=== PATIENT | female | born 1940 | race Caucasian/White ===

== ENCOUNTER → 2016-10-01 | Outpatient (CLI) | payer MEDICARE, MEDICAID ==
[~2016-10-01] MED LIST: ACET-2267 PO; AMLO5TAB2 PO; AZIT250T5 PO; CALC600T12 PO; CHOL378P3 PO; CITA10TA7 PO; DEXT1TAB3 PO; ESTR10TA VG; ESTR42.52 VG; FLUT9.9S NS; HYDR-3812 PO; LISI-552 PO; LORA0.5T PO; MELO-170 PO; MONT10TA24 PO; MULT-35 PO; OMEP20CA12 PO; ONDA8TAB9 PO; POLY17PO6 PO; PRAV40TA2 PO; QUET100T PO; RIVA1.5C6 PO
== END ==
LOC: PREOP 05:35
PROVIDERS: ATTEND Internal Medicine
DX: Z01.818 Encounter for other preprocedural examination (principal); K58.9 Irritable bowel syndrome, unspecified; R10.12 Left upper quadrant pain; R10.32 Left lower quadrant pain; Z86.010 Personal history of colon polyps

== ENCOUNTER 2016-10-03 06:43 | Day surgery (SDC) | payer MEDICARE, MEDICAID ==
[~2016-10-03] VITALS: Ht 160 cm; Wt 81.6 kg
[~2016-10-03 06:43] MED LIST changes: -ACET-2267 PO; -AMLO5TAB2 PO; -CALC600T12 PO; -CHOL378P3 PO; -CITA10TA7 PO; -DEXT1TAB3 PO; -ESTR10TA VG; -ESTR42.52 VG; -HYDR-3812 PO; -LISI-552 PO; -LORA0.5T PO; -MELO-170 PO; -MONT10TA24 PO; -MULT-35 PO; -OMEP20CA12 PO; -POLY17PO6 PO; -PRAV40TA2 PO; -QUET100T PO; -RIVA1.5C6 PO
[2016-10-03] MEDS ORDERED: 1/2 NS IV SOLUTION 1,000 ML IV STA (06:57)
[2016-10-03] MEDS ORDERED: LIDOCAINE JELLY 2% (XYLOCAINE) 5 ML TUBE MM PRN (07:00)
[2016-10-03] MEDS ORDERED: HURRICAINE EXT TUBE (BENZOCAINE) XX PRN (07:00)
[2016-10-03] MEDS ORDERED: MIDAZOLAM 2 MG/2 ML (VERSED) VIAL IVP PRN (07:00)
[2016-10-03] MEDS ORDERED: fentaNYL INJECTION 100 MCG/2 ML AMP IVP PRN (07:00)
[2016-10-03] MEDS ORDERED: FLUMAZENIL (ROMAZICON) 0.1 MG/ML 5 ML VIAL INJ PRN (07:00)
[2016-10-03] MEDS ORDERED: NALOXONE 0.4 MG/ML 1 ML (NARCAN) VIAL IVP PRN (07:00)
--- NOTE | 2016-10-03 07:10 | HISTORY AND PHYSICAL ---
DATE OF SERVICE: [facility] HISTORY AND PHYSICAL The patient is a 76-year-old, white female referred by Dr. Victoria for colonoscopy and EGD. She has a history of IBS and has been having increased left lower quadrant abdominal pain for the past 3 weeks. She has a past history for colon polyps and on her last colonoscopy several polyps were removed in 2009. It was performed in [facility]. She has also been having some left upper quadrant abdominal pain and has a history of perforated duodenal ulcer. She reports in the past, she has usually had an EGD at the time of her colonoscopy. At one time, she had to have her anastomotic margin dilated endoscopically. This was over 10 years ago. She has noted no blood in her stool or melena and denies weight change. She is a resident of [place], a local assisted living [facility]. She denies any medication change and has not been taking any aspirin. She apparently is on chronic proton pump inhibitor therapy. She is not on any aspirin therapy. She does take Meloxicam for arthritis and appears to be on no other potentially ulcerogenic medication. PAST SURGICAL HISTORY: Significant for past appendectomy, cholecystectomy, duodenal ulceration for perforation in 2005. She has had at least 1 nasal polyp removed and deviated septum taken care of. She has had total abdominal hysterectomy for benign reasons and has had right shoulder surgery. PAST MEDICAL HISTORY: Significant for hyperlipidemia and hypertension. She does have reported mild dementia for which she is on medication as she has a past history of generalized anxiety. SOCIAL HISTORY: She moved a little over a year ago from [facility], reports no past smoking history with occasional alcohol intake. It should also be noted that she does have some underlying COPD secondary to alpha-1 antitrypsin deficiency, is apparently mild and she has not required treatment at this point. FAMILY HISTORY: She knows that she has 1 sister who of pulmonary embolism at the age of 67. She is unsure of her parents family history, personal health history. MEDICATIONS ON ADMISSION: 1. Omeprazole 20 mg with breakfast. 2. Calcium 600 mg daily. 3. Multivitamin daily. 4. Citalopram 3 mg daily. 5. Meloxicam 7.5 mg daily. 6. MiraLax 17 grams daily. 7. Lorazepam 0.5 mg b.i.d. 8. Lisinopril 20 mg daily. 9. Rivastigmine 1.5 mg b.i.d. 10. Pravastatin 40 mg daily. 11. Singulair 10 mg daily. 12. Amlodipine 5 mg daily. 13. Seroquel 100 mg at bed time. 14. Questran 1 packet with fluid daily. 15. P.r.n. Tylenol. 16. Coricidin. 17. Hydrocodone 5 mg. 18. Estrace vaginal cream that she applies to the outer vaginal area at bed time. 19. She also uses Vagifem 2 times weekly 10 mcg. PHYSICAL EXAMINATION: Reveals an obese, white female who appears to be in no acute distress. Weight is 203.6 pounds. Blood pressure is 176/80 at the beginning of the interview. At the end of the interview, she was 148/72. CHEST: Clear. CARDIOVASCULAR: Regular rate and rhythm without murmur, S3 or S4. ABDOMEN: Soft, supple. She has left upper quadrant, as well as left lower quadrant and epigastric discomfort to palpation. There is some rebound in the left upper quadrant area. No mass or organomegaly are appreciated, but this is difficult to determine somewhat due to body habitus. EXTREMITIES: Reveal no clubbing, cyanosis or edema. ASSESSMENT: The patient is set up for diagnostic colonoscopy due to past history of colon polyps and left lower quadrant abdominal pain. She has required sedation in the form of Diprivan in the past due to her IBS and due to the fact that she is a difficult intubation. Apparently, she has required endoscopic guidance. Will be performing EGD for evaluation of her past history of peptic ulcer disease with current epigastric pain and risk factors for ulceration including SSRI therapy with Meloxicam. She is a pleasant, but talkative white female in review of her medical record, today's evaluation. 50 minutes of my personal care time has been spent with another 15-20 minutes of staff time in the setting of the procedure and going over the prep instructions with the patient. She was set up for this 10/03/2016. I thank you for the referral of this pleasant lady. Job ID: [id number] DocumentID: [id number] Dictated Date: 09/29/2016 20:59:34 Director Of Medical Services Date: 09/29/2016 21:55:58 Dictated By: LIZZY CORDOBA MD [facility]
[2016-10-03] MEDS ORDERED: MIDAZOLAM 2 MG/2 ML (VERSED) VIAL ONE (07:33)
[2016-10-03] MEDS ORDERED: PROPOFOL INJECTION 50 ML IV ONE (07:33)
[2016-10-03 07:36] VITALS: BP 140/76
[2016-10-03] MEDS ORDERED: CALC600T12 PO (07:41)
[2016-10-03] MEDS ORDERED: OMEP20CA12 PO (07:41)
--- NOTE | 2016-10-03 07:43 | Pre-Op Note & Conscious Sedat ---
Pre-Operative Progress Note H&P Reviewed The H&P was reviewed, patient examined and no changes noted. Date H&P Reviewed: Oct 03, 2016 Time H&P Reviewed: 07:42 Conscious Sedation Pre-Proced ASA Class: 2 Airway Mallampati Classification: ([place] appropriate class) I. II. III, IV Lungs Heart ASA score ASA 1: a normal healthy patient ASA 2: a patient with a mild systemic disease (mid diabetes, controlled hypertension, obesity ASA 3: a patient with a severe systemic disease that limits activity (angina , COPD, prior Myocardial infarction) ASA 4: a patient with an incapacitating disease that is a constant threat to life (CHF, renal failure) ASA 5: a moribund patient not expected to survive 24 hrs. (ruptured aneurysm) ASA 6: a declared brain patient whose organs are being harvested. For emergent operations, add the letter E after the classification Grade 3 Sedation Plan: Analgesia, Amnesia, Plan communicated to team members, Discussed options with patient/fam, Discussed risks with patient/fam Note The patient is an appropriate candidate to undergo the planned procedure, sedation, and anesthesia. The patient immediately re-assessed prior to indication. LIZZY CORDOBA MD Oct 03, 2016 07:43
[2016-10-03] MEDS ORDERED: HURRICAINE EXT TUBE (BENZOCAINE) ONE (07:48)
[2016-10-03] MEDS ORDERED: LIDOCAINE JELLY 2% (XYLOCAINE) 5 ML TUBE ONE (07:48)
[2016-10-03] MEDS ORDERED: MULT-35 PO (07:53)
[2016-10-03] MEDS ORDERED: PRAV40TA2 PO (07:53)
[2016-10-03] MEDS ORDERED: CHOL378P3 PO (07:53)
[2016-10-03] MEDS ORDERED: LORA0.5T PO (07:53)
[2016-10-03] MEDS ORDERED: ACET-2267 PO (07:53)
[2016-10-03] MEDS ORDERED: RIVA1.5C6 PO (07:53)
[2016-10-03] MEDS ORDERED: CITA10TA7 PO (07:53)
[2016-10-03] MEDS ORDERED: MONT10TA24 PO (07:53)
[2016-10-03] MEDS ORDERED: MELO-170 PO (07:53)
[2016-10-03] MEDS ORDERED: AMLO5TAB2 PO (07:53)
[2016-10-03] MEDS ORDERED: LISI-552 PO (07:53)
[2016-10-03] MEDS ORDERED: ESTR42.52 VG (07:58)
[2016-10-03] MEDS ORDERED: QUET100T PO (07:58)
[2016-10-03] MEDS ORDERED: ESTR10TA VG (07:58)
[2016-10-03] MEDS ORDERED: HYDR-3812 PO (07:58)
[2016-10-03] MEDS ORDERED: POLY17PO6 PO (07:58)
[2016-10-03] MEDS ORDERED: DEXT1TAB3 PO (07:58)
[2016-10-03 08:45] VITALS: BP 129/84
[2016-10-03 09:30] VITALS: BP 160/65
[2016-10-03 09:44] VITALS: BP 160/65
--- NOTE | 2016-10-03 16:16 | OPERATIVE REPORT ---
DATE OF SERVICE: 10/03/2016 PROCEDURE: [facility]. The patient underwent diagnostic colonoscopy due to history of left lower quadrant abdominal pain and a past history of colon polyps. EGD was performed for evaluation of left upper quadrant abdominal pain and a past history of duodenal ulceration with risk factors including chronic combined nonsteroidal therapy and SSRI therapy. The patient was placed in the left lateral decubitus position. Prior to undergoing colonoscopy, digital rectal evaluation was performed. Anal sphincter tone was normal and the perianal reflex was intact. Rectocele was noted on digital inspection with no other abnormalities being noted. The colonoscope was then inserted into the rectum and under direct visualization advanced to the cecum. The cecum was identified by the mucus in the ileocecal valve and the cecal strap and the appendiceal orifice. Photographic documentation was obtained. Careful inspection was made as the colonoscope was withdrawn. There was no evidence for internal or external hemorrhoids. The rectum was unremarkable. Mild diverticular disease was present with moderate haustral hypertrophy involving the sigmoid colon only. No other sigmoid colonic abnormalities were appreciated. There was no evidence to suggest diverticulitis. The descending colon, transverse colon and hepatic flexure were unremarkable. There was questionable sessile polyp just distal to the ileocecal valve in the distal ascending colon. Photograph was obtained and then biopsy and cauterization was performed with a hot forceps. There was no subsequent bleeding. The cecum of the colon was unremarkable. ASSESSMENT: 1. Mild diverticular disease confined to the sigmoid colon was present without evidence for diverticulitis. 2. Questionable sessile polyp in the proximal ascending colon just distal to the ileocecal valve for which the patient underwent biopsy and cauterization with hot forceps. As long as there are no surprised on histopathology report, would not be advocating future surveillance colonoscopy considering this patient's age and medical comorbidities. We then proceeded with an EGD. The endoscope was inserted into the oral cavity and under direct visualization the esophagus was intubated. The endoscope was passed down the esophagus to the stomach and second portion of the duodenum. Careful inspection was made as the endoscope was withdrawn. The posterior hypopharynx, arytenoid aperture and true and false vocal folds were unremarkable. 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 The patient did have what appeared to be an upper traction diverticulum in the proximal esophagus. There was no retained food. It was relatively small in size. Tortuosity was present throughout the remainder of the esophagus which was otherwise unremarkable. The Z-line was proximally placed at 30 cm due to a large hiatal hernia. Approximately a third of the stomach is present above the level of the diaphragm. There was no evidence for erosive esophagitis or Holland's change. The cardia of the stomach was unremarkable. Present in the distal fundus was an 8 mm polyp with fundal features. It was photographed and biopsied and ablated with no significant blood loss. One other smaller fundal-type polyp was noted on the left. The remainder of the antrum, pylorus, pyloric channel, duodenal bulb and second portion of the duodenum were unremarkable with no evidence for peptic ulcer disease. ASSESSMENT: 1. A large hiatal hernia is present with approximately one-third of the stomach being present above the level of the diaphragm. There is no evidence for erosive esophagitis or Holland's change to visual inspection. 2. A fundal-appearing polyp was removed from the antrum via hot forceps and submitted for histopathology. There was no evidence for peptic ulcer disease on today's evaluation. The patient was reassured by today's findings. I thank you for the referral. Job ID: [id number] DocumentID: [id number] Dictated Date: 10/03/2016 08:36:22 Popcorn Vendor Date: 10/03/2016 16:15:50 Dictated By: LIZZY CORDOBA MD [facility]
== END 2016-10-03 09:51 | disposition home or self-care (01) ==
LOC: ENDO 06:43
PROVIDERS: ATTEND Internal Medicine
DX: K63.5 Polyp of colon (principal); K57.30 Diverticulosis of large intestine without perforation or abscess without bleeding; K21.9 Gastro-esophageal reflux disease without esophagitis; K44.9 Diaphragmatic hernia without obstruction or gangrene; K31.7 Polyp of stomach and duodenum
CPT/HCPCS: 88305

== ENCOUNTER → 2016-11-04 | Outpatient (CLI) | payer MEDICARE, MEDICAID ==
[~2016-11-04] MED LIST changes: +ACET-2267 PO; +AMLO5TAB2 PO; +CALC600T12 PO; +CHOL378P3 PO; +CITA10TA7 PO; +DEXT1TAB3 PO; +ESTR10TA VG; +ESTR42.52 VG; +HYDR-3812 PO; +LISI-552 PO; +LORA0.5T PO; +MELO-170 PO; +MONT10TA24 PO; +MULT-35 PO; +OMEP20CA12 PO; +POLY17PO6 PO; +PRAV40TA2 PO; +QUET100T PO; +RIVA1.5C6 PO
== END ==
LOC: RAD 13:28
PROVIDERS: ATTEND Obstetrics & Gynecology
DX: Z12.31 Encounter for screening mammogram for malignant neoplasm of breast (principal)
CPT/HCPCS: 77067

== ENCOUNTER → 2017-05-21 | Outpatient (CLI) | payer MEDICARE, MEDICAID ==
[~2017-05-21] MED LIST changes: +AZIT250T12 PO; -AZIT250T5 PO
--- NOTE | 2017-05-21 11:40 | Diagnostic Imaging Report ---
EXAMINATION: DEXA scan. INDICATION: Osteopenia. TECHNIQUE: Bone mineral density estimated based on dual energy radiography over the lumbar spine and femoral necks, was performed. FINDINGS: The lumbar spine T-score is -2. T score over the left femoral neck is -1.1 and on the right side is -1.5. IMPRESSION: Osteopenia. Dictated by: Dictated on workstation # [id number]
== END ==
LOC: RAD 10:29
PROVIDERS: ATTEND Internal Medicine
DX: M85.88 Other specified disorders of bone density and structure, other site (principal); M48.50XA Collapsed vertebra, not elsewhere classified, site unspecified, initial encounter for fracture
CPT/HCPCS: 77080

== ENCOUNTER 2017-07-13 11:01 | Inpatient (IN) | payer MEDICARE, MEDICAID ==
[~2017-07-13] VITALS: Ht 160 cm; Wt 92.6 kg
[2017-07-13] VITALS (10 sets, daily range): BP systolic 102–166; BP diastolic 47–122
[~2017-07-13 11:01] MED LIST changes: +ACHD5005 PO; -HYDR-3812 PO
--- OUTSIDE RECORDS SUMMARY | 2017-07-13 11:07 | XMS REPORT ---
Author Author ESTEFANIA CLEMENTE [facility] Address [address] [place] [address] Care Team Providers Care Process Consultant Name Role Phone ESTEFANIA CLEMENTE Unavailable PROBLEMS Type Condition ICD9-CM Code [id number] Code Onset Dates Condition Status SNOMED Code Problem Asthma J45.909 Active 176896665 Problem Irritable bowel syndrome with diarrhea K58.0 Active 816576750 Problem Hypertension I10 Active 55914219 Problem Adenomatous polyp of colon, unspecified part of colon D12.6 Active 619608410 Problem Reactive depression F32.9 Active 16050897 Problem Seborrheic keratoses L82.1 Active 397279539 Problem Chronic post-traumatic headache, not intractable G44.329 Active 004188000 Problem Degenerative disc disease, 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 Active 87957205 Problem Asthma exacerbation J45.901 Active 180545524 Problem Shortness of breath R06.02 Active 135264090 Problem Pneumonia J18.9 Active 809403832 Problem Memory loss R41.3 Active 65464810 Problem Anxiety F41.9 Active 39492258 Problem Arthritis M19.90 Active 0946905 Problem Fatigue R53.83 Active 65129779 Problem GERD (gastroesophageal reflux disease) K21.9 Active 133002429 ALLERGIES Substance Reaction Event Type Date Status Tetracycline HCl Unknown Drug Allergy Jun, Active Penicillin G Potassium Unknown Drug Allergy Jun, Active Paxil Unknown Drug Allergy Jun, Active Morphine Sulfate Unknown Drug Allergy Jun, Active Ketorolac Tromethamine Unknown Drug Allergy Jun, Active SOCIAL HISTORY No smoking Hx information available PLAN OF CARE Activity Details Follow Up 3 Weeks Reason: VITAL SIGNS Height 63 in 2016-07-07 Weight 191.7 lbs 2016-07-07 Temperature 98.4 degrees Fahrenheit 2016-07-07 Heart Rate 80 bpm 2016-07-07 Respiratory Rate 20 2016-07-07 Oximetry 98 % 2016-07-07 BMI 33.95 kg/m2 2016-07-07 Blood pressure systolic 150 mmHg 2016-07-07 Blood pressure diastolic 90 mmHg 2016-07-07 MEDICATIONS Medication Instructions Dosage Frequency Start Date End Date Duration Status Sylvia HBP Congestion/Cough 10-200 MG Orally every 4 hrs 1 capsule as needed 4h Active Rivastigmine Tartrate 1.5 MG Orally Twice a day 1 capsule with food 12h Active Montelukast Sodium 10 MG Orally Once a day 1 tablet in the evening 24h Active Melatonin 3 MG Orally Once a day 1 tablet at bedtime as needed with food 24h Active Vagifem 10 MCG Vaginal Two times a Week 1 tablet Active Pravastatin Sodium 40 MG Orally Once a day 1 tablet 24h Active Benadryl 25 MG Active Lisinopril 20 mg Orally BID 1 tablet 12h Active Questran 4 GM Orally Once a day 1 packet mixed with water or non-carbonated drink 24h Nov, Active Multivitamin Adults 50+ Active Tylenol 8 Hour 500 mg Orally every 4 hours as needed Active Calcium + D3 600.400 mg Active Amlodipine Besylate 5 mg Orally Once a day 1 tablet 24h Active Mobic 7.5 MG Orally Once a day 1 tablet 24h Jan, Active Citalopram Hydrobromide 20 MG Orally Once a day 1 tablet 24h Active Estrace 0.1 MG/GM Active Omeprazole 20 mg Orally Once a day 1 capsules 24h Active Flonase Allergy Relief 50 MCG/ACT Nasally Once a day 1 spray in each nostril 24h Active Lorazepam 1 MG Orally 2 times a day and PRN for anxiousness 1/2 tablet as needed Active RESULTS No Results PROCEDURES Procedure Date Ordered Related Diagnosis Body Site MEASURE BLOOD OXYGEN LEVEL Jul 07, 2016 [facility] VISIT ESTABLISHED PATIENT Jul 07, 2016 Office Visit, Est Pt., Level 3 Jul 07, 2016 IMMUNIZATIONS No Known Immunizations
--- OUTSIDE RECORDS SUMMARY | 2017-07-13 11:07 | XMS REPORT ---
Author Author ESTEFANIA CLEMENTE [facility] Address [address] [place] [address] Care Team Providers Care Health Advocate Name Role Phone ESTEFANIA CLEMENTE Unavailable PROBLEMS Type Condition ICD9-CM Code [id number] Code Onset Dates Condition Status SNOMED Code Problem Asthma J45.909 Active 896087491 Problem Irritable bowel syndrome with diarrhea K58.0 Active 419322925 Problem Hypertension I10 Active 13053887 Problem Adenomatous polyp of colon, unspecified part of colon D12.6 Active 907605439 Problem Reactive depression F32.9 Active 22983127 Problem Seborrheic keratoses L82.1 Active 068705390 Problem Chronic post-traumatic headache, not intractable G44.329 Active 725272563 Problem Degenerative disc disease, 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 Active 27985489 Problem Asthma exacerbation J45.901 Active 101410094 Problem Shortness of breath R06.02 Active 579028566 Problem Pneumonia J18.9 Active 447141899 Problem Memory loss R41.3 Active 20339474 Problem Anxiety F41.9 Active 37344828 Problem Arthritis M19.90 Active 5080160 Problem Fatigue R53.83 Active 92259814 Problem GERD (gastroesophageal reflux disease) K21.9 Active 173629113 ALLERGIES Unknown Allergies SOCIAL HISTORY No smoking Hx information available PLAN OF CARE VITAL SIGNS MEDICATIONS Unknown Medications RESULTS No Results PROCEDURES No Known procedures IMMUNIZATIONS No Known Immunizations
--- OUTSIDE RECORDS SUMMARY | 2017-07-13 11:07 | XMS REPORT ---
Author Author ESTEFANIA CLEMENTE [facility] Address [address] [place] [address] Care Team Providers Care Rn Medicare Name Role Phone ESTEFANIA CLEMENTE Unavailable PROBLEMS Type Condition ICD9-CM Code [id number] Code Onset Dates Condition Status SNOMED Code Problem Asthma J45.909 Active 280439467 Problem Irritable bowel syndrome with diarrhea K58.0 Active 841431575 Problem Hypertension I10 Active 98609119 Problem Adenomatous polyp of colon, unspecified part of colon D12.6 Active 758087258 Problem Reactive depression F32.9 Active 40934584 Problem Seborrheic keratoses L82.1 Active 613727243 Problem Chronic post-traumatic headache, not intractable G44.329 Active 930950443 Problem Degenerative disc disease, 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 Active 66524652 Problem Asthma exacerbation J45.901 Active 593613942 Problem Shortness of breath R06.02 Active 089430101 Problem Pneumonia J18.9 Active 049760916 Problem Memory loss R41.3 Active 21215405 Problem Anxiety F41.9 Active 33451723 Problem Arthritis M19.90 Active 8768749 Problem Fatigue R53.83 Active 18291484 Problem GERD (gastroesophageal reflux disease) K21.9 Active 609775813 ALLERGIES Substance Reaction Event Type Date Status Tetracycline HCl Unknown Drug Allergy Jun, Active Penicillin G Potassium Unknown Drug Allergy Jun, Active Paxil Unknown Drug Allergy Jun, Active Morphine Sulfate Unknown Drug Allergy Jun, Active Ketorolac Tromethamine Unknown Drug Allergy Jun, Active SOCIAL HISTORY No smoking Hx information available PLAN OF CARE Activity Details Follow Up 3 Months Reason: VITAL SIGNS Height 63 in 2016-06-12 Weight 193.8 lbs 2016-06-12 Temperature 99.0 degrees Fahrenheit 2016-06-12 Heart Rate 68 bpm 2016-06-12 Respiratory Rate 18 2016-06-12 Oximetry 98 % 2016-06-12 BMI 34.33 kg/m2 2016-06-12 Blood pressure systolic 140 mmHg 2016-06-12 Blood pressure diastolic 76 mmHg 2016-06-12 MEDICATIONS Medication Instructions Dosage Frequency Start Date End Date Duration Status Calcium + D3 600.400 mg Active Mobic 7.5 MG Orally Once a day 1 tablet 24h Jan, Active Montelukast Sodium 10 MG Orally Once a day 1 tablet in the evening 24h Active Pravastatin Sodium 40 MG Orally Once a day 1 tablet 24h Active Questran 4 GM Orally Once a day 1 packet mixed with water or non-carbonated drink 24h Nov, Active Lorazepam 1 MG Orally Once a day 24h Active Amlodipine Besylate 5 mg Orally Once a day 1 tablet 24h Active Multivitamin Adults 50+ Active Lorazepam 1 MG Orally Once a day at HS 1/2 tablet as needed Active Lisinopril 20 mg Orally BID 1 tablet 12h Active Benadryl 25 MG Active Tylenol 8 Hour 500 mg Orally every 4 hours as needed Active Melatonin 3 MG Orally Once a day 1 tablet at bedtime as needed with food 24h Active Omeprazole 20 mg Orally Once a day 1 capsules 24h Active Citalopram Hydrobromide 20 MG Orally Once a day 1 tablet 24h Active Rivastigmine Tartrate 3 MG Orally Twice a day 1 capsule with food 12h Active RESULTS No Results PROCEDURES Procedure Date Ordered Related Diagnosis Body Site MEASURE BLOOD OXYGEN LEVEL Jun 12, 2016 [facility] VISIT ESTABLISHED PATIENT Jun 12, 2016 Office Visit, Est Pt., Level 3 Jun 12, 2016 IMMUNIZATIONS No Known Immunizations
--- OUTSIDE RECORDS SUMMARY | 2017-07-13 11:08 | XMS REPORT | Continuity of Care Document ---
Author Author [facility] Organization [facility] Address Unknown Phone Unavailable Allergies Active Description Code Type Severity Reaction Onset Reported/Identified Relationship to Patient Clinical Status Yes ketorolac [id number] Drug Allergy Mild N/A 08/13/2015 Yes morphine [id number] Drug Allergy Mild N/A 08/13/2015 Yes Penicillins [id number] Drug Allergy Mild N/A 08/13/2015 Yes tetracycline [id number] Drug Allergy Mild N/A 08/13/2015 Yes paroxetine [id number] Drug Allergy Unknown N/A 02/24/2016 Medications There is no data. Problems Date Dx Coded Attending Type Code Diagnosis Diagnosed By 08/13/2015 VARGAS DURAND DO Ot F41.9 ANXIETY DISORDER, UNSPECIFIED 08/13/2015 KIZZY LEONG, VARGAS L Ot I51.7 CARDIOMEGALY 08/13/2015 KIZZY LEONG, VARGAS L Ot J40 BRONCHITIS, NOT SPECIFIED ACUTE OR CH 08/13/2015 KIZZY LEONG VARGAS L Ot K21.9 GASTRO-ESOPHAGEAL REFLUX DISEASE WITHOUT 08/19/2015 KIZZY LEONG, VARGAS L Ot F41.9 08/19/2015 KIZZY DO, VARGAS L Ot I51.7 08/19/2015 KIZZY LEONG, VARGAS L Ot J40 08/19/2015 KIZZY LEONG VARGAS L Ot K21.9 11/24/2015 ODILIA LAKE DO, Ot F41.9 ANXIETY DISORDER, UNSPECIFIED 11/24/2015 ODILIA LAKE DO Ot S01.112A LACERATION W/O FB OF LEFT EYELID AND PER 11/24/2015 ODILIA LAKE DO Ot S02.8XXA FRACTURES OF OTH SKULL AND FACIAL BONES, 11/24/2015 ODILIA LAKE DO Ot S06.0X0A CONCUSSION WITHOUT LOSS OF CONSCIOUSNESS 11/24/2015 ODILIA LAKE DO Ot W17.89XA OTHER FALL FROM ONE LEVEL TO ANOTHER, IN 11/24/2015 [facility], ODILIA K Ot Y92.[address] IN SINGLE-FAMILY (PRIVATE) JUANCARLOS 11/24/2015 JAYA , ODILIA K Ot Y99.8 OTHER EXTERNAL CAUSE STATUS 11/26/2015 [place] , ODILIA Baptiste Ot F41.9 ANXIETY DISORDER, UNSPECIFIED 11/26/2015 [place] DO, ODILIA K Ot S01.112A LACERATION W/O FB OF LEFT EYELID AND PER 11/26/2015 [place] DO, ODILIA K Ot S02.8XXA FRACTURES OF OTH SKULL AND FACIAL BONES, 11/26/2015 [place] DO, ODILIA K Ot S06.0X0A CONCUSSION WITHOUT LOSS OF CONSCIOUSNESS 11/26/2015 [facility], ODILIA K Ot W17.89XA OTHER FALL FROM ONE LEVEL TO ANOTHER, IN 11/26/2015 [facility], ODILIA K Ot Y92.[address] IN SINGLE-FAMILY (PRIVATE) JUANCARLOS 11/26/2015 JAYA , ODILIA K Ot Y99.8 OTHER EXTERNAL CAUSE STATUS 12/07/2015 [place] , ODILIA Baptiste Ot F41.9 ANXIETY DISORDER, UNSPECIFIED 12/07/2015 [place] DO, ODILIA K Ot S01.112A LACERATION W/O FB OF LEFT EYELID AND PER 12/07/2015 [facility], ODILIA K Ot S02.8XXA FRACTURES OF OTH SKULL AND FACIAL BONES, 12/07/2015 [facility], ODILIA K Ot S06.0X0A CONCUSSION WITHOUT LOSS OF CONSCIOUSNESS 12/07/2015 [facility], ODILIA K Ot W17.89XA OTHER FALL FROM ONE LEVEL TO ANOTHER, IN 12/07/2015 [facility], ODILIA K Ot Y92.[address] IN SINGLE-FAMILY (PRIVATE) JUANCARLOS 12/07/2015 JAYA , ODILIA K Ot Y99.8 OTHER EXTERNAL CAUSE STATUS 01/02/2016 JUANJO KEATING, DARCI P Ot 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 01/02/2016 JUANJO KEATING, DARCI P Ot R51 HEADACHE 01/07/2016 JUANJO KEATING, DARCI Hartmann Ot 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 01/07/2016 JUANJO KEATING, DARCI P Ot R51 HEADACHE 01/07/2016 JUANJO KEATING, DARCI Hartmann Ot 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 01/07/2016 JUANJO KEATING, DARCI P Ot R51 HEADACHE 01/22/2016 JUANJO KEATING, DARCI P Ot 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 01/22/2016 JUANJO KEATING, DARCI P Ot R51 HEADACHE 01/30/2016 JUANOJ KEATING, DARCI P Ot 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 01/30/2016 JUANJO KEATING, DARCI P Ot R51 HEADACHE 02/07/2016 JUANJO KEATING, DARCI P Ot 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 02/07/2016 JUANJO KEATING, DARCI P Ot R51 HEADACHE 02/24/2016 BOYD KEATING, SPIKE T Ot F41.9 ANXIETY DISORDER, UNSPECIFIED 02/24/2016 BOYD KEATING, SPIKE T Ot I10 ESSENTIAL (PRIMARY) HYPERTENSION 02/24/2016 BOYD KEATING, SPIKE T Ot R51 HEADACHE 02/25/2016 BOYD KEATING, SPIKE T Ot F41.9 ANXIETY DISORDER, UNSPECIFIED 02/25/2016 BOYD KEATING, SPIKE T Ot I10 ESSENTIAL (PRIMARY) HYPERTENSION 02/25/2016 BOYD KEATING, SPIKE T Ot R51 HEADACHE 03/08/2016 BOYD KEATING, SPIKE T Ot F41.9 ANXIETY DISORDER, UNSPECIFIED 03/08/2016 BOYD KEATING, SPIKE T Ot I10 ESSENTIAL (PRIMARY) HYPERTENSION 03/08/2016 BOYD KEATING, SPIKE T Ot R51 HEADACHE 10/03/2016 JUANJO KEATING, DARCI P Ot 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 10/03/2016 JUANJO KEATING, DARCI P Ot R51 HEADACHE 10/03/2016 BERYL KEATING, LIZZY Aguilar Ot K58.9 IRRITABLE BOWEL SYNDROME WITHOUT DIARRHE 10/03/2016 BERYL KEATING, LIZZY Aguilar Ot R10.12 LEFT UPPER QUADRANT PAIN 10/03/2016 BERYL KEATING, LIZZY Aguilar Ot R10.32 LEFT LOWER QUADRANT PAIN 10/03/2016 BERYL KEATING, LIZZY Aguilar Ot Z01.818 ENCOUNTER FOR OTHER PREPROCEDURAL EXAMIN 10/03/2016 BERYL KEATING, LIZZY Aguilar Ot Z86.010 PERSONAL HISTORY OF COLONIC POLYPS 10/03/2016 JUANJO KEATING, DARCI P Ot 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 10/03/2016 JUANJO KEATING, DARCI P Ot R51 HEADACHE 10/03/2016 BERYL KEATING, LIZZY Aguilar Ot K58.9 IRRITABLE BOWEL SYNDROME WITHOUT DIARRHE 10/03/2016 LIZZY CORDOBA MD Ot R10.12 LEFT UPPER QUADRANT PAIN 10/03/2016 LIZZY CORDOBA MD Ot R10.32 LEFT LOWER QUADRANT PAIN 10/03/2016 LIZZY CORDOBA MD Ot Z01.818 ENCOUNTER FOR OTHER PREPROCEDURAL EXAMIN 10/03/2016 LIZZY CORDOBA MD Ot Z86.010 PERSONAL HISTORY OF COLONIC POLYPS 10/03/2016 LIZZY CORDOBA MD Ot K21.9 GASTRO-ESOPHAGEAL REFLUX DISEASE WITHOUT 10/03/2016 LIZZY CORDOBA MD Ot K31.7 POLYP OF STOMACH AND DUODENUM 10/03/2016 LIZZY CORDOBA MD Ot K44.9 DIAPHRAGMATIC HERNIA WITHOUT OBSTRUCTION 10/03/2016 LIZZY CORDOBA MD Ot K57.30 DVRTCLOS OF LG INT W/O PERFORATION OR AB 10/03/2016 LIZZY CORDOBA MD Ot K63.5 POLYP OF COLON 10/07/2016 LIZZY CORDOBA MD Ot K21.9 GASTRO-ESOPHAGEAL REFLUX DISEASE WITHOUT 10/07/2016 LIZZY CORDOBA MD Ot K31.7 POLYP OF STOMACH AND DUODENUM 10/07/2016 LIZZY CORDOBA MD Ot K44.9 DIAPHRAGMATIC HERNIA WITHOUT OBSTRUCTION 10/07/2016 LIZZY CORDOBA MD Ot K57.30 DVRTCLOS OF LG INT W/O PERFORATION OR AB 10/07/2016 LIZZY CORDOBA MD Ot K63.5 POLYP OF COLON 10/09/2016 LIZZY CORDOBA MD Ot K21.9 GASTRO-ESOPHAGEAL REFLUX DISEASE WITHOUT 10/09/2016 LIZZY CORDOBA MD Ot K31.7 POLYP OF STOMACH AND DUODENUM 10/09/2016 LIZZY CORDOBA MD Ot K44.9 DIAPHRAGMATIC HERNIA WITHOUT OBSTRUCTION 10/09/2016 LIZZY CORDOBA MD Ot K57.30 DVRTCLOS OF LG INT W/O PERFORATION OR AB 10/09/2016 LIZZY CORDOBA MD Ot K63.5 POLYP OF COLON 10/09/2016 LIZZY CORDOBA MD Ot K21.9 GASTRO-ESOPHAGEAL REFLUX DISEASE WITHOUT 10/09/2016 LIZZY CORDOBA MD Ot K31.7 POLYP OF STOMACH AND DUODENUM 10/09/2016 LIZZY CORDOBA MD Ot K44.9 DIAPHRAGMATIC HERNIA WITHOUT OBSTRUCTION 10/09/2016 LIZZY CORDOBA MD Ot K57.30 DVRTCLOS OF LG INT W/O PERFORATION OR AB 10/09/2016 LIZZY CORDOBA MD Ot K63.5 POLYP OF COLON 10/31/2016 LOY HUGHES DO Ot Z12.39 ENCOUNTER FOR OTH SCREENING FOR MALIGNAN 10/31/2016 LOY HUGHES DO Ot Z12.31 ENCNTR SCREEN MAMMOGRAM FOR MALIGNANT NE 10/31/2016 LOY HUGHES DO Ot Z12.31 ENCNTR SCREEN MAMMOGRAM FOR MALIGNANT NE 11/04/2016 DARCI GEIGER MD Ot 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 11/04/2016 DARCI GEIGER MD Ot R51 HEADACHE 11/04/2016 LIZZY CORDOBA MD Ot K58.9 IRRITABLE BOWEL SYNDROME WITHOUT DIARRHE 11/04/2016 LIZZY CORDOBA MD Ot R10.12 LEFT UPPER QUADRANT PAIN 11/04/2016 LIZZY CORDOBA MD Ot R10.32 LEFT LOWER QUADRANT PAIN 11/04/2016 LIZZY CORDOBA MD Ot Z01.818 ENCOUNTER FOR OTHER PREPROCEDURAL EXAMIN 11/04/2016 LIZZY CORDOBA MD Ot Z86.010 PERSONAL HISTORY OF COLONIC POLYPS 11/04/2016 LOY HUGHES DO Ot Z12.31 ENCNTR SCREEN MAMMOGRAM FOR MALIGNANT NE 11/25/2016 LOY HUGHES DO Ot Z12.31 ENCNTR SCREEN MAMMOGRAM FOR MALIGNANT NE 12/25/2016 LOY HUGHES DO Ot Z12.31 ENCNTR SCREEN MAMMOGRAM FOR MALIGNANT NE 04/15/2017 ESTEFANIA CLEMENTE MD Ot M48.50XA COLLAPSED VERTEBRA, NEC, SITE UNSP, INIT 04/28/2017 ESTEFANIA CLEMENTE MD Ot M48.50XA COLLAPSED VERTEBRA, NEC, SITE UNSP, INIT 05/20/2017 ESTEFANIA CLEMENTE MD Ot M48.50XA COLLAPSED VERTEBRA, NEC, SITE UNSP, INIT 05/20/2017 LIZZY CORDOBA MD Ot K58.9 IRRITABLE BOWEL SYNDROME WITHOUT DIARRHE 05/20/2017 LIZZY CORDOBA MD Ot R10.12 LEFT UPPER QUADRANT PAIN 05/20/2017 LIZZY CORDOBA MD Ot R10.32 LEFT LOWER QUADRANT PAIN 05/20/2017 LIZZY CORDOBA MD Ot Z01.818 ENCOUNTER FOR OTHER PREPROCEDURAL EXAMIN 05/20/2017 BERYL KEATING, LIZZY Aguilar Ot Z86.010 PERSONAL HISTORY OF COLONIC POLYPS 05/20/2017 ELLEN LEONG, LOY Dao Ot Z12.31 ENCNTR SCREEN MAMMOGRAM FOR MALIGNANT NE 05/20/2017 BRYN KEATING, ESTEFANIA Dodd Ot M48.50XA COLLAPSED VERTEBRA, NEC, SITE UNSP, INIT 06/11/2017 ESTEFANIA CLEMENTE MD, Ot M48.50XA COLLAPSED VERTEBRA, NEC, SITE UNSP, INIT 06/11/2017 BRYN KEATING, ESTEFANIA Dodd Ot M85.88 [facility] DISRD OF BONE DENSITY AND STRUCTURE, 06/19/2017 ESTEFANIA CLEMENTE MD, Ot M48.50XA COLLAPSED VERTEBRA, NEC, SITE UNSP, INIT 06/19/2017 ESTEFANIA CLEMENTE MD, Ot M85.88 [facility] DISRD OF BONE DENSITY AND STRUCTURE, Procedures There is no data. Results Test Result Range Complete blood count (CBC) with automated white blood cell (WBC) differential - 02/24/16 20:33 Blood leukocytes automated count (number/volume) 11.9 10*3/uL 4.3-11.0 Blood erythrocytes automated count (number/volume) 4.47 10*6/uL 4.35-5.85 Venous blood hemoglobin measurement (mass/volume) 13.5 g/dL 11.5-16.0 Blood hematocrit (volume fraction) 39 % 35-52 Automated erythrocyte mean corpuscular volume 87 [foz_us] 80-99 Automated erythrocyte mean corpuscular hemoglobin (mass per erythrocyte) 30 pg 25-34 Automated erythrocyte mean corpuscular hemoglobin concentration measurement ( mass/volume) 35 g/dL 32-36 Automated erythrocyte distribution width ratio 13.8 % 10.0-14.5 Automated blood platelet count (count/volume) 416 10*3/uL 130-400 Automated blood platelet mean volume measurement 9.4 [foz_us] 7.4-10.4 Automated blood neutrophils/100 leukocytes 49 % 42-75 Automated blood lymphocytes/100 leukocytes 39 % 12-44 Blood monocytes/100 leukocytes 8 % 0-12 Automated blood eosinophils/100 leukocytes 3 % 0-10 Automated blood basophils/100 leukocytes 1 % 0-10 Blood neutrophils automated count (number/volume) 5.8 10*3 1.8-7.8 Blood lymphocytes automated count (number/volume) 4.7 10*3 1.0-4.0 Blood monocytes automated count (number/volume) 1.0 10*3 0.0-1.0 Automated eosinophil count 0.4 10*3/uL 0.0-0.3 Automated blood basophil count (count/volume) 0.1 10*3/uL 0.0-0.1 Whole blood basic metabolic panel - 02/24/16 20:33 Serum or plasma sodium measurement (moles/volume) 134 mmol/L 135-145 Serum or plasma potassium measurement (moles/volume) 4.0 mmol/L 3.6-5.0 Serum or plasma chloride measurement (moles/volume) 100 mmol/L 98-107 Carbon dioxide 19 mmol/L 21-32 Serum or plasma anion gap determination (moles/volume) 15 mmol/L 5-14 Serum or plasma urea nitrogen measurement (mass/volume) 16 mg/dL 7-18 Serum or plasma creatinine measurement (mass/volume) 0.85 mg/dL 0.60-1.30 Serum or plasma urea nitrogen/creatinine mass ratio 19 NRG Serum or plasma creatinine measurement with calculation of estimated glomerular filtration rate > NRG Serum or plasma glucose measurement (mass/volume) 97 mg/dL 70-105 Serum or plasma calcium measurement (mass/volume) 10.1 mg/dL 8.5-10.1 Serum or plasma thyrotropin measurement by detection limit <=0.05 miu/l (units/ volume) - 02/24/16 20:33 Serum or plasma thyrotropin measurement by detection limit <=0.05 miu/l (units/ volume) 2.31 u[iU]/mL 0.35-4.94 Complete urinalysis with reflex to culture - 02/24/16 21:04 Urine color determination YELLOW NRG Urine clarity determination CLEAR NRG Urine pH measurement by test strip 8 5-9 Specific gravity of urine by test strip 1.010 1.016- 1.022 Urine protein assay by test strip, semi-quantitative 2+ NEGATIVE Urine glucose detection by automated test strip NEGATIVE NEGATIVE Erythrocytes detection in urine sediment by light microscopy NEGATIVE NEGATIVE Urine ketones detection by automated test strip NEGATIVE NEGATIVE Urine nitrite detection by test strip NEGATIVE NEGATIVE Urine total bilirubin detection by test strip NEGATIVE NEGATIVE Urine urobilinogen measurement by automated test strip (mass/volume) NORMAL NORMAL Urine leukocyte esterase detection by dipstick NEGATIVE NEGATIVE Automated urine sediment erythrocyte count by microscopy (number/high power field) NONE NRG Automated urine sediment leukocyte count by microscopy (number/high power field ) NONE NRG Bacteria detection in urine sediment by light microscopy NEGATIVE NRG Squamous epithelial cells detection in urine sediment by light microscopy RARE NRG Crystals detection in urine sediment by light microscopy NONE NRG Casts detection in urine sediment by light microscopy NONE NRG Mucus detection in urine sediment by light microscopy NEGATIVE NRG Complete urinalysis with reflex to culture NO NRG Encounters ACCT No. Visit Date/Time Discharge Status Pt. Type Provider Facility Loc./Unit Complaint [id number] 05/21/2017 10:29:00 05/21/2017 23:59:59 CLS Outpatient BRYN KEATING, ESTEFANIA Dodd [facility] RAD M48.50XA [id number] 11/04/2016 13:28:00 11/04/2016 23:59:59 CLS Outpatient LOY HUGHES DO [facility] RAD Z12.39 [id number] 10/03/2016 06:43:00 10/03/2016 09:51:00 DIS Outpatient LIZZY CORDOBA MD [facility] ENDO IBS, LUQ/LLQ PAIN, HX COLON POLYPS [id number] 10/01/2016 05:35:00 10/01/2016 23:59:59 CLS Outpatient LIZZY CORDOBA MD [facility] PREOP ISB,LUQ PAIN,LLQ PAIN [id number] 02/24/2016 20:27:00 02/24/2016 23:00:00 DIS Emergency BOYD KEATING, SPIKE Bernal [facility] ER HTN [id number] 01/01/2016 07:49:00 01/01/2016 23:59:59 CLS Outpatient JUANJO KEATING, DARCI Hartmann [facility] RAD HEADACHE,DIPLOPIA [id number] 11/23/2015 23:30:00 11/24/2015 01:26:00 DIS Emergency ODILIA LAKE DO [facility] ER LAWSON,VOMITING,ANXIETY [id number] 08/13/2015 12:43:00 08/13/2015 14:13:00 DIS Emergency VARGAS DURAND DO [facility] ER IRR HEART RATE [id number] 07/13/2017 11:02:00 ACT Emergency ODILIA LAKE DO [facility] ER BRADYCARDIA
[2017-07-13 11:26] LABS: BASOPHILS % (AUTO) 0 % (0-10); EOSINOPHILS # (AUTO) 0.1 10^3/uL (0.0-0.3); EOSINOPHILS % (AUTO) 1 % (0-10); HEMATOCRIT 40 % (35-52); HEMOGLOBIN 13.7 G/DL (11.5-16.0); LYMPHOCYTES # (AUTO) 3.7 X 10^3 (1.0-4.0); LYMPHOCYTES % (AUTO) 18 % (12-44); MEAN CORPUSCULAR HEMOGLOBIN 31 PG (25-34); MEAN CORPUSCULAR HGB CONC 35 G/DL (32-36); MEAN CORPUSCULAR VOLUME 89 FL (80-99); MEAN PLATELET VOLUME 9.3 FL (7.4-10.4); MONOCYTES # (AUTO) 1.1 X 10^3 (0.0-1.0); MONOCYTES % (AUTO) 6 % (0-12); NEUTROPHILS # (AUTO) 15.1 X 10^3 (1.8-7.8); NEUTROPHILS % (AUTO) 75 % (42-75); PLATELET COUNT 478 10^3/uL (130-400); RED BLOOD COUNT 4.42 10^6/uL (4.35-5.85); RED CELL DISTRIBUTION WIDTH 13.9 % (10.0-14.5); WHITE BLOOD COUNT 20.1 10^3/uL (4.3-11.0)
[2017-07-13 11:35] LABS: PROTHROMBIN TIME PATIENT 13.2 SEC (12.2-14.7)
--- NOTE | 2017-07-13 11:35 | ED Cardiac General ---
History of Present Illness General Chief Complaint: Cardiac/General Problems Stated Complaint: BRADYCARDIA Source: patient (SOMEWHAT VAGUE/DIFFICULT HISTORIAN) History of Present Illness Date Seen by Provider: Jul 13, 2017 Time Seen by Provider: 11:04 Initial Comments PT ARRIVES VIA POV AND AMBULATES INTO ER ON HER OWN WAS SENT HERE FROM DR. CARDOZO'S OFFICE FOR BRADYCARDIA AND BE ADMITTED TO ICU-- NO CALL FROM HIM PT STATES HER HEART RATE HAS BEEN SLOW SINCE IT WAS CHECKED BY THE NURSE AT [facility] ON THURSDAY. SAW DR. CARDOZO TODAY FOR THAT PROBLEM. STATES HR LOW 38, AND WAS 40 WHEN SHE WENT TO BED LAST NIGHT. HAS BEEN IN 30'S TO 40 ALL WEEKEND PT STATES SHE HAS BEEN SHORT OF BREATH SINCE THURSDAY NO PALPITATIONS NO SWEATS NO SWELLING IN FEET OR ANKLES NO DIZZINESS NO CHEST PAIN OR BACK PAIN PRIOR TO ARRIVAL, BUT AFTER SHE ARRIVES SHE DOES COMPLAIN OF BOTH OF THESE PROBLEMS--STATE THEY JUST STARTED AFTER SHE ARRIVED HERE AND STATES IS FROM HER ANXIETY DENIES ANY HISTORY OF HEART PROBLEMS DENIES COUGH, FEVER OR RECENT ILLNESS NO NAUSEA/VOMITING/DIARRHEA PCP: DR. CLEMENTE Allergies and Home Medications Allergies Coded Allergies: Penicillins (Verified Allergy, Mild, 08/13/15) ketorolac (Verified Allergy, Mild, 08/13/15) morphine (Verified Allergy, Mild, 08/13/15) tetracycline (Verified Allergy, Mild, 08/13/15) paroxetine (Unverified Allergy, Unknown, 02/24/16) Home Medications Acetaminophen 500 Mg Tablet, 1,000 MG PO Q4H PRN for PAIN-MILD, (Reported) TAKES 2 (500 MG) TABLETS / MAY ALSO TAKE FOR ELEVATED TEMPERATURE > 100 Amlodipine Besylate 5 Mg Tablet, 5 MG PO HS, (Reported) Calcium Carbonate/Vitamin D3 1 Each Tablet, 1 TAB PO DAILY, (Reported) Cholestyramine (with Sugar) 378 Gm Powder, 378 GM PO DAILY PRN for LOOSE STOOLS, (Reported) Citalopram Hydrobromide 10 Mg Tablet, 30 MG PO HS, (Reported) TAKES 3 (10 MG) TABLETS Estradiol 42.5 Gm Cream.appl, VG HS, (Reported) Estradiol 10 Mcg Tablet, 10 MG VG TU,FR@2100, (Reported) Fluticasone Propionate 16 Gm [place].susp, 2 SPRAYS NSEACH DAILY PRN for CONGESTION, (Reported) Folic Acid 1 Mg Tablet, 1 MG PO DAILY, (Reported) Hydrochlorothiazide 25 Mg Tablet, 25 MG PO DAILY, (Reported) Hydrocodone Bit/Acetaminophen 1 Each Tablet, 1 TAB PO BID PRN for BACK PAIN, ( Reported) Ibandronate Sodium 150 Mg Tablet, 150 MG PO EVERY 3 MONTHS, (Reported) Lisinopril 20 Mg Tablet, 20 MG PO BID, (Reported) Lorazepam 0.5 Mg Tablet, 0.5 MG PO BID, (Reported) Montelukast Sodium 10 Mg Tablet, 10 MG PO HS, (Reported) Multivitamin 1 Each Tablet, 1 TAB PO DAILY, (Reported) Omeprazole 20 Mg Capsule.dr, 20 MG PO DAILY, (Reported) Polyethylene Glycol 3350 17 Gm Powd.pack, 17 GM PO DAILY PRN for CONSTIPATION- 2ND LINE, (Reported) Pravastatin Sodium 40 Mg Tablet, 40 MG PO HS, (Reported) Quetiapine Fumarate 100 Mg Tablet, 100 MG PO HS, (Reported) Rivastigmine Tartrate 1.5 Mg Capsule, 1.5 MG PO BID, (Reported) Tramadol HCl 50 Mg Tablet, 50 MG PO Q6H PRN for BACK PAIN, (Reported) Triamcinolone Acetonide 80 Gm Oint...g., TP HS, (Reported) APPLIES TO LABIA MAJORA / MAY MIX WITH ESTRACE CREAM Review of Systems Constitutional: no symptoms reported Respiratory: See HPI Cardiovascular: See HPI Gastrointestinal: No Symptoms Reported, Denies Abdominal Pain, Denies Nausea, Denies Vomiting Genitourinary: No Symptoms Reported Musculoskeletal: see HPI Skin: no symptoms reported Psychiatric/Neurological: See HPI, Anxiety (REFERRING ALL OF HER SYMPTOMS BEING CAUSED FROM BEING ANXIOUS. ) Endocrine: No Symptoms Reported Hematologic/Lymphatic: No Symptoms Reported Past Uyvxgss-Hrwlny-Wamlrq Hx Patient Social History Alcohol Use: Past History ("SOCIAL" DRINKER IN PAST) Alcohol Beverage of Choice: Wine Recreational Drug Use: No Smoking Status: Never a Smoker Recent Hopitalizations: No Immunizations Up To Date Tetanus Booster (TDap): Unknown Date of Influenza Vaccine: Mar 08, 2015 Seasonal Allergies Seasonal Allergies: No Surgeries History of Surgeries: Yes (RIGHT HAND AND WRIST FX/EXTERNAL PINS; HYST/BSO; NOSE SURGERY X 4-POLYPS, DEVIATED SEPTUM; LEFT BREAST BIOPSY X 4 AT AGE 30; RIGHT TOTAL SHOULDER REPLACEMENT; REPAIR OF PERFORATED GASTRIC ULCER; EGD/ COLONOSCOPY/COLON POLYPECTOMY) Surgeries: Abdominal, Appendectomy, Gallbladder, 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, Joint Replacement, Orthopedic Respiratory History of Respiratory Disorde: Yes (ALPHA 1 ANTITRIPSIN DEFICIENCY) Respiratory Disorders: Asthma Currently Using CPAP: No Currently Using BIPAP: No Cardiovascular History of Cardiac Disorders: Yes ("VASOVAGAL NERVE PROBLEMS" --"CAUSES HER TO ALMOST PASS OUT"--PER PT) Cardiac Disorders: High Cholesterol, Hypertension Neurological History of Neurological Disord: Yes Neurological Disorders: Dementia 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 System Hx 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 Disorders: No Sexually Transmitted Disease: No HIV/AIDS: No Female 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 Disorders: Denies, Endometriosis MANAGER MEAT History: 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, Menopausal Genitourinary History of Genitourinary Disor: Yes (INCONTINENCE) Gastrointestinal History of Gastrointestinal Di: Yes (BLEEDING ULCER X 3; PERFORATED ULCER 2006 ; 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) Gastrointestinal Disorders: Gastrointestinal Bleed, Chronic Constipation, Polyps, Ulcer, Irritable Bowel Musculoskeletal History of Musculoskeletal Dis: Yes (MOSTLY IN HANDS, KNEES, BACK; RIGHT SHOULDER REPLACEMENT) Musculoskeletal Disorders: Degenerate Disk Disease, Arthritis, Chronic Back Pain, Fractures Endocrine History of Endocrine Disorders: No HEENT History of HEENT Disorders: No Loss of Vision: Denies Hearing Impairment: Denies Cancer History of Cancer: No Psychosocial History of Psychiatric Problem: Yes Behavioral Health Disorders: Anxiety Integumentary History of Skin or Integumenta: No Blood Transfusions History of Blood Disorders: No Physical Exam Vital Signs Vital Sign - Last 12Hours 07/13/17 07/13/17 11:05 11:23 Temp 97.7 Pulse 57 Resp 14 B/P (MAP) 130/92 (105) Pulse Ox 100 O2 Delivery Nasal Cannula O2 Flow Rate 2.00 Capillary Refill : General Appearance: No Apparent Distress, WD/WN, Anxious HEENT: PERRL/EOMI Neck: Full Range of Motion, Normal Inspection, Non Tender, Supple, No Carotid Bruit, No JVD Respiratory: Normal Breath Sounds, No Accessory Muscle Use, No Respiratory Distress Cardiovascular: Regular Rate, Rhythm (RATE 58-60 AND REGULAR), No Edema, No Murmur, Normal Peripheral Pulses Gastrointestinal: Non Tender, Soft Extremity: Normal Capillary Refill, Normal Inspection, Normal Range of Motion, Non Tender, No Calf Tenderness, No Pedal Edema Neurologic/Psychiatric: Alert, Oriented x3, No Motor/Sensory Deficits, certified wellness program manager II- XII Norm as Tested, Other (ANXIOUS) Skin: Normal Color, Warm/Dry Focused Exam Evaluation Lactate Level Laboratory Tests 07/13/17 12:05: Lactic Acid Level 2.16*H Lactic Acid Level Laboratory Tests Test 07/13/17 12:05 Lactic Acid Level 2.16 MMOL/L (0.50-2.00) *H Progress/Results/Core Measures Results/Orders Lab Results Laboratory Tests Test 07/13/17 11:10 07/13/17 12:05 07/13/17 12:17 Range/Units White Blood Count 20.1 H 4.3-11.0 10^3/uL Red Blood Count 4.42 4.35-5.85 10^6/uL Hemoglobin 13.7 11.5-16.0 G/DL Hematocrit 40 35-52 % Mean Corpuscular Volume 89 80-99 FL Mean Corpuscular Hemoglobin 31 25-34 PG Mean Corpuscular Hemoglobin Concent 35 32-36 G/DL Red Cell Distribution Width 13.9 10.0-14.5 % Platelet Count 478 H 130-400 10^3/uL Mean Platelet Volume 9.3 7.4-10.4 FL Neutrophils (%) (Auto) 75 42-75 % Lymphocytes (%) (Auto) 18 12-44 % Monocytes (%) (Auto) 6 0-12 % Eosinophils (%) (Auto) 1 0-10 % Basophils (%) (Auto) 0 0-10 % Neutrophils # (Auto) 15.1 H 1.8-7.8 X 10^3 Lymphocytes # (Auto) 3.7 1.0-4.0 X 10^3 Monocytes # (Auto) 1.1 H 0.0-1.0 X 10^3 Eosinophils # (Auto) 0.1 0.0-0.3 10^3/uL Basophils # (Auto) 0.0 0.0-0.1 10^3/uL Neutrophils % (Manual) 75 % Lymphocytes % (Manual) 20 % Monocytes % (Manual) 5 % Blood Morphology Comment NORMAL Prothrombin Time 13.2 12.2-14.7 SEC INR Comment 1.0 0.8-1.4 Activated Partial Thromboplast Time 20 L 24-35 SEC Sodium Level 126 L 135-145 MMOL/L Potassium Level 5.2 H 3.6-5.0 MMOL/L Chloride Level 92 L 98-107 MMOL/L Carbon Dioxide Level 20 L 21-32 MMOL/L Anion Gap 14 5-14 MMOL/L Blood Urea Nitrogen 53 H 7-18 MG/DL Creatinine 1.37 H 0.60-1.30 MG/DL Estimat Glomerular Filtration Rate 38 BUN/Creatinine Ratio 39 Glucose Level 118 H 70-105 MG/DL Calcium Level 10.3 H 8.5-10.1 MG/DL Magnesium Level 2.3 1.8-2.4 MG/DL Total Bilirubin 0.8 0.1-1.0 MG/DL Aspartate Amino Transf (AST/SGOT) 26 5-34 U/L Alanine Aminotransferase (ALT/SGPT) 19 0-55 U/L Alkaline Phosphatase 49 40-136 U/L Total Creatine Kinase 131 29-168 U/L Creatine Kinase MB 3.6 <6.6 NG/ML Troponin I < 0.30 <0.30 NG/ML B-Type Natriuretic Peptide 497.8 H <100.0 PG/ML Total Protein 7.5 6.4-8.2 GM/DL Albumin 4.2 3.2-4.5 GM/DL TSH [place] Testing 1.08 0.35-4.94 UIU/ML Lactic Acid Level 2.16 *H 0.50-2.00 MMOL/L Urine Color YELLOW Urine Clarity CLEAR Urine pH 5 5-9 Urine Specific [place] 1.010 L 1.016-1.022 Urine Protein NEGATIVE NEGATIVE Urine Glucose (UA) NEGATIVE NEGATIVE Urine Ketones NEGATIVE NEGATIVE Urine Nitrite NEGATIVE NEGATIVE Urine Bilirubin NEGATIVE NEGATIVE Urine Urobilinogen NORMAL NORMAL MG/DL Urine Leukocyte Esterase NEGATIVE NEGATIVE Urine RBC (Auto) NEGATIVE NEGATIVE Urine RBC NONE /HPF Urine WBC NONE /HPF Urine Squamous Epithelial Cells RARE /HPF Urine Crystals NONE /LPF Urine Bacteria NEGATIVE /HPF Urine Casts NONE /LPF Urine Mucus NEGATIVE /LPF Urine Culture Indicated NO Micro Results Microbiology 07/13/17 Influenza Types A,B Antigen (SINA) - Final, Complete My Orders Orders - ODILIA LAKE DO Saline Lock/Iv-Start (07/13/17 11:02) Ekg Tracing (07/13/17 11:02) O2 (07/13/17 11:02) Monitor-Rhythm Ecg Trace Only (07/13/17 11:02) BNP (07/13/17 11:02) Cbc With Automated Diff (07/13/17 11:02) Comprehensive Metabolic Panel (07/13/17 11:02) Creatine Kinase (07/13/17 11:02) Creatine Kinase Mb (07/13/17 11:02) Magnesium (07/13/17 11:02) Protime With Inr (07/13/17 11:02) Partial Thromboplastin Time (07/13/17 11:02) Thyroid Analyzer (07/13/17 11:02) Troponin I (07/13/17 11:02) Chest 1 View, Ap/Pa Only (07/13/17 11:02) Manual Differential (07/13/17 11:10) Ekg Tracing (07/13/17 11:35) Saline Lock/Iv-Start (07/13/17 11:56) Ns Iv 1000 Ml (Sodium Chloride 0.9%) (07/13/17 11:56) Lactic Acid Analyzer (07/13/17 11:56) Ua Culture If Indicated (07/13/17 11:56) Blood Culture (07/13/17 11:56) Influenza A And B Antigens (07/13/17 11:56) Medications Given in ED Vital Signs/I&O Vital Sign - Last 12Hours 07/13/17 07/13/17 11:05 11:23 Temp 97.7 Pulse 57 Resp 14 B/P (MAP) 130/92 (105) Pulse Ox 100 99 O2 Delivery Nasal Cannula Nasal Cannula O2 Flow Rate 2.00 2.00 Progress Note : Progress Note 1130--PT ROLLED TO HER SIDE DUE TO CHRONIC LOWER BACK PAIN, AND PT BECAME BRADYCARDIC AROUND 38 HEART RATE, AND NO LONGER HAS P WAVES. PT STATES SHE FEELS LIGHTHEADED AND SHORT OF BREATH--RESOLVED QUICKLY PT ROLLED ON TO HER BACK, REPEAT EKG DONE, AND HEART RATE 36 AT THIS TIME BP REMAINED STABLE THROUGHOUT ER STAY PT REMAINED ASYMPTOMATIC FOR REMAINDER OF ER STAY, HEART RATE REMAINED IN 30'S WITH NO P-WAVES NOTED. 1220--DAUGHTER ARRIVES AND STATES SHE WAS RECENTLY PRESCRIBED A Z-PACK AND STEROIDS FOR COPD EXACERBATION. FINISHED 07/06/17 ECG Initial ECG Impression Time: 11:04 Initial ECG Rate: 61 Initial ECG Rhythm: Normal Sinus (RBBB AND LAFB) Initial ECG Comparisson: No Previous ECG Available EKG : EKG Time: 11:30 Rate: 1130 Comment BRADYCARDIA--NO DISCERNIBLE P-WAVES, RBBB, LAFB Diagnostic Imaging Comments CXR--NO ACUTE PROCESS, PER RADIOLOGIST REPORT @ 1150 Reviewed: Reviewed by Me Departure Communication (Admissions) Time/Spoke to Admitting Phy: 12:[address] CARDOZO, ACCEPTS PT FOR ADMIT TO ICU. WILL CONSULT [facility] FOR MEDICAL MANAGEMENT Time/Spoke to Consulting Phy: 12:32 Communication/Consulting SPOKE WITH DR. Alvina CLAY. WILL HOLD ANTIBIOTICS AT THIS POINT, NO DEFINITE SOURCE OF INFECTION IS IDENTIFIED AT THIS TIME, AND MAY POSSIBLY BE SECONDARY TO STRESS REACTION AND/OR DEHYDRATION Impression Impression: Primary Impression: Symptomatic bradycardia Additional Impressions: DEHYDRATION WITH ELECTROLYTE IMBALANCE AND ACUTE RENAL INSUFF Leukocytosis Disposition: ADMITTED INPATIENT Condition: Stable Admissions Decision to Admit Reason: Admit from ER (General) Decision to Admit/Date: Jul 13, 2017 Time/Decision to Admit Time: 12:30 Departure-Patient Inst. Referrals: ESTEFANIA CLEMENTE MD (PCP/Family) Primary Care Physician ODILIA LAKE DO Jul 13, 2017 11:35
--- NOTE | 2017-07-13 11:36 | Diagnostic Imaging Report ---
EXAMINATION: Portable erect AP chest 11:26 a.m. INDICATION: Chest pain. FINDINGS: The heart size is at the upper limits of normal or slightly enlarged. The heart is stable when compared to prior exam of 08/13/2015. The lungs are clear. There is no sign of failure, pneumonia or pleural effusion to suggest an acute abnormality. The mediastinum is not widened. The osseous structures are intact. The total shoulder prosthesis on the right seen previously is again evident and no different. IMPRESSION: There is no evidence for active disease. PQRS Compliance Statement: One or more of the following individualized dose reduction techniques were utilized for this examination: 1. Automated exposure control 2. Adjustment of the mA and/or kV according to patient size 3. Use of iterative reconstruction technique Dictated by: Dictated on workstation # [id number]
[2017-07-13 11:43] LABS: ALANINE AMINOTRANSFERASE 19 U/L (0-55); ALBUMIN 4.2 GM/DL (3.2-4.5); ALKALINE PHOSPHATASE 49 U/L (40-136); BILIRUBIN,TOTAL 0.8 MG/DL (0.1-1.0); BUN/CREATININE RATIO 39; CALCIUM 10.3 MG/DL (8.5-10.1); CARBON DIOXIDE 20 MMOL/L (21-32); CHLORIDE 92 MMOL/L (98-107); CREATINE KINASE 131 U/L (29-168); CREATININE SERUM 1.37 MG/DL (0.60-1.30); GFR ESTIMATED 38; GLUCOSE 118 MG/DL (70-105); MAGNESIUM 2.3 MG/DL (1.8-2.4); POTASSIUM 5.2 MMOL/L (3.6-5.0); SODIUM 126 MMOL/L (135-145); TOTAL PROTEIN 7.5 GM/DL (6.4-8.2)
[2017-07-13 11:51] LABS: LYMPHOCYTES % (MANUAL) 20 %; MONOCYTES % (MANUAL) 5 %; NEUTROPHILS % (MANUAL) 75 %; RBC MORPH NORMAL
[2017-07-13] MEDS ORDERED: NS IV 1000 ML 1,000 ML IV ONE (11:56)
[2017-07-13 12:03] LABS: CREATINE KINASE MB 3.6 NG/ML (<6.6); TSH (THYROID ANALYZER) 1.08 UIU/ML (0.35-4.94)
[2017-07-13 12:32] LABS: BILIRUBIN,URINE NEGATIVE (NEGATIVE); CLARITY,URINE CLEAR; COLOR,URINE YELLOW; GLUCOSE, URINE (UA) NEGATIVE (NEGATIVE); KETONES,URINE NEGATIVE (NEGATIVE); LEUKOCYTE ESTERASE ,URINE NEGATIVE (NEGATIVE); NITRITE,URINE NEGATIVE (NEGATIVE); PH,URINE 5 (5-9); PROTEIN,URINE NEGATIVE (NEGATIVE); UROBILINOGEN,URINE NORMAL (NORMAL)
[2017-07-13 12:42] LABS: BACTERIA,URINE NEGATIVE /HPF; SQUAMOUS EPITHELIAL CELL,UR RARE /HPF
--- OUTSIDE RECORDS SUMMARY | 2017-07-13 12:57 | XMS REPORT | Continuity of Care Document ---
Author Author [facility] Organization [facility] Address Unknown Phone Unavailable Allergies Active Description Code Type Severity Reaction Onset Reported/Identified Relationship to Patient Clinical Status Yes ketorolac [id number] Drug Allergy Mild N/A 08/13/2015 Yes morphine [id number] Drug Allergy Mild N/A 08/13/2015 Yes Penicillins [id number] Drug Allergy Mild N/A 08/13/2015 Yes tetracycline [id number] Drug Allergy Mild N/A 08/13/2015 Yes paroxetine [id number] Drug Allergy Unknown N/A 02/24/2016 Medications There [...] FROM ONE LEVEL TO ANOTHER, IN 11/24/2015 [facility], ODILIA K Ot Y92.[address] IN SINGLE-FAMILY (PRIVATE) JUANCARLOS 11/24/2015 JAYA , ODILIA K Ot Y99.8 OTHER EXTERNAL CAUSE STATUS 11/26/2015 ARCOLA , ODILIA Baptiste Ot F41.9 ANXIETY DISORDER, UNSPECIFIED 11/26/2015 ARCOLA DO, ODILIA K Ot S01.112A LACERATION W/O FB OF LEFT EYELID AND PER 11/26/2015 ARCOLA DO, ODILIA K Ot S02.8XXA FRACTURES OF OTH SKULL AND FACIAL BONES, 11/26/2015 ARCOLA DO, ODILIA K Ot S06.0X0A CONCUSSION WITHOUT LOSS OF CONSCIOUSNESS 11/26/2015 [facility], ODILIA K Ot W17.89XA OTHER FALL FROM ONE LEVEL TO ANOTHER, IN 11/26/2015 [facility], ODILIA K Ot Y92.[address] IN SINGLE-FAMILY (PRIVATE) JUANCARLOS 11/26/2015 JAYA , ODILIA K Ot Y99.8 OTHER EXTERNAL CAUSE STATUS 12/07/2015 ARCOLA , ODILIA Baptiste Ot F41.9 ANXIETY DISORDER, UNSPECIFIED 12/07/2015 ARCOLA DO, ODILIA K Ot S01.112A LACERATION W/O FB OF LEFT EYELID AND PER 12/07/2015 [facility], ODILIA K Ot S02.8XXA FRACTURES OF OTH SKULL AND FACIAL BONES, 12/07/2015 [facility], ODILIA K Ot S06.0X0A CONCUSSION WITHOUT LOSS OF CONSCIOUSNESS 12/07/2015 [facility], ODILIA K Ot W17.89XA OTHER FALL FROM ONE LEVEL TO ANOTHER, IN 12/07/2015 [facility], ODILIA K Ot Y92.018 OTH [...] Hartmann Ot 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 01/07/2016 JUANJO KEATING, DARIC P Ot R51 HEADACHE 01/22/2016 JUANJO KEATING, DARCI P Ot 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 01/22/2016 JUANJO KEATING, DARCI P Ot R51 HEADACHE 01/30/2016 JUANJO KEATING, DARCI P Ot 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 01/30/2016 [...] 06/11/2017 BRYN KEATING, ESTEFANIA Dodd Ot M85.88 [facility] DISRD OF BONE DENSITY AND STRUCTURE, 06/19/2017 ESTEFANIA CLEMENTE MD, Ot M48.50XA COLLAPSED VERTEBRA, NEC, SITE UNSP, INIT 06/19/2017 ESTEFANIA CLEMENTE MD, Ot M85.88 [facility] DISRD OF BONE DENSITY AND STRUCTURE, Procedures [...] Status Pt. Type Provider Facility Loc./Unit Complaint [id number] 05/21/2017 10:29:00 05/21/2017 23:59:59 CLS Outpatient BRYN KEATING, ESTEFANIA Dodd [facility] RAD M48.50XA [id number] 11/04/2016 13:28:00 11/04/2016 23:59:59 CLS Outpatient LOY HUGHES DO [facility] RAD Z12.39 [id number] 10/03/2016 06:43:00 10/03/2016 09:51:00 DIS Outpatient LIZZY CORDOBA MD [facility] ENDO IBS, LUQ/LLQ PAIN, HX COLON POLYPS [id number] 10/01/2016 05:35:00 10/01/2016 23:59:59 CLS Outpatient LIZZY CORDOBA MD [facility] PREOP ISB,LUQ PAIN,LLQ PAIN [id number] 02/24/2016 20:27:00 02/24/2016 23:00:00 DIS Emergency BOYD KEATING, SPIKE Bernal [facility] ER HTN [id number] 01/01/2016 07:49:00 01/01/2016 23:59:59 CLS Outpatient JUANJO KEATING, DARCI Hartmann [facility] RAD HEADACHE,DIPLOPIA [id number] 11/23/2015 23:30:00 11/24/2015 01:26:00 DIS Emergency ODILIA LAKE DO [facility] ER LAWSON,VOMITING,ANXIETY [id number] 08/13/2015 12:43:00 08/13/2015 14:13:00 DIS Emergency VARGAS DURAND DO [facility] ER IRR HEART RATE [id number] 07/13/2017 12:30:00 ACT Inpatient Kody CARDOZO MD [facility] ICU SYMPTOMATIC BRADYCARDIA, DEHYDRATION W/ ELECTROLYT
[2017-07-13] MEDS ORDERED: CATHETER FLUSH 10 ML SYR IV PRN (14:45)
[2017-07-13] MEDS ORDERED: IBAN150T8 PO (16:03)
[2017-07-13] MEDS ORDERED: FOLI1TAB24 PO (16:03)
[2017-07-13] MEDS ORDERED: ESTR10TA4 VG (16:03)
[2017-07-13] MEDS ORDERED: CALC-6 PO (16:03)
[2017-07-13] MEDS ORDERED: TRAM50TA2 PO (16:03)
[2017-07-13] MEDS ORDERED: TRIA80OI TP (16:03)
[2017-07-13] MEDS ORDERED: HYDR25TA4 PO (16:03)
[2017-07-13] MEDS ORDERED: FLUT16SP22 NSEACH (16:03)
[2017-07-13] MEDS ORDERED: QUET100T69 PO (16:03)
[2017-07-13] MEDS: NS IV 1000 ML 1,000 ML IV SCH ×2 (17:25→23:43)
[2017-07-13 20:16] LABS: BASOPHILS % (AUTO) 0 % (0-10); EOSINOPHILS % (AUTO) 0 % (0-10); HEMATOCRIT 35 % (35-52); HEMOGLOBIN 12.2 G/DL (11.5-16.0); LYMPHOCYTES % (AUTO) 10 % (12-44); MEAN CORPUSCULAR HEMOGLOBIN 31 PG (25-34); MEAN CORPUSCULAR HGB CONC 35 G/DL (32-36); MEAN CORPUSCULAR VOLUME 90 FL (80-99); MEAN PLATELET VOLUME 9.4 FL (7.4-10.4); MONOCYTES % (AUTO) 5 % (0-12); NEUTROPHILS # (AUTO) 17.3 X 10^3 (1.8-7.8); NEUTROPHILS % (AUTO) 85 % (42-75); PLATELET COUNT 442 10^3/uL (130-400); RED BLOOD COUNT 3.94 10^6/uL (4.35-5.85); RED CELL DISTRIBUTION WIDTH 13.7 % (10.0-14.5); WHITE BLOOD COUNT 20.4 10^3/uL (4.3-11.0)
[2017-07-13 20:33] LABS: CREATININE SERUM 1.21 MG/DL (0.60-1.30)
[2017-07-13 20:34] LABS: CALCIUM 9.1 MG/DL (8.5-10.1)
[2017-07-13] MEDS: ACETAMINOPHEN 500 MG TAB (TYLENOL) PO PRN (20:54)
[2017-07-14] VITALS (23 sets, daily range): BP systolic 116–167; BP diastolic 50–105
[2017-07-14] MEDS: ACETAMINOPHEN 500 MG TAB (TYLENOL) PO PRN (03:24)
[2017-07-14] MEDS: NS IV 1000 ML 1,000 ML IV SCH ×4 (04:10→20:50)
[2017-07-14 05:22] LABS: BASOPHILS % (AUTO) 0 % (0-10); EOSINOPHILS # (AUTO) 0.2 10^3/uL (0.0-0.3); EOSINOPHILS % (AUTO) 1 % (0-10); HEMATOCRIT 34 % (35-52); HEMOGLOBIN 11.8 G/DL (11.5-16.0); LYMPHOCYTES % (AUTO) 25 % (12-44); MEAN CORPUSCULAR HEMOGLOBIN 31 PG (25-34); MEAN CORPUSCULAR HGB CONC 35 G/DL (32-36); MEAN CORPUSCULAR VOLUME 90 FL (80-99); MEAN PLATELET VOLUME 9.3 FL (7.4-10.4); MONOCYTES # (AUTO) 1.3 X 10^3 (0.0-1.0); MONOCYTES % (AUTO) 6 % (0-12); NEUTROPHILS # (AUTO) 13.9 X 10^3 (1.8-7.8); NEUTROPHILS % (AUTO) 68 % (42-75); PLATELET COUNT 379 10^3/uL (130-400); RED BLOOD COUNT 3.81 10^6/uL (4.35-5.85); RED CELL DISTRIBUTION WIDTH 13.5 % (10.0-14.5); WHITE BLOOD COUNT 20.4 10^3/uL (4.3-11.0)
[2017-07-14 05:39] LABS: BILIRUBIN,TOTAL 0.8 MG/DL (0.1-1.0); CALCIUM 9.3 MG/DL (8.5-10.1); CREATININE SERUM 1.01 MG/DL (0.60-1.30); MAGNESIUM 2.1 MG/DL (1.8-2.4); POTASSIUM 4.8 MMOL/L (3.6-5.0)
[2017-07-14 05:40] LABS: ALBUMIN 3.6 GM/DL (3.2-4.5)
[2017-07-14] MEDS: MAGNESIUM 1 GM/100 ML IVPB 100 ML IV SCH (06:11)
[2017-07-14] MEDS: KCL 20 MEQ TAB (K-DUR) PO SCH (06:11)
[2017-07-14] MEDS: POTASSIUM CL 10MEQ/50ML IVPB 50 ML IV SCH (06:11)
--- NOTE | 2017-07-14 08:56 | Diagnostic Imaging Report ---
Portable erect AP chest at 433 hours. INDICATION: Shortness of breath. FINDINGS: The borderline cardiomegaly noted on the prior exam of 07/13/2017 is again evident and no different. The lungs remain clear. There is still no sign of failure, pneumonia or pleural effusion to suggest an acute abnormality. The mediastinum is not widened. The total shoulder prosthesis on the right is unchanged. IMPRESSION: Stable chest. There has been no adverse change since the prior exam. Dictated by: Dictated on workstation # [id number]
--- NOTE | 2017-07-14 11:29 | Consultation (CHS) ---
HPI History of Present Illness: Patient is a 77 year old female who presented to the ER with bradycardia. She lives at [facility] and she states that they noticed her pulse was a little slow on night but really noticed it again on Thursday. She states the it persisted through the weekend. Patient states that nothing like this has happened before. She went to see Dr. Logan Thursday morning and was sent to the ER where she was admitted to the ICU. She denies dizziness, nausea and vomiting. Denies diarrhea and constipation. Denies chest pain. She states that she has had some shortness of breath persisting since Thursday. She complains of severe fatigue. Patient was also concerned about her WBC count and was informed that it likely could be a reaction to stress from her bradycardia. Source: patient Exam Limitations: no limitations Date seen by provider: Jul 14, 2017 Time Seen by Provider: 09:45 Attending Physician Kody Logan MD PCP Ryder Clemente MD Consult Date of Admission Jul 13, 2017 at 12:30 Home Medications Home Medications Reviewed patient Home Medication Reconciliation Form Allergies Coded Allergies: Penicillins (Verified Allergy, Mild, 08/13/15) ketorolac (Verified Allergy, Mild, 08/13/15) morphine (Verified Allergy, Mild, 08/13/15) tetracycline (Verified Allergy, Mild, 08/13/15) paroxetine (Unverified Allergy, Unknown, 02/24/16) PPW-Kuvhgu-Pmedip Hx Patient Social History Alcohol Use: Denies Use Recreational Drug Use: No Smoking Status: Never a Smoker Recent Foreign Travel: No Contact w/other who traveled: No Recent Hopitalizations: No Recent Infectious Disease Expo: No Physical Abuse Screen: No Sexual Abuse: No Immunizations Up To Date Tetanus Booster (TDap): Unknown Date of Pneumonia Vaccine: Feb 10, 2017 Date of Influenza Vaccine: Mar 09, 2017 Family Medical History Family History: Blood clots (sister had a blood clot in the brain which caused her  in 2010) Review of Systems ([facility]) Constitutional: No chills, No dizziness, No fever, malaise, weakness EENTM: No blurred vision, No double vision Respiratory: short of breath Cardiovascular: No chest pain, No edema, No palpitations Gastrointestinal: No abdominal pain, No constipation, No diarrhea Musculoskeletal: no symptoms reported Skin: no symptoms reported Psychiatric/Neurological: Anxiety, Denies Headache Physical Exam-([facility]) Physical Exam Vital Signs VS - Last 72 Hours, by Label 07/13/17 07/13/17 07/13/17 07/13/17 11:05 11:23 14:11 14:12 Temp 97.7 Pulse 57 34 38 Resp 14 12 20 B/P (MAP) 130/92 (105) 144/63 (90) Pulse Ox 100 99 98 96 O2 Delivery Nasal Cannula Nasal Cannula Nasal Cannula Nasal Cannula O2 Flow Rate 2.00 2.00 2.00 2.00 07/13/17 07/13/17 07/13/17 07/13/17 14:15 14:29 14:30 15:00 Temp 97.9 Pulse 39 88 B/P (MAP) 128/69 (88) Pulse Ox 95 O2 Delivery Nasal Cannula Nasal Cannula Nasal Cannula O2 Flow Rate 2.00 2.00 2.00 07/13/17 07/13/17 07/13/17 07/13/17 16:00 16:10 17:00 18:00 Temp 97.7 Pulse 39 38 37 Resp 16 16 B/P (MAP) 124/51 (75) 131/107 (115) 116/56 (76) Pulse Ox 97 98 99 O2 Delivery Nasal Cannula Nasal Cannula Nasal Cannula Nasal Cannula O2 Flow Rate 2.00 2.00 2.00 2.00 07/13/17 07/13/17 07/13/17 07/13/17 19:00 19:00 20:00 20:00 Pulse 40 40 39 Resp 20 26 B/P (MAP) 107/60 (76) 102/48 (66) Pulse Ox 97 97 O2 Delivery Nasal Cannula Nasal Cannula Nasal Cannula O2 Flow Rate 2.00 2.00 2.00 07/13/17 07/13/17 07/13/17 07/13/17 20:00 21:00 22:00 23:00 Temp 97.1 Pulse 38 34 58 Resp 13 19 33 B/P (MAP) 116/54 (74) 122/47 (72) 146/64 (91) Pulse Ox 98 94 95 O2 Delivery Nasal Cannula Nasal Cannula Nasal Cannula Nasal Cannula O2 Flow Rate 2.00 2.00 2.00 2.00 07/13/17 07/13/17 07/14/17 07/14/17 23:29 23:30 00:00 01:00 Temp 98.0 Pulse 56 56 Resp 11 B/P (MAP) 158/74 (102) Pulse Ox 95 O2 Delivery Nasal Cannula Nasal Cannula Nasal Cannula O2 Flow Rate 2.00 2.00 2.00 07/14/17 07/14/17 07/14/17 07/14/17 01:00 02:00 03:00 04:00 Temp 98.9 Pulse 56 54 52 Resp 25 29 17 B/P (MAP) 167/71 (103) 152/92 (112) 144/58 (86) Pulse Ox 96 98 100 O2 Delivery Nasal Cannula Nasal Cannula Nasal Cannula Nasal Cannula O2 Flow Rate 2.00 2.00 2.00 2.00 07/14/17 07/14/17 07/14/17 07/14/17 04:00 04:00 05:00 05:30 Pulse 52 51 Resp 14 15 B/P (MAP) 147/64 (91) 152/74 (100) Pulse Ox 99 98 O2 Delivery Nasal Cannula Nasal Cannula Nasal Cannula Nasal Cannula O2 Flow Rate 2.00 2.00 2.00 2.00 07/14/17 07/14/17 07/14/17 07/14/17 06:00 07:00 07:00 08:00 Pulse 47 46 46 Resp 17 25 B/P (MAP) 140/63 (88) 138/63 (88) Pulse Ox 97 97 O2 Delivery Nasal Cannula Nasal Cannula Nasal Cannula O2 Flow Rate 2.00 2.00 2.00 07/14/17 07/14/17 07/14/17 07/14/17 08:00 08:00 09:00 12:00 Temp 99.1 Pulse 55 55 Resp 14 13 B/P (MAP) 154/71 (98) 161/71 (101) Pulse Ox 98 100 O2 Delivery Nasal Cannula Nasal Cannula Nasal Cannula O2 Flow Rate 2.00 2.00 2.00 07/14/17 07/14/17 12:00 13:00 Temp 97.9 Pulse 58 Capillary Refill : Less Than 3 Seconds General Appearance: mild distress Neck: non-tender, supple Respiratory: lungs clear, normal breath sounds, no respiratory distress, no accessory muscle use Cardiovascular: regular rate, rhythm, no edema, no gallop, no murmur Gastrointestinal: normal bowel sounds, non tender, soft, no organomegaly Extremities: non-tender, no pedal edema Neurologic/Psychiatric: alert, normal mood/affect, oriented x 3 Skin: normal color, warm/dry Lymphatic: no adenopathy Assessment/Plan Assessment/Plan Admission Dx Bradycardia Plan 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 Likely to need a pacemaker, but there is concern about the persistent leukocytosis. LEUKOCYTOSIS 07/14 - Patient was placed on prednisone 40mg x 6 days and then 20mg x 6 days on Jul 02. Given the weeklong steroid course, I anticipate this is why we are seeing the persistently elevated WBC. I have checked her clinic record, and we don't have a baseline CBC on file. Her old hospital records both show elevated WBC of 13K and 16K. She does not have bands, has negative blood cultures, negative UA, negative CXR, and no fever. I truly believe that she is not currently infected and that placing the pacemaker is reasonable to do tomorrow or as scheduling permits. MILD COGNITIVE IMPAIRMENT / - Patient recently admitted to [facility] for geripsych. Has done well since. Continue on home regimen, particularly to avoid . I am agreeable to transfer to floor when Dr Logan is ready. Clinical Quality Measures DVT/VTE Risk/Contraindication: Risk Factor Score Per Nursin RFS Level Per Nursing on Admit: 4+=Very High Copy Copies To 1: RYDER CLEMENTE MD, ANGELA M MED STUDENT Jul 14, 2017 11:29 am LORENA CLAY MD Jul 14, 2017 3:30 pm
--- NOTE | 2017-07-14 12:20 | History & Physicial-Cardiolgy ---
HPI-Cardiology Cardiology Consultation: Date of Consultation 07/14/17 Date of Admission Attending Physician Kody Cardozo MD Admitting Physician Ryder Victoria MD Consulting Physician Kody CARDOZO MD HPI: Time Seen by Provider: 11:00 Chief Complaint: dizziness, fatigue, shortness of breath This is a 77-year-old lady who is a patient of Dr. Victoria. She has been referred for severe bradycardia, weakness, shortness of breath, dizziness. She' s been having these symptoms for the last one to 2 days. She has history of hypertension and hyperlipidemia. She denies diabetes and active smoking. Her daughter had a pacemaker. She denies any chest pain, near-syncope or syncope however she is very dizzy and weak. she denies any GI or symptoms. Review of Systems-Cardiology Review of Systems Constitutional: No As described under HPI, No no symptoms reported, No chills, No fever, lightheadedness, No malaise, tiredness, No weight loss, No weight gain , No other Eyes: No As described under HPI, No no symptoms reported, No blindness, No blurred vision, No contact lenses, No drainage, No decreased acuity, No foreign body sensation, No glasses, No inflammation, No pain, No photophobia, No previous injury, No shadows, No tunnel vision, No other, No vision change Ears/Nose/Throat: No As described under HPI, No no symptoms reported, No chronic hearing loss, No epistaxis, No ear discharge, No ear pain, No loose teeth, No mouth pain, No mouth swelling, No nasal drainage, No nose pain, No recent hearing loss, No throat pain, No throat swelling, No ulcerations, No other Respiratory: No no symptoms reported, No As described under HPI, No cough, No orthopnea, shortness of breath, No SOB with excertion, No SOB at rest, No stridor, No wheezing, No other Cardiovascular: No no symptoms reported, No As described under HPI, No chest pain, No edema, No irregular heart rate, lightheadedness, No palpitations, No syncope, No other Gastrointestinal: No no symptoms reported, No As described under HPI, No abdomen distended, No abdominal pain, No blood streaked bowels, No constipation , No diarrhea, No difficulty swallowing, No nausea, No poor appetite, No poor fluid intake, No rectal bleeding, No vomiting, No other, No nausea/vomiting/ diarrhea, No stool coloration changes Genitourinary: No no symptoms reported, No As described under HPI, No burning, No dysuria, No discharge, No frequency, No flank pain, No hematuria, No incontinence, No pain, No urgency, No other, No urine frequency changes, No urine coloration changes Musculoskeletal: No no symptoms reported, No As describe under HPI, No back pain, No gout, No joint pain, No joint swelling, No muscle pain, No muscle stiffness, No neck pain, No other Skin: No no symptoms reported, No As described under HPI, No change in color, No change in hair/nails, No dryness, No lesions, No lumps, No rash, No other, No skin related problems, No ulcerations, No rash on exposed areas, No ulcerations on exposed areas Psychiatric/Neurological: No no symptoms reported, No As described under HPI, No anxiety, No depression, No emotional problems, No headache, No numbness, No pre-existing deficit, No seizure, No tingling, No tremors, No weakness, No other , No focal weakness, No syncope Hematologic: No no symptoms reported, No As described under HPI, No anemia, No blood clots, No easy bleeding, No easy bruising, No swollen glands, No other, No bleeding abnormalities CCW-[id number]-Xfxnfy Hx Patient Social History Alcohol Use: Denies Use Recreational Drug Use: No Smoking Status: Never a Smoker Recent Foreign Travel: No Recent Infectious Disease Expo: No Physical Abuse Screen: No Sexual Abuse: No Immunizations Up To Date Tetanus Booster (TDap): Unknown Date of Pneumonia Vaccine: Feb 10, 2017 Date of Influenza Vaccine: Mar 09, 2017 Past Medical History PMH As described under Assessment. Family Medical History Family History: Blood clots (sister had a blood clot in the brain which caused her  in 2010) Allergies and Home Medications Allergies Coded Allergies: Penicillins (Verified Allergy, Mild, 08/13/15) ketorolac (Verified Allergy, Mild, 08/13/15) morphine (Verified Allergy, Mild, 08/13/15) tetracycline (Verified Allergy, Mild, 08/13/15) paroxetine (Unverified Allergy, Unknown, 02/24/16) Home Medications Acetaminophen 500 Mg Tablet, 1,000 MG PO Q4H PRN for PAIN-MILD, (Reported) TAKES 2 (500 MG) TABLETS / MAY ALSO TAKE FOR ELEVATED TEMPERATURE > 100 Amlodipine Besylate 5 Mg Tablet, 5 MG PO HS, (Reported) Calcium Carbonate/Vitamin D3 1 Each Tablet, 1 TAB PO DAILY, (Reported) Cholestyramine (with Sugar) 378 Gm Powder, 378 GM PO DAILY PRN for LOOSE STOOLS, (Reported) Citalopram Hydrobromide 10 Mg Tablet, 30 MG PO HS, (Reported) TAKES 3 (10 MG) TABLETS Estradiol 42.5 Gm Cream.appl, VG HS, (Reported) Estradiol 10 Mcg Tablet, 10 MG VG TU,FR@2100, (Reported) Fluticasone Propionate 16 Gm [place].susp, 2 SPRAYS NSEACH DAILY PRN for CONGESTION, (Reported) Folic Acid 1 Mg Tablet, 1 MG PO DAILY, (Reported) Hydrochlorothiazide 25 Mg Tablet, 25 MG PO DAILY, (Reported) Hydrocodone Bit/Acetaminophen 1 Each Tablet, 1 TAB PO BID PRN for BACK PAIN, ( Reported) Ibandronate Sodium 150 Mg Tablet, 150 MG PO EVERY 3 MONTHS, (Reported) Lisinopril 20 Mg Tablet, 20 MG PO BID, (Reported) Lorazepam 0.5 Mg Tablet, 0.5 MG PO BID, (Reported) Montelukast Sodium 10 Mg Tablet, 10 MG PO HS, (Reported) Multivitamin 1 Each Tablet, 1 TAB PO DAILY, (Reported) Omeprazole 20 Mg Capsule.dr, 20 MG PO DAILY, (Reported) Polyethylene Glycol 3350 17 Gm Powd.pack, 17 GM PO DAILY PRN for CONSTIPATION- 2ND LINE, (Reported) Pravastatin Sodium 40 Mg Tablet, 40 MG PO HS, (Reported) Quetiapine Fumarate 100 Mg Tablet, 100 MG PO HS, (Reported) Rivastigmine Tartrate 1.5 Mg Capsule, 1.5 MG PO BID, (Reported) Tramadol HCl 50 Mg Tablet, 50 MG PO Q6H PRN for BACK PAIN, (Reported) Triamcinolone Acetonide 80 Gm Oint...g., TP HS, (Reported) APPLIES TO LABIA MAJORA / MAY MIX WITH ESTRACE CREAM Physical Exam-Cardiology Physical Exam Vital Signs/I&O Vital Sign - Last 12Hours 07/14/17 07/14/17 07/14/17 07/14/17 01:00 01:00 02:00 03:00 Pulse 56 56 54 52 Resp 25 29 17 B/P (MAP) 167/71 (103) 152/92 (112) 144/58 (86) Pulse Ox 96 98 100 O2 Delivery Nasal Cannula Nasal Cannula Nasal Cannula O2 Flow Rate 2.00 2.00 2.00 07/14/17 07/14/17 07/14/17 07/14/17 04:00 04:00 04:00 05:00 Temp 98.9 Pulse 52 51 Resp 14 15 B/P (MAP) 147/64 (91) 152/74 (100) Pulse Ox 99 98 O2 Delivery Nasal Cannula Nasal Cannula Nasal Cannula Nasal Cannula O2 Flow Rate 2.00 2.00 2.00 2.00 07/14/17 07/14/17 07/14/17 07/14/17 05:30 06:00 07:00 07:00 Pulse 47 46 46 Resp 17 25 B/P (MAP) 140/63 (88) 138/63 (88) Pulse Ox 97 97 O2 Delivery Nasal Cannula Nasal Cannula Nasal Cannula O2 Flow Rate 2.00 2.00 2.00 07/14/17 07/14/17 07/14/17 07/14/17 08:00 08:00 08:00 09:00 Temp 99.1 Pulse 55 55 Resp 14 13 B/P (MAP) 154/71 (98) 161/71 (101) Pulse Ox 98 100 O2 Delivery Nasal Cannula Nasal Cannula Nasal Cannula O2 Flow Rate 2.00 2.00 2.00 07/14/17 12:00 O2 Delivery Nasal Cannula O2 Flow Rate 2.00 Intake and Output 07/14/17 00:00 Intake Total 1450 ml Output Total 1250 ml Balance 200 ml Capillary Refill : Less Than 3 Seconds Constitutional: appears stated age, AAO x 3 HEENT: PERRL, No discharge, hearing is well preserved, oral hygience is good, No ulceration, No xanthelasmas are seen Neck: No carotid bruit, carotid pulses are 2 + bilaterally Respiratory: chest is bilaterally symmetric, lungs clear to percussion, lungs clear to auscultation Cardiovascular: No regular rate-rhythm, irregularly irregular, No extra beats, No parasternal heave is noted, No JVD, No edema, bradycardia, No tachycardia, No point of maximal impulse, No cardiac thrills are palpable, S1 and S2, No gallop/S3, No gallop/S4, No diastolic murmur, No systolic murmur, No friction rub, No click, No other Gastrointestinal: No tender, No soft, No round, No distended, No pulsatile mass , No organomegaly, No guarding, No rebound, No tenderness, No hernia, No mass, No audible bowel sounds, No abnormal bowel sounds, No abdominal bruits, No spleenomegaly, No other Rectal: deferred Extremities: No normal range of motion, No non-tender, No normal inspection, No pedal edema, No calf tenderness, No normal capillary refill, No pelvis stable , No calf tenderness, No inflammation, No pedal edema, No slow capillary refill , No swelling, No other, No abrasion, No clubbing, No cyanosis, No ecchymosis, No laceration, No no lower extremity edema bilateral, No significant edema, No tenderness, No wound Neurologic/Psychiatric: No mica miner II-XII nml as tested, No no motor/sensory deficits, alert, normal mood/affect, No oriented x 3, No abnormal cerebellar tests, No abnormal mica miner II-XII, No abnormal gait, No aphasia, No EOM palsy, No facial droop, No motor weakness, No sensory deficit, No depressed affect, No disoriented x 3, No other, No grossly intact, No power is 5/5 both on sides Skin: No rash, No ulcerations Lymphatic: no adenopathy Data Review Labs Laboratory Tests 07/13/17 14:48: Lactic Acid Level 2.37*H 07/13/17 20:05: White Blood Count 20.4H, Red Blood Count 3.94L, Hemoglobin 12.2, Hematocrit 35, Mean Corpuscular Volume 90, Mean Corpuscular Hemoglobin 31, Mean Corpuscular Hemoglobin Concent 35, Red Cell Distribution Width 13.7, Platelet Count 442H, Mean Platelet Volume 9.4, Neutrophils (%) (Auto) 85H, Lymphocytes (%) (Auto) 10L , Monocytes (%) (Auto) 5, Eosinophils (%) (Auto) 0, Basophils (%) (Auto) 0, Neutrophils # (Auto) 17.3H, Lymphocytes # (Auto) 2.0, Monocytes # (Auto) 1.0, Eosinophils # (Auto) 0.0, Basophils # (Auto) 0.0, Sodium Level 126L, Potassium Level 5.0, Chloride Level 97L, Carbon Dioxide Level 18L, Anion Gap 11, Blood Urea Nitrogen 46H, Creatinine 1.21, Estimat Glomerular Filtration Rate 43, BUN/ Creatinine Ratio 38, Glucose Level 157H, Calcium Level 9.1 07/14/17 05:05: White Blood Count 20.4H, Red Blood Count 3.81L, Hemoglobin 11.8, Hematocrit 34L , Mean Corpuscular Volume 90, Mean Corpuscular Hemoglobin 31, Mean Corpuscular Hemoglobin Concent 35, Red Cell Distribution Width 13.5, Platelet Count 379, Mean Platelet Volume 9.3, Neutrophils (%) (Auto) 68, Lymphocytes (%) (Auto) 25, Monocytes (%) (Auto) 6, Eosinophils (%) (Auto) 1, Basophils (%) (Auto) 0, Neutrophils # (Auto) 13.9H, Lymphocytes # (Auto) 5.0H, Monocytes # (Auto) 1.3H, Eosinophils # (Auto) 0.2, Basophils # (Auto) 0.0, Sodium Level 128L, Potassium Level 4.8, Chloride Level 98, Carbon Dioxide Level 22, Anion Gap 8, Blood Urea Nitrogen 37H, Creatinine 1.01, Estimat Glomerular Filtration Rate 53, BUN/ Creatinine Ratio 37, Glucose Level 81, Calcium Level 9.3, Phosphorus Level 3.0, Magnesium Level 2.1, Total Bilirubin 0.8, Aspartate Amino Transf (AST/SGOT) 14, Alanine Aminotransferase (ALT/SGPT) 14, Alkaline Phosphatase 42, Total Protein 6.0L, Albumin 3.6 Microbiology 07/13/17 Influenza Types A,B Antigen (SINA) - Final, Complete ECG Impression ECG Initial ECG Rhythm: S.Ludwin A/P-Cardiology Assessment/Admission Diagnosis shortness of breath, Dizziness, Extreme fatigue, Bradycardia, leukocytosis with left shift, Lactic acidosis, Chronic kidney disease, Congestive heart failure Plan This is a 77-year-old lady who is a patient of Dr. Victoria. She has been referred for severe bradycardia, weakness, shortness of breath, dizziness. She' s been having these symptoms for the last one to 2 days. She has history of hypertension and hyperlipidemia. She denies diabetes and active smoking. Her daughter had a pacemaker. She denies any chest pain, near-syncope or syncope however she is very dizzy and weak. EKG in the office yesterday shows severe bradycardia with wide complex rhythm right bundle branch morphology, occasional P waves associated with dizziness, fatigue, shortness of breath. Chest examination there is no wheezing however breath sounds are coarse. This patient will require ER evaluation. ICU admission for severe sinus node dysfunction and may require a pacemaker. Echocardiogram is recommended. Discussed with the patient. leukocytosis with left shift and lactic acidosis:? Sepsis, unknown etiology, will discuss with Dr. Morgan. Chronic kidney disease: Stage III. Continue to follow. Nephrology consultation as an outpatient. Congestive heart failure: Echocardiogram pending. Based on that we will decide whether this is acute diastolic heart failure or acute systolic congestive heart failure. We will give low-dose Lasix. Clinical Quality Measures DVT/VTE Risk/Contraindication: Risk Factor Score Per Nursin RFS Level Per Nursing on Admit: 4+=Very High Kody CARDOZO MD Jul 14, 2017 12:20 pm
[2017-07-14] MEDS: FUROSEMIDE 40 MG/4 ML INJ (LASIX) IVP SCH (13:52)
[2017-07-14] MEDS ORDERED: FLUTICASONE NASAL SPRAY (FLONASE) 16 GM BTL NS PRN (15:00)
[2017-07-14] MEDS: QUEtiapine 100 MG (SEROquel) TAB IMMEDIATE RELEASE PO SCH (20:38)
[2017-07-14] MEDS: MONTELUKAST 10 MG (SINGULAIR) TAB PO SCH (20:38)
[2017-07-14] MEDS: RIVASTIGMINE 1.5 MG (EXELON) CAP PO SCH (20:38)
[2017-07-14] MEDS: SIMvastatin 20 MG (ZOCOR) TAB PO SCH (20:38)
[2017-07-14] MEDS: LORazepam 0.5 MG (ATIVAN) TABLET PO SCH (20:38)
[2017-07-14] MEDS ORDERED: ESTRADIOL VAGINAL CREAM 42.5 GM (ESTRACE) VG SCH (21:00)
[2017-07-15] VITALS (21 sets, daily range): BP systolic 37–193; BP diastolic 49–122
[2017-07-15 06:01] LABS: BASOPHILS # (AUTO) 0.1 10^3/uL (0.0-0.1); BASOPHILS % (AUTO) 0 % (0-10); EOSINOPHILS # (AUTO) 0.6 10^3/uL (0.0-0.3); EOSINOPHILS % (AUTO) 4 % (0-10); HEMATOCRIT 38 % (35-52); HEMOGLOBIN 12.7 G/DL (11.5-16.0); LYMPHOCYTES # (AUTO) 6.5 X 10^3 (1.0-4.0); LYMPHOCYTES % (AUTO) 41 % (12-44); MEAN CORPUSCULAR HEMOGLOBIN 31 PG (25-34); MEAN CORPUSCULAR HGB CONC 34 G/DL (32-36); MEAN CORPUSCULAR VOLUME 91 FL (80-99); MEAN PLATELET VOLUME 9.5 FL (7.4-10.4); MONOCYTES % (AUTO) 7 % (0-12); NEUTROPHILS # (AUTO) 7.7 X 10^3 (1.8-7.8); NEUTROPHILS % (AUTO) 49 % (42-75); PLATELET COUNT 371 10^3/uL (130-400); RED BLOOD COUNT 4.17 10^6/uL (4.35-5.85); RED CELL DISTRIBUTION WIDTH 13.5 % (10.0-14.5); WHITE BLOOD COUNT 15.9 10^3/uL (4.3-11.0)
[2017-07-15] MEDS: PANTOPRAZOLE 20 MG TABLET (PROTONIX) PO SCH (06:06)
[2017-07-15] MEDS: NS IV 1000 ML 1,000 ML IV SCH ×4 (06:06→22:39)
[2017-07-15] MEDS: MULTIVIT W/MINERALS TAB (THERAGRAN M) PO SCH (06:06)
[2017-07-15] MEDS: FOLIC ACID 1 MG TAB PO SCH (06:06)
[2017-07-15 06:21] LABS: BUN/CREATININE RATIO 31; CALCIUM 8.9 MG/DL (8.5-10.1); CARBON DIOXIDE 21 MMOL/L (21-32); CHLORIDE 99 MMOL/L (98-107); CREATININE SERUM 0.88 MG/DL (0.60-1.30); GFR ESTIMATED > 60; GLUCOSE 78 MG/DL (70-105); MAGNESIUM 1.7 MG/DL (1.8-2.4); PHOSPHORUS 3.1 MG/DL (2.3-4.7); POTASSIUM 4.5 MMOL/L (3.6-5.0); SODIUM 132 MMOL/L (135-145)
[2017-07-15] MEDS: POTASSIUM CL 10MEQ/50ML IVPB 50 ML IV SCH (06:31)
[2017-07-15] MEDS: KCL 20 MEQ TAB (K-DUR) PO SCH (06:31)
[2017-07-15] MEDS: MAGNESIUM 1 GM/100 ML IVPB 100 ML IV SCH ×3 (06:32→08:36)
--- NOTE | 2017-07-15 07:59 | Diagnostic Imaging Report ---
INDICATION: Shortness of breath. COMPARISON: 07/14/2017. FINDINGS: Portable chest shows the lungs to be well-aerated. There are no infiltrates. The heart is mildly enlarged. No evidence of pulmonary edema. There is no pneumothorax or pleural effusion. IMPRESSION: Portable chest with no acute findings. Dictated by: Dictated on workstation # [id number]
[2017-07-15] MEDS: RIVASTIGMINE 1.5 MG (EXELON) CAP PO SCH ×2 (08:36→20:54)
[2017-07-15] MEDS: FUROSEMIDE 40 MG/4 ML INJ (LASIX) IVP SCH (08:36)
[2017-07-15] MEDS: LORazepam 0.5 MG (ATIVAN) TABLET PO SCH ×2 (08:36→20:54)
--- NOTE | 2017-07-15 10:37 | Cardiology Progress Note ---
Cardiology SOAP Progress Note Subjective: No significant cardiac symptoms. Objective: I&O/Vital Signs Vital Sign - Last 12Hours 07/15/17 07/15/17 07/15/17 07/15/17 02:00 03:00 04:00 04:00 Pulse 52 52 53 Resp 28 17 21 B/P (MAP) 120/66 (84) 130/61 (84) 130/79 (96) Pulse Ox 94 93 96 91 O2 Delivery Room Air Room Air Room Air Room Air 07/15/17 07/15/17 07/15/17 07/15/17 04:00 05:00 06:00 07:00 Temp 97.5 Pulse 54 53 53 Resp 18 25 19 B/P (MAP) 145/67 (93) 144/71 (95) 152/75 (100) Pulse Ox 93 93 93 O2 Delivery Room Air Room Air Room Air 07/15/17 07/15/17 07/15/17 07/15/17 07:00 08:00 08:00 12:00 Temp 97.2 97.3 Pulse 49 61 65 Resp 15 18 B/P (MAP) 138/64 (88) 114/77 (89) Pulse Ox 96 96 96 O2 Delivery Room Air Room Air Room Air Intake and Output 07/15/17 00:00 Intake Total 1660 ml Output Total 1900 ml Balance -240 ml Weight (Pounds): 200 Weight (Ounces): 11.0 Weight (Calculated Kilograms): 91.552554 Constitutional: appears stated age, AAO x 3 Respiratory: chest is bilaterally symmetric, lungs clear to percussion, lungs clear to auscultation Cardiovascular: No regular rate-rhythm, irregularly irregular, No extra beats, No parasternal heave is noted, No JVD, No edema, bradycardia, No tachycardia, No point of maximal impulse, No cardiac thrills are palpable, S1 and S2, No gallop/S3, No gallop/S4, No diastolic murmur, No systolic murmur, No friction rub, No click, No other Gastrointestional: No tender, No soft, No round, No distended, No pulsatile mass, No organomegaly, No guarding, No rebound, No tenderness, No hernia, No mass, No audible bowel sounds, No abnormal bowel sounds, No abdominal bruits, No spleenomegaly, No other Extremities: No normal range of motion, No non-tender, No normal inspection, No pedal edema, No calf tenderness, No normal capillary refill, No pelvis stable , No calf tenderness, No inflammation, No pedal edema, No slow capillary refill , No swelling, No other, No abrasion, No clubbing, No cyanosis, No ecchymosis, No laceration, No no lower extremity edema bilateral, No significant edema, No tenderness, No wound Neurologic/Psychiatric: No national sales consultant II-XII nml as tested, No no motor/sensory deficits, alert, normal mood/affect, No oriented x 3, No abnormal cerebellar tests, No abnormal national sales consultant II-XII, No abnormal gait, No aphasia, No EOM palsy, No facial droop, No motor weakness, No sensory deficit, No depressed affect, No disoriented x 3, No other, No grossly intact, No power is 5/5 both on sides Skin: No rash, No ulcerations Results/Procedures: Labs Laboratory Tests 07/15/17 05:00: White Blood Count 15.9H, Red Blood Count 4.17L, Hemoglobin 12.7, Hematocrit 38, Mean Corpuscular Volume 91, Mean Corpuscular Hemoglobin 31, Mean Corpuscular Hemoglobin Concent 34, Red Cell Distribution Width 13.5, Platelet Count 371, Mean Platelet Volume 9.5, Neutrophils (%) (Auto) 49, Lymphocytes (%) (Auto) 41, Monocytes (%) (Auto) 7, Eosinophils (%) (Auto) 4, Basophils (%) (Auto) 0, Neutrophils # (Auto) 7.7, Lymphocytes # (Auto) 6.5H, Monocytes # (Auto) 1.0, Eosinophils # (Auto) 0.6H, Basophils # (Auto) 0.1, Sodium Level 132L, Potassium Level 4.5, Chloride Level 99, Carbon Dioxide Level 21, Anion Gap 12, Blood Urea Nitrogen 27H, Creatinine 0.88, Estimat Glomerular Filtration Rate > 60, BUN/ Creatinine Ratio 31, Glucose Level 78, Calcium Level 8.9, Phosphorus Level 3.1, Magnesium Level 1.7L Microbiology 07/13/17 Blood Culture - Preliminary, Resulted No growth 07/13/17 Influenza Types A,B Antigen (SINA) - Final, Complete A/P: Assessment/Dx: shortness of breath, Dizziness, Extreme fatigue, Bradycardia, leukocytosis with left shift, Lactic acidosis, Chronic kidney disease, Congestive heart failure Plan: This is a 77-year-old lady who is a patient of Dr. Victoria. She has been referred for severe bradycardia, weakness, shortness of breath, dizziness. She' s been having these symptoms for the last one to 2 days. She has history of hypertension and hyperlipidemia. She denies diabetes and active smoking. Her daughter had a pacemaker. She denies any chest pain, near-syncope or syncope however she is very dizzy and weak. EKG in the office yesterday shows severe bradycardia with wide complex rhythm right bundle branch morphology, occasional P waves associated with dizziness, fatigue, shortness of breath. Chest examination there is no wheezing however breath sounds are coarse. Permanent pacemaker tomorrow. leukocytosis with left shift and lactic acidosis: Likely a stress response with no focus of infection. Chronic kidney disease: Stage III. Continue to follow. Nephrology consultation as an outpatient. Congestive heart failure: Echocardiogram pending. Based on that we will decide whether this is acute diastolic heart failure or acute systolic congestive heart failure. We will give low-dose Lasix. Thank you for your consultation. Please call me if you have any questions. Emerson Cardozo MD, FACP, FACC, FSCAI, FHRS, CCDS Interventional Cardiology Cardiac Electrophysiology Vascular Medicine and Endovascular Interventions Kody CARDOZO MD Jul 15, 2017 10:37
--- NOTE | 2017-07-15 11:02 | Progress Note (SOAP) ---
LOY CINTRON MED STUDENT 07/15/17 11:02am: Subjective Subjective/Events-last exam Patient was able to get some sleep last night so she is feeling much better. She states that she still feels very fatigued and that her neck is sore from laying in bed so long. She would like to get up, take a shower, and get her hair done. She was told that the nurses may be able to help her with those things. She was informed that she would be getting a pacemaker in tomorrow. She voiced understanding. Patient denies any change in bowel patterns. Denies any SOB today. She has a chery cath in since she is receiving lasix. Review of Systems Date Seen by Provider: Jul 15, 2017 Time Seen by Provider: 09:45 General: Fatigue HEENT: No Head Aches, No Visual Changes Pulmonary: No Dyspnea, No Cough Cardiovascular: No: Chest Pain, Palpitations Gastrointestinal: No: Nausea, Abdominal Pain, Diarrhea, Constipation Genitourinary: Other (Chery cath in place) Musculoskeletal: neck pain Neurological: No: Weakness Objective Exam Last Set of Vital Signs Vital Signs Date Time Temp Pulse Resp B/P (MAP) Pulse Ox O2 Delivery O2 Flow Rate FiO2 07/15/17 08:00 96 Room Air 07/15/17 08:00 97.2 61 15 138/64 (88) 07/14/17 18:00 2.00 Capillary Refill : Less Than 3 Seconds I&O Intake and Output 07/15/17 00:00 Intake Total 3500 ml Output Total 3200 ml Balance 300 ml Intake Oral 1500 ml IV Total 2000 ml Output Urine Total 3200 ml # Voids 3 # Bowel Movements 1 General: Alert, Oriented X3 HEENT: Atraumatic Neck: Supple, No LAD Lungs: Clear to Auscultation Heart: Regular Rate, No Murmurs Abdomen: Normal Bowel Sounds, Soft, No Tenderness Extremities: No Clubbing, No Cyanosis, No Edema Skin: No Rashes, No Breakdown Neuro: Normal Speech, Normal Tone Psych/Mental Status: Mental Status NL, Mood NL Results/Procedures Lab Laboratory Tests 07/15/17 05:00: White Blood Count 15.9H, Red Blood Count 4.17L, Hemoglobin 12.7, Hematocrit 38, Mean Corpuscular Volume 91, Mean Corpuscular Hemoglobin 31, Mean Corpuscular Hemoglobin Concent 34, Red Cell Distribution Width 13.5, Platelet Count 371, Mean Platelet Volume 9.5, Neutrophils (%) (Auto) 49, Lymphocytes (%) (Auto) 41, Monocytes (%) (Auto) 7, Eosinophils (%) (Auto) 4, Basophils (%) (Auto) 0, Neutrophils # (Auto) 7.7, Lymphocytes # (Auto) 6.5H, Monocytes # (Auto) 1.0, Eosinophils # (Auto) 0.6H, Basophils # (Auto) 0.1, Sodium Level 132L, Potassium Level 4.5, Chloride Level 99, Carbon Dioxide Level 21, Anion Gap 12, Blood Urea Nitrogen 27H, Creatinine 0.88, Estimat Glomerular Filtration Rate > 60, BUN/ Creatinine Ratio 31, Glucose Level 78, Calcium Level 8.9, Phosphorus Level 3.1, Magnesium Level 1.7L Microbiology 07/13/17 Blood Culture - Preliminary, Resulted No growth 07/13/17 Influenza Types A,B Antigen (SINA) - Final, Complete Assessment/Plan Assessment/Plan Plan 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 Likely to need a pacemaker, but there is concern about the persistent leukocytosis. LEUKOCYTOSIS 07/14 - Patient was placed on prednisone 40mg x 6 days and then 20mg x 6 days on Jul 02. Given the weeklong steroid course, I anticipate this is why we are seeing the persistently elevated WBC. I have checked her clinic record, and we don't have a baseline CBC on file. Her old hospital records both show elevated WBC of 13K and 16K. She does not have bands, has negative blood cultures, negative UA, negative CXR, and no fever. I truly believe that she is not currently infected and that placing the pacemaker is reasonable to do tomorrow or as scheduling permits. 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 Has done well since. Continue on home regimen, particularly to avoid . I am agreeable to transfer to floor when Dr Logan is ready. Clinical Quality Measures DVT/VTE Risk/Contraindication: Risk Factor Score Per Nursin RFS Level Per Nursing on Admit: 4+=Very High LORENA CLAY MD 07/16/17 10:50am: Supervisory-Addendum Brief Supervisory Addendum I personally have seen and evaluated the patient and performed the physical exam. I agree with the documented assessment and plan. LOY CINTRON MED STUDENT Jul 15, 2017 11:02 am LORENA CLAY MD Jul 16, 2017 10:50 am
[2017-07-15] MEDS: ACETAMINOPHEN 500 MG TAB (TYLENOL) PO PRN ×2 (12:32→19:46)
[2017-07-15] MEDS: QUEtiapine 100 MG (SEROquel) TAB IMMEDIATE RELEASE PO SCH (20:54)
[2017-07-15] MEDS: SIMvastatin 20 MG (ZOCOR) TAB PO SCH (20:54)
[2017-07-15] MEDS: MONTELUKAST 10 MG (SINGULAIR) TAB PO SCH (20:54)
[2017-07-15] MEDS: ESTRADIOL VAGINAL CREAM 42.5 GM (ESTRACE) VG SCH ×3 (20:55→21:11)
[2017-07-16] VITALS (24 sets, daily range): BP systolic 15–169; BP diastolic 47–127
[2017-07-16] MEDS: HYDROcodone/APAP 5 MG/325 MG (LORTAB) TAB PO PRN (02:27)
[2017-07-16] MEDS: NS IV 1000 ML 1,000 ML IV SCH ×3 (05:14→18:40)
[2017-07-16] MEDS: KCL 20 MEQ TAB (K-DUR) PO SCH (05:30)
[2017-07-16 05:31] LABS: BASOPHILS # (AUTO) 0.1 10^3/uL (0.0-0.1); BASOPHILS % (AUTO) 0 % (0-10); EOSINOPHILS # (AUTO) 0.7 10^3/uL (0.0-0.3); EOSINOPHILS % (AUTO) 5 % (0-10); HEMATOCRIT 36 % (35-52); HEMOGLOBIN 12.2 G/DL (11.5-16.0); LYMPHOCYTES # (AUTO) 4.7 X 10^3 (1.0-4.0); LYMPHOCYTES % (AUTO) 34 % (12-44); MEAN CORPUSCULAR HEMOGLOBIN 31 PG (25-34); MEAN CORPUSCULAR HGB CONC 34 G/DL (32-36); MEAN CORPUSCULAR VOLUME 90 FL (80-99); MEAN PLATELET VOLUME 9.3 FL (7.4-10.4); MONOCYTES # (AUTO) 1.1 X 10^3 (0.0-1.0); MONOCYTES % (AUTO) 8 % (0-12); NEUTROPHILS # (AUTO) 7.6 X 10^3 (1.8-7.8); NEUTROPHILS % (AUTO) 54 % (42-75); PLATELET COUNT 366 10^3/uL (130-400); RED BLOOD COUNT 3.95 10^6/uL (4.35-5.85); RED CELL DISTRIBUTION WIDTH 13.2 % (10.0-14.5); WHITE BLOOD COUNT 14.1 10^3/uL (4.3-11.0)
[2017-07-16] MEDS: FOLIC ACID 1 MG TAB PO SCH (05:31)
[2017-07-16] MEDS: PANTOPRAZOLE 20 MG TABLET (PROTONIX) PO SCH (05:31)
[2017-07-16] MEDS: POTASSIUM CL 10MEQ/50ML IVPB 50 ML IV SCH (05:31)
[2017-07-16] MEDS: MULTIVIT W/MINERALS TAB (THERAGRAN M) PO SCH (05:31)
[2017-07-16] MEDS: MAGNESIUM 1 GM/100 ML IVPB 100 ML IV SCH (05:31)
[2017-07-16 06:05] LABS: BUN/CREATININE RATIO 23; CALCIUM 8.7 MG/DL (8.5-10.1); CARBON DIOXIDE 21 MMOL/L (21-32); CHLORIDE 100 MMOL/L (98-107); CREATININE SERUM 0.79 MG/DL (0.60-1.30); GFR ESTIMATED > 60; GLUCOSE 88 MG/DL (70-105); MAGNESIUM 1.9 MG/DL (1.8-2.4); PHOSPHORUS 2.7 MG/DL (2.3-4.7); POTASSIUM 4.2 MMOL/L (3.6-5.0); SODIUM 129 MMOL/L (135-145)
[2017-07-16] MEDS: FUROSEMIDE 40 MG/4 ML INJ (LASIX) IVP SCH (08:51)
[2017-07-16] MEDS: RIVASTIGMINE 1.5 MG (EXELON) CAP PO SCH ×2 (08:51→21:12)
[2017-07-16] MEDS: LORazepam 0.5 MG (ATIVAN) TABLET PO SCH ×2 (08:51→21:12)
[2017-07-16] MEDS: ACETAMINOPHEN 500 MG TAB (TYLENOL) PO PRN ×2 (09:02→20:06)
[2017-07-16] MEDS ORDERED: LIDOCAINE 1% INJ 50 ML (XYLOCAINE) VIAL ONE (09:36)
[2017-07-16] MEDS ORDERED: HEParin (CATH LAB) 1,000 ML IV ONE (09:37)
--- NOTE | 2017-07-16 10:38 | Diagnostic Imaging Report ---
Indication: Shortness of breath. Comparison: 07/15/2017 Findings: Single view of the chest demonstrates clear lungs bilaterally. Heart is prominent but stable. There was no pneumothorax. The osseous structures are age-appropriate. Impression: Stable cardiac enlargement without pulmonary edema or infiltrate. Dictated by: Dictated on workstation # [id number]
--- NOTE | 2017-07-16 11:01 | Progress Note (SOAP) ---
Subjective Subjective/Events-last exam Vane is ready to get her pacemaker. Her daughter is concerned about the fact that she is on prednisone a lot. Review of Systems Date Seen by Provider: Jul 16, 2017 Time Seen by Provider: 08:00 Pulmonary: No Dyspnea Cardiovascular: No: Chest Pain Objective Exam Last Set of Vital Signs Vital Signs Date Time Temp Pulse Resp B/P (MAP) Pulse Ox O2 Delivery O2 Flow Rate FiO2 07/16/17 10:00 65 28 148/73 (98) 95 Room Air 07/16/17 08:00 97.1 07/14/17 18:00 2.00 Capillary Refill : Less Than 3 Seconds I&O Intake and Output 07/16/17 00:00 Intake Total 1830 ml Output Total 4125 ml Balance -2295 ml Intake Oral 630 ml IV Total 1200 ml Output Urine Total 4125 ml General: Alert, Oriented X3, Cooperative, No Acute Distress Lungs: Clear to Auscultation, Normal Air Movement Heart: Regular Rate, Normal S1, Normal S2, No Murmurs, Gallops, Rubs Abdomen: Normal Bowel Sounds, Soft, No Tenderness, No Hepatosplenomegaly, No Masses Extremities: No Clubbing, No Cyanosis, No Edema Results/Procedures Lab Laboratory Tests 07/16/17 05:05: White Blood Count 14.1H, Red Blood Count 3.95L, Hemoglobin 12.2, Hematocrit 36, Mean Corpuscular Volume 90, Mean Corpuscular Hemoglobin 31, Mean Corpuscular Hemoglobin Concent 34, Red Cell Distribution Width 13.2, Platelet Count 366, Mean Platelet Volume 9.3, Neutrophils (%) (Auto) 54, Lymphocytes (%) (Auto) 34, Monocytes (%) (Auto) 8, Eosinophils (%) (Auto) 5, Basophils (%) (Auto) 0, Neutrophils # (Auto) 7.6, Lymphocytes # (Auto) 4.7H, Monocytes # (Auto) 1.1H, Eosinophils # (Auto) 0.7H, Basophils # (Auto) 0.1, Sodium Level 129L, Potassium Level 4.2, Chloride Level 100, Carbon Dioxide Level 21, Anion Gap 8, Blood Urea Nitrogen 18, Creatinine 0.79, Estimat Glomerular Filtration Rate > 60, BUN/ Creatinine Ratio 23, Glucose Level 88, Calcium Level 8.7, Phosphorus Level 2.7, Magnesium Level 1.9 Microbiology 07/13/17 Blood Culture - Preliminary, Resulted No growth 07/13/17 MRSA Screen - Final, Complete MRSA not isolated Assessment/Plan Assessment/Plan Plan 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 Likely to need a pacemaker, but there is concern about the persistent leukocytosis. 07/16 - Pacemaker today. LEUKOCYTOSIS 07/14 - Patient was placed on prednisone 40mg x 6 days and then 20mg x 6 days on Jul 02. Given the weeklong steroid course, I anticipate this is why we are seeing the persistently elevated WBC. I have checked her clinic record, and we don't have a baseline CBC on file. Her old hospital records both show elevated WBC of 13K and 16K. She does not have bands, has negative blood cultures, negative UA, negative CXR, and no fever. I truly believe that she is not currently infected and that placing the pacemaker is reasonable to do tomorrow or as scheduling permits. 07/16 - continues to trend down no that steroids are off. 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 [place] for [place]. Has done well since. Continue on home regimen, particularly to avoid . 07/16 - stable, no changes. Clinical Quality Measures DVT/VTE Risk/Contraindication: Risk Factor Score Per Nursin RFS Level Per Nursing on Admit: 4+=Very High LORENA CLAY MD Jul 16, 2017 11:01 am
--- NOTE | 2017-07-16 11:24 | Cardiology Progress Note ---
Cardiology SOAP Progress Note Subjective: No cardiac complaints. Objective: I&O/Vital Signs Vital Sign - Last 12Hours 07/16/17 07/16/17 07/16/17 07/16/17 07:00 07:00 08:00 08:00 Temp 97.1 Pulse 60 60 65 Resp 13 27 B/P (MAP) 137/56 (83) 142/68 (92) Pulse Ox 94 96 96 O2 Delivery Room Air Room Air Room Air 07/16/17 07/16/17 07/16/17 07/16/17 09:00 10:00 11:00 12:00 Pulse 64 65 61 Resp 31 28 10 B/P (MAP) 144/66 (92) 148/73 (98) 144/58 (86) Pulse Ox 95 95 96 96 O2 Delivery Room Air Room Air Room Air Room Air 07/16/17 07/16/17 07/16/17 07/16/17 12:00 13:00 13:00 14:00 Pulse 58 67 68 66 Resp 28 22 23 B/P (MAP) 133/60 (84) 123/55 (77) 127/70 (89) Pulse Ox 95 95 95 O2 Delivery Room Air Room Air Room Air 07/16/17 07/16/17 07/16/17 07/16/17 15:00 16:00 16:00 16:00 Temp 98.3 Pulse 64 67 Resp 16 17 B/P (MAP) 152/109 (123) 169/69 (102) Pulse Ox 95 99 96 O2 Delivery Room Air Room Air Room Air 07/16/17 07/16/17 17:00 18:00 Pulse 70 76 Resp 10 19 B/P (MAP) 108/93 (98) 150/65 (93) Pulse Ox 97 95 O2 Delivery Room Air Room Air Intake and Output 07/16/17 00:00 Intake Total 1570 ml Output Total 3025 ml Balance -1455 ml Weight (Pounds): 204 Weight (Ounces): 7.0 Weight (Calculated Kilograms): 92.989101 Constitutional: appears stated age, AAO x 3 Respiratory: chest is bilaterally symmetric, lungs clear to percussion, lungs clear to auscultation Cardiovascular: No regular rate-rhythm, irregularly irregular, No extra beats, No parasternal heave is noted, No JVD, No edema, bradycardia, No tachycardia, No point of maximal impulse, No cardiac thrills are palpable, S1 and S2, No gallop/S3, No gallop/S4, No diastolic murmur, No systolic murmur, No friction rub, No click, No other Gastrointestional: No tender, No soft, No round, No distended, No pulsatile mass, No organomegaly, No guarding, No rebound, No tenderness, No hernia, No mass, No audible bowel sounds, No abnormal bowel sounds, No abdominal bruits, No spleenomegaly, No other Extremities: No normal range of motion, No non-tender, No normal inspection, No pedal edema, No calf tenderness, No normal capillary refill, No pelvis stable , No calf tenderness, No inflammation, No pedal edema, No slow capillary refill , No swelling, No other, No abrasion, No clubbing, No cyanosis, No ecchymosis, No laceration, No no lower extremity edema bilateral, No significant edema, No tenderness, No wound Neurologic/Psychiatric: No assistant manager II-XII nml as tested, No no motor/sensory deficits, alert, normal mood/affect, No oriented x 3, No abnormal cerebellar tests, No abnormal assistant manager II-XII, No abnormal gait, No aphasia, No EOM palsy, No facial droop, No motor weakness, No sensory deficit, No depressed affect, No disoriented x 3, No other, No grossly intact, No power is 5/5 both on sides Skin: No rash, No ulcerations Results/Procedures: Labs Laboratory Tests 07/16/17 05:05: White Blood Count 14.1H, Red Blood Count 3.95L, Hemoglobin 12.2, Hematocrit 36, Mean Corpuscular Volume 90, Mean Corpuscular Hemoglobin 31, Mean Corpuscular Hemoglobin Concent 34, Red Cell Distribution Width 13.2, Platelet Count 366, Mean Platelet Volume 9.3, Neutrophils (%) (Auto) 54, Lymphocytes (%) (Auto) 34, Monocytes (%) (Auto) 8, Eosinophils (%) (Auto) 5, Basophils (%) (Auto) 0, Neutrophils # (Auto) 7.6, Lymphocytes # (Auto) 4.7H, Monocytes # (Auto) 1.1H, Eosinophils # (Auto) 0.7H, Basophils # (Auto) 0.1, Sodium Level 129L, Potassium Level 4.2, Chloride Level 100, Carbon Dioxide Level 21, Anion Gap 8, Blood Urea Nitrogen 18, Creatinine 0.79, Estimat Glomerular Filtration Rate > 60, BUN/ Creatinine Ratio 23, Glucose Level 88, Calcium Level 8.7, Phosphorus Level 2.7, Magnesium Level 1.9 Microbiology 07/13/17 Blood Culture - Preliminary, Resulted No growth 07/13/17 MRSA Screen - Final, Complete MRSA not isolated A/P: Assessment/Dx: shortness of breath, Dizziness, Extreme fatigue, Bradycardia, leukocytosis with left shift, Lactic acidosis, Chronic kidney disease, Congestive heart failure Plan: This is a 77-year-old lady who is a patient of Dr. Victoria. She has been referred for severe bradycardia, weakness, shortness of breath, dizziness. She' s been having these symptoms for the last one to 2 days. She has history of hypertension and hyperlipidemia. She denies diabetes and active smoking. Her daughter had a pacemaker. She denies any chest pain, near-syncope or syncope however she is very dizzy and weak. EKG in the office yesterday shows severe bradycardia with wide complex rhythm right bundle branch morphology, occasional P waves associated with dizziness, fatigue, shortness of breath. Chest examination there is no wheezing however breath sounds are coarse. Permanent pacemaker on Thursday. leukocytosis with left shift and lactic acidosis: Likely a stress response with no focus of infection. Chronic kidney disease: Stage III. Continue to follow. Nephrology consultation as an outpatient. Congestive heart failure: Echocardiogram pending. Based on that we will decide whether this is acute diastolic heart failure or acute systolic congestive heart failure. We will give low-dose Lasix. Thank you for your consultation. Please call me if you have any questions. Emerson Cardozo MD, FACP, FACC, FSCAI, FHRS, CCDS Interventional Cardiology Cardiac Electrophysiology Vascular Medicine and Endovascular Interventions Kody CARDOZO MD Jul 16, 2017 11:24
[2017-07-16] MEDS: SIMvastatin 20 MG (ZOCOR) TAB PO SCH (21:12)
[2017-07-16] MEDS: QUEtiapine 100 MG (SEROquel) TAB IMMEDIATE RELEASE PO SCH (21:12)
[2017-07-16] MEDS: MONTELUKAST 10 MG (SINGULAIR) TAB PO SCH (21:12)
[2017-07-16] MEDS: ESTRADIOL VAGINAL CREAM 42.5 GM (ESTRACE) VG SCH (21:13)
[2017-07-17] VITALS (21 sets, daily range): BP systolic 103–157; BP diastolic 44–78
[2017-07-17] MEDS: NS IV 1000 ML 1,000 ML IV SCH ×2 (02:12→13:05)
[2017-07-17 05:21] LABS: BASOPHILS # (AUTO) 0.1 10^3/uL (0.0-0.1); BASOPHILS % (AUTO) 0 % (0-10); EOSINOPHILS # (AUTO) 0.7 10^3/uL (0.0-0.3); EOSINOPHILS % (AUTO) 4 % (0-10); HEMATOCRIT 34 % (35-52); HEMOGLOBIN 11.7 G/DL (11.5-16.0); LYMPHOCYTES # (AUTO) 3.8 X 10^3 (1.0-4.0); LYMPHOCYTES % (AUTO) 24 % (12-44); MEAN CORPUSCULAR HEMOGLOBIN 31 PG (25-34); MEAN CORPUSCULAR HGB CONC 35 G/DL (32-36); MEAN CORPUSCULAR VOLUME 91 FL (80-99); MEAN PLATELET VOLUME 9.2 FL (7.4-10.4); MONOCYTES # (AUTO) 1.2 X 10^3 (0.0-1.0); MONOCYTES % (AUTO) 7 % (0-12); NEUTROPHILS # (AUTO) 10.2 X 10^3 (1.8-7.8); NEUTROPHILS % (AUTO) 64 % (42-75); PLATELET COUNT 339 10^3/uL (130-400); RED BLOOD COUNT 3.73 10^6/uL (4.35-5.85); RED CELL DISTRIBUTION WIDTH 13.3 % (10.0-14.5); WHITE BLOOD COUNT 15.9 10^3/uL (4.3-11.0)
--- NOTE | 2017-07-17 05:39 | Diagnostic Imaging Report ---
Indication: Shortness of breath Portable chest 5:09 AM Heart size and pulmonary vascular normal. Lungs are clear. There are no effusions or pneumothoraces. Impression: Negative chest. No change from the previous day. Dictated by: Dictated on workstation # [id number]
[2017-07-17 05:51] LABS: BUN/CREATININE RATIO 16; CALCIUM 8.4 MG/DL (8.5-10.1); CARBON DIOXIDE 21 MMOL/L (21-32); CHLORIDE 103 MMOL/L (98-107); CREATININE SERUM 0.75 MG/DL (0.60-1.30); GFR ESTIMATED > 60; GLUCOSE 91 MG/DL (70-105); MAGNESIUM 1.6 MG/DL (1.8-2.4); PHOSPHORUS 2.3 MG/DL (2.3-4.7); POTASSIUM 4.2 MMOL/L (3.6-5.0); SODIUM 133 MMOL/L (135-145)
[2017-07-17] MEDS: MAGNESIUM 1 GM/100 ML IVPB 100 ML IV SCH ×3 (05:52→08:05)
[2017-07-17] MEDS: KCL 20 MEQ TAB (K-DUR) PO SCH (05:52)
[2017-07-17] MEDS: POTASSIUM CL 10MEQ/50ML IVPB 50 ML IV SCH (05:52)
[2017-07-17] MEDS: MULTIVIT W/MINERALS TAB (THERAGRAN M) PO SCH (06:19)
[2017-07-17] MEDS: FOLIC ACID 1 MG TAB PO SCH (06:19)
[2017-07-17] MEDS: PANTOPRAZOLE 20 MG TABLET (PROTONIX) PO SCH (06:19)
[2017-07-17] MEDS: RIVASTIGMINE 1.5 MG (EXELON) CAP PO SCH ×2 (08:12→20:25)
[2017-07-17] MEDS: LORazepam 0.5 MG (ATIVAN) TABLET PO SCH ×2 (08:12→20:26)
[2017-07-17] MEDS: FUROSEMIDE 40 MG/4 ML INJ (LASIX) IVP SCH (08:13)
--- NOTE | 2017-07-17 08:25 | Progress Note (SOAP) ---
Subjective Subjective/Events-last exam Vane is disappointed she was not able to get her pacemaker yesterday and ready to get it done today. She states that she is tired and would like to get out of bed and move around. She still feels dirty. She complains of a headache this morning and thinks it is because she has barely ate anything. She denies any bowel changes though the nurse states that she had 2 loose stools last night. Review of Systems Date Seen by Provider: Jul 17, 2017 Time Seen by Provider: 09:00 General: No Chills, Fatigue HEENT: Head Aches, No Visual Changes Pulmonary: No Dyspnea, No Cough Cardiovascular: No: Chest Pain, Palpitations, Edema Gastrointestinal: Diarrhea, No: Nausea, Vomiting, Abdominal Pain, Constipation Genitourinary: Other (Woodson cath in place) Musculoskeletal: neck pain Neurological: No: Weakness, Numbness Objective Exam Last Set of Vital Signs Vital Signs Date Time Temp Pulse Resp B/P (MAP) Pulse Ox O2 Delivery O2 Flow Rate FiO2 07/17/17 07:00 67 07/17/17 06:00 16 152/70 (97) 94 Room Air 07/17/17 04:00 97.5 07/14/17 18:00 2.00 Capillary Refill : Less Than 3 Seconds I&O Intake and Output 07/17/17 00:00 Intake Total 3640 ml Output Total 3575 ml Balance 65 ml Intake Oral 640 ml IV Total 3000 ml Output Urine Total 3575 ml # Bowel Movements 2 General: Alert, Oriented X3 HEENT: Atraumatic Neck: Supple, No JVD Lungs: Clear to Auscultation, Normal Air Movement Heart: Regular Rate, Normal S1, Normal S2, No Murmurs, Gallops, Rubs Abdomen: Normal Bowel Sounds, Soft, No Tenderness Extremities: No Clubbing, No Cyanosis, No Edema Skin: No Rashes, No Breakdown Neuro: Normal Speech, Normal Tone, Sensation Intact Psych/Mental Status: Mental Status NL, Mood NL Results/Procedures Lab Laboratory Tests 07/17/17 05:05: White Blood Count 15.9H, Red Blood Count 3.73L, Hemoglobin 11.7, Hematocrit 34L , Mean Corpuscular Volume 91, Mean Corpuscular Hemoglobin 31, Mean Corpuscular Hemoglobin Concent 35, Red Cell Distribution Width 13.3, Platelet Count 339, Mean Platelet Volume 9.2, Neutrophils (%) (Auto) 64, Lymphocytes (%) (Auto) 24, Monocytes (%) (Auto) 7, Eosinophils (%) (Auto) 4, Basophils (%) (Auto) 0, Neutrophils # (Auto) 10.2H, Lymphocytes # (Auto) 3.8, Monocytes # (Auto) 1.2H, Eosinophils # (Auto) 0.7H, Basophils # (Auto) 0.1, Sodium Level 133L, Potassium Level 4.2, Chloride Level 103, Carbon Dioxide Level 21, Anion Gap 9, Blood Urea Nitrogen 12, Creatinine 0.75, Estimat Glomerular Filtration Rate > 60, BUN/ Creatinine Ratio 16, Glucose Level 91, Calcium Level 8.4L, Phosphorus Level 2.3 , Magnesium Level 1.6L Microbiology 07/13/17 Blood Culture - Preliminary, Resulted No growth 07/13/17 MRSA Screen - Final, Complete MRSA not isolated Assessment/Plan Assessment/Plan Plan 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 Likely to need a pacemaker, but there is concern about the persistent leukocytosis. 07/16 - Pacemaker today. 07/17 - Pacemaker was not placed yesterday- Will be place today LEUKOCYTOSIS 07/14 - Patient was placed on prednisone 40mg x 6 days and then 20mg x 6 days on Jul 02. Given the weeklong steroid course, I anticipate this is why we are seeing the persistently elevated WBC. I have checked her clinic record, and we don't have a baseline CBC on file. Her old hospital records both show elevated WBC of 13K and 16K. She does not have bands, has negative blood cultures, negative UA, negative CXR, and no fever. I truly believe that she is not currently infected and that placing the pacemaker is reasonable to do tomorrow or as scheduling permits. 07/16 - continues to trend down no that steroids are off. 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 Has done well since. Continue on home regimen, particularly to avoid . 07/16 - stable, no changes. 07/17 - stable - No changes Clinical Quality Measures DVT/VTE Risk/Contraindication: Risk Factor Score Per Nursin RFS Level Per Nursing on Admit: 4+=Very High LOY CINTRON MED STUDENT Jul 17, 2017 08:25
[2017-07-17] MEDS: HYDROcodone/APAP 5 MG/325 MG (LORTAB) TAB PO PRN (10:09)
[2017-07-17] MEDS ORDERED: VANCOMYCIN INJECTION 1,000 MG in NS (IVPB) 250 ML IV ONE (10:15)
--- NOTE | 2017-07-17 11:04 | Cardiology Progress Note ---
Cardiology SOAP Progress Note Subjective: No cardiac symptoms. Objective: I&O/Vital Signs Vital Sign - Last 12Hours 07/17/17 07/17/17 07/17/17 07/17/17 02:00 03:00 04:00 04:00 Temp 97.5 Pulse 63 80 Resp 25 32 B/P (MAP) 115/74 (88) 117/62 (80) Pulse Ox 93 95 95 O2 Delivery Room Air Room Air Room Air 07/17/17 07/17/17 07/17/17 07/17/17 04:00 05:00 06:00 07:00 Pulse 67 69 63 65 Resp 32 16 16 25 B/P (MAP) 120/50 (73) 131/61 (84) 152/70 (97) 133/60 (84) Pulse Ox 93 93 94 93 O2 Delivery Room Air Room Air Room Air Room Air 07/17/17 07/17/17 07/17/17 07/17/17 07:00 08:00 08:00 08:00 Temp 98.3 Pulse 67 68 Resp 16 B/P (MAP) 152/78 (102) Pulse Ox 95 96 O2 Delivery Room Air Room Air 07/17/17 07/17/17 07/17/17 07/17/17 09:00 10:00 11:00 12:00 Pulse 64 63 69 Resp 20 38 30 B/P (MAP) 135/59 (84) 146/67 (93) 157/74 (101) Pulse Ox 96 95 94 96 O2 Delivery Room Air Room Air Room Air Room Air Intake and Output 07/17/17 00:00 Intake Total 1520 ml Output Total 1225 ml Balance 295 ml Weight (Pounds): 208 Weight (Ounces): 8.0 Weight (Calculated Kilograms): [id number] Constitutional: appears stated age, AAO x 3 Respiratory: chest is bilaterally symmetric, lungs clear to percussion, lungs clear to auscultation Cardiovascular: No regular rate-rhythm, irregularly irregular, No extra beats, No parasternal heave is noted, No JVD, No edema, bradycardia, No tachycardia, No point of maximal impulse, No cardiac thrills are palpable, S1 and S2, No gallop/S3, No gallop/S4, No diastolic murmur, No systolic murmur, No friction rub, No click, No other Gastrointestional: No tender, No soft, No round, No distended, No pulsatile mass, No organomegaly, No guarding, No rebound, No tenderness, No hernia, No mass, No audible bowel sounds, No abnormal bowel sounds, No abdominal bruits, No spleenomegaly, No other Extremities: No normal range of motion, No non-tender, No normal inspection, No pedal edema, No calf tenderness, No normal capillary refill, No pelvis stable , No calf tenderness, No inflammation, No pedal edema, No slow capillary refill , No swelling, No other, No abrasion, No clubbing, No cyanosis, No ecchymosis, No laceration, No no lower extremity edema bilateral, No significant edema, No tenderness, No wound Neurologic/Psychiatric: No navy seal II-XII nml as tested, No no motor/sensory deficits, alert, normal mood/affect, No oriented x 3, No abnormal cerebellar tests, No abnormal navy seal II-XII, No abnormal gait, No aphasia, No EOM palsy, No facial droop, No motor weakness, No sensory deficit, No depressed affect, No disoriented x 3, No other, No grossly intact, No power is 5/5 both on sides Skin: No rash, No ulcerations Results/Procedures: Labs Laboratory Tests 07/17/17 05:05: White Blood Count 15.9H, Red Blood Count 3.73L, Hemoglobin 11.7, Hematocrit 34L , Mean Corpuscular Volume 91, Mean Corpuscular Hemoglobin 31, Mean Corpuscular Hemoglobin Concent 35, Red Cell Distribution Width 13.3, Platelet Count 339, Mean Platelet Volume 9.2, Neutrophils (%) (Auto) 64, Lymphocytes (%) (Auto) 24, Monocytes (%) (Auto) 7, Eosinophils (%) (Auto) 4, Basophils (%) (Auto) 0, Neutrophils # (Auto) 10.2H, Lymphocytes # (Auto) 3.8, Monocytes # (Auto) 1.2H, Eosinophils # (Auto) 0.7H, Basophils # (Auto) 0.1, Sodium Level 133L, Potassium Level 4.2, Chloride Level 103, Carbon Dioxide Level 21, Anion Gap 9, Blood Urea Nitrogen 12, Creatinine 0.75, Estimat Glomerular Filtration Rate > 60, BUN/ Creatinine Ratio 16, Glucose Level 91, Calcium Level 8.4L, Phosphorus Level 2.3 , Magnesium Level 1.6L Microbiology 07/13/17 Blood Culture - Preliminary, Resulted No growth 07/16/17 C. difficile GDH Antigen & Toxins - Final, Complete 07/13/17 MRSA Screen - Final, Complete MRSA not isolated A/P: Assessment/Dx: shortness of breath, Dizziness, Extreme fatigue, Bradycardia, leukocytosis with left shift, Lactic acidosis, Chronic kidney disease, Congestive heart failure Plan: This is a 77-year-old lady who is a patient of Dr. Victoria. She has been referred for severe bradycardia, weakness, shortness of breath, dizziness. She' s been having these symptoms for the last one to 2 days. She has history of hypertension and hyperlipidemia. She denies diabetes and active smoking. Her daughter had a pacemaker. She denies any chest pain, near-syncope or syncope however she is very dizzy and weak. EKG in the office yesterday shows severe bradycardia with wide complex rhythm right bundle branch morphology, occasional P waves associated with dizziness, fatigue, shortness of breath. Chest examination there is no wheezing however breath sounds are coarse. Permanent pacemaker today. leukocytosis with left shift and lactic acidosis: Likely a stress response with no focus of infection. Chronic kidney disease: Stage III. Continue to follow. Nephrology consultation as an outpatient. Congestive heart failure: diastolic heart failure. Thank you for your consultation. Please call me if you have any questions. Emerson Cardozo MD, FACP, FACC, FSCAI, FHRS, CCDS Interventional Cardiology Cardiac Electrophysiology Vascular Medicine and Endovascular Interventions Kody CARDOZO MD Jul 17, 2017 11:04 am
[2017-07-17] MEDS ORDERED: NS (IVPB) 250 ML ONE (11:05)
[2017-07-17] MEDS ORDERED: VANCOMYCIN 1000 MG/VIAL ONE (11:05)
[2017-07-17] MEDS ORDERED: BACITRACIN INJECTION 50,000 UNIT, SODIUM CHLORIDE 0.9% IRRIGATIO 500 ML IR NR ×2 (12:19)
[2017-07-17] MEDS ORDERED: MIDAZOLAM 5 MG/5 ML (VERSED) VIAL ONE ×2 (12:21→13:36)
[2017-07-17] MEDS ORDERED: fentaNYL INJECTION 100 MCG/2 ML AMP ONE ×2 (12:21→14:10)
[2017-07-17] MEDS ORDERED: diphenhydrAMINE 50 MG/ML INJ (BENADRYL) ONE (12:21)
--- NOTE | 2017-07-17 13:23 | Cardiac Procedure Note-CS/ASA ---
Pre-Procedure Note Pre-Op Procedure Note H&P Reviewed The H&P was reviewed, patient examined and no changes noted. Date H&P Reviewed: Jul 17, 2017 Time H&P Reviewed: 13:23 Conscious Sedation Pre-Proced Time Reviewed: :23 ASA Class: 3 Airway Mallampati Classification: (kiana appropriate class) I. II. III, IV Lungs Heart ASA score ASA 1: a normal healthy patient ASA 2: a patient with a mild systemic disease (mid diabetes, controlled hypertension, obesity ASA 3: a patient with a severe systemic disease that limits activity (angina , COPD, prior Myocardial infarction) ASA 4: a patient with an incapacitating disease that is a constant threat to life (CHF, renal failure) ASA 5: a moribund patient not expected to survive 24 hrs. (ruptured aneurysm) ASA 6: a declared brain patient whose organs are being harvested. For emergent operations, add the letter E after the classification Grade 1 Sedation Plan: Analgesia, Amnesia, Plan communicated to team members, Discussed options with patient/fam, Discussed risks with patient/fam Note The patient is an appropriate candidate to undergo the planned procedure, sedation, and anesthesia. The patient immediately re-assessed prior to indication. Kody CARDOZO MD Jul 17, 2017 1:23 pm
[2017-07-17] MEDS ORDERED: NEO/POLY/BAC (NEOSPORIN) OINT 15 GM TUBE ONE (14:48)
[2017-07-17] MEDS ORDERED: NS IV 1000 ML 1,000 ML IV SCH (15:14)
--- NOTE | 2017-07-17 15:14 | Permanent Pacemaker Implant ---
Dual Chamber Pacemaker Implant PROCEDURE PHYSICIAN: Emerson Cardozo MD DUAL CHAMBER PACEMAKER IMPLANTATION: DATE OF PROCEDURE: 07/17/17 REFERRING PHYSICIAN: Dr. Victoria ATTENDING PHYSICIAN: Dr. Charlie Cardozo INDICATION: severe symptomatic sinus node dysfunction. PREOPERATIVE DIAGNOSIS: severe symptomatic sinus node dysfunction. POSTOPERATIVE DIAGNOSIS: successful dual chamber permanent pacemaker implantation. HISTORY: this is a 77-year-old lady who presented to us in the office with complaints of significant fatigue and dizziness and bradycardia. She was not on any rate controlling agents. She was found to be in a slow junctional rhythm at 39 BPM. She was admitted to the ICU and observed clinically. Dual-chamber permanent pacemaker was recommended. PROCEDURE PERFORMED: 1. Dual-chamber permanent pacemaker implantation. 2. Fluoroscopy. 3. Central venous access. ANESTHESIA: Local anesthesia, conscious sedation. COMPLICATIONS: None. ESTIMATED BLOOD LOSS:20 mL. SPECIMENS: None. ORAL ANTICOAGULATION: None. FLUOROSCOPY TIME: 9.26 minutes. FLUOROSCOPY DOSE: [id number]. CONTRAST DOSE: none. PROCEDURE DETAILS: The patient is a 77 female and after all of the patients questions were answered, the patient was brought to the EP Lab. The patient's left chest was prepped and draped in sterile fashion. A 2 inch horizontal incision was made 1 cm below the clavicle and dissection carried down to the pectoralis fascia. Using the modified Seldinger technique and under fluoroscopy guidance, the anterior aspect of the left axillary vein was accessed 2 times. The J wires were secured to the drapes with a mosquito clamp. A 7-Macedonian sheath was introduced over one of the J-wires. The RV lead was then inserted. The RV lead was directed across the tricuspid valve to the apical septal portion of the right ventricle. The position was checked in YORUBA and NICHOLS views. The screw was deployed and the lead connected to the cad cam programmer. Close sensing and pacing thresholds were obtained. Diaphragmatic pacing was ruled out. The lead was secured with 2-0 silk ties to the underlying muscle and fascia. Next, a 7-Macedonian sheath was introduced through the remaining J-wire. An atrial lead was then introduced and guided to the level of the right appendage. The screw was deployed and the lead was connected to the interrogator. Good sensing and pacing thresholds were obtained. Diaphragmatic pacing was ruled out. The leads were secured with 2-0 silk ties to the underlying muscle and fascia. The leads were connected to the device in a hermetic fashion. The device and leads were placed in the pocket. Aggressive irrigation with saline solution was done. The device was secured to the underlying muscle and fascia with a 2-0 silk tie. interrogation of the device revealed good integrity of all the leads and good connections. The wound was then closed using 2 layers. The first layer was interrupted 2-0 absorbable Vicryl suture. The last layer was a single subcuticular layer with 4- 0 Vicryl suture. Half inch Steri-Strips and a small dressing were then applied to the wound. The patient tolerated the procedure well and was returned to the recovery room in stable condition with stable vital signs. DEVICE INFORMATION: [employer] Eluna 8 DR-T. Reference [id number]. Serial number [id number]. PID 57. RA LEAD: Solia S 45. reference number [id number]. Serial number [id number]. RV LEAD: Solia S 53. reference number [id number]. Serial number [id number]. PER-OPERATIVE DEVICE INTERROGATION: P-wave sensing 3.8 mV. Impedance 488 ohms. Threshold 1.2V at 0.4 ms. R-wave 10.5 mV. Impedance 792 ohms. Threshold 0.8 V at 0.4 ms. IMMEDIATE POSTOPERATIVE DEVICE INTERROGATION: RA sensing 4.3 mV, impedance 468 ohms, threshold 0.8 V at 0.4 ms. RV sensing 10.3 mV, impedance 741 ohms, threshold 0.6 V at 0.4 ms. PLAN: The patient transferred to the ICU. We will continue with two more doses of IV antibiotics. We will check a chest x-ray and interrogate the device in the morning. The patient will continue on oral antibiotics for 5 days. Emerson Cardozo MD, RS, CCDS Cardiac Electrophysiology Kody CARDOZO MD Jul 17, 2017 3:14 pm
[2017-07-17] MEDS ORDERED: PATIENT MAY USE OWN MEDS, ALL PO SCH (15:15)
[2017-07-17] MEDS ORDERED: VANCOMYCIN 2000 MG/NS 500 ML IVPB IV NR ×2 (16:00)
--- NOTE | 2017-07-17 18:04 | Diagnostic Imaging Report ---
INDICATION: Pacemaker placement. TECHNIQUE: Frontal chest obtained at 3:16 p.m. and compared with same day at 5:30 a.m. FINDINGS: There is a new dual-lead pacemaker device in place with right atrial and right ventricular leads. The battery pack is over the left chest wall. There is no pneumothorax or pleural fluid. The heart is borderline in size. There is no focal infiltrate. Previous right shoulder prosthesis is unchanged. IMPRESSION: New pacemaker device in place as above. Borderline heart size. No pneumothorax or pleural fluid following device placement. Dictated by: Dictated on workstation # [id number]
[2017-07-17] MEDS: MONTELUKAST 10 MG (SINGULAIR) TAB PO SCH (20:25)
[2017-07-17] MEDS: SIMvastatin 20 MG (ZOCOR) TAB PO SCH (20:25)
[2017-07-17] MEDS: QUEtiapine 100 MG (SEROquel) TAB IMMEDIATE RELEASE PO SCH (20:25)
[2017-07-17] MEDS: ACETAMINOPHEN 500 MG TAB (TYLENOL) PO PRN (20:26)
[2017-07-17] MEDS: ESTRADIOL VAGINAL CREAM 42.5 GM (ESTRACE) VG SCH (20:26)
[2017-07-17] MEDS ORDERED: VANCOMYCIN INJECTION 1,000 MG in NS (IVPB) 250 ML IV SCH (21:00)
[2017-07-18] VITALS (15 sets, daily range): BP systolic 105–146; BP diastolic 5–88
[2017-07-18 04:06] LABS: BASOPHILS # (AUTO) 0.1 10^3/uL (0.0-0.1); BASOPHILS % (AUTO) 1 % (0-10); EOSINOPHILS # (AUTO) 0.7 10^3/uL (0.0-0.3); EOSINOPHILS % (AUTO) 5 % (0-10); HEMATOCRIT 34 % (35-52); HEMOGLOBIN 11.2 G/DL (11.5-16.0); LYMPHOCYTES # (AUTO) 3.3 X 10^3 (1.0-4.0); LYMPHOCYTES % (AUTO) 25 % (12-44); MEAN CORPUSCULAR HEMOGLOBIN 30 PG (25-34); MEAN CORPUSCULAR HGB CONC 33 G/DL (32-36); MEAN CORPUSCULAR VOLUME 91 FL (80-99); MEAN PLATELET VOLUME 9.2 FL (7.4-10.4); MONOCYTES # (AUTO) 1.1 X 10^3 (0.0-1.0); MONOCYTES % (AUTO) 8 % (0-12); NEUTROPHILS # (AUTO) 8.1 X 10^3 (1.8-7.8); NEUTROPHILS % (AUTO) 62 % (42-75); PLATELET COUNT 324 10^3/uL (130-400); RED CELL DISTRIBUTION WIDTH 13.4 % (10.0-14.5); WHITE BLOOD COUNT 13.2 10^3/uL (4.3-11.0)
[2017-07-18 04:38] LABS: ALANINE AMINOTRANSFERASE 11 U/L (0-55); ALBUMIN 3.2 GM/DL (3.2-4.5); ALKALINE PHOSPHATASE 42 U/L (40-136); BILIRUBIN,TOTAL 0.5 MG/DL (0.1-1.0); BUN/CREATININE RATIO 16; CALCIUM 8.5 MG/DL (8.5-10.1); CARBON DIOXIDE 20 MMOL/L (21-32); CHLORIDE 105 MMOL/L (98-107); CREATININE SERUM 0.74 MG/DL (0.60-1.30); GFR ESTIMATED > 60; GLUCOSE 92 MG/DL (70-105); MAGNESIUM 1.7 MG/DL (1.8-2.4); PHOSPHORUS 2.7 MG/DL (2.3-4.7); SODIUM 132 MMOL/L (135-145); TOTAL PROTEIN 5.2 GM/DL (6.4-8.2)
[2017-07-18] MEDS: MAGNESIUM 1 GM/100 ML IVPB 100 ML IV SCH ×3 (05:45→06:43)
[2017-07-18] MEDS: KCL 20 MEQ TAB (K-DUR) PO SCH (05:45)
[2017-07-18] MEDS: POTASSIUM CL 10MEQ/50ML IVPB 50 ML IV SCH (05:45)
[2017-07-18] MEDS: FOLIC ACID 1 MG TAB PO SCH (05:45)
[2017-07-18] MEDS: MULTIVIT W/MINERALS TAB (THERAGRAN M) PO SCH (05:45)
[2017-07-18] MEDS: PANTOPRAZOLE 20 MG TABLET (PROTONIX) PO SCH (05:46)
[2017-07-18] MEDS ORDERED: VANCOMYCIN IV SCH ×2 (06:00)
[2017-07-18] MEDS ORDERED: NS IV SCH ×2 (06:00)
[2017-07-18] MEDS: LORazepam 0.5 MG (ATIVAN) TABLET PO SCH (08:41)
[2017-07-18] MEDS: RIVASTIGMINE 1.5 MG (EXELON) CAP PO SCH (08:41)
--- NOTE | 2017-07-18 08:42 | Diagnostic Imaging Report ---
Portable chest compared to prior study from 07/17/2017. INDICATION: Shortness of breath. FINDINGS: Pacemaker device unchanged. There is no pneumothorax. Lungs are clear. Heart size stable. There is no effusion. Prior right shoulder arthroplasty again noted. IMPRESSION: Stable appearance of the chest. There is no pneumothorax after recent pacemaker placement. There is no evidence of failure. The lungs appear clear. Dictated by: Dictated on workstation # [id number]
[2017-07-18] MEDS: FUROSEMIDE 40 MG/4 ML INJ (LASIX) IVP SCH (08:43)
--- NOTE | 2017-07-18 12:39 | Cardiology Discharge Summary ---
Diagnosis/Chief Complaint Date of Admission Jul 13, 2017 at 12:30 pm Date of Discharge 07/18/2017 Admission Diagnosis Severe symptomatic sinus node dysfunction Final/Discharge Diagnosis Dual-chamber permanent pacemaker implantation Chief Complaint/HPI Chief Complaint/HPI This is a 77-year-old lady who is a patient of Dr. Victoria. She has been referred for severe bradycardia, weakness, shortness of breath, dizziness. She' s been having these symptoms for the last one to 2 days. She has history of hypertension and hyperlipidemia. She denies diabetes and active smoking. Her daughter had a pacemaker. She denies any chest pain, near-syncope or syncope however she is very dizzy and weak. she denies any GI or symptoms. Discharge Summary Procedures Dual-chamber permanent pacemaker implantation yesterday Discharge Physical Examination Normal left chest wound Normal cardiovascular examination. Normal respiratory examination. Hospital Course Initially was found to have leukocytosis which was likely a stress a small. No evidence of infection. Mild heart failure which responded to Lasix. Dual- chamber permanent pacemaker yesterday. Chest x-ray shows no pneumothorax. Normal device interrogation this morning. Radiology Reviewed Chest x-ray showed normal lungs with no pneumothorax. Discussion & Recommendations Discussion Discharge took over 30 minutes to complete. Discharge instructions discussed at length with the patient. Plan discussed with the RN as well. Follow up appt.: Dr. Cardozo in one week Dicharge Diet: Cardiac Diet Activity as Tolerated: Yes Home Medications Reviewed patient Home Medication Reconciliation Form Discharge Home Medications: Reviewed and agree with Discharge Medication list on patient's Discharge Instruction sheet Condition at discharge Stable Instructions to patient/family Follow-up with Dr. Cardozo in one week Clinical Quality Measures DVT/VTE Risk/Contraindication: Risk Factor Score Per Nursin RFS Level Per Nursing on Admit: 4+=Very High Kody CARDOZO MD Jul 18, 2017 12:39 pm
[2017-07-18] MEDS ORDERED: CLIN300C11 PO (12:44)
--- NOTE | 2017-07-18 12:45 | Discharge Inst-Post Device ---
Discharge Inst-Post Device Follow up/Plan Dr. Logan in one week Heart Healthy Diet Do not lift arm on side of device placement above head for 4 weeks. Do not push and pull heavy objects for 4 weeks. Activity as tolerated. Leave dressing on until follow up at the office. Kody LOGAN MD Jul 18, 2017 12:45 pm
== END 2017-07-18 13:50 | DRG 242 ==
LOC: EDUNIT# 11:01 → ER 11:02 → ICU 12:30
PROVIDERS: ADMIT Internal Medicine Interventional Cardiology; ATTEND Internal Medicine Interventional Cardiology
PROC: 02HK3JZ Insertion of Pacemaker Lead into Right Ventricle, Percutaneous Approach (ICD-10-PCS; principal; 2017-07-17)
PROC: 02H63JZ Insertion of Pacemaker Lead into Right Atrium, Percutaneous Approach (ICD-10-PCS; 2017-07-17)
PROC: 0JH606Z Insertion of Pacemaker, Dual Chamber into Chest Subcutaneous Tissue and Fascia, Open Approach (ICD-10-PCS; 2017-07-17)
DX: I49.5 Sick sinus syndrome (principal); E86.0 Dehydration; I13.0 Hypertensive heart and chronic kidney disease with heart failure and stage 1 through stage 4 chronic kidney disease, or unspecified chronic kidney disease; I50.21 Acute systolic (congestive) heart failure; I50.31 Acute diastolic (congestive) heart failure; N18.3 Chronic kidney disease, stage 3 (moderate); E87.2 Acidosis; E87.8 Other disorders of electrolyte and fluid balance, not elsewhere classified; D72.829 Elevated white blood cell count, unspecified; T38.0X5A Adverse effect of glucocorticoids and synthetic analogues, initial encounter; J44.9 Chronic obstructive pulmonary disease, unspecified; G31.84 Mild cognitive impairment of uncertain or unknown etiology; E78.00 Pure hypercholesterolemia, unspecified; R32 Unspecified urinary incontinence; F03.90 Unspecified dementia, unspecified severity, without behavioral disturbance, psychotic disturbance, mood disturbance, and anxiety; F41.9 Anxiety disorder, unspecified; M19.90 Unspecified osteoarthritis, unspecified site; M54.9 Dorsalgia, unspecified; K58.9 Irritable bowel syndrome, unspecified; K59.09 Other constipation; Z87.11 Personal history of peptic ulcer disease; Z86.010 Personal history of colon polyps; Z96.611 Presence of right artificial shoulder joint
CPT/HCPCS: 33208; 36415; 51701; 71045; 76937; 80048; 80053; 81000; 82550; 82553; 83605; 83735; 83880; 84100; 84443; 84484; 85007; 85025; 85027; 85610; 85730; 87040; 87081; 87324; 87449; 87804; 93005; 93041; 93306; 96360

== ENCOUNTER 2017-09-26 22:41 | Emergency (ER) | payer MEDICARE, MEDICAID ==
[~2017-09-26] VITALS: Ht 160 cm; Wt 92.6 kg
[~2017-09-26 22:41] MED LIST changes: +CALC-6 PO; +CLIN300C11 PO; +ESTR10TA4 VG; +FLUT16SP22 NSEACH; +FOLI1TAB24 PO; +HYDR25TA4 PO; +IBAN150T8 PO; +QUET100T69 PO; +TRAM50TA2 PO; +TRIA80OI TP
--- OUTSIDE RECORDS SUMMARY | 2017-09-26 22:49 | XMS REPORT | Continuity of Care Document ---
Author Author [facility] Organization [facility] Address Unknown Phone Unavailable Allergies Active Description Code Type Severity Reaction Onset Reported/Identified Relationship to Patient Clinical Status Yes ASPIRIN ASPIRIN MODERATE Yes KETOROLAC KETOROLAC MILD Yes MORPHINE MORPHINE MILD Yes PAXIL PAXIL MODERATE Yes PENICILLIN G POTASSIUM PENICILLIN G POTASSI MODERATE Yes TETRACYCLINE HCL (BULK) TETRACYCLINE HCL (BU MODERATE Yes ASPIRIN MODERATE UNKNOWN Yes KETOROLAC MILD UNKNOWN Yes MORPHINE MILD UNKNOWN Yes PAXIL MODERATE UNKNOWN Yes PENICILLIN G POTASSIUM MODERATE DERMATOLOGICAL - HIV Yes TETRACYCLINE HCL (BULK) MODERATE DERMATOLOGICAL - PHUONG Yes ketorolac [id number] Drug Allergy Mild N/A 08/13/2015 Yes morphine [id number] Drug Allergy Mild N/A 08/13/2015 Yes Penicillins [id number] Drug Allergy Mild N/A 08/13/2015 Yes tetracycline [id number] Drug Allergy Mild N/A 08/13/2015 Yes aspirin NKMA Medium N/A 11/23/2015 Yes Paxil NKMA N/A N/ A 11/23/2015 Yes tetracycline NKMA Medium N/A 11/23/2015 Yes Toradol NKMA Severe N/A 11/23/2015 Yes paroxetine [id number] Drug Allergy Unknown N/A 02/24/2016 Medications Medication Packaging Start Date Stop Date Route Dosage Sig omeprazole(omeprazole) 2015 Oral Oral, Daily, 0 Refill(s) fluconazole(fluconazole) 2015 0 Refill(s) LORazepam(Ativan) 11/23/2015 0 Refill(s) ondansetron(Zofran) 2 mL 201511/23/2015 IV Push 4 mg 4 mg=2 mL, IV Push, Once ondansetron(Zofran) 2 mL 201511/23/2015 IV Push 4 mg 4 mg=2 mL, IV Push, Once omeprazole(omeprazole) 2015 Oral Oral, Daily, 0 Refill(s) lisinopril(lisinopril) 2015 Oral Oral, Daily, 0 Refill(s) LORazepam(LORazepam) 11/23/2015 0 Refill(s) pravastatin(pravastatin) 2015 Oral Oral, Bedtime (once a day), 0 Refill(s) citalopram(citalopram) 2015 Oral Oral, Daily, 0 Refill(s) montelukast(Singulair) 2015 Daily, 0 Refill(s) tetanus/diphth/pertuss (Tdap) adult/adol(tetanus/diphth/pertuss ( Tdap) adult/adol 5 units-2.5 units-18.5 mcg/0.5 mL intramuscular suspension) 0.5 mL 11/23/2015 11/23/2015 IntraMuscular 0.5 mL, IntraMuscular, As Indicated HYDROcodone-acetaminophen([place] 5 mg-325 mg oral tablet) 1 tabs 11/23/2015 11/23/2015 Oral 1 tabs, Oral, Once ACETAMINOPHEN ORAL TABLET 325mg(Tylenol) MG 06/18/2016 06/25/2016 PRN EVERY 6 Hour ALUM/MAG/SIMETH 30CC LIQ 0 (MYLANTA PLUS) cc 06/18/2016 06/28/2016 PRN Q4H POLYETHYLENE GLYCOL POWDER UD PWD 0 (MIRALAX 17GM UNIT DOSE PAKS) gm 06/18/2016 06/28/2016 PRN Q3H HYDROCODONE/APAP 5MG/325MG TAB 5 MG/325MG (VIDHYA-TAB 5/325) TAB 06/18/2016 07/18/2016 PRN BID CALMOSEPTINE OINT TUBE OINT 0 (RISAMINE OINT TUBE) ady 06/18/2016 06/25/2016 PRN QID LOPERAMIDE CAP 2 MG (IMMODIUM) MG 06/18/2016 06/25/2016 PRN QID DIPHENHYDRAMINE TAB 25 MG (BENADRYL) MG 06/18/2016 07/18/2016 PRN Q6H SIMVASTATIN TAB 40 MG (ZOCOR) MG 06/24/2016 QPM&2000 MACROBID CAP 100 MG (NITROFURANTOIN-BID CAP) MG 06/18/2016 06/25/2016 BID&08 LISINOPRIL TAB 10 MG (ZESTRIL) MG 06/18/2016 07/18/2016 BID&08,1999 MILK OF AJIT LIQ 0 ml 201606/25/2016 PRN BID LORAZEPAM TAB 0.5 MG (ATIVAN) MG 07/17/2016 QHS&2100 MELATONIN TAB 3 MG (MELATONIN) MG 06/18/2016 07/17/2016 QHS&2100 CHOLESTYRAMINE PKT PKT 4 GM (QUESTRAN CORDELL) GM 06/18/2016 07/17/2016 QHS&2100 AMLODIPINE TAB 5 MG (NORVASC) MG 07/17/2016 QHS&2100 TRAZODONE TAB 50 MG (DESYREL) MG 07/18/2016 PRN QHS ESTROGEN VAGINAL CREAM CRM 0 (PREMARIN/ESTRACE) ady 06/18/2016 07/17/2016 QHS&2100 MELOXICAM TAB 7.5 MG (MOBIC) MG 05/201707/18/2016 Daily&0900 LORAZEPAM TAB 0.5 MG (ATIVAN) MG 07/18/2016 Daily&0900 Rivastigmine TD Patch 24 hour 9.5mg (EXELON) MG 06/19/2016 06/28/2016 Daily&0900 Rivastigmine TD Patch 24 hour 4.6mg (EXELON) MG 06/19/2016 06/28/2016 Daily&0900 PANTOPRAZOLE TAB 40 MG (PROTONIX) MG 06/19/2016 06/25/2016 Daily&0900 CITALOPRAM TAB 20 MG (CELEXA) MG 07/18/2016 Daily&0900 MultiVits (Thera M Plus) (hlipwzls-bxha-fnnnjxr) oral tablet TAB 06/19/2016 07/18/2016 Daily&0900 CALCIUM 600MG W VIT D TAB 600 MG (OSCAL/W VIT D) MG 06/19/2016 07/18/2016 Daily&0900 MONTELUKAST TAB 10 MG (SINGULAIR) MG 06/19/2016 07/18/2016 Daily&0900 PANTOPRAZOLE TAB 20 MG (PROTONIX) MG 06/19/2016 07/18/2016 Daily&0900 RIVASTIGMINE CAP 1.5 MG (EXELON) MG 06/19/2016 07/19/2016 BID&0800,2000 CHOLESTYRAMINE PKT PKT 4 GM (QUESTRAN CORDELL) GM 06/20/2016 07/19/2016 Daily&0900 LORAZEPAM TAB 0.5 MG (ATIVAN) MG 07/22/2016 PRN Q6H METHYLPREDNISOLONE DOS CORDELL TAB 4 MG (MEDROL DOS CORDELL) MG 06/23/2016 06/28/2016 QID&0800,1200,1700,2200 hydrocortisone cream 2.5% rectal (Anusol HC) ADY 06/24/2016 07/04/2016 PRN BID CALMOSEPTINE OINTMENT UD OINT 0 (CALMOSEPTINE UNIT DOSE) ady 06/25/2016 07/24/2016 BID&0800,2000 ACETAMINOPHEN ORAL TABLET 325mg(Tylenol) MG 06/25/2016 07/05/2016 PRN EVERY 6 Hour CALMOSEPTINE OINT TUBE OINT 0 (RISAMINE OINT TUBE) ady 06/25/2016 07/05/2016 PRN QID LOPERAMIDE CAP 2 MG (IMMODIUM) MG 06/25/2016 07/05/2016 PRN QID MILK OF MAGNESIA LIQ 0 ml 201607/02/2016 PRN BID MELOXICAM TAB 7.5 MG (MOBIC) Dose(s) 07/19/2016 08/17/2016 Daily&0900 Problems Date Dx Coded Attending Type Code Diagnosis Diagnosed By 08/13/2015 VARGAS DURAND DO Ot F41.9 ANXIETY DISORDER, UNSPECIFIED 08/13/2015 VARGAS DURAND DO Ot I51.7 CARDIOMEGALY 08/13/2015 VARGAS DURAND DO Ot J40 BRONCHITIS, NOT SPECIFIED ACUTE OR CH 08/13/2015 VARGAS DURAND DO Ot K21.9 GASTRO-ESOPHAGEAL REFLUX DISEASE WITHOUT 08/19/2015 VARGAS DURAND DO Ot F41.9 08/19/2015 MELONY DURAND DOR L Ot I51.7 08/19/2015 VARGAS DURAND DO Ot J40 08/19/2015 VARGAS DURAND DO Ot K21.9 11/15/2015 A V54.01 ENCOUNTER FOR REMOVAL OF INTERNAL FIXATION DEVICE 11/15/2015 A Z47.2 ENCOUNTER FOR REMOVAL OF INTERNAL FIXATION DEVICE 11/24/2015 KINNEAR ODILIA LEONG Ot F41.9 ANXIETY DISORDER, UNSPECIFIED 11/24/2015 KINNEAR ODILIA LEONG Ot S01.112A LACERATION W/O FB OF LEFT EYELID AND PER [facility]A FRACTURES OF OTH SKULL AND FACIAL BONES, 11/24/2015 [facility] S06.0X0A CONCUSSION WITHOUT LOSS OF CONSCIOUSNESS 11/24/2015 [facility] Ot W17.89XA OTHER FALL FROM ONE LEVEL TO ANOTHER, IN 11/24/2015 [facility] Ot Y92.[address] IN SINGLE-FAMILY (PRIVATE) [facility] 11/24/2015 JAYA ODILIA Baptiste Ot Y99.8 OTHER EXTERNAL CAUSE STATUS 11/26/2015 [facility] F41.9 ANXIETY DISORDER, UNSPECIFIED 11/26/2015 [facility] S01.112A LACERATION W/O FB OF LEFT EYELID AND PER 11/26/2015 [facility] S02.8XXA FRACTURES OF OTH SKULL AND FACIAL BONES, 11/26/2015 [facility] S06.0X0A CONCUSSION WITHOUT LOSS OF CONSCIOUSNESS 11/26/2015 [facility] W17.89XA OTHER FALL FROM ONE LEVEL TO ANOTHER, IN 11/26/2015 [facility] ODILIA Baptiste Ot Y92.[address] IN SINGLE-FAMILY (PRIVATE) [facility] 11/26/2015 JAYA DO ODILIA Baptiste Ot Y99.8 OTHER EXTERNAL CAUSE STATUS 11/29/2015 Yeager Curt Final S01.01XA Laceration without foreign body of scalp, initial encounter 11/29/2015 Yeager Curt Reason S09.90XA Unspecified injury of head, initial encounter 11/29/2015 Yeager Curt Final W10.8XXA Fall (on) (from) other stairs and steps, initial encounter 11/29/2015 Yeager Curt Final Y92.007 Garden or yard of unspecified non-institutional (private) residence as the 12/07/2015 ODILIA LA[place] DO Ot F41.9 ANXIETY DISORDER, UNSPECIFIED 12/07/2015 ODILIA LA[place] DO Ot S01.112A LACERATION W/O FB OF LEFT EYELID AND PER 12/07/2015 ODILIA [place] DO Ot S02.8XXA FRACTURES OF OTH SKULL AND FACIAL BONES, 12/07/2015 OD[place]IA [place] DO Ot S06.0X0A CONCUSSION WITHOUT LOSS OF CONSCIOUSNESS 12/07/2015 ODILIA [place] DO Ot W17.89XA OTHER FALL FROM ONE LEVEL TO ANOTHER, IN 12/07/2015 ODILIA LAKE DO Ot Y92.[address] IN SINGLE-FAMILY (PRIVATE) [facility] 12/07/2015 [place] DO Ot Y99.8 OTHER EXTERNAL CAUSE STATUS 01/02/2016 JUANJO KEATING, DARCI P Ot 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 01/02/2016 JUANJO KEATING, DARCI P Ot R51 HEADACHE 01/07/2016 JUANJO KEATING, DARCI P Ot 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 01/07/2016 JUANJO KEATING, DARCI P Ot R51 HEADACHE 01/07/2016 JUANJO KEATING, DARCI P Ot 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 01/07/2016 JUANJO KEATING, DARCI P Ot R51 HEADACHE 01/22/2016 JUANJO KEATING, DARCI P Ot 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 01/22/2016 JUANJO KEATING, DARCI P Ot R51 HEADACHE 01/30/2016 JUANJO KEATING, DARCI P Ot 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 01/30/2016 JUANJO KEATING, DARCI P Ot R51 HEADACHE 02/07/2016 JUANJO KEATING, DARCI P Ot 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 02/07/2016 JUANJO KEATING, DARCI P Ot R51 HEADACHE 02/24/2016 BOYD KEATING, SPIKE Bernal Ot F41.9 ANXIETY DISORDER, UNSPECIFIED 02/24/2016 BOYD KEATING, SPIKE T Ot I10 ESSENTIAL (PRIMARY) HYPERTENSION 02/24/2016 BOYD KEATING, SPIKE T Ot R51 HEADACHE 02/25/2016 BOYD KEATING, SPIKE Bernal Ot F41.9 ANXIETY DISORDER, UNSPECIFIED 02/25/2016 BOYD KEATING, SPIKE T Ot I10 ESSENTIAL (PRIMARY) HYPERTENSION 02/25/2016 BOYD KEATING, SPIKE T Ot R51 HEADACHE 03/08/2016 BOYD KEATING, SPIKE Bernal Ot F41.9 ANXIETY DISORDER, UNSPECIFIED 03/08/2016 BOYD KEATING, SPIKE T Ot I10 ESSENTIAL (PRIMARY) HYPERTENSION 03/08/2016 BOYD KEATING, SPIKE Bernal Ot R51 HEADACHE 06/18/2016 WHITE, BRAD W 272.4 06/18/2016 WHITE, BRAD W 296.34 06/18/2016 WHITE, BRAD W 401.0 06/18/2016 WHITE, BRAD W 493.90 ASTHMA, UNSPECIFIED 06/18/2016 WHITE, BRAD Contreras 530.81 ESOPHAGEAL REFLUX 06/18/2016 WHITE, BRAD W 564.1 06/18/2016 WHITE, BRAD W 596.51 06/18/2016 WHITE, BRAD Contreras 716.20 06/18/2016 WHITE, BRAD Contreras 722.51 06/18/2016 WHITEBRAD E78.5 HYPERLIPIDEMIA, UNSPECIFIED 06/18/2016 WHITEBRAD F01.51 06/18/2016 WHITEBRAD F33.3 06/18/2016 WHITEBRAD W I10 ESSENTIAL (PRIMARY) HYPERTENSION 06/18/2016 WHITEBRAD J45.909 UNSPECIFIED ASTHMA, UNCOMPLICATED 06/18/2016 WHITEBRAD K21.9 GASTRO-ESOPHAGEAL REFLUX DISEASE WITHOUT ESOPHAGITIS 06/18/2016 WHITEBRAD K58.9 IRRITABLE BOWEL SYNDROME WITHOUT DIARRHEA 06/18/2016 BRAD CASTILLO M13.80 OTHER SPECIFIED ARTHRITIS, UNSPECIFIED SITE 06/18/2016 WHITEBRAD M51.35 06/18/2016 WHITEBRAD N32.81 OVERACTIVE BLADDER 06/18/2016 BRAD CASTILLO 300.00 ANXIETY STATE, UNSPECIFIED 06/18/2016 BRAD CASTILLO 599.0 URINARY TRACT INFECTION, SITE NOT SPECIFIED 06/18/2016 WHITEBRAD F41.9 ANXIETY DISORDER, UNSPECIFIED 06/18/2016 BRAD CASTILLO N39.0 URINARY TRACT INFECTION, SITE NOT SPECIFIED 06/27/2016 BRAD CASTILLO 296.34 07/09/2016 BRAD CASTILLO A 300.00 ANXIETY STATE, UNSPECIFIED 07/09/2016 BRAD CASTILLO F41.9 ANXIETY DISORDER, UNSPECIFIED 10/03/2016 JUANJO KEATING, DARCI P Ot 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 10/03/2016 JUANJO KEATING, DARCI P Ot R51 HEADACHE 10/03/2016 LIZZY CORDOBA MD Ot K58.9 IRRITABLE BOWEL [...] KEATING, DARCI P Ot R51 HEADACHE 10/03/2016 LIZZY CORDOBA MD Ot K58.9 IRRITABLE BOWEL [...] ENCNTR SCREEN MAMMOGRAM FOR MALIGNANT NE 11/04/2016 JUANJO KEATING, DARCI Hartmann Ot 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 11/04/2016 JUANJO KEATING, DARCI P Ot R51 HEADACHE 11/04/2016 LIZZY CORDOBA MD [...] ENCNTR SCREEN MAMMOGRAM FOR MALIGNANT NE 04/15/2017 BRYN KEATING, ESTEFANIA Dodd Ot M48.50XA COLLAPSED VERTEBRA, NEC, SITE UNSP, INIT 04/28/2017 BRYN KEATING, ESTEFANIA Dodd Ot M48.50XA COLLAPSED VERTEBRA, NEC, SITE UNSP, INIT 05/20/2017 ESTEFANIA CLEMENTE MD Ot M48.50XA COLLAPSED VERTEBRA, NEC, SITE UNSP, INIT 05/20/2017 BERYL KEATING, LIZZY Aguilar Ot K58.9 IRRITABLE BOWEL SYNDROME WITHOUT DIARRHE 05/20/2017 BERYL KEATING, LIZZY Aguilar Ot R10.12 LEFT UPPER QUADRANT PAIN 05/20/2017 LIZZY CORDOBA MD Ot R10.32 LEFT LOWER QUADRANT PAIN 05/20/2017 BERYL KEATING, LIZZY Aguilar Ot Z01.818 ENCOUNTER FOR OTHER PREPROCEDURAL EXAMIN 05/20/2017 BERYL KEATING, LIZZY Aguilar Ot Z86.010 PERSONAL HISTORY OF COLONIC POLYPS 05/20/2017 LOY HUGHES DO Ot Z12.31 ENCNTR SCREEN MAMMOGRAM FOR MALIGNANT NE 05/20/2017 BRYN KEATING, ESTEFANIA Dodd Ot M48.50XA COLLAPSED VERTEBRA, NEC, SITE UNSP, INIT 06/11/2017 ESTEFANIA CLEMENTE MD, Ot M48.50XA COLLAPSED VERTEBRA, NEC, SITE UNSP, INIT 06/11/2017 ESTEFANIA CLEMENTE MD Ot M85.88 OTH DISRD OF BONE DENSITY AND STRUCTURE, 06/19/2017 ESTEFANIA CLEMENTE MD Ot M48.50XA COLLAPSED VERTEBRA, NEC, SITE UNSP, INIT 06/19/2017 ESTEFANIA CLEMENTE MD Ot M85.88 OTH DISRD OF BONE DENSITY AND STRUCTURE, 06/26/2017 Eboh, Jazmyn A 300.00 ANXIETY STATE, UNSPECIFIED 06/26/2017 EbJazmyn rossi A F41.9 ANXIETY DISORDER, UNSPECIFIED 07/13/2017 JUANJO KEATING, DARCI Hartmann Ot 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 07/13/2017 JUANJO KEATING, DARCI Hartmann Ot R51 HEADACHE 07/13/2017 LIZZY CORDOBA MD Ot K58.9 IRRITABLE BOWEL SYNDROME WITHOUT DIARRHE 07/13/2017 LIZZY CORDOBA MD Ot R10.12 LEFT UPPER QUADRANT PAIN 07/13/2017 LIZZY CORDOBA MD Ot R10.32 LEFT LOWER QUADRANT PAIN 07/13/2017 BERYL KEATING, LIZZY Aguilar Ot Z01.818 ENCOUNTER FOR OTHER PREPROCEDURAL EXAMIN 07/13/2017 LIZZY CORDOBA MD Ot Z86.010 PERSONAL HISTORY OF COLONIC POLYPS 07/13/2017 LOY HUGHES DO Ot Z12.31 ENCNTR SCREEN MAMMOGRAM FOR MALIGNANT NE 07/13/2017 ESTEFANIA CLEMENTE MD Ot M48.50XA COLLAPSED VERTEBRA, NEC, SITE UNSP, INIT 07/13/2017 ESTEFANIA CLEMENTE MD Ot M85.88 OTH DISRD OF BONE DENSITY AND STRUCTURE, 07/15/2017 Kody CARDOZO MD Ot D72.829 ELEVATED WHITE BLOOD CELL COUNT, UNSPECI 07/15/2017 Kody CARDOZO MD Ot E78.00 PURE HYPERCHOLESTEROLEMIA, UNSPECIFIED 07/15/2017 Kody CARDOZO MD Ot E86.0 DEHYDRATION 07/15/2017 Kody CARDOZO MD Ot E87.8 OTH DISORDERS OF ELECTROLYTE AND FLUID B 07/15/2017 Kody CARDOZO MD Ot F03.90 UNSPECIFIED DEMENTIA WITHOUT BEHAVIORAL 07/15/2017 Kody CARDOZO MD Ot I10 ESSENTIAL (PRIMARY) HYPERTENSION 07/15/2017 Kody CARDOZO MD Ot J44.9 CHRONIC OBSTRUCTIVE PULMONARY DISEASE, U 07/15/2017 Kody CARDOZO MD Ot K58.9 IRRITABLE BOWEL SYNDROME WITHOUT DIARRHE 07/15/2017 Kody CARDOZO MD Ot K59.09 OTHER CONSTIPATION 07/15/2017 Kody CARDOZO MD Ot M19.90 UNSPECIFIED OSTEOARTHRITIS, UNSPECIFIED 07/15/2017 Kody CARDOZO MD Ot M54.9 DORSALGIA, UNSPECIFIED 07/15/2017 Kody CARDOZO MD Ot N28.9 DISORDER OF KIDNEY AND URETER, UNSPECIFI 07/15/2017 Kody CARDOZO MD Ot R00.1 BRADYCARDIA, UNSPECIFIED 07/15/2017 Kody CARDOZO MD Ot R32 UNSPECIFIED URINARY INCONTINENCE 07/15/2017 Kody CARDOZO MD Ot Z86.010 PERSONAL HISTORY OF COLONIC POLYPS 07/15/2017 Kody CARDOZO MD Ot Z87.11 PERSONAL HISTORY OF PEPTIC ULCER DISEASE 07/15/2017 Kody CARDOZO MD Ot 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 07/16/2017 Kody CARDOZO MD Ot D72.829 ELEVATED WHITE BLOOD CELL COUNT, UNSPECI 07/16/2017 Kody CARDOZO MD Ot E78.00 PURE HYPERCHOLESTEROLEMIA, UNSPECIFIED 07/16/2017 Kody CARDOZO MD Ot E86.0 DEHYDRATION 07/16/2017 Kody CARDOZO MD Ot E87.2 ACIDOSIS 07/16/2017 Kody CARDOZO MD Ot E87.8 OTH DISORDERS OF ELECTROLYTE AND FLUID B 07/16/2017 Kody CARDOZO MD Ot F03.90 UNSPECIFIED DEMENTIA WITHOUT BEHAVIORAL 07/16/2017 Kody CARDOZO MD Ot F41.9 ANXIETY DISORDER, UNSPECIFIED 07/16/2017 Kody CARDOZO MD Ot G31.84 MILD COGNITIVE IMPAIRMENT, SO STATED 07/16/2017 Kody CARDOZO MD Ot I13.0 HYP HRT CHR KDNY DIS W HRT FAIL AND ST 07/16/2017 Kody CARDOZO MD Ot I50.21 ACUTE SYSTOLIC (CONGESTIVE) HEART FAILUR 07/16/2017 Kody CARDOZO MD Ot I50.31 ACUTE DIASTOLIC (CONGESTIVE) HEART FAILU 07/16/2017 Kody CARDOZO MD Ot J44.9 CHRONIC OBSTRUCTIVE PULMONARY DISEASE, U 07/16/2017 Kody CARDOZO MD Ot K58.9 IRRITABLE BOWEL SYNDROME WITHOUT DIARRHE 07/16/2017 Kody CARDOZO MD Ot K59.09 OTHER CONSTIPATION 07/16/2017 Kody CARDOZO MD Ot M19.90 UNSPECIFIED OSTEOARTHRITIS, UNSPECIFIED 07/16/2017 Kody CARDOZO MD Ot M54.9 DORSALGIA, UNSPECIFIED 07/16/2017 Kody CARDOZO MD Ot N18.3 CHRONIC KIDNEY DISEASE, STAGE 3 (MODERAT 07/16/2017 Kody CARDOZO MD Ot R00.1 BRADYCARDIA, UNSPECIFIED 07/16/2017 Kody CARDOZO MD Ot R32 UNSPECIFIED URINARY INCONTINENCE 07/16/2017 Kody CARDOZO MD Ot Z86.010 PERSONAL HISTORY OF COLONIC POLYPS 07/16/2017 Kody CARDOZO MD Ot Z87.11 PERSONAL HISTORY OF PEPTIC ULCER DISEASE 07/16/2017 Kody CARDOZO MD Ot 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 07/17/2017 Kody CARDOZO MD Ot D72.829 ELEVATED WHITE BLOOD CELL COUNT, UNSPECI 07/17/2017 Kody CARDOZO MD Ot E78.00 PURE HYPERCHOLESTEROLEMIA, UNSPECIFIED 07/17/2017 Kody CARDOZO MD Ot E86.0 DEHYDRATION 07/17/2017 Kody CARDOZO MD Ot E87.2 ACIDOSIS 07/17/2017 Kody CARDOZO MD Ot E87.8 OTH DISORDERS OF ELECTROLYTE AND FLUID B 07/17/2017 Kody CARDOZO MD Ot F03.90 UNSPECIFIED DEMENTIA WITHOUT BEHAVIORAL 07/17/2017 Kody CARDOZO MD Ot F41.9 ANXIETY DISORDER, UNSPECIFIED 07/17/2017 Kody CARDOZO MD Ot G31.84 MILD COGNITIVE IMPAIRMENT, SO STATED 07/17/2017 Kody CARDOZO MD Ot I13.0 HYP HRT CHR KDNY DIS W HRT FAIL AND ST 07/17/2017 Kody CARDOZO MD Ot I50.21 ACUTE SYSTOLIC (CONGESTIVE) HEART FAILUR 07/17/2017 Kody CARDOZO MD Ot I50.31 ACUTE DIASTOLIC (CONGESTIVE) HEART FAILU 07/17/2017 Kody CARDOZO MD Ot J44.9 CHRONIC OBSTRUCTIVE PULMONARY DISEASE, U 07/17/2017 Kody CARDOZO MD Ot K58.9 IRRITABLE BOWEL SYNDROME WITHOUT DIARRHE 07/17/2017 Kody CARDOZO MD Ot K59.09 OTHER CONSTIPATION 07/17/2017 Kody CARDOZO MD Ot M19.90 UNSPECIFIED OSTEOARTHRITIS, UNSPECIFIED 07/17/2017 Kody CARDOZO MD Ot M54.9 DORSALGIA, UNSPECIFIED 07/17/2017 Kody CARDOZO MD Ot N18.3 CHRONIC KIDNEY DISEASE, STAGE 3 (MODERAT 07/17/2017 Kody CARDOZO MD Ot R00.1 BRADYCARDIA, UNSPECIFIED 07/17/2017 Kody CARDOZO MD Ot R32 UNSPECIFIED URINARY INCONTINENCE 07/17/2017 Kody CARDOZO MD, Ot Z86.010 PERSONAL HISTORY OF COLONIC POLYPS 07/17/2017 Kody CARDOZO MD, Ot Z87.11 PERSONAL HISTORY OF PEPTIC ULCER DISEASE 07/17/2017 Kody CARDOZO MD Ot 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 07/17/2017 Kody CARDOZO MD Ot D72.829 ELEVATED WHITE BLOOD CELL COUNT, UNSPECI 07/17/2017 Kody CARDOZO MD Ot E78.00 PURE HYPERCHOLESTEROLEMIA, UNSPECIFIED 07/17/2017 Kody CARDOZO MD Ot E86.0 DEHYDRATION 07/17/2017 Kody CARDOZO MD Ot E87.2 ACIDOSIS 07/17/2017 Kody CARDOZO MD Ot E87.8 OTH DISORDERS OF ELECTROLYTE AND FLUID B 07/17/2017 Kody CARDOZO MD Ot F03.90 UNSPECIFIED DEMENTIA WITHOUT BEHAVIORAL 07/17/2017 Kody CARDOZO MD Ot F41.9 ANXIETY DISORDER, UNSPECIFIED 07/17/2017 Kody CARDOZO MD Ot G31.84 MILD COGNITIVE IMPAIRMENT, SO STATED 07/17/2017 Kody CARDOZO MD Ot I13.0 HYP HRT CHR KDNY DIS W HRT FAIL AND ST 07/17/2017 Kody CARDOZO MD Ot I50.21 ACUTE SYSTOLIC (CONGESTIVE) HEART FAILUR 07/17/2017 Kody CARDOZO MD, Ot I50.31 ACUTE DIASTOLIC (CONGESTIVE) HEART FAILU 07/17/2017 Kody CARDOZO MD Ot J44.9 CHRONIC OBSTRUCTIVE PULMONARY DISEASE, U 07/17/2017 Kody CARDOZO MD Ot K58.9 IRRITABLE BOWEL SYNDROME WITHOUT DIARRHE 07/17/2017 Kody CARDOZO MD Ot K59.09 OTHER CONSTIPATION 07/17/2017 Kody CARDOZO MD Ot M19.90 UNSPECIFIED OSTEOARTHRITIS, UNSPECIFIED 07/17/2017 Kody CARDOZO MD Ot M54.9 DORSALGIA, UNSPECIFIED 07/17/2017 Kody CARDOZO MD Ot N18.3 CHRONIC KIDNEY DISEASE, STAGE 3 (MODERAT 07/17/2017 Kody CARDOZO MD Ot R00.1 BRADYCARDIA, UNSPECIFIED 07/17/2017 Kody CARDOZO MD Ot R32 UNSPECIFIED URINARY INCONTINENCE 07/17/2017 Kody CARDOZO MD Ot T38.0X5A ADVERSE EFFECT OF GLUCOCORT/SYNTH ANALOG 07/17/2017 Kody CARDOZO MD Ot Z86.010 PERSONAL HISTORY OF COLONIC POLYPS 07/17/2017 Kody CARDOZO MD Ot Z87.11 PERSONAL HISTORY OF PEPTIC ULCER DISEASE 07/17/2017 Kody CARDOZO MD Ot 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 07/18/2017 Kody CARDOZO MD Ot D72.829 ELEVATED WHITE BLOOD CELL COUNT, UNSPECI 07/18/2017 Kody CARDOZO MD Ot E78.00 PURE HYPERCHOLESTEROLEMIA, UNSPECIFIED 07/18/2017 Kody CARDOZO MD Ot E86.0 DEHYDRATION 07/18/2017 Kody CARDOZO MD Ot E87.2 ACIDOSIS 07/18/2017 Kody CARDOZO MD Ot E87.8 OTH DISORDERS OF ELECTROLYTE AND FLUID B 07/18/2017 Kody CARDOZO MD Ot F03.90 UNSPECIFIED DEMENTIA WITHOUT BEHAVIORAL 07/18/2017 Kody CARDOZO MD Ot F41.9 ANXIETY DISORDER, UNSPECIFIED 07/18/2017 Kody CARDOZO MD Ot G31.84 MILD COGNITIVE IMPAIRMENT, SO STATED 07/18/2017 Kody CARDOZO MD Ot I13.0 HYP HRT CHR KDNY DIS W HRT FAIL AND ST 07/18/2017 Kody CARDOZO MD Ot I50.21 ACUTE SYSTOLIC (CONGESTIVE) HEART FAILUR 07/18/2017 Kody CARDOZO MD Ot I50.31 ACUTE DIASTOLIC (CONGESTIVE) HEART FAILU 07/18/2017 Kody CARDOZO MD Ot J44.9 CHRONIC OBSTRUCTIVE PULMONARY DISEASE, U 07/18/2017 Kody CARDOZO MD Ot K58.9 IRRITABLE BOWEL SYNDROME WITHOUT DIARRHE 07/18/2017 Kody CARDOZO MD, Ot K59.09 OTHER CONSTIPATION 07/18/2017 Kody CARDOZO MD Ot M19.90 UNSPECIFIED OSTEOARTHRITIS, UNSPECIFIED 07/18/2017 Kody CARDOZO MD Ot M54.9 DORSALGIA, UNSPECIFIED 07/18/2017 Kody CARDOZO MD Ot N18.3 CHRONIC KIDNEY DISEASE, STAGE 3 (MODERAT 07/18/2017 Kody CARDOZO MD Ot R00.1 BRADYCARDIA, UNSPECIFIED 07/18/2017 Kody CARDOZO MD Ot R32 UNSPECIFIED URINARY INCONTINENCE 07/18/2017 Kody CARDOZO MD Ot T38.0X5A ADVERSE EFFECT OF GLUCOCORT/SYNTH ANALOG 07/18/2017 Kody CARDOZO MD Ot Z86.010 PERSONAL HISTORY OF COLONIC POLYPS 07/18/2017 Kody CARDOZO MD Ot Z87.11 PERSONAL HISTORY OF PEPTIC ULCER DISEASE 07/18/2017 Kody CARDOZO MD Ot 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 07/18/2017 Kody CARDOZO MD Ot D72.829 ELEVATED WHITE BLOOD CELL COUNT, UNSPECI 07/18/2017 Kody CARDOZO MD Ot E78.00 PURE HYPERCHOLESTEROLEMIA, UNSPECIFIED 07/18/2017 Kody CARDOZO MD Ot E86.0 DEHYDRATION 07/18/2017 Kody CARDOZO MD Ot E87.2 ACIDOSIS 07/18/2017 Kody CARDOZO MD Ot E87.8 OTH DISORDERS OF ELECTROLYTE AND FLUID B 07/18/2017 Kody CARDOZO MD Ot F03.90 UNSPECIFIED DEMENTIA WITHOUT BEHAVIORAL 07/18/2017 Kody CARDOZO MD Ot F41.9 ANXIETY DISORDER, UNSPECIFIED 07/18/2017 Kody CARDOZO MD Ot G31.84 MILD COGNITIVE IMPAIRMENT, SO STATED 07/18/2017 Kody CARDOZO MD Ot I13.0 HYP HRT CHR KDNY DIS W HRT FAIL AND ST 07/18/2017 Kody CARDOZO MD Ot I49.5 SICK SINUS SYNDROME 07/18/2017 Kody CARDOZO MD Ot I50.21 ACUTE SYSTOLIC (CONGESTIVE) HEART FAILUR 07/18/2017 Kody CARDOZO MD Ot I50.31 ACUTE DIASTOLIC (CONGESTIVE) HEART FAILU 07/18/2017 Kody CARDOZO MD Ot J44.9 CHRONIC OBSTRUCTIVE PULMONARY DISEASE, U 07/18/2017 Kody CARDOZO MD Ot K58.9 IRRITABLE BOWEL SYNDROME WITHOUT DIARRHE 07/18/2017 Kody CARDOZO MD Ot K59.09 OTHER CONSTIPATION 07/18/2017 Kody CARDOZO MD Ot M19.90 UNSPECIFIED OSTEOARTHRITIS, UNSPECIFIED 07/18/2017 Kody CARDOZO MD Ot M54.9 DORSALGIA, UNSPECIFIED 07/18/2017 Kody CARDOZO MD Ot N18.3 CHRONIC KIDNEY DISEASE, STAGE 3 (MODERAT 07/18/2017 Kody CARDOZO MD Ot R00.1 BRADYCARDIA, UNSPECIFIED 07/18/2017 Kody CARDOZO MD Ot R32 UNSPECIFIED URINARY INCONTINENCE 07/18/2017 Kody CARDOZO MD Ot T38.0X5A ADVERSE EFFECT OF GLUCOCORT/SYNTH ANALOG 07/18/2017 Kody CARDOZO MD Ot Z86.010 PERSONAL HISTORY OF COLONIC POLYPS 07/18/2017 Kody CARDOZO MD Ot Z87.11 PERSONAL HISTORY OF PEPTIC ULCER DISEASE 07/18/2017 Kody CARDOZO MD 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 Procedures Code Description Performed By Performed On [id number] INSERTION OF PACEMAKER LEAD INTO RIGHT A 07/17/2017 [id number] INSERTION OF PACEMAKER LEAD INTO R VENTR 07/17/2017 [id number] INSERT PACE. DUAL MAMADOU IN CHEST SUBCU/FA 07/17/2017 Results Test Result Range Complete blood count [...] urinalysis with reflex to culture NO NRG TIBC - 06/18/16 11:41 Iron 79 ug/dL 70-200 Iron Saturation 23.94 % 15.00-55.00 TIBC 330 ug/dL 273-456 UIBC 264 ug/dL 200-370 MRSA Screen - 06/18/16 12:37 FINAL CULTURE RESULTS MRSA Negative Nasal Culture MEDIA PLATED Setup at 12:41 on 06/18/2016 Urinalysis - 06/18/16 13:05 Icotest N/A Negative Urine Volume Urine Volume Sufficient (10mL) Urine Yeast No Yeast present Urine-Appearance Clear Clear Urine-Bacteria Trace Urine-Bilirubin Negative Negative Urine-Blood Negative Negative Urine-Color Yellow Colorless-Lt. Yellow Urine-Epithelial Cells 5-10/HPF Urine-Glucose Negative Negative Urine-Ketones Negative Negative Urine-Leukocytes Trace Negative Urine-Nitrite Negative Negative Urine-Other Urine Saved if Culture Needed (48hrs from time of collection) Urine-pH 5.5 5-8.5 Urine-Protein Negative Negative Urine-RBC 0-2/HPF Urine-Specific [place] <=1.005 1.000-1.030 Urine-WBC 2-5/HPF Urobilinogen 0.2 0.2-1.0 Lipid Panel - 06/19/16 06:06 C/HDL 2.8 3.7-6.7 Cholesterol 171 mg/dL 100-240 HDL 61 mg/dL 30-85 LDL-Calculated 52 mg/dL 0-100 Trig 292 mg/dL 35-160 VLDL 58 mg/dL 0-42 Comp. Metabolic Panel (14) - 01/16/17 11:45 Glucose, Serum 81 mg/dL 65-99 BUN 18 mg/dL 8-27 Creatinine, Serum 0.94 mg/dL 0.57-1.00 eGFR If NonAfricn Am 60 mL/min/1.73 >59 eGFR If Africn Am 69 mL/min/1.73 >59 BUN/Creatinine Ratio 19 12-28 Sodium, Serum 132 mmol/L 134-144 Potassium, Serum 4.8 mmol/L 3.5-5.2 Chloride, Serum 93 mmol/L 96-106 Carbon Dioxide, Total 24 mmol/L 18-29 Calcium, Serum 10.1 mg/dL 8.7-10.3 Protein, Total, Serum 7.0 g/dL 6.0-8.5 Albumin, Serum 4.4 g/dL 3.5-4.8 Globulin, Total 2.6 g/dL 1.5-4.5 A/G Ratio 1.7 1.2-2.2 Bilirubin, Total 0.4 mg/dL 0.0-1.2 Alkaline Phosphatase, S 73 IU/L 39-117 AST (SGOT) 19 IU/L 0-40 ALT (SGPT) 11 IU/L 0-32 Complete blood count (CBC) with automated white blood cell (WBC) differential - 07/13/17 11:10 Blood leukocytes automated count (number/volume) 20.1 10*3/uL 4.3-11.0 Blood erythrocytes automated count (number/volume) 4.42 10*6/uL 4.35-5.85 Venous blood hemoglobin measurement (mass/volume) 13.7 g/dL 11.5-16.0 Blood hematocrit (volume fraction) 40 % 35-52 Automated erythrocyte mean corpuscular volume 89 [foz_us] 80-99 Automated erythrocyte mean corpuscular hemoglobin (mass per erythrocyte) 31 pg 25-34 Automated erythrocyte mean corpuscular hemoglobin concentration measurement ( mass/volume) 35 g/dL 32-36 Automated erythrocyte distribution width ratio 13.9 % 10.0-14.5 Automated blood platelet count (count/volume) 478 10*3/uL 130-400 Automated blood platelet mean volume measurement 9.3 [foz_us] 7.4-10.4 Automated blood neutrophils/100 leukocytes 75 % 42-75 Automated blood lymphocytes/100 leukocytes 18 % 12-44 Blood monocytes/100 leukocytes 6 % 0-12 Automated blood eosinophils/100 leukocytes 1 % 0-10 Automated blood basophils/100 leukocytes 0 % 0-10 Blood neutrophils automated count (number/volume) 15.1 10*3 1.8-7.8 Blood lymphocytes automated count (number/volume) 3.7 10*3 1.0-4.0 Blood monocytes automated count (number/volume) 1.1 10*3 0.0-1.0 Automated eosinophil count 0.1 10*3/uL 0.0-0.3 Automated blood basophil count (count/volume) 0.0 10*3/uL 0.0-0.1 PT panel in platelet poor plasma by coagulation assay - 07/13/17 11:10 Prothrombin time (PT) in platelet poor plasma by coagulation assay 13.2 s 12.2-14.7 INR in platelet poor plasma or blood by coagulation assay 1.0 0.8-1.4 Activated partial thromboplastin time (aPTT) in platelet poor plasma bycoagulation assay - 07/13/17 11:10 Activated partial thromboplastin time (aPTT) in platelet poor plasma bycoagulation assay 20 s 24-35 Comprehensive metabolic panel - 07/13/17 11:10 Serum or plasma sodium measurement (moles/volume) 126 mmol/L 135-145 Serum or plasma potassium measurement (moles/volume) 5.2 mmol/L 3.6-5.0 Serum or plasma chloride measurement (moles/volume) 92 mmol/L 98-107 Carbon dioxide 20 mmol/L 21-32 Serum or plasma anion gap determination (moles/volume) 14 mmol/L 5-14 Serum or plasma urea nitrogen measurement (mass/volume) 53 mg/dL 7-18 Serum or plasma creatinine measurement (mass/volume) 1.37 mg/dL 0.60-1.30 Serum or plasma urea nitrogen/creatinine mass ratio 39 NRG Serum or plasma creatinine measurement with calculation of estimated glomerular filtration rate 38 NRG Serum or plasma glucose measurement (mass/volume) 118 mg/dL 70-105 Serum or plasma calcium measurement (mass/volume) 10.3 mg/dL 8.5-10.1 Serum or plasma total bilirubin measurement (mass/volume) 0.8 mg/dL 0.1-1.0 Serum or plasma alkaline phosphatase measurement (enzymatic activity/volume) 49 U/L 40-136 Serum or plasma aspartate aminotransferase measurement (enzymatic activity/ volume) 26 U/L 5-34 Serum or plasma alanine aminotransferase measurement (enzymatic activity/volume ) 19 U/L 0-55 Serum or plasma protein measurement (mass/volume) 7.5 g/dL 6.4-8.2 Serum or plasma albumin measurement (mass/volume) 4.2 g/dL 3.2-4.5 Magnesium - 07/13/17 11:10 Magnesium 2.3 mg/dL 1.8-2.4 Serum or plasma creatine kinase measurement (enzymatic activity/volume) - 07/13 11:10 Serum or plasma creatine kinase measurement (enzymatic activity/volume) 131 U/L 29-168 Serum or plasma lithium measurement (moles/volume) - 07/13/17 11:10 BNP level 497.8 pg/mL <100.0 Blood manual differential performed detection - 07/13/17 11:10 Blood monocytes/100 leukocytes 5 % NRG Manual blood segmented neutrophils/100 leukocytes 75 % NRG Manual blood lymphocytes/100 leukocytes 20 % NRG Blood erythrocyte morphology finding identification NORMAL NRG Serum or plasma creatine kinase MB measurement (enzymatic activity/volume) - 11:10 Serum or plasma creatine kinase MB measurement (enzymatic activity/volume) 3.6 ng/mL <6.6 Serum or plasma troponin i.cardiac measurement (mass/volume) - 07/13/17 11:10 Serum or plasma troponin i.cardiac measurement (mass/volume) < ng/ mL <0.30 Serum or plasma thyrotropin measurement by detection limit <=0.05 miu/l (units/ volume) - 07/13/17 11:10 Serum or plasma thyrotropin measurement by detection limit <=0.05 miu/l (units/ volume) 1.08 u[iU]/mL 0.35-4.94 Blood lactic acid measurement (moles/volume) - 07/13/17 12:05 Blood lactic acid measurement (moles/volume) 2.16 mmol/L 0.50-2.00 Influenza virus A and B antigen detection - 07/13/17 12:05 FLU RESULT NEGATIVE FOR INFLUENZA A AND B ANTIGENS BY IA NRG Bacterial blood culture - 07/13/17 12:05 Bacterial blood culture NG NRG Complete urinalysis with reflex to culture - 07/13/17 12:17 Urine color determination YELLOW NRG Urine clarity determination CLEAR NRG Urine pH measurement by test strip 5 5-9 Specific gravity of urine by test strip 1.010 1.016- 1.022 Urine protein assay by test strip, semi-quantitative NEGATIVE NEGATIVE Urine glucose detection by automated test [...] urinalysis with reflex to culture NO NRG Bacterial blood culture - 07/13/17 12:41 Bacterial blood culture NG NRG Serum or plasma lactate measurement (moles/volume) - 07/13/17 14:48 Serum or plasma lactate measurement (moles/volume) 2.37 mmol/L 0.50-2.00 Methicillin resistant Staphylococcus aureus (MRSA) screening culture - 17:25 Methicillin resistant Staphylococcus aureus (MRSA) screening culture NEG NRG Complete blood count (CBC) with automated white blood cell (WBC) differential - 07/13/17 20:05 Blood leukocytes automated count (number/volume) 20.4 10*3/uL 4.3-11.0 Blood erythrocytes automated count (number/volume) 3.94 10*6/uL 4.35-5.85 Venous blood hemoglobin measurement (mass/volume) 12.2 g/dL 11.5-16.0 Blood hematocrit (volume fraction) 35 % 35-52 Automated erythrocyte mean corpuscular volume 90 [foz_us] 80-99 Automated erythrocyte mean corpuscular hemoglobin (mass per erythrocyte) 31 pg 25-34 Automated erythrocyte mean corpuscular hemoglobin concentration measurement ( mass/volume) 35 g/dL 32-36 Automated erythrocyte distribution width ratio 13.7 % 10.0-14.5 Automated blood platelet count (count/volume) 442 10*3/uL 130-400 Automated blood platelet mean volume measurement 9.4 [foz_us] 7.4-10.4 Automated blood neutrophils/100 leukocytes 85 % 42-75 Automated blood lymphocytes/100 leukocytes 10 % 12-44 Blood monocytes/100 leukocytes 5 % 0-12 Automated blood eosinophils/100 leukocytes 0 % 0-10 Automated blood basophils/100 leukocytes 0 % 0-10 Blood neutrophils automated count (number/volume) 17.3 10*3 1.8-7.8 Blood lymphocytes automated count (number/volume) 2.0 10*3 1.0-4.0 Blood monocytes automated count (number/volume) 1.0 10*3 0.0-1.0 Automated eosinophil count 0.0 10*3/uL 0.0-0.3 Automated blood basophil count (count/volume) 0.0 10*3/uL 0.0-0.1 Whole blood basic metabolic panel - 07/13/17 20:05 Serum or plasma sodium measurement (moles/volume) 126 mmol/L 135-145 Serum or plasma potassium measurement (moles/volume) 5.0 mmol/L 3.6-5.0 Serum or plasma chloride measurement (moles/volume) 97 mmol/L 98-107 Carbon dioxide 18 mmol/L 21-32 Serum or plasma anion gap determination (moles/volume) 11 mmol/L 5-14 Serum or plasma urea nitrogen measurement (mass/volume) 46 mg/dL 7-18 Serum or plasma creatinine measurement (mass/volume) 1.21 mg/dL 0.60-1.30 Serum or plasma urea nitrogen/creatinine mass ratio 38 NRG Serum or plasma creatinine measurement with calculation of estimated glomerular filtration rate 43 NRG Serum or plasma glucose measurement (mass/volume) 157 mg/dL 70-105 Serum or plasma calcium measurement (mass/volume) 9.1 mg/dL 8.5-10.1 Complete blood count (CBC) with automated white blood cell (WBC) differential - 07/14/17 05:05 Blood leukocytes automated count (number/volume) 20.4 10*3/uL 4.3-11.0 Blood erythrocytes automated count (number/volume) 3.81 10*6/uL 4.35-5.85 Venous blood hemoglobin measurement (mass/volume) 11.8 g/dL 11.5-16.0 Blood hematocrit (volume fraction) 34 % 35-52 Automated erythrocyte mean corpuscular volume 90 [foz_us] 80-99 Automated erythrocyte mean corpuscular hemoglobin (mass per erythrocyte) 31 pg 25-34 Automated erythrocyte mean corpuscular hemoglobin concentration measurement ( mass/volume) 35 g/dL 32-36 Automated erythrocyte distribution width ratio 13.5 % 10.0-14.5 Automated blood platelet count (count/volume) 379 10*3/uL 130-400 Automated blood platelet mean volume measurement 9.3 [foz_us] 7.4-10.4 Automated blood neutrophils/100 leukocytes 68 % 42-75 Automated blood lymphocytes/100 leukocytes 25 % 12-44 Blood monocytes/100 leukocytes 6 % 0-12 Automated blood eosinophils/100 leukocytes 1 % 0-10 Automated blood basophils/100 leukocytes 0 % 0-10 Blood neutrophils automated count (number/volume) 13.9 10*3 1.8-7.8 Blood lymphocytes automated count (number/volume) 5.0 10*3 1.0-4.0 Blood monocytes automated count (number/volume) 1.3 10*3 0.0-1.0 Automated eosinophil count 0.2 10*3/uL 0.0-0.3 Automated blood basophil count (count/volume) 0.0 10*3/uL 0.0-0.1 Comprehensive metabolic panel - 07/14/17 05:05 Serum or plasma sodium measurement (moles/volume) 128 mmol/L 135-145 Serum or plasma potassium measurement (moles/volume) 4.8 mmol/L 3.6-5.0 Serum or plasma chloride measurement (moles/volume) 98 mmol/L 98-107 Carbon dioxide 22 mmol/L 21-32 Serum or plasma anion gap determination (moles/volume) 8 mmol/L 5-14 Serum or plasma urea nitrogen measurement (mass/volume) 37 mg/dL 7-18 Serum or plasma creatinine measurement (mass/volume) 1.01 mg/dL 0.60-1.30 Serum or plasma urea nitrogen/creatinine mass ratio 37 NRG Serum or plasma creatinine measurement with calculation of estimated glomerular filtration rate 53 NRG Serum or plasma glucose measurement (mass/volume) 81 mg/dL 70-105 Serum or plasma calcium measurement (mass/volume) 9.3 mg/dL 8.5-10.1 Serum or plasma total bilirubin measurement (mass/volume) 0.8 mg/dL 0.1-1.0 Serum or plasma alkaline phosphatase measurement (enzymatic activity/volume) 42 U/L 40-136 Serum or plasma aspartate aminotransferase measurement (enzymatic activity/ volume) 14 U/L 5-34 Serum or plasma alanine aminotransferase measurement (enzymatic activity/volume ) 14 U/L 0-55 Serum or plasma protein measurement (mass/volume) 6.0 g/dL 6.4-8.2 Serum or plasma albumin measurement (mass/volume) 3.6 g/dL 3.2-4.5 Serum or plasma phosphate measurement (mass/volume) - 07/14/17 05:05 Serum or plasma phosphate measurement (mass/volume) 3.0 mg/dL 2.3-4.7 Magnesium - 07/14/17 05:05 Magnesium 2.1 mg/dL 1.8-2.4 Complete blood count (CBC) with automated white blood cell (WBC) differential - 07/15/17 05:00 Blood leukocytes automated count (number/volume) 15.9 10*3/uL 4.3-11.0 Blood erythrocytes automated count (number/volume) 4.17 10*6/uL 4.35-5.85 Venous blood hemoglobin measurement (mass/volume) 12.7 g/dL 11.5-16.0 Blood hematocrit (volume fraction) 38 % 35-52 Automated erythrocyte mean corpuscular volume 91 [foz_us] 80-99 Automated erythrocyte mean corpuscular hemoglobin (mass per erythrocyte) 31 pg 25-34 Automated erythrocyte mean corpuscular hemoglobin concentration measurement ( mass/volume) 34 g/dL 32-36 Automated erythrocyte distribution width ratio 13.5 % 10.0-14.5 Automated blood platelet count (count/volume) 371 10*3/uL 130-400 Automated blood platelet mean volume measurement 9.5 [foz_us] 7.4-10.4 Automated blood neutrophils/100 leukocytes 49 % 42-75 Automated blood lymphocytes/100 leukocytes 41 % 12-44 Blood monocytes/100 leukocytes 7 % 0-12 Automated blood eosinophils/100 leukocytes 4 % 0-10 Automated blood basophils/100 leukocytes 0 % 0-10 Blood neutrophils automated count (number/volume) 7.7 10*3 1.8-7.8 Blood lymphocytes automated count (number/volume) 6.5 10*3 1.0-4.0 Blood monocytes automated count (number/volume) 1.0 10*3 0.0-1.0 Automated eosinophil count 0.6 10*3/uL 0.0-0.3 Automated blood basophil count (count/volume) 0.1 10*3/uL 0.0-0.1 Whole blood basic metabolic panel - 07/15/17 05:00 Serum or plasma sodium measurement (moles/volume) 132 mmol/L 135-145 Serum or plasma potassium measurement (moles/volume) 4.5 mmol/L 3.6-5.0 Serum or plasma chloride measurement (moles/volume) 99 mmol/L 98-107 Carbon dioxide 21 mmol/L 21-32 Serum or plasma anion gap determination (moles/volume) 12 mmol/L 5-14 Serum or plasma urea nitrogen measurement (mass/volume) 27 mg/dL 7-18 Serum or plasma creatinine measurement (mass/volume) 0.88 mg/dL 0.60-1.30 Serum or plasma urea nitrogen/creatinine mass ratio 31 NRG Serum or plasma creatinine measurement with calculation of estimated glomerular filtration rate > NRG Serum or plasma glucose measurement (mass/volume) 78 mg/dL 70-105 Serum or plasma calcium measurement (mass/volume) 8.9 mg/dL 8.5-10.1 Serum or plasma phosphate measurement (mass/volume) - 07/15/17 05:00 Serum or plasma phosphate measurement (mass/volume) 3.1 mg/dL 2.3-4.7 Magnesium - 07/15/17 05:00 Magnesium 1.7 mg/dL 1.8-2.4 Complete blood count (CBC) with automated white blood cell (WBC) differential - 07/16/17 05:05 Blood leukocytes automated count (number/volume) 14.1 10*3/uL 4.3-11.0 Blood erythrocytes automated count (number/volume) 3.95 10*6/uL 4.35-5.85 Venous blood hemoglobin measurement (mass/volume) 12.2 g/dL 11.5-16.0 Blood hematocrit (volume fraction) 36 % 35-52 Automated erythrocyte mean corpuscular volume 90 [foz_us] 80-99 Automated erythrocyte mean corpuscular hemoglobin (mass per erythrocyte) 31 pg 25-34 Automated erythrocyte mean corpuscular hemoglobin concentration measurement ( mass/volume) 34 g/dL 32-36 Automated erythrocyte distribution width ratio 13.2 % 10.0-14.5 Automated blood platelet count (count/volume) 366 10*3/uL 130-400 Automated blood platelet mean volume measurement 9.3 [foz_us] 7.4-10.4 Automated blood neutrophils/100 leukocytes 54 % 42-75 Automated blood lymphocytes/100 leukocytes 34 % 12-44 Blood monocytes/100 leukocytes 8 % 0-12 Automated blood eosinophils/100 leukocytes 5 % 0-10 Automated blood basophils/100 leukocytes 0 % 0-10 Blood neutrophils automated count (number/volume) 7.6 10*3 1.8-7.8 Blood lymphocytes automated count (number/volume) 4.7 10*3 1.0-4.0 Blood monocytes automated count (number/volume) 1.1 10*3 0.0-1.0 Automated eosinophil count 0.7 10*3/uL 0.0-0.3 Automated blood basophil count (count/volume) 0.1 10*3/uL 0.0-0.1 Whole blood basic metabolic panel - 07/16/17 05:05 Serum or plasma sodium measurement (moles/volume) 129 mmol/L 135-145 Serum or plasma potassium measurement (moles/volume) 4.2 mmol/L 3.6-5.0 Serum or plasma chloride measurement (moles/volume) 100 mmol/L 98-107 Carbon dioxide 21 mmol/L 21-32 Serum or plasma anion gap determination (moles/volume) 8 mmol/L 5-14 Serum or plasma urea nitrogen measurement (mass/volume) 18 mg/dL 7-18 Serum or plasma creatinine measurement (mass/volume) 0.79 mg/dL 0.60-1.30 Serum or plasma urea nitrogen/creatinine mass ratio 23 NRG Serum or plasma creatinine measurement with calculation of estimated glomerular filtration rate > NRG Serum or plasma glucose measurement (mass/volume) 88 mg/dL 70-105 Serum or plasma calcium measurement (mass/volume) 8.7 mg/dL 8.5-10.1 Serum or plasma phosphate measurement (mass/volume) - 07/16/17 05:05 Serum or plasma phosphate measurement (mass/volume) 2.7 mg/dL 2.3-4.7 Magnesium - 07/16/17 05:05 Magnesium 1.9 mg/dL 1.8-2.4 C DIFFICILE AG + TOXIN A/B. - 07/16/17 19:10 RESULTS NEGATIVE FOR ANTIGEN AND TOXIN A/B NRG Complete blood count (CBC) with automated white blood cell (WBC) differential - 07/17/17 05:05 Blood leukocytes automated count (number/volume) 15.9 10*3/uL 4.3-11.0 Blood erythrocytes automated count (number/volume) 3.73 10*6/uL 4.35-5.85 Venous blood hemoglobin measurement (mass/volume) 11.7 g/dL 11.5-16.0 Blood hematocrit (volume fraction) 34 % 35-52 Automated erythrocyte mean corpuscular volume 91 [foz_us] 80-99 Automated erythrocyte mean corpuscular hemoglobin (mass per erythrocyte) 31 pg 25-34 Automated erythrocyte mean corpuscular hemoglobin concentration measurement ( mass/volume) 35 g/dL 32-36 Automated erythrocyte distribution width ratio 13.3 % 10.0-14.5 Automated blood platelet count (count/volume) 339 10*3/uL 130-400 Automated blood platelet mean volume measurement 9.2 [foz_us] 7.4-10.4 Automated blood neutrophils/100 leukocytes 64 % 42-75 Automated blood lymphocytes/100 leukocytes 24 % 12-44 Blood monocytes/100 leukocytes 7 % 0-12 Automated blood eosinophils/100 leukocytes 4 % 0-10 Automated blood basophils/100 leukocytes 0 % 0-10 Blood neutrophils automated count (number/volume) 10.2 10*3 1.8-7.8 Blood lymphocytes automated count (number/volume) 3.8 10*3 1.0-4.0 Blood monocytes automated count (number/volume) 1.2 10*3 0.0-1.0 Automated eosinophil count 0.7 10*3/uL 0.0-0.3 Automated blood basophil count (count/volume) 0.1 10*3/uL 0.0-0.1 Whole blood basic metabolic panel - 07/17/17 05:05 Serum or plasma sodium measurement (moles/volume) 133 mmol/L 135-145 Serum or plasma potassium measurement (moles/volume) 4.2 mmol/L 3.6-5.0 Serum or plasma chloride measurement (moles/volume) 103 mmol/L 98-107 Carbon dioxide 21 mmol/L 21-32 Serum or plasma anion gap determination (moles/volume) 9 mmol/L 5-14 Serum or plasma urea nitrogen measurement (mass/volume) 12 mg/dL 7-18 Serum or plasma creatinine measurement (mass/volume) 0.75 mg/dL 0.60-1.30 Serum or plasma urea nitrogen/creatinine mass ratio 16 NRG Serum or plasma creatinine measurement with calculation of estimated glomerular filtration rate > NRG Serum or plasma glucose measurement (mass/volume) 91 mg/dL 70-105 Serum or plasma calcium measurement (mass/volume) 8.4 mg/dL 8.5-10.1 Serum or plasma phosphate measurement (mass/volume) - 07/17/17 05:05 Serum or plasma phosphate measurement (mass/volume) 2.3 mg/dL 2.3-4.7 Magnesium - 07/17/17 05:05 Magnesium 1.6 mg/dL 1.8-2.4 Complete blood count (CBC) with automated white blood cell (WBC) differential - 07/18/17 03:46 Blood leukocytes automated count (number/volume) 13.2 10*3/uL 4.3-11.0 Blood erythrocytes automated count (number/volume) 3.70 10*6/uL 4.35-5.85 Venous blood hemoglobin measurement (mass/volume) 11.2 g/dL 11.5-16.0 Blood hematocrit (volume fraction) 34 % 35-52 Automated erythrocyte mean corpuscular volume 91 [foz_us] 80-99 Automated erythrocyte mean corpuscular hemoglobin (mass per erythrocyte) 30 pg 25-34 Automated erythrocyte mean corpuscular hemoglobin concentration measurement ( mass/volume) 33 g/dL 32-36 Automated erythrocyte distribution width ratio 13.4 % 10.0-14.5 Automated blood platelet count (count/volume) 324 10*3/uL 130-400 Automated blood platelet mean volume measurement 9.2 [foz_us] 7.4-10.4 Automated blood neutrophils/100 leukocytes 62 % 42-75 Automated blood lymphocytes/100 leukocytes 25 % 12-44 Blood monocytes/100 leukocytes 8 % 0-12 Automated blood eosinophils/100 leukocytes 5 % 0-10 Automated blood basophils/100 leukocytes 1 % 0-10 Blood neutrophils automated count (number/volume) 8.1 10*3 1.8-7.8 Blood lymphocytes automated count (number/volume) 3.3 10*3 1.0-4.0 Blood monocytes automated count (number/volume) 1.1 10*3 0.0-1.0 Automated eosinophil count 0.7 10*3/uL 0.0-0.3 Automated blood basophil count (count/volume) 0.1 10*3/uL 0.0-0.1 Comprehensive metabolic panel - 07/18/17 03:46 Serum or plasma sodium measurement (moles/volume) 132 mmol/L 135-145 Serum or plasma potassium measurement (moles/volume) 4.0 mmol/L 3.6-5.0 Serum or plasma chloride measurement (moles/volume) 105 mmol/L 98-107 Carbon dioxide 20 mmol/L 21-32 Serum or plasma anion gap determination (moles/volume) 7 mmol/L 5-14 Serum or plasma urea nitrogen measurement (mass/volume) 12 mg/dL 7-18 Serum or plasma creatinine measurement (mass/volume) 0.74 mg/dL 0.60-1.30 Serum or plasma urea nitrogen/creatinine mass ratio 16 NRG Serum or plasma creatinine measurement with calculation of estimated glomerular filtration rate > NRG Serum or plasma glucose measurement (mass/volume) 92 mg/dL 70-105 Serum or plasma calcium measurement (mass/volume) 8.5 mg/dL 8.5-10.1 Serum or plasma total bilirubin measurement (mass/volume) 0.5 mg/dL 0.1-1.0 Serum or plasma alkaline phosphatase measurement (enzymatic activity/volume) 42 U/L 40-136 Serum or plasma aspartate aminotransferase measurement (enzymatic activity/ volume) 13 U/L 5-34 Serum or plasma alanine aminotransferase measurement (enzymatic activity/volume ) 11 U/L 0-55 Serum or plasma protein measurement (mass/volume) 5.2 g/dL 6.4-8.2 Serum or plasma albumin measurement (mass/volume) 3.2 g/dL 3.2-4.5 Serum or plasma phosphate measurement (mass/volume) - 07/18/17 03:46 Serum or plasma phosphate measurement (mass/volume) 2.7 mg/dL 2.3-4.7 Magnesium - 07/18/17 03:46 Magnesium 1.7 mg/dL 1.8-2.4 Encounters ACCT No. Visit Date/Time Discharge Status Pt. Type Provider Facility Loc./Unit Complaint [id number] 09/01/2017 15:31:00 09/01/2017 23:59:59 CLS Preadmit CRICKET ARAUJO APRN [facility] RT SOB,ASTHMA [id number] 07/13/2017 12:30:00 07/18/2017 13:50:00 DIS Inpatient Kody CARDOZO MD [facility] ICU SYMPTOMATIC BRADYCARDIA, DEHYDRATION W/ ELECTROLYT [id number] 05/21/2017 10:29:00 05/21/2017 23:59:59 CLS Outpatient ESTEFANIA CLEMENTE MD [facility] RAD M48.50XA [id number] 11/04/2016 13:28:00 11/04/2016 23:59:59 CLS Outpatient LOY HUGHES DO [facility] RAD Z12.39 [id number] 10/03/2016 06:43:00 10/03/2016 09:51:00 DIS Outpatient LIZZY CORDOBA MD [facility] ENDO IBS, LUQ/LLQ PAIN, HX COLON POLYPS [id number] 10/01/2016 05:35:00 10/01/2016 23:59:59 CLS Outpatient LIZZY CORDOBA MD [facility] PREOP ISB,LUQ PAIN,LLQ PAIN [id number] 02/24/2016 20:27:00 02/24/2016 23:00:00 DIS Emergency BOYD KEATING, SPIKE T [facility] ER HTN [id number] 01/01/2016 07:49:00 01/01/2016 23:59:59 CLS Outpatient JUANJO KEATING, DARCI Hartmann [facility] RAD HEADACHE,DIPLOPIA [id number] 11/23/2015 23:30:00 11/24/2015 01:26:00 DIS Emergency ZACKARY LAKE DOA K [facility] ER LAWSON,VOMITING,ANXIETY [id number] 08/13/2015 12:43:00 08/13/2015 14:13:00 DIS Emergency KIZZY DO VARGAS L [facility] ER IRR HEART RATE [id number] 09/25/2017 13:19:00 ACT Outpatient SUSIE RAMIREZ MD [facility] ONC [id number] 11/23/2015 15:31:00 11/23/2015 19:37:00 DIS Emergency Yeager Curt [facility] ED fall [id number] 11/24/2015 05:16:39 Document Registration [id number] 11/24/2015 05:16:38 Document Registration [id number] 04/08/2017 10:00:00 06/26/2017 14:54:00 DIS Outpatient Jazmyn Duarte [id number] 12/05/2016 09:50:00 12/05/2016 23:59:00 DIS Outpatient BRAD MAX [id number] 07/09/2016 09:00:00 10/08/2016 13:15:00 DIS Outpatient BRAD CASTILLO [id number] 06/18/2016 11:32:00 06/27/2016 11:15:00 DIS Inpatient BRAD CASTILLO [facility] ER [id number] 06/18/2016 13:23:06 Document Registration [id number] 11/22/2015 00:00:00 Document Registration [id number] 01/17/2017 08:36:00 Document Registration [id number] 07/02/2017 14:00:00 07/02/2017 23:59:59 [facility]ATING[facility]
[2017-09-26] MEDS ORDERED: KETO15CR2 (23:14)
[2017-09-26] MEDS ORDERED: TRAM50TA2 (23:14)
[2017-09-26 23:25] LABS: BASOPHILS % (AUTO) 0 % (0-10); EOSINOPHILS # (AUTO) 0.3 10^3/uL (0.0-0.3); EOSINOPHILS % (AUTO) 2 % (0-10); HEMATOCRIT 35 % (35-52); HEMOGLOBIN 12.1 G/DL (11.5-16.0); LYMPHOCYTES # (AUTO) 3.4 X 10^3 (1.0-4.0); LYMPHOCYTES % (AUTO) 23 % (12-44); MEAN CORPUSCULAR HEMOGLOBIN 31 PG (25-34); MEAN CORPUSCULAR HGB CONC 35 G/DL (32-36); MEAN CORPUSCULAR VOLUME 90 FL (80-99); MEAN PLATELET VOLUME 8.7 FL (7.4-10.4); MONOCYTES # (AUTO) 0.9 X 10^3 (0.0-1.0); MONOCYTES % (AUTO) 6 % (0-12); NEUTROPHILS # (AUTO) 10.4 X 10^3 (1.8-7.8); NEUTROPHILS % (AUTO) 69 % (42-75); PLATELET COUNT 399 10^3/uL (130-400); RED BLOOD COUNT 3.92 10^6/uL (4.35-5.85); RED CELL DISTRIBUTION WIDTH 13.7 % (10.0-14.5); WHITE BLOOD COUNT 15.1 10^3/uL (4.3-11.0)
[2017-09-26 23:46] LABS: BILIRUBIN,TOTAL 0.5 MG/DL (0.1-1.0); CALCIUM 9.8 MG/DL (8.5-10.1); CREATININE SERUM 1.02 MG/DL (0.60-1.30); POTASSIUM 4.1 MMOL/L (3.6-5.0); TOTAL PROTEIN 6.7 GM/DL (6.4-8.2)
[2017-09-27 01:05] LABS: BILIRUBIN,URINE NEGATIVE (NEGATIVE); CLARITY,URINE CLEAR; COLOR,URINE YELLOW; GLUCOSE, URINE (UA) NEGATIVE (NEGATIVE); KETONES,URINE NEGATIVE (NEGATIVE); LEUKOCYTE ESTERASE ,URINE 2+ (NEGATIVE); NITRITE,URINE NEGATIVE (NEGATIVE); PH,URINE 5 (5-9); PROTEIN,URINE 2+ (NEGATIVE); UROBILINOGEN,URINE NORMAL (NORMAL)
[2017-09-27] MEDS ORDERED: HYDROcodone/APAP 5 MG/325 MG (LORTAB) TAB PO ONE (01:15)
[2017-09-27 01:16] LABS: BACTERIA,URINE LARGE /HPF
[2017-09-27] MEDS ORDERED: RX-HYDROCODONE/APAP 5/325 MG #4 TAB PK PO PRN (01:30)
[2017-09-27] MEDS ORDERED: TRIM/SULFAMETH 160/800 (SEPTRA DS) TAB PO ONE (01:30)
[2017-09-27] MEDS ORDERED: HYDR-3812 PO (01:34)
[2017-09-27] MEDS ORDERED: SULF1TAB35 PO (01:34)
--- NOTE | 2017-09-27 01:35 | ED Fall/Injury ---
General Chief Complaint: Trauma-Non Activation Stated Complaint: FALL INJ SHOULDER Nursing Triage Note: PT PRESENTS TO ER BY EMS WITH COMPLAINT OF FALL. PT TRIPPED AT HOME AND HURT HER LEFT SHOULDER. EMS GAVE 100MCG OF FENTANYL. Source: patient, EMS Exam Limitations: no limitations Allergies and Home Medications Allergies Coded Allergies: Penicillins (Verified Allergy, Mild, 08/13/15) ketorolac (Verified Allergy, Mild, 08/13/15) morphine (Verified Allergy, Mild, 08/13/15) tetracycline (Verified Allergy, Mild, 08/13/15) paroxetine (Unverified Allergy, Unknown, 02/24/16) Home Medications Acetaminophen 500 Mg Tablet, 1,000 MG PO Q4H PRN for PAIN-MILD, (Reported) TAKES 2 (500 MG) TABLETS / MAY ALSO TAKE FOR ELEVATED TEMPERATURE > 100 Amlodipine Besylate 5 Mg Tablet, 5 MG PO HS, (Reported) Calcium Carbonate/Vitamin D3 1 Each Tablet, 1 TAB PO DAILY, (Reported) Cholestyramine (with Sugar) 378 Gm Powder, 378 GM PO DAILY PRN for LOOSE STOOLS, (Reported) Citalopram Hydrobromide 10 Mg Tablet, 30 MG PO HS, (Reported) TAKES 3 (10 MG) TABLETS Clindamycin HCl 300 Mg Capsule, 300 MG PO TID Prescribed by: Kody CARDOZO on 07/18/17 1244 Estradiol 42.5 Gm Cream.appl, VG HS, (Reported) Estradiol 10 Mcg Tablet, 10 MG VG TU,FR@2100, (Reported) Fluticasone Propionate 16 Gm [place].susp, 2 SPRAYS NSEACH DAILY PRN for CONGESTION, (Reported) Folic Acid 1 Mg Tablet, 1 MG PO DAILY, (Reported) Hydrochlorothiazide 25 Mg Tablet, 25 MG PO DAILY, (Reported) Hydrocodone Bit/Acetaminophen 1 Each Tablet, 1 TAB PO BID PRN for BACK PAIN, ( Reported) Ibandronate Sodium 150 Mg Tablet, 150 MG PO EVERY 3 MONTHS, (Reported) Lisinopril 20 Mg Tablet, 20 MG PO BID, (Reported) Lorazepam 0.5 Mg Tablet, 0.5 MG PO BID, (Reported) Montelukast Sodium 10 Mg Tablet, 10 MG PO HS, (Reported) Multivitamin 1 Each Tablet, 1 TAB PO DAILY, (Reported) Omeprazole 20 Mg Capsule.dr, 20 MG PO DAILY, (Reported) Polyethylene Glycol 3350 17 Gm Powd.pack, 17 GM PO DAILY PRN for CONSTIPATION- 2ND LINE, (Reported) Pravastatin Sodium 40 Mg Tablet, 40 MG PO HS, (Reported) Quetiapine Fumarate 100 Mg Tablet, 100 MG PO HS, (Reported) Rivastigmine Tartrate 1.5 Mg Capsule, 1.5 MG PO BID, (Reported) Triamcinolone Acetonide 80 Gm Oint...g., TP HS, (Reported) APPLIES TO LABIA MAJORA / MAY MIX WITH ESTRACE CREAM Past Adusdfe-Koauqp-Muddsz Hx Patient Social History Alcohol Use: Denies Use Number of Drinks Today: Alcohol Beverage of Choice: Wine Recreational Drug Use: No Smoking Status: Never a Smoker Recent Foreign Travel: No Contact w/Someone Who Travel: No Recent Infectious Disease Expo: No Recent Hopitalizations: No Immunizations Up To Date Tetanus Booster (TDap): Unknown Date of Pneumonia Vaccine: Feb 10, 2017 Date of Influenza Vaccine: Mar 09, 2017 Seasonal Allergies Seasonal Allergies: No Past Medical History Surgeries: Yes Abdominal, Appendectomy, Gallbladder, 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, Joint Replacement, Orthopedic Respiratory: Yes (ALPHA 1 ANTITRIPSIN DEFICIENCY) Asthma, COPD Currently Using CPAP: No Currently Using BIPAP: No Cardiac: Yes (PACEMAKER;"VASOVAGAL NERVE PROBLEMS" ) High Cholesterol, Hypertension Neurological: Yes Dementia 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 Disorders: No Female 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 Disorders: Denies, Endometriosis 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 History: 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, Menopausal Sexually Transmitted Disease: No HIV/AIDS: No Genitourinary: Yes (INCONTINENCE) Gastrointestinal: Yes (BLEEDING ULCER X 3; PERFORATED ULCER 2005; 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) Gastrointestinal Bleed, Chronic Constipation, Polyps, Ulcer, Irritable Bowel Musculoskeletal: Yes (MOSTLY IN HANDS, KNEES, BACK; RIGHT SHOULDER REPLACEMENT) Degenerate Disk Disease, Arthritis, Chronic Back Pain, Fractures Endocrine: No HEENT: Yes Cataract Loss of Vision: Denies Hearing Impairment: Hard of Hearing Cancer: No Psychosocial: Yes Anxiety Integumentary: No Blood Disorders: No Family Medical History Blood clots (sister had a blood clot in the brain which caused her  in 2010) Physical Exam Vital Signs Vital Signs - First Documented 09/26/17 09/26/17 22:45 22:55 Temp 98.9 Pulse 83 Resp 30 B/P (MAP) 122/67 (85) Pulse Ox 93 O2 Delivery Room Air O2 Flow Rate 2.00 Capillary Refill : Less Than 3 Seconds Progress/Results/Core Measures Lab Results Laboratory Tests Test 09/26/17 23:18 09/27/17 00:50 Range/Units White Blood Count 15.1 H 4.3-11.0 10^3/uL Red Blood Count 3.92 L 4.35-5.85 10^6/uL Hemoglobin 12.1 11.5-16.0 G/DL Hematocrit 35 35-52 % Mean Corpuscular Volume 90 80-99 FL Mean Corpuscular Hemoglobin 31 25-34 PG Mean Corpuscular Hemoglobin Concent 35 32-36 G/DL Red Cell Distribution Width 13.7 10.0-14.5 % Platelet Count 399 130-400 10^3/uL Mean Platelet Volume 8.7 7.4-10.4 FL Neutrophils (%) (Auto) 69 42-75 % Lymphocytes (%) (Auto) 23 12-44 % Monocytes (%) (Auto) 6 0-12 % Eosinophils (%) (Auto) 2 0-10 % Basophils (%) (Auto) 0 0-10 % Neutrophils # (Auto) 10.4 H 1.8-7.8 X 10^3 Lymphocytes # (Auto) 3.4 1.0-4.0 X 10^3 Monocytes # (Auto) 0.9 0.0-1.0 X 10^3 Eosinophils # (Auto) 0.3 0.0-0.3 10^3/uL Basophils # (Auto) 0.0 0.0-0.1 10^3/uL Sodium Level 131 L 135-145 MMOL/L Potassium Level 4.1 3.6-5.0 MMOL/L Chloride Level 98 98-107 MMOL/L Carbon Dioxide Level 21 21-32 MMOL/L Anion Gap 12 5-14 MMOL/L Blood Urea Nitrogen 27 H 7-18 MG/DL Creatinine 1.02 0.60-1.30 MG/DL Estimat Glomerular Filtration Rate 53 BUN/Creatinine Ratio 26 Glucose Level 149 H 70-105 MG/DL Calcium Level 9.8 8.5-10.1 MG/DL Total Bilirubin 0.5 0.1-1.0 MG/DL Aspartate Amino Transf (AST/SGOT) 14 5-34 U/L Alanine Aminotransferase (ALT/SGPT) 15 0-55 U/L Alkaline Phosphatase 55 40-136 U/L Total Protein 6.7 6.4-8.2 GM/DL Albumin 4.0 3.2-4.5 GM/DL Urine Color YELLOW Urine Clarity CLEAR Urine pH 5 5-9 Urine Specific [place] 1.020 1.016-1.022 Urine Protein 2+ H NEGATIVE Urine Glucose (UA) NEGATIVE NEGATIVE Urine Ketones NEGATIVE NEGATIVE Urine Nitrite NEGATIVE NEGATIVE Urine Bilirubin NEGATIVE NEGATIVE Urine Urobilinogen NORMAL NORMAL MG/DL Urine Leukocyte Esterase 2+ H NEGATIVE Urine RBC (Auto) 4+ H NEGATIVE Urine RBC 5-10 H /HPF Urine WBC 10-25 H /HPF Urine Squamous Epithelial Cells 2-5 /HPF Urine Crystals NONE /LPF Urine Bacteria LARGE H /HPF Urine Casts NONE /LPF Urine Mucus NEGATIVE /LPF Urine Culture Indicated YES My Orders Orders - SPIKE NIX MD Cbc With Automated Diff (09/26/17 22:50) Comprehensive Metabolic Panel (09/26/17 22:50) Ua Culture If Indicated (09/26/17 22:50) Ct Head/Cervical Spine Wo (09/26/17 22:50) Saline Lock/Iv-Start (09/26/17 22:50) Chest 1 View, Ap/Pa Only (09/26/17 22:50) Shoulder, Left, 3 Views (09/26/17 22:50) Clavicle, Left (09/26/17 22:50) Pelvis (09/26/17 22:50) O2 (09/26/17 22:50) Monitor-Rhythm Ecg Trace Only (09/26/17 22:50) Knee, Left, 3 Views (09/26/17 22:50) Hydrocodone/Apap 5/325 Tablet (Lortab 5 (09/27/17 01:15) Urine Culture (09/27/17 00:50) Sulfamethoxazole/Trimet Ds Tab (Bactrim (09/27/17 01:30) Rx-Hydrocodone/Apap 5-325 Mg (Rx-Vicodin (09/27/17 01:30) Medications Given in ED Current Medications Medications Dose Ordered Sig/Lee Route Start Time Stop Time Status Last Admin Dose Admin Acetaminophen/ Hydrocodone Bitart 1 tab ONCE ONCE PO 09/27/17 01:15 09/27/17 01:16 DC 09/27/17 01:17 1 TAB Vital Signs/I&O 09/26/17 09/26/17 22:45 22:55 Temp 98.9 Pulse 83 Resp 30 B/P (MAP) 122/67 (85) Pulse Ox 93 93 O2 Delivery Room Air Nasal Cannula O2 Flow Rate 2.00 Blood Pressure Mean: 85 Departure Impression Primary Impression: Left humeral fracture Qualified Codes: S42.292A - Other displaced fracture of upper end of left humerus, initial encounter for closed fracture Additional Impressions: Urinary tract infection Qualified Codes: N39.0 - Urinary tract infection, site not specified Fall on same level from tripping as cause of accidental injury Disposition: HOME, SELF-CARE Condition: Improved Departure-Patient Inst. Decision time for Depature: 01:20 Referrals: BRAD HDEZ MD (PCP) Primary Care Physician NABILA SORTO MICHAEL P MD Patient Instructions: Shoulder Fracture Add. Discharge Instructions: You may take hydrocodone up to one tablet every 4 hours as needed for pain. You may also ice your shoulder in 20 minute intervals. You may wish to take a stool softener such as Colace vozy-spe-lfpfdup once or twice daily while on hydrocodone as it may cause constipation. Keep your left arm in the sling is much as possible. Dr. Sorto would like to see you in the clinic next week. Please call him Thursday morning to make an appointment with him or the orthopedic surgeon of your choice. Please also follow up with your primary care provider later this week. You need to have your urine culture reviewed by your doctor to ensure you are on the right antibiotic for the type of infection you have. Drink plenty of clear liquid. All discharge instructions reviewed with patient and/or family. Voiced understanding. Scripts Sulfamethoxazole/Trimethoprim (Bactrim Ds Tablet) 1 Each Tablet 1 EACH PO BID, #14 TAB Prov: SPIKE NIX MD 09/27/17 Hydrocodone/Acetaminophen (Hydrocodone-Acetamin 5-325 mg) 1 Each Tablet 1 EACH PO Q4H PRN for PAIN-MODERATE TO SEVERE, #30 TAB Prov: SPIKE NIX MD 09/27/17 SPIKE NIX MD Sep 27, 2017 01:35
[2017-09-27 02:00] VITALS: BP 121/68
--- NOTE | 2017-09-27 06:32 | Diagnostic Imaging Report ---
PROCEDURE: CT head and CT cervical spine without contrast. TECHNIQUE: Multiple contiguous axial images were obtained through the brain and cervical spine without the use of intravenous contrast. Sagittal and coronal reformations through the cervical spine were then performed. INDICATION: Fall. COMPARISON: MRI brain without and with IV contrast 01/01/2016. CT cervical spine 11/23/2015. FINDINGS: CT head: No intracranial hemorrhage, mass effect, hydrocephalus or extra-axial fluid collection. No CT evidence of acute infarction. Moderate generalized cerebral and cerebellar parenchymal volume loss. Intracranial vascular calcifications. Osseous structures are intact. The visualized paranasal sinuses and mastoids are clear. CT cervical spine: Normal alignment. Vertebral body heights preserved. No fractures. Mild to moderate degenerative endplate changes. No high-grade spinal canal narrowing is evident on this non-contrast exam. Moderate atherosclerotic calcifications including the carotid bifurcations. The visualized paravertebral soft tissues are otherwise unremarkable. IMPRESSION: No acute intracranial or cervical spine CT findings. Chronic findings as above. Dictated by: Dictated on workstation # [id number]
--- NOTE | 2017-09-27 06:38 | Diagnostic Imaging Report ---
EXAM: CHEST 1 VIEW, AP/PA ONLY INDICATION: Fall. Left shoulder and knee pain. COMPARISON: Chest radiograph 07/18/2017. FINDINGS: Normal heart size and pulmonary vascularity. No focal pulmonary opacity, pleural effusion or pneumothorax. Partially visualized comminuted left proximal humerus fracture. Cardiac pacer. Right TSA. IMPRESSION: 1. No acute cardiopulmonary findings. 2. Comminuted proximal left humerus fracture is partially visualized and better demonstrated on the dedicated shoulder radiographs. Dictated by: Dictated on workstation # [id number]
--- NOTE | 2017-09-27 06:39 | Diagnostic Imaging Report ---
EXAM: CLAVICLE, LEFT INDICATION: Fall. Left shoulder pain. COMPARISON: None. FINDINGS: Comminuted moderately displaced fracture through the neck of the proximal left humerus. No other fractures. No radiopaque foreign bodies. Cardiac pacer. IMPRESSION: Comminuted moderately displaced fracture through the neck of the proximal left humerus. Dictated by: Dictated on workstation # [id number]
--- NOTE | 2017-09-27 06:39 | Diagnostic Imaging Report ---
EXAM: SHOULDER, LEFT, 3 VIEWS INDICATION: Fall. Left shoulder pain. COMPARISON: None. FINDINGS: Comminuted moderately displaced fracture through the neck of the proximal left humerus. No other fractures. No radiopaque foreign bodies. Cardiac pacer. IMPRESSION: Comminuted moderately displaced fracture through the neck of the proximal left humerus. Dictated by: Dictated on workstation # [id number]
--- NOTE | 2017-09-27 06:39 | Diagnostic Imaging Report ---
EXAM: KNEE, LEFT, 3 VIEWS INDICATION: Fall. Left knee pain. COMPARISON: None. FINDINGS: No fracture or malalignment. Chondrocalcinosis. Small left knee joint effusion. No radiopaque foreign bodies. IMPRESSION: No acute osseous findings in the left knee. Chondrocalcinosis. Small left knee joint effusion. Dictated by: Dictated on workstation # [id number]
--- NOTE | 2017-09-27 06:46 | Diagnostic Imaging Report ---
EXAM: PELVIS INDICATION: Fall. COMPARISON: None. FINDINGS: Moderate degenerative changes in both hips, the pubic symphysis and sacroiliac joints. No fractures. Soft tissue shadows are remarkable. IMPRESSION: No acute radiographic findings in the pelvis. Dictated by: Dictated on workstation # [id number]
== END 2017-09-27 02:00 | disposition home or self-care (01) ==
LOC: EDUNIT# 22:41 → ER 22:42
DX: S42.202A Unspecified fracture of upper end of left humerus, initial encounter for closed fracture (principal); N39.0 Urinary tract infection, site not specified; J44.9 Chronic obstructive pulmonary disease, unspecified; E78.00 Pure hypercholesterolemia, unspecified; F41.9 Anxiety disorder, unspecified; I10 Essential (primary) hypertension; F03.90 Unspecified dementia, unspecified severity, without behavioral disturbance, psychotic disturbance, mood disturbance, and anxiety; Z87.42 Personal history of other diseases of the female genital tract; Z87.19 Personal history of other diseases of the digestive system; Z95.0 Presence of cardiac pacemaker; Z88.0 Allergy status to penicillin; Z88.6 Allergy status to analgesic agent; Z88.1 Allergy status to other antibiotic agents; Z88.8 Allergy status to other drugs, medicaments and biological substances; Z90.49 Acquired absence of other specified parts of digestive tract; Z90.710 Acquired absence of both cervix and uterus; Z87.81 Personal history of (healed) traumatic fracture; W01.0XXA Fall on same level from slipping, tripping and stumbling without subsequent striking against object, initial encounter; Y92.009 Unspecified place in unspecified non-institutional (private) residence as the place of occurrence of the external cause
CPT/HCPCS: 36415; 70450; 71045; 72125; 72170; 73000; 73030; 73562; 80053; 81000; 85025; 87077; 87088; 87186; 93041

== ENCOUNTER 2017-10-16 13:08 | Outpatient (RCR) | payer MEDICARE, MEDICAID ==
[2017-09-25 15:26] LABS: BASOPHILS % (AUTO) 0 % (0-10); EOSINOPHILS # (AUTO) 0.1 10^3/uL (0.0-0.3); EOSINOPHILS % (AUTO) 1 % (0-10); HEMATOCRIT 39 % (35-52); LYMPHOCYTES # (AUTO) 1.9 X 10^3 (1.0-4.0); LYMPHOCYTES % (AUTO) 10 % (12-44); MEAN CORPUSCULAR HEMOGLOBIN 30 PG (25-34); MEAN CORPUSCULAR HGB CONC 34 G/DL (32-36); MEAN CORPUSCULAR VOLUME 90 FL (80-99); MEAN PLATELET VOLUME 8.8 FL (7.4-10.4); MONOCYTES # (AUTO) 0.7 X 10^3 (0.0-1.0); MONOCYTES % (AUTO) 3 % (0-12); NEUTROPHILS # (AUTO) 16.8 X 10^3 (1.8-7.8); NEUTROPHILS % (AUTO) 86 % (42-75); PLATELET COUNT 405 10^3/uL (130-400); RED CELL DISTRIBUTION WIDTH 13.8 % (10.0-14.5); WHITE BLOOD COUNT 19.6 10^3/uL (4.3-11.0)
[2017-09-25 15:47] LABS: BAND NEUTROPHILS 0 %; BASOPHILS % (MANUAL) 0 %; EOSINOPHILS % (MANUAL) 1 %; LYMPHOCYTES % (MANUAL) 11 %; MONOCYTES % (MANUAL) 1 %; NEUTROPHILS % (MANUAL) 87 %; RBC MORPH NORMAL
[~2017-10-16 13:08] MED LIST changes: +HYDR-3812 PO; +KETO15CR2; +SULF1TAB35 PO; +TRAM50TA2
[2017-10-16 13:39] LABS: BASOPHILS # (AUTO) 0.1 10^3/uL (0.0-0.1); BASOPHILS % (AUTO) 0 % (0-10); EOSINOPHILS # (AUTO) 0.1 10^3/uL (0.0-0.3); EOSINOPHILS % (AUTO) 0 % (0-10); HEMATOCRIT 36 % (35-52); HEMOGLOBIN 12.2 G/DL (11.5-16.0); LYMPHOCYTES # (AUTO) 2.6 X 10^3 (1.0-4.0); LYMPHOCYTES % (AUTO) 14 % (12-44); MEAN CORPUSCULAR HEMOGLOBIN 30 PG (25-34); MEAN CORPUSCULAR HGB CONC 34 G/DL (32-36); MEAN CORPUSCULAR VOLUME 87 FL (80-99); MEAN PLATELET VOLUME 8.4 FL (7.4-10.4); MONOCYTES % (AUTO) 5 % (0-12); NEUTROPHILS # (AUTO) 15.1 X 10^3 (1.8-7.8); NEUTROPHILS % (AUTO) 80 % (42-75); PLATELET COUNT 582 10^3/uL (130-400); RED BLOOD COUNT 4.06 10^6/uL (4.35-5.85); RED CELL DISTRIBUTION WIDTH 13.5 % (10.0-14.5); WHITE BLOOD COUNT 18.8 10^3/uL (4.3-11.0)
== END 2017-12-24 | disposition home or self-care (01) ==
LOC: ONC 13:08
PROVIDERS: ATTEND Internal Medicine Hematology & Oncology
DX: D72.829 Elevated white blood cell count, unspecified (principal); D47.3 Essential (hemorrhagic) thrombocythemia; E88.01 Alpha-1-antitrypsin deficiency; J44.9 Chronic obstructive pulmonary disease, unspecified; I10 Essential (primary) hypertension; R06.02 Shortness of breath; R07.9 Chest pain, unspecified; M17.0 Bilateral primary osteoarthritis of knee; F41.9 Anxiety disorder, unspecified; J45.909 Unspecified asthma, uncomplicated; R19.7 Diarrhea, unspecified; Z79.899 Other long term (current) drug therapy; Z95.0 Presence of cardiac pacemaker
CPT/HCPCS: 81206; 81270; 85007; 85025; 85027; 86141; 88184; 88185; 99213; 99214

== ENCOUNTER → 2017-11-13 | Outpatient (CLI) | payer MEDICARE, MEDICAID ==
--- NOTE | 2017-11-13 22:51 | Diagnostic Imaging Report ---
INDICATION: Screening. At this time there are no current complaints. EXAMINATION: Bilateral digital screening mammogram with CAD. 3D tomographic images were obtained and reviewed. The current study was also evaluated with a Computer Aided Detection (CAD) system. COMPARISON: This study was compared to the prior exams of 11/04/2016 and 12/13/2014. FINDINGS: This study is less than optimal as the pectoralis muscle on the MLO view of the left breast was not included. By history, the patient had a fracture of the left shoulder six weeks ago and consequently she was difficult to position. There are scattered fibroglandular densities in both breasts which could obscure a lesion. When compare the prior study does not appear to been any significant change. There is no primary or secondary sign of malignancy noted. The benign-appearing nodular densities in the right breast seen on the posterior are again evident and no different. IMPRESSION: 1. There is no evidence for malignancy on this suboptimal exam. 2. It may prove worthwhile to have a six-month followup mammogram of the left breast for further evaluation since the left breast was not visualized in its entirety on this exam due to the patient's recent left shoulder fracture. ACR BI-RADS Category 3: Probably benign findings. Result letter will be mailed to the patient. Note: At least 10% of breast cancer is not imaged by mammography. Dictated by: Dictated on workstation # [id number]
== END ==
LOC: RAD 09:47
PROVIDERS: ATTEND Nurse Practitioner
DX: Z12.31 Encounter for screening mammogram for malignant neoplasm of breast (principal)
CPT/HCPCS: 77067

== ENCOUNTER 2018-01-15 10:50 | Outpatient (RCR) | payer MEDICARE, MEDICAID ==
[~2018-01-15 10:50] MED LIST changes: -AMLO5TAB2 PO; +AMLO5TAB7 PO
[2018-01-15 11:12] LABS: BASOPHILS # (AUTO) 0.1 10^3/uL (0.0-0.1); BASOPHILS % (AUTO) 0 % (0-10); EOSINOPHILS # (AUTO) 0.4 10^3/uL (0.0-0.3); EOSINOPHILS % (AUTO) 2 % (0-10); HEMATOCRIT 39 % (35-52); LYMPHOCYTES # (AUTO) 3.4 X 10^3 (1.0-4.0); LYMPHOCYTES % (AUTO) 18 % (12-44); MEAN CORPUSCULAR HEMOGLOBIN 30 PG (25-34); MEAN CORPUSCULAR HGB CONC 34 G/DL (32-36); MEAN CORPUSCULAR VOLUME 89 FL (80-99); MEAN PLATELET VOLUME 8.7 FL (7.4-10.4); MONOCYTES # (AUTO) 1.2 X 10^3 (0.0-1.0); MONOCYTES % (AUTO) 6 % (0-12); NEUTROPHILS # (AUTO) 14.2 X 10^3 (1.8-7.8); NEUTROPHILS % (AUTO) 74 % (42-75); PLATELET COUNT 435 10^3/uL (130-400); RED BLOOD COUNT 4.32 10^6/uL (4.35-5.85); RED CELL DISTRIBUTION WIDTH 14.2 % (10.0-14.5); WHITE BLOOD COUNT 19.2 10^3/uL (4.3-11.0)
[2018-01-15 11:32] LABS: BILIRUBIN,TOTAL 0.6 MG/DL (0.1-1.0); CALCIUM 10.4 MG/DL (8.5-10.1); CREATININE SERUM 1.05 MG/DL (0.60-1.30); POTASSIUM 4.7 MMOL/L (3.6-5.0)
== END 2018-02-05 | disposition home or self-care (01) ==
LOC: ONC 10:50
PROVIDERS: ATTEND Internal Medicine Hematology & Oncology
DX: D72.829 Elevated white blood cell count, unspecified (principal); D47.3 Essential (hemorrhagic) thrombocythemia; E88.01 Alpha-1-antitrypsin deficiency; J44.9 Chronic obstructive pulmonary disease, unspecified; I10 Essential (primary) hypertension; R06.02 Shortness of breath; R07.9 Chest pain, unspecified; M17.0 Bilateral primary osteoarthritis of knee; F41.9 Anxiety disorder, unspecified; J45.909 Unspecified asthma, uncomplicated; R19.7 Diarrhea, unspecified; Z79.899 Other long term (current) drug therapy; Z95.0 Presence of cardiac pacemaker
CPT/HCPCS: 36415; 80053; 85025; 99213

== ENCOUNTER → 2018-02-16 | Outpatient (CLI) | payer MEDICARE, MEDICAID ==
--- NOTE | 2018-02-16 14:05 | Diagnostic Imaging Report ---
INDICATION: SOB, ALPHA 1 ANTITRYPSIN DEFICIENCY, ANXIETY, ARTHRITIS. COMPARISON: 09/27/2017. FINDINGS: Frontal and lateral views of the chest demonstrate normal heart size and pulmonary vascularity. The lungs are clear. There are no signs of infiltrate, pleural effusions or pneumothoraces. The visualized osseous structures show no acute abnormalities. Left-sided dual-lead pacemaker is noted. IMPRESSION: 1. No acute process. No signs of infiltrates, effusions or pneumothoraces. Dictated by: Dictated on workstation # [id number]
== END ==
LOC: RAD 10:37
PROVIDERS: ATTEND Internal Medicine Critical Care Medicine
DX: E88.01 Alpha-1-antitrypsin deficiency (principal); F41.9 Anxiety disorder, unspecified; M19.90 Unspecified osteoarthritis, unspecified site
CPT/HCPCS: 71046

== ENCOUNTER → 2018-03-10 | Outpatient (CLI) | payer MEDICARE, MEDICAID | LOC: RT 02-01 13:20 | PROVIDERS: ATTEND Nurse Practitioner Family | DX: R06.02 Shortness of breath (principal); J45.909 Unspecified asthma, uncomplicated | CPT/HCPCS: 94060; 94726; 94729 ==

== ENCOUNTER → 2018-03-22 | Outpatient (CLI) | payer MEDICARE, MEDICAID ==
--- NOTE | 2018-03-22 14:24 | Diagnostic Imaging Report ---
Indication: Back pain. Four views were obtained. Findings: Bones are osteopenic. Some exacerbation of the normal thoracic kyphosis. There are moderate degenerative changes. No fracture or traumatic subluxation. The visualized lungs are clear. Pacemaker overlies the left hemithorax. Impression: Moderate thoracic spondylosis with some exacerbation of the normal thoracic kyphosis. No acute fracture or traumatic subluxation. Dictated by: Dictated on workstation # [id number]
== END ==
LOC: RAD 11:05
PROVIDERS: ATTEND Internal Medicine
DX: M47.814 Spondylosis without myelopathy or radiculopathy, thoracic region (principal); M40.204 Unspecified kyphosis, thoracic region
CPT/HCPCS: 72072

== ENCOUNTER → 2018-04-15 | Outpatient (CLI) | payer MEDICARE, MEDICAID | LOC: CARD 12:45 | PROVIDERS: ATTEND Internal Medicine Interventional Cardiology | DX: R06.02 Shortness of breath (principal); E88.01 Alpha-1-antitrypsin deficiency ==

== ENCOUNTER 2018-04-16 09:37 | Outpatient (RCR) | payer MEDICARE, MEDICAID ==
[~2018-04-16 09:37] MED LIST changes: -AMLO5TAB7 PO; +AMLO5TAB9 PO; +FLUT16SP22 NS; -FLUT16SP22 NSEACH; -TRAM50TA2
[2018-04-16 09:56] LABS: BASOPHILS # (AUTO) 0.1 10^3/uL (0.0-0.1); BASOPHILS % (AUTO) 0 % (0-10); EOSINOPHILS # (AUTO) 0.4 10^3/uL (0.0-0.3); EOSINOPHILS % (AUTO) 2 % (0-10); HEMATOCRIT 40 % (35-52); HEMOGLOBIN 13.3 G/DL (11.5-16.0); LYMPHOCYTES # (AUTO) 4.4 X 10^3 (1.0-4.0); LYMPHOCYTES % (AUTO) 27 % (12-44); MEAN CORPUSCULAR HEMOGLOBIN 30 PG (25-34); MEAN CORPUSCULAR HGB CONC 33 G/DL (32-36); MEAN CORPUSCULAR VOLUME 90 FL (80-99); MEAN PLATELET VOLUME 8.8 FL (7.4-10.4); MONOCYTES % (AUTO) 6 % (0-12); NEUTROPHILS # (AUTO) 10.3 X 10^3 (1.8-7.8); NEUTROPHILS % (AUTO) 64 % (42-75); PLATELET COUNT 422 10^3/uL (130-400); RED CELL DISTRIBUTION WIDTH 14.4 % (10.0-14.5); WHITE BLOOD COUNT 16.2 10^3/uL (4.3-11.0)
[2018-04-16 10:13] LABS: ALBUMIN 4.2 GM/DL (3.2-4.5); BILIRUBIN,TOTAL 0.5 MG/DL (0.1-1.0); CALCIUM 10.4 MG/DL (8.5-10.1); CREATININE SERUM 0.97 MG/DL (0.60-1.30); POTASSIUM 3.8 MMOL/L (3.6-5.0); TOTAL PROTEIN 7.5 GM/DL (6.4-8.2)
[2018-04-27] MEDS ORDERED: MOME0.242 IH (07:30)
[2018-04-27] MEDS ORDERED: CHOL4PAC16 PO ×2 (07:30)
[2018-04-27] MEDS ORDERED: FEXO-46 PO (07:30)
[2018-04-27] MEDS ORDERED: DIPH25CA79 PO (07:30)
[2018-04-27] MEDS ORDERED: LOPE-145 PO (10:42)
[2018-04-27] MEDS ORDERED: ESTR10TA VG (10:42)
[2018-04-27] MEDS ORDERED: RIVA3CAP5 PO (10:42)
[2018-04-27] MEDS ORDERED: ACET-2267 PO (10:42)
[2018-04-27] MEDS ORDERED: BUDE3CAP5 PO (10:42)
[2018-04-27] MEDS ORDERED: IBAN150T8 PO (10:42)
[2018-04-28] MEDS ORDERED: RIVA20TA PO (09:10)
[2018-04-28] MEDS ORDERED: RIVA15TA PO (09:10)
[2018-04-30] MEDS ORDERED: MAGN400T39 PO (22:56)
[2018-07-16 10:19] LABS: BASOPHILS # (AUTO) 0.1 10^3/uL (0.0-0.1); BASOPHILS % (AUTO) 0 % (0-10); EOSINOPHILS # (AUTO) 0.6 10^3/uL (0.0-0.3); EOSINOPHILS % (AUTO) 5 % (0-10); HEMATOCRIT 38 % (35-52); HEMOGLOBIN 12.1 G/DL (11.5-16.0); LYMPHOCYTES # (AUTO) 2.8 X 10^3 (1.0-4.0); LYMPHOCYTES % (AUTO) 23 % (12-44); MEAN CORPUSCULAR HEMOGLOBIN 28 PG (25-34); MEAN CORPUSCULAR HGB CONC 32 G/DL (32-36); MEAN CORPUSCULAR VOLUME 87 FL (80-99); MEAN PLATELET VOLUME 9.2 FL (7.4-10.4); MONOCYTES # (AUTO) 0.9 X 10^3 (0.0-1.0); MONOCYTES % (AUTO) 7 % (0-12); NEUTROPHILS % (AUTO) 65 % (42-75); PLATELET COUNT 481 10^3/uL (130-400); RED CELL DISTRIBUTION WIDTH 14.2 % (10.0-14.5); WHITE BLOOD COUNT 12.2 10^3/uL (4.3-11.0)
[2018-07-16 10:38] LABS: ALBUMIN 4.1 GM/DL (3.2-4.5); BILIRUBIN,TOTAL 0.3 MG/DL (0.1-1.0); CALCIUM 9.9 MG/DL (8.5-10.1); CREATININE SERUM 1.16 MG/DL (0.60-1.30); POTASSIUM 4.1 MMOL/L (3.6-5.0); TOTAL PROTEIN 7.5 GM/DL (6.4-8.2)
== END 2018-07-15 | disposition home or self-care (01) ==
LOC: ONC 09:37
PROVIDERS: ATTEND Internal Medicine Hematology & Oncology
DX: D72.829 Elevated white blood cell count, unspecified (principal); D47.3 Essential (hemorrhagic) thrombocythemia; E88.01 Alpha-1-antitrypsin deficiency; J44.9 Chronic obstructive pulmonary disease, unspecified; I10 Essential (primary) hypertension; R06.02 Shortness of breath; R07.9 Chest pain, unspecified; M17.0 Bilateral primary osteoarthritis of knee; F41.9 Anxiety disorder, unspecified; J45.909 Unspecified asthma, uncomplicated; R19.7 Diarrhea, unspecified; Z79.899 Other long term (current) drug therapy; Z95.0 Presence of cardiac pacemaker
CPT/HCPCS: 36415; 80053; 85025; 99213

== ENCOUNTER 2018-04-26 16:23 | Inpatient (IN) | payer MEDICARE, MEDICAID ==
[~2018-04-26] VITALS: Ht 160 cm; Wt 64.2 kg
[~2018-04-26 16:23] MED LIST changes: -BUDE3CAP5 PO; -CHOL4PAC16 PO; -DIPH25CA79 PO; -FEXO-46 PO; -IOHEXOL 350 MG/ML 150 ML (OMNIPAQUE 350) VIAL IV ONE; -LOPE-145 PO; -MOME0.242 IH; -NS 250 ML (IVPB) BAG IV ONE; -RECEIVED CONTRAST (Hold Metformin) IV SCH; -RIVA15TA PO; -RIVA20TA PO; -RIVA3CAP5 PO
[2018-04-26 16:40] VITALS: BP 133/69
--- NOTE | 2018-04-26 16:47 | History & Physical-Hospitalist ---
History of Present Illness HPI/Chief Complaint Pt is a 78yoCF with a PMH of CAD, COPD, HTN, and dementia who was direct admitted from Dr Lowery's office after CTA revealed bilateral pulmonary emboli. She was seen in his clinic for routine follow up and was noted to have conversational dyspnea. Her vitals were normal but her DLCO was decreased so CTA was done. Patient has fairly significant dementia and is unable to tell me this information and despite having been told she has bilateral PEs she was surprised to hear this again. She complains of SOB and pain with deep breathes. Her daughters are with her and states she has baseline anxiety but has been more anxious since being told she has blood clots. Source: patient, family Date Seen 04/26/18 Time Seen by a Provider: 16:47 Attending Physician Tracee Wright MD PCP Romeo Kent MD Referring Physician Date of Admission Apr 26, 2018 at 4:25 pm Home Medications & Allergies Home Medications Reviewed patient Home Medication Reconciliation performed by pharmacy medication reconciliations orthodontic technician and/or nursing. Patients Allergies have been reviewed. Allergies Allergies Coded Allergies Penicillins (Verified Allergy, Mild, 08/13/15) ketorolac (Verified Allergy, Mild, 08/13/15) morphine (Verified Allergy, Mild, 08/13/15) tetracycline (Verified Allergy, Mild, 08/13/15) paroxetine (Unverified Allergy, Unknown, 02/24/16) Past Bkkdtha-Plcgmy-Xreafq Hx Past Med/Social Hx: Reviewed Nursing Past Med/Soc Hx Patient Social History Employed/Student: retired Alcohol Beverage of Choice: Wine Recent Hopitalizations: No Immunizations Up To Date Tetanus Booster (TDap): Unknown Date of Pneumonia Vaccine: Feb 10, 2017 Date of Influenza Vaccine: Mar 09, 2017 Seasonal Allergies Seasonal Allergies: No Past Medical History Surgeries: Abdominal, Appendectomy, Gallbladder, 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, Joint Replacement, Orthopedic, Pacemaker Currently Using CPAP: No Currently Using BIPAP: No Cardiac: High Cholesterol, Hypertension Neurological: Dementia 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: No Sexually Transmitted Disease: No HIV/AIDS: No Female 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 Disorders: Denies, Endometriosis 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, Menopausal Gastrointestinal: Gastrointestinal Bleed, Chronic Constipation, Polyps, Ulcer, Irritable Bowel Musculoskeletal: Degenerate Disk Disease, Arthritis, Chronic Back Pain, Fractures HEENT: Cataract Loss of Vision: Denies Hearing Impairment: Hard of Hearing Psychosocial: Anxiety History of Blood Disorders: No Family History Reviewed Nursing Family Hx Blood clots (sister had a blood clot in the brain which caused her  in 2010) Review of Systems ROS-Unable to Obtain: LImited due to dementia Constitutional: see HPI Physical Exam Physical Exam Vital Signs Vital Signs - First Documented 04/26/18 04/26/18 16:40 19:24 Temp 96.0 Pulse 82 Resp 22 B/P (MAP) 133/69 (90) Pulse Ox 96 O2 Delivery Room Air O2 Flow Rate 2.00 Capillary Refill : Height, Weight, BMI Height: 5'3.00" Weight: 204lbs. 3.0oz. 92.628585dv; 36.4 BMI Method:Stated General Appearance: No Apparent Distress, Chronically ill Respiratory: Lungs Clear, Normal Breath Sounds, No Accessory Muscle Use, No Respiratory Distress Cardiovascular: Regular Rate, Rhythm, No JVD, No Murmur Gastrointestinal: Normal Bowel Sounds, Non Tender, Soft Neurologic/Psychiatric: Alert, Disoriented Results Results/Procedures Labs Laboratory Tests 04/26/18 17:35 04/27/18 04:22 04/28/18 04:05 Patient resulted labs reviewed. Imaging: Reviewed Imaging Films, Reviewed Imaging Report Assessment/Plan Admission Diagnosis Bilateral PE Admission Status: Inpatient Order (span 2 midnights) Reason for Inpatient Admission: Will likely take more than two midnights for stabilization for DC Diagnosis/Problems Diagnosis/Problems (1) Bilateral pulmonary embolism Status: Acute Assessment & Plan: Discussed with Dr Lowery Will consult Start on Xarelto given labs from 04/16 WNL Will repeat CBC and INR now (2) Severe anxiety Status: Acute Assessment & Plan: Has baseline anxiety and recently had Ativan dose recently increased Will start Ativan (3) Dementia Status: Chronic Assessment & Plan: Resume home seroquel Qualifiers: Dementia type: unspecified type Dementia behavioral disturbance: without behavioral disturbance Qualified Codes: F03.90 - Unspecified dementia without behavioral disturbance (4) Essential (primary) hypertension Assessment & Plan: Monitor Hold home BP for now (5) CAD (coronary artery disease) Assessment & Plan: Previous stents per review of records Will check troponin Consider Echo in AM Qualifiers: Coronary Disease-Associated Artery/Lesion type: [place] artery [place] vs. transplanted heart: [place] heart Associated angina: without angina Qualified Codes: I25.10 - Atherosclerotic heart disease of [place] coronary artery without angina pectoris TRACEE WRIGHT MD Apr 26, 2018 16:47
[2018-04-26] MEDS ORDERED: RT-LEVALBUTEROL (XOPENEX) 1.25 MG/3 ML NEB NON-FORMULARY INH PRN (17:30)
[2018-04-26] MEDS: HYDROcodone/APAP 5 MG/325 MG (LORTAB) TAB PO PRN ×2 (17:30→21:56)
[2018-04-26] MEDS: LORazepam INJ 2 MG/ML (ATIVAN) VIAL IVP PRN ×2 (17:31→21:56)
[2018-04-26 17:41] LABS: BASOPHILS # (AUTO) 0.1 10^3/uL (0.0-0.1); BASOPHILS % (AUTO) 0 % (0-10); EOSINOPHILS # (AUTO) 0.1 10^3/uL (0.0-0.3); EOSINOPHILS % (AUTO) 0 % (0-10); HEMATOCRIT 37 % (35-52); HEMOGLOBIN 12.3 G/DL (11.5-16.0); LYMPHOCYTES # (AUTO) 2.3 X 10^3 (1.0-4.0); LYMPHOCYTES % (AUTO) 11 % (12-44); MEAN CORPUSCULAR HEMOGLOBIN 30 PG (25-34); MEAN CORPUSCULAR HGB CONC 34 G/DL (32-36); MEAN CORPUSCULAR VOLUME 88 FL (80-99); MEAN PLATELET VOLUME 8.9 FL (7.4-10.4); MONOCYTES # (AUTO) 1.1 X 10^3 (0.0-1.0); MONOCYTES % (AUTO) 5 % (0-12); NEUTROPHILS # (AUTO) 17.6 X 10^3 (1.8-7.8); NEUTROPHILS % (AUTO) 84 % (42-75); PLATELET COUNT 372 10^3/uL (130-400); RED BLOOD COUNT 4.15 10^6/uL (4.35-5.85); RED CELL DISTRIBUTION WIDTH 14.1 % (10.0-14.5)
[2018-04-26 18:02] LABS: BAND NEUTROPHILS 2 %; BASOPHILS % (MANUAL) 0 %; BUN/CREATININE RATIO 22; CALCIUM 9.6 MG/DL (8.5-10.1); CARBON DIOXIDE 24 MMOL/L (21-32); CHLORIDE 89 MMOL/L (98-107); CREATININE SERUM 1.12 MG/DL (0.60-1.30); EOSINOPHILS % (MANUAL) 0 %; GFR ESTIMATED 47; GLUCOSE 136 MG/DL (70-105); LYMPHOCYTES % (MANUAL) 16 %; MONOCYTES % (MANUAL) 3 %; NEUTROPHILS % (MANUAL) 79 %; POTASSIUM 3.7 MMOL/L (3.6-5.0)
[2018-04-26] MEDS: RIVAROXABAN 15 MG TABLET (XARELTO) PO SCH (18:02)
[2018-04-26 18:03] LABS: RBC MORPH NORMAL
[2018-04-26 18:11] LABS: SODIUM 124 MMOL/L (135-145)
[2018-04-26] MEDS: NS IV 1000 ML 1,000 ML IV SCH (18:47)
[2018-04-26] MEDS: RT-LEVALBUTEROL (XOPENEX) 1.25 MG/3 ML NEB NON-FORMULARY INH SCH (19:24)
[2018-04-26] MEDS: MONTELUKAST 10 MG (SINGULAIR) TAB PO SCH (20:20)
[2018-04-26] MEDS: QUEtiapine 100 MG (SEROquel) TAB IMMEDIATE RELEASE PO SCH (20:20)
[2018-04-26 20:25] VITALS: BP 123/58
[2018-04-27] VITALS: BP 109/54
[2018-04-27 04:00] VITALS: BP 131/67
[2018-04-27] MEDS: NS IV 1000 ML 1,000 ML IV SCH (04:26)
[2018-04-27 05:01] LABS: BASOPHILS % (AUTO) 0 % (0-10); EOSINOPHILS # (AUTO) 0.3 10^3/uL (0.0-0.3); EOSINOPHILS % (AUTO) 2 % (0-10); HEMATOCRIT 34 % (35-52); HEMOGLOBIN 11.4 G/DL (11.5-16.0); LYMPHOCYTES # (AUTO) 3.2 X 10^3 (1.0-4.0); LYMPHOCYTES % (AUTO) 19 % (12-44); MEAN CORPUSCULAR HEMOGLOBIN 30 PG (25-34); MEAN CORPUSCULAR HGB CONC 34 G/DL (32-36); MEAN CORPUSCULAR VOLUME 88 FL (80-99); MEAN PLATELET VOLUME 8.9 FL (7.4-10.4); MONOCYTES % (AUTO) 6 % (0-12); NEUTROPHILS # (AUTO) 12.5 X 10^3 (1.8-7.8); NEUTROPHILS % (AUTO) 74 % (42-75); PLATELET COUNT 381 10^3/uL (130-400); RED CELL DISTRIBUTION WIDTH 14.5 % (10.0-14.5); WHITE BLOOD COUNT 17.1 10^3/uL (4.3-11.0)
[2018-04-27 05:16] LABS: INR 1.8 (0.8-1.4); PROTHROMBIN TIME PATIENT 20.6 SEC (12.2-14.7)
[2018-04-27 05:24] LABS: BUN/CREATININE RATIO 26; CALCIUM 9.5 MG/DL (8.5-10.1); CARBON DIOXIDE 23 MMOL/L (21-32); CHLORIDE 94 MMOL/L (98-107); GFR ESTIMATED > 60; GLUCOSE 99 MG/DL (70-105); POTASSIUM 3.4 MMOL/L (3.6-5.0); SODIUM 129 MMOL/L (135-145)
[2018-04-27 07:20] VITALS: BP 158/74
[2018-04-27] MEDS ORDERED: MOME0.242 IH ×2 (07:30)
[2018-04-27] MEDS ORDERED: CHOL4PAC16 PO ×3 (07:30)
[2018-04-27] MEDS ORDERED: DIPH25CA79 PO ×2 (07:30)
[2018-04-27] MEDS ORDERED: FEXO-46 PO ×2 (07:30)
[2018-04-27] MEDS: RIVAROXABAN 15 MG TABLET (XARELTO) PO SCH ×2 (07:31→17:39)
[2018-04-27] MEDS: RT-LEVALBUTEROL (XOPENEX) 1.25 MG/3 ML NEB NON-FORMULARY INH SCH ×2 (08:58→19:09)
[2018-04-27] MEDS: HYDROcodone/APAP 5 MG/325 MG (LORTAB) TAB PO PRN ×2 (09:33→13:07)
[2018-04-27] MEDS: FLUTICASONE NASAL SPRAY (FLONASE) 16 GM BTL NS SCH (09:36)
--- NOTE | 2018-04-27 10:39 | Progress Note-Hospitalist ---
Subjective HPI/CC On Admission Date Seen by Provider: Apr 27, 2018 Time Seen by Provider: 10:31 Pt is a 78yoCF with a PMH of CAD, COPD, HTN, and dementia who was direct admitted from Dr Lowery's office after CTA revealed bilateral pulmonary emboli. She was seen in his clinic for routine follow up and was noted to have conversational dyspnea. Her vitals were normal but her DLCO was decreased so CTA was done. Patient has fairly significant dementia and is unable to tell me this information and despite having been told she has bilateral PEs she was surprised to hear this again. She complains of SOB and pain with deep breathes. Her daughters are with her and states she has baseline anxiety but has been more anxious since being told she has blood clots. Subjective/Events-last exam Pt reports feeling better but still having some mild back pain. No other complaints. Objective Exam Vital Signs Vital Signs Date Time Temp Pulse Resp B/P (MAP) Pulse Ox O2 Delivery O2 Flow Rate FiO2 04/27/18 08:58 92 Nasal Cannula 2.00 04/27/18 07:20 96.6 70 20 158/74 (102) Capillary Refill : General Appearance: No Apparent Distress, WD/WN Respiratory: Lungs Clear, No Respiratory Distress Cardiovascular: Regular Rate, Rhythm, No Murmur Extremity: No Calf Tenderness, No Pedal Edema Neurologic/Psychiatric: Alert, Disoriented Results/Procedures Lab Laboratory Tests 04/26/18 17:35 04/27/18 04:22 Patient resulted labs reviewed. Imaging: Reviewed Imaging Films, Reviewed Imaging Report Assessment/Plan Assessment and Plan Assess & Plan/Chief Complaint Bilateral PE Diagnosis/Problems Diagnosis/Problems (1) Bilateral pulmonary embolism Status: Acute Assessment & Plan: Continue Xarelto Tolerating well Pulm consulted, appreciate recs (2) Severe anxiety Status: Acute Assessment & Plan: Continue ativan Transition to oral (3) Dementia Status: Chronic Assessment & Plan: Resume home seroquel Qualifiers: Dementia type: unspecified type Dementia behavioral disturbance: without behavioral disturbance Qualified Codes: F03.90 - Unspecified dementia without behavioral disturbance (4) Essential (primary) hypertension Assessment & Plan: Resume home BP meds (5) CAD (coronary artery disease) Assessment & Plan: Troponin negative Continue home meds Qualifiers: Coronary Disease-Associated Artery/Lesion type: [place] artery [place] vs. transplanted heart: [place] heart Associated angina: without angina Qualified Codes: I25.10 - Atherosclerotic heart disease of [place] coronary artery without angina pectoris (6) COPD (chronic obstructive pulmonary disease) Status: Chronic Assessment & Plan: alpha 1 antitrypsin deficiency Follows with Dr Beverley Niño ordered Mat Protocol Qualifiers: COPD type: emphysema Emphysema type: unspecified Qualified Codes: J43.9 - Emphysema, unspecified Clinical Quality Measures DVT/VTE Risk/Contraindication: Risk Factor Score Per Nursin RFS Level Per Nursing on Admit: 4+=Very High TRACEE FLETCHER MD Apr 27, 2018 10:39 am
[2018-04-27] MEDS ORDERED: ACET-2267 PO ×2 (10:42)
[2018-04-27] MEDS ORDERED: BUDE3CAP5 PO ×2 (10:42)
[2018-04-27] MEDS ORDERED: RIVA3CAP5 PO ×2 (10:42)
[2018-04-27] MEDS ORDERED: IBAN150T8 PO ×2 (10:42)
[2018-04-27] MEDS ORDERED: LOPE-145 PO ×2 (10:42)
[2018-04-27] MEDS ORDERED: ESTR10TA VG ×2 (10:42)
[2018-04-27 11:31] VITALS: BP 118/60
--- NOTE | 2018-04-27 15:35 | Pulmonary Consultation ---
History of Present Illness History of Present Illness Date of Consultation 04/27/18 15:33 Date of Admission Allergies and Home Medications Allergies Coded Allergies: Penicillins (Verified Allergy, Mild, 08/13/15) ketorolac (Verified Allergy, Mild, 08/13/15) morphine (Verified Allergy, Mild, 08/13/15) tetracycline (Verified Allergy, Mild, 08/13/15) paroxetine (Unverified Allergy, Unknown, 02/24/16) Home Medications Acetaminophen 500 Mg Tablet, 1,000 MG PO DAILY, (Reported) TAKES 2 (500 MG) TABLETS Acetaminophen 500 Mg Tablet, 1,000 MG PO BID PRN for PAIN-MILD, (Reported) Amlodipine Besylate 5 Mg Tablet, 5 MG PO HS, (Reported) Budesonide 3 Mg Capdr...er, 9 MG PO DAILY, (Reported) TAKES 3 (3MG) CAPSULES Calcium Carbonate/Vitamin D3 1 Each Tablet, 1 TAB PO DAILY, (Reported) Cholestyramine (with Sugar) 4 Gm Powd.pack, 4 GM PO DAILY PRN for LOOSE STOOLS, (Reported) Citalopram Hydrobromide 10 Mg Tablet, 30 MG PO HS, (Reported) TAKES 3 (10 MG) TABLETS Diphenhydramine HCl 25 Mg Capsule, 25 MG PO BID PRN for ITCHING, (Reported) Estradiol 42.5 Gm Cream.appl, VG HS, (Reported) APPLY PEA SIZED AMOUNT TO OUTER VAGINAL AREA AT BEDTIME Estradiol 10 Mcg Tablet, 10 MCG VG TuFr, (Reported) Fexofenadine HCl 180 Mg Tablet, 180 MG PO DAILY, (Reported) Fluticasone Propionate 16 Gm [place].susp, 1 SPRAY NS DAILY, (Reported) Folic Acid 1 Mg Tablet, 1 MG PO DAILY, (Reported) Hydrochlorothiazide 25 Mg Tablet, 25 MG PO DAILY, (Reported) Ibandronate Sodium 150 Mg Tablet, 150 MG PO EVERY 3 MONTHS, (Reported) DUE NEXT 05-29-18 Lisinopril 20 Mg Tablet, 20 MG PO BID, (Reported) Loperamide HCl 2 Mg Capsule, 2 MG PO Q8H PRN for LOOSE STOOLS, (Reported) Lorazepam 0.5 Mg Tablet, 0.5 MG PO BID, (Reported) Mometasone Furoate 220 Mcg Aer.pow.ba, 1 PUFF IH HS, (Reported) Montelukast Sodium 10 Mg Tablet, 10 MG PO HS, (Reported) Multivitamin 1 Each Tablet, 1 TAB PO DAILY, (Reported) Omeprazole 20 Mg Capsule.dr, 20 MG PO DAILY, (Reported) Polyethylene Glycol 3350 17 Gm Powd.pack, 8.5 GM PO DAILY PRN for CONSTIPATION- 2ND LINE, (Reported) Pravastatin Sodium 40 Mg Tablet, 40 MG PO HS, (Reported) Quetiapine Fumarate 100 Mg Tablet, 100 MG PO HS, (Reported) Rivastigmine Tartrate 3 Mg Capsule, 3 MG PO BID, (Reported) Tramadol HCl 50 Mg Tablet, 50 MG PO TID PRN for BACK PAIN, (Reported) Triamcinolone Acetonide 80 Gm Oint...g., TP HS, (Reported) APPLIES TO LABIA MAJORA / MAY MIX WITH ESTRACE CREAM Past Vvbmesb-Cymqux-Asqpjm Hx Patient Social History Alcohol Use: Denies Use Alcohol Beverage of Choice: Wine Recreational Drug Use: No Smoking Status: Never a Smoker Recent Foreign Travel: No Contact w/Someone Who Travel: No Recent Infectious Disease Expo: No Recent Hopitalizations: No Immunizations Up To Date Tetanus Booster (TDap): Unknown Date of Pneumonia Vaccine: Feb 10, 2017 Date of Influenza Vaccine: Apr 06, 2018 Seasonal Allergies Seasonal Allergies: No Past Medical History Surgeries: Yes Abdominal, Appendectomy, Gallbladder, 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, Joint Replacement, Orthopedic, Pacemaker Respiratory: Yes (ALPHA 1 ANTITRIPSIN DEFICIENCY) Asthma, Pulmonary Embolism, COPD Currently Using CPAP: No Currently Using BIPAP: No Cardiac: Yes (PACEMAKER;"VASOVAGAL NERVE PROBLEMS" ) High Cholesterol, Hypertension Neurological: Yes Dementia 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 Disorders: No Female 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 Disorders: Denies, 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, 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 Sexually Transmitted Disease: No HIV/AIDS: No Genitourinary: Yes (INCONTINENCE) Gastrointestinal: Yes (BLEEDING ULCER X 3; PERFORATED ULCER 2006; 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) Gastrointestinal Bleed, Chronic Diarrhea, Polyps, Ulcer, Irritable Bowel Musculoskeletal: Yes (MOSTLY IN HANDS, KNEES, BACK; RIGHT SHOULDER REPLACEMENT) Degenerate Disk Disease, Arthritis, Chronic Back Pain, Fractures Endocrine: No HEENT: Yes Cataract Loss of Vision: Denies Hearing Impairment: Hard of Hearing Cancer: No Psychosocial: Yes Anxiety Integumentary: No Blood Disorders: No Family Medical History Blood clots (sister had a blood clot in the brain which caused her  in 2010) Sepsis Event Evaluation Height, Weight, BMI Height: 5'3.00" Weight: 141lbs. 9.0oz. 64.453717yk; 25.1 BMI Method:Stated Exam Exam Vital Signs Date Time Temp Pulse Resp B/P (MAP) Pulse Ox O2 Delivery O2 Flow Rate FiO2 04/27/18 15:06 94 2.00 04/27/18 11:31 98.4 68 20 118/60 (79) 95 Room Air 04/27/18 08:58 92 Nasal Cannula 2.00 04/27/18 08:00 94 Nasal Cannula 1.00 04/27/18 07:20 96.6 70 20 158/74 (102) 93 Nasal Cannula 1.00 04/27/18 07:00 62 04/27/18 04:00 98.2 64 20 131/67 (88) 94 Nasal Cannula 1.00 04/27/18 01:00 62 04/27/18 00:00 96.6 67 20 109/54 (72) 91 Nasal Cannula 1.00 04/26/18 20:25 97.7 71 20 123/58 (79) 94 Nasal Cannula 1.00 04/26/18 20:20 94 Nasal Cannula 1.00 04/26/18 19:24 94 Nasal Cannula 2.00 04/26/18 19:00 71 04/26/18 16:40 96.0 82 22 133/69 (90) 96 Room Air 04/26/18 16:40 Room Air I & O 04/27/18 07:00 Intake Total 1870 ml Output Total 1200 ml Balance 670 ml Height & Weight Height: 5'3.00" Weight: 141lbs. 9.0oz. 64.107925nk; 25.1 BMI Method:Stated General Appearance: No Apparent Distress, WD/WN Respiratory: Lungs Clear, No Respiratory Distress Cardiovascular: Regular Rate, Rhythm, No Murmur Extremity: No Calf Tenderness, No Pedal Edema Neurologic/Psychiatric: Alert, Disoriented Results Lab Laboratory Tests 04/26/18 17:35 04/27/18 04:22 Assessment/Plan Assessment/Plan Acute bilateral PE -Continue xeralto SOB with anxiety YUE JALLOH DO Apr 27, 2018 15:35
[2018-04-27 16:45] VITALS: BP 163/73
[2018-04-27] MEDS: RT-ADVAIR HFA 115/21 MCG PER PUFF IH SCH (19:09)
[2018-04-27 19:35] VITALS: BP 121/57
[2018-04-27] MEDS: LORazepam 0.5 MG (ATIVAN) TABLET PO SCH (20:02)
[2018-04-27] MEDS: QUEtiapine 100 MG (SEROquel) TAB IMMEDIATE RELEASE PO SCH (20:02)
[2018-04-27] MEDS: lisINopril 20 MG (PRINIVIL) TABLET PO SCH (20:02)
[2018-04-27] MEDS: RIVASTIGMINE 1.5 MG (EXELON) CAP PO SCH (20:02)
[2018-04-27] MEDS: MONTELUKAST 10 MG (SINGULAIR) TAB PO SCH (20:02)
[2018-04-27] MEDS ORDERED: NON-FORMULARY MEDICATION 1 EA EA (Pravastatin Sodium 40 MG) PO SCH (21:00)
[2018-04-27] MEDS ORDERED: NON-FORMULARY MEDICATION 1 EA EA (Amlodipine Besylate 5 MG) PO SCH (21:00)
[2018-04-27] MEDS ORDERED: ATORVASTATIN 10 MG (LIPITOR) TABLET PO SCH (21:00)
[2018-04-27] MEDS ORDERED: RIVASTIGMINE TARTRATE 3 MG PO SCH (21:00)
[2018-04-27] MEDS ORDERED: amLODIPine 5 MG (NORVASC) TAB PO SCH (21:00)
[2018-04-28 00:08] VITALS: BP 124/68
[2018-04-28 04:09] VITALS: BP 147/67
[2018-04-28 04:38] LABS: BASOPHILS # (AUTO) 0.1 10^3/uL (0.0-0.1); BASOPHILS % (AUTO) 0 % (0-10); EOSINOPHILS # (AUTO) 0.5 10^3/uL (0.0-0.3); EOSINOPHILS % (AUTO) 4 % (0-10); HEMATOCRIT 32 % (35-52); HEMOGLOBIN 10.4 G/DL (11.5-16.0); LYMPHOCYTES # (AUTO) 3.7 X 10^3 (1.0-4.0); LYMPHOCYTES % (AUTO) 28 % (12-44); MEAN CORPUSCULAR HEMOGLOBIN 29 PG (25-34); MEAN CORPUSCULAR HGB CONC 32 G/DL (32-36); MEAN CORPUSCULAR VOLUME 90 FL (80-99); MEAN PLATELET VOLUME 8.9 FL (7.4-10.4); MONOCYTES % (AUTO) 8 % (0-12); NEUTROPHILS # (AUTO) 7.9 X 10^3 (1.8-7.8); NEUTROPHILS % (AUTO) 60 % (42-75); PLATELET COUNT 333 10^3/uL (130-400); RED BLOOD COUNT 3.58 10^6/uL (4.35-5.85); RED CELL DISTRIBUTION WIDTH 14.5 % (10.0-14.5); WHITE BLOOD COUNT 13.1 10^3/uL (4.3-11.0)
[2018-04-28 04:47] LABS: INR 2.2 (0.8-1.4); PROTHROMBIN TIME PATIENT 24.3 SEC (12.2-14.7)
[2018-04-28 04:56] LABS: BUN/CREATININE RATIO 24; CALCIUM 9.3 MG/DL (8.5-10.1); CARBON DIOXIDE 23 MMOL/L (21-32); CHLORIDE 100 MMOL/L (98-107); CREATININE SERUM 0.86 MG/DL (0.60-1.30); GFR ESTIMATED > 60; GLUCOSE 93 MG/DL (70-105); POTASSIUM 3.5 MMOL/L (3.6-5.0); SODIUM 133 MMOL/L (135-145)
[2018-04-28] MEDS: RIVAROXABAN 15 MG TABLET (XARELTO) PO SCH (06:19)
--- NOTE | 2018-04-28 06:35 | Pulmonary Progress Note ---
Sepsis Event Evaluation Height, Weight, BMI Height: 5'3.00" Weight: 141lbs. 9.0oz. 64.915349ia; 25.1 BMI Method:Stated Exam Exam Vital Signs Date Time Temp Pulse Resp B/P (MAP) Pulse Ox O2 Delivery O2 Flow Rate FiO2 04/28/18 01:00 70 04/28/18 00:08 98.1 77 18 124/68 (86) 95 Nasal Cannula 2.00 04/27/18 20:00 Nasal Cannula 2.00 04/27/18 19:35 98.0 75 20 121/57 (78) 93 Nasal Cannula 2.00 04/27/18 19:17 Nasal Cannula 2.00 04/27/18 19:09 92 Nasal Cannula 2.00 04/27/18 19:00 70 04/27/18 16:45 98.2 75 20 163/73 (103) 97 Nasal Cannula 1.50 04/27/18 15:06 94 2.00 04/27/18 13:00 69 04/27/18 11:31 98.4 68 20 118/60 (79) 95 Room Air 04/27/18 08:58 92 Nasal Cannula 2.00 04/27/18 08:00 94 Nasal Cannula 1.00 04/27/18 07:20 96.6 70 20 158/74 (102) 93 Nasal Cannula 1.00 04/27/18 07:00 62 I & O 04/28/18 07:00 Intake Total 2054 ml Output Total 700 ml Balance 1354 ml Height & Weight Height: 5'3.00" Weight: 141lbs. 9.0oz. 64.403058mj; 25.1 BMI Method:Stated General Appearance: No Apparent Distress, WD/WN Respiratory: Lungs Clear, No Respiratory Distress Cardiovascular: Regular Rate, Rhythm, No Murmur Extremity: No Calf Tenderness, No Pedal Edema Neurologic/Psychiatric: Alert, Disoriented Results Lab Laboratory Tests 04/26/18 17:35 04/27/18 04:22 04/28/18 04:05 Assessment/Plan Assessment/Plan unprovoked Acute bilateral PE -Continue xeralto 15mg BID x21 days then 20mg daily -Recommend life long anticoagulation since unprovoked SOB with anxiety pt is ok from pulmonary stand point for discharge. I will follow her as an out patient. YUE JALLOH DO Apr 28, 2018 06:35
[2018-04-28 08:00] VITALS: BP 157/70
[2018-04-28] MEDS: RIVASTIGMINE 1.5 MG (EXELON) CAP PO SCH (08:50)
[2018-04-28] MEDS: FLUTICASONE NASAL SPRAY (FLONASE) 16 GM BTL NS SCH (08:50)
[2018-04-28] MEDS: lisINopril 20 MG (PRINIVIL) TABLET PO SCH (08:51)
[2018-04-28] MEDS: LORazepam 0.5 MG (ATIVAN) TABLET PO SCH (08:51)
[2018-04-28] MEDS ORDERED: NON-FORMULARY MEDICATION 1 EA EA (Fexofenadine HCl 180 MG) PO SCH (09:00)
[2018-04-28] MEDS ORDERED: NON-FORMULARY MEDICATION 1 EA EA (Hydrochlorothiazide 25 MG) PO SCH (09:00)
[2018-04-28] MEDS ORDERED: HYDROCHLOROTHIAZIDE 25 MG (HCTZ) TAB PO SCH (09:00)
[2018-04-28] MEDS ORDERED: BUDESONIDE 9 MG PO SCH (09:00)
[2018-04-28] MEDS ORDERED: LORATADINE (CLARITIN) 10 MG TAB PO SCH (09:00)
[2018-04-28] MEDS: RT-LEVALBUTEROL (XOPENEX) 1.25 MG/3 ML NEB NON-FORMULARY INH SCH (09:05)
[2018-04-28] MEDS: RT-ADVAIR HFA 115/21 MCG PER PUFF IH SCH (09:05)
--- NOTE | 2018-04-28 09:05 | Discharge Summary-Hospitalist ---
Diagnosis/Chief Complaint Date of Admission Apr 26, 2018 at 4:25 pm Date of Discharge Admission Diagnosis Bilateral PE Discharge Diagnosis (1) Bilateral pulmonary embolism Status: Acute Assessment & Plan: Continue Xarelto Tolerating well Pulm consulted, appreciate recs (2) Severe anxiety Status: Acute Assessment & Plan: Continue ativan Transition to oral (3) Dementia Status: Chronic Assessment & Plan: Resume home seroquel (4) Essential (primary) hypertension Assessment & Plan: Resume home BP meds (5) CAD (coronary artery disease) Assessment & Plan: Troponin negative Continue home meds (6) COPD (chronic obstructive pulmonary disease) Status: Chronic Assessment & Plan: alpha 1 antitrypsin deficiency Follows with Dr Beverley Niño ordered Mat Protocol Discharge Summary Procedures/Consulations Dr Lowery- [place] Discharge Physical Exam Allergies: Coded Allergies: Penicillins (Verified Allergy, Mild, 08/13/15) ketorolac (Verified Allergy, Mild, 08/13/15) morphine (Verified Allergy, Mild, 08/13/15) tetracycline (Verified Allergy, Mild, 08/13/15) paroxetine (Unverified Allergy, Unknown, 02/24/16) Vitals & I&Os Vital Signs Date Time Temp Pulse Resp B/P (MAP) Pulse Ox O2 Delivery O2 Flow Rate FiO2 04/28/18 12:59 87 22 157/70 92 Nasal Cannula 2.00 04/28/18 08:00 96.3 General Appearance: No Apparent Distress, WD/WN Respiratory: Lungs Clear, No Accessory Muscle Use, No Respiratory Distress Cardiovascular: Regular Rate, Rhythm, No Murmur Neurologic/Psychiatric: Disoriented Hospital Course Pt was admitted following outpatient CTA that revealed bilateral PEs. She was very dyspneic and was found to have a new oxygen requirement. She was started on Xarelto for anticoagulation and tolerated this well. Home oxygen was arranged for patient upon discharge. She is to follow up with Dr Lwoery as scheduled. I called and updated her PCP Mamadou Correia APRN regarding this hospital stay. Labs (last 24 hrs) Laboratory Tests 04/28/18 04:05: White Blood Count 13.1H, Red Blood Count 3.58L, Hemoglobin 10.4L, Hematocrit 32L , Mean Corpuscular Volume 90, Mean Corpuscular Hemoglobin 29, Mean Corpuscular Hemoglobin Concent 32, Red Cell Distribution Width 14.5, Platelet Count 333, Mean Platelet Volume 8.9, Neutrophils (%) (Auto) 60, Lymphocytes (%) (Auto) 28, Monocytes (%) (Auto) 8, Eosinophils (%) (Auto) 4, Basophils (%) (Auto) 0, Neutrophils # (Auto) 7.9H, Lymphocytes # (Auto) 3.7, Monocytes # (Auto) 1.0, Eosinophils # (Auto) 0.5H, Basophils # (Auto) 0.1, Prothrombin Time 24.3H, INR Comment 2.2H, Sodium Level 133L, Potassium Level 3.5L, Chloride Level 100, Carbon Dioxide Level 23, Anion Gap 10, Blood Urea Nitrogen 21H, Creatinine 0.86 , Estimat Glomerular Filtration Rate > 60, BUN/Creatinine Ratio 24, Glucose Level 93, Calcium Level 9.3 Patient resulted labs reviewed. Pending Labs Imaging: Reviewed Imaging Films, Reviewed Imaging Report Discussion & Recommendations Discharge Planning: >30 minutes discharge planning Discharge Home Medications: Active Scripts Active Xarelto (Rivaroxaban) 20 Mg Tablet 20 Mg PO DAILY@1700 BIN [id number] Xarelto (Rivaroxaban) 15 Mg Tablet 15 Mg PO BID@07,17 BIN [id number] [facility] [id number] Reported Ibandronate Sodium 150 Mg Tablet 150 Mg PO EVERY 3 MONTHS DUE NEXT 05-29-18 Tylenol Extra Strength (Acetaminophen) 500 Mg Tablet 1,000 Mg PO BID PRN Imodium A-D (Loperamide HCl) 2 Mg Capsule 2 Mg PO Q8H PRN Rivastigmine (Rivastigmine Tartrate) 3 Mg Capsule 3 Mg PO BID Budesonide EC (Budesonide) 3 Mg Capdr...er 9 Mg PO DAILY TAKES 3 (3MG) CAPSULES Vagifem (Estradiol) 10 Mcg Tablet 10 Mcg VG TUFR Asmanex (Mometasone Furoate) 220 Mcg Aer.pow.ba 1 Puff IH HS Fexofenadine HCl 180 Mg Tablet 180 Mg PO DAILY Benadryl (Diphenhydramine HCl) 25 Mg Capsule 25 Mg PO BID PRN Questran Packet (Cholestyramine (with Sugar)) 4 Gm Powd.pack 4 Gm PO DAILY PRN Tramadol HCl 50 Mg Tablet 50 Mg PO TID PRN Fluticasone Propionate 16 Gm [place].susp 1 Myton NS DAILY Triamcinolone Acetonide 0.025% Ointment (Triamcinolone Acetonide) 80 Gm Oint...g. TP HS APPLIES TO LABIA MAJORA / MAY MIX WITH ESTRACE CREAM Quetiapine Fumarate 100 Mg Tablet 100 Mg PO HS Folic Acid 1 Mg Tablet 1 Mg PO DAILY Hydrochlorothiazide 25 Mg Tablet 25 Mg PO DAILY Calcium 600 + Vit D 200 Tablet (Calcium Carbonate/Vitamin D3) 1 Each Tablet 1 Tab PO DAILY Miralax (Polyethylene Glycol 3350) 17 Gm Powd.pack 8.5 Gm PO DAILY PRN Estrace Cream (Estradiol) 42.5 Gm Cream.appl VG HS APPLY PEA SIZED AMOUNT TO OUTER VAGINAL AREA AT BEDTIME Tylenol Extra Strength (Acetaminophen) 500 Mg Tablet 1,000 Mg PO DAILY TAKES 2 (500 MG) TABLETS Amlodipine Besylate 5 Mg Tablet 5 Mg PO HS Montelukast Sodium 10 Mg Tablet 10 Mg PO HS Pravastatin Sodium 40 Mg Tablet 40 Mg PO HS Lisinopril 20 Mg Tablet 20 Mg PO BID Lorazepam 0.5 Mg Tablet 0.5 Mg PO BID Citalopram HBr (Citalopram Hydrobromide) 10 Mg Tablet 30 Mg PO HS TAKES 3 (10 MG) TABLETS Daily Multiple Vitamin (Multivitamin) 1 Each Tablet 1 Tab PO DAILY Omeprazole 20 Mg Capsule.dr 20 Mg PO DAILY Instructions to patient/family Please see electronic discharge instructions given to patient. Clinical Quality Measures DVT/VTE Risk/Contraindication: Risk Factor Score Per Nursin RFS Level Per Nursing on Admit: 4+=Very High Copy Copies To 1: BRAD HDEZ MD Problem Qualifiers (1) Dementia: Dementia type: unspecified type Dementia behavioral disturbance: without behavioral disturbance Qualified Codes: F03.90 - Unspecified dementia without behavioral disturbance (2) CAD (coronary artery disease): Coronary Disease-Associated Artery/Lesion type: [place] artery [place] vs. transplanted heart: [place] heart Associated angina: without angina Qualified Codes: I25.10 - Atherosclerotic heart disease of [place] coronary artery without angina pectoris (3) COPD (chronic obstructive pulmonary disease): COPD type: emphysema Emphysema type: unspecified Qualified Codes: J43.9 - Emphysema, unspecified TRACEE FLETCHER MD Apr 28, 2018 09:05
[2018-04-28] MEDS ORDERED: RIVA15TA PO ×2 (09:10)
[2018-04-28] MEDS ORDERED: RIVA20TA PO ×2 (09:10)
[2018-04-28 12:59] VITALS: BP 157/70
[2018-05-18] MEDS ORDERED: RIVAROXABAN 20 MG TABLET (XARELTO) PO SCH (17:00)
== END 2018-04-28 13:00 | DRG 176 ==
LOC: UNDOADMIN 16:25 → 4TH 16:25
PROVIDERS: ADMIT Family Medicine; ATTEND Family Medicine
DX: I26.99 Other pulmonary embolism without acute cor pulmonale (principal); J43.9 Emphysema, unspecified; I25.10 Atherosclerotic heart disease of native coronary artery without angina pectoris; I10 Essential (primary) hypertension; F03.90 Unspecified dementia, unspecified severity, without behavioral disturbance, psychotic disturbance, mood disturbance, and anxiety; F41.9 Anxiety disorder, unspecified; E88.01 Alpha-1-antitrypsin deficiency; E78.00 Pure hypercholesterolemia, unspecified; K58.1 Irritable bowel syndrome with constipation; M19.91 Primary osteoarthritis, unspecified site; M54.9 Dorsalgia, unspecified; Z86.010 Personal history of colon polyps; Z87.11 Personal history of peptic ulcer disease
CPT/HCPCS: 36415; 80048; 84484; 85007; 85025; 85027; 85610; 94640; 94760; 94761

== ENCOUNTER → 2018-04-26 | Outpatient (CLI) | payer MEDICARE, MEDICAID ==
[~2018-04-26] MED LIST changes: +AMLO5TAB7 PO; -AMLO5TAB9 PO; +BUDE3CAP5 PO; +CHOL4PAC16 PO; +DIPH25CA79 PO; +FEXO-46 PO; +IOHEXOL 350 MG/ML 150 ML (OMNIPAQUE 350) VIAL IV ONE; +LOPE-145 PO; +MOME0.242 IH; +NS 250 ML (IVPB) BAG IV ONE; +RECEIVED CONTRAST (Hold Metformin) IV SCH; +RIVA15TA PO; +RIVA20TA PO; +RIVA3CAP5 PO
[2018-04-26 15:36] LABS: CREATININE SERUM 1.2 MG/DL (0.60-1.30)
--- NOTE | 2018-04-26 15:58 | Diagnostic Imaging Report ---
PROCEDURE: CT angiography of the chest with contrast. TECHNIQUE: Multiple contiguous axial images were obtained through the chest after uneventful bolus administration of intravenous contrast. 2D reconstructed CTA MIP acquisitions were also performed. INDICATION: Shortness of breath, Alpha-1 antitrypsin deficiency FINDINGS: The lungs are clear. There is no effusion or pneumothorax. There is a large hiatal hernia. There is no hilar or mediastinal lymphadenopathy. There is a stent in the left anterior descending coronary artery. There is a dual-chamber pacemaker. There are emboli present in both lower lobes within segmental branches. There is also some emboli in the upper lobes and segmental branches. The aorta appears normal. IMPRESSION: Bilateral second and third order pulmonary emboli. CRITICAL FINDING Report given to nurse (Haydee) at 03:57 04/26/2018/cb Dictated by: Dictated on workstation # [id number]
== END ==
LOC: RAD 15:00
PROVIDERS: ATTEND Nurse Practitioner Family
DX: I26.99 Other pulmonary embolism without acute cor pulmonale (principal); E88.01 Alpha-1-antitrypsin deficiency; M19.90 Unspecified osteoarthritis, unspecified site; F41.9 Anxiety disorder, unspecified; Z95.5 Presence of coronary angioplasty implant and graft
CPT/HCPCS: 36415; 71275; 82565; 84520

== ENCOUNTER 2018-04-30 21:33 | Emergency (ER) | payer MEDICARE, MEDICAID ==
[~2018-04-30] VITALS: Ht 160 cm; Wt 64.2 kg
[~2018-04-30 21:33] MED LIST changes: +BUDE3CAP5 PO; +CHOL4PAC16 PO; +DIPH25CA79 PO; +FEXO-46 PO; +LOPE-145 PO; +MOME0.242 IH; +RIVA15TA PO; +RIVA20TA PO; +RIVA3CAP5 PO
--- OUTSIDE RECORDS SUMMARY | 2018-04-30 21:39 | XMS REPORT ---
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 Active 17697098 Problem Moderate persistent asthma with exacerbation J45.41 Active 016734010 Problem Anxiety F41.9 Active 87118703 Problem Compression fracture of vertebra, initial encounter M48.50XA Active 81311143 Problem Shortness of breath R06.02 Active 397304429 Problem Pain in thoracic spine M54.6 Active 372270359100590 Problem Adenomatous polyp of colon, unspecified part of colon D12.6 Active 874528294 Problem Lumbar spine pain M54.5 Active 232969116 Problem Other chronic pain G89.29 Active 08998545 Problem Memory loss R41.3 Active 87900293 Problem Arthritis M19.90 Active 9332900 Problem Fatigue R53.83 Active 78664193 Problem Pneumonia J18.9 Active 807490904 Problem Hypertension I10 Active 91837054 Problem Irritable bowel syndrome with diarrhea K58.0 Active 626918215 Problem GERD (gastroesophageal reflux disease) K21.9 Active 537500098 Problem Chronic post-traumatic headache, not intractable G44.329 Active 378830943 Problem Asthma J45.909 Active 632655278 Problem Seborrheic keratoses L82.1 Active 373005125 ALLERGIES No Information ENCOUNTERS Encounter Location Date Diagnosis [facility] [address] [facility] [id number], [place] [address] October, [facility] [address] [facility] [id number] [id number] Aug, [place] [address] [place] [id number] [place] [address] Jul, [place] [address] [address] Jun, Moderate persistent asthma with exacerbation J45.[address] [address] May, [place] [address] [address] Apr, Asthma exacerbation J45.[address] [address] 14 Apr, [address] [address] 07 Apr, 2017 Compression fracture of vertebra, initial encounter M48.50XA [address] [address] Apr, Urethral pain R39.89 ; Pain in thoracic spine M54.6 ; Other chronic pain G89.29 and Lumbar spine pain M54.[address] [address] Apr, [address] [address] Feb, Degenerative disc disease, 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 ; Allergic state , initial encounter T78.40XA and Encounter for immunization Z23 [address] [address] Jan, Hypertension I10 and Degenerative disc disease, 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 [address] Nov, Hypertension I10 ; GERD (gastroesophageal reflux disease) K21.9 ; Dysuria R30.0 and Arthritis M19.[address] [address] Sep, Medicare annual wellness visit, initial Z00.00 and Adenomatous polyp of colon, unspecified part of colon D12.6 [place] [address] [address] 30 Jun, 2016 Reactive depression F32.9 [place] [address] [address] 10 Jun, [address] [address] Jun, Asthma exacerbation J45.901 ; Degenerative disc disease, 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 and Anxiety F41.[address] [address] 28 Mar, 2016 Hypertension I10 ; Seborrheic keratoses L82.1 ; Urethral pain R39.89 and Encounter for immunization Z23 [facility] [address] [id number] 30 Feb, 2016 Dental examination Z01.[address] [address] 19 Feb, 2016 Hypertension I10 and Chronic post-traumatic headache, not intractable G44.329 [place] [address] [address] 14 Feb, 2016 [place] [address] [place] [id number] [place] [address] Jan, Chronic post-traumatic headache, not intractable G44.329 and Hypertension I10 [place] [address] [address] Jan, [address] [address] 24 Nov, 2015 Laceration of forehead, initial encounter S01.81XA [place] [address] [address] 10 Nov, 2015 Adjustment disorder with mixed anxiety and depressed mood F43.23 [place] [address] [place] [id number] [place] [address] Nov, Hypertension I10 ; Arthritis M19.90 and Irritable bowel syndrome with diarrhea K58.0 [place] [address] [place] [id number] [place] [address] Sep, [address] [address] Sep, [place] [address] [address] Sep, Arthritis M19.90 ; GERD (gastroesophageal reflux disease) K21.9 ; Hypertension I10 and Asthma J45.[address] [address] Sep, Anxiety F41.9 and Memory loss R41.[address] [address] Aug, Adjustment disorder with mixed anxiety and depressed mood F43.23 ; Generalized anxiety disorder F41.1 and Acute stress reaction F43.[address] [address] Aug, Anxiety F41.9 ; Atrial fibrillation, chronic I48.2 ; Falls W19.XXXA ; Fatigue R53.83 and Memory loss R41.[address] [place] [id number] [place] [address] Aug, Anxiety F41.9 [facility] [address] [place] [id number] [place] [address] Aug, Irregular heart rhythm I49.9 ; Anxiety F41.9 ; Shortness of breath R06.02 ; Fatigue R53.83 ; Falls W19.XXXA ; Pneumonia J18.9 and Atrial fibrillation, chronic I48.2 IMMUNIZATIONS No Known Immunizations SOCIAL HISTORY Never Assessed REASON FOR VISIT osteoporosis PLAN OF CARE VITAL SIGNS MEDICATIONS Unknown Medications RESULTS Name Result Date Reference Range DEXA Hip and Spine 2017-05-21 PROCEDURES No Known procedures INSTRUCTIONS MEDICATIONS ADMINISTERED No Known Medications MEDICAL (GENERAL) HISTORY Type Description Date Medical History asthma Medical History anxiety Medical History restrictive lung disease Medical History seasonal allergies Medical History hypertension Surgical History tonsillectomy Surgical History deviated septum repair Surgical History appendectomy Surgical History cholecystectomy Surgical History hysterectomy Surgical History Right arm broken set and pins Hospitalization History anxiety 2014 Hospitalization History [facility] for hypertension 02/24/16 Hospitalization History [facility] Unit 06/2016
--- OUTSIDE RECORDS SUMMARY | 2018-04-30 21:39 | XMS REPORT ---
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 Active 84895355 Problem Moderate persistent asthma with exacerbation J45.41 Active 206221828 Problem Anxiety F41.9 Active 43109305 Problem Compression fracture of vertebra, initial encounter M48.50XA Active 05374922 Problem Shortness of breath R06.02 Active 836203560 Problem Pain in thoracic spine M54.6 Active 333095416637535 Problem Adenomatous polyp of colon, unspecified part of colon D12.6 Active 867569073 Problem Lumbar spine pain M54.5 Active 259912434 Problem Other chronic pain G89.29 Active 70618520 Problem Memory loss R41.3 Active 14025622 Problem Arthritis M19.90 Active 5125351 Problem Fatigue R53.83 Active 80181669 Problem Pneumonia J18.9 Active 455092978 Problem Hypertension I10 Active 51351839 Problem Irritable bowel syndrome with diarrhea K58.0 Active 019504986 Problem GERD (gastroesophageal reflux disease) K21.9 Active 746914102 Problem Chronic post-traumatic headache, not intractable G44.329 Active 500452522 Problem Asthma J45.909 Active 587380260 Problem Seborrheic keratoses L82.1 Active 538849013 ALLERGIES No Information ENCOUNTERS Encounter Location Date Diagnosis [facility] [address] [facility] [id number], [place] [address] Dec, Hypertension I10 [facility] [address] [facility] [id number], [place] [address] October, [facility] [address] [id number] [id number] Aug, [place] [address] [address] [id number] [place] [address]306- 2403 Jul, [place] [address] [place] [id number] [place] [address] 19813- 5675 Jun, Moderate persistent asthma with exacerbation J45.41 [place] [address] [address]- 5655 May, [place] [address] [place] [id number] [place] [address] 70071- 1411 16 Apr, 2017 Asthma exacerbation J45.901 [place] [address] [id number] [place] [address] 85415- 6972 14 Apr, [address] [address]- 9670 07 Apr, 2017 Compression fracture of vertebra, initial encounter M48.50XA [place] [id number] [place] [address] 19188- 2744 06 Apr, 2017 Urethral pain R39.89 ; Pain in thoracic spine M54.6 ; Other chronic pain G89.29 and Lumbar spine pain M54.5 [place] [id number] [place] [address] 67267- 0150 Apr, [place] [id number] [place] [address] 81280- 5372 Feb, Degenerative disc disease, 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 ; Allergic state , initial encounter T78.40XA and Encounter for immunization Z23 [address] 15[address]- [address]753 Jan, Hypertension I10 and Degenerative disc disease, 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 [place] [address] [address] [id number] [place] [address] 27844- 1833 Nov, Hypertension I10 ; GERD (gastroesophageal reflux disease) K21.9 ; Dysuria R30.0 and Arthritis M19.90 [place] [id number] [place] [address] 93946- 7450 Sep, Medicare annual wellness visit, initial Z00.00 and Adenomatous polyp of colon, unspecified part of colon D12.6 [place] [id number] [place] [address] 20752- 2361 30 Jun, 2016 Reactive depression F32.[address] 65310- 7484 10 Jun, [address] 06767- 6742 Jun, Asthma exacerbation J45.901 ; Degenerative disc disease, 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 and Anxiety F41.[address] 49396- 9089 28 Mar, 2016 Hypertension I10 ; Seborrheic keratoses L82.1 ; Urethral pain R39.89 and Encounter for immunization Z23 [facility] [address] [id number] 30 Feb, 2016 Dental examination Z01.[address] 97368- 5367 19 Feb, 2016 Hypertension I10 and Chronic post-traumatic headache, not intractable G44.329 [place] [id number] [place] [address] 08209- 1631 14 Feb, 2016 [place] [address] [address] [id number] [place] [address] 20567- 1491 Jan, Chronic post-traumatic headache, not intractable G44.329 and Hypertension I10 [address] 51877- 4210 Jan, [place] [id number] [place] [address] 06221- 6712 Nov, Laceration of forehead, initial encounter S01.81XA [place] [id number] [place] [address] 35890- 8664 10 Nov, 2015 Adjustment disorder with mixed anxiety and depressed mood F43.[address] 61389- 0310 06 Nov, 2015 Hypertension I10 ; Arthritis M19.90 and Irritable bowel syndrome with diarrhea K58.[address] 80043- 4400 Sep, [place] [address] 08283- 5298 Sep, [address] 79041- 8483 Sep, Arthritis M19.90 ; GERD (gastroesophageal reflux disease) K21.9 ; Hypertension I10 and Asthma J45.[address] 10025- 2411 Sep, Anxiety F41.9 and Memory loss R41.3 [place] [id number] [place] [address] 26423- 2934 14 Aug, 2015 Adjustment disorder with mixed anxiety and depressed mood F43.23 ; Generalized anxiety disorder F41.1 and Acute stress reaction F43.0 [place] [id number] [place] [address] 81702- 9584 Aug, Anxiety F41.9 ; Atrial fibrillation, chronic I48.2 ; Falls W19.XXXA ; Fatigue R53.83 and Memory loss R41.3 [place] [id number] [place] [address] 35642- 8690 Aug, Anxiety F41.9 [facility] [place] [id number] [place] [address] 61881 -7759 Aug, Irregular heart rhythm I49.9 ; Anxiety F41.9 ; Shortness of breath R06.02 ; Fatigue R53.83 ; Falls W19.XXXA ; Pneumonia J18.9 and Atrial fibrillation, chronic I48.2 IMMUNIZATIONS No Known Immunizations SOCIAL HISTORY Never Assessed REASON FOR VISIT PLAN OF CARE VITAL SIGNS MEDICATIONS Medication Instructions Dosage Frequency Start Date End Date Duration Status Amlodipine Besylate 5 mg Orally Once a day 1 tablet 24h Active Lisinopril 20 mg Orally BID 1 tablet 12h Active Montelukast Sodium 10 MG Orally Once a day 1 tablet in the evening 24h Active RESULTS No Results PROCEDURES No Known procedures INSTRUCTIONS MEDICATIONS ADMINISTERED [...] pins Hospitalization History anxiety 2014 Hospitalization History ER for hypertension 02/24/16 Hospitalization History [facility] Unit 06/2016
--- OUTSIDE RECORDS SUMMARY | 2018-04-30 21:39 | XMS REPORT ---
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 Active 55354830 Problem Moderate persistent asthma with exacerbation J45.41 Active 409576091 Problem Anxiety F41.9 Active 51846894 Problem Compression fracture of vertebra, initial encounter M48.50XA Active 86475522 Problem Shortness of breath R06.02 Active 546077610 Problem Pain in thoracic spine M54.6 Active 982483487455539 Problem Adenomatous polyp of colon, unspecified part of colon D12.6 Active 200907707 Problem Lumbar spine pain M54.5 Active 467701969 Problem Other chronic pain G89.29 Active 46437393 Problem Memory loss R41.3 Active 39474228 Problem Arthritis M19.90 Active 5625722 Problem Fatigue R53.83 Active 34763417 Problem Pneumonia J18.9 Active 130904780 Problem Hypertension I10 Active 27886299 Problem Irritable bowel syndrome with diarrhea K58.0 Active 479377540 Problem GERD (gastroesophageal reflux disease) K21.9 Active 357058179 Problem Chronic post-traumatic headache, not intractable G44.329 Active 747432547 Problem Asthma J45.909 Active 622913256 Problem Seborrheic keratoses L82.1 Active 447859890 ALLERGIES No Information ENCOUNTERS Encounter Location Date Diagnosis [facility] [address] [facility] [id number] [address] October, [facility] [address] [facility] [id number] [id number] Aug, [place] [address] [id number] [place] [address]3437- [address]194 Jul, [place] [address] 85463- 4993 Jun, Moderate persistent asthma with exacerbation J45.[address] [address]331- [address] May, [place] [address] 49406- 4518 Apr, Asthma exacerbation J45.[address] 97421- 4957 14 Apr, [address] 63936- 4313 07 Apr, 2017 Compression fracture of vertebra, initial encounter M48.50XA [address] 57251- 1031 Apr, Urethral pain R39.89 ; Pain in thoracic spine M54.6 ; Other chronic pain G89.29 and Lumbar spine pain M54.[address] 97211- 7908 Apr, [address] 64984- 6850 Feb, Degenerative disc disease, 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 ; Allergic state , initial encounter T78.40XA and Encounter for immunization Z23 [address] 06609- 9557 Jan, Hypertension I10 and Degenerative disc disease, 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 15842- 0498 Nov, Hypertension I10 ; GERD (gastroesophageal reflux disease) K21.9 ; Dysuria R30.0 and Arthritis M19.[address] 99854- 3088 Sep, Medicare annual wellness visit, initial Z00.00 and Adenomatous polyp of colon, unspecified part of colon D12.6 [place] [address] 66294- 8048 30 Jun, 2016 Reactive depression F32.9 [place] [address] 97769- 9998 10 Jun, [address] 24987- 0900 Jun, Asthma exacerbation J45.901 ; Degenerative disc disease, 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 and Anxiety F41.[address] 14002- 7095 28 Mar, 2016 Hypertension I10 ; Seborrheic keratoses L82.1 ; Urethral pain R39.89 and Encounter for immunization Z23 [facility] [address] [id number] 30 Feb, 2016 Dental examination Z01.[address] 66748- 5531 19 Feb, 2016 Hypertension I10 and Chronic post-traumatic headache, not intractable G44.329 [place] [address] 88134- 1775 14 Feb, 2016 [place] [address] [place] [address] [id number] [place] [address] 62950- 3964 Jan, Chronic post-traumatic headache, not intractable G44.329 and Hypertension I10 [place] [address] 07840- 0266 Jan, [address] 72003- 4521 24 Nov, 2015 Laceration of forehead, initial encounter S01.81XA [place] [address] 12155- 5760 10 Nov, 2015 Adjustment disorder with mixed anxiety and depressed mood F43.23 [place] [id number] [place] [address] 11798- 7723 Nov, Hypertension I10 ; Arthritis M19.90 and Irritable bowel syndrome with diarrhea K58.0 [place] [id number] [place] [address] 00550- 8991 Sep, [address] 18625- 1720 Sep, [address] 91764- 0825 Sep, Arthritis M19.90 ; GERD (gastroesophageal reflux disease) K21.9 ; Hypertension I10 and Asthma J45.[address] 97324- 5373 Sep, Anxiety F41.9 and Memory loss R41.[address] 54730- 8254 Aug, Adjustment disorder with mixed anxiety and depressed mood F43.23 ; Generalized anxiety disorder F41.1 and Acute stress reaction F43.[address] 96791- 2025 Aug, Anxiety F41.9 ; Atrial fibrillation, chronic I48.2 ; Falls W19.XXXA ; Fatigue R53.83 and Memory loss R41.3 [place] [id number] [place] [address] 44991- 7488 Aug, Anxiety F41.9 [facility] [address] [place] [id number] [place] [address] 13850 -5339 Aug, Irregular heart rhythm I49.9 ; Anxiety F41.9 ; Shortness of breath R06.02 ; Fatigue R53.83 ; Falls W19.XXXA ; Pneumonia J18.9 and Atrial fibrillation, chronic I48.2 IMMUNIZATIONS No Known Immunizations SOCIAL HISTORY Never Assessed REASON FOR VISIT dental appt PLAN OF CARE VITAL SIGNS MEDICATIONS Unknown [...] [facility] ER for hypertension 02/24/16 Hospitalization History [facility] Unit 06/2016
--- OUTSIDE RECORDS SUMMARY | 2018-04-30 21:39 | XMS REPORT ---
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 Active 21878903 Problem Moderate persistent asthma with exacerbation J45.41 Active 774363671 Problem Anxiety F41.9 Active 71379038 Problem Compression fracture of vertebra, initial encounter M48.50XA Active 62764717 Problem Shortness of breath R06.02 Active 965440376 Problem Pain in thoracic spine M54.6 Active 235317936893193 Problem Adenomatous polyp of colon, unspecified part of colon D12.6 Active 897497993 Problem Lumbar spine pain M54.5 Active 269441003 Problem Other chronic pain G89.29 Active 66142133 Problem Memory loss R41.3 Active 93821176 Problem Arthritis M19.90 Active 5354922 Problem Fatigue R53.83 Active 89181082 Problem Pneumonia J18.9 Active 693503634 Problem Hypertension I10 Active 50242155 Problem Irritable bowel syndrome with diarrhea K58.0 Active 480909218 Problem GERD (gastroesophageal reflux disease) K21.9 Active 177322324 Problem Chronic post-traumatic headache, not intractable G44.329 Active 858906759 Problem Asthma J45.909 Active 928186633 Problem Seborrheic keratoses L82.1 Active 594388392 ALLERGIES No Information ENCOUNTERS Encounter Location Date Diagnosis [facility] [address] [facility] [id number] [address] Dec, Hypertension I10 [facility] [address] [facility] [id number], [place] [address] October, [facility] [address] [id number] [id number] Aug, [place] [id number] [place] [address] 49868- 8633 Jul, [place] [address] [address] [id number] [place] [address] 57807- 6755 Jun, Moderate persistent asthma with exacerbation J45.41 [place] [address] 84890- 5380 May, [place] [address] [id number] [place] [address] 66969- 0480 16 Apr, 2017 Asthma exacerbation J45.901 [place] [address] [address] [id number] [place] [address] 99948- 7261 14 Apr, [address] 24000- 0333 07 Apr, 2017 Compression fracture of vertebra, initial encounter M48.50XA [place] [id number] [place] [address] 64135- 3150 06 Apr, 2017 Urethral pain R39.89 ; Pain in thoracic spine M54.6 ; Other chronic pain G89.29 and Lumbar spine pain M54.5 [place] [id number] [place] [address] 91592- 0782 Apr, [place] [id number] [place] [address] 53245- 7235 Feb, Degenerative disc disease, 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 ; Allergic state , initial encounter T78.40XA and Encounter for immunization Z23 [address] 98101- 4191 Jan, Hypertension I10 and Degenerative disc disease, 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 [place] [address] [address] [id number] [place] [address] 47506- 6562 Nov, Hypertension I10 ; GERD (gastroesophageal reflux disease) K21.9 ; Dysuria R30.0 and Arthritis M19.90 [place] [id number] [place] [address] 02724- 9832 Sep, Medicare annual wellness visit, initial Z00.00 and Adenomatous polyp of colon, unspecified part of colon D12.6 [place] [id number] [place] [address] 95941- 3278 30 Jun, 2016 Reactive depression F32.[address] 13285- 0351 10 Jun, [address] 39416- 6276 Jun, Asthma exacerbation J45.901 ; Degenerative disc disease, 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 and Anxiety F41.[address] 08743- 6820 28 Mar, 2016 Hypertension I10 ; Seborrheic keratoses L82.1 ; Urethral pain R39.89 and Encounter for immunization Z23 [facility] [address] [id number] 30 Feb, 2016 Dental examination Z01.[address] 59253- 2887 19 Feb, 2016 Hypertension I10 and Chronic post-traumatic headache, not intractable G44.329 [place] [id number] [place] [address] 17983- 1093 14 Feb, 2016 [place] [address] [address] [id number] [place] [address] 18914- 4910 Jan, Chronic post-traumatic headache, not intractable G44.329 and Hypertension I10 [address] 63685- 2346 Jan, [place] [id number] [place] [address] 99417- 4744 Nov, Laceration of forehead, initial encounter S01.81XA [place] [id number] [place] [address] 63913- 4967 10 Nov, 2015 Adjustment disorder with mixed anxiety and depressed mood F43.[address] 45749- 8150 06 Nov, 2015 Hypertension I10 ; Arthritis M19.90 and Irritable bowel syndrome with diarrhea K58.[address] 53062- 9957 Sep, [place] [address] 56912- 8134 Sep, [address] 43064- 9085 Sep, Arthritis M19.90 ; GERD (gastroesophageal reflux disease) K21.9 ; Hypertension I10 and Asthma J45.[address] 22002- 2169 Sep, Anxiety F41.9 and Memory loss R41.3 [place] [id number] [place] [address] 26545- 8767 14 Aug, 2015 Adjustment disorder with mixed anxiety and depressed mood F43.23 ; Generalized anxiety disorder F41.1 and Acute stress reaction F43.0 [place] [id number] [place] [address] 38850- 0536 Aug, Anxiety F41.9 ; Atrial fibrillation, chronic I48.2 ; Falls W19.XXXA ; Fatigue R53.83 and Memory loss R41.3 [place] [id number] [place] [address] 19496- 6915 Aug, Anxiety F41.9 [facility] [place] [id number] [place] [address] 73076 -4060 Aug, Irregular heart rhythm I49.9 ; Anxiety F41.9 ; Shortness of breath R06.02 ; Fatigue R53.83 ; Falls W19.XXXA ; Pneumonia J18.9 and Atrial fibrillation, chronic I48.2 IMMUNIZATIONS No Known Immunizations SOCIAL HISTORY Never Assessed REASON FOR VISIT Provider change PLAN OF CARE VITAL SIGNS MEDICATIONS Unknown [...] History ER for hypertension 02/24/16 Hospitalization History [facility] Unit 06/2016
--- OUTSIDE RECORDS SUMMARY | 2018-04-30 21:41 | XMS REPORT ---
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 Active 65986026 Problem Moderate persistent asthma with exacerbation J45.41 Active 821596638 Problem Anxiety F41.9 Active 10192766 Problem Compression fracture of vertebra, initial encounter M48.50XA Active 61450791 Problem Shortness of breath R06.02 Active 965560851 Problem Pain in thoracic spine M54.6 Active 467822472058946 Problem Adenomatous polyp of colon, unspecified part of colon D12.6 Active 231353505 Problem Lumbar spine pain M54.5 Active 063346454 Problem Other chronic pain G89.29 Active 73723306 Problem Memory loss R41.3 Active 47646830 Problem Arthritis M19.90 Active 9880491 Problem Fatigue R53.83 Active 26557293 Problem Pneumonia J18.9 Active 552227422 Problem Hypertension I10 Active 69723019 Problem Irritable bowel syndrome with diarrhea K58.0 Active 919643435 Problem GERD (gastroesophageal reflux disease) K21.9 Active 686682193 Problem Chronic post-traumatic headache, not intractable G44.329 Active 049298903 Problem Asthma J45.909 Active 074295551 Problem Seborrheic keratoses L82.1 Active 710796934 ALLERGIES Substance Reaction Event Type Date Status Tetracycline HCl Unknown Drug Allergy Feb, Active Penicillin G Potassium Unknown Drug Allergy Feb, Active Paxil Unknown Drug Allergy Feb, Active Morphine Sulfate Unknown Drug Allergy Feb, Active Ketorolac Tromethamine Unknown Drug Allergy Feb, Active ENCOUNTERS Encounter Location Date Diagnosis [facility] [id number] [id number] Aug, [place] [address] [id number] [place] [address] 45917- 2296 Jul, [place] [id number] [place] [address] 81066- 8555 Jun, Moderate persistent asthma with exacerbation J45.41 [place] [id number] [place] [address] 13037- 3049 May, [place] [id number] [place] [address] 93977- 8929 Apr, Asthma exacerbation J45.901 [place] [id number] [place] [address] 90751- 8492 Apr, [place] [id number] [place] [address] 80286- 1807 Apr, Compression fracture of vertebra, initial encounter M48.50XA [place] [address] [id number] [place] [address] 73558- 9433 Apr, Urethral pain R39.89 ; Pain in thoracic spine M54.6 ; Other chronic pain G89.29 and Lumbar spine pain M54.5 [address] [place] [address] 57363- 7607 Apr, [place] [id number] [place] [address] 36499- 8071 Feb, Degenerative disc disease, 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 ; Allergic state , initial encounter T78.40XA and Encounter for immunization Z23 [place] [id number] [place] [address] 46057- 7622 Jan, Hypertension I10 and Degenerative disc disease, 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 [place] [id number] [place] [address] 50045- 2398 Nov, Hypertension I10 ; GERD (gastroesophageal reflux disease) K21.9 ; Dysuria R30.0 and Arthritis M19.90 [place] [id number] [place] [address] 05950- 1924 18 Sep, 2016 Medicare annual wellness visit, initial Z00.00 and Adenomatous polyp of colon, unspecified part of colon D12.[address] 40890- 1135 30 Jun, 2016 Reactive depression F32.[address] 34016- 9086 10 Jun, [address] 38620- 3916 05 Jun, 2016 Asthma exacerbation J45.901 ; Degenerative disc disease, 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 and Anxiety F41.[address] 85924- 6079 28 Mar, 2016 Hypertension I10 ; Seborrheic keratoses L82.1 ; Urethral pain R39.89 and Encounter for immunization Z23 [facility] [address] [id number] 30 Feb, 2016 Dental examination Z01.[address] 12456- 0577 19 Feb, 2016 Hypertension I10 and Chronic post-traumatic headache, not intractable G44.[address] 72127- 4734 14 Feb, [address] 41466- 8856 Jan, Chronic post-traumatic headache, not intractable G44.329 and Hypertension I10 [address] 37374- 4108 Jan, [address] 58950- 3554 Nov, Laceration of forehead, initial encounter S01.81XA [address] 54361- 2197 10 Nov, 2015 Adjustment disorder with mixed anxiety and depressed mood F43.23 [place] [address] 55899- 9205 06 Nov, 2015 Hypertension I10 ; Arthritis M19.90 and Irritable bowel syndrome with diarrhea K58.0 [place] [address] 73794- 0295 Sep, [place] [address] 55937- 6115 Sep, [place] [address] 28088- 9785 Sep, Arthritis M19.90 ; GERD (gastroesophageal reflux disease) K21.9 ; Hypertension I10 and Asthma J45.909 [place] [id number] [place] [address] 89529- 7986 Sep, Anxiety F41.9 and Memory loss R41.3 [place] [address] 74008- 5108 14 Aug, 2015 Adjustment disorder with mixed anxiety and depressed mood F43.23 ; Generalized anxiety disorder F41.1 and Acute stress reaction F43.0 [place] [id number] [place] [address] 81438- 4549 Aug, Anxiety F41.9 ; Atrial fibrillation, chronic I48.2 ; Falls W19.XXXA ; Fatigue R53.83 and Memory loss R41.3 [place] [id number] [place] [address] 07093- 8797 Aug, Anxiety F41.9 [facility] [address] [place], [place] [id number] [place] [address] 53638 -4272 Aug, Irregular heart rhythm I49.9 ; Anxiety F41.9 ; Shortness of breath R06.02 ; Fatigue R53.83 ; Falls W19.XXXA ; Pneumonia J18.9 and Atrial fibrillation, chronic I48.2 IMMUNIZATIONS Vaccine Route Administration Date Status FLUARIX QUAD (3 AND UP) 2017 IM Intramuscular Feb 26, 2017 Administered PPSV23 (PNEUMOVAX) IM Intramuscular Feb 26, 2017 Administered SOCIAL HISTORY Never Assessed REASON FOR VISIT Blood pressure, PT has also been haing a cough with head congestion- Hayley NUÑEZ PLAN OF CARE Activity Details Follow Up 3 Months Reason: VITAL SIGNS Height 63 in 2017-02-26 Weight 207.6 lbs 2017-02-26 Temperature 98.0 degrees Fahrenheit 2017-02-26 Heart Rate 78 bpm 2017-02-26 Respiratory Rate 22 2017-02-26 Oximetry 98 % 2017-02-26 BMI 36.77 kg/m2 2017-02-26 Blood pressure systolic 102 mmHg 2017-02-26 Blood pressure diastolic 68 mmHg 2017-02-26 MEDICATIONS Medication Instructions Dosage Frequency Start Date End Date Duration Status Triamcinolone & Emollient 0.1 % Externally Twice a day 1 application 12h Active Lisinopril 20 mg Orally BID 1 tablet 12h Active Citalopram Hydrobromide 20 MG Orally Once a day 1 tablet 24h Active Hydrocodone-Acetaminophen 5-325 MG Orally every 6 hrs 1 tablet as needed 6h Active Lorazepam 1 MG Orally 2 times a day and PRN for anxiousness 1/2 tablet as needed Active Hydrochlorothiazide 25 MG Orally Once a day 1 tablet in the morning 24h Active Tramadol HCl 50 mg Orally 3 times a day 1 tablet as needed 8h Jan, Apr, 30 days Active Vagifem 10 MCG Vaginal Two times a Week 1 tablet Active Multivitamin Adults 50+ Active Calcium + D3 600.400 mg Active Tylenol 8 Hour 500 mg Orally every 4 hours as needed Active Estrace 0.1 MG/GM Active Cetirizine HCl 10 mg Orally Once a day 1 tablet 24h Feb, Jun, 30 day(s) Active PredniSONE 20 mg Orally Once a day 2 tablets 24h Feb, Feb, 05 days Active Rivastigmine Tartrate 1.5 MG Orally Twice a day 1 capsule with food 12h Active Pravastatin Sodium 40 MG Orally Once a day 1 tablet 24h Active Coricidin HBP Congestion/Cough 10-200 MG Orally every 4 hrs 1 capsule as needed 4h Active Questran 4 GM Orally Once a day 1 packet mixed with water or non-carbonated drink 24h Nov, Active Seroquel 100 MG Orally Once a day 1 tablet 24h Active Omeprazole 20 mg Orally Once a day 1 capsules 24h Active Amlodipine Besylate 5 mg Orally Once a day 1 tablet 24h Active Montelukast Sodium 10 MG Orally Once a day 1 tablet in the evening 24h Active RESULTS No Results PROCEDURES Procedure Date Ordered Result Body Site MEASURE BLOOD OXYGEN LEVEL Feb 26, 2017 [facility] VISIT ESTABLISHED PATIENT Feb 26, 2017 IMMUNIZATION ADMIN, EACH ADD (please include units) Feb 26, 2017 SINGLE IMMUNIZATION ADMIN Feb 26, 2017 PPSV23 (PNEUMOVAX) Feb 26, 2017 FLUARIX QUAD (3 & UP)-[id number]-2014Feb 26, 2017 ADMN PNEUMCOC VAC NO FEE SCHED DAY Feb 26, 2017 INSTRUCTIONS MEDICATIONS ADMINISTERED No Known Medications MEDICAL [...] History ER for hypertension 02/24/16 Hospitalization History [facility] Unit 06/2016
--- OUTSIDE RECORDS SUMMARY | 2018-04-30 21:41 | XMS REPORT ---
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 Active 68539928 Problem Moderate persistent asthma with exacerbation J45.41 Active 806333314 Problem Anxiety F41.9 Active 30347810 Problem Compression fracture of vertebra, initial encounter M48.50XA Active 37136899 Problem Shortness of breath R06.02 Active 965354835 Problem Pain in thoracic spine M54.6 Active 074276127201272 Problem Adenomatous polyp of colon, unspecified part of colon D12.6 Active 982172892 Problem Lumbar spine pain M54.5 Active 440066066 Problem Other chronic pain G89.29 Active 06853749 Problem Memory loss R41.3 Active 23728969 Problem Arthritis M19.90 Active 1199684 Problem Fatigue R53.83 Active 77645755 Problem Pneumonia J18.9 Active 877591643 Problem Hypertension I10 Active 77155493 Problem Irritable bowel syndrome with diarrhea K58.0 Active 679243181 Problem GERD (gastroesophageal reflux disease) K21.9 Active 974790281 Problem Chronic post-traumatic headache, not intractable G44.329 Active 543622907 Problem Asthma J45.909 Active 794654632 Problem Seborrheic keratoses L82.1 Active 022984539 ALLERGIES No Information ENCOUNTERS Encounter Location Date Diagnosis [facility] [address] [facility] [id number] [address] October, [facility] [address] [facility] [id number] [id number] Aug, [place] [id number] [place] [address] 99596- 2916 Jul, [place] [address] 39812- 1033 Jun, Moderate persistent asthma with exacerbation J45.[address] 94773- 9387 May, [place] [address] 96292- 3135 Apr, Asthma exacerbation J45.[address] 45556- 9505 14 Apr, [address] 21882- 6739 07 Apr, 2017 Compression fracture of vertebra, initial encounter M48.50XA [address] 36997- 4210 Apr, Urethral pain R39.89 ; Pain in thoracic spine M54.6 ; Other chronic pain G89.29 and Lumbar spine pain M54.[address] 99570- 4747 Apr, [address] 26036- 4030 Feb, Degenerative disc disease, 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 ; Allergic state , initial encounter T78.40XA and Encounter for immunization Z23 [address] 01971- 3655 Jan, Hypertension I10 and Degenerative disc disease, 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 75987- 8472 Nov, Hypertension I10 ; GERD (gastroesophageal reflux disease) K21.9 ; Dysuria R30.0 and Arthritis M19.[address] 94603- 9466 Sep, Medicare annual wellness visit, initial Z00.00 and Adenomatous polyp of colon, unspecified part of colon D12.6 [place] [address] 38866- 6253 30 Jun, 2016 Reactive depression F32.9 [place] [address] 26000- 9996 10 Jun, [address] 84642- 3511 Jun, Asthma exacerbation J45.901 ; Degenerative disc disease, 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 and Anxiety F41.[address] 86937- 7595 28 Mar, 2016 Hypertension I10 ; Seborrheic keratoses L82.1 ; Urethral pain R39.89 and Encounter for immunization Z23 [facility] [address] [id number] 30 Feb, 2016 Dental examination Z01.[address] 36378- 9911 19 Feb, 2016 Hypertension I10 and Chronic post-traumatic headache, not intractable G44.329 [address] [address] 57656- 4827 14 Feb, 2016 [place] [id number] [place] [address] 60186- 9689 Jan, Chronic post-traumatic headache, not intractable G44.329 and Hypertension I10 [place] [address] 02104- 8101 Jan, [address] 23771- 5685 24 Nov, 2015 Laceration of forehead, initial encounter S01.81XA [place] [address] 26325- 7993 10 Nov, 2015 Adjustment disorder with mixed anxiety and depressed mood F43.23 [place] [id number] [place] [address] 97172- 9285 Nov, Hypertension I10 ; Arthritis M19.90 and Irritable bowel syndrome with diarrhea K58.0 [address] [id number] [place] [address] 98596- 1933 Sep, [address] 71111- 3544 Sep, [address] 43553- 8843 Sep, Arthritis M19.90 ; GERD (gastroesophageal reflux disease) K21.9 ; Hypertension I10 and Asthma J45.[address] 47752- 8312 Sep, Anxiety F41.9 and Memory loss R41.[address] 30902- 9737 Aug, Adjustment disorder with mixed anxiety and depressed mood F43.23 ; Generalized anxiety disorder F41.1 and Acute stress reaction F43.[address] 96040- 4848 Aug, Anxiety F41.9 ; Atrial fibrillation, chronic I48.2 ; Falls W19.XXXA ; Fatigue R53.83 and Memory loss R41.3 [address] [id number] [place] [address] 65870- 2885 Aug, Anxiety F41.9 [facility] [address] [place] [id number] [place] [address] 56021 -9596 Aug, Irregular heart rhythm I49.9 ; Anxiety F41.9 ; Shortness of breath R06.02 ; Fatigue R53.83 ; Falls W19.XXXA ; Pneumonia J18.9 and Atrial fibrillation, chronic I48.2 IMMUNIZATIONS No Known Immunizations SOCIAL HISTORY Never Assessed REASON FOR VISIT Other PLAN OF CARE VITAL SIGNS MEDICATIONS Medication Instructions Dosage Frequency Start Date End Date Duration Status Calcium + D3 600.400 mg Orally Once a day 1 tablet with a meal 24h Aug, 30 days Active Boniva 150 MG 1 tablet every 3 months May, Sep, 30 day(s) Active RESULTS No Results PROCEDURES No Known [...] ER for hypertension 02/24/16 Hospitalization History [facility] Unit 06/2016
--- OUTSIDE RECORDS SUMMARY | 2018-04-30 21:41 | XMS REPORT ---
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 Active 97826175 Problem Moderate persistent asthma with exacerbation J45.41 Active 329370692 Problem Anxiety F41.9 Active 16479664 Problem Compression fracture of vertebra, initial encounter M48.50XA Active 04937275 Problem Shortness of breath R06.02 Active 605516756 Problem Pain in thoracic spine M54.6 Active 897028497011314 Problem Adenomatous polyp of colon, unspecified part of colon D12.6 Active 185758300 Problem Lumbar spine pain M54.5 Active 991462037 Problem Other chronic pain G89.29 Active 01447723 Problem Memory loss R41.3 Active 76438212 Problem Arthritis M19.90 Active 3410465 Problem Fatigue R53.83 Active 57688675 Problem Pneumonia J18.9 Active 951627925 Problem Hypertension I10 Active 68988007 Problem Irritable bowel syndrome with diarrhea K58.0 Active 673495996 Problem GERD (gastroesophageal reflux disease) K21.9 Active 418645536 Problem Chronic post-traumatic headache, not intractable G44.329 Active 487094889 Problem Asthma J45.909 Active 917919593 Problem Seborrheic keratoses L82.1 Active 093485093 ALLERGIES Substance Reaction Event Type Date Status Tetracycline HCl Unknown Drug Allergy Apr, Active Penicillin G Potassium Unknown Drug Allergy Apr, Active Paxil Unknown Drug Allergy Apr, Active Morphine Sulfate Unknown Drug Allergy Apr, Active Ketorolac Tromethamine Unknown Drug Allergy Apr, Active ENCOUNTERS Encounter Location Date Diagnosis [facility] [id number] [place] [address]22- 6648 October, [facility] [address] [place] [id number] Aug, [facility] [id number] [place] [address] 84010- 4300 Jul, [place] [address] 93788- 9279 Jun, Moderate persistent asthma with exacerbation J45.41 [place] [address] 81096- 4330 May, [place] [address] 27497- 0510 16 Apr, 2017 Asthma exacerbation J45.901 [place] [address] 58830- 1646 14 Apr, 2017 [place] [id number] [place] [address] 32520- 1294 07 Apr, 2017 Compression fracture of vertebra, initial encounter M48.50XA [address] 76302- 8627 06 Apr, 2017 Urethral pain R39.89 ; Pain in thoracic spine M54.6 ; Other chronic pain G89.29 and Lumbar spine pain M54.5 [id number] [place] [address] 36990- 1139 Apr, [place] [address] 47699- 9293 Feb, Degenerative disc disease, 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 ; Allergic state , initial encounter T78.40XA and Encounter for immunization Z23 [place] [id number] [place] [address] 03727- 1067 Jan, Hypertension I10 and Degenerative disc disease, 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 [place] [id number] [place] [address] 19889- 6646 Nov, Hypertension I10 ; GERD (gastroesophageal reflux disease) K21.9 ; Dysuria R30.0 and Arthritis M19.[address] 53725- 0142 Sep, Medicare annual wellness visit, initial Z00.00 and Adenomatous polyp of colon, unspecified part of colon D12.[address] 06306- 9867 Jun, Reactive depression F32.[address] 75961- 1569 Jun, [address] 24322- 4890 Jun, Asthma exacerbation J45.901 ; Degenerative disc disease, 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 [address] [id number] 30 Feb, 2016 Dental examination Z01.[address] 14753- 5433 19 Feb, 2016 Hypertension I10 and Chronic post-traumatic headache, not intractable G44.329 [place] [address] 18637- 6443 Feb, [address] 38196- 6335 Jan, Chronic post-traumatic headache, not intractable G44.329 and Hypertension I10 [place] [address] 07043- 1937 Jan, [address] 12007- 7436 Nov, Laceration of forehead, initial encounter S01.81XA [id number] [place] [address] 98212- 8608 10 Nov, 2015 Adjustment disorder with mixed anxiety and depressed mood F43.[address] 25141- 7694 06 Nov, 2015 Hypertension I10 ; Arthritis M19.90 and Irritable bowel syndrome with diarrhea K58.[address] 84832- 5424 Sep, [address] 54392- 4936 Sep, [address] 47743- 1043 Sep, Arthritis M19.90 ; GERD (gastroesophageal reflux disease) K21.9 ; Hypertension I10 and Asthma J45.909 [id number] [place] [address] 26262- 6300 Sep, Anxiety F41.9 and Memory loss R41.[address] 35968- 5655 14 Aug, 2015 Adjustment disorder with mixed anxiety and depressed mood F43.23 ; Generalized anxiety disorder F41.1 and Acute stress reaction F43.[address] 51290- 8613 Aug, Anxiety F41.9 ; Atrial fibrillation, chronic I48.2 ; Falls W19.XXXA ; Fatigue R53.83 and Memory loss R41.3 [id number] [place] [address] 66353- 5033 Aug, Anxiety F41.9 [facility] [address] [place] [id number] [place] [address] 95690 -6585 Aug, Irregular heart rhythm I49.9 ; Anxiety F41.9 ; Shortness of breath R06.02 ; Fatigue R53.83 ; Falls W19.XXXA ; Pneumonia J18.9 and Atrial fibrillation, chronic I48.2 IMMUNIZATIONS No Known Immunizations SOCIAL HISTORY Never Assessed REASON FOR VISIT Cold symptoms for three weeks-Paul Marshall MA PLAN OF CARE Activity Details Follow Up reg appt Reason: VITAL SIGNS Height 63 in 2017-04-23 Weight 204.6 lbs 2017-04-23 Temperature 98.3 degrees Fahrenheit 2017-04-23 Heart Rate 68 bpm 2017-04-23 Respiratory Rate 24 2017-04-23 BMI 36.24 kg/m2 2017-04-23 Blood pressure systolic 122 mmHg 2017-04-23 Blood pressure diastolic 78 mmHg 2017-04-23 MEDICATIONS Medication Instructions Dosage Frequency Start Date End Date Duration Status Lisinopril 20 mg Orally BID 1 tablet 12h Active Seroquel 100 MG Orally Once a day 1 tablet 24h Active PredniSONE 20 mg Orally Once a day 2 tabs 4 days, 1 tab 4 days 24h Apr, Apr, 8 days Active Amlodipine Besylate 5 mg Orally Once a day 1 tablet 24h Active Multivitamin Adults 50+ Active Rivastigmine Tartrate 1.5 MG Orally Twice a day 1 capsule with food 12h Active Questran 4 GM Orally Once a day 1 packet mixed with water or non-carbonated drink 24h Nov, Active Montelukast Sodium 10 MG Orally Once a day 1 tablet in the evening 24h Active Triamcinolone & Emollient 0.1 % Externally Twice a day 1 application 12h Active Citalopram Hydrobromide 20 MG Orally Once a day 1 tablet 24h Active Zithromax Z-Dalton 250 MG Orally Once a day 2 tablets on the first day, then 1 tablet daily for 4 days 24h Apr, Apr, 5 day(s) Active Lorazepam 1 MG Orally 2 times a day and PRN for anxiousness 1/2 tablet as needed Active Hydrochlorothiazide 25 MG Orally Once a day 1 tablet in the morning 24h Active Estrace 0.1 MG/GM Active Pravastatin Sodium 40 MG Orally Once a day 1 tablet 24h Active Cetirizine HCl 10 mg Orally Once a day 1 tablet 24h Feb, Jun, 30 day(s) Active Vagifem 10 MCG Vaginal Two times a Week 1 tablet Active Omeprazole 20 mg Orally Once a day 1 capsules 24h Active Coricidin HBP Congestion/Cough 10-200 MG Orally every 4 hrs 1 capsule as needed 4h Active Tylenol 8 Hour 500 mg Orally every 4 hours as needed Active Calcium + D3 600.400 mg Active Hydrocodone-Acetaminophen 5-325 MG Orally every 6 hrs 1 tablet as needed 6h Active RESULTS No Results PROCEDURES Procedure Date Ordered Result Body Site [facility] VISIT ESTABLISHED PATIENT Apr 23, 2017 INSTRUCTIONS MEDICATIONS ADMINISTERED No Known Medications [...] History ER for hypertension 02/24/16 Hospitalization History [facility] Unit 06/2016
--- OUTSIDE RECORDS SUMMARY | 2018-04-30 21:42 | XMS REPORT ---
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 Active 28849312 Problem Moderate persistent asthma with exacerbation J45.41 Active 933059539 Problem Anxiety F41.9 Active 28374701 Problem Compression fracture of vertebra, initial encounter M48.50XA Active 60318888 Problem Shortness of breath R06.02 Active 917804264 Problem Pain in thoracic spine M54.6 Active 300155910697801 Problem Adenomatous polyp of colon, unspecified part of colon D12.6 Active 047762550 Problem Lumbar spine pain M54.5 Active 955382644 Problem Other chronic pain G89.29 Active 74643822 Problem Memory loss R41.3 Active 10053543 Problem Arthritis M19.90 Active 7569931 Problem Fatigue R53.83 Active 95053546 Problem Pneumonia J18.9 Active 720608303 Problem Hypertension I10 Active 28702950 Problem Irritable bowel syndrome with diarrhea K58.0 Active 823448907 Problem GERD (gastroesophageal reflux disease) K21.9 Active 146631382 Problem Chronic post-traumatic headache, not intractable G44.329 Active 625050008 Problem Asthma J45.909 Active 909924904 Problem Seborrheic keratoses L82.1 Active 082974933 ALLERGIES Substance Reaction Event Type Date Status Tetracycline HCl Unknown Drug Allergy Jun, Active Penicillin G Potassium Unknown Drug Allergy Jun, Active Paxil Unknown Drug Allergy Jun, Active Morphine Sulfate Unknown Drug Allergy Jun, Active Ketorolac Tromethamine Unknown Drug Allergy Jun, Active ENCOUNTERS Encounter Location Date Diagnosis [facility] [id number] [place] [address] October, [facility] [address] [place] [id number] Aug, [facility] [id number] [place] [address] Jul, [place] [address] [address] Jun, Moderate persistent asthma with exacerbation J45.41 [place] [address] [address] May, [place] [address] [address] 16 Apr, 2017 Asthma exacerbation J45.901 [place] [address] [address] 14 Apr, 2017 [place] [id number] [place] [address]- [address] 07 Apr, 2017 Compression fracture of vertebra, initial encounter M48.50XA [address] [address] 06 Apr, 2017 Urethral pain R39.89 ; Pain in thoracic spine M54.6 ; Other chronic pain G89.29 and Lumbar spine pain M54.5 [place] [id number] [place] [address]- [address] Apr, [place] [address] [address] Feb, Degenerative disc disease, 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 ; Allergic state , initial encounter T78.40XA and Encounter for immunization Z23 [place] [id number] [place] [address]- 360[address] Jan, Hypertension I10 and Degenerative disc disease, 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 [place] [id number] [place] [address]- 36[address] Nov, Hypertension I10 ; GERD (gastroesophageal reflux disease) K21.9 ; Dysuria R30.0 and Arthritis M19.[address] [address]67 Sep, Medicare annual wellness visit, initial Z00.00 and Adenomatous polyp of colon, unspecified part of colon D12.[address] [address]- [address] Jun, Reactive depression F32.[address] [address]- [address] Jun, [address] [address] Jun, Asthma exacerbation J45.901 ; Degenerative disc disease, 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 and Anxiety F41.[address] [address]- [address] Mar, Hypertension I10 ; Seborrheic keratoses L82.1 ; Urethral pain R39.89 and Encounter for immunization Z23 [facility] [address] [id number] 30 Feb, 2016 Dental examination Z01.[address] [address] 19 Feb, 2016 Hypertension I10 and Chronic post-traumatic headache, not intractable G44.329 [place] [address] [address]- [address] Feb, [address] [address] Jan, Chronic post-traumatic headache, not intractable G44.329 and Hypertension I10 [place] [address] [address]- [address] Jan, [address] [address] Nov, Laceration of forehead, initial encounter S01.81XA [place] [id number] [place] [address]- [address] 10 Nov, 2015 Adjustment disorder with mixed anxiety and depressed mood F43.[address] [address]- [address] 06 Nov, 2015 Hypertension I10 ; Arthritis M19.90 and Irritable bowel syndrome with diarrhea K58.[address] [address]- [address] Sep, [address] [address]- 59[address] Sep, [address] 72218- [address] Sep, Arthritis M19.90 ; GERD (gastroesophageal reflux disease) K21.9 ; Hypertension I10 and Asthma J45.909 [place] [id number] [place] [address]- 47[address] Sep, Anxiety F41.9 and Memory loss R41.[address] [address]- [address] 14 Aug, 2015 Adjustment disorder with mixed anxiety and depressed mood F43.23 ; Generalized anxiety disorder F41.1 and Acute stress reaction F43.[address] [address] Aug, Anxiety F41.9 ; Atrial fibrillation, chronic I48.2 ; Falls W19.XXXA ; Fatigue R53.83 and Memory loss R41.3 [place] [id number] [place] [address]- [address] Aug, Anxiety F41.9 [facility] [address] [place] [id number] [place] [address]67 -[address]647 Aug, Irregular heart rhythm I49.9 ; Anxiety F41.9 ; Shortness of breath R06.02 ; Fatigue R53.83 ; Falls W19.XXXA ; Pneumonia J18.9 and Atrial fibrillation, chronic I48.2 IMMUNIZATIONS No Known Immunizations SOCIAL HISTORY Never Assessed REASON FOR VISIT Roby KITCHEN f/u- Has had a cough for severl months- Alvina Hernadez RN, PHQ2, DAST PLAN OF CARE Activity Details Follow Up prn Reason: VITAL SIGNS Height 63 in 2017-07-02 Weight 207 lbs 2017-07-02 Temperature 98.0 degrees Fahrenheit 2017-07-02 Heart Rate 76 bpm 2017-07-02 Respiratory Rate 22 2017-07-02 BMI 36.66 kg/m2 2017-07-02 Blood pressure systolic 122 mmHg 2017-07-02 Blood pressure diastolic 74 mmHg 2017-07-02 MEDICATIONS Medication Instructions Dosage Frequency Start Date End Date Duration Status PredniSONE 20 mg Orally Once a day 2 tabs 6 days, 1 tab 6 days 24h Jun, Jul, 12 days Active Pravastatin Sodium 40 MG Orally Once a day 1 tablet 24h Active Triamcinolone & Emollient 0.1 % Externally Twice a day 1 application 12h Active Amlodipine Besylate 5 mg Orally Once a day 1 tablet 24h Active Omeprazole 20 mg Orally Once a day 1 capsules 24h Active Zithromax Z-Dalton 250 MG Orally Once a day 2 tablets on the first day, then 1 tablet daily for 4 days 24h Jun, Jun, 5 day(s) Active Vagifem 10 MCG Vaginal Two times a Week 1 tablet Unknown Seroquel 100 MG Orally Once a day 1 tablet 24h Active Multivitamin Adults 50+ Active Boniva 150 MG 1 tablet every 3 months May, Sep, 30 day(s) Active Tylenol 8 Hour 500 mg Orally every 4 hours as needed Active Valsartan-Hydrochlorothiazide Active Rivastigmine Tartrate 1.5 MG Orally Twice a day 1 capsule with food 12h Active Hydrochlorothiazide 25 MG Orally Once a day 1 tablet in the morning 24h Active Hydrocodone-Acetaminophen 5-325 MG Orally every 6 hrs 1 tablet as needed 6h Active Questran 4 GM Orally Once a day 1 packet mixed with water or non-carbonated drink 24h Nov, Active MiraLax - Orally Once a day 1 packet mixed with 8 ounces of fluid 24h Active Estrace 0.1 MG/GM Active Lorazepam 1 MG Orally 2 times a day and PRN for anxiousness 1/2 tablet as needed Active Calcium + D3 600.400 mg Orally Once a day 1 tablet with a meal 24h Aug, 30 days Active Montelukast Sodium 10 MG Orally Once a day 1 tablet in the evening 24h Active Lisinopril 20 mg Orally BID 1 tablet 12h Active Citalopram Hydrobromide 20 MG Orally Once a day 1 tablet 24h Active Folic Acid 1 MG Orally Once a day 1 tablet 24h Active RESULTS No Results PROCEDURES Procedure Date Ordered Result Body Site [facility] VISIT ESTABLISHED PATIENT Jul 02, 2017 INSTRUCTIONS MEDICATIONS ADMINISTERED No Known Medications [...] for hypertension 02/24/16 Hospitalization History [facility] Unit 06/2016
--- OUTSIDE RECORDS SUMMARY | 2018-04-30 21:42 | XMS REPORT ---
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 Active 37206057 Problem Moderate persistent asthma with exacerbation J45.41 Active 689800981 Problem Anxiety F41.9 Active 51191726 Problem Compression fracture of vertebra, initial encounter M48.50XA Active 72556160 Problem Shortness of breath R06.02 Active 867335272 Problem Pain in thoracic spine M54.6 Active 647090507316709 Problem Adenomatous polyp of colon, unspecified part of colon D12.6 Active 950085891 Problem Lumbar spine pain M54.5 Active 354976111 Problem Other chronic pain G89.29 Active 32972069 Problem Memory loss R41.3 Active 80352289 Problem Arthritis M19.90 Active 8422535 Problem Fatigue R53.83 Active 09801327 Problem Pneumonia J18.9 Active 117939561 Problem Hypertension I10 Active 39097510 Problem Irritable bowel syndrome with diarrhea K58.0 Active 741203259 Problem GERD (gastroesophageal reflux disease) K21.9 Active 811102896 Problem Chronic post-traumatic headache, not intractable G44.329 Active 839704033 Problem Asthma J45.909 Active 586208671 Problem Seborrheic keratoses L82.1 Active 194461359 ALLERGIES No Information ENCOUNTERS Encounter Location Date Diagnosis [facility] [address] [facility] [id number] [address] October, [facility] [address] [facility] [id number] [id number] Aug, [place] [id number] [place] [address] Jul, [place] [address] [address] Jun, Moderate persistent asthma with exacerbation J45.[address] [address]- [address] May, [place] [address] [address] Apr, Asthma exacerbation J45.[address] [address]- [address] 14 Apr, [address] [address]- [address] 07 Apr, 2017 Compression fracture of vertebra, initial encounter M48.50XA [address] 9[address]- [address] Apr, Urethral pain R39.89 ; Pain in thoracic spine M54.6 ; Other chronic pain G89.29 and Lumbar spine pain M54.[address] [address]- 5[address] Apr, [address] [address]- [address] Feb, Degenerative disc disease, 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 ; Allergic state , initial encounter T78.40XA and Encounter for immunization Z23 [address] [address]- [address] Jan, Hypertension I10 and Degenerative disc disease, 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 [address]- [address] Nov, Hypertension I10 ; GERD (gastroesophageal reflux disease) K21.9 ; Dysuria R30.0 and Arthritis M19.[address] 81400- [address] Sep, Medicare annual wellness visit, initial Z00.00 and Adenomatous polyp of colon, unspecified part of colon D12.6 [place] [address] [address]- [address] 30 Jun, 2016 Reactive depression F32.9 [place] [address] 9[address]90- 0446 10 Jun, [address] [address]- [address] Jun, Asthma exacerbation J45.901 ; Degenerative disc disease, 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 and Anxiety F41.[address] [address]81- 379[address] 28 Mar, 2016 Hypertension I10 ; Seborrheic keratoses L82.1 ; Urethral pain R39.89 and Encounter for immunization Z23 [facility] [address] [id number] 30 Feb, 2016 Dental examination Z01.[address] [address]- [address] 19 Feb, 2016 Hypertension I10 and Chronic post-traumatic headache, not intractable G44.329 [place] [address] [address]- [address] 14 Feb, 2016 [place] [id number] [place] [address]26- 14[address] Jan, Chronic post-traumatic headache, not intractable G44.329 and Hypertension I10 [place] [address] [address]- 5876 Jan, [address] [address]- [address] 24 Nov, 2015 Laceration of forehead, initial encounter S01.81XA [place] [address] 848[address]- [address] 10 Nov, 2015 Adjustment disorder with mixed anxiety and depressed mood F43.23 [place] [address] [place] [address]06- [address] Nov, Hypertension I10 ; Arthritis M19.90 and Irritable bowel syndrome with diarrhea K58.0 [place] [id number] [place] [address] 09656- 0011 Sep, [address] [address]36- 9703 Sep, [address] [address]- [address] Sep, Arthritis M19.90 ; GERD (gastroesophageal reflux disease) K21.9 ; Hypertension I10 and Asthma J45.[address] [address]- [address] Sep, Anxiety F41.9 and Memory loss R41.[address] 17[address]- [address] Aug, Adjustment disorder with mixed anxiety and depressed mood F43.23 ; Generalized anxiety disorder F41.1 and Acute stress reaction F43.[address] [address]- [address] Aug, Anxiety F41.9 ; Atrial fibrillation, chronic I48.2 ; Falls W19.XXXA ; Fatigue R53.83 and Memory loss R41.3 [place] [id number] [place] [address]- 17[address] Aug, Anxiety F41.9 [facility] [address] [place], [place] [id number] [place] [address] -[address]65 Aug, Irregular heart rhythm I49.9 ; Anxiety F41.9 ; Shortness of breath R06.02 ; Fatigue R53.83 ; Falls W19.XXXA ; Pneumonia J18.9 and Atrial fibrillation, chronic I48.2 IMMUNIZATIONS No Known Immunizations SOCIAL HISTORY Never Assessed REASON FOR VISIT Hydrocodone PLAN OF CARE VITAL SIGNS MEDICATIONS Medication Instructions Dosage Frequency Start Date End Date Duration Status Hydrocodone-Acetaminophen 5-325 MG Orally every 6 hrs 1 tablet as needed 6h Active RESULTS No Results PROCEDURES No Known [...] History ER for hypertension 02/24/16 Hospitalization History [facility] Unit 06/2016
[2018-04-30] MEDS ORDERED: fentaNYL INJECTION 100 MCG/2 ML AMP IVP PRN ×2 (21:45→22:30)
--- NOTE | 2018-04-30 21:46 | ED Back Pain ---
General Chief Complaint: Back Problems Stated Complaint: BACK PAIN Nursing Triage Note: UPPER BACK PAIN, NO INJURY Nursing Sepsis Screen: No Definite Risk Source of Information: EMS Exam Limitations: No Limitations History of Present Illness Date Seen by Provider: Apr 30, 2018 Time Seen by Provider: 21:43 Initial Comments To ER per EMS from [facility] with reports of sudden onset right-sided thoracic back pain. This began about 2-3 hours ago at random she was at rest. She does wear oxygen at 3 L per nasal cannula at the snf. She was recently admitted to the hospital on 04/26/18 and discharged on 04/28/18 for diagnosis of bilateral pulmonary embolisms. She follows with Dr. 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 During her routine office visit she was noted to be dyspneic with conversation with CT angiogram was ordered and pulmonary emboli were found. She was discharged home on several toe and she continues on this. She does have a history of fairly significant dementia, COPD as mentioned, anxiety. Location: Other (thoracic right-sided back pain) Timing/Duration: 1-3 Hours Severity: Moderate Pain/Injury Location: Back Allergies and Home Medications Allergies Coded Allergies: Penicillins (Verified Allergy, Mild, 08/13/15) ketorolac (Verified Allergy, Mild, 08/13/15) morphine (Verified Allergy, Mild, 08/13/15) tetracycline (Verified Allergy, Mild, 08/13/15) paroxetine (Unverified Allergy, Unknown, 02/24/16) Home Medications Acetaminophen 500 Mg Tablet, 1,000 MG PO DAILY, (Reported) TAKES 2 (500 MG) TABLETS Acetaminophen 500 Mg Tablet, 1,000 MG PO BID PRN for PAIN-MILD, (Reported) Amlodipine Besylate 5 Mg Tablet, 5 MG PO HS, (Reported) Budesonide 3 Mg Capdr...er, 9 MG PO DAILY, (Reported) TAKES 3 (3MG) CAPSULES Calcium Carbonate/Vitamin D3 1 Each Tablet, 1 TAB PO DAILY, (Reported) Cholestyramine (with Sugar) 4 Gm Powd.pack, 4 GM PO DAILY PRN for LOOSE STOOLS, (Reported) Citalopram Hydrobromide 10 Mg Tablet, 30 MG PO HS, (Reported) TAKES 3 (10 MG) TABLETS Diphenhydramine HCl 25 Mg Capsule, 25 MG PO BID PRN for ITCHING, (Reported) Estradiol 42.5 Gm Cream.appl, VG HS, (Reported) APPLY PEA SIZED AMOUNT TO OUTER VAGINAL AREA AT BEDTIME Estradiol 10 Mcg Tablet, 10 MCG VG TuFr, (Reported) Fexofenadine HCl 180 Mg Tablet, 180 MG PO DAILY, (Reported) Fluticasone Propionate 16 Gm Argenta.susp, 1 SPRAY NS DAILY, (Reported) Folic Acid 1 Mg Tablet, 1 MG PO DAILY, (Reported) Hydrochlorothiazide 25 Mg Tablet, 25 MG PO DAILY, (Reported) Ibandronate Sodium 150 Mg Tablet, 150 MG PO EVERY 3 MONTHS, (Reported) DUE NEXT 05-29-18 Lisinopril 20 Mg Tablet, 20 MG PO BID, (Reported) Loperamide HCl 2 Mg Capsule, 2 MG PO Q8H PRN for LOOSE STOOLS, (Reported) Lorazepam 0.5 Mg Tablet, 0.5 MG PO BID, (Reported) Magnesium Oxide 400 Mg Tablet, 400 MG PO BID Prescribed by: MARTA BLAIR on 04/30/182255 Mometasone Furoate 220 Mcg Aer.pow.ba, 1 PUFF IH HS, (Reported) Montelukast Sodium 10 Mg Tablet, 10 MG PO HS, (Reported) Multivitamin 1 Each Tablet, 1 TAB PO DAILY, (Reported) Omeprazole 20 Mg Capsule.dr, 20 MG PO DAILY, (Reported) Polyethylene Glycol 3350 17 Gm Powd.pack, 8.5 GM PO DAILY PRN for CONSTIPATION- 2ND LINE, (Reported) Pravastatin Sodium 40 Mg Tablet, 40 MG PO HS, (Reported) Quetiapine Fumarate 100 Mg Tablet, 100 MG PO HS, (Reported) Rivaroxaban 15 Mg Tablet, 15 MG PO BID@07,17 BIN [id number] N [id number] Prescribed by: TRACEE WRIGHT on 04/28/18 0910 Rivaroxaban 20 Mg Tablet, 20 MG PO DAILY@1700 BIN [id number] N [id number] Prescribed by: TRACEE WRIGHT on 04/28/18 09 Rivastigmine Tartrate 3 Mg Capsule, 3 MG PO BID, (Reported) Tramadol HCl 50 Mg Tablet, 50 MG PO TID PRN for BACK PAIN, (Reported) Triamcinolone Acetonide 80 Gm Oint...g., TP HS, (Reported) APPLIES TO LABIA MAJORA / MAY MIX WITH ESTRACE CREAM Patient Home Medication List Home Medication List Reviewed: Yes Review of Systems Constitutional: see HPI, other (she is not really able to accurately contribute to review of systems given her dementia) Past Ftwcoun-[id number]-Hzuewi Hx Patient Social History Alcohol Use: Denies Use Number of Drinks Today: Alcohol Beverage of Choice: Wine Recreational Drug Use: No Smoking Status: Unknown if Ever Smoked 2nd Hand Smoke Exposure: No Recent Foreign Travel: No Contact w/Someone Who Travel: No Recent Infectious Disease Expo: No Recent Hopitalizations: Yes Immunizations Up To Date Tetanus Booster (TDap): Unknown Date of Pneumonia Vaccine: Feb 10, 2017 Date of Influenza Vaccine: Apr 06, 2018 Seasonal Allergies Seasonal Allergies: No Past Medical History Surgeries: Yes Abdominal, Appendectomy, Gallbladder, 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, Joint Replacement, Orthopedic, Pacemaker Respiratory: Yes (ALPHA 1 ANTITRIPSIN DEFICIENCY) Asthma, Pulmonary Embolism, COPD Currently Using CPAP: No Currently Using BIPAP: No Cardiac: Yes (PACEMAKER;"VASOVAGAL NERVE PROBLEMS" ) High Cholesterol, Hypertension Neurological: Yes Dementia : No 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 Disorders: No Female 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 Disorders: Denies, 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, 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 Sexually Transmitted Disease: No HIV/AIDS: No Genitourinary: Yes (INCONTINENCE) Gastrointestinal: Yes (BLEEDING ULCER X 3; PERFORATED ULCER 2006; 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) Gastrointestinal Bleed, Chronic Diarrhea, Polyps, Ulcer, Irritable Bowel Musculoskeletal: Yes (MOSTLY IN HANDS, KNEES, BACK; RIGHT SHOULDER REPLACEMENT) Degenerate Disk Disease, Arthritis, Chronic Back Pain, Fractures Endocrine: No HEENT: Yes Cataract Loss of Vision: Denies Hearing Impairment: Hard of Hearing Cancer: No Psychosocial: Yes Anxiety Integumentary: No Blood Disorders: No Family Medical History Blood clots (sister had a blood clot in the brain which caused her  in 2010) Physical Exam Vital Signs Vital Signs - First Documented 04/30/18 21:33 Temp 98.9 Pulse 76 Resp 20 B/P (MAP) 134/87 (103) Pulse Ox 95 O2 Delivery Nasal Cannula O2 Flow Rate 2.00 Capillary Refill : Less Than 3 Seconds Height, Weight, BMI Height: 5'3.00" Weight: 141lbs. 9.0oz. 64.419966lp; 25.1 BMI Method:Stated General Appearance: No Apparent Distress, WD/WN, Anxious, Other (no accessory muscle use, oxygen saturation 94-95% on her baseline 3 L of oxygen. Heart rate is 67 sinus, blood pressure 134/87. Respiratory rate is 20.) HEENT: PERRL/EOMI, TMs Normal Neck: Full Range of Motion, Normal Inspection Cardiovascular: Regular Rate, Rhythm, Normal Peripheral Pulses Respiratory: Normal Breath Sounds, No Accessory Muscle Use, No Respiratory Distress Extremity: Normal Capillary Refill, Normal Inspection Neurologic/Psychiatric: Alert, Disoriented Skin: Normal Color, Warm/Dry Progress/Results/Core Measures Results/Orders Lab Results Laboratory Tests Test 04/30/18 21:44 04/30/18 22:51 Range/Units White Blood Count 17.7 H 4.3-11.0 10^3/uL Red Blood Count 3.80 L 4.35-5.85 10^6/uL Hemoglobin 11.1 L 11.5-16.0 G/DL Hematocrit 33 L 35-52 % Mean Corpuscular Volume 88 80-99 FL Mean Corpuscular Hemoglobin 29 25-34 PG Mean Corpuscular Hemoglobin Concent 33 32-36 G/DL Red Cell Distribution Width 14.2 10.0-14.5 % Platelet Count 406 H 130-400 10^3/uL Mean Platelet Volume 8.7 7.4-10.4 FL Neutrophils (%) (Auto) 81 H 42-75 % Lymphocytes (%) (Auto) 13 12-44 % Monocytes (%) (Auto) 5 0-12 % Eosinophils (%) (Auto) 1 0-10 % Basophils (%) (Auto) 0 0-10 % Neutrophils # (Auto) 14.3 H 1.8-7.8 X 10^3 Lymphocytes # (Auto) 2.4 1.0-4.0 X 10^3 Monocytes # (Auto) 0.8 0.0-1.0 X 10^3 Eosinophils # (Auto) 0.2 0.0-0.3 10^3/uL Basophils # (Auto) 0.0 0.0-0.1 10^3/uL Neutrophils % (Manual) 79 % Lymphocytes % (Manual) 10 % Monocytes % (Manual) 4 % Eosinophils % (Manual) 2 % Basophils % (Manual) 0 % Metamyelocytes % 1 % Band Neutrophils 4 % Blood Morphology Comment NORMAL Sodium Level 129 L 135-145 MMOL/L Potassium Level 3.8 3.6-5.0 MMOL/L Chloride Level 93 L 98-107 MMOL/L Carbon Dioxide Level 23 21-32 MMOL/L Anion Gap 13 5-14 MMOL/L Blood Urea Nitrogen 21 H 7-18 MG/DL Creatinine 1.17 0.60-1.30 MG/DL Estimat Glomerular Filtration Rate 45 BUN/Creatinine Ratio 18 Glucose Level 141 H 70-105 MG/DL Calcium Level 9.3 8.5-10.1 MG/DL Corrected Calcium 9.6 8.5-10.1 MG/DL Magnesium Level 1.4 L 1.8-2.4 MG/DL Total Bilirubin 0.3 0.1-1.0 MG/DL Aspartate Amino Transf (AST/SGOT) 18 5-34 U/L Alanine Aminotransferase (ALT/SGPT) 15 0-55 U/L Alkaline Phosphatase 64 40-136 U/L Troponin I < 0.30 <0.30 NG/ML B-Type Natriuretic Peptide 51.3 <100.0 PG/ML Total Protein 6.5 6.4-8.2 GM/DL Albumin 3.6 3.2-4.5 GM/DL My Orders Orders - MARTA BLAIR CAREER DEVELOPMENT ENGINEER Cbc With Automated Diff (04/30/18 21:39) Comprehensive Metabolic Panel (04/30/18 21:39) Troponin I (04/30/18 21:39) Ekg Tracing (04/30/18 21:39) Chest 1 View, Ap/Pa Only (04/30/18 21:39) BNP (04/30/18 21:39) Iv Heplock-Insert (Order) (04/30/18 21:39) Fentanyl Injection (Sublimaze Injection (04/30/18 21:45) Manual Differential (04/30/18 21:44) Ns Iv 500 Ml (Sodium Chloride 0.9%) (04/30/18 22:30) Fentanyl Injection (Sublimaze Injection (04/30/18 22:30) Ua Culture If Indicated (04/30/18 22:25) Magnesium (04/30/18 22:38) Magnesium Oxide Tablet (Mag Ox Tablet) (04/30/18 23:00) Medications Given in ED Current Medications Medications Dose Ordered Sig/Lee Route Start Time Stop Time Status Last Admin Dose Admin Fentanyl Citrate 25 mcg ONCE PRN IVP 04/30/18 21:45 04/30/18 21:47 25 MCG Fentanyl Citrate 25 mcg ONCE PRN IVP 04/30/18 22:30 04/30/18 22:50 25 MCG Vital Signs/I&O 04/30/18 21:33 Temp 98.9 Pulse 76 Resp 20 B/P (MAP) 134/87 (103) Pulse Ox 95 O2 Delivery Nasal Cannula O2 Flow Rate 2.00 Blood Pressure Mean: 103 Departure Communication (Admissions) Patient does have a leukocytosis but historically she has always had a leukocytosis. She also has hyponatremia but this also appears to be chronic. 2248- I discussed the labs and the brief tachycardia with Dr. Wright and Dr. Lgoan. Both of whom agree the patient can be discharged back to snf on her current medication regimen. Her oxygen saturation remains 95-98% on her baseline 3 L, blood pressure remains 115 over 80s, she states that her pain is still there but presents I did order another 25 g of fentanyl and a 500 L bolus of normal saline as her GFR was a bit down from previous. Patient states "maybe I just got anxious". She did seem anxious but I also believe that she has some pleuritic type chest pain. Impression Primary Impression: Bilateral pulmonary embolism Additional Impression: Anxiety Disposition: 03 XFER SNF Condition: Improved Departure-Patient Inst. Decision time for Depature: 22:11 Referrals: BRAD HDEZ MD (PCP/Family) Primary Care Physician Patient Instructions: Chest Pain, Pulmonary Embolism (Blood Clot in the Lungs) Add. Discharge Instructions: 1. Follow-up with your doctor next week. Her white blood cells were elevated today but it looks like they have been elevated even back into 2016 when you're here so this is not a new finding but it does warrant follow-up and further evaluation by your primary care provider. We do expect some chest wall pain, pain with breathing and upper back pain with blood clots in her lungs so this is not unusual. However, it's a bit more complicated to differentiate this pain from other more severe causes of pain given her history of coronary artery disease. Her magnesium was low as well and this is a common side effect of her chlorthalidone diuretic. All discharge instructions reviewed with patient and/ or family. Voiced understanding. Scripts Magnesium Oxide (Magnesium) 400 Mg Tablet 400 MG PO BID, #10 TAB Prov: MARTA BLAIR CAREER DEVELOPMENT ENGINEER 04/30/18 Copy Copies To 1: BRAD HDEZ MD, PETER J APRN Apr 30, 2018 21:46
--- OUTSIDE RECORDS SUMMARY | 2018-04-30 21:46 | XMS REPORT | Continuity of Care Document ---
Author Author [facility] Organization [facility] Address Unknown Phone Unavailable Allergies Active [...] (BULK) MODERATE DERMATOLOGICAL - PHUONG Yes ketorolac [id number] Drug Allergy Mild N/A 08/13/2015 Yes morphine [id number] Drug Allergy Mild N/A 08/13/2015 Yes Penicillins [id number] Drug Allergy Mild N/A 08/13/2015 Yes tetracycline [id number] Drug Allergy Mild N/A 08/13/2015 Yes aspirin NKMA Medium N/A 11/23/2015 Yes Paxil NKMA N/A N/ A 11/23/2015 Yes tetracycline NKMA Medium N/A 11/23/2015 Yes Toradol NKMA Severe N/A 11/23/2015 Yes paroxetine [id number] Drug Allergy Unknown N/A 02/24/2016 Medications Medication [...] 11/23/2015 IntraMuscular 0.5 mL, IntraMuscular, As Indicated HYDROcodone-acetaminophen(Martin 5 mg-325 mg oral tablet) 1 tabs [...] 100 MG (NITROFURANTOIN-BID CAP) MG 06/18/2016 06/25/2016 BID&08,1999 LISINOPRIL TAB 10 MG (ZESTRIL) MG 06/18/2016 [...] MG 07/18/2016 Daily&0900 MultiVits (Thera M Plus) (ohtdjjwf-hmug-mkrxajk) oral tablet TAB 06/19/2016 07/18/2016 Daily&0900 CALCIUM [...] DO Ot F41.9 ANXIETY DISORDER, UNSPECIFIED 08/13/2015 MELONY DURAND DOR L Ot I51.7 CARDIOMEGALY 08/13/2015 VARGAS DURAND DO Ot J40 BRONCHITIS, NOT SPECIFIED ACUTE OR CH 08/13/2015 VARGAS DURAND DO L Ot K21.9 GASTRO-ESOPHAGEAL REFLUX DISEASE WITHOUT 08/19/2015 MELONY DURAND DOR L Ot F41.9 08/19/2015 MELONY DURAND DOR L Ot I51.7 08/19/2015 VARGAS DURAND DO Ot J40 08/19/2015 VARGAS DURAND DO Ot K21.9 11/15/2015 A V54.01 ENCOUNTER FOR REMOVAL OF INTERNAL FIXATION DEVICE 11/15/2015 A Z47.2 ENCOUNTER FOR REMOVAL OF INTERNAL FIXATION DEVICE 11/24/2015 [place] ODILIA LEONG Ot F41.9 ANXIETY DISORDER, UNSPECIFIED 11/24/2015 [place] OD[place] LEONG Ot S01.112A LACERATION W/O FB OF LEFT EYELID AND PER [facility] FRACTURES OF OTH SKULL AND FACIAL BONES, 11/24/2015 [place] ODIL[place] LEONG Ot S06.0X0A CONCUSSION WITHOUT LOSS OF CONSCIOUSNESS 11/24/2015 [facility] W17.89XA OTHER FALL FROM ONE LEVEL TO ANOTHER, IN 11/24/2015 [facility] Y[facility].[address] [facility] SINGLE-FAMILY (PRIVATE) [facility] 11/24/2015 JAY[facility] ODILIA Baptiste Ot Y99.8 OTHER EXTERNAL CAUSE STATUS 11/26/2015 [facility] F41.9 ANXIETY DISORDER, UNSPECIFIED 11/26/2015 [facility] S01.112A LACERATION W/O FB OF LEFT EYELID AND PER 11/26/2015 [facility] S02.8XXA FRACTURES OF OTH SKULL AND FACIAL BONES, 11/26/2015 [place] ODILIA LEONG Ot S06.0X0A CONCUSSION WITHOUT LOSS OF CONSCIOUSNESS 11/26/2015 [facility] W17.89XA OTHER FALL FROM ONE LEVEL TO ANOTHER, IN 11/26/2015 [facility] OD[facility] Baptiste Ot Y92.[address] IN SINGLE-FAMILY (PRIVATE) [facility] 11/26/2015 [facility] Baptiste Ot Y99.8 OTHER EXTERNAL CAUSE [...] W 493.90 ASTHMA, UNSPECIFIED 06/18/2016 WHITE, BRAD W 530.81 ESOPHAGEAL REFLUX 06/18/2016 WHITE, BRAD W 564.1 06/18/2016 WHITE, BRAD W 596.51 06/18/2016 WHITE, BRAD Ben 716.20 06/18/2016 WHITE, BRAD W 722.51 06/18/2016 WHITE, BRAD Contreras E78.5 HYPERLIPIDEMIA, UNSPECIFIED 06/18/2016 WHITE KAYKAY F01.51 06/18/2016 WHITE BRAD Ben F33.3 06/18/2016 WHITE BRAD W I10 ESSENTIAL (PRIMARY) HYPERTENSION 06/18/2016 WHITE, BRAD Ben J45.909 UNSPECIFIED ASTHMA, UNCOMPLICATED 06/18/2016 WHITE BRAD Ben K21.9 GASTRO-ESOPHAGEAL REFLUX DISEASE WITHOUT ESOPHAGITIS 06/18/2016 [facility] K58.9 IRRITABLE BOWEL SYNDROME WITHOUT DIARRHEA 06/18/2016 BRAD CASTILLO M13.80 OTHER SPECIFIED ARTHRITIS, UNSPECIFIED SITE 06/18/2016 WHITE BRAD Ben M51.35 06/18/2016 [facility] N32.81 OVERACTIVE BLADDER 06/18/2016 [facility] 300.00 ANXIETY STATE, UNSPECIFIED 06/18/2016 [facility] 599.0 URINARY TRACT INFECTION, SITE NOT SPECIFIED 06/18/2016 [facility] F41.9 ANXIETY DISORDER, UNSPECIFIED 06/18/2016 [facility] N39.0 URINARY TRACT INFECTION, SITE NOT SPECIFIED 06/27/2016 BRAD CASTILLO 296.34 07/09/2016 [facility] A 300.00 ANXIETY STATE, UNSPECIFIED 07/09/2016 BRAD [...] INIT 06/11/2017 ESTEFANIA CLEMENTE MD Ot M85.88 OT DISRD OF BONE DENSITY AND STRUCTURE, 06/19/2017 ESTEFANIA CLEMENTE MD, Ot M48.50XA COLLAPSED VERTEBRA, NEC, SITE UNSP, INIT 06/19/2017 ESTEFANIA CLEMENTE MD Ot M85.88 OT DISRD OF BONE DENSITY AND STRUCTURE, 06/26/2017 Eboh, Rhsupriya A 300.00 ANXIETY STATE, UNSPECIFIED 06/26/2017 Eboh, Jazmyn A F41.9 ANXIETY DISORDER, UNSPECIFIED 07/13/2017 JUANJO KEATING, DARCI Hartmann Ot 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 07/13/2017 JUANJO KEATING, DARCI Hartmann Ot R51 HEADACHE 07/13/2017 BERYL KEATING, LIZZY Aguilar Ot K58.9 IRRITABLE BOWEL SYNDROME WITHOUT DIARRHE 07/13/2017 LIZZY CORDOBA MD Ot R10.12 LEFT UPPER QUADRANT PAIN 07/13/2017 LIZZY CORDOBA MD Ot R10.32 LEFT LOWER QUADRANT PAIN 07/13/2017 LIZZY CORDOBA MD Ot Z01.818 ENCOUNTER FOR [...] MD Ot E87.2 ACIDOSIS 07/16/2017 Kody CARDOZO MD, Ot E87.8 OTH DISORDERS OF ELECTROLYTE AND [...] CARDOZO MD Ot M54.9 DORSALGIA, UNSPECIFIED 07/16/2017 KHALID MD, M BLAYNE Ot N18.3 CHRONIC KIDNEY DISEASE, STAGE 3 [...] DIASTOLIC (CONGESTIVE) HEART FAILU 07/17/2017 Kody CARDOZO MD, Ot J44.9 CHRONIC OBSTRUCTIVE PULMONARY DISEASE, U 07/17/2017 Kody CARDOZO MD Ot K58.9 IRRITABLE BOWEL SYNDROME WITHOUT DIARRHE 07/17/2017 KHALID MD, M BLAYNE Ot K59.09 OTHER CONSTIPATION 07/17/2017 Kody CARDOZO MD Ot M19.90 UNSPECIFIED OSTEOARTHRITIS, UNSPECIFIED 07/17/2017 Kody CARDOOZ MD, Ot M54.9 DORSALGIA, UNSPECIFIED 07/17/2017 Kody CARDOZO MD Ot N18.3 CHRONIC KIDNEY DISEASE, STAGE 3 (MODERAT 07/17/2017 Kody CARDOZO MD Ot R00.1 BRADYCARDIA, UNSPECIFIED 07/17/2017 Kody CARDOZO MD Ot R32 UNSPECIFIED URINARY INCONTINENCE 07/17/2017 Kody CARDOZO MD Ot Z86.010 PERSONAL HISTORY OF COLONIC POLYPS 07/17/2017 Kody CARDOZO MD, Ot Z87.11 PERSONAL HISTORY OF PEPTIC ULCER DISEASE 07/17/2017 Kody CARDOZO MD Ot 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 07/17/2017 Kdoy CARDOZO MD Ot D72.829 ELEVATED WHITE BLOOD [...] W HRT FAIL AND ST 07/17/2017 Kody CADROZO MD Ot I50.21 ACUTE SYSTOLIC (CONGESTIVE) HEART [...] ACIDOSIS 07/18/2017 Kody CARDOZO MD Ot E87.8 OT DISORDERS OF ELECTROLYTE AND FLUID B 07/18/2017 [...] SYSTOLIC (CONGESTIVE) HEART FAILUR 07/18/2017 Kody CARDOZO MD, Ot I50.31 ACUTE DIASTOLIC (CONGESTIVE) HEART FAILU 07/18/2017 Kody CARDOZO MD Ot J44.9 CHRONIC OBSTRUCTIVE PULMONARY DISEASE, U 07/18/2017 Kody CARDOZO MD Ot K58.9 IRRITABLE BOWEL SYNDROME WITHOUT DIARRHE 07/18/2017 Kody CARDOZO MD, Ot K59.09 OTHER CONSTIPATION 07/18/2017 Kody CARDOZO MD Ot M19.90 UNSPECIFIED OSTEOARTHRITIS, UNSPECIFIED 07/18/2017 Kody CARDOZO MD, Ot M54.9 DORSALGIA, UNSPECIFIED 07/18/2017 Kody CARDOZO [...] CARDOZO MD Ot R00.1 BRADYCARDIA, UNSPECIFIED 07/18/2017 CAS KEATING M BLAYNE Ot R32 UNSPECIFIED URINARY INCONTINENCE 07/18/2017 Kody CARDOZO MD Ot T38.0X5A ADVERSE EFFECT OF GLUCOCORT/SYNTH ANALOG 07/18/2017 Kody ACRDOZO MD Ot Z86.010 PERSONAL HISTORY OF COLONIC POLYPS 07/18/2017 Kody CARDOZO MD Ot Z87.11 PERSONAL HISTORY OF PEPTIC ULCER DISEASE 07/18/2017 Kody CARDOZO MD BLAYNE Ot 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 09/27/2017 JUANJO KEATING, DARCI Hartmann Ot 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 09/27/2017 DARCI GEIGER MD Ot R51 HEADACHE 09/27/2017 LIZZY CORDOBA MD Ot K58.9 IRRITABLE BOWEL SYNDROME WITHOUT DIARRHE 09/27/2017 LIZZY CORDOBA MD Ot R10.12 LEFT UPPER QUADRANT PAIN 09/27/2017 LIZZY CORDOBA MD Ot R10.32 LEFT LOWER QUADRANT PAIN 09/27/2017 LIZZY CORDOBA MD Ot Z01.818 ENCOUNTER FOR OTHER PREPROCEDURAL EXAMIN 09/27/2017 LIZZY CORDOBA MD Ot Z86.010 PERSONAL HISTORY OF COLONIC POLYPS 09/27/2017 ELLEN LEONG LOY Feliberto Ot Z12.31 ENCNTR SCREEN MAMMOGRAM FOR MALIGNANT NE 09/27/2017 BRYN KEATING, ESTEFANIA Dodd Ot M48.50XA COLLAPSED VERTEBRA, NEC, SITE UNSP, INIT 09/27/2017 ESTEFANIA CLEMENTE MD Ot M85.88 OTH DISRD OF BONE DENSITY AND STRUCTURE, 09/27/2017 SPIKE NIX MD Ot E78.00 PURE HYPERCHOLESTEROLEMIA, UNSPECIFIED 09/27/2017 SPIKE NIX MD Ot F03.90 UNSPECIFIED DEMENTIA WITHOUT BEHAVIORAL 09/27/2017 SPIKE NIX MD, Ot F41.9 ANXIETY DISORDER, UNSPECIFIED 09/27/2017 SPIKE NIX MD Ot I10 ESSENTIAL (PRIMARY) HYPERTENSION 09/27/2017 SPIKE NIX MD Ot J44.9 CHRONIC OBSTRUCTIVE PULMONARY DISEASE, U 09/27/2017 SPIKE NIX MD Ot M25.512 PAIN IN LEFT SHOULDER 09/27/2017 SPIKE NIX MD Ot N39.0 URINARY TRACT INFECTION, SITE NOT SPECIF 09/27/2017 SPIKE NIX MD Ot S42.202A UNSP FRACTURE OF UPPER END OF LEFT HUMER 09/27/2017 SPIKE NIX MD Ot W01.0XXA FALL SAME LEV FROM SLIP/TRIP W/O STRIKE 09/27/2017 SPIKE NIX MD Ot Y92.[address] IN [facility] NON-INSTITUT (PRIVATE 09/27/2017 SPIKE NIX MD, Ot Z87.19 PERSONAL HISTORY OF OTHER DISEASES OF TH 09/27/2017 SPIKE NIX MD, Ot Z87.42 PERSONAL HISTORY OF OTH DISEASES OF THE 09/27/2017 SPIKE NIX MD, Ot Z87.81 PERSONAL HISTORY OF (HEALED) TRAUMATIC F 09/27/2017 SPIKE NIX MD, Ot Z88.0 ALLERGY STATUS TO PENICILLIN 09/27/2017 SPIKE NIX MD, Ot Z88.1 ALLERGY STATUS TO OTHER ANTIBIOTIC AGENT 09/27/2017 SPIKE NIX MD, Ot Z88.6 ALLERGY STATUS TO ANALGESIC AGENT STATUS 09/27/2017 SPIKE NIX MD, Ot Z88.8 ALLERGY STATUS TO OTH DRUG/MEDS/BIOL SUB 09/27/2017 SPIKE NIX MD, Ot Z90.49 ACQUIRED ABSENCE OF OTHER SPECIFIED PART 09/27/2017 SPIKE NIX MD, Ot Z90.710 ACQUIRED ABSENCE OF BOTH CERVIX AND UTER 09/27/2017 SPIKE NIX MD, Ot Z95.0 PRESENCE OF CARDIAC PACEMAKER 09/27/2017 JUANJO KEATING, DARCI Hartmann Ot 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 09/27/2017 DARCI GEIGER MD Ot R51 HEADACHE 09/27/2017 LIZZY CORDOBA MD Ot K58.9 IRRITABLE BOWEL SYNDROME WITHOUT DIARRHE 09/27/2017 LIZZY CORDOBA MD Ot R10.12 LEFT UPPER QUADRANT PAIN 09/27/2017 LIZZY CORDOBA MD Ot R10.32 LEFT LOWER QUADRANT PAIN 09/27/2017 LIZZY CORDOBA MD Ot Z01.818 ENCOUNTER FOR OTHER PREPROCEDURAL EXAMIN 09/27/2017 LIZZY CORDOBA MD Ot Z86.010 PERSONAL HISTORY OF COLONIC POLYPS 09/27/2017 LOY HUGHES DO Ot Z12.31 ENCNTR SCREEN MAMMOGRAM FOR MALIGNANT NE 09/27/2017 ESTEFANIA CLEMENTE MD Ot M48.50XA COLLAPSED VERTEBRA, NEC, SITE UNSP, INIT 09/27/2017 ESTEFANIA CLEMENTE MD Ot M85.88 OTH DISRD OF BONE DENSITY AND STRUCTURE, 09/28/2017 SPIKE NIX MD, Ot E78.00 PURE HYPERCHOLESTEROLEMIA, UNSPECIFIED 09/28/2017 SPIKE NIX MD, Ot F03.90 UNSPECIFIED DEMENTIA WITHOUT BEHAVIORAL 09/28/2017 SPIKE NIX MD, Ot F41.9 ANXIETY DISORDER, UNSPECIFIED 09/28/2017 SPIKE NIX MD, Ot I10 ESSENTIAL (PRIMARY) HYPERTENSION 09/28/2017 SPIKE NIX MD, Ot J44.9 CHRONIC OBSTRUCTIVE PULMONARY DISEASE, U 09/28/2017 SPIKE NIX MD, Ot M25.512 PAIN IN LEFT SHOULDER 09/28/2017 SPIKE NIX MD, Ot N39.0 URINARY TRACT INFECTION, SITE NOT SPECIF 09/28/2017 SPIKE NIX MD, Ot S42.202A UNSP FRACTURE OF UPPER END OF LEFT HUMER 09/28/2017 SPIKE NIX MD, Ot W01.0XXA FALL SAME LEV FROM SLIP/TRIP W/O STRIKE 09/28/2017 SPIKE NIX MD, Ot Y92.[address] IN UNSP NON-INSTITUT (PRIVATE 09/28/2017 SPIKE NIX MD, Ot Z87.19 PERSONAL HISTORY OF OTHER DISEASES OF TH 09/28/2017 SPIKE NIX MD, Ot Z87.42 PERSONAL HISTORY OF OTH DISEASES OF THE 09/28/2017 SPIKE NIX MD, Ot Z87.81 PERSONAL HISTORY OF (HEALED) TRAUMATIC F 09/28/2017 SPIKE INX MD, Ot Z88.0 ALLERGY STATUS TO PENICILLIN 09/28/2017 SPIKE NIX MD, Ot Z88.1 ALLERGY STATUS TO OTHER ANTIBIOTIC AGENT 09/28/2017 SPIKE NIX MD, Ot Z88.6 ALLERGY STATUS TO ANALGESIC AGENT STATUS 09/28/2017 SPIKE NIX MD, Ot Z88.8 ALLERGY STATUS TO OTH DRUG/MEDS/BIOL SUB 09/28/2017 SPIKE NIX MD, Ot Z90.49 ACQUIRED ABSENCE OF OTHER SPECIFIED PART 09/28/2017 SPIKE NIX MD Ot Z90.710 ACQUIRED ABSENCE OF BOTH CERVIX AND UTER 09/28/2017 SPIKE NIX MD Ot Z95.0 PRESENCE OF CARDIAC PACEMAKER 10/12/2017 ALVAREZ DUMONT APRN Ot Z12.31 ENCNTR SCREEN MAMMOGRAM FOR MALIGNANT NE 11/09/2017 ALVAREZ DUMONT APRN Ot Z12.31 ENCNTR SCREEN MAMMOGRAM FOR MALIGNANT NE 11/13/2017 LIZZY CORDOBA MD Ot K58.9 IRRITABLE BOWEL SYNDROME WITHOUT DIARRHE 11/13/2017 LIZZY CORDOBA MD Ot R10.12 LEFT UPPER QUADRANT PAIN 11/13/2017 LIZZY CORDOBA MD Ot R10.32 LEFT LOWER QUADRANT PAIN 11/13/2017 LIZZY CORDOBA MD Ot Z01.818 ENCOUNTER FOR OTHER PREPROCEDURAL EXAMIN 11/13/2017 LIZZY CORDOBA MD Ot Z86.010 PERSONAL HISTORY OF COLONIC POLYPS 11/13/2017 LOY HUGHES DO Ot Z12.31 ENCNTR SCREEN MAMMOGRAM FOR MALIGNANT NE 11/13/2017 ESTEFANIA CLEMENTE MD Ot M48.50XA COLLAPSED VERTEBRA, NEC, SITE UNSP, INIT 11/13/2017 ESTEFANIA CLEMENTE MD Ot M85.88 OTH DISRD OF BONE DENSITY AND STRUCTURE, 11/13/2017 SUSIE RAMIREZ MD Ot D47.3 ESSENTIAL (HEMORRHAGIC) THROMBOCYTHEMIA 11/13/2017 SUSIE RAMIREZ MD Ot D72.829 ELEVATED WHITE BLOOD CELL COUNT, UNSPECI 11/13/2017 SUSIE RAMIREZ MD Ot E88.01 VHQSA-3-FMPNTRPBKHN DEFICIENCY 11/13/2017 SUSIE RAMIREZ MD Ot F41.9 ANXIETY DISORDER, UNSPECIFIED 11/13/2017 SUSIE RAMIREZ MD Ot I10 ESSENTIAL (PRIMARY) HYPERTENSION 11/13/2017 SUSIE RAMIREZ MD Ot J44.9 CHRONIC OBSTRUCTIVE PULMONARY DISEASE, U 11/13/2017 SUSIE RAMIREZ MD Ot J45.909 UNSPECIFIED ASTHMA, UNCOMPLICATED 11/13/2017 SUSIE RAMIREZ MD Ot M17.0 BILATERAL PRIMARY OSTEOARTHRITIS OF KNEE 11/13/2017 SUSIE RAMIREZ MD Ot R06.02 SHORTNESS OF BREATH 11/13/2017 SUSIE RAMIREZ MD Ot R07.9 CHEST PAIN, UNSPECIFIED 11/13/2017 SUSIE RAMIREZ MD Ot R19.7 DIARRHEA, UNSPECIFIED 11/13/2017 SUSIE RAMIREZ MD Ot Z79.899 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) DRUG THERAPY 11/13/2017 SUSIE RAMIREZ MD Ot Z95.0 PRESENCE OF CARDIAC PACEMAKER 11/16/2017 ALVAREZ DUMONT DIGITAL DIRECTOR Ot Z12.31 ENCNTR SCREEN MAMMOGRAM FOR MALIGNANT NE 11/27/2017 SUSIE RAMIREZ MD Ot D47.3 ESSENTIAL (HEMORRHAGIC) THROMBOCYTHEMIA 11/27/2017 SUSIE RAMIREZ MD Ot D72.829 ELEVATED WHITE BLOOD CELL COUNT, UNSPECI 11/27/2017 SUSIE RAMIREZ MD Ot E88.01 XLQVO-1-QFIXAYPWEBA DEFICIENCY 11/27/2017 SUSIE RAMIREZ MD Ot F41.9 ANXIETY DISORDER, UNSPECIFIED 11/27/2017 SUSIE RAMIREZ MD Ot I10 ESSENTIAL (PRIMARY) HYPERTENSION 11/27/2017 SUSIE RAMIREZ MD Ot J44.9 CHRONIC OBSTRUCTIVE PULMONARY DISEASE, U 11/27/2017 SUSIE RAMIREZ MD Ot J45.909 UNSPECIFIED ASTHMA, UNCOMPLICATED 11/27/2017 SUSIE RAMIREZ MD Ot M17.0 BILATERAL PRIMARY OSTEOARTHRITIS OF KNEE 11/27/2017 SUSIE RAMIREZ MD Ot R06.02 SHORTNESS OF BREATH 11/27/2017 SUSIE RAMIREZ MD Ot R07.9 CHEST PAIN, UNSPECIFIED 11/27/2017 SUSIE RAMIREZ MD Ot R19.7 DIARRHEA, UNSPECIFIED 11/27/2017 SUSIE RAMIREZ MD Ot Z79.899 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) DRUG THERAPY 11/27/2017 SUSIE RAMIREZ MD Ot Z95.0 PRESENCE OF CARDIAC PACEMAKER 12/03/2017 ALVAREZ DUMONT DIGITAL DIRECTOR Ot Z12.31 ENCNTR SCREEN MAMMOGRAM FOR MALIGNANT NE 12/10/2017 ALVAREZ DUMONT DIGITAL DIRECTOR Ot Z12.31 ENCNTR SCREEN MAMMOGRAM FOR MALIGNANT NE 12/14/2017 SUSIE RAMIREZ MD Ot D47.3 ESSENTIAL (HEMORRHAGIC) THROMBOCYTHEMIA 12/14/2017 SUSIE RAMIREZ MD Ot D72.829 ELEVATED WHITE BLOOD CELL COUNT, UNSPECI 12/14/2017 SUSIE RAMIREZ MD Ot E88.01 XYVGK-8-BEVMPMMNMDE DEFICIENCY 12/14/2017 SUSIE RAMIREZ MD Ot F41.9 ANXIETY DISORDER, UNSPECIFIED 12/14/2017 SUSIE RAMIREZ MD Ot I10 ESSENTIAL (PRIMARY) HYPERTENSION 12/14/2017 SUSIE RAMIREZ MD Ot J44.9 CHRONIC OBSTRUCTIVE PULMONARY DISEASE, U 12/14/2017 SUSIE RAMIREZ MD Ot J45.909 UNSPECIFIED ASTHMA, UNCOMPLICATED 12/14/2017 SUSIE RAMIREZ MD Ot M17.0 BILATERAL PRIMARY OSTEOARTHRITIS OF KNEE 12/14/2017 SUSIE RAMIREZ MD Ot R06.02 SHORTNESS OF BREATH 12/14/2017 SUSIE RAMIREZ MD Ot R07.9 CHEST PAIN, UNSPECIFIED 12/14/2017 SUSIE RAMIREZ MD Ot R19.7 DIARRHEA, UNSPECIFIED 12/14/2017 SUSIE RAMIREZ MD Ot Z79.899 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) DRUG THERAPY 12/14/2017 SUSIE RAMIREZ MD Ot Z95.0 PRESENCE OF CARDIAC PACEMAKER 12/24/2017 SUSIE RAMIREZ MD Ot D47.3 ESSENTIAL (HEMORRHAGIC) THROMBOCYTHEMIA 12/24/2017 SUSIE RAMIREZ MD Ot D72.829 ELEVATED WHITE BLOOD CELL COUNT, UNSPECI 12/24/2017 SUSIE RAMIREZ MD Ot E88.01 YJHXN-5-ASZEKXKANLK DEFICIENCY 12/24/2017 SUSIE RAMIREZ MD Ot F41.9 ANXIETY DISORDER, UNSPECIFIED 12/24/2017 SUSIE RAMIREZ MD Ot I10 ESSENTIAL (PRIMARY) HYPERTENSION 12/24/2017 SUSIE RAMIREZ MD Ot J44.9 CHRONIC OBSTRUCTIVE PULMONARY DISEASE, U 12/24/2017 SUSIE RAMIREZ MD Ot J45.909 UNSPECIFIED ASTHMA, UNCOMPLICATED 12/24/2017 SUSIE RAMIREZ MD Ot M17.0 BILATERAL PRIMARY OSTEOARTHRITIS OF KNEE 12/24/2017 SUSIE RAMIREZ MD Ot R06.02 SHORTNESS OF BREATH 12/24/2017 SUSIE RAMIREZ MD Ot R07.9 CHEST PAIN, UNSPECIFIED 12/24/2017 SUSIE RAMIREZ MD Ot R19.7 DIARRHEA, UNSPECIFIED 12/24/2017 SUSIE RAMIREZ MD Ot Z79.899 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) DRUG THERAPY 12/24/2017 SUSIE RAMIREZ MD Ot Z95.0 PRESENCE OF CARDIAC PACEMAKER 12/27/2017 SUSIE RAMIREZ MD Ot D47.3 ESSENTIAL (HEMORRHAGIC) THROMBOCYTHEMIA 12/27/2017 SUSIE RAMIREZ MD Ot D72.829 ELEVATED WHITE BLOOD CELL COUNT, UNSPECI 12/27/2017 SUSIE RAMIREZ MD Ot E88.01 VUYQB-0-ZORIHGNOSUN DEFICIENCY 12/27/2017 SUSIE RAMIREZ MD Ot F41.9 ANXIETY DISORDER, UNSPECIFIED 12/27/2017 SUSIE RAMIREZ MD Ot I10 ESSENTIAL (PRIMARY) HYPERTENSION 12/27/2017 SUSIE RAMIREZ MD Ot J44.9 CHRONIC OBSTRUCTIVE PULMONARY DISEASE, U 12/27/2017 SUSIE RAMIREZ MD Ot J45.909 UNSPECIFIED ASTHMA, UNCOMPLICATED 12/27/2017 SUSIE RAMIREZ MD Ot M17.0 BILATERAL PRIMARY OSTEOARTHRITIS OF KNEE 12/27/2017 SUSIE RAMIREZ MD Ot R06.02 SHORTNESS OF BREATH 12/27/2017 SUSIE RAMIREZ MD Ot R07.9 CHEST PAIN, UNSPECIFIED 12/27/2017 SUSIE RAMIREZ MD Ot R19.7 DIARRHEA, UNSPECIFIED 12/27/2017 SUSIE RAMIREZ MD Ot Z79.899 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) DRUG THERAPY 12/27/2017 SUSIE RAMIREZ MD Ot Z95.0 PRESENCE OF CARDIAC PACEMAKER 02/03/2018 CRICKET ARAUJO APRN Ot J45.909 UNSPECIFIED ASTHMA, UNCOMPLICATED 02/03/2018 CRICKET ARAUJO APRN Ot R06.02 SHORTNESS OF BREATH 02/05/2018 SUSIE RAMIREZ MD Ot D47.3 ESSENTIAL (HEMORRHAGIC) THROMBOCYTHEMIA 02/05/2018 SUSIE RAMIREZ MD Ot D72.829 ELEVATED WHITE BLOOD CELL COUNT, UNSPECI 02/05/2018 SUSIE RAMIREZ MD Ot E88.01 BXLLQ-5-JMXBDNZKDQH DEFICIENCY 02/05/2018 SUSIE RAMIREZ MD Ot F41.9 ANXIETY DISORDER, UNSPECIFIED 02/05/2018 SUSIE RAMIREZ MD Ot I10 ESSENTIAL (PRIMARY) HYPERTENSION 02/05/2018 SUSIE RAMIREZ MD Ot J44.9 CHRONIC OBSTRUCTIVE PULMONARY DISEASE, U 02/05/2018 SUSIE RAMIREZ MD Ot J45.909 UNSPECIFIED ASTHMA, UNCOMPLICATED 02/05/2018 USSIE RAMIREZ MD Ot M17.0 BILATERAL PRIMARY OSTEOARTHRITIS OF KNEE 02/05/2018 SUSIE RAMIREZ MD Ot R06.02 SHORTNESS OF BREATH 02/05/2018 SUSIE RAMIREZ MD Ot R07.9 CHEST PAIN, UNSPECIFIED 02/05/2018 SUSIE RAMIREZ MD Ot R19.7 DIARRHEA, UNSPECIFIED 02/05/2018 SUSIE RAMIREZ MD Ot Z79.899 OTHER SNF (CURRENT) DRUG THERAPY 02/05/2018 SUSIE RAMIREZ MD Ot Z95.0 PRESENCE OF CARDIAC PACEMAKER 02/05/2018 CRICKET ARAUJO APRN Ot J45.909 UNSPECIFIED ASTHMA, UNCOMPLICATED 02/05/2018 VANCRICKET STEWARD APRN Ot R06.02 SHORTNESS OF BREATH 02/17/2018 Ot 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 02/17/2018 Ot F41.9 ANXIETY DISORDER, UNSPECIFIED 02/17/2018 Ot M19.90 UNSPECIFIED OSTEOARTHRITIS, UNSPECIFIED 02/24/2018 VANCRICKET STEWARD APRN Ot J45.909 UNSPECIFIED ASTHMA, UNCOMPLICATED 02/24/2018 CRICKET ARAUJO APRN Ot R06.02 SHORTNESS OF BREATH 02/24/2018 CRICKET ARAUJO APRN Ot J45.909 UNSPECIFIED ASTHMA, UNCOMPLICATED 02/24/2018 CRICKET ARAUJO APRN Ot R06.02 SHORTNESS OF BREATH 03/02/2018 SUSIE RAMIREZ MD Ot D47.3 ESSENTIAL (HEMORRHAGIC) THROMBOCYTHEMIA 03/02/2018 SUSIE RAMIREZ MD Ot D72.829 ELEVATED WHITE BLOOD CELL COUNT, UNSPECI 03/02/2018 SUSIE RAMIREZ MD Ot E88.01 THXNU-5-WSZMZHYIOWY DEFICIENCY 03/02/2018 SUSIE RAMIREZ MD Ot F41.9 ANXIETY DISORDER, UNSPECIFIED 03/02/2018 SUSIE RAMIREZ MD Ot I10 ESSENTIAL (PRIMARY) HYPERTENSION 03/02/2018 SUSIE RAMIREZ MD Ot J44.9 CHRONIC OBSTRUCTIVE PULMONARY DISEASE, U 03/02/2018 SUSIE RAMIREZ MD Ot J45.909 UNSPECIFIED ASTHMA, UNCOMPLICATED 03/02/2018 SUSIE RAMIREZ MD Ot M17.0 BILATERAL PRIMARY OSTEOARTHRITIS OF KNEE 03/02/2018 SUSIE RAMIREZ MD Ot R06.02 SHORTNESS OF BREATH 03/02/2018 SUSIE RAMIREZ MD Ot R07.9 CHEST PAIN, UNSPECIFIED 03/02/2018 SUSIE RAMIREZ MD Ot R19.7 DIARRHEA, UNSPECIFIED 03/02/2018 SUSIE ARMIREZ MD Ot Z79.899 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) DRUG THERAPY 03/02/2018 SUSIE RAMIREZ MD Ot Z95.0 PRESENCE OF CARDIAC PACEMAKER 03/08/2018 SUSIE RAMIREZ MD Ot D47.3 ESSENTIAL (HEMORRHAGIC) THROMBOCYTHEMIA 03/08/2018 JAMES KEATING, SUSIE Ot D72.829 ELEVATED WHITE BLOOD CELL COUNT, UNSPECI 03/08/2018 SUSIE RAMIREZ MD Ot E88.01 BKYVZ-0-POYTHAYNAEK DEFICIENCY 03/08/2018 SUSIE RAMIREZ MD Ot F41.9 ANXIETY DISORDER, UNSPECIFIED 03/08/2018 SUSIE RAMIREZ MD Ot I10 ESSENTIAL (PRIMARY) HYPERTENSION 03/08/2018 SUSIE RAMIREZ MD Ot J44.9 CHRONIC OBSTRUCTIVE PULMONARY DISEASE, U 03/08/2018 SUSIE RAMIREZ MD Ot J45.909 UNSPECIFIED ASTHMA, UNCOMPLICATED 03/08/2018 SUSIE RAMIREZ MD Ot M17.0 BILATERAL PRIMARY OSTEOARTHRITIS OF KNEE 03/08/2018 SUSIE RAMIREZ MD Ot R06.02 SHORTNESS OF BREATH 03/08/2018 SUSIE RAMIREZ MD Ot R07.9 CHEST PAIN, UNSPECIFIED 03/08/2018 SUSIE RAMIREZ MD Ot R19.7 DIARRHEA, UNSPECIFIED 03/08/2018 SUSIE RAMIREZ MD Ot Z79.899 OTHER SNF (CURRENT) DRUG THERAPY 03/08/2018 SUSIE RAMIREZ MD Ot Z95.0 PRESENCE OF CARDIAC PACEMAKER 03/11/2018 Ot 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 03/11/2018 Ot F41.9 ANXIETY DISORDER, UNSPECIFIED 03/11/2018 Ot M19.90 UNSPECIFIED OSTEOARTHRITIS, UNSPECIFIED 03/17/2018 Ot 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 03/17/2018 Ot F41.9 ANXIETY DISORDER, UNSPECIFIED 03/17/2018 Ot M19.90 UNSPECIFIED OSTEOARTHRITIS, UNSPECIFIED 03/22/2018 LIZZY CORDOBA MD Ot K58.9 IRRITABLE BOWEL SYNDROME WITHOUT DIARRHE 03/22/2018 LIZZY CORDOBA MD Ot R10.12 LEFT UPPER QUADRANT PAIN 03/22/2018 LIZZY CORDOBA MD Ot R10.32 LEFT LOWER QUADRANT PAIN 03/22/2018 LIZZY CORDOBA MD Ot Z01.818 ENCOUNTER FOR OTHER PREPROCEDURAL EXAMIN 03/22/2018 LIZZY CORDOBA MD Ot Z86.010 PERSONAL HISTORY OF COLONIC POLYPS 03/22/2018 LOY HUGHES DO Ot Z12.31 ENCNTR SCREEN MAMMOGRAM FOR MALIGNANT NE 03/22/2018 ESTEFANIA CLEMENTE MD Ot M48.50XA COLLAPSED VERTEBRA, NEC, SITE UNSP, INIT 03/22/2018 ESTEFANIA CLEMENTE MD Ot M85.88 OTH DISRD OF BONE DENSITY AND STRUCTURE, 03/22/2018 ALVAREZ DUMONT Gisela SHAW Ot Z12.31 ENCNTR SCREEN MAMMOGRAM FOR MALIGNANT NE 03/22/2018 CRICKET ARAUJO APRN Ot J45.909 UNSPECIFIED ASTHMA, UNCOMPLICATED 03/22/2018 CRICKET ARAUJO APRN Ot R06.02 SHORTNESS OF BREATH 03/22/2018 Ot 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 03/22/2018 Ot F41.9 ANXIETY DISORDER, UNSPECIFIED 03/22/2018 Ot M19.90 UNSPECIFIED OSTEOARTHRITIS, UNSPECIFIED 03/22/2018 SUSIE RAMIREZ MD Ot D47.3 ESSENTIAL (HEMORRHAGIC) THROMBOCYTHEMIA 03/22/2018 SUSIE RAMIREZ MD Ot D72.829 ELEVATED WHITE BLOOD CELL COUNT, UNSPECI 03/22/2018 SUSIE RAMIREZ MD Ot E88.01 KMYFE-8-DDSXAIMYJKO DEFICIENCY 03/22/2018 SUSIE RAMIREZ MD Ot F41.9 ANXIETY DISORDER, UNSPECIFIED 03/22/2018 SUSIE RAMIREZ MD Ot I10 ESSENTIAL (PRIMARY) HYPERTENSION 03/22/2018 SUSIE RAMIREZ MD Ot J44.9 CHRONIC OBSTRUCTIVE PULMONARY DISEASE, U 03/22/2018 SUSIE RAMIREZ MD Ot J45.909 UNSPECIFIED ASTHMA, UNCOMPLICATED 03/22/2018 SUSIE RAMIREZ MD Ot M17.0 BILATERAL PRIMARY OSTEOARTHRITIS OF KNEE 03/22/2018 SUSIE RAMIREZ MD Ot R06.02 SHORTNESS OF BREATH 03/22/2018 SUSIE RAMIREZ MD Ot R07.9 CHEST PAIN, UNSPECIFIED 03/22/2018 SUSIE RAMIREZ MD Ot R19.7 DIARRHEA, UNSPECIFIED 03/22/2018 SUSIE RAMIREZ MD Ot Z79.899 OTHER SNF (CURRENT) DRUG THERAPY 03/22/2018 SUSIE RAMIREZ MD Ot Z95.0 PRESENCE OF CARDIAC PACEMAKER 03/23/2018 BRAD HDEZ MD Ot 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, THORACIC REGION 03/23/2018 BRAD HDEZ MD Ot M47.814 SPONDYLOSIS W/O MYELOPATHY OR RADICULOPA 04/06/2018 CRICKET ARAUJO APRN Ot J45.909 UNSPECIFIED ASTHMA, UNCOMPLICATED 04/06/2018 CRICKET ARAUJO APRN Ot R06.02 SHORTNESS OF BREATH 04/16/2018 KETTY KEATING, BRAD Aguilar Ot 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, THORACIC REGION 04/16/2018 KETTY KEATING, BRAD Aguilar Ot M47.814 SPONDYLOSIS W/O MYELOPATHY OR RADICULOPA 04/16/2018 CAS KEATING, Kody CISNEROS Ot E88.01 XJXIU-8-JCZURMBCVOS DEFICIENCY 04/16/2018 CAS KEATING, Kody CISNEROS Ot R06.02 SHORTNESS OF BREATH 04/22/2018 KETTY KEATING, BRAD Aguilar Ot 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, THORACIC REGION 04/22/2018 KETTY KEATING, BRAD Aguilar Ot M47.814 SPONDYLOSIS W/O MYELOPATHY OR RADICULOPA 04/27/2018 CRICKET ARAUJO APRN Ot E88.01 OIUFJ-0-BFRMEMOGDPO DEFICIENCY 04/27/2018 CRICKET ARAUJO APRN Ot F41.9 ANXIETY DISORDER, UNSPECIFIED 04/27/2018 CRICKET ARAUJO APRN Ot I26.99 OTHER PULMONARY EMBOLISM WITHOUT ACUTE C 04/27/2018 CRICKET ARAUJO APRN Ot M19.90 UNSPECIFIED OSTEOARTHRITIS, UNSPECIFIED 04/27/2018 CRICKET ARAUJO APRN Ot Z95.5 PRESENCE OF CORONARY ANGIOPLASTY IMPLANT Procedures Code Description Performed By Performed On [id number] INSERTION OF PACEMAKER LEAD INTO RIGHT A 07/17/2017 [id number] INSERTION OF PACEMAKER LEAD INTO R VENTR 07/17/2017 [id number] INSERT PACE. DUAL MAMADOU IN CHEST SUBCU/FA [...] 5-8.5 Urine-Protein Negative Negative Urine-RBC 0-2/HPF Urine-Specific [place] <=1.005 1.000-1.030 Urine-WBC 2-5/HPF Urobilinogen 0.2 0.2-1.0 [...] Automated blood platelet mean volume measurement 9.3 [[facility]] 7.4-10.4 Automated blood neutrophils/100 leukocytes 75 % [...] - 07/18/17 03:46 Magnesium 1.7 mg/dL 1.8-2.4 Complete blood count (CBC) with automated white blood cell (WBC) differential - 09/26/17 23:18 Blood leukocytes automated count (number/volume) 15.1 10*3/uL 4.3-11.0 Blood erythrocytes automated count (number/volume) 3.92 10*6/uL 4.35-5.85 Venous blood hemoglobin measurement (mass/volume) 12.1 g/dL 11.5-16.0 Blood hematocrit (volume fraction) 35 % 35-52 Automated erythrocyte mean corpuscular volume 90 [foz_us] 80-99 Automated erythrocyte mean corpuscular hemoglobin (mass per erythrocyte) 31 pg 25-34 Automated erythrocyte mean corpuscular hemoglobin concentration measurement ( mass/volume) 35 g/dL 32-36 Automated erythrocyte distribution width ratio 13.7 % 10.0-14.5 Automated blood platelet count (count/volume) 399 10*3/uL 130-400 Automated blood platelet mean volume measurement 8.7 [foz_us] 7.4-10.4 Automated blood neutrophils/100 leukocytes 69 % 42-75 Automated blood lymphocytes/100 leukocytes 23 % 12-44 Blood monocytes/100 leukocytes 6 % 0-12 Automated blood eosinophils/100 leukocytes 2 % 0-10 Automated blood basophils/100 leukocytes 0 % 0-10 Blood neutrophils automated count (number/volume) 10.4 10*3 1.8-7.8 Blood lymphocytes automated count (number/volume) 3.4 10*3 1.0-4.0 Blood monocytes automated count (number/volume) 0.9 10*3 0.0-1.0 Automated eosinophil count 0.3 10*3/uL 0.0-0.3 Automated blood basophil count (count/volume) 0.0 10*3/uL 0.0-0.1 Comprehensive metabolic panel - 09/26/17 23:18 Serum or plasma sodium measurement (moles/volume) 131 mmol/L 135-145 Serum or plasma potassium measurement (moles/volume) 4.1 mmol/L 3.6-5.0 Serum or plasma chloride measurement (moles/volume) 98 mmol/L 98-107 Carbon dioxide 21 mmol/L 21-32 Serum or plasma anion gap determination (moles/volume) 12 mmol/L 5-14 Serum or plasma urea nitrogen measurement (mass/volume) 27 mg/dL 7-18 Serum or plasma creatinine measurement (mass/volume) 1.02 mg/dL 0.60-1.30 Serum or plasma urea nitrogen/creatinine mass ratio 26 NRG Serum or plasma creatinine measurement with calculation of estimated glomerular filtration rate 53 NRG Serum or plasma glucose measurement (mass/volume) 149 mg/dL 70-105 Serum or plasma calcium measurement (mass/volume) 9.8 mg/dL 8.5-10.1 Serum or plasma total bilirubin measurement (mass/volume) 0.5 mg/dL 0.1-1.0 Serum or plasma alkaline phosphatase measurement (enzymatic activity/volume) 55 U/L 40-136 Serum or plasma aspartate aminotransferase measurement (enzymatic activity/ volume) 14 U/L 5-34 Serum or plasma alanine aminotransferase measurement (enzymatic activity/volume ) 15 U/L 0-55 Serum or plasma protein measurement (mass/volume) 6.7 g/dL 6.4-8.2 Serum or plasma albumin measurement (mass/volume) 4.0 g/dL 3.2-4.5 Complete urinalysis with reflex to culture - 09/27/17 00:50 Urine color determination YELLOW NRG Urine clarity determination CLEAR NRG Urine pH measurement by test strip 5 5-9 Specific gravity of urine by test strip 1.020 1.016- 1.022 Urine protein assay by test strip, semi-quantitative 2+ NEGATIVE Urine glucose detection by automated test strip NEGATIVE NEGATIVE Erythrocytes detection in urine sediment by light microscopy 4+ NEGATIVE Urine ketones detection by automated test strip NEGATIVE NEGATIVE Urine nitrite detection by test strip NEGATIVE NEGATIVE Urine total bilirubin detection by test strip NEGATIVE NEGATIVE Urine urobilinogen measurement by automated test strip (mass/volume) NORMAL NORMAL Urine leukocyte esterase detection by dipstick 2+ NEGATIVE Automated urine sediment erythrocyte count by microscopy (number/high power field) [HPF] NRG Automated urine sediment leukocyte count by microscopy (number/high power field ) [HPF] NRG Bacteria detection in urine sediment by light microscopy LARGE NRG Squamous epithelial cells detection in urine sediment by light microscopy 2-5 NRG Crystals detection in urine sediment by light microscopy NONE NRG Casts detection in urine sediment by light microscopy NONE NRG Mucus detection in urine sediment by light microscopy NEGATIVE NRG Complete urinalysis with reflex to culture YES NRG Bacterial urine culture - 09/27/17 00:50 Bacterial urine culture [id number] NRG COLONY COUNT >100,000/ML NRG FTX;REPORTABLE SENSITIVITY REPORTED 09/28 07:30 NRG Bacterial susceptibility panel - 09/27/17 00:50 Gentamicin susceptibility test by minimum inhibitory concentration < = NRG Trimethoprim/sulfamethoxazole susceptibility test by minimum inhibitoryconcentration <= NRG Tobramycin susceptibility test by minimum inhibitory concentration < = NRG Cefazolin susceptibility test by minimum inhibitory concentration < = NRG Ceftriaxone susceptibility test by minimum inhibitory concentration <= NRG Piperacillin/tazobactam susceptibility test by minimum inhibitory concentration <= NRG Ciprofloxacin susceptibility test by minimum inhibitory concentration <= NRG Meropenem susceptibility test by minimum inhibitory concentration < = NRG Nitrofurantoin susceptibility test by minimum inhibitory concentration <= NRG Aztreonam susceptibility test by minimum inhibitory concentration < = NRG [id number] - 04/26/18 15:10 Serum or plasma urea nitrogen measurement (mass/volume) 27 mg/dL 7-18 Serum or plasma creatinine measurement (mass/volume) 1.20 mg/dL 0.60-1.30 Serum or plasma urea nitrogen/creatinine mass ratio 23 NRG Serum or plasma creatinine measurement with calculation of estimated glomerular filtration rate 44 NRG Complete blood count (CBC) with automated white blood cell (WBC) differential - 04/26/18 17:35 Blood leukocytes automated count (number/volume) 21.0 10*3/uL 4.3-11.0 Blood erythrocytes automated count (number/volume) 4.15 10*6/uL 4.35-5.85 Venous blood hemoglobin measurement (mass/volume) 12.3 g/dL 11.5-16.0 Blood hematocrit (volume fraction) 37 % 35-52 Automated erythrocyte mean corpuscular volume 88 [foz_us] 80-99 Automated erythrocyte mean corpuscular hemoglobin (mass per erythrocyte) 30 pg 25-34 Automated erythrocyte mean corpuscular hemoglobin concentration measurement ( mass/volume) 34 g/dL 32-36 Automated erythrocyte distribution width ratio 14.1 % 10.0-14.5 Automated blood platelet count (count/volume) 372 10*3/uL 130-400 Automated blood platelet mean volume measurement 8.9 [foz_us] 7.4-10.4 Automated blood neutrophils/100 leukocytes 84 % 42-75 Automated blood lymphocytes/100 leukocytes 11 % 12-44 Blood monocytes/100 leukocytes 5 % 0-12 Automated blood eosinophils/100 leukocytes 0 % 0-10 Automated blood basophils/100 leukocytes 0 % 0-10 Blood neutrophils automated count (number/volume) 17.6 10*3 1.8-7.8 Blood lymphocytes automated count (number/volume) 2.3 10*3 1.0-4.0 Blood monocytes automated count (number/volume) 1.1 10*3 0.0-1.0 Automated eosinophil count 0.1 10*3/uL 0.0-0.3 Automated blood basophil count (count/volume) 0.1 10*3/uL 0.0-0.1 Whole blood basic metabolic panel - 04/26/18 17:35 Serum or plasma sodium measurement (moles/volume) 124 mmol/L 135-145 Serum or plasma potassium measurement (moles/volume) 3.7 mmol/L 3.6-5.0 Serum or plasma chloride measurement (moles/volume) 89 mmol/L 98-107 Carbon dioxide 24 mmol/L 21-32 Serum or plasma anion gap determination (moles/volume) 11 mmol/L 5-14 Serum or plasma urea nitrogen measurement (mass/volume) 25 mg/dL 7-18 Serum or plasma creatinine measurement (mass/volume) 1.12 mg/dL 0.60-1.30 Serum or plasma urea nitrogen/creatinine mass ratio 22 NRG Serum or plasma creatinine measurement with calculation of estimated glomerular filtration rate 47 NRG Serum or plasma glucose measurement (mass/volume) 136 mg/dL 70-105 Serum or plasma calcium measurement (mass/volume) 9.6 mg/dL 8.5-10.1 Blood manual differential performed detection - 04/26/18 17:35 Blood monocytes/100 leukocytes 3 % NRG Manual blood segmented neutrophils/100 leukocytes 79 % NRG Blood band neutrophils/100 leukocytes 2 % NRG Manual blood lymphocytes/100 leukocytes 16 % NRG Manual eosinophils/100 leukocytes in nose 0 % NRG Manual blood basophils/100 leukocytes 0 % NRG Blood erythrocyte morphology finding identification NORMAL NRG Serum or plasma troponin i.cardiac measurement (mass/volume) - 04/26/18 17:35 Serum or plasma troponin i.cardiac measurement (mass/volume) < ng/ mL <0.30 Whole blood basic metabolic panel - 04/27/18 04:22 Serum or plasma sodium measurement (moles/volume) 129 mmol/L 135-145 Serum or plasma potassium measurement (moles/volume) 3.4 mmol/L 3.6-5.0 Serum or plasma chloride measurement (moles/volume) 94 mmol/L 98-107 Carbon dioxide 23 mmol/L 21-32 Serum or plasma anion gap determination (moles/volume) 12 mmol/L 5-14 Serum or plasma urea nitrogen measurement (mass/volume) 23 mg/dL 7-18 Serum or plasma creatinine measurement (mass/volume) 0.90 mg/dL 0.60-1.30 Serum or plasma urea nitrogen/creatinine mass ratio 26 NRG Serum or plasma creatinine measurement with calculation of estimated glomerular filtration rate > NRG Serum or plasma glucose measurement (mass/volume) 99 mg/dL 70-105 Serum or plasma calcium measurement (mass/volume) 9.5 mg/dL 8.5-10.1 Complete blood count (CBC) with automated white blood cell (WBC) differential - 04/27/18 04:22 Blood leukocytes automated count (number/volume) 17.1 10*3/uL 4.3-11.0 Blood erythrocytes automated count (number/volume) 3.80 10*6/uL 4.35-5.85 Venous blood hemoglobin measurement (mass/volume) 11.4 g/dL 11.5-16.0 Blood hematocrit (volume fraction) 34 % 35-52 Automated erythrocyte mean corpuscular volume 88 [foz_us] 80-99 Automated erythrocyte mean corpuscular hemoglobin (mass per erythrocyte) 30 pg 25-34 Automated erythrocyte mean corpuscular hemoglobin concentration measurement ( mass/volume) 34 g/dL 32-36 Automated erythrocyte distribution width ratio 14.5 % 10.0-14.5 Automated blood platelet count (count/volume) 381 10*3/uL 130-400 Automated blood platelet mean volume measurement 8.9 [foz_us] 7.4-10.4 Automated blood neutrophils/100 leukocytes 74 % 42-75 Automated blood lymphocytes/100 leukocytes 19 % 12-44 Blood monocytes/100 leukocytes 6 % 0-12 Automated blood eosinophils/100 leukocytes 2 % 0-10 Automated blood basophils/100 leukocytes 0 % 0-10 Blood neutrophils automated count (number/volume) 12.5 10*3 1.8-7.8 Blood lymphocytes automated count (number/volume) 3.2 10*3 1.0-4.0 Blood monocytes automated count (number/volume) 1.0 10*3 0.0-1.0 Automated eosinophil count 0.3 10*3/uL 0.0-0.3 Automated blood basophil count (count/volume) 0.0 10*3/uL 0.0-0.1 PT panel in platelet poor plasma by coagulation assay - 04/27/18 04:22 Prothrombin time (PT) in platelet poor plasma by coagulation assay 20.6 s 12.2-14.7 INR in platelet poor plasma or blood by coagulation assay 1.8 0.8-1.4 Complete blood count (CBC) with automated white blood cell (WBC) differential - 04/28/18 04:05 Blood leukocytes automated count (number/volume) 13.1 10*3/uL 4.3-11.0 Blood erythrocytes automated count (number/volume) 3.58 10*6/uL 4.35-5.85 Venous blood hemoglobin measurement (mass/volume) 10.4 g/dL 11.5-16.0 Blood hematocrit (volume fraction) 32 % 35-52 Automated erythrocyte mean corpuscular volume 90 [foz_us] 80-99 Automated erythrocyte mean corpuscular hemoglobin (mass per erythrocyte) 29 pg 25-34 Automated erythrocyte mean corpuscular hemoglobin concentration measurement ( mass/volume) 32 g/dL 32-36 Automated erythrocyte distribution width ratio 14.5 % 10.0-14.5 Automated blood platelet count (count/volume) 333 10*3/uL 130-400 Automated blood platelet mean volume measurement 8.9 [foz_us] 7.4-10.4 Automated blood neutrophils/100 leukocytes 60 % 42-75 Automated blood lymphocytes/100 leukocytes 28 % 12-44 Blood monocytes/100 leukocytes 8 % 0-12 Automated blood eosinophils/100 leukocytes 4 % 0-10 Automated blood basophils/100 leukocytes 0 % 0-10 Blood neutrophils automated count (number/volume) 7.9 10*3 1.8-7.8 Blood lymphocytes automated count (number/volume) 3.7 10*3 1.0-4.0 Blood monocytes automated count (number/volume) 1.0 10*3 0.0-1.0 Automated eosinophil count 0.5 10*3/uL 0.0-0.3 Automated blood basophil count (count/volume) 0.1 10*3/uL 0.0-0.1 PT panel in platelet poor plasma by coagulation assay - 04/28/18 04:05 Prothrombin time (PT) in platelet poor plasma by coagulation assay 24.3 s 12.2-14.7 INR in platelet poor plasma or blood by coagulation assay 2.2 0.8-1.4 Whole blood basic metabolic panel - 04/28/18 04:05 Serum or plasma sodium measurement (moles/volume) 133 mmol/L 135-145 Serum or plasma potassium measurement (moles/volume) 3.5 mmol/L 3.6-5.0 Serum or plasma chloride measurement (moles/volume) 100 mmol/L 98-107 Carbon dioxide 23 mmol/L 21-32 Serum or plasma anion gap determination (moles/volume) 10 mmol/L 5-14 Serum or plasma urea nitrogen measurement (mass/volume) 21 mg/dL 7-18 Serum or plasma creatinine measurement (mass/volume) 0.86 mg/dL 0.60-1.30 Serum or plasma urea nitrogen/creatinine mass ratio 24 NRG Serum or plasma creatinine measurement with calculation of estimated glomerular filtration rate > NRG Serum or plasma glucose measurement (mass/volume) 93 mg/dL 70-105 Serum or plasma calcium measurement (mass/volume) 9.3 mg/dL 8.5-10.1 Encounters ACCT No. Visit Date/Time Discharge Status Pt. Type Provider Facility Loc./Unit Complaint [id number] 04/26/2018 16:25:00 04/28/2018 13:00:00 DIS Inpatient JUSTINE KEATING, TRACEE Gates [facility] 4TH BILAT PE [id number] 04/26/2018 15:15:00 04/26/2018 23:59:59 CLS Preadmit CRICKET ARAUJO APRN [facility] RAD SOB [id number] 04/26/2018 15:00:00 04/26/2018 23:59:59 CLS Outpatient CRICKET ARAUJO APRN [facility] RAD SOB [id number] 04/16/2018 09:37:00 04/16/2018 23:59:59 CLS Outpatient SUSIE RAMIREZ MD [facility] ONC [id number] 04/15/2018 12:45:00 04/15/2018 23:59:59 CLS Outpatient Kody CARDOZO MD [facility] CARD SOB [id number] 03/22/2018 11:05:00 03/22/2018 23:59:59 CLS Outpatient BRAD HDEZ MD [facility] RAD THORACIC BACK PAIN [id number] 03/17/2018 15:31:00 03/17/2018 23:59:59 CLS Preadmit Kody CARDOZO MD [facility] RAD SOB [id number] 03/10/2018 15:30:00 03/10/2018 23:59:59 CLS Outpatient CRICKET ARAUJO APRN [facility] RT SOB, ASTHMA [id number] 01/15/2018 10:50:00 02/05/2018 00:01:00 DIS Outpatient SUSIE RAMIREZ MD [facility] ONC [id number] 10/16/2017 13:08:00 12/24/2017 00:01:00 DIS Outpatient SUSIE RAMIREZ MD [facility] ONC [id number] 11/13/2017 09:47:00 11/13/2017 23:59:59 CLS Outpatient ALVAREZ DUMONT APRN [facility] RAD SCREENING [id number] 09/26/2017 22:42:00 09/27/2017 02:00:00 DIS Emergency SPIKE NIX MD [facility] ER FALL INJ SHOULDER [id number] 09/01/2017 15:31:00 09/01/2017 23:59:59 CLS Preadmit CRICKET ARAUJO APRN [facility] RT SOB,ASTHMA [id number] 07/13/2017 12:30:00 07/18/2017 13:50:00 DIS Inpatient Kody CARDOZO MD [facility] ICU SYMPTOMATIC BRADYCARDIA, DEHYDRATION W/ ELECTROLYT [id number] 05/21/2017 10:29:00 05/21/2017 23:59:59 CLS Outpatient ESTEFANIA CLEMENTE MD [facility] RAD M48.50XA [id number] 11/04/2016 13:28:00 11/04/2016 23:59:59 CLS Outpatient HUGHESBen LEONG LOY Feliberto [facility] RAD Z12.39 [id number] 10/03/2016 06:43:00 10/03/2016 09:51:00 DIS Outpatient BERYL KEATING, LIZZY Aguilar [facility] ENDO IBS, LUQ/LLQ PAIN, HX COLON POLYPS [id number] 10/01/2016 05:35:00 10/01/2016 23:59:59 CLS Outpatient BERYL KEATING, LIZZY Aguilar [facility] PREOP ISB,LUQ PAIN,LLQ PAIN [id number] 02/24/2016 20:27:00 02/24/2016 23:00:00 DIS Emergency BOYD KEATING, SPIKE Bernal [facility] ER HTN [id number] 01/01/2016 07:49:00 01/01/2016 23:59:59 CLS Outpatient JUANJO KEATING, DARCI Hartmann [facility] RAD HEADACHE,DIPLOPIA [id number] 11/23/2015 23:30:00 11/24/2015 01:26:00 DIS Emergency JAYA DOZACKARYA K [facility] ER LAWSON,VOMITING,ANXIETY [id number] 08/13/2015 12:43:00 08/13/2015 14:13:00 DIS Emergency VARGAS DURAND DO L [facility] ER IRR HEART RATE [id number] 02/16/2018 10:37:00 Document Registration [id number] 11/23/2015 15:31:00 11/23/2015 19:37:00 DIS Emergency Yeager Curt [facility] ED fall [id number] 11/24/2015 05:16:39 Document Registration [id number] 11/24/2015 05:16:38 Document Registration [id number] 12/18/2017 09:12:00 12/18/2017 23:59:00 DIS Outpatient WINTERBRAD DE PAZ [id number] 10/22/2017 15:50:00 10/22/2017 23:59:00 DIS Outpatient BRAD MAX [id number] 04/08/2017 10:00:00 06/26/2017 14:54:00 DIS Outpatient Jazmyn Duarte [id number] 12/05/2016 09:50:00 12/05/2016 23:59:00 DIS Outpatient WINTERBRAD DE PAZ [id number] 07/09/2016 09:00:00 10/08/2016 13:15:00 DIS Outpatient ANNA BRAD [id number] 06/18/2016 11:32:00 06/27/2016 11:15:00 DIS Inpatient ANNA [facility] ER [id number] 06/18/2016 13:23:06 Document Registration [id number] 11/22/2015 00:00:00 Document Registration [id number] 01/17/2017 08:36:00 Document Registration [id number] 07/02/2017 14:00:00 07/02/2017 23:59:59 CLS Outpatient BRYN KEATING, ESTEFANIA [facility]
[2018-04-30 21:50] LABS: BASOPHILS % (AUTO) 0 % (0-10); EOSINOPHILS # (AUTO) 0.2 10^3/uL (0.0-0.3); EOSINOPHILS % (AUTO) 1 % (0-10); HEMATOCRIT 33 % (35-52); HEMOGLOBIN 11.1 G/DL (11.5-16.0); LYMPHOCYTES # (AUTO) 2.4 X 10^3 (1.0-4.0); LYMPHOCYTES % (AUTO) 13 % (12-44); MEAN CORPUSCULAR HEMOGLOBIN 29 PG (25-34); MEAN CORPUSCULAR HGB CONC 33 G/DL (32-36); MEAN CORPUSCULAR VOLUME 88 FL (80-99); MEAN PLATELET VOLUME 8.7 FL (7.4-10.4); MONOCYTES # (AUTO) 0.8 X 10^3 (0.0-1.0); MONOCYTES % (AUTO) 5 % (0-12); NEUTROPHILS # (AUTO) 14.3 X 10^3 (1.8-7.8); NEUTROPHILS % (AUTO) 81 % (42-75); PLATELET COUNT 406 10^3/uL (130-400); RED CELL DISTRIBUTION WIDTH 14.2 % (10.0-14.5); WHITE BLOOD COUNT 17.7 10^3/uL (4.3-11.0)
[2018-04-30 22:02] LABS: BAND NEUTROPHILS 4 %; BASOPHILS % (MANUAL) 0 %; EOSINOPHILS % (MANUAL) 2 %; LYMPHOCYTES % (MANUAL) 10 %; METAMYELOCYTES % 1 %; MONOCYTES % (MANUAL) 4 %; NEUTROPHILS % (MANUAL) 79 %; RBC MORPH NORMAL
[2018-04-30 22:17] LABS: ALANINE AMINOTRANSFERASE 15 U/L (0-55); ALBUMIN 3.6 GM/DL (3.2-4.5); ALKALINE PHOSPHATASE 64 U/L (40-136); BILIRUBIN,TOTAL 0.3 MG/DL (0.1-1.0); BUN/CREATININE RATIO 18; CALCIUM 9.3 MG/DL (8.5-10.1); CARBON DIOXIDE 23 MMOL/L (21-32); CHLORIDE 93 MMOL/L (98-107); CREATININE SERUM 1.17 MG/DL (0.60-1.30); GFR ESTIMATED 45; GLUCOSE 141 MG/DL (70-105); POTASSIUM 3.8 MMOL/L (3.6-5.0); SODIUM 129 MMOL/L (135-145); TOTAL PROTEIN 6.5 GM/DL (6.4-8.2)
[2018-04-30] MEDS ORDERED: NS IV 500 ML 500 ML IV SCH (22:30)
--- NOTE | 2018-04-30 22:40 | Diagnostic Imaging Report ---
INDICATION: Upper back pain. COMPARISON: 02/16/2018. EXAMINATION: Single frontal view of the chest was obtained. FINDINGS: Normal heart size and pulmonary vascularity. The lungs show low inspiratory volumes, but are otherwise clear. No large pleural effusion or pneumothorax is seen. The visualized osseous structures show no acute abnormalities. Left-sided dual-lead pacemaker is noted. IMPRESSION: No acute cardiopulmonary process. Dictated by: Dictated on workstation # [id number]
[2018-04-30] MEDS ORDERED: MAGN400T39 PO (22:56)
[2018-04-30 22:57] LABS: BILIRUBIN,URINE NEGATIVE (NEGATIVE); CLARITY,URINE CLEAR; COLOR,URINE YELLOW; GLUCOSE, URINE (UA) NEGATIVE (NEGATIVE); KETONES,URINE NEGATIVE (NEGATIVE); LEUKOCYTE ESTERASE ,URINE 1+ (NEGATIVE); NITRITE,URINE NEGATIVE (NEGATIVE); PH,URINE 5 (5-9); PROTEIN,URINE NEGATIVE (NEGATIVE); UROBILINOGEN,URINE NORMAL (NORMAL)
[2018-04-30] MEDS ORDERED: MAGNESIUM OXIDE (MAG-OX)400 MG TAB PO ONE (23:00)
[2018-04-30 23:06] LABS: BACTERIA,URINE NEGATIVE /HPF; RBC,URINE RARE /HPF; WBC,URINE RARE /HPF
[2018-04-30 23:24] VITALS: BP 121/66
== END 2018-04-30 23:20 ==
LOC: EDUNIT# 21:33 → ER 21:35
DX: I26.99 Other pulmonary embolism without acute cor pulmonale (principal); F41.9 Anxiety disorder, unspecified; F03.90 Unspecified dementia, unspecified severity, without behavioral disturbance, psychotic disturbance, mood disturbance, and anxiety; J44.9 Chronic obstructive pulmonary disease, unspecified; E78.00 Pure hypercholesterolemia, unspecified; I10 Essential (primary) hypertension; Z90.710 Acquired absence of both cervix and uterus; Z87.19 Personal history of other diseases of the digestive system; Z86.010 Personal history of colon polyps; Z98.890 Other specified postprocedural states; Z95.0 Presence of cardiac pacemaker; Z88.0 Allergy status to penicillin; Z88.4 Allergy status to anesthetic agent; Z88.5 Allergy status to narcotic agent; Z88.1 Allergy status to other antibiotic agents; Z88.8 Allergy status to other drugs, medicaments and biological substances; Z79.51 Long term (current) use of inhaled steroids; Z79.01 Long term (current) use of anticoagulants
CPT/HCPCS: 36415; 71045; 80053; 81000; 83735; 83880; 84484; 85007; 85027; 93005

== ENCOUNTER 2018-06-01 13:36 | Emergency (ER) | payer MEDICARE, MEDICAID ==
[~2018-06-01] VITALS: Ht 162.6 cm; Wt 95.3 kg
[~2018-06-01 13:36] MED LIST changes: +MAGN400T39 PO
[2018-06-01] MEDS ORDERED: NS IV 500 ML 500 ML IV SCH (13:45)
[2018-06-01] MEDS ORDERED: fentaNYL INJECTION 100 MCG/2 ML AMP IVP PRN (13:45)
[2018-06-01] MEDS ORDERED: ONDANSETRON 4 MG/2 ML (SDV) Z0FRAN IVP ONE (13:45)
--- NOTE | 2018-06-01 13:46 | ED Head Injury ---
General Stated Complaint: FALL;HEAD INJ Source: patient Exam Limitations: no limitations History of Present Illness Date Seen by Provider: Jun 01, 2018 Time Seen by Provider: 13:43 Initial Comments To ER per EMS from via [facility] with reports of a fall and head injury. She was walking to the bathroom when she fell. She is uncertain why she fell. Staff did hear her fall and by the time they arrived in the room she was alert. She did vomit once for staph and vomited again for EMS. She complains of a headache. Denies neck pain. Complains of some right-sided low back pain. She is on Xarelto Occurred: just prior to arrival Severity: moderate Location: occipital Method of Injury: fell Loss of Consciousness: unsure Associated Systoms: Headaches, Nausea/Vomiting Allergies and Home Medications Allergies Coded Allergies: Penicillins (Verified Allergy, Mild, 08/13/15) ketorolac (Verified Allergy, Mild, 08/13/15) morphine (Verified Allergy, Mild, 08/13/15) tetracycline (Verified Allergy, Mild, 08/13/15) paroxetine (Unverified Allergy, Unknown, 02/24/16) Home Medications Acetaminophen 500 Mg Tablet, 1,000 MG PO DAILY, (Reported) TAKES 2 (500 MG) TABLETS Acetaminophen 500 Mg Tablet, 1,000 MG PO BID PRN for PAIN-MILD, (Reported) Amlodipine Besylate 5 Mg Tablet, 5 MG PO HS, (Reported) Budesonide 3 Mg Capdr...er, 9 MG PO DAILY, (Reported) TAKES 3 (3MG) CAPSULES Calcium Carbonate/Vitamin D3 1 Each Tablet, 1 TAB PO DAILY, (Reported) Cholestyramine (with Sugar) 4 Gm Powd.pack, 4 GM PO DAILY PRN for LOOSE STOOLS, (Reported) Citalopram Hydrobromide 10 Mg Tablet, 30 MG PO HS, (Reported) TAKES 3 (10 MG) TABLETS Diphenhydramine HCl 25 Mg Capsule, 25 MG PO BID PRN for ITCHING, (Reported) Estradiol 42.5 Gm Cream.appl, VG HS, (Reported) APPLY PEA SIZED AMOUNT TO OUTER VAGINAL AREA AT BEDTIME Estradiol 10 Mcg Tablet, 10 MCG VG TuFr, (Reported) Fexofenadine HCl 180 Mg Tablet, 180 MG PO DAILY, (Reported) Fluticasone Propionate 16 Gm [place].susp, 1 SPRAY NS DAILY, (Reported) Folic Acid 1 Mg Tablet, 1 MG PO DAILY, (Reported) Hydrochlorothiazide 25 Mg Tablet, 25 MG PO DAILY, (Reported) Ibandronate Sodium 150 Mg Tablet, 150 MG PO EVERY 3 MONTHS, (Reported) DUE NEXT 05-29-18 Lisinopril 20 Mg Tablet, 20 MG PO BID, (Reported) Loperamide HCl 2 Mg Capsule, 2 MG PO Q8H PRN for LOOSE STOOLS, (Reported) Lorazepam 0.5 Mg Tablet, 0.5 MG PO BID, (Reported) Magnesium Oxide 400 Mg Tablet, 400 MG PO BID Prescribed by: MARTA BLAIR on 04/30/182255 Mometasone Furoate 220 Mcg Aer.pow.ba, 1 PUFF IH HS, (Reported) Montelukast Sodium 10 Mg Tablet, 10 MG PO HS, (Reported) Multivitamin 1 Each Tablet, 1 TAB PO DAILY, (Reported) Omeprazole 20 Mg Capsule.dr, 20 MG PO DAILY, (Reported) Polyethylene Glycol 3350 17 Gm Powd.pack, 8.5 GM PO DAILY PRN for CONSTIPATION- 2ND LINE, (Reported) Pravastatin Sodium 40 Mg Tablet, 40 MG PO HS, (Reported) Quetiapine Fumarate 100 Mg Tablet, 100 MG PO HS, (Reported) Rivaroxaban 15 Mg Tablet, 15 MG PO BID@07,17 BIN [id number] [facility] [id number] Prescribed by: TRACEE FLETCHER on 04/28/18 0910 Rivaroxaban 20 Mg Tablet, 20 MG PO DAILY@1700 BIN [id number] [facility] [id number] Prescribed by: TRACEE FLETCHER on 04/28/18 09 Rivastigmine Tartrate 3 Mg Capsule, 3 MG PO BID, (Reported) Tramadol HCl 50 Mg Tablet, 50 MG PO TID PRN for BACK PAIN, (Reported) Triamcinolone Acetonide 80 Gm Oint...g., TP HS, (Reported) APPLIES TO LABIA MAJORA / MAY MIX WITH ESTRACE CREAM Patient Home Medication List Home Medication List Reviewed: Yes Review of Systems Review of Systems Constitutional: see HPI Eyes: No Symptoms Reported Ears, Nose, Mouth, Throat: no symptoms reported Respiratory: no symptoms reported Cardiovascular: no symptoms reported Gastrointestinal: nausea, vomiting Genitourinary: no symptoms reported Musculoskeletal: no symptoms reported Skin: no symptoms reported Psychiatric/Neurological: See HPI, Headache Endocrine: No Symptoms Reported Hematologic/Lymphatic: No Symptoms Reported Past Gsmoszr-Ndgzuu-Ccapnd Hx Patient Social History Alcohol Beverage of Choice: Wine 2nd Hand Smoke Exposure: No Recent Hopitalizations: Yes Immunizations Up To Date Tetanus Booster (TDap): Unknown Date of Pneumonia Vaccine: Feb 10, 2017 Date of Influenza Vaccine: Apr 06, 2018 Seasonal Allergies Seasonal Allergies: No Past Medical History Surgeries: Yes Abdominal, Appendectomy, Gallbladder, 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, Joint Replacement, Orthopedic, Pacemaker Respiratory: Yes (ALPHA 1 ANTITRIPSIN DEFICIENCY) Asthma, Pulmonary Embolism, COPD Currently Using CPAP: No Currently Using BIPAP: No Cardiac: Yes (PACEMAKER;"VASOVAGAL NERVE PROBLEMS" ) High Cholesterol, Hypertension Neurological: Yes Dementia 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 Disorders: No Female 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 Disorders: Denies, Endometriosis 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 History: 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, Menopausal Sexually Transmitted Disease: No HIV/AIDS: No Genitourinary: Yes (INCONTINENCE) Gastrointestinal: Yes (BLEEDING ULCER X 3; PERFORATED ULCER 2006; 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) Gastrointestinal Bleed, Chronic Diarrhea, Polyps, Ulcer, Irritable Bowel Musculoskeletal: Yes (MOSTLY IN HANDS, KNEES, BACK; RIGHT SHOULDER REPLACEMENT) Degenerate Disk Disease, Arthritis, Chronic Back Pain, Fractures Endocrine: No HEENT: Yes Cataract Loss of Vision: Denies Hearing Impairment: Hard of Hearing Cancer: No Psychosocial: Yes Anxiety Integumentary: No Blood Disorders: No Family Medical History Blood clots (sister had a blood clot in the brain which caused her  in 2010) Physical Exam Vital Signs Vital Signs - First Documented 06/01/18 13:40 Temp 97.5 Pulse 77 Resp 18 B/P (MAP) 112/47 (68) Pulse Ox 96 Capillary Refill : Height, Weight, BMI Height: 5'3.00" Weight: 141lbs. 9.0oz. 64.611603eq; 25.1 BMI Method:Stated General Appearance: WD/WN, no apparent distress HEENT: PERRL/EOMI, normal ENT inspection Neck: non-tender, full range of motion; No tender lateral, No tender midline Respiratory: normal breath sounds, no respiratory distress, no accessory muscle use Extremities: normal range of motion, non-tender Psychiatric: alert, oriented x 3 Crainal Nerves: normal hearing, normal speech, PERRL Skin: normal color, warm/dry Mcdonald Coma Score Best Eye Response: (4) Open Spontaneously Best Verbal Response: (5) Oriented Best Motor Response: (6) Obeys Commands Mcdonald Total: 15 Progress/Results/Core Measures Results/Orders Lab Results Laboratory Tests Test 06/01/18 13:44 06/01/18 15:25 Range/Units White Blood Count 14.5 H 4.3-11.0 10^3/uL Red Blood Count 3.27 L 4.35-5.85 10^6/uL Hemoglobin 9.8 L 11.5-16.0 G/DL Hematocrit 29 L 35-52 % Mean Corpuscular Volume 88 80-99 FL Mean Corpuscular Hemoglobin 30 25-34 PG Mean Corpuscular Hemoglobin Concent 34 32-36 G/DL Red Cell Distribution Width 14.4 10.0-14.5 % Platelet Count 432 H 130-400 10^3/uL Mean Platelet Volume 8.8 7.4-10.4 FL Neutrophils (%) (Auto) 63 42-75 % Lymphocytes (%) (Auto) 26 12-44 % Monocytes (%) (Auto) 8 0-12 % Eosinophils (%) (Auto) 3 0-10 % Basophils (%) (Auto) 0 0-10 % Neutrophils # (Auto) 9.1 H 1.8-7.8 X 10^3 Lymphocytes # (Auto) 3.7 1.0-4.0 X 10^3 Monocytes # (Auto) 1.1 H 0.0-1.0 X 10^3 Eosinophils # (Auto) 0.5 H 0.0-0.3 10^3/uL Basophils # (Auto) 0.1 0.0-0.1 10^3/uL Neutrophils % (Manual) 71 % Lymphocytes % (Manual) 18 % Monocytes % (Manual) 6 % Eosinophils % (Manual) 1 % Band Neutrophils 4 % Blood Morphology Comment NORMAL Sodium Level 126 L 135-145 MMOL/L Potassium Level 3.9 3.6-5.0 MMOL/L Chloride Level 97 L 98-107 MMOL/L Carbon Dioxide Level 17 L 21-32 MMOL/L Anion Gap 12 5-14 MMOL/L Blood Urea Nitrogen 23 H 7-18 MG/DL Creatinine 1.26 0.60-1.30 MG/DL Estimat Glomerular Filtration Rate 41 BUN/Creatinine Ratio 18 Glucose Level 137 H 70-105 MG/DL Calcium Level 9.0 8.5-10.1 MG/DL Corrected Calcium 9.4 8.5-10.1 MG/DL Total Bilirubin 0.4 0.1-1.0 MG/DL Aspartate Amino Transf (AST/SGOT) 15 5-34 U/L Alanine Aminotransferase (ALT/SGPT) 10 0-55 U/L Alkaline Phosphatase 64 40-136 U/L Total Protein 5.9 L 6.4-8.2 GM/DL Albumin 3.5 3.2-4.5 GM/DL Urine Color YELLOW Urine Clarity SLIGHTLY CLOUDY Urine pH 5 5-9 Urine Specific [place] 1.015 L 1.016-1.022 Urine Protein NEGATIVE NEGATIVE Urine Glucose (UA) NEGATIVE NEGATIVE Urine Ketones NEGATIVE NEGATIVE Urine Nitrite NEGATIVE NEGATIVE Urine Bilirubin NEGATIVE NEGATIVE Urine Urobilinogen NORMAL NORMAL MG/DL Urine Leukocyte Esterase 2+ H NEGATIVE Urine RBC (Auto) 1+ H NEGATIVE Urine RBC NONE /HPF Urine WBC 10-25 H /HPF Urine Squamous Epithelial Cells NONE /HPF Urine Crystals NONE /LPF Urine Bacteria LARGE H /HPF Urine Casts NONE /LPF Urine Mucus NEGATIVE /LPF Urine Culture Indicated YES My Orders Orders - MARTA BLAIR APRN Ct Head/Cervical Spine Wo (06/01/18 13:42) Ct Lumbar Spine Wo (06/01/18 13:42) Cbc With Automated Diff (06/01/18 13:42) Comprehensive Metabolic Panel (06/01/18 13:42) Ua Culture If Indicated (06/01/18 13:42) Iv Heplock-Insert (Order) (06/01/18 13:42) Ns Iv 500 Ml (Sodium Chloride 0.9%) (06/01/18 13:45) Ondansetron Injection (Zofran Injectio (06/01/18 13:45) Fentanyl Injection (Sublimaze Injection (06/01/18 13:45) Manual Differential (06/01/18 13:44) Chest 1 View, Ap/Pa Only (06/01/18 14:05) Urine Culture (06/01/18 15:25) Medications Given in ED Current Medications Medications Dose Ordered Sig/Lee Route Start Time Stop Time Status Last Admin Dose Admin Fentanyl Citrate 25 mcg ONCE PRN IVP 06/01/18 13:45 06/01/18 14:00 25 MCG Ondansetron HCl 4 mg ONCE ONCE IVP 06/01/18 13:45 06/01/18 13:46 DC 06/01/18 14:00 4 MG Vital Signs/I&O 06/01/18 13:40 Temp 97.5 Pulse 77 Resp 18 B/P (MAP) 112/47 (68) Pulse Ox 96 Departure Communication (Admissions) 1506-cervical collar removed at this time Impression Primary Impression: concussion Additional Impressions: Chronic hyponatremia Left renal nodule Disposition: HOME, SELF-CARE Condition: Stable Departure-Patient Inst. Decision time for Depature: 16:06 Referrals: BRAD HDEZ MD (PCP/Family) Primary Care Physician Patient Instructions: Concussion, Adult (DC) Add. Discharge Instructions: Tylenol and Motrin for any headache which may persist for a couple of weeks along with some nausea intermittently. Return to ER for any concerns. Her sodium was low today as it has been for quite some time now. There is a nodule on the left kidney which could be further evaluated with ultrasound in the outpatient setting. Call your primary care provider tomorrow to schedule this. Copy Copies To 1: BRAD HDEZ MD, PETER J MANAGER GOLF Jun 01, 2018 13:45
[2018-06-01 13:49] LABS: BASOPHILS # (AUTO) 0.1 10^3/uL (0.0-0.1); BASOPHILS % (AUTO) 0 % (0-10); EOSINOPHILS # (AUTO) 0.5 10^3/uL (0.0-0.3); EOSINOPHILS % (AUTO) 3 % (0-10); HEMATOCRIT 29 % (35-52); HEMOGLOBIN 9.8 G/DL (11.5-16.0); LYMPHOCYTES # (AUTO) 3.7 X 10^3 (1.0-4.0); LYMPHOCYTES % (AUTO) 26 % (12-44); MEAN CORPUSCULAR HEMOGLOBIN 30 PG (25-34); MEAN CORPUSCULAR HGB CONC 34 G/DL (32-36); MEAN CORPUSCULAR VOLUME 88 FL (80-99); MEAN PLATELET VOLUME 8.8 FL (7.4-10.4); MONOCYTES # (AUTO) 1.1 X 10^3 (0.0-1.0); MONOCYTES % (AUTO) 8 % (0-12); NEUTROPHILS # (AUTO) 9.1 X 10^3 (1.8-7.8); NEUTROPHILS % (AUTO) 63 % (42-75); PLATELET COUNT 432 10^3/uL (130-400); RED BLOOD COUNT 3.27 10^6/uL (4.35-5.85); RED CELL DISTRIBUTION WIDTH 14.4 % (10.0-14.5); WHITE BLOOD COUNT 14.5 10^3/uL (4.3-11.0)
[2018-06-01 14:09] LABS: ALBUMIN 3.5 GM/DL (3.2-4.5); BILIRUBIN,TOTAL 0.4 MG/DL (0.1-1.0); CREATININE SERUM 1.26 MG/DL (0.60-1.30); POTASSIUM 3.9 MMOL/L (3.6-5.0); TOTAL PROTEIN 5.9 GM/DL (6.4-8.2)
[2018-06-01 14:13] LABS: BAND NEUTROPHILS 4 %; EOSINOPHILS % (MANUAL) 1 %; LYMPHOCYTES % (MANUAL) 18 %; MONOCYTES % (MANUAL) 6 %; NEUTROPHILS % (MANUAL) 71 %; RBC MORPH NORMAL
--- NOTE | 2018-06-01 14:55 | Diagnostic Imaging Report ---
EXAMINATION: Portable supine AP chest at at 234h. INDICATION: Fell, chest pain The heart size is within normal limits and stable when compared to 04/30/2018. The left-sided pacemaker seen previously is again evident and no different. There are chronic bony changes visualized but there is no sign of failure, pneumonia or a pleural effusion. There is no evidence for a contusion or pneumothorax either. However a small pneumothorax could be present yet undetected on a supine film such as this. The mediastinum is not widened. The osseous structures are intact. The total shoulder prosthesis on the right seen previously is partially visualized on this exam. IMPRESSION: There is no evidence for an acute cardiopulmonary abnormality. Dictated by: Dictated on workstation # [id number]
--- NOTE | 2018-06-01 14:58 | Diagnostic Imaging Report ---
PROCEDURE: CT head and CT cervical spine without contrast. TECHNIQUE: Multiple contiguous axial images were obtained through the brain and cervical spine without the use of intravenous contrast. Sagittal and coronal reformations through the cervical spine were then performed. INDICATION: Fell, head and neck pain. FINDINGS: CT head: This exam is less than optimal due to streak artifact related to the patient's dental fillings. There is no mass, shift of the midline, or hemorrhage to suggest an acute intracranial abnormality. The ventricles are not abnormally dilated and stable in size when compared to the prior exam of 11/24/2015. The cortical atrophy seen previously is again evident and no different. The bone windows show no sign of a fracture or of a destructive lesion. The previous study did show a healed fracture of the floor of the orbit on the left. There is no acute bony abnormality of the left orbit on this study. The right orbit is generally unremarkable. The sinuses are generally clear. IMPRESSION: 1. There is no evidence for an acute intracranial abnormality. When compared to the prior study, there has been no significant change. 2. If clinical concern regarding an underlying abnormality persists, then MRI will be recommended for further study. The reconstructed parasagittal images show the vertebrae heights and alignment to be similar to the prior exam of 09/26/2017. The degenerative disc and bony disease seen on the prior exam does not appear to progress. There is no fracture or acute bony abnormality identified either. There is no sign of retropharyngeal edema. The thyroid gland is is obscured by streak artifact but does not appear to have changed significantly since the prior study. The lung apices are clear. IMPRESSION: 1. There is no evidence for acute bony abnormality. 2. These results were discussed with Oral Finn APRN. Dictated on workstation # [id number]
--- NOTE | 2018-06-01 15:01 | Diagnostic Imaging Report ---
PROCEDURE: CT lumbar spine without contrast. TECHNIQUE: Multiple contiguous axial images were obtained through the lumbar spine without the use of intravenous contrast. Sagittal and coronal reformations were then performed. INDICATION: Fell, back pain. FINDINGS: There are no previous CT lumbar spine examinations available for comparison. The reconstructed sagittal images show the vertebral body heights and alignment to be within normal limits. The intervertebral disc spaces are fairly well maintained. The axial images fail to show any sign of a high-grade central stenosis. There is a long-standing incompletely healed fracture of the right transverse process of L3. There is also some deformity of the right transverse process of L4 and I suspect that this is a sequela of prior trauma as well. There is no acute fracture identified. There is no sign of a paraspinal mass; however, there is a suggestion of a soft tissue density along the midportion of the left kidney. This could merely be secondary to a variation of the renal cortex. Even so, I would recommend that ultrasound be performed for further study. IMPRESSION: 1. There is no evidence for an acute bony abnormality. There is no sign of a high-grade central stenosis either. 2. The fractures of the right transverse processes of L3 and L4 are felt to be long-standing in nature. 3. Ultrasound will be recommended for further evaluation of the questionable nodular density along the lateral aspect of the midportion of the left kidney. 4. These results were discussed with John Finn APRN. Dictated by: Dictated on workstation # [id number]
[2018-06-01 15:35] LABS: BILIRUBIN,URINE NEGATIVE (NEGATIVE); CLARITY,URINE SLIGHTLY CLOUDY; COLOR,URINE YELLOW; GLUCOSE, URINE (UA) NEGATIVE (NEGATIVE); KETONES,URINE NEGATIVE (NEGATIVE); LEUKOCYTE ESTERASE ,URINE 2+ (NEGATIVE); NITRITE,URINE NEGATIVE (NEGATIVE); PH,URINE 5 (5-9); PROTEIN,URINE NEGATIVE (NEGATIVE); UROBILINOGEN,URINE NORMAL (NORMAL)
[2018-06-01 15:43] LABS: BACTERIA,URINE LARGE /HPF
[2018-06-01] MEDS ORDERED: RX-ONDANSETRON 4 MG ODT (ZOFRAN) PPK #4 PO STA (16:07)
[2018-06-01] MEDS ORDERED: CEFDINIR 300 MG (OMNICEF) CAP PO ONE (16:15)
[2018-06-01 16:26] VITALS: BP 112/47
== END 2018-06-01 16:26 | disposition home or self-care (01) ==
LOC: ER 13:36 → EDUNIT# 13:36 → ER 16:26
DX: S06.0X9A Concussion with loss of consciousness of unspecified duration, initial encounter (principal); N28.89 Other specified disorders of kidney and ureter; E87.1 Hypo-osmolality and hyponatremia; J44.9 Chronic obstructive pulmonary disease, unspecified; E78.00 Pure hypercholesterolemia, unspecified; I10 Essential (primary) hypertension; F03.90 Unspecified dementia, unspecified severity, without behavioral disturbance, psychotic disturbance, mood disturbance, and anxiety; K21.9 Gastro-esophageal reflux disease without esophagitis; F41.9 Anxiety disorder, unspecified; R40.2142 Coma scale, eyes open, spontaneous, at arrival to emergency department; R40.2252 Coma scale, best verbal response, oriented, at arrival to emergency department; R40.2362 Coma scale, best motor response, obeys commands, at arrival to emergency department; Z86.010 Personal history of colon polyps; Z96.611 Presence of right artificial shoulder joint; Z87.19 Personal history of other diseases of the digestive system; Z86.711 Personal history of pulmonary embolism; Z88.0 Allergy status to penicillin; Z88.4 Allergy status to anesthetic agent; Z88.5 Allergy status to narcotic agent; Z88.1 Allergy status to other antibiotic agents; Z88.8 Allergy status to other drugs, medicaments and biological substances; Z79.52 Long term (current) use of systemic steroids; Z90.49 Acquired absence of other specified parts of digestive tract; Z90.710 Acquired absence of both cervix and uterus; Z95.0 Presence of cardiac pacemaker; Z79.51 Long term (current) use of inhaled steroids; Z79.01 Long term (current) use of anticoagulants; W18.30XA Fall on same level, unspecified, initial encounter; Y92.009 Unspecified place in unspecified non-institutional (private) residence as the place of occurrence of the external cause
CPT/HCPCS: 36415; 51701; 70450; 71045; 72125; 72131; 80053; 81000; 85007; 85027; 87077; 87088; 87186; 96374; 96375

== ENCOUNTER → 2018-06-15 | Outpatient (CLI) | payer MEDICARE, MEDICAID ==
[2018-06-15 08:41] LABS: HEMOGLOBIN 11.2 G/DL (11.5-16.0); MEAN PLATELET VOLUME 8.9 FL (7.4-10.4); RED BLOOD COUNT 3.94 10^6/uL (4.35-5.85); WHITE BLOOD COUNT 15.1 10^3/uL (4.3-11.0)
[2018-06-15 09:06] LABS: CALCIUM 9.9 MG/DL (8.5-10.1); CREATININE SERUM 1.18 MG/DL (0.60-1.30); POTASSIUM 3.6 MMOL/L (3.6-5.0)
--- NOTE | 2018-06-15 11:24 | Diagnostic Imaging Report ---
PROCEDURE: US Renal Bilateral. TECHNIQUE: Multiple real-time grayscale images were obtained over the kidneys in various projections bilaterally. INDICATION: Nodule in left kidney. FINDINGS: The CT lumbar spine exam performed on 06/01/2018 raised the question of a soft tissue nodule versus a cortical variant of the left kidney. On this study, there do appear to be several cysts associated with the left kidney. The largest of these measures 1.9 x 1.4 x 2.0 cm. These cysts have a generally benign appearance. There is no solid mass identified. There also appear to be cysts associated with the right kidney. The largest of these cysts measures 1.8 x 1.4 x 1.5 cm. These cysts also have a generally benign appearance. There is no evidence for hydronephrosis of either kidney. The renal cortices are thinned but normal in echogenicity. The bladder was imaged during the course of the exam. There is no obvious bladder abnormality evident. Both ureteral jets were noted. IMPRESSION: 1. There are cysts associated with both kidneys but there is no evidence for a solid renal mass. 2. The renal cortices are thinned but normal in echogenicity. 3. There is no obvious bladder abnormality evident. Dictated by: Dictated on workstation # [id number]
== END ==
LOC: RAD 08:17
PROVIDERS: ATTEND Physician Assistant
DX: N28.1 Cyst of kidney, acquired (principal)
CPT/HCPCS: 36415; 76770; 80048; 85027

== ENCOUNTER 2018-07-16 09:51 | Outpatient (RCR) | payer MEDICARE, MEDICAID ==
[~2018-07-16 09:51] MED LIST changes: -AMLO5TAB7 PO; +AMLO5TAB9 PO; -RIVA15TA PO; +RIVA15TA2 PO; -RIVA20TA PO; +RIVA20TA2 PO
[2018-07-16 10:19] LABS: BASOPHILS # (AUTO) 0.1 10^3/uL (0.0-0.1); BASOPHILS % (AUTO) 0 % (0-10); EOSINOPHILS # (AUTO) 0.6 10^3/uL (0.0-0.3); EOSINOPHILS % (AUTO) 5 % (0-10); HEMATOCRIT 38 % (35-52); HEMOGLOBIN 12.1 G/DL (11.5-16.0); LYMPHOCYTES # (AUTO) 2.8 X 10^3 (1.0-4.0); LYMPHOCYTES % (AUTO) 23 % (12-44); MEAN CORPUSCULAR HEMOGLOBIN 28 PG (25-34); MEAN CORPUSCULAR HGB CONC 32 G/DL (32-36); MEAN CORPUSCULAR VOLUME 87 FL (80-99); MEAN PLATELET VOLUME 9.2 FL (7.4-10.4); MONOCYTES # (AUTO) 0.9 X 10^3 (0.0-1.0); MONOCYTES % (AUTO) 7 % (0-12); NEUTROPHILS % (AUTO) 65 % (42-75); PLATELET COUNT 481 10^3/uL (130-400); RED CELL DISTRIBUTION WIDTH 14.2 % (10.0-14.5); WHITE BLOOD COUNT 12.2 10^3/uL (4.3-11.0)
[2018-07-16 10:38] LABS: ALBUMIN 4.1 GM/DL (3.2-4.5); BILIRUBIN,TOTAL 0.3 MG/DL (0.1-1.0); CALCIUM 9.9 MG/DL (8.5-10.1); CREATININE SERUM 1.16 MG/DL (0.60-1.30); POTASSIUM 4.1 MMOL/L (3.6-5.0); TOTAL PROTEIN 7.5 GM/DL (6.4-8.2)
[2018-08-12] MEDS ORDERED: POTA-51 PO (16:40)
[2018-08-30] MEDS ORDERED: METO-387 PO (14:56)
[2018-09-02] MEDS ORDERED: RIVA1.5C6 PO (11:06)
[2018-09-02] MEDS ORDERED: QUET100T PO (11:06)
[2018-09-02] MEDS ORDERED: LIDO76.5 TP (11:06)
[2018-09-02] MEDS ORDERED: ONDA4TAB11 PO (11:06)
[2018-09-02] MEDS ORDERED: GUAI120013 PO (11:06)
[2018-09-02] MEDS ORDERED: CHOL4PAC16 PO (11:06)
[2018-09-02] MEDS ORDERED: MULT-351 PO (11:06)
[2018-09-02] MEDS ORDERED: MOME13HF4 IH (11:06)
== END 2018-10-14 | disposition home or self-care (01) ==
LOC: ONC 09:51
PROVIDERS: ATTEND Internal Medicine Hematology & Oncology
DX: D72.829 Elevated white blood cell count, unspecified (principal); D47.3 Essential (hemorrhagic) thrombocythemia; E88.01 Alpha-1-antitrypsin deficiency; J44.9 Chronic obstructive pulmonary disease, unspecified; I10 Essential (primary) hypertension; R06.02 Shortness of breath; R07.9 Chest pain, unspecified; M17.0 Bilateral primary osteoarthritis of knee; F41.9 Anxiety disorder, unspecified; J45.909 Unspecified asthma, uncomplicated; R19.7 Diarrhea, unspecified; Z79.899 Other long term (current) drug therapy; Z95.0 Presence of cardiac pacemaker
CPT/HCPCS: 36415; 80053; 85025; 99213

== ENCOUNTER 2018-08-11 05:19 | Emergency (ER) | payer MEDICARE, MEDICAID ==
[~2018-08-11] VITALS: Ht 162.6 cm; Wt 95.5 kg
[~2018-08-11 05:19] MED LIST changes: +RIVA15TA PO; -RIVA15TA2 PO; +RIVA20TA PO; -RIVA20TA2 PO
--- OUTSIDE RECORDS SUMMARY | 2018-08-11 05:31 | XMS REPORT | Continuity of Care Document ---
Author Author [facility] Organization [facility] Address Unknown Phone Unavailable Allergies Active Description [...] (BULK) MODERATE DERMATOLOGICAL - PHUONG Yes ketorolac [id number] Drug Allergy Mild N/A 08/13/2015 Yes morphine [id number] Drug Allergy Mild N/A 08/13/2015 Yes Penicillins [id number] Drug Allergy Mild N/A 08/13/2015 Yes tetracycline [id number] Drug Allergy Mild N/A 08/13/2015 Yes aspirin NKMA Medium N/A 11/23/2015 Yes Paxil NKMA N/A N/ A 11/23/2015 Yes tetracycline NKMA Medium N/A 11/23/2015 Yes Toradol NKMA Severe N/A 11/23/2015 Yes paroxetine [id number] Drug Allergy Unknown N/A 02/24/2016 Medications Medication [...] 11/23/2015 IntraMuscular 0.5 mL, IntraMuscular, As Indicated HYDROcodone-acetaminophen(Gepp 5 mg-325 mg oral tablet) 1 tabs [...] MG 07/18/2016 Daily&0900 MultiVits (Thera M Plus) (zvruheki-jdou-bjtrkes) oral tablet TAB 06/19/2016 07/18/2016 Daily&0900 CALCIUM [...] FOR REMOVAL OF INTERNAL FIXATION DEVICE 11/24/2015 RANGELY ODILIA LEONG Ot F41.9 ANXIETY DISORDER, UNSPECIFIED 11/24/2015 RANGELY ODILIA LEONG Ot S01.112A LACERATION W/O FB OF LEFT EYELID AND PER [facility] FRACTURES OF OTH SKULL AND FACIAL BONES, 11/24/2015 RANGELY ODILIA LEONG Ot S06.0X0A CONCUSSION WITHOUT LOSS OF CONSCIOUSNESS 11/24/2015 [facility] W17.89XA OTHER FALL FROM ONE LEVEL TO ANOTHER, IN 11/24/2015 [facility] [facility]ILY (PRIVATE) [facility] 11/24/2015 JAYA ODILIA Baptiste Ot Y99.8 OTHER EXTERNAL CAUSE STATUS 11/26/2015 [facility] F41.9 ANXIETY DISORDER, UNSPECIFIED 11/26/2015 [facility] S01.112A LACERATION W/O FB OF LEFT EYELID AND PER 11/26/2015 [facility] S02.8XXA FRACTURES OF OTH SKULL AND FACIAL BONES, 11/26/2015 RANGELY ODILIA LEONG Ot S06.0X0A CONCUSSION WITHOUT LOSS OF CONSCIOUSNESS 11/26/2015 [facility] W17.89XA OTHER FALL FROM ONE LEVEL TO ANOTHER, IN 11/26/2015 [facility] ODILIA Baptiste Ot Y92.[address] IN SINGLE-FAMILY (PRIVATE) [facility] 11/26/2015 [facility] ODILIA Baptiste Ot Y99.8 OTHER EXTERNAL [...] Hartmann Ot 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 11/04/2016 JUANJO KEATING, ADRCI P Ot R51 HEADACHE 11/04/2016 LIZZY CORDOBA [...] M19.90 UNSPECIFIED OSTEOARTHRITIS, UNSPECIFIED 07/17/2017 Kody CARDOZO MD, Ot M54.9 DORSALGIA, UNSPECIFIED 07/17/2017 Kody [...] NIX MD Ot Y92.[address] IN [facility] NON-INSTITUT (PRIVATE 09/27/2017 SPIKE NIX MD, Ot [...] HISTORY OF (HEALED) TRAUMATIC F 09/28/2017 SPIKE NIX MD, Ot Z88.0 ALLERGY STATUS [...] UNSPECI 11/13/2017 SUSIE RAMIREZ MD Ot E88.01 MIZGP-4-WFBQUVLJLYH DEFICIENCY 11/13/2017 SUSIE RAMIREZ MD Ot F41.9 [...] 11/13/2017 SUSIE RAMIREZ MD Ot Z79.899 OTHER INTERMEDIATE (CURRENT) DRUG THERAPY 11/13/2017 SUSIE RAMIREZ MD Ot Z95.0 PRESENCE OF CARDIAC PACEMAKER 11/16/2017 ALVAREZ DUMONT MANAGER INPATIENT Ot Z12.31 ENCNTR SCREEN MAMMOGRAM FOR MALIGNANT NE 11/27/2017 SUSIE RAMIREZ MD Ot D47.3 ESSENTIAL (HEMORRHAGIC) THROMBOCYTHEMIA 11/27/2017 SUSIE RAMIREZ MD Ot D72.829 ELEVATED WHITE BLOOD CELL COUNT, UNSPECI 11/27/2017 SUSIE RAMIREZ MD Ot E88.01 PLTJK-6-NQRJMTFCEHO DEFICIENCY 11/27/2017 SUSIE RAMIREZ MD Ot F41.9 [...] 11/27/2017 SUSIE RAMIREZ MD Ot Z79.899 OTHER INTERMEDIATE (CURRENT) DRUG THERAPY 11/27/2017 SUSIE RAMIREZ MD Ot Z95.0 PRESENCE OF CARDIAC PACEMAKER 12/03/2017 ALVAREZ DUMONT MANAGER INPATIENT Ot Z12.31 ENCNTR SCREEN MAMMOGRAM FOR MALIGNANT NE 12/10/2017 ALVAREZ DUMONT MANAGER INPATIENT Ot Z12.31 ENCNTR SCREEN MAMMOGRAM FOR MALIGNANT NE 12/14/2017 SUSIE RAMIREZ MD Ot D47.3 ESSENTIAL (HEMORRHAGIC) THROMBOCYTHEMIA 12/14/2017 SUSIE RAMIREZ MD Ot D72.829 ELEVATED WHITE BLOOD CELL COUNT, UNSPECI 12/14/2017 SUSIE RAMIREZ MD Ot E88.01 PMLJK-6-BJTUBTQURLD DEFICIENCY 12/14/2017 SUSIE RAMIREZ MD Ot F41.9 [...] 12/14/2017 SUSIE RAMIREZ MD Ot Z79.899 OTHER INTERMEDIATE (CURRENT) DRUG THERAPY 12/14/2017 SUSIE RAMIREZ MD Ot Z95.0 PRESENCE OF CARDIAC PACEMAKER 12/24/2017 SUSIE RAMIREZ MD Ot D47.3 ESSENTIAL (HEMORRHAGIC) THROMBOCYTHEMIA 12/24/2017 SUSIE RAMIREZ MD Ot D72.829 ELEVATED WHITE BLOOD CELL COUNT, UNSPECI 12/24/2017 SUSIE RAMIREZ MD Ot E88.01 OOMGU-1-YXCDWZMACYG DEFICIENCY 12/24/2017 SUSIE RAMIREZ MD Ot F41.9 ANXIETY DISORDER, UNSPECIFIED 12/24/2017 SUSIE RAMIREZ MD Ot I10 ESSENTIAL (PRIMARY) HYPERTENSION 12/24/2017 SUSIE RAMIREZ MD Ot J44.9 CHRONIC OBSTRUCTIVE PULMONARY DISEASE, U 12/24/2017 SUSIE RAMIREZ MD Ot J45.909 UNSPECIFIED ASTHMA, UNCOMPLICATED 12/24/2017 SUSIE RAMIREZ MD Ot M17.0 BILATERAL PRIMARY OSTEOARTHRITIS OF KNEE 12/24/2017 SUSIE RAMIREZ MD Ot R06.02 SHORTNESS OF BREATH 12/24/2017 SUSIE RMAIREZ MD Ot R07.9 CHEST PAIN, UNSPECIFIED 12/24/2017 SUSIE RAMIREZ MD Ot R19.7 DIARRHEA, UNSPECIFIED 12/24/2017 SUSIE RAMIREZ MD Ot Z79.899 OTHER INTERMEDIATE (CURRENT) DRUG THERAPY 12/24/2017 SUSIE RAMIREZ MD Ot Z95.0 PRESENCE OF CARDIAC PACEMAKER 12/27/2017 SUSIE RAMIREZ MD Ot D47.3 ESSENTIAL (HEMORRHAGIC) THROMBOCYTHEMIA 12/27/2017 SUSIE RAMIREZ MD Ot D72.829 ELEVATED WHITE BLOOD CELL COUNT, UNSPECI 12/27/2017 SUSIE RAMIREZ MD Ot E88.01 LDTWG-1-WBDVMCTNZQK DEFICIENCY 12/27/2017 SUSIE RAMIREZ MD Ot F41.9 [...] 12/27/2017 SUSIE RAMIREZ MD Ot Z79.899 OTHER FIBERGLASS SKI MAKER (CURRENT) DRUG THERAPY 12/27/2017 SUSIE RAMIREZ MD Ot Z95.0 PRESENCE OF CARDIAC PACEMAKER 02/03/2018 CRICKET ARAUJO APRN Ot J45.909 UNSPECIFIED ASTHMA, UNCOMPLICATED 02/03/2018 CRICKET ARAUJO APRN Ot R06.02 SHORTNESS OF BREATH 02/05/2018 SUSIE RAMIREZ MD Ot D47.3 ESSENTIAL (HEMORRHAGIC) THROMBOCYTHEMIA 02/05/2018 SUSIE RAMIREZ MD Ot D72.829 ELEVATED WHITE BLOOD CELL COUNT, UNSPECI 02/05/2018 SUSIE RAMIREZ MD Ot E88.01 WHWBN-1-SYIZJQAFBQO DEFICIENCY 02/05/2018 SUSIE RAMIREZ MD Ot F41.9 ANXIETY DISORDER, UNSPECIFIED 02/05/2018 SUSIE RAMIREZ MD Ot I10 ESSENTIAL (PRIMARY) HYPERTENSION 02/05/2018 SUSIE RAMIREZ MD Ot J44.9 CHRONIC OBSTRUCTIVE PULMONARY DISEASE, U 02/05/2018 SUSIE RAMIREZ MD Ot J45.909 UNSPECIFIED ASTHMA, UNCOMPLICATED 02/05/2018 SUSIE RAMIREZ MD Ot M17.0 BILATERAL PRIMARY OSTEOARTHRITIS OF KNEE 02/05/2018 SUSIE RAMIREZ MD Ot R06.02 SHORTNESS OF BREATH 02/05/2018 SUSIE RAMIREZ MD Ot R07.9 CHEST PAIN, UNSPECIFIED 02/05/2018 SUSIE RAMIREZ MD Ot R19.7 DIARRHEA, UNSPECIFIED 02/05/2018 SUSIE RAMIREZ MD Ot Z79.899 OTHER FIBERGLASS SKI MAKER (CURRENT) DRUG THERAPY 02/05/2018 SUSIE RAMIREZ MD [...] UNSPECI 03/02/2018 SUSIE RAMIREZ MD Ot E88.01 XCCTD-3-IJGJKGYNAZP DEFICIENCY 03/02/2018 SUSIE RAMIREZ MD Ot F41.9 [...] MD Ot R19.7 DIARRHEA, UNSPECIFIED 03/02/2018 SUSIE RAMIREZ MD Ot Z79.899 OTHER INTERMEDIATE (CURRENT) DRUG THERAPY 03/02/2018 SUSIE RAMIREZ MD Ot Z95.0 PRESENCE OF CARDIAC PACEMAKER 03/08/2018 SUSIE RAMIREZ MD Ot D47.3 ESSENTIAL (HEMORRHAGIC) THROMBOCYTHEMIA 03/08/2018 JAMES KEATING, SUSIE Ot D72.829 ELEVATED WHITE BLOOD CELL COUNT, UNSPECI 03/08/2018 SUSIE RAMIREZ MD Ot E88.01 TFQZK-3-BUCPDTEYIQY DEFICIENCY 03/08/2018 SUSIE RAMIREZ MD Ot F41.9 [...] 03/08/2018 SUSIE RAMIREZ MD Ot Z79.899 OTHER FIBERGLASS SKI MAKER (CURRENT) DRUG THERAPY 03/08/2018 SUSIE RAMIREZ MD [...] UNSPECI 03/22/2018 SUSIE RAMIREZ MD Ot E88.01 YYIUJ-4-ZQITODRKHWX DEFICIENCY 03/22/2018 SUSIE RAMIREZ MD Ot F41.9 [...] 03/22/2018 SUSIE RAMIREZ MD Ot Z79.899 OTHER FIBERGLASS SKI MAKER (CURRENT) DRUG THERAPY 03/22/2018 SUSIE RAMIREZ MD [...] M47.814 SPONDYLOSIS W/O MYELOPATHY OR RADICULOPA 04/16/2018 CSA KEATING, Kody CISNEROS Ot E88.01 KAUWN-7-KTPVMXEFDXW DEFICIENCY 04/16/2018 CAS KEATING, Kody CISNEROS Ot R06.02 SHORTNESS OF BREATH 04/22/2018 KETTY KEATING, BRAD Aguilar Ot 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, THORACIC REGION 04/22/2018 KETTY KEATING, BRAD Aguilar Ot M47.814 SPONDYLOSIS W/O MYELOPATHY OR RADICULOPA 04/27/2018 CRICKET ARAUJO APRN Ot E88.01 AKUSE-4-HDJZELKBLMT DEFICIENCY 04/27/2018 CRICKET ARAUJO APRN Ot F41.9 ANXIETY DISORDER, UNSPECIFIED 04/27/2018 CRICKET ARAUJO APRN Ot I26.99 OTHER PULMONARY EMBOLISM WITHOUT ACUTE C 04/27/2018 CRICKET ARAUJO APRN Ot M19.90 UNSPECIFIED OSTEOARTHRITIS, UNSPECIFIED 04/27/2018 CRICKET ARAUJO APRN Ot Z95.5 PRESENCE OF CORONARY ANGIOPLASTY IMPLANT 04/28/2018 TRACEE FLETCHER MD Ot E78.00 PURE HYPERCHOLESTEROLEMIA, UNSPECIFIED 04/28/2018 TRACEE FLETCHER MD Ot E88.01 EXKIN-1-SQWZUPKXOQY DEFICIENCY 04/28/2018 TRACEE FLETCHER MD Ot F03.90 UNSPECIFIED DEMENTIA WITHOUT BEHAVIORAL 04/28/2018 TRACEE FLETCHER MD Ot F41.9 ANXIETY DISORDER, UNSPECIFIED 04/28/2018 TRACEE FLETCHER MD Ot I10 ESSENTIAL (PRIMARY) HYPERTENSION 04/28/2018 TRACEE FLETCHER MD Ot I25.10 ATHSCL HEART DISEASE OF [place] CORONARY 04/28/2018 TRACEE FLETCHER MD Ot I26.99 OTHER PULMONARY EMBOLISM WITHOUT ACUTE C 04/28/2018 TRACEE FLETCHER MD, Ot J43.9 EMPHYSEMA, UNSPECIFIED 04/28/2018 JUSTINE KEATING, TRACEE Gates Ot K58.1 IRRITABLE BOWEL SYNDROME WITH CONSTIPATI 04/28/2018 JUSTINE KEATING, TRACEE Gates Ot M19.91 PRIMARY OSTEOARTHRITIS, UNSPECIFIED SITE 04/28/2018 JUSTINE KEATING, TRACEE Gates Ot M54.9 DORSALGIA, UNSPECIFIED 04/28/2018 TRACEE FLETCHER MD Ot Z86.010 PERSONAL HISTORY OF COLONIC POLYPS 04/28/2018 TRACEE FLETCHER MD Ot Z87.11 PERSONAL HISTORY OF PEPTIC ULCER DISEASE 04/30/2018 MARTA BLAIR APRN Ot E78.00 PURE HYPERCHOLESTEROLEMIA, UNSPECIFIED 04/30/2018 MARTA BLAIR APRN Ot F03.90 UNSPECIFIED DEMENTIA WITHOUT BEHAVIORAL 04/30/2018 MARTA BLAIR APRN Ot F41.9 ANXIETY DISORDER, UNSPECIFIED 04/30/2018 MARTA BLAIR APRN Ot I10 ESSENTIAL (PRIMARY) HYPERTENSION 04/30/2018 MARTA BLAIR APRN Ot I26.99 OTHER PULMONARY EMBOLISM WITHOUT ACUTE C 04/30/2018 MARTA BLAIR APRN Ot J44.9 CHRONIC OBSTRUCTIVE PULMONARY DISEASE, U 04/30/2018 MARTA BLAIR APRN Ot M54.6 PAIN IN THORACIC SPINE 04/30/2018 MARTA BLAIR APRN Ot Z79.01 INTERMEDIATE (CURRENT) USE OF ANTICOAGULANT 04/30/2018 MARTA BLAIR APRN Ot Z79.51 INTERMEDIATE (CURRENT) USE OF INHALED STERO 04/30/2018 MARTA BLAIR APRN Ot Z86.010 PERSONAL HISTORY OF COLONIC POLYPS 04/30/2018 MARTA BLAIR APRN Ot Z87.19 PERSONAL HISTORY OF OTHER DISEASES OF TH 04/30/2018 MARTA BLAIR APRN Ot Z88.0 ALLERGY STATUS TO PENICILLIN 04/30/2018 MARTA BLAIR APRN Ot Z88.1 ALLERGY STATUS TO OTHER ANTIBIOTIC AGENT 04/30/2018 MARTA BLAIR APRN Ot Z88.4 ALLERGY STATUS TO ANESTHETIC AGENT STATU 04/30/2018 MARTA BLAIR APRN Ot Z88.5 ALLERGY STATUS TO NARCOTIC AGENT STATUS 04/30/2018 MARTA BLAIR APRN Ot Z88.8 ALLERGY STATUS TO OT DRUG/MEDS/BIOL SUB 04/30/2018 MARTA BLAIR APRN Ot Z90.710 ACQUIRED ABSENCE OF BOTH CERVIX AND UTER 04/30/2018 MARTA BLAIR APRN Ot Z95.0 PRESENCE OF CARDIAC PACEMAKER 04/30/2018 MARTA BLAIR APRN Ot Z98.890 OTHER SPECIFIED POSTPROCEDURAL STATES 05/02/2018 CRICKET ARAUJO APRN Ot E88.01 GKCDL-6-VRCVWBAFGVI DEFICIENCY 05/02/2018 CRICKET ARAUJO APRN Ot F41.9 ANXIETY DISORDER, UNSPECIFIED 05/02/2018 CRICKET ARAUJO MANAGER INPATIENT Ot I26.99 OTHER PULMONARY EMBOLISM WITHOUT ACUTE C 05/02/2018 CRICKET ARAUJO APRN Ot M19.90 UNSPECIFIED OSTEOARTHRITIS, UNSPECIFIED 05/02/2018 CRICKET ARAUJO APRN Ot Z95.5 PRESENCE OF CORONARY ANGIOPLASTY IMPLANT 05/03/2018 MARTA BLAIR APRN Ot E78.00 PURE HYPERCHOLESTEROLEMIA, UNSPECIFIED 05/03/2018 MARTA BLAIR APRN Ot F03.90 UNSPECIFIED DEMENTIA WITHOUT BEHAVIORAL 05/03/2018 MARTA BLAIR APRN Ot F41.9 ANXIETY DISORDER, UNSPECIFIED 05/03/2018 MARTA BLAIR APRN Ot I10 ESSENTIAL (PRIMARY) HYPERTENSION 05/03/2018 MARTA BLAIR APRN Ot I26.99 OTHER PULMONARY EMBOLISM WITHOUT ACUTE C 05/03/2018 MARTA BLAIR APRN Ot J44.9 CHRONIC OBSTRUCTIVE PULMONARY DISEASE, U 05/03/2018 MARTA BLAIR APRN Ot M54.6 PAIN IN THORACIC SPINE 05/03/2018 MARTA BLAIR APRN Ot Z79.01 INTERMEDIATE (CURRENT) USE OF ANTICOAGULANT 05/03/2018 MARTA BLAIR APRN Ot Z79.51 INTERMEDIATE (CURRENT) USE OF INHALED STERO 05/03/2018 MARTA BLAIR APRN Ot Z86.010 PERSONAL HISTORY OF COLONIC POLYPS 05/03/2018 MARTA BLAIR APRN Ot Z87.19 PERSONAL HISTORY OF OTHER DISEASES OF TH 05/03/2018 MARTA BLAIR APRN Ot Z88.0 ALLERGY STATUS TO PENICILLIN 05/03/2018 MARTA BLAIR APRN Ot Z88.1 ALLERGY STATUS TO OTHER ANTIBIOTIC AGENT 05/03/2018 MARTA BLAIR APRN Ot Z88.4 ALLERGY STATUS TO ANESTHETIC AGENT STATU 05/03/2018 MARTA BLAIR APRN Ot Z88.5 ALLERGY STATUS TO NARCOTIC AGENT STATUS 05/03/2018 MARTA BLAIR APRN Ot Z88.8 ALLERGY STATUS TO OTH DRUG/MEDS/BIOL SUB 05/03/2018 MARTA BLAIR APRN Ot Z90.710 ACQUIRED ABSENCE OF BOTH CERVIX AND UTER 05/03/2018 MARTA BLAIR APRN Ot Z95.0 PRESENCE OF CARDIAC PACEMAKER 05/03/2018 MARTA BLAIR APRN Ot Z98.890 OTHER SPECIFIED POSTPROCEDURAL STATES 05/10/2018 MARTA BLAIR APRN Ot E78.00 PURE HYPERCHOLESTEROLEMIA, UNSPECIFIED 05/10/2018 MARTA BLAIR APRN Ot F03.90 UNSPECIFIED DEMENTIA WITHOUT BEHAVIORAL 05/10/2018 MARTA BLAIR APRN Ot F41.9 ANXIETY DISORDER, UNSPECIFIED 05/10/2018 MARTA BLAIR APRN Ot I10 ESSENTIAL (PRIMARY) HYPERTENSION 05/10/2018 MARTA BLAIR APRN Ot I26.99 OTHER PULMONARY EMBOLISM WITHOUT ACUTE C 05/10/2018 MARTA BLAIR APRN Ot J44.9 CHRONIC OBSTRUCTIVE PULMONARY DISEASE, U 05/10/2018 MARTA BLAIR APRN Ot M54.6 PAIN IN THORACIC SPINE 05/10/2018 MARTA BLAIR APRN Ot Z79.01 INTERMEDIATE (CURRENT) USE OF ANTICOAGULANT 05/10/2018 MARTA BLAIR APRN Ot Z79.51 FIBERGLASS SKI MAKER (CURRENT) USE OF INHALED STERO 05/10/2018 MARTA BLAIR APRN Ot Z86.010 PERSONAL HISTORY OF COLONIC POLYPS 05/10/2018 MARTA BLAIR APRN Ot Z87.19 PERSONAL HISTORY OF OTHER DISEASES OF TH 05/10/2018 MARTA BLAIR APRN Ot Z88.0 ALLERGY STATUS TO PENICILLIN 05/10/2018 MARTA BLAIR APRN Ot Z88.1 ALLERGY STATUS TO OTHER ANTIBIOTIC AGENT 05/10/2018 MARTA BLAIR APRN Ot Z88.4 ALLERGY STATUS TO ANESTHETIC AGENT STATU 05/10/2018 MARTA BLAIR APRN Ot Z88.5 ALLERGY STATUS TO NARCOTIC AGENT STATUS 05/10/2018 MARTA BLAIR APRN Ot Z88.8 ALLERGY STATUS TO OTH DRUG/MEDS/BIOL SUB 05/10/2018 MARTA BLAIR MANAGER INPATIENT Ot Z90.710 ACQUIRED ABSENCE OF BOTH CERVIX AND UTER 05/10/2018 MARTA BLAIR MANAGER INPATIENT Ot Z95.0 PRESENCE OF CARDIAC PACEMAKER 05/10/2018 MARTA BLAIR MANAGER INPATIENT Ot Z98.890 OTHER SPECIFIED POSTPROCEDURAL STATES 06/01/2018 JUANJO KEATING, DARCI Hartmann Ot 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 06/01/2018 DARCI GEIGER MD Ot R51 HEADACHE 06/01/2018 BERYL KEATING, LIZZY Aguilar Ot K58.9 IRRITABLE BOWEL SYNDROME WITHOUT DIARRHE 06/01/2018 BERYL KEATING, LIZZY Aguilar Ot R10.12 LEFT UPPER QUADRANT PAIN 06/01/2018 LIZZY CORDOBA MD Ot R10.32 LEFT LOWER QUADRANT PAIN 06/01/2018 BERYL KEATING, LIZZY Aguilar Ot Z01.818 ENCOUNTER FOR OTHER PREPROCEDURAL EXAMIN 06/01/2018 LIZZY CORDOBA MD Ot Z86.010 PERSONAL HISTORY OF COLONIC POLYPS 06/01/2018 LOY HUGHES DO Ot Z12.31 ENCNTR SCREEN MAMMOGRAM FOR MALIGNANT NE 06/01/2018 BRYN KEATING, ESTEFANIA Dodd Ot M48.50XA COLLAPSED VERTEBRA, NEC, SITE UNSP, INIT 06/01/2018 ESTEFANIA CLEMENTE MD Ot M85.88 OT DISRD OF BONE DENSITY AND STRUCTURE, 06/01/2018 ALVAREZ DUMONT APRN Ot Z12.31 ENCNTR SCREEN MAMMOGRAM FOR MALIGNANT NE 06/01/2018 CRICKET ARAUJO APRN Ot J45.909 UNSPECIFIED ASTHMA, UNCOMPLICATED 06/01/2018 CRICKET ARAUJO APRN Ot R06.02 SHORTNESS OF BREATH 06/01/2018 Ot 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 06/01/2018 Ot F41.9 ANXIETY DISORDER, UNSPECIFIED 06/01/2018 Ot M19.90 UNSPECIFIED OSTEOARTHRITIS, UNSPECIFIED 06/01/2018 SUSIE RAMIREZ MD Ot D47.3 ESSENTIAL (HEMORRHAGIC) THROMBOCYTHEMIA 06/01/2018 SUSIE RAMIREZ MD Ot D72.829 ELEVATED WHITE BLOOD CELL COUNT, UNSPECI 06/01/2018 SUSIE RAMIREZ MD Ot E88.01 BYBDC-5-MKAWUKDDXPX DEFICIENCY 06/01/2018 JAMES MD, RICHARDS Ot F41.9 ANXIETY DISORDER, UNSPECIFIED 06/01/2018 SUSIE RAMIREZ MD Ot I10 ESSENTIAL (PRIMARY) HYPERTENSION 06/01/2018 SUSIE RAMIREZ MD Ot J44.9 CHRONIC OBSTRUCTIVE PULMONARY DISEASE, U 06/01/2018 SUSIE RAMIREZ MD Ot J45.909 UNSPECIFIED ASTHMA, UNCOMPLICATED 06/01/2018 SUSIE RMAIREZ MD Ot M17.0 BILATERAL PRIMARY OSTEOARTHRITIS OF KNEE 06/01/2018 SUSIE RAMIREZ MD Ot R06.02 SHORTNESS OF BREATH 06/01/2018 SUSIE RAMIREZ MD Ot R07.9 CHEST PAIN, UNSPECIFIED 06/01/2018 SUSIE RAMIREZ MD Ot R19.7 DIARRHEA, UNSPECIFIED 06/01/2018 SUSIE RAMIREZ MD Ot Z79.899 OTHER FIBERGLASS SKI MAKER (CURRENT) DRUG THERAPY 06/01/2018 SUSIE RAMIREZ MD Ot Z95.0 PRESENCE OF CARDIAC PACEMAKER 06/01/2018 BRAD HDEZ MD Ot 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, THORACIC REGION 06/01/2018 BRAD HDEZ MD Ot M47.814 SPONDYLOSIS W/O MYELOPATHY OR RADICULOPA 06/01/2018 CAS KEATING, Kody CISNEROS Ot E88.01 ZWPIQ-5-CXBMRLHCREE DEFICIENCY 06/01/2018 Kody CARDOZO MD Ot R06.02 SHORTNESS OF BREATH 06/01/2018 CRICKET ARAUJO APRN Ot E88.01 TJRQK-5-WTQVVGUNOEO DEFICIENCY 06/01/2018 CRICKET ARAUJO APRN Ot F41.9 ANXIETY DISORDER, UNSPECIFIED 06/01/2018 CRICKET ARAUJO MANAGER INPATIENT Ot I26.99 OTHER PULMONARY EMBOLISM WITHOUT ACUTE C 06/01/2018 CRICKET ARAUJO APRN Ot M19.90 UNSPECIFIED OSTEOARTHRITIS, UNSPECIFIED 06/01/2018 CRICKET ARAUJO APRN Ot Z95.5 PRESENCE OF CORONARY ANGIOPLASTY IMPLANT 06/01/2018 MARTA BLAIR APRN Ot E78.00 PURE HYPERCHOLESTEROLEMIA, UNSPECIFIED 06/01/2018 MARTA BLAIR APRN Ot E87.1 HYPO-OSMOLALITY AND HYPONATREMIA 06/01/2018 MARTA BLAIR APRN Ot F03.90 UNSPECIFIED DEMENTIA WITHOUT BEHAVIORAL 06/01/2018 MARTA BLAIR MANAGER INPATIENT Ot F41.9 ANXIETY DISORDER, UNSPECIFIED 06/01/2018 MARTA BLAIR APRN Ot I10 ESSENTIAL (PRIMARY) HYPERTENSION 06/01/2018 MARTA BLAIR APRN Ot J44.9 CHRONIC OBSTRUCTIVE PULMONARY DISEASE, U 06/01/2018 MARTA BLAIR APRN Ot K21.9 GASTRO-ESOPHAGEAL REFLUX DISEASE WITHOUT 06/01/2018 MARTA BLAIR APRN Ot N28.89 OTHER SPECIFIED DISORDERS OF KIDNEY AND 06/01/2018 MARTA BLAIR APRN Ot R40.2142 COMA SCALE, EYES OPEN, SPONTANEOUS, EMR 06/01/2018 MARTA BLAIR APRN Ot R40.2252 COMA SCALE, BEST VERBAL RESPONSE, ORIENT 06/01/2018 MARTA BLAIR APRN Ot R40.2362 COMA SCALE, BEST MOTOR RESPONSE, OBEYS C 06/01/2018 MARTA BLAIR APRN Ot S06.0X9A CONCUSSION W LOSS OF CONSCIOUSNESS OF UN 06/01/2018 MARTA BLAIR APRN Ot S09.90XA UNSPECIFIED INJURY OF HEAD, INITIAL ENCO 06/01/2018 MARTA BLAIR APRN Ot W18.30XA FALL ON SAME LEVEL, UNSPECIFIED, INITIAL 06/01/2018 MARTA BLAIR APRN Ot Y92.[address] [facility] [address] IN [facility] NON-INSTITUT (PRIVATE 06/01/2018 MARTA BLAIR APRN Ot Z79.01 FIBERGLASS SKI MAKER (CURRENT) USE OF ANTICOAGULANT 06/01/2018 MARTA BLAIR APRN Ot Z79.51 INTERMEDIATE (CURRENT) USE OF INHALED STERO 06/01/2018 MARTA BLAIR APRN Ot Z79.52 INTERMEDIATE (CURRENT) USE OF SYSTEMIC STER 06/01/2018 MARTA BLAIR APRN Ot Z86.010 PERSONAL HISTORY OF COLONIC POLYPS 06/01/2018 MARTA BLAIR APRN Ot Z86.711 PERSONAL HISTORY OF PULMONARY EMBOLISM 06/01/2018 MARTA BLAIR APRN Ot Z87.19 PERSONAL HISTORY OF OTHER DISEASES OF TH 06/01/2018 MARTA BLAIR APRN Ot Z88.0 ALLERGY STATUS TO PENICILLIN 06/01/2018 MARTA BLAIR APRN Ot Z88.1 ALLERGY STATUS TO OTHER ANTIBIOTIC AGENT 06/01/2018 MARTA BLAIR APRN Ot Z88.4 ALLERGY STATUS TO ANESTHETIC AGENT STATU 06/01/2018 MARTA BLAIR APRN Ot Z88.5 ALLERGY STATUS TO NARCOTIC AGENT STATUS 06/01/2018 MARTA BLAIR APRN Ot Z88.8 ALLERGY STATUS TO OTH DRUG/MEDS/BIOL SUB 06/01/2018 MARTA BLAIR APRN Ot Z90.49 ACQUIRED ABSENCE OF OTHER SPECIFIED PART 06/01/2018 MARTA BLAIR APRN Ot Z90.710 ACQUIRED ABSENCE OF BOTH CERVIX AND UTER 06/01/2018 MARTA BLAIR APRN Ot Z95.0 PRESENCE OF CARDIAC PACEMAKER 06/01/2018 MARTA BLAIR APRN Ot 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 06/04/2018 MARTA BLAIR APRN Ot E78.00 PURE HYPERCHOLESTEROLEMIA, UNSPECIFIED 06/04/2018 MARTA BLAIR APRN Ot E87.1 HYPO-OSMOLALITY AND HYPONATREMIA 06/04/2018 MARTA BLAIR APRN Ot F03.90 UNSPECIFIED DEMENTIA WITHOUT BEHAVIORAL 06/04/2018 MARTA BLAIR APRN Ot F41.9 ANXIETY DISORDER, UNSPECIFIED 06/04/2018 MARTA BLAIR APRN Ot I10 ESSENTIAL (PRIMARY) HYPERTENSION 06/04/2018 MARTA BLAIR APRN Ot J44.9 CHRONIC OBSTRUCTIVE PULMONARY DISEASE, U 06/04/2018 MARTA BLAIR APRN Ot K21.9 GASTRO-ESOPHAGEAL REFLUX DISEASE WITHOUT 06/04/2018 MARTA BLAIR APRN Ot N28.89 OTHER SPECIFIED DISORDERS OF KIDNEY AND 06/04/2018 MARTA BLAIR APRN Ot R40.2142 COMA SCALE, EYES OPEN, SPONTANEOUS, EMR 06/04/2018 MARTA BLAIR APRN Ot R40.2252 COMA SCALE, BEST VERBAL RESPONSE, ORIENT 06/04/2018 MARTA BLAIR APRN Ot R40.2362 COMA SCALE, BEST MOTOR RESPONSE, OBEYS C 06/04/2018 MARTA BLAIR APRN Ot S06.0X9A CONCUSSION W LOSS OF CONSCIOUSNESS OF UN 06/04/2018 MARTA BLAIR APRN Ot S09.90XA UNSPECIFIED INJURY OF HEAD, INITIAL ENCO 06/04/2018 MARTA BLAIR APRN Ot W18.30XA FALL ON SAME LEVEL, UNSPECIFIED, INITIAL 06/04/2018 MARTA BLAIR APRN Ot Y92.[address] IN [facility] NON-INSTITUT (PRIVATE 06/04/2018 MARTA BLAIR APRN Ot Z79.01 INTERMEDIATE (CURRENT) USE OF ANTICOAGULANT 06/04/2018 MARTA BLAIR APRN Ot Z79.51 FIBERGLASS SKI MAKER (CURRENT) USE OF INHALED STERO 06/04/2018 MARTA BLAIR APRN Ot Z79.52 INTERMEDIATE (CURRENT) USE OF SYSTEMIC STER 06/04/2018 MARTA BLAIR APRN Ot Z86.010 PERSONAL HISTORY OF COLONIC POLYPS 06/04/2018 MARTA BLAIR APRN Ot Z86.711 PERSONAL HISTORY OF PULMONARY EMBOLISM 06/04/2018 MARTA BLAIR APRN Ot Z87.19 PERSONAL HISTORY OF OTHER DISEASES OF TH 06/04/2018 MARTA BLAIR APRN Ot Z88.0 ALLERGY STATUS TO PENICILLIN 06/04/2018 MARTA BLAIR APRN Ot Z88.1 ALLERGY STATUS TO OTHER ANTIBIOTIC AGENT 06/04/2018 MARTA BLAIR APRN Ot Z88.4 ALLERGY STATUS TO ANESTHETIC AGENT STATU 06/04/2018 MARTA BLAIR APRN Ot Z88.5 ALLERGY STATUS TO NARCOTIC AGENT STATUS 06/04/2018 MARTA BLAIR APRN Ot Z88.8 ALLERGY STATUS TO OTH DRUG/MEDS/BIOL SUB 06/04/2018 MARTA BLAIR APRN Ot Z90.49 ACQUIRED ABSENCE OF OTHER SPECIFIED PART 06/04/2018 MARTA BLAIR APRN Ot Z90.710 ACQUIRED ABSENCE OF BOTH CERVIX AND UTER 06/04/2018 MARTA BLAIR APRN Ot Z95.0 PRESENCE OF CARDIAC PACEMAKER 06/04/2018 MARTA BLAIR APRN Ot 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 06/04/2018 SUSIE RAMIREZ MD Ot D47.3 ESSENTIAL (HEMORRHAGIC) THROMBOCYTHEMIA 06/04/2018 SUSIE RAMIREZ MD Ot D72.829 ELEVATED WHITE BLOOD CELL COUNT, UNSPECI 06/04/2018 SUSIE RAMIREZ MD Ot E88.01 [id number] DEFICIENCY 06/04/2018 SUSIE RAMIREZ MD Ot F41.9 ANXIETY DISORDER, UNSPECIFIED 06/04/2018 SUSIE RAMIREZ MD Ot I10 ESSENTIAL (PRIMARY) HYPERTENSION 06/04/2018 SUSIE RAMIREZ MD Ot J44.9 CHRONIC OBSTRUCTIVE PULMONARY DISEASE, U 06/04/2018 SUSIE RAMIREZ MD Ot J45.909 UNSPECIFIED ASTHMA, UNCOMPLICATED 06/04/2018 SUSIE RAMIREZ MD Ot M17.0 BILATERAL PRIMARY OSTEOARTHRITIS OF KNEE 06/04/2018 SUSIE RAMIREZ MD Ot R06.02 SHORTNESS OF BREATH 06/04/2018 SUSIE RAMIREZ MD Ot R07.9 CHEST PAIN, UNSPECIFIED 06/04/2018 SUSIE RAMIREZ MD Ot R19.7 DIARRHEA, UNSPECIFIED 06/04/2018 SUSIE RAMIREZ MD Ot Z79.899 OTHER INTERMEDIATE (CURRENT) DRUG THERAPY 06/04/2018 SUSIE RAMIREZ MD Ot Z95.0 PRESENCE OF CARDIAC PACEMAKER 06/16/2018 MARLYN ZAYAS, BERNICE Fox Ot N28.1 CYST OF KIDNEY, ACQUIRED 06/28/2018 ALVAREZ DUMONT APRN Ot R92.8 OTH ABN AND INCONCLUSIVE FINDINGS ON DX 06/28/2018 JUANJO KEATING, DARCI Hartmann Ot 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 06/28/2018 JUANJO KEATING, DARCI Hartmann Ot R51 HEADACHE 06/28/2018 BERYL KEATING, LIZZY Aguilar Ot K58.9 IRRITABLE BOWEL SYNDROME WITHOUT DIARRHE 06/28/2018 BERYL KEATING, LIZZY Aguilar Ot R10.12 LEFT UPPER QUADRANT PAIN 06/28/2018 LIZZY CORDOBA MD Ot R10.32 LEFT LOWER QUADRANT PAIN 06/28/2018 BERYL KEATING, LIZZY Aguilar Ot Z01.818 ENCOUNTER FOR OTHER PREPROCEDURAL EXAMIN 06/28/2018 BERYL KEATING, LIZZY Aguilar Ot Z86.010 PERSONAL HISTORY OF COLONIC POLYPS 06/28/2018 LOY HUGHES DO Ot Z12.31 ENCNTR SCREEN MAMMOGRAM FOR MALIGNANT NE 06/28/2018 ESTEFANIA CLEMENTE MD Ot M48.50XA COLLAPSED VERTEBRA, NEC, SITE UNSP, INIT 06/28/2018 ESTEFANIA CLEMENTE MD Ot M85.88 OTH DISRD OF BONE DENSITY AND STRUCTURE, 06/28/2018 ALVAREZ DUMONT APRN Ot Z12.31 ENCNTR SCREEN MAMMOGRAM FOR MALIGNANT NE 06/28/2018 CRICKET ARAUJO APRN Ot J45.909 UNSPECIFIED ASTHMA, UNCOMPLICATED 06/28/2018 CRICKET ARAUJO APRN Ot R06.02 SHORTNESS OF BREATH 06/28/2018 Ot 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 06/28/2018 Ot F41.9 ANXIETY DISORDER, UNSPECIFIED 06/28/2018 Ot M19.90 UNSPECIFIED OSTEOARTHRITIS, UNSPECIFIED 06/28/2018 SUSIE RAMIREZ MD Ot D47.3 ESSENTIAL (HEMORRHAGIC) THROMBOCYTHEMIA 06/28/2018 SUSIE RAMIREZ MD Ot D72.829 ELEVATED WHITE BLOOD CELL COUNT, UNSPECI 06/28/2018 SUSIE RAMIREZ MD Ot E88.01 [id number] DEFICIENCY 06/28/2018 SUSIE RAMIREZ MD Ot F41.9 ANXIETY DISORDER, UNSPECIFIED 06/28/2018 SUSIE RAMIREZ MD Ot I10 ESSENTIAL (PRIMARY) HYPERTENSION 06/28/2018 SUSIE RAMIREZ MD Ot J44.9 CHRONIC OBSTRUCTIVE PULMONARY DISEASE, U 06/28/2018 SUSIE RAMIREZ MD Ot J45.909 UNSPECIFIED ASTHMA, UNCOMPLICATED 06/28/2018 SUSIE RAMIREZ MD Ot M17.0 BILATERAL PRIMARY OSTEOARTHRITIS OF KNEE 06/28/2018 SUSIE RAMIREZ MD Ot R06.02 SHORTNESS OF BREATH 06/28/2018 SUSIE RAMIREZ MD Ot R07.9 CHEST PAIN, UNSPECIFIED 06/28/2018 SUSIE RAMIREZ MD Ot R19.7 DIARRHEA, UNSPECIFIED 06/28/2018 SUSIE RAMIREZ MD Ot Z79.899 OTHER INTERMEDIATE (CURRENT) DRUG THERAPY 06/28/2018 SUSIE RAMIREZ MD Ot Z95.0 PRESENCE OF CARDIAC PACEMAKER 06/28/2018 KETTY KEATING, BRAD Aguilar Ot 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, THORACIC REGION 06/28/2018 KETTY KEATING, BRAD Aguilar Ot M47.814 SPONDYLOSIS W/O MYELOPATHY OR RADICULOPA 06/28/2018 Kody CARDOZO MD Ot E88.01 XEONU-3-EFTWHGQDHCJ DEFICIENCY 06/28/2018 Kody CARDOZO MD Ot R06.02 SHORTNESS OF BREATH 06/28/2018 CRICKET ARAUJO APRN Ot E88.01 UUPTY-3-NKEOFNDVXGA DEFICIENCY 06/28/2018 CRICKET ARAUJO APRN Ot F41.9 ANXIETY DISORDER, UNSPECIFIED 06/28/2018 CRICKET ARAUJO APRN Ot I26.99 OTHER PULMONARY EMBOLISM WITHOUT ACUTE C 06/28/2018 CRICKET ARAUJO APRN Ot M19.90 UNSPECIFIED OSTEOARTHRITIS, UNSPECIFIED 06/28/2018 CRICKET ARAUJO APRN Ot Z95.5 PRESENCE OF CORONARY ANGIOPLASTY IMPLANT 06/28/2018 BERNICE GOODSON Ot N28.1 CYST OF KIDNEY, ACQUIRED 06/28/2018 ALVAREZ DUMONT MANAGER INPATIENT Ot R92.8 OTH ABN AND INCONCLUSIVE FINDINGS ON DX 07/12/2018 BERNICE GOODSON Ot N28.1 CYST OF KIDNEY, ACQUIRED 07/12/2018 ALVAREZ DUMONT APRN Ot Z09 ENCNTR FOR F/U EXAM AFT TRTMT FOR COND O 07/15/2018 SUSIE RAMIREZ MD Ot D47.3 ESSENTIAL (HEMORRHAGIC) THROMBOCYTHEMIA 07/15/2018 SUSIE RAMIREZ MD Ot D72.829 ELEVATED WHITE BLOOD CELL COUNT, UNSPECI 07/15/2018 SUSIE RAMIREZ MD Ot E88.01 BYIXY-3-CJDJNIDOSTM DEFICIENCY 07/15/2018 SUSIE RAMIREZ MD Ot F41.9 ANXIETY DISORDER, UNSPECIFIED 07/15/2018 SUSIE RAMIREZ MD Ot I10 ESSENTIAL (PRIMARY) HYPERTENSION 07/15/2018 SUSIE RAMIREZ MD Ot J44.9 CHRONIC OBSTRUCTIVE PULMONARY DISEASE, U 07/15/2018 SUSIE RAMIREZ MD Ot J45.909 UNSPECIFIED ASTHMA, UNCOMPLICATED 07/15/2018 SUSIE RAMIREZ MD Ot M17.0 BILATERAL PRIMARY OSTEOARTHRITIS OF KNEE 07/15/2018 SUSIE RAMIREZ MD Ot R06.02 SHORTNESS OF BREATH 07/15/2018 SUSIE RAMIREZ MD Ot R07.9 CHEST PAIN, UNSPECIFIED 07/15/2018 SUSIE RAMIREZ MD Ot R19.7 DIARRHEA, UNSPECIFIED 07/15/2018 SUSIE RAMIREZ MD Ot Z79.899 OTHER FIBERGLASS SKI MAKER (CURRENT) DRUG THERAPY 07/15/2018 SUSIE RAMIREZ MD Ot Z95.0 PRESENCE OF CARDIAC PACEMAKER 07/16/2018 SUSIE RAMIREZ MD Ot D47.3 ESSENTIAL (HEMORRHAGIC) THROMBOCYTHEMIA 07/16/2018 SUSIE RAMIREZ MD Ot D72.829 ELEVATED WHITE BLOOD CELL COUNT, UNSPECI 07/16/2018 SUSIE RAMIREZ MD Ot E88.01 SDOLC-3-JMHRBSBHGAA DEFICIENCY 07/16/2018 SUSIE RAMIREZ MD Ot F41.9 ANXIETY DISORDER, UNSPECIFIED 07/16/2018 SUSIE RAMIREZ MD Ot I10 ESSENTIAL (PRIMARY) HYPERTENSION 07/16/2018 SUSIE RAMIREZ MD Ot J44.9 CHRONIC OBSTRUCTIVE PULMONARY DISEASE, U 07/16/2018 SUSIE RAMIREZ MD Ot J45.909 UNSPECIFIED ASTHMA, UNCOMPLICATED 07/16/2018 SUSIE RAMIREZ MD Ot M17.0 BILATERAL PRIMARY OSTEOARTHRITIS OF KNEE 07/16/2018 SUSIE RAMIREZ MD Ot R06.02 SHORTNESS OF BREATH 07/16/2018 SUSIE RAMIREZ MD Ot R07.9 CHEST PAIN, UNSPECIFIED 07/16/2018 SUSIE RAMIREZ MD Ot R19.7 DIARRHEA, UNSPECIFIED 07/16/2018 SUSIE RAMIREZ MD Ot Z79.899 OTHER FIBERGLASS SKI MAKER (CURRENT) DRUG THERAPY 07/16/2018 SUSIE RAMIREZ MD Ot Z95.0 PRESENCE OF CARDIAC PACEMAKER 07/19/2018 SUSIE RAMIREZ MD Ot D47.3 ESSENTIAL (HEMORRHAGIC) THROMBOCYTHEMIA 07/19/2018 SUSIE RAMIREZ MD Ot D72.829 ELEVATED WHITE BLOOD CELL COUNT, UNSPECI 07/19/2018 SUSIE RAMIREZ MD Ot E88.01 YYAMR-0-GHEIFCVPEXL DEFICIENCY 07/19/2018 SUSIE RAMIREZ MD Ot F41.9 ANXIETY DISORDER, UNSPECIFIED 07/19/2018 SUSIE RAMIREZ MD Ot I10 ESSENTIAL (PRIMARY) HYPERTENSION 07/19/2018 SUSIE RAMIREZ MD Ot J44.9 CHRONIC OBSTRUCTIVE PULMONARY DISEASE, U 07/19/2018 SUSIE RAMIREZ MD Ot J45.909 UNSPECIFIED ASTHMA, UNCOMPLICATED 07/19/2018 SUSIE RAMIREZ MD Ot M17.0 BILATERAL PRIMARY OSTEOARTHRITIS OF KNEE 07/19/2018 SUSIE RAMIREZ MD Ot R06.02 SHORTNESS OF BREATH 07/19/2018 SUSIE RAMIREZ MD Ot R07.9 CHEST PAIN, UNSPECIFIED 07/19/2018 SUSIE RAMIREZ MD Ot R19.7 DIARRHEA, UNSPECIFIED 07/19/2018 SUSIE RAMIREZ MD Ot Z79.899 OTHER FIBERGLASS SKI MAKER (CURRENT) DRUG THERAPY 07/19/2018 SUSIE RAMIREZ MD Ot Z95.0 PRESENCE OF CARDIAC PACEMAKER 07/19/2018 BERNICE GOODSON Ot N28.1 CYST OF KIDNEY, ACQUIRED 07/21/2018 SUSIE RAMIREZ MD Ot D47.3 ESSENTIAL (HEMORRHAGIC) THROMBOCYTHEMIA 07/21/2018 SUSIE RAMIREZ MD, Ot D72.829 ELEVATED WHITE BLOOD CELL COUNT, UNSPECI 07/21/2018 SUSIE RAMIREZ MD, Ot E88.01 VUCIJ-5-ZTUSUGLBAQP DEFICIENCY 07/21/2018 SUSIE RAMIREZ MD, Ot F41.9 ANXIETY DISORDER, UNSPECIFIED 07/21/2018 SUSIE RAMIREZ MD, Ot I10 ESSENTIAL (PRIMARY) HYPERTENSION 07/21/2018 SUSIE RAMIREZ MD, Ot J44.9 CHRONIC OBSTRUCTIVE PULMONARY DISEASE, U 07/21/2018 SUSIE RAMIREZ MD, Ot J45.909 UNSPECIFIED ASTHMA, UNCOMPLICATED 07/21/2018 SUSIE RAMIREZ MD, Ot M17.0 BILATERAL PRIMARY OSTEOARTHRITIS OF KNEE 07/21/2018 SUSIE RAMIREZ MD, Ot R06.02 SHORTNESS OF BREATH 07/21/2018 SUSIE RAMIREZ MD, Ot R07.9 CHEST PAIN, UNSPECIFIED 07/21/2018 SUSIE RAMIREZ MD, Ot R19.7 DIARRHEA, UNSPECIFIED 07/21/2018 SUSIE RAMIREZ MD, Ot Z79.899 OTHER INTERMEDIATE (CURRENT) DRUG THERAPY 07/21/2018 SUSIE RAMIREZ MD, Ot Z95.0 PRESENCE OF CARDIAC PACEMAKER Procedures Code Description Performed By Performed On 88L20VM INSERTION OF PACEMAKER LEAD INTO RIGHT A 07/17/2017 [id number] INSERTION OF PACEMAKER LEAD INTO R VENTR 07/17/2017 5OG050R INSERT PACE. DUAL MAMADOU IN CHEST SUBCU/FA [...] 5-8.5 Urine-Protein Negative Negative Urine-RBC 0-2/HPF Urine-Specific [place] <=1.005 1.000-1.030 Urine-WBC 2-5/HPF Urobilinogen 0.2 0.2-1.0 [...] 07/13/17 11:10 Blood monocytes/100 leukocytes 5 % NR Manual blood segmented neutrophils/100 leukocytes 75 % NR Manual blood lymphocytes/100 leukocytes 20 % [facility] Blood erythrocyte morphology finding identification NORMAL [facility] Serum or plasma creatine kinase MB measurement [...] FOR INFLUENZA A AND B ANTIGENS BY [facility] Bacterial blood culture - 07/13/17 12:05 Bacterial [...] RESULTS NEGATIVE FOR ANTIGEN AND TOXIN A/B [facility] Complete blood count (CBC) with automated white [...] measurement (mass/volume) 2.7 mg/dL 2.3-4.7 Magnesium - 02/10/18 03:46 Magnesium 1.7 mg/dL 1.8-2.4 Complete blood [...] culture - 09/27/17 00:50 Bacterial urine culture [id number] NRG COLONY COUNT >100,000/ML NR FTX;REPORTABLE SENSITIVITY REPORTED 09/28 07:30 NR Bacterial susceptibility panel - 09/27/17 00:50 Gentamicin [...] by minimum inhibitory concentration < = NRG [id number] - 04/26/18 15:10 Serum or plasma urea nitrogen measurement (mass/volume) 27 mg/dL 7-18 Serum or plasma creatinine measurement (mass/volume) 1.20 mg/dL 0.60-1.30 Serum or plasma urea nitrogen/creatinine mass ratio 23 NRG Serum or plasma creatinine measurement with calculation of estimated glomerular filtration rate 44 NR Complete blood count (CBC) with automated white [...] plasma calcium measurement (mass/volume) 9.3 mg/dL 8.5-10.1 Complete blood count (CBC) with automated white blood cell (WBC) differential - 04/30/18 21:44 Blood leukocytes automated count (number/volume) 17.7 10*3/uL 4.3-11.0 Blood erythrocytes automated count (number/volume) 3.80 10*6/uL 4.35-5.85 Venous blood hemoglobin measurement (mass/volume) 11.1 g/dL 11.5-16.0 Blood hematocrit (volume fraction) 33 % 35-52 Automated erythrocyte mean corpuscular volume 88 [foz_us] 80-99 Automated erythrocyte mean corpuscular hemoglobin (mass per erythrocyte) 29 pg 25-34 Automated erythrocyte mean corpuscular hemoglobin concentration measurement ( mass/volume) 33 g/dL 32-36 Automated erythrocyte distribution width ratio 14.2 % 10.0-14.5 Automated blood platelet count (count/volume) 406 10*3/uL 130-400 Automated blood platelet mean volume measurement 8.7 [foz_us] 7.4-10.4 Automated blood neutrophils/100 leukocytes 81 % 42-75 Automated blood lymphocytes/100 leukocytes 13 % 12-44 Blood monocytes/100 leukocytes 5 % 0-12 Automated blood eosinophils/100 leukocytes 1 % 0-10 Automated blood basophils/100 leukocytes 0 % 0-10 Blood neutrophils automated count (number/volume) 14.3 10*3 1.8-7.8 Blood lymphocytes automated count (number/volume) 2.4 10*3 1.0-4.0 Blood monocytes automated count (number/volume) 0.8 10*3 0.0-1.0 Automated eosinophil count 0.2 10*3/uL 0.0-0.3 Automated blood basophil count (count/volume) 0.0 10*3/uL 0.0-0.1 Blood manual differential performed detection - 04/30/18 21:44 Blood monocytes/100 leukocytes 4 % NRG Manual blood segmented neutrophils/100 leukocytes 79 % NRG Blood band neutrophils/100 leukocytes 4 % NRG Manual blood lymphocytes/100 leukocytes 10 % NRG Manual eosinophils/100 leukocytes in nose 2 % NRG Manual blood basophils/100 leukocytes 0 % NRG Blood erythrocyte morphology finding identification NORMAL NRG Manual blood metamyelocytes/100 leukocytes 1 % NRG Comprehensive metabolic panel - 04/30/18 21:44 Serum or plasma sodium measurement (moles/volume) 129 mmol/L 135-145 Serum or plasma potassium measurement (moles/volume) 3.8 mmol/L 3.6-5.0 Serum or plasma chloride measurement (moles/volume) 93 mmol/L 98-107 Carbon dioxide 23 mmol/L 21-32 Serum or plasma anion gap determination (moles/volume) 13 mmol/L 5-14 Serum or plasma urea nitrogen measurement (mass/volume) 21 mg/dL 7-18 Serum or plasma creatinine measurement (mass/volume) 1.17 mg/dL 0.60-1.30 Serum or plasma urea nitrogen/creatinine mass ratio 18 NRG Serum or plasma creatinine measurement with calculation of estimated glomerular filtration rate 45 NRG Serum or plasma glucose measurement (mass/volume) 141 mg/dL 70-105 Serum or plasma calcium measurement (mass/volume) 9.3 mg/dL 8.5-10.1 Serum or plasma total bilirubin measurement (mass/volume) 0.3 mg/dL 0.1-1.0 Serum or plasma alkaline phosphatase measurement (enzymatic activity/volume) 64 U/L 40-136 Serum or plasma aspartate aminotransferase measurement (enzymatic activity/ volume) 18 U/L 5-34 Serum or plasma alanine aminotransferase measurement (enzymatic activity/volume ) 15 U/L 0-55 Serum or plasma protein measurement (mass/volume) 6.5 g/dL 6.4-8.2 Serum or plasma albumin measurement (mass/volume) 3.6 g/dL 3.2-4.5 CALCIUM CORRECTED 9.6 mg/dL 8.5-10.1 Serum or plasma lithium measurement (moles/volume) - 04/30/18 21:44 BNP level 51.3 pg/mL <100.0 Serum or plasma troponin i.cardiac measurement (mass/volume) - 04/30/18 21:44 Serum or plasma troponin i.cardiac measurement (mass/volume) < ng/ mL <0.30 Magnesium - 04/30/18 21:44 Magnesium 1.4 mg/dL 1.8-2.4 Complete urinalysis with reflex to culture - 04/30/18 22:51 Urine color determination YELLOW NRG Urine clarity determination CLEAR NRG Urine pH measurement by test strip 5 5-9 Specific gravity of urine by test strip 1.010 1.016- 1.022 Urine protein assay by test strip, semi-quantitative NEGATIVE NEGATIVE Urine glucose detection by automated test strip NEGATIVE NEGATIVE Erythrocytes detection in urine sediment by light microscopy 2+ NEGATIVE Urine ketones detection by automated test strip NEGATIVE NEGATIVE Urine nitrite detection by test strip NEGATIVE NEGATIVE Urine total bilirubin detection by test strip NEGATIVE NEGATIVE Urine urobilinogen measurement by automated test strip (mass/volume) NORMAL NORMAL Urine leukocyte esterase detection by dipstick 1+ NEGATIVE Automated urine sediment erythrocyte count by microscopy (number/high power field) RARE NRG Automated urine sediment leukocyte count by microscopy (number/high power field ) RARE NRG Bacteria detection in urine sediment by light microscopy NEGATIVE NRG Squamous epithelial cells detection in urine sediment by light microscopy 2-5 NRG Crystals detection in urine sediment by light microscopy NONE NRG Casts detection in urine sediment by light microscopy NONE NRG Mucus detection in urine sediment by light microscopy NEGATIVE NRG Complete urinalysis with reflex to culture NO NRG Complete blood count (CBC) with automated white blood cell (WBC) differential - 06/01/18 13:44 Blood leukocytes automated count (number/volume) 14.5 10*3/uL 4.3-11.0 Blood erythrocytes automated count (number/volume) 3.27 10*6/uL 4.35-5.85 Venous blood hemoglobin measurement (mass/volume) 9.8 g/dL 11.5-16.0 Blood hematocrit (volume fraction) 29 % 35-52 Automated erythrocyte mean corpuscular volume 88 [foz_us] 80-99 Automated erythrocyte mean corpuscular hemoglobin (mass per erythrocyte) 30 pg 25-34 Automated erythrocyte mean corpuscular hemoglobin concentration measurement ( mass/volume) 34 g/dL 32-36 Automated erythrocyte distribution width ratio 14.4 % 10.0-14.5 Automated blood platelet count (count/volume) 432 10*3/uL 130-400 Automated blood platelet mean volume measurement 8.8 [foz_us] 7.4-10.4 Automated blood neutrophils/100 leukocytes 63 % 42-75 Automated blood lymphocytes/100 leukocytes 26 % 12-44 Blood monocytes/100 leukocytes 8 % 0-12 Automated blood eosinophils/100 leukocytes 3 % 0-10 Automated blood basophils/100 leukocytes 0 % 0-10 Blood neutrophils automated count (number/volume) 9.1 10*3 1.8-7.8 Blood lymphocytes automated count (number/volume) 3.7 10*3 1.0-4.0 Blood monocytes automated count (number/volume) 1.1 10*3 0.0-1.0 Automated eosinophil count 0.5 10*3/uL 0.0-0.3 Automated blood basophil count (count/volume) 0.1 10*3/uL 0.0-0.1 Comprehensive metabolic panel - 06/01/18 13:44 Serum or plasma sodium measurement (moles/volume) 126 mmol/L 135-145 Serum or plasma potassium measurement (moles/volume) 3.9 mmol/L 3.6-5.0 Serum or plasma chloride measurement (moles/volume) 97 mmol/L 98-107 Carbon dioxide 17 mmol/L 21-32 Serum or plasma anion gap determination (moles/volume) 12 mmol/L 5-14 Serum or plasma urea nitrogen measurement (mass/volume) 23 mg/dL 7-18 Serum or plasma creatinine measurement (mass/volume) 1.26 mg/dL 0.60-1.30 Serum or plasma urea nitrogen/creatinine mass ratio 18 NRG Serum or plasma creatinine measurement with calculation of estimated glomerular filtration rate 41 NRG Serum or plasma glucose measurement (mass/volume) 137 mg/dL 70-105 Serum or plasma calcium measurement (mass/volume) 9.0 mg/dL 8.5-10.1 Serum or plasma total bilirubin measurement (mass/volume) 0.4 mg/dL 0.1-1.0 Serum or plasma alkaline phosphatase measurement (enzymatic activity/volume) 64 U/L 40-136 Serum or plasma aspartate aminotransferase measurement (enzymatic activity/ volume) 15 U/L 5-34 Serum or plasma alanine aminotransferase measurement (enzymatic activity/volume ) 10 U/L 0-55 Serum or plasma protein measurement (mass/volume) 5.9 g/dL 6.4-8.2 Serum or plasma albumin measurement (mass/volume) 3.5 g/dL 3.2-4.5 CALCIUM CORRECTED 9.4 mg/dL 8.5-10.1 Blood manual differential performed detection - 06/01/18 13:44 Blood monocytes/100 leukocytes 6 % NRG Manual blood segmented neutrophils/100 leukocytes 71 % NRG Blood band neutrophils/100 leukocytes 4 % NRG Manual blood lymphocytes/100 leukocytes 18 % NRG Manual eosinophils/100 leukocytes in nose 1 % NRG Blood erythrocyte morphology finding identification NORMAL NRG Complete urinalysis with reflex to culture - 06/01/18 15:25 Urine color determination YELLOW NRG Urine clarity determination SLIGHTLY CLOUDY NRG Urine pH measurement by test strip 5 5-9 Specific gravity of urine by test strip 1.015 1.016- 1.022 Urine protein assay by test strip, semi-quantitative NEGATIVE NEGATIVE Urine glucose detection by automated test strip NEGATIVE NEGATIVE Erythrocytes detection in urine sediment by light microscopy 1+ NEGATIVE Urine ketones detection by automated test [...] urine sediment by light microscopy NONE NRG Crystals detection in urine sediment by light microscopy NONE NRG Casts detection in urine sediment by light microscopy NONE NRG Mucus detection in urine sediment by light microscopy NEGATIVE NRG Complete urinalysis with reflex to culture YES NRG Bacterial urine culture - 06/01/18 15:25 Bacterial urine culture [id number] NRG COLONY COUNT >100,000/ML NRG FTX;REPORTABLE ID REPORTED 06/02/18 16:05 NRG FREE TEXT ENTRY 2 SENSITIVITY REPORTED 06/03/18 11:05 NRG RML Sensitivity Panel - 06/01/18 15:25 Gentamicin susceptibility test by minimum inhibitory concentration < = NRG Trimethoprim/sulfamethoxazole susceptibility test by minimum inhibitoryconcentration <= NRG Levofloxacin susceptibility test by minimum inhibitory concentration <= NRG Ampicillin susceptibility test by minimum inhibitory concentration R NRG Cefazolin susceptibility test by minimum inhibitory concentration < = NRG Ceftriaxone susceptibility test by minimum inhibitory concentration <= NRG Ciprofloxacin susceptibility test by minimum inhibitory concentration <= NRG Meropenem susceptibility test by minimum inhibitory concentration < = NRG Nitrofurantoin susceptibility test by minimum inhibitory concentration <= NRG Amoxicillin and clavulanate potassium susc SINA <= NRG Automated blood complete blood count (hemogram) panel - 06/15/18 08:28 Blood leukocytes automated count (number/volume) 15.1 10*3/uL 4.3-11.0 Blood erythrocytes automated count (number/volume) 3.94 10*6/uL 4.35-5.85 Venous blood hemoglobin measurement (mass/volume) 11.2 g/dL 11.5-16.0 Blood hematocrit (volume fraction) 35 % 35-52 Automated erythrocyte mean corpuscular volume 89 [foz_us] 80-99 Automated erythrocyte mean corpuscular hemoglobin (mass per erythrocyte) 28 pg 25-34 Automated erythrocyte mean corpuscular hemoglobin concentration measurement ( mass/volume) 32 g/dL 32-36 Automated erythrocyte distribution width ratio 14.0 % 10.0-14.5 Automated blood platelet count (count/volume) 552 10*3/uL 130-400 Automated blood platelet mean volume measurement 8.9 [foz_us] 7.4-10.4 Whole blood basic metabolic panel - 06/15/18 08:28 Serum or plasma sodium measurement (moles/volume) 133 mmol/L 135-145 Serum or plasma potassium measurement (moles/volume) 3.6 mmol/L 3.6-5.0 Serum or plasma chloride measurement (moles/volume) 98 mmol/L 98-107 Carbon dioxide 23 mmol/L 21-32 Serum or plasma anion gap determination (moles/volume) 12 mmol/L 5-14 Serum or plasma urea nitrogen measurement (mass/volume) 16 mg/dL 7-18 Serum or plasma creatinine measurement (mass/volume) 1.18 mg/dL 0.60-1.30 Serum or plasma urea nitrogen/creatinine mass ratio 14 NRG Serum or plasma creatinine measurement with calculation of estimated glomerular filtration rate 45 NRG Serum or plasma glucose measurement (mass/volume) 110 mg/dL 70-105 Serum or plasma calcium measurement (mass/volume) 9.9 mg/dL 8.5-10.1 Encounters ACCT No. Visit Date/Time Discharge Status Pt. Type Provider Facility Loc./Unit Complaint [id number] 07/16/2018 09:51:00 07/16/2018 23:59:59 CLS Outpatient SUSIE RAMIREZ MD [facility] ONC [id number] 04/16/2018 09:37:00 07/15/2018 00:01:00 DIS Outpatient SUSIE RAMIREZ MD [facility] ONC [id number] 06/28/2018 13:40:00 06/28/2018 23:59:59 CLS Outpatient ALVAREZ DUMONT APRN [facility] RAD 6 MONTH FOLLOW UP [id number] 06/15/2018 08:17:00 06/15/2018 23:59:59 CLS Outpatient BERNICE GOODSON [facility] RAD LT KIDNEY NODULE [id number] 06/01/2018 13:36:00 06/01/2018 16:26:00 DIS Emergency MARTA BLAIR MANAGER INPATIENT [facility] ER FALL;HEAD INJ [id number] 04/30/2018 21:35:00 04/30/2018 23:20:00 DIS Emergency MARTA BLAIR MANAGER INPATIENT [facility] ER BACK PAIN [id number] 04/26/2018 16:25:00 04/28/2018 13:00:00 DIS Inpatient TRACEE FLETCHER MD [facility] 4TH BILAT PE [id number] 04/26/2018 15:15:00 04/26/2018 23:59:59 CLS Preadmit CRICKET ARAUJO APRN [facility] RAD SOB [id number] 04/26/2018 15:00:00 04/26/2018 23:59:59 CLS Outpatient CRICKET ARAUJO MANAGER INPATIENT [facility] RAD SOB [id number] 04/15/2018 12:45:00 04/15/2018 23:59:59 CLS Outpatient Kody CARDOZO MD [facility] CARD SOB [id number] 03/22/2018 11:05:00 03/22/2018 23:59:59 CLS Outpatient BRAD HDEZ MD [facility] RAD THORACIC BACK PAIN [id number] 03/17/2018 15:31:00 03/17/2018 23:59:59 CLS Preadmit Kody CARDOZO MD [facility] RAD SOB [id number] 03/10/2018 15:30:00 03/10/2018 23:59:59 CLS Outpatient CRICKET ARAUJO APRN [facility] RT SOB, ASTHMA [id number] 01/15/2018 10:50:00 02/05/2018 00:01:00 DIS Outpatient SUSIE RAMIREZ MD [facility] ONC [id number] 10/16/2017 13:08:00 12/24/2017 00:01:00 DIS Outpatient SUSIE RAMIREZ MD [facility] ONC [id number] 11/13/2017 09:47:00 11/13/2017 23:59:59 CLS Outpatient ALVAREZ DUMONT APRN [facility] RAD SCREENING [id number] 09/26/2017 22:42:00 09/27/2017 02:00:00 DIS Emergency SPIKE NIX MD [facility] ER FALL INJ SHOULDER [id number] 09/01/2017 15:31:00 09/01/2017 23:59:59 CLS Preadmit CRICKET ARAUJO APRN [facility] RT SOB,ASTHMA [id number] 07/13/2017 12:30:00 07/18/2017 13:50:00 DIS Inpatient Kody CARDOZO MD [facility] ICU SYMPTOMATIC BRADYCARDIA, DEHYDRATION W/ ELECTROLYT [id number] 05/21/2017 10:29:00 05/21/2017 23:59:59 CLS Outpatient BRYN KEATING, ESTEFANIA Dodd [facility] RAD M48.50XA [id number] 11/04/2016 13:28:00 11/04/2016 23:59:59 CLS Outpatient HUGHES LOY Feliberto [facility] RAD Z12.39 [id number] 10/03/2016 06:43:00 10/03/2016 09:51:00 DIS Outpatient BERYL KEATING, LIZZY Aguilar [facility] ENDO IBS, LUQ/LLQ PAIN, HX COLON POLYPS [id number] 10/01/2016 05:35:00 10/01/2016 23:59:59 CLS Outpatient LIZZY CORDOBA MD [facility] PREOP ISB,LUQ PAIN,LLQ PAIN [id number] 02/24/2016 20:27:00 02/24/2016 23:00:00 DIS Emergency BOYD KEATING, SPIKE Bernal [facility] ER HTN [id number] 01/01/2016 07:49:00 01/01/2016 23:59:59 CLS Outpatient JUANJO KEATING, DARCI Hartmann [facility] RAD HEADACHE,DIPLOPIA [id number] 11/23/2015 23:30:00 11/24/2015 01:26:00 DIS Emergency JAYA ODILIA LEONG [facility] ER LAWSON,VOMITING,ANXIETY [id number] 08/13/2015 12:43:00 08/13/2015 14:13:00 DIS Emergency DURAND DO VARGAS L [facility] ER IRR HEART RATE [id number] 08/11/2018 05:21:00 ACT Emergency JAYA ODILIA LEONG [facility] ER FELL, HIT HEAD ON NIGHTSTAND [id number] 02/16/2018 10:37:00 Document Registration [id number] 11/23/2015 15:31:00 11/23/2015 19:37:00 DIS Emergency Yeager Curt [facility] ED fall [id number] 11/24/2015 05:16:39 Document Registration [id number] 11/24/2015 05:16:38 Document Registration [id number] 12/18/2017 09:12:00 12/18/2017 23:59:00 DIS Outpatient WINTERBRAD DE PAZ [id number] 10/22/2017 15:50:00 10/22/2017 23:59:00 DIS Outpatient WINTERBRAD DE PAZ [id number] 04/08/2017 10:00:00 06/26/2017 14:54:00 DIS Outpatient EbohJazmyn [id number] 12/05/2016 09:50:00 12/05/2016 23:59:00 DIS Outpatient WINTERBRAD DE PAZ [id number] 07/09/2016 09:00:00 10/08/2016 13:15:00 DIS Outpatient BRAD CASTILLO [id number] 06/18/2016 11:32:00 06/27/2016 11:15:00 DIS Inpatient ANNA [facility] ER [id number] 06/18/2016 13:23:06 Document Registration [id number] 11/22/2015 00:00:00 Document Registration [id number] 01/17/2017 08:36:00 Document Registration [id number] 07/02/2017 14:00:00 07/02/2017 23:59:59 CLS Outpatient BRYN KEATING, ESTEFANIA [facility]
--- NOTE | 2018-08-11 06:14 | ED Fall/Injury ---
General Stated Complaint: FELL, HIT HEAD ON NIGHTSTAND Source: patient (PT WITH DEMENTIA AND IS VERY LIMITED HISTORIAN), senior living records, old records History of Present Illness Date Seen by Provider: Aug 11, 2018 Time Seen by Provider: 05:24 Initial Comments PT ARRIVES VIA EMS FROM VIA [facility] PT HAD AN UNWITNESSED FALL , BUT [facility] STAFF HEARD HER YELL AND FOUND HER ON THE FLOOR PT THINKS SHE WAS TRYING TO PUT ON HER SLIPPERS AND SHE FELL--DOES NOT KNOW IF SHE WAS STANDING OR SITTING, BUT THINKS SHE HIT HER NIGHTSTAND, AND THINKS SHE WAS TRYING TO GET HER WALKER BUT IT SLID AWAY AND SHE FELL DOES NOT THINK SHE LOST CONSCIOUSNESS C/O PAIN TO HER HEAD AND FOREHEAD AND BRIDGE OF NOSE--HAS LARGE HEMATOMA TO RIGHT FOREHEAD AND TO RIGHT CHEEK. PT IS ON XARELTO FOR BILATERAL P.E.'S DX 04/2018 DID LAND ON HER KNEES ON THE FLOOR, BUT ONLY HAS SLIGHT PAIN IN HER KNEES--LEFT > RIGHT, DENIES PAIN TO ANY OTHER PARTS OF LEGS. DENIES PAIN TO NECK OR BACK DENIES PAIN TO ARMS OR HIPS DENIES VISION CHANGES DENIES NAUSEA STATES SHE DOES FEEL A LITTLE LIGHTHEADED DENIES PARESTHESIAS OR MOTOR DEFICITS Allergies and Home Medications Allergies Coded Allergies: Penicillins (Verified Allergy, Mild, 08/13/15) ketorolac (Verified Allergy, Mild, 08/13/15) morphine (Verified Allergy, Mild, 08/13/15) tetracycline (Verified Allergy, Mild, 08/13/15) paroxetine (Unverified Allergy, Unknown, 02/24/16) Home Medications Acetaminophen 500 Mg Tablet, 1,000 MG PO DAILY, (Reported) TAKES 2 (500 MG) TABLETS Acetaminophen 500 Mg Tablet, 1,000 MG PO BID PRN for PAIN-MILD, (Reported) Amlodipine Besylate 5 Mg Tablet, 5 MG PO HS, (Reported) Budesonide 3 Mg Capdr...er, 9 MG PO DAILY, (Reported) TAKES 3 (3MG) CAPSULES Calcium Carbonate/Vitamin D3 1 Each Tablet, 1 TAB PO DAILY, (Reported) Cholestyramine (with Sugar) 4 Gm Powd.pack, 4 GM PO DAILY PRN for LOOSE STOOLS, (Reported) Citalopram Hydrobromide 10 Mg Tablet, 30 MG PO HS, (Reported) TAKES 3 (10 MG) TABLETS Diphenhydramine HCl 25 Mg Capsule, 25 MG PO BID PRN for ITCHING, (Reported) Estradiol 42.5 Gm Cream.appl, VG HS, (Reported) APPLY PEA SIZED AMOUNT TO OUTER VAGINAL AREA AT BEDTIME Estradiol 10 Mcg Tablet, 10 MCG VG TuFr, (Reported) Fexofenadine HCl 180 Mg Tablet, 180 MG PO DAILY, (Reported) Fluticasone Propionate 16 Gm Ramona.susp, 1 SPRAY NS DAILY, (Reported) Folic Acid 1 Mg Tablet, 1 MG PO DAILY, (Reported) Hydrochlorothiazide 25 Mg Tablet, 25 MG PO DAILY, (Reported) Ibandronate Sodium 150 Mg Tablet, 150 MG PO EVERY 3 MONTHS, (Reported) DUE NEXT 05-29-18 Lisinopril 20 Mg Tablet, 20 MG PO BID, (Reported) Loperamide HCl 2 Mg Capsule, 2 MG PO Q8H PRN for LOOSE STOOLS, (Reported) Lorazepam 0.5 Mg Tablet, 0.5 MG PO BID, (Reported) Magnesium Oxide 400 Mg Tablet, 400 MG PO BID Prescribed by: MARTA BLAIR on 04/30/182255 Mometasone Furoate 220 Mcg Aer.pow.ba, 1 PUFF IH HS, (Reported) Montelukast Sodium 10 Mg Tablet, 10 MG PO HS, (Reported) Multivitamin 1 Each Tablet, 1 TAB PO DAILY, (Reported) Omeprazole 20 Mg Capsule.dr, 20 MG PO DAILY, (Reported) Polyethylene Glycol 3350 17 Gm Powd.pack, 8.5 GM PO DAILY PRN for CONSTIPATION- 2ND LINE, (Reported) Pravastatin Sodium 40 Mg Tablet, 40 MG PO HS, (Reported) Quetiapine Fumarate 100 Mg Tablet, 100 MG PO HS, (Reported) Rivaroxaban 15 Mg Tablet, 15 MG PO BID@07,17 BIN [id number] N [id number] Prescribed by: TRACEE FLETCHER on 04/28/18 09 Rivaroxaban 20 Mg Tablet, 20 MG PO DAILY@1700 BIN [id number] N [id number] Prescribed by: TRACEE FLETCHER on 04/28/18 09 Rivastigmine Tartrate 3 Mg Capsule, 3 MG PO BID, (Reported) Tramadol HCl 50 Mg Tablet, 50 MG PO TID PRN for BACK PAIN, (Reported) Triamcinolone Acetonide 80 Gm Oint...g., TP HS, (Reported) APPLIES TO LABIA MAJORA / MAY MIX WITH ESTRACE CREAM Patient Home Medication List Home Medication List Reviewed: Yes Review of Systems Review of Systems Constitutional: see HPI, dizziness Eyes: No Symptoms Reported Ears, Nose, Mouth, Throat: see HPI, nose pain; denies loose teeth Respiratory: no symptoms reported Cardiovascular: no symptoms reported Gastrointestinal: no symptoms reported; No nausea, No vomiting Musculoskeletal: see HPI Skin: no symptoms reported Psychiatric/Neurological: See HPI, Headache; Denies Numbness, Denies Paresthesia Past Airnlhj-Qknztp-Ygwxkf Hx Patient Social History Alcohol Use: Past History ("SOCIAL DRINKER" IN PAST) Alcohol Beverage of Choice: Wine Recreational Drug Use: No Smoking Status: Never a Smoker 2nd Hand Smoke Exposure: No Recent Foreign Travel: No Contact w/Someone Who Travel: No Recent Hopitalizations: Yes Immunizations Up To Date Tetanus Booster (TDap): Unknown Date of Pneumonia Vaccine: Feb 10, 2017 Date of Influenza Vaccine: Apr 06, 2018 Seasonal Allergies Seasonal Allergies: No Past Medical History Surgeries: Yes (RIGHT HAND AND WRIST FX/ EXTERNAL PINS; HYST/BSO; NOSE SURGERY X 4--POLYPS AND DEVIATED SEPTUM; LEFT BREAST BX X 4 AGE 30; RIGHT HUMERUS FX/ SHOULDER REPLACEMENT; REPAIR OF PERFORATED GASTRIC ULCER; EGD/COLONOSCOPY/COLON POLYPECTOMY; CATARACTS) Abdominal, Appendectomy, Eye Surgery, Gallbladder, 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, Joint Replacement, Orthopedic, Pacemaker Respiratory: Yes (ALPHA 1 ANTITRIPSIN DEFICIENCY; BILATERAL P.E.'S 04/2018--ON XARELTO) Asthma, Pulmonary Embolism, COPD Currently Using CPAP: No Currently Using BIPAP: No Cardiac: Yes (PACEMAKER;"VASOVAGAL NERVE PROBLEMS" ) High Cholesterol, Hypertension Neurological: Yes Dementia 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 Disorders: No Female 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 Disorders: Denies, 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, Menopausal Sexually Transmitted Disease: No HIV/AIDS: No Genitourinary: Yes (INCONTINENCE) Gastrointestinal: Yes (BLEEDING ULCER X 3; PERFORATED ULCER 2006; 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) Gastrointestinal Bleed, Chronic Diarrhea, Polyps, Ulcer, Irritable Bowel Musculoskeletal: Yes (MOSTLY IN HANDS, KNEES, BACK; RIGHT SHOULDER REPLACEMENTL RIGHT HAND/WRIST FX/EXTERNAL PINS) Degenerate Disk Disease, Arthritis, Chronic Back Pain, Fractures Endocrine: No HEENT: Yes Cataract Loss of Vision: Denies Hearing Impairment: Hard of Hearing Cancer: No Psychosocial: Yes Anxiety Integumentary: No Blood Disorders: Yes (BILATERAL P.E.'S 04/2018) Family Medical History Blood clots (sister had a blood clot in the brain which caused her  in 2010) Physical Exam Vital Signs Vital Signs - First Documented 08/11/18 05:21 Temp 97.6 Pulse 77 Resp 18 B/P (MAP) 157/87 (110) Capillary Refill : Height, Weight, BMI Height: 5'4.00" Weight: 210lbs. 9.0oz. 95.985060ew; 25.1 BMI Method:Stated General Appearance: WD/WN, no apparent distress, other (MILDLY ANXIOUS) HEENT: PERRL/EOMI, TMs normal, pharynx normal, other (LARGE HEMATOMA TO RIGHT FOREHEAD AND RIGHT CHEEK, TENDERNESS TO BRIDGE OF NOSE) Neck: normal inspection Cardiovascular: regular rate, rhythm, no edema, no murmur Respiratory: chest non-tender, normal breath sounds, no respiratory distress Peripheral Pulses: 1+ Dorsalis Pedis (R), 1+ Left Dors-Pedis (L), 1+ Radial Pulses (R), 1+ Radial Pulses (L) Gastrointestinal: non tender, soft Back: no CVA tenderness, no vertebral tenderness Extremities: normal range of motion, non-tender, no pedal edema, normal capillary refill Neurologic/Psychiatric: 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, no motor/sensory deficits, alert, normal mood/affect, other (ORIENTED TO PERSON, PLACE, SOMEWHAT ORIENTED TO TIME AND SITUATION, BUT WITH POOR MEMORY) Skin: normal color, warm/dry, ecchymosis Anmol Coma Score Best Eye Response: (4) Open Spontaneously Best Verbal Response: (5) Oriented Best Motor Response: (6) Obeys Commands Anmol Total: 15 Progress/Results/Core Measures Results/Orders Lab Results Laboratory Tests Test 08/11/18 07:01 08/11/18 07:30 Range/Units White Blood Count 22.3 H 4.3-11.0 10^3/uL Red Blood Count 4.68 4.35-5.85 10^6/uL Hemoglobin 13.1 11.5-16.0 G/DL Hematocrit 40 35-52 % Mean Corpuscular Volume 86 80-99 FL Mean Corpuscular Hemoglobin 28 25-34 PG Mean Corpuscular Hemoglobin Concent 33 32-36 G/DL Red Cell Distribution Width 14.9 H 10.0-14.5 % Platelet Count 500 H 130-400 10^3/uL Mean Platelet Volume 9.3 7.4-10.4 FL Neutrophils (%) (Auto) 72 42-75 % Lymphocytes (%) (Auto) 21 12-44 % Monocytes (%) (Auto) 7 0-12 % Eosinophils (%) (Auto) 0 0-10 % Basophils (%) (Auto) 0 0-10 % Neutrophils # (Auto) 16.1 H 1.8-7.8 X 10^3 Lymphocytes # (Auto) 4.7 H 1.0-4.0 X 10^3 Monocytes # (Auto) 1.4 H 0.0-1.0 X 10^3 Eosinophils # (Auto) 0.1 0.0-0.3 10^3/uL Basophils # (Auto) 0.0 0.0-0.1 10^3/uL Neutrophils % (Manual) 73 % Lymphocytes % (Manual) 22 % Monocytes % (Manual) 4 % Eosinophils % (Manual) 0 % Basophils % (Manual) 0 % Band Neutrophils 1 % Elliptocytes SLIGHT Prothrombin Time 13.7 12.2-14.7 SEC INR Comment 1.0 0.8-1.4 Activated Partial Thromboplast Time 22 L 24-35 SEC My Orders Orders - ODILIA LAKE DO Saline Lock/Iv-Start (08/11/18 05:29) Ct Head/Face/Cervical Wo (08/11/18 05:29) Cbc With Automated Diff (08/11/18 05:29) Comprehensive Metabolic Panel (08/11/18 05:29) Protime With Inr (08/11/18 05:29) Partial Thromboplastin Time (08/11/18 05:29) Chest 1 View, Ap/Pa Only (08/11/18 05:29) Pelvis (08/11/18 05:29) Knee, 3 Views, Bilateral (08/11/18 05:29) Manual Differential (08/11/18 07:01) Vital Signs/I&O 08/11/18 05:21 Temp 97.6 Pulse 77 Resp 18 B/P (MAP) 157/87 (110) Progress Progress Note : Progress Note UNEVENTFUL ER STAY PT HAD NO COMPLAINTS FOR REMAINDER OF ER STAY Diagnostic Imaging Comments CT HEAD/ MAXILLOFACIALS/CERVICAL SPINE--NO ACUTE PROCESS, PER [facility] VIA FAX @ [id number] XRAYS: BILATERAL KNEES--NO ACUTE PROCESS, DEGENERATIVE CHANGES CXR--NO ACUTE PROCESS, STABLE CARDIOMEGALY PELVIS XRAY--NO ACUTE PROCESS, DEGENERATIVE CHANGES ALL PER RADIOLOGIST REPORTS @ [id number] Reviewed: Reviewed by Me Departure Communication (Admissions) Family Conversation [id number]--PT'S DAUGHTER CALLED, UPDATE ON CONDITION GIVEN AND REVIEWED CT RESULTS. OTHER XRAYS AND LAB STILL PENDING AT THIS TIME. Impression Primary Impression: Unwitnessed fall Additional Impressions: FACIAL CONTUSIONS Minor head injury without loss of consciousness BILATERAL KNEE CONTUSIONS Dementia XARELTO THERAPY Disposition: 03 XFER SNF Condition: Stable Departure-Patient Inst. Referrals: BRAD HDEZ MD (PCP/Family) Primary Care Physician Patient Instructions: Contusion (DC), Eye Contusion (DC), Minor Head Injury (DC ), Preventing Falls in the Older Adult Add. Discharge Instructions: ICE TO SORE AREAS AT 20 MINUTE INTERVALS CONTINUE YOUR REGULAR MEDICATIONS PRESCRIBED TYLENOL NEEDED FOR PAIN FOLLOW UP WITH YOUR DR NEEDED ODILIA LAKE DO Aug 11, 2018 06:14
[2018-08-11 07:05] LABS: BASOPHILS % (AUTO) 0 % (0-10); EOSINOPHILS # (AUTO) 0.1 10^3/uL (0.0-0.3); EOSINOPHILS % (AUTO) 0 % (0-10); HEMATOCRIT 40 % (35-52); HEMOGLOBIN 13.1 G/DL (11.5-16.0); LYMPHOCYTES # (AUTO) 4.7 X 10^3 (1.0-4.0); LYMPHOCYTES % (AUTO) 21 % (12-44); MEAN CORPUSCULAR HEMOGLOBIN 28 PG (25-34); MEAN CORPUSCULAR HGB CONC 33 G/DL (32-36); MEAN CORPUSCULAR VOLUME 86 FL (80-99); MEAN PLATELET VOLUME 9.3 FL (7.4-10.4); MONOCYTES # (AUTO) 1.4 X 10^3 (0.0-1.0); MONOCYTES % (AUTO) 7 % (0-12); NEUTROPHILS # (AUTO) 16.1 X 10^3 (1.8-7.8); NEUTROPHILS % (AUTO) 72 % (42-75); PLATELET COUNT 500 10^3/uL (130-400); RED CELL DISTRIBUTION WIDTH 14.9 % (10.0-14.5); WHITE BLOOD COUNT 22.3 10^3/uL (4.3-11.0)
[2018-08-11 07:19] LABS: PROTHROMBIN TIME PATIENT 13.7 SEC (12.2-14.7)
[2018-08-11 07:40] LABS: BAND NEUTROPHILS 1 %; BASOPHILS % (MANUAL) 0 %; ELLIPT/OVALOCYTES SLIGHT; EOSINOPHILS % (MANUAL) 0 %; LYMPHOCYTES % (MANUAL) 22 %; MONOCYTES % (MANUAL) 4 %; NEUTROPHILS % (MANUAL) 73 %
--- NOTE | 2018-08-11 07:44 | Diagnostic Imaging Report ---
INDICATION: Fall, trauma. TECHNIQUE: Frontal view of the chest. COMPARISON: 06/01/2018 FINDINGS: Lung volumes are normal. No focal consolidation is seen. There is no pleural effusion or pneumothorax. There is stable mild cardiomegaly. The left-sided pacemaker is in stable position. Right shoulder arthroplasty is noted. No displaced fractures are seen. IMPRESSION: No acute pulmonary abnormality. Stable mild cardiomegaly. Dictated by: Dictated on workstation # [id number]
--- NOTE | 2018-08-11 07:50 | Diagnostic Imaging Report ---
INDICATION: Fall, injury to bilateral knees. TECHNIQUE: 3 views of the right and left knees. COMPARISON: None FINDINGS: No acute fracture or dislocation is seen in the bilateral knees. Alignment appears normal. There is diffuse osteopenia. There is moderate chondrocalcinosis in the knees bilaterally. There are moderate degenerative changes in the patellofemoral compartments bilaterally and mild in the tibiofemoral compartments bilaterally. No significant joint effusion is seen bilaterally. IMPRESSION: No acute fracture is seen in the bilateral knees. There are degenerative changes bilaterally, most pronounced in the patellofemoral compartments. Dictated by: Dictated on workstation # [id number]
--- NOTE | 2018-08-11 07:52 | Diagnostic Imaging Report ---
INDICATION: Fall, trauma. TECHNIQUE: Frontal view the pelvis COMPARISON: None FINDINGS: No acute fracture or dislocation is seen on this single view of the pelvis. Alignment appears normal. The femoral heads are well-seated in the acetabula bilaterally. There are mild degenerative changes in bilateral hip joints and moderate in the pubic symphysis. IMPRESSION: Mild degenerative changes with no acute osseous abnormality seen on this single view of the pelvis. Dictated by: Dictated on workstation # [id number]
[2018-08-11 08:06] LABS: ALBUMIN 4.2 GM/DL (3.2-4.5); BILIRUBIN,TOTAL 0.5 MG/DL (0.1-1.0); CALCIUM 10.4 MG/DL (8.5-10.1); CREATININE SERUM 1.05 MG/DL (0.60-1.30); POTASSIUM 4.1 MMOL/L (3.6-5.0); TOTAL PROTEIN 7.4 GM/DL (6.4-8.2)
--- NOTE | 2018-08-11 08:13 | NUR ---
[facility] CALLED TO HYDROLOGY TECHNICIAN PT
--- NOTE | 2018-08-11 09:01 | Diagnostic Imaging Report ---
PROCEDURE: CT head, face, and cervical spine without contrast. TECHNIQUE: Multiple contiguous axial images were obtained through the head, neck, and facial bones without the use of intravenous contrast. Sagittal and coronal reformations through the cervical spine and facial bones were also performed. INDICATION: Traumatic head/neck injury. Patient hit head on night stand. COMPARISON: CT head and cervical spine performed on 06/01/2018. FINDINGS - CT BRAIN: BRAIN: No parenchymal hemorrhage, midline shift or mass effect. Rose-white matter differentiation is well preserved. No acute infarct. Mild prominence of the ventricles and Sulci consistent with cortical and cerebellar parenchymal volume loss. No white matter lesions. EXTRA-AXIAL SPACES: No subdural or epidural collections. CALVARIUM AND SOFT TISSUES: The calvarium is intact. There is a small right frontal scalp hematoma. FINDINGS - CT FACIAL BONES: ORBITAL AND PERIORBITAL SOFT TISSUES: Normal. FACIAL SOFT TISSUES: Normal. ORBITAL PIMENTEL: Normal. PARANASAL SINUSES: Normal. NASAL BONES: Normal. ZYGOMATIC ARCHES: Normal. PTERYGOID PLATES: Normal. MAXILLA AND ALVEOLUS: Normal. MANDIBLE: Normal. No fracture or dislocation. FINDINGS - CT CERVICAL SPINE: SPINE: No fracture. No acute osseous abnormalities. There is normal cervical lordosis. No subluxation. There is moderate multilevel degenerative loss of disc height with endplate osteophytes. No locked or perched facet. SOFT TISSUES AND LUNG APICES: Soft tissues unremarkable. Clear lung apices. IMPRESSION: No acute intracranial pathology. No significant change in CT appearance of the head. Small right frontal scalp hematoma, without evidence of underlying skull fracture. No facial fracture is identified. Multilevel degenerative change of the cervical spine, without evidence of acute fracture or subluxation. Findings are in agreement with initial teleradiology report. Dictated by: Dictated on workstation # [id number]
[2018-08-11 09:11] VITALS: BP 155/82
[2018-08-12] MEDS ORDERED: POTA-51 PO (16:40)
== END 2018-08-11 09:11 ==
LOC: EDUNIT# 05:19 → ER 05:21
DX: S06.0X0A Concussion without loss of consciousness, initial encounter (principal); S80.01XA Contusion of right knee, initial encounter; S80.02XA Contusion of left knee, initial encounter; J44.9 Chronic obstructive pulmonary disease, unspecified; E78.00 Pure hypercholesterolemia, unspecified; I10 Essential (primary) hypertension; K58.9 Irritable bowel syndrome, unspecified; F41.9 Anxiety disorder, unspecified; R40.2142 Coma scale, eyes open, spontaneous, at arrival to emergency department; R40.2252 Coma scale, best verbal response, oriented, at arrival to emergency department; R40.2362 Coma scale, best motor response, obeys commands, at arrival to emergency department; F03.90 Unspecified dementia, unspecified severity, without behavioral disturbance, psychotic disturbance, mood disturbance, and anxiety; Z88.0 Allergy status to penicillin; Z88.4 Allergy status to anesthetic agent; Z88.5 Allergy status to narcotic agent; Z88.1 Allergy status to other antibiotic agents; Z88.8 Allergy status to other drugs, medicaments and biological substances; Z96.611 Presence of right artificial shoulder joint; Z79.51 Long term (current) use of inhaled steroids; Z98.890 Other specified postprocedural states; Z90.710 Acquired absence of both cervix and uterus; Z86.010 Personal history of colon polyps; Z87.19 Personal history of other diseases of the digestive system; Z87.09 Personal history of other diseases of the respiratory system; Z90.49 Acquired absence of other specified parts of digestive tract; Z90.89 Acquired absence of other organs; Z95.0 Presence of cardiac pacemaker; Z86.711 Personal history of pulmonary embolism; Z79.01 Long term (current) use of anticoagulants; W01.190A Fall on same level from slipping, tripping and stumbling with subsequent striking against furniture, initial encounter
CPT/HCPCS: 36415; 70450; 70486; 71045; 72125; 72170; 80053; 85007; 85027; 85610; 85730

== ENCOUNTER 2018-08-12 11:07 | Emergency (ER) | payer MEDICARE, MEDICAID ==
[~2018-08-12] VITALS: Ht 162.6 cm; Wt 95.5 kg
--- OUTSIDE RECORDS SUMMARY | 2018-08-12 11:17 | XMS REPORT | Continuity of Care Document ---
Author Author [facility] Organization [facility] Address Unknown Phone Unavailable Allergies Active Description [...] (BULK) MODERATE DERMATOLOGICAL - PHUONG Yes ketorolac [id number] Drug Allergy Mild N/A 08/13/2015 Yes morphine [id number] Drug Allergy Mild N/A 08/13/2015 Yes Penicillins [id number] Drug Allergy Mild N/A 08/13/2015 Yes tetracycline [id number] Drug Allergy Mild N/A 08/13/2015 Yes aspirin NKMA Medium N/A 11/23/2015 Yes Paxil NKMA N/A N/ A 11/23/2015 Yes tetracycline NKMA Medium N/A 11/23/2015 Yes Toradol NKMA Severe N/A 11/23/2015 Yes paroxetine [id number] Drug Allergy Unknown N/A 02/24/2016 Medications Medication [...] 11/23/2015 IntraMuscular 0.5 mL, IntraMuscular, As Indicated HYDROcodone-acetaminophen([place] 5 mg-325 mg oral tablet) 1 tabs [...] MG 07/18/2016 Daily&0900 MultiVits (Thera M Plus) (pkidkrgu-tsfb-jsmgxbp) oral tablet TAB 06/19/2016 07/18/2016 Daily&0900 CALCIUM [...] FOR REMOVAL OF INTERNAL FIXATION DEVICE 11/24/2015 [facility] ODILIA LEONG Ot F41.9 ANXIETY DISORDER, UNSPECIFIED 11/24/2015 [facility] ODILIA LEONG Ot S01.112A LACERATION W/O FB OF LEFT EYELID AND PER [facility] S[facility].8XXA FRACTURES OF OTH SKULL AND FACIAL BONES, 11/24/2015 [facility]WE[facility] ODILIA LEONG Ot S06.0X0A CONCUSSION WITHOUT LOSS OF CONSCIOUSNESS 11/24/2015 [facility] W17.89XA OTHER FALL FROM ONE LEVEL TO ANOTHER, IN 11/24/2015 [facility] [facility]PRIVATE) [facility] 11/24/2015 JAYA ODILIA Baptiste Ot Y99.8 OTHER EXTERNAL CAUSE STATUS 11/26/2015 [facility] F41.9 ANXIETY DISORDER, UNSPECIFIED 11/26/2015 [facility] S01.112A LACERATION W/O FB OF LEFT EYELID AND PER 11/26/2015 [facility] S02.8XXA FRACTURES OF OTH SKULL AND FACIAL BONES, 11/26/2015 [facility] ODILIA LEONG Ot S06.0X0A CONCUSSION WITHOUT LOSS OF CONSCIOUSNESS 11/26/2015 [facility] W17.89XA OTHER FALL FROM ONE LEVEL TO ANOTHER, IN 11/26/2015 [facility] ODILIA Baptiste Ot Y92.[address] IN [facility]FAMILY (PRIVATE) [facility] 11/26/2015 [facility] ODILIA Baptiste Ot Y99.8 OTHER [...] NIX MD Ot Y92.[address] IN [facility] NON-INSTITUT (PRIVATE 09/27/2017 SPIKE NIX MD, [...] STATUS TO OTH DRUG/MEDS/BIOL SUB 09/27/2017 SPIKE NXI MD, Ot Z90.49 ACQUIRED ABSENCE OF OTHER [...] Z88.0 ALLERGY STATUS TO PENICILLIN 09/28/2017 SPIKE INX MD, Ot Z88.1 ALLERGY STATUS TO OTHER [...] UNSPECI 11/13/2017 SUSIE RAMIREZ MD Ot E88.01 BBNGW-6-VMWXYLEDECX DEFICIENCY 11/13/2017 SUSIE RAMIREZ MD Ot F41.9 [...] 11/13/2017 SUSIE RAMIREZ MD Ot Z79.899 OTHER SNF (CURRENT) DRUG THERAPY 11/13/2017 SUSIE RAMIREZ MD Ot Z95.0 PRESENCE OF CARDIAC PACEMAKER 11/16/2017 ALVAREZ DUMONT REPTILE FARMER Ot Z12.31 ENCNTR SCREEN MAMMOGRAM FOR MALIGNANT NE 11/27/2017 SUSIE RAMIREZ MD Ot D47.3 ESSENTIAL (HEMORRHAGIC) THROMBOCYTHEMIA 11/27/2017 SUSIE RAMIREZ MD Ot D72.829 ELEVATED WHITE BLOOD CELL COUNT, UNSPECI 11/27/2017 SUSIE RAMIREZ MD Ot E88.01 NTKPS-8-FBHVKOEYHJV DEFICIENCY 11/27/2017 SUSIE RAMIREZ MD Ot F41.9 [...] 11/27/2017 SUSIE RAMIREZ MD Ot Z79.899 OTHER SNF (CURRENT) DRUG THERAPY 11/27/2017 SUSIE RAMIREZ MD Ot Z95.0 PRESENCE OF CARDIAC PACEMAKER 12/03/2017 ALVAREZ DUMONT REPTILE FARMER Ot Z12.31 ENCNTR SCREEN MAMMOGRAM FOR MALIGNANT NE 12/10/2017 ALVAREZ DUMONT REPTILE FARMER Ot Z12.31 ENCNTR SCREEN MAMMOGRAM FOR MALIGNANT NE 12/14/2017 SUSIE RAMIREZ MD Ot D47.3 ESSENTIAL (HEMORRHAGIC) THROMBOCYTHEMIA 12/14/2017 SUSIE RAMIREZ MD Ot D72.829 ELEVATED WHITE BLOOD CELL COUNT, UNSPECI 12/14/2017 SUSIE RAMIREZ MD Ot E88.01 KUKIL-4-VEXPJHXHBFM DEFICIENCY 12/14/2017 SUSIE RAMIREZ MD Ot F41.9 [...] 12/14/2017 SUSIE RAMIREZ MD Ot Z79.899 OTHER SNF (CURRENT) DRUG THERAPY 12/14/2017 SUSIE RAMIREZ MD Ot Z95.0 PRESENCE OF CARDIAC PACEMAKER 12/24/2017 SUSIE RAMIREZ MD Ot D47.3 ESSENTIAL (HEMORRHAGIC) THROMBOCYTHEMIA 12/24/2017 SUSIE RAMIREZ MD Ot D72.829 ELEVATED WHITE BLOOD CELL COUNT, UNSPECI 12/24/2017 SUSIE RAMIREZ MD Ot E88.01 MBIXO-0-VQZULKHCBDP DEFICIENCY 12/24/2017 SUSIE RAMIREZ MD Ot F41.9 [...] 12/24/2017 SUSIE RAMIREZ MD Ot Z79.899 OTHER SNF (CURRENT) DRUG THERAPY 12/24/2017 SUSIE RAMIREZ MD Ot Z95.0 PRESENCE OF CARDIAC PACEMAKER 12/27/2017 SUSIE RAMIREZ MD Ot D47.3 ESSENTIAL (HEMORRHAGIC) THROMBOCYTHEMIA 12/27/2017 SUSIE RAMIREZ MD Ot D72.829 ELEVATED WHITE BLOOD CELL COUNT, UNSPECI 12/27/2017 SUSIE RAMIREZ MD Ot E88.01 AZIPR-9-ZZBPZECORJI DEFICIENCY 12/27/2017 SUSIE RAMIREZ MD Ot F41.9 ANXIETY DISORDER, UNSPECIFIED 12/27/2017 SUSIE ARMIREZ MD Ot I10 ESSENTIAL (PRIMARY) HYPERTENSION 12/27/2017 [...] 12/27/2017 SUSIE RAMIREZ MD Ot Z79.899 OTHER GROUP UNDERWRITER (CURRENT) DRUG THERAPY 12/27/2017 SUSIE RAMIREZ MD Ot Z95.0 PRESENCE OF CARDIAC PACEMAKER 02/03/2018 CRICKET ARAUJO APRN Ot J45.909 UNSPECIFIED ASTHMA, UNCOMPLICATED 02/03/2018 CRICKET ARAUJO APRN Ot R06.02 SHORTNESS OF BREATH 02/05/2018 SUSIE RAMIREZ MD Ot D47.3 ESSENTIAL (HEMORRHAGIC) THROMBOCYTHEMIA 02/05/2018 SUSIE RAMIREZ MD Ot D72.829 ELEVATED WHITE BLOOD CELL COUNT, UNSPECI 02/05/2018 SUSIE RAMIREZ MD Ot E88.01 GKLGZ-9-GUSJTRYSFJG DEFICIENCY 02/05/2018 SUSIE RAMIREZ MD Ot F41.9 [...] 02/05/2018 SUSIE RAMIREZ MD Ot Z79.899 OTHER GROUP UNDERWRITER (CURRENT) DRUG THERAPY 02/05/2018 SUSIE RAMIREZ MD [...] UNSPECI 03/02/2018 SUSIE RAMIREZ MD Ot E88.01 JTBUU-9-ZVICBINULUD DEFICIENCY 03/02/2018 SUSIE RAMIREZ MD Ot F41.9 [...] 03/02/2018 SUSIE RAMIREZ MD Ot Z79.899 OTHER SNF (CURRENT) DRUG THERAPY 03/02/2018 SUSIE RAMIREZ MD Ot Z95.0 PRESENCE OF CARDIAC PACEMAKER 03/08/2018 SUSIE RAMIREZ MD Ot D47.3 ESSENTIAL (HEMORRHAGIC) THROMBOCYTHEMIA 03/08/2018 JAMES KEATING, SUSIE Ot D72.829 ELEVATED WHITE BLOOD CELL COUNT, UNSPECI 03/08/2018 SUSIE RAMIREZ MD Ot E88.01 TANXP-4-POBCHVJWVGM DEFICIENCY 03/08/2018 SUSIE RAMIREZ MD Ot F41.9 [...] 03/08/2018 SUSIE RAMIREZ MD Ot Z79.899 OTHER GROUP UNDERWRITER (CURRENT) DRUG THERAPY 03/08/2018 SUSIE RAMIREZ MD [...] UNSPECI 03/22/2018 SUSIE RAMIREZ MD Ot E88.01 ZPTIZ-3-OKHPDXGJWRW DEFICIENCY 03/22/2018 SUSIE RAMIREZ MD Ot F41.9 [...] 03/22/2018 SUSIE RAMIREZ MD Ot Z79.899 OTHER GROUP UNDERWRITER (CURRENT) DRUG THERAPY 03/22/2018 SUSIE RAMIREZ MD [...] 04/16/2018 CAS KEATING, Kody CISNEROS Ot E88.01 ROTJA-3-EOQKMEUWZCE DEFICIENCY 04/16/2018 CAS KEATING, Kody CISNEROS Ot R06.02 SHORTNESS OF BREATH 04/22/2018 KETTY KEATING, BRAD Aguilar Ot 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, THORACIC REGION 04/22/2018 KETTY KEATING, BRAD Aguilar Ot M47.814 SPONDYLOSIS W/O MYELOPATHY OR RADICULOPA 04/27/2018 CRICKET ARAUJO APRN Ot E88.01 GHAHU-6-SYESFPYEWLV DEFICIENCY 04/27/2018 CRICKET ARAUJO APRN Ot F41.9 ANXIETY DISORDER, UNSPECIFIED 04/27/2018 CRICKET ARAUJO APRN Ot I26.99 OTHER PULMONARY EMBOLISM WITHOUT ACUTE C 04/27/2018 CRICKET ARAUJO APRN Ot M19.90 UNSPECIFIED OSTEOARTHRITIS, UNSPECIFIED 04/27/2018 CRICKET ARAUJO APRN Ot Z95.5 PRESENCE OF CORONARY ANGIOPLASTY IMPLANT 04/28/2018 TRACEE FLETCHER MD Ot E78.00 PURE HYPERCHOLESTEROLEMIA, UNSPECIFIED 04/28/2018 TRACEE FLETCHER MD Ot E88.01 ZSWSU-9-MQKNZGNOAHF DEFICIENCY 04/28/2018 TRACEE FLETCHER MD Ot F03.90 UNSPECIFIED DEMENTIA WITHOUT BEHAVIORAL 04/28/2018 TRACEE FLETCHER MD Ot F41.9 ANXIETY DISORDER, UNSPECIFIED 04/28/2018 TRACEE FLETCHER MD Ot I10 ESSENTIAL (PRIMARY) HYPERTENSION 04/28/2018 TRACEE FLETCHER MD Ot I25.10 ATHSCL HEART DISEASE OF [place] CORONARY 04/28/2018 TRACEE FLETCHER MD Ot I26.99 [...] F03.90 UNSPECIFIED DEMENTIA WITHOUT BEHAVIORAL 04/30/2018 MARTA LBAIR APRN Ot F41.9 ANXIETY DISORDER, UNSPECIFIED 04/30/2018 MARTA BLAIR APRN Ot I10 ESSENTIAL (PRIMARY) HYPERTENSION 04/30/2018 MARTA BLAIR APRN Ot I26.99 OTHER PULMONARY EMBOLISM WITHOUT ACUTE C 04/30/2018 MARTA BLAIR APRN Ot J44.9 CHRONIC OBSTRUCTIVE PULMONARY DISEASE, U 04/30/2018 MARTA BLAIR APRN Ot M54.6 PAIN IN THORACIC SPINE 04/30/2018 MARTA BLAIR APRN Ot Z79.01 SNF (CURRENT) USE OF ANTICOAGULANT 04/30/2018 MARTA BLAIR APRN Ot Z79.51 SNF (CURRENT) USE OF INHALED STERO 04/30/2018 MARTA [...] STATES 05/02/2018 CRICKET ARAUJO APRN Ot E88.01 DXPRR-7-UCCSOZXHZBA DEFICIENCY 05/02/2018 CRICKET ARAUJO APRN Ot F41.9 ANXIETY DISORDER, UNSPECIFIED 05/02/2018 CRICKET ARAUJO REPTILE FARMER Ot I26.99 OTHER PULMONARY EMBOLISM WITHOUT ACUTE [...] SPINE 05/03/2018 MARTA BLAIR APRN Ot Z79.01 SNF (CURRENT) USE OF ANTICOAGULANT 05/03/2018 MARTA BLAIR APRN Ot Z79.51 SNF (CURRENT) USE OF INHALED STERO 05/03/2018 MARTA [...] J44.9 CHRONIC OBSTRUCTIVE PULMONARY DISEASE, U 05/10/2018 MRATA BLAIR APRN Ot M54.6 PAIN IN THORACIC SPINE 05/10/2018 MARTA BLAIR APRN Ot Z79.01 SNF (CURRENT) USE OF ANTICOAGULANT 05/10/2018 MARTA BLAIR APRN Ot Z79.51 GROUP UNDERWRITER (CURRENT) USE OF INHALED STERO 05/10/2018 MARTA [...] TO OTH DRUG/MEDS/BIOL SUB 05/10/2018 MARTA BLAIR REPTILE FARMER Ot Z90.710 ACQUIRED ABSENCE OF BOTH CERVIX AND UTER 05/10/2018 MARTA BLAIR REPTILE FARMER Ot Z95.0 PRESENCE OF CARDIAC PACEMAKER 05/10/2018 MARTA BLAIR REPTILE FARMER Ot Z98.890 OTHER SPECIFIED POSTPROCEDURAL STATES 06/01/2018 [...] UNSPECI 06/01/2018 SUSIE RAMIREZ MD Ot E88.01 PWZAQ-7-NWYZDSKHYFY DEFICIENCY 06/01/2018 JAMES MD, RICHARDS Ot F41.9 ANXIETY DISORDER, UNSPECIFIED 06/01/2018 SUSIE RAMIREZ MD Ot I10 ESSENTIAL (PRIMARY) HYPERTENSION 06/01/2018 SUSIE RAMIREZ MD Ot J44.9 CHRONIC OBSTRUCTIVE PULMONARY DISEASE, U 06/01/2018 SUSIE RAMIREZ MD Ot J45.909 UNSPECIFIED ASTHMA, UNCOMPLICATED 06/01/2018 SUSIE RAMIREZ MD Ot M17.0 BILATERAL PRIMARY OSTEOARTHRITIS OF [place] 06/01/2018 SUSIE RAMIREZ MD Ot R06.02 SHORTNESS OF BREATH 06/01/2018 SUSIE RAMIREZ MD Ot R07.9 CHEST PAIN, UNSPECIFIED 06/01/2018 SUSIE RAMIREZ MD Ot R19.7 DIARRHEA, UNSPECIFIED 06/01/2018 SUSIE RAMIREZ MD Ot Z79.899 OTHER GROUP UNDERWRITER (CURRENT) DRUG THERAPY 06/01/2018 SUSIE RAMIREZ MD Ot Z95.0 PRESENCE OF CARDIAC PACEMAKER 06/01/2018 BRAD HDEZ MD Ot 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, THORACIC REGION 06/01/2018 BRAD HDEZ MD Ot M47.814 SPONDYLOSIS W/O MYELOPATHY OR RADICULOPA 06/01/2018 CAS KEATING, Kody CISNEROS Ot E88.01 PCOVM-3-XZBMKJLFBFJ DEFICIENCY 06/01/2018 Kody CARDOZO MD Ot R06.02 SHORTNESS OF BREATH 06/01/2018 CRICKET ARAUJO APRN Ot E88.01 HYUWD-3-XYPXTUNENAS DEFICIENCY 06/01/2018 CRICKET ARAUJO APRN Ot F41.9 ANXIETY DISORDER, UNSPECIFIED 06/01/2018 CRICKET ARAUJO REPTILE FARMER Ot I26.99 OTHER PULMONARY EMBOLISM WITHOUT ACUTE C 06/01/2018 CRICKET ARAUJO APRN Ot M19.90 UNSPECIFIED OSTEOARTHRITIS, UNSPECIFIED 06/01/2018 CRICKET ARAUJO APRN Ot Z95.5 PRESENCE OF CORONARY ANGIOPLASTY IMPLANT 06/01/2018 MARTA BLAIR APRN Ot E78.00 PURE HYPERCHOLESTEROLEMIA, UNSPECIFIED 06/01/2018 MARTA BLAIR APRN Ot E87.1 HYPO-OSMOLALITY AND HYPONATREMIA 06/01/2018 MARTA BLAIR APRN Ot F03.90 UNSPECIFIED DEMENTIA WITHOUT BEHAVIORAL 06/01/2018 MARTA BLAIR REPTILE FARMER Ot F41.9 ANXIETY DISORDER, UNSPECIFIED 06/01/2018 MARTA [...] INITIAL 06/01/2018 MARTA BLAIR APRN Ot Y92.[address] [facility] [address] IN [facility] NON-INST[facility] (PRIVATE 06/01/2018 MARTA BLAIR APRN Ot Z79.01 GROUP UNDERWRITER (CURRENT) USE OF ANTICOAGULANT 06/01/2018 MARTA BLAIR APRN Ot Z79.51 SNF (CURRENT) USE OF INHALED STERO 06/01/2018 MARTA BLAIR APRN Ot Z79.52 SNF (CURRENT) USE OF SYSTEMIC STER 06/01/2018 MARTA [...] BLAIR APRN Ot Y92.[address] IN [facility] NON-INSTITUT (PRIVATE 06/04/2018 MARTA BLAIR APRN Ot Z79.01 SNF (CURRENT) USE OF ANTICOAGULANT 06/04/2018 MARTA BLAIR APRN Ot Z79.51 GROUP UNDERWRITER (CURRENT) USE OF INHALED STERO 06/04/2018 MARTA BLAIR APRN Ot Z79.52 SNF (CURRENT) USE OF SYSTEMIC STER 06/04/2018 MARTA [...] UNSPECI 06/04/2018 SUSIE RAMIREZ MD Ot E88.01 AKQAV-1-TYBZMYOGFLI DEFICIENCY 06/04/2018 SUSIE RAMIREZ MD Ot F41.9 [...] 06/04/2018 SUSIE RAMIREZ MD Ot Z79.899 OTHER SNF (CURRENT) DRUG THERAPY 06/04/2018 SUSIE RAMIREZ MD [...] UNSPECI 06/28/2018 SUSIE RAMIREZ MD Ot E88.01 RAYYF-3-EQMWVVIMPPK DEFICIENCY 06/28/2018 SUSIE RAMIREZ MD Ot F41.9 [...] 06/28/2018 SUSIE RAMIREZ MD Ot Z79.899 OTHER SNF (CURRENT) DRUG THERAPY 06/28/2018 SUSIE RAMIREZ MD Ot Z95.0 PRESENCE OF CARDIAC PACEMAKER 06/28/2018 KETTY KEATING, BRAD Aguilar Ot 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, THORACIC REGION 06/28/2018 KETTY KEATING, BRAD Aguilar Ot M47.814 SPONDYLOSIS W/O MYELOPATHY OR RADICULOPA 06/28/2018 Kody CARDOZO MD Ot E88.01 WPOQS-1-YQZUFSUYZJK DEFICIENCY 06/28/2018 Kody CARDOZO MD Ot R06.02 SHORTNESS OF BREATH 06/28/2018 CRICKET ARAUJO APRN Ot E88.01 FZOZU-5-TWEBRXVJLTQ DEFICIENCY 06/28/2018 CRICKET ARAUJO APRN Ot F41.9 ANXIETY DISORDER, UNSPECIFIED 06/28/2018 CRICKET ARAUJO APRN Ot I26.99 OTHER PULMONARY EMBOLISM WITHOUT ACUTE C 06/28/2018 CRICKET ARAUJO APRN Ot M19.90 UNSPECIFIED OSTEOARTHRITIS, UNSPECIFIED 06/28/2018 CRICKET ARAUJO APRN Ot Z95.5 PRESENCE OF CORONARY ANGIOPLASTY IMPLANT 06/28/2018 BERNICE GOODSON Ot N28.1 CYST OF KIDNEY, ACQUIRED 06/28/2018 ALVAREZ DUMONT REPTILE FARMER Ot R92.8 OTH ABN AND INCONCLUSIVE FINDINGS ON DX 07/12/2018 BERNICE GOODSON Ot N28.1 CYST OF KIDNEY, ACQUIRED 07/12/2018 ALVAREZ DUMONT APRN Ot Z09 ENCNTR FOR F/U EXAM AFT TRTMT FOR COND O 07/15/2018 SUSIE RAMIREZ MD Ot D47.3 ESSENTIAL (HEMORRHAGIC) THROMBOCYTHEMIA 07/15/2018 SUSIE RAMIREZ MD Ot D72.829 ELEVATED WHITE BLOOD CELL COUNT, UNSPECI 07/15/2018 SUSIE RAMIREZ MD Ot E88.01 NFPXX-6-MOOGSLWHNYT DEFICIENCY 07/15/2018 SUSIE RAMIREZ MD Ot F41.9 [...] 07/15/2018 SUSIE RAMIREZ MD Ot Z79.899 OTHER GROUP UNDERWRITER (CURRENT) DRUG THERAPY 07/15/2018 SUSIE RAMIREZ MD Ot Z95.0 PRESENCE OF CARDIAC PACEMAKER 07/16/2018 SUSIE RAMIREZ MD Ot D47.3 ESSENTIAL (HEMORRHAGIC) THROMBOCYTHEMIA 07/16/2018 SUSIE RAMIREZ MD Ot D72.829 ELEVATED WHITE BLOOD CELL COUNT, UNSPECI 07/16/2018 SUSIE RAMIREZ MD Ot E88.01 WTSQK-2-EZGGTTWGJRO DEFICIENCY 07/16/2018 SUSIE RAMIREZ MD Ot F41.9 [...] 07/16/2018 SUSIE RAMIREZ MD Ot Z79.899 OTHER GROUP UNDERWRITER (CURRENT) DRUG THERAPY 07/16/2018 SUSIE RAMIREZ MD Ot Z95.0 PRESENCE OF CARDIAC PACEMAKER 07/19/2018 SUSIE RAMIREZ MD Ot D47.3 ESSENTIAL (HEMORRHAGIC) THROMBOCYTHEMIA 07/19/2018 SUSIE RAMIREZ MD Ot D72.829 ELEVATED WHITE BLOOD CELL COUNT, UNSPECI 07/19/2018 SUSIE RAMIREZ MD Ot E88.01 JIJRY-1-ELHMMHOSQMT DEFICIENCY 07/19/2018 SUSIE RAMIREZ MD Ot F41.9 [...] 07/19/2018 SUSIE RAMIREZ MD Ot Z79.899 OTHER GROUP UNDERWRITER (CURRENT) DRUG THERAPY 07/19/2018 SUSIE RAMIREZ MD Ot Z95.0 PRESENCE OF CARDIAC PACEMAKER 07/19/2018 BERNICE GOODSON Ot N28.1 CYST OF KIDNEY, ACQUIRED 07/21/2018 SUSIE RAMIREZ MD Ot D47.3 ESSENTIAL (HEMORRHAGIC) THROMBOCYTHEMIA 07/21/2018 SUSIE RAMIREZ MD, Ot D72.829 ELEVATED WHITE BLOOD CELL COUNT, UNSPECI 07/21/2018 SUSIE RAMIREZ MD, Ot E88.01 BAYBY-0-AMMHITVTOFE DEFICIENCY 07/21/2018 SUSIE RAMIREZ MD, Ot F41.9 [...] 07/21/2018 SUSIE RAMIREZ MD, Ot Z79.899 OTHER SNF (CURRENT) DRUG THERAPY 07/21/2018 SUSIE RAMIREZ MD, Ot Z95.0 PRESENCE OF CARDIAC PACEMAKER Procedures Code Description Performed By Performed On [id number] INSERTION OF PACEMAKER LEAD INTO RIGHT A 07/17/2017 [id number] INSERTION OF PACEMAKER LEAD INTO R VENTR 07/17/2017 5NS900S INSERT PACE. DUAL MAMADOU IN CHEST SUBCU/FA [...] 5-8.5 Urine-Protein Negative Negative Urine-RBC 0-2/HPF Urine-Specific [place] <=1.005 1.000-1.030 Urine-WBC 2-5/HPF Urobilinogen 0.2 0.2-1.0 [...] NR Manual blood lymphocytes/100 leukocytes 20 % [facility] Blood erythrocyte morphology finding identification NORMAL [facility] Serum or plasma creatine kinase MB measurement [...] FOR INFLUENZA A AND B ANTIGENS BY [facility] Bacterial blood culture - 07/13/17 12:05 Bacterial [...] RESULTS NEGATIVE FOR ANTIGEN AND TOXIN A/B [facility] Complete blood count (CBC) with automated white [...] culture - 09/27/17 00:50 Bacterial urine culture [id number] NRG COLONY COUNT >100,000/ML NR FTX;REPORTABLE SENSITIVITY [...] by minimum inhibitory concentration < = NRG [id number] - 04/26/18 15:10 Serum or plasma urea [...] culture - 06/01/18 15:25 Bacterial urine culture [id number] NRG COLONY COUNT >100,000/ML NRG FTX;REPORTABLE ID [...] plasma calcium measurement (mass/volume) 9.9 mg/dL 8.5-10.1 Complete blood count (CBC) with automated white blood cell (WBC) differential - 08/11/18 07:01 Blood leukocytes automated count (number/volume) 22.3 10*3/uL 4.3-11.0 Blood erythrocytes automated count (number/volume) 4.68 10*6/uL 4.35-5.85 Venous blood hemoglobin measurement (mass/volume) 13.1 g/dL 11.5-16.0 Blood hematocrit (volume fraction) 40 % 35-52 Automated erythrocyte mean corpuscular volume 86 [foz_us] 80-99 Automated erythrocyte mean corpuscular hemoglobin (mass per erythrocyte) 28 pg 25-34 Automated erythrocyte mean corpuscular hemoglobin concentration measurement ( mass/volume) 33 g/dL 32-36 Automated erythrocyte distribution width ratio 14.9 % 10.0-14.5 Automated blood platelet count (count/volume) 500 10*3/uL 130-400 Automated blood platelet mean volume measurement 9.3 [foz_us] 7.4-10.4 Automated blood neutrophils/100 leukocytes 72 % 42-75 Automated blood lymphocytes/100 leukocytes 21 % 12-44 Blood monocytes/100 leukocytes 7 % 0-12 Automated blood eosinophils/100 leukocytes 0 % 0-10 Automated blood basophils/100 leukocytes 0 % 0-10 Blood neutrophils automated count (number/volume) 16.1 10*3 1.8-7.8 Blood lymphocytes automated count (number/volume) 4.7 10*3 1.0-4.0 Blood monocytes automated count (number/volume) 1.4 10*3 0.0-1.0 Automated eosinophil count 0.1 10*3/uL 0.0-0.3 Automated blood basophil count (count/volume) 0.0 10*3/uL 0.0-0.1 PT panel in platelet poor plasma by coagulation assay - 08/11/18 07:01 Prothrombin time (PT) in platelet poor plasma by coagulation assay 13.7 s 12.2-14.7 INR in platelet poor plasma or blood by coagulation assay 1.0 0.8-1.4 Activated partial thromboplastin time (aPTT) in platelet poor plasma bycoagulation assay - 08/11/18 07:01 Activated partial thromboplastin time (aPTT) in platelet poor plasma bycoagulation assay 22 s 24-35 Blood manual differential performed detection - 08/11/18 07:01 Blood monocytes/100 leukocytes 4 % NRG Manual blood segmented neutrophils/100 leukocytes 73 % NRG Blood band neutrophils/100 leukocytes 1 % NRG Manual blood lymphocytes/100 leukocytes 22 % NRG Manual eosinophils/100 leukocytes in nose 0 % NRG Manual blood basophils/100 leukocytes 0 % NRG Blood ovalocytes detection by light microscopy SLIGHT NRG Comprehensive metabolic panel - 08/11/18 07:30 Serum or plasma sodium measurement (moles/volume) 130 mmol/L 135-145 Serum or plasma potassium measurement (moles/volume) 4.1 mmol/L 3.6-5.0 Serum or plasma chloride measurement (moles/volume) 95 mmol/L 98-107 Carbon dioxide 25 mmol/L 21-32 Serum or plasma anion gap determination (moles/volume) 10 mmol/L 5-14 Serum or plasma urea nitrogen measurement (mass/volume) 25 mg/dL 7-18 Serum or plasma creatinine measurement (mass/volume) 1.05 mg/dL 0.60-1.30 Serum or plasma urea nitrogen/creatinine mass ratio 24 NRG Serum or plasma creatinine measurement with calculation of estimated glomerular filtration rate 51 NRG Serum or plasma glucose measurement (mass/volume) 88 mg/dL 70-105 Serum or plasma calcium measurement (mass/volume) 10.4 mg/dL 8.5-10.1 Serum or plasma total bilirubin measurement (mass/volume) 0.5 mg/dL 0.1-1.0 Serum or plasma alkaline phosphatase measurement (enzymatic activity/volume) 64 U/L 40-136 Serum or plasma aspartate aminotransferase measurement (enzymatic activity/ volume) 20 U/L 5-34 Serum or plasma alanine aminotransferase measurement (enzymatic activity/volume ) 14 U/L 0-55 Serum or plasma protein measurement (mass/volume) 7.4 g/dL 6.4-8.2 Serum or plasma albumin measurement (mass/volume) 4.2 g/dL 3.2-4.5 CALCIUM CORRECTED 10.2 mg/dL 8.5-10.1 Encounters ACCT No. Visit Date/Time Discharge Status Pt. Type Provider Facility Loc./Unit Complaint [id number] 08/11/2018 05:21:00 08/11/2018 09:11:00 DIS Emergency ODILIA LAKE DO [facility] ER FELL, HIT HEAD ON NIGHTSTAND [id number] 07/16/2018 09:51:00 07/16/2018 23:59:59 CLS Outpatient SUSIE RAMIREZ MD [facility] ONC [id number] 04/16/2018 09:37:00 07/15/2018 00:01:00 DIS Outpatient SUSIE RAMIREZ MD [facility] ONC [id number] 06/28/2018 13:40:00 06/28/2018 23:59:59 CLS Outpatient ALVAREZ DUMONT APRN [facility] RAD 6 MONTH FOLLOW UP [id number] 06/15/2018 08:17:00 06/15/2018 23:59:59 CLS Outpatient BERNICE GOODSON [facility] RAD LT KIDNEY NODULE [id number] 06/01/2018 13:36:00 06/01/2018 16:26:00 DIS Emergency MARTA BLAIR REPTILE FARMER [facility] ER FALL;HEAD INJ [id number] 04/30/2018 21:35:00 04/30/2018 23:20:00 DIS Emergency MARTA BLAIR REPTILE FARMER [facility] ER BACK PAIN [id number] 04/26/2018 16:25:00 04/28/2018 13:00:00 DIS Inpatient TRACEE FLETCHER MD [facility] 4TH BILAT PE [id number] 04/26/2018 15:15:00 04/26/2018 23:59:59 CLS Preadmit CRICKET ARAUJO [employer]PTILE FARMER [facility] RAD SOB [id number] 04/26/2018 15:00:00 04/26/2018 23:59:59 CLS Outpatient CRICKET ARAUJO APRN [facility] RAD SOB [id number] 04/15/2018 12:45:00 04/15/2018 23:59:59 CLS Outpatient Kody CARDOZO MD [facility] CARD SOB [id number] 03/22/2018 11:05:00 03/22/2018 23:59:59 CLS Outpatient BRAD HDEZ MD [facility] RAD THORACIC BACK PAIN [id number] 03/17/2018 15:31:00 03/17/2018 23:59:59 CLS Preadmit Kody CARDOZO MD [facility] RAD SOB [id number] 03/10/2018 15:30:00 03/10/2018 23:59:59 CLS Outpatient CRICKET ARAUJO APRN [facility] RT SOB, ASTHMA [id number] 01/15/2018 10:50:00 02/05/2018 00:01:00 DIS Outpatient SUSIE RAMIREZ MD [facility] ONC [id number] 10/16/2017 13:08:00 12/24/2017 00:01:00 DIS Outpatient SUSIE RAMIREZ MD [facility] ONC [id number] 11/13/2017 09:47:00 11/13/2017 23:59:59 CLS Outpatient ALVAREZ DUMONT APRN [facility] RAD SCREENING [id number] 09/26/2017 22:42:00 09/27/2017 02:00:00 DIS Emergency SPIKE NIX MD [facility] ER FALL INJ SHOULDER [id number] 09/01/2017 15:31:00 09/01/2017 23:59:59 CLS Preadmit CRICKET ARAUJO APRN [facility] RT SOB,ASTHMA [id number] 07/13/2017 12:30:00 07/18/2017 13:50:00 DIS Inpatient Kody CARDOZO MD [facility] ICU SYMPTOMATIC BRADYCARDIA, DEHYDRATION W/ ELECTROLYT [id number] 05/21/2017 10:29:00 05/21/2017 23:59:59 CLS Outpatient ESTEFANIA CLEMENTE MD [facility] RAD M48.50XA [id number] 11/04/2016 13:28:00 11/04/2016 23:59:59 CLS Outpatient LOY HUGHES DO [facility] RAD Z12.39 [id number] 10/03/2016 06:43:00 10/03/2016 09:51:00 DIS Outpatient LIZZY CORDOBA MD [facility] ENDO IBS, LUQ/LLQ PAIN, HX COLON POLYPS [id number] 10/01/2016 05:35:00 10/01/2016 23:59:59 CLS Outpatient LIZZY CORDOBA MD [facility] PREOP ISB,LUQ PAIN,LLQ PAIN [id number] 02/24/2016 20:27:00 02/24/2016 23:00:00 DIS Emergency BOYD KEATING, SPIKE Bernal [facility] ER HTN [id number] 01/01/2016 07:49:00 01/01/2016 23:59:59 CLS Outpatient JUANJO KEATING, DARCI Hartmann [facility] RAD HEADACHE,DIPLOPIA [id number] 11/23/2015 23:30:00 11/24/2015 01:26:00 DIS Emergency JAYA LEONG ODILIA K [facility] ER LAWSON,VOMITING,ANXIETY [id number] 08/13/2015 12:43:00 08/13/2015 14:13:00 DIS Emergency VARGAS DURAND DO [facility] ER IRR HEART RATE [id number] 02/16/2018 10:37:00 Document Registration [id number] 11/23/2015 15:31:00 11/23/2015 19:37:00 DIS Emergency Yeager Curt [facility] ED fall [id number] 11/24/2015 05:16:39 Document Registration [id number] 11/24/2015 05:16:38 Document Registration [id number] 12/18/2017 09:12:00 12/18/2017 23:59:00 DIS Outpatient BRAD MAX [id number] 10/22/2017 15:50:00 10/22/2017 23:59:00 DIS Outpatient BRAD MAX [id number] 04/08/2017 10:00:00 06/26/2017 14:54:00 DIS Outpatient Jazmyn Duarte [id number] 12/05/2016 09:50:00 12/05/2016 23:59:00 DIS Outpatient BRAD MAX [id number] 07/09/2016 09:00:00 10/08/2016 13:15:00 DIS Outpatient BRAD CASTILLO [id number] 06/18/2016 11:32:00 06/27/2016 11:15:00 DIS Inpatient ANNA [facility] ER [id number] 06/18/2016 13:23:06 Document Registration [id number] 11/22/2015 00:00:00 Document Registration [id number] 01/17/2017 08:36:00 Document Registration [id number] 07/02/2017 14:00:00 07/02/2017 23:59:59 CLS Outpatient BRYN KEATING, [facility]EFANIA [facility]
[2018-08-12] MEDS ORDERED: NS IV 1000 ML 1,000 ML IV ONE (11:51)
[2018-08-12 12:09] LABS: BASOPHILS % (AUTO) 0 % (0-10); EOSINOPHILS # (AUTO) 0.4 10^3/uL (0.0-0.3); EOSINOPHILS % (AUTO) 2 % (0-10); HEMATOCRIT 31 % (35-52); HEMOGLOBIN 10.1 G/DL (11.5-16.0); LYMPHOCYTES # (AUTO) 4.7 X 10^3 (1.0-4.0); LYMPHOCYTES % (AUTO) 27 % (12-44); MEAN CORPUSCULAR HEMOGLOBIN 28 PG (25-34); MEAN CORPUSCULAR HGB CONC 33 G/DL (32-36); MEAN CORPUSCULAR VOLUME 85 FL (80-99); MONOCYTES # (AUTO) 1.3 X 10^3 (0.0-1.0); MONOCYTES % (AUTO) 8 % (0-12); NEUTROPHILS # (AUTO) 10.7 X 10^3 (1.8-7.8); NEUTROPHILS % (AUTO) 63 % (42-75); PLATELET COUNT 420 10^3/uL (130-400); RED CELL DISTRIBUTION WIDTH 14.9 % (10.0-14.5); WHITE BLOOD COUNT 17.1 10^3/uL (4.3-11.0)
--- NOTE | 2018-08-12 12:21 | ED Fall/Injury ---
General Chief Complaint: Cardiac/General Problems Stated Complaint: LOW BLOOD PRESSURE Nursing Triage Note: PT BROUGHT TO ER FROM [facility] WITH COMPLAINT OF HYPOTENSION. PER NH, PT WAS SEEN HERE YESTERDAY FOR FALL. PT FELL AND HIT HEAD. NH STATES PTS BP WAS IN THE 70S. STATES PT FELL AGAIN THIS MORNING, UNWITNESSED. INITIAL BP WAS 64/42. WHEN BROUGHT BACK TO ROOM, BP WAS UP TO 111/65. PT STATES SHE FEELS "WOOZY". Source: patient, family (dauter), caregiver (case discussed with Deya at [facility].) Exam Limitations: no limitations History of Present Illness Date Seen by Provider: Aug 12, 2018 Time Seen by Provider: 12:21 Allergies and Home Medications Allergies Coded Allergies: Penicillins (Verified Allergy, Mild, 08/13/15) ketorolac (Verified Allergy, Mild, 08/13/15) morphine (Verified Allergy, Mild, 08/13/15) tetracycline (Verified Allergy, Mild, 08/13/15) paroxetine (Unverified Allergy, Unknown, 02/24/16) Home Medications Acetaminophen 500 Mg Tablet, 1,000 MG PO DAILY, (Reported) TAKES 2 (500 MG) TABLETS Acetaminophen 500 Mg Tablet, 1,000 MG PO BID PRN for PAIN-MILD, (Reported) Amlodipine Besylate 5 Mg Tablet, 5 MG PO HS, (Reported) Budesonide 3 Mg Capdr...er, 9 MG PO DAILY, (Reported) TAKES 3 (3MG) CAPSULES Calcium Carbonate/Vitamin D3 1 Each Tablet, 1 TAB PO DAILY, (Reported) Cholestyramine (with Sugar) 4 Gm Powd.pack, 4 GM PO DAILY PRN for LOOSE STOOLS, (Reported) Citalopram Hydrobromide 10 Mg Tablet, 30 MG PO HS, (Reported) TAKES 3 (10 MG) TABLETS Diphenhydramine HCl 25 Mg Capsule, 25 MG PO BID PRN for ITCHING, (Reported) Estradiol 42.5 Gm Cream.appl, VG HS, (Reported) APPLY PEA SIZED AMOUNT TO OUTER VAGINAL AREA AT BEDTIME Estradiol 10 Mcg Tablet, 10 MCG VG TuFr, (Reported) Fexofenadine HCl 180 Mg Tablet, 180 MG PO DAILY, (Reported) Fluticasone Propionate 16 Gm [place].susp, 1 SPRAY NS DAILY, (Reported) Folic Acid 1 Mg Tablet, 1 MG PO DAILY, (Reported) Hydrochlorothiazide 25 Mg Tablet, 25 MG PO DAILY, (Reported) Ibandronate Sodium 150 Mg Tablet, 150 MG PO EVERY 3 MONTHS, (Reported) DUE NEXT 05-29-18 Lisinopril 20 Mg Tablet, 20 MG PO BID, (Reported) Loperamide HCl 2 Mg Capsule, 2 MG PO Q8H PRN for LOOSE STOOLS, (Reported) Lorazepam 0.5 Mg Tablet, 0.5 MG PO BID, (Reported) Magnesium Oxide 400 Mg Tablet, 400 MG PO BID Prescribed by: MARTA BLAIR on 04/30/182255 Mometasone Furoate 220 Mcg Aer.pow.ba, 1 PUFF IH HS, (Reported) Montelukast Sodium 10 Mg Tablet, 10 MG PO HS, (Reported) Multivitamin 1 Each Tablet, 1 TAB PO DAILY, (Reported) Omeprazole 20 Mg Capsule.dr, 20 MG PO DAILY, (Reported) Polyethylene Glycol 3350 17 Gm Powd.pack, 8.5 GM PO DAILY PRN for CONSTIPATION- 2ND LINE, (Reported) Pravastatin Sodium 40 Mg Tablet, 40 MG PO HS, (Reported) Quetiapine Fumarate 100 Mg Tablet, 100 MG PO HS, (Reported) Rivaroxaban 15 Mg Tablet, 15 MG PO BID@07,17 BIN [id number] N [id number] Prescribed by: TRACEE FLETCHER on 04/28/18 0910 Rivaroxaban 20 Mg Tablet, 20 MG PO DAILY@1700 BIN [id number] N [id number] Prescribed by: TRACEE FLETCHER on 04/28/18 0910 Rivastigmine Tartrate 3 Mg Capsule, 3 MG PO BID, (Reported) Tramadol HCl 50 Mg Tablet, 50 MG PO TID PRN for BACK PAIN, (Reported) Triamcinolone Acetonide 80 Gm Oint...g., TP HS, (Reported) APPLIES TO LABIA MAJORA / MAY MIX WITH ESTRACE CREAM Past Xoepvgq-Drasxb-Ndyuke Hx Patient Social History Alcohol Use: Denies Use Number of Drinks Today: HH Alcohol Beverage of Choice: Wine Recreational Drug Use: No Smoking Status: Never a Smoker 2nd Hand Smoke Exposure: No Recent Foreign Travel: No Contact w/Someone Who Travel: No Recent Infectious Disease Expo: No Recent Hopitalizations: No Immunizations Up To Date Tetanus Booster (TDap): Unknown Date of Pneumonia Vaccine: Feb 10, 2017 Date of Influenza Vaccine: Apr 06, 2018 Seasonal Allergies Seasonal Allergies: No Past Medical History Surgeries: Yes Abdominal, Appendectomy, Eye Surgery, Gallbladder, 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, Joint Replacement, Orthopedic, Pacemaker Respiratory: Yes (ALPHA 1 ANTITRIPSIN DEFICIENCY; BILATERAL P.E.'S 04/2018--ON XARELTO) Asthma, Pulmonary Embolism, COPD Currently Using CPAP: No Currently Using BIPAP: No Cardiac: Yes (PACEMAKER;"VASOVAGAL NERVE PROBLEMS" ) High Cholesterol, Hypertension Neurological: Yes Dementia 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 Disorders: No Female 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 Disorders: Denies, Endometriosis PAYMENT REP History: 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, Menopausal Sexually Transmitted Disease: No HIV/AIDS: No Genitourinary: Yes (INCONTINENCE) Gastrointestinal: Yes (BLEEDING ULCER X 3; PERFORATED ULCER 2006; 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) Gastrointestinal Bleed, Chronic Diarrhea, Polyps, Ulcer, Irritable Bowel Musculoskeletal: Yes Degenerate Disk Disease, Arthritis, Chronic Back Pain, Fractures Endocrine: No HEENT: Yes Cataract Loss of Vision: Denies Hearing Impairment: Hard of Hearing Cancer: No Psychosocial: Yes Anxiety Integumentary: No Blood Disorders: Yes (BILATERAL P.E.'S 04/2018) Family Medical History Blood clots (sister had a blood clot in the brain which caused her  in 2010) Physical Exam Vital Signs Vital Signs - First Documented 08/12/18 11:40 Temp 97.6 Pulse 77 Resp 20 B/P (MAP) 111/65 (80) Pulse Ox 95 O2 Delivery Room Air Capillary Refill : Less Than 3 Seconds Height, Weight, BMI Height: 5'4.00" Weight: 210lbs. 9.0oz. [id number]; 25.1 BMI Method:Stated Progress/Results/Core Measures Results/Orders Lab Results Laboratory Tests Test 08/12/18 12:00 Range/Units White Blood Count 17.1 H 4.3-11.0 10^3/uL Red Blood Count 3.65 L 4.35-5.85 10^6/uL Hemoglobin 10.1 #L 11.5-16.0 G/DL Hematocrit 31 L 35-52 % Mean Corpuscular Volume 85 80-99 FL Mean Corpuscular Hemoglobin 28 25-34 PG Mean Corpuscular Hemoglobin Concent 33 32-36 G/DL Red Cell Distribution Width 14.9 H 10.0-14.5 % Platelet Count 420 H 130-400 10^3/uL Mean Platelet Volume 9.0 7.4-10.4 FL Neutrophils (%) (Auto) 63 42-75 % Lymphocytes (%) (Auto) 27 12-44 % Monocytes (%) (Auto) 8 0-12 % Eosinophils (%) (Auto) 2 0-10 % Basophils (%) (Auto) 0 0-10 % Neutrophils # (Auto) 10.7 H 1.8-7.8 X 10^3 Lymphocytes # (Auto) 4.7 H 1.0-4.0 X 10^3 Monocytes # (Auto) 1.3 H 0.0-1.0 X 10^3 Eosinophils # (Auto) 0.4 H 0.0-0.3 10^3/uL Basophils # (Auto) 0.0 0.0-0.1 10^3/uL Neutrophils % (Manual) 70 % Lymphocytes % (Manual) 24 % Monocytes % (Manual) 5 % Eosinophils % (Manual) 1 % Blood Morphology Comment NORMAL Sodium Level 134 L 135-145 MMOL/L Potassium Level 2.7 L 3.6-5.0 MMOL/L Chloride Level 104 98-107 MMOL/L Carbon Dioxide Level 22 21-32 MMOL/L Anion Gap 8 5-14 MMOL/L Blood Urea Nitrogen 22 H 7-18 MG/DL Creatinine 0.95 0.60-1.30 MG/DL Estimat Glomerular Filtration Rate 57 BUN/Creatinine Ratio 23 Glucose Level 84 70-105 MG/DL Calcium Level 7.6 L 8.5-10.1 MG/DL Corrected Calcium 8.3 L 8.5-10.1 MG/DL Total Bilirubin 0.3 0.1-1.0 MG/DL Aspartate Amino Transf (AST/SGOT) 14 5-34 U/L Alanine Aminotransferase (ALT/SGPT) 10 0-55 U/L Alkaline Phosphatase 49 40-136 U/L Total Protein 5.2 L 6.4-8.2 GM/DL Albumin 3.1 L 3.2-4.5 GM/DL My Orders Orders - BERNICE CLINE Ct Head/Cervical Spine Wo (08/12/18 12:35) Saline Lock/Iv-Start (08/12/18 12:35) Ns Iv 1000 Ml (Sodium Chloride 0.9%) (08/12/18 12:35) Ct Chest/Abdomen/Pelvis W (08/12/18 12:35) Iohexol Injection (Omnipaque 350 Mg/Ml 1 (08/12/18 12:45) Received Contrast (Contrast Received) (08/12/18 12:45) Sodium Chloride Flush (Catheter Flush Sy (08/12/18 12:45) Ns (Ivpb) (Sodium Chloride 0.9% Ivpb Bag (08/12/18 12:45) Ns Iv 1000 Ml (Sodi... W/Potassium Chlor (08/12/18 14:30) Medications Given in ED Current Medications Medications Dose Ordered Sig/Lee Route Start Time Stop Time Status Last Admin Dose Admin Iohexol 100 ml ONCE ONCE IV 08/12/18 12:45 08/12/18 12:46 DC 08/12/18 14:20 100 ML Sodium Chloride 10 ml NEEDED PRN IV 08/12/18 12:45 08/12/18 14:20 10 ML Sodium Chloride 100 ml ONCE ONCE IV 08/12/18 12:45 08/12/18 12:46 DC 08/12/18 14:20 80 ML Sodium Chloride 1,000 ml @ 0 mls/hr Q0M ONCE IV 08/12/18 11:51 08/12/18 14:25 DC 08/12/18 11:45 1,000 MLS/HR Vital Signs/I&O 08/12/18 11:40 Temp 97.6 Pulse 77 Resp 20 B/P (MAP) 111/65 (80) Pulse Ox 95 O2 Delivery Room Air Blood Pressure Mean: 80 Departure Impression Primary Impression: Fall Additional Impressions: Hypokalemia Chronic hyponatremia chronic leukocytosis Disposition: 03 [facility] Condition: Stable Departure-Patient Inst. Decision time for Depature: 16:07 Referrals: BRAD HDEZ MD (PCP/Family) Primary Care Physician Patient Instructions: Hypokalemia (DC), Preventing Falls in the Older Adult Add. Discharge Instructions: All discharge instructions reviewed with patient and/or family. Voiced understanding. Continue usual current medications and current orders. Ice pack as needed for pain. I will see patient at [facility] [place] next week for recheck. Return to the emergency department for worsened symptoms or any other concerns. Scripts Potassium Chloride (Potassium Chloride) 20 Meq Tablet.er 20 MEQ PO BID, #6 TAB 0 Refills Prov: BERNICE CLINE 08/12/18 BERNICE CLINE Aug 12, 2018 12:21
[2018-08-12 12:31] LABS: ALBUMIN 3.1 GM/DL (3.2-4.5); BILIRUBIN,TOTAL 0.3 MG/DL (0.1-1.0); CALCIUM 7.6 MG/DL (8.5-10.1); CREATININE SERUM 0.95 MG/DL (0.60-1.30); POTASSIUM 2.7 MMOL/L (3.6-5.0); TOTAL PROTEIN 5.2 GM/DL (6.4-8.2)
[2018-08-12] MEDS ORDERED: NS IV 1000 ML 1,000 ML IV SCH (12:35)
[2018-08-12 12:43] LABS: EOSINOPHILS % (MANUAL) 1 %; LYMPHOCYTES % (MANUAL) 24 %; MONOCYTES % (MANUAL) 5 %; NEUTROPHILS % (MANUAL) 70 %
[2018-08-12] MEDS ORDERED: POTASSIUM CL 10MEQ/50ML IVPB 50 ML IV SCH (12:45)
[2018-08-12] MEDS ORDERED: NS 100 ML (IVPB) BAG IV ONE (12:45)
[2018-08-12] MEDS ORDERED: CATHETER FLUSH 10 ML SYR IV PRN (12:45)
[2018-08-12] MEDS ORDERED: RECEIVED CONTRAST 20 ML VIAL IV SCH (12:45)
[2018-08-12] MEDS ORDERED: IOHEXOL 350 MG/ML 100 ML (OMNIPAQUE 350) VIAL IV ONE (12:45)
[2018-08-12 12:46] LABS: RBC MORPH NORMAL
[2018-08-12] MEDS ORDERED: POTASSIUM CHLORIDE INJ 10 MEQ in NS IV 1000 ML 1,000 ML IV SCH (14:30)
[2018-08-12] MEDS ORDERED: POTA-51 PO (16:40)
--- NOTE | 2018-08-12 16:47 | Diagnostic Imaging Report ---
PROCEDURE: CT head and CT cervical spine without contrast. TECHNIQUE: Multiple contiguous axial images were obtained through the brain and cervical spine without the use of intravenous contrast. Sagittal and coronal reformations through the cervical spine were then performed. INDICATION: Fall with head and neck injury and pain. Comparison is made with prior CT from one day earlier. CT HEAD: Minimal residual right frontal scalp swelling is noted. Ventricles and sulci are stable. No sulcal effacement, midline shift or hemorrhage is detected. Cisterns are patent. Visualized paranasal sinuses are clear. IMPRESSION: Stable head CT. No acute intracranial process is detected. CT CERVICAL SPINE: Curvature is normal. Minimal anterolisthesis of C3 on C4, C5 on C6 is seen. No fractures are identified. The prevertebral tissues are within normal limits. The odontoid is intact. There is generalized cervical spondylosis. IMPRESSION: No acute bony abnormality is detected. Dictated by: Dictated on workstation # [id number]
--- NOTE | 2018-08-12 16:47 | Diagnostic Imaging Report ---
PROCEDURE: CT chest, abdomen, and pelvis with contrast. TECHNIQUE: Multiple contiguous axial images were obtained through the chest, abdomen, and pelvis after the administration of intravenous contrast. INDICATION: Fall with low blood pressure left lower quadrant pain. CT chest: No definite mediastinal hematoma or great vessel injury is seen. No pericardial fluid or hemothorax is identified. No pulmonary contusion or pneumothorax is seen. There is some scarring or atelectasis in the right lower lobe. The patient does have a large hiatal hernia. Bony structures are unremarkable. IMPRESSION: 1. Large hiatal hernia. 2. No acute feature in the chest is identified. CT abdomen and pelvis: No focal liver or splenic laceration is seen. There is some generalized low density in the liver suggestive of hepatic steatosis. Area of hyperdensity in the dome of the liver appear similar to prior CT and may represent an area of focal sparing. The gallbladder is surgically absent. Pancreas is unremarkable. No adrenal hematoma is seen. No renal injury is identified. There are renal circumscribed low density suggestive of cysts. Aorta is non-aneurysmal. No free fluid or hemoperitoneum is identified. Bowel loops are unremarkable. There is a fracture of the right transverse process of L3 however this may be old. The bladder is unremarkable. Impression: 1. No evidence of abdominal or pelvic visceral injury. 2. Probable old right L3 transverse process fracture. The study is otherwise unremarkable. Dictated by: Dictated on workstation # [id number]
[2018-08-12 17:36] VITALS: BP 117/72
== END 2018-08-12 17:36 ==
LOC: EDUNIT# 11:07 → ER 11:08
DX: E87.6 Hypokalemia (principal); E87.1 Hypo-osmolality and hyponatremia; D72.829 Elevated white blood cell count, unspecified; J44.9 Chronic obstructive pulmonary disease, unspecified; E78.00 Pure hypercholesterolemia, unspecified; F41.9 Anxiety disorder, unspecified; I10 Essential (primary) hypertension; F03.90 Unspecified dementia, unspecified severity, without behavioral disturbance, psychotic disturbance, mood disturbance, and anxiety; Z86.010 Personal history of colon polyps; Z87.19 Personal history of other diseases of the digestive system; Z87.448 Personal history of other diseases of urinary system; Z86.711 Personal history of pulmonary embolism; Z88.0 Allergy status to penicillin; Z88.4 Allergy status to anesthetic agent; Z88.5 Allergy status to narcotic agent; Z88.1 Allergy status to other antibiotic agents; Z88.8 Allergy status to other drugs, medicaments and biological substances; Z79.51 Long term (current) use of inhaled steroids; Z79.01 Long term (current) use of anticoagulants; Z90.49 Acquired absence of other specified parts of digestive tract; Z90.710 Acquired absence of both cervix and uterus; Z95.0 Presence of cardiac pacemaker; Z98.890 Other specified postprocedural states; W19.XXXA Unspecified fall, initial encounter
CPT/HCPCS: 36415; 70450; 71260; 72125; 74177; 80053; 85007; 85027; 93005

== ENCOUNTER 2018-08-30 10:38 | Emergency (ER) | payer MEDICARE, MEDICAID ==
[~2018-08-30] VITALS: Ht 162.6 cm; Wt 95.5 kg
[~2018-08-30 10:38] MED LIST changes: +POTA-51 PO
--- NOTE | 2018-08-30 10:52 | ED Chest Pain ---
General Chief Complaint: Chest Pain Stated Complaint: CP Source: patient, EMS, [facility] records Exam Limitations: other (poor historian) History of Present Illness Date Seen by Provider: Aug 30, 2018 Time Seen by Provider: 10:30 Initial Comments The patient presents to ER by EMS from via [facility] with chief complaint of chest pain that started at 10:00 approximately 30 minutes prior to arrival. Chest pains in her left chest is reproducible by direct palpation. She has some mild shortness of breath and wheezing. She has a history of asthma. She has not been having a cough fevers or chills. long-term reported a blood pressure of 80/40 but EMS reported 116/80. The patient is not a smoker. She is on Xarelto with a history of blood clots. She has no swelling or pain in her lower extremities. Her pain extends into her abdomen all 4 quadrants and towards her back. She has an history of COPD secondary to alpha-1 antitrypsin deficiency and wears oxygen at 3 L per [facility]. She has a history of chronic leukocytosis. She has a dual-chamber pacemaker. She has a history of stents. 2018 CT angiogram showed a normal-appearing aorta. The patient further reveals that she is been scheduled for a colonoscopy and to workup her anemia and has been discontinued the last week or so off her blood thinner. Allergies and Home Medications Allergies Coded Allergies: Penicillins (Verified Allergy, Mild, 08/13/15) ketorolac (Verified Allergy, Mild, 08/13/15) morphine (Verified Allergy, Mild, 08/13/15) tetracycline (Verified Allergy, Mild, 08/13/15) paroxetine (Unverified Allergy, Unknown, 02/24/16) Home Medications Acetaminophen 500 Mg Tablet, 1,000 MG PO DAILY, (Reported) TAKES 2 (500 MG) TABLETS Acetaminophen 500 Mg Tablet, 1,000 MG PO BID PRN for PAIN-MILD, (Reported) Amlodipine Besylate 5 Mg Tablet, 5 MG PO HS, (Reported) Budesonide 3 Mg Capdr...er, 9 MG PO DAILY, (Reported) TAKES 3 (3MG) CAPSULES Calcium Carbonate/Vitamin D3 1 Each Tablet, 1 TAB PO DAILY, (Reported) Cholestyramine (with Sugar) 4 Gm Powd.pack, 4 GM PO DAILY PRN for LOOSE STOOLS, (Reported) Citalopram Hydrobromide 10 Mg Tablet, 30 MG PO HS, (Reported) TAKES 3 (10 MG) TABLETS Diphenhydramine HCl 25 Mg Capsule, 25 MG PO BID PRN for ITCHING, (Reported) Estradiol 42.5 Gm Cream.appl, VG HS, (Reported) APPLY PEA SIZED AMOUNT TO OUTER VAGINAL AREA AT BEDTIME Estradiol 10 Mcg Tablet, 10 MCG VG TuFr, (Reported) Fexofenadine HCl 180 Mg Tablet, 180 MG PO DAILY, (Reported) Fluticasone Propionate 16 Gm [place].susp, 1 SPRAY NS DAILY, (Reported) Folic Acid 1 Mg Tablet, 1 MG PO DAILY, (Reported) Hydrochlorothiazide 25 Mg Tablet, 25 MG PO DAILY, (Reported) Ibandronate Sodium 150 Mg Tablet, 150 MG PO EVERY 3 MONTHS, (Reported) DUE NEXT 05-29-18 Lisinopril 20 Mg Tablet, 20 MG PO BID, (Reported) Loperamide HCl 2 Mg Capsule, 2 MG PO Q8H PRN for LOOSE STOOLS, (Reported) Lorazepam 0.5 Mg Tablet, 0.5 MG PO BID, (Reported) Magnesium Oxide 400 Mg Tablet, 400 MG PO BID Prescribed by: MARTA BLAIR on 04/30/182255 Mometasone Furoate 220 Mcg Aer.pow.ba, 1 PUFF IH HS, (Reported) Montelukast Sodium 10 Mg Tablet, 10 MG PO HS, (Reported) Multivitamin 1 Each Tablet, 1 TAB PO DAILY, (Reported) Omeprazole 20 Mg Capsule.dr, 20 MG PO DAILY, (Reported) Polyethylene Glycol 3350 17 Gm Powd.pack, 8.5 GM PO DAILY PRN for CONSTIPATION- 2ND LINE, (Reported) Potassium Chloride 20 Meq Tablet.er, 20 MEQ PO BID Prescribed by: BERNICE CLINE on 08/12/18 1640 Pravastatin Sodium 40 Mg Tablet, 40 MG PO HS, (Reported) Quetiapine Fumarate 100 Mg Tablet, 100 MG PO HS, (Reported) Rivaroxaban 15 Mg Tablet, 15 MG PO BID@07,17 BIN [id number] N [id number] Prescribed by: TRACEE FLETCHER on 04/28/18 0910 Rivaroxaban 20 Mg Tablet, 20 MG PO DAILY@1700 BIN [id number] N [id number] Prescribed by: TRACEE FLETCHER on 04/28/18 0910 Rivastigmine Tartrate 3 Mg Capsule, 3 MG PO BID, (Reported) Tramadol HCl 50 Mg Tablet, 50 MG PO TID PRN for BACK PAIN, (Reported) Triamcinolone Acetonide 80 Gm Oint...g., TP HS, (Reported) APPLIES TO LABIA MAJORA / MAY MIX WITH ESTRACE CREAM Patient Home Medication List Home Medication List Reviewed: Yes Review of Systems Review of Systems Constitutional: No chills, No fever; malaise EENTM: No Blurred Vision Respiratory: Denies Cough; Shortness of Air, Wheezing Cardiovascular: See HPI, Chest Pain; Denies Edema, Denies Lightheadedness Gastrointestinal: Denies Abdomen Distended; Abdominal Pain; Denies Constipated , Denies Diarrhea, Denies Nausea Genitourinary: Denies Burning, Denies Discharge Musculoskeletal: No back pain, No joint pain Skin: No pruritus, No rash Psychiatric/Neurological: Denies Headache, Denies Numbness, Denies Paresthesia Past Wccpaiv-[id number]-[id number] Hx Patient Social History Alcohol Use: Occasionally Uses Alcohol Beverage of Choice: Wine Recreational Drug Use: Yes Smoking Status: Never a Smoker 2nd Hand Smoke Exposure: No Recent Hopitalizations: No Immunizations Up To Date Tetanus Booster (TDap): Unknown Date of Pneumonia Vaccine: Feb 10, 2017 Date of Influenza Vaccine: Apr 06, 2018 Seasonal Allergies Seasonal Allergies: No Past Medical History Surgeries: Yes Abdominal, Appendectomy, Eye Surgery, Gallbladder, 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, Joint Replacement, Orthopedic, Pacemaker Respiratory: Yes (ALPHA 1 ANTITRIPSIN DEFICIENCY; BILATERAL P.E.'S 04/2018--ON XARELTO) Asthma, Pulmonary Embolism, COPD Currently Using CPAP: No Currently Using BIPAP: No Cardiac: Yes (PACEMAKER;"VASOVAGAL NERVE PROBLEMS" ) High Cholesterol, Hypertension Neurological: Yes Dementia 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 Disorders: No Female 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 Disorders: Denies, Endometriosis 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 History: 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, Menopausal Sexually Transmitted Disease: No HIV/AIDS: No Genitourinary: Yes (INCONTINENCE) Gastrointestinal: Yes (BLEEDING ULCER X 3; PERFORATED ULCER 2006; 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) Gastrointestinal Bleed, Chronic Diarrhea, Polyps, Ulcer, Irritable Bowel Musculoskeletal: Yes Degenerate Disk Disease, Arthritis, Chronic Back Pain, Fractures Endocrine: No HEENT: Yes Cataract Loss of Vision: Denies Hearing Impairment: Hard of Hearing Cancer: No Psychosocial: Yes Anxiety Integumentary: No Blood Disorders: Yes (BILATERAL P.E.'S 04/2018) Family Medical History Blood clots (sister had a blood clot in the brain which caused her  in 2010) Physical Exam Vital Signs Vital Signs - First Documented 08/30/18 10:41 Temp 97.6 Pulse 70 Resp 20 B/P (MAP) 80/41 (54) Pulse Ox 94 O2 Delivery Nasal Cannula O2 Flow Rate 2.00 Capillary Refill : Less Than 3 Seconds Height, Weight, BMI Height: 5'4.00" Weight: 210lbs. 9.0oz. 95.814503fk; 25.1 BMI Method:Stated General Appearance: No Apparent Distress, Chronically ill HEENT: PERRL/EOMI, Pharynx Normal, Moist Mucous Membranes Neck: Full Range of Motion, Normal Inspection, Supple Respiratory: No Chest Non Tender, No No Respiratory Distress; Accessory Muscle Use (mild), Decreased Breath Sounds, Wheezing (scant bilateral), Other (pursed lip breathing and prefers to sit up) Cardiovascular: Regular Rate, Rhythm, No Edema, Normal Peripheral Pulses Gastrointestinal: Normal Bowel Sounds, Non Tender, Soft Extremity: Normal Capillary Refill, Normal Inspection, No Pedal Edema Neurologic/Psychiatric: Alert, Oriented x3, No Motor/Sensory Deficits Skin: Normal Color, Warm/Dry Focused Exam Lactate Level 08/30/18 11:05: Lactic Acid Level 2.11*H 08/30/18 14:20: Lactic Acid Level 1.41 Lactic Acid Level Laboratory Tests Test 08/30/18 11:05 08/30/18 14:20 Lactic Acid Level 2.11 MMOL/L (0.50-2.00) *H 1.41 MMOL/L (0.50-2.00) Progress/Results/Core Measures Results/Orders Lab Results Laboratory Tests Test 08/30/18 11:05 08/30/18 11:33 08/30/18 14:20 Range/Units White Blood Count 13.3 H 4.3-11.0 10^3/uL Red Blood Count 4.14 L 4.35-5.85 10^6/uL Hemoglobin 11.4 L 11.5-16.0 G/DL Hematocrit 35 35-52 % Mean Corpuscular Volume 84 80-99 FL Mean Corpuscular Hemoglobin 28 25-34 PG Mean Corpuscular Hemoglobin Concent 33 32-36 G/DL Red Cell Distribution Width 15.3 H 10.0-14.5 % Platelet Count 423 H 130-400 10^3/uL Mean Platelet Volume 9.3 7.4-10.4 FL Neutrophils (%) (Auto) 61 42-75 % Lymphocytes (%) (Auto) 26 12-44 % Monocytes (%) (Auto) 9 0-12 % Eosinophils (%) (Auto) 5 0-10 % Basophils (%) (Auto) 0 0-10 % Neutrophils # (Auto) 8.0 H 1.8-7.8 X 10^3 Lymphocytes # (Auto) 3.4 1.0-4.0 X 10^3 Monocytes # (Auto) 1.1 H 0.0-1.0 X 10^3 Eosinophils # (Auto) 0.7 H 0.0-0.3 10^3/uL Basophils # (Auto) 0.1 0.0-0.1 10^3/uL Prothrombin Time 13.8 12.2-14.7 SEC INR Comment 1.0 0.8-1.4 Activated Partial Thromboplast Time 26 24-35 SEC Sodium Level 129 L 135-145 MMOL/L Potassium Level 4.2 3.6-5.0 MMOL/L Chloride Level 96 L 98-107 MMOL/L Carbon Dioxide Level 23 21-32 MMOL/L Anion Gap 10 5-14 MMOL/L Blood Urea Nitrogen 25 H 7-18 MG/DL Creatinine 1.29 0.60-1.30 MG/DL Estimat Glomerular Filtration Rate 40 BUN/Creatinine Ratio 19 Glucose Level 117 H 70-105 MG/DL Lactic Acid Level 2.11 *H 1.41 0.50-2.00 MMOL/L Calcium Level 9.3 8.5-10.1 MG/DL Corrected Calcium 9.5 8.5-10.1 MG/DL Magnesium Level 1.7 L 1.8-2.4 MG/DL Total Bilirubin 0.4 0.1-1.0 MG/DL Aspartate Amino Transf (AST/SGOT) 14 5-34 U/L Alanine Aminotransferase (ALT/SGPT) 9 0-55 U/L Alkaline Phosphatase 63 40-136 U/L Myoglobin 61.3 10.0-92.0 NG/ML Troponin I < 0.028 < 0.028 <0.028 NG/ML B-Type Natriuretic Peptide 31.6 <100.0 PG/ML Total Protein 6.1 L 6.4-8.2 GM/DL Albumin 3.7 3.2-4.5 GM/DL Lipase 26 8-78 U/L Urine Color YELLOW Urine Clarity CLEAR Urine pH 5 5-9 Urine Specific [place] 1.020 1.016-1.022 Urine Protein 1+ H NEGATIVE Urine Glucose (UA) NEGATIVE NEGATIVE Urine Ketones NEGATIVE NEGATIVE Urine Nitrite NEGATIVE NEGATIVE Urine Bilirubin 1+ H NEGATIVE Urine Urobilinogen NORMAL NORMAL MG/DL Urine Leukocyte Esterase NEGATIVE NEGATIVE Urine RBC (Auto) NEGATIVE NEGATIVE Urine RBC NONE /HPF Urine WBC 0-2 /HPF Urine Squamous Epithelial Cells 0-2 /HPF Urine Crystals NONE /LPF Urine Bacteria TRACE /HPF Urine Casts PRESENT /LPF Urine Hyaline Casts 5-10 H /LPF Urine Mucus NEGATIVE /LPF Urine Culture Indicated NO My Orders Orders - GOLDY,MELANIA J Ekg Tracing (08/30/18 10:40) Cbc With Automated Diff (08/30/18 10:47) Magnesium (08/30/18 10:47) Chest 1 View, Ap/Pa Only (08/30/18 10:47) Cardiac Profile 1 (08/30/18 10:47) Comprehensive Metabolic Panel (08/30/18 10:47) Myoglobin Serum (08/30/18 10:47) Protime With Inr (08/30/18 10:47) Partial Thromboplastin Time (08/30/18 10:47) O2 (08/30/18 10:47) Monitor-Rhythm Ecg Trace Only (08/30/18 10:47) Lipid Panel (08/31/18 06:00) Saline Lock/Iv-Start (08/30/18 10:47) Lipase (08/30/18 10:47) BNP (08/30/18 10:47) Albuterol/Ipra Inhalation Soln (Duoneb I (08/30/18 11:00) Svn Small Volume Nebulizer (08/30/18 10:47) Continuous Ekg Monitoring (08/30/18 10:49) Ua Culture If Indicated (08/30/18 10:49) Ct Angio Chest W (08/30/18 11:04) Iohexol Injection (Omnipaque 350 Mg/Ml 1 (08/30/18 11:15) Received Contrast (Hold Metformin- Contr (08/30/18 11:15) Saline Lock/Iv-Start (08/30/18 11:05) Ns Iv 1000 Ml (Sodium Chloride 0.9%) (08/30/18 11:05) Arterial Blood Gas (08/30/18 11:05) Blood Culture (08/30/18 11:05) Lactic Acid Analyzer (08/30/18 11:05) Ns Iv 1000 Ml (Sodium Chloride 0.9%) (08/30/18 11:10) Magnesium 1 Gm/100 Ml Ivpb (Magnesium Henry (08/30/18 11:45) Troponin I (08/30/18 14:00) Metoprolol Succinate (Xl) Tab (Toprol Xl (08/30/18 13:00) Fentanyl Injection (Sublimaze Injection (08/30/18 13:15) Cho 60g/M 3snack (16-2000 Salvatore) (08/30/18 Lunch) Medications Given in ED Current Medications Medications Dose Ordered Sig/Lee Route Start Time Stop Time Status Last Admin Dose Admin Albuterol/ Ipratropium 3 ml ONCE ONCE INH 08/30/18 11:00 08/30/18 11:01 DC 08/30/18 11:02 3 ML Fentanyl Citrate 50 mcg ONCE ONCE IVP 08/30/18 13:15 08/30/18 13:16 DC 08/30/18 14:18 50 MCG Iohexol 150 ml ONCE ONCE IV 08/30/18 11:15 08/30/18 11:26 DC 08/30/18 12:33 100 ML Magnesium Sulfate/ Dextrose 100 ml @ 100 mls/hr ONCE ONCE IV 08/30/18 11:45 08/30/18 12:44 DC 08/30/18 13:06 100 MLS/HR Metoprolol Succinate 25 mg ONCE ONCE PO 08/30/18 13:00 08/30/18 13:01 DC 08/30/18 14:18 25 MG Vital Signs/I&O 08/30/18 08/30/18 08/30/18 10:41 10:41 11:02 Temp 97.6 Pulse 70 Resp 20 B/P (MAP) 80/41 (54) Pulse Ox 94 90 95 O2 Delivery Nasal Cannula Room Air Nasal Cannula O2 Flow Rate 2.00 2.00 Progress Progress Note : Time: 11:00 Progress Note Echocardiogram April [address] Logan: Systolic function normal EF of 55-65% with normal wall thickness and cavity size. Grade 1 diastolic dysfunction. Aortic root is not dilated. The patient has chronic leukocytosis of unknown origin as well as chronic low blood pressure. Her oxygen use is at baseline with a saturation 94-98% on 2 L by nasal cannula. She does have some pursed lip breathing and minor increased worker breathing which improved after a DuoNeb. Her wheezing is no longer heard but she does have diminished breath sounds bilaterally. We'll obtain a chest x- ray and a CT angiogram of the chest since she recently discontinued her Xarelto and has a history of pulmonary embolism. 1127: While she was here she had a less than 5 second run of V. tach. Initial EKG was not very revealing of any acute changes. Patient is not expressing any pain. Her blood pressure on arrival was 80/40 so we initiated 2 L of fluid which based on an ideal body weight of 150 pounds would put her at 30 mL/kg. This is including the initial 1 L started by EMS en route. The patient was given a nitroglycerin with an initial blood pressure 116 and [facility] of blood pressure being low 80/40. EMS did not have an opportunity to repeat a blood pressure en route after the nitroglycerin. The patient does not appear to be in any distress and does not have any tachycardia. She says the pain in her chest is mild and when asked to rate it rates it at a 9 out of 10. We will reassess this after her DuoNeb treatment. Avoid any opiates as her blood pressures been on the low side however it has improved significantly to 103 systolic after initiation of IV fluids. We discussed goals of care as well as CODE STATUS and the patient would be full code at this time based on her wishes for us to do everything. We discussed doing a central line as we did not have good IV access initially but we were able to obtain a 20-gauge in her right forearm which would be sufficient for a CT angiogram. Looking through the history the patient chronically has low blood pressure even as low as 80/40 on multiple visits. She also has a history of chronic hyponatremia. 1240: Patient chronic hyponatremia is mild. Blood pressures improved significantly after fluid bolus with a pressure of 101/83. Heart rate is never been tachycardic. Oxygen saturation is 99% on 2 L by nasal cannula. Nitroglycerin did not help her pain and her pain is reproducible to direct palpation or chest. ED ACS 10 points. Low risk by the EDACS Score. If the patient also has: (1) EKG without new ischemic changes and (2) negative initial and 2-hour troponins, then this patient is safe for discharge to early outpatient follow-up investigation (or proceed to earlier inpatient testing). If EKG with ischemic changes or positive troponin, they are not low risk and require normal risk stratification. 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 Diagnostic Imaging Diagonstic Imaging: Xray Plain Films/CT/US/NM/MRI: chest (1v) Comments Stable chest x-ray with no acute cardiopulmonary process noted. Pacemaker noted. [facility] [place] NAME: AILEEN [email or web address] REC#: [id number] PT STATUS: REG ER : 1940 PHYSICIAN: MELANIA WINSLOW MD ADMIT DATE: 08/30/18/ER Draft Date of Exam:08/30/18 CHEST 1 VIEW, AP/PA ONLY Indication: Chest pain. Time of exam: 11:38 AM Comparison is made with prior chest from 08/11/2018. Cardiac pacemaker remains in place. Lungs are clear. No infiltrate or failure is detected. No effusion or pneumothorax is identified. Heart size is stable. Impression: No acute cardiopulmonary process is detected. Dictated on workstation # [id number] Dict: 08/30/18 1200 Trans: 08/30/18 1202 [facility] [id number] Interpreted by: JERMAINE CAMPOS MD Electronically signed by: Reviewed: Reviewed by Me Diagonstic Imaging: CT (a) Plain Films/CT/US/NM/MRI: chest Comments [facility] [place], [place] NAME: AILEEN [email or web address] REC#: [id number] PT STATUS: REG ER : 1940 PHYSICIAN: MELANIA WINSLOW MD ADMIT DATE: 08/30/18/ER Draft Date of Exam:08/30/18 CT ANGIO CHEST W PROCEDURE: CT angiography of the chest with contrast. TECHNIQUE: Multiple contiguous axial images were obtained through the chest after uneventful bolus administration of intravenous contrast. 2D reconstructed CTA MIP acquisitions were also performed. Auto Exposure Controls were utilized during the CT exam to meet ALARA standards for radiation dose reduction. INDICATION: Shortness of air and anterior chest pain. Correlation is made with prior CT chest from 08/12/2018. The left chest wall cardiac pacemaker remains in place. Evaluation of the pulmonary arterial system is without evidence of thromboembolism. No filling defects are seen within central, lobar or segmental branches. The thoracic aorta is normal caliber. No dissection is identified. No pericardial or pleural fluid is seen. There is a large hiatal hernia noted. The lungs are clear apart from minimal scarring or atelectasis in the right lower lobe. No infiltrate, nodule or mass is detected. Upper abdomen is unremarkable. IMPRESSION: 1. No evidence of pulmonary embolism or thoracic aortic dissection. 2. No acute abnormality is detected. 3. Large hiatal hernia. Dictated on workstation # [id number] Dict: 08/30/18 1243 Trans: 08/30/18 1250 [facility] [id number] Interpreted by: JERMAINE CAMPOS MD Electronically signed by: Reviewed: Reviewed by Me Consults : Consulting Physician: Kody LOGAN MD Consults Notes Discussed the case lab imaging findings EKG previous echocardiogram and presentation and nonsustained ventricular tachycardia. Cardiology recommends at least we do a 3 hour rule out and if she doesn't have any more nonsustained V. tach then we can discontinue her amlodipine and put her on 25 mg metoprolol succinate and follow-up in the clinic in the next couple days. He agrees that dehydration secondary to immobility and the [facility] as well as her meds probably contributes to her low blood pressure. We discussed the chronicity of the blood pressure, hyponatremia, leukocytosis and that we did not find any infectious source to explain her elevated lactate. Departure Impression Primary Impression: Chest wall pain Additional Impressions: Dehydration NSVT (nonsustained ventricular tachycardia) Chronic hypotension Chronic hyponatremia Hypomagnesemia Disposition: 01 HOME, SELF-CARE Condition: Improved Departure-Patient Inst. Decision time for Depature: 14:51 Referrals: Kody LOGAN MD, JOHN D MD (PCP/Family) Primary Care Physician Patient Instructions: Ventricular Tachycardia (DC), Chest Pain (DC) Add. Discharge Instructions: Stop taking the hydrochlorothiazide and the amlodipine until you see your cannery tender engineer. Start taking the metoprolol succinate 25 mg daily. Follow-up with the cannery tender engineer in the next couple days. Call for an appointment. Avoid caffeine or other stimulants. Drink plenty of fluids. All discharge instructions reviewed with patient and/or family. Voiced understanding. Scripts Metoprolol Succinate (Metoprolol Succinate) 25 Mg Tab.er.24h 25 MG PO DAILY for 14 Days, #14 TAB 0 Refills Prov: MELANIA WINSLOW 08/30/18 Copy Copies To 1: BRAD HDEZ MD, TITUS J Aug 30, 2018 10:52
[2018-08-30] MEDS ORDERED: RT-ALBUTEROL/IPRATROPIUM 3 ML (DUONEB) VIAL INH ONE (11:00)
[2018-08-30] MEDS ORDERED: NS IV 1000 ML 2,000 ML ONE (11:10)
[2018-08-30] MEDS ORDERED: HOLD METFORMIN - RECEIVED CONTRAST 20 ML VIAL IV SCH (11:15)
[2018-08-30] MEDS ORDERED: IOHEXOL 350 MG/ML 150 ML (OMNIPAQUE 350) VIAL IV ONE (11:15)
[2018-08-30 11:17] LABS: BASOPHILS # (AUTO) 0.1 10^3/uL (0.0-0.1); BASOPHILS % (AUTO) 0 % (0-10); EOSINOPHILS # (AUTO) 0.7 10^3/uL (0.0-0.3); EOSINOPHILS % (AUTO) 5 % (0-10); HEMATOCRIT 35 % (35-52); HEMOGLOBIN 11.4 G/DL (11.5-16.0); LYMPHOCYTES # (AUTO) 3.4 X 10^3 (1.0-4.0); LYMPHOCYTES % (AUTO) 26 % (12-44); MEAN CORPUSCULAR HEMOGLOBIN 28 PG (25-34); MEAN CORPUSCULAR HGB CONC 33 G/DL (32-36); MEAN CORPUSCULAR VOLUME 84 FL (80-99); MEAN PLATELET VOLUME 9.3 FL (7.4-10.4); MONOCYTES # (AUTO) 1.1 X 10^3 (0.0-1.0); MONOCYTES % (AUTO) 9 % (0-12); NEUTROPHILS % (AUTO) 61 % (42-75); PLATELET COUNT 423 10^3/uL (130-400); RED CELL DISTRIBUTION WIDTH 15.3 % (10.0-14.5); WHITE BLOOD COUNT 13.3 10^3/uL (4.3-11.0)
[2018-08-30] MEDS: NS IV 1000 ML 1,000 ML IV SCH ×2 (11:18→14:29)
[2018-08-30 11:30] LABS: PROTHROMBIN TIME PATIENT 13.8 SEC (12.2-14.7)
[2018-08-30 11:37] LABS: ALANINE AMINOTRANSFERASE 9 U/L (0-55); ALBUMIN 3.7 GM/DL (3.2-4.5); ALKALINE PHOSPHATASE 63 U/L (40-136); BILIRUBIN,TOTAL 0.4 MG/DL (0.1-1.0); BUN/CREATININE RATIO 19; CALCIUM 9.3 MG/DL (8.5-10.1); CARBON DIOXIDE 23 MMOL/L (21-32); CHLORIDE 96 MMOL/L (98-107); CREATININE SERUM 1.29 MG/DL (0.60-1.30); GFR ESTIMATED 40; GLUCOSE 117 MG/DL (70-105); LIPASE 26 U/L (8-78); MAGNESIUM 1.7 MG/DL (1.8-2.4); POTASSIUM 4.2 MMOL/L (3.6-5.0); SODIUM 129 MMOL/L (135-145); TOTAL PROTEIN 6.1 GM/DL (6.4-8.2)
[2018-08-30 11:40] LABS: CLARITY,URINE CLEAR; COLOR,URINE YELLOW; GLUCOSE, URINE (UA) NEGATIVE (NEGATIVE); KETONES,URINE NEGATIVE (NEGATIVE); LEUKOCYTE ESTERASE ,URINE NEGATIVE (NEGATIVE); NITRITE,URINE NEGATIVE (NEGATIVE); PH,URINE 5 (5-9); PROTEIN,URINE 1+ (NEGATIVE); UROBILINOGEN,URINE NORMAL (NORMAL)
[2018-08-30 11:44] LABS: MYOGLOBIN SERUM 61.3 NG/ML (10.0-92.0)
[2018-08-30] MEDS ORDERED: MAGNESIUM 1 GM/100 ML IVPB 100 ML IV ONE (11:45)
[2018-08-30 12:02] LABS: BACTERIA,URINE TRACE /HPF; WBC,URINE 0-2 /HPF
--- NOTE | 2018-08-30 12:02 | Diagnostic Imaging Report ---
Indication: Chest pain. Time of exam: 11:38 AM Comparison is made with prior chest from 08/11/2018. Cardiac pacemaker remains in place. Lungs are clear. No infiltrate or failure is detected. No effusion or pneumothorax is identified. Heart size is stable. Impression: No acute cardiopulmonary process is detected. Dictated by: Dictated on workstation # [id number]
[2018-08-30 12:03] LABS: BILIRUBIN,URINE 1+ (NEGATIVE); SQUAMOUS EPITHELIAL CELL,UR 0-2 /HPF
--- NOTE | 2018-08-30 12:51 | Diagnostic Imaging Report ---
PROCEDURE: CT angiography of the chest with contrast. TECHNIQUE: Multiple contiguous axial images were obtained through the chest after uneventful bolus administration of intravenous contrast. 2D reconstructed CTA MIP acquisitions were also performed. Auto Exposure Controls were utilized during the CT exam to meet ALARA standards for radiation dose reduction. INDICATION: Shortness of air and anterior chest pain. Correlation is made with prior CT chest from 08/12/2018. The left chest wall cardiac pacemaker remains in place. Evaluation of the pulmonary arterial system is without evidence of thromboembolism. No filling defects are seen within central, lobar or segmental branches. The thoracic aorta is normal caliber. No dissection is identified. No pericardial or pleural fluid is seen. There is a large hiatal hernia noted. The lungs are clear apart from minimal scarring or atelectasis in the right lower lobe. No infiltrate, nodule or mass is detected. Upper abdomen is unremarkable. IMPRESSION: 1. No evidence of pulmonary embolism or thoracic aortic dissection. 2. No acute abnormality is detected. 3. Large hiatal hernia. Dictated by: Dictated on workstation # [id number]
[2018-08-30] MEDS ORDERED: fentaNYL INJECTION 100 MCG/2 ML AMP IVP ONE (13:15)
[2018-08-30] MEDS ORDERED: METO-387 PO (14:56)
--- NOTE | 2018-08-30 14:57 | NUR ---
CALLED AND SPOKE TO [facility] ABOUT PTS PENDING TRANSFER BACK
[2018-08-30 15:21] VITALS: BP 104/69
== END 2018-08-30 15:21 | disposition home or self-care (01) ==
LOC: EDUNIT# 10:38 → ER 10:40
DX: R07.89 Other chest pain (principal); E86.0 Dehydration; R00.0 Tachycardia, unspecified; I95.89 Other hypotension; E87.1 Hypo-osmolality and hyponatremia; E83.42 Hypomagnesemia; J44.9 Chronic obstructive pulmonary disease, unspecified; E78.00 Pure hypercholesterolemia, unspecified; I10 Essential (primary) hypertension; F03.90 Unspecified dementia, unspecified severity, without behavioral disturbance, psychotic disturbance, mood disturbance, and anxiety; D72.829 Elevated white blood cell count, unspecified; F41.9 Anxiety disorder, unspecified; Z86.010 Personal history of colon polyps; Z99.81 Dependence on supplemental oxygen; Z95.0 Presence of cardiac pacemaker; Z95.5 Presence of coronary angioplasty implant and graft; Z88.0 Allergy status to penicillin; Z88.5 Allergy status to narcotic agent; Z88.4 Allergy status to anesthetic agent; Z88.1 Allergy status to other antibiotic agents; Z88.8 Allergy status to other drugs, medicaments and biological substances; Z79.51 Long term (current) use of inhaled steroids; Z90.49 Acquired absence of other specified parts of digestive tract; Z90.710 Acquired absence of both cervix and uterus; Z98.890 Other specified postprocedural states; Z86.711 Personal history of pulmonary embolism
CPT/HCPCS: 36415; 51702; 71045; 71275; 80053; 81000; 83605; 83690; 83735; 83874; 83880; 84484; 85025; 85610; 85730; 87040; 93005; 93041; 94640

== ENCOUNTER 2018-09-01 14:30 | Outpatient (CLI) | payer MEDICARE, MEDICAID ==
[~2018-09-01] VITALS: Ht 160 cm; Wt 93.7 kg
[~2018-09-01 14:30] MED LIST changes: +METO-387 PO
[2018-09-02] MEDS ORDERED: RIVA1.5C6 PO (11:06)
[2018-09-02] MEDS ORDERED: CHOL4PAC16 PO (11:06)
[2018-09-02] MEDS ORDERED: QUET100T PO (11:06)
[2018-09-02] MEDS ORDERED: GUAI120013 PO (11:06)
[2018-09-02] MEDS ORDERED: LIDO76.5 TP (11:06)
[2018-09-02] MEDS ORDERED: ONDA4TAB11 PO (11:06)
[2018-09-02] MEDS ORDERED: MOME13HF4 IH (11:06)
[2018-09-02] MEDS ORDERED: MULT-351 PO (11:06)
== END 2018-09-02 11:06 | disposition home or self-care (01) ==
LOC: PREOP 14:30
PROVIDERS: ATTEND Internal Medicine
DX: Z01.818 Encounter for other preprocedural examination (principal)

== ENCOUNTER 2018-09-03 07:57 | Day surgery (SDC) | payer MEDICARE, MEDICAID ==
--- NOTE | 2018-08-23 17:06 | HISTORY AND PHYSICAL ---
DATE OF SERVICE: COLONOSCOPY H AND P HISTORY OF PRESENT ILLNESS: The patient is a 78-year-old white female referred by Dr. Kent for colonoscopy, for evaluation of bright red blood per rectum and left lower quadrant abdominal pain. I had seen the patient two years ago, at which time, she underwent EGD and colonoscopy. She did have a distal ascending colonic polyp compatible with hyperplastic polyp. She has had no melena and did not have significant diverticular disease at the time of her colonoscopy. She does have history of dementia and secondary to this, she is a very poor historian. She denies night sweats, chills or fever. PAST SURGICAL HISTORY: Significant for an appendectomy, cholecystectomy and also had surgery to repair a perforated duodenal ulcer in 2005. She has had a past total abdominal hysterectomy for benign reasons and has had right shoulder surgery. PAST MEDICAL HISTORY: Significant for hyperlipidemia, hypertension and dementia. She also reportedly has history of COPD and alpha 1 antitrypsin deficiency. FAMILY HISTORY: She had one sister, who of pulmonary embolism at the age of 67. She is not aware of her parents' history and does not know if there has been any history for GI tract malignancy. She also had a personal history of pulmonary embolism and has been on Xarelto since sometime in the fall per her report. PHYSICAL EXAMINATION: GENERAL: Reveals an obese white female, did not appear to be in acute distress. VITAL SIGNS: Weight was 204 pounds, blood pressure 100/48. In addition, she denies lightheadedness when she gets up. HEENT: Examination is pertinent for some periorbital bruising with a result of the fall per her report. She denied syncope or presyncope. NECK: Revealed no JVD, adenopathy or bruits. CHEST: Clear to auscultation. CARDIOVASCULAR: Revealed a regular rate and rhythm without significant murmur, S3 or S4. ABDOMEN: Soft, supple without mass or organomegaly. She does have left lower quadrant abdominal pain to palpation without rebound or guarding. No mass or organomegaly are noted. EXTREMITIES: Reveal no cyanosis or clubbing. She does have 1+ edema bilaterally to the mid tibia. ASSESSMENT AND PLAN: The patient is set up for surveillance colonoscopy due to bright red blood per rectum and left lower quadrant abdominal pain. Blood work was done earlier at Dr. Kent's office to evaluate for anemia. From her description, it sounds like it has been lower volume bleeding. She does have an epidural injection coming up and is holding Xarelto. We will have her continue to hold Xarelto with colonoscopy the following week. Sincerely, Job ID: [id number] DocumentID: [id number] Dictated Date: 08/19/2018 15:41:56 [employer] Date: 08/19/2018 16:50:45 Dictated By: LIZZY CORDOBA MD
[~2018-09-03] VITALS: Ht 160 cm; Wt 93.7 kg
[~2018-09-03 07:57] MED LIST changes: +GUAI120013 PO; +LIDO76.5 TP; +MOME13HF4 IH; +MULT-351 PO; +ONDA4TAB11 PO
[2018-09-03] MEDS ORDERED: D5 LR IV SOLUTION 1,000 ML IV STA (08:07)
[2018-09-03] MEDS ORDERED: D5 LR IV SOLUTION 1,000 ML IV ONE (08:10)
[2018-09-03] MEDS ORDERED: fentaNYL INJECTION 100 MCG/2 ML AMP IVP ONE (08:15)
[2018-09-03] MEDS ORDERED: LIDOCAINE JELLY 2% 6 ML SYRINGE MM PRN (08:15)
[2018-09-03] MEDS ORDERED: MIDAZOLAM 2 MG/2 ML (VERSED) VIAL IVP ONE (08:15)
[2018-09-03] MEDS ORDERED: MIDAZOLAM 2 MG/2 ML (VERSED) VIAL ONE (08:51)
[2018-09-03] MEDS ORDERED: fentaNYL INJECTION 100 MCG/2 ML AMP ONE (08:52)
[2018-09-03] MEDS ORDERED: LIDOCAINE JELLY 2% 6 ML SYRINGE ONE (08:52)
--- NOTE | 2018-09-03 09:17 | Pre-Op Note & Conscious Sedat ---
Pre-Operative Progress Note H&P Reviewed The H&P was reviewed, patient examined and no changes noted. Date H&P Reviewed: Sep 03, 2018 Time H&P Reviewed: 09:00 Conscious Sedation Pre-Proced ASA Score 3 For ASA 3 and 4: Consider anesthesia and medical clearance. Also, for patients with a history of failed moderate sedation consider anesthesia. Airway Lungs Heart ASA score ASA 1: a normal healthy patient ASA 2: a patient with a mild systemic disease (mid diabetes, controlled hypertension, obesity ASA 3: a patient with a severe systemic disease that limits activity (angina , COPD, prior Myocardial infarction) ASA 4: a patient with an incapacitating disease that is a constant threat to life (CHF, renal failure) ASA 5: a moribund patient not expected to survive 24 hrs. (ruptured aneurysm) ASA 6: a declared brain- patient whose organs are being harvested. For emergent operations, add the letter E after the classification Mallampati Classification Grade 2 Sedation Plan Analgesia, Amnesia, Plan communicated to team members, Discussed options with patient/fam, Discussed risks with patient/fam The patient is an appropriate candidate to undergo the planned procedure, sedation, and anesthesia. The patient immediately re-assessed prior to indication. LIZZY CORDOBA MD Sep 03, 2018 09:17
[2018-09-03 09:40] VITALS: BP 125/57
[2018-09-03 10:10] VITALS: BP 139/53
[2018-09-03 11:48] VITALS: BP 139/53
--- NOTE | 2018-09-03 17:12 | OPERATIVE REPORT ---
DATE OF SERVICE: COLONOSCOPY SUMMARY REFERRING PHYSICIAN: Dr. Kelby Kent. INDICATION FOR THE PROCEDURE: Rectal bleeding, left lower quadrant abdominal pain. The patient was placed in left lateral decubitus position. Prior to undergoing colonoscopy, digital rectal evaluation was performed. Anal sphincter tone was normal. Perianal reflex was intact. No abnormalities, no additional inspection of the anal canal or distal rectal vault. The colonoscope was then inserted in the rectum under direct visualization advanced to the cecum. The cecum was identified by identification of the ileocecal valve and cecal strap. A careful inspection was made as the colonoscopy was withdrawn. The patient did have an irritable bowel type response to air insufflation and colonic manipulation. FINDINGS: There is no evidence for internal or external hemorrhoids. There were some small dilated telangiectatic blood vessels in the anal canal, most likely source of this patient small volume bright red blood per rectum. The rectum sigmoid colon, descending colon, transverse colon, ascending colon and cecum were unremarkable. No evidence for neoplasia or any other potential bleeding sites were identified. ASSESSMENT AND PLAN: The patient did have an irritable bowel type response to air insufflation and colonic manipulation. No significant pathology was noted today. There are some small telangiectatic blood vessels noted in the anal canal, most likely source of this patient's small volume bright red blood per rectum aggravated by need for Xarelto. The patient was reassured as well as the family. I discussed the fact that on Xarelto, especially if she is having any constipation issues. She may see small volume bright red blood per rectum and if this is the case not to worry. She was advised follow up with Dr. Kent if she is having significant ongoing bleeding. Job ID: [id number] DocumentID: [id number] Dictated Date: 09/03/2018 09:55:03 Hospital Intern Date: 09/03/2018 17:11:41 Dictated By: LIZZY CORDOBA MD [facility]
== END 2018-09-03 10:25 | disposition home or self-care (01) ==
LOC: ENDO 07:57
PROVIDERS: ATTEND Internal Medicine
DX: K62.5 Hemorrhage of anus and rectum (principal); K62.89 Other specified diseases of anus and rectum; I10 Essential (primary) hypertension; E78.5 Hyperlipidemia, unspecified; F03.90 Unspecified dementia, unspecified severity, without behavioral disturbance, psychotic disturbance, mood disturbance, and anxiety; J44.9 Chronic obstructive pulmonary disease, unspecified; E88.01 Alpha-1-antitrypsin deficiency; Z87.19 Personal history of other diseases of the digestive system; Z86.711 Personal history of pulmonary embolism; Z79.01 Long term (current) use of anticoagulants

== ENCOUNTER → 2018-09-13 | Outpatient (CLI) | payer MEDICARE, MEDICAID ==
[~2018-09-13] MED LIST changes: -RIVA15TA PO; +RIVA15TA2 PO; -RIVA20TA PO; +RIVA20TA2 PO
== END ==
LOC: CARD 14:00
PROVIDERS: ATTEND Internal Medicine Interventional Cardiology
DX: R07.9 Chest pain, unspecified (principal); R06.02 Shortness of breath; I49.5 Sick sinus syndrome; E88.01 Alpha-1-antitrypsin deficiency; I51.9 Heart disease, unspecified; Z95.0 Presence of cardiac pacemaker
CPT/HCPCS: 93306

== ENCOUNTER → 2018-09-16 | Outpatient (CLI) | payer MEDICARE, MEDICAID ==
[~2018-09-16] VITALS: Ht 160 cm; Wt 93.0 kg
[~2018-09-16] MED LIST changes: +CATHETER FLUSH 10 ML SYR IV PRN; +REGADENOSON 0.4 MG/5 ML SYR (LEXISCAN) IV ONE
[2018-09-16 08:51] VITALS: BP 199/101
[2018-09-16 09:12] VITALS: BP 206/98
[2018-09-16 09:14] VITALS: BP 190/97
--- NOTE | 2018-09-17 10:43 | Cardiology Stress Test Report ---
Stress Test Report Type of NM Stress Test: Test Type: LEXISCAN 0.4MG/5ML Date of Procedure/Referring: Date of Procedure: Sep 16, 2018 PCP Kody Logan MD Admitting Physician Romeo Kent MD Indications: Shortness of breath, chest pain Baseline Blood Pressure: Blood Pressure Systolic: 190 Blood Pressure Diastolic: 97 Baseline EKG: Baseline EKG: sinus rhythm/occasional paced rhythm Summary & Conclusion: Summary: The patient was brought to the stress lab after informed consent was taken. Stress test was performed according to the Lexiscan protocol. 0.4 mg of IV Lexiscan was given. Low-grade exercise was performed. Baseline EKG showed sinus rhythm at 63 BPM. Initial blood pressure was 206/98 mmHg. Maximum heart rate was 83 bpm and blood pressure 210/96 mmHg. Patient did not have any chest pain, arrhythmias or ST segment changes during the stress test. 10.89 mCi of Myoview were given for rest imaging and 32.1 mCi of Myoview given for stress imaging. Transient ischemic dilatation score 0.99, EF 70 percent. Normal wall motion. Normal myocardial perfusion imaging during rest and stress. Conclusion: Pharmacological stress test was negative for ischemia. Hypertensive response during the stress test. Normal LV function with no wall motion abnormalities. Normal myocardial perfusion imaging during rest and stress. Kody LOGAN MD Sep 17, 2018 10:43 am
== END ==
LOC: CARD 06:39
PROVIDERS: ATTEND Internal Medicine Interventional Cardiology
DX: R06.02 Shortness of breath (principal); I49.5 Sick sinus syndrome; R07.9 Chest pain, unspecified; I51.9 Heart disease, unspecified; E88.01 Alpha-1-antitrypsin deficiency; Z95.0 Presence of cardiac pacemaker
CPT/HCPCS: 78452; 93017

== ENCOUNTER 2018-10-05 09:40 | Emergency (ER) | payer MEDICARE, MEDICAID ==
[~2018-10-05] VITALS: Ht 160 cm; Wt 68.0 kg
[~2018-10-05 09:40] MED LIST changes: -CATHETER FLUSH 10 ML SYR IV PRN; -REGADENOSON 0.4 MG/5 ML SYR (LEXISCAN) IV ONE
[2018-10-05] MEDS ORDERED: LACTATED RINGERS 1,000 ML IV ONE (10:23)
[2018-10-05 10:30] LABS: BILIRUBIN,URINE NEGATIVE (NEGATIVE); CLARITY,URINE SLIGHTLY CLOUDY; COLOR,URINE YELLOW; GLUCOSE, URINE (UA) NEGATIVE (NEGATIVE); KETONES,URINE NEGATIVE (NEGATIVE); LEUKOCYTE ESTERASE ,URINE 1+ (NEGATIVE); NITRITE,URINE NEGATIVE (NEGATIVE); PH,URINE 5 (5-9); PROTEIN,URINE 1+ (NEGATIVE); UROBILINOGEN,URINE NORMAL (NORMAL)
[2018-10-05 10:33] LABS: BASOPHILS % (AUTO) 0 % (0-10); EOSINOPHILS # (AUTO) 0.4 10^3/uL (0.0-0.3); EOSINOPHILS % (AUTO) 4 % (0-10); HEMATOCRIT 33 % (35-52); HEMOGLOBIN 10.5 G/DL (11.5-16.0); LYMPHOCYTES # (AUTO) 2.1 X 10^3 (1.0-4.0); LYMPHOCYTES % (AUTO) 20 % (12-44); MEAN CORPUSCULAR HEMOGLOBIN 27 PG (25-34); MEAN CORPUSCULAR HGB CONC 32 G/DL (32-36); MEAN CORPUSCULAR VOLUME 85 FL (80-99); MEAN PLATELET VOLUME 9.7 FL (7.4-10.4); MONOCYTES # (AUTO) 0.9 X 10^3 (0.0-1.0); MONOCYTES % (AUTO) 8 % (0-12); NEUTROPHILS # (AUTO) 7.2 X 10^3 (1.8-7.8); NEUTROPHILS % (AUTO) 68 % (42-75); PLATELET COUNT 358 10^3/uL (130-400); RED CELL DISTRIBUTION WIDTH 15.5 % (10.0-14.5); WHITE BLOOD COUNT 10.6 10^3/uL (4.3-11.0)
[2018-10-05 10:36] LABS: INR 1.3 (0.8-1.4); PROTHROMBIN TIME PATIENT 16.4 SEC (12.2-14.7)
[2018-10-05 10:44] LABS: BACTERIA,URINE TRACE /HPF; HYALINE CASTS, URINE 25-50 /LPF; RBC,URINE 0-2 /HPF; RENAL EPITHELIAL CELLS,URINE RARE /HPF
[2018-10-05 10:45] LABS: ALANINE AMINOTRANSFERASE 11 U/L (0-55); ALBUMIN 3.6 GM/DL (3.2-4.5); ALKALINE PHOSPHATASE 53 U/L (40-136); BILIRUBIN,TOTAL 0.3 MG/DL (0.1-1.0); BUN/CREATININE RATIO 17; CALCIUM 9.2 MG/DL (8.5-10.1); CARBON DIOXIDE 21 MMOL/L (21-32); CHLORIDE 100 MMOL/L (98-107); CREATININE SERUM 1.05 MG/DL (0.60-1.30); GFR ESTIMATED 51; GLUCOSE 143 MG/DL (70-105); MAGNESIUM 2.1 MG/DL (1.8-2.4); POTASSIUM 4.6 MMOL/L (3.6-5.0); SODIUM 130 MMOL/L (135-145); TOTAL PROTEIN 6.2 GM/DL (6.4-8.2)
--- NOTE | 2018-10-05 10:55 | Diagnostic Imaging Report ---
INDICATION: Drop in blood pressure COMPARISON: 08/30/2018 TECHNIQUE: Single radiograph of the chest dated 10/05/2018. FINDINGS: Pacer device is again identified with a battery pack overlying the left chest. Right shoulder arthroplasty is partially visualized. The cardiac silhouette is enlarged, though stable. No significant pulmonary vascular congestion. The lungs are clear of focal pulmonary opacity. Hiatal hernia is again noted. No pleural effusion. No pneumothorax. No acute osseous abnormality. IMPRESSION: Similar appearing examination demonstrating chronic and postsurgical changes without acute cardiopulmonary abnormality. Dictated by: Dictated on workstation # [id number]
[2018-10-05 11:04] LABS: TSH (THYROID ANALYZER) 1.41 UIU/ML (0.35-4.94)
--- NOTE | 2018-10-05 11:10 | Diagnostic Imaging Report ---
PROCEDURE: CT head wo r/o stroke. TECHNIQUE: Multiple contiguous axial images were obtained through the brain without the use of intravenous contrast. Auto Exposure Controls were utilized during the CT exam to meet ALARA standards for radiation dose reduction. INDICATION: Hypotension. FINDINGS: There is mild degree of cerebral cortical atrophy but no eugenio hydrocephalus. There is intracranial atherosclerotic vascular calcifications of the carotids and intrathecal left vertebral segments. No focal or generalized cerebral edema is demonstrated. There is no evidence for elevated pressures. The basilar cisterns are patent. No mass or mass effect is identified. There is no hemorrhage. Orbits, sinuses and calvarium appeared nonacute. IMPRESSION: Chronic senescent changes with no hemorrhage, edema or acute appearing abnormalities. Dictated by: Dictated on workstation # [id number]
--- NOTE | 2018-10-05 11:47 | ED General ---
General Chief Complaint: Dizziness/Syncope Stated Complaint: DIZZINESS;HTN Allergies and Home Medications Allergies Coded Allergies: Penicillins (Verified Allergy, Mild, 09/01/18) ketorolac (Verified Allergy, Mild, 09/01/18) morphine (Verified Allergy, Mild, 09/01/18) tetracycline (Verified Allergy, Mild, 09/01/18) paroxetine (Unverified Allergy, Unknown, 09/01/18) Home Medications Acetaminophen 500 Mg Tablet, 1,000 MG PO DAILY, (Reported) TAKES 2 (500 MG) TABLETS Acetaminophen 500 Mg Tablet, 1,000 MG PO BID PRN for PAIN-MILD, (Reported) Calcium Carbonate/Vitamin D3 1 Each Tablet, 1 TAB PO DAILY, (Reported) Cholestyramine (with Sugar) 4 Gm Powd.pack, 4 GM PO BID PRN for DIARRHEA, ( Reported) Citalopram Hydrobromide 10 Mg Tablet, 20 MG PO HS, (Reported) TAKES 2 (10 MG) TABLETS Estradiol 10 Mcg Tablet, 10 MCG VG TuFr, (Reported) Fexofenadine HCl 180 Mg Tablet, 180 MG PO DAILY, (Reported) Fluticasone Propionate 16 Gm [place].susp, 1 SPRAY NS DAILY, (Reported) Folic Acid 1 Mg Tablet, 1 MG PO DAILY, (Reported) Guaifenesin 1,200 Mg Tab.er.12h, 1,200 MG PO BID PRN for CONGESTION, (Reported) Lidocaine HCl 76.5 Gm Cream..g., 76.5 GM TP QID PRN for BACK PAIN, (Reported) Lisinopril 20 Mg Tablet, 20 MG PO BID, (Reported) Loperamide HCl 2 Mg Capsule, 2 MG PO Q8H PRN for LOOSE STOOLS, (Reported) Lorazepam 0.5 Mg Tablet, 0.5 MG PO BID, (Reported) Metoprolol Succinate 25 Mg Tab.er.24h, 25 MG PO DAILY Prescribed by: MELANIA WINSLOW on 08/30/18 5266 Mometasone Furoate 13 Gm Hfa.aer.ad, 13 GM IH DAILY, (Reported) Montelukast Sodium 10 Mg Tablet, 10 MG PO HS, (Reported) Multivitamin 1 Each Tablet, 1 EACH PO DAILY, (Reported) Ondansetron 4 Mg Tab.rapdis, 4 MG PO Q4H PRN for NAUSEA/VOMITING, (Reported) Pravastatin Sodium 40 Mg Tablet, 40 MG PO HS, (Reported) Quetiapine Fumarate 100 Mg Tablet, 100 MG PO DAILY, (Reported) Rivaroxaban 20 Mg Tablet, 20 MG PO DAILY@1700 BIN [id number] [facility] [id number] Prescribed by: TRACEE FLETCHER on 04/28/18 0910 Rivastigmine Tartrate 1.5 Mg Capsule, 1.5 MG PO BID, (Reported) Tramadol HCl 50 Mg Tablet, 50 MG PO TID PRN for BACK PAIN, (Reported) Triamcinolone Acetonide 80 Gm Oint...g., TP HS, (Reported) APPLIES TO LABIA MAJORA / MAY MIX WITH ESTRACE CREAM Past Fqhymuy-Hdqrfq-Tihlfr Hx Patient Social History Alcohol Beverage of Choice: Wine 2nd Hand Smoke Exposure: No Recent Hopitalizations: No Immunizations Up To Date Tetanus Booster (TDap): Unknown Date of Pneumonia Vaccine: Feb 10, 2015 Date of Influenza Vaccine: Apr 06, 2018 Seasonal Allergies Seasonal Allergies: No Past Medical History Surgeries: Yes (CATARACTS, R SHOULDER/ARM) Abdominal, Appendectomy, Eye Surgery, Gallbladder, 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, Joint Replacement, Orthopedic, Pacemaker Respiratory: Yes (ALPHA 1 ANTITRIPSIN DEFICIENCY; BILATERAL P.E.'S 04/2018--ON XARELTO) Asthma, Pulmonary Embolism, COPD Currently Using CPAP: No Currently Using BIPAP: No Cardiac: Yes (PACEMAKER;"VASOVAGAL NERVE PROBLEMS" ) High Cholesterol, Hypertension Neurological: No Dementia 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 Disorders: No Female 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 Disorders: Denies, Endometriosis 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, 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 Sexually Transmitted Disease: No HIV/AIDS: No Genitourinary: Yes (INCONTINENCE) Gastrointestinal: Yes (BLEEDING ULCER X 3; PERFORATED ULCER 2006; 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 0.0oz. [id number]; 36.3 BMI Method:Stated Progress/Results/Core Measures Suspected Sepsis SIRS Temperature: Pulse: Respiratory Rate: Laboratory Tests 10/05/18 10:20: White Blood Count 10.6 Blood Pressure / Mean: Laboratory Tests 10/05/18 10:20: Creatinine 1.05, INR Comment 1.3, Platelet Count 358, Total Bilirubin 0.3 Results/Orders Lab Results Laboratory Tests Test 10/05/18 10:20 Range/Units White Blood Count 10.6 4.3-11.0 10^3/uL Red Blood Count 3.84 L 4.35-5.85 10^6/uL Hemoglobin 10.5 L 11.5-16.0 G/DL Hematocrit 33 L 35-52 % Mean Corpuscular Volume 85 80-99 FL Mean Corpuscular Hemoglobin 27 25-34 PG Mean Corpuscular Hemoglobin Concent 32 32-36 G/DL Red Cell Distribution Width 15.5 H 10.0-14.5 % Platelet Count 358 130-400 10^3/uL Mean Platelet Volume 9.7 7.4-10.4 FL Neutrophils (%) (Auto) 68 42-75 % Lymphocytes (%) (Auto) 20 12-44 % Monocytes (%) (Auto) 8 0-12 % Eosinophils (%) (Auto) 4 0-10 % Basophils (%) (Auto) 0 0-10 % Neutrophils # (Auto) 7.2 1.8-7.8 X 10^3 Lymphocytes # (Auto) 2.1 1.0-4.0 X 10^3 Monocytes # (Auto) 0.9 0.0-1.0 X 10^3 Eosinophils # (Auto) 0.4 H 0.0-0.3 10^3/uL Basophils # (Auto) 0.0 0.0-0.1 10^3/uL Prothrombin Time 16.4 H 12.2-14.7 SEC INR Comment 1.3 0.8-1.4 Activated Partial Thromboplast Time 33 24-35 SEC Urine Color YELLOW Urine Clarity SLIGHTLY CLOUDY Urine pH 5 5-9 Urine Specific [place] 1.015 L 1.016-1.022 Urine Protein 1+ H NEGATIVE Urine Glucose (UA) NEGATIVE NEGATIVE Urine Ketones NEGATIVE NEGATIVE Urine Nitrite NEGATIVE NEGATIVE Urine Bilirubin NEGATIVE NEGATIVE Urine Urobilinogen NORMAL NORMAL MG/DL Urine Leukocyte Esterase 1+ H NEGATIVE Urine RBC (Auto) 1+ H NEGATIVE Urine RBC 0-2 /HPF Urine WBC 2-5 /HPF Urine Squamous Epithelial Cells 2-5 /HPF Urine Renal Epithelial Cells RARE /HPF Urine Crystals NONE /LPF Urine Bacteria TRACE /HPF Urine Casts PRESENT /LPF Urine Hyaline Casts 25-50 H /LPF Urine Mucus MODERATE H /LPF Urine Culture Indicated NO Sodium Level 130 L 135-145 MMOL/L Potassium Level 4.6 3.6-5.0 MMOL/L Chloride Level 100 98-107 MMOL/L Carbon Dioxide Level 21 21-32 MMOL/L Anion Gap 9 5-14 MMOL/L Blood Urea Nitrogen 18 7-18 MG/DL Creatinine 1.05 0.60-1.30 MG/DL Estimat Glomerular Filtration Rate 51 BUN/Creatinine Ratio 17 Glucose Level 143 H 70-105 MG/DL Calcium Level 9.2 8.5-10.1 MG/DL Corrected Calcium 9.5 8.5-10.1 MG/DL Magnesium Level 2.1 1.8-2.4 MG/DL Total Bilirubin 0.3 0.1-1.0 MG/DL Aspartate Amino Transf (AST/SGOT) 21 5-34 U/L Alanine Aminotransferase (ALT/SGPT) 11 0-55 U/L Alkaline Phosphatase 53 40-136 U/L Troponin I < 0.028 <0.028 NG/ML B-Type Natriuretic Peptide 139.1 H <100.0 PG/ML Total Protein 6.2 L 6.4-8.2 GM/DL Albumin 3.6 3.2-4.5 GM/DL TSH [place] Testing 1.41 0.35-4.94 UIU/ML My Orders Orders - ODILIA LAKE DO Ekg Tracing (10/05/18 10:06) Ed Iv/Invasive Line Start (10/05/18 10:23) Monitor-Rhythm Ecg Trace Only (10/05/18 10:23) Straight Cath For Spec.-Adult (10/05/18 10:23) Ct Head Wo-R/O Stroke (10/05/18 10:23) Chest 1 View, Ap/Pa Only (10/05/18 10:23) Ed Iv/Invasive Line Start (10/05/18 10:23) Lactated Ringers (Lr 1000 Ml Iv Solution (10/05/18 10:23) BNP (10/05/18 10:23) Cbc With Automated Diff (10/05/18 10:23) Comprehensive Metabolic Panel (10/05/18 10:23) Magnesium (10/05/18 10:23) Protime With Inr (10/05/18 10:23) Partial Thromboplastin Time (10/05/18 10:23) Thyroid Analyzer (10/05/18 10:23) Troponin I (10/05/18 10:23) Ua Culture If Indicated (10/05/18 10:23) Medications Given in ED Current Medications Medications Dose Ordered Sig/Lee Route Start Time Stop Time Status Last Admin Dose Admin Lactated Ringer's 1,000 ml @ 0 mls/hr Q0M ONCE IV 10/05/18 10:23 10/05/18 10:25 DC 10/05/18 10:25 1,000 MLS/HR Vital Signs/I&O Capillary Refill : Departure Impression Primary Impression: Orthostatic hypotension Disposition: 03 XFER SNF Condition: Improved Departure-Patient Inst. Referrals: BRAD HDEZ MD (PCP/Family) Primary Care Physician Patient Instructions: Orthostatic Hypotension (DC) Add. Discharge Instructions: LOTS OF FLUIDS CONTINUE YOUR REGULAR MEDICATION PRESCRIBED FOLLOW UP WITH YOUR DR NEEDED All discharge instructions reviewed with patient and/or family. Voiced understanding. ODILIA LAKE DO Oct 05, 2018 11:47
--- NOTE | 2018-10-05 12:01 | NUR ---
VIA [facility] CALLED TO PT TO BE PICKED UP
[2018-10-05 12:25] VITALS: BP 151/62
--- NOTE | 2018-10-05 13:54 | NUR ---
Pt is [facility]. Diamond Assorter visit to offer supportive presence and prayer. She said, "Thank you for seeing me. It helps to be around kind and positive people." She also expressed a desire to return to adventism, health permitting.
== END 2018-10-05 12:25 ==
LOC: EDUNIT# 09:41 → ER 09:42
DX: I95.1 Orthostatic hypotension (principal); I10 Essential (primary) hypertension; J44.9 Chronic obstructive pulmonary disease, unspecified; F41.9 Anxiety disorder, unspecified; E78.00 Pure hypercholesterolemia, unspecified; K58.9 Irritable bowel syndrome, unspecified; F03.90 Unspecified dementia, unspecified severity, without behavioral disturbance, psychotic disturbance, mood disturbance, and anxiety; Z79.01 Long term (current) use of anticoagulants; Z87.19 Personal history of other diseases of the digestive system; Z86.010 Personal history of colon polyps; Z90.710 Acquired absence of both cervix and uterus; Z95.0 Presence of cardiac pacemaker; Z86.711 Personal history of pulmonary embolism; Z90.49 Acquired absence of other specified parts of digestive tract; Z98.890 Other specified postprocedural states; Z88.0 Allergy status to penicillin; Z88.4 Allergy status to anesthetic agent; Z88.5 Allergy status to narcotic agent; Z88.1 Allergy status to other antibiotic agents; Z88.8 Allergy status to other drugs, medicaments and biological substances; Z79.51 Long term (current) use of inhaled steroids
CPT/HCPCS: 36415; 51701; 70450; 71045; 80053; 81000; 83735; 83880; 84443; 84484; 85025; 85610; 85730; 93005; 93041; 96360

== ENCOUNTER → 2018-10-14 | Outpatient (CLI) | payer MEDICARE, MEDICAID ==
--- NOTE | 2018-10-14 16:31 | Diagnostic Imaging Report ---
INDICATION: Headache and fall, persistent vomiting. Noncontrast brain CT is performed and compared to 10/05/2018. FINDINGS: There are diffuse atrophic changes. There are mild low-density changes in the deep white matter compatible with chronic ischemic change. There is no acute hemorrhage or mass effect. There is no subdural or epidural collection. Ventricles are normal in size and position. There is no focal parenchymal abnormality in the brain, and no acute change compared with 10/05/2018. Calvarial windows appear normal. IMPRESSION: Mild chronic changes which are similar to 10/05/2018. No acute intracranial abnormality. Dictated by: Dictated on workstation # [id number]
== END ==
LOC: RAD 15:42
PROVIDERS: ATTEND Physician Assistant
DX: R51 Headache (principal); R11.10 Vomiting, unspecified; W19.XXXA Unspecified fall, initial encounter
CPT/HCPCS: 70450

== ENCOUNTER 2018-11-12 10:05 | Outpatient (RCR) | payer MEDICARE, MEDICAID ==
[~2018-11-12 10:05] MED LIST changes: -OMEP20CA12 PO; +OMEP20CA13 PO
[2018-11-12 10:23] LABS: BASOPHILS % (AUTO) 0 % (0-10); EOSINOPHILS # (AUTO) 0.5 10^3/uL (0.0-0.3); EOSINOPHILS % (AUTO) 5 % (0-10); HEMATOCRIT 31 % (35-52); HEMOGLOBIN 9.8 G/DL (11.5-16.0); LYMPHOCYTES # (AUTO) 2.6 X 10^3 (1.0-4.0); LYMPHOCYTES % (AUTO) 28 % (12-44); MEAN CORPUSCULAR HEMOGLOBIN 26 PG (25-34); MEAN CORPUSCULAR HGB CONC 31 G/DL (32-36); MEAN CORPUSCULAR VOLUME 84 FL (80-99); MEAN PLATELET VOLUME 9.6 FL (7.4-10.4); MONOCYTES # (AUTO) 0.7 X 10^3 (0.0-1.0); MONOCYTES % (AUTO) 8 % (0-12); NEUTROPHILS # (AUTO) 5.4 X 10^3 (1.8-7.8); NEUTROPHILS % (AUTO) 59 % (42-75); PLATELET COUNT 401 10^3/uL (130-400); RED CELL DISTRIBUTION WIDTH 14.3 % (10.0-14.5); WHITE BLOOD COUNT 9.3 10^3/uL (4.3-11.0)
[2018-11-12 10:53] LABS: ALBUMIN 3.9 GM/DL (3.2-4.5); BILIRUBIN,TOTAL 0.4 MG/DL (0.1-1.0); CALCIUM 9.6 MG/DL (8.5-10.1); CREATININE SERUM 1.06 MG/DL (0.60-1.30); POTASSIUM 4.4 MMOL/L (3.6-5.0); TOTAL PROTEIN 6.7 GM/DL (6.4-8.2)
== END 2019-02-10 | disposition home or self-care (01) ==
LOC: ONC 10:05
PROVIDERS: ATTEND Internal Medicine Hematology & Oncology
DX: D72.829 Elevated white blood cell count, unspecified (principal); D64.9 Anemia, unspecified; D47.3 Essential (hemorrhagic) thrombocythemia; E88.01 Alpha-1-antitrypsin deficiency; J44.9 Chronic obstructive pulmonary disease, unspecified; I10 Essential (primary) hypertension; R06.02 Shortness of breath; R07.9 Chest pain, unspecified; M17.0 Bilateral primary osteoarthritis of knee; F41.9 Anxiety disorder, unspecified; J45.909 Unspecified asthma, uncomplicated; R19.7 Diarrhea, unspecified; Z79.899 Other long term (current) drug therapy; Z95.0 Presence of cardiac pacemaker
CPT/HCPCS: 36415; 80053; 82728; 83540; 85025; 99213

== ENCOUNTER 2019-03-04 16:43 | Emergency (ER) | payer MEDICARE, MEDICAID ==
[~2019-03-04] VITALS: Ht 165 cm; Wt 84.0 kg
--- NOTE | 2019-03-04 16:56 | ED General ---
General Stated Complaint: L SIDED ABD PAIN Source of Information: Patient Exam Limitations: No Limitations History of Present Illness Date Seen by Provider: Mar 04, 2019 Time Seen by Provider: 16:54 Initial Comments Dementia patient presents to ER per EMS from home with reports of left-sided abdominal pain intermittent for one week. Daughter suspected her to be constipated so she went and bought stool softeners today but due to the intermittent severe pain she was brought to the emergency room for evaluation. No fevers. No history of this. She does have an old midline abdominal incision but patient herself states this is from "an exploratory surgery", cannot otherwise contribute to surgical history Timing/Duration: Intermittent Severity: Moderate Allergies and Home Medications Allergies Coded Allergies: Penicillins (Verified Allergy, Mild, 09/01/18) ketorolac (Verified Allergy, Mild, 09/01/18) morphine (Verified Allergy, Mild, 09/01/18) tetracycline (Verified Allergy, Mild, 09/01/18) paroxetine (Unverified Allergy, Unknown, 09/01/18) Home Medications Acetaminophen 500 Mg Tablet, 1,000 MG PO DAILY, (Reported) TAKES 2 (500 MG) TABLETS Acetaminophen 500 Mg Tablet, 1,000 MG PO BID PRN for PAIN-MILD, (Reported) Calcium Carbonate/Vitamin D3 1 Each Tablet, 1 TAB PO DAILY, (Reported) Cholestyramine (with Sugar) 4 Gm Powd.pack, 4 GM PO BID PRN for DIARRHEA, (Repor rosibel) Citalopram Hydrobromide 10 Mg Tablet, 20 MG PO HS, (Reported) TAKES 2 (10 MG) TABLETS Estradiol 10 Mcg Tablet, 10 MCG VG TuFr, (Reported) Fexofenadine HCl 180 Mg Tablet, 180 MG PO DAILY, (Reported) Fluticasone Propionate 16 Gm [place].susp, 1 SPRAY NS DAILY, (Reported) Folic Acid 1 Mg Tablet, 1 MG PO DAILY, (Reported) Guaifenesin 1,200 Mg Tab.er.12h, 1,200 MG PO BID PRN for CONGESTION, (Reported) Lidocaine HCl 76.5 Gm Cream..g., 76.5 GM TP QID PRN for BACK PAIN, (Reported) Lisinopril 20 Mg Tablet, 20 MG PO BID, (Reported) Loperamide HCl 2 Mg Capsule, 2 MG PO Q8H PRN for LOOSE STOOLS, (Reported) Lorazepam 0.5 Mg Tablet, 0.5 MG PO BID, (Reported) Metoprolol Succinate 25 Mg Tab.er.24h, 25 MG PO DAILY Prescribed by: MELANIA WINSLOW on 08/30/18 1456 Mometasone Furoate 13 Gm Hfa.aer.ad, 13 GM IH DAILY, (Reported) Montelukast Sodium 10 Mg Tablet, 10 MG PO HS, (Reported) Multivitamin 1 Each Tablet, 1 EACH PO DAILY, (Reported) Ondansetron 4 Mg Tab.rapdis, 4 MG PO Q4H PRN for NAUSEA/VOMITING, (Reported) Pravastatin Sodium 40 Mg Tablet, 40 MG PO HS, (Reported) Quetiapine Fumarate 100 Mg Tablet, 100 MG PO DAILY, (Reported) Rivaroxaban 20 Mg Tablet, 20 MG PO DAILY@1700 BIN [id number] Prescribed by: TRACEE FLETCHER on 04/28/18 0910 Rivastigmine Tartrate 1.5 Mg Capsule, 1.5 MG PO BID, (Reported) Tramadol HCl 50 Mg Tablet, 50 MG PO TID PRN for BACK PAIN, (Reported) Triamcinolone Acetonide 80 Gm Oint...g., TP HS, (Reported) APPLIES TO LABIA MAJORA / MAY MIX WITH ESTRACE CREAM Patient Home Medication List Home Medication List Reviewed: Yes Review of Systems Review of Systems Constitutional: see HPI EENTM: see HPI Respiratory: no symptoms reported Cardiovascular: no symptoms reported Gastrointestinal: abdominal pain, constipation Genitourinary: no symptoms reported Musculoskeletal: no symptoms reported Skin: no symptoms reported Psychiatric/Neurological: No Symptoms Reported Hematologic/Lymphatic: No Symptoms Reported Past Uvwtcoy-Yrdmgn-Pixwcw Hx Patient Social History Alcohol Beverage of Choice: Wine 2nd Hand Smoke Exposure: No Recent Foreign Travel: No Contact w/Someone Who Travel: No Recent Hopitalizations: No Immunizations Up To Date Tetanus Booster (TDap): Unknown Date of Pneumonia Vaccine: Feb 10, 2015 Date of Influenza Vaccine: Apr 06, 2018 Seasonal Allergies Seasonal Allergies: No Past Medical History Surgeries: Yes (CATARACTS, R SHOULDER/ARM) Abdominal, Appendectomy, Eye Surgery, Gallbladder, 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, Joint Replacement, Orthopedic, Pacemaker Respiratory: Yes (ALPHA 1 ANTITRIPSIN DEFICIENCY; BILATERAL P.E.'S 04/2018--ON XARELTO) Asthma, Pulmonary Embolism, COPD Currently Using CPAP: No Currently Using BIPAP: No Cardiac: Yes (PACEMAKER;"VASOVAGAL NERVE PROBLEMS" ) High Cholesterol, Hypertension Neurological: No Dementia 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 Disorders: No Female 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 Disorders: Denies, Endometriosis 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, 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 Sexually Transmitted Disease: No HIV/AIDS: No Genitourinary: Yes (INCONTINENCE) Gastrointestinal: Yes (BLEEDING ULCER X 3; PERFORATED ULCER 2006; 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) Gastrointestinal Bleed, Chronic Diarrhea, Polyps, Ulcer, Irritable Bowel Musculoskeletal: Yes Degenerate Disk Disease, Arthritis, Chronic Back Pain, Fractures Endocrine: No HEENT: Yes Cataract Loss of Vision: Denies Hearing Impairment: Hard of Hearing Cancer: No Psychosocial: Yes Anxiety Integumentary: No Blood Disorders: Yes (BILATERAL P.E.'S 04/2018) Adverse Reaction/Blood Tranf: No Family Medical History Blood clots (sister had a blood clot in the brain which caused her  in 2010) Physical Exam Vital Signs Vital Signs - First Documented 03/04/19 17:09 Temp 37.0 Pulse 67 Resp 18 B/P (MAP) 149/85 (106) Capillary Refill : Height, Weight, BMI Height: 5'3.00" Weight: 150lbs. 0.0oz. 68.132955nl; 36.3 BMI Method:Stated General Appearance: No Apparent Distress, WD/WN, Other (alert no distress) Eyes: Bilateral Eye Normal Inspection, Bilateral Eye PERRL HEENT: PERRL/EOMI, TMs Normal Respiratory: No Accessory Muscle Use, No Respiratory Distress Cardiovascular: Regular Rate, Rhythm, Normal Peripheral Pulses Gastrointestinal: Normal Bowel Sounds, Non Tender, Soft; No Tenderness Neurologic/Psychiatric: Alert, Oriented x3 (she is oriented to person place and situation) Skin: Normal Color, Warm/Dry Progress/Results/Core Measures Suspected Sepsis SIRS Temperature: Pulse: Respiratory Rate: Laboratory Tests 03/04/19 17:00: White Blood Count 11.9H Blood Pressure / Mean: Laboratory Tests 03/04/19 17:00: Creatinine 1.13, Platelet Count 386, Total Bilirubin 0.3 Results/Orders Lab Results Laboratory Tests Test 03/04/19 17:00 Range/Units White Blood Count 11.9 H 4.3-11.0 10^3/uL Red Blood Count 4.39 4.35-5.85 10^6/uL Hemoglobin 12.8 11.5-16.0 G/DL Hematocrit 40 35-52 % Mean Corpuscular Volume 91 80-99 FL Mean Corpuscular Hemoglobin 29 25-34 PG Mean Corpuscular Hemoglobin Concent 32 32-36 G/DL Red Cell Distribution Width 14.9 H 10.0-14.5 % Platelet Count 386 130-400 10^3/uL Mean Platelet Volume 9.6 7.4-10.4 FL Neutrophils (%) (Auto) 64 42-75 % Lymphocytes (%) (Auto) 23 12-44 % Monocytes (%) (Auto) 8 0-12 % Eosinophils (%) (Auto) 5 0-10 % Basophils (%) (Auto) 0 0-10 % Neutrophils # (Auto) 7.6 1.8-7.8 X 10^3 Lymphocytes # (Auto) 2.7 1.0-4.0 X 10^3 Monocytes # (Auto) 1.0 0.0-1.0 X 10^3 Eosinophils # (Auto) 0.6 H 0.0-0.3 10^3/uL Basophils # (Auto) 0.0 0.0-0.1 10^3/uL Urine Color YELLOW Urine Clarity CLEAR Urine pH 6 5-9 Urine Specific [place] 1.010 L 1.016-1.022 Urine Protein NEGATIVE NEGATIVE Urine Glucose (UA) NEGATIVE NEGATIVE Urine Ketones NEGATIVE NEGATIVE Urine Nitrite NEGATIVE NEGATIVE Urine Bilirubin NEGATIVE NEGATIVE Urine Urobilinogen NORMAL NORMAL MG/DL Urine Leukocyte Esterase NEGATIVE NEGATIVE Urine RBC (Auto) NEGATIVE NEGATIVE Urine RBC NONE /HPF Urine WBC RARE /HPF Urine Squamous Epithelial Cells 0-2 /HPF Urine Crystals NONE /LPF Urine Bacteria NEGATIVE /HPF Urine Casts NONE /LPF Urine Mucus NEGATIVE /LPF Urine Culture Indicated NO Sodium Level 136 135-145 MMOL/L Potassium Level 4.3 3.6-5.0 MMOL/L Chloride Level 105 98-107 MMOL/L Carbon Dioxide Level 22 21-32 MMOL/L Anion Gap 9 5-14 MMOL/L Blood Urea Nitrogen 24 H 7-18 MG/DL Creatinine 1.13 0.60-1.30 MG/DL Estimat Glomerular Filtration Rate 47 BUN/Creatinine Ratio 21 Glucose Level 128 H 70-105 MG/DL Calcium Level 9.8 8.5-10.1 MG/DL Corrected Calcium 9.6 8.5-10.1 MG/DL Total Bilirubin 0.3 0.1-1.0 MG/DL Aspartate Amino Transf (AST/SGOT) 24 5-34 U/L Alanine Aminotransferase (ALT/SGPT) 33 0-55 U/L Alkaline Phosphatase 107 40-136 U/L Total Protein 7.2 6.4-8.2 GM/DL Albumin 4.2 3.2-4.5 GM/DL My Orders Orders - MARTA BLAIR APRN Ct Abdomen/Pelvis Wo (03/04/19 16:52) Ua Culture If Indicated (03/04/19 16:52) Cbc With Automated Diff (03/04/19 16:52) Comprehensive Metabolic Panel (03/04/19 16:52) Vital Signs/I&O 03/04/19 17:09 Temp 37.0 Pulse 67 Resp 18 B/P (MAP) 149/85 (106) Capillary Refill : Departure Impression Primary Impression: Constipation Qualified Codes: K59.00 - Constipation, unspecified Disposition: 01 HOME, SELF-CARE Condition: Stable Departure-Patient Inst. Decision time for Depature: 18:06 Referrals: BRAD HDEZ MD (PCP/Family) Primary Care Physician Patient Instructions: Constipation, Adult (DC) Add. Discharge Instructions: 1. Increase her water intake 2. Return to ER for any concerns Scripts Polyethylene Glycol 3350 (Miralax) 17 Gm Powd.pack 34 GM PO BID, #30 EACH Prov: MARTA BLAIR APRN 03/04/19 MARTA BLAIR APRN Mar 04, 2019 16:56
[2019-03-04 17:12] LABS: BILIRUBIN,URINE NEGATIVE (NEGATIVE); CLARITY,URINE CLEAR; COLOR,URINE YELLOW; GLUCOSE, URINE (UA) NEGATIVE (NEGATIVE); KETONES,URINE NEGATIVE (NEGATIVE); LEUKOCYTE ESTERASE ,URINE NEGATIVE (NEGATIVE); NITRITE,URINE NEGATIVE (NEGATIVE); PH,URINE 6 (5-9); PROTEIN,URINE NEGATIVE (NEGATIVE); UROBILINOGEN,URINE NORMAL (NORMAL)
[2019-03-04 17:14] LABS: BASOPHILS % (AUTO) 0 % (0-10); EOSINOPHILS # (AUTO) 0.6 10^3/uL (0.0-0.3); EOSINOPHILS % (AUTO) 5 % (0-10); HEMATOCRIT 40 % (35-52); HEMOGLOBIN 12.8 G/DL (11.5-16.0); LYMPHOCYTES # (AUTO) 2.7 X 10^3 (1.0-4.0); LYMPHOCYTES % (AUTO) 23 % (12-44); MEAN CORPUSCULAR HEMOGLOBIN 29 PG (25-34); MEAN CORPUSCULAR HGB CONC 32 G/DL (32-36); MEAN CORPUSCULAR VOLUME 91 FL (80-99); MEAN PLATELET VOLUME 9.6 FL (7.4-10.4); MONOCYTES % (AUTO) 8 % (0-12); NEUTROPHILS # (AUTO) 7.6 X 10^3 (1.8-7.8); NEUTROPHILS % (AUTO) 64 % (42-75); PLATELET COUNT 386 10^3/uL (130-400); RED CELL DISTRIBUTION WIDTH 14.9 % (10.0-14.5); WHITE BLOOD COUNT 11.9 10^3/uL (4.3-11.0)
[2019-03-04 17:29] LABS: ALBUMIN 4.2 GM/DL (3.2-4.5); BACTERIA,URINE NEGATIVE /HPF; BILIRUBIN,TOTAL 0.3 MG/DL (0.1-1.0); CALCIUM 9.8 MG/DL (8.5-10.1); CREATININE SERUM 1.13 MG/DL (0.60-1.30); POTASSIUM 4.3 MMOL/L (3.6-5.0); SQUAMOUS EPITHELIAL CELL,UR 0-2 /HPF; TOTAL PROTEIN 7.2 GM/DL (6.4-8.2); WBC,URINE RARE /HPF
--- NOTE | 2019-03-04 17:55 | Diagnostic Imaging Report ---
INDICATION: Left-sided abdominal pain. FINDINGS: The lung bases are clear. There is moderate to large hiatal hernia. The gallbladder is absent. The liver, spleen, pancreas, adrenal glands and kidneys appear normal. Mild arterial sclerosis is present. Urinary bladder is normal. The uterus is absent. Bowel loops demonstrate nonobstructive or inflammatory changes. There is an abdominal wall hernia several centimeters above the umbilicus and just to the left midline. No inflammation is present in this. At this time this contains fat only. The hernia orifice is 3.4 cm. No ascites, free air or abnormal adenopathy is present. The osseous structures demonstrate some facet arthropathy. IMPRESSION: 1. There is moderate to large hiatal hernia. 2. There is an abdominal wall hernia containing fat only at this time. The orifice of this measures 3.4 cm. Dictated by: Dictated on workstation # [id number]
[2019-03-04] MEDS ORDERED: POLY17PO6 PO (18:08)
[2019-03-04 18:24] VITALS: BP 150/86
== END 2019-03-04 18:26 | disposition home or self-care (01) ==
LOC: EDUNIT# 16:43 → ER 16:44
DX: K59.00 Constipation, unspecified (principal); J44.9 Chronic obstructive pulmonary disease, unspecified; I10 Essential (primary) hypertension; E78.00 Pure hypercholesterolemia, unspecified; F03.90 Unspecified dementia, unspecified severity, without behavioral disturbance, psychotic disturbance, mood disturbance, and anxiety; K58.9 Irritable bowel syndrome, unspecified; F41.9 Anxiety disorder, unspecified; Z79.01 Long term (current) use of anticoagulants; Z86.711 Personal history of pulmonary embolism; Z90.49 Acquired absence of other specified parts of digestive tract; Z90.710 Acquired absence of both cervix and uterus; Z95.0 Presence of cardiac pacemaker; Z88.0 Allergy status to penicillin; Z88.5 Allergy status to narcotic agent; Z88.1 Allergy status to other antibiotic agents; Z88.8 Allergy status to other drugs, medicaments and biological substances; Z79.51 Long term (current) use of inhaled steroids; Z79.52 Long term (current) use of systemic steroids
CPT/HCPCS: 36415; 74176; 80053; 81000; 85025

== ENCOUNTER → 2019-03-17 | Outpatient (CLI) | payer MEDICARE, MEDICAID ==
[2019-03-17 15:44] LABS: BASOPHILS # (AUTO) 0.1 10^3/uL (0.0-0.1); BASOPHILS % (AUTO) 0 % (0-10); EOSINOPHILS # (AUTO) 0.5 10^3/uL (0.0-0.3); EOSINOPHILS % (AUTO) 4 % (0-10); HEMATOCRIT 42 % (35-52); HEMOGLOBIN 13.3 G/DL (11.5-16.0); LYMPHOCYTES % (AUTO) 24 % (12-44); MEAN CORPUSCULAR HEMOGLOBIN 29 PG (25-34); MEAN CORPUSCULAR HGB CONC 32 G/DL (32-36); MEAN CORPUSCULAR VOLUME 90 FL (80-99); MEAN PLATELET VOLUME 9.9 FL (7.4-10.4); MONOCYTES # (AUTO) 0.8 X 10^3 (0.0-1.0); MONOCYTES % (AUTO) 6 % (0-12); NEUTROPHILS # (AUTO) 8.3 X 10^3 (1.8-7.8); NEUTROPHILS % (AUTO) 66 % (42-75); PLATELET COUNT 393 10^3/uL (130-400); RED CELL DISTRIBUTION WIDTH 14.4 % (10.0-14.5); WHITE BLOOD COUNT 12.6 10^3/uL (4.3-11.0)
[2019-03-17 16:05] LABS: BILIRUBIN,TOTAL 0.3 MG/DL (0.1-1.0); CALCIUM 9.8 MG/DL (8.5-10.1); CREATININE SERUM 1.16 MG/DL (0.60-1.30); POTASSIUM 4.1 MMOL/L (3.6-5.0); TOTAL PROTEIN 6.9 GM/DL (6.4-8.2)
== END ==
LOC: EDSTATUS 02-11 14:55 → ONC 15:27
PROVIDERS: ATTEND Internal Medicine Hematology & Oncology
DX: D72.829 Elevated white blood cell count, unspecified (principal); D64.9 Anemia, unspecified; D47.3 Essential (hemorrhagic) thrombocythemia; E88.01 Alpha-1-antitrypsin deficiency; J44.9 Chronic obstructive pulmonary disease, unspecified; I10 Essential (primary) hypertension; M17.0 Bilateral primary osteoarthritis of knee; F41.9 Anxiety disorder, unspecified; J45.909 Unspecified asthma, uncomplicated; Z79.899 Other long term (current) drug therapy; Z95.0 Presence of cardiac pacemaker
CPT/HCPCS: 36415; 80053; 85025; 99213

== ENCOUNTER → 2019-03-18 | Outpatient (CLI) | payer MEDICAID, MEDICARE ==
--- NOTE | 2019-03-18 12:57 | Diagnostic Imaging Report ---
Indication: Routine screening. Comparison is made with prior mammogram from 11/13/2017 and 11/04/2016. 2-D and 3-D bilateral screening mammography was performed with CAD. Scattered fibroglandular densities are identified bilaterally. There are benign calcifications in both breasts. No dominant mass or malignant appearing microcalcifications are seen. The axillae are unremarkable. IMPRESSION: BI-RADS Category 2 No mammographic features suspicious for malignancy are identified. ACR BI-RADS Category 2: Benign findings. Result letter will be mailed to the patient. Note: At least 10% of breast cancer is not imaged by mammography. Dictated by: Dictated on workstation # [id number]
== END ==
LOC: RAD 10:47
PROVIDERS: ATTEND Physician Assistant
DX: Z12.31 Encounter for screening mammogram for malignant neoplasm of breast (principal)
CPT/HCPCS: 77067

== ENCOUNTER 2019-05-10 09:24 | Emergency (ER) | payer MEDICARE, MEDICAID ==
[~2019-05-10] VITALS: Ht 160 cm; Wt 92.0 kg
[~2019-05-10 09:24] MED LIST changes: +IBAN150T21 PO; -IBAN150T8 PO; -LOPE-145 PO; +LOPE-175 PO; -METO-387 PO; +MTP25TSR PO; +OMEP-280 PO; -OMEP20CA13 PO; -TRAM50TA2 PO; +TRM50T PO
[2019-05-10] MEDS ORDERED: methylPREDNISolone 125 MG (Solu-MEDROL) VIAL IV STA (10:09)
--- NOTE | 2019-05-10 10:14 | ED Cough/URI ---
General Stated Complaint: COUGH;WHEEZING;CONGESTION Source: patient Exam Limitations: no limitations History of Present Illness Date Seen by Provider: May 10, 2019 Time Seen by Provider: 10:11 Initial Comments 79-year-old female presents with cough, congestion, wheezing. Patient reports a cough been going on for about a week to week and a half that has gotten worse. No reports of fever. She denies taken any breathing treatments at home. Patient does not complain of any body aches, fevers or chills. Family reports that she has a significant anxiety history. Allergies and Home Medications Allergies Coded Allergies: Penicillins (Verified Allergy, Mild, 09/01/18) ketorolac (Verified Allergy, Mild, 09/01/18) morphine (Verified Allergy, Mild, 09/01/18) tetracycline (Verified Allergy, Mild, 09/01/18) paroxetine (Unverified Allergy, Unknown, 09/01/18) Home Medications Acetaminophen 500 Mg Tablet, 1,000 MG PO DAILY, (Reported) TAKES 2 (500 MG) TABLETS Acetaminophen 500 Mg Tablet, 1,000 MG PO BID PRN for PAIN-MILD, (Reported) Calcium Carbonate/Vitamin D3 1 Each Tablet, 1 TAB PO DAILY, (Reported) Cholestyramine (with Sugar) 4 Gm Powd.pack, 4 GM PO BID PRN for DIARRHEA, (Reported) Citalopram Hydrobromide 10 Mg Tablet, 20 MG PO HS, (Reported) TAKES 2 (10 MG) TABLETS Estradiol 10 Mcg Tablet, 10 MCG VG TuFr, (Reported) Fexofenadine HCl 180 Mg Tablet, 180 MG PO DAILY, (Reported) Fluticasone Propionate 16 Gm [place].susp, 1 SPRAY NS DAILY, (Reported) Folic Acid 1 Mg Tablet, 1 MG PO DAILY, (Reported) Guaifenesin 1,200 Mg Tab.er.12h, 1,200 MG PO BID PRN for CONGESTION, (Reported) Lidocaine HCl 76.5 Gm Cream..g., 76.5 GM TP QID PRN for BACK PAIN, (Reported) Lisinopril 20 Mg Tablet, 20 MG PO BID, (Reported) Loperamide HCl 2 Mg Capsule, 2 MG PO Q8H PRN for LOOSE STOOLS, (Reported) Lorazepam 0.5 Mg Tablet, 0.5 MG PO BID, (Reported) Metoprolol Succinate 25 Mg Tab.er.24h, 25 MG PO DAILY Prescribed by: MELANIA WINSLOW on 08/30/18 1456 Mometasone Furoate 13 Gm Hfa.aer.ad, 13 GM IH DAILY, (Reported) Montelukast Sodium 10 Mg Tablet, 10 MG PO HS, (Reported) Multivitamin 1 Each Tablet, 1 EACH PO DAILY, (Reported) Ondansetron 4 Mg Tab.rapdis, 4 MG PO Q4H PRN for NAUSEA/VOMITING, (Reported) Polyethylene Glycol 3350 17 Gm Powd.pack, 34 GM PO BID Prescribed by: MARTA BLAIR on 03/04/19 1808 Pravastatin Sodium 40 Mg Tablet, 40 MG PO HS, (Reported) Quetiapine Fumarate 100 Mg Tablet, 100 MG PO DAILY, (Reported) Rivaroxaban 20 Mg Tablet, 20 MG PO DAILY@1700 BIN [id number] Prescribed by: TRACEE FLETCHER on 04/28/18 0910 Rivastigmine Tartrate 1.5 Mg Capsule, 1.5 MG PO BID, (Reported) Tramadol HCl 50 Mg Tablet, 50 MG PO TID PRN for BACK PAIN, (Reported) Triamcinolone Acetonide 80 Gm Oint...g., TP HS, (Reported) APPLIES TO LABIA MAJORA / MAY MIX WITH ESTRACE CREAM Patient Home Medication List Home Medication List Reviewed: Yes Review of Systems Review of Systems Constitutional: No chills, No fever EENTM: nose congestion Respiratory: cough, wheezing Cardiovascular: No chest pain, No palpitations Gastrointestinal: no symptoms reported Genitourinary: no symptoms reported Musculoskeletal: no symptoms reported Skin: no symptoms reported Past Cdhbhgv-Asnski-Neqzre Hx Past Med/Social Hx: Reviewed Nursing Past Med/Soc Hx Patient Social History Alcohol Beverage of Choice: Wine 2nd Hand Smoke Exposure: No Recent Hopitalizations: No Immunizations Up To Date Tetanus Booster (TDap): Unknown Date of Pneumonia Vaccine: Feb 10, 2015 Date of Influenza Vaccine: Apr 06, 2018 Seasonal Allergies Seasonal Allergies: No Past Medical History Surgeries: No Abdominal, Appendectomy, Eye Surgery, Gallbladder, 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, Joint Replacement, Orthopedic, Pacemaker Respiratory: No Asthma, Pulmonary Embolism, COPD Currently Using CPAP: No Currently Using BIPAP: No Cardiac: No High Cholesterol, Hypertension Neurological: No Dementia 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 Disorders: No Female 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 Disorders: Denies, 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, 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 Sexually Transmitted Disease: No HIV/AIDS: No Genitourinary: No Gastrointestinal: Yes (BLEEDING ULCER X 3; PERFORATED ULCER 2006; 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) Gastrointestinal Bleed, Chronic Diarrhea, Polyps, Ulcer, Irritable Bowel Musculoskeletal: Yes Degenerate Disk Disease, Arthritis, Chronic Back Pain, Fractures Endocrine: No HEENT: No Cataract Loss of Vision: Denies Hearing Impairment: Hard of Hearing Cancer: No Psychosocial: Yes Anxiety Integumentary: No Blood Disorders: Yes (BILATERAL P.E.'S 04/2018) Adverse Reaction/Blood Tranf: No Family Medical History Blood clots (sister had a blood clot in the brain which caused her  in 2010) Physical Exam Vital Signs - First Documented 05/10/19 05/10/19 10:21 10:35 Temp 36.8 Pulse 67 Resp 18 B/P (MAP) 155/106 (122) Pulse Ox 94 O2 Delivery Room Air Capillary Refill : Height: 5'3.00" Weight: 150lbs. 0.0oz. [id number]; 30.00 BMI Method:Stated General Appearance: WD/WN, no apparent distress HEENT: PERRL/EOMI Neck: full range of motion, supple Respiratory: chest non-tender, no accessory muscle use, wheezing (moderate diffuse) Cardiovascular: normal peripheral pulses, regular rate, rhythm Gastrointestinal: non tender, soft Neurologic/Psychiatric: normal mood/affect, oriented x 3 Skin: normal color, warm/dry Progress/Results/Core Measures Suspected Sepsis SIRS Temperature: Pulse: Respiratory Rate: Laboratory Tests 05/10/19 10:10: White Blood Count 11.6H Blood Pressure / Mean: Laboratory Tests 05/10/19 10:10: Creatinine 1.13, Platelet Count 395 Results/Orders Lab Results Laboratory Tests Test 05/10/19 10:10 Range/Units White Blood Count 11.6 H 4.3-11.0 10^3/uL Red Blood Count 4.38 4.35-5.85 10^6/uL Hemoglobin 13.3 11.5-16.0 G/DL Hematocrit 42 35-52 % Mean Corpuscular Volume 95 80-99 FL Mean Corpuscular Hemoglobin 30 25-34 PG Mean Corpuscular Hemoglobin Concent 32 32-36 G/DL Red Cell Distribution Width 14.2 10.0-14.5 % Platelet Count 395 130-400 10^3/uL Mean Platelet Volume 10.1 7.4-10.4 FL Neutrophils (%) (Auto) 68 42-75 % Lymphocytes (%) (Auto) 22 12-44 % Monocytes (%) (Auto) 6 0-12 % Eosinophils (%) (Auto) 4 0-10 % Basophils (%) (Auto) 0 0-10 % Neutrophils # (Auto) 7.8 1.8-7.8 X 10^3 Lymphocytes # (Auto) 2.6 1.0-4.0 X 10^3 Monocytes # (Auto) 0.7 0.0-1.0 X 10^3 Eosinophils # (Auto) 0.5 H 0.0-0.3 10^3/uL Basophils # (Auto) 0.1 0.0-0.1 10^3/uL Sodium Level 137 135-145 MMOL/L Potassium Level 4.4 3.6-5.0 MMOL/L Chloride Level 103 98-107 MMOL/L Carbon Dioxide Level 23 21-32 MMOL/L Anion Gap 11 5-14 MMOL/L Blood Urea Nitrogen 26 H 7-18 MG/DL Creatinine 1.13 0.60-1.30 MG/DL Estimat Glomerular Filtration Rate 47 BUN/Creatinine Ratio 23 Glucose Level 109 H 70-105 MG/DL Calcium Level 10.4 H 8.5-10.1 MG/DL Micro Results Microbiology 05/10/19 Influenza Types A,B Antigen (SINA) - Final, Complete 05/10/19 Respiratory Syncytial Virus Ag - Final, Complete My Orders Orders - VARGAS DURAND DO Albuterol/Ipra Inhalation Soln (Duoneb I (05/10/19 10:15) Methylprednisolone Sod Succ (Solu-Medrol (05/10/19 10:09) Svn Small Volume Nebulizer (05/10/19 10:09) Chest Pa/Lat (2 View) (05/10/19 10:09) Basic Metabolic Panel (05/10/19 10:09) Cbc With Automated Diff (05/10/19 10:09) Influenza A And B Antigens (05/10/19 10:09) Rsv Antigen (05/10/19 10:09) Albuterol/Ipra Inhalation Soln (Duoneb I (05/10/19 11:45) Svn Small Volume Nebulizer (05/10/19 11:39) Medications Given in ED Current Medications Medications Dose Ordered Sig/Lee Route Start Time Stop Time Status Last Admin Dose Admin Albuterol/ Ipratropium 3 ml ONCE ONCE INH 05/10/19 10:15 05/10/19 10:16 DC 05/10/19 10:31 3 ML Vital Signs/I&O 05/10/19 05/10/19 10:21 10:35 Temp 36.8 Pulse 67 Resp 18 B/P (MAP) 155/106 (122) Pulse Ox 94 94 O2 Delivery Room Air Capillary Refill : Progress Note : Time: 11:41 Progress Note Patient with significant improvement with her symptoms following her DuoNeb treatment. Patient will be discharged home with azithromycin. She has albuterol but has not been using it. Discussed with her the need to use that every 4 hours for the next 24 hours and as needed. Patient should follow-up with her primary care provider if not improving over the next couple days. ECG Initial ECG Impression: 2nd Degree AV Block Departure Impression Primary Impression: COPD (chronic obstructive pulmonary disease) Qualified Codes: J44.0 - Chronic obstructive pulmonary disease with (acute) lower respiratory infection Disposition: 01 HOME, SELF-CARE Condition: Stable Departure-Patient Inst. Referrals: BRAD HDEZ MD (PCP/Family) Primary Care Physician Patient Instructions: Acute Bronchitis, Child (DC), Chronic Bronchitis (DC) Add. Discharge Instructions: Use your nebulizer every 4 hours for the next 24 hours while awake. Follow-up with your primary care provider in 3-4 days if not improving The Emergency Department focuses on treating and ruling out life-threatening diseases. Whenever possible, a diagnosis is given. However most patient's are given an impression based on the history, physical exam, and workup during their brief time in the ER. Information about probable diagnosis and other education al material has been provided. Please take the time to read and understand this information. It is very important that he follow up with a doctor as discussed during her visit today. Failure to adhere to your follow-up instructions may result in severe disability, injury or so please make sure to keep your appointments. Please keep in mind the emergency department is not designed to be your primary care or "family doctor" and not urgent issues are best evaluated by an outpatient physician Scripts Benzonatate (TESSALON PERLES) 100 Mg Capsule 100 MG PO TID PRN for COUGH, #20 CAP Prov: VARGAS DURAND DO 05/10/19 Azithromycin (Azithromycin) 250 Mg Tablet 250 MG PO UD, #6 TAB TAKE 2 TABLETS ON DAY ONE THEN TAKE 1 TABLET DAILY FOR FOUR MORE DAYS Prov: VARGAS DURAND DO 05/10/19 VARGAS DURAND DO May 10, 2019 10:14 POS
[2019-05-10] MEDS ORDERED: RT-ALBUTEROL/IPRATROPIUM 3 ML (DUONEB) VIAL INH ONE ×2 (10:15→11:45)
[2019-05-10 10:23] LABS: BASOPHILS # (AUTO) 0.1 10^3/uL (0.0-0.1); BASOPHILS % (AUTO) 0 % (0-10); EOSINOPHILS # (AUTO) 0.5 10^3/uL (0.0-0.3); EOSINOPHILS % (AUTO) 4 % (0-10); HEMATOCRIT 42 % (35-52); HEMOGLOBIN 13.3 G/DL (11.5-16.0); LYMPHOCYTES # (AUTO) 2.6 X 10^3 (1.0-4.0); LYMPHOCYTES % (AUTO) 22 % (12-44); MEAN CORPUSCULAR HEMOGLOBIN 30 PG (25-34); MEAN CORPUSCULAR HGB CONC 32 G/DL (32-36); MEAN CORPUSCULAR VOLUME 95 FL (80-99); MEAN PLATELET VOLUME 10.1 FL (7.4-10.4); MONOCYTES # (AUTO) 0.7 X 10^3 (0.0-1.0); MONOCYTES % (AUTO) 6 % (0-12); NEUTROPHILS # (AUTO) 7.8 X 10^3 (1.8-7.8); NEUTROPHILS % (AUTO) 68 % (42-75); PLATELET COUNT 395 10^3/uL (130-400); RED CELL DISTRIBUTION WIDTH 14.2 % (10.0-14.5); WHITE BLOOD COUNT 11.6 10^3/uL (4.3-11.0)
[2019-05-10 10:53] LABS: CALCIUM 10.4 MG/DL (8.5-10.1); CREATININE SERUM 1.13 MG/DL (0.60-1.30); POTASSIUM 4.4 MMOL/L (3.6-5.0)
--- NOTE | 2019-05-10 11:21 | Diagnostic Imaging Report ---
INDICATION: Wheezing and cough. TECHNIQUE/COMPARISON: PA and lateral chest obtained at 11:01 AM and compared to 10/05/2018. FINDINGS: The heart and mediastinal silhouette are normal in appearance. The lungs are clear. There is no pneumothorax or pleural fluid. The pacemaker device is unchanged. Exaggerated kyphotic changes in the thoracic spine are noted. IMPRESSION: No acute process in the chest. Dictated by: Dictated on workstation # [id number]
--- NOTE | 2019-05-10 11:42 | NUR ---
Tunnel Inspector support offered to daughter, Mechelle, whose father and significant other dies this year. She requested follow up field contact person support. The has a positive attitude and pleasant demeanor with this field contact person, with whom she has strong rapport.
[2019-05-10] MEDS ORDERED: AZIT250T12 PO (11:44)
[2019-05-10] MEDS ORDERED: BENZ100C18 PO (11:44)
[2019-05-10 12:07] VITALS: BP 155/106
--- OUTSIDE RECORDS SUMMARY | 2019-06-04 08:38 | XMS REPORT | Continuity of Care Document ---
Author Organization Unknown Address Unknown Phone Unavailable Allergies Active Description Code Type Severity Reaction Onset Reported/Identified Relationship to Patient Clinical Status Yes ketorolac [id number] Drug Allergy Mild N/A 09/01/2018 Yes morphine [id number] Drug Allergy Mild N/A 09/01/2018 Yes Penicillins [id number] Drug Aller gy Mild N/A 09/01/2018 Yes tetracycline [id number] Drug Allergy Mild N/A 09/01/2018 Yes paroxetine [id number] Drug Allerg y Unknown N/A 09/01/2018 Medications There is no data. Problems Date Dx Coded Attending Type Code Diagnosis Diagnosed By 08/13/2015 VARGAS DURAND DO Ot F41.9 ANXIETY DISORDER, UNSPECIFIED 08/13/2015 KIZZY LEONG, VARGAS L Ot I51.7 CARDIOMEGALY 08/13/2015 KIZZY LEONG, VARGAS L Ot J40 BRONCHITIS, NOT SPECIFIED ACUTE OR CH 08/13/2015 KIZZY LEONG VARGAS L Ot K21.9 GASTRO-ESOPHAGEAL REFLUX DISEASE WITHOUT 08/19/2015 KIZZY LEONG VARGAS L Ot F41.9 08/19/2015 KIZZY LEONG, VARGAS L Ot I51.7 08/19/2015 KIZZY LEONG, VARGAS L Ot J40 08/19/2015 KIZZY LEONG, VARGAS L Ot K21.9 11/24/2015 ODILIA LAKE DO Ot F41.9 ANXIETY DISORDER, UNSPECIFIED 11/24/2015 ODILIA LAKE DO Ot S01.112 A LACERATION W/O FB OF LEFT EYELID AND PER 11/24/2015 ODILIA LAKE DO Ot S02.8XX A FRACTURES OF OT SKULL AND FACIAL BONES, 11/24/2015 ODILIA LAKE DO Ot S06.0X0 A CONCUSSION WITHOUT LOSS OF CONSCIOUSNESS 11/24/2015 ODILIA LAKE DO Ot W17.89X A OTHER FALL FROM ONE LEVEL TO ANOTHER, IN 11/24/2015 ODILIA LAKE DO Ot Y92.[address] IN SINGLE-FAMILY (PRIVATE) [facility] 11/24/2015 JAYA , ODILIA Baptiste Ot Y99.8 OTHER EXTERNAL CAUSE STATUS 11/26/2015 JAYA , ODILIA Baptiste Ot F41.9 ANXIETY DISORDER, UNSPECIFIED 11/26/2015 MCDONOUGH , ODILIA K Ot S01.112 A LACERATION W/O FB OF LEFT EYELID AND PER 11/26/2015 [facility], ODILIA K Ot S02.8XX A FRACTURES OF OTH SKULL AND FACIAL BONES, 11/26/2015 MCDONOUGH ODILIA LEONG K Ot S06.0X0 A CONCUSSION WITHOUT LOSS OF CONSCIOUSNESS 11/26/2015 [facility], ODILIA K Ot W17.89X A OTHER FALL FROM ONE LEVEL TO ANOTHER, IN 11/26/2015 JAYA DO, ODILIA Baptiste Ot Y92.[address] IN SINGLE-FAMILY (PRIVATE) [facility] 11/26/2015 JAYA , ODILIA Baptiste Ot Y99.8 OTHER EXTERNAL CAUSE STATUS 12/07/2015 JAYA , ODILIA Baptiste Ot F41.9 ANXIETY DISORDER, UNSPECIFIED 12/07/2015 MCDONOUGH , ODILIA K Ot S01.112 A LACERATION W/O FB OF LEFT EYELID AND PER 12/07/2015 [facility], ODILIA Baptiste Ot S02.8XX A FRACTURES OF OTH SKULL AND FACIAL BONES, 12/07/2015 [facility], ODILIA K Ot S06.0X0 A CONCUSSION WITHOUT LOSS OF CONSCIOUSNESS 12/07/2015 [facility], ODILIA Baptiste Ot W17.89X A OTHER FALL FROM ONE LEVEL TO ANOTHER, IN 12/07/2015 MCDONOUGH ODILIA Baptiste Ot Y92.[address] IN SINGLE-FAMILY (PRIVATE) [facility] 12/07/2015 JAYA , ODILIA Baptiste Ot Y99.8 OTHER EXTERNAL CAUSE STATUS 01/02/2016 JUANJO KEATING, DARCI P Ot H53 .2 DIPLOPIA 01/02/2016 JUANJO KEATING, DARCI P Ot R51 HEADACHE 01/07/2016 JUANJO KEATING, DARCI P Ot H53 .2 DIPLOPIA 01/07/2016 JUANJO KEATING, DARCI P Ot R51 HEADACHE 01/07/2016 JUANJO KEATING, DARCI P Ot H53 .2 DIPLOPIA 01/07/2016 JUANJO KEATING, DARCI P Ot R51 HEADACHE 01/22/2016 JUANJO KEATING, DARCI P Ot H53 .2 DIPLOPIA 01/22/2016 JUANJO KEATING, DARCI P Ot R51 HEADACHE 01/30/2016 JUANJO KEATING, DARCI P Ot H53 .2 DIPLOPIA 01/30/2016 JUANJO KEATING, DARCI P Ot R51 HEADACHE 02/07/2016 JUANJO KEATING, DARCI P Ot 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 9 IRRITABLE BOWEL SYNDROME WITHOUT DIARRHE 10/03/2016 BERYL KEATING, LIZZY Aguilar Ot R10. 12 LEFT UPPER QUADRANT PAIN 10/03/2016 LIZZY CORDOBA MD Ot R10. 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 9 IRRITABLE BOWEL SYNDROME WITHOUT DIARRHE 10/03/2016 BERYL KEATING, LIZZY Aguilar Ot R10. 12 LEFT UPPER QUADRANT PAIN 10/03/2016 LIZZY CORDOBA MD Ot R10. 32 LEFT LOWER QUADRANT PAIN 10/03/2016 BERYL KEATING, LIZZY Aguilar Ot Z01.818 ENCOUNTER FOR OTHER PREPROCEDURAL EXAMIN 10/03/2016 LIZZY CORDOBA MD Ot Z86.010 PERSONAL HISTORY OF COLONIC POLYPS 10/03/2016 LIZZY CORDOBA MD Ot K21. 9 GASTRO-ESOPHAGEAL REFLUX DISEASE WITHOUT 10/03/2016 LIZZY CORDOBA MD Ot K31. 7 POLYP OF STOMACH AND DUODENUM 10/03/2016 LIZZY CORDOBA MD Ot K44. 9 DIAPHRAGMATIC HERNIA WITHOUT OBSTRUCTION 10/03/2016 LIZZY CORDOBA MD Ot K57. 30 DVRTCLOS OF LG INT W/O PERFORATION OR AB 10/03/2016 LIZZY CORDOBA MD Ot K63. 5 POLYP OF COLON 10/07/2016 LIZZY CORDOBA MD Ot K21. 9 GASTRO-ESOPHAGEAL REFLUX DISEASE WITHOUT 10/07/2016 LIZZY CORDOBA MD Ot K31. 7 POLYP OF STOMACH AND DUODENUM 10/07/2016 LIZZY CORDOBA MD Ot K44. 9 DIAPHRAGMATIC HERNIA WITHOUT OBSTRUCTION 10/07/2016 LIZZY CORDOBA MD Ot K57. 30 DVRTCLOS OF LG INT W/O PERFORATION OR AB 10/07/2016 LIZZY CORDOBA MD Ot K63. 5 POLYP OF COLON 10/09/2016 LIZZY CORDOBA MD Ot K21. 9 GASTRO-ESOPHAGEAL REFLUX DISEASE WITHOUT 10/09/2016 LIZZY CORDOBA MD Ot K31. 7 POLYP OF STOMACH AND DUODENUM 10/09/2016 LIZZY CORDOBA MD Ot K44. 9 DIAPHRAGMATIC HERNIA WITHOUT OBSTRUCTION 10/09/2016 LIZZY CORDOBA MD Ot K57. 30 DVRTCLOS OF LG INT W/O PERFORATION OR AB 10/09/2016 LIZZY CORDOBA MD Ot K63. 5 POLYP OF COLON 10/09/2016 LIZZY CORDOBA MD Ot K21. 9 GASTRO-ESOPHAGEAL REFLUX DISEASE WITHOUT 10/09/2016 LIZZY CORDOBA MD Ot K31. 7 POLYP OF STOMACH AND DUODENUM 10/09/2016 LIZZY CORDOBA MD Ot K44. 9 DIAPHRAGMATIC HERNIA WITHOUT OBSTRUCTION 10/09/2016 LIZZY CORDOBA MD Ot K57. 30 DVRTCLOS OF LG INT W/O PERFORATION OR AB 10/09/2016 LIZZY CORDOBA MD Ot K63. 5 POLYP OF COLON 10/31/2016 LOY HUGHES DO Ot Z12.3 9 ENCOUNTER FOR OTH SCREENING FOR MALIGNAN 10/31/2016 LOY HUGHES DO Ot Z12.3 1 ENCNTR SCREEN MAMMOGRAM FOR MALIGNANT NE 10/31/2016 LOY HUGHES DO Ot Z12.3 1 ENCNTR SCREEN MAMMOGRAM FOR MALIGNANT NE 11/04/2016 JUANJO KEATING, DARCI Hartmann Ot H53 .2 DIPLOPIA 11/04/2016 JUANJO KEATING, DARCI P Ot R51 HEADACHE 11/04/2016 LIZZY CORDOBA MD Ot K58. 9 IRRITABLE BOWEL SYNDROME WITHOUT DIARRHE 11/04/2016 LIZZY CORDOBA MD Ot R10. 12 LEFT UPPER QUADRANT PAIN 11/04/2016 LIZZY CORDOBA MD Ot R10. 32 LEFT LOWER QUADRANT PAIN 11/04/2016 LIZZY CORDOBA MD Ot Z01.818 ENCOUNTER FOR OTHER PREPROCEDURAL EXAMIN 11/04/2016 LIZZY CORDOBA MD Ot Z86.010 PERSONAL HISTORY OF COLONIC POLYPS 11/04/2016 LOY HUGHES DO Ot Z12.3 1 ENCNTR SCREEN MAMMOGRAM FOR MALIGNANT NE 11/25/2016 LOY HUGHES DO C Ot Z12.3 1 ENCNTR SCREEN MAMMOGRAM FOR MALIGNANT NE 12/25/2016 LOY HUGHES DO Ot Z12.3 1 ENCNTR SCREEN MAMMOGRAM FOR MALIGNANT NE 04/15/2017 ESTEFANIA CLEMENTE MD Ot M48.50XA COLLAPSED VERTEBRA, NEC, SITE UNSP, INIT 04/28/2017 ESTEFANIA CLEMENTE MD Ot M48.50XA COLLAPSED VERTEBRA, NEC, SITE UNSP, INIT 05/20/2017 ESTEFANIA CLEMENTE MD Ot M48.50XA COLLAPSED VERTEBRA, NEC, SITE UNSP, INIT 05/20/2017 LIZZY CORDOBA MD Ot K58. 9 IRRITABLE BOWEL SYNDROME WITHOUT DIARRHE 05/20/2017 LIZZY CORDOBA MD Ot R10. 12 LEFT UPPER QUADRANT PAIN 05/20/2017 LIZZY CORDOBA MD Ot R10. 32 LEFT LOWER QUADRANT PAIN 05/20/2017 LIZZY CORDOBA MD Ot Z01.818 ENCOUNTER FOR OTHER PREPROCEDURAL EXAMIN 05/20/2017 LIZZY CORDOBA MD Ot Z86.010 PERSONAL HISTORY OF COLONIC POLYPS 05/20/2017 LOY HUGHES DO Ot Z12.3 1 ENCNTR SCREEN MAMMOGRAM FOR MALIGNANT NE 05/20/2017 BRYN KEATING, ESTEFANIA Dodd Ot M48.50XA COLLAPSED VERTEBRA, NEC, SITE UNSP, INIT 06/11/2017 ESTEFANIA CLEMENTE MD Ot M48.50XA COLLAPSED VERTEBRA, NEC, SITE UNSP, INIT 06/11/2017 ESTEFANIA CLEMENTE MD Ot M85.88 OTH DISRD OF BONE DENSITY AND STRUCTURE, 06/19/2017 ESTEFNAIA CLEMENTE MD Ot M48.50XA COLLAPSED VERTEBRA, NEC, SITE UNSP, INIT 06/19/2017 ESTEFANIA CLEMENTE MD Ot M85.88 OTH DISRD OF BONE DENSITY AND STRUCTURE, 07/13/2017 JUANJO KEATING, DARCI P Ot H53 .2 DIPLOPIA 07/13/2017 JUANJO KEATING, DARCI P Ot R51 HEADACHE 07/13/2017 BERYL KEATING, LIZZY Aguilar Ot K58. 9 IRRITABLE BOWEL SYNDROME WITHOUT DIARRHE 07/13/2017 BERYL KEATING, LIZZY Aguilar Ot R10. 12 LEFT UPPER QUADRANT PAIN 07/13/2017 BERYL KEATING, LIZZY Aguilar Ot R10. 32 LEFT LOWER QUADRANT PAIN 07/13/2017 BERYL KEATING, LIZZY Aguilar Ot Z01.818 ENCOUNTER FOR OTHER PREPROCEDURAL EXAMIN 07/13/2017 BERYL KEATING, LIZZY Aguilar Ot Z86.010 PERSONAL HISTORY OF COLONIC POLYPS 07/13/2017 LOY HUGHES DO Ot Z12.3 1 ENCNTR SCREEN MAMMOGRAM FOR MALIGNANT NE 07/13/2017 ESTEFANIA CLEMENTE MD Ot M48.50XA COLLAPSED VERTEBRA, NEC, SITE UNSP, INIT 07/13/2017 ESTEFANIA CLEMENTE MD Ot M85.88 OTH DISRD OF BONE DENSITY AND STRUCTURE, 07/15/2017 CAS KEATING, Kody CISNEROS Ot D72.829 ELEVATED WHITE BLOOD CELL COUNT, UNSPECI 07/15/2017 Kody CARDOZO MD Ot E78.00 PURE HYPERCHOLESTEROLEMIA, UNSPECIFIED 07/15/2017 Kody CARDOZO MD Ot E86 .0 DEHYDRATION 07/15/2017 Kody CARDOZO MD Ot E87 .8 OTH DISORDERS OF ELECTROLYTE AND FLUID B 07/15/2017 Kody CARDOZO MD Ot F03.90 UNSPECIFIED DEMENTIA WITHOUT BEHAVIORAL 07/15/2017 Kody CARDOZO MD Ot I10 ESSENTIAL (PRIMARY) HYPERTENSION 07/15/2017 Kody CARDOZO MD Ot J44 .9 CHRONIC OBSTRUCTIVE PULMONARY DISEASE, U 07/15/2017 Kody CARDOZO MD Ot K58 .9 IRRITABLE BOWEL SYNDROME WITHOUT DIARRHE 07/15/2017 Kody CARDOZO MD Ot K59.09 OTHER CONSTIPATION 07/15/2017 Kody CARDOZO MD Ot M19.90 UNSPECIFIED OSTEOARTHRITIS, UNSPECIFIED 07/15/2017 Kody CARDOZO MD Ot M54 .9 DORSALGIA, UNSPECIFIED 07/15/2017 Kody CARDOZO MD Ot N28 .9 DISORDER OF KIDNEY AND URETER, UNSPECIFI 07/15/2017 Kody CARDOZO MD Ot R00 .1 BRADYCARDIA, UNSPECIFIED 07/15/2017 Kody CARDOZO MD Ot [...] HYPERCHOLESTEROLEMIA, UNSPECIFIED 07/16/2017 Kody CARDOZO MD Ot E86 .0 DEHYDRATION 07/16/2017 Kody CARDOZO MD Ot E87 .2 ACIDOSIS 07/16/2017 Kody CARDOZO MD Ot E87 .8 OTH DISORDERS OF ELECTROLYTE AND FLUID B 07/16/2017 Kody CARDOZO MD Ot F03.90 UNSPECIFIED DEMENTIA WITHOUT BEHAVIORAL 07/16/2017 Kody CARDOZO MD Ot F41 .9 ANXIETY DISORDER, UNSPECIFIED 07/16/2017 Kody CARDOZO MD Ot G31.84 MILD COGNITIVE IMPAIRMENT, SO STATED 07/16/2017 Kody CARDOZO MD Ot 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 07/16/2017 Kody CARDOZO MD Ot I50.21 ACUTE SYSTOLIC (CONGESTIVE) HEART FAILUR 07/16/2017 Kody CARDOZO MD Ot I50.31 ACUTE DIASTOLIC (CONGESTIVE) HEART FAILU 07/16/2017 Kody CARDOZO MD, Ot J44 .9 CHRONIC OBSTRUCTIVE PULMONARY DISEASE, U 07/16/2017 Kody CARDOZO MD Ot K58 .9 IRRITABLE BOWEL SYNDROME WITHOUT DIARRHE 07/16/2017 Kody CARDOZO MD Ot K59.09 OTHER CONSTIPATION 07/16/2017 Kody CARDOZO MD Ot M19.90 UNSPECIFIED OSTEOARTHRITIS, UNSPECIFIED 07/16/2017 Kody CARDOZO MD Ot M54 .9 DORSALGIA, UNSPECIFIED 07/16/2017 Kody CARDOZO MD Ot N18 .3 CHRONIC KIDNEY DISEASE, STAGE 3 (MODERAT 07/16/2017 Kody CARDOZO MD Ot R00 .1 BRADYCARDIA, UNSPECIFIED 07/16/2017 Kody CARDOZO MD Ot [...] HYPERCHOLESTEROLEMIA, UNSPECIFIED 07/17/2017 Kody CARDOZO MD Ot E86 .0 DEHYDRATION 07/17/2017 Kody CARDOZO MD Ot E87 .2 ACIDOSIS 07/17/2017 Kody CARDOZO MD Ot E87 .8 OTH DISORDERS OF ELECTROLYTE AND FLUID B 07/17/2017 Kody CARDOZO MD Ot F03.90 UNSPECIFIED DEMENTIA WITHOUT BEHAVIORAL 07/17/2017 Kody CARDOZO MD Ot F41 .9 ANXIETY DISORDER, UNSPECIFIED 07/17/2017 Kody CARDOZO MD Ot G31.84 MILD COGNITIVE IMPAIRMENT, SO STATED 07/17/2017 Kody CARDOZO MD Ot 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 07/17/2017 Kody CARDOZO MD Ot I50.21 ACUTE SYSTOLIC (CONGESTIVE) HEART FAILUR 07/17/2017 Kody CARDOZO MD Ot I50.31 ACUTE DIASTOLIC (CONGESTIVE) HEART FAILU 07/17/2017 Kody CARDOZO MD Ot J44 .9 CHRONIC OBSTRUCTIVE PULMONARY DISEASE, U 07/17/2017 Kody CARDOZO MD Ot K58 .9 IRRITABLE BOWEL SYNDROME WITHOUT DIARRHE 07/17/2017 Kody ACRDOZO MD Ot K59.09 OTHER CONSTIPATION 07/17/2017 Kody CARDOZO MD Ot M19.90 UNSPECIFIED OSTEOARTHRITIS, UNSPECIFIED 07/17/2017 Kody CARDOZO MD Ot M54 .9 DORSALGIA, UNSPECIFIED 07/17/2017 Kody CARDOZO MD Ot N18 .3 CHRONIC KIDNEY DISEASE, STAGE 3 (MODERAT 07/17/2017 Kody CARDOZO MD Ot R00 .1 BRADYCARDIA, UNSPECIFIED 07/17/2017 Kody CARDOZO MD Ot [...] HYPERCHOLESTEROLEMIA, UNSPECIFIED 07/17/2017 Kody CARDOZO MD Ot E86 .0 DEHYDRATION 07/17/2017 Kody CARDOZO MD Ot E87 .2 ACIDOSIS 07/17/2017 Kody CARDOZO MD Ot E87 .8 OTH DISORDERS OF ELECTROLYTE AND FLUID B 07/17/2017 Kody CARDOZO MD Ot F03.90 UNSPECIFIED DEMENTIA WITHOUT BEHAVIORAL 07/17/2017 Kody CARDOZO MD Ot F41 .9 ANXIETY DISORDER, UNSPECIFIED 07/17/2017 Kody CARDOZO MD Ot G31.84 MILD COGNITIVE IMPAIRMENT, SO STATED 07/17/2017 Kody CARDOZO MD Ot 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 07/17/2017 Kody CARDOZO MD Ot I50.21 ACUTE SYSTOLIC (CONGESTIVE) HEART FAILUR 07/17/2017 Kody CARDOZO MD Ot I50.31 ACUTE DIASTOLIC (CONGESTIVE) HEART FAILU 07/17/2017 Kody CARDOZO MD Ot J44 .9 CHRONIC OBSTRUCTIVE PULMONARY DISEASE, U 07/17/2017 Kody CARDOZO MD Ot K58 .9 IRRITABLE BOWEL SYNDROME WITHOUT DIARRHE 07/17/2017 Kody CARDOZO MD Ot K59.09 OTHER CONSTIPATION 07/17/2017 Kody CARDOZO MD Ot M19.90 UNSPECIFIED OSTEOARTHRITIS, UNSPECIFIED 07/17/2017 Kody CARDOZO MD Ot M54 .9 DORSALGIA, UNSPECIFIED 07/17/2017 Kody CARDOZO MD Ot N18 .3 CHRONIC KIDNEY DISEASE, STAGE 3 (MODERAT 07/17/2017 Kody CARDOZO MD Ot R00 .1 BRADYCARDIA, UNSPECIFIED 07/17/2017 Kody CARDOZO MD Ot R32 UNSPECIFIED URINARY INCONTINENCE 07/17/2017 Kody CARDOZO MD Ot T38.0X5A ADVERSE EFFECT OF GLUCOCORT/SYNTH ANALOG 07/17/2017 Kody CARDOZO MD Ot Z86.010 PERSONAL HISTORY OF COLONIC POLYPS 07/17/2017 Kody CARDOZO MD Ot Z87.11 PERSONAL HISTORY OF PEPTIC ULCER DISEASE 07/17/2017 Kody CARDOZO MD, Ot 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 07/18/2017 Kody CARDOZO MD Ot D72.829 ELEVATED WHITE BLOOD CELL COUNT, UNSPECI 07/18/2017 Kody CARDOZO MD Ot E78.00 PURE HYPERCHOLESTEROLEMIA, UNSPECIFIED 07/18/2017 Kody CARDOZO MD Ot E86 .0 DEHYDRATION 07/18/2017 Kody CARDOZO MD Ot E87 .2 ACIDOSIS 07/18/2017 Kody CARDOZO MD, Ot E87 .8 OTH DISORDERS OF ELECTROLYTE AND FLUID B 07/18/2017 Kody CARDOZO MD Ot F03.90 UNSPECIFIED DEMENTIA WITHOUT BEHAVIORAL 07/18/2017 Kody CARDOZO MD, Ot F41 .9 ANXIETY DISORDER, UNSPECIFIED 07/18/2017 Kody CARDOZO MD Ot G31.84 MILD COGNITIVE IMPAIRMENT, SO STATED 07/18/2017 Kody CARDOZO MD Ot 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 07/18/2017 Kody CARDOZO MD Ot I50.21 ACUTE SYSTOLIC (CONGESTIVE) HEART FAILUR 07/18/2017 Kody CARDOZO MD Ot I50.31 ACUTE DIASTOLIC (CONGESTIVE) HEART FAILU 07/18/2017 Kody CARDOZO MD Ot J44 .9 CHRONIC OBSTRUCTIVE PULMONARY DISEASE, U 07/18/2017 Kody CARDOZO MD Ot K58 .9 IRRITABLE BOWEL SYNDROME WITHOUT DIARRHE 07/18/2017 Kody CARDOZO MD, Ot K59.09 OTHER CONSTIPATION 07/18/2017 Kody CARDOZO MD Ot M19.90 UNSPECIFIED OSTEOARTHRITIS, UNSPECIFIED 07/18/2017 Kody CARDOZO MD, Ot M54 .9 DORSALGIA, UNSPECIFIED 07/18/2017 Kody CARDOZO MD Ot N18 .3 CHRONIC KIDNEY DISEASE, STAGE 3 (MODERAT 07/18/2017 Kody CARDOZO MD Ot R00 .1 BRADYCARDIA, UNSPECIFIED 07/18/2017 Kody CARDOZO MD Ot R32 UNSPECIFIED URINARY INCONTINENCE 07/18/2017 Kody CARDOZO MD, Ot T38.0X5A ADVERSE EFFECT OF GLUCOCORT/SYNTH ANALOG 07/18/2017 Kody CARDOZO MD Ot Z86.010 PERSONAL HISTORY OF COLONIC POLYPS 07/18/2017 Kody CARDOZO MD Ot Z87.11 PERSONAL HISTORY OF PEPTIC ULCER DISEASE 07/18/2017 Kody CARDOZO MD Ot 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 07/18/2017 Kody CARDOZO MD, Ot D72.829 ELEVATED WHITE BLOOD CELL COUNT, UNSPECI 07/18/2017 Kody CARDOZO MD Ot E78.00 PURE HYPERCHOLESTEROLEMIA, UNSPECIFIED 07/18/2017 Kody CARDOZO MD Ot E86 .0 DEHYDRATION 07/18/2017 Kody CARDOZO MD Ot E87 .2 ACIDOSIS 07/18/2017 Kody CARDOZO MD Ot E87 .8 OTH DISORDERS OF ELECTROLYTE AND FLUID B 07/18/2017 Kody CARDOZO MD Ot F03.90 UNSPECIFIED DEMENTIA WITHOUT BEHAVIORAL 07/18/2017 Kody CARDOZO MD Ot F41 .9 ANXIETY DISORDER, UNSPECIFIED 07/18/2017 Kody CARDOZO MD Ot G31.84 MILD COGNITIVE IMPAIRMENT, SO STATED 07/18/2017 Kody CARDOZO MD Ot 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 07/18/2017 Kody CARDOZO MD Ot I49 .5 SICK SINUS SYNDROME 07/18/2017 Kody CARDOZO MD Ot I50.21 ACUTE SYSTOLIC (CONGESTIVE) HEART FAILUR 07/18/2017 Kody CARDOZO MD Ot I50.31 ACUTE DIASTOLIC (CONGESTIVE) HEART FAILU 07/18/2017 Kody CARDOZO MD Ot J44 .9 CHRONIC OBSTRUCTIVE PULMONARY DISEASE, U 07/18/2017 CAS KEATING, Kody CISNEROS Ot K58 .9 IRRITABLE BOWEL SYNDROME WITHOUT DIARRHE 07/18/2017 CAS KEATING, Kody CISNEROS Ot K59.09 OTHER CONSTIPATION 07/18/2017 CAS KEATING, Kody CISNEROS Ot M19.90 UNSPECIFIED OSTEOARTHRITIS, UNSPECIFIED 07/18/2017 CAS KEATING, Kody CISNEROS Ot M54 .9 DORSALGIA, UNSPECIFIED 07/18/2017 CAS KEATING, Kody CISNEROS Ot N18 .3 CHRONIC KIDNEY DISEASE, STAGE 3 (MODERAT 07/18/2017 CAS KEATING, Kody CISNEROS Ot R00 .1 BRADYCARDIA, UNSPECIFIED 07/18/2017 Kody CARDOZO MD Ot R32 UNSPECIFIED URINARY INCONTINENCE 07/18/2017 Kody CARDOZO MD Ot T38.0X5A ADVERSE EFFECT OF GLUCOCORT/SYNTH ANALOG 07/18/2017 Kody CARDOZO MD Ot Z86.010 PERSONAL HISTORY OF COLONIC POLYPS 07/18/2017 Kody CARDOZO MD Ot Z87.11 PERSONAL HISTORY OF PEPTIC ULCER DISEASE 07/18/2017 Kody CARDOZO MD Ot 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 9 IRRITABLE BOWEL SYNDROME WITHOUT DIARRHE 09/27/2017 LIZZY CORDOBA MD Ot R10. 12 LEFT UPPER QUADRANT PAIN 09/27/2017 LIZZY CORDOBA MD Ot R10. 32 LEFT LOWER QUADRANT PAIN 09/27/2017 LIZZY CORDOBA MD Ot Z01.818 ENCOUNTER FOR OTHER PREPROCEDURAL EXAMIN 09/27/2017 LIZZY CORDOBA MD Ot Z86.010 PERSONAL HISTORY OF COLONIC POLYPS 09/27/2017 LOY HUGHES DO Ot Z12.3 1 ENCNTR SCREEN MAMMOGRAM FOR MALIGNANT NE 09/27/2017 ESTEFANIA CLEMENTE MD Ot M48.50XA COLLAPSED VERTEBRA, NEC, SITE UNSP, INIT 09/27/2017 ESTEFANIA CLEMENTE MD Ot M85.88 OTH DISRD OF BONE DENSITY AND STRUCTURE, 09/27/2017 SPIKE NIX MD, Ot E78.00 PURE HYPERCHOLESTEROLEMIA, UNSPECIFIED 09/27/2017 SPIKE NIX MD, Ot F03.90 UNSPECIFIED DEMENTIA WITHOUT BEHAVIORAL 09/27/2017 SPIKE NIX MD, Ot F41.9 ANXIETY DISORDER, UNSPECIFIED 09/27/2017 SPIKE NIX MD, Ot I10 ESSENTIAL (PRIMARY) HYPERTENSION 09/27/2017 SPIKE NIX MD, Ot J44.9 CHRONIC OBSTRUCTIVE PULMONARY DISEASE, U 09/27/2017 SPIKE NIX MD, Ot M25.512 PAIN IN LEFT SHOULDER 09/27/2017 SPIKE NIX MD, Ot N39.0 URINARY TRACT INFECTION, SITE NOT SPECIF 09/27/2017 SPIKE NIX MD, Ot S42.202A UNSP FRACTURE OF UPPER END OF LEFT HUMER 09/27/2017 SPIKE NIX MD, Ot W01.0XXA FALL SAME LEV FROM SLIP/TRIP W/O STRIKE 09/27/2017 SPIKE NIX MD, Ot Y92.[address] IN UNSP NON-INSTITUT (PRIVATE 09/27/2017 SPIKE NIX MD, Ot Z87.19 PERSONAL HISTORY OF OTHER DISEASES OF 09/27/2017 SPIKE NIX MD, Ot Z87.42 PERSONAL [...] OF OTHER SPECIFIED PART 09/27/2017 SPIKE NIX MD Ot Z90.710 ACQUIRED ABSENCE OF BOTH CERVIX AND UTER 09/27/2017 SPIKE NIX MD Ot Z95.0 PRESENCE OF CARDIAC PACEMAKER 09/27/2017 DARCI GEIGER MD Ot H53 .2 DIPLOPIA 09/27/2017 DARCI GEIGER MD Ot R51 HEADACHE 09/27/2017 LIZZY CORDOBA MD Ot K58. 9 IRRITABLE BOWEL SYNDROME WITHOUT DIARRHE 09/27/2017 LIZZY CORDOBA MD Ot R10. 12 LEFT UPPER QUADRANT PAIN 09/27/2017 LIZZY CORDOBA MD Ot R10. 32 LEFT LOWER QUADRANT PAIN 09/27/2017 LIZZY CORDOBA MD, Ot Z01.818 ENCOUNTER FOR OTHER PREPROCEDURAL EXAMIN 09/27/2017 LIZZY CORDOBA MD Ot Z86.010 PERSONAL HISTORY OF COLONIC POLYPS 09/27/2017 ELLEN LEONG LOY Feliberto Ot Z12.3 1 ENCNTR SCREEN MAMMOGRAM FOR MALIGNANT NE 09/27/2017 ESTEFANIA CLEMENTE MD Ot M48.50XA COLLAPSED VERTEBRA, NEC, SITE UNSP, INIT 09/27/2017 ESTEFANIA CLEMENTE MD Ot M85.88 OTH DISRD OF BONE DENSITY AND STRUCTURE, 09/28/2017 SPIKE NIX MD Ot E78.00 PURE HYPERCHOLESTEROLEMIA, UNSPECIFIED 09/28/2017 SPIKE NIX MD Ot F03.90 UNSPECIFIED DEMENTIA WITHOUT BEHAVIORAL 09/28/2017 SPIKE NIX MD Ot F41.9 ANXIETY DISORDER, UNSPECIFIED 09/28/2017 SPIKE NIX MD Ot I10 ESSENTIAL (PRIMARY) HYPERTENSION 09/28/2017 SPIKE NIX MD, Ot J44.9 CHRONIC OBSTRUCTIVE PULMONARY DISEASE, U 09/28/2017 SPIKE NIX MD Ot M25.512 PAIN IN LEFT SHOULDER 09/28/2017 SPIKE NIX MD Ot N39.0 URINARY TRACT INFECTION, SITE NOT SPECIF 09/28/2017 SPIKE NIX MD Ot S42.202A UNSP FRACTURE OF UPPER END OF LEFT HUMER 09/28/2017 SPIKE NIX MD Ot W01.0XXA FALL SAME LEV FROM SLIP/TRIP W/O STRIKE 09/28/2017 SPIKE NIX MD, Ot Y92.[address] [facility] IN [facility] NON-INSTITUT (PRIVATE 09/28/2017 SPIKE INX MD, Ot Z87.19 PERSONAL HISTORY OF OTHER [...] TO OTH DRUG/MEDS/BIOL SUB 09/28/2017 SPIKE NIX MD Ot Z90.49 ACQUIRED ABSENCE OF OTHER SPECIFIED PART 09/28/2017 SPIKE NIX MD, Ot Z90.710 ACQUIRED ABSENCE OF BOTH CERVIX AND UTER 09/28/2017 SPIKE NIX MD Ot Z95.0 PRESENCE OF CARDIAC PACEMAKER 10/12/2017 ALVAREZ CORREIA APRN Ot Z12.31 ENCNTR SCREEN MAMMOGRAM FOR MALIGNANT NE 11/09/2017 ALVAREZ CORREIA APRN Ot Z12.31 ENCNTR SCREEN MAMMOGRAM FOR MALIGNANT NE 11/13/2017 LIZZY CORDOBA MD Ot K58. 9 IRRITABLE BOWEL SYNDROME WITHOUT DIARRHE 11/13/2017 LIZZY CORDOBA MD Ot R10. 12 LEFT UPPER QUADRANT PAIN 11/13/2017 LIZZY CORDOBA MD Ot R10. 32 LEFT LOWER QUADRANT PAIN 11/13/2017 LIZZY CORDOBA MD Ot Z01.818 ENCOUNTER FOR OTHER PREPROCEDURAL EXAMIN 11/13/2017 LIZZY CORDOBA MD Ot Z86.010 PERSONAL HISTORY OF COLONIC POLYPS 11/13/2017 LOY HUGHES DO Ot Z12.3 1 ENCNTR SCREEN MAMMOGRAM FOR MALIGNANT NE 11/13/2017 ESTEFANIA CLEMENTE MD Ot M48.50XA COLLAPSED VERTEBRA, NEC, SITE UNSP, INIT 11/13/2017 ESTEFANIA CLEMENTE MD Ot M85.88 OTH DISRD OF BONE DENSITY AND STRUCTURE, 11/13/2017 SUSIE RAMIREZ MD, Ot D47.3 ESSENTIAL (HEMORRHAGIC) THROMBOCYTHEMIA 11/13/2017 SUSIE RAMIREZ MD Ot D72.829 ELEVATED WHITE BLOOD CELL COUNT, UNSPECI 11/13/2017 SUSIE RAMIREZ MD Ot E88.01 FCPYX-2-OKBTVDKMTQA DEFICIENCY 11/13/2017 SUSIE RAMIREZ MD Ot F41.9 [...] 11/13/2017 SUSIE RAMIREZ MD Ot Z79.899 OTHER [employer] (CURRENT) DRUG THERAPY 11/13/2017 SUSIE RAMIREZ MD Ot Z95.0 PRESENCE OF CARDIAC PACEMAKER 11/16/2017 ALVAREZ CORREIA APRN Ot Z12.31 ENCNTR SCREEN MAMMOGRAM FOR MALIGNANT NE 11/27/2017 SUSIE RAMIREZ MD Ot D47.3 ESSENTIAL (HEMORRHAGIC) THROMBOCYTHEMIA 11/27/2017 SUSIE RAMIREZ MD Ot D72.829 ELEVATED WHITE BLOOD CELL COUNT, UNSPECI 11/27/2017 SUSIE RAMIREZ MD Ot E88.01 AKILP-5-OBXRKNOBSDY DEFICIENCY 11/27/2017 SUSIE RAMIREZ MD Ot F41.9 [...] 11/27/2017 SUSIE RAMIREZ MD Ot Z79.899 OTHER [employer] (CURRENT) DRUG THERAPY 11/27/2017 SUSIE RAMIREZ MD Ot Z95.0 PRESENCE OF CARDIAC PACEMAKER 12/03/2017 ALVAREZ CORREIA BLOCK STACKER Ot Z12.31 ENCNTR SCREEN MAMMOGRAM FOR MALIGNANT NE 12/10/2017 ALVAREZ CORREIA BLOCK STACKER Ot Z12.31 ENCNTR SCREEN MAMMOGRAM FOR MALIGNANT NE 12/14/2017 SUSIE RAMIREZ MD Ot D47.3 ESSENTIAL (HEMORRHAGIC) THROMBOCYTHEMIA 12/14/2017 SUSIE RAMIREZ MD Ot D72.829 ELEVATED WHITE BLOOD CELL COUNT, UNSPECI 12/14/2017 SUSIE RAMIREZ MD Ot E88.01 GHGJF-5-IPIOIVTBLLP DEFICIENCY 12/14/2017 SUSIE RAMIREZ MD Ot F41.9 [...] UNSPECI 12/24/2017 SUSIE RAMIREZ MD Ot E88.01 EWSDG-8-GFHVRFNEVNI DEFICIENCY 12/24/2017 SUSIE RAMIREZ MD Ot F41.9 [...] UNSPECI 12/27/2017 SUSIE RAMIREZ MD Ot E88.01 ORKBP-1-HRJNIIKHFEL DEFICIENCY 12/27/2017 SUSIE RAMIREZ MD Ot F41.9 [...] 12/27/2017 SUSIE RAMIREZ MD Ot Z79.899 OTHER [employer] (CURRENT) DRUG THERAPY 12/27/2017 SUSIE RAMIREZ MD Ot Z95.0 PRESENCE OF CARDIAC PACEMAKER 02/03/2018 CRICKET ARAUJO APRN Ot J45.909 UNSPECIFIED ASTHMA, UNCOMPLICATED 02/03/2018 CRICKET ARAUJO APRN Ot R06.02 SHORTNESS OF BREATH 02/05/2018 SUSIE RAMIREZ MD Ot D47.3 ESSENTIAL (HEMORRHAGIC) THROMBOCYTHEMIA 02/05/2018 SUSIE RAMIREZ MD Ot D72.829 ELEVATED WHITE BLOOD CELL COUNT, UNSPECI 02/05/2018 SUSIE RAMIREZ MD Ot E88.01 BBSES-6-RNJRGAXXHKB DEFICIENCY 02/05/2018 SUSIE RAMIREZ MD Ot F41.9 [...] APRN Ot J45.909 UNSPECIFIED ASTHMA, UNCOMPLICATED 02/05/2018 CRICKET ARAUJO APRN Ot R06.02 SHORTNESS OF BREATH 02/17/2018 Ot E88.01 MYFEC-0-VNFWTQUPICP DEFICIENCY 02/17/2018 Ot F41.9 ANXI ETY DISORDER, UNSPECIFIED 02/17/2018 Ot M19.90 UNS PECIFIED OSTEOARTHRITIS, UNSPECIFIED 02/24/2018 CRICKET ARAUJO APRN Ot J45.909 UNSPECIFIED ASTHMA, UNCOMPLICATED 02/24/2018 CRICKET ARAUJO APRN Ot R06.02 SHORTNESS OF BREATH 02/24/2018 CRICKET ARAUJO APRN Ot J45.909 UNSPECIFIED ASTHMA, UNCOMPLICATED 02/24/2018 CIRCKET ARAUJO APRN Ot R06.02 SHORTNESS OF BREATH 03/02/2018 SUSIE RAMIREZ MD Ot D47.3 ESSENTIAL (HEMORRHAGIC) THROMBOCYTHEMIA 03/02/2018 SUSIE RAMIREZ MD Ot D72.829 ELEVATED WHITE BLOOD CELL COUNT, UNSPECI 03/02/2018 SUSIE RAMIREZ MD Ot E88.01 VPKXR-2-WZFXPJISIXP DEFICIENCY 03/02/2018 SUSIE RAMIREZ MD Ot F41.9 [...] MD Ot D47.3 ESSENTIAL (HEMORRHAGIC) THROMBOCYTHEMIA 03/08/2018 SUSIE RAMIREZ MD Ot D72.829 ELEVATED WHITE BLOOD CELL COUNT, UNSPECI 03/08/2018 SUSIE RAMIREZ MD Ot E88.01 MIBEO-7-BUUJXHLMEYR DEFICIENCY 03/08/2018 SUSIE RAMIREZ MD Ot F41.9 [...] 03/08/2018 SUSIE RAMIREZ MD Ot Z79.899 OTHER [employer]ANG[employer] (CURRENT) DRUG THERAPY 03/08/2018 JAMES KEATING, SUSIE Ot Z95.0 PRESENCE OF CARDIAC PACEMAKER 03/11/2018 Ot E88.01 LYBEI-6-GBUEPQMYXSO DEFICIENCY 03/11/2018 Ot F41.9 ANXI ETY DISORDER, UNSPECIFIED 03/11/2018 Ot M19.90 UNS PECIFIED OSTEOARTHRITIS, UNSPECIFIED 03/17/2018 Ot E88.01 JRFLV-9-MXCUMLNBMHX DEFICIENCY 03/17/2018 Ot F41.9 ANXI ETY DISORDER, UNSPECIFIED 03/17/2018 Ot M19.90 UNS PECIFIED OSTEOARTHRITIS, UNSPECIFIED 03/22/2018 BERYL KEATING, LIZZY Aguilar Ot K58. 9 IRRITABLE BOWEL SYNDROME WITHOUT DIARRHE 03/22/2018 BERYL KEATING, LIZZY Aguilar Ot R10. 12 LEFT UPPER QUADRANT PAIN 03/22/2018 ILZZY CORDOBA MD Ot R10. 32 LEFT LOWER QUADRANT PAIN 03/22/2018 BERYL KEATING, LIZZY Aguilar Ot Z01.818 ENCOUNTER FOR OTHER PREPROCEDURAL EXAMIN 03/22/2018 BERYL KEATING, LIZZY Aguilar Ot Z86.010 PERSONAL HISTORY OF COLONIC POLYPS 03/22/2018 ELLEN LEONG LOY Feliberto Ot Z12.3 1 ENCNTR SCREEN MAMMOGRAM FOR MALIGNANT NE 03/22/2018 BRYN KEATING, ESTEFANIA Dodd Ot M48.50XA COLLAPSED VERTEBRA, NEC, SITE UNSP, INIT 03/22/2018 ESTEFANIA CLEMENTE MD Ot M85.88 OTH DISRD OF BONE DENSITY AND STRUCTURE, 03/22/2018 ALVAREZ CORREIA APRN Ot Z12.31 ENCNTR SCREEN MAMMOGRAM FOR MALIGNANT NE 03/22/2018 CRICKET ARAUJO APRN Ot J45.909 UNSPECIFIED ASTHMA, UNCOMPLICATED 03/22/2018 CRICKET ARAUJO APRN Ot R06.02 SHORTNESS OF BREATH 03/22/2018 Ot E88.01 SLQJJ-4-JOCKHINGIGU DEFICIENCY 03/22/2018 Ot F41.9 ANXI ETY DISORDER, UNSPECIFIED 03/22/2018 Ot M19.90 UNS PECIFIED OSTEOARTHRITIS, UNSPECIFIED 03/22/2018 JAMES KEATING, SUSIE Ot D47.3 ESSENTIAL (HEMORRHAGIC) THROMBOCYTHEMIA 03/22/2018 SUSIE RAMIREZ MD Ot D72.829 ELEVATED WHITE BLOOD CELL COUNT, UNSPECI 03/22/2018 SUSIE RAMIREZ MD Ot E88.01 ZXASJ-6-DGSMICONSOK DEFICIENCY 03/22/2018 SUSIE RAMIREZ MD Ot F41.9 [...] 03/22/2018 SUSIE RAMIREZ MD Ot Z79.899 OTHER [employer] (CURRENT) DRUG THERAPY 03/22/2018 SUSIE RAMIREZ MD Ot Z95.0 PRESENCE OF CARDIAC PACEMAKER 03/23/2018 BRAD HDEZ MD Ot 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, THORACIC REGION 03/23/2018 BRAD HDEZ MD Ot 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 04/06/2018 CRICKET ARAUJO APRN Ot J45.909 UNSPECIFIED ASTHMA, UNCOMPLICATED 04/06/2018 CRICKET ARAUJO APRN Ot R06.02 SHORTNESS OF BREATH 04/16/2018 BRAD HDEZ MD Ot 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, THORACIC REGION 04/16/2018 BRAD HDEZ MD Ot 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 04/16/2018 Kody CARDOZO MD Ot E88.01 LGKXU-4-ZXTCSPJDYVJ DEFICIENCY 04/16/2018 Kody CARDOZO MD Ot R06.02 SHORTNESS OF BREATH 04/22/2018 BRAD HDEZ MD Ot 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 00 PURE HYPERCHOLESTEROLEMIA, UNSPECIFIED 04/28/2018 TRACEE FLETCHER MD Ot E88. 01 YUTSS-5-ICGKFLLZIRE DEFICIENCY 04/28/2018 TRACEE FLETCHER MD Ot F03. 90 UNSPECIFIED DEMENTIA WITHOUT BEHAVIORAL 04/28/2018 TRACEE FLETCHER MD Ot F41. 9 ANXIETY DISORDER, UNSPECIFIED 04/28/2018 TRACEE FLETCHER MD Ot I10 ESSENTIAL (PRIMARY) HYPERTENSION 04/28/2018 TRACEE FLETCHER MD Ot I25. 10 ATHSCL HEART DISEASE OF [place] CORONARY 04/28/2018 TRACEE FLETCHER MD Ot I26. 99 OTHER PULMONARY EMBOLISM WITHOUT ACUTE C 04/28/2018 TRACEE FLETCHER MD Ot J43. 9 EMPHYSEMA, UNSPECIFIED 04/28/2018 TRACEE FLETCHER MD Ot K58. 1 IRRITABLE BOWEL SYNDROME WITH CONSTIPATI 04/28/2018 TRACEE FLETCHER MD Ot M19. 91 PRIMARY OSTEOARTHRITIS, UNSPECIFIED SITE 04/28/2018 TRACEE FLETCHER MD Ot M54. 9 DORSALGIA, UNSPECIFIED 04/28/2018 TRACEE FLETCHER MD Ot Z86.010 PERSONAL HISTORY OF COLONIC POLYPS 04/28/2018 TRACEE FLETCHER MD Ot Z87. 11 PERSONAL HISTORY OF PEPTIC ULCER DISEASE 04/30/2018 MARTA BLAIR APRN Ot E78.00 PURE HYPERCHOLESTEROLEMIA, UNSPECIFIED 04/30/2018 MARTA BLAIR APRN Ot F03.90 UNSPECIFIED DEMENTIA WITHOUT BEHAVIORAL 04/30/2018 MARTA BLAIR APRN Ot F41 .9 ANXIETY DISORDER, UNSPECIFIED 04/30/2018 MARTA BLAIR APRN Ot I10 ESSENTIAL (PRIMARY) HYPERTENSION 04/30/2018 MARTA BLAIR APRN Ot I26.99 OTHER PULMONARY EMBOLISM WITHOUT ACUTE C 04/30/2018 MARTA BLAIR APRN Ot J44 .9 CHRONIC OBSTRUCTIVE PULMONARY DISEASE, U 04/30/2018 MARTA BLAIR APRN Ot M54 .6 PAIN IN THORACIC SPINE 04/30/2018 MARTA BLAIR APRN Ot Z79.01 [employer] (CURRENT) USE OF ANTICOAGULANT 04/30/2018 MARTA BLAIR APRN Ot Z79.51 SNF (CURRENT) USE OF INHALED STERO 04/30/2018 MARTA BLAIR APRN Ot Z86.010 PERSONAL HISTORY OF COLONIC POLYPS 04/30/2018 MARTA BLAIR APRN Ot Z87.19 PERSONAL HISTORY OF OTHER DISEASES OF TH 04/30/2018 MARTA BLAIR APRN Ot Z88 .0 ALLERGY STATUS TO PENICILLIN 04/30/2018 MARTA BALIR APRN Ot Z88 .1 ALLERGY STATUS TO OTHER ANTIBIOTIC AGENT 04/30/2018 MARTA BLAIR APRN Ot Z88 .4 ALLERGY STATUS TO ANESTHETIC AGENT STATU 04/30/2018 MARTA BLAIR APRN Ot Z88 .5 ALLERGY STATUS TO NARCOTIC AGENT STATUS 04/30/2018 MARTA BLAIR APRN Ot Z88 .8 ALLERGY STATUS TO OTH DRUG/MEDS/BIOL SUB 04/30/2018 MARTA BLAIR APRN Ot Z90.710 ACQUIRED ABSENCE OF BOTH CERVIX AND UTER 04/30/2018 MARTA BLAIR APRN Ot Z95 .0 PRESENCE OF CARDIAC PACEMAKER 04/30/2018 MARTA BLAIR APRN Ot Z98.890 OTHER SPECIFIED POSTPROCEDURAL STATES 05/02/2018 CRICKET ARAUJO APRN Ot E88.01 QZHJK-4-HZPOOGOVLFT DEFICIENCY 05/02/2018 CRICKET ARAUJO BLOCK STACKER Ot F41.9 ANXIETY DISORDER, UNSPECIFIED 05/02/2018 CRICKET ARAUJO APRN Ot I26.99 OTHER PULMONARY EMBOLISM WITHOUT ACUTE C 05/02/2018 CRICKET ARAUJO BLOCK STACKER Ot M19.90 UNSPECIFIED OSTEOARTHRITIS, UNSPECIFIED 05/02/2018 CRICKET ARAUJO BLOCK STACKER Ot Z95.5 PRESENCE OF CORONARY ANGIOPLASTY IMPLANT 05/03/2018 MARTA BLAIR APRN Ot E78.00 PURE HYPERCHOLESTEROLEMIA, UNSPECIFIED 05/03/2018 MARTA BLAIR APRN Ot F03.90 UNSPECIFIED DEMENTIA WITHOUT BEHAVIORAL 05/03/2018 MARTA BLAIR APRN Ot F41 .9 ANXIETY DISORDER, UNSPECIFIED 05/03/2018 MARTA BLAIR APRN Ot I10 ESSENTIAL (PRIMARY) HYPERTENSION 05/03/2018 MARTA BLAIR APRN Ot I26.99 OTHER PULMONARY EMBOLISM WITHOUT ACUTE C 05/03/2018 MARTA BLAIR APRN Ot J44 .9 CHRONIC OBSTRUCTIVE PULMONARY DISEASE, U 05/03/2018 MARTA BLAIR APRN Ot M54 .6 PAIN IN THORACIC SPINE 05/03/2018 MARTA BLAIR APRN Ot Z79.01 [employer] (CURRENT) USE OF ANTICOAGULANT 05/03/2018 MARTA BLAIR APRN Ot Z79.51 [employer] (CURRENT) USE OF INHALED STERO 05/03/2018 MARTA BLAIR APRN Ot Z86.010 PERSONAL HISTORY OF COLONIC POLYPS 05/03/2018 MARTA BLAIR APRN Ot Z87.19 PERSONAL HISTORY OF OTHER DISEASES OF TH 05/03/2018 MARTA BLAIR APRN Ot Z88 .0 ALLERGY STATUS TO PENICILLIN 05/03/2018 MARTA BLAIR APRN Ot Z88 .1 ALLERGY STATUS TO OTHER ANTIBIOTIC AGENT 05/03/2018 MARTA BLAIR APRN Ot Z88 .4 ALLERGY STATUS TO ANESTHETIC AGENT STATU 05/03/2018 MARTA BLAIR APRN Ot Z88 .5 ALLERGY STATUS TO NARCOTIC AGENT STATUS 05/03/2018 MARTA BLAIR APRN Ot Z88 .8 ALLERGY STATUS TO OTH DRUG/MEDS/BIOL SUB 05/03/2018 MARTA BLAIR APRN Ot Z90.710 ACQUIRED ABSENCE OF BOTH CERVIX AND UTER 05/03/2018 MARTA BLAIR APRN Ot Z95 .0 PRESENCE OF CARDIAC PACEMAKER 05/03/2018 MARTA BLAIR APRN Ot Z98.890 OTHER SPECIFIED POSTPROCEDURAL STATES 05/10/2018 MARTA BLAIR APRN Ot E78.00 PURE HYPERCHOLESTEROLEMIA, UNSPECIFIED 05/10/2018 MARTA BLAIR APRN Ot F03.90 UNSPECIFIED DEMENTIA WITHOUT BEHAVIORAL 05/10/2018 MARTA BLAIR APRN Ot F41 .9 ANXIETY DISORDER, UNSPECIFIED 05/10/2018 MARTA BLAIR APRN Ot I10 ESSENTIAL (PRIMARY) HYPERTENSION 05/10/2018 MARTA BLAIR APRN Ot I26.99 OTHER PULMONARY EMBOLISM WITHOUT ACUTE C 05/10/2018 MARTA BLAIR APRN Ot J44 .9 CHRONIC OBSTRUCTIVE PULMONARY DISEASE, U 05/10/2018 MARTA BLAIR APRN Ot M54 .6 PAIN IN THORACIC SPINE 05/10/2018 MARTA BLAIR APRN Ot Z79.01 [place] [place] [employer] (CURRENT) USE OF ANTICOAGULANT 05/10/2018 MARTA BLAIR APRN Ot Z79.51 SNF (CURRENT) USE OF INHALED STERO 05/10/2018 MARTA BLAIR APRN Ot Z86.010 PERSONAL HISTORY OF COLONIC POLYPS 05/10/2018 MARTA BLAIR APRN Ot Z87.19 PERSONAL HISTORY OF OTHER DISEASES OF TH 05/10/2018 MARTA BLAIR APRN Ot Z88 .0 ALLERGY STATUS TO PENICILLIN 05/10/2018 MARTA BLAIR APRN Ot Z88 .1 ALLERGY STATUS TO OTHER ANTIBIOTIC AGENT 05/10/2018 MARTA BLAIR APRN Ot Z88 .4 ALLERGY STATUS TO ANESTHETIC AGENT STATU 05/10/2018 MARTA BLAIR APRN Ot Z88 .5 ALLERGY STATUS TO NARCOTIC AGENT STATUS 05/10/2018 MARTA BLAIR APRN Ot Z88 .8 ALLERGY STATUS TO OTH DRUG/MEDS/BIOL SUB 05/10/2018 MARTA BLAIR APRN Ot Z90.710 ACQUIRED ABSENCE OF BOTH CERVIX AND UTER 05/10/2018 MARTA BLAIR APRN Ot Z95 .0 PRESENCE OF CARDIAC PACEMAKER 05/10/2018 MARTA BLAIR APRN Ot Z98.890 OTHER SPECIFIED POSTPROCEDURAL STATES 06/01/2018 DARCI GEIGER MD Ot H53 .2 DIPLOPIA 06/01/2018 DARCI GEIGER MD Ot R51 HEADACHE 06/01/2018 LIZZY CORDOBA MD Ot K58. 9 IRRITABLE BOWEL SYNDROME WITHOUT DIARRHE 06/01/2018 LIZZY CORDOBA MD Ot R10. 12 LEFT UPPER QUADRANT PAIN 06/01/2018 LIZZY CORDOBA MD Ot R10. 32 LEFT LOWER QUADRANT PAIN 06/01/2018 LIZZY CORDOBA MD Ot Z01.818 ENCOUNTER FOR OTHER PREPROCEDURAL EXAMIN 06/01/2018 LIZZY CORDOBA MD Ot Z86.010 PERSONAL HISTORY OF COLONIC POLYPS 06/01/2018 LOY HUGHES DO Ot Z12.3 1 ENCNTR SCREEN MAMMOGRAM FOR MALIGNANT NE 06/01/2018 BRYN KEATING, ESTEFANIA Dodd Ot M48.50XA COLLAPSED VERTEBRA, NEC, SITE UNSP, INIT 06/01/2018 BRYN KEATING, ESTEFANIA Dodd Ot M85.88 OTH DISRD OF BONE DENSITY AND STRUCTURE, 06/01/2018 ALVAREZ CORREIA APRN Ot Z12.31 ENCNTR SCREEN MAMMOGRAM FOR MALIGNANT NE 06/01/2018 CRICKET ARAUJO APRN Ot J45.909 UNSPECIFIED ASTHMA, UNCOMPLICATED 06/01/2018 CRICKET ARAUJO APRN Ot R06.02 SHORTNESS OF BREATH 06/01/2018 Ot E88.01 KVAQE-1-QDHPYRYEKCZ DEFICIENCY 06/01/2018 Ot F41.9 ANXI ETY DISORDER, UNSPECIFIED 06/01/2018 Ot M19.90 UNS PECIFIED OSTEOARTHRITIS, UNSPECIFIED 06/01/2018 SUSIE RAMIREZ MD Ot D47.3 ESSENTIAL (HEMORRHAGIC) THROMBOCYTHEMIA 06/01/2018 SUSIE RAMIREZ MD Ot D72.829 ELEVATED WHITE BLOOD CELL COUNT, UNSPECI 06/01/2018 SUSIE RAMIREZ MD Ot E88.01 FRTLH-0-OFAAEBHTGJM DEFICIENCY 06/01/2018 SUSIE RAMIREZ MD Ot F41.9 ANXIETY DISORDER, UNSPECIFIED 06/01/2018 SUSIE [...] 06/01/2018 SUSIE RAMIREZ MD Ot Z79.899 OTHER SNF (CURRENT) DRUG THERAPY 06/01/2018 SUSIE RAMIREZ MD Ot Z95.0 PRESENCE OF CARDIAC PACEMAKER 06/01/2018 KETTY KEATING, BRAD Aguilar Ot 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, THORACIC REGION 06/01/2018 KETTY KEATING, BRAD Aguilar Ot 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 06/01/2018 CAS KEATING, Kody CISNEROS Ot E88.01 KUKCJ-7-OSRZUTDBOCH DEFICIENCY 06/01/2018 Kody CARDOZO MD Ot R06.02 SHORTNESS OF BREATH 06/01/2018 CRICKET ARAUJO APRN Ot E88.01 TYGDZ-6-CJIZTCTPUYS DEFICIENCY 06/01/2018 CRICKET ARAUJO BLOCK STACKER Ot F41.9 ANXIETY DISORDER, UNSPECIFIED 06/01/2018 CRICKET ARAUJO APRN Ot I26.99 OTHER PULMONARY EMBOLISM WITHOUT ACUTE C 06/01/2018 CRICKET ARAUJO APRN Ot M19.90 UNSPECIFIED OSTEOARTHRITIS, UNSPECIFIED 06/01/2018 CRICKET ARAUJO APRN Ot Z95.5 PRESENCE OF CORONARY ANGIOPLASTY IMPLANT 06/01/2018 MARTA BLAIR APRN Ot E78.00 PURE HYPERCHOLESTEROLEMIA, UNSPECIFIED 06/01/2018 MARTA BLAIR APRN Ot E87 .1 HYPO-OSMOLALITY AND HYPONATREMIA 06/01/2018 MARTA BLAIR APRN Ot F03.90 UNSPECIFIED DEMENTIA WITHOUT BEHAVIORAL 06/01/2018 MARTA BLAIR APRN Ot F41 .9 ANXIETY DISORDER, UNSPECIFIED 06/01/2018 MARTA BLAIR APRN Ot I10 ESSENTIAL (PRIMARY) HYPERTENSION 06/01/2018 MARTA BLAIR APRN Ot J44 .9 CHRONIC OBSTRUCTIVE PULMONARY DISEASE, U 06/01/2018 MARTA BLAIR APRN Ot K21 .9 GASTRO-ESOPHAGEAL REFLUX DISEASE WITHOUT 06/01/2018 MARTA BLAIR [...] INITIAL 06/01/2018 MARTA BLAIR APRN Ot Y92.[address] [facility] [address] IN [facility] NON-INSTITUT (PRIVATE 06/01/2018 MARTA BLAIR APRN Ot Z79.01 SNF (CURRENT) USE OF ANTICOAGULANT 06/01/2018 MARTA BLAIR APRN Ot Z79.51 [place] [place] (CURRENT) USE OF INHALED STERO 06/01/2018 MARTA BLAIR APRN Ot Z79.52 SNF (CURRENT) USE OF SYSTEMIC STER 06/01/2018 MARTA BLAIR APRN Ot Z86.010 PERSONAL HISTORY OF COLONIC POLYPS 06/01/2018 MARTA BLAIR APRN Ot Z86.711 PERSONAL HISTORY OF PULMONARY EMBOLISM 06/01/2018 MARTA BLAIR APRN Ot Z87.19 PERSONAL HISTORY OF OTHER DISEASES OF TH 06/01/2018 MARTA BLAIR APRN Ot Z88 .0 ALLERGY STATUS TO PENICILLIN 06/01/2018 MARTA BLAIR APRN Ot Z88 .1 ALLERGY STATUS TO OTHER ANTIBIOTIC AGENT 06/01/2018 MARTA BLAIR APRN Ot Z88 .4 ALLERGY STATUS TO ANESTHETIC AGENT STATU 06/01/2018 MARTA BLAIR APRN Ot Z88 .5 ALLERGY STATUS TO NARCOTIC AGENT STATUS 06/01/2018 MARTA BLAIR APRN Ot Z88 .8 ALLERGY STATUS TO OTH DRUG/MEDS/BIOL SUB 06/01/2018 MARTA BLAIR APRN Ot Z90.49 ACQUIRED ABSENCE OF OTHER SPECIFIED PART 06/01/2018 MARTA BLAIR APRN Ot Z90.710 ACQUIRED ABSENCE OF BOTH CERVIX AND UTER 06/01/2018 MARTA BLAIR APRN Ot Z95 .0 PRESENCE OF CARDIAC PACEMAKER 06/01/2018 MARTA BLAIR APRN Ot 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 06/04/2018 MARTA BLAIR APRN Ot E78.00 PURE HYPERCHOLESTEROLEMIA, UNSPECIFIED 06/04/2018 MARTA BLAIR APRN Ot E87 .1 HYPO-OSMOLALITY AND HYPONATREMIA 06/04/2018 MARTA BLAIR APRN Ot F03.90 UNSPECIFIED DEMENTIA WITHOUT BEHAVIORAL 06/04/2018 MARTA BLAIR APRN Ot F41 .9 ANXIETY DISORDER, UNSPECIFIED 06/04/2018 MARTA BLAIR APRN Ot I10 ESSENTIAL (PRIMARY) HYPERTENSION 06/04/2018 MARTA BLAIR APRN Ot J44 .9 CHRONIC OBSTRUCTIVE PULMONARY DISEASE, U 06/04/2018 MARTA BLAIR APRN Ot K21 .9 GASTRO-ESOPHAGEAL REFLUX DISEASE WITHOUT 06/04/2018 MARTA BLAIR [...] INITIAL 06/04/2018 MARTA BLAIR APRN Ot Y92.[address] [facility] [address] IN [facility] NON-INSTITUT (PRIVATE 06/04/2018 MARTA BLAIR APRN Ot Z79.01 SNF (CURRENT) USE OF ANTICOAGULANT 06/04/2018 MARTA BLAIR APRN Ot Z79.51 [place] (CURRENT) USE OF INHALED STERO 06/04/2018 MARTA BLAIR APRN Ot Z79.52 [place] (CURRENT) USE OF SYSTEMIC STER 06/04/2018 MRATA BLAIR APRN Ot Z86.010 PERSONAL HISTORY OF COLONIC POLYPS 06/04/2018 MARTA BLAIR APRN Ot Z86.711 PERSONAL HISTORY OF PULMONARY EMBOLISM 06/04/2018 MARTA BLAIR APRN Ot Z87.19 PERSONAL HISTORY OF OTHER DISEASES OF TH 06/04/2018 MARTA BLAIR APRN Ot Z88 .0 ALLERGY STATUS TO PENICILLIN 06/04/2018 MARTA BLAIR APRN Ot Z88 .1 ALLERGY STATUS TO OTHER ANTIBIOTIC AGENT 06/04/2018 MARTA BLAIR APRN Ot Z88 .4 ALLERGY STATUS TO ANESTHETIC AGENT STATU 06/04/2018 MARTA BLAIR APRN Ot Z88 .5 ALLERGY STATUS TO NARCOTIC AGENT STATUS 06/04/2018 MARTA BLAIR APRN Ot Z88 .8 ALLERGY STATUS TO OTH DRUG/MEDS/BIOL SUB 06/04/2018 MARTA BLAIR APRN Ot Z90.49 ACQUIRED ABSENCE OF OTHER SPECIFIED PART 06/04/2018 MARTA BLAIR APRN Ot Z90.710 ACQUIRED ABSENCE OF BOTH CERVIX AND UTER 06/04/2018 MARTA BLAIR APRN Ot Z95 .0 PRESENCE OF CARDIAC PACEMAKER 06/04/2018 MARTA BLAIR APRN Ot 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 06/04/2018 SUSIE RAMIREZ MD Ot D47.3 ESSENTIAL (HEMORRHAGIC) THROMBOCYTHEMIA 06/04/2018 SUSIE RAMIREZ MD Ot D72.829 ELEVATED WHITE BLOOD CELL COUNT, UNSPECI 06/04/2018 SUSIE RAMIREZ MD Ot E88.01 HEDCO-8-GAOKHPJERJR DEFICIENCY 06/04/2018 SUSIE RAMIREZ MD Ot F41.9 [...] Ot Z95.0 PRESENCE OF CARDIAC PACEMAKER 06/16/2018 BERNICE GOODSON Ot N28.1 CYST OF KIDNEY, ACQUIRED 06/28/2018 ALVAREZ CORREIA APRN Ot R92.8 OTH ABN AND INCONCLUSIVE FINDINGS ON DX 06/28/2018 DARCI GEIGER MD Ot H53 .2 DIPLOPIA 06/28/2018 DARCI GEIGER MD Ot R51 HEADACHE 06/28/2018 BERYL KEATING, LIZZY Aguilar Ot K58. 9 IRRITABLE BOWEL SYNDROME WITHOUT DIARRHE 06/28/2018 BERYL KEATING, LIZZY Aguilar Ot R10. 12 LEFT UPPER QUADRANT PAIN 06/28/2018 BERYL KEATING, LIZZY Aguilar Ot R10. 32 LEFT LOWER QUADRANT PAIN 06/28/2018 BERYL KEATING, LIZZY Aguilar Ot Z01.818 ENCOUNTER FOR OTHER PREPROCEDURAL EXAMIN 06/28/2018 BERYL KEATING, LIZZY Aguilar Ot Z86.010 PERSONAL HISTORY OF COLONIC POLYPS 06/28/2018 LOY HUGHES DO Ot Z12.3 1 ENCNTR SCREEN MAMMOGRAM FOR MALIGNANT NE 06/28/2018 BRYN KEATING, ESTEFANIA Dodd Ot M48.50XA COLLAPSED VERTEBRA, NEC, SITE UNSP, INIT 06/28/2018 ESTEFANIA CLEMENTE MD Ot M85.88 OTH DISRD OF BONE DENSITY AND STRUCTURE, 06/28/2018 ALVAREZ CORREIA APRN Ot Z12.31 ENCNTR SCREEN MAMMOGRAM FOR MALIGNANT NE 06/28/2018 CRICKET ARAUJO APRN Ot J45.909 UNSPECIFIED ASTHMA, UNCOMPLICATED 06/28/2018 CRICKET ARAUJO APRN Ot R06.02 SHORTNESS OF BREATH 06/28/2018 Ot E88.01 COHIS-4-KUYRZLXNOSM DEFICIENCY 06/28/2018 Ot F41.9 ANXI ETY DISORDER, UNSPECIFIED 06/28/2018 Ot M19.90 UNS PECIFIED OSTEOARTHRITIS, UNSPECIFIED 06/28/2018 SUSIE RMAIREZ MD Ot D47.3 ESSENTIAL (HEMORRHAGIC) THROMBOCYTHEMIA 06/28/2018 SUSIE RAMIREZ MD Ot D72.829 ELEVATED WHITE BLOOD CELL COUNT, UNSPECI 06/28/2018 SUSIE RAMIREZ MD Ot E88.01 EUOVY-3-ZCJBOQOIMAZ DEFICIENCY 06/28/2018 SUSIE RAMIREZ MD Ot F41.9 [...] Ot Z95.0 PRESENCE OF CARDIAC PACEMAKER 06/28/2018 BRAD HDEZ MD Ot 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, THORACIC REGION 06/28/2018 BRAD HDEZ MD Ot 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 06/28/2018 Kody CARDOZO MD Ot E88.01 DPAFS-5-PYSMDJQXXEE DEFICIENCY 06/28/2018 Kody CARDOZO MD Ot R06.02 SHORTNESS OF BREATH 06/28/2018 CRICKET ARAUJO APRN Ot E88.01 TAYHU-2-YHXCZYHTCOM DEFICIENCY 06/28/2018 CRICKET ARAUJO APRN Ot F41.9 ANXIETY DISORDER, UNSPECIFIED 06/28/2018 CRICKET ARAUJO APRN Ot I26.99 OTHER PULMONARY EMBOLISM WITHOUT ACUTE C 06/28/2018 CRICKET ARAUJO APRN Ot M19.90 UNSPECIFIED OSTEOARTHRITIS, UNSPECIFIED 06/28/2018 CRICKET ARAUJO APRN Ot Z95.5 PRESENCE OF CORONARY ANGIOPLASTY IMPLANT 06/28/2018 BERNICE GOODSON Ot N28.1 CYST OF KIDNEY, ACQUIRED 06/28/2018 ALVAREZ CORREIA APRN Ot R92.8 OTH ABN AND INCONCLUSIVE FINDINGS ON DX 07/12/2018 BERNICE GOODSON Ot N28.1 CYST OF KIDNEY, ACQUIRED 07/12/2018 ALVAREZ CORREIA APRN Ot Z 09 ENCNTR FOR F/U EXAM AFT TRTMT FOR COND O 07/15/2018 SUSIE RAMIREZ MD Ot D47.3 ESSENTIAL (HEMORRHAGIC) THROMBOCYTHEMIA 07/15/2018 SUSIE RAMIREZ MD Ot D72.829 ELEVATED WHITE BLOOD CELL COUNT, UNSPECI 07/15/2018 SUSIE RAMIREZ MD Ot E88.01 VMJTN-2-XSFPVRUKAND DEFICIENCY 07/15/2018 SUSIE RAMIREZ MD Ot F41.9 ANXIETY DISORDER, UNSPECIFIED 07/15/2018 CHARITO RAMIREZ MDNER Ot I10 ESSENTIAL (PRIMARY) HYPERTENSION 07/15/2018 SUSIE RAMIREZ MD Ot J44.9 CHRONIC OBSTRUCTIVE PULMONARY DISEASE, U 07/15/2018 SUSIE RAMIREZ MD Ot J45.909 UNSPECIFIED ASTHMA, UNCOMPLICATED 07/15/2018 SUSIE RAMIREZ MD Ot M17.0 BILATERAL PRIMARY OSTEOARTHRITIS OF KNEE 07/15/2018 SUSIE RAMIREZ MD Ot R06.02 SHORTNESS OF BREATH 07/15/2018 SUSIE RAMIREZ MD Ot R07.9 CHEST PAIN, UNSPECIFIED 07/15/2018 CHARITO RAMIREZ MDNER Ot R19.7 DIARRHEA, UNSPECIFIED 07/15/2018 CHARITO RAMIREZ MDNER Ot Z79.899 OTHER SNF (CURRENT) DRUG THERAPY 07/15/2018 CHARITO RAMIREZ MDNER Ot Z95.0 PRESENCE OF CARDIAC PACEMAKER 07/16/2018 CHARITO RAMIREZ MDNER Ot D47.3 ESSENTIAL (HEMORRHAGIC) THROMBOCYTHEMIA 07/16/2018 CHARITO RAMIREZ MDNER Ot D72.829 ELEVATED WHITE BLOOD CELL COUNT, UNSPECI 07/16/2018 SUSIE RAMIREZ MD Ot E88.01 XKOIO-4-[id number] DEFICIENCY 07/16/2018 SUSIE RAMIREZ MD Ot F41.9 ANXIETY DISORDER, UNSPECIFIED 07/16/2018 SUSIE ARMIREZ MD Ot I10 ESSENTIAL (PRIMARY) HYPERTENSION 07/16/2018 [...] RAMIREZ MD Ot R19.7 DIARRHEA, UNSPECIFIED 07/16/2018 CHARITO RAMIREZ MDNER Ot Z79.899 OTHER SNF (CURRENT) DRUG THERAPY 07/16/2018 CHARITO RAMIREZ MDNER Ot Z95.0 PRESENCE OF CARDIAC PACEMAKER 07/19/2018 SUSIE RAMIREZ MD Ot D47.3 ESSENTIAL (HEMORRHAGIC) THROMBOCYTHEMIA 07/19/2018 SUSIE RAMIREZ MD Ot D72.829 ELEVATED WHITE BLOOD CELL COUNT, UNSPECI 07/19/2018 SUSIE RAMIREZ MD Ot E88.01 [id number] DEFICIENCY 07/19/2018 SUSIE RAMIREZ MD Ot F41.9 [...] 07/19/2018 SUSIE RAMIREZ MD Ot Z79.899 OTHER N[employer]ER (CURRENT) DRUG THERAPY 07/19/2018 SUSIE RAMIREZ MD Ot Z95.0 PRESENCE OF CARDIAC PACEMAKER 07/19/2018 BERNICE GOODSON Ot N28.1 CYST OF KIDNEY, ACQUIRED 07/21/2018 SUSIE RAMIREZ MD Ot D47.3 ESSENTIAL (HEMORRHAGIC) THROMBOCYTHEMIA 07/21/2018 SUSIE RAMIREZ MD Ot D72.829 ELEVATED WHITE BLOOD CELL COUNT, UNSPECI 07/21/2018 SUSIE RAMIREZ MD Ot E88.01 [id number] DEFICIENCY 07/21/2018 SUSIE RAMIREZ MD Ot F41.9 ANXIETY DISORDER, UNSPECIFIED 07/21/2018 SUSIE RAMIREZ MD Ot I10 ESSENTIAL (PRIMARY) HYPERTENSION 07/21/2018 SUSIE RAMIREZ MD Ot J44.9 CHRONIC OBSTRUCTIVE PULMONARY DISEASE, U 07/21/2018 SUSIE RAMIREZ MD Ot J45.909 UNSPECIFIED ASTHMA, UNCOMPLICATED 07/21/2018 SUSIE RAMIREZ MD Ot M17.0 BILATERAL PRIMARY OSTEOARTHRITIS OF KNEE 07/21/2018 SUSIE RAMIREZ MD Ot R06.02 SHORTNESS OF BREATH 07/21/2018 SUSIE RAMIREZ MD Ot R07.9 CHEST PAIN, UNSPECIFIED 07/21/2018 SUSIE RAMIREZ MD Ot R19.7 DIARRHEA, UNSPECIFIED 07/21/2018 SUSIE RAMIREZ MD Ot Z79.899 OTHER SNF (CURRENT) DRUG THERAPY 07/21/2018 JAMES KEATING, SUSIE Ot Z95.0 PRESENCE OF CARDIAC PACEMAKER 08/11/2018 [facility] ODILIA Oliva Ot E78.00 PURE HYPERCHOLESTEROLEMIA, UNSPECIFIED 08/11/2018 [facility] ODILIA K Ot F03.90 UNSPECIFIED DEMENTIA WITHOUT BEHAVIORAL 08/11/2018 [facility] ODILIA K Ot F41.9 ANXIETY DISORDER, UNSPECIFIED 08/11/2018 [facility] ODILIA Oliva Ot I10 ESSENTIAL (PRIMARY) HYPERTENSION 08/11/2018 [facility] ODILIA Oliva Ot J44.9 CHRONIC OBSTRUCTIVE PULMONARY DISEASE, U 08/11/2018 JAYA ODILIA K Ot K58.9 IRRITABLE BOWEL SYNDROME WITHOUT DIARRHE 08/11/2018 JAYA ODILIA K Ot R40.214 2 COMA SCALE, EYES OPEN, SPONTANEOUS, EMR 08/11/2018 JAYA ODILIA Oliva Ot R40.225 2 COMA SCALE, BEST VERBAL RESPONSE, ORIENT 08/11/2018 JAYA ODILIA K Ot R40.236 2 COMA SCALE, BEST MOTOR RESPONSE, OBEYS C 08/11/2018 JAYA ODILIA Ot R51 HEADACHE 08/11/2018 JAYA ODILIA Oliva Ot S06.0X0 A CONCUSSION WITHOUT LOSS OF CONSCIOUSNESS 08/11/2018 JAYA ODILIA LEONG Ot S80.01X A CONTUSION OF RIGHT KNEE, INITIAL ENCOUNT 08/11/2018 JAYA ODILIA K Ot S80.02X A CONTUSION OF LEFT KNEE, INITIAL ENCOUNTE 08/11/2018 JAYA ODILIA LEONG Ot W01.190 A FALL SAME LEV FROM SLIP/TRIP W STRIKE AG 08/11/2018 JAYA ODILIA LEONG Ot Z79.01 SNF (CURRENT) USE OF ANTICOAGULANT 08/11/2018 [place] DO Ot Z79.51 N[employer]ER (CURRENT) USE OF INHALED STERO 08/11/2018 JAYA ODILIA LEONG Ot Z86.010 PERSONAL HISTORY OF COLONIC POLYPS 08/11/2018 JAYA ODILIA LEONG Ot Z86.711 PERSONAL HISTORY OF PULMONARY EMBOLISM 08/11/2018 ODILIA [place] DO Ot Z87.09 PERSONAL HISTORY OF OTHER DISEASES OF TH 08/11/2018 JAYAODILIA White DO Ot Z87.19 PERSONAL HISTORY OF OTHER DISEASES OF TH 08/11/2018 ODILIA [place] DO Ot Z88.0 ALLERGY STATUS TO PENICILLIN 08/11/2018 JAYA ODILIA Baptiste Ot Z88.1 ALLERGY STATUS TO OTHER ANTIBIOTIC AGENT 08/11/2018 JAYA ODILIA Baptiste Ot Z88.4 ALLERGY STATUS TO ANESTHETIC AGENT STATU 08/11/2018 JAYA LEONG ODILIA Baptiste Ot Z88.5 ALLERGY STATUS TO NARCOTIC AGENT STATUS 08/11/2018 JAYA ODILIA Baptiste Ot Z88.8 ALLERGY STATUS TO OTH DRUG/MEDS/BIOL SUB 08/11/2018 JAYA ODILIA Baptiste Ot Z90.49 ACQUIRED ABSENCE OF OTHER SPECIFIED PART 08/11/2018 JAYA ODILIA Baptiste Ot Z90.710 ACQUIRED ABSENCE OF BOTH CERVIX AND UTER 08/11/2018 JAYA ODILIA Oliva Ot Z90.89 ACQUIRED ABSENCE OF OTHER ORGANS 08/11/2018 JAYA ODILIA Baptiste Ot Z95.0 PRESENCE OF CARDIAC PACEMAKER 08/11/2018 JAYA ZACKARYA Oliva Ot 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 08/11/2018 [facility] ODILIA Baptiste Ot Z98.890 OTHER SPECIFIED POSTPROCEDURAL STATES 08/12/2018 BERNICE GOODSON Ot D72.829 ELEVATED WHITE BLOOD CELL COUNT, UNSPECI 08/12/2018 BERNICE GOODSON Ot E78.00 PURE HYPERCHOLESTEROLEMIA, UNSPECIFIED 08/12/2018 BERNICE GOODSON Ot E87.1 HYPO-OSMOLALITY AND HYPONATREMIA 08/12/2018 BERNICE GOODSON Ot E87.6 HYPOKALEMIA 08/12/2018 BERNICE GOODSON Ot F03.90 UNSPECIFIED DEMENTIA WITHOUT BEHAVIORAL 08/12/2018 BERNICE GOODSON Ot F41.9 ANXIETY DISORDER, UNSPECIFIED 08/12/2018 BERNICE GOODSON Ot I 10 ESSENTIAL (PRIMARY) HYPERTENSION 08/12/2018 BERNICE GOODSON Ot I95.9 HYPOTENSION, UNSPECIFIED 08/12/2018 BERNICE GOODSON Ot J44.9 CHRONIC OBSTRUCTIVE PULMONARY DISEASE, U 08/12/2018 BERNICE GOODSON Ot W19.XXXA UNSPECIFIED FALL, INITIAL ENCOUNTER 08/12/2018 BERNICE GOODSON Ot Z79.01 SNF (CURRENT) USE OF ANTICOAGULANT 08/12/2018 BERNICE GOODSON Ot Z79.51 [employer] (CURRENT) USE OF INHALED STERO 08/12/2018 BERNICE GOODSON Ot Z86.010 PERSONAL HISTORY OF COLONIC POLYPS 08/12/2018 BERNICE GOODSON Ot Z86.711 PERSONAL HISTORY OF PULMONARY EMBOLISM 08/12/2018 BERNICE GOODSON Ot Z87.19 PERSONAL HISTORY OF OTHER DISEASES OF TH 08/12/2018 BERNICE GOODSON Ot Z87.448 PERSONAL HISTORY OF OTHER DISEASES OF UR 08/12/2018 BERNICE GOODSON Ot Z88.0 ALLERGY STATUS TO PENICILLIN 08/12/2018 BERNICE GOODSON Ot Z88.1 ALLERGY STATUS TO OTHER ANTIBIOTIC AGENT 08/12/2018 BERNICE GOODSON Ot Z88.4 ALLERGY STATUS TO ANESTHETIC AGENT STATU 08/12/2018 BERNICE GOODSON Ot Z88.5 ALLERGY STATUS TO NARCOTIC AGENT STATUS 08/12/2018 BERNICE GOODSON Ot Z88.8 ALLERGY STATUS TO OTH DRUG/MEDS/BIOL SUB 08/12/2018 BERNICE GOODSON Ot Z90.49 ACQUIRED ABSENCE OF OTHER SPECIFIED PART 08/12/2018 BERNICE GOODSON Ot Z90.710 ACQUIRED ABSENCE OF BOTH CERVIX AND UTER 08/12/2018 BERNICE GOODSON Ot Z95.0 PRESENCE OF CARDIAC PACEMAKER 08/12/2018 BERNICE GOODSON Ot Z98.890 OTHER SPECIFIED POSTPROCEDURAL STATES 08/13/2018 ODILIA LAKE DO Ot E78.00 PURE HYPERCHOLESTEROLEMIA, UNSPECIFIED 08/13/2018 JAYA LEONG ODILIA K Ot F03.90 UNSPECIFIED DEMENTIA WITHOUT BEHAVIORAL 08/13/2018 ODILIA LAKE DO Ot F41.9 ANXIETY DISORDER, UNSPECIFIED 08/13/2018 ZACKARY LAKE DOA K Ot I10 ESSENTIAL (PRIMARY) HYPERTENSION 08/13/2018 ODILIA LAKE DO K Ot J44.9 CHRONIC OBSTRUCTIVE PULMONARY DISEASE, U 08/13/2018 ODILIA LAKE DO Ot K58.9 IRRITABLE BOWEL SYNDROME WITHOUT DIARRHE 08/13/2018 ZACKARY LAKE DOA K Ot R40.214 2 COMA SCALE, EYES OPEN, SPONTANEOUS, EMR 08/13/2018 ODILIA LAKE DO Oliva Ot R40.225 2 COMA SCALE, BEST VERBAL RESPONSE, ORIENT 08/13/2018 JAYA ODILIA LEONG Oliva Ot R40.236 2 COMA SCALE, BEST MOTOR RESPONSE, OBEYS C 08/13/2018 JAYA ZACKARYA Oliva Ot R51 HEADACHE 08/13/2018 JAYA ZACKARYA Oliva Ot S06.0X0 A CONCUSSION WITHOUT LOSS OF CONSCIOUSNESS 08/13/2018 MCDONOUGH ODILIA Ot S80.01X A CONTUSION OF RIGHT KNEE, INITIAL ENCOUNT 08/13/2018 JAYA ZACKARYA Oliva Ot S80.02X A CONTUSION OF LEFT KNEE, INITIAL ENCOUNTE 08/13/2018 JAYA ODILIA Ot W01.190 A FALL SAME LEV FROM SLIP/TRIP W STRIKE AG 08/13/2018 JAYA ODILIA Ot Z79.01 [employer] (CURRENT) USE OF ANTICOAGULANT 08/13/2018 JAYA ODILIA LEONG Ot Z79.51 SNF (CURRENT) USE OF INHALED STERO [facility]010 PERSONAL HISTORY OF COLONIC POLYPS 08/13/2018 JAYA ODILIA LEONG Ot Z86.711 PERSONAL HISTORY OF PULMONARY EMBOLISM 08/13/2018 JAYA DOODILIA Ot Z87.09 PERSONAL HISTORY OF OTHER DISEASES OF 08/13/2018 JAYA ODILIA Ot Z87.19 PERSONAL HISTORY OF OTHER DISEASES OF 08/13/2018 JAYA ODILIA LEONG Ot Z88.0 ALLERGY STATUS TO PENICILLIN 08/13/2018 JAYA DOODILIA Ot Z88.1 ALLERGY STATUS TO OTHER ANTIBIOTIC AGENT 08/13/2018 JAYA ODILIA LEONG Ot Z88.4 ALLERGY STATUS TO ANESTHETIC AGENT STATU 08/13/2018 JAYA ODILIA LEONG Ot Z88.5 ALLERGY STATUS TO NARCOTIC AGENT STATUS 08/13/2018 JAYA ODILIA LEONG Ot Z88.8 ALLERGY STATUS TO OTH DRUG/MEDS/BIOL SUB 08/13/2018 JAYA ODILIA LEONG Ot Z90.49 ACQUIRED ABSENCE OF OTHER SPECIFIED PART 08/13/2018 JYAA ODILIA LEONG Ot Z90.710 ACQUIRED ABSENCE OF BOTH CERVIX AND UTER 08/13/2018 JAYA ODILIA LEONG Ot Z90.89 ACQUIRED ABSENCE OF OTHER ORGANS 08/13/2018 ODILIA LAKE DO Ot Z95.0 PRESENCE OF CARDIAC PACEMAKER 08/13/2018 JAYA ODILIA LEONG Ot 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 08/13/2018 ODILIA LAKE DO Ot Z98.890 OTHER SPECIFIED POSTPROCEDURAL STATES 08/16/2018 BERNICE GOODSON Ot D72.829 ELEVATED WHITE BLOOD CELL COUNT, UNSPECI 08/16/2018 BERNICE GOODSON Ot E78.00 PURE HYPERCHOLESTEROLEMIA, UNSPECIFIED 08/16/2018 BERNICE GOODSON Ot E87.1 HYPO-OSMOLALITY AND HYPONATREMIA 08/16/2018 BERNICE GOODSON Ot E87.6 HYPOKALEMIA 08/16/2018 BERNICE GOODSON Ot F03.90 UNSPECIFIED DEMENTIA WITHOUT BEHAVIORAL 08/16/2018 BERNICE GOODSON Ot F41.9 ANXIETY DISORDER, UNSPECIFIED 08/16/2018 BERNICE GOODSON Ot I 10 ESSENTIAL (PRIMARY) HYPERTENSION 08/16/2018 BERNICE GOODSON Ot I95.9 HYPOTENSION, UNSPECIFIED 08/16/2018 BERNICE OGODSON Ot J44.9 CHRONIC OBSTRUCTIVE PULMONARY DISEASE, U 08/16/2018 BERNICE GOODSON Ot W19.XXXA UNSPECIFIED FALL, INITIAL ENCOUNTER 08/16/2018 BERNICE GOODSON Ot Z79.01 [employer] (CURRENT) USE OF ANTICOAGULANT 08/16/2018 BERNICE GOODSON Ot Z79.51 SNF (CURRENT) USE OF INHALED STERO 08/16/2018 BERNICE GOODSON Ot Z86.010 PERSONAL HISTORY OF COLONIC POLYPS 08/16/2018 BERNICE GOODSON Ot Z86.711 PERSONAL HISTORY OF PULMONARY EMBOLISM 08/16/2018 BERNICE GOODSON Ot Z87.19 PERSONAL HISTORY OF OTHER DISEASES OF TH 08/16/2018 BERNICE GOODSON Ot Z87.448 PERSONAL HISTORY OF OTHER DISEASES OF UR 08/16/2018 BERNICE GOODSON Ot Z88.0 ALLERGY STATUS TO PENICILLIN 08/16/2018 MARLYN PA, BERNICE L Ot Z88.1 ALLERGY STATUS TO OTHER ANTIBIOTIC AGENT 08/16/2018 BERNICE GOODSON Ot Z88.4 ALLERGY STATUS TO ANESTHETIC AGENT STATU 08/16/2018 BERNICE GOODSON Ot Z88.5 ALLERGY STATUS TO NARCOTIC AGENT STATUS 08/16/2018 BERNICE GOODSON Ot Z88.8 ALLERGY STATUS TO OTH DRUG/MEDS/BIOL SUB 08/16/2018 BERNICE GOODSON Ot Z90.49 ACQUIRED ABSENCE OF OTHER SPECIFIED PART 08/16/2018 BERNICE GOODSON Ot Z90.710 ACQUIRED ABSENCE OF BOTH CERVIX AND UTER 08/16/2018 BERNICE GOODSON Ot Z95.0 PRESENCE OF CARDIAC PACEMAKER 08/16/2018 BERNICE GOODSON Ot Z98.890 OTHER SPECIFIED POSTPROCEDURAL STATES 08/27/2018 SUSIE RAMIREZ MD Ot D47.3 ESSENTIAL (HEMORRHAGIC) THROMBOCYTHEMIA 08/27/2018 SUSIE RAMIREZ MD Ot D72.829 ELEVATED WHITE BLOOD CELL COUNT, UNSPECI 08/27/2018 SUSIE RAMIREZ MD Ot E88.01 XPDBC-3-ZRWHUJNEKNJ DEFICIENCY 08/27/2018 SUSIE RAMIREZ MD Ot F41.9 ANXIETY DISORDER, UNSPECIFIED 08/27/2018 SUSIE RAMIREZ MD Ot I10 ESSENTIAL (PRIMARY) HYPERTENSION 08/27/2018 SUSIE RAMIREZ MD Ot J44.9 CHRONIC OBSTRUCTIVE PULMONARY DISEASE, U 08/27/2018 SUSIE RAMIREZ MD Ot J45.909 UNSPECIFIED ASTHMA, UNCOMPLICATED 08/27/2018 SUSIE RAMIREZ MD Ot M17.0 BILATERAL PRIMARY OSTEOARTHRITIS OF KNEE 08/27/2018 SUSIE RAMIREZ MD Ot R06.02 SHORTNESS OF BREATH 08/27/2018 SUSIE RAMIREZ MD Ot R07.9 CHEST PAIN, UNSPECIFIED 08/27/2018 SUSIE RAMIREZ MD Ot R19.7 DIARRHEA, UNSPECIFIED 08/27/2018 SUSIE RAMIREZ MD Ot Z79.899 OTHER SNF (CURRENT) DRUG THERAPY 08/27/2018 SUSIE RAMIREZ MD Ot Z95.0 PRESENCE OF CARDIAC PACEMAKER 08/30/2018 MELANIA WINSLOW MD Ot D72.829 ELEVATED WHITE BLOOD CELL COUNT, UNSPECI 08/30/2018 MELANIA WINSLOW MD Ot E78. 00 PURE HYPERCHOLESTEROLEMIA, UNSPECIFIED 08/30/2018 MELANIA WINSLOW MD Ot E83. 42 HYPOMAGNESEMIA 08/30/2018 MELANIA WINSLOW MD Ot E86. 0 DEHYDRATION 08/30/2018 MELANIA WINSLOW MD Ot E87. 1 HYPO-OSMOLALITY AND HYPONATREMIA 08/30/2018 MELANIA WINSLOW MD Ot F03. 90 UNSPECIFIED DEMENTIA WITHOUT BEHAVIORAL 08/30/2018 MELANIA WINSLOW MD Ot F41. 9 ANXIETY DISORDER, UNSPECIFIED 08/30/2018 MELANIA WINSLOW MD Ot I10 ESSENTIAL (PRIMARY) HYPERTENSION 08/30/2018 MELANIA WINSLOW MD Ot I95. 89 OTHER HYPOTENSION 08/30/2018 MELANIA WINSLOW MD Ot J44. 9 CHRONIC OBSTRUCTIVE PULMONARY DISEASE, U 08/30/2018 MELANIA WINSLOW MD Ot R00. 0 TACHYCARDIA, UNSPECIFIED 08/30/2018 MELANIA WINSLOW MD Ot R07. 89 OTHER CHEST PAIN 08/30/2018 MELANIA WINSLOW MD Ot R07. 9 CHEST PAIN, UNSPECIFIED 08/30/2018 MELANIA WINSLOW MD Ot Z79. 51 SNF (CURRENT) USE OF INHALED STERO 08/30/2018 MELANIA WINSLOW MD Ot Z86.010 PERSONAL HISTORY OF COLONIC POLYPS 08/30/2018 MELANIA WINSLOW MD Ot Z86.711 PERSONAL HISTORY OF PULMONARY EMBOLISM 08/30/2018 MELANIA WINSLOW MD Ot Z88. 0 ALLERGY STATUS TO PENICILLIN 08/30/2018 MELANIA WINSLOW MD Ot Z88. 1 ALLERGY STATUS TO OTHER ANTIBIOTIC AGENT 08/30/2018 MELANIA WINSLOW MD Ot Z88. 4 ALLERGY STATUS TO ANESTHETIC AGENT STATU 08/30/2018 MELANIA WINSLOW MD Ot Z88. 5 ALLERGY STATUS TO NARCOTIC AGENT STATUS 08/30/2018 MELANIA WINSLOW MD Ot Z88. 8 ALLERGY STATUS TO OTH DRUG/MEDS/BIOL SUB 08/30/2018 MELANIA WINSLOW MD Ot Z90. 49 ACQUIRED ABSENCE OF OTHER SPECIFIED PART 08/30/2018 MELANIA WINSLOW MD Ot Z90.710 ACQUIRED ABSENCE OF BOTH CERVIX AND UTER 08/30/2018 MELANIA WINSLOW MD Ot Z95. 0 PRESENCE OF CARDIAC PACEMAKER 08/30/2018 MELANIA WINSLOW MD Ot Z95. 5 PRESENCE OF CORONARY ANGIOPLASTY IMPLANT 08/30/2018 MELANIA WINSLOW MD Ot Z98.890 OTHER SPECIFIED POSTPROCEDURAL STATES 08/30/2018 MELANIA WINSLOW MD Ot Z99. 81 DEPENDENCE ON SUPPLEMENTAL OXYGEN 08/31/2018 BERYL KEATING, LIZZY Aguilar Ot Z01.818 ENCOUNTER FOR OTHER PREPROCEDURAL EXAMIN 09/01/2018 MELANIA WINSLOW MD Ot D72.829 ELEVATED WHITE BLOOD CELL COUNT, UNSPECI 09/01/2018 MELANIA WINSLOW MD Ot E78. 00 PURE HYPERCHOLESTEROLEMIA, UNSPECIFIED 09/01/2018 MELANIA WINSLOW MD Ot E83. 42 HYPOMAGNESEMIA 09/01/2018 MELANIA WINSLOW MD Ot E86. 0 DEHYDRATION 09/01/2018 MELANIA WINSLOW MD Ot E87. 1 HYPO-OSMOLALITY AND HYPONATREMIA 09/01/2018 MELANIA WINSLOW MD Ot F03. 90 UNSPECIFIED DEMENTIA WITHOUT BEHAVIORAL 09/01/2018 MELANIA WINSLOW MD Ot F41. 9 ANXIETY DISORDER, UNSPECIFIED 09/01/2018 MELANIA WINSLOW MD Ot I10 ESSENTIAL (PRIMARY) HYPERTENSION 09/01/2018 MELANIA WINSLOW MD Ot I95. 89 OTHER HYPOTENSION 09/01/2018 MELANIA WINSLOW MD Ot J44. 9 CHRONIC OBSTRUCTIVE PULMONARY DISEASE, U 09/01/2018 MELANIA WINSLOW MD Ot R00. 0 TACHYCARDIA, UNSPECIFIED 09/01/2018 MELANIA WINSLOW MD Ot R07. 89 OTHER CHEST PAIN 09/01/2018 MELANIA WINSLOW MD Ot R07. 9 CHEST PAIN, UNSPECIFIED 09/01/2018 MELANIA WINSLOW MD Ot Z79. 51 SNF (CURRENT) USE OF INHALED STERO 09/01/2018 MELANIA WINSLOW MD Ot Z86.010 PERSONAL HISTORY OF COLONIC POLYPS 09/01/2018 MELANIA WINSLOW MD Ot Z86.711 PERSONAL HISTORY OF PULMONARY EMBOLISM 09/01/2018 MELANIA WINSLOW MD Ot Z88. 0 ALLERGY STATUS TO PENICILLIN 09/01/2018 MELANIA WINSLOW MD Ot Z88. 1 ALLERGY STATUS TO OTHER ANTIBIOTIC AGENT 09/01/2018 MELANIA WINSLOW MD Ot Z88. 4 ALLERGY STATUS TO ANESTHETIC AGENT STATU 09/01/2018 MELANIA WINSLOW MD Ot Z88. 5 ALLERGY STATUS TO NARCOTIC AGENT STATUS 09/01/2018 MELANIA WINSLOW MD Ot Z88. 8 ALLERGY STATUS TO OTH DRUG/MEDS/BIOL SUB 09/01/2018 MELANIA WINSLOW MD Ot Z90. 49 ACQUIRED ABSENCE OF OTHER SPECIFIED PART 09/01/2018 MELANIA WINSLOW MD Ot Z90.710 ACQUIRED ABSENCE OF BOTH CERVIX AND UTER 09/01/2018 MELANIA WINSLOW MD Ot Z95. 0 PRESENCE OF CARDIAC PACEMAKER 09/01/2018 MELANIA WINSLOW MD Ot Z95. 5 PRESENCE OF CORONARY ANGIOPLASTY IMPLANT 09/01/2018 MELANIA WINSLOW MD Ot Z98.890 OTHER SPECIFIED POSTPROCEDURAL STATES 09/01/2018 MELANIA WINSLOW MD Ot Z99. 81 DEPENDENCE ON SUPPLEMENTAL OXYGEN 09/01/2018 SUSIE RAMIREZ MD Ot D47.3 ESSENTIAL (HEMORRHAGIC) THROMBOCYTHEMIA 09/01/2018 SUSIE RAMIREZ MD Ot D72.829 ELEVATED WHITE BLOOD CELL COUNT, UNSPECI 09/01/2018 SUSIE RAMIREZ MD Ot E88.01 FJYAN-4-GQIIPWVLRSA DEFICIENCY 09/01/2018 SUSIE RAMIREZ MD Ot F41.9 ANXIETY DISORDER, UNSPECIFIED 09/01/2018 SUSIE RAMIREZ MD Ot I10 ESSENTIAL (PRIMARY) HYPERTENSION 09/01/2018 SUSIE RAMIREZ MD, Ot J44.9 CHRONIC OBSTRUCTIVE PULMONARY DISEASE, U 09/01/2018 SUSIE RAMIREZ MD, Ot J45.909 UNSPECIFIED ASTHMA, UNCOMPLICATED 09/01/2018 SUSIE RAMIREZ MD Ot M17.0 BILATERAL PRIMARY OSTEOARTHRITIS OF KNEE 09/01/2018 SUSIE RAMIREZ MD Ot R06.02 SHORTNESS OF BREATH 09/01/2018 SUSIE RAMIREZ MD Ot R07.9 CHEST PAIN, UNSPECIFIED 09/01/2018 SUSIE RAMIREZ MD Ot R19.7 DIARRHEA, UNSPECIFIED 09/01/2018 SUSIE RAMIREZ MD Ot Z79.899 OTHER SNF (CURRENT) DRUG THERAPY 09/01/2018 SUSIE RAMIREZ MD Ot Z95.0 PRESENCE OF CARDIAC PACEMAKER 09/01/2018 LIZZY CORDOBA MD Ot Z01.818 ENCOUNTER FOR OTHER PREPROCEDURAL EXAMIN 09/02/2018 LIZZY CORDOBA MD Ot Z01.818 ENCOUNTER FOR OTHER PREPROCEDURAL EXAMIN 09/03/2018 LIZZY CORDOBA MD, Ot E78. 5 HYPERLIPIDEMIA, UNSPECIFIED 09/03/2018 LIZZY CORDOBA MD, Ot E88. 01 SBVPE-5-YDHHGEZROQY DEFICIENCY 09/03/2018 LIZZY CORDOBA MD Ot F03. 90 UNSPECIFIED DEMENTIA WITHOUT BEHAVIORAL 09/03/2018 LIZZY CORDOBA MD Ot I10 ESSENTIAL (PRIMARY) HYPERTENSION 09/03/2018 LIZZY CORDOBA MD Ot J44. 9 CHRONIC OBSTRUCTIVE PULMONARY DISEASE, U 09/03/2018 LIZZY CORDOBA MD Ot K62. 5 HEMORRHAGE OF ANUS AND RECTUM 09/03/2018 LIZZY CORDOBA MD Ot K62. 89 OTHER SPECIFIED DISEASES OF ANUS AND REC 09/03/2018 LIZZY CORDOBA MD Ot Z79. 01 SNF (CURRENT) USE OF ANTICOAGULANT 09/03/2018 LIZZY CORDOBA MD Ot Z86.711 PERSONAL HISTORY OF PULMONARY EMBOLISM 09/03/2018 LIZZY CORDOBA MD Ot Z87. 19 PERSONAL HISTORY OF OTHER DISEASES OF TH 09/06/2018 LIZZY CORDOBA MD, Ot E78. 5 HYPERLIPIDEMIA, UNSPECIFIED 09/06/2018 LIZZY CORDOBA MD Ot E88. 01 UDMJY-0-FUDRYBBMXNR DEFICIENCY 09/06/2018 LIZZY CORDOBA MD Ot F03. 90 UNSPECIFIED DEMENTIA WITHOUT BEHAVIORAL 09/06/2018 LIZZY CORDOBA MD Ot I10 ESSENTIAL (PRIMARY) HYPERTENSION 09/06/2018 LIZZY CORDOBA MD Ot J44. 9 CHRONIC OBSTRUCTIVE PULMONARY DISEASE, U 09/06/2018 LIZZY CORDOBA MD Ot K62. 5 HEMORRHAGE OF ANUS AND RECTUM 09/06/2018 LIZZY CORDOBA MD Ot K62. 89 OTHER SPECIFIED DISEASES OF ANUS AND REC 09/06/2018 LIZZY CORDOBA MD Ot Z79. 01 [employer] (CURRENT) USE OF ANTICOAGULANT 09/06/2018 LIZZY CORDOBA MD Ot Z86.711 PERSONAL HISTORY OF PULMONARY EMBOLISM 09/06/2018 LIZZY CORDOBA MD Ot Z87. 19 PERSONAL HISTORY OF OTHER DISEASES OF TH 09/07/2018 LIZZY CORDOBA MD Ot E78. 5 HYPERLIPIDEMIA, UNSPECIFIED 09/07/2018 CORDOBA MD, LIZZY D Ot E88. 01 SGCIJ-9-PZCPUVSDAZQ DEFICIENCY 09/07/2018 LIZZY CORDOBA MD Ot F03. 90 UNSPECIFIED DEMENTIA WITHOUT BEHAVIORAL 09/07/2018 LIZZY CORDOBA MD Ot I10 ESSENTIAL (PRIMARY) HYPERTENSION 09/07/2018 LIZZY CORDOBA MD Ot J44. 9 CHRONIC OBSTRUCTIVE PULMONARY DISEASE, U 09/07/2018 LIZZY CORDOBA MD Ot K62. 5 HEMORRHAGE OF ANUS AND RECTUM 09/07/2018 LIZZY CORDOBA MD Ot K62. 89 OTHER SPECIFIED DISEASES OF ANUS AND REC 09/07/2018 LIZZY CORDOBA MD, Ot Z79. 01 [employer] (CURRENT) USE OF ANTICOAGULANT 09/07/2018 LIZZY CORDOBA MD, Ot Z86.711 PERSONAL HISTORY OF PULMONARY EMBOLISM 09/07/2018 LIZZY CORDOBA MD Ot Z87. 19 PERSONAL HISTORY OF OTHER DISEASES OF TH 09/10/2018 JUANJO KEATING, DARCI Hartmann Ot H53 .2 DIPLOPIA 09/10/2018 DARCI GEIGER MD Ot R51 HEADACHE 09/10/2018 LIZZY CORDOBA MD Ot K58. 9 IRRITABLE BOWEL SYNDROME WITHOUT DIARRHE 09/10/2018 LIZZY CORDOBA MD Ot R10. 12 LEFT UPPER QUADRANT PAIN 09/10/2018 LIZZY CORDOBA MD Ot R10. 32 LEFT LOWER QUADRANT PAIN 09/10/2018 LIZZY CORDOBA MD Ot Z01.818 ENCOUNTER FOR OTHER PREPROCEDURAL EXAMIN 09/10/2018 LIZZY CORDOBA MD Ot Z86.010 PERSONAL HISTORY OF COLONIC POLYPS 09/10/2018 LOY HUGHES DO Ot Z12.3 1 ENCNTR SCREEN MAMMOGRAM FOR MALIGNANT NE 09/10/2018 ESTEFANIA CLEMENTE MD Ot M48.50XA COLLAPSED VERTEBRA, NEC, SITE UNSP, INIT 09/10/2018 ESTEFANIA CLEMENTE MD Ot M85.88 OTH DISRD OF BONE DENSITY AND STRUCTURE, 09/10/2018 ALVAREZ CORREIA APRN Ot Z12.31 ENCNTR SCREEN MAMMOGRAM FOR MALIGNANT NE 09/10/2018 CRICKET ARAUJO APRN Ot J45.909 UNSPECIFIED ASTHMA, UNCOMPLICATED 09/10/2018 CRICKET ARAUJO APRN Ot R06.02 SHORTNESS OF BREATH 09/10/2018 Ot E88.01 SGAHP-4-FQQISXLQCYO DEFICIENCY 09/10/2018 Ot F41.9 ANXI ETY DISORDER, UNSPECIFIED 09/10/2018 Ot M19.90 UNS PECIFIED OSTEOARTHRITIS, UNSPECIFIED 09/10/2018 BRAD HDEZ MD Ot 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, THORACIC REGION 09/10/2018 BRAD HDEZ MD Ot 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 09/10/2018 CAS KEATING, Kody CISNEROS Ot E88.01 JJUXI-0-LKZRFNQNJMW DEFICIENCY 09/10/2018 Kody CARDOZO MD Ot R06.02 SHORTNESS OF BREATH 09/10/2018 CRICKET ARAUJO APRN Ot E88.01 XUGBM-8-NMOQMLKNWYU DEFICIENCY 09/10/2018 CRICKET ARAUJO APRN Ot F41.9 ANXIETY DISORDER, UNSPECIFIED 09/10/2018 CRICKET ARAUJO APRN Ot I26.99 OTHER PULMONARY EMBOLISM WITHOUT ACUTE C 09/10/2018 CRICKET ARAUJO APRN Ot M19.90 UNSPECIFIED OSTEOARTHRITIS, UNSPECIFIED 09/10/2018 CRICKET ARAUJO APRN Ot Z95.5 PRESENCE OF CORONARY ANGIOPLASTY IMPLANT 09/10/2018 BERNICE GOODSON Ot N28.1 CYST OF KIDNEY, ACQUIRED 09/10/2018 ALVAREZ CORREIA APRN Ot Z 09 ENCNTR FOR F/U EXAM AFT TRTMT FOR COND O 09/10/2018 SUSIE RAMIREZ MD Ot D47.3 ESSENTIAL (HEMORRHAGIC) THROMBOCYTHEMIA 09/10/2018 SUSIE RAMIREZ MD Ot D72.829 ELEVATED WHITE BLOOD CELL COUNT, UNSPECI 09/10/2018 SUSIE RAMIREZ MD Ot E88.01 WAXVD-7-WJJNNPSRPYG DEFICIENCY 09/10/2018 SUSIE RAMIREZ MD Ot F41.9 ANXIETY DISORDER, UNSPECIFIED 09/10/2018 SUSIE RAMIREZ MD Ot I10 ESSENTIAL (PRIMARY) HYPERTENSION 09/10/2018 SUSIE RAMIREZ MD Ot J44.9 CHRONIC OBSTRUCTIVE PULMONARY DISEASE, U 09/10/2018 SUSIE RAMIREZ MD Ot J45.909 UNSPECIFIED ASTHMA, UNCOMPLICATED 09/10/2018 SUSIE RAMIREZ MD Ot M17.0 BILATERAL PRIMARY OSTEOARTHRITIS OF KNEE 09/10/2018 SUSIE RAMIREZ MD Ot R06.02 SHORTNESS OF BREATH 09/10/2018 JAMES KEATING, SUSIE Ot R07.9 CHEST PAIN, UNSPECIFIED 09/10/2018 JAMES KEATING, SUSIE Ot R19.7 DIARRHEA, UNSPECIFIED 09/10/2018 JAMES KEATING, SUSIE Ot Z79.899 OTHER SNF (CURRENT) DRUG THERAPY 09/10/2018 JAMES KEATING, SUSIE Ot Z95.0 PRESENCE OF CARDIAC PACEMAKER 09/15/2018 CAS KEATING, Kody CISNEROS Ot E88.01 DOXYF-7-ANSUNJPHIVU DEFICIENCY 09/15/2018 CAS KEATING, Kody CISNEROS Ot I49 .5 SICK SINUS SYNDROME 09/15/2018 CAS KEATING, M BLAYNE Ot I51 .9 HEART DISEASE, UNSPECIFIED 09/15/2018 CAS KEATING, Kody CISNEROS Ot R06.02 SHORTNESS OF BREATH 09/15/2018 CAS KEATING, Kody CISNEROS Ot R07 .9 CHEST PAIN, UNSPECIFIED 09/15/2018 CAS KEATING, Kody CISNEROS Ot Z95 .0 PRESENCE OF CARDIAC PACEMAKER 09/17/2018 CAS KEATING, M BLAYNE Ot E88.01 SAPHI-2-UCQCODTITHI DEFICIENCY 09/17/2018 Kody CARDOZO MD Ot I49 .5 SICK SINUS SYNDROME 09/17/2018 CAS KEATING, Kody CISNEROS Ot I51 .9 HEART DISEASE, UNSPECIFIED 09/17/2018 CAS KEATING, Kody CISNEROS Ot R06.02 SHORTNESS OF BREATH 09/17/2018 CAS KEATING, Kody CISNEROS Ot R07 .9 CHEST PAIN, UNSPECIFIED 09/17/2018 CAS KEATING, M BLAYNE Ot Z95 .0 PRESENCE OF CARDIAC PACEMAKER 09/19/2018 CAS KEATING, M BLAYNE Ot E88.01 CABQL-9-SLTASQCLVKV DEFICIENCY 09/19/2018 CAS KEATING, M BLAYNE Ot I49 .5 SICK SINUS SYNDROME 09/19/2018 CAS KEATING, M BLAYNE Ot I51 .9 HEART DISEASE, UNSPECIFIED 09/19/2018 CAS KEATING, M BLAYNE Ot R06.02 SHORTNESS OF BREATH 09/19/2018 CAS KEATING, Kody CISNEROS Ot R07 .9 CHEST PAIN, UNSPECIFIED 09/19/2018 CAS KEATING, Kody CISNEROS Ot Z95 .0 PRESENCE OF CARDIAC PACEMAKER 10/05/2018 CAS KEATING, Kody CISNEROS Ot E88.01 KEGPL-3-BXOAQFFBBHI DEFICIENCY 10/05/2018 CAS KEATING, Kody CISNEROS Ot I49 .5 SICK SINUS SYNDROME 10/05/2018 CAS KEATING, Kody CISNEROS Ot I51 .9 HEART DISEASE, UNSPECIFIED 10/05/2018 CAS KEATING, Kody CISNEROS Ot R06.02 SHORTNESS OF BREATH 10/05/2018 CAS KEATING, Kody CISNEROS Ot R07 .9 CHEST PAIN, UNSPECIFIED 10/05/2018 CAS KEATING, Kody CISNEROS Ot Z95 .0 PRESENCE OF CARDIAC PACEMAKER 10/05/2018 ODILIA LAKE DO Ot E78.00 PURE HYPERCHOLESTEROLEMIA, UNSPECIFIED 10/05/2018 ODILIA LAKE DO Ot F03.90 UNSPECIFIED DEMENTIA WITHOUT BEHAVIORAL 10/05/2018 ODILIA LAKE DO Ot F41.9 ANXIETY DISORDER, UNSPECIFIED 10/05/2018 ODILIA LAKE DO Ot I10 ESSENTIAL (PRIMARY) HYPERTENSION 10/05/2018 ODILIA LAKE DO Ot I95.1 ORTHOSTATIC HYPOTENSION 10/05/2018 ODILIA LAKE DO Ot J44.9 CHRONIC OBSTRUCTIVE PULMONARY DISEASE, U 10/05/2018 ODILIA LAKE DO Ot K58.9 IRRITABLE BOWEL SYNDROME WITHOUT DIARRHE 10/05/2018 ODILIA LKAE DO Ot R42 DIZZINESS AND GIDDINESS 10/05/2018 ODILIA LAKE DO Ot Z79.01 SNF (CURRENT) USE OF ANTICOAGULANT 10/05/2018 ODILIA LAKE DO Ot Z79.51 [employer] (CURRENT) USE OF INHALED STERO 10/05/2018 ODILIA LAKE DO Ot Z86.010 PERSONAL HISTORY OF COLONIC POLYPS 10/05/2018 ODILIA LAKE DO Ot Z86.711 PERSONAL HISTORY OF PULMONARY EMBOLISM 10/05/2018 ODILIA LAKE DO Ot Z87.19 PERSONAL HISTORY OF OTHER DISEASES OF TH 10/05/2018 ODILIA LAKE DO Ot Z88.0 ALLERGY STATUS TO PENICILLIN 10/05/2018 JAYA ODILIA LEONG Ot Z88.1 ALLERGY STATUS TO OTHER ANTIBIOTIC AGENT 10/05/2018 JAYA ODILIA LEONG Ot Z88.4 ALLERGY STATUS TO ANESTHETIC AGENT STATU 10/05/2018 JAYA ODILIA LEONG Ot Z88.5 ALLERGY STATUS TO NARCOTIC AGENT STATUS 10/05/2018 JAYA ODILIA LEONG Ot Z88.8 ALLERGY STATUS TO OTH DRUG/MEDS/BIOL SUB 10/05/2018 JAYA ODILIA LEONG Ot Z90.49 ACQUIRED ABSENCE OF OTHER SPECIFIED PART 10/05/2018 JAYA ODILIA LEONG Ot Z90.710 ACQUIRED ABSENCE OF BOTH CERVIX AND UTER 10/05/2018 JAYA ODILIA LEONG Ot Z95.0 PRESENCE OF CARDIAC PACEMAKER 10/05/2018 JAYA ODILIA LEONG Ot Z98.890 OTHER SPECIFIED POSTPROCEDURAL STATES 10/07/2018 JAYA ODILIA LEONG Ot E78.00 PURE HYPERCHOLESTEROLEMIA, UNSPECIFIED 10/07/2018 JAYA ODILIA LEONG Ot F03.90 UNSPECIFIED DEMENTIA WITHOUT BEHAVIORAL 10/07/2018 JAYA ODILIA LEONG Ot F41.9 ANXIETY DISORDER, UNSPECIFIED 10/07/2018 JAYA ODILIA LEONG Ot I10 ESSENTIAL (PRIMARY) HYPERTENSION 10/07/2018 JAYA ODILIA LEONG Ot I95.1 ORTHOSTATIC HYPOTENSION 10/07/2018 JAYA ODILIA LEONG Ot J44.9 CHRONIC OBSTRUCTIVE PULMONARY DISEASE, U 10/07/2018 JAYA ODILIA LEONG Ot K58.9 IRRITABLE BOWEL SYNDROME WITHOUT DIARRHE 10/07/2018 JAYA ODILIA LEONG Ot R42 DIZZINESS AND GIDDINESS 10/07/2018 JAYA ODILIA LEONG Ot Z79.01 SNF (CURRENT) USE OF ANTICOAGULANT 10/07/2018 ODILIA LAKE DO Ot Z79.51 [employer] (CURRENT) USE OF INHALED STERO 10/07/2018 JAYA ODILIA LEONG Ot Z86.010 PERSONAL HISTORY OF COLONIC POLYPS 10/07/2018 ODILIA LAKE DO Ot Z86.711 PERSONAL HISTORY OF PULMONARY EMBOLISM 10/07/2018 ODILIA LAKE DO Ot Z87.19 PERSONAL HISTORY OF OTHER DISEASES OF TH 10/07/2018 ODILIA LAKE DO Ot Z88.0 ALLERGY STATUS TO PENICILLIN 10/07/2018 JAYA ODILIA LEONG Ot Z88.1 ALLERGY STATUS TO OTHER ANTIBIOTIC AGENT 10/07/2018 JAYA ODILIA LEONG Ot Z88.4 ALLERGY STATUS TO ANESTHETIC AGENT STATU 10/07/2018 JAYA ODILIA LEONG Ot Z88.5 ALLERGY STATUS TO NARCOTIC AGENT STATUS 10/07/2018 JAYA ODILIA LEONG Ot Z88.8 ALLERGY STATUS TO OTH DRUG/MEDS/BIOL SUB 10/07/2018 MCDONOUGH ODILIA LEONG Ot Z90.49 ACQUIRED ABSENCE OF OTHER SPECIFIED PART 10/07/2018 MCDONOUGH ODILIA LEONG Ot Z90.710 ACQUIRED ABSENCE OF BOTH CERVIX AND UTER 10/07/2018 JAYA ODILIA LEONG Ot Z95.0 PRESENCE OF CARDIAC PACEMAKER 10/07/2018 JAYA ODILIA LEONG Ot Z98.890 OTHER SPECIFIED POSTPROCEDURAL STATES 10/11/2018 JAYA ODILIA LEONG Ot E78.00 PURE HYPERCHOLESTEROLEMIA, UNSPECIFIED 10/11/2018 MCDONOUGH ODILIA LEONG Ot F03.90 UNSPECIFIED DEMENTIA WITHOUT BEHAVIORAL 10/11/2018 JAYA ODILIA LEONG Ot F41.9 ANXIETY DISORDER, UNSPECIFIED 10/11/2018 JAYA ODILIA LEONG Ot I10 ESSENTIAL (PRIMARY) HYPERTENSION 10/11/2018 JAYA ODILIA LEONG Ot I95.1 ORTHOSTATIC HYPOTENSION 10/11/2018 JAYA ODILIA LEONG Ot J44.9 CHRONIC OBSTRUCTIVE PULMONARY DISEASE, U 10/11/2018 JAYA ODILIA LEONG Ot K58.9 IRRITABLE BOWEL SYNDROME WITHOUT DIARRHE 10/11/2018 JAYA ODILIA LEONG Ot R42 DIZZINESS AND GIDDINESS 10/11/2018 JAYA ODILIA LEONG Ot Z79.01 SNF (CURRENT) USE OF ANTICOAGULANT 10/11/2018 ODILIA LAKE DO Ot Z79.51 SNF (CURRENT) USE OF INHALED STERO 10/11/2018 JAYA ODILIA LEONG Ot Z86.010 PERSONAL HISTORY OF COLONIC POLYPS 10/11/2018 ODILIA LAKE DO Ot Z86.711 PERSONAL HISTORY OF PULMONARY EMBOLISM 10/11/2018 ODILIA LAKE DO Ot Z87.19 PERSONAL HISTORY OF OTHER DISEASES OF TH 10/11/2018 ODILIA LAKE DO Ot Z88.0 ALLERGY STATUS TO PENICILLIN 10/11/2018 JAYA ODILIA LEONG Ot Z88.1 ALLERGY STATUS TO OTHER ANTIBIOTIC AGENT 10/11/2018 JAYA ODILIA LEONG Ot Z88.4 ALLERGY STATUS TO ANESTHETIC AGENT STATU 10/11/2018 JAYA ODILIA LEONG Ot Z88.5 ALLERGY STATUS TO NARCOTIC AGENT STATUS 10/11/2018 JAYA ODILIA LEONG Ot Z88.8 ALLERGY STATUS TO OTH DRUG/MEDS/BIOL SUB 10/11/2018 JAYA ODILIA LEONG Ot Z90.49 ACQUIRED ABSENCE OF OTHER SPECIFIED PART 10/11/2018 JAYA ODILIA LEONG Ot Z90.710 ACQUIRED ABSENCE OF BOTH CERVIX AND UTER 10/11/2018 JAYA ODILIA Baptiste Ot Z95.0 PRESENCE OF CARDIAC PACEMAKER 10/11/2018 JAYA ODILIA Baptiste Ot Z98.890 OTHER SPECIFIED POSTPROCEDURAL STATES 10/13/2018 Kody CARDOZO MD Ot E88.01 [id number] DEFICIENCY 10/13/2018 Kody CARDOZO MD Ot I49 .5 SICK SINUS SYNDROME 10/13/2018 Kody CARDOZO MD Ot I51 .9 HEART DISEASE, UNSPECIFIED 10/13/2018 Kody CARDOZO MD Ot R06.02 SHORTNESS OF BREATH 10/13/2018 Kody CARDOZO MD Ot R07 .9 CHEST PAIN, UNSPECIFIED 10/13/2018 Kody CARDOZO MD Ot Z95 .0 PRESENCE OF CARDIAC PACEMAKER 10/13/2018 Kody CARDOZO MD Ot 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 10/13/2018 Kody CARDOZO MD Ot I49 .5 SICK SINUS SYNDROME 10/13/2018 Kody CARDOZO MD Ot I51 .9 HEART DISEASE, UNSPECIFIED 10/13/2018 Kody CARDOZO MD Ot R06.02 SHORTNESS OF BREATH 10/13/2018 Kody CARDOZO MD Ot R07 .9 CHEST PAIN, UNSPECIFIED 10/13/2018 Kody CARDOZO MD Ot Z95 .0 PRESENCE OF CARDIAC PACEMAKER 10/14/2018 SUSIE RAMIREZ MD Ot D47.3 ESSENTIAL (HEMORRHAGIC) THROMBOCYTHEMIA 10/14/2018 SUSIE ARMIREZ MD Ot D72.829 ELEVATED WHITE BLOOD CELL COUNT, UNSPECI 10/14/2018 SUSIE RAMIREZ MD Ot E88.01 NLPKD-4-TLSLFMMXYDD DEFICIENCY 10/14/2018 SUSIE RAMIREZ MD Ot F41.9 ANXIETY DISORDER, UNSPECIFIED 10/14/2018 SUSIE RAMIREZ MD Ot I10 ESSENTIAL (PRIMARY) HYPERTENSION 10/14/2018 SUSIE RAMIREZ MD Ot J44.9 CHRONIC OBSTRUCTIVE PULMONARY DISEASE, U 10/14/2018 SUSIE RAMIREZ MD Ot J45.909 UNSPECIFIED ASTHMA, UNCOMPLICATED 10/14/2018 SUSIE RAMIREZ MD Ot M17.0 BILATERAL PRIMARY OSTEOARTHRITIS OF KNEE 10/14/2018 SUSIE RAMIREZ MD Ot R06.02 SHORTNESS OF BREATH 10/14/2018 SUSIE RAMIREZ MD Ot R07.9 CHEST PAIN, UNSPECIFIED 10/14/2018 SUSIE RAMIREZ MD Ot R19.7 DIARRHEA, UNSPECIFIED 10/14/2018 SUSIE RAMIREZ MD Ot Z79.899 OTHER [employer] (CURRENT) DRUG THERAPY 10/14/2018 SUSIE RAMIREZ MD Ot Z95.0 PRESENCE OF CARDIAC PACEMAKER 10/15/2018 BERNICE GOODSON Ot R11.10 VOMITING, UNSPECIFIED 10/15/2018 BERNICE GOODSON Ot R 51 HEADACHE 10/15/2018 BERNICE GOODSON Ot W19.XXXA UNSPECIFIED FALL, INITIAL ENCOUNTER 10/18/2018 SUSIE RAMIREZ MD Ot D47.3 ESSENTIAL (HEMORRHAGIC) THROMBOCYTHEMIA 10/18/2018 SUSIE RAMIREZ MD Ot D72.829 ELEVATED WHITE BLOOD CELL COUNT, UNSPECI 10/18/2018 SUSIE RAMIREZ MD Ot E88.01 LPDFC-8-IGVSIZDZNJH DEFICIENCY 10/18/2018 SUSIE RAMIREZ MD Ot F41.9 ANXIETY DISORDER, UNSPECIFIED 10/18/2018 SUSIE RAMIREZ MD Ot I10 ESSENTIAL (PRIMARY) HYPERTENSION 10/18/2018 SUSIE RAMIREZ MD Ot J44.9 CHRONIC OBSTRUCTIVE PULMONARY DISEASE, U 10/18/2018 SUSIE RAMIREZ MD Ot J45.909 UNSPECIFIED ASTHMA, UNCOMPLICATED 10/18/2018 SUSIE RAMIREZ MD Ot M17.0 BILATERAL PRIMARY OSTEOARTHRITIS OF KNEE 10/18/2018 SUSIE RAMIREZ MD Ot R06.02 SHORTNESS OF BREATH 10/18/2018 SUSIE RAMIREZ MD Ot R07.9 CHEST PAIN, UNSPECIFIED 10/18/2018 SUSIE RAMIREZ MD Ot R19.7 DIARRHEA, UNSPECIFIED 10/18/2018 SUSIE RAMIREZ MD Ot Z79.899 OTHER SNF (CURRENT) DRUG THERAPY 10/18/2018 SUSIE RAMIREZ MD Ot Z95.0 PRESENCE OF CARDIAC PACEMAKER 10/20/2018 SUSIE RAMIREZ MD Ot D47.3 ESSENTIAL (HEMORRHAGIC) THROMBOCYTHEMIA 10/20/2018 SUSIE RAMIREZ MD Ot D72.829 ELEVATED WHITE BLOOD CELL COUNT, UNSPECI 10/20/2018 SUSIE RAMIREZ MD Ot E88.01 TELHY-9-BPTIIBVVEWC DEFICIENCY 10/20/2018 SUSIE RAMIREZ MD Ot F41.9 ANXIETY DISORDER, UNSPECIFIED 10/20/2018 SUSIE RAMIREZ MD Ot I10 ESSENTIAL (PRIMARY) HYPERTENSION 10/20/2018 SUSIE RAMIREZ MD Ot J44.9 CHRONIC OBSTRUCTIVE PULMONARY DISEASE, U 10/20/2018 SUSIE RAMIREZ MD Ot J45.909 UNSPECIFIED ASTHMA, UNCOMPLICATED 10/20/2018 SUSIE RAMIREZ MD Ot M17.0 BILATERAL PRIMARY OSTEOARTHRITIS OF KNEE 10/20/2018 SUSIE RAMIREZ MD Ot R06.02 SHORTNESS OF BREATH 10/20/2018 SUSIE RAMIREZ MD Ot R07.9 CHEST PAIN, UNSPECIFIED 10/20/2018 SUSIE RAMIREZ MD Ot R19.7 DIARRHEA, UNSPECIFIED 10/20/2018 SUSIE RAMIREZ MD Ot Z79.899 OTHER [employer] (CURRENT) DRUG THERAPY 10/20/2018 SUSIE RAMIREZ MD Ot Z95.0 PRESENCE OF CARDIAC PACEMAKER 11/02/2018 Kody CARDOZO MD Ot E88.01 DOQTA-9-FBERCMLPNMR DEFICIENCY 11/02/2018 Kody CARDOZO MD Ot R06.02 SHORTNESS OF BREATH 11/05/2018 BERNICE GOODSON Ot R11.10 VOMITING, UNSPECIFIED 11/05/2018 BERNICE GOODSON Ot R 51 HEADACHE 11/05/2018 BERNICE GOODSON Ot W19.XXXA UNSPECIFIED FALL, INITIAL ENCOUNTER 11/08/2018 CAS KEATING, M BLAYNE Ot E88.01 ASWSF-1-AAVEYLIUDDV DEFICIENCY 11/08/2018 CAS KEATING, Kody CISNEROS Ot R06.02 SHORTNESS OF BREATH 11/15/2018 SUSIE RAMIREZ MD Ot D47.3 ESSENTIAL (HEMORRHAGIC) THROMBOCYTHEMIA 11/15/2018 SUSIE RAMIREZ MD Ot D72.829 ELEVATED WHITE BLOOD CELL COUNT, UNSPECI 11/15/2018 SUSIE RAMIREZ MD Ot E88.01 IRYRH-5-XUVHLQFTPYN DEFICIENCY 11/15/2018 SUSIE RAMIREZ MD Ot F41.9 ANXIETY DISORDER, UNSPECIFIED 11/15/2018 SUSIE RAMIREZ MD Ot I10 ESSENTIAL (PRIMARY) HYPERTENSION 11/15/2018 SUSIE RAMIREZ MD Ot J44.9 CHRONIC OBSTRUCTIVE PULMONARY DISEASE, U 11/15/2018 SUSIE RAMIREZ MD Ot J45.909 UNSPECIFIED ASTHMA, UNCOMPLICATED 11/15/2018 SUSIE RAMIREZ MD Ot M17.0 BILATERAL PRIMARY OSTEOARTHRITIS OF KNEE 11/15/2018 SUSIE RAMIREZ MD Ot R06.02 SHORTNESS OF BREATH 11/15/2018 SUSIE RAMIREZ MD Ot R07.9 CHEST PAIN, UNSPECIFIED 11/15/2018 SUSIE RAMIREZ MD Ot R19.7 DIARRHEA, UNSPECIFIED 11/15/2018 SUSIE RAMIREZ MD Ot Z79.899 OTHER SNF (CURRENT) DRUG THERAPY 11/15/2018 SUSIE RAMIREZ MD Ot Z95.0 PRESENCE OF CARDIAC PACEMAKER 12/30/2018 SUSIE RAMIREZ MD Ot D47.3 ESSENTIAL (HEMORRHAGIC) THROMBOCYTHEMIA 12/30/2018 SUSIE RAMIREZ MD Ot D64.9 ANEMIA, UNSPECIFIED 12/30/2018 SUSIE RAMIREZ MD Ot D72.829 ELEVATED WHITE BLOOD CELL COUNT, UNSPECI 12/30/2018 SUSIE RAMIREZ MD Ot E88.01 GGBPG-0-MANHBTSWQHB DEFICIENCY 12/30/2018 SUSIE RAMIREZ MD Ot F41.9 ANXIETY DISORDER, UNSPECIFIED 12/30/2018 SUSIE RAMIREZ MD Ot I10 ESSENTIAL (PRIMARY) HYPERTENSION 12/30/2018 SUSIE RAMIREZ MD Ot J44.9 CHRONIC OBSTRUCTIVE PULMONARY DISEASE, U 12/30/2018 SUSIE RAMIREZ MD Ot J45.909 UNSPECIFIED ASTHMA, UNCOMPLICATED 12/30/2018 SUSIE RAMIREZ MD Ot M17.0 BILATERAL PRIMARY OSTEOARTHRITIS OF KNEE 12/30/2018 SUSIE RAMIREZ MD Ot R06.02 SHORTNESS OF BREATH 12/30/2018 SUSIE RAMIREZ MD Ot R07.9 CHEST PAIN, UNSPECIFIED 12/30/2018 SUSIE RAMIREZ MD Ot R19.7 DIARRHEA, UNSPECIFIED 12/30/2018 SUSIE RAMIREZ MD Ot Z79.899 OTHER SNF (CURRENT) DRUG THERAPY 12/30/2018 SUSIE RAMIREZ MD Ot Z95.0 PRESENCE OF CARDIAC PACEMAKER 02/10/2019 SUSIE RAMIREZ MD Ot D47.3 ESSENTIAL (HEMORRHAGIC) THROMBOCYTHEMIA 02/10/2019 SUSIE RAMIREZ MD Ot D64.9 ANEMIA, UNSPECIFIED 02/10/2019 SUSIE RAMIREZ MD Ot D72.829 ELEVATED WHITE BLOOD CELL COUNT, UNSPECI 02/10/2019 SUSIE RAMIREZ MD Ot E88.01 YRWDF-2-FSRVUDJFDHZ DEFICIENCY 02/10/2019 SUSIE RAMIREZ MD Ot F41.9 ANXIETY DISORDER, UNSPECIFIED 02/10/2019 SUSIE RAMIREZ MD Ot I10 ESSENTIAL (PRIMARY) HYPERTENSION 02/10/2019 SUSIE RAMIREZ MD Ot J44.9 CHRONIC OBSTRUCTIVE PULMONARY DISEASE, U 02/10/2019 SUSIE RAMIREZ MD Ot J45.909 UNSPECIFIED ASTHMA, UNCOMPLICATED 02/10/2019 SUSIE RAMIREZ MD Ot M17.0 BILATERAL PRIMARY OSTEOARTHRITIS OF KNEE 02/10/2019 SUSIE RAMIREZ MD Ot R06.02 SHORTNESS OF BREATH 02/10/2019 SUSIE RAMIREZ MD Ot R07.9 CHEST PAIN, UNSPECIFIED 02/10/2019 SUSIE RAMIREZ MD Ot R19.7 DIARRHEA, UNSPECIFIED 02/10/2019 SUSIE RAMIREZ MD Ot Z79.899 OTHER [employer] (CURRENT) DRUG THERAPY 02/10/2019 SUSIE RAMIREZ MD Ot Z95.0 PRESENCE OF CARDIAC PACEMAKER 02/11/2019 SUSIE RAMIREZ MD Ot D47.3 ESSENTIAL (HEMORRHAGIC) THROMBOCYTHEMIA 02/11/2019 SUSIE RAMIREZ MD Ot D64.9 ANEMIA, UNSPECIFIED 02/11/2019 SUSIE RAMIREZ MD Ot D72.829 ELEVATED WHITE BLOOD CELL COUNT, UNSPECI 02/11/2019 SUSIE RAMIREZ MD Ot E88.01 VDSKW-8-BXCGGBVHGVX DEFICIENCY 02/11/2019 SUSIE RAMIREZ MD Ot F41.9 ANXIETY DISORDER, UNSPECIFIED 02/11/2019 SUSIE RAMIREZ MD Ot I10 ESSENTIAL (PRIMARY) HYPERTENSION 02/11/2019 SUSIE RAMIREZ MD Ot J44.9 CHRONIC OBSTRUCTIVE PULMONARY DISEASE, U 02/11/2019 SUSIE RAMIREZ MD Ot J45.909 UNSPECIFIED ASTHMA, UNCOMPLICATED 02/11/2019 SUSIE RAMIREZ MD Ot M17.0 BILATERAL PRIMARY OSTEOARTHRITIS OF KNEE 02/11/2019 SUSIE RAMIREZ MD Ot R06.02 SHORTNESS OF BREATH 02/11/2019 SUSIE RAMIREZ MD Ot R07.9 CHEST PAIN, UNSPECIFIED 02/11/2019 SUSIE RAMIREZ MD Ot R19.7 DIARRHEA, UNSPECIFIED 02/11/2019 SUSIE RAMIREZ MD Ot Z79.899 OTHER [employer] (CURRENT) DRUG THERAPY 02/11/2019 SUSIE RAMIREZ MD Ot Z95.0 PRESENCE OF CARDIAC PACEMAKER 03/04/2019 MARTA BLAIR APRN Ot E78.00 PURE HYPERCHOLESTEROLEMIA, UNSPECIFIED 03/04/2019 MARTA BLAIR APRN Ot F03.90 UNSPECIFIED DEMENTIA WITHOUT BEHAVIORAL 03/04/2019 MARTA BLAIR APRN Ot F41 .9 ANXIETY DISORDER, UNSPECIFIED 03/04/2019 MARTA BLAIR APRN Ot I10 ESSENTIAL (PRIMARY) HYPERTENSION 03/04/2019 MARTA BLAIR APRN Ot J44 .9 CHRONIC OBSTRUCTIVE PULMONARY DISEASE, U 03/04/2019 MARTA BLAIR APRN Ot K58 .9 IRRITABLE BOWEL SYNDROME WITHOUT DIARRHE 03/04/2019 MARTA BLAIR APRN Ot K59.00 CONSTIPATION, UNSPECIFIED 03/04/2019 MARTA BLAIR APRN Ot R10 .9 UNSPECIFIED ABDOMINAL PAIN 03/04/2019 MARTA BLAIR APRN Ot Z79.01 [employer] (CURRENT) USE OF ANTICOAGULANT 03/04/2019 MARTA BLAIR APRN Ot Z79.51 SNF (CURRENT) USE OF INHALED STERO 03/04/2019 MARTA BLAIR APRN Ot Z79.52 [employer] (CURRENT) USE OF SYSTEMIC STER 03/04/2019 MARTA BLAIR APRN Ot Z86.711 PERSONAL HISTORY OF PULMONARY EMBOLISM 03/04/2019 MARTA BLAIR APRN Ot Z88 .0 ALLERGY STATUS TO PENICILLIN 03/04/2019 BLAIR, PETER J BLOCK STACKER Ot Z88 .1 ALLERGY STATUS TO OTHER ANTIBIOTIC AGENT 03/04/2019 MARTA BLAIR BLOCK STACKER Ot Z88 .5 ALLERGY STATUS TO NARCOTIC AGENT STATUS 03/04/2019 MARTA BLAIR BLOCK STACKER Ot Z88 .8 ALLERGY STATUS TO OTH DRUG/MEDS/BIOL SUB 03/04/2019 MARTA BLAIR APRN Ot Z90.49 ACQUIRED ABSENCE OF OTHER SPECIFIED PART 03/04/2019 MARTA BLAIR APRN Ot Z90.710 ACQUIRED ABSENCE OF BOTH CERVIX AND UTER 03/04/2019 MARTA BLAIR APRN Ot Z95 .0 PRESENCE OF CARDIAC PACEMAKER 03/04/2019 JUANJO KEATING, DARCI Hartmann Ot H53 .2 DIPLOPIA 03/04/2019 JUANJO KEATING, DARCI Hartmann Ot R51 HEADACHE 03/04/2019 BERYL KEATING, LIZZY Aguilar Ot K58. 9 IRRITABLE BOWEL SYNDROME WITHOUT DIARRHE 03/04/2019 BERYL KEATING, LIZZY Aguilar Ot R10. 12 LEFT UPPER QUADRANT PAIN 03/04/2019 LIZZY CORDOBA MD Ot R10. 32 LEFT LOWER QUADRANT PAIN 03/04/2019 BERYL KEATING, LIZZY Aguilar Ot Z01.818 ENCOUNTER FOR OTHER PREPROCEDURAL EXAMIN 03/04/2019 BERYL KEATING, LIZZY Aguilar Ot Z86.010 PERSONAL HISTORY OF COLONIC POLYPS 03/04/2019 HUGHES DO, LOY Dao Ot Z12.3 1 ENCNTR SCREEN MAMMOGRAM FOR MALIGNANT NE 03/04/2019 BRYN KEATING, ESTEFANIA Dodd Ot M48.50XA COLLAPSED VERTEBRA, NEC, SITE UNSP, INIT 03/04/2019 ESTEFANIA CLEMENTE MD Ot M85.88 OT DISRD OF BONE DENSITY AND STRUCTURE, 03/04/2019 ALVAREZ CORREIA APRN Ot Z12.31 ENCNTR SCREEN MAMMOGRAM FOR MALIGNANT NE 03/04/2019 CRICKET ARAUJO APRN Ot J45.909 UNSPECIFIED ASTHMA, UNCOMPLICATED 03/04/2019 CRICKET ARAUJO APRN Ot R06.02 SHORTNESS OF BREATH 03/04/2019 Ot E88.01 SVOXJ-0-WXPLFCMNIXQ DEFICIENCY 03/04/2019 Ot F41.9 ANXI ETY DISORDER, UNSPECIFIED 03/04/2019 Ot M19.90 UNS PECIFIED OSTEOARTHRITIS, UNSPECIFIED 03/04/2019 KETTY KEATING, BRAD Aguilar Ot 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, THORACIC REGION 03/04/2019 KETTY KEATING, BRAD Aguilar Ot 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 03/04/2019 CAS KEATING, Kody CISNEROS Ot E88.01 NUIRE-3-FFPLKDYHSSW DEFICIENCY 03/04/2019 Kody CARDOZO MD Ot R06.02 SHORTNESS OF BREATH 03/04/2019 CRICKET ARAUJO APRN Ot E88.01 UHHFW-2-FGYKCSXPAYS DEFICIENCY 03/04/2019 CRICKET ARAUJO BLOCK STACKER Ot F41.9 ANXIETY DISORDER, UNSPECIFIED 03/04/2019 CRICKET ARAUJO BLOCK STACKER Ot I26.99 OTHER PULMONARY EMBOLISM WITHOUT ACUTE C 03/04/2019 CRICKET ARAUJO APRN Ot M19.90 UNSPECIFIED OSTEOARTHRITIS, UNSPECIFIED 03/04/2019 CRICKET ARAUJO APRN Ot Z95.5 PRESENCE OF CORONARY ANGIOPLASTY IMPLANT 03/04/2019 BERNICE GOODSON Ot N28.1 CYST OF KIDNEY, ACQUIRED 03/04/2019 ALVAREZ CORREIA APRN Ot Z 09 ENCNTR FOR F/U EXAM AFT TRTMT FOR COND O 03/04/2019 Kody CARDOZO MD Ot E88.01 BXINX-5-DWODQRZJYHO DEFICIENCY 03/04/2019 Kody CARDOZO MD Ot I49 .5 SICK SINUS SYNDROME 03/04/2019 Kody CARDOZO MD Ot I51 .9 HEART DISEASE, UNSPECIFIED 03/04/2019 Kody CARDOZO MD Ot R06.02 SHORTNESS OF BREATH 03/04/2019 Kody CARDOZO MD Ot R07 .9 CHEST PAIN, UNSPECIFIED 03/04/2019 Kody CARDOZO MD Ot Z95 .0 PRESENCE OF CARDIAC PACEMAKER 03/04/2019 Kody CARDOZO MD Ot E88.01 YFIGM-9-DWUDDPCGQOA DEFICIENCY 03/04/2019 Kody CARDOZO MD Ot I49 .5 SICK SINUS SYNDROME 03/04/2019 Kody CARDOZO MD Ot I51 .9 HEART DISEASE, UNSPECIFIED 03/04/2019 Kody CARDOZO MD Ot R06.02 SHORTNESS OF BREATH 03/04/2019 Kody CARDOZO MD Ot R07 .9 CHEST PAIN, UNSPECIFIED 03/04/2019 CAS KEATING, Kody CISNEROS Ot Z95 .0 PRESENCE OF CARDIAC PACEMAKER 03/04/2019 BERNICE GOODSON Ot R11.10 VOMITING, UNSPECIFIED 03/04/2019 BERNICE GOODSON Ot R 51 HEADACHE 03/04/2019 BERNICE GOODSON Ot W19.XXXA UNSPECIFIED FALL, INITIAL ENCOUNTER 03/04/2019 SUSIE RAMIREZ MD Ot D47.3 ESSENTIAL (HEMORRHAGIC) THROMBOCYTHEMIA 03/04/2019 SUSIE RAMIREZ MD Ot D64.9 ANEMIA, UNSPECIFIED 03/04/2019 SUSIE RAMIREZ MD Ot D72.829 ELEVATED WHITE BLOOD CELL COUNT, UNSPECI 03/04/2019 SUSIE RAMIREZ MD Ot E88.01 USMBV-2-PFQHLSOICEJ DEFICIENCY 03/04/2019 SUSIE RAMIREZ MD Ot F41.9 ANXIETY DISORDER, UNSPECIFIED 03/04/2019 SUSIE RAMIREZ MD Ot I10 ESSENTIAL (PRIMARY) HYPERTENSION 03/04/2019 SUSIE RAMIREZ MD Ot J44.9 CHRONIC OBSTRUCTIVE PULMONARY DISEASE, U 03/04/2019 SUSIE RAMIREZ MD Ot J45.909 UNSPECIFIED ASTHMA, UNCOMPLICATED 03/04/2019 SUSIE RAMIREZ MD Ot M17.0 BILATERAL PRIMARY OSTEOARTHRITIS OF KNEE 03/04/2019 SUSIE RAMIREZ MD Ot R06.02 SHORTNESS OF BREATH 03/04/2019 SUSIE RAMIREZ MD Ot R07.9 CHEST PAIN, UNSPECIFIED 03/04/2019 SUSIE RAMIREZ MD Ot R19.7 DIARRHEA, UNSPECIFIED 03/04/2019 SUSIE RAMIREZ MD Ot Z79.899 OTHER SNF (CURRENT) DRUG THERAPY 03/04/2019 SUSIE RAMIREZ MD Ot Z95.0 PRESENCE OF CARDIAC PACEMAKER 03/07/2019 MARTA BLAIR APRN Ot E78.00 PURE HYPERCHOLESTEROLEMIA, UNSPECIFIED 03/07/2019 MARTA BLAIR APRN Ot F03.90 UNSPECIFIED DEMENTIA WITHOUT BEHAVIORAL 03/07/2019 MARTA BLAIR APRN Ot F41 .9 ANXIETY DISORDER, UNSPECIFIED 03/07/2019 MARTA BLAIR APRN Ot I10 ESSENTIAL (PRIMARY) HYPERTENSION 03/07/2019 MARTA BLAIR APRN Ot J44 .9 CHRONIC OBSTRUCTIVE PULMONARY DISEASE, U 03/07/2019 MARTA BLAIR APRN Ot K58 .9 IRRITABLE BOWEL SYNDROME WITHOUT DIARRHE 03/07/2019 MARTA BLAIR APRN Ot K59.00 CONSTIPATION, UNSPECIFIED 03/07/2019 MARTA BLAIR APRN Ot R10 .9 UNSPECIFIED ABDOMINAL PAIN 03/07/2019 MARTA BLAIR APRN Ot Z79.01 [employer] (CURRENT) USE OF ANTICOAGULANT 03/07/2019 MARTA BLAIR APRN Ot Z79.51 SNF (CURRENT) USE OF INHALED STERO 03/07/2019 MARTA BLAIR APRN Ot Z79.52 SNF (CURRENT) USE OF SYSTEMIC STER 03/07/2019 MARTA BLAIR APRN Ot Z86.711 PERSONAL HISTORY OF PULMONARY EMBOLISM 03/07/2019 MARTA BLAIR APRN Ot Z88 .0 ALLERGY STATUS TO PENICILLIN 03/07/2019 MARTA BLAIR APRN Ot Z88 .1 ALLERGY STATUS TO OTHER ANTIBIOTIC AGENT 03/07/2019 MARTA BLAIR APRN Ot Z88 .5 ALLERGY STATUS TO NARCOTIC AGENT STATUS 03/07/2019 MARTA BLAIR APRN Ot Z88 .8 ALLERGY STATUS TO OTH DRUG/MEDS/BIOL SUB 03/07/2019 MARTA BLAIR APRN Ot Z90.49 ACQUIRED ABSENCE OF OTHER SPECIFIED PART 03/07/2019 MARTA BALIR APRN Ot Z90.710 ACQUIRED ABSENCE OF BOTH CERVIX AND UTER 03/07/2019 MARTA BLAIR APRN Ot Z95 .0 PRESENCE OF CARDIAC PACEMAKER 03/14/2019 BERNICE GOODSON Ot Z12.31 ENCNTR SCREEN MAMMOGRAM FOR MALIGNANT NE 03/14/2019 BERNICE GOODSON Ot Z12.31 ENCNTR SCREEN MAMMOGRAM FOR MALIGNANT NE 03/14/2019 BERNICE GOODSON Ot Z12.31 ENCNTR SCREEN MAMMOGRAM FOR MALIGNANT NE 03/14/2019 JUANJO KEATING, DARCI Hartmann Ot H53 .2 DIPLOPIA 03/14/2019 DARCI GEIGER MD Ot R51 HEADACHE 03/14/2019 BERNICE GOODSON Ot Z12.31 ENCNTR SCREEN MAMMOGRAM FOR MALIGNANT NE 03/17/2019 SUSIE RAMIREZ MD Ot D47.3 ESSENTIAL (HEMORRHAGIC) THROMBOCYTHEMIA 03/17/2019 SUSIE RAMIREZ MD Ot D64.9 ANEMIA, UNSPECIFIED 03/17/2019 JAMES KEATING, SUSIE Ot D72.829 ELEVATED WHITE BLOOD CELL COUNT, UNSPECI 03/17/2019 SUSIE RAMIREZ MD Ot E88.01 UIDLN-9-XHJLQEXKVCT DEFICIENCY 03/17/2019 SUSIE RAMIREZ MD Ot F41.9 ANXIETY DISORDER, UNSPECIFIED 03/17/2019 SUSIE RAMIREZ MD Ot I10 ESSENTIAL (PRIMARY) HYPERTENSION 03/17/2019 SUSIE RAMIREZ MD Ot J44.9 CHRONIC OBSTRUCTIVE PULMONARY DISEASE, U 03/17/2019 SUSIE ARMIREZ MD Ot J45.909 UNSPECIFIED ASTHMA, UNCOMPLICATED 03/17/2019 SUSIE RAMIREZ MD Ot M17.0 BILATERAL PRIMARY OSTEOARTHRITIS OF KNEE 03/17/2019 SUSIE RAMIREZ MD Ot R06.02 SHORTNESS OF BREATH 03/17/2019 SUSIE RAMIREZ MD Ot R07.9 CHEST PAIN, UNSPECIFIED 03/17/2019 SUSIE RAMIREZ MD Ot R19.7 DIARRHEA, UNSPECIFIED 03/17/2019 SUSIE RAMIREZ MD Ot Z79.899 OTHER [employer] (CURRENT) DRUG THERAPY 03/17/2019 SUSIE RAMIREZ MD Ot Z95.0 PRESENCE OF CARDIAC PACEMAKER 03/17/2019 JUANJO KEATING, DARCI Hartmann Ot H53 .2 DIPLOPIA 03/17/2019 DARCI GEIGER MD Ot R51 HEADACHE 03/17/2019 LIZZY CORDOBA MD Ot K58. 9 IRRITABLE BOWEL SYNDROME WITHOUT DIARRHE 03/17/2019 LIZZY CORDOBA MD Ot R10. 12 LEFT UPPER QUADRANT PAIN 03/17/2019 LIZZY CORDOBA MD Ot R10. 32 LEFT LOWER QUADRANT PAIN 03/17/2019 LIZZY CORDOBA MD Ot Z01.818 ENCOUNTER FOR OTHER PREPROCEDURAL EXAMIN 03/17/2019 LIZZY CORDOBA MD Ot Z86.010 PERSONAL HISTORY OF COLONIC POLYPS 03/17/2019 LOY HUGHES DO Ot Z12.3 1 ENCNTR SCREEN MAMMOGRAM FOR MALIGNANT NE 03/17/2019 ESTEFANIA CLEMENTE MD Ot M48.50XA COLLAPSED VERTEBRA, NEC, SITE UNSP, INIT 03/17/2019 ESTEFANIA CLEMENTE MD Ot M85.88 OTH DISRD OF BONE DENSITY AND STRUCTURE, 03/17/2019 ALVAREZ CORREIA APRN Ot Z12.31 ENCNTR SCREEN MAMMOGRAM FOR MALIGNANT NE 03/17/2019 CRICKET ARAUJO APRN Ot J45.909 UNSPECIFIED ASTHMA, UNCOMPLICATED 03/17/2019 CRICKET ARAUJO APRN Ot R06.02 SHORTNESS OF BREATH 03/17/2019 Ot E88.01 TIOQX-9-VMGSCFUBPTV DEFICIENCY 03/17/2019 Ot F41.9 ANXI ETY DISORDER, UNSPECIFIED 03/17/2019 Ot M19.90 UNS PECIFIED OSTEOARTHRITIS, UNSPECIFIED 03/17/2019 KETTY KEATING, BRAD Aguilar Ot 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5 PRESENCE OF CORONARY ANGIOPLASTY IMPLANT 03/17/2019 BERNICE GOODSON Ot N28.1 CYST OF KIDNEY, ACQUIRED 03/17/2019 ALVAREZ CORREIA APRN Ot Z 09 ENCNTR FOR F/U EXAM AFT TRTMT FOR COND O 03/17/2019 CAS KEATING, Kody CISNEROS Ot E88.01 GCYEI-7-TGNQLEDSGNT DEFICIENCY 03/17/2019 CAS KEATING, Kody CISNEROS Ot I49 .5 SICK SINUS SYNDROME 03/17/2019 CAS KEATING, Kody CISNEROS Ot I51 .9 HEART DISEASE, UNSPECIFIED 03/17/2019 CAS KEATING, Kody CISNEROS Ot R06.02 SHORTNESS OF BREATH 03/17/2019 CAS KEATING, Kody CISNEROS Ot R07 .9 CHEST PAIN, UNSPECIFIED 03/17/2019 CAS KEATING, oKdy CISNEROS Ot Z95 .0 PRESENCE OF CARDIAC PACEMAKER 03/17/2019 CAS KEATING, Kody CISNEROS Ot E88.01 HSASC-7-VLQTTPIEWHY DEFICIENCY 03/17/2019 CAS KEATING, Kody CISNEROS Ot I49 .5 SICK SINUS SYNDROME 03/17/2019 CAS KEATING, Kody CISNEROS Ot I51 .9 HEART DISEASE, UNSPECIFIED 03/17/2019 CAS KEATING, Kody CISNEROS Ot R06.02 SHORTNESS OF BREATH 03/17/2019 CAS KEATING, Kody CISNEROS Ot R07 .9 CHEST PAIN, UNSPECIFIED 03/17/2019 CAS KEATING, Kody CISNEROS Ot Z95 .0 PRESENCE OF CARDIAC PACEMAKER 03/17/2019 BERNICE GOODSON Ot R11.10 VOMITING, UNSPECIFIED 03/17/2019 BERNICE GOODSON Ot R 51 HEADACHE 03/17/2019 BERNICE GOODSON Ot W19.XXXA UNSPECIFIED FALL, INITIAL ENCOUNTER 03/18/2019 SUSIE RAMIREZ MD Ot D47.3 ESSENTIAL (HEMORRHAGIC) THROMBOCYTHEMIA 03/18/2019 SUSIE RAMIREZ MD, Ot D64.9 ANEMIA, UNSPECIFIED 03/18/2019 SUSIE RAMIREZ MD, Ot D72.829 ELEVATED WHITE BLOOD CELL COUNT, UNSPECI 03/18/2019 SUSIE RAMIREZ MD Ot E88.01 [id number] DEFICIENCY 03/18/2019 SUSIE RAMIREZ MD, Ot F41.9 ANXIETY DISORDER, UNSPECIFIED 03/18/2019 SUSIE RAMIREZ MD Ot I10 ESSENTIAL (PRIMARY) HYPERTENSION 03/18/2019 SUSIE RAMIREZ MD Ot J44.9 CHRONIC OBSTRUCTIVE PULMONARY DISEASE, U 03/18/2019 SUSIE RAMIREZ MD Ot J45.909 UNSPECIFIED ASTHMA, UNCOMPLICATED 03/18/2019 SUSIE RAMIREZ MD Ot M17.0 BILATERAL PRIMARY OSTEOARTHRITIS OF KNEE 03/18/2019 SUSIE RAMIREZ MD Ot Z79.899 OTHER N[employer] P[employer] RANGER (CURRENT) DRUG THERAPY 03/18/2019 SUSIE RAMIREZ MD Ot Z95.0 PRESENCE OF CARDIAC PACEMAKER 03/18/2019 SUSIE RAMIREZ MD Ot D47.3 ESSENTIAL (HEMORRHAGIC) THROMBOCYTHEMIA 03/18/2019 SUSIE RAMIREZ MD Ot D64.9 ANEMIA, UNSPECIFIED 03/18/2019 SUSIE RAMIREZ MD Ot D72.829 ELEVATED WHITE BLOOD CELL COUNT, UNSPECI 03/18/2019 SUSIE RAMIREZ MD Ot E88.01 [id number] DEFICIENCY 03/18/2019 SUSIE RAMIREZ MD Ot F41.9 ANXIETY DISORDER, UNSPECIFIED 03/18/2019 SUSIE RAMIREZ MD Ot I10 ESSENTIAL (PRIMARY) HYPERTENSION 03/18/2019 SUSIE RAMIREZ MD Ot J44.9 CHRONIC OBSTRUCTIVE PULMONARY DISEASE, U 03/18/2019 SUSIE RAMIREZ MD Ot J45.909 UNSPECIFIED ASTHMA, UNCOMPLICATED 03/18/2019 SUSIE RAMIREZ MD Ot M17.0 BILATERAL PRIMARY OSTEOARTHRITIS OF KNEE 03/18/2019 SUSIE RAMIREZ MD Ot Z79.899 OTHER SNF (CURRENT) DRUG THERAPY 03/18/2019 SUSIE RAMIREZ MD Ot Z95.0 PRESENCE OF CARDIAC PACEMAKER 03/18/2019 SUSIE RAMIREZ MD Ot D47.3 ESSENTIAL (HEMORRHAGIC) THROMBOCYTHEMIA 03/18/2019 SUSIE RAMIREZ MD Ot D64.9 ANEMIA, UNSPECIFIED 03/18/2019 SUSIE RAMIREZ MD Ot D72.829 ELEVATED WHITE BLOOD CELL COUNT, UNSPECI 03/18/2019 SUSIE RAMIREZ MD Ot E88.01 [id number] DEFICIENCY 03/18/2019 SUSIE RAMIREZ MD Ot F41.9 ANXIETY DISORDER, UNSPECIFIED 03/18/2019 SUSIE RAMIREZ MD Ot I10 ESSENTIAL (PRIMARY) HYPERTENSION 03/18/2019 SUSIE RAMIREZ MD Ot J44.9 CHRONIC OBSTRUCTIVE PULMONARY DISEASE, U 03/18/2019 SUSIE RAMIREZ MD Ot J45.909 UNSPECIFIED ASTHMA, UNCOMPLICATED 03/18/2019 SUSIE RAMIREZ MD Ot M17.0 BILATERAL PRIMARY OSTEOARTHRITIS OF KNEE 03/18/2019 SUSIE RAMIREZ MD Ot Z79.899 OTHER N[employer] RANGER (CURRENT) DRUG THERAPY 03/18/2019 SUSIE RAMIREZ MD Ot Z95.0 PRESENCE OF CARDIAC PACEMAKER 03/23/2019 BERNICE GOODSON Ot Z12.31 ENCNTR SCREEN MAMMOGRAM FOR MALIGNANT NE 04/13/2019 BERNICE GOODSON Ot Z12.31 ENCNTR SCREEN MAMMOGRAM FOR MALIGNANT NE 2019 MARTA BLAIR APRN Ot E78.00 PURE HYPERCHOLESTEROLEMIA, UNSPECIFIED 2019 MARTA BLAIR APRN Ot F03.90 UNSPECIFIED DEMENTIA WITHOUT BEHAVIORAL 2019 MARTA BLAIR APRN Ot F41 .9 ANXIETY DISORDER, UNSPECIFIED 2019 MARTA BLAIR APRN Ot I10 ESSENTIAL (PRIMARY) HYPERTENSION 2019 MARTA BLAIR APRN Ot J44 .9 CHRONIC OBSTRUCTIVE PULMONARY DISEASE, U 2019 MARTA BLAIR APRN Ot K58 .9 IRRITABLE BOWEL SYNDROME WITHOUT DIARRHE 2019 MARTA BLAIR APRN Ot K59.00 CONSTIPATION, UNSPECIFIED 2019 MARTA BLAIR APRN Ot R10 .9 UNSPECIFIED ABDOMINAL PAIN 2019 MARTA BLAIR APRN Ot Z79.01 SNF (CURRENT) USE OF ANTICOAGULANT 2019 MARTA BLAIR APRN Ot Z79.51 N[employer]ANGER (CURRENT) USE OF INHALED STERO 2019 MARTA BLAIR APRN Ot Z79.52 N[employer]ANGER (CURRENT) USE OF SYSTEMIC STER 2019 MARTA BLAIR APRN Ot Z86.711 PERSONAL HISTORY OF PULMONARY EMBOLISM 2019 MARTA BLAIR APRN Ot Z88 .0 ALLERGY STATUS TO PENICILLIN 2019 MARTA BLAIR APRN Ot Z88 .1 ALLERGY STATUS TO OTHER ANTIBIOTIC AGENT 2019 MARTA BLAIR APRN Ot Z88 .5 ALLERGY STATUS TO NARCOTIC AGENT STATUS 2019 MARTA BLAIR APRN Ot Z88 .8 ALLERGY STATUS TO OTH DRUG/MEDS/BIOL SUB 2019 MARTA BLAIR APRN Ot Z90.49 ACQUIRED ABSENCE OF OTHER SPECIFIED PART 2019 MARTA BLAIR APRN Ot Z90.710 ACQUIRED ABSENCE OF BOTH CERVIX AND UTER 2019 MARTA BLAIR APRN Ot Z95 .0 PRESENCE OF CARDIAC PACEMAKER 05/16/2019 DURAND DO, VARGAS L Ot E78.0 0 PURE HYPERCHOLESTEROLEMIA, UNSPECIFIED 05/16/2019 DURAND DO, VARGAS L Ot F03.9 0 UNSPECIFIED DEMENTIA WITHOUT BEHAVIORAL 05/16/2019 DURAND DO, VARGAS L Ot F41.9 ANXIETY DISORDER, UNSPECIFIED 05/16/2019 DURAND DO, VARGAS L Ot I10 ESSENTIAL (PRIMARY) HYPERTENSION 05/16/2019 DURAND DO, VARGAS L Ot J44.9 CHRONIC OBSTRUCTIVE PULMONARY DISEASE, U 05/16/2019 DURAND DO, VARGAS L Ot K58.9 IRRITABLE BOWEL SYNDROME WITHOUT DIARRHE 05/16/2019 DURAND DO, VARGAS L Ot R06.2 WHEEZING 05/16/2019 DURAND DO, VARGAS L Ot Z79.0 1 SNF (CURRENT) USE OF ANTICOAGULANT 05/16/2019 DURAND DO, VARGAS L Ot Z79.5 1 N[employer]ER (CURRENT) USE OF INHALED STERO 05/16/2019 DURAND DO, VARGAS L Ot Z79.5 2 SNF (CURRENT) USE OF SYSTEMIC STER 05/16/2019 DURAND DO, VARGAS L Ot Z86.7 11 PERSONAL HISTORY OF PULMONARY EMBOLISM 05/16/2019 DURAND DO, VARGAS L Ot Z88.0 ALLERGY STATUS TO PENICILLIN 05/16/2019 DURAND DO, VARGAS L Ot Z88.1 ALLERGY STATUS TO OTHER ANTIBIOTIC AGENT 05/16/2019 DURAND DO, VARGAS L Ot Z88.5 ALLERGY STATUS TO NARCOTIC AGENT STATUS 05/16/2019 DURAND DO, VARGAS L Ot Z88.6 ALLERGY STATUS TO ANALGESIC AGENT STATUS 05/16/2019 DURAND DO, VARGAS L Ot Z90.4 9 ACQUIRED ABSENCE OF OTHER SPECIFIED PART 05/16/2019 DURAND DO, VARGAS L Ot Z90.7 10 ACQUIRED ABSENCE OF BOTH CERVIX AND UTER 05/16/2019 DURAND DO, VARGAS L Ot Z95.0 PRESENCE OF CARDIAC PACEMAKER 05/20/2019 CEFERINO STARK MD Ot M41. 85 OTHER FORMS OF SCOLIOSIS, THORACOLUMBAR 05/20/2019 CEFERINO STARK MD Ot M47.814 SPONDYLOSIS W/O MYELOPATHY OR RADICULOPA 05/20/2019 CEFERINO STARK MD Ot M47.816 SPONDYLOSIS W/O MYELOPATHY OR RADICULOPA 05/20/2019 CEFERINO STARK MD Ot M85. 88 OTH DISRD OF BONE DENSITY AND STRUCTURE, 05/20/2019 CEFERINO STARK MD Ot S22.000A WEDGE COMPRESSION FRACTURE OF UNSP THORA Procedures Code Description Performed By Per marsha On [id number] IN SERTION OF PACEMAKER LEAD INTO RIGHT A 07/17/2017 [id number] IN SERTION OF PACEMAKER LEAD INTO R VENTR 07/17/2017 [id number] IN SERT PACE. DUAL MAMADOU IN CHEST SUBCU/FA 07/17/2017 Results Test Result Range Complete blood count (CBC) with automate d white blood cell (WBC) differential - 02/24/16 20:33 Blood leukocytes automated count (number/volume) 11.9 10*3/uL 4.3-11.0 Blood erythrocytes automated count (number/volume) 4.47 10*6/uL 4.35-5.85 Venous blood hemoglobin measurement (mass/volume) 13.5 g/dL 11.5-16.0 Blood hematocrit (volume fraction) 39 % 35-52 Automated erythrocyte mean corpuscular volume 87 [ foz_us] 80-99 Automated erythrocyte mean corpuscular h emoglobin (mass per erythrocyte) 30 pg 25-34 Automated erythrocyte mean corpuscular h emoglobin concentration measurement (mass/volume) 35 g/dL 32-36 Automated erythrocyte distribution width ratio 13. 8 % 10.0- 14.5 Automated blood platelet count (count/volume) 416 10*3/uL [...] 10*3 1.0-4.0 Blood monocytes automated count (number/volume) 1. 0 10*3 0.0-1.0 Automated eosinophil count 0.4 10*3/uL 0 .0-0.3 Automated blood basophil count (count/volume) 0.1 10*3/uL 0.0-0.1 Whole blood basic metabolic panel - 02/06 01/21 20:33 Serum or plasma sodium measurement (moles/volume) 134 mmol/L 135-145 Serum or plasma potassium measurement (moles/volume) 4.0 mmol/L 3.6-5.0 Serum or plasma chloride measurement (moles/volume) 100 mmol/L 98-107 Carbon dioxide 19 mmol/L 21-32 Serum or plasma anion gap determination (moles/volume) 15 mmol/L 5-14 Serum or plasma urea nitrogen measurement (mass/volume ) 16 mg/dL 7-18 Serum or plasma creatinine measurement (mass/volume) 0.85 mg/dL 0.60-1.30 Serum or plasma urea nitrogen/creatinine mass ratio 19 NRG Serum or plasma creatinine measurement w ith calculation of estimated glomerular filtration rate > NRG Serum or plasma glucose measurement (mass/volume) 97 mg/dL 70-105 Serum or plasma calcium measurement (mass/volume) 10.1 mg/dL 8.5-10.1 Serum or plasma thyrotropin measurement by detection limit <=0.05 miu/l (units/volume) - 02/24/16 20:33 Serum or plasma thyrotropin measurement by detection limit <=0.05 miu/l (units/volume) 2.31 u[iU]/mL 0.35-4.94 Complete urinalysis with reflex to cultu re - 02/24/16 21:04 Urine color determination YELLOW NRG Urine clarity determination CLEAR NR G Urine pH measurement by test strip 8 5-9 Specific gravity of urine by test strip 1.010 1.016-1.022 Urine protein assay by test strip, semi-quantitative 2+ NEGATIVE Urine glucose detection by automated test strip NE GATIVE NEGATIVE Erythrocytes detection in urine sediment by light micr oscopy NEGATIVE NEGATIVE Urine ketones detection by automated test strip NE GATIVE NEGATIVE Urine nitrite detection by test strip NEGATIVE NEGATIVE Urine total bilirubin detection by test strip NEGA TIVE NEGATIVE Urine urobilinogen measurement by automated test strip (mass/volume) NORMAL NORMAL Urine leukocyte esterase detection by dipstick NEG ATIVE NEGATIVE Automated urine sediment erythrocyte cou nt by microscopy (number/high power field) NONE NRG Automated urine sediment leukocyte count by microscopy (number/high power field) NONE NRG Bacteria detection in urine sediment by light microsco py NEGATIVE NRG Squamous epithelial cells detection in u rine sediment by light microscopy RARE NRG Crystals detection in urine sediment by light microsco py NONE NRG Casts detection in urine sediment by light microscopy NONE NRG Mucus detection in urine sediment by light microscopy NEGATIVE NRG Complete urinalysis with reflex to culture NO NRG Complete blood count (CBC) with automate d white blood cell (WBC) differential - 07/13/17 11:10 Blood leukocytes automated count (number/volume) 20.1 10*3/uL 4.3-11.0 Blood erythrocytes automated count (number/volume) 4.42 10*6/uL 4.35-5.85 Venous blood hemoglobin measurement (mass/volume) 13.7 g/dL 11.5-16.0 Blood hematocrit (volume fraction) 40 % 35-52 Automated erythrocyte mean corpuscular volume 89 [ foz_us] 80-99 Automated erythrocyte mean corpuscular h emoglobin (mass per erythrocyte) 31 pg 25-34 Automated erythrocyte mean corpuscular h emoglobin concentration measurement (mass/volume) 35 g/dL 32-36 Automated erythrocyte distribution width ratio 13. 9 % 10.0- 14.5 Automated blood platelet count (count/volume) 478 10*3/uL [...] 10*3 1.0-4.0 Blood monocytes automated count (number/volume) 1. 1 10*3 0.0-1.0 Automated eosinophil count 0.1 10*3/uL 0 .0-0.3 Automated blood basophil count (count/volume) 0.0 10*3/uL 0.0-0.1 PT panel in platelet poor plasma by coag ulation assay - 07/13/17 11:10 Prothrombin time (PT) in platelet poor plasma by coagu lation assay 13.2 s 12.2-14.7 INR in platelet poor plasma or blood by coagulation as say 1.0 0.8-1.4 Activated partial thromboplastin time (a PTT) in platelet poor plasma bycoagulation assay - 07/13/17 11:10 Activated partial thromboplastin time (a PTT) in platelet poor plasma bycoagulation assay 20 s 24-35 Comprehensive metabolic panel - 07/13/17 11:10 Serum or plasma sodium measurement (moles/volume) 126 mmol/L 135-145 Serum or plasma potassium measurement (moles/volume) 5.2 mmol/L 3.6-5.0 Serum or plasma chloride measurement (moles/volume) 92 mmol/L 98-107 Carbon dioxide 20 mmol/L 21-32 Serum or plasma anion gap determination (moles/volume) 14 mmol/L 5-14 Serum or plasma urea nitrogen measurement (mass/volume ) 53 mg/dL 7-18 Serum or plasma creatinine measurement (mass/volume) 1.37 mg/dL 0.60-1.30 Serum or plasma urea nitrogen/creatinine mass ratio 39 NRG Serum or plasma creatinine measurement w ith calculation of estimated glomerular filtration rate 38 NRG Serum or plasma glucose measurement (mass/volume) 118 mg/dL 70-105 Serum or plasma calcium measurement (mass/volume) 10.3 mg/dL 8.5-10.1 Serum or plasma total bilirubin measurement (mass/volu me) 0.8 mg/dL 0.1-1.0 Serum or plasma alkaline phosphatase brigida surement (enzymatic activity/volume) 49 U/L 40-136 Serum or plasma aspartate aminotransfera se measurement (enzymatic activity/volume) 26 U/L 5-34 Serum or plasma alanine aminotransferase measurement (enzymatic activity/volume) 19 U/L 0-55 Serum or plasma protein measurement (mass/volume) 7.5 g/dL 6.4-8.2 Serum or plasma albumin measurement (mass/volume) 4.2 g/dL 3.2-4.5 Magnesium - 07/13/17 11:10 Magnesium 2.3 mg/dL 1.8-2.4 Serum or plasma creatine kinase measurem ent (enzymatic activity/volume) - 07/13/17 11:10 Serum or plasma creatine kinase measurem ent (enzymatic activity/volume) 131 U/L 29-168 Serum or plasma lithium measurement (mol es/volume) - 07/13/17 11:10 BNP level 497.8 pg/mL <100.0 Blood manual differential performed dete ction - 07/13/17 11:10 Blood monocytes/100 leukocytes 5 % NRG Manual blood segmented neutrophils/100 leukocytes 75 % NRG Manual blood lymphocytes/100 leukocytes 20 % NRG Blood erythrocyte morphology finding identification NORMAL NRG Serum or plasma creatine kinase MB measu rement (enzymatic activity/volume) - 07/13/17 11:10 Serum or plasma creatine kinase MB measu rement (enzymatic activity/volume) 3.6 ng/mL <6.6 Serum or plasma troponin i.cardiac measu rement (mass/volume) - 07/13/17 11:10 Serum or plasma troponin i.cardiac measurement (mass/v olume) < ng/mL <0.30 Serum or plasma thyrotropin measurement by detection limit <=0.05 miu/l (units/volume) - 07/13/17 11:10 Serum or plasma thyrotropin measurement by detection limit <=0.05 miu/l (units/volume) 1.08 u[iU]/mL 0.35-4.94 Blood lactic acid measurement (moles/vol ume) - 07/13/17 12:05 Blood lactic acid measurement (moles/volume) 2.16 mmol/L 0.50-2.00 Influenza virus A and B antigen detectio n - 07/13/17 12:05 FLU RESULT NEGATIVE FOR INFLUENZA A AND B ANTIGENS BY IA NRG Bacterial blood culture - 07/13/17 12:05 Bacterial blood culture NG NRG Complete urinalysis with reflex to cultu re - 07/13/17 12:17 Urine color determination YELLOW NRG Urine clarity determination CLEAR NR G Urine pH measurement by test strip 5 5-9 Specific gravity of urine by test strip 1.010 1.016-1.022 Urine protein assay by test strip, semi-quantitative NEGATIVE NEGATIVE Urine glucose detection by automated test strip NE GATIVE NEGATIVE Erythrocytes detection in urine sediment by light micr oscopy NEGATIVE NEGATIVE Urine ketones detection by automated test strip NE GATIVE NEGATIVE Urine nitrite detection by test strip NEGATIVE NEGATIVE Urine total bilirubin detection by test strip NEGA TIVE NEGATIVE Urine urobilinogen measurement by automated test strip (mass/volume) NORMAL NORMAL Urine leukocyte esterase detection by dipstick NEG ATIVE NEGATIVE Automated urine sediment erythrocyte cou nt by microscopy (number/high power field) NONE NRG Automated urine sediment leukocyte count by microscopy (number/high power field) NONE NRG Bacteria detection in urine sediment by light microsco py NEGATIVE NRG Squamous epithelial cells detection in u rine sediment by light microscopy RARE NRG Crystals detection in urine sediment by light microsco py NONE NRG Casts detection in urine sediment by light microscopy NONE NRG Mucus detection in urine sediment by light microscopy NEGATIVE NRG Complete urinalysis with reflex to culture NO NRG Bacterial blood culture - 07/13/17 12:41 Bacterial blood culture NG NRG Serum or plasma lactate measurement (mol es/volume) - 07/13/17 14:48 Serum or plasma lactate measurement (moles/volume) 2.37 mmol/L 0.50-2.00 Methicillin resistant Staphylococcus aur eus (MRSA) screening culture - 07/13/17 17:25 Methicillin resistant Staphylococcus aureus (MRSA) scr eening culture NEG NRG Complete blood count (CBC) with automate d white blood cell (WBC) differential - 07/13/17 20:05 Blood leukocytes automated count (number/volume) 20.4 10*3/uL 4.3-11.0 Blood erythrocytes automated count (number/volume) 3.94 10*6/uL 4.35-5.85 Venous blood hemoglobin measurement (mass/volume) 12.2 g/dL 11.5-16.0 Blood hematocrit (volume fraction) 35 % 35-52 Automated erythrocyte mean corpuscular volume 90 [ foz_us] 80-99 Automated erythrocyte mean corpuscular h emoglobin (mass per erythrocyte) 31 pg 25-34 Automated erythrocyte mean corpuscular h emoglobin concentration measurement (mass/volume) 35 g/dL 32-36 Automated erythrocyte distribution width ratio 13. 7 % 10.0- 14.5 Automated blood platelet count (count/volume) 442 10*3/uL [...] 10*3 1.0-4.0 Blood monocytes automated count (number/volume) 1. 0 10*3 0.0-1.0 Automated eosinophil count 0.0 10*3/uL 0 .0-0.3 Automated blood basophil count (count/volume) 0.0 10*3/uL 0.0-0.1 Whole blood basic metabolic panel - 10/23 20:05 Serum or plasma sodium measurement (moles/volume) 126 mmol/L 135-145 Serum or plasma potassium measurement (moles/volume) 5.0 mmol/L 3.6-5.0 Serum or plasma chloride measurement (moles/volume) 97 mmol/L 98-107 Carbon dioxide 18 mmol/L 21-32 Serum or plasma anion gap determination (moles/volume) 11 mmol/L 5-14 Serum or plasma urea nitrogen measurement (mass/volume ) 46 mg/dL 7-18 Serum or plasma creatinine measurement (mass/volume) 1.21 mg/dL 0.60-1.30 Serum or plasma urea nitrogen/creatinine mass ratio 38 NRG Serum or plasma creatinine measurement w ith calculation of estimated glomerular filtration rate 43 NRG Serum or plasma glucose measurement (mass/volume) 157 mg/dL 70-105 Serum or plasma calcium measurement (mass/volume) 9.1 mg/dL 8.5-10.1 Complete blood count (CBC) with automate d white blood cell (WBC) differential - 07/14/17 05:05 Blood leukocytes automated count (number/volume) 20.4 10*3/uL 4.3-11.0 Blood erythrocytes automated count (number/volume) 3.81 10*6/uL 4.35-5.85 Venous blood hemoglobin measurement (mass/volume) 11.8 g/dL 11.5-16.0 Blood hematocrit (volume fraction) 34 % 35-52 Automated erythrocyte mean corpuscular volume 90 [ foz_us] 80-99 Automated erythrocyte mean corpuscular h emoglobin (mass per erythrocyte) 31 pg 25-34 Automated erythrocyte mean corpuscular h emoglobin concentration measurement (mass/volume) 35 g/dL 32-36 Automated erythrocyte distribution width ratio 13. 5 % 10.0- 14.5 Automated blood platelet count (count/volume) 379 10*3/uL [...] 10*3 1.0-4.0 Blood monocytes automated count (number/volume) 1. 3 10*3 0.0-1.0 Automated eosinophil count 0.2 10*3/uL 0 .0-0.3 Automated blood basophil count (count/volume) 0.0 10*3/uL 0.0-0.1 Comprehensive metabolic panel - 07/14/17 05:05 Serum or plasma sodium measurement (moles/volume) 128 mmol/L 135-145 Serum or plasma potassium measurement (moles/volume) 4.8 mmol/L 3.6-5.0 Serum or plasma chloride measurement (moles/volume) 98 mmol/L 98-107 Carbon dioxide 22 mmol/L 21-32 Serum or plasma anion gap determination (moles/volume) 8 mmol/L 5-14 Serum or plasma urea nitrogen measurement (mass/volume ) 37 mg/dL 7-18 Serum or plasma creatinine measurement (mass/volume) 1.01 mg/dL 0.60-1.30 Serum or plasma urea nitrogen/creatinine mass ratio 37 NRG Serum or plasma creatinine measurement w ith calculation of estimated glomerular filtration rate 53 NRG Serum or plasma glucose measurement (mass/volume) 81 mg/dL 70-105 Serum or plasma calcium measurement (mass/volume) 9.3 mg/dL 8.5-10.1 Serum or plasma total bilirubin measurement (mass/volu me) 0.8 mg/dL 0.1-1.0 Serum or plasma alkaline phosphatase brigida surement (enzymatic activity/volume) 42 U/L 40-136 Serum or plasma aspartate aminotransfera se measurement (enzymatic activity/volume) 14 U/L 5-34 Serum or plasma alanine aminotransferase measurement (enzymatic activity/volume) 14 U/L 0-55 Serum or plasma protein measurement (mass/volume) 6.0 g/dL 6.4-8.2 Serum or plasma albumin measurement (mass/volume) 3.6 g/dL 3.2-4.5 Serum or plasma phosphate measurement (m ass/volume) - 07/14/17 05:05 Serum or plasma phosphate measurement (mass/volume) 3.0 mg/dL 2.3-4.7 Magnesium - 07/14/17 05:05 Magnesium 2.1 mg/dL 1.8-2.4 Complete blood count (CBC) with automate d white blood cell (WBC) differential - 07/15/17 05:00 Blood leukocytes automated count (number/volume) 15.9 10*3/uL 4.3-11.0 Blood erythrocytes automated count (number/volume) 4.17 10*6/uL 4.35-5.85 Venous blood hemoglobin measurement (mass/volume) 12.7 g/dL 11.5-16.0 Blood hematocrit (volume fraction) 38 % 35-52 Automated erythrocyte mean corpuscular volume 91 [ foz_us] 80-99 Automated erythrocyte mean corpuscular h emoglobin (mass per erythrocyte) 31 pg 25-34 Automated erythrocyte mean corpuscular h emoglobin concentration measurement (mass/volume) 34 g/dL 32-36 Automated erythrocyte distribution width ratio 13. 5 % 10.0- 14.5 Automated blood platelet count (count/volume) 371 10*3/uL [...] 10*3 1.0-4.0 Blood monocytes automated count (number/volume) 1. 0 10*3 0.0-1.0 Automated eosinophil count 0.6 10*3/uL 0 .0-0.3 Automated blood basophil count (count/volume) 0.1 10*3/uL 0.0-0.1 Whole blood basic metabolic panel - 12/23 05:00 Serum or plasma sodium measurement (moles/volume) 132 mmol/L 135-145 Serum or plasma potassium measurement (moles/volume) 4.5 mmol/L 3.6-5.0 Serum or plasma chloride measurement (moles/volume) 99 mmol/L 98-107 Carbon dioxide 21 mmol/L 21-32 Serum or plasma anion gap determination (moles/volume) 12 mmol/L 5-14 Serum or plasma urea nitrogen measurement (mass/volume ) 27 mg/dL 7-18 Serum or plasma creatinine measurement (mass/volume) 0.88 mg/dL 0.60-1.30 Serum or plasma urea nitrogen/creatinine mass ratio 31 NRG Serum or plasma creatinine measurement w ith calculation of estimated glomerular filtration rate > NRG Serum or plasma glucose measurement (mass/volume) 78 mg/dL 70-105 Serum or plasma calcium measurement (mass/volume) 8.9 mg/dL 8.5-10.1 Serum or plasma phosphate measurement (m ass/volume) - 07/15/17 05:00 Serum or plasma phosphate measurement (mass/volume) 3.1 mg/dL 2.3-4.7 Magnesium - 07/15/17 05:00 Magnesium 1.7 mg/dL 1.8-2.4 Complete blood count (CBC) with automate d white blood cell (WBC) differential - 07/16/17 05:05 Blood leukocytes automated count (number/volume) 14.1 10*3/uL 4.3-11.0 Blood erythrocytes automated count (number/volume) 3.95 10*6/uL 4.35-5.85 Venous blood hemoglobin measurement (mass/volume) 12.2 g/dL 11.5-16.0 Blood hematocrit (volume fraction) 36 % 35-52 Automated erythrocyte mean corpuscular volume 90 [ foz_us] 80-99 Automated erythrocyte mean corpuscular h emoglobin (mass per erythrocyte) 31 pg 25-34 Automated erythrocyte mean corpuscular h emoglobin concentration measurement (mass/volume) 34 g/dL 32-36 Automated erythrocyte distribution width ratio 13. 2 % 10.0- 14.5 Automated blood platelet count (count/volume) 366 10*3/uL [...] 10*3 1.0-4.0 Blood monocytes automated count (number/volume) 1. 1 10*3 0.0-1.0 Automated eosinophil count 0.7 10*3/uL 0 .0-0.3 Automated blood basophil count (count/volume) 0.1 10*3/uL 0.0-0.1 Whole blood basic metabolic panel - 01/23 05:05 Serum or plasma sodium measurement (moles/volume) 129 mmol/L 135-145 Serum or plasma potassium measurement (moles/volume) 4.2 mmol/L 3.6-5.0 Serum or plasma chloride measurement (moles/volume) 100 mmol/L 98-107 Carbon dioxide 21 mmol/L 21-32 Serum or plasma anion gap determination (moles/volume) 8 mmol/L 5-14 Serum or plasma urea nitrogen measurement (mass/volume ) 18 mg/dL 7-18 Serum or plasma creatinine measurement (mass/volume) 0.79 mg/dL 0.60-1.30 Serum or plasma urea nitrogen/creatinine mass ratio 23 NRG Serum or plasma creatinine measurement w ith calculation of estimated glomerular filtration rate > NRG Serum or plasma glucose measurement (mass/volume) 88 mg/dL 70-105 Serum or plasma calcium measurement (mass/volume) 8.7 mg/dL 8.5-10.1 Serum or plasma phosphate measurement (m ass/volume) - 07/16/17 05:05 Serum or plasma phosphate measurement (mass/volume) 2.7 mg/dL 2.3-4.7 Magnesium - 07/16/17 05:05 Magnesium 1.9 mg/dL 1.8-2.4 C DIFFICILE AG + TOXIN A/B. - 07/16/17 1 9:10 RESULTS NEGATIVE FOR ANTIGEN AND TOXIN A/B NRG Complete blood count (CBC) with automate d white blood cell (WBC) differential - 07/17/17 05:05 Blood leukocytes automated count (number/volume) 15.9 10*3/uL 4.3-11.0 Blood erythrocytes automated count (number/volume) 3.73 10*6/uL 4.35-5.85 Venous blood hemoglobin measurement (mass/volume) 11.7 g/dL 11.5-16.0 Blood hematocrit (volume fraction) 34 % 35-52 Automated erythrocyte mean corpuscular volume 91 [ foz_us] 80-99 Automated erythrocyte mean corpuscular h emoglobin (mass per erythrocyte) 31 pg 25-34 Automated erythrocyte mean corpuscular h emoglobin concentration measurement (mass/volume) 35 g/dL 32-36 Automated erythrocyte distribution width ratio 13. 3 % 10.0- 14.5 Automated blood platelet count (count/volume) 339 10*3/uL [...] 10*3 1.0-4.0 Blood monocytes automated count (number/volume) 1. 2 10*3 0.0-1.0 Automated eosinophil count 0.7 10*3/uL 0 .0-0.3 Automated blood basophil count (count/volume) 0.1 10*3/uL 0.0-0.1 Whole blood basic metabolic panel - 02/23 05:05 Serum or plasma sodium measurement (moles/volume) 133 mmol/L 135-145 Serum or plasma potassium measurement (moles/volume) 4.2 mmol/L 3.6-5.0 Serum or plasma chloride measurement (moles/volume) 103 mmol/L 98-107 Carbon dioxide 21 mmol/L 21-32 Serum or plasma anion gap determination (moles/volume) 9 mmol/L 5-14 Serum or plasma urea nitrogen measurement (mass/volume ) 12 mg/dL 7-18 Serum or plasma creatinine measurement (mass/volume) 0.75 mg/dL 0.60-1.30 Serum or plasma urea nitrogen/creatinine mass ratio 16 NRG Serum or plasma creatinine measurement w ith calculation of estimated glomerular filtration rate > NRG Serum or plasma glucose measurement (mass/volume) 91 mg/dL 70-105 Serum or plasma calcium measurement (mass/volume) 8.4 mg/dL 8.5-10.1 Serum or plasma phosphate measurement (m ass/volume) - 07/17/17 05:05 Serum or plasma phosphate measurement (mass/volume) 2.3 mg/dL 2.3-4.7 Magnesium - 07/17/17 05:05 Magnesium 1.6 mg/dL 1.8-2.4 Complete blood count (CBC) with automate d white blood cell (WBC) differential - 07/18/17 03:46 Blood leukocytes automated count (number/volume) 13.2 10*3/uL 4.3-11.0 Blood erythrocytes automated count (number/volume) 3.70 10*6/uL 4.35-5.85 Venous blood hemoglobin measurement (mass/volume) 11.2 g/dL 11.5-16.0 Blood hematocrit (volume fraction) 34 % 35-52 Automated erythrocyte mean corpuscular volume 91 [ foz_us] 80-99 Automated erythrocyte mean corpuscular h emoglobin (mass per erythrocyte) 30 pg 25-34 Automated erythrocyte mean corpuscular h emoglobin concentration measurement (mass/volume) 33 g/dL 32-36 Automated erythrocyte distribution width ratio 13. 4 % 10.0- 14.5 Automated blood platelet count (count/volume) 324 10*3/uL [...] 10*3 1.0-4.0 Blood monocytes automated count (number/volume) 1. 1 10*3 0.0-1.0 Automated eosinophil count 0.7 10*3/uL 0 .0-0.3 Automated blood basophil count (count/volume) 0.1 10*3/uL 0.0-0.1 Comprehensive metabolic panel - 07/18/17 03:46 Serum or plasma sodium measurement (moles/volume) 132 mmol/L 135-145 Serum or plasma potassium measurement (moles/volume) 4.0 mmol/L 3.6-5.0 Serum or plasma chloride measurement (moles/volume) 105 mmol/L 98-107 Carbon dioxide 20 mmol/L 21-32 Serum or plasma anion gap determination (moles/volume) 7 mmol/L 5-14 Serum or plasma urea nitrogen measurement (mass/volume ) 12 mg/dL 7-18 Serum or plasma creatinine measurement (mass/volume) 0.74 mg/dL 0.60-1.30 Serum or plasma urea nitrogen/creatinine mass ratio 16 NRG Serum or plasma creatinine measurement w ith calculation of estimated glomerular filtration rate > NRG Serum or plasma glucose measurement (mass/volume) 92 mg/dL 70-105 Serum or plasma calcium measurement (mass/volume) 8.5 mg/dL 8.5-10.1 Serum or plasma total bilirubin measurement (mass/volu me) 0.5 mg/dL 0.1-1.0 Serum or plasma alkaline phosphatase brigida surement (enzymatic activity/volume) 42 U/L 40-136 Serum or plasma aspartate aminotransfera se measurement (enzymatic activity/volume) 13 U/L 5-34 Serum or plasma alanine aminotransferase measurement (enzymatic activity/volume) 11 U/L 0-55 Serum or plasma protein measurement (mass/volume) 5.2 g/dL 6.4-8.2 Serum or plasma albumin measurement (mass/volume) 3.2 g/dL 3.2-4.5 Serum or plasma phosphate measurement (m ass/volume) - 07/18/17 03:46 Serum or plasma phosphate measurement (mass/volume) 2.7 mg/dL 2.3-4.7 Magnesium - 07/18/17 03:46 Magnesium 1.7 mg/dL 1.8-2.4 Complete blood count (CBC) with automate d white blood cell (WBC) differential - 09/26/17 23:18 Blood leukocytes automated count (number/volume) 15.1 10*3/uL 4.3-11.0 Blood erythrocytes automated count (number/volume) 3.92 10*6/uL 4.35-5.85 Venous blood hemoglobin measurement (mass/volume) 12.1 g/dL 11.5-16.0 Blood hematocrit (volume fraction) 35 % 35-52 Automated erythrocyte mean corpuscular volume 90 [ foz_us] 80-99 Automated erythrocyte mean corpuscular h emoglobin (mass per erythrocyte) 31 pg 25-34 Automated erythrocyte mean corpuscular h emoglobin concentration measurement (mass/volume) 35 g/dL 32-36 Automated erythrocyte distribution width ratio 13. 7 % 10.0- 14.5 Automated blood platelet count (count/volume) 399 10*3/uL [...] 10*3 1.0-4.0 Blood monocytes automated count (number/volume) 0. 9 10*3 0.0-1.0 Automated eosinophil count 0.3 10*3/uL 0 .0-0.3 Automated blood basophil count (count/volume) 0.0 10*3/uL 0.0-0.1 Comprehensive metabolic panel - 09/26/17 23:18 Serum or plasma sodium measurement (moles/volume) 131 mmol/L 135-145 Serum or plasma potassium measurement (moles/volume) 4.1 mmol/L 3.6-5.0 Serum or plasma chloride measurement (moles/volume) 98 mmol/L 98-107 Carbon dioxide 21 mmol/L 21-32 Serum or plasma anion gap determination (moles/volume) 12 mmol/L 5-14 Serum or plasma urea nitrogen measurement (mass/volume ) 27 mg/dL 7-18 Serum or plasma creatinine measurement (mass/volume) 1.02 mg/dL 0.60-1.30 Serum or plasma urea nitrogen/creatinine mass ratio 26 NRG Serum or plasma creatinine measurement w ith calculation of estimated glomerular filtration rate 53 NRG Serum or plasma glucose measurement (mass/volume) 149 mg/dL 70-105 Serum or plasma calcium measurement (mass/volume) 9.8 mg/dL 8.5-10.1 Serum or plasma total bilirubin measurement (mass/volu me) 0.5 mg/dL 0.1-1.0 Serum or plasma alkaline phosphatase brigida surement (enzymatic activity/volume) 55 U/L 40-136 Serum or plasma aspartate aminotransfera se measurement (enzymatic activity/volume) 14 U/L 5-34 Serum or plasma alanine aminotransferase measurement (enzymatic activity/volume) 15 U/L 0-55 Serum or plasma protein measurement (mass/volume) 6.7 g/dL 6.4-8.2 Serum or plasma albumin measurement (mass/volume) 4.0 g/dL 3.2-4.5 Complete urinalysis with reflex to cultu re - 09/27/17 00:50 Urine color determination YELLOW NRG Urine clarity determination CLEAR NR G Urine pH measurement by test strip 5 5-9 Specific gravity of urine by test strip 1.020 1.016-1.022 Urine protein assay by test strip, semi-quantitative 2+ NEGATIVE Urine glucose detection by automated test strip NE GATIVE NEGATIVE Erythrocytes detection in urine sediment by light micr oscopy 4+ NEGATIVE Urine ketones detection by automated test strip NE GATIVE NEGATIVE Urine nitrite detection by test strip NEGATIVE NEGATIVE Urine total bilirubin detection by test strip NEGA TIVE NEGATIVE Urine urobilinogen measurement by automated test strip (mass/volume) NORMAL NORMAL Urine leukocyte esterase detection by dipstick 2+ NEGATIVE Automated urine sediment erythrocyte cou nt by microscopy (number/high power field) [HPF] NRG Automated urine sediment leukocyte count by microscopy (number/high power field) [HPF] NRG Bacteria detection in urine sediment by light microsco py LARGE NRG Squamous epithelial cells detection in u rine sediment by light microscopy 2-5 NRG Crystals detection in urine sediment by light microsco py NONE NRG Casts detection in urine sediment by light microscopy NONE NRG Mucus detection in urine sediment by light microscopy NEGATIVE NRG Complete urinalysis with reflex to culture YES NRG Bacterial urine culture - 09/27/17 00:50 Bacterial urine culture [id number] NRG COLONY COUNT >100,000/ML NRG FTX;REPORTABLE SENSITIVITY REPORTED 09/28 07:30 NRG Bacterial susceptibility panel - 8 00:50 Gentamicin susceptibility test by minimum inhibitory c oncentration <= NRG Trimethoprim/sulfamethoxazole susceptibi lity test by minimum inhibitoryconcentration <= NRG Tobramycin susceptibility test by minimum inhibitory c oncentration <= NRG Cefazolin susceptibility test by minimum inhibitory co ncentration <= NRG Ceftriaxone susceptibility test by minimum inhibitory concentration <= NRG Piperacillin/tazobactam susceptibility t est by minimum inhibitory concentration <= NRG Ciprofloxacin susceptibility test by minimum inhibitor y concentration <= NRG Meropenem susceptibility test by minimum inhibitory co ncentration <= NRG Nitrofurantoin susceptibility test by mi nimum inhibitory concentration <= NRG Aztreonam susceptibility test by minimum inhibitory co ncentration <= NRG [id number] - 04/26/18 15:10 Serum or plasma urea nitrogen measurement (mass/volume ) 27 mg/dL 7-18 Serum or plasma creatinine measurement (mass/volume) 1.20 mg/dL 0.60-1.30 Serum or plasma urea nitrogen/creatinine mass ratio 23 NRG Serum or plasma creatinine measurement w ith calculation of estimated glomerular filtration rate 44 NRG Complete blood count (CBC) with automate d white blood cell (WBC) differential - 04/26/18 17:35 Blood leukocytes automated count (number/volume) 21.0 10*3/uL 4.3-11.0 Blood erythrocytes automated count (number/volume) 4.15 10*6/uL 4.35-5.85 Venous blood hemoglobin measurement (mass/volume) 12.3 g/dL 11.5-16.0 Blood hematocrit (volume fraction) 37 % 35-52 Automated erythrocyte mean corpuscular volume 88 [ foz_us] 80-99 Automated erythrocyte mean corpuscular h emoglobin (mass per erythrocyte) 30 pg 25-34 Automated erythrocyte mean corpuscular h emoglobin concentration measurement (mass/volume) 34 g/dL 32-36 Automated erythrocyte distribution width ratio 14. 1 % 10.0- 14.5 Automated blood platelet count (count/volume) 372 10*3/uL [...] 10*3 1.0-4.0 Blood monocytes automated count (number/volume) 1. 1 10*3 0.0-1.0 Automated eosinophil count 0.1 10*3/uL 0 .0-0.3 Automated blood basophil count (count/volume) 0.1 10*3/uL 0.0-0.1 Whole blood basic metabolic panel - 04/08 02/23 17:35 Serum or plasma sodium measurement (moles/volume) 124 mmol/L 135-145 Serum or plasma potassium measurement (moles/volume) 3.7 mmol/L 3.6-5.0 Serum or plasma chloride measurement (moles/volume) 89 mmol/L 98-107 Carbon dioxide 24 mmol/L 21-32 Serum or plasma anion gap determination (moles/volume) 11 mmol/L 5-14 Serum or plasma urea nitrogen measurement (mass/volume ) 25 mg/dL 7-18 Serum or plasma creatinine measurement (mass/volume) 1.12 mg/dL 0.60-1.30 Serum or plasma urea nitrogen/creatinine mass ratio 22 NRG Serum or plasma creatinine measurement w ith calculation of estimated glomerular filtration rate 47 NRG Serum or plasma glucose measurement (mass/volume) 136 mg/dL 70-105 Serum or plasma calcium measurement (mass/volume) 9.6 mg/dL 8.5-10.1 Blood manual differential performed dete ction - 04/26/18 17:35 Blood monocytes/100 leukocytes 3 % NRG Manual blood segmented neutrophils/100 leukocytes 79 % NRG Blood band neutrophils/100 leukocytes 2 % NRG Manual blood lymphocytes/100 leukocytes 16 % NRG Manual eosinophils/100 leukocytes in nose 0 % NRG Manual blood basophils/100 leukocytes 0 % NRG Blood erythrocyte morphology finding identification NORMAL NRG Serum or plasma troponin i.cardiac measu rement (mass/volume) - 04/26/18 17:35 Serum or plasma troponin i.cardiac measurement (mass/v olume) < ng/mL <0.30 Whole blood basic metabolic panel - 04/09 04:22 Serum or plasma sodium measurement (moles/volume) 129 mmol/L 135-145 Serum or plasma potassium measurement (moles/volume) 3.4 mmol/L 3.6-5.0 Serum or plasma chloride measurement (moles/volume) 94 mmol/L 98-107 Carbon dioxide 23 mmol/L 21-32 Serum or plasma anion gap determination (moles/volume) 12 mmol/L 5-14 Serum or plasma urea nitrogen measurement (mass/volume ) 23 mg/dL 7-18 Serum or plasma creatinine measurement (mass/volume) 0.90 mg/dL 0.60-1.30 Serum or plasma urea nitrogen/creatinine mass ratio 26 NRG Serum or plasma creatinine measurement w ith calculation of estimated glomerular filtration rate > NRG Serum or plasma glucose measurement (mass/volume) 99 mg/dL 70-105 Serum or plasma calcium measurement (mass/volume) 9.5 mg/dL 8.5-10.1 Complete blood count (CBC) with automate d white blood cell (WBC) differential - 04/27/18 04:22 Blood leukocytes automated count (number/volume) 17.1 10*3/uL 4.3-11.0 Blood erythrocytes automated count (number/volume) 3.80 10*6/uL 4.35-5.85 Venous blood hemoglobin measurement (mass/volume) 11.4 g/dL 11.5-16.0 Blood hematocrit (volume fraction) 34 % 35-52 Automated erythrocyte mean corpuscular volume 88 [ foz_us] 80-99 Automated erythrocyte mean corpuscular h emoglobin (mass per erythrocyte) 30 pg 25-34 Automated erythrocyte mean corpuscular h emoglobin concentration measurement (mass/volume) 34 g/dL 32-36 Automated erythrocyte distribution width ratio 14. 5 % 10.0- 14.5 Automated blood platelet count (count/volume) 381 10*3/uL [...] 10*3 1.0-4.0 Blood monocytes automated count (number/volume) 1. 0 10*3 0.0-1.0 Automated eosinophil count 0.3 10*3/uL 0 .0-0.3 Automated blood basophil count (count/volume) 0.0 10*3/uL 0.0-0.1 PT panel in platelet poor plasma by coag ulation assay - 04/27/18 04:22 Prothrombin time (PT) in platelet poor plasma by coagu lation assay 20.6 s 12.2-14.7 INR in platelet poor plasma or blood by coagulation as say 1.8 0.8-1.4 Complete blood count (CBC) with automate d white blood cell (WBC) differential - 04/28/18 04:05 Blood leukocytes automated count (number/volume) 13.1 10*3/uL 4.3-11.0 Blood erythrocytes automated count (number/volume) 3.58 10*6/uL 4.35-5.85 Venous blood hemoglobin measurement (mass/volume) 10.4 g/dL 11.5-16.0 Blood hematocrit (volume fraction) 32 % 35-52 Automated erythrocyte mean corpuscular volume 90 [ foz_us] 80-99 Automated erythrocyte mean corpuscular h emoglobin (mass per erythrocyte) 29 pg 25-34 Automated erythrocyte mean corpuscular h emoglobin concentration measurement (mass/volume) 32 g/dL 32-36 Automated erythrocyte distribution width ratio 14. 5 % 10.0- 14.5 Automated blood platelet count (count/volume) 333 10*3/uL [...] 10*3 1.0-4.0 Blood monocytes automated count (number/volume) 1. 0 10*3 0.0-1.0 Automated eosinophil count 0.5 10*3/uL 0 .0-0.3 Automated blood basophil count (count/volume) 0.1 10*3/uL 0.0-0.1 PT panel in platelet poor plasma by coag ulation assay - 04/28/18 04:05 Prothrombin time (PT) in platelet poor plasma by coagu lation assay 24.3 s 12.2-14.7 INR in platelet poor plasma or blood by coagulation as say 2.2 0.8-1.4 Whole blood basic metabolic panel - 04/09 06/25 04:05 Serum or plasma sodium measurement (moles/volume) 133 mmol/L 135-145 Serum or plasma potassium measurement (moles/volume) 3.5 mmol/L 3.6-5.0 Serum or plasma chloride measurement (moles/volume) 100 mmol/L 98-107 Carbon dioxide 23 mmol/L 21-32 Serum or plasma anion gap determination (moles/volume) 10 mmol/L 5-14 Serum or plasma urea nitrogen measurement (mass/volume ) 21 mg/dL 7-18 Serum or plasma creatinine measurement (mass/volume) 0.86 mg/dL 0.60-1.30 Serum or plasma urea nitrogen/creatinine mass ratio 24 NRG Serum or plasma creatinine measurement w ith calculation of estimated glomerular filtration rate > NRG Serum or plasma glucose measurement (mass/volume) 93 mg/dL 70-105 Serum or plasma calcium measurement (mass/volume) 9.3 mg/dL 8.5-10.1 Complete blood count (CBC) with automate d white blood cell (WBC) differential - 04/30/18 21:44 Blood leukocytes automated count (number/volume) 17.7 10*3/uL 4.3-11.0 Blood erythrocytes automated count (number/volume) 3.80 10*6/uL 4.35-5.85 Venous blood hemoglobin measurement (mass/volume) 11.1 g/dL 11.5-16.0 Blood hematocrit (volume fraction) 33 % 35-52 Automated erythrocyte mean corpuscular volume 88 [ foz_us] 80-99 Automated erythrocyte mean corpuscular h emoglobin (mass per erythrocyte) 29 pg 25-34 Automated erythrocyte mean corpuscular h emoglobin concentration measurement (mass/volume) 33 g/dL 32-36 Automated erythrocyte distribution width ratio 14. 2 % 10.0- 14.5 Automated blood platelet count (count/volume) 406 10*3/uL [...] 10*3 1.0-4.0 Blood monocytes automated count (number/volume) 0. 8 10*3 0.0-1.0 Automated eosinophil count 0.2 10*3/uL 0 .0-0.3 Automated blood basophil count (count/volume) 0.0 10*3/uL 0.0-0.1 Blood manual differential performed dete ction - 04/30/18 21:44 Blood monocytes/100 leukocytes 4 [...] 5-14 Serum or plasma urea nitrogen measurement (mass/volume ) 21 mg/dL 7-18 Serum or plasma creatinine measurement (mass/volume) 1.17 mg/dL 0.60-1.30 Serum or plasma urea nitrogen/creatinine mass ratio 18 NRG Serum or plasma creatinine measurement w ith calculation of estimated glomerular filtration rate 45 NRG Serum or plasma glucose measurement (mass/volume) 141 mg/dL 70-105 Serum or plasma calcium measurement (mass/volume) 9.3 mg/dL 8.5-10.1 Serum or plasma total bilirubin measurement (mass/volu me) 0.3 mg/dL 0.1-1.0 Serum or plasma alkaline phosphatase brigida surement (enzymatic activity/volume) 64 U/L 40-136 Serum or plasma aspartate aminotransfera se measurement (enzymatic activity/volume) 18 U/L 5-34 Serum or plasma alanine aminotransferase measurement (enzymatic activity/volume) 15 U/L 0-55 Serum or plasma protein measurement (mass/volume) 6.5 g/dL 6.4-8.2 Serum or plasma albumin measurement (mass/volume) 3.6 g/dL 3.2-4.5 CALCIUM CORRECTED 9.6 mg/dL 8.5-10.1 Serum or plasma lithium measurement (mol es/volume) - 04/30/18 21:44 BNP level 51.3 pg/mL <100.0 Serum or plasma troponin i.cardiac measu rement (mass/volume) - 04/30/18 21:44 Serum or plasma troponin i.cardiac measurement (mass/v olume) < ng/mL <0.30 Magnesium - 04/30/18 21:44 Magnesium 1.4 mg/dL 1.8-2.4 Complete urinalysis with reflex to cultu re - 04/30/18 22:51 Urine color determination YELLOW NRG Urine clarity determination CLEAR NR G Urine pH measurement by test strip 5 5-9 Specific gravity of urine by test strip 1.010 1.016-1.022 Urine protein assay by test strip, semi-quantitative NEGATIVE NEGATIVE Urine glucose detection by automated test strip NE GATIVE NEGATIVE Erythrocytes detection in urine sediment by light micr oscopy 2+ NEGATIVE Urine ketones detection by automated test strip NE GATIVE NEGATIVE Urine nitrite detection by test strip NEGATIVE NEGATIVE Urine total bilirubin detection by test strip NEGA TIVE NEGATIVE Urine urobilinogen measurement by automated test strip (mass/volume) NORMAL NORMAL Urine leukocyte esterase detection by dipstick 1+ NEGATIVE Automated urine sediment erythrocyte cou nt by microscopy (number/high power field) RARE NRG Automated urine sediment leukocyte count by microscopy (number/high power field) RARE NRG Bacteria detection in urine sediment by light microsco py NEGATIVE NRG Squamous epithelial cells detection in u rine sediment by light microscopy 2-5 NRG Crystals detection in urine sediment by light microsco py NONE NRG Casts detection in urine sediment by light microscopy NONE NRG Mucus detection in urine sediment by light microscopy NEGATIVE NRG Complete urinalysis with reflex to culture NO NRG Complete blood count (CBC) with automate d white blood cell (WBC) differential - 06/01/18 13:44 Blood leukocytes automated count (number/volume) 14.5 10*3/uL 4.3-11.0 Blood erythrocytes automated count (number/volume) 3.27 10*6/uL 4.35-5.85 Venous blood hemoglobin measurement (mass/volume) 9.8 g/dL 11.5-16.0 Blood hematocrit (volume fraction) 29 % 35-52 Automated erythrocyte mean corpuscular volume 88 [ foz_us] 80-99 Automated erythrocyte mean corpuscular h emoglobin (mass per erythrocyte) 30 pg 25-34 Automated erythrocyte mean corpuscular h emoglobin concentration measurement (mass/volume) 34 g/dL 32-36 Automated erythrocyte distribution width ratio 14. 4 % 10.0- 14.5 Automated blood platelet count (count/volume) 432 10*3/uL [...] 10*3 1.0-4.0 Blood monocytes automated count (number/volume) 1. 1 10*3 0.0-1.0 Automated eosinophil count 0.5 10*3/uL 0 .0-0.3 Automated blood basophil count (count/volume) 0.1 10*3/uL 0.0-0.1 Comprehensive metabolic panel - 06/01/18 13:44 Serum or plasma sodium measurement (moles/volume) 126 mmol/L 135-145 Serum or plasma potassium measurement (moles/volume) 3.9 mmol/L 3.6-5.0 Serum or plasma chloride measurement (moles/volume) 97 mmol/L 98-107 Carbon dioxide 17 mmol/L 21-32 Serum or plasma anion gap determination (moles/volume) 12 mmol/L 5-14 Serum or plasma urea nitrogen measurement (mass/volume ) 23 mg/dL 7-18 Serum or plasma creatinine measurement (mass/volume) 1.26 mg/dL 0.60-1.30 Serum or plasma urea nitrogen/creatinine mass ratio 18 NRG Serum or plasma creatinine measurement w ith calculation of estimated glomerular filtration rate 41 NRG Serum or plasma glucose measurement (mass/volume) 137 mg/dL 70-105 Serum or plasma calcium measurement (mass/volume) 9.0 mg/dL 8.5-10.1 Serum or plasma total bilirubin measurement (mass/volu me) 0.4 mg/dL 0.1-1.0 Serum or plasma alkaline phosphatase brigida surement (enzymatic activity/volume) 64 U/L 40-136 Serum or plasma aspartate aminotransfera se measurement (enzymatic activity/volume) 15 U/L 5-34 Serum or plasma alanine aminotransferase measurement (enzymatic activity/volume) 10 U/L 0-55 Serum or plasma protein measurement (mass/volume) 5.9 g/dL 6.4-8.2 Serum or plasma albumin measurement (mass/volume) 3.5 g/dL 3.2-4.5 CALCIUM CORRECTED 9.4 mg/dL 8.5-10.1 Blood manual differential performed dete ction - 06/01/18 13:44 Blood monocytes/100 leukocytes 6 % NRG Manual blood segmented neutrophils/100 leukocytes 71 % NRG Blood band neutrophils/100 leukocytes 4 % NRG Manual blood lymphocytes/100 leukocytes 18 % NRG Manual eosinophils/100 leukocytes in nose 1 % NRG Blood erythrocyte morphology finding identification NORMAL NRG Complete urinalysis with reflex to cultu re - 06/01/18 15:25 Urine color determination YELLOW NRG Urine clarity determination SLIGHTLY CLOUDY NRG Urine pH measurement by test strip 5 5-9 Specific gravity of urine by test strip 1.015 1.016-1.022 Urine protein assay by test strip, semi-quantitative NEGATIVE NEGATIVE Urine glucose detection by automated test strip NE GATIVE NEGATIVE Erythrocytes detection in urine sediment by light micr oscopy 1+ NEGATIVE Urine ketones detection by automated test strip NE GATIVE NEGATIVE Urine nitrite detection by test strip NEGATIVE NEGATIVE Urine total bilirubin detection by test strip NEGA TIVE NEGATIVE Urine urobilinogen measurement by automated test strip (mass/volume) NORMAL NORMAL Urine leukocyte esterase detection by dipstick 2+ NEGATIVE Automated urine sediment erythrocyte cou nt by microscopy (number/high power field) NONE NRG Automated urine sediment leukocyte count by microscopy (number/high power field) [HPF] NRG Bacteria detection in urine sediment by light microsco py LARGE NRG Squamous epithelial cells detection in u rine sediment by light microscopy NONE NRG Crystals detection in urine sediment by light microsco py NONE NRG Casts detection in urine sediment by light microscopy NONE NRG Mucus detection in urine sediment by light microscopy NEGATIVE NRG Complete urinalysis with reflex to culture YES NRG Bacterial urine culture - 06/01/18 15:25 Bacterial urine culture [id number] NRG COLONY COUNT >100,000/ML NRG FTX;REPORTABLE ID REPORTED 06/02/18 16:05 NRG FREE TEXT ENTRY 2 SENSITIVITY REPORTED 06/03/18 11 :05 NRG RML Sensitivity Panel - 06/01/18 15:25 Gentamicin susceptibility test by minimum inhibitory c oncentration <= NRG Trimethoprim/sulfamethoxazole susceptibi lity test by minimum inhibitoryconcentration <= NRG Levofloxacin susceptibility test by minimum inhibitory concentration <= NRG Ampicillin susceptibility test by minimum inhibitory c oncentration R NRG Cefazolin susceptibility test by minimum inhibitory co ncentration <= NRG Ceftriaxone susceptibility test by minimum inhibitory concentration <= NRG Ciprofloxacin susceptibility test by minimum inhibitor y concentration <= NRG Meropenem susceptibility test by minimum inhibitory co ncentration <= NRG Nitrofurantoin susceptibility test by mi nimum inhibitory concentration <= NRG Amoxicillin and clavulanate potassium susc SINA <= NRG Automated blood complete blood count (he mogram) panel - 06/15/18 08:28 Blood leukocytes automated count (number/volume) 15.1 10*3/uL 4.3-11.0 Blood erythrocytes automated count (number/volume) 3.94 10*6/uL 4.35-5.85 Venous blood hemoglobin measurement (mass/volume) 11.2 g/dL 11.5-16.0 Blood hematocrit (volume fraction) 35 % 35-52 Automated erythrocyte mean corpuscular volume 89 [ foz_us] 80-99 Automated erythrocyte mean corpuscular h emoglobin (mass per erythrocyte) 28 pg 25-34 Automated erythrocyte mean corpuscular h emoglobin concentration measurement (mass/volume) 32 g/dL 32-36 Automated erythrocyte distribution width ratio 14. 0 % 10.0- 14.5 Automated blood platelet count (count/volume) 552 10*3/uL 130-400 Automated blood platelet mean volume measurement 8.9 [foz_us] 7.4-10.4 Whole blood basic metabolic panel - 01/24 08:28 Serum or plasma sodium measurement (moles/volume) 133 mmol/L 135-145 Serum or plasma potassium measurement (moles/volume) 3.6 mmol/L 3.6-5.0 Serum or plasma chloride measurement (moles/volume) 98 mmol/L 98-107 Carbon dioxide 23 mmol/L 21-32 Serum or plasma anion gap determination (moles/volume) 12 mmol/L 5-14 Serum or plasma urea nitrogen measurement (mass/volume ) 16 mg/dL 7-18 Serum or plasma creatinine measurement (mass/volume) 1.18 mg/dL 0.60-1.30 Serum or plasma urea nitrogen/creatinine mass ratio 14 NRG Serum or plasma creatinine measurement w ith calculation of estimated glomerular filtration rate 45 NRG Serum or plasma glucose measurement (mass/volume) 110 mg/dL 70-105 Serum or plasma calcium measurement (mass/volume) 9.9 mg/dL 8.5-10.1 Complete blood count (CBC) with automate d white blood cell (WBC) differential - 08/11/18 07:01 Blood leukocytes automated count (number/volume) 22.3 10*3/uL 4.3-11.0 Blood erythrocytes automated count (number/volume) 4.68 10*6/uL 4.35-5.85 Venous blood hemoglobin measurement (mass/volume) 13.1 g/dL 11.5-16.0 Blood hematocrit (volume fraction) 40 % 35-52 Automated erythrocyte mean corpuscular volume 86 [ foz_us] 80-99 Automated erythrocyte mean corpuscular h emoglobin (mass per erythrocyte) 28 pg 25-34 Automated erythrocyte mean corpuscular h emoglobin concentration measurement (mass/volume) 33 g/dL 32-36 Automated erythrocyte distribution width ratio 14. 9 % 10.0- 14.5 Automated blood platelet count (count/volume) 500 10*3/uL [...] 10*3 1.0-4.0 Blood monocytes automated count (number/volume) 1. 4 10*3 0.0-1.0 Automated eosinophil count 0.1 10*3/uL 0 .0-0.3 Automated blood basophil count (count/volume) 0.0 10*3/uL 0.0-0.1 PT panel in platelet poor plasma by coag ulation assay - 08/11/18 07:01 Prothrombin time (PT) in platelet poor plasma by coagu lation assay 13.7 s 12.2-14.7 INR in platelet poor plasma or blood by coagulation as say 1.0 0.8-1.4 Activated partial thromboplastin time (a PTT) in platelet poor plasma bycoagulation assay - 08/11/18 07:01 Activated partial thromboplastin time (a PTT) in platelet poor plasma bycoagulation assay 22 s 24-35 Blood manual differential performed dete ction - 08/11/18 07:01 Blood monocytes/100 leukocytes 4 % NRG Manual blood segmented neutrophils/100 leukocytes 73 % NRG Blood band neutrophils/100 leukocytes 1 % NRG Manual blood lymphocytes/100 leukocytes 22 % NRG Manual eosinophils/100 leukocytes in nose 0 % NRG Manual blood basophils/100 leukocytes 0 % NRG Blood ovalocytes detection by light microscopy [facility] Comprehensive metabolic panel - 08/11/18 07:30 Serum or plasma sodium measurement (moles/volume) 130 mmol/L 135-145 Serum or plasma potassium measurement (moles/volume) 4.1 mmol/L 3.6-5.0 Serum or plasma chloride measurement (moles/volume) 95 mmol/L 98-107 Carbon dioxide 25 mmol/L 21-32 Serum or plasma anion gap determination (moles/volume) 10 mmol/L 5-14 Serum or plasma urea nitrogen measurement (mass/volume ) 25 mg/dL 7-18 Serum or plasma creatinine measurement (mass/volume) 1.05 mg/dL 0.60-1.30 Serum or plasma urea nitrogen/creatinine mass ratio 24 NRG Serum or plasma creatinine measurement w ith calculation of estimated glomerular filtration rate 51 NRG Serum or plasma glucose measurement (mass/volume) 88 mg/dL 70-105 Serum or plasma calcium measurement (mass/volume) 10.4 mg/dL 8.5-10.1 Serum or plasma total bilirubin measurement (mass/volu me) 0.5 mg/dL 0.1-1.0 Serum or plasma alkaline phosphatase brigida surement (enzymatic activity/volume) 64 U/L 40-136 Serum or plasma aspartate aminotransfera se measurement (enzymatic activity/volume) 20 U/L 5-34 Serum or plasma alanine aminotransferase measurement (enzymatic activity/volume) 14 U/L 0-55 Serum or plasma protein measurement (mass/volume) 7.4 g/dL 6.4-8.2 Serum or plasma albumin measurement (mass/volume) 4.2 g/dL 3.2-4.5 CALCIUM CORRECTED 10.2 mg/dL 8.5-10.1 Complete blood count (CBC) with automate d white blood cell (WBC) differential - 08/12/18 12:00 Blood leukocytes automated count (number/volume) 17.1 10*3/uL 4.3-11.0 Blood erythrocytes automated count (number/volume) 3.65 10*6/uL 4.35-5.85 Venous blood hemoglobin measurement (mass/volume) 10.1 g/dL 11.5-16.0 Blood hematocrit (volume fraction) 31 % 35-52 Automated erythrocyte mean corpuscular volume 85 [ foz_us] 80-99 Automated erythrocyte mean corpuscular h emoglobin (mass per erythrocyte) 28 pg 25-34 Automated erythrocyte mean corpuscular h emoglobin concentration measurement (mass/volume) 33 g/dL 32-36 Automated erythrocyte distribution width ratio 14. 9 % 10.0- 14.5 Automated blood platelet count (count/volume) 420 10*3/uL 130-400 Automated blood platelet mean volume measurement 9.0 [foz_us] 7.4-10.4 Automated blood neutrophils/100 leukocytes 63 % 42-75 Automated blood lymphocytes/100 leukocytes 27 % 12-44 Blood monocytes/100 leukocytes 8 % 0-12 Automated blood eosinophils/100 leukocytes 2 % 0-10 Automated blood basophils/100 leukocytes 0 % 0-10 Blood neutrophils automated count (number/volume) 10.7 10*3 1.8-7.8 Blood lymphocytes automated count (number/volume) 4.7 10*3 1.0-4.0 Blood monocytes automated count (number/volume) 1. 3 10*3 0.0-1.0 Automated eosinophil count 0.4 10*3/uL 0 .0-0.3 Automated blood basophil count (count/volume) 0.0 10*3/uL 0.0-0.1 Comprehensive metabolic panel - 08/12/18 12:00 Serum or plasma sodium measurement (moles/volume) 134 mmol/L 135-145 Serum or plasma potassium measurement (moles/volume) 2.7 mmol/L 3.6-5.0 Serum or plasma chloride measurement (moles/volume) 104 mmol/L 98-107 Carbon dioxide 22 mmol/L 21-32 Serum or plasma anion gap determination (moles/volume) 8 mmol/L 5-14 Serum or plasma urea nitrogen measurement (mass/volume ) 22 mg/dL 7-18 Serum or plasma creatinine measurement (mass/volume) 0.95 mg/dL 0.60-1.30 Serum or plasma urea nitrogen/creatinine mass ratio 23 NRG Serum or plasma creatinine measurement w ith calculation of estimated glomerular filtration rate 57 NRG Serum or plasma glucose measurement (mass/volume) 84 mg/dL 70-105 Serum or plasma calcium measurement (mass/volume) 7.6 mg/dL 8.5-10.1 Serum or plasma total bilirubin measurement (mass/volu me) 0.3 mg/dL 0.1-1.0 Serum or plasma alkaline phosphatase brigida surement (enzymatic activity/volume) 49 U/L 40-136 Serum or plasma aspartate aminotransfera se measurement (enzymatic activity/volume) 14 U/L 5-34 Serum or plasma alanine aminotransferase measurement (enzymatic activity/volume) 10 U/L 0-55 Serum or plasma protein measurement (mass/volume) 5.2 g/dL 6.4-8.2 Serum or plasma albumin measurement (mass/volume) 3.1 g/dL 3.2-4.5 CALCIUM CORRECTED 8.3 mg/dL 8.5-10.1 Blood manual differential performed dete ction - 08/12/18 12:00 Blood monocytes/100 leukocytes 5 % NRG Manual blood segmented neutrophils/100 leukocytes 70 % NRG Manual blood lymphocytes/100 leukocytes 24 % NRG Manual eosinophils/100 leukocytes in nose 1 % NRG Blood erythrocyte morphology finding identification NORMAL NRG Complete blood count (CBC) with automate d white blood cell (WBC) differential - 08/30/18 11:05 Blood leukocytes automated count (number/volume) 13.3 10*3/uL 4.3-11.0 Blood erythrocytes automated count (number/volume) 4.14 10*6/uL 4.35-5.85 Venous blood hemoglobin measurement (mass/volume) 11.4 g/dL 11.5-16.0 Blood hematocrit (volume fraction) 35 % 35-52 Automated erythrocyte mean corpuscular volume 84 [ foz_us] 80-99 Automated erythrocyte mean corpuscular h emoglobin (mass per erythrocyte) 28 pg 25-34 Automated erythrocyte mean corpuscular h emoglobin concentration measurement (mass/volume) 33 g/dL 32-36 Automated erythrocyte distribution width ratio 15. 3 % 10.0- 14.5 Automated blood platelet count (count/volume) 423 10*3/uL 130-400 Automated blood platelet mean volume measurement 9.3 [foz_us] 7.4-10.4 Automated blood neutrophils/100 leukocytes 61 % 42-75 Automated blood lymphocytes/100 leukocytes 26 % 12-44 Blood monocytes/100 leukocytes 9 % 0-12 Automated blood eosinophils/100 leukocytes 5 % 0-10 Automated blood basophils/100 leukocytes 0 % 0-10 Blood neutrophils automated count (number/volume) 8.0 10*3 1.8-7.8 Blood lymphocytes automated count (number/volume) 3.4 10*3 1.0-4.0 Blood monocytes automated count (number/volume) 1. 1 10*3 0.0-1.0 Automated eosinophil count 0.7 10*3/uL 0 .0-0.3 Automated blood basophil count (count/volume) 0.1 10*3/uL 0.0-0.1 PT panel in platelet poor plasma by coag ulation assay - 08/30/18 11:05 Prothrombin time (PT) in platelet poor plasma by coagu lation assay 13.8 s 12.2-14.7 INR in platelet poor plasma or blood by coagulation as say 1.0 0.8-1.4 Activated partial thromboplastin time (a PTT) in platelet poor plasma bycoagulation assay - 08/30/18 11:05 Activated partial thromboplastin time (a PTT) in platelet poor plasma bycoagulation assay 26 s 24-35 Comprehensive metabolic panel - 08/30/18 11:05 Serum or plasma sodium measurement (moles/volume) 129 mmol/L 135-145 Serum or plasma potassium measurement (moles/volume) 4.2 mmol/L 3.6-5.0 Serum or plasma chloride measurement (moles/volume) 96 mmol/L 98-107 Carbon dioxide 23 mmol/L 21-32 Serum or plasma anion gap determination (moles/volume) 10 mmol/L 5-14 Serum or plasma urea nitrogen measurement (mass/volume ) 25 mg/dL 7-18 Serum or plasma creatinine measurement (mass/volume) 1.29 mg/dL 0.60-1.30 Serum or plasma urea nitrogen/creatinine mass ratio 19 NRG Serum or plasma creatinine measurement w ith calculation of estimated glomerular filtration rate 40 NRG Serum or plasma glucose measurement (mass/volume) 117 mg/dL 70-105 Serum or plasma calcium measurement (mass/volume) 9.3 mg/dL 8.5-10.1 Serum or plasma total bilirubin measurement (mass/volu me) 0.4 mg/dL 0.1-1.0 Serum or plasma alkaline phosphatase brigida surement (enzymatic activity/volume) 63 U/L 40-136 Serum or plasma aspartate aminotransfera se measurement (enzymatic activity/volume) 14 U/L 5-34 Serum or plasma alanine aminotransferase measurement (enzymatic activity/volume) 9 U/L 0-55 Serum or plasma protein measurement (mass/volume) 6.1 g/dL 6.4-8.2 Serum or plasma albumin measurement (mass/volume) 3.7 g/dL 3.2-4.5 CALCIUM CORRECTED 9.5 mg/dL 8.5-10.1 Magnesium - 08/30/18 11:05 Magnesium 1.7 mg/dL 1.8-2.4 Serum or plasma troponin i.cardiac measu rement (mass/volume) - 08/30/18 11:05 Serum or plasma troponin i.cardiac measurement (mass/v olume) < ng/mL <0.028 Myoglobin, serum - 08/30/18 11:05 Myoglobin, serum 61.3 ng/mL 10.0-92.0 Lipase - 08/30/18 11:05 Lipase 26 U/L 8-78 Serum or plasma lithium measurement (mol es/volume) - 08/30/18 11:05 BNP level 31.6 pg/mL <100.0 Blood lactic acid measurement (moles/vol ume) - 08/30/18 11:05 Blood lactic acid measurement (moles/volume) 2.11 mmol/L 0.50-2.00 Bacterial blood culture - 08/30/18 11:05 Bacterial blood culture NG NRG Bacterial blood culture - 08/30/18 11:17 Bacterial blood culture NG NRG Complete urinalysis with reflex to cultu re - 08/30/18 11:33 Urine color determination YELLOW NRG Urine clarity determination CLEAR NR G Urine pH measurement by test strip 5 5-9 Specific gravity of urine by test strip 1.020 1.016-1.022 Urine protein assay by test strip, semi-quantitative 1+ NEGATIVE Urine glucose detection by automated test strip NE GATIVE NEGATIVE Erythrocytes detection in urine sediment by light micr oscopy NEGATIVE NEGATIVE Urine ketones detection by automated test strip NE GATIVE NEGATIVE Urine nitrite detection by test strip NEGATIVE NEGATIVE Urine total bilirubin detection by test strip 1+ NEGATIVE Urine urobilinogen measurement by automated test strip (mass/volume) NORMAL NORMAL Urine leukocyte esterase detection by dipstick NEG ATIVE NEGATIVE Automated urine sediment erythrocyte cou nt by microscopy (number/high power field) NONE NRG Automated urine sediment leukocyte count by microscopy (number/high power field) [HPF] NRG Bacteria detection in urine sediment by light microsco py TRACE NRG Squamous epithelial cells detection in u rine sediment by light microscopy 0-2 NRG Crystals detection in urine sediment by light microsco py NONE NRG Casts detection in urine sediment by light microscopy PRESENT NRG Mucus detection in urine sediment by light microscopy NEGATIVE NRG Complete urinalysis with reflex to culture NO NRG Hyaline casts detection in urine sediment by light sina roscopy 5-10 NRG Serum or plasma lactate measurement (mol es/volume) - 08/30/18 14:20 Serum or plasma lactate measurement (moles/volume) 1.41 mmol/L 0.50-2.00 Serum or plasma troponin i.cardiac measu rement (mass/volume) - 08/30/18 14:20 Serum or plasma troponin i.cardiac measurement (mass/v olume) < ng/mL <0.028 Complete blood count (CBC) with automate d white blood cell (WBC) differential - 10/05/18 10:20 Blood leukocytes automated count (number/volume) 10.6 10*3/uL 4.3-11.0 Blood erythrocytes automated count (number/volume) 3.84 10*6/uL 4.35-5.85 Venous blood hemoglobin measurement (mass/volume) 10.5 g/dL 11.5-16.0 Blood hematocrit (volume fraction) 33 % 35-52 Automated erythrocyte mean corpuscular volume 85 [ foz_us] 80-99 Automated erythrocyte mean corpuscular h emoglobin (mass per erythrocyte) 27 pg 25-34 Automated erythrocyte mean corpuscular h emoglobin concentration measurement (mass/volume) 32 g/dL 32-36 Automated erythrocyte distribution width ratio 15. 5 % 10.0- 14.5 Automated blood platelet count (count/volume) 358 10*3/uL 130-400 Automated blood platelet mean volume measurement 9.7 [foz_us] 7.4-10.4 Automated blood neutrophils/100 leukocytes 68 % 42-75 Automated blood lymphocytes/100 leukocytes 20 % 12-44 Blood monocytes/100 leukocytes 8 % 0-12 Automated blood eosinophils/100 leukocytes 4 % 0-10 Automated blood basophils/100 leukocytes 0 % 0-10 Blood neutrophils automated count (number/volume) 7.2 10*3 1.8-7.8 Blood lymphocytes automated count (number/volume) 2.1 10*3 1.0-4.0 Blood monocytes automated count (number/volume) 0. 9 10*3 0.0-1.0 Automated eosinophil count 0.4 10*3/uL 0 .0-0.3 Automated blood basophil count (count/volume) 0.0 10*3/uL 0.0-0.1 PT panel in platelet poor plasma by coag ulation assay - 10/05/18 10:20 Prothrombin time (PT) in platelet poor plasma by coagu lation assay 16.4 s 12.2-14.7 INR in platelet poor plasma or blood by coagulation as say 1.3 0.8-1.4 Activated partial thromboplastin time (a PTT) in platelet poor plasma bycoagulation assay - 10/05/18 10:20 Activated partial thromboplastin time (a PTT) in platelet poor plasma bycoagulation assay 33 s 24-35 Comprehensive metabolic panel - 10/05/18 10:20 Serum or plasma sodium measurement (moles/volume) 130 mmol/L 135-145 Serum or plasma potassium measurement (moles/volume) 4.6 mmol/L 3.6-5.0 Serum or plasma chloride measurement (moles/volume) 100 mmol/L 98-107 Carbon dioxide 21 mmol/L 21-32 Serum or plasma anion gap determination (moles/volume) 9 mmol/L 5-14 Serum or plasma urea nitrogen measurement (mass/volume ) 18 mg/dL 7-18 Serum or plasma creatinine measurement (mass/volume) 1.05 mg/dL 0.60-1.30 Serum or plasma urea nitrogen/creatinine mass ratio 17 NRG Serum or plasma creatinine measurement w ith calculation of estimated glomerular filtration rate 51 NRG Serum or plasma glucose measurement (mass/volume) 143 mg/dL 70-105 Serum or plasma calcium measurement (mass/volume) 9.2 mg/dL 8.5-10.1 Serum or plasma total bilirubin measurement (mass/volu me) 0.3 mg/dL 0.1-1.0 Serum or plasma alkaline phosphatase brigida surement (enzymatic activity/volume) 53 U/L 40-136 Serum or plasma aspartate aminotransfera se measurement (enzymatic activity/volume) 21 U/L 5-34 Serum or plasma alanine aminotransferase measurement (enzymatic activity/volume) 11 U/L 0-55 Serum or plasma protein measurement (mass/volume) 6.2 g/dL 6.4-8.2 Serum or plasma albumin measurement (mass/volume) 3.6 g/dL 3.2-4.5 CALCIUM CORRECTED 9.5 mg/dL 8.5-10.1 Magnesium - 10/05/18 10:20 Magnesium 2.1 mg/dL 1.8-2.4 Complete urinalysis with reflex to cultu re - 10/05/18 10:20 Urine color determination YELLOW NRG Urine clarity determination SLIGHTLY CLOUDY NRG Urine pH measurement by test strip 5 5-9 Specific gravity of urine by test strip 1.015 1.016-1.022 Urine protein assay by test strip, semi-quantitative 1+ NEGATIVE Urine glucose detection by automated test strip NE GATIVE NEGATIVE Erythrocytes detection in urine sediment by light micr oscopy 1+ NEGATIVE Urine ketones detection by automated test strip NE GATIVE NEGATIVE Urine nitrite detection by test strip NEGATIVE NEGATIVE Urine total bilirubin detection by test strip NEGA TIVE NEGATIVE Urine urobilinogen measurement by automated test strip (mass/volume) NORMAL NORMAL Urine leukocyte esterase detection by dipstick 1+ NEGATIVE Automated urine sediment erythrocyte cou nt by microscopy (number/high power field) [HPF] NRG Automated urine sediment leukocyte count by microscopy (number/high power field) [HPF] NRG Bacteria detection in urine sediment by light microsco py TRACE NRG Squamous epithelial cells detection in u rine sediment by light microscopy 2-5 NRG Crystals detection in urine sediment by light microsco py NONE NRG Casts detection in urine sediment by light microscopy PRESENT NRG Mucus detection in urine sediment by light microscopy MODERATE NRG Complete urinalysis with reflex to culture NO NRG Hyaline casts detection in urine sediment by light sina roscopy 25-50 NRG Renal epithelial cells detection in urin e sediment by light microscopy RARE NRG Serum or plasma troponin i.cardiac measu rement (mass/volume) - 10/05/18 10:20 Serum or plasma troponin i.cardiac measurement (mass/v olume) < ng/mL <0.028 Serum or plasma thyrotropin measurement by detection limit <=0.05 miu/l (units/volume) - 10/05/18 10:20 Serum or plasma thyrotropin measurement by detection limit <=0.05 miu/l (units/volume) 1.41 u[iU]/mL 0.35-4.94 Serum or plasma lithium measurement (mol es/volume) - 10/05/18 10:20 BNP level 139.1 pg/mL <100.0 Complete blood count (CBC) with automate d white blood cell (WBC) differential - 03/04/19 17:00 Blood leukocytes automated count (number/volume) 11.9 10*3/uL 4.3-11.0 Blood erythrocytes automated count (number/volume) 4.39 10*6/uL 4.35-5.85 Venous blood hemoglobin measurement (mass/volume) 12.8 g/dL 11.5-16.0 Blood hematocrit (volume fraction) 40 % 35-52 Automated erythrocyte mean corpuscular volume 91 [ foz_us] 80-99 Automated erythrocyte mean corpuscular h emoglobin (mass per erythrocyte) 29 pg 25-34 Automated erythrocyte mean corpuscular h emoglobin concentration measurement (mass/volume) 32 g/dL 32-36 Automated erythrocyte distribution width ratio 14. 9 % 10.0- 14.5 Automated blood platelet count (count/volume) 386 10*3/uL 130-400 Automated blood platelet mean volume measurement 9.6 [foz_us] 7.4-10.4 Automated blood neutrophils/100 leukocytes 64 % 42-75 Automated blood lymphocytes/100 leukocytes 23 % 12-44 Blood monocytes/100 leukocytes 8 % 0-12 Automated blood eosinophils/100 leukocytes 5 % 0-10 Automated blood basophils/100 leukocytes 0 % 0-10 Blood neutrophils automated count (number/volume) 7.6 10*3 1.8-7.8 Blood lymphocytes automated count (number/volume) 2.7 10*3 1.0-4.0 Blood monocytes automated count (number/volume) 1. 0 10*3 0.0-1.0 Automated eosinophil count 0.6 10*3/uL 0 .0-0.3 Automated blood basophil count (count/volume) 0.0 10*3/uL 0.0-0.1 Comprehensive metabolic panel - 03/04/19 17:00 Serum or plasma sodium measurement (moles/volume) 136 mmol/L 135-145 Serum or plasma potassium measurement (moles/volume) 4.3 mmol/L 3.6-5.0 Serum or plasma chloride measurement (moles/volume) 105 mmol/L 98-107 Carbon dioxide 22 mmol/L 21-32 Serum or plasma anion gap determination (moles/volume) 9 mmol/L 5-14 Serum or plasma urea nitrogen measurement (mass/volume ) 24 mg/dL 7-18 Serum or plasma creatinine measurement (mass/volume) 1.13 mg/dL 0.60-1.30 Serum or plasma urea nitrogen/creatinine mass ratio 21 NRG Serum or plasma creatinine measurement w ith calculation of estimated glomerular filtration rate 47 NRG Serum or plasma glucose measurement (mass/volume) 128 mg/dL 70-105 Serum or plasma calcium measurement (mass/volume) 9.8 mg/dL 8.5-10.1 Serum or plasma total bilirubin measurement (mass/volu me) 0.3 mg/dL 0.1-1.0 Serum or plasma alkaline phosphatase brigida surement (enzymatic activity/volume) 107 U/L 40-136 Serum or plasma aspartate aminotransfera se measurement (enzymatic activity/volume) 24 U/L 5-34 Serum or plasma alanine aminotransferase measurement (enzymatic activity/volume) 33 U/L 0-55 Serum or plasma protein measurement (mass/volume) 7.2 g/dL 6.4-8.2 Serum or plasma albumin measurement (mass/volume) 4.2 g/dL 3.2-4.5 CALCIUM CORRECTED 9.6 mg/dL 8.5-10.1 Complete urinalysis with reflex to cultu re - 03/04/19 17:00 Urine color determination YELLOW NRG Urine clarity determination CLEAR NR G Urine pH measurement by test strip 6 5-9 Specific gravity of urine by test strip 1.010 1.016-1.022 Urine protein assay by test strip, semi-quantitative NEGATIVE NEGATIVE Urine glucose detection by automated test strip NE GATIVE NEGATIVE Erythrocytes detection in urine sediment by light micr oscopy NEGATIVE NEGATIVE Urine ketones detection by automated test strip NE GATIVE NEGATIVE Urine nitrite detection by test strip NEGATIVE NEGATIVE Urine total bilirubin detection by test strip NEGA TIVE NEGATIVE Urine urobilinogen measurement by automated test strip (mass/volume) NORMAL NORMAL Urine leukocyte esterase detection by dipstick NEG ATIVE NEGATIVE Automated urine sediment erythrocyte cou nt by microscopy (number/high power field) NONE NRG Automated urine sediment leukocyte count by microscopy (number/high power field) RARE NRG Bacteria detection in urine sediment by light microsco py NEGATIVE NRG Squamous epithelial cells detection in u rine sediment by light microscopy 0-2 NRG Crystals detection in urine sediment by light microsco py NONE NRG Casts detection in urine sediment by light microscopy NONE NRG Mucus detection in urine sediment by light microscopy NEGATIVE NRG Complete urinalysis with reflex to culture NO NRG Complete blood count (CBC) with automate d white blood cell (WBC) differential - 05/10/19 10:10 Blood leukocytes automated count (number/volume) 11.6 10*3/uL 4.3-11.0 Blood erythrocytes automated count (number/volume) 4.38 10*6/uL 4.35-5.85 Venous blood hemoglobin measurement (mass/volume) 13.3 g/dL 11.5-16.0 Blood hematocrit (volume fraction) 42 % 35-52 Automated erythrocyte mean corpuscular volume 95 [ foz_us] 80-99 Automated erythrocyte mean corpuscular h emoglobin (mass per erythrocyte) 30 pg 25-34 Automated erythrocyte mean corpuscular h emoglobin concentration measurement (mass/volume) 32 g/dL 32-36 Automated erythrocyte distribution width ratio 14. 2 % 10.0- 14.5 Automated blood platelet count (count/volume) 395 10*3/uL 130-400 Automated blood platelet mean volume measurement 10.1 [foz_us] 7.4-10.4 Automated blood neutrophils/100 leukocytes 68 % 42-75 Automated blood lymphocytes/100 leukocytes 22 % 12-44 Blood monocytes/100 leukocytes 6 % 0-12 Automated blood eosinophils/100 leukocytes 4 % 0-10 Automated blood basophils/100 leukocytes 0 % 0-10 Blood neutrophils automated count (number/volume) 7.8 10*3 1.8-7.8 Blood lymphocytes automated count (number/volume) 2.6 10*3 1.0-4.0 Blood monocytes automated count (number/volume) 0. 7 10*3 0.0-1.0 Automated eosinophil count 0.5 10*3/uL 0 .0-0.3 Automated blood basophil count (count/volume) 0.1 10*3/uL 0.0-0.1 Influenza virus A and B antigen detectio n - 05/10/19 10:10 FLU RESULT NEGATIVE FOR INFLUENZA A AND B ANTIGENS BY IA [facility] Respiratory syncytial virus antigen dete ction - 05/10/19 10:10 RSVRESULT NEGATIVE BY IMMUNOASSAY [facility] Whole blood basic metabolic panel - 08/24 10:10 Serum or plasma sodium measurement (moles/volume) 137 mmol/L 135-145 Serum or plasma potassium measurement (moles/volume) 4.4 mmol/L 3.6-5.0 Serum or plasma chloride measurement (moles/volume) 103 mmol/L 98-107 Carbon dioxide 23 mmol/L 21-32 Serum or plasma anion gap determination (moles/volume) 11 mmol/L 5-14 Serum or plasma urea nitrogen measurement (mass/volume ) 26 mg/dL 7-18 Serum or plasma creatinine measurement (mass/volume) 1.13 mg/dL 0.60-1.30 Serum or plasma urea nitrogen/creatinine mass ratio 23 NRG Serum or plasma creatinine measurement w ith calculation of estimated glomerular filtration rate 47 NRG Serum or plasma glucose measurement (mass/volume) 109 mg/dL 70-105 Serum or plasma calcium measurement (mass/volume) 10.4 mg/dL 8.5-10.1 Encounters ACCT No. Visit Date/Time Discharge Status Pt. Type Provider Facility Loc./Unit Complaint [id number] 01/06/2019 11:49:29 ACT Unknown [id number] 05/16/2019 11:35:00 23:59:59 CLS Outpatient CEFERINO STARK MD [facility] RAD BACK PAIN LUMBAR SCOLIO SIS [id number] 05/10/2019 09:25:00 12:11:00 DIS Outpatient VARGAS DURAND DO [facility] ER COUGH;WHEEZING;CONGESTI ON [id number] 03/18/2019 10:47:00 23:59:59 CLS Outpatient BERNICE GOODSON [facility] RAD SCREENING [id number] 03/17/2019 15:27:00 23:59:59 CLS Outpatient SUSIE RAMIREZ MD, [facility] ONC [id number] 03/04/2019 16:44:00 18:26:00 DIS Outpatient MARTA BLAIR APRN [facility] ER L SIDED ABD PAIN [id number] 11/12/2018 10:05:00 00:01:00 DIS Outpatient SUSIE RAMIREZ MD, [facility] ONC [id number] 10/14/2018 15:42:00 23:59:59 CLS Outpatient BERNICE GOODSON [facility] RAD HEADACHE,FALL [id number] 07/16/2018 09:51:00 00:01:00 DIS Outpatient SUSIE RAMIREZ MD, [facility] ONC [id number] 10/05/2018 09:42:00 12:25:00 DIS Emergency JAYA ODILIA LEONG a [facility] ER DIZZINESS;HTN [id number] 09/27/2018 12:45:00 23:59:59 CLS Preadmit JAMEY NOVAK APRN [facility] RAD THORACIC RADICU LOPATGHY [id number] 09/16/2018 06:39:00 23:59:59 CLS Outpatient Kody CARDOZO MD [facility] CARD SOB,CHEST PAIN AT REST [id number] 09/13/2018 14:00:00 23:59:59 CLS Outpatient Kody CARDOZO MD [facility] CARD CHEST PAIN AT REST [id number] 09/03/2018 07:57:00 10:25:00 DIS Outpatient LIZZY CORDOBA MD [facility] ENDO RECTAL BLEEDING/LLQ ABD PAIN [id number] 09/01/2018 14:30:00 11:06:00 DIS Outpatient LIZZY CORDOBA MD [facility] PREOP COLONOSCOPY [id number] 08/30/2018 10:40:00 15:21:00 DIS Emergency MELANIA WINSLOW MD [facility] ER CP [id number] 08/12/2018 11:08:00 17:36:00 DIS Emergency BERNICE GOODSON [facility] ER LOW BLOOD PRESSURE [id number] 08/11/2018 05:21:00 09:11:00 DIS Emergency JAYA DOZACKARYA K Vi [facility] ER FELL, HIT HEAD ON NIGHT STAND [id number] 04/16/2018 09:37:00 00:01:00 DIS Outpatient SUSIE RAMIREZ MD [facility] ONC [id number] 06/28/2018 13:40:00 23:59:59 CLS Outpatient ALVAREZ CORREIA APRN [facility] RAD 6 MONTH FOLLOW UP [id number] 06/15/2018 08:17:00 23:59:59 CLS Outpatient BERNICE GOODSON [facility] RAD LT KIDNEY NODUL E [id number] 06/01/2018 13:36:00 16:26:00 DIS Emergency MARTA BLAIR BLOCK STACKER [facility] ER FALL;HEAD INJ [id number] 04/30/2018 21:35:00 23:20:00 DIS Emergency MARTA BLAIR BLOCK STACK[employer] [facility] ER BACK PAIN [id number] 04/26/2018 16:25:00 018 13:00:00 DIS Inpatient TRACEE FLETCHER MD [facility] 4TH BILAT PE [id number] 04/26/2018 15:15:00 23:59:59 CLS Preadmit CRICKET ARAUJO APRN [facility] RAD SOB [id number] 04/26/2018 15:00:00 23:59:59 CLS Outpatient CRICKET ARAUJO BLOCK STACKER [facility] RAD SOB [id number] 04/15/2018 12:45:00 23:59:59 CLS Outpatient Kody CARDOZO MD [facility] CARD SOB [id number] 03/22/2018 11:05:00 23:59:59 CLS Outpatient BRAD HDEZ MD [facility] RAD THORACIC BACK PAIN [id number] 03/17/2018 15:31:00 23:59:59 CLS Preadmit Kody CARDOZO MD [facility] RAD SOB [id number] 03/10/2018 15:30:00 23:59:59 CLS Outpatient CRICKET ARAUJO APRN [facility] RT SOB, ASTHMA [id number] 01/15/2018 10:50:00 00:01:00 DIS Outpatient SUSIE RAMIREZ MD [facility] ONC [id number] 10/16/2017 13:08:00 018 00:01:00 DIS Outpatient SUSIE RAMIREZ MD [facility] ONC [id number] 11/13/2017 09:47:00 018 23:59:59 CLS Outpatient ALVAREZ CORREIA VALERIA [facility] RAD SCREENING [id number] 09/26/2017 22:42:00 018 02:00:00 DIS Emergency BOYD KEATING, SPIKE Bernal [facility] ER FALL INJ SHOULD ER [id number] 09/01/2017 15:31:00 018 23:59:59 CLS Preadmit VANCRICKET STEWARD APRN [facility] RT SOB,ASTHMA [id number] 07/13/2017 12:30:00 018 13:50:00 DIS Inpatient Kody CARDOZO MD [facility] ICU SYMPTOMATIC BRADYCARDIA , DEHYDRATION W/ ELECTROLYT [id number] 05/21/2017 10:29:00 017 23:59:59 CLS Outpatient ESTEFANIA CLEMENTE MD [facility] RAD M48.50XA [id number] 11/04/2016 13:28:00 017 23:59:59 CLS Outpatient LOY HUGHES DO [facility] RAD Z12.39 [id number] 10/03/2016 06:43:00 017 09:51:00 DIS Outpatient LIZZY CORDOBA MD [facility] ENDO IBS, LUQ/LLQ PAIN, HX C OLON POLYPS [id number] 10/01/2016 05:35:00 017 23:59:59 CLS Outpatient LIZZY CORDOBA MD [facility] PREOP ISB,LUQ PAIN,LLQ PAIN [id number] 02/24/2016 20:27:00 016 23:00:00 DIS Emergency SPIKE NIX MD [facility] ER HTN [id number] 01/01/2016 07:49:00 016 23:59:59 CLS Outpatient JUANJO KEATING, DARCI Hartmann [facility] RAD HEADACHE,DIPLOPIA [id number] 11/23/2015 23:30:00 016 01:26:00 DIS Emergency ODILIA LAKE DO [facility] ER LAWSON,VOMITING,ANXIETY [id number] 08/13/2015 12:43:00 016 14:13:00 DIS Emergency VARGAS DURAND DO [facility] ER IRR HEART RATE [id number] 02/16/2018 10:37:00 Document Registration
== END 2019-05-10 12:11 | disposition home or self-care (01) ==
LOC: EDUNIT# 09:24 → ER 09:25
DX: J44.9 Chronic obstructive pulmonary disease, unspecified (principal); I10 Essential (primary) hypertension; E78.00 Pure hypercholesterolemia, unspecified; F03.90 Unspecified dementia, unspecified severity, without behavioral disturbance, psychotic disturbance, mood disturbance, and anxiety; F41.9 Anxiety disorder, unspecified; K58.9 Irritable bowel syndrome, unspecified; Z95.0 Presence of cardiac pacemaker; Z86.711 Personal history of pulmonary embolism; Z88.0 Allergy status to penicillin; Z88.6 Allergy status to analgesic agent; Z88.5 Allergy status to narcotic agent; Z88.1 Allergy status to other antibiotic agents; Z79.52 Long term (current) use of systemic steroids; Z79.51 Long term (current) use of inhaled steroids; Z79.01 Long term (current) use of anticoagulants; Z90.49 Acquired absence of other specified parts of digestive tract; Z90.710 Acquired absence of both cervix and uterus
CPT/HCPCS: 36415; 71046; 80048; 85025; 87420; 87804; 94640; 96374

== ENCOUNTER → 2019-05-16 | Outpatient (CLI) | payer MEDICARE, MEDICAID ==
[~2019-05-16] MED LIST changes: +BENZ100C18 PO; -IBAN150T21 PO; +IBAN150T8 PO; +LOPE-145 PO; -LOPE-175 PO; +METO-387 PO; -MTP25TSR PO; -OMEP-280 PO; +OMEP20CA13 PO; +TRAM50TA2 PO; -TRM50T PO
--- NOTE | 2019-05-16 13:25 | Diagnostic Imaging Report ---
INDICATION: Back pain. COMPARISON: None. FINDINGS: Frontal and lateral views of the lumbar spine were obtained. Evaluation of the alignment shows slight grade 1 anterolisthesis at L4-L5. There is also slight dextroscoliotic deformity. Vertebral body heights are maintained. There is no fracture or destructive process. Mild multilevel degenerative disease is noted in the lumbar spine. Limited views of the abdomen demonstrate nonobstructive bowel gas pattern. IMPRESSION: 1. No acute fracture or dislocation of the lumbar spine. 2. Mild multilevel degenerative changes. Dictated by: Dictated on workstation # [id number]
--- NOTE | 2019-05-16 13:50 | Diagnostic Imaging Report ---
INDICATION: Back pain. TECHNIQUE: Three views of the thoracic spine were obtained. FINDINGS: There is marked thoracic kyphosis. There are several mild anterior compression fractures in the mid and upper thoracic spine; however, no severe fracture is appreciated. There are diffuse degenerative changes. IMPRESSION: Osteopenia and diffuse thoracic spondylosis. Several mild anterior compression fracture deformities are present, the age of which is indeterminate. If there is high clinical concern these may be acute, further evaluation with MRI should be considered. Dictated by: Dictated on workstation # [id number]
== END ==
LOC: RAD 11:35
PROVIDERS: ATTEND Student in an Organized Health Care Education/Training Program
DX: S22.000A Wedge compression fracture of unspecified thoracic vertebra, initial encounter for closed fracture (principal); M85.88 Other specified disorders of bone density and structure, other site; M47.816 Spondylosis without myelopathy or radiculopathy, lumbar region; M47.814 Spondylosis without myelopathy or radiculopathy, thoracic region; M41.85 Other forms of scoliosis, thoracolumbar region
CPT/HCPCS: 72072; 72100

== ENCOUNTER → 2019-07-01 | Outpatient (CLI) | payer MEDICARE, MEDICAID ==
[~2019-07-01] MED LIST changes: +IBAN150T21 PO; -IBAN150T8 PO; -LOPE-145 PO; +LOPE-175 PO; -METO-387 PO; +MTP25TSR PO; +OMEP-280 PO; -OMEP20CA13 PO; -TRAM50TA2 PO; +TRM50T PO
== END ==
LOC: CARD 11:47
PROVIDERS: ATTEND Internal Medicine Interventional Cardiology
DX: I08.1 Rheumatic disorders of both mitral and tricuspid valves (principal); R06.02 Shortness of breath
CPT/HCPCS: 93306

== ENCOUNTER 2019-08-06 19:54 | Emergency (ER) | payer MEDICARE, MEDICAID ==
[~2019-08-06] VITALS: Ht 160 cm; Wt 91.3 kg
[~2019-08-06 19:54] MED LIST changes: +BETA15CR4 TD; +CARV3.122 PO; +FERR325T18 PO; +FURO-124 PO; -HYDR-3812 PO; +LORA-404 PO; +METO50TA7 PO; -MONT10TA24 PO; +MONT10TA26 PO; +MUPI22OI2 NSEACH; -OMEP-280 PO; +OMEP20CA18 PO; +OXYB10TA29 PO; +PROP15DR OU; +QUET100T33 PO; -QUET100T69 PO; +RIVA20TA PO; +SENN-145 PO
[2019-08-06] MEDS ORDERED: LORazepam 0.5 MG (ATIVAN) TABLET PO ONE (20:30)
--- NOTE | 2019-08-06 20:37 | ED Back Pain ---
General Chief Complaint: Back Problems Stated Complaint: BACK SPASM Nursing Triage Note: Pt arrived via EMS with c/o midspinal back pain without injury. Pt denies radiating of pain. Nursing Sepsis Screen: No Definite Risk Source of Information: Patient Exam Limitations: No Limitations History of Present Illness Date Seen by Provider: Aug 06, 2019 Time Seen by Provider: 20:10 Initial Comments Here with report of low thoracic back pain. This is a chronic condition but exacerbated today. No recent injury. She did try Tylenol today which sometimes works but it did not today. Reports some constipation and she is doing milk of magnesia for that. No fever or chills. No other concerns except for her anxiety which she states is chronic. She has been using a heating pad to help with the pain. Location: T-Spine Timing/Duration: 12-24 Hours Severity: Moderate Pain/Injury Location: Back Radiation: Other (none) Method of Injury: Unknown Modifying Factors: Worse With Movement; Improves With Rest Associated Symptoms: No muscle spasms, No fever, No weakness, No numbness in legs/feet, No tingling in legs/feet, No sensory/motor loss, No loss of bladder control, No loss of bowel control Allergies and Home Medications Allergies Coded Allergies: Penicillins (Verified Allergy, Mild, 07/17/19) ketorolac (Verified Allergy, Mild, 07/17/19) morphine (Verified Allergy, Mild, 07/17/19) tetracycline (Verified Allergy, Mild, 07/17/19) paroxetine (Unverified Allergy, Unknown, 07/17/19) Home Medications Acetaminophen 500 Mg Tablet, 1,000 MG PO Q8H PRN for PAIN-MILD (1-4), (Reported) TAKES 2 (500 MG) TABLETS Benzonatate 100 Mg Capsule, 100 MG PO TID PRN for COUGH, (Reported) Betamethasone Dipropionate 15 Gm Cream..g., 1 APPLIC TD BID PRN for ITCHING, (Reported) Calcium Carbonate/Vitamin D3 1 Each Tablet, 1 TAB PO BID, (Reported) Carvedilol 3.125 Mg Tablet, 3.125 MG PO BID Prescribed by: TRACEE FLETCHER on 07/21/19 1118 Ferrous Sulfate 325 Mg Tablet, 325 MG PO DAILY, (Reported) Fexofenadine HCl 180 Mg Tablet, 180 MG PO DAILY, (Reported) Fluticasone Propionate 16 Gm [place].susp, 1 SPRAY NS DAILY, (Reported) Folic Acid 1 Mg Tablet, 1 MG PO DAILY, (Reported) Furosemide 40 Mg Tablet, 40 MG PO DAILY Prescribed by: TRACEE FLETCHER on 07/21/191117 Guaifenesin 1,200 Mg Tab.er.12h, 1,200 MG PO BID PRN for CONGESTION, (Reported) Lidocaine HCl 76.5 Gm Cream..g., 76.5 GM TP QID PRN for BACK PAIN, (Reported) Lisinopril 20 Mg Tablet, 20 MG PO BID, (Reported) Loperamide HCl 2 Mg Capsule, 2 MG PO Q8H PRN for LOOSE STOOLS, (Reported) Lorazepam 0.5 Mg Tablet, 0.5 MG PO BID, (Reported) Montelukast Sodium 10 Mg Tablet, 10 MG PO HS, (Reported) Mupirocin 22 Gm Oint...g., 0 GM NSEACH BID Prescribed by: TRACEE FLETCHER on 07/21/191117 Omeprazole 20 Mg Capsule.dr, 20 MG PO DAILY, (Reported) Oxybutynin Chloride 10 Mg Tab.er.24, 10 MG PO DAILY, (Reported) Pravastatin Sodium 40 Mg Tablet, 40 MG PO HS, (Reported) Quetiapine Fumarate 100 Mg Tablet, 100 MG PO DAILY, (Reported) Rivaroxaban 20 Mg Tablet, 20 MG PO DAILY, (Reported) Rivastigmine Tartrate 1.5 Mg Capsule, 1.5 MG PO BID, (Reported) Sennosides/Docusate Sodium 1 Each Tablet, 1 EACH PO DAILY, (Reported) Tramadol HCl 50 Mg Tablet, 50 MG PO Q6H PRN for PAIN Prescribed by: BARBRA TORRES on 08/06/192101 Patient Home Medication List Home Medication List Reviewed: Yes Review of Systems Constitutional: see HPI; No chills, No fever Respiratory: no symptoms reported Cardiovascular: no symptoms reported Gastrointestinal: see HPI; No abdominal pain; constipation Genitourinary: no symptoms reported Musculoskeletal: back pain, muscle pain, muscle stiffness Skin: no symptoms reported Past Dmklxjh-Fofwjr-Qwjynq Hx Past Med/Social Hx: Reviewed Nursing Past Med/Soc Hx Patient Social History Alcohol Beverage of Choice: Wine Smoking Status: Never a Smoker 2nd Hand Smoke Exposure: No Recent Foreign Travel: No Contact w/Someone Who Travel: No Recent Infectious Disease Expo: No Recent Hopitalizations: No Physical Abuse: No Sexual Abuse: No Mistreated: No Fear: No Immunizations Up To Date Tetanus Booster (TDap): Unknown PED Vaccines UTD: Yes Date of Pneumonia Vaccine: Feb 10, 2015 Date of Influenza Vaccine: Apr 06, 2019 Seasonal Allergies Seasonal Allergies: No Past Medical History Surgeries: No Abdominal, Appendectomy, Eye Surgery, Gallbladder, 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, Joint Replaceme nt, Orthopedic, Pacemaker Respiratory: No Asthma, Pulmonary Embolism, COPD Currently Using CPAP: No Currently Using BIPAP: No Cardiac: No High Cholesterol, Hypertension Neurological: No Dementia 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 Disorders: No Female 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 Disorders: Denies, 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, 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 Sexually Transmitted Disease: No HIV/AIDS: No Genitourinary: No Gastrointestinal: Yes (BLEEDING ULCER X 3; PERFORATED ULCER 2006; 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) Gastrointestinal Bleed, Chronic Diarrhea, Polyps, Ulcer, Irritable Bowel Musculoskeletal: Yes Degenerate Disk Disease, Arthritis, Chronic Back Pain, Fractures Endocrine: No HEENT: No Cataract Loss of Vision: Denies Hearing Impairment: Hard of Hearing Cancer: No Psychosocial: Yes Anxiety Integumentary: No Blood Disorders: Yes (BILATERAL P.E.'S 04/2018) Adverse Reaction/Blood Tranf: No Family Medical History Reviewed Nursing Family Hx Blood clots (sister had a blood clot in the brain which caused her  in 2010) Physical Exam Vital Signs Vital Signs - First Documented 08/06/19 19:59 Temp 36.8 Pulse 66 Resp 16 B/P (MAP) 132/85 (101) Pulse Ox 94 O2 Delivery Room Air Capillary Refill : Less Than 3 Seconds Height, Weight, BMI Height: 5'3.00" Weight: 150lbs. 0.0oz. 68.439805fk; 35.00 BMI Method:Stated General Appearance: WD/WN, Anxious HEENT: PERRL/EOMI, Pharynx Normal Neck: Non Tender, Supple Cardiovascular: Regular Rate, Rhythm, No Murmur Respiratory: Lungs Clear, Normal Breath Sounds Gastrointestinal: No Pulsatile Mass, Non Tender, Soft Back: Other (thoracic back pain in the region of T10 to T12. No deformity or step-off noted.) Extremity: Normal Range of Motion, Non Tender Neurologic/Psychiatric: Alert, Oriented x3 Skin: Warm/Dry, Other (erythema in the area of heating pad use without blisters or other significant lesions to the mid back region. Not significantly tender to touch.) Progress/Results/Core Measures Results/Orders My Orders Orders - BARBRA TORRES MD Tramadol Tablet (Ultram Tablet) (08/06/19 20:19) Lorazepam Tablet (Ativan Tablet) (08/06/19 20:30) Medications Given in ED Current Medications Medications Dose Ordered Sig/Lee Route Start Time Stop Time Status Last Admin Dose Admin Lorazepam 0.5 mg ONCE ONCE PO 08/06/19 20:30 08/06/19 20:31 DC 08/06/19 20:58 0.5 MG Vital Signs/I&O 08/06/19 19:59 Temp 36.8 Pulse 66 Resp 16 B/P (MAP) 132/85 (101) Pulse Ox 94 O2 Delivery Room Air Blood Pressure Mean: 101 Progress Progress Note : Progress Note Seen and evaluated. I did review previous history and noted recent x-ray showing the chronic compression fractures in the thoracic region. Pain is consistent with this without any recent injury. Patient does suffer from anxiety. Ativan 0.5 mg by mouth as well as a tramadol 50 mg by mouth given. Monitor patient. 5: Patient doing better. Daughter here. Discharged home with return precautions. Patient verbalize understanding instructions and agreement with plan. Departure Impression Primary Impression: Chronic thoracic back pain Qualified Codes: M54.6 - Pain in thoracic spine; G89.29 - Other chronic pain Disposition: 01 HOME, SELF-CARE Condition: Stable Departure-Patient Inst. Decision time for Depature: 20:59 Referrals: BRAD HDEZ MD (PCP/Family) Primary Care Physician Patient Instructions: Low Back Pain (DC) Add. Discharge Instructions: All discharge instructions reviewed with patient and/or family. Voiced understanding. Continue Tylenol 1000 mg every 6-8 hours as needed for pain. Take other medications as directed. Follow-up with your doctor for other evaluation. Return for worse pain, fever, vomiting, weakness, breathing problems or other concerns as needed. Continue to drink plenty of fluids and continue your bowel regimen to achieve normal bowel movements. You may take MiraLAX or the generic one capful twice daily for 3 days and then daily as needed to get normal bowel movements. You may increase or decrease the dose as needed to have normal bowel regimen. Scripts Tramadol HCl (Tramadol HCl) 50 Mg Tablet 50 MG PO Q6H PRN for PAIN for 4 Days, #15 TAB 0 Refills Prov: BARBRA TORRES MD 08/06/19 Copy Copies To 1: BERNICE CLINE TIMOTHY D MD Aug 06, 2019 20:36
[2019-08-06] MEDS ORDERED: TRM50T PO (21:01)
[2019-08-06 21:42] VITALS: BP 128/80
== END 2019-08-06 21:41 | disposition home or self-care (01) ==
LOC: EDUNIT# 19:54 → ER 19:55
DX: M54.6 Pain in thoracic spine (principal); G89.29 Other chronic pain; I10 Essential (primary) hypertension; E78.00 Pure hypercholesterolemia, unspecified; J44.9 Chronic obstructive pulmonary disease, unspecified; F41.9 Anxiety disorder, unspecified; F03.90 Unspecified dementia, unspecified severity, without behavioral disturbance, psychotic disturbance, mood disturbance, and anxiety; Z86.711 Personal history of pulmonary embolism; Z95.0 Presence of cardiac pacemaker; Z79.51 Long term (current) use of inhaled steroids; Z79.01 Long term (current) use of anticoagulants; Z88.0 Allergy status to penicillin; Z88.6 Allergy status to analgesic agent; Z88.5 Allergy status to narcotic agent; Z88.1 Allergy status to other antibiotic agents; Z88.8 Allergy status to other drugs, medicaments and biological substances

== ENCOUNTER → 2019-10-18 | Outpatient (CLI) | payer MEDICARE, MEDICAID ==
[~2019-10-18] MED LIST changes: +CATHETER FLUSH 10 ML SYR IV PRN; +HOLD METFORMIN - RECEIVED CONTRAST 20 ML VIAL IV SCH; +IOHEXOL 350 MG/ML 100 ML (OMNIPAQUE 350) VIAL IV ONE; +NS 100 ML (IVPB) BAG IV ONE; -RIVA1.5C6 PO; +RIVA3CAP17 PO; -RIVA3CAP5 PO; +[UNRECOGNIZED DRUG - CODE] PO
[2019-10-18 11:09] LABS: CREATININE SERUM 1.11 MG/DL (0.60-1.30)
--- NOTE | 2019-10-18 12:56 | Diagnostic Imaging Report ---
CT CHEST W TECHNIQUE: Multiple contiguous axial images were obtained through the chest with the use of intravenous contrast. All CT scans use one or more of the following dose optimizing techniques: automated exposure control, MA and/or KvP adjustment based on a patient size and exam type, or iterative reconstruction. INDICATION: Shortness of breath COMPARISON: CT abdomen and pelvis from 03/04/[address] angio chest of 08/30/2018 FINDINGS: Lungs and airway: No endoluminal nodule within the trachea. No pulmonary mass, nodule or consolidation. No pulmonary fibrosis or other features of interstitial lung disease. Pleura: No pleural effusion or pneumothorax. Heart and mediastinum: Thyroid is normal. No supraclavicular or axillary lymphadenopathy. No mediastinal, discrete hilar or juxtaphrenic lymphadenopathy. Heart is normal in size without pericardial effusion. Stable position of left pectoral transvenous pacemaker with electrodes terminating in the right ventricle and right atrium. No pericardial effusion. No pulmonary emboli to the level of the segmental arteries. Examination was not performed by the angiogram protocol, and therefore assessment of pulmonary arteries is limited. Normal caliber thoracic aorta without dissection. Upper abdomen: Large sliding-type hiatal hernia is unchanged. Bilateral renal cysts are unchanged and requires no dedicated followup imaging. Musculoskeletal: No concerning focal osseous lesion. Right shoulder arthroplasty is partially imaged. IMPRESSION: 1. No acute cardiopulmonary process. 2. No central pulmonary emboli. Assessment of the mid to distal pulmonary arterial system is limited as exam was not performed per the angiogram protocol. 3. Stable large sliding-type hiatal hernia. Dictated by: Dictated on workstation # [id number]
== END ==
LOC: RAD 10:15
PROVIDERS: ATTEND Nurse Practitioner Family
DX: I26.99 Other pulmonary embolism without acute cor pulmonale (principal); R09.02 Hypoxemia; R94.2 Abnormal results of pulmonary function studies; R06.02 Shortness of breath; M19.90 Unspecified osteoarthritis, unspecified site; F41.9 Anxiety disorder, unspecified; E88.01 Alpha-1-antitrypsin deficiency; K44.9 Diaphragmatic hernia without obstruction or gangrene
CPT/HCPCS: 36415; 71260; 82565; 84520

== ENCOUNTER → 2019-10-24 | Outpatient (CLI) | payer MEDICARE, MEDICAID ==
[~2019-10-24] MED LIST changes: -CATHETER FLUSH 10 ML SYR IV PRN; -HOLD METFORMIN - RECEIVED CONTRAST 20 ML VIAL IV SCH; -IOHEXOL 350 MG/ML 100 ML (OMNIPAQUE 350) VIAL IV ONE; -NS 100 ML (IVPB) BAG IV ONE
[2019-10-24 13:16] LABS: BASOPHILS # (AUTO) 0.1 10^3/uL (0.0-0.1); BASOPHILS % (AUTO) 0 % (0-10); EOSINOPHILS # (AUTO) 0.8 10^3/uL (0.0-0.3); EOSINOPHILS % (AUTO) 6 % (0-10); HEMATOCRIT 38 % (35-52); HEMOGLOBIN 12.4 G/DL (11.5-16.0); LYMPHOCYTES # (AUTO) 2.9 X 10^3 (1.0-4.0); LYMPHOCYTES % (AUTO) 21 % (12-44); MEAN CORPUSCULAR HEMOGLOBIN 30 PG (25-34); MEAN CORPUSCULAR HGB CONC 33 G/DL (32-36); MEAN CORPUSCULAR VOLUME 92 FL (80-99); MEAN PLATELET VOLUME 9.3 FL (7.4-10.4); MONOCYTES # (AUTO) 0.9 X 10^3 (0.0-1.0); MONOCYTES % (AUTO) 7 % (0-12); NEUTROPHILS # (AUTO) 8.9 X 10^3 (1.8-7.8); NEUTROPHILS % (AUTO) 66 % (42-75); PLATELET COUNT 439 10^3/uL (130-400); RED CELL DISTRIBUTION WIDTH 13.7 % (10.0-14.5); WHITE BLOOD COUNT 13.6 10^3/uL (4.3-11.0)
[2019-10-24 13:36] LABS: ALBUMIN 4.2 GM/DL (3.2-4.5); BILIRUBIN,TOTAL 0.5 MG/DL (0.1-1.0); CALCIUM 10.2 MG/DL (8.5-10.1); CREATININE SERUM 1.43 MG/DL (0.60-1.30); POTASSIUM 4.7 MMOL/L (3.6-5.0); TOTAL PROTEIN 7.4 GM/DL (6.4-8.2)
== END ==
LOC: ONC 09:45
PROVIDERS: ATTEND Internal Medicine Hematology & Oncology
DX: D72.829 Elevated white blood cell count, unspecified (principal); D47.3 Essential (hemorrhagic) thrombocythemia; D64.9 Anemia, unspecified; I10 Essential (primary) hypertension; F41.9 Anxiety disorder, unspecified; R41.3 Other amnesia; J45.909 Unspecified asthma, uncomplicated; K44.9 Diaphragmatic hernia without obstruction or gangrene; M79.3 Panniculitis, unspecified; M19.90 Unspecified osteoarthritis, unspecified site; Z95.0 Presence of cardiac pacemaker; Z96.611 Presence of right artificial shoulder joint; Z90.710 Acquired absence of both cervix and uterus; Z90.49 Acquired absence of other specified parts of digestive tract
CPT/HCPCS: 80053; 82728; 85025; 99213

== ENCOUNTER 2019-10-28 19:36 | Emergency (ER) | payer MEDICARE, MEDICAID ==
[~2019-10-28] VITALS: Ht 160 cm; Wt 81.7 kg
[2019-10-28] MEDS ORDERED: ASPIRIN 81 MG CHEW (CHILDREN'S ASA) PO ONE (20:00)
[2019-10-28 20:12] LABS: BASOPHILS % (AUTO) 0 % (0-10); EOSINOPHILS # (AUTO) 0.8 10^3/uL (0.0-0.3); EOSINOPHILS % (AUTO) 6 % (0-10); HEMATOCRIT 38 % (35-52); HEMOGLOBIN 12.8 G/DL (11.5-16.0); LYMPHOCYTES # (AUTO) 3.4 X 10^3 (1.0-4.0); LYMPHOCYTES % (AUTO) 22 % (12-44); MEAN CORPUSCULAR HEMOGLOBIN 30 PG (25-34); MEAN CORPUSCULAR HGB CONC 33 G/DL (32-36); MEAN CORPUSCULAR VOLUME 91 FL (80-99); MEAN PLATELET VOLUME 9.6 FL (7.4-10.4); MONOCYTES # (AUTO) 1.1 X 10^3 (0.0-1.0); MONOCYTES % (AUTO) 7 % (0-12); NEUTROPHILS # (AUTO) 9.9 X 10^3 (1.8-7.8); NEUTROPHILS % (AUTO) 65 % (42-75); PLATELET COUNT 457 10^3/uL (130-400); RED CELL DISTRIBUTION WIDTH 13.6 % (10.0-14.5); WHITE BLOOD COUNT 15.3 10^3/uL (4.3-11.0)
[2019-10-28 20:25] LABS: INR 1.7 (0.8-1.4); PROTHROMBIN TIME PATIENT 20.2 SEC (12.2-14.7)
[2019-10-28 20:28] LABS: BAND NEUTROPHILS 0 %; BASOPHILS % (MANUAL) 0 %; EOSINOPHILS % (MANUAL) 2 %; LYMPHOCYTES % (MANUAL) 30 %; MONOCYTES % (MANUAL) 8 %; NEUTROPHILS % (MANUAL) 60 %; RBC MORPH NORMAL
[2019-10-28 20:29] LABS: ALANINE AMINOTRANSFERASE 13 U/L (0-55); ALBUMIN 4.3 GM/DL (3.2-4.5); ALKALINE PHOSPHATASE 73 U/L (40-136); BILIRUBIN,TOTAL 0.4 MG/DL (0.1-1.0); BUN/CREATININE RATIO 21; CARBON DIOXIDE 19 MMOL/L (21-32); CHLORIDE 99 MMOL/L (98-107); GFR ESTIMATED 40; GLUCOSE 116 MG/DL (70-105); MAGNESIUM 1.8 MG/DL (1.6-2.4); POTASSIUM 4.2 MMOL/L (3.6-5.0); SODIUM 132 MMOL/L (135-145); TOTAL PROTEIN 7.6 GM/DL (6.4-8.2)
--- NOTE | 2019-10-28 20:29 | Diagnostic Imaging Report ---
INDICATION: Chest discomfort and cough. EXAMINATION: Single view of the chest was obtained. COMPARISON: 07/20/2019. FINDINGS: The lungs are clear. Pacemaker device is unremarkable. There has been no change. No failure, effusion or pneumothorax. IMPRESSION: No acute appearing abnormality. Dictated by: Dictated on workstation # [id number]
--- NOTE | 2019-10-28 20:43 | ED Chest Pain ---
General Chief Complaint: General Problems/Pain Stated Complaint: CHEST DISCOMFORT Nursing Triage Note: Pt to Rm 3 via [facility] with c/o chest discomfort/cough/"fluid feeling around heart" that started today. Pt denies any chest pain at this time, c/o occasional SOB. Pt has Hx of CHF and states she's been taking her routine meds as usual. Pt has Hx of demetia, A&O to person, place, situation. Nursing Sepsis Screen: No Definite Risk Source: patient, EMS Exam Limitations: no limitations History of Present Illness Date Seen by Provider: October 28, 2019 Time Seen by Provider: 19:54 Initial Comments Here by EMS with report of chest discomfort, cough and feeling like there is fluid around her heart. Reports history of heart failure. Reports taking her meds as directed. She does have a minor cough and she is a bit anxious. Denies nausea, vomiting or diarrhea. Reports this is been going on throughout the day today. Denies contact with any ill person and states that she does not go out much but she always wears her mask. Timing/Duration: 12-24 hours Severity/Quality: tightness Location: central Radiation: no radiation Activities at Onset: none Prior CP/Workup: cardiac cath, echocardiography Modifying Factors: improves with rest ASA po VAN LOADER: No (on 0) NTG SL VAN LOADER: No Associated Symptoms: No abdominal pain, No back pain, No fever/chills; shortness of breath; No weakness Allergies and Home Medications Allergies Coded Allergies: Penicillins (Verified Allergy, Mild, 07/17/19) ketorolac (Verified Allergy, Mild, 07/17/19) morphine (Verified Allergy, Mild, 07/17/19) tetracycline (Verified Allergy, Mild, 07/17/19) paroxetine (Unverified Allergy, Unknown, 07/17/19) Home Medications Acetaminophen 500 Mg Tablet, 1,000 MG PO Q8H PRN for PAIN-MILD (1-4), (Reported) TAKES 2 (500 MG) TABLETS Benzonatate 100 Mg Capsule, 100 MG PO TID PRN for COUGH, (Reported) Betamethasone Dipropionate 15 Gm Cream..g., 1 APPLIC TD BID PRN for ITCHING, (Reported) Calcium Carbonate/Vitamin D3 1 Each Tablet, 1 TAB PO BID, (Reported) Carvedilol 3.125 Mg Tablet, 3.125 MG PO BID Prescribed by: TRACEE FLETCHER on 07/21/19 111 Ferrous Sulfate 325 Mg Tablet, 325 MG PO DAILY, (Reported) Fexofenadine HCl 180 Mg Tablet, 180 MG PO DAILY, (Reported) Fluticasone Propionate 16 Gm [place].susp, 1 SPRAY NS DAILY, (Reported) Folic Acid 1 Mg Tablet, 1 MG PO DAILY, (Reported) Furosemide 40 Mg Tablet, 40 MG PO DAILY Prescribed by: TRACEE FLETCHER on 07/21/19 111 Guaifenesin 1,200 Mg Tab.er.12h, 1,200 MG PO BID PRN for CONGESTION, (Reported) Lidocaine HCl 76.5 Gm Cream..g., 76.5 GM TP QID PRN for BACK PAIN, (Reported) Lisinopril 20 Mg Tablet, 20 MG PO BID, (Reported) Loperamide HCl 2 Mg Capsule, 2 MG PO Q8H PRN for LOOSE STOOLS, (Reported) Lorazepam 0.5 Mg Tablet, 0.5 MG PO BID, (Reported) Montelukast Sodium 10 Mg Tablet, 10 MG PO HS, (Reported) Mupirocin 22 Gm Oint...g., 0 GM NSEACH BID Prescribed by: TRACEE FLETCHER on 07/21/191117 Omeprazole 20 Mg Capsule.dr, 20 MG PO DAILY, (Reported) Oxybutynin Chloride 10 Mg Tab.er.24, 10 MG PO DAILY, (Reported) Pravastatin Sodium 40 Mg Tablet, 40 MG PO HS, (Reported) Quetiapine Fumarate 100 Mg Tablet, 100 MG PO DAILY, (Reported) Rivaroxaban 20 Mg Tablet, 20 MG PO DAILY, (Reported) Rivastigmine Tartrate 1.5 Mg Capsule, 1.5 MG PO BID, (Reported) Sennosides/Docusate Sodium 1 Each Tablet, 1 EACH PO DAILY, (Reported) Tramadol HCl 50 Mg Tablet, 50 MG PO Q6H PRN for PAIN Prescribed by: BARBRA TORRES on 08/06/192101 Patient Home Medication List Home Medication List Reviewed: Yes Review of Systems Review of Systems Constitutional: see HPI; No chills, No fever EENTM: No Symptoms Reported Respiratory: Cough, Shortness of Air Cardiovascular: See HPI; Denies Edema Gastrointestinal: No Symptoms Reported Genitourinary: No Symptoms Reported Musculoskeletal: no symptoms reported Skin: no symptoms reported Psychiatric/Neurological: See HPI, Anxiety; Denies Weakness Endocrine: No Symptoms Reported All Other Systems Reviewed Negative Unless Noted: Yes Past Xsmdjkt-Tbakxi-Mtljke Hx Past Med/Social Hx: Reviewed Nursing Past Med/Soc Hx Patient Social History Alcohol Use: Occasionally Uses Alcohol Beverage of Choice: Wine Recreational Drug Use: No Smoking Status: Never a Smoker 2nd Hand Smoke Exposure: No Recent Foreign Travel: No Contact w/Someone Who Travel: No Recent Infectious Disease Expo: No Recent Hopitalizations: No Immunizations Up To Date Tetanus Booster (TDap): Unknown PED Vaccines UTD: Yes Date of Pneumonia Vaccine: Feb 10, 2015 Date of Influenza Vaccine: Apr 06, 2019 Seasonal Allergies Seasonal Allergies: No Past Medical History Surgeries: No Abdominal, Appendectomy, Eye Surgery, Gallbladder, 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, Joint Replacement, Orthopedic, Pacemaker Respiratory: No Asthma, Pulmonary Embolism, COPD Currently Using CPAP: No Currently Using BIPAP: No Cardiac: No High Cholesterol, Hypertension Neurological: No Dementia 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 Disorders: No Female 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 Disorders: Denies, 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, 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 Sexually Transmitted Disease: No HIV/AIDS: No Genitourinary: No Gastrointestinal: Yes (BLEEDING ULCER X 3; PERFORATED ULCER 2006; 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) Gastrointestinal Bleed, Chronic Diarrhea, Polyps, Ulcer, Irritable Bowel Musculoskeletal: Yes Degenerate Disk Disease, Arthritis, Chronic Back Pain, Fractures Endocrine: No HEENT: No Cataract Loss of Vision: Denies Hearing Impairment: Hard of Hearing Cancer: No Psychosocial: Yes Anxiety Integumentary: No Blood Disorders: Yes (BILATERAL P.E.'S 04/2018) Adverse Reaction/Blood Tranf: No Family Medical History Reviewed Nursing Family Hx Blood clots (sister had a blood clot in the brain which caused her  in 2010) Physical Exam Vital Signs Vital Signs - First Documented 10/28/19 20:09 Temp 36.8 Pulse 69 Resp 21 B/P (MAP) 153/90 (111) Pulse Ox 96 O2 Delivery Room Air Capillary Refill : Less Than 3 Seconds Height, Weight, BMI Height: 5'3.00" Weight: 150lbs. 0.0oz. 68.228057ug; 31.00 BMI Method:Stated General Appearance: No Apparent Distress, WD/WN HEENT: PERRL/EOMI, Pharynx Normal Neck: Non Tender, Supple Respiratory: Lungs Clear, Normal Breath Sounds, No Accessory Muscle Use Cardiovascular: Regular Rate, Rhythm, No Murmur Gastrointestinal: Non Tender, Soft Extremity: Normal Range of Motion, Non Tender Neurologic/Psychiatric: Alert, Oriented x3 Skin: Normal Color, Warm/Dry Progress/Results/Core Measures Results/Orders Lab Results Laboratory Tests Test 10/28/19 19:53 10/28/19 20:48 Range/Units White Blood Count 15.3 H 4.3-11.0 10^3/uL Red Blood Count 4.23 L 4.35-5.85 10^6/uL Hemoglobin 12.8 11.5-16.0 G/DL Hematocrit 38 35-52 % Mean Corpuscular Volume 91 80-99 FL Mean Corpuscular Hemoglobin 30 25-34 PG Mean Corpuscular Hemoglobin Concent 33 32-36 G/DL Red Cell Distribution Width 13.6 10.0-14.5 % Platelet Count 457 H 130-400 10^3/uL Mean Platelet Volume 9.6 7.4-10.4 FL Neutrophils (%) (Auto) 65 42-75 % Lymphocytes (%) (Auto) 22 12-44 % Monocytes (%) (Auto) 7 0-12 % Eosinophils (%) (Auto) 6 0-10 % Basophils (%) (Auto) 0 0-10 % Neutrophils # (Auto) 9.9 H 1.8-7.8 X 10^3 Lymphocytes # (Auto) 3.4 1.0-4.0 X 10^3 Monocytes # (Auto) 1.1 H 0.0-1.0 X 10^3 Eosinophils # (Auto) 0.8 H 0.0-0.3 10^3/uL Basophils # (Auto) 0.0 0.0-0.1 10^3/uL Neutrophils % (Manual) 60 % Lymphocytes % (Manual) 30 % Monocytes % (Manual) 8 % Eosinophils % (Manual) 2 % Basophils % (Manual) 0 % Band Neutrophils 0 % Blood Morphology Comment NORMAL Prothrombin Time 20.2 H 12.2-14.7 SEC INR Comment 1.7 H 0.8-1.4 Activated Partial Thromboplast Time 36 H 24-35 SEC Sodium Level 132 L 135-145 MMOL/L Potassium Level 4.2 3.6-5.0 MMOL/L Chloride Level 99 98-107 MMOL/L Carbon Dioxide Level 19 L 21-32 MMOL/L Anion Gap 14 5-14 MMOL/L Blood Urea Nitrogen 27 H 7-18 MG/DL Creatinine 1.30 0.60-1.30 MG/DL Estimat Glomerular Filtration Rate 40 BUN/Creatinine Ratio 21 Glucose Level 116 H 70-105 MG/DL Calcium Level 10.0 8.5-10.1 MG/DL Corrected Calcium 9.8 8.5-10.1 MG/DL Magnesium Level 1.8 1.6-2.4 MG/DL Total Bilirubin 0.4 0.1-1.0 MG/DL Aspartate Amino Transf (AST/SGOT) 20 5-34 U/L Alanine Aminotransferase (ALT/SGPT) 13 0-55 U/L Alkaline Phosphatase 73 40-136 U/L Myoglobin 74.7 10.0-92.0 NG/ML Troponin I < 0.028 <0.028 NG/ML C-Reactive Protein High Sensitivity 0.73 H 0.00-0.50 MG/DL B-Type Natriuretic Peptide 16.9 <100.0 PG/ML Total Protein 7.6 6.4-8.2 GM/DL Albumin 4.3 3.2-4.5 GM/DL Erythrocyte Sedimentation Rate 14 0-30 MM/HR My Orders Orders - BARBRA TORRES MD Cbc With Automated Diff (10/28/19 19:59) Magnesium (10/28/19 19:59) Chest 1 View, Ap/Pa Only (10/28/19 19:59) Ekg Tracing (10/28/19 19:59) Comprehensive Metabolic Panel (10/28/19 19:59) Myoglobin Serum (10/28/19 19:59) Protime With Inr (10/28/19 19:59) Partial Thromboplastin Time (10/28/19 19:59) O2 (10/28/19 19:59) Monitor-Rhythm Ecg Trace Only (10/28/19 19:59) Lipid Panel (10/29/19 06:00) Ed Iv/Invasive Line Start (10/28/19 19:59) BNP (10/28/19 19:59) Aspirin Chewable Tablet (Baby Aspirin Ch (10/28/19 20:00) Manual Differential (10/28/19 19:53) Troponin I (5/22/20 19:53) Hs C Reactive Protein (10/28/19 20:44) Erythrocyte Sedimentation Rate (10/28/19 20:44) Medications Given in ED Current Medications Medications Dose Ordered Sig/Lee Route Start Time Stop Time Status Last Admin Dose Admin Aspirin 324 mg ONCE ONCE PO 10/28/19 20:00 10/28/19 20:01 DC 10/28/19 20:06 324 MG Vital Signs/I&O 10/28/19 20:09 Temp 36.8 Pulse 69 Resp 21 B/P (MAP) 153/90 (111) Pulse Ox 96 O2 Delivery Room Air Blood Pressure Mean: 111 Progress Progress Note : Progress Note Seen and evaluated. IV, labs, EKG and chest x-ray ordered. ASA 324 mg by mouth. Monitor patient. 2039: EKG does note some minimal ST elevation in multiple leads to suggest pericarditis and this does appear to be changed from previous. We will add a CRP and sedimentation rate as white count is slightly elevated. She does have a mild cough and this may be related to viral illness. No fever noted. No contact history concerning COVID-19. She did have a heart catheter in July and pacemaker adjustment. Pacemaker not showing active currently. Does have history tachycardia evidence. Troponin normal and BNP normal. She is on Xarelto. Monitor patient. 2129: CRP and sedimentation rate are normal and not concerning. She is not having any ectopy on the monitor. Aside from mild occasional cough she's not having any other symptoms. I believe she is safe to go home at this time and she agrees. I did also discuss this with cardiology and there does not appear to be any cardiac-related events going on currently. Discharged home with return precautions. Patient verbalize understanding instructions and agreement with plan. Initial ECG Impression Date: October 28, 2019 Initial ECG Impression Time: 19:51 Initial ECG Rate: 69 Initial ECG Rhythm: Normal Sinus Comment Sinus rhythm with right bundle-branch block. Mild ST elevation to suggest acute pericarditis in the anterior, lateral and inferior leads. This does look a little different from 10/05/18. Interpreted by me. Diagnostic Imaging Diagonstic Imaging: Xray Plain Films/CT/US/NM/MRI: chest Comments [facility] [place], [place] NAME: AILEEN [facility] REC#: [id number] PT STATUS: REG ER : 1940 PHYSICIAN: BARBRA TORRES MD ADMIT DATE: 10/28/19/ER Signed Date of Exam:10/28/19 CHEST 1 VIEW, AP/PA ONLY INDICATION: Chest discomfort and cough. EXAMINATION: Single view of the chest was obtained. COMPARISON: 07/20/2019. FINDINGS: The lungs are clear. Pacemaker device is unremarkable. There has been no change. No failure, effusion or pneumothorax. IMPRESSION: No acute appearing abnormality. Dictated by: Dictated on workstation # [id number] Dict: 10/28/192026 Trans: 10/28/192047 [facility] [id number] Interpreted by: DELMI BOOKER Electronically signed by: DELMI BOOKER 10/28/192047 Departure Impression Primary Impression: Bronchitis Disposition: 01 HOME, SELF-CARE Condition: Improved Departure-Patient Inst. Decision time for Depature: 21:32 Referrals: BRAD HDEZ MD (PCP/Family) Primary Care Physician Patient Instructions: Acute Bronchitis, Adult (DC) Add. Discharge Instructions: All discharge instructions reviewed with patient and/or family. Voiced understanding. Follow-up with your DrSamira in a few days for recheck. Return for worse pain, fever, vomiting, weakness, breathing problems or other concerns as needed. Continue home medications as previously prescribed. BARBRA TORRES MD October 28, 2019 20:43
[2019-10-28 21:45] VITALS: BP 140/63
== END 2019-10-28 21:50 | disposition home or self-care (01) ==
LOC: EDUNIT# 19:36 → ER 19:37
DX: J40 Bronchitis, not specified as acute or chronic (principal); I11.0 Hypertensive heart disease with heart failure; I50.9 Heart failure, unspecified; E78.00 Pure hypercholesterolemia, unspecified; F41.9 Anxiety disorder, unspecified; F03.90 Unspecified dementia, unspecified severity, without behavioral disturbance, psychotic disturbance, mood disturbance, and anxiety; Z86.711 Personal history of pulmonary embolism; Z79.51 Long term (current) use of inhaled steroids; Z79.01 Long term (current) use of anticoagulants; Z88.0 Allergy status to penicillin; Z88.6 Allergy status to analgesic agent; Z88.5 Allergy status to narcotic agent; Z95.0 Presence of cardiac pacemaker; Z88.1 Allergy status to other antibiotic agents; Z88.8 Allergy status to other drugs, medicaments and biological substances
CPT/HCPCS: 36415; 71045; 80053; 83735; 83874; 83880; 84484; 85007; 85027; 85610; 85652; 85730; 86141; 93005; 93041

== ENCOUNTER 2020-01-17 01:20 | Emergency (ER) | payer MEDICARE, MEDICAID ==
[~2020-01-17] VITALS: Ht 172 cm; Wt 98.0 kg
[~2020-01-17 01:20] MED LIST changes: -CALC600T12 PO; +CALC600T14 PO
[2020-01-17 01:38] LABS: BASOPHILS % (AUTO) 0 % (0-10); EOSINOPHILS % (AUTO) 0 % (0-10); HEMATOCRIT 31 % (35-52); HEMOGLOBIN 10.3 G/DL (11.5-16.0); LYMPHOCYTES # (AUTO) 0.9 X 10^3 (1.0-4.0); LYMPHOCYTES % (AUTO) 8 % (12-44); MEAN CORPUSCULAR HEMOGLOBIN 28 PG (25-34); MEAN CORPUSCULAR HGB CONC 33 G/DL (32-36); MEAN CORPUSCULAR VOLUME 85 FL (80-99); MEAN PLATELET VOLUME 9.3 FL (7.4-10.4); MONOCYTES # (AUTO) 0.1 X 10^3 (0.0-1.0); MONOCYTES % (AUTO) 0 % (0-12); NEUTROPHILS # (AUTO) 11.1 X 10^3 (1.8-7.8); NEUTROPHILS % (AUTO) 92 % (42-75); PLATELET COUNT 461 10^3/uL (130-400); RED CELL DISTRIBUTION WIDTH 13.4 % (10.0-14.5); WHITE BLOOD COUNT 12.1 10^3/uL (4.3-11.0)
[2020-01-17] MEDS ORDERED: oxyCODONE/APAP 5/325MG (PERCOCET 5) TABLET PO ONE (01:45)
--- NOTE | 2020-01-17 01:47 | ED Back Pain ---
General Chief Complaint: Back Problems Stated Complaint: POST EPIDURAL BACK PAIN Nursing Triage Note: Pt to [facility] via [facility] with c/o lower back pain after getting an epidural yesterday. Pt last took a hydrocodone at 2230 without improvement. Nursing Sepsis Screen: No Definite Risk Source of Information: Patient, EMS Exam Limitations: No Limitations (ROSSI JARRETT STUDENT) History of Present Illness Date Seen by Provider: Jan 17, 2020 Time Seen by Provider: 01:30 Initial Comments Vane Correia is a 79 year old female seen today due to back pain. She reports having chronic back pain for which she received an epidural 01/14 at [facility], and reports worsening pain at the site of the epidural today starting at 5 pm. Denies any loss of sensation, numbness or tingling, or weakness. She was able to walk from her home to the ambulance on her own. She reports taking ibuprofen at 5:30 pm and hydrocodone at 10 pm, which she reports were ineffective in controlling her pain. The pain does not radiate. She reports she has chronic SOB, no history of COPD. Patient was a poor historian, unsure of her chronic medical conditions and daily medications. She has no fever or chills, nausea or vomiting, dysuria, abdominal pain, CP, or palpitation. Location: T-Spine Timing/Duration: 4-6 Hours Severity: Mild Pain/Injury Location: Back (ROSSI JARRETT STUDENT) Allergies and Home Medications Allergies Coded Allergies: Penicillins (Verified Allergy, Mild, 07/17/19) ketorolac (Verified Allergy, Mild, 07/17/19) morphine (Verified Allergy, Mild, 07/17/19) tetracycline (Verified Allergy, Mild, 07/17/19) paroxetine (Unverified Allergy, Unknown, 07/17/19) Home Medications Acetaminophen 500 Mg Tablet, 1,000 MG PO Q8H PRN for PAIN-MILD (1-4), (Reported) TAKES 2 (500 MG) TABLETS Benzonatate 100 Mg Capsule, 100 MG PO TID PRN for COUGH, (Reported) Betamethasone Dipropionate 15 Gm Cream..g., 1 APPLIC TD BID PRN for ITCHING, (Reported) Calcium Carbonate/Vitamin D3 1 Each Tablet, 1 TAB PO BID, (Reported) Carvedilol 3.125 Mg Tablet, 3.125 MG PO BID Prescribed by: TRACEE FLETCHER on 07/21/19 1118 Ferrous Sulfate 325 Mg Tablet, 325 MG PO DAILY, (Reported) Fexofenadine HCl 180 Mg Tablet, 180 MG PO DAILY, (Reported) Fluticasone Propionate 16 Gm [place].susp, 1 SPRAY NS DAILY, (Reported) Folic Acid 1 Mg Tablet, 1 MG PO DAILY, (Reported) Furosemide 40 Mg Tablet, 40 MG PO DAILY Prescribed by: TRACEE FLETCHER on 07/21/19 111 Guaifenesin 1,200 Mg Tab.er.12h, 1,200 MG PO BID PRN for CONGESTION, (Reported) Lidocaine HCl 76.5 Gm Cream..g., 76.5 GM TP QID PRN for BACK PAIN, (Reported) Lisinopril 20 Mg Tablet, 20 MG PO BID, (Reported) Loperamide HCl 2 Mg Capsule, 2 MG PO Q8H PRN for LOOSE STOOLS, (Reported) Lorazepam 0.5 Mg Tablet, 0.5 MG PO BID, (Reported) Montelukast Sodium 10 Mg Tablet, 10 MG PO HS, (Reported) Mupirocin 22 Gm Oint...g., 0 GM NSEACH BID Prescribed by: TRACEE FLETCHER on 07/21/191117 Omeprazole 20 Mg Capsule.dr, 20 MG PO DAILY, (Reported) Oxybutynin Chloride 10 Mg Tab.er.24, 10 MG PO DAILY, (Reported) Pravastatin Sodium 40 Mg Tablet, 40 MG PO HS, (Reported) Quetiapine Fumarate 100 Mg Tablet, 100 MG PO DAILY, (Reported) Rivaroxaban 20 Mg Tablet, 20 MG PO DAILY, (Reported) Rivastigmine Tartrate 1.5 Mg Capsule, 1.5 MG PO BID, (Reported) Sennosides/Docusate Sodium 1 Each Tablet, 1 EACH PO DAILY, (Reported) Tramadol HCl 50 Mg Tablet, 50 MG PO Q6H PRN for PAIN Prescribed by: BARBRA TORRES on 08/06/192101 Patient Home Medication List Home Medication List Reviewed: Yes (MELANIA WINSLOW) Review of Systems Constitutional: No chills, No dizziness, No fever EENTM: No nose congestion Respiratory: No cough; short of breath (chronic) Cardiovascular: No chest pain, No palpitations, No syncope Gastrointestinal: No abdominal pain, No constipation, No diarrhea, No nausea, No vomiting Genitourinary: No dysuria, No frequency Musculoskeletal: back pain (midthoracic epidural site pain) (ROSSI JARRETT) All Other Systems Reviewed Negative Unless Noted: Yes (MELANIA WINSLOW) Past Bjvhjgh-Fdjaub-Gkvdtu Hx Patient Social History Alcohol Use: Rarely Uses Number of Drinks Today: HH Alcohol Beverage of Choice: Wine Recreational Drug Use: No Smoking Status: Never a Smoker 2nd Hand Smoke Exposure: No Recent Foreign Travel: No Contact w/Someone Who Travel: No Recent Infectious Disease Expo: No Recent Hopitalizations: No (ROSSI JARRETT) Immunizations Up To Date Tetanus Booster (TDap): Unknown PED Vaccines UTD: Yes Date of Pneumonia Vaccine: Feb 10, 2015 Date of Influenza Vaccine: Apr 06, 2019 (ROSSI JARRETT) Seasonal Allergies Seasonal Allergies: No (ROSSI JARRETT) Past Medical History Surgeries: No Abdominal, Appendectomy, Eye Surgery, Gallbladder, 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, Joint Replacement, Orthopedic, Pacemaker Respiratory: No Asthma, Pulmonary Embolism, COPD Currently Using CPAP: No Currently Using BIPAP: No Cardiac: No High Cholesterol, Hypertension Neurological: No Dementia 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 Disorders: No Female 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 Disorders: Denies, Endometriosis 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, 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 Sexually Transmitted Disease: No HIV/AIDS: No Genitourinary: No Gastrointestinal: Yes (BLEEDING ULCER X 3; PERFORATED ULCER 2006; 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) Gastrointestinal Bleed, Chronic Diarrhea, Polyps, Ulcer, Irritable Bowel Musculoskeletal: Yes Degenerate Disk Disease, Arthritis, Chronic Back Pain, Fractures Endocrine: No HEENT: No Cataract Loss of Vision: Denies Hearing Impairment: Hard of Hearing Cancer: No Psychosocial: Yes Anxiety Integumentary: No Blood Disorders: Yes (BILATERAL P.E.'S 04/2018) Adverse Reaction/Blood Tranf: No (ROSSI JARRETT) Family Medical History Blood clots (sister had a blood clot in the brain which caused her  in 2010) Physical Exam Vital Signs Vital Signs - First Documented 01/17/20 01:27 Temp 36.7 Pulse 67 Resp 18 B/P (MAP) 151/78 (102) Pulse Ox 96 O2 Delivery Room Air (MELANIA WINSLOW) Vital Signs Capillary Refill : Less Than 3 Seconds (ROSSI JARRETT STUDENT) Height, Weight, BMI Height: 5'3.00" Weight: 150lbs. 0.0oz. 68.165964iw; 33.00 BMI Method:Stated General Appearance: No Apparent Distress, Anxious, Obese HEENT: PERRL/EOMI; No Scleral Icterus (L), No Scleral Icterus (R) Neck: Full Range of Motion, Normal Inspection, Non Tender, Supple Cardiovascular: Regular Rate, Rhythm, No Edema, No Murmur, Normal Peripheral Pulses Respiratory: Lungs Clear, Normal Breath Sounds, No Accessory Muscle Use, No Respiratory Distress Back: No CVA Tenderness; No Other (nontender midthoracic puncture wound) Extremity: Non Tender, No Calf Tenderness, No Pedal Edema Neurologic/Psychiatric: Alert, Oriented x3, Normal Mood/Affect Skin: Normal Color, Warm/Dry (ROSSI JARRETT MED STUDENT) Progress/Results/Core Measures Results/Orders Lab Results Laboratory Tests Test 01/17/20 01:30 01/17/20 01:45 Range/Units White Blood Count 12.1 H 4.3-11.0 10^3/uL Red Blood Count 3.70 L 4.35-5.85 10^6/uL Hemoglobin 10.3 L 11.5-16.0 G/DL Hematocrit 31 L 35-52 % Mean Corpuscular Volume 85 80-99 FL Mean Corpuscular Hemoglobin 28 25-34 PG Mean Corpuscular Hemoglobin Concent 33 32-36 G/DL Red Cell Distribution Width 13.4 10.0-14.5 % Platelet Count 461 H 130-400 10^3/uL Mean Platelet Volume 9.3 7.4-10.4 FL Neutrophils (%) (Auto) 92 H 42-75 % Lymphocytes (%) (Auto) 8 L 12-44 % Monocytes (%) (Auto) 0 0-12 % Eosinophils (%) (Auto) 0 0-10 % Basophils (%) (Auto) 0 0-10 % Neutrophils # (Auto) 11.1 H 1.8-7.8 X 10^3 Lymphocytes # (Auto) 0.9 L 1.0-4.0 X 10^3 Monocytes # (Auto) 0.1 0.0-1.0 X 10^3 Eosinophils # (Auto) 0.0 0.0-0.3 10^3/uL Basophils # (Auto) 0.0 0.0-0.1 10^3/uL Neutrophils % (Manual) 91 % Lymphocytes % (Manual) 5 % Band Neutrophils 4 % Toxic Granulation 1+ Dohle Bodies SLIGHT Blood Morphology Comment NORMAL Sodium Level 126 L 135-145 MMOL/L Potassium Level 5.1 H 3.6-5.0 MMOL/L Chloride Level 96 L 98-107 MMOL/L Carbon Dioxide Level 18 L 21-32 MMOL/L Anion Gap 12 5-14 MMOL/L Blood Urea Nitrogen 38 H 7-18 MG/DL Creatinine 1.47 H 0.60-1.30 MG/DL Estimat Glomerular Filtration Rate 34 BUN/Creatinine Ratio 26 Glucose Level 209 H 70-105 MG/DL Calcium Level 9.8 8.5-10.1 MG/DL Corrected Calcium 9.8 8.5-10.1 MG/DL Total Bilirubin 0.3 0.1-1.0 MG/DL Aspartate Amino Transf (AST/SGOT) 12 5-34 U/L Alanine Aminotransferase (ALT/SGPT) 13 0-55 U/L Alkaline Phosphatase 68 40-136 U/L C-Reactive Protein High Sensitivity 0.76 H 0.00-0.50 MG/DL Total Protein 7.0 6.4-8.2 GM/DL Albumin 4.0 3.2-4.5 GM/DL Urine Color YELLOW Urine Clarity CLEAR Urine pH 5.5 5-9 Urine Specific [place] 1.010 L 1.016-1.022 Urine Protein NEGATIVE NEGATIVE Urine Glucose (UA) NEGATIVE NEGATIVE Urine Ketones NEGATIVE NEGATIVE Urine Nitrite NEGATIVE NEGATIVE Urine Bilirubin NEGATIVE NEGATIVE Urine Urobilinogen 0.2 < = 1.0 MG/DL Urine Leukocyte Esterase NEGATIVE NEGATIVE Urine RBC (Auto) NEGATIVE NEGATIVE Urine RBC NONE /HPF Urine WBC NONE /HPF Urine Squamous Epithelial Cells RARE /HPF Urine Crystals NONE /LPF Urine Bacteria NEGATIVE /HPF Urine Casts NONE /LPF Urine Mucus NEGATIVE /LPF Urine Culture Indicated NO (MELANIA WINSLOW) My Orders Orders - MELANIA WINSLOW Ua Culture If Indicated (01/17/20 01:24) Cbc With Automated Diff (01/17/20 01:24) Comprehensive Metabolic Panel (01/17/20 01:24) Hs C Reactive Protein (01/17/20 01:24) Manual Differential (01/17/20 01:30) Oxycodone/Apap 5/325mg Tablet (Percocet (01/17/20 01:45) Ed Iv/Invasive Line Start (01/17/20 02:18) Ns Iv 1000 Ml (Sodium Chloride 0.9%) (01/17/20 02:18) (MELANIA WINSLOW) Medications Given in ED Current Medications Medications Dose Ordered Sig/Lee Route Start Time Stop Time Status Last Admin Dose Admin Oxycodone/ Acetaminophen 2 tab ONCE ONCE PO 01/17/20 01:45 01/17/20 01:46 DC 01/17/20 01:48 2 TAB (MELANIA WINSLOW) Vital Signs/I&O 01/17/20 01/17/20 01:27 03:22 Temp 36.7 36.7 Pulse 67 67 Resp 18 18 B/P (MAP) 151/78 (102) 144/81 (102) Pulse Ox 96 96 O2 Delivery Room Air Room Air (MELANIA WINSLOW) Blood Pressure Mean: 102 Progress Progress Note : Time: 02:23 Progress Note Patient seemed to be rather dramatic and on clinical exam does not exhibit any tenderness until it is suggested that she has no tenderness and then becomes tender everywhere. She was given 2 Percocet 5 mg and promptly fell asleep. Her labs do suggest she is a little bit on the dry side which is probably due to her furosemide. We'll give her a little IV fluids and let her go home and follow up outpatient for her chronic back pain. No evidence of infection in her back. We discussed the case with her daughter Naomy Dumas is going to give her a ride home since her IV fluids are done. I attest that I saw this patient alongside the medical student and agree with his documented history, physical exam and review of systems except as otherwise noted. (MELANIA WINSLOW) Departure Impression Primary Impression: Chronic midline thoracic back pain Disposition: 01 HOME, SELF-CARE Condition: Stable Departure-Patient Inst. Decision time for Depature: 02:25 (MELANIA WINSLOW) Referrals: BRAD HDEZ MD (PCP/Family) Primary Care Physician Patient Instructions: Upper Back Pain (DC) Add. Discharge Instructions: Get sleep tonight. Tomorrow if you're still having pain despite pain medicines prescribed to you then you should follow-up with your primary care doctor or surgeon. If you start to have loss of control of your bowel and/or bladder, numbness, weakness, inability to stand, chest pain or shortness of breath then you need to return to the nearest ER. All discharge instructions reviewed with patient and/or family. Voiced understanding. ROSSI JARRETT MED STUDENT Jan 17, 2020 01:47 MELANIA WINSLOW Jan 17, 2020 02:27
[2020-01-17 01:51] LABS: BILIRUBIN,URINE NEGATIVE (NEGATIVE); CLARITY,URINE CLEAR; COLOR,URINE YELLOW; GLUCOSE, URINE (UA) NEGATIVE (NEGATIVE); KETONES,URINE NEGATIVE (NEGATIVE); LEUKOCYTE ESTERASE ,URINE NEGATIVE (NEGATIVE); NITRITE,URINE NEGATIVE (NEGATIVE); PH,URINE 5.5 (5-9); PROTEIN,URINE NEGATIVE (NEGATIVE)
[2020-01-17 01:52] LABS: POTASSIUM 5.1 MMOL/L (3.6-5.0)
[2020-01-17 01:53] LABS: CALCIUM 9.8 MG/DL (8.5-10.1)
[2020-01-17 01:56] LABS: BILIRUBIN,TOTAL 0.3 MG/DL (0.1-1.0)
[2020-01-17 01:58] LABS: CREATININE SERUM 1.47 MG/DL (0.60-1.30)
[2020-01-17 02:05] LABS: BACTERIA,URINE NEGATIVE /HPF; SQUAMOUS EPITHELIAL CELL,UR RARE /HPF
[2020-01-17] MEDS ORDERED: NS IV 1000 ML 1,000 ML IV SCH (02:18)
[2020-01-17 02:51] LABS: BAND NEUTROPHILS 4 %; LYMPHOCYTES % (MANUAL) 5 %; NEUTROPHILS % (MANUAL) 91 %; RBC MORPH NORMAL; TOXIC GRANULATION/VACUOLAZATIO 1+
[2020-01-17 03:22] VITALS: BP 144/81
== END 2020-01-17 03:24 | disposition home or self-care (01) ==
LOC: EDUNIT# 01:20 → ER 01:22
DX: G89.29 Other chronic pain (principal); M54.6 Pain in thoracic spine; J44.9 Chronic obstructive pulmonary disease, unspecified; I10 Essential (primary) hypertension; E78.00 Pure hypercholesterolemia, unspecified; F03.90 Unspecified dementia, unspecified severity, without behavioral disturbance, psychotic disturbance, mood disturbance, and anxiety; F41.9 Anxiety disorder, unspecified; K58.0 Irritable bowel syndrome with diarrhea; M54.9 Dorsalgia, unspecified; Z88.0 Allergy status to penicillin; Z88.6 Allergy status to analgesic agent; Z88.5 Allergy status to narcotic agent; Z86.711 Personal history of pulmonary embolism; Z95.0 Presence of cardiac pacemaker; Z88.1 Allergy status to other antibiotic agents; Z88.8 Allergy status to other drugs, medicaments and biological substances; Z79.51 Long term (current) use of inhaled steroids; Z79.01 Long term (current) use of anticoagulants
CPT/HCPCS: 36415; 80053; 81000; 85007; 85027; 86141

== ENCOUNTER 2020-01-20 19:37 | Emergency (ER) | payer MEDICARE, MEDICAID ==
[~2020-01-20] VITALS: Ht 157.5 cm; Wt 91.7 kg
[2020-01-20] MEDS ORDERED: NS IV 1000 ML 1,000 ML IV SCH ×2 (19:55→23:25)
[2020-01-20 20:03] LABS: BASOPHILS # (AUTO) 0.1 10^3/uL (0.0-0.1); BASOPHILS % (AUTO) 0 % (0-10); EOSINOPHILS # (AUTO) 0.4 10^3/uL (0.0-0.3); EOSINOPHILS % (AUTO) 3 % (0-10); HEMATOCRIT 30 % (35-52); HEMOGLOBIN 9.8 G/DL (11.5-16.0); LYMPHOCYTES # (AUTO) 3.2 X 10^3 (1.0-4.0); LYMPHOCYTES % (AUTO) 22 % (12-44); MEAN CORPUSCULAR HEMOGLOBIN 28 PG (25-34); MEAN CORPUSCULAR HGB CONC 33 G/DL (32-36); MEAN CORPUSCULAR VOLUME 86 FL (80-99); MEAN PLATELET VOLUME 9.4 FL (7.4-10.4); MONOCYTES # (AUTO) 1.3 X 10^3 (0.0-1.0); MONOCYTES % (AUTO) 9 % (0-12); NEUTROPHILS # (AUTO) 9.8 X 10^3 (1.8-7.8); NEUTROPHILS % (AUTO) 67 % (42-75); PLATELET COUNT 463 10^3/uL (130-400); RED CELL DISTRIBUTION WIDTH 13.6 % (10.0-14.5); WHITE BLOOD COUNT 14.8 10^3/uL (4.3-11.0)
--- NOTE | 2020-01-20 20:13 | Diagnostic Imaging Report ---
INDICATION: Chest pain, anxiety. COMPARISON STUDY: Chest from 10/28/2019. FINDINGS: Frontal view of the chest again demonstrates cardiac pacemaker in place. Lungs are clear. The heart and vascularity are normal. There are no pleural effusions. Postoperative changes are again seen to the right shoulder. IMPRESSION: There are no acute findings. Dictated by: Dictated on workstation # [id number]
[2020-01-20 20:16] LABS: INR 1.2 (0.8-1.4); PROTHROMBIN TIME PATIENT 15.8 SEC (12.2-14.7)
[2020-01-20 20:21] LABS: ALANINE AMINOTRANSFERASE 10 U/L (0-55); ALBUMIN 3.6 GM/DL (3.2-4.5); ALKALINE PHOSPHATASE 58 U/L (40-136); BILIRUBIN,TOTAL 0.3 MG/DL (0.1-1.0); BUN/CREATININE RATIO 24; CALCIUM 9.3 MG/DL (8.5-10.1); CARBON DIOXIDE 21 MMOL/L (21-32); CHLORIDE 99 MMOL/L (98-107); CREATININE SERUM 1.21 MG/DL (0.60-1.30); GFR ESTIMATED 43; GLUCOSE 96 MG/DL (70-105); MAGNESIUM 1.9 MG/DL (1.6-2.4); POTASSIUM 4.4 MMOL/L (3.6-5.0); SODIUM 129 MMOL/L (135-145)
[2020-01-20 20:32] LABS: EOSINOPHILS % (MANUAL) 2 %; LYMPHOCYTES % (MANUAL) 25 %; MONOCYTES % (MANUAL) 8 %; NEUTROPHILS % (MANUAL) 66 %; RBC MORPH NORMAL
[2020-01-20 21:38] LABS: BILIRUBIN,URINE NEGATIVE (NEGATIVE); CLARITY,URINE CLEAR; COLOR,URINE YELLOW; GLUCOSE, URINE (UA) NEGATIVE (NEGATIVE); KETONES,URINE NEGATIVE (NEGATIVE); LEUKOCYTE ESTERASE ,URINE NEGATIVE (NEGATIVE); NITRITE,URINE NEGATIVE (NEGATIVE); PROTEIN,URINE NEGATIVE (NEGATIVE)
[2020-01-20 21:53] LABS: AMORPHOUS SEDIMENT,UR RARE AMOR URATES /LPF; BACTERIA,URINE NEGATIVE /HPF
[2020-01-20 23:26] VITALS: BP_SYST 112; BP_SYST 75; BP_SYST 99; BP_DIAS 52; BP_DIAS 53; BP_DIAS 54
[2020-01-21 02:00] VITALS: BP_SYST 101; BP_SYST 122; BP_SYST 125; BP_DIAS 66; BP_DIAS 89; BP_DIAS 90
--- NOTE | 2020-01-21 02:08 | ED General ---
General Chief Complaint: Psych/Social Disorder Stated Complaint: ANXIETY Nursing Triage Note: PT TO ROOM 07 VIA EMS WITH C/O ANXIETY. EMS REPORTS PT HAD OXYCOTIN EARLIER TODAY FOR BACK PAIN AND DID NOT FEEL WELL AFTER THIS. Nursing Sepsis Screen: No Definite Risk Source of Information: Patient Exam Limitations: No Limitations History of Present Illness Date Seen by Provider: Jan 20, 2020 Time Seen by Provider: 19:39 Initial Comments This 79-year-old woman presents to the emergency room via EMS with vague complaints of anxiousness, her "chest feeling weird", dizziness, and back pain. EMS reported that her blood pressure lying down was 79/42. Sitting up it was 117/60. She had a spinal injection on Thursday and has had issues since then. She complains of mid back pain. She states her chest feels a little tight and rates her pain as 5/10. This pain radiates toward the mid back. Patient has a pacemaker. Heart catheter earlier this year showed no obstructive disease. She had impaired EF of 35 percent. She is on diuretic therapy. She is afebrile and denies cough or shortness of breath. She has had no known COVID19 exposures. Allergies and Home Medications Allergies Coded Allergies: Penicillins (Verified Allergy, Mild, 07/17/19) ketorolac (Verified Allergy, Mild, 07/17/19) morphine (Verified Allergy, Mild, 07/17/19) tetracycline (Verified Allergy, Mild, 07/17/19) paroxetine (Unverified Allergy, Unknown, 07/17/19) Home Medications Acetaminophen 500 Mg Tablet, 1,000 MG PO Q8H PRN for PAIN-MILD (1-4), (Reported) TAKES 2 (500 MG) TABLETS Benzonatate 100 Mg Capsule, 100 MG PO TID PRN for COUGH, (Reported) Betamethasone Dipropionate 15 Gm Cream..g., 1 APPLIC TD BID PRN for ITCHING, (Reported) Calcium Carbonate/Vitamin D3 1 Each Tablet, 1 TAB PO BID, (Reported) Carvedilol 3.125 Mg Tablet, 3.125 MG PO BID Prescribed by: TRACEE FLETCHER on 07/21/19 1118 Ferrous Sulfate 325 Mg Tablet, 325 MG PO DAILY, (Reported) Fexofenadine HCl 180 Mg Tablet, 180 MG PO DAILY, (Reported) Fluticasone Propionate 16 Gm [place].susp, 1 SPRAY NS DAILY, (Reported) Folic Acid 1 Mg Tablet, 1 MG PO DAILY, (Reported) Furosemide 40 Mg Tablet, 40 MG PO DAILY Prescribed by: TRACEE FLETCHER on 07/21/19 111 Guaifenesin 1,200 Mg Tab.er.12h, 1,200 MG PO BID PRN for CONGESTION, (Reported) Lidocaine HCl 76.5 Gm Cream..g., 76.5 GM TP QID PRN for BACK PAIN, (Reported) Lisinopril 20 Mg Tablet, 20 MG PO BID, (Reported) Loperamide HCl 2 Mg Capsule, 2 MG PO Q8H PRN for LOOSE STOOLS, (Reported) Lorazepam 0.5 Mg Tablet, 0.5 MG PO BID, (Reported) Montelukast Sodium 10 Mg Tablet, 10 MG PO HS, (Reported) Mupirocin 22 Gm Oint...g., 0 GM NSEACH BID Prescribed by: TRACEE FLETCHER on 07/21/191117 Omeprazole 20 Mg Capsule.dr, 20 MG PO DAILY, (Reported) Oxybutynin Chloride 10 Mg Tab.er.24, 10 MG PO DAILY, (Reported) Pravastatin Sodium 40 Mg Tablet, 40 MG PO HS, (Reported) Quetiapine Fumarate 100 Mg Tablet, 100 MG PO DAILY, (Reported) Rivaroxaban 20 Mg Tablet, 20 MG PO DAILY, (Reported) Rivastigmine Tartrate 1.5 Mg Capsule, 1.5 MG PO BID, (Reported) Sennosides/Docusate Sodium 1 Each Tablet, 1 EACH PO DAILY, (Reported) Tramadol HCl 50 Mg Tablet, 50 MG PO Q6H PRN for PAIN Prescribed by: BARBRA TORRES on 08/06/192101 Patient Home Medication List Home Medication List Reviewed: Yes Review of Systems Review of Systems Constitutional: no symptoms reported EENTM: no symptoms reported Respiratory: no symptoms reported Cardiovascular: see HPI Gastrointestinal: no symptoms reported Genitourinary: no symptoms reported : No Musculoskeletal: see HPI Skin: no symptoms reported Psychiatric/Neurological: See HPI Hematologic/Lymphatic: No Symptoms Reported Immunological/Allergic: no symptoms reported Past Fjnemzz-Rdclfg-Erekqc Hx Past Med/Social Hx: Reviewed Nursing Past Med/Soc Hx Patient Social History Alcohol Use: Denies Use Number of Drinks Today: Alcohol Beverage of Choice: Wine Recreational Drug Use: No Smoking Status: Never a Smoker 2nd Hand Smoke Exposure: No Recent Foreign Travel: No Contact w/Someone Who Travel: No Recent Infectious Disease Expo: No Recent Hopitalizations: No Physical Abuse: No Sexual Abuse: No Mistreated: No Fear: No Immunizations Up To Date Tetanus Booster (TDap): Unknown PED Vaccines UTD: Yes Date of Pneumonia Vaccine: Feb 10, 2015 Date of Influenza Vaccine: Apr 06, 2019 Seasonal Allergies Seasonal Allergies: No Past Medical History Surgeries: Yes Abdominal, Appendectomy, Eye Surgery, Gallbladder, 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, Joint Replacement, Orthopedic, Pacemaker Respiratory: Yes Asthma, Pulmonary Embolism, COPD Currently Using CPAP: No Currently Using BIPAP: No Cardiac: Yes (Congestive heart failure with EF of 35 percent) High Cholesterol, Hypertension Neurological: Yes Dementia 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 Disorders: No Female 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 Disorders: Denies, 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, 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 Sexually Transmitted Disease: No HIV/AIDS: No Genitourinary: No Gastrointestinal: Yes (BLEEDING ULCER X 3; PERFORATED ULCER 2006; 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) Gastrointestinal Bleed, Chronic Diarrhea, Polyps, Ulcer, Irritable Bowel Musculoskeletal: Yes Degenerate Disk Disease, Arthritis, Chronic Back Pain, Fractures Endocrine: No HEENT: No Cataract Loss of Vision: Denies Hearing Impairment: Hard of Hearing Cancer: No Psychosocial: Yes Anxiety Integumentary: No Blood Disorders: Yes (BILATERAL P.E.'S 04/2018) Adverse Reaction/Blood Tranf: No Family Medical History Blood clots (sister had a blood clot in the brain which caused her  in 2010) Physical Exam Vital Signs Vital Signs - First Documented 01/20/20 01/21/20 19:41 02:25 Temp 36.6 Pulse 77 Resp 17 B/P (MAP) 131/108 (116) Pulse Ox 97 O2 Delivery Room Air Capillary Refill : Less Than 3 Seconds Height, Weight, BMI Height: 5'3.00" Weight: 150lbs. 0.0oz. 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, Other (Mildly anxious) Skin: Normal Color, Warm/Dry Progress/Results/Core Measures Suspected Sepsis Recent Fever Within 48 Hours: No Infection Criteria Present: None New/Unexplained Altered Menta: No Sepsis Screen: No Definite Risk SIRS Temperature: Pulse: 99 Respiratory Rate: 17 Laboratory Tests 01/20/20 19:55: White Blood Count 14.8H Blood Pressure 75 /54 Mean: 61 Laboratory Tests 01/20/20 19:55: Creatinine 1.21, INR Comment 1.2, Platelet Count 463H, Total Bilirubin 0.3 Results/Orders Lab Results Laboratory Tests Test 01/20/20 19:55 01/20/20 21:30 01/20/20 22:38 Range/Units White Blood Count 14.8 H 4.3-11.0 10^3/uL Red Blood Count 3.49 L 4.35-5.85 10^6/uL Hemoglobin 9.8 L 11.5-16.0 G/DL Hematocrit 30 L 35-52 % Mean Corpuscular Volume 86 80-99 FL Mean Corpuscular Hemoglobin 28 25-34 PG Mean Corpuscular Hemoglobin Concent 33 32-36 G/DL Red Cell Distribution Width 13.6 10.0-14.5 % Platelet Count 463 H 130-400 10^3/uL Mean Platelet Volume 9.4 7.4-10.4 FL Neutrophils (%) (Auto) 67 42-75 % Lymphocytes (%) (Auto) 22 12-44 % Monocytes (%) (Auto) 9 0-12 % Eosinophils (%) (Auto) 3 0-10 % Basophils (%) (Auto) 0 0-10 % Neutrophils # (Auto) 9.8 H 1.8-7.8 X 10^3 Lymphocytes # (Auto) 3.2 1.0-4.0 X 10^3 Monocytes # (Auto) 1.3 H 0.0-1.0 X 10^3 Eosinophils # (Auto) 0.4 H 0.0-0.3 10^3/uL Basophils # (Auto) 0.1 0.0-0.1 10^3/uL Neutrophils % (Manual) 66 % Lymphocytes % (Manual) 25 % Monocytes % (Manual) 8 % Eosinophils % (Manual) 2 % Blood Morphology Comment NORMAL Prothrombin Time 15.8 H 12.2-14.7 SEC INR Comment 1.2 0.8-1.4 Activated Partial Thromboplast Time 31 24-35 SEC Sodium Level 129 L 135-145 MMOL/L Potassium Level 4.4 3.6-5.0 MMOL/L Chloride Level 99 98-107 MMOL/L Carbon Dioxide Level 21 21-32 MMOL/L Anion Gap 9 5-14 MMOL/L Blood Urea Nitrogen 29 H 7-18 MG/DL Creatinine 1.21 0.60-1.30 MG/DL Estimat Glomerular Filtration Rate 43 BUN/Creatinine Ratio 24 Glucose Level 96 70-105 MG/DL Calcium Level 9.3 8.5-10.1 MG/DL Corrected Calcium 9.6 8.5-10.1 MG/DL Magnesium Level 1.9 1.6-2.4 MG/DL Total Bilirubin 0.3 0.1-1.0 MG/DL Aspartate Amino Transf (AST/SGOT) 12 5-34 U/L Alanine Aminotransferase (ALT/SGPT) 10 0-55 U/L Alkaline Phosphatase 58 40-136 U/L Myoglobin 39.0 10.0-92.0 NG/ML Troponin I < 0.028 < 0.028 <0.028 NG/ML C-Reactive Protein High Sensitivity 0.48 0.00-0.50 MG/DL B-Type Natriuretic Peptide < 10.0 <100.0 PG/ML Total Protein 6.0 L 6.4-8.2 GM/DL Albumin 3.6 3.2-4.5 GM/DL Urine Color YELLOW Urine Clarity CLEAR Urine pH 6.0 5-9 Urine Specific [place] <=1.005 1.016-1.022 Urine Protein NEGATIVE NEGATIVE Urine Glucose (UA) NEGATIVE NEGATIVE Urine Ketones NEGATIVE NEGATIVE Urine Nitrite NEGATIVE NEGATIVE Urine Bilirubin NEGATIVE NEGATIVE Urine Urobilinogen 0.2 < = 1.0 MG/DL Urine Leukocyte Esterase NEGATIVE NEGATIVE Urine RBC (Auto) NEGATIVE NEGATIVE Urine RBC NONE /HPF Urine WBC NONE /HPF Urine Crystals PRESENT H /LPF Urine Amorphous Sediment RARE KRIS URATES H /LPF Urine Bacteria NEGATIVE /HPF Urine Casts NONE /LPF Urine Mucus NEGATIVE /LPF Urine Culture Indicated NO My Orders Orders - SPIKE NIX MD Cbc With Automated Diff (01/20/20 19:55) Magnesium (01/20/20 19:55) Chest 1 View, Ap/Pa Only (01/20/20 19:55) Ekg Tracing (01/20/20:55) Comprehensive Metabolic Panel (01/20/20 19:55) Myoglobin Serum (01/20/20 19:55) Protime With Inr (01/20/20:55) Partial Thromboplastin Time (01/20/20:55) O2 (01/20/20:55) Monitor-Rhythm Ecg Trace Only (01/20/20:55) Ed Iv/Invasive Line Start (01/20/20:55) BNP (01/20/20:55) Ua Culture If Indicated (01/20/20:) Ns Iv 1000 Ml (Sodium Chloride 0.9%) (01/20/20 19:55) Troponin I (01/20/20:55) Manual Differential (01/20/20:) Hs C Reactive Protein (01/20/20 20:46) Troponin I (01/20/20 22:33) Orthostatic Vital Signs (Adult (01/20/20 23:25) Orthostatic Vital Signs (Adult (01/20/20 23:25) Ns Iv 1000 Ml (Sodium Chloride 0.9%) (01/20/20 23:25) Vital Signs/I&O 01/21/20 00:00 Intake Total 1000 ml Balance 1000 ml Capillary Refill : Less Than 3 Seconds Blood Pressure Mean: 61 Progress Note : Progress Note Patient was seen and examined. Initial cardiopulmonary workup was unremarkable. Repeat troponin was performed at 3 hours and was unremarkable. Patient was found to still have orthostatic hypotension after a liter of IV fluid. Orthostatic blood pressures at 23:20 are as follows: Lying 112/53, 71 Sitting 99/52, 72 Standing 75/54, 99 After second liter of IV fluid orthostatic blood pressures at 01:52 were: Lying 101/66, 75 Sitting 125/90, 90 Standing 122/89, 89 Patient was ultimately discharged into the care of her daughter. She is on diuretics and probably needs her medications reviewed given the hypotension she experienced today. I suggested close follow-up in the clinic. ECG Initial ECG Impression Date: Jan 20, 2020 Initial ECG Impression Time: 19:42 Initial ECG Rate: 81 Comment Atrial paced rhythm. Subtle ST changes similar to prior. Right bundle branch block. No abnormal intervals or axis deviation. Diagnostic Imaging Diagonstic Imaging: Xray Plain Films/CT/US/NM/MRI: chest Comments Chest x-ray viewed by me. Report not yet available. No acute abnormalities appreciated. Departure Impression Primary Impression: Orthostatic hypotension Additional Impression: Atypical chest pain Disposition: HOME, SELF-CARE Condition: Improved Departure-Patient Inst. Decision time for Depature: 02:07 Referrals: BRAD HDEZ MD (PCP/Family) Primary Care Physician Patient Instructions: Orthostatic Hypotension Add. Discharge Instructions: Drink plenty of clear liquids. Continue with your medications as previously prescribed. Follow-up with Dr. Hdez on Thursday. Return to care if you have worsening symptoms again. All discharge instructions reviewed with patient and/or family. Voiced understanding. Copy Copies To 1: BRAD HDEZ MD Copies To 2: CHRISTY DELGADO MD FACP FAC CCDS; Kody CARDOZO MD, JOSHUA T MD Jan 21, 2020 02:08
[2020-01-21 02:25] VITALS: BP 103/47
== END 2020-01-21 02:25 | disposition home or self-care (01) ==
LOC: EDUNIT# 19:37 → ER 19:38
DX: I95.1 Orthostatic hypotension (principal); R07.89 Other chest pain; M54.89 Other dorsalgia; I11.9 Hypertensive heart disease without heart failure; I50.9 Heart failure, unspecified; E78.00 Pure hypercholesterolemia, unspecified; J44.9 Chronic obstructive pulmonary disease, unspecified; F03.90 Unspecified dementia, unspecified severity, without behavioral disturbance, psychotic disturbance, mood disturbance, and anxiety; K58.0 Irritable bowel syndrome with diarrhea; G89.29 Other chronic pain; F41.9 Anxiety disorder, unspecified; Z79.891 Long term (current) use of opiate analgesic; Z95.0 Presence of cardiac pacemaker; Z86.711 Personal history of pulmonary embolism; Z95.9 Presence of cardiac and vascular implant and graft, unspecified; Z88.0 Allergy status to penicillin; Z88.6 Allergy status to analgesic agent; Z88.5 Allergy status to narcotic agent; Z88.1 Allergy status to other antibiotic agents; Z88.8 Allergy status to other drugs, medicaments and biological substances; Z79.01 Long term (current) use of anticoagulants; Z79.51 Long term (current) use of inhaled steroids
CPT/HCPCS: 36415; 71045; 80053; 81000; 83735; 83874; 83880; 84484; 85007; 85027; 85610; 85730; 86141; 93005; 93041

== ENCOUNTER → 2020-01-30 | Outpatient (CLI) | payer MEDICARE, MEDICAID | LOC: CARD 14:30 | PROVIDERS: ATTEND Internal Medicine Interventional Cardiology | DX: I50.42 Chronic combined systolic (congestive) and diastolic (congestive) heart failure (principal); I42.9 Cardiomyopathy, unspecified; I34.0 Nonrheumatic mitral (valve) insufficiency | CPT/HCPCS: 93306 ==

== ENCOUNTER → 2020-02-23 | Outpatient (CLI) | payer MEDICARE, MEDICAID ==
[~2020-02-23] MED LIST changes: -CALC600T14 PO; +CLC600T PO
--- NOTE | 2020-02-23 10:37 | Diagnostic Imaging Report ---
INDICATION: Pre-MRI screening. TIME OF EXAM: 10:29 a.m. COMPARISON: Correlation is made with prior chest from 01/20/2020. FINDINGS: Dual-lead left subclavian cardiac pacemaker remains in place with lead tips in the region of right atrium and right ventricle. No definite abandoned leads are identified. Heart size is normal. Lungs are clear. Pulmonary vascularity is normal. There is no effusion or pneumothorax. There is a moderate-sized hiatal hernia. Postop changes in the right shoulder are identified. IMPRESSION: 1. No acute cardiopulmonary process is detected. 2. No evidence of abandoned pacemaker leads. 3. Moderate-sized hiatal hernia. Dictated by: Dictated on workstation # [id number]
== END ==
LOC: RAD 11:00
PROVIDERS: ATTEND Pain Medicine Interventional Pain Medicine
DX: K44.9 Diaphragmatic hernia without obstruction or gangrene (principal); M48.54XA Collapsed vertebra, not elsewhere classified, thoracic region, initial encounter for fracture
CPT/HCPCS: 71045

== ENCOUNTER 2020-04-30 08:52 | Inpatient (IN) | payer MEDICARE, MEDICAID ==
[~2020-04-30] VITALS: Ht 162.6 cm; Wt 88.6 kg
[2020-04-30] VITALS (7 sets, daily range): BP systolic 146–156; BP diastolic 64–85
[~2020-04-30 08:52] MED LIST changes: +AMLO-250 PO; -AMLO5TAB9 PO; -CALC-6 PO; +CALC1TAB84 PO
[2020-04-30] MEDS ORDERED: ALPRAZolam 0.5 MG (XANAX) TAB PO SCH (09:15)
[2020-04-30] MEDS ORDERED: oxyCODONE/APAP 5/325MG (PERCOCET 5) TABLET PO ONE (09:15)
--- NOTE | 2020-04-30 09:39 | ED Back Pain ---
General Chief Complaint: Back Problems Stated Complaint: ANXEITY, BACK PAIN Nursing Triage Note: pt presents to ed via ems for mid back pain and anxiety starting this am but reports she has chronic back pain that flares up. pt reports she has anxiety because of the pain. Nursing Sepsis Screen: No Definite Risk Source of Information: Patient, EMS Exam Limitations: No Limitations History of Present Illness Date Seen by Provider: Apr 30, 2020 Time Seen by Provider: 09:00 Initial Comments Here with report of mid back pain. She has had this multiple times frequently and has known thoracic compression fracture that flares occasionally. Patient denies chest pain, nausea, vomiting, fever, weakness or breathing problems. She did take 2 Tylenol for the pain this morning but she does not remember when. It has been several hours ago per the patient. Denies recent falls or injuries. She is very anxious and does have history of anxiety associated with this. Has been seen previously for similar in the past with negative work-ups. Timing/Duration: 4-6 Hours Severity: Moderate Pain/Injury Location: Back Method of Injury: Unknown Modifying Factors: Worse With Movement; Improves With Pain Medication Associated Symptoms: muscle spasms; No fever, No weakness, No tingling in legs/feet, No sensory/motor loss, No lower back pain, No loss of bladder control, No loss of bowel control Allergies and Home Medications Allergies Coded Allergies: Penicillins (Verified Allergy, Mild, 07/17/19) ketorolac (Verified Allergy, Mild, 07/17/19) morphine (Verified Allergy, Mild, 07/17/19) tetracycline (Verified Allergy, Mild, 07/17/19) paroxetine (Unverified Allergy, Unknown, 07/17/19) Home Medications Acetaminophen 500 Mg Tablet, 1,000 MG PO Q8H PRN for PAIN-MILD (1-4), (Reported) TAKES 2 (500 MG) TABLETS Benzonatate 100 Mg Capsule, 100 MG PO TID PRN for COUGH, (Reported) Betamethasone Dipropionate 15 Gm Cream..g., 1 APPLIC TD BID PRN for ITCHING, (Reported) Calcium Carbonate/Vitamin D3 1 Each Tablet, 1 TAB PO BID, (Reported) Carvedilol 3.125 Mg Tablet, 3.125 MG PO BID Prescribed by: TRACEE FLETCHER on 07/21/19 1118 Ferrous Sulfate 325 Mg Tablet, 325 MG PO DAILY, (Reported) Fexofenadine HCl 180 Mg Tablet, 180 MG PO DAILY, (Reported) Fluticasone Propionate 16 Gm [place].susp, 1 SPRAY NS DAILY, (Reported) Folic Acid 1 Mg Tablet, 1 MG PO DAILY, (Reported) Furosemide 40 Mg Tablet, 40 MG PO DAILY Prescribed by: TRACEE FLETCHER on 07/21/19 1118 Guaifenesin 1,200 Mg Tab.er.12h, 1,200 MG PO BID PRN for CONGESTION, (Reported) Lidocaine HCl 76.5 Gm Cream..g., 76.5 GM TP QID PRN for BACK PAIN, (Reported) Lisinopril 20 Mg Tablet, 20 MG PO BID, (Reported) Loperamide HCl 2 Mg Capsule, 2 MG PO Q8H PRN for LOOSE STOOLS, (Reported) Lorazepam 0.5 Mg Tablet, 0.5 MG PO BID, (Reported) Montelukast Sodium 10 Mg Tablet, 10 MG PO HS, (Reported) Mupirocin 22 Gm Oint...g., 0 GM NSEACH BID Prescribed by: TRACEE FLETCHER on 07/21/191117 Omeprazole 20 Mg Capsule.dr, 20 MG PO DAILY, (Reported) Oxybutynin Chloride 10 Mg Tab.er.24, 10 MG PO DAILY, (Reported) Pravastatin Sodium 40 Mg Tablet, 40 MG PO HS, (Reported) Quetiapine Fumarate 100 Mg Tablet, 100 MG PO DAILY, (Reported) Rivaroxaban 20 Mg Tablet, 20 MG PO DAILY, (Reported) Rivastigmine Tartrate 1.5 Mg Capsule, 1.5 MG PO BID, (Reported) Sennosides/Docusate Sodium 1 Each Tablet, 1 EACH PO DAILY, (Reported) Tramadol HCl 50 Mg Tablet, 50 MG PO Q6H PRN for PAIN Prescribed by: BARBRA TORRES on 08/06/192101 Patient Home Medication List Home Medication List Reviewed: Yes Review of Systems Constitutional: see HPI; No chills, No fever Respiratory: No cough, No short of breath Cardiovascular: No chest pain Gastrointestinal: no symptoms reported Genitourinary: no symptoms reported Musculoskeletal: back pain; No joint pain Skin: No change in color, No lesions Psychiatric/Neurological: Anxiety, Emotional Problems Past [place]ia-Wxfkls-Trsjsl Hx Past Med/Social Hx: Reviewed Nursing Past Med/Soc Hx Patient Social History Alcohol Use: Denies Use Number of Drinks Today: Alcohol Beverage of Choice: Wine Recreational Drug Use: No Smoking Status: Never a Smoker 2nd Hand Smoke Exposure: No Recent Foreign Travel: No Contact w/Someone Who Travel: No Recent Infectious Disease Expo: No Recent Hopitalizations: No Physical Abuse: No Sexual Abuse: No Mistreated: No Fear: No Immunizations Up To Date Tetanus Booster (TDap): Unknown PED Vaccines UTD: Yes Date of Pneumonia Vaccine: Feb 10, 2015 Date of Influenza Vaccine: Apr 06, 2019 Seasonal Allergies Seasonal Allergies: No Past Medical History Surgeries: Yes Abdominal, Appendectomy, Eye Surgery, Gallbladder, 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, Joint Replacement, Orthopedic, Pacemaker Respiratory: Yes Asthma, Pulmonary Embolism, COPD Currently Using CPAP: No Currently Using BIPAP: No Cardiac: Yes (Congestive heart failure with EF of 35 percent) High Cholesterol, Hypertension Neurological: Yes Dementia 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 Disorders: No Female 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 Disorders: Denies, 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, 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 Sexually Transmitted Disease: No HIV/AIDS: No Genitourinary: No Gastrointestinal: Yes (BLEEDING ULCER X 3; PERFORATED ULCER 2005; 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) Gastrointestinal Bleed, Chronic Diarrhea, Polyps, Ulcer, Irritable Bowel Musculoskeletal: Yes Degenerate Disk Disease, Arthritis, Chronic Back Pain, Fractures Endocrine: No HEENT: No Cataract Loss of Vision: Denies Hearing Impairment: Hard of Hearing Cancer: No Psychosocial: Yes Anxiety Integumentary: No Blood Disorders: Yes (BILATERAL P.E.'S 04/2018) Adverse Reaction/Blood Tranf: No Family Medical History Reviewed Nursing Family Hx Blood clots (sister had a blood clot in the brain which caused her  in 2010) Physical Exam Vital Signs Vital Signs - First Documented 04/30/20 09:03 Temp 36.3 Pulse 86 Resp 18 B/P (MAP) 198/81 (120) Pulse Ox 96 Capillary Refill : Less Than 3 Seconds Height, Weight, BMI Height: 5'3.00" Weight: 150lbs. 0.0oz. 68.127417nn; 33.00 BMI Method:Stated General Appearance: Anxious, Mild Distress HEENT: PERRL/EOMI, Pharynx Normal Neck: Non Tender, Supple Cardiovascular: Regular Rate, Rhythm, No Murmur Respiratory: Lungs Clear, Normal Breath Sounds Gastrointestinal: Non Tender, Soft Back: Muscle Spasm, Other (Tender over the mid thoracic region) Extremity: Normal Range of Motion, Non Tender Neurologic/Psychiatric: Alert, Oriented x3 Skin: Normal Color, Warm/Dry Progress/Results/Core Measures Results/Orders Lab Results Laboratory Tests Test 04/30/20 09:20 04/30/20 10:32 Range/Units White Blood Count 14.9 H 4.3-11.0 10^3/uL Red Blood Count 3.33 L 3.80-5.11 10^6/uL Hemoglobin 6.7 *L 11.5-16.0 g/dL Hematocrit 23 L 35-52 % Mean Corpuscular Volume 68 L 80-99 fL Mean Corpuscular Hemoglobin 20 L 25-34 pg Mean Corpuscular Hemoglobin Concent 30 L 32-36 g/dL Red Cell Distribution Width 17.6 H 10.0-14.5 % Platelet Count 624 H 130-400 10^3/uL Mean Platelet Volume 9.0 9.0-12.2 fL Immature Granulocyte % (Auto) 1 % Neutrophils (%) (Auto) 74 42-75 % Lymphocytes (%) (Auto) 15 12-44 % Monocytes (%) (Auto) 7 0-12 % Eosinophils (%) (Auto) 2 0-10 % Basophils (%) (Auto) 1 0-10 % Neutrophils # (Auto) 11.1 H 1.8-7.8 10^3/uL Lymphocytes # (Auto) 2.3 1.0-4.0 10^3/uL Monocytes # (Auto) 1.1 H 0.0-1.0 10^3/uL Eosinophils # (Auto) 0.3 0.0-0.3 10^3/uL Basophils # (Auto) 0.1 0.0-0.1 10^3/uL Immature Granulocyte # (Auto) 0.2 H 0.0-0.1 10^3/uL Neutrophils % (Manual) 77 % Lymphocytes % (Manual) 15 % Monocytes % (Manual) 5 % Eosinophils % (Manual) 3 % Basophils % (Manual) 0 % Toxic Granulation 1+ Poikilocytosis MODERATE Rouleau SLIGHT Sodium Level 127 L 135-145 MMOL/L Potassium Level 3.7 3.6-5.0 MMOL/L Chloride Level 94 L 98-107 MMOL/L Carbon Dioxide Level 20 L 21-32 MMOL/L Anion Gap 13 5-14 MMOL/L Blood Urea Nitrogen 17 7-18 MG/DL Creatinine 1.13 0.60-1.30 MG/DL Estimat Glomerular Filtration Rate 47 BUN/Creatinine Ratio 15 Glucose Level 129 H 70-105 MG/DL Calcium Level 9.1 8.5-10.1 MG/DL Corrected Calcium 9.1 8.5-10.1 MG/DL Total Bilirubin 0.6 0.1-1.0 MG/DL Aspartate Amino Transf (AST/SGOT) 15 5-34 U/L Alanine Aminotransferase (ALT/SGPT) 8 0-55 U/L Alkaline Phosphatase 63 40-136 U/L Troponin I < 0.028 <0.028 NG/ML C-Reactive Protein High Sensitivity 2.35 H 0.00-0.50 MG/DL Total Protein 6.8 6.4-8.2 GM/DL Albumin 4.0 3.2-4.5 GM/DL My Orders Orders - BARBRA TORRES MD Cbc With Automated Diff (04/30/20 09:13) Comprehensive Metabolic Panel (04/30/20 09:13) Hs C Reactive Protein (04/30/20 09:13) Troponin I (04/30/20 09:13) Oxycodone/Apap 5/325mg Tablet (Percocet (04/30/20 09:15) Alprazolam Tablet (Xanax Tablet) (04/30/20 09:15) Ekg Tracing (04/30/20 09:13) Manual Differential (04/30/20 09:20) Fentanyl Injection (Sublimaze Injection (04/30/20 10:32) Pantoprazole Injection (Protonix Injecti (04/30/20 10:45) Famotidine Injection (Pepcid Injection) (04/30/20 10:45) Ua Culture If Indicated (04/30/20 10:40) Red Cells Leukocytes Reduced (04/30/20 10:55) Type And Screen (04/30/20 10:55) Medications Given in ED Current Medications Medications Dose Ordered Sig/Lee Route Start Time Stop Time Status Last Admin Dose Admin Famotidine 20 mg ONCE ONCE IVP 04/30/20 10:45 04/30/20 10:46 DC 04/30/20 10:44 20 MG Oxycodone/ Acetaminophen 1 tab ONCE ONCE PO 04/30/20 09:15 04/30/20 09:16 DC 04/30/20 09:26 1 TAB Pantoprazole 40 mg ONCE ONCE IV 04/30/20 10:45 04/30/20 10:46 DC 04/30/20 10:43 40 MG Vital Signs/I&O 04/30/20 09:03 Temp 36.3 Pulse 86 Resp 18 B/P (MAP) 198/81 (120) Pulse Ox 96 Blood Pressure Mean: 120 Progress Progress Note : Progress Note Seen and evaluated. IV and labs ordered due to patient's significant medical history. We will check EKG. Percocet 5/325 1 tab p.o. now as well as Xanax 0.5 mg p.o. Monitor patient. 1110: We have repeated fentanyl 50 mcg IV. I have added Pepcid 20 mg IV as well as Protonix 40 mg IV due to concerns related to hemoglobin of 6.7. Type and cross for 1 unit to give. I did discuss the case with Dr. Ortiz and he accepts patient for admission, observation status. He requests surgical consult which was done. Case was discussed with Dr. SCHWARTZ who will see the patient as well. Admit, observation status. Patient agrees with plan. Initial ECG Impression Date: Apr 30, 2020 Initial ECG Impression Time: 09:40 Initial ECG Rate: 72 Initial ECG Comparisson: Unchanged Comment Ventricular paced complexes with underlying A. fib. Left axis deviation. No evidence of ST elevation NC. Interpreted by me. Departure Communication (Admissions) Time/Spoke to Admitting Phy: 10:54 Time/Spoke to Consulting Phy: 10:58 Impression Primary Impression: Chronic thoracic back pain Qualified Codes: M54.6 - Pain in thoracic spine; G89.29 - Other chronic pain Additional Impression: Acute anemia Disposition: ADMITTED INPATIENT Condition: Stable Admissions Decision to Admit Reason: Admit from ER (General) Decision to Admit/Date: Apr 30, 2020 Time/Decision to Admit Time: 10:54 Departure-Patient Inst. Referrals: BRAD HDEZ MD (PCP/Family) Primary Care Physician BARBRA TORRES MD Apr 30, 2020 09:39
[2020-04-30 09:47] LABS: BASOPHILS # (AUTO) 0.1 10^3/uL (0.0-0.1); BASOPHILS % (AUTO) 1 % (0-10); EOSINOPHILS # (AUTO) 0.3 10^3/uL (0.0-0.3); EOSINOPHILS % (AUTO) 2 % (0-10); HEMATOCRIT 23 % (35-52); LYMPHOCYTES # (AUTO) 2.3 10^3/uL (1.0-4.0); LYMPHOCYTES % (AUTO) 15 % (12-44); MEAN CORPUSCULAR HEMOGLOBIN 20 pg (25-34); MEAN CORPUSCULAR HGB CONC 30 g/dL (32-36); MEAN CORPUSCULAR VOLUME 68 fL (80-99); MONOCYTES # (AUTO) 1.1 10^3/uL (0.0-1.0); MONOCYTES % (AUTO) 7 % (0-12); NEUTROPHILS # (AUTO) 11.1 10^3/uL (1.8-7.8); NEUTROPHILS % (AUTO) 74 % (42-75); PLATELET COUNT 624 10^3/uL (130-400); WHITE BLOOD COUNT 14.9 10^3/uL (4.3-11.0)
[2020-04-30 09:49] LABS: HEMOGLOBIN 6.7 g/dL (11.5-16.0)
[2020-04-30 09:57] LABS: CHLORIDE 94 MMOL/L (98-107); POTASSIUM 3.7 MMOL/L (3.6-5.0); SODIUM 127 MMOL/L (135-145)
[2020-04-30 09:59] LABS: CALCIUM 9.1 MG/DL (8.5-10.1)
[2020-04-30 10:00] LABS: GLUCOSE 129 MG/DL (70-105); TOTAL PROTEIN 6.8 GM/DL (6.4-8.2)
[2020-04-30 10:01] LABS: CARBON DIOXIDE 20 MMOL/L (21-32)
[2020-04-30 10:02] LABS: BILIRUBIN,TOTAL 0.6 MG/DL (0.1-1.0)
[2020-04-30 10:03] LABS: ALKALINE PHOSPHATASE 63 U/L (40-136); CREATININE SERUM 1.13 MG/DL (0.60-1.30); GFR ESTIMATED 47
[2020-04-30 10:04] LABS: BUN/CREATININE RATIO 15
[2020-04-30 10:06] LABS: ALANINE AMINOTRANSFERASE 8 U/L (0-55)
[2020-04-30 10:19] LABS: BASOPHILS % (MANUAL) 0 %; EOSINOPHILS % (MANUAL) 3 %; LYMPHOCYTES % (MANUAL) 15 %; MONOCYTES % (MANUAL) 5 %; NEUTROPHILS % (MANUAL) 77 %
[2020-04-30 10:24] LABS: POIKILOCYTOSIS MODERATE
[2020-04-30 10:31] LABS: TOXIC GRANULATION/VACUOLAZATIO 1+
[2020-04-30 10:32] LABS: ROULEAUX SLIGHT
[2020-04-30] MEDS ORDERED: fentaNYL INJECTION 100 MCG/2 ML AMP IVP STA (10:32)
[2020-04-30] MEDS ORDERED: PANTOPRAZOLE 40 MG (PROTONIX) VIAL IV ONE (10:45)
[2020-04-30] MEDS ORDERED: FAMOTIDINE 20MG/2ML IV (PEPCID) IVP ONE (10:45)
[2020-04-30 10:48] LABS: BILIRUBIN,URINE NEGATIVE (NEGATIVE); CLARITY,URINE CLEAR; COLOR,URINE YELLOW; GLUCOSE, URINE (UA) NEGATIVE (NEGATIVE); KETONES,URINE NEGATIVE (NEGATIVE); LEUKOCYTE ESTERASE ,URINE NEGATIVE (NEGATIVE); NITRITE,URINE NEGATIVE (NEGATIVE); PH,URINE 6.5 (5-9); PROTEIN,URINE NEGATIVE (NEGATIVE)
[2020-04-30 11:17] LABS: RBC,URINE 0-2 /HPF
[2020-04-30 11:18] LABS: BACTERIA,URINE NEGATIVE /HPF; WBC,URINE 0-2 /HPF
--- NOTE | 2020-04-30 12:20 | NUR ---
AILEEN DUMONT admitted to room 414-1, with an admitting diagnosis of ANEMIA, on 04/30/20 from ED via , accompanied by STAFF. AILEEN DUMONT introduced to surroundings, call light, bed controls, phone, TV, temperature control, lights, meal times, smoking policy, visitor policy, side rail policy, bathrooms and showers. Patient Rights given to patient in the handbook. AILEEN DUMONT verbalizes understanding that [facility] is not responsible for the loss or damage to any personal effects or valuables that are kept in the patients posession during their hospitalization. The following Patient Care Plans were discussed with the PT: Discharge Planning, PAIN, ANEMIA. AILEEN DUMONT verbalizes understanding of Interdisciplinary Patient Education. Patient and/or family were informed about the Rapid Response Team and its purpose.
[2020-04-30] MEDS ORDERED: CATHETER FLUSH 10 ML SYR IV PRN (13:00)
[2020-04-30] MEDS ORDERED: NS IV 500 ML 500 ML IV SCH (13:00)
[2020-04-30] MEDS ORDERED: ONDANSETRON 4 MG/2 ML (SDV) Z0FRAN IV PRN (13:00)
--- NOTE | 2020-04-30 13:30 | NUR ---
FENTANYL IV FOR BACKPAIN.
[2020-04-30] MEDS: fentaNYL INJECTION 100 MCG/2 ML AMP IV PRN ×2 (13:35→20:53)
[2020-04-30] MEDS: LACTATED RINGERS 1,000 ML IV SCH ×2 (13:38→16:39)
--- NOTE | 2020-04-30 20:47 | CONSULTATION REPORT ---
DATE OF SERVICE: ATTENDING PRIMARY CARE PHYSICIAN: Dr. Romeo Kent. HISTORY OF PRESENT ILLNESS: The patient is a 80-year-old female who presented to the Emergency Department with upper back pain. She has had issues with this for some time and has a known history of a thoracic compression fracture, which occasionally inflames and causes pain. She also does take nonsteroidal anti-inflammatories with two Tylenol every morning. She states that she presented with weakness as well as worsening back pain. Upon further evaluation, she was found to be anemic with a hemoglobin of 6.7. She does report that she has had some issues with gastroesophageal reflux disease in the past and is currently on omeprazole 20 mg daily. She also reports that her last colonoscopy was sometime ago. She does not report any hematemesis, no coffee ground emesis and does not know of any red blood per rectum nor any dark tarry stools. She does have a number of other medical problems. PAST MEDICAL HISTORY: Asthma, COPD, history of pulmonary embolism, congestive heart failure, hypercholesterolemia, hypertension, dementia, history of endometriosis, history of peptic ulcer disease, irritable bowel syndrome, degenerative joint disease, hearing loss, anxiety. PAST SURGICAL HISTORY: Appendectomy, bilateral eye surgery, cholecystectomy, hysterectomy, total joint replacement, pacemaker implantation. ALLERGIES: PENICILLIN, KETOROLAC, MORPHINE, TETRACYCLINE, PAROXETINE. MEDICATIONS: Acetaminophen 1000 mg q.8 hours, benzonatate 100 mg t.i.d. p.r.n., carvedilol 3.125 mg b.i.d., iron 325 mg daily, fexofenadine daily, fluticasone spray daily, folic acid 1 mg daily, furosemide 40 mg daily, lisinopril 20 mg daily, loperamide 2 mg q.8 hours p.r.n., lorazepam 0.5 mg b.i.d., montelukast 10 mg daily, omeprazole 20 mg daily, oxybutynin 10 mg daily, pravastatin 40 mg daily, quetiapine fumarate 100 mg daily, rivaroxaban 20 mg daily, rivastigmine 1.5 mg b.i.d., senna daily, tramadol p.r.n. SOCIAL HISTORY: Negative smoke. Does drink wine occasionally. FAMILY HISTORY: Noncontributory. VITAL SIGNS: Temperature 37.0, blood pressure 148/65, pulse 73, respirations 18, pulse ox 97% on room air. REVIEW OF SYSTEMS: A well-nourished female, currently in no acute distress. She is not experiencing any shortness of breath or difficulty breathing. No chest pain, palpitations, diaphoresis. No nausea, vomiting. No hematemesis, no coffee ground emesis. Intermittent episodes of diarrhea. No red blood per rectum, no dark tarry stools. No fever, chills, no recent inadvertent weight loss. All other review of systems negative. PHYSICAL EXAMINATION: CHEST: Distant breath sounds and scattered wheezes bilaterally. HEART: Regular, no murmurs. EXTREMITIES: +1/3 bilateral lower extremity edema, negative Homans sign. HEENT: No scleral icterus. NECK: No cervical lymphadenopathy. ABDOMEN: Soft, nondistended. There is mild discomfort in the epigastric region on deep palpation. No peritoneal signs. No hernias. SKIN: Warm, dry. LABORATORY DATA: WBC 14.9, hemoglobin of 7.0 after 1 unit PRBC, hematocrit 23, platelets 624, BUN 17, creatinine 1.13. ASSESSMENT AND PLAN: A 80-year-old female with anemia, most likely an upper gastrointestinal source with a history of peptic ulcer disease and gastroesophageal reflux disease and being on anticoagulation; however, she cannot remember when her last colonoscopy was. We will see if she is willing to proceed with a colonic preparation and then proceed with an EGD and colonoscopy on this admission. If not, we will then just proceed with an EGD. For now, we will continue with medical management with serial hemoglobin and hematocrit checks as well as Protonix IV. Job ID: [id number] DocumentID: [id number] Dictated Date: 04/30/2020 20:28:59 Slip Operator Date: 04/30/2020 20:46:46 Dictated By: SMITH SCHWARTZ MD [facility]
[2020-04-30] MEDS: PANTOPRAZOLE 40 MG (PROTONIX) VIAL IV SCH (20:53)
[2020-04-30 21:43] LABS: HEMOGLOBIN 7.1 g/dL (11.5-16.0)
--- NOTE | 2020-04-30 21:45 | NUR ---
Notified Dr. Wright that pt is all over the place and getting anxious. Received orders for Ativan 0.5mg q8h PRN. Pt was asleep and calmed down when RN was about to give the medication.
[2020-05-01] VITALS (7 sets, daily range): BP systolic 114–198; BP diastolic 59–80
[2020-05-01 04:05] LABS: BASOPHILS # (AUTO) 0.1 10^3/uL (0.0-0.1); BASOPHILS % (AUTO) 1 % (0-10); EOSINOPHILS # (AUTO) 0.5 10^3/uL (0.0-0.3); EOSINOPHILS % (AUTO) 4 % (0-10); HEMATOCRIT 24 % (35-52); LYMPHOCYTES # (AUTO) 2.1 10^3/uL (1.0-4.0); LYMPHOCYTES % (AUTO) 20 % (12-44); MEAN CORPUSCULAR HEMOGLOBIN 21 pg (25-34); MEAN CORPUSCULAR HGB CONC 29 g/dL (32-36); MEAN CORPUSCULAR VOLUME 74 fL (80-99); MEAN PLATELET VOLUME 8.6 fL (9.0-12.2); MONOCYTES % (AUTO) 10 % (0-12); NEUTROPHILS # (AUTO) 6.6 10^3/uL (1.8-7.8); NEUTROPHILS % (AUTO) 64 % (42-75); PLATELET COUNT 475 10^3/uL (130-400); WHITE BLOOD COUNT 10.3 10^3/uL (4.3-11.0)
[2020-05-01 04:16] LABS: ALBUMIN 3.3 GM/DL (3.2-4.5); CHLORIDE 100 MMOL/L (98-107); POTASSIUM 3.8 MMOL/L (3.6-5.0); SODIUM 129 MMOL/L (135-145)
[2020-05-01 04:17] LABS: CALCIUM 8.4 MG/DL (8.5-10.1)
[2020-05-01 04:18] LABS: GLUCOSE 98 MG/DL (70-105); TOTAL PROTEIN 5.7 GM/DL (6.4-8.2)
[2020-05-01 04:19] LABS: CARBON DIOXIDE 19 MMOL/L (21-32)
[2020-05-01 04:20] LABS: BILIRUBIN,TOTAL 0.7 MG/DL (0.1-1.0)
[2020-05-01 04:22] LABS: ALKALINE PHOSPHATASE 52 U/L (40-136); CREATININE SERUM 0.89 MG/DL (0.60-1.30); GFR ESTIMATED > 60
[2020-05-01 04:23] LABS: BUN/CREATININE RATIO 12
[2020-05-01 04:25] LABS: ALANINE AMINOTRANSFERASE 7 U/L (0-55)
[2020-05-01] MEDS: PANTOPRAZOLE 40 MG (PROTONIX) VIAL IV SCH ×2 (08:20→21:54)
[2020-05-01] MEDS: fentaNYL INJECTION 100 MCG/2 ML AMP IV PRN ×2 (08:20→22:06)
[2020-05-01 09:42] LABS: HEMOGLOBIN 7.5 g/dL (11.5-16.0)
--- NOTE | 2020-05-01 11:00 | NUR ---
patient crying hysterically in room at this time and very restless rolling around in her bed shaking. stating " I know I cry a lot" "I know I'm emotional" I need a back rub" "I need special lotion for my skin" "I need to walk around" . told patient to have daughter bring "special lotion" from home at this time and told patient until she is less hysterical she can not walk the halls as this would be a disturbance to other patients. unable to calm patient down verbally at this time PO anxiety med given. will reassess
[2020-05-01] MEDS: LORazepam 0.5 MG (ATIVAN) TABLET PO PRN (11:09)
--- NOTE | 2020-05-01 13:06 | Conscious Sedation/ASA ---
Conscious Sedation Pre-Proced Time 13:00 ASA Score 3 For ASA 3 and 4: Consider anesthesia and medical clearance. Also, for patients with a history of failed moderate sedation consider anesthesia. Airway Lungs Heart ASA score ASA 1: a normal healthy patient ASA 2: a patient with a mild systemic disease (mid diabetes, controlled hypertension, obesity ASA 3: a patient with a severe systemic disease that limits activity (angina, COPD, prior Myocardial infarction) ASA 4: a patient with an incapacitating disease that is a constant threat to life (CHF, renal failure) ASA 5: a moribund patient not expected to survive 24 hrs. (ruptured aneurysm) ASA 6: a declared brain- patient whose organs are being harvested. For emergent operations, add the letter E after the classification Mallampati Classification Grade 2 Sedation Plan Analgesia, Amnesia, Plan communicated to team members, Discussed options with patient/fam, Discussed risks with patient/fam The patient is an appropriate candidate to undergo the planned procedure, sedation, and anesthesia. The patient immediately re-assessed prior to indication. SMITH SCHWARTZ MD May 01, 2020 13:06
--- NOTE | 2020-05-01 13:07 | Progress Note-Pre Operative ---
Pre-Operative Progress Note H&P Reviewed The H&P was reviewed, patient examined and no changes noted. Date Seen by Provider: May 01, 2020 Time Seen by Provider: 13:00 Date H&P Reviewed: May 01, 2020 Time H&P Reviewed: 13:00 Pre-Operative Diagnosis: epigastric pain with anemia SMITH SCHWARTZ MD May 01, 2020 13:07
[2020-05-01] MEDS ORDERED: CARV3.122 PO (13:36)
[2020-05-01] MEDS ORDERED: PRAV20TA3 PO (13:36)
[2020-05-01] MEDS ORDERED: APIX5TAB PO (13:36)
[2020-05-01] MEDS ORDERED: LORA-404 PO (13:36)
[2020-05-01] MEDS ORDERED: UBID1CAP3 PO (13:36)
[2020-05-01] MEDS ORDERED: QUET100T33 PO ×2 (13:36)
[2020-05-01] MEDS ORDERED: FURO20TA4 PO (13:36)
[2020-05-01] MEDS ORDERED: FLUT1BLS IN (13:36)
[2020-05-01] MEDS ORDERED: GUAI400T86 PO (13:36)
[2020-05-01] MEDS ORDERED: TRAM50TA3 PO (13:36)
--- NOTE | 2020-05-01 13:37 | NUR ---
SPOKE WITH THE PT-SHE WAS NOT ABLE TO GIVE ME INFORMATION REGARDING HER MEDICATIONS AND REQUESTED THAT I CALL RITIKA (DAUGHTER). I SPOKE WITH RITIKA AND WENT THRU THE EXT MED HISTORY TO COMPLETE THE MED REC RITIKA WAS ABLE TO NAME ALL THE PTS MEDS WELL WHEN/HOW SHE TAKES EACH- SHE ALSO LET ME KNOW SHE TAKES CARE OF THE PTS MEDICATIONS. THERE ARE NO DISCREPANCIES BETWEEN HOW THE PT IS TAKING HER MEDICATIONS AND DIRECTIONS (#FILLS/DS) ON THE EXT MED HISTORY OTC MEDS: FLONASE MUCUS RELIEF 400MG BID CALCIUM W/ VIT D3 TYLENOL UBIQUINOL OMEPRAZOLE RITIKA ALSO WANTED ME TO KNOW THAT IN THE PAST AILEEN HAS TAKEN IRON TABS BUT WAS TOLD BY A DR IN [facility] THAT SHE COULD STOP TAKING DUE TO HER LABS BEING OK.
--- NOTE | 2020-05-01 13:50 | NUR ---
"RD ASSESSMENT PMHx: COPD; PE; CHF; HTN; PUD; GERD; hypercholesterolemia; dementia; irritable bowel; PT INTERACTION: Pt was awake and pleasant during nutrition assessment. Note pt has dementia, per chart review. Pt states current appetite is good. Note avg PO intake 50% x3meal, per chart review. Pt states following a regular diet at home, and has no issues with chewing/swallowing food. Pt states no recent issues with nausea, vomiting, constipation, or diarrhea, and is unsure of her last BM. Note no BM has been recorded and pt not currently on bowel regimen per chart review. Pt states some recent wt loss, but is unsure of amount/timeframe. Note recent 7# wt loss x3mon, per chart review. ABNORMAL NUTRITION-RELATED LAB VALUES LOW: Na 129; Ca 8.4; Pro 5.7; HIGH: Est. kcal needs: 7925-5392 kcal | 15-18 kcal/kg Est. Pro needs: 71-89 g Pro | 0.8-1.0 g Pro/kg PES STATEMENT: Inadequate oral intake (NI-2.1) related to loss of appetite as evidenced by pt interview, and avg PO intake 50% x3meal. INTERVENTION: Continue with current diet order of Clear Liquid diet. Would recommend diet advancement when medically able and as tolerated. Switch current supplementation order from Ensure Enlive (vary) with meals TID to Ensure Clear with meals TID to match diet restrictions. Clear provides 250 kcal and 8 g Pro per serving. Encouraged pt to eat when able. Will continue to follow and reassess as pt needs, intake, and status change. Francois Solomon, MS RD LD"
[2020-05-01] MEDS: LACTATED RINGERS 1,000 ML IV SCH (14:04)
[2020-05-01] MEDS: ACETAMINOPHEN 500 MG TAB (TYLENOL) PO PRN ×2 (14:12→21:54)
[2020-05-01] MEDS ORDERED: NS IV 500 ML 500 ML IV SCH (14:47)
[2020-05-01] MEDS ORDERED: HYDROCORTISONE 100 MG/2 ML (Solu-CORTEF) VIAL IV PRN (15:00)
[2020-05-01] MEDS ORDERED: RT-ALBUTEROL SULF 2.5 MG/3 ML PRE-MIX VIAL IH PRN (15:00)
[2020-05-01] MEDS ORDERED: EPINEPHrine INJECTION 1 MG/ML AMP IM PRN (15:00)
[2020-05-01] MEDS ORDERED: diphenhydrAMINE 50 MG/ML INJ (BENADRYL) IV PRN (15:00)
[2020-05-01] MEDS ORDERED: IRON DEXTRAN INJECTION 25 MG in NS (IVPB) 5.75 ML IV NR (15:00)
[2020-05-01] MEDS ORDERED: IRON DEXTRAN INJECTION 1,000 MG in NS (IVPB) 250 ML IV ONE (15:15)
[2020-05-01 15:35] LABS: HEMOGLOBIN 7.5 G/DL (11.5-16.0)
--- NOTE | 2020-05-01 20:11 | History & Physical-Hospitalist ---
History of Present Illness HPI/Chief Complaint Vane Correia is a 80 year old female with PMH HTN, HLD, COPD, AFib, chronic back pain, who presented with back pain. She is a poor historian. Upon my examination, she is unable to tell me why she came to the hospital. On arrival in the ER, she was found to have a new anemia. She denies any known blood loss. She has not seen blood in her stools. She denies abdominal pain. She denies nausea and vomiting. She denies fevers and chills. She denies dyspnea and cough. Source: patient Exam Limitations: no limitations Date Seen 05/01/20 Time Seen by a Provider: 17:00 Attending Physician Loni Noguera MD PCP Romeo Kent MD Referring Physician Date of Admission May 01, 2020 at 14:14 Home Medications & Allergies Home Medications Reviewed patient Home Medication Reconciliation performed by pharmacy medication reconciliations broadcast technician and/or nursing. Patients Allergies have been reviewed. Allergies Allergies Coded Allergies Penicillins (Verified Allergy, Mild, 07/17/19) ketorolac (Verified Allergy, Mild, 07/17/19) morphine (Verified Allergy, Mild, 07/17/19) tetracycline (Verified Allergy, Mild, 07/17/19) paroxetine (Unverified Allergy, Unknown, 07/17/19) Past Yhvfasi-Tyurya-Pbwyhj Hx Past Med/Social Hx: Reviewed Nursing Past Med/Soc Hx Patient Social History Alcohol Use: Denies Use Alcohol Beverage of Choice: Wine Recreational Drug Use: No Smoking Status: Never a Smoker 2nd Hand Smoke Exposure: No Physical Abuse Screen: No Sexual Abuse: No Recent Foreign Travel: No Contact w/other who traveled: No Recent Hopitalizations: No Recent Infectious Disease Expo: No Immunizations Up To Date Tetanus Booster (TDap): Unknown Pediatric: Yes Date of Pneumonia Vaccine: Feb 10, 2015 Date of Influenza Vaccine: Mar 27, 2020 Seasonal Allergies Seasonal Allergies: No Past Medical History Surgeries: Abdominal, Appendectomy, Eye Surgery, Gallbladder, 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, Joint Replacement, Orthopedic, Pacemaker Currently Using CPAP: No Currently Using BIPAP: No Cardiac: High Cholesterol, Hypertension Neurological: Dementia 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: No Sexually Transmitted Disease: No HIV/AIDS: No Female 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 Disorders: Denies, Endometriosis 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, Menopausal Gastrointestinal: Gastrointestinal Bleed, Chronic Diarrhea, Polyps, Ulcer, Irritable Bowel Musculoskeletal: Degenerate Disk Disease, Arthritis, Chronic Back Pain, Fractures HEENT: Cataract Loss of Vision: Denies Hearing Impairment: Hard of Hearing Psychosocial: Anxiety History of Blood Disorders: Yes (BILATERAL P.E.'S 04/2018) Adverse Reaction to Blood Dominguez: No Family History Reviewed Nursing Family Hx Blood clots (sister had a blood clot in the brain which caused her  in 2010) Review of Systems Constitutional: no symptoms reported EENTM: no symptoms reported Respiratory: no symptoms reported Cardiovascular: no symptoms reported Gastrointestinal: no symptoms reported Genitourinary: no symptoms reported Musculoskeletal: back pain Skin: no symptoms reported Psychiatric/Neurological: No Symptoms Reported Physical Exam Physical Exam Vital Signs Vital Signs - First Documented 04/30/20 04/30/20 09:03 12:20 Temp 36.3 Pulse 86 Resp 18 B/P (MAP) 198/81 (120) Pulse Ox 96 O2 Delivery Room Air Capillary Refill : Less Than 3 SecondsLess Than 3 Seconds Height, Weight, BMI Height: 5'3.00" Weight: 150lbs. 0.0oz. [id number]; 33.36 BMI Method:Stated General Appearance: No Apparent Distress, Obese HEENT: PERRL/EOMI, Pharynx Normal Neck: Normal Inspection, Supple Respiratory: Lungs Clear, Normal Breath Sounds, No Respiratory Distress Cardiovascular: Regular Rate, Rhythm, No Edema, No Murmur Gastrointestinal: Normal Bowel Sounds, Non Tender, Soft Extremity: Normal Inspection, Non Tender, No Pedal Edema Neurologic/Psychiatric: Alert, No Motor/Sensory Deficits, Normal Mood/Affect Skin: Normal Color, Warm/Dry Results Results/Procedures Labs Laboratory Tests 04/30/20 09:20 04/30/20 15:40 04/30/20 21:28 05/01/20 03:56 05/01/20 09:20 05/01/20 15:26 Patient resulted labs reviewed. Imaging: Reviewed Imaging Report Assessment/Plan Admission Diagnosis Acute blood loss anemia Admission Status: Inpatient Order (span 2 midnights) Reason for Inpatient Admission: GI bleed requiring surgical intervention Assessment and Plan Acute blood loss anemia Iron deficiency anemia Hgb 6.5 on arrival s/p 1 unit PRBC Iron studies consistent with iron deficiency Iron infusion General surgery consulted, appreciate assistance Planning for EGD tomorrow Transfuse to keep Hgb >7 IV PPI BID AFib Hold Eliquis HTN HLD COPD Anxiety Continue home meds Obesity Clinically significant, no acute management needs DVT Prophylaxis: held due to GI bleed Diagnosis/Problems Diagnosis/Problems (1) Acute blood loss anemia Status: Acute (2) Upper GI bleed Status: Acute (3) Iron deficiency anemia Status: Acute Qualifiers: Iron deficiency anemia type: chronic blood loss Qualified Codes: D50.0 - Iron deficiency anemia secondary to blood loss (chronic) (4) HTN (hypertension) Status: Chronic Qualifiers: Hypertension type: essential hypertension Qualified Codes: I10 - Essential (primary) hypertension (5) HLD (hyperlipidemia) (6) Afib Status: Chronic Qualifiers: Atrial fibrillation type: paroxysmal Qualified Codes: I48.0 - Paroxysmal atrial fibrillation (7) Obesity Status: Chronic Qualifiers: Obesity type: due to excess calories Serious obesity comorbidity presence: with serious comorbidity Body mass index: BMI 33.0-33.9 (8) COPD (chronic obstructive pulmonary disease) Status: Chronic (9) Anxiety Status: Chronic Clinical Quality Measures DVT/VTE Risk/Contraindication: Risk Factor Score Per Nursin RFS Level Per Nursing on Admit: 4+=Very High LONI NOGUERA MD May 01, 2020 20:11
[2020-05-01] MEDS: RIVASTIGMINE 1.5 MG (EXELON) CAP PO SCH (21:53)
[2020-05-01] MEDS: QUEtiapine 100 MG (SEROquel) TAB IMMEDIATE RELEASE PO SCH (21:53)
[2020-05-01] MEDS: LORazepam 0.5 MG (ATIVAN) TABLET PO SCH (21:53)
[2020-05-01] MEDS: CARVEDILOL 3.125 MG (COREG) TABLET PO SCH (21:53)
[2020-05-01] MEDS: lisINopril 20 MG (PRINIVIL) TABLET PO SCH (21:54)
[2020-05-01] MEDS: FLUTICASONE NASAL SPRAY (FLONASE) 16 GM BTL NS SCH (21:54)
[2020-05-02] VITALS (18 sets, daily range): BP systolic 108–190; BP diastolic 52–84
[2020-05-02] MEDS: fentaNYL INJECTION 100 MCG/2 ML AMP IV PRN ×2 (03:50→18:55)
[2020-05-02 05:39] LABS: MEAN PLATELET VOLUME 8.7 fL (9.0-12.2); WHITE BLOOD COUNT 10.1 10^3/uL (4.3-11.0)
[2020-05-02 05:40] LABS: HEMOGLOBIN 6.9 g/dL (11.5-16.0)
[2020-05-02 05:51] LABS: CHLORIDE 101 MMOL/L (98-107); POTASSIUM 3.7 MMOL/L (3.6-5.0); SODIUM 132 MMOL/L (135-145)
[2020-05-02 05:52] LABS: CALCIUM 8.8 MG/DL (8.5-10.1)
[2020-05-02 05:53] LABS: GLUCOSE 98 MG/DL (70-105)
[2020-05-02 05:54] LABS: CARBON DIOXIDE 21 MMOL/L (21-32)
[2020-05-02] MEDS: POTASSIUM CL 10MEQ/50ML IVPB 50 ML IV SCH (05:56)
[2020-05-02 05:57] LABS: BUN/CREATININE RATIO 8; CREATININE SERUM 0.89 MG/DL (0.60-1.30); GFR ESTIMATED > 60
[2020-05-02] MEDS: KCL 20 MEQ TAB (K-DUR) PO SCH (05:57)
[2020-05-02 05:59] LABS: MAGNESIUM 1.9 MG/DL (1.6-2.4)
[2020-05-02] MEDS: MAGNESIUM 1 GM/100 ML IVPB 100 ML IV SCH (06:00)
[2020-05-02] MEDS ORDERED: NS IV 500 ML 500 ML IV SCH (07:45)
[2020-05-02] MEDS: FLUTICASONE NASAL SPRAY (FLONASE) 16 GM BTL NS SCH ×2 (08:16→22:00)
[2020-05-02] MEDS: RIVASTIGMINE 1.5 MG (EXELON) CAP PO SCH ×2 (08:16→22:00)
[2020-05-02] MEDS: LORazepam 0.5 MG (ATIVAN) TABLET PO SCH ×2 (08:16→22:00)
[2020-05-02] MEDS: OXYBUTYNIN (DITROPAN) 5 MG TAB PO SCH ×2 (08:16→22:00)
[2020-05-02] MEDS: lisINopril 20 MG (PRINIVIL) TABLET PO SCH ×2 (08:16→22:00)
[2020-05-02] MEDS: QUEtiapine 100 MG (SEROquel) TAB IMMEDIATE RELEASE PO SCH ×2 (08:16→21:59)
[2020-05-02] MEDS: PANTOPRAZOLE 40 MG (PROTONIX) VIAL IV SCH ×2 (08:16→22:00)
[2020-05-02] MEDS: CARVEDILOL 3.125 MG (COREG) TABLET PO SCH ×2 (08:17→22:00)
[2020-05-02] MEDS: ACETAMINOPHEN 500 MG TAB (TYLENOL) PO PRN ×2 (08:17→18:53)
[2020-05-02] MEDS: MONTELUKAST 10 MG (SINGULAIR) TAB PO SCH (08:17)
[2020-05-02] MEDS: ADVAIR HFA 115/21 MCG INHALER 8 GM IH SCH (08:50)
[2020-05-02] MEDS: LORazepam 0.5 MG (ATIVAN) TABLET PO PRN (09:21)
[2020-05-02] MEDS ORDERED: LIDOCAINE 4% (SALONPAS) PATCH ONE (09:24)
[2020-05-02] MEDS: LIDOCAINE 4% (SALONPAS) PATCH TOP SCH (09:30)
[2020-05-02] MEDS ORDERED: NS IV 500 ML 500 ML ONE (12:53)
[2020-05-02] MEDS ORDERED: fentaNYL INJECTION 100 MCG/2 ML AMP IVP ONE (13:00)
[2020-05-02] MEDS ORDERED: LIDOCAINE JELLY 2% 6 ML SYRINGE MM PRN (13:00)
[2020-05-02] MEDS ORDERED: MIDAZOLAM 5 MG/5 ML (VERSED) VIAL IV ONE (13:00)
[2020-05-02] MEDS ORDERED: NS IV 500 ML 500 ML IV ONE (13:00)
[2020-05-02] MEDS ORDERED: HURRICAINE EXT TUBE (BENZOCAINE) XX PRN (13:00)
--- NOTE | 2020-05-02 13:29 | Progress Note - Hospitalist ---
Subjective HPI/CC On Admission Date Seen by Provider: May 02, 2020 Time Seen by Provider: 09:05 Vane Correia is a 80 year old female with PMH HTN, HLD, COPD, AFib, chronic back pain, who presented with back pain. She is a poor historian. Upon my examination, she is unable to tell me why she came to the hospital. On arrival in the ER, she was found to have a new anemia. She denies any known blood loss. She has not seen blood in her stools. She denies abdominal pain. She denies nausea and vomiting. She denies fevers and chills. She denies dyspnea and cough. Subjective/Events-last exam She is having back pain. She says she is not having bowel movements. She has not noticed any blood loss. Objective Exam Vital Signs Vital Signs Date Time Temp Pulse Resp B/P (MAP) Pulse Ox O2 Delivery O2 Flow Rate FiO2 05/02/20 11:46 37.2 72 18 95 Room Air 05/02/20 11:10 124/57 (79) Capillary Refill : Less Than 3 SecondsLess Than 3 Seconds General Appearance: Anxious, Moderate Distress (writhing in pain), Obese Respiratory: Lungs Clear, Normal Breath Sounds, No Respiratory Distress Cardiovascular: Regular Rate, Rhythm, No Edema, No Murmur Gastrointestinal: Normal Bowel Sounds, Non Tender, Soft Extremity: Normal Inspection, Non Tender, No Pedal Edema Neurologic/Psychiatric: Alert Skin: Normal Color, Warm/Dry Results/Procedures Lab Laboratory Tests 05/01/20 15:26 05/02/20 05:14 Patient resulted labs reviewed. Imaging: Reviewed Imaging Report Assessment/Plan Assessment and Plan Assess & Plan/Chief Complaint Acute blood loss anemia Iron deficiency anemia Hgb 6.9 this morning Transfuse 1 unit PRBC today Iron studies consistent with iron deficiency s/p Infed General surgery consulted, appreciate assistance Planning for EGD today Transfuse to keep Hgb >7 IV PPI BID AFib Hold Eliquis Compression fractures Pain regimen ordered HTN HLD COPD Anxiety Continue home meds Obesity Clinically significant, no acute management needs DVT Prophylaxis: held due to GI bleed Diagnosis/Problems Diagnosis/Problems (1) Acute blood loss anemia Status: Acute (2) Upper GI bleed Status: Acute (3) Iron deficiency anemia Status: Acute Qualifiers: Iron deficiency anemia type: chronic blood loss Qualified Codes: D50.0 - Iron deficiency anemia secondary to blood loss (chronic) (4) HTN (hypertension) Status: Chronic Qualifiers: Hypertension type: essential hypertension Qualified Codes: I10 - Essential (primary) hypertension (5) HLD (hyperlipidemia) (6) Afib Status: Chronic Qualifiers: Atrial fibrillation type: paroxysmal Qualified Codes: I48.0 - Paroxysmal atrial fibrillation (7) Obesity Status: Chronic Qualifiers: Obesity type: due to excess calories Serious obesity comorbidity presence: with serious comorbidity Body mass index: BMI 33.0-33.9 (8) COPD (chronic obstructive pulmonary disease) Status: Chronic (9) Anxiety Status: Chronic Clinical Quality Measures DVT/VTE Risk/Contraindication: Risk Factor Score Per Nursin RFS Level Per Nursing on Admit: 4+=Very High LONI NOGUERA MD May 02, 2020 13:29
[2020-05-02] MEDS ORDERED: LIDOCAINE JELLY 2% 6 ML SYRINGE ONE (13:46)
[2020-05-02] MEDS ORDERED: MIDAZOLAM 5 MG/5 ML (VERSED) VIAL ONE ×2 (13:46→13:47)
[2020-05-02] MEDS ORDERED: fentaNYL INJECTION 100 MCG/2 ML AMP ONE (13:46)
[2020-05-02] MEDS ORDERED: HURRICAINE EXT TUBE (BENZOCAINE) ONE (13:47)
[2020-05-02] MEDS: LACTATED RINGERS 1,000 ML IV SCH (18:59)
--- NOTE | 2020-05-02 21:29 | OPERATIVE REPORT ---
DATE OF SERVICE: 05/02/2020 ATTENDING PHYSICIAN: Dr. Ortiz. PREOPERATIVE DIAGNOSIS: Anemia with persistent back pain. POSTOPERATIVE DIAGNOSES: Reflux esophagitis between stage II and III large type 2 hiatal hernia, 5 cm in size. Moderate gastritis. No distal obstructions. PROCEDURE: EGD with biopsy. SURGEON: Smith Schwartz MD ANESTHESIA: Conscious sedation. ESTIMATED BLOOD LOSS: Minimal. FINDINGS: Reflux esophagitis between stage II and III large type 2 hiatal hernia, 5 cm in size. Moderate gastritis. No distal obstructions. DISPOSITION: The patient tolerated the procedure well. INDICATIONS: The patient is a 80-year-old female who presented to the Emergency Department with significant back pain; however, she does have a history of a vertebral compression fractures. She states that this was significantly worse and she was also found to be anemic. DESCRIPTION OF PROCEDURE: The patient was brought to the endoscopy suite, laid in left lateral decubitus position. After adequate IV pain and sedative medications and conscious sedation anesthesia, the mouthpiece was applied. The endoscope was then placed in the mouth, visualizing the pharynx and hypopharyngeal region. Vocal cords, epiglottis and vallecula identified and appeared to be normal. The endoscope was then gently intubated at the esophageal opening and esophagus insufflated. The endoscope was then advanced through the first, second and third portion of esophagus. At the level of the GE junction, a reflux esophagitis between stage II and III identified with a mild distal esophageal stricture; however, not significant. A biopsy was taken of this region with forceps with visualization of good hemostasis. The endoscope was then advanced into the stomach and endoscope retroflexed, visualizing a large type 2 hiatal hernia 5 cm in size. There was also a moderate severity gastritis. No formal ulcerations, polyps, or any bleeding sources identified. A biopsy was taken of the antrum with visualization of good hemostasis. The endoscope was then advanced to the pylorus and the first and second portion of the duodenum, which appeared normal with no distal obstructions. The endoscope was then slowly withdrawn while taking a second look and suctioning of residual air with no additional findings. The patient tolerated the procedure well. We will recommend the necessary lifestyle and diet accommodation for her, which would be small and more frequent meals, avoidance of eating at night as well as head elevation while lying supine. She also needs to avoid caffeinated beverages, spicy, greasy and acidic foods and be on a PPI acid coin purse assembler at all times. Job ID: [id number] DocumentID: [id number] Dictated Date: 05/02/2020 14:27:51 Tank Setter Date: 05/02/2020 21:28:37 Dictated By: SMITH SCHWARTZ MD
[2020-05-02] MEDS: SIMvastatin 20 MG (ZOCOR) TAB PO SCH (22:00)
[2020-05-03 00:34] VITALS: BP 112/50
[2020-05-03 04:00] VITALS: BP 134/67
[2020-05-03 05:33] LABS: HEMOGLOBIN 8.5 g/dL (11.5-16.0); MEAN PLATELET VOLUME 9.1 fL (9.0-12.2)
[2020-05-03 06:15] LABS: POTASSIUM 4.1 MMOL/L (3.6-5.0)
[2020-05-03 06:16] LABS: CALCIUM 8.7 MG/DL (8.5-10.1)
[2020-05-03 06:20] LABS: CREATININE SERUM 1.06 MG/DL (0.60-1.30)
[2020-05-03] MEDS: POTASSIUM CL 10MEQ/50ML IVPB 50 ML IV SCH (06:26)
[2020-05-03] MEDS: MAGNESIUM 1 GM/100 ML IVPB 100 ML IV SCH (06:26)
[2020-05-03] MEDS: KCL 20 MEQ TAB (K-DUR) PO SCH (06:27)
[2020-05-03] MEDS: ADVAIR HFA 115/21 MCG INHALER 8 GM IH SCH (07:37)
[2020-05-03 08:00] VITALS: BP 165/72
[2020-05-03] MEDS: PANTOPRAZOLE 40 MG (PROTONIX) VIAL IV SCH ×2 (08:42→21:00)
[2020-05-03] MEDS: ACETAMINOPHEN 500 MG TAB (TYLENOL) PO PRN ×2 (08:43→16:55)
[2020-05-03] MEDS: RIVASTIGMINE 1.5 MG (EXELON) CAP PO SCH ×2 (08:43→21:01)
[2020-05-03] MEDS: CARVEDILOL 3.125 MG (COREG) TABLET PO SCH ×2 (08:43→21:00)
[2020-05-03] MEDS: OXYBUTYNIN (DITROPAN) 5 MG TAB PO SCH ×2 (08:43→21:00)
[2020-05-03] MEDS: QUEtiapine 100 MG (SEROquel) TAB IMMEDIATE RELEASE PO SCH ×2 (08:43→21:01)
[2020-05-03] MEDS: MONTELUKAST 10 MG (SINGULAIR) TAB PO SCH (08:43)
[2020-05-03] MEDS: lisINopril 20 MG (PRINIVIL) TABLET PO SCH ×2 (08:43→21:00)
[2020-05-03] MEDS: LIDOCAINE 4% (SALONPAS) PATCH TOP SCH (08:44)
[2020-05-03] MEDS: LORazepam 0.5 MG (ATIVAN) TABLET PO SCH ×2 (08:48→21:01)
[2020-05-03] MEDS: FLUTICASONE NASAL SPRAY (FLONASE) 16 GM BTL NS SCH ×2 (08:48→21:01)
[2020-05-03 12:00] VITALS: BP 170/80
--- NOTE | 2020-05-03 12:00 | Progress Note ---
Subjective Date Seen by a Provider: May 03, 2020 Time Seen by a Provider: 11:56 Subjective/Events-last exam Fwup acute blood loss anemia, chronic atrial fibrillation, chronic back pain, dementia with behavior disorder. Lying in bed and complains of hurting--in stomach and in back. Objective Exam Vital Signs Date Time Temp Pulse Resp B/P (MAP) Pulse Ox O2 Delivery O2 Flow Rate FiO2 05/03/20 08:00 36.6 70 24 165/72 (103) 96 Room Air 05/03/20 08:00 96 Room Air 05/03/20 07:37 96 Room Air 05/03/20 04:00 36.3 69 24 134/67 (89) 95 Room Air 05/03/20 00:34 36.3 61 20 112/50 (70) 97 Room Air 05/02/20 20:00 96 Room Air 05/02/20 20:00 36.3 69 18 142/65 (90) 95 Room Air 05/02/20 19:30 36.3 05/02/20 19:30 36.3 05/02/20 16:00 36.2 67 18 142/63 (89) 91 Room Air 05/02/20 14:51 36.8 60 18 139/65 (89) 93 Room Air 05/02/20 14:30 61 16 93 Room Air 05/02/20 14:25 60 16 97 OxyMask 8 05/02/20 14:20 65 16 97 OxyMask 8 05/02/20 14:15 68 16 93 OxyMask 8 05/02/20 14:10 61 16 100 OxyMask 8 05/02/20 14:05 63 16 97 OxyMask 8 05/02/20 14:00 66 16 97 OxyMask 8 05/02/20 13:58 65 16 95 Room Air I & O 05/03/20 07:00 Intake Total 960 ml Output Total 300 ml Balance 660 ml Capillary Refill : Less Than 3 SecondsLess Than 3 Seconds General Appearance: Mild Distress Neck: Supple Respiratory: Lungs Clear Cardiovascular: Systolic Murmur, Irregularly Irregular Gastrointestinal: normal bowel sounds, soft, tenderness (epigastric) Extremity: Non Tender, No Calf Tenderness, No Pedal Edema Neurologic/Psychiatric: Alert Skin: Warm/Dry Results Lab Laboratory Tests 05/03/20 04:30: White Blood Count 11.0, Red Blood Count 3.67L, Hemoglobin 8.5#L, Hematocrit 28L, Mean Corpuscular Volume 76L, Mean Corpuscular Hemoglobin 23L, Mean Corpuscular Hemoglobin Concent 31L, Red Cell Distribution Width 21.6H, Platelet Count 437H, Mean Platelet Volume 9.1, Sodium Level 132L, Potassium Level 4.1, Chloride Level 102, Carbon Dioxide Level 19L, Anion Gap 11, Blood Urea Nitrogen 9, Creatinine 1.06, Estimat Glomerular Filtration Rate 50, BUN/Creatinine Ratio 8, Glucose Level 82, Calcium Level 8.7 Microbiology 05/02/20 MRSA Screen - Final, Complete Assessment/Plan Assessment/Plan Assess & Plan/Chief Complaint 1. Acute Blood Loss Anemia--S/P transfusion with improved H/H--eliquis on hold and monitoring H/H 2. Large Hiatal Hernia with Gastritis on EGD--on pantoprazole IV 3. Chronic Atrial Fibrillation--medical management, eliquis on hold due to #1 4. Chronic Back Pain--add lidoderm patch 5. Dementia with Behavior disorder--exelon and other psych meds restarted Clinical Quality Measures DVT/VTE Risk/Contraindication: Risk Factor Score Per Nursin RFS Level Per Nursing on Admit: 4+=Very High RADHA LEYVA DO May 03, 2020 12:00
[2020-05-03] MEDS: LACTATED RINGERS 1,000 ML IV SCH (13:01)
[2020-05-03] MEDS: fentaNYL INJECTION 100 MCG/2 ML AMP IV PRN (13:05)
[2020-05-03 16:00] VITALS: BP 147/63
[2020-05-03 20:00] VITALS: BP 158/73
[2020-05-03] MEDS: SIMvastatin 20 MG (ZOCOR) TAB PO SCH (21:00)
[2020-05-04] VITALS (7 sets, daily range): BP systolic 148–185; BP diastolic 63–97
[2020-05-04 04:58] LABS: HEMOGLOBIN 8.4 g/dL (11.5-16.0); MEAN PLATELET VOLUME 8.6 fL (9.0-12.2); WHITE BLOOD COUNT 10.5 10^3/uL (4.3-11.0)
[2020-05-04 05:12] LABS: POTASSIUM 3.7 MMOL/L (3.6-5.0)
[2020-05-04 05:13] LABS: CALCIUM 8.6 MG/DL (8.5-10.1)
[2020-05-04 05:18] LABS: CREATININE SERUM 0.94 MG/DL (0.60-1.30)
[2020-05-04] MEDS: POTASSIUM CL 10MEQ/50ML IVPB 50 ML IV SCH (05:55)
[2020-05-04] MEDS: KCL 20 MEQ TAB (K-DUR) PO SCH (05:56)
[2020-05-04] MEDS: MAGNESIUM 1 GM/100 ML IVPB 100 ML IV SCH (05:56)
[2020-05-04] MEDS: ADVAIR HFA 115/21 MCG INHALER 8 GM IH SCH (07:40)
[2020-05-04] MEDS: PANTOPRAZOLE 40 MG (PROTONIX) VIAL IV SCH ×2 (08:44→20:46)
[2020-05-04] MEDS: LIDOCAINE 4% (SALONPAS) PATCH TOP SCH (08:44)
[2020-05-04] MEDS: OXYBUTYNIN (DITROPAN) 5 MG TAB PO SCH ×2 (08:44→20:44)
[2020-05-04] MEDS: RIVASTIGMINE 1.5 MG (EXELON) CAP PO SCH ×2 (08:44→20:44)
[2020-05-04] MEDS: QUEtiapine 100 MG (SEROquel) TAB IMMEDIATE RELEASE PO SCH ×2 (08:44→20:43)
[2020-05-04] MEDS: lisINopril 20 MG (PRINIVIL) TABLET PO SCH ×2 (08:44→20:45)
[2020-05-04] MEDS: MONTELUKAST 10 MG (SINGULAIR) TAB PO SCH (08:44)
[2020-05-04] MEDS: CARVEDILOL 3.125 MG (COREG) TABLET PO SCH ×2 (08:44→20:45)
[2020-05-04] MEDS: LORazepam 0.5 MG (ATIVAN) TABLET PO SCH ×2 (08:44→20:43)
[2020-05-04] MEDS: FLUTICASONE NASAL SPRAY (FLONASE) 16 GM BTL NS SCH ×2 (08:45→20:46)
[2020-05-04] MEDS: LACTATED RINGERS 1,000 ML IV SCH (08:48)
[2020-05-04] MEDS ORDERED: CALCITONIN NASAL 200 INTLU/AC (FORTICAL) 3.7 ML BTL SCH (09:00)
--- NOTE | 2020-05-04 10:08 | Progress Note ---
Subjective Date Seen by a Provider: May 04, 2020 Time Seen by a Provider: 10:05 Subjective/Events-last exam Fwup acute blood loss anemia, chronic atrial fibrillation, chronic back pain, dementia with behavior disorder. Lidoderm patches have helped back pain. Stomach not as tender. States had nose bleed last night. Objective Exam Vital Signs Date Time Temp Pulse Resp B/P (MAP) Pulse Ox O2 Delivery O2 Flow Rate FiO2 05/04/20 08:00 36.6 65 22 185/82 (116) 94 Room Air 05/04/20 08:00 96 Room Air 05/04/20 07:41 96 Room Air 05/04/20 04:00 36.0 67 20 148/63 (91) 94 Room Air 05/04/20 00:37 36.4 66 18 165/70 (101) 95 Room Air 05/03/20 20:00 36.2 68 18 158/73 (101) 96 Room Air 05/03/20 20:00 96 Room Air 05/03/20 16:00 36.5 66 18 147/63 (91) 97 Room Air 05/03/20 12:00 36.4 70 24 170/80 (110) 95 Room Air I & O 05/04/20 07:00 Intake Total 3400 ml Output Total 3250 ml Balance 150 ml Capillary Refill : Less Than 3 SecondsLess Than 3 Seconds General Appearance: No Apparent Distress Respiratory: Lungs Clear Cardiovascular: Regular Rate, Rhythm, Systolic Murmur Gastrointestinal: normal bowel sounds, non tender, soft Extremity: Non Tender, No Calf Tenderness, No Pedal Edema Neurologic/Psychiatric: Alert, Oriented x3 Skin: Warm/Dry Results Lab Laboratory Tests 05/04/20 04:30: White Blood Count 10.5, Red Blood Count 3.66L, Hemoglobin 8.4L, Hematocrit 28L, Mean Corpuscular Volume 76L, Mean Corpuscular Hemoglobin 23L, Mean Corpuscular Hemoglobin Concent 30L, Red Cell Distribution Width 22.8H, Platelet Count 490H, Mean Platelet Volume 8.6L, Sodium Level 134L, Potassium Level 3.7, Chloride Level 102, Carbon Dioxide Level 21, Anion Gap 11, Blood Urea Nitrogen 8, Creatinine 0.94, Estimat Glomerular Filtration Rate 58, BUN/Creatinine Ratio 9, Glucose Level 91, Calcium Level 8.6 Microbiology 05/02/20 MRSA Screen - Final, Complete Assessment/Plan Assessment/Plan Assess & Plan/Chief Complaint 1. Acute Blood Loss Anemia--S/P transfusion with improved H/H--eliquis on hold and monitoring H/H 2. Large Hiatal Hernia with Gastritis on EGD--on pantoprazole IV 3. Chronic Atrial Fibrillation--medical management, eliquis on hold due to #1 so will consult cardiology for further recommendations on anticoagulation--Hemoglobin is stable this morning 4. Chronic Back Pain--lidoderm patch has helpd 5. Dementia with Behavior disorder--exelon and other psych meds restarted Clinical Quality Measures DVT/VTE Risk/Contraindication: Risk Factor Score Per Nursin RFS Level Per Nursing on Admit: 4+=Very High RADHA LEYVA DO May 04, 2020 10:08
--- NOTE | 2020-05-04 11:59 | Progress Note-Pre Operative ---
Pre-Operative Progress Note H&P Reviewed The H&P was reviewed, patient examined and no changes noted. Date Seen by Provider: May 04, 2020 Time Seen by Provider: 11:30 Date H&P Reviewed: May 04, 2020 Time H&P Reviewed: :30 Pre-Operative Diagnosis: persistent anemia, PAD SMITH SCHWARTZ MD May 04, 2020 11:59
--- NOTE | 2020-05-04 13:08 | NUR ---
KENNETH/TIRSO received a message from Naomy, one of the caregivers for the patient. She had questions regarding discharge and when she may be able to due to the patient's anxiety being here. KENNETH/TIRSO informed her unsure of discharge date at this time but to call back to the nurse later in the day.
[2020-05-04] MEDS ORDERED: MAGNESIUM CITRATE 300 ML BTL PO NR (14:00)
--- NOTE | 2020-05-04 14:11 | Consultation-Cardiology ---
HPI-Cardiology Cardiology Consultation Date of Consultation 05/04/20 Date of Admission Time Seen by Provider: 14:05 Indication: GI bleed HPI 80-year-old lady with history of dementia. Admitted with acute severe anemia. Had blood transfusion and improved. Underwent upper endoscopy which showed gastritis. Patient had extensive cardiac history and has been maintained on oral anticoagulation as an outpatient. On my evaluation she denied any pain or palpitation. No shortness of breath. Has scar of abdominal surgery. Home Medications & Allergies Allergies: Coded Allergies: Penicillins (Verified Allergy, Mild, 07/17/19) ketorolac (Verified Allergy, Mild, 07/17/19) morphine (Verified Allergy, Mild, 07/17/19) tetracycline (Verified Allergy, Mild, 07/17/19) paroxetine (Unverified Allergy, Unknown, 07/17/19) Home Medication List Reviewed: Yes NWS-Uyaffo-Cyfjso Hx Patient Social History Alcohol Use: Denies Use Recreational Drug Use: No Smoking Status: Never a Smoker 2nd Hand Smoke Exposure: No Recent Foreign Travel: No Recent Infectious Disease Expo: No Recent Hopitalizations: No Physical Abuse Screen: No Sexual Abuse: No Immunizations Up To Date Tetanus Booster (TDap): Unknown Date of Pneumonia Vaccine: Feb 10, 2015 Date of Influenza Vaccine: Mar 27, 2020 Past Medical History Discussed below Family Medical History Family Medical Hx Noncontributory Family History: Blood clots (sister had a blood clot in the brain which caused her  in 2010) Review of Systems-General Review of Systems Constitutional: no symptoms reported, see HPI, malaise, weakness EENTM: see HPI, no symptoms reported Respiratory: no symptoms reported, see HPI Cardiovascular: see HPI; No chest pain, No edema, No Hx of Intervention, No palpitations, No syncope, No vascular heart diseas, No other Gastrointestinal: no symptoms reported, see HPI Genitourinary: no symptoms reported, see HPI Musculoskeletal: see HPI, back pain Skin: no symptoms reported, see HPI Psychiatric/Neurological: No Symptoms Reported, See HPI Reviewed Test Results Reviewed Test Results Lab Laboratory Tests Test 05/04/20 04:30 Range/Units White Blood Count 10.5 4.3-11.0 10^3/uL Red Blood Count 3.66 L 3.80-5.11 10^6/uL Hemoglobin 8.4 L 11.5-16.0 g/dL Hematocrit 28 L 35-52 % Mean Corpuscular Volume 76 L 80-99 fL Mean Corpuscular Hemoglobin 23 L 25-34 pg Mean Corpuscular Hemoglobin Concent 30 L 32-36 g/dL Red Cell Distribution Width 22.8 H 10.0-14.5 % Platelet Count 490 H 130-400 10^3/uL Mean Platelet Volume 8.6 L 9.0-12.2 fL Sodium Level 134 L 135-145 MMOL/L Potassium Level 3.7 3.6-5.0 MMOL/L Chloride Level 102 98-107 MMOL/L Carbon Dioxide Level 21 21-32 MMOL/L Anion Gap 11 5-14 MMOL/L Blood Urea Nitrogen 8 7-18 MG/DL Creatinine 0.94 0.60-1.30 MG/DL Estimat Glomerular Filtration Rate 58 BUN/Creatinine Ratio 9 Glucose Level 91 70-105 MG/DL Calcium Level 8.6 8.5-10.1 MG/DL Physical Exam Physical Exam Vital Signs Vital Signs - First Documented 04/30/20 04/30/20 05/02/20 09:03 12:20 14:00 Temp 36.3 Pulse 86 Resp 18 B/P (MAP) 198/81 (120) Pulse Ox 96 O2 Delivery Room Air O2 Flow Rate 8 Capillary Refill : Less Than 3 SecondsLess Than 3 Seconds Height, Weight, BMI Height: 5'3.00" Weight: 150lbs. 0.0oz. 68.884758ho; 33.36 BMI Method:Stated General Appearance: No Apparent Distress Eyes: Bilateral Eye Normal Inspection, Bilateral Eye PERRL, Bilateral Eye EOMI HEENT: PERRL/EOMI, Pharynx Normal Neck: Supple Respiratory: Lungs Clear Cardiovascular: Regular Rate, Rhythm, Systolic Murmur Gastrointestinal: Normal Bowel Sounds, Non Tender, Soft Back: Muscle Spasm, Other (Tender over the mid thoracic region) Extremity: Non Tender, No Calf Tenderness, No Pedal Edema Neurologic/Psychiatric: Alert, Oriented x3 Skin: Warm/Dry Lymphatic: No Adenopathy A/P-Cardiology Admission Diagnosis Acute anemia Paroxysmal atrial fibrillation Sinus node dysfunction Coronary artery disease Assessment/Plan Anemia, acute loss, received blood transfusion, endoscopy did not show any sour ce of active bleeding other than large hiatal hernia and gastritis. I discussed the management plan with Dr. LEYVA and Dr. Kido, patient will have colonoscopy done tomorrow to rule out any source of bleeding. Having the pacemaker monitoring candidate text any further episode of atrial fibrillation. I agree with holding oral anticoagulation at this time although there is an increased risk of stroke if she goes back to atrial fibrillation. History of paroxysmal atrial fibrillation, currently in sinus rhythm. Her EKG on admission showing sinus rhythm with artifact. 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 Pacemaker reprogramming was successful in July 2019. Has been followed and monitored by Dr. Louie Coronary artery disease, had a cardiac catheterization by Dr. Louie reported as sluggish coronary flow with no significant obstructive disease Congestive heart failure, history of left ventricular systolic dysfunction, last echo was reported improvement with ejection fraction 70 percent H/o alpha-1 antitrypsin-associated COPD, managed by Pulmonology No significant obstructive PAD of the legs on segmental pressure study of 07/04/19 History of hypertension, continue to monitor blood pressure History of hyperlipidemia, monitor lipids History of chronic kidney disease. Continue to monitor renal function Clinical Quality Measures DVT/VTE Risk/Contraindication: Risk Factor Score Per Nursin RFS Level Per Nursing on Admit: 4+=Very High GRISEL DELA CRUZ MD May 04, 2020 14:11
[2020-05-04] MEDS: LORazepam 0.5 MG (ATIVAN) TABLET PO PRN (16:25)
[2020-05-04] MEDS: ACETAMINOPHEN 500 MG TAB (TYLENOL) PO PRN (16:25)
[2020-05-04] MEDS: SIMvastatin 20 MG (ZOCOR) TAB PO SCH (20:45)
[2020-05-04] MEDS ORDERED: MAGNESIUM CITRATE 300 ML BTL PO ONE (21:00)
[2020-05-05] VITALS (8 sets, daily range): BP systolic 156–202; BP diastolic 68–98
[2020-05-05] MEDS ORDERED: RT-ALBUTEROL SULF 2.5 MG/3 ML PRE-MIX VIAL INH PRN (00:45)
--- NOTE | 2020-05-05 01:00 | NUR ---
0025-PCT NINA CALLED THIS RN INTO THE ROOM TO CHECK ON PT, PT HAD JUST RETURNED TO BED FROM THE BEDSIDE COMMODE, PT WHEEZING BILATERALLY THROUGHOUT AND SOA, SPO2 95% HR 68, RESPIRATORY RATE 22, PT STATED THAT SHE HAD "REGURGITATED SOME SOUR STUFF UP AND KIND OF CHOKED ON IT" 0031-THIS RN CALLED DR. LEYVA-ORDERS RECEIVED-PRN ALBUTEROL TX & STAT CXR. 0044-PRN ALBUTEROL BREATHING TREATMENT GIVEN FOR THE BILATERAL WHEEZING & SOA. 0055-PT STATES THAT SHE IS BREATHING WITH EASE. WHEEZING BILATERALLY HAS RESOLVED. SPO2 97% RA, HR 70, RESPIRATORY RATE 20
[2020-05-05] MEDS: ACETAMINOPHEN 500 MG TAB (TYLENOL) PO PRN ×3 (01:29→21:50)
[2020-05-05] MEDS: LACTATED RINGERS 1,000 ML IV SCH (05:35)
[2020-05-05 05:42] LABS: HEMOGLOBIN 9.2 g/dL (11.5-16.0); MEAN PLATELET VOLUME 8.4 fL (9.0-12.2); WHITE BLOOD COUNT 11.9 10^3/uL (4.3-11.0)
[2020-05-05 05:53] LABS: CHLORIDE 102 MMOL/L (98-107); POTASSIUM 3.7 MMOL/L (3.6-5.0); SODIUM 136 MMOL/L (135-145)
[2020-05-05 05:55] LABS: GLUCOSE 103 MG/DL (70-105)
[2020-05-05 05:56] LABS: CARBON DIOXIDE 24 MMOL/L (21-32)
[2020-05-05 05:59] LABS: CREATININE SERUM 0.87 MG/DL (0.60-1.30); GFR ESTIMATED > 60
[2020-05-05 06:00] LABS: BUN/CREATININE RATIO 8
[2020-05-05] MEDS: POTASSIUM CL 10MEQ/50ML IVPB 50 ML IV SCH (06:15)
[2020-05-05] MEDS: KCL 20 MEQ TAB (K-DUR) PO SCH (06:16)
--- NOTE | 2020-05-05 06:47 | Diagnostic Imaging Report ---
EXAMINATION: Chest 1 view HISTORY: Wheezing COMPARISON: 02/23/2020 FINDINGS: Left subclavian pacemaker is present. There is a right shoulder arthroplasty. There is an old right humeral fracture. There is mild atelectasis in the left mid zone. No pleural effusion or pneumothorax. Heart size is normal. IMPRESSION: 1. Mild left mid zone atelectasis, otherwise clear lungs. Dictated by: Dictated on workstation # [id number]
[2020-05-05] MEDS: MAGNESIUM 1 GM/100 ML IVPB 100 ML IV SCH (06:48)
[2020-05-05] MEDS ORDERED: FLEET ENEMA ADULT 1 EA BTL PR ONE (08:00)
[2020-05-05] MEDS: lisINopril 20 MG (PRINIVIL) TABLET PO SCH ×2 (08:17→20:51)
[2020-05-05] MEDS: LIDOCAINE 4% (SALONPAS) PATCH TOP SCH (08:17)
[2020-05-05] MEDS: CARVEDILOL 3.125 MG (COREG) TABLET PO SCH ×2 (08:17→20:51)
[2020-05-05] MEDS: FLUTICASONE NASAL SPRAY (FLONASE) 16 GM BTL NS SCH ×2 (08:18→21:07)
[2020-05-05] MEDS: PANTOPRAZOLE 40 MG (PROTONIX) VIAL IV SCH ×2 (08:18→20:55)
--- NOTE | 2020-05-05 08:49 | Progress Note ---
Subjective Subjective Date Seen by Provider: May 05, 2020 Time Seen by Provider: 08:30 80 Y/O FEMALE WHO IS A PATIENT OF DR. HDEZ WHO HAS HANDED OFF THE PATIENT TO THE HOSPITALIST SERVICE. TODAY THE PATIENT IS BEING PREPPED FOR COLONOSCOPY DUE TO HAVING ACUTE ANEMIA WITH EGD SHOWING ONLY GASTRITIS. SHE HAS AFIB AND REQUIRES ANTICOAGULATION, BUT WITH HER GROSS HEMOGLOBIN LOSS, THE SUPERVISOR STOCK RANCH REQUESTED COLONOSCOPY TO ASSURE NO LOWER GI BLEEDING. STAFF NOTES ACUTELY ELEVATED BLOOD PRESSURE THIS MORNING. Review of Systems General: No Chills; Fatigue HEENT: Head Aches; No Dysphasia Pulmonary: No Dyspnea, No Cough Cardiovascular: No: Chest Pain, Palpitations Gastrointestinal: No: Nausea, Abdominal Pain Genitourinary: No Dysuria Musculoskeletal: back pain Neurological: Weakness, Confusion Objective Exam Vital Signs Vital Signs - First Documented 04/30/20 04/30/20 05/02/20 09:03 12:20 14:00 Temp 36.3 Pulse 86 Resp 18 B/P (MAP) 198/81 (120) Pulse Ox 96 O2 Delivery Room Air O2 Flow Rate 8 Capillary Refill : Less Than 3 SecondsLess Than 3 Seconds General Appearance: No Apparent Distress, WD/WN Eyes: Bilateral Eye Normal Inspection, Bilateral Eye PERRL, Bilateral Eye EOMI HEENT: PERRL/EOMI, Pharynx Normal Neck: Full Range of Motion, Supple Respiratory: Chest Non Tender, Lungs Clear, Normal Breath Sounds, No Accessory Muscle Use, No Respiratory Distress Cardiovascular: Regular Rate, Rhythm, Systolic Murmur Gastrointestinal: Normal Bowel Sounds, Non Tender, Soft Rectal: Deferred Back: Muscle Spasm, Other (Tender over the mid thoracic region) Extremity: Non Tender, No Calf Tenderness, No Pedal Edema Neurologic/Psychiatric: Alert, Oriented x3, No Motor/Sensory Deficits, Normal Mood/Affect, direct marketing analyst II-XII Norm as Tested Skin: Normal Color, Warm/Dry Lymphatic: No Adenopathy Results Lab Laboratory Tests 05/05/20 05:30: White Blood Count 11.9H, Red Blood Count 4.02, Hemoglobin 9.2L, Hematocrit 31L, Mean Corpuscular Volume 78L, Mean Corpuscular Hemoglobin 23L, Mean Corpuscular Hemoglobin Concent 30L, Red Cell Distribution Width 24.2H, Platelet Count 471H, Mean Platelet Volume 8.4L, Sodium Level 136, Potassium Level 3.7, Chloride Level 102, Carbon Dioxide Level 24, Anion Gap 10, Blood Urea Nitrogen 7, Creatinine 0.87, Estimat Glomerular Filtration Rate > 60, BUN/Creatinine Ratio 8, Glucose Level 103, Calcium Level 9.0, Magnesium Level 2.7H Microbiology 05/02/20 MRSA Screen - Final, Complete Assessment/Plan Assessment/Plan Problems: (1) Acute blood loss anemia Assessment & Plan: HEMOGLOBIN IMPROVED AFTER TRANSFUSION CONTINUE WITH SUPPORTIVE CARE AT THIS TIME (2) Upper GI bleed Assessment & Plan: PPI THERAPY (3) Iron deficiency anemia Qualifiers: Qualified Codes: D50.0 - Iron deficiency anemia secondary to blood loss (chronic) (4) HTN (hypertension) Qualifiers: Qualified Codes: I10 - Essential (primary) hypertension Assessment & Plan: BLOOD PRESSURE UNCONTROLLED THIS MORNING - CONTINUE WITH COREG, LISINOPRIL, AND PRN HYDRALAZINE (5) HLD (hyperlipidemia) (6) Afib Qualifiers: Qualified Codes: I48.0 - Paroxysmal atrial fibrillation Assessment & Plan: HOLDING BLOOD THINNERS AT THIS TIME DUE TO ACUTE GI LOSSES. WAITING ON COLONOSCOPE TO RESTART MEDICATIONS. MONITOR HEART RATE (7) Obesity Qualifiers: (8) COPD (chronic obstructive pulmonary disease) (9) Anxiety Assessment & Plan: ON SEROQUEL Clinical Quality Measures DVT/VTE Risk/Contraindication: Risk Factor Score Per Nursin RFS Level Per Nursing on Admit: 4+=Very High LALA PULLIAM MD May 05, 2020 08:49
--- NOTE | 2020-05-05 09:16 | NUR ---
BP 205/95. DR PULLIAM AT BEDSIDE AND GAVE ORDER TO GIVE 10MG PO HYDRALAZINE STAT.
[2020-05-05] MEDS ORDERED: NS IV 500 ML 500 ML ONE (09:49)
[2020-05-05] MEDS ORDERED: fentaNYL INJECTION 100 MCG/2 ML AMP IVP ONE (10:15)
[2020-05-05] MEDS ORDERED: MIDAZOLAM 5 MG/5 ML (VERSED) VIAL IV ONE (10:15)
[2020-05-05] MEDS ORDERED: NS IV 500 ML 500 ML IV ONE (10:15)
[2020-05-05] MEDS ORDERED: LIDOCAINE JELLY 2% 6 ML SYRINGE MM PRN (10:15)
[2020-05-05] MEDS: LORazepam 0.5 MG (ATIVAN) TABLET PO SCH ×2 (10:32→20:51)
[2020-05-05] MEDS: OXYBUTYNIN (DITROPAN) 5 MG TAB PO SCH ×2 (10:32→20:51)
[2020-05-05] MEDS: RIVASTIGMINE 1.5 MG (EXELON) CAP PO SCH ×2 (10:32→20:51)
[2020-05-05] MEDS: QUEtiapine 100 MG (SEROquel) TAB IMMEDIATE RELEASE PO SCH ×2 (10:33→21:06)
[2020-05-05] MEDS: MONTELUKAST 10 MG (SINGULAIR) TAB PO SCH (10:34)
--- NOTE | 2020-05-05 12:31 | NUR ---
RITIKA RODRIGUEZ, PT DAUGHTER CALLED AND WAS UPDATED
--- NOTE | 2020-05-05 12:48 | Cardiology Progress Note ---
Subjective Date Seen by Provider: May 05, 2020 Time Seen by Provider: 12:47 Subjective/Events-last exam Patient is laying down in bed, complaining of generalized fatigue and loss of energy. Review of Systems General: No Chills, No Night Sweats; Fatigue; No Malaise, No Appetite, No Other HEENT: No Head Aches, No Visual Changes, No Eye Pain, No Ear Pain, No Dysphasia, No Sinus Congestion, No Post Nasal Drip, No Sore Throat, No Other Pulmonary: No Dyspnea, No Cough, No Pleuritic Chest Pain, No Other Cardiovascular: No: Chest Pain, Palpitations, Orthopnea, Paroxysmal Noc. Dyspnea, Edema, Lt Headedness, Other Objective-Cardiology Exam Last Set of Vital Signs Vital Signs 05/05/20 05/05/20 09:15 10:24 Temp 36.4 Pulse 67 Resp 18 B/P (MAP) 192/79 (116) Pulse Ox 94 O2 Delivery Room Air O2 Flow Rate 8.00 8.00 Capillary Refill : Less Than 3 SecondsLess Than 3 Seconds I&O Intake and Output 05/05/20 00:00 Intake Total 2830 ml Output Total 3950 ml Balance -1120 ml Intake Oral 2830 ml Output Urine Total 3950 ml # Bowel Movements 1 General: Alert, Oriented X3, Cooperative HEENT: Atraumatic, PERRLA Neck: Supple, No JVD, No Thyromegaly Lungs: Clear to Auscultation, Normal Air Movement Heart: Regular Rate, Normal S1, Normal S2, No Murmurs Abdomen: Normal Bowel Sounds, Soft, No Tenderness, No Hepatosplenomegaly, No Masses Extremities: No Clubbing, No Cyanosis, No Edema, Normal Pulses, No Tenderness/Swelling Skin: No Rashes, No Breakdown, No Significant Lesion Neuro: Normal Gait, Normal Speech, Strength at 5/5 X4 Ext, Normal Tone, Sensation Intact Psych/Mental Status: Mental Status NL, Mood NL Results Lab Laboratory Tests 05/05/20 05:30 A/P-Cardiology Admission Diagnosis Acute anemia Paroxysmal atrial fibrillation Sinus node dysfunction Coronary artery disease Assessment/Plan Anemia, acute loss, received blood transfusion, endoscopy did not show any source of active bleeding other than large hiatal hernia and gastritis. I agree with holding oral anticoagulation at this time although there is an increased risk of stroke if she goes back to atrial fibrillation. History of paroxysmal atrial fibrillation, currently in sinus rhythm. Her EKG on admission showing sinus rhythm with artifact. 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 Pacemaker reprogramming was successful in July 2019. Has been followed and monitored by Dr. Louie Coronary artery disease, had a cardiac catheterization by Dr. Louie reported as sluggish coronary flow with no significant obstructive disease Congestive heart failure, history of left ventricular systolic dysfunction, last echo was reported improvement with ejection fraction 70 percent H/o alpha-1 antitrypsin-associated COPD, managed by Pulmonology No significant obstructive PAD of the legs on segmental pressure study of 07/04/19 History of hypertension, continue to monitor blood pressure History of hyperlipidemia, monitor lipids History of chronic kidney disease. Continue to monitor renal function Clinical Quality Measures DVT/VTE Risk/Contraindication: Risk Factor Score Per Nursin RFS Level Per Nursing on Admit: 4+=Very High GRISEL DELA CRUZ MD May 05, 2020 12:48 pm
[2020-05-05] MEDS: ADVAIR HFA 115/21 MCG INHALER 8 GM IH SCH (13:46)
[2020-05-05] MEDS ORDERED: MAGNESIUM CITRATE 300 ML BTL PO ONE ×2 (15:00→18:00)
[2020-05-05] MEDS: LORazepam 0.5 MG (ATIVAN) TABLET PO PRN (16:52)
--- NOTE | 2020-05-05 17:09 | Progress Note-Pre Operative ---
Pre-Operative Progress Note H&P Reviewed The H&P was reviewed, patient examined and no changes noted. Date Seen by Provider: May 05, 2020 Time Seen by Provider: 17:00 Date H&P Reviewed: May 05, 2020 Time H&P Reviewed: 17:00 Pre-Operative Diagnosis: anemia with PAD SMITH SCHWARTZ MD May 05, 2020 17:09
--- NOTE | 2020-05-05 17:09 | Conscious Sedation/ASA ---
Conscious Sedation Pre-Proced Time 17:00 ASA Score 3 For ASA 3 and 4: Consider anesthesia and medical clearance. Also, for patients with a history of failed moderate sedation consider anesthesia. Airway Lungs Heart ASA score ASA 1: a normal healthy patient ASA 2: a patient with a mild systemic disease (mid diabetes, controlled hypertension, obesity ASA 3: a patient with a severe systemic disease that limits activity (angina, COPD, prior Myocardial infarction) ASA 4: a patient with an incapacitating disease that is a constant threat to life (CHF, renal failure) ASA 5: a moribund patient not expected to survive 24 hrs. (ruptured aneurysm) ASA 6: a declared brain- patient whose organs are being harvested. For emergent operations, add the letter E after the classification Mallampati Classification Grade 2 Sedation Plan Analgesia, Amnesia, Plan communicated to team members, Discussed options with patient/fam, Discussed risks with patient/fam The patient is an appropriate candidate to undergo the planned procedure, sedation, and anesthesia. The patient immediately re-assessed prior to indication. SMITH SCHWARTZ MD May 05, 2020 17:09
[2020-05-05] MEDS ORDERED: hydrALAZINE (APESOLINE) 20 MG/ML VIAL ONE (19:02)
[2020-05-05] MEDS: hydrALAZINE (APESOLINE) 20 MG/ML VIAL IV PRN (19:05)
[2020-05-05] MEDS: fentaNYL INJECTION 100 MCG/2 ML AMP IV PRN (19:09)
[2020-05-05] MEDS: SIMvastatin 20 MG (ZOCOR) TAB PO SCH (20:51)
[2020-05-06] VITALS (21 sets, daily range): BP systolic 147–217; BP diastolic 60–97
[2020-05-06] MEDS: fentaNYL INJECTION 100 MCG/2 ML AMP IV PRN ×3 (00:34→11:47)
[2020-05-06 06:20] LABS: HEMOGLOBIN 9.5 g/dL (11.5-16.0); MEAN PLATELET VOLUME 8.8 fL (9.0-12.2); WHITE BLOOD COUNT 10.4 10^3/uL (4.3-11.0)
[2020-05-06 06:48] LABS: CHLORIDE 102 MMOL/L (98-107); POTASSIUM 3.5 MMOL/L (3.6-5.0); SODIUM 138 MMOL/L (135-145)
[2020-05-06 06:49] LABS: CALCIUM 9.3 MG/DL (8.5-10.1); GLUCOSE 92 MG/DL (70-105)
[2020-05-06 06:51] LABS: CARBON DIOXIDE 23 MMOL/L (21-32)
[2020-05-06 06:53] LABS: CREATININE SERUM 0.87 MG/DL (0.60-1.30); GFR ESTIMATED > 60
[2020-05-06 06:54] LABS: BUN/CREATININE RATIO 9
[2020-05-06 06:55] LABS: MAGNESIUM 2.9 MG/DL (1.6-2.4)
[2020-05-06] MEDS: POTASSIUM CL 10MEQ/50ML IVPB 50 ML IV SCH (06:55)
[2020-05-06] MEDS: KCL 20 MEQ TAB (K-DUR) PO SCH (06:58)
[2020-05-06] MEDS: MAGNESIUM 1 GM/100 ML IVPB 100 ML IV SCH (06:58)
[2020-05-06] MEDS ORDERED: KCL 20 MEQ TAB (K-DUR) PO ONE (07:00)
[2020-05-06] MEDS: hydrALAZINE (APESOLINE) 20 MG/ML VIAL IV PRN (07:43)
[2020-05-06] MEDS: ADVAIR HFA 115/21 MCG INHALER 8 GM IH SCH (07:47)
--- NOTE | 2020-05-06 07:49 | NUR ---
PTS SYSTOLIC WAS OVER 200, PRN APRESOLINE ADMIN. DR DELA CRUZ NOTIFIED ON ROUNDS AND PRESCRIBED ONE TIME DOSE OF 0.1 MG CLONIDINE NOW.
[2020-05-06] MEDS ORDERED: cloNIDine 0.1 MG (CATAPRES) TAB PO ONE (08:00)
[2020-05-06] MEDS: amLODIPine 10 MG (NORVASC) TAB PO SCH (08:01)
[2020-05-06] MEDS: lisINopril 20 MG (PRINIVIL) TABLET PO SCH ×2 (08:01→20:38)
[2020-05-06] MEDS: CARVEDILOL 3.125 MG (COREG) TABLET PO SCH ×2 (08:01→20:38)
--- NOTE | 2020-05-06 08:52 | Cardiology Progress Note ---
Subjective Date Seen by Provider: May 06, 2020 Time Seen by Provider: 08:50 Subjective/Events-last exam Patient is laying down in bed. No new complaint. Feeling better. Review of Systems General: No Chills, No Night Sweats, No Fatigue, No Malaise, No Appetite, No Other HEENT: No Head Aches, No Visual Changes, No Eye Pain, No Ear Pain, No Dysphasia, No Sinus Congestion, No Post Nasal Drip, No Sore Throat, No Other Pulmonary: No Dyspnea, No Cough, No Pleuritic Chest Pain, No Other Cardiovascular: No: Chest Pain, Palpitations, Orthopnea, Paroxysmal Noc. Dyspnea, Edema, Lt Headedness, Other Objective-Cardiology Exam Last Set of Vital Signs Vital Signs 05/05/20 05/06/20 05/06/20 16:00 04:00 07:47 Temp 36.4 Pulse 66 Resp 22 B/P (MAP) 187/79 (115) Pulse Ox 96 O2 Delivery Room Air O2 Flow Rate 8.00 8.00 Capillary Refill : Less Than 3 SecondsLess Than 3 Seconds I&O Intake and Output 05/06/20 00:00 Intake Total 2750 ml Output Total 2100 ml Balance 650 ml Intake Oral 1750 ml IV Total 1000 ml Output Urine Total 700 ml Stool Total 400 ml Urine/Stool Mix 1000 ml # Voids 6 # Bowel Movements 6 General: Alert, Oriented X3, Cooperative HEENT: Atraumatic, PERRLA Neck: Supple, No JVD, No Thyromegaly Lungs: Clear to Auscultation, Normal Air Movement Heart: Regular Rate, Normal S1, Normal S2, No Murmurs Abdomen: Normal Bowel Sounds, Soft, No Tenderness, No Hepatosplenomegaly, No Masses Extremities: No Clubbing, No Cyanosis, No Edema, Normal Pulses, No Tenderness/Swelling Skin: No Rashes, No Breakdown, No Significant Lesion Neuro: Normal Gait, Normal Speech, Strength at 5/5 X4 Ext, Normal Tone, Sensation Intact Psych/Mental Status: Mental Status NL, Mood NL Results Lab Laboratory Tests 05/06/20 05:57 A/P-Cardiology Admission Diagnosis Acute anemia Paroxysmal atrial fibrillation Sinus node dysfunction Coronary artery disease Assessment/Plan Anemia, acute loss, received blood transfusion, endoscopy did not show any source of active bleeding other than large hiatal hernia and gastritis, going for colonoscopy today. I agree with holding oral anticoagulation at this time although there is an increased risk of stroke if she goes back to atrial fibrillation. History of paroxysmal atrial fibrillation, currently in sinus rhythm. Her EKG on admission showing sinus rhythm with artifact. Continue to monitor Hypertension, elevated today. I added Norvasc 10 mg daily and give her one dose of clonidine prior to her colonoscopy. 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 Pacemaker reprogramming was successful in July 2019. Has been followed and monitored by Dr. Louie Coronary artery disease, had a cardiac catheterization by Dr. Louie reported as sluggish coronary flow with no significant obstructive disease Congestive heart failure, history of left ventricular systolic dysfunction, last echo was reported improvement with ejection fraction 70 percent H/o alpha-1 antitrypsin-associated COPD, managed by Pulmonology No significant obstructive PAD of the legs on segmental pressure study of 07/04/19 History of hyperlipidemia, monitor lipids History of chronic kidney disease. Continue to monitor renal function Clinical Quality Measures DVT/VTE Risk/Contraindication: Risk Factor Score Per Nursin RFS Level Per Nursing on Admit: 4+=Very High GRISEL DELA CRUZ MD May 06, 2020 08:51
[2020-05-06] MEDS: LIDOCAINE 4% (SALONPAS) PATCH TOP SCH (09:15)
[2020-05-06] MEDS: LACTATED RINGERS 1,000 ML IV SCH (09:15)
--- NOTE | 2020-05-06 09:15 | Progress Note ---
Subjective Subjective Date Seen by Provider: May 06, 2020 Time Seen by Provider: 09:30 80 Y/O FEMALE WHO IS A PATIENT OF DR. HDEZ WHO HAS HANDED OFF THE PATIENT TO THE HOSPITALIST SERVICE. TODAY THE PATIENT IS BEING PREPPED FOR COLONOSCOPY DUE TO HAVING ACUTE ANEMIA WITH EGD SHOWING ONLY GASTRITIS. SHE HAS AFIB AND REQUIRES ANTICOAGULATION, BUT WITH HER GROSS HEMOGLOBIN LOSS, THE TIRE DUSTER REQUESTED COLONOSCOPY TO ASSURE NO LOWER GI BLEEDING. Review of Systems General: No Chills, No Night Sweats, No Fatigue, No Malaise, No Appetite, No Other HEENT: No Head Aches, No Visual Changes, No Eye Pain, No Ear Pain, No Dysphasia, No Sinus Congestion, No Post Nasal Drip, No Sore Throat, No Other Pulmonary: No Dyspnea, No Cough, No Pleuritic Chest Pain, No Other Cardiovascular: No: Chest Pain, Palpitations, Orthopnea, Paroxysmal Noc. Dyspnea, Edema, Lt Headedness, Other Gastrointestinal: No: Nausea, Abdominal Pain Genitourinary: No Dysuria Musculoskeletal: back pain Neurological: Weakness, Confusion Objective Exam Vital Signs Vital Signs - First Documented 04/30/20 04/30/20 05/02/20 09:03 12:20 14:00 Temp 36.3 Pulse 86 Resp 18 B/P (MAP) 198/81 (120) Pulse Ox 96 O2 Delivery Room Air O2 Flow Rate 8 Capillary Refill : Less Than 3 SecondsLess Than 3 Seconds General Appearance: No Apparent Distress, WD/WN Eyes: Bilateral Eye Normal Inspection, Bilateral Eye PERRL, Bilateral Eye EOMI HEENT: PERRL/EOMI, Pharynx Normal Neck: Full Range of Motion, Supple Respiratory: Chest Non Tender, Lungs Clear, Normal Breath Sounds, No Accessory Muscle Use, No Respiratory Distress Cardiovascular: Regular Rate, Rhythm, Systolic Murmur Gastrointestinal: Normal Bowel Sounds, Non Tender, Soft Rectal: Deferred Back: Muscle Spasm, Other (Tender over the mid thoracic region) Extremity: Non Tender, No Calf Tenderness, No Pedal Edema Neurologic/Psychiatric: Alert, Oriented x3, No Motor/Sensory Deficits, Normal Mood/Affect, trim die maker II-XII Norm as Tested Skin: Normal Color, Warm/Dry Lymphatic: No Adenopathy Results Lab Laboratory Tests 05/06/20 05:57: White Blood Count 10.4, Red Blood Count 4.04, Hemoglobin 9.5L, Hematocrit 32L, Mean Corpuscular Volume 80, Mean Corpuscular Hemoglobin 24L, Mean Corpuscular Hemoglobin Concent 29L, Red Cell Distribution Width 25.3H, Platelet Count 461H, Mean Platelet Volume 8.8L, Sodium Level 138, Potassium Level 3.5L, Chloride Level 102, Carbon Dioxide Level 23, Anion Gap 13, Blood Urea Nitrogen 8, Creatinine 0.87, Estimat Glomerular Filtration Rate > 60, BUN/Creatinine Ratio 9, Glucose Level 92, Calcium Level 9.3, Magnesium Level 2.9H Microbiology 05/02/20 MRSA Screen - Final, Complete Assessment/Plan Assessment/Plan Assessment and Plan WE WILL PLAN ON DISCHARGE TO HOME TOMORROW - HER CAREGIVER CAN PICK HER UP IN THE MORNING. Problems: (1) Acute blood loss anemia Assessment & Plan: HEMOGLOBIN IMPROVED AFTER TRANSFUSION CONTINUE WITH SUPPORTIVE CARE AT THIS TIME (2) Upper GI bleed Assessment & Plan: PPI THERAPY (3) Iron deficiency anemia Qualifiers: Qualified Codes: D50.0 - Iron deficiency anemia secondary to blood loss (chronic) (4) HTN (hypertension) Qualifiers: Qualified Codes: I10 - Essential (primary) hypertension Assessment & Plan: BLOOD PRESSURE UNCONTROLLED THIS MORNING - CONTINUE WITH COREG, LISINOPRIL, AND PRN HYDRALAZINE (5) HLD (hyperlipidemia) (6) Afib Qualifiers: Qualified Codes: I48.0 - Paroxysmal atrial fibrillation Assessment & Plan: RATE CONTROLLED IN SINUS RHYTHM AT THIS TIME. DISCUSSED WITH DR. DELA CRUZ - THE COLONOSCOPE WAS NEGATIVE FOR ACUTE SOURCE OF GI BLEEDING. DR. DELA CRUZ HAS RECOMMENDED PT TO BE DISCHARGED WITHOUT BLOOD THINNERS AT THIS TIME. THE PT AND FAMILY ARE AWARE OF INCREASED RISK OFF OF BLOOD THINNERS SHOULD SHE HAVE RECURRENT ATRIAL FIBRILLATION, BUT AT THIS TIME WITH PT IN SINUS RHYTHM AND HER ANEMIA, THE RISK OUTWEIGHS THE BENEFITS OF ELIQUIS ADMINISTRATION. (7) Obesity Qualifiers: (8) COPD (chronic obstructive pulmonary disease) (9) Anxiety Assessment & Plan: ON SEROQUEL Clinical Quality Measures DVT/VTE Risk/Contraindication: Risk Factor Score Per Nursin RFS Level Per Nursing on Admit: 4+=Very High LALA PULLIAM MD May 06, 2020 09:15
--- NOTE | 2020-05-06 09:48 | NUR ---
PT JUST LEFT TO GO TO SURGERY FOR COLONSCOPY. PTS BOWEL MOVEMENTS WERE CLEAR THIS MORNING.
[2020-05-06] MEDS ORDERED: NS IV 500 ML 500 ML ONE (09:58)
[2020-05-06] MEDS ORDERED: NS IV 500 ML 500 ML IV ONE (10:00)
[2020-05-06] MEDS ORDERED: LIDOCAINE JELLY 2% 6 ML SYRINGE MM PRN (10:00)
[2020-05-06] MEDS ORDERED: fentaNYL INJECTION 100 MCG/2 ML AMP IVP ONE (10:00)
[2020-05-06] MEDS ORDERED: MIDAZOLAM 5 MG/5 ML (VERSED) VIAL IV ONE (10:00)
[2020-05-06] MEDS ORDERED: LIDOCAINE JELLY 2% 6 ML SYRINGE ONE (10:07)
[2020-05-06] MEDS ORDERED: fentaNYL INJECTION 100 MCG/2 ML AMP ONE ×2 (10:07→10:18)
[2020-05-06] MEDS ORDERED: MIDAZOLAM 5 MG/5 ML (VERSED) VIAL ONE ×2 (10:07→10:18)
--- NOTE | 2020-05-06 10:39 | Progress Note-Post Operative ---
Post-Operative Progess Note Surgeon (s)/Plastic Parts Designer (s) Surgeon SMITH SCHWARTZ MD Plastic Parts Designer: none Pre-Operative Diagnosis anemia with PAD Post-Operative Diagnosis mild chronic stage 2 ext and int hemorroids. no active or chronic bleeding sources. Procedure & Operative Findings Date of Procedure 05/06/20 Procedure Performed/Findings Colonoscopy Anesthesia Type cs Estimated Blood Loss Estimated blood loss (mL): minimal Specimens/Packing Specimens Removed none SMITH SCHWARTZ MD May 06, 2020 10:39
--- NOTE | 2020-05-06 11:05 | OPERATIVE REPORT ---
DATE OF SERVICE: 05/06/2020 ATTENDING PRIMARY CARE PHYSICIAN Kay Rivera DO PREOPERATIVE DIAGNOSES: Anemia, back pain, hypertension and peripheral arterial disease. POSTOPERATIVE DIAGNOSES: Chronic stage II external and internal hemorrhoids. Remainder of the colon and rectum were normal. There were no acute or chronic bleeding sources identified. PROCEDURE PERFORMED: Colonoscopy. SURGEON: Smith Schwartz MD. ANESTHESIA: Conscious sedation. ESTIMATED BLOOD LOSS: Minimal. FINDINGS: Same as postoperative diagnoses. DISPOSITION: The patient tolerated the procedure well. INDICATIONS FOR PROCEDURE: The patient is a 72-year-old female, who presented to the Emergency Department with significant amount of back pain; however, she does have a history of vertebral compression fractures. She stated that this was worse and was found to have a low hemoglobin of 6.9. She was transfused 2 units of packed red blood cells and her hemoglobin did increase appropriately and her most recent hemoglobin was stable at 9.6 and hematocrit of 30. She has had issues with persistent hypertension on the floor. She does have a high risk of embolic event and needs to be anticoagulated. DESCRIPTION OF PROCEDURE: The patient was brought to the endoscopy suite and laid in the left lateral decubitus position. After adequate IV pain and sedative medications and conscious sedation anesthesia, digital rectal examination was performed. Mild chronic stage II external and internal hemorrhoids were identified, which were not actively edematous nor inflamed and no bleeding. Normal sphincter tone was felt and there were no palpable masses. The endoscope was then intubated to the anus and rectum gently insufflated. The endoscope was then advanced to the valves of Salas of the rectum with no polyps or any neoplasms identified. We then proceeded through the sigmoid colon, where no diverticulosis identified. The endoscope was then advanced to the remainder of the descending, transverse and ascending colon to the cecum. These segments were normal. There were no acute or chronic bleeding sources identified. The endoscope was then slowly withdrawn while taking a second look and suctioning residual air with no additional findings. The patient tolerated the procedure well. We will resume a heart healthy low sodium cardiac diet and she may resume anticoagulation at any time. We did do her previous EGD on this admission if she does have a significant sized hiatal hernia as well as gastritis and she will also need to be on a PPI acid olericulturist daily as well as finish out the course of Carafate q.i.d. for two weeks. Job ID: [id number] DocumentID: [id number] Dictated Date: 05/06/2020 10:45:32 Conductor And Engineer Date: 05/06/2020 11:04:38 Dictated By: SMITH SCHWARTZ MD
--- NOTE | 2020-05-06 11:21 | NUR ---
PT JUST ARRIVED BACK FROM SURGERY WITH TAMMI CACERES. PT REPORTS SHE FEELS GOOD AND WANTS TO SLEEP. TAMMI CACERES REPORTED THAT THE SCOPE WENT WELL, NO BIOPSIES OR POLYPS. POSSIBLE INTERNAL HEMORHHOIDS.
[2020-05-06] MEDS: LORazepam 0.5 MG (ATIVAN) TABLET PO SCH ×2 (11:43→20:38)
[2020-05-06] MEDS: QUEtiapine 100 MG (SEROquel) TAB IMMEDIATE RELEASE PO SCH ×2 (11:43→20:37)
[2020-05-06] MEDS: FLUTICASONE NASAL SPRAY (FLONASE) 16 GM BTL NS SCH ×2 (11:48→20:38)
[2020-05-06] MEDS: PANTOPRAZOLE 40 MG (PROTONIX) VIAL IV SCH ×2 (11:48→20:37)
[2020-05-06] MEDS: OXYBUTYNIN (DITROPAN) 5 MG TAB PO SCH ×2 (15:48→20:38)
[2020-05-06] MEDS: RIVASTIGMINE 1.5 MG (EXELON) CAP PO SCH ×2 (15:48→20:38)
[2020-05-06] MEDS: MONTELUKAST 10 MG (SINGULAIR) TAB PO SCH (15:49)
[2020-05-06] MEDS: SIMvastatin 20 MG (ZOCOR) TAB PO SCH (20:38)
[2020-05-06] MEDS: ACETAMINOPHEN 500 MG TAB (TYLENOL) PO PRN (23:40)
[2020-05-07 00:06] VITALS: BP 119/60
[2020-05-07 05:55] LABS: HEMOGLOBIN 9.4 g/dL (11.5-16.0); MEAN PLATELET VOLUME 11.5 fL (9.0-12.2); WHITE BLOOD COUNT 13.8 10^3/uL (4.3-11.0)
[2020-05-07] MEDS: LACTATED RINGERS 1,000 ML IV SCH (05:57)
[2020-05-07 06:11] LABS: POTASSIUM 4.2 MMOL/L (3.6-5.0)
[2020-05-07 06:12] LABS: CALCIUM 8.7 MG/DL (8.5-10.1)
[2020-05-07] MEDS: MAGNESIUM 1 GM/100 ML IVPB 100 ML IV SCH (06:15)
[2020-05-07] MEDS: KCL 20 MEQ TAB (K-DUR) PO SCH (06:15)
[2020-05-07] MEDS: POTASSIUM CL 10MEQ/50ML IVPB 50 ML IV SCH (06:15)
[2020-05-07 06:16] LABS: CREATININE SERUM 0.91 MG/DL (0.60-1.30)
[2020-05-07 08:00] VITALS: BP 178/77
--- NOTE | 2020-05-07 08:53 | Discharge Summary ---
Diagnosis/Chief Complaint Date of Admission May 01, 2020 at 14:14 Date of Discharge Admission Diagnosis Admission Diagnosis (1) Acute blood loss anemia (2) Upper GI bleed (3) Iron deficiency anemia (4) HTN (hypertension) (5) HLD (hyperlipidemia) (6) Afib (7) Obesity (8) COPD (chronic obstructive pulmonary disease) (9) Anxiety Discharge Diagnosis (1) Acute blood loss anemia (2) Upper GI bleed (3) Iron deficiency anemia (4) HTN (hypertension) (5) HLD (hyperlipidemia) (6) Afib (7) Obesity (8) COPD (chronic obstructive pulmonary disease) (9) Anxiety Discharge Summary Discharge Physical Examination Allergies: Coded Allergies: Penicillins (Verified Allergy, Mild, 07/17/19) ketorolac (Verified Allergy, Mild, 07/17/19) morphine (Verified Allergy, Mild, 07/17/19) tetracycline (Verified Allergy, Mild, 07/17/19) paroxetine (Unverified Allergy, Unknown, 07/17/19) Vitals & I&Os Vital Signs Date Time Temp Pulse Resp B/P (MAP) Pulse Ox O2 Delivery O2 Flow Rate FiO2 05/07/20 00:06 36.7 79 18 119/60 (79) 93 Room Air 05/06/20 11:00 5 Hospital Course (1) Acute blood loss anemia Assessment & Plan: HEMOGLOBIN IMPROVED AFTER TRANSFUSION CONTINUE WITH SUPPORTIVE CARE AT THIS TIME (2) Upper GI bleed Assessment & Plan: PPI THERAPY (3) Iron deficiency anemia Qualifiers: Qualified Codes: D50.0 - Iron deficiency anemia secondary to blood loss (chronic) (4) HTN (hypertension) Qualifiers: Qualified Codes: I10 - Essential (primary) hypertension Assessment & Plan: BLOOD PRESSURE UNCONTROLLED THIS MORNING - CONTINUE WITH COREG, LISINOPRIL, AND PRN HYDRALAZINE (5) HLD (hyperlipidemia) (6) Afib Qualifiers: Qualified Codes: I48.0 - Paroxysmal atrial fibrillation Assessment & Plan: RATE CONTROLLED IN SINUS RHYTHM AT THIS TIME. DISCUSSED WITH DR. DELA CRUZ - THE COLONOSCOPE WAS NEGATIVE FOR ACUTE SOURCE OF GI BLEEDING. DR. DELA CRUZ HAS RECOMMENDED PT TO BE DISCHARGED WITHOUT BLOOD THINNERS AT THIS TIME. THE PT AND FAMILY ARE AWARE OF INCREASED RISK OFF OF BLOOD THINNERS SHOULD SHE HAVE RECURRENT ATRIAL FIBRILLATION, BUT AT THIS TIME WITH PT IN SINUS RHYTHM AND HER ANEMIA, THE RISK OUTWEIGHS THE BENEFITS OF ELIQUIS ADMINISTRATION. (7) Obesity Qualifiers: (8) COPD (chronic obstructive pulmonary disease) (9) Anxiety Assessment & Plan: ON SEROQUEL Pending Labs Laboratory Tests 05/07/20 05:34: White Blood Count 13.8, Red Blood Count 3.27, Hemoglobin 9.4, Hematocrit 30, Mean Corpuscular Volume 92, Mean Corpuscular Hemoglobin 29, Mean Corpuscular Hemoglobin Concent 31, Red Cell Distribution Width 16.5, Platelet Count 263, Mean Platelet Volume 11.5, Sodium Level 134, Potassium Level 4.2, Chloride Level 103, Carbon Dioxide Level 20, Anion Gap 11, Blood Urea Nitrogen 9, Creatinine 0.91, Estimat Glomerular Filtration Rate 60, BUN/Creatinine Ratio 10, Glucose Level 88, Calcium Level 8.7 Discharge Instructions to patient/family Please see electronic discharge instructions given to patient. Discharge Medications Reviewed and agree with Discharge Medication list on patient's Discharge Instruction sheet Clinical Quality Measures DVT/VTE Risk/Contraindication: Risk Factor Score Per Nursin RFS Level Per Nursing on Admit: 4+=Very High LALA PULLIAM MD May 07, 2020 08:53
[2020-05-07] MEDS ORDERED: AMLO-251 PO (09:00)
[2020-05-07] MEDS ORDERED: FURO20TA4 PO (09:00)
[2020-05-07] MEDS ORDERED: HYDR-3922 PO (09:00)
[2020-05-07] MEDS ORDERED: POTA10TA36 PO (09:00)
[2020-05-07] MEDS: amLODIPine 10 MG (NORVASC) TAB PO SCH (09:48)
[2020-05-07] MEDS: MONTELUKAST 10 MG (SINGULAIR) TAB PO SCH (09:48)
[2020-05-07] MEDS: lisINopril 20 MG (PRINIVIL) TABLET PO SCH (09:48)
[2020-05-07] MEDS: RIVASTIGMINE 1.5 MG (EXELON) CAP PO SCH (09:49)
[2020-05-07] MEDS: QUEtiapine 100 MG (SEROquel) TAB IMMEDIATE RELEASE PO SCH (09:49)
[2020-05-07] MEDS: LORazepam 0.5 MG (ATIVAN) TABLET PO SCH (09:50)
[2020-05-07] MEDS: OXYBUTYNIN (DITROPAN) 5 MG TAB PO SCH (09:50)
[2020-05-07] MEDS: CARVEDILOL 3.125 MG (COREG) TABLET PO SCH (09:50)
[2020-05-07] MEDS: FLUTICASONE NASAL SPRAY (FLONASE) 16 GM BTL NS SCH (09:51)
[2020-05-07] MEDS: PANTOPRAZOLE 40 MG (PROTONIX) VIAL IV SCH (09:51)
[2020-05-07] MEDS: ADVAIR HFA 115/21 MCG INHALER 8 GM IH SCH (10:01)
--- NOTE | 2020-05-07 10:08 | Cardiology Progress Note ---
Subjective Date Seen by Provider: May 07, 2020 Time Seen by Provider: 10:06 Subjective/Events-last exam Patient is laying down in bed, feeling better today. I discussed the management plan with Dr. Holloway, it was reported to me that the patient and her daughter do not want to restart oral anticoagulation and they understand the increased risk of stroke Review of Systems General: No Chills, No Night Sweats, No Fatigue, No Malaise, No Appetite, No Other HEENT: No Head Aches, No Visual Changes, No Eye Pain, No Ear Pain, No Dysphasia, No Sinus Congestion, No Post Nasal Drip, No Sore Throat, No Other Pulmonary: No Dyspnea, No Cough, No Pleuritic Chest Pain, No Other Cardiovascular: No: Chest Pain, Palpitations, Orthopnea, Paroxysmal Noc. Dyspnea, Edema, Lt Headedness, Other Objective-Cardiology Exam Last Set of Vital Signs Vital Signs 05/06/20 05/07/20 05/07/20 11:00 00:06 10:01 Temp 36.7 Pulse 79 Resp 18 B/P (MAP) 119/60 (79) Pulse Ox 96 O2 Delivery Room Air O2 Flow Rate 5 Capillary Refill : Less Than 3 SecondsLess Than 3 Seconds I&O Intake and Output 05/07/20 00:00 Intake Total 1040 ml Balance 1040 ml Intake Oral 540 ml IV Total 500 ml # Voids 7 # Bowel Movements 7 General: Alert, Oriented X3, Cooperative HEENT: Atraumatic, PERRLA Neck: Supple, No JVD, No Thyromegaly Lungs: Clear to Auscultation, Normal Air Movement Heart: Regular Rate, Normal S1, Normal S2, No Murmurs Abdomen: Normal Bowel Sounds, Soft, No Tenderness, No Hepatosplenomegaly, No Masses Extremities: No Clubbing, No Cyanosis, No Edema, Normal Pulses, No Tenderness/Swelling Skin: No Rashes, No Breakdown, No Significant Lesion Neuro: Normal Gait, Normal Speech, Strength at 5/5 X4 Ext, Normal Tone, Sensation Intact Psych/Mental Status: Mental Status NL, Mood NL Results Lab Laboratory Tests 05/07/20 05:34 A/P-Cardiology Admission Diagnosis Acute anemia Paroxysmal atrial fibrillation Sinus node dysfunction Coronary artery disease Assessment/Plan Anemia, no source of blood loss was identified with upper and lower endoscopy done by Dr. Cabrera, possible capsule endoscopy as an outpatient. Continue to monitor H&H Increased risk of stroke without oral anticoagulation, patient and her daughter do not want to restart oral anticoagulation and then stent the increased risk of stroke History of paroxysmal atrial fibrillation, currently in sinus rhythm. Her EKG on admission showing sinus rhythm with artifact. 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 Pacemaker reprogramming was successful in July 2019. Has been followed and monitored by Dr. Louie Coronary artery disease, had a cardiac catheterization by Dr. Louie reported as sluggish coronary flow with no significant obstructive disease Congestive heart failure, history of left ventricular systolic dysfunction, last echo was reported improvement with ejection fraction 70 percent H/o alpha-1 antitrypsin-associated COPD, managed by Pulmonology No significant obstructive PAD of the legs on segmental pressure study of 07/04/19 History of hyperlipidemia, monitor lipids History of chronic kidney disease. Continue to monitor renal function Clinical Quality Measures DVT/VTE Risk/Contraindication: Risk Factor Score Per Nursin RFS Level Per Nursing on Admit: 4+=Very High GRISEL DELA CRUZ MD May 07, 2020 10:08 am
[2020-05-07] MEDS: LIDOCAINE 4% (SALONPAS) PATCH TOP SCH (10:14)
--- NOTE | 2020-05-07 11:47 | NUR ---
DISCHARGE PLANNING: noted patient to discharge today. Went to room to discuss with the patient the order for HHC. Patient had discharged to home already so called and spoke to daughter, Miriam. She declines HHC at this time. I explained she would need to call Dr. Kent and ask him for an order.
== END 2020-05-07 11:07 | disposition home or self-care (01) | DRG 811 ==
LOC: EDUNIT# 08:52 → ER 08:53 → 4TH 11:01 → OBSVTOIN 05-01 14:14
PROVIDERS: ADMIT Internal Medicine; ATTEND Family Medicine
PROC: 0DB68ZX Excision of Stomach, Via Natural or Artificial Opening Endoscopic, Diagnostic (ICD-10-PCS; 2020-05-02)
PROC: 0DB48ZX Excision of Esophagogastric Junction, Via Natural or Artificial Opening Endoscopic, Diagnostic (ICD-10-PCS; principal; 2020-05-02 13:53)
PROC: 0DJD8ZZ Inspection of Lower Intestinal Tract, Via Natural or Artificial Opening Endoscopic (ICD-10-PCS; 2020-05-06)
DX: D62 Acute posthemorrhagic anemia (principal); K21.01 Gastro-esophageal reflux disease with esophagitis, with bleeding; K29.71 Gastritis, unspecified, with bleeding; I13.0 Hypertensive heart and chronic kidney disease with heart failure and stage 1 through stage 4 chronic kidney disease, or unspecified chronic kidney disease; M54.6 Pain in thoracic spine; K21.00 Gastro-esophageal reflux disease with esophagitis, without bleeding; K22.2 Esophageal obstruction; K44.9 Diaphragmatic hernia without obstruction or gangrene; K29.70 Gastritis, unspecified, without bleeding; Z20.828 Contact with and (suspected) exposure to other viral communicable diseases; J44.9 Chronic obstructive pulmonary disease, unspecified; E66.9 Obesity, unspecified; I50.9 Heart failure, unspecified; F41.9 Anxiety disorder, unspecified; E78.00 Pure hypercholesterolemia, unspecified; E78.5 Hyperlipidemia, unspecified; K58.9 Irritable bowel syndrome, unspecified; M19.91 Primary osteoarthritis, unspecified site; F03.90 Unspecified dementia, unspecified severity, without behavioral disturbance, psychotic disturbance, mood disturbance, and anxiety; I48.0 Paroxysmal atrial fibrillation; N18.9 Chronic kidney disease, unspecified; I73.9 Peripheral vascular disease, unspecified; I49.5 Sick sinus syndrome; K64.1 Second degree hemorrhoids; D50.9 Iron deficiency anemia, unspecified; Z95.0 Presence of cardiac pacemaker; Z68.33 Body mass index [BMI] 33.0-33.9, adult; Z87.11 Personal history of peptic ulcer disease; Z86.711 Personal history of pulmonary embolism
CPT/HCPCS: 36415; 36430; 71045; 80048; 80053; 81000; 82728; 83540; 83735; 84484; 85007; 85014; 85018; 85025; 85027; 86141; 86850; 86900; 86901; 86920; 87081; 87635; 88305; 93005; 94640; 94760; G0378

== ENCOUNTER → 2020-06-28 | Outpatient (CLI) | payer MEDICARE, MEDICAID ==
[~2020-06-28] MED LIST changes: +AMLO-251 PO; +APIX5TAB PO; -CLIN300C11 PO; +CLIN300C12 PO; +FLUT1BLS IN; -FOLI1TAB24 PO; +FOLI1TAB33 PO; +FURO20TA4 PO; +GUAI400T86 PO; +HYDR-3922 PO; -MONT10TA26 PO; +MONT10TA97 PO; +POTA10TA36 PO; +PRAV20TA3 PO; +TRAM50TA3 PO; +UBID1CAP3 PO
[2020-06-28 15:25] LABS: BASOPHILS % (AUTO) 0 % (0-10); EOSINOPHILS # (AUTO) 0.4 10^3/uL (0.0-0.3); EOSINOPHILS % (AUTO) 4 % (0-10); HEMATOCRIT 40 % (35-52); HEMOGLOBIN 13.1 g/dL (11.5-16.0); LYMPHOCYTES # (AUTO) 2.2 X 10^3 (1.0-4.0); LYMPHOCYTES % (AUTO) 19 % (12-44); MEAN CORPUSCULAR HEMOGLOBIN 27 pg (25-34); MEAN CORPUSCULAR HGB CONC 33 g/dL (32-36); MEAN CORPUSCULAR VOLUME 82 fL (80-99); MEAN PLATELET VOLUME 9.1 fL (9.0-12.2); MONOCYTES # (AUTO) 0.8 X 10^3 (0.0-1.0); MONOCYTES % (AUTO) 7 % (0-12); NEUTROPHILS % (AUTO) 69 % (42-75); PLATELET COUNT 443 10^3/uL (130-400); WHITE BLOOD COUNT 11.6 10^3/uL (4.3-11.0)
[2020-06-28 15:45] LABS: ALBUMIN 4.3 GM/DL (3.2-4.5); BILIRUBIN,TOTAL 0.4 MG/DL (0.1-1.0); CALCIUM 9.9 MG/DL (8.5-10.1); CREATININE SERUM 1.28 MG/DL (0.60-1.30); POTASSIUM 4.4 MMOL/L (3.6-5.0); TOTAL PROTEIN 7.3 GM/DL (6.4-8.2)
== END ==
LOC: ONC 15:08
PROVIDERS: ATTEND Internal Medicine Hematology & Oncology
DX: D64.9 Anemia, unspecified (principal); D47.3 Essential (hemorrhagic) thrombocythemia; D72.829 Elevated white blood cell count, unspecified; E87.1 Hypo-osmolality and hyponatremia
CPT/HCPCS: 80053; 85025; 99213

== ENCOUNTER → 2020-10-29 | Outpatient (CLI) | payer MEDICARE, MEDICAID ==
[~2020-10-29] MED LIST changes: +CALC600T91 PO; -CLC600T PO; -LISI-552 PO; +LISI20TA26 PO; +MONT10TA32 PO; -MONT10TA97 PO
[2020-10-29 15:09] LABS: BASOPHILS # (AUTO) 0.1 10^3/uL (0.0-0.1); BASOPHILS % (AUTO) 1 % (0-10); EOSINOPHILS # (AUTO) 0.3 10^3/uL (0.0-0.3); EOSINOPHILS % (AUTO) 2 % (0-10); HEMATOCRIT 42 % (35-52); HEMOGLOBIN 13.9 g/dL (11.5-16.0); LYMPHOCYTES # (AUTO) 3.2 10^3/uL (1.0-4.0); LYMPHOCYTES % (AUTO) 15 % (12-44); MEAN CORPUSCULAR HEMOGLOBIN 30 pg (25-34); MEAN CORPUSCULAR HGB CONC 33 g/dL (32-36); MEAN CORPUSCULAR VOLUME 90 fL (80-99); MEAN PLATELET VOLUME 8.8 fL (9.0-12.2); MONOCYTES # (AUTO) 1.3 10^3/uL (0.0-1.0); MONOCYTES % (AUTO) 6 % (0-12); NEUTROPHILS # (AUTO) 15.9 10^3/uL (1.8-7.8); NEUTROPHILS % (AUTO) 75 % (42-75); PLATELET COUNT 441 10^3/uL (130-400); WHITE BLOOD COUNT 21.2 10^3/uL (4.3-11.0)
[2020-10-29 15:29] LABS: ALBUMIN 3.9 GM/DL (3.2-4.5); BILIRUBIN,TOTAL 0.4 MG/DL (0.1-1.0); CALCIUM 9.2 MG/DL (8.5-10.1); CREATININE SERUM 0.95 MG/DL (0.60-1.30)
== END | disposition home or self-care (01) ==
LOC: ONC 14:54
PROVIDERS: ATTEND Internal Medicine Hematology & Oncology
DX: D47.3 Essential (hemorrhagic) thrombocythemia (principal); D72.829 Elevated white blood cell count, unspecified; D64.9 Anemia, unspecified; J44.9 Chronic obstructive pulmonary disease, unspecified; E87.1 Hypo-osmolality and hyponatremia; I10 Essential (primary) hypertension; E78.00 Pure hypercholesterolemia, unspecified; F41.9 Anxiety disorder, unspecified
CPT/HCPCS: 80053; 85025; 99213

== ENCOUNTER → 2020-12-20 | Outpatient (CLI) | payer MEDICARE, MEDICAID ==
[~2020-12-20] MED LIST changes: -SULF1TAB35 PO; +SULF1TAB38 PO
[2020-12-20 14:59] LABS: BASOPHILS # (AUTO) 0.1 10^3/uL (0.0-0.1); BASOPHILS % (AUTO) 1 % (0-10); EOSINOPHILS # (AUTO) 0.5 10^3/uL (0.0-0.3); EOSINOPHILS % (AUTO) 4 % (0-10); HEMATOCRIT 43 % (35-52); HEMOGLOBIN 14.2 g/dL (11.5-16.0); LYMPHOCYTES # (AUTO) 2.3 10^3/uL (1.0-4.0); LYMPHOCYTES % (AUTO) 20 % (12-44); MEAN CORPUSCULAR HEMOGLOBIN 30 pg (25-34); MEAN CORPUSCULAR HGB CONC 33 g/dL (32-36); MEAN CORPUSCULAR VOLUME 92 fL (80-99); MEAN PLATELET VOLUME 8.8 fL (9.0-12.2); MONOCYTES # (AUTO) 0.9 10^3/uL (0.0-1.0); MONOCYTES % (AUTO) 8 % (0-12); NEUTROPHILS # (AUTO) 7.7 10^3/uL (1.8-7.8); NEUTROPHILS % (AUTO) 67 % (42-75); PLATELET COUNT 391 10^3/uL (130-400); WHITE BLOOD COUNT 11.5 10^3/uL (4.3-11.0)
[2020-12-20 15:18] LABS: ALANINE AMINOTRANSFERASE 14 U/L (0-55); ALBUMIN 4.1 GM/DL (3.2-4.5); ALKALINE PHOSPHATASE 66 U/L (40-136); BILIRUBIN,TOTAL 0.5 MG/DL (0.1-1.0); BUN/CREATININE RATIO 14; CALCIUM 9.7 MG/DL (8.5-10.1); CARBON DIOXIDE 26 MMOL/L (21-32); CHLORIDE 100 MMOL/L (98-107); CREATININE SERUM 0.88 MG/DL (0.60-1.30); GFR ESTIMATED > 60; GLUCOSE 105 MG/DL (70-105); SODIUM 133 MMOL/L (135-145); TOTAL PROTEIN 7.1 GM/DL (6.4-8.2)
== END ==
LOC: ONC 14:41
PROVIDERS: ATTEND Internal Medicine Hematology & Oncology
DX: D64.9 Anemia, unspecified (principal); D47.3 Essential (hemorrhagic) thrombocythemia; D72.829 Elevated white blood cell count, unspecified; E78.00 Pure hypercholesterolemia, unspecified; E66.9 Obesity, unspecified; I10 Essential (primary) hypertension; E78.2 Mixed hyperlipidemia
CPT/HCPCS: 80053; 85025; 99213

== ENCOUNTER → 2021-01-17 | Outpatient (CLI) | payer MEDICARE, MEDICAID ==
--- NOTE | 2021-01-17 12:31 | Diagnostic Imaging Report ---
Indication: Left shoulder injury with pain AP and lateral views of left humerus are obtained. There is mildly angulated subacute fracture at the junction of left humeral shaft and neck with mild bridging callus present. Remainder of the humerus is intact. There is narrowing of the glenohumeral joint space without dislocation. IMPRESSION: Mildly angulated subacute fracture in the proximal neck shaft junction of left humerus. Dictated by: Dictated on workstation # [id number]
--- NOTE | 2021-01-17 12:46 | Diagnostic Imaging Report ---
INDICATION: Left shoulder fracture, follow-up. TIME OF EXAM: 11:30 AM Comparison is made with prior radiograph from 09/25/2017. FINDINGS: There is a healing fracture of the proximal left humerus. Glenohumeral ligament is normal. There are degenerative changes at the glenohumeral joint. Acromioclavicular alignment is normal. Acromiohumeral space is normal. IMPRESSION: Healing or healed fracture of the proximal left humerus. If there is concern for an acute fracture, CT may be more useful to visualize a subtle new fracture line. Dictated by: Dictated on workstation # [id number]
== END ==
LOC: RAD 10:49
PROVIDERS: ATTEND Physician Assistant
DX: S42.92XD Fracture of left shoulder girdle, part unspecified, subsequent encounter for fracture with routine healing (principal); S42.212D Unspecified displaced fracture of surgical neck of left humerus, subsequent encounter for fracture with routine healing; X58.XXXD Exposure to other specified factors, subsequent encounter
CPT/HCPCS: 73030; 73060

== ENCOUNTER → 2021-02-14 | Outpatient (CLI) | payer MEDICARE, MEDICAID ==
--- NOTE | 2021-02-14 16:09 | Diagnostic Imaging Report ---
PROCEDURE: CT left upper extremity without contrast. TECHNIQUE: Multiple contiguous axial images were obtained through the left upper extremity without the use of intravenous contrast. Auto Exposure Controls were utilized during the CT exam to meet ALARA standards for radiation dose reduction. INDICATION: Left shoulder pain. FINDINGS: There are severe glenohumeral joint degenerative changes. There is significant joint space narrowing. There is sclerosis and subchondral cyst formation involving the glenoid and humeral head. There appears to be a healed fracture of the proximal humerus. No acute fracture lines are identified. There is spurring of the humeral head-neck junction. There are several well-corticated loose bodies along the inferior aspect of the glenoid anteriorly. There are also small loose bodies along the inferior aspect posteriorly. Acromioclavicular alignment is normal. 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 Several well-corticated loose bodies are present at the shoulder joint. No acute fracture is detected. Dictated by: Dictated on workstation # [id number]
== END ==
LOC: RAD 15:15
PROVIDERS: ATTEND Physician Assistant
DX: M19.012 Primary osteoarthritis, left shoulder (principal); Z87.81 Personal history of (healed) traumatic fracture
CPT/HCPCS: 73200

== ENCOUNTER 2021-04-01 13:50 | Emergency (ER) | payer MEDICARE, MEDICAID ==
--- NOTE | 2021-04-01 14:41 | ED Upper Extremity ---
General Chief Complaint: Trauma-Non Activation Stated Complaint: FALL/HEAD INJURY Nursing Triage Note: TO ED PER W/C PATIENT REPORTS THAT SHE GOT UP AT 3AM TODAY WENT TO TURN LITE ON AND LOST HER BALANCE. AND FELL ON L SIDE NO LOC.C/O PAIN IN L SHOULDER,BUT REPORTS HAS CHRONIC PAIN IN THAT SHOULDER. Source: patient Exam Limitations: no limitations History of Present Illness Date Seen by Provider: Apr 01, 2021 Time Seen by Provider: 14:33 Allergies and Home Medications Allergies Coded Allergies: Penicillins (Verified Allergy, Mild, 07/17/19) ketorolac (Verified Allergy, Mild, 07/17/19) morphine (Verified Allergy, Mild, 07/17/19) tetracycline (Verified Allergy, Mild, 07/17/19) paroxetine (Unverified Allergy, Unknown, 07/17/19) Patient Home Medication List Acetaminophen (Tylenol Extra Strength) 500 Mg Tablet, 1,000 MG PO Q8H PRN for PAIN-MILD (1-4), (Reported) Entered as Reported by: MARIELLA PALMA on 10/03/16 0753 Amlodipine Besylate (Amlodipine Besylate) 10 Mg Tablet, 10 MG PO DAILY Prescribed by: LALA PULLIAM on 05/07/20 0900 Calcium Carbonate/Vitamin D3 (Calcium 600 + Vit D 200 Tablet) 1 Each Tablet, 1 TAB PO BID, (Reported) Entered as Reported by: BEAU MELGAR on 07/13/17 1603 Carvedilol (Carvedilol) 3.125 Mg Tablet, 3.125 MG PO BID, (Reported) Entered as Reported by: TERESA NAGEL on 05/01/20 1336 Fluticasone Propionate (Fluticasone Propionate) 16 Gm [place].susp, 1 SPRAY NS BID, (Reported) Entered as Reported by: BEAU MELGAR on 07/13/17 1603 Fluticasone/Vilanterol (Breo Ellipta 200-25 Mcg INH) 1 Each Blst.w.dev, 1 PUFF IN DAILY, (Reported) Entered as Reported by: TERESA NAGEL on 05/01/20 1336 Furosemide (Furosemide) 20 Mg Tablet, 20 MG PO DAILY PRN for EDEMA Prescribed by: LALA PULLIAM on 05/07/20 0900 Guaifenesin (Guaifenesin) 400 Mg Tablet, 400 MG PO BID, (Reported) Entered as Reported by: TERESA NAGEL on 05/01/20 1336 Hydralazine HCl (Hydralazine HCl) 10 Mg Tablet, 10 MG PO TID PRN for SYSTOLIC BLOOD PRESSURE Prescribed by: LALA PULLIAM on 05/07/20 0900 Lisinopril (Lisinopril) 20 Mg Tablet, 20 MG PO BID, (Reported) Entered as Reported by: MARIELLA PALMA on 10/03/16 0753 Lorazepam (Ativan) 0.5 Mg Tablet, 0.5 MG PO BID, (Reported) Entered as Reported by: TERESA NAGEL on 05/01/20 133 Montelukast Sodium (Montelukast Sodium) 10 Mg Tablet, 10 MG PO DAILY, (Reported) Entered as Reported by: MARIELLA PALMA on 10/03/16 0753 Omeprazole (Omeprazole) 20 Mg Capsule.dr, 20 MG PO DAILY, (Reported) Entered as Reported by: TERESA NAGEL on 07/18/19 1004 Oxybutynin Chloride (Oxybutynin Chloride ER) 10 Mg Tab.er.24, 10 MG PO DAILY, ( Reported) Entered as Reported by: TERESA NAGEL on 07/18/19 1004 Potassium Chloride (Potassium Chloride) 10 Meq Tab.er.prt, 10 MEQ PO DAILY Prescribed by: LALA PULLIAM on 05/07/20 0900 Pravastatin Sodium (Pravastatin Sodium) 20 Mg Tablet, 40 MG PO HS, (Reported) Entered as Reported by: TERESA NAGEL on 05/01/20 133 Quetiapine Fumarate (Quetiapine Fumarate) 100 Mg Tablet, 100 MG PO DAILY, (Reported) Entered as Reported by: TERESA NAGEL on 05/01/20 133 Quetiapine Fumarate (Quetiapine Fumarate) 100 Mg Tablet, 50 MG PO HS, (Reported) Entered as Reported by: TERESA NAGEL on 05/01/20 133 Rivastigmine Tartrate (Rivastigmine) 1.5 Mg Capsule, 1.5 MG PO BID, (Reported) Entered as Reported by: KAYLEN JAMIL on 09/02/18 1106 Tramadol HCl (Tramadol HCl) 50 Mg Tablet, 50 MG PO 1600, (Reported) Entered as Reported by: TERESA NAGEL on 05/01/20 1336 Ubidecarenone/Vitamin E (Co Q-10 50 mg Softgel) 1 Each Capsule, 1 EACH PO 1200, (Reported) Entered as Reported by: TERESA NAGEL on 05/01/20 1336 Past Uvxcwpo-Ohqpxf-Eqoyvv Hx Patient Social History Tobacco Use?: No Use of E-Cig and/or Vaping dev: No Substance use?: No Alcohol Use?: No Immunizations Up To Date Tetanus Booster (TDap): Unknown PED Vaccines UTD: Yes First/Initial COVID19 Vaccinat: JUN Second COVID19 Vaccination Timmy: JUL Seasonal Allergies Seasonal Allergies: No Past Medical History Surgeries: Yes Abdominal, Appendectomy, Eye Surgery, Gallbladder, 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, Joint Replacement, Orthopedic, Pacemaker Respiratory: Yes Asthma, Pulmonary Embolism, COPD Currently Using CPAP: No Currently Using BIPAP: No Cardiac: Yes (Congestive heart failure with EF of 35 percent) High Cholesterol, Hypertension Neurological: Yes Dementia 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 Disorders: No Female 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 Disorders: Denies, Endometriosis 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: 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, Menopausal Sexually Transmitted Disease: No HIV/AIDS: No Genitourinary: No Gastrointestinal: Yes (BLEEDING ULCER X 3; PERFORATED ULCER 2005; 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) Gastrointestinal Bleed, Chronic Diarrhea, Polyps, Ulcer, Irritable Bowel Musculoskeletal: Yes Degenerate Disk Disease, Arthritis, Chronic Back Pain, Fractures Endocrine: No HEENT: No Cataract Loss of Vision: Denies Hearing Impairment: Hard of Hearing Cancer: No Psychosocial: Yes Anxiety Integumentary: No Blood Disorders: Yes (BILATERAL P.E.'S 04/2018) Adverse Reaction/Blood Tranf: No Family Medical History Blood clots (sister had a blood clot in the brain which caused her  in 2010) Physical Exam Vital Signs Capillary Refill : Height, Weight, BMI Height: 5'3.00" Weight: 150lbs. 0.0oz. [id number]; 33.36 BMI Method:Stated Progress/Results/Core Measures Results/Orders My Orders Orders - JESSIE VALDES APRN Ct Head/Cervical Spine Wo (04/01/21 14:40) Ribs, Left 2-3 Views (04/01/21 14:40) Shoulder, Left, 3 Views (04/01/21 14:40) Departure Impression Primary Impression: Fall on same level Additional Impression: Shoulder pain Disposition: HOME, SELF-CARE Condition: Improved Departure-Patient Inst. Decision time for Depature: 15:50 Referrals: BRAD HDEZ MD (PCP/Family) Primary Care Physician Patient Instructions: Shoulder Pain ED Add. Discharge Instructions: Plan: 1. Follow up with your doctor if your symptoms persist. 2. May take Tylenol or Ibuprofen as needed for pain per package. 3. Return for any new, concerning, or worsening symptoms. All discharge instructions reviewed with patient and/or family. Voiced understanding. JESSIE VALDES ADMINISTRATIVE SALES ASSISTANT Apr 01, 2021 14:41
--- NOTE | 2021-04-01 15:24 | Diagnostic Imaging Report ---
INDICATION: Fall with trauma to the rib cage. Now with chest wall pain. COMPARISON: None FINDINGS: Three views of the left ribs were obtained. There is no fracture, dislocation, or other acute bony abnormality identified. Old healed fracture of the proximal left humerus is present. Visualized portions of the left lung are clear. Left-sided dual-lead pacemaker is noted The surrounding soft tissues appear unremarkable. No radiopaque foreign bodies are seen. IMPRESSION: No healing or displaced left-sided rib fractures. Dictated by: Dictated on workstation # [id number]
--- NOTE | 2021-04-01 15:26 | Diagnostic Imaging Report ---
INDICATION: Fall with trauma to the left chest wall and shoulder. Now with shoulder pain. COMPARISON: 01/17/2021. FINDINGS: Three radiographic views of the left shoulder were obtained. Again identified is chronic nonacute fracture deformity of the proximal left humerus. Degenerative changes are present at the glenohumeral joint space, but the joint space is maintained. AC joint is appropriate as well. No other acute osseous abnormality is seen. Included portion of the left hemithorax are clear. IMPRESSION: 1. Redemonstration of nonacute fracture deformity of the proximal left humerus. 2. No new acute fracture or dislocation of the left shoulder. Dictated by: Dictated on workstation # [id number]
--- NOTE | 2021-04-01 15:30 | Diagnostic Imaging Report ---
INDICATION: Fall with injury to head and neck pain. TECHNIQUE: Multiple contiguous axial images were obtained through the brain and cervical spine without the use of intravenous contrast. Sagittal and coronal reformations through the cervical spine were then performed. Auto Exposure Controls were utilized during the CT exam to meet ALARA standards for radiation dose reduction. COMPARISON: CT head is compared to 10/14/2018. CT HEAD FINDINGS: There are mild diffuse atrophic changes. There are no extra-axial fluid collections. No intracranial hemorrhage. No intracranial mass or mass effect. No midline shift. The ventricles are normal in size and position. There are no acute parenchymal abnormalities in the brain. Vascular calcifications are noted. Calvarial windows are unremarkable. CT CERVICAL SPINE FINDINGS: There was no evidence of cervical spine fracture. There is no subluxation or malalignment. There is diffuse degenerative change throughout the facets as well as disc spaces. There is no acute appearing abnormality. IMPRESSION: CT brain shows atrophic changes with no acute intracranial abnormality or calvarial fracture. CT cervical spine demonstrates diffuse degenerative changes without fracture or subluxation. Dictated by: Dictated on workstation # [id number]
[2021-04-01 16:20] VITALS: BP 109/86
== END 2021-04-01 16:20 | disposition home or self-care (01) ==
LOC: EDUNIT# 13:50 → ER 13:55
DX: G89.29 Other chronic pain (principal); M25.512 Pain in left shoulder; J44.9 Chronic obstructive pulmonary disease, unspecified; I11.0 Hypertensive heart disease with heart failure; I50.9 Heart failure, unspecified; F03.90 Unspecified dementia, unspecified severity, without behavioral disturbance, psychotic disturbance, mood disturbance, and anxiety; F41.9 Anxiety disorder, unspecified; E78.00 Pure hypercholesterolemia, unspecified; Z79.899 Other long term (current) drug therapy
CPT/HCPCS: 70450; 71100; 72125; 73030; 99282

== ENCOUNTER 2021-07-06 01:38 | Inpatient (IN) | payer MEDICARE, MEDICAID ==
[~2021-07-06] VITALS: Ht 64 cm; Wt 96.7 kg
[2021-07-06] VITALS (7 sets, daily range): BP systolic 144–153; BP diastolic 74–91
[~2021-07-06 01:38] MED LIST changes: -CITA10TA7 PO; +CITA10TA9 PO; +CLIN-144 PO; -CLIN300C12 PO; +MONT-40 PO; -MONT10TA32 PO; -POTA10TA36 PO; +POTA10TA37 PO; +RIVA1.5C30 PO; -[UNRECOGNIZED DRUG - CODE] PO
--- NOTE | 2021-07-06 01:58 | ED Respiratory ---
General Chief Complaint: Respiratory Problems Stated Complaint: LOW O2 Source: patient, family, EMS Exam Limitations: clinical condition (Delirium and hard of hearing) History of Present Illness Date Seen by Provider: Jul 06, 2021 Time Seen by Provider: 01:43 Initial Comments Patient to the ER by EMS from home where she lives with her 2 daughters and chief complaint of confusion and shortness of air. Family remarks that her oxygen saturations were as low as 84% and had a 99 degree temperature yesterday. They did at home test for COVID-19 which was positive yesterday. Her symptoms started yesterday. She then had a telehealth visit where they started her on prednisone. The patient had prednisone before and done fine with it. She has no history of lung disease. She is not having any pain nausea fevers or chills now. EMS remarks the lowest they saw her oxygen saturations were 90% on room air. Patient denies any history of lung disease but has a pacemaker. She is otherwise a poor historian. She received breathing treatments from EMS on route. On 2 L by nasal cannula per EMS she came up to the mid 90s. Patient has a history of paroxysmal atrial fibrillation no longer on anticoagulants due to her risk of falls. History of anemia, hypertension, sinus node dysfunction and pacemaker. Followed by Dr. Louie outpatient. Coronary artery disease with recent cardiac catheterization reported as sluggish coronary flow with no significant obstructive disease. Congestive heart failure with an EF of 70% and a left ventricular systolic dysfunction. History of alpha-1 antitrypsin associated COPD. History of peripheral arterial disease, hyperlipidemia and chronic kidney disease. Allergies and Home Medications Allergies Coded Allergies: Penicillins (Verified Allergy, Mild, 07/17/19) ketorolac (Verified Allergy, Mild, 07/17/19) morphine (Verified Allergy, Mild, 07/17/19) tetracycline (Verified Allergy, Mild, 07/17/19) paroxetine (Unverified Allergy, Unknown, 07/17/19) Patient Home Medication List Home Medication List Reviewed: Yes Acetaminophen (Tylenol Extra Strength) 500 Mg Tablet, 1,000 MG PO Q8H PRN for PAIN-MILD (1-4), (Reported) Entered as Reported by: MARIELLA PALMA on 10/03/16 0751 Last Action: Reviewed Amlodipine Besylate (Amlodipine Besylate) 5 Mg Tablet, 5 MG PO DAILY, (Reported) Entered as Reported by: DENNY HANLEY on 07/06/21501 Last Action: Reviewed Benzonatate (Benzonatate) 100 Mg Capsule, 100 MG PO PRN, (Reported) Entered as Reported by: DENNY HANLEY on 07/06/21501 Last Action: Reviewed Calcium Carbonate/Vitamin D3 (Calcium 600 + Vit D 200 Tablet) 1 Each Tablet, 1 TAB PO BID, (Reported) Entered as Reported by: BEAU MELGAR on 07/13/17 160 Last Action: Reviewed Carvedilol (Carvedilol) 3.125 Mg Tablet, 3.125 MG PO BID, (Reported) Entered as Reported by: TERESA NAGEL on 05/01/201335 Last Action: Reviewed Ferrous Sulfate (Ferosul) 325 Mg Tablet, 325 MG PO, (Reported) Entered as Reported by: DENNY HANLEY on 07/06/21501 Last Action: Reviewed Fexofenadine/Pseudoephedrine (Fexofenadine-Pse ER 180-240 Tb) 1 Each Tab.er.24h, 1 EACH PO DAILY, (Reported) Entered as Reported by: DENNY HANLEY on 07/06/21501 Last Action: Reviewed Fluticasone Propionate (Fluticasone Propionate) 16 Gm [place].susp, 1 SPRAY NS BID, (Reported) Entered as Reported by: BEAU MELGAR on 07/13/171602 Last Action: Reviewed Furosemide (Furosemide) 20 Mg Tablet, 20 MG PO DAILY PRN for EDEMA Prescribed by: LALA PULLIAM on 05/07/20 0900 Last Action: Reviewed Lorazepam (Ativan) 0.5 Mg Tablet, 0.5 MG PO BID, (Reported) Entered as Reported by: TERESA NAGEL on 05/01/201335 Last Action: Reviewed Mirtazapine (Mirtazapine) 15 Mg Tablet, 15 MG PO BID, (Reported) Entered as Reported by: DENNY HANLEY on 07/06/21501 Last Action: New Order Montelukast Sodium (Montelukast Sodium) 10 Mg Tablet, 10 MG PO DAILY, (Reported) Entered as Reported by: MARIELLA PALMA on 10/03/16 4583 Last Action: Reviewed Omeprazole (Omeprazole) 20 Mg Capsule.dr, 20 MG PO DAILY, (Reported) Entered as Reported by: TERESA NAGEL on 07/18/191003 Last Action: Reviewed Oxybutynin Chloride (Oxybutynin Chloride ER) 10 Mg Tab.er.24, 10 MG PO DAILY, (Reported) Entered as Reported by: TERESA NAGEL on 07/18/19 100 Last Action: Reviewed Pantoprazole Sodium (Pantoprazole Sodium) 40 Mg Tablet.dr, 40 MG PO DAILY, (Reported) Entered as Reported by: DENNY HANLEY on 07/06/21 050 Last Action: New Order Potassium Chloride (Potassium Chloride) 10 Meq Tab.er.prt, 10 MEQ PO DAILY Prescribed by: LALA PULLIAM on 05/07/20 0900 Last Action: Reviewed Pravastatin Sodium (Pravastatin Sodium) 20 Mg Tablet, 40 MG PO HS, (Reported) Entered as Reported by: TERESA NAGEL on 05/01/201335 Last Action: Reviewed Quetiapine Fumarate (Quetiapine Fumarate) 100 Mg Tablet, 100 MG PO DAILY, (Re ported) Entered as Reported by: TERESA NAGEL on 05/01/201335 Last Action: Reviewed Quetiapine Fumarate (Quetiapine Fumarate) 100 Mg Tablet, 50 MG PO HS, (Reported) Entered as Reported by: TERESA NAGEL on 05/01/201335 Last Action: Reviewed Rivastigmine Tartrate (Rivastigmine) 1.5 Mg Capsule, 1.5 MG PO BID, (Reported) Entered as Reported by: KAYLEN JAMIL on 09/02/18 1106 Last Action: Reviewed Tramadol HCl (Tramadol HCl) 50 Mg Tablet, 50 MG PO BID, (Reported) Entered as Reported by: DENNY HANLEY on 07/06/21 0502 Last Action: New Order Discontinued Medications Amlodipine Besylate (Amlodipine Besylate) 10 Mg Tablet, 10 MG PO DAILY Discontinued Reason: No Longer Taking Prescribed by: LALA PULLIAM on 05/07/20 0900 Last Action: Discontinued Fluticasone/Vilanterol (Breo Ellipta 200-25 Mcg INH) 1 Each Blst.w.dev, 1 PUFF IN DAILY, (Reported) Discontinued Reason: Duplicate Order Entered as Reported by: TERESA NAGEL on 05/01/201335 Last Action: Discontinued Guaifenesin (Guaifenesin) 400 Mg Tablet, 400 MG PO BID, (Reported) Discontinued Reason: No Longer Taking Entered as Reported by: TERESA NAGEL on 05/01/201335 Last Action: Discontinued Hydralazine HCl (Hydralazine HCl) 10 Mg Tablet, 10 MG PO TID PRN for SYSTOLIC BLOOD PRESSURE Discontinued Reason: No Longer Taking Prescribed by: LALA PULLIAM on 05/07/20 0900 Last Action: Discontinued Lisinopril (Lisinopril) 20 Mg Tablet, 20 MG PO BID, (Reported) Discontinued Reason: No Longer Taking Entered as Reported by: MARIELLA PALMA on 10/03/16 0753 Last Action: Discontinued Tramadol HCl (Tramadol HCl) 50 Mg Tablet, 50 MG PO 1600, (Reported) Discontinued Reason: New Order Entered as Reported by: TERESA NAGEL on 05/01/201335 Last Action: Discontinued Ubidecarenone/Vitamin E (Co Q-10 50 mg Softgel) 1 Each Capsule, 1 EACH PO 1200, (Reported) Discontinued Reason: No Longer Taking Entered as Reported by: TERESA NAGEL on 05/01/201335 Last Action: Discontinued Review of Systems Review of Systems Constitutional: No chills, No diaphoresis EENTM: hearing loss; No ear discharge, No ear pain Respiratory: No cough; short of breath, wheezing Cardiovascular: No chest pain, No edema; Hx of Intervention; No palpitations Gastrointestinal: No abdominal pain, No constipation, No diarrhea, No nausea, No vomiting Genitourinary: No discharge, No dysuria Musculoskeletal: No back pain, No joint pain All Other Systems Reviewed Negative Unless Noted: Yes Past Bapkzqd-Stjwqt-Gxxpeu Hx Patient Social History Tobacco Use?: No Use of E-Cig and/or Vaping dev: No Substance use?: No Immunizations Up To Date Tetanus Booster (TDap): Unknown PED Vaccines UTD: Yes First/Initial COVID19 Vaccinat: JUN Second COVID19 Vaccination Timmy: JUL Seasonal Allergies Seasonal Allergies: No Past Medical History Surgeries: Yes Abdominal, Appendectomy, Eye Surgery, Gallbladder, 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, Joint Replacement, Orthopedic, Pacemaker Respiratory: Yes Asthma, Pulmonary Embolism, COPD Currently Using CPAP: No Currently Using BIPAP: No Cardiac: Yes (Congestive heart failure with EF of 35 percent) High Cholesterol, Hypertension Neurological: Yes Dementia 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 Disorders: No Female 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 Disorders: Denies, Endometriosis [employer] History: 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, Menopausal Sexually Transmitted Disease: No HIV/AIDS: No Genitourinary: No Gastrointestinal: Yes (BLEEDING ULCER X 3; PERFORATED ULCER 2006; 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) Gastrointestinal Bleed, Chronic Diarrhea, Polyps, Ulcer, Irritable Bowel Musculoskeletal: Yes Degenerate Disk Disease, Arthritis, Chronic Back Pain, Fractures Endocrine: No HEENT: No Cataract Loss of Vision: Denies Hearing Impairment: Hard of Hearing Cancer: No Psychosocial: Yes Anxiety Integumentary: No Blood Disorders: Yes (BILATERAL P.E.'S 04/2018) Adverse Reaction/Blood Tranf: No Family Medical History Blood clots (sister had a blood clot in the brain which caused her  in 2010) Physical Exam Vital Signs - First Documented Capillary Refill : Height: 5'3.00" Weight: 150lbs. 0.0oz. 68.527046yk; 33.36 BMI Method:Stated General Appearance: WD/WN, mild distress Eyes: Bilateral Eye Normal Inspection, Bilateral Eye PERRL, Bilateral Eye EOMI HEENT: PERRL/EOMI, normal ENT inspection, pharynx normal Neck: full range of motion, supple, normal inspection Respiratory: chest non-tender, lungs clear, respiratory distress (Mild to moderate with oxygen saturations 90 to 91% and respiratory rate of 22-24.), decreased breath sounds Cardiovascular: normal peripheral pulses, regular rate, rhythm Gastrointestinal: normal bowel sounds, non tender, soft Extremities: non-tender, normal inspection, normal capillary refill Neurologic/Psychiatric: no motor/sensory deficits, alert, normal mood/affect, other (Oriented to person and place but not time or situation) Skin: normal color, warm/dry Progress/Results/Core Measures Suspected Sepsis SIRS Temperature: Pulse: Respiratory Rate: Laboratory Tests 07/06/21 02:00: White Blood Count 11.2H Blood Pressure / Mean: Laboratory Tests 07/06/21 02:00: Creatinine 0.91, Platelet Count 352, Total Bilirubin 0.5 Results/Orders Lab Results Laboratory Tests Test 07/06/21 01:45 07/06/21 02:00 Range/Units Influenza Type A Antigen NEGATIVE NEGATIVE Influenza Type B Antigen NEGATIVE NEGATIVE White Blood Count 11.2 H 4.3-11.0 10^3/uL Red Blood Count 4.46 3.80-5.11 10^6/uL Hemoglobin 13.9 11.5-16.0 g/dL Hematocrit 40 35-52 % Mean Corpuscular Volume 89 80-99 fL Mean Corpuscular Hemoglobin 31 25-34 pg Mean Corpuscular Hemoglobin Concent 35 32-36 g/dL Red Cell Distribution Width 12.9 10.0-14.5 % Platelet Count 352 130-400 10^3/uL Mean Platelet Volume 9.1 9.0-12.2 fL Immature Granulocyte % (Auto) 2 % Neutrophils (%) (Auto) 84 H 42-75 % Lymphocytes (%) (Auto) 10 L 12-44 % Monocytes (%) (Auto) 4 0-12 % Eosinophils (%) (Auto) 1 0-10 % Basophils (%) (Auto) 0 0-10 % Neutrophils # (Auto) 9.4 H 1.8-7.8 10^3/uL Lymphocytes # (Auto) 1.1 1.0-4.0 10^3/uL Monocytes # (Auto) 0.4 0.0-1.0 10^3/uL Eosinophils # (Auto) 0.1 0.0-0.3 10^3/uL Basophils # (Auto) 0.1 0.0-0.1 10^3/uL Immature Granulocyte # (Auto) 0.2 H 0.0-0.1 10^3/uL Blood Gas Puncture Site R RAD Blood Gas Patient Temperature 36.1 Arterial Blood pH 7.42 7.37-7.43 Arterial Blood Partial Pressure CO2 39 35-45 MMHG Arterial Blood Partial Pressure O2 60 L 79-93 MMHG Arterial Blood HCO3 25 23-27 MMOL/L Arterial Blood Total CO2 26.3 21.0-31.0 MMOL/L Arterial Blood Oxygen Saturation 90 L 94-100 % Arterial Blood Base Excess 0.9 -2.5-2.5 MMOL/L Kushal Test YES-POS Blood Gas Ventilator Setting NO Blood Gas Inspired Oxygen ROOM AIR Sodium Level 119 *L 135-145 MMOL/L Potassium Level 3.9 3.6-5.0 MMOL/L Chloride Level 86 L 98-107 MMOL/L Carbon Dioxide Level 19 L 21-32 MMOL/L Anion Gap 14 5-14 MMOL/L Blood Urea Nitrogen 12 7-18 MG/DL Creatinine 0.91 0.60-1.30 MG/DL Estimat Glomerular Filtration Rate 64 BUN/Creatinine Ratio 13 Glucose Level 155 H 70-105 MG/DL Calcium Level 9.3 8.5-10.1 MG/DL Corrected Calcium 9.3 8.5-10.1 MG/DL Total Bilirubin 0.5 0.1-1.0 MG/DL Aspartate Amino Transf (AST/SGOT) 32 5-34 U/L Alanine Aminotransferase (ALT/SGPT) 18 0-55 U/L Alkaline Phosphatase 62 40-136 U/L C-Reactive Protein High Sensitivity 3.27 H 0.00-0.50 MG/DL Total Protein 7.3 6.4-8.2 GM/DL Albumin 4.0 3.2-4.5 GM/DL My Orders Orders - MELANIA WINSLOW Arterial Blood Gas (07/06/21 01:49) Cbc With Automated Diff (07/06/21 01:49) Comprehensive Metabolic Panel (07/06/21 01:49) Hs C Reactive Protein (07/06/21 01:49) Covid-19 External Lab Results (07/06/21 01:49) Influenza A & B Antigens (07/06/21 01:49) Isolation Central Supply Req (07/06/21 01:49) Chest 1 View, Ap/Pa Only (07/06/21 01:49) Ed Iv/Invasive Line Start (07/06/21 01:49) Ns Iv 500 Ml (Sodium Chloride 0.9%) (07/06/21 02:00) Dexamethasone Injection (Decadron Injec (07/06/21 02:00) Ua Culture If Indicated (07/06/21 02:19) Medications Given in ED Current Medications Medications Dose Ordered Sig/Lee Route Start Time Stop Time Status Last Admin Dose Admin Dexamethasone Sodium Phosphate 6 mg ONCE ONCE IV 07/06/21 02:00 07/06/21 02:01 DC 07/06/21 02:10 6 MG Sodium Chloride 500 ml @ 0 mls/hr Q0M ONCE IV 07/06/21 02:00 07/06/21 02:01 DC 07/06/21 02:10 1,000 MLS/HR Vital Signs/I&O 07/06/21 07/06/21 01:38 01:38 Temp 36.0 Pulse 73 Resp 24 B/P (MAP) 148/91 (110) Pulse Ox 90 O2 Delivery Room Air Room Air Capillary Refill : Progress Note #1: Time: 01:57 Progress Note With her history of alpha-1 antitrypsin lung disease, coronary disease, COVID-19 and shortness of air were going to obtain an ABG, labs, chest x-ray and influenza swab. She would likely benefit from an overnight stay for monitoring given her history and need for 3 asum-xr-cvud DuoNeb's according to EMS. We will give her some Decadron. Progress Note #2: Time: 02:53 Progress Note Discussed the case with the daughter, Solange Marshall. Updated her of the patient's need for admission and she agrees. She has had CODE STATUS conversations in the past and the patient is a full code. She is okay if the patient needs to be intubated. Questions were answered. She agrees with admission. Diagnostic Imaging Diagonstic Imaging: Xray Plain Films/CT/US/NM/MRI: chest Comments Potential small infiltrate on the right lower lobe medially seen otherwise unre markable chest x-ray. [facility] [place] [place] NAME: IALEEN DUMONT [facility] REC#: [id number] PT STATUS: ADM IN : 1940 PHYSICIAN: MELANIA WINSLOW MD ADMIT DATE: 07/06/21 Draft Date of Exam:07/06/21 CHEST 1 VIEW, AP/PA ONLY EXAMINATION: Chest radiograph, portable AP view. DATE: 07/06/2021 2:43 AM INDICATION: 81-year-old female, shortness of breath. Covid positive. COMPARISON: Chest radiograph May 05, 2020. FINDINGS: There is a left-sided cardiac assist device with leads. The leads appear intact. Heart size and mediastinal contours are unchanged. There is no identified pneumothorax. There is no large pleural effusion. There are streaky opacities in the right medial lung base. There is a redemonstrated chronic fracture deformity of the left proximal humerus. These are right shoulder prosthesis. IMPRESSION: 1. Streaky opacities in the right medial lung base which may relate to atelectasis and/or infiltrate. Dictated on workstation # [id number] Dict: 07/06/21 0557 Trans: 07/06/21 0603 ENRIQUE [id number] Interpreted by: ZEINAB MORENO MD Electronically signed by: Reviewed: Reviewed by Me Departure Communication (Admissions) Time/Spoke to Admitting Phy: 02:45 Discussed the case with Dr. Ortiz and he agrees to admit the patient for hyponatremia, oxygen dependent acute on chronic respiratory failure with hypoxemia, COVID-19. Impression Primary Impression: Hyponatremia Additional Impressions: COVID-19 Acute on chronic respiratory failure with hypoxemia Delirium Disposition: ADMITTED INPATIENT Condition: Stable Admissions Decision to Admit Reason: Admit from ER (General) Decision to Admit/Date: Jul 06, 2021 Time/Decision to Admit Time: 02:43 Departure-Patient Inst. Referrals: BRAD HDEZ MD (PCP/Family) Primary Care Physician MELANIA WINSLOW Jul 06, 2021 01:58
[2021-07-06] MEDS ORDERED: NS IV 500 ML 500 ML IV ONE (02:00)
[2021-07-06 02:09] LABS: ABG BASE EXCESS 0.9 MMOL/L (-2.5-2.5); ABG OXYGEN SATURATION 90 % (94-100); ABG PCO2 39 MMHG (35-45); ABG PH 7.42 (7.37-7.43); ABG PO2 60 MMHG (79-93); ABG TCO2 26.3 MMOL/L (21.0-31.0)
[2021-07-06 02:11] LABS: ALLENS TEST YES-POS; INSPIRED O2 ROOM AIR; PATIENT TEMP 36.1; VENTILATOR NO
[2021-07-06 02:12] LABS: BASOPHILS # (AUTO) 0.1 10^3/uL (0.0-0.1); BASOPHILS % (AUTO) 0 % (0-10); EOSINOPHILS # (AUTO) 0.1 10^3/uL (0.0-0.3); EOSINOPHILS % (AUTO) 1 % (0-10); HEMATOCRIT 40 % (35-52); HEMOGLOBIN 13.9 g/dL (11.5-16.0); LYMPHOCYTES # (AUTO) 1.1 10^3/uL (1.0-4.0); LYMPHOCYTES % (AUTO) 10 % (12-44); MEAN CORPUSCULAR HEMOGLOBIN 31 pg (25-34); MEAN CORPUSCULAR HGB CONC 35 g/dL (32-36); MEAN CORPUSCULAR VOLUME 89 fL (80-99); MEAN PLATELET VOLUME 9.1 fL (9.0-12.2); MONOCYTES # (AUTO) 0.4 10^3/uL (0.0-1.0); MONOCYTES % (AUTO) 4 % (0-12); NEUTROPHILS # (AUTO) 9.4 10^3/uL (1.8-7.8); NEUTROPHILS % (AUTO) 84 % (42-75); PLATELET COUNT 352 10^3/uL (130-400); WHITE BLOOD COUNT 11.2 10^3/uL (4.3-11.0)
[2021-07-06 02:28] LABS: POTASSIUM 3.9 MMOL/L (3.6-5.0)
[2021-07-06 02:29] LABS: CALCIUM 9.3 MG/DL (8.5-10.1)
[2021-07-06 02:31] LABS: TOTAL PROTEIN 7.3 GM/DL (6.4-8.2)
[2021-07-06 02:32] LABS: BILIRUBIN,TOTAL 0.5 MG/DL (0.1-1.0)
[2021-07-06 02:34] LABS: CREATININE SERUM 0.91 MG/DL (0.60-1.30)
[2021-07-06] MEDS ORDERED: NS IV 1000 ML 1,000 ML ONE (03:54)
[2021-07-06] MEDS ORDERED: MIRT-68 PO (05:02)
[2021-07-06] MEDS ORDERED: FERR325T24 PO (05:02)
[2021-07-06] MEDS ORDERED: BENZ-36 PO (05:02)
[2021-07-06] MEDS ORDERED: FEXO1TAB97 PO (05:02)
[2021-07-06] MEDS ORDERED: PANT40TA52 PO (05:02)
[2021-07-06] MEDS ORDERED: TRAM50TA3 PO (05:02)
[2021-07-06] MEDS ORDERED: AMLO-250 PO (05:02)
[2021-07-06 06:01] LABS: BASOPHILS % (AUTO) 0 % (0-10); EOSINOPHILS % (AUTO) 0 % (0-10); HEMATOCRIT 41 % (35-52); LYMPHOCYTES # (AUTO) 0.8 10^3/uL (1.0-4.0); LYMPHOCYTES % (AUTO) 9 % (12-44); MEAN CORPUSCULAR HEMOGLOBIN 31 pg (25-34); MEAN CORPUSCULAR HGB CONC 34 g/dL (32-36); MEAN CORPUSCULAR VOLUME 90 fL (80-99); MONOCYTES # (AUTO) 0.1 10^3/uL (0.0-1.0); MONOCYTES % (AUTO) 1 % (0-12); NEUTROPHILS # (AUTO) 8.1 10^3/uL (1.8-7.8); NEUTROPHILS % (AUTO) 89 % (42-75); PLATELET COUNT 324 10^3/uL (130-400); WHITE BLOOD COUNT 9.1 10^3/uL (4.3-11.0)
--- NOTE | 2021-07-06 06:04 | Diagnostic Imaging Report ---
EXAMINATION: Chest radiograph, portable AP view. DATE: 07/06/2021 2:43 AM INDICATION: 81-year-old female, shortness of breath. Covid positive. COMPARISON: Chest radiograph May 05, 2020. FINDINGS: There is a left-sided cardiac assist device with leads. The leads appear intact. Heart size and mediastinal contours are unchanged. There is no identified pneumothorax. There is no large pleural effusion. There are streaky opacities in the right medial lung base. There is a redemonstrated chronic fracture deformity of the left proximal humerus. These are right shoulder prosthesis. IMPRESSION: 1. Streaky opacities in the right medial lung base which may relate to atelectasis and/or infiltrate. Dictated by: Dictated on workstation # [id number]
[2021-07-06 06:23] LABS: CALCIUM 9.1 MG/DL (8.5-10.1); CREATININE SERUM 0.78 MG/DL (0.60-1.30); POTASSIUM 3.8 MMOL/L (3.6-5.0)
[2021-07-06] MEDS ORDERED: ONDANSETRON 4 MG/2 ML (SDV) Z0FRAN IV PRN (07:15)
[2021-07-06] MEDS ORDERED: NS IV 1000 ML 1,000 ML IV SCH (07:15)
[2021-07-06] MEDS ORDERED: ACETAMINOPHEN 325 MG TABLET PO PRN (07:15)
[2021-07-06 07:16] LABS: BAND NEUTROPHILS 2 %; LYMPHOCYTES % (MANUAL) 7 %; MONOCYTES % (MANUAL) 2 %; MYELOCYTES % 1 %; NEUTROPHILS % (MANUAL) 88 %; RBC MORPH NORMAL
[2021-07-06] MEDS ORDERED: RT-ALBUTEROL HFA 8.5 GM INHALER IH PRN (11:00)
[2021-07-06 11:15] LABS: BILIRUBIN,URINE NEGATIVE (NEGATIVE); CLARITY,URINE CLEAR; COLOR,URINE YELLOW; GLUCOSE, URINE (UA) NEGATIVE (NEGATIVE); KETONES,URINE NEGATIVE (NEGATIVE); LEUKOCYTE ESTERASE ,URINE NEGATIVE (NEGATIVE); NITRITE,URINE NEGATIVE (NEGATIVE); PROTEIN,URINE TRACE (NEGATIVE)
[2021-07-06 11:23] LABS: BACTERIA,URINE NEGATIVE /HPF; RBC,URINE RARE /HPF; SQUAMOUS EPITHELIAL CELL,UR RARE /HPF
--- NOTE | 2021-07-06 13:16 | History & Physical-Hospitalist ---
TOMMY DOUGLASS A MED STUDENT 07/06/21 1316: History of Present Illness HPI/Chief Complaint Pt is poor historian and is unsure why she came to hospital or how she got here. However, she is alert and oriented to person, place and time. According to ED record, pt has hx of Afib without anticoagulation d/t falls, HTN, anemia, alpha 1 antitrypsin COPD, CKD, peripheral arterial disease, CHF with EF of 70%, Left ventricular systolic dysfxn, sinus node dysfxn with pacemaker and hyperlipidemia. ED report states pt was brought in by daughters for confusion and SOA with oxygen saturations down to 84%. Pt was reported to have fever of 99 on 07/05, so COVID test was administered and was positive. Pt had telehealth visit with a provider and was prescribed prednisone. Pt then came to ED for worsening of symptoms. Pt reportedly lives at home with her 2 daughters who take care of her. For this medical student, pt confirms chills, SOA and cough, but denies chest pain, palpitations, N/V/D, abdominal pain, weakness or numbness. Source: patient, EMS notes reviewed Exam Limitations: other (Dementia) Date Seen 07/06/21 Time Seen by a Provider: 09:00 Attending Physician Loni Noguera MD PCP Romeo Kent MD Referring Physician Date of Admission Jul 06, 2021 at 02:45 Home Medications & Allergies Home Medications Reviewed patient Home Medication Reconciliation performed by pharmacy medication reconciliations mechanical design technician and/or nursing. Patients Allergies have been reviewed. Allergies Allergies Coded Allergies Penicillins (Verified Allergy, Mild, 07/17/19) ketorolac (Verified Allergy, Mild, 07/17/19) morphine (Verified Allergy, Mild, 07/17/19) tetracycline (Verified Allergy, Mild, 07/17/19) paroxetine (Unverified Allergy, Unknown, 07/17/19) Past Axsftlz-Vngvvh-Hrgowi Hx Patient Social History Tobacco Use?: No Smoking Status: Never a Smoker Smokeless Tobacco Frequency: Never a User Use of E-Cig and/or Vaping dev: No Substance use?: No Alcohol Use?: No Pt feels they are or have been: No Immunizations Up To Date Date of Influenza Vaccine: Mar 27, 2020 First/Initial COVID19 Vaccinat: JUN Second COVID19 Vaccination Timmy: JUL Tetanus Booster (TDap): Unknown PED Vaccines UTD: Yes Date of Pneumonia Vaccine: Feb 10, 2015 Seasonal Allergies Seasonal Allergies: No Current Status status: No status: No Advance Directives: No Communicates: Verbally Primary Language: Kazakh Preferred Spoken Language: Kazakh Is interpretation needed?: No Implanted or Applied Medical D: Pacemaker Past Medical History Surgeries: Abdominal, Appendectomy, Eye Surgery, Gallbladder, 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, Joint Replacement, Orthopedic, Pacemaker Asthma, Pulmonary Embolism, COPD Currently Using CPAP: No Currently Using BIPAP: No High Cholesterol, Hypertension 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, Menopausal Sexually Transmitted Disease: No HIV/AIDS: No Gastrointestinal Bleed, Chronic Diarrhea, Polyps, Ulcer, Irritable Bowel Degenerate Disk Disease, Arthritis, Chronic Back Pain, Fractures Cataract Loss of Vision: Denies Hearing Impairment: Hard of Hearing Anxiety Blood Disorders: Yes (BILATERAL P.E.'S 04/2018) Adverse Reaction/Blood Tranf: No Family Medical History Blood clots (sister had a blood clot in the brain which caused her  in 2010) Review of Systems Constitutional: chills; No dizziness, No weakness EENTM: No blurred vision Respiratory: cough, phlegm, short of breath Cardiovascular: No chest pain, No palpitations Gastrointestinal: No abdominal pain, No constipation, No diarrhea, No nausea Genitourinary: No dysuria, No frequency Musculoskeletal: no symptoms reported Skin: no symptoms reported Psychiatric/Neurological: No Symptoms Reported Physical Exam Physical Exam Vital Signs Vital Signs - First Documented 07/06/21 03:47 O2 Flow Rate 2.00 Capillary Refill : Height, Weight, BMI Height: 5'3.00" Weight: 150lbs. 0.0oz. 68.485751ku; 236.08 BMI Method:Stated General Appearance: No Apparent Distress, WD/WN HEENT: PERRL/EOMI Respiratory: Chest Non Tender, Decreased Breath Sounds, Rhonci Cardiovascular: Regular Rate, Rhythm Gastrointestinal: Normal Bowel Sounds, Non Tender, Soft Extremity: Normal Capillary Refill, Pedal Edema (mild nonpitting edema) Neurologic/Psychiatric: Alert, Oriented x3, Normal Mood/Affect, Other (unable to recall why she is in hospital) Skin: Normal Color, Warm/Dry Results Results/Procedures Labs Laboratory Tests 07/06/21 02:00 07/06/21 05:40 07/06/21 12:26 Patient resulted labs reviewed. Assessment/Plan Admission Diagnosis Acute on chronic respiratory failure, hyponatremia and COVID Reason for Inpatient Admission: Acute on chronic respiratory failure, hyponatremia and covid Assessment and Plan 81 yo female being treated for acute on chronic respiratory failure d/t COVID and hyponatremia. Hyponatremia -Sodium improving with NaCl. Slowed down fluids to prevent increasing sodium too quickly. -Frequent monitoring Acute on chronic respiratory failure -Hx of COPD vs. COVID infection or possibly both -Requiring very little oxygen, if any. -Unlikely to require oxygen on d/c COVID -Decadron COPD -Decadron -MAT protocol HTN -controlled Afib without anticoagulation d/t falls -Telemetry CHF -Last EF was 70%, follows with Dr. Louie CKD -BUN and Cr within normal limits Hyperlipidemia Sinus node dysfunction with pacemaker CAD Disposition: Likely stay 24 hours to stabilize sodium Diet: regular DVT prophylaxis: LONI Dixon MD 07/06/21 1806: History of Present Illness Time Seen by a Provider: 12:15 Past Vmejrkn-Jsmgxi-Ujyvhd Hx Past Medical History COPD Atrial Fibrillation, High Cholesterol, Hypertension Family Medical History Blood clots (sister had a blood clot in the brain which caused her  in 2010) Physical Exam Physical Exam General Appearance: No Apparent Distress, Obese HEENT: PERRL/EOMI, Pharynx Normal Neck: Normal Inspection, Supple Respiratory: No Respiratory Distress, Decreased Breath Sounds Cardiovascular: Regular Rate, Rhythm, No Murmur Gastrointestinal: Normal Bowel Sounds, Soft Extremity: Normal Inspection, Pedal Edema (mild nonpitting edema) Neurologic/Psychiatric: Alert, Normal Mood/Affect, Disoriented, Other (unable to recall why she is in hospital) Skin: Normal Color, Warm/Dry Results Results/Procedures Imaging: Reviewed Imaging Report Assessment/Plan Admission Diagnosis Admission Status: Inpatient Order (span 2 midnights) Reason for Inpatient Admission: Respiratory failure, hyponatremia Assessment and Plan Admitted with COVID with mild hypoxia. Severe hyponatremia, now improving. Monitor closely. Diagnosis/Problems Diagnosis/Problems (1) Acute on chronic respiratory failure with hypoxemia Status: Acute (2) COVID-19 Status: Acute (3) Hyponatremia Status: Acute Supervisory-Addendum Brief Verification & Attestation Participated in pt care: history, MDM, physical Personally performed: exam, history, MDM, supervision of care Care discussed with: Medical Student Procedures: n/a Results interpretation: Verified all documentation A medical student performed and documented this service in my presence. I reviewed and verified all information documented by the medical student and made modifications to such information, when appropriate. I personally performed the physical exam and medical decision making. TOMMY DOUGLASS MED STUDENT Jul 06, 2021 13:16 LONI NOGUERA MD Jul 06, 2021 18:06
[2021-07-06] MEDS: RT-ALBUTEROL HFA 8.5 GM INHALER IH SCH ×4 (15:14→21:52)
[2021-07-06] MEDS ORDERED: D5W 1000 ML IV SOLUTION 1,000 ML IV SCH (18:00)
[2021-07-06] MEDS ORDERED: QUEtiapine 100 MG (SEROquel) TAB IMMEDIATE RELEASE PO SCH (21:00)
[2021-07-06] MEDS: FLUTICASONE NASAL SPRAY (FLONASE) 16 GM BTL NS SCH (22:57)
[2021-07-06] MEDS: RIVASTIGMINE 1.5 MG (EXELON) CAP PO SCH (23:43)
[2021-07-06] MEDS: LORazepam 0.5 MG (ATIVAN) TABLET PO SCH (23:44)
[2021-07-06] MEDS: OXYBUTYNIN (DITROPAN) 5 MG TAB PO SCH (23:44)
[2021-07-07] MEDS: RT-ALBUTEROL HFA 8.5 GM INHALER IH SCH ×4 (02:28→15:24)
[2021-07-07 03:56] VITALS: BP 106/63
[2021-07-07 07:09] LABS: CALCIUM 9.1 MG/DL (8.5-10.1); CREATININE SERUM 0.75 MG/DL (0.60-1.30); POTASSIUM 3.4 MMOL/L (3.6-5.0)
[2021-07-07] MEDS ORDERED: NS IV 1000 ML 1,000 ML IV SCH (08:15)
[2021-07-07 08:19] VITALS: BP 113/59
[2021-07-07] MEDS: RIVASTIGMINE 1.5 MG (EXELON) CAP PO SCH (08:58)
[2021-07-07] MEDS: LORazepam 0.5 MG (ATIVAN) TABLET PO SCH (08:59)
[2021-07-07] MEDS: OXYBUTYNIN (DITROPAN) 5 MG TAB PO SCH (08:59)
[2021-07-07] MEDS ORDERED: MONTELUKAST 10 MG (SINGULAIR) TAB PO SCH (09:00)
[2021-07-07] MEDS ORDERED: PANTOPRAZOLE 20 MG TABLET (PROTONIX) PO SCH (09:00)
[2021-07-07] MEDS: FLUTICASONE NASAL SPRAY (FLONASE) 16 GM BTL NS SCH (09:00)
[2021-07-07] MEDS ORDERED: amLODIPine 5 MG (NORVASC) TAB PO SCH (09:00)
[2021-07-07 11:34] VITALS: BP 138/61
--- NOTE | 2021-07-07 13:19 | Discharge Summary ---
Diagnosis/Chief Complaint Date of Admission Jul 06, 2021 at 02:45 Date of Discharge Discharge Date: Jul 07, 2021 Admission Diagnosis Primary Care Romeo Kent MD Discharge Diagnosis (1) Acute on chronic respiratory failure with hypoxemia Status: Acute Assessment & Plan: Home oxygen study Currently on Room air at rest (2) COVID-19 Status: Acute Assessment & Plan: Prednisone taper (3) Hyponatremia Status: Resolved Assessment & Plan: -F/u with PCP in 1 week for CBC Discharge Summary Discharge Physical Exam Allergies: Coded Allergies: Penicillins (Verified Allergy, Mild, 07/17/19) ketorolac (Verified Allergy, Mild, 07/17/19) morphine (Verified Allergy, Mild, 07/17/19) tetracycline (Verified Allergy, Mild, 07/17/19) paroxetine (Unverified Allergy, Unknown, 07/17/19) Vitals & I&Os Vital Signs Date Time Temp Pulse Resp B/P (MAP) Pulse Ox O2 Delivery O2 Flow Rate FiO2 07/07/21 11:34 35.5 84 18 138/61 (86) 98 Room Air 07/06/21 15:15 2.00 General Appearance: No Apparent Distress, WD/WN HEENT: PERRL/EOMI Respiratory: Chest Non Tender, Lungs Clear, Normal Breath Sounds Cardiovascular: Regular Rate, Rhythm, No Murmur Gastrointestinal: Normal Bowel Sounds, Non Tender, Soft Skin: Normal Color, Warm/Dry Neurologic/Psychiatric: Alert, Normal Mood/Affect, Disoriented (Oriented to time and place, but unsure of why she was hospitalized) Hospital Course Pt was admitted for hyponatremia and COVID with mild hypoxia. Pt was found to have sodium of 119 on admission. Pt was started on IV NaCl and sodium improved to 128. Pt was also started on decadron for COVID with mild hypoxia. Pt required <2L of oxygen via NC throughout hospital course and was on room air with good oxygen saturations upon d/c. Labs (last 24 hrs) Laboratory Tests 07/06/21 20:25: Sodium Level 126L 07/07/21 06:23: Sodium Level 128L, Potassium Level 3.4L, Chloride Level 96L, Carbon Dioxide Level 19L, Anion Gap 13, Blood Urea Nitrogen 13, Creatinine 0.75, Estimat Glomerular Filtration Rate 81, BUN/Creatinine Ratio 17, Glucose Level 109H, Calcium Level 9.1 Patient resulted labs reviewed. Pending Labs Laboratory Tests 07/07/21 06:23: Sodium Level 128, Potassium Level 3.4, Chloride Level 96, Carbon Dioxide Level 19, Anion Gap 13, Blood Urea Nitrogen 13, Creatinine 0.75, Estimat Glomerular Filtration Rate 81, BUN/Creatinine Ratio 17, Glucose Level 109, Calcium Level 9.1 Imaging: Reviewed Imaging Report Discharge Home Medications: Active Scripts Active Potassium Chloride 10 Meq Tab.er.prt 10 Meq PO DAILY Furosemide 20 Mg Tablet 20 Mg PO DAILY PRN TO BE TAKEN NEEDED FOR 3 # WEIGHT GAIN IN 48 HOURS Reported Ferosul (Ferrous Sulfate) 325 Mg Tablet 325 Mg PO Benzonatate 100 Mg Capsule 100 Mg PO PRN Pantoprazole Sodium 40 Mg Tablet.dr 40 Mg PO DAILY Mirtazapine 15 Mg Tablet 15 Mg PO BID Amlodipine Besylate 5 Mg Tablet 5 Mg PO DAILY Fexofenadine-Pse ER 180-240 Tb (Fexofenadine/Pseudoephedrine) 1 Each Tab.er.24h 1 Each PO DAILY Tramadol HCl 50 Mg Tablet 50 Mg PO BID Quetiapine Fumarate 100 Mg Tablet 50 Mg PO HS TAKES OF A 100MG Quetiapine Fumarate 100 Mg Tablet 100 Mg PO DAILY Pravastatin Sodium 20 Mg Tablet 40 Mg PO HS TAKES 2 (20MG) TABS Ativan (Lorazepam) 0.5 Mg Tablet 0.5 Mg PO BID Carvedilol 3.125 Mg Tablet 3.125 Mg PO BID Omeprazole 20 Mg Capsule.dr 20 Mg PO DAILY Oxybutynin Chloride ER (Oxybutynin Chloride) 10 Mg Tab.er.24 10 Mg PO DAILY Rivastigmine (Rivastigmine Tartrate) 1.5 Mg Capsule 1.5 Mg PO BID Fluticasone Propionate 16 Gm Sandy.susp 1 Sandy NS BID Calcium 600 + Vit D 200 Tablet (Calcium Carbonate/Vitamin D3) 1 Each Tablet 1 Tab PO BID Tylenol Extra Strength (Acetaminophen) 500 Mg Tablet 1,000 Mg PO Q8H PRN TAKES 2 (500 MG) TABLETS Montelukast Sodium 10 Mg Tablet 10 Mg PO DAILY Instructions to patient/family Please see electronic discharge instructions given to patient. TOMYM DOUGLASS MED STUDENT Jul 07, 2021 13:19
[2021-07-07 16:09] VITALS: BP 138/61
== END 2021-07-07 16:15 | disposition home or self-care (01) | DRG 177 ==
LOC: EDUNIT# 01:38 → ER 01:40 → 4TH 02:45
PROVIDERS: ADMIT Internal Medicine; ATTEND Internal Medicine
DX: U07.1 COVID-19 (principal); J96.21 Acute and chronic respiratory failure with hypoxia; E87.1 Hypo-osmolality and hyponatremia; I13.0 Hypertensive heart and chronic kidney disease with heart failure and stage 1 through stage 4 chronic kidney disease, or unspecified chronic kidney disease; J44.9 Chronic obstructive pulmonary disease, unspecified; I50.9 Heart failure, unspecified; I48.91 Unspecified atrial fibrillation; N18.9 Chronic kidney disease, unspecified; E78.00 Pure hypercholesterolemia, unspecified; I49.5 Sick sinus syndrome; I25.10 Atherosclerotic heart disease of native coronary artery without angina pectoris; F03.90 Unspecified dementia, unspecified severity, without behavioral disturbance, psychotic disturbance, mood disturbance, and anxiety; K58.9 Irritable bowel syndrome, unspecified; M19.90 Unspecified osteoarthritis, unspecified site; G89.29 Other chronic pain; M54.9 Dorsalgia, unspecified; F41.9 Anxiety disorder, unspecified; R41.0 Disorientation, unspecified; Z79.01 Long term (current) use of anticoagulants; Z95.0 Presence of cardiac pacemaker; Z88.1 Allergy status to other antibiotic agents; Z88.0 Allergy status to penicillin; Z88.5 Allergy status to narcotic agent; Z86.711 Personal history of pulmonary embolism; Z73.0 Burn-out
CPT/HCPCS: 36415; 71045; 80048; 80053; 81000; 82805; 84295; 85007; 85025; 85027; 86141; 87804; 94640; 94664; 94760; 94761

== ENCOUNTER 2021-07-09 09:16 | Outpatient (CLI) | payer MEDICARE, MEDICAID ==
[~2021-07-09] VITALS: Ht 160 cm; Wt 97.6 kg
[~2021-07-09 09:16] MED LIST changes: +BENZ-36 PO; +FERR325T24 PO; +FEXO1TAB97 PO; +MIRT-68 PO; +PANT40TA52 PO
[2021-07-09 09:30] VITALS: BP 123/73
[2021-07-09] MEDS ORDERED: diphenhydrAMINE 50 MG/ML INJ (BENADRYL) IV PRN (09:45)
[2021-07-09] MEDS ORDERED: ONDANSETRON 4 MG/2 ML (SDV) Z0FRAN IV PRN (09:45)
[2021-07-09] MEDS ORDERED: ACETAMINOPHEN 500 MG TAB (TYLENOL) PO PRN (09:45)
[2021-07-09] MEDS ORDERED: SOTROVIMAB 500 MG/NS 50 ML IVPB IV ONE ×2 (09:45)
[2021-07-09] MEDS ORDERED: EPINEPHrine INJECTION 1 MG/ML AMP IM PRN (09:45)
[2021-07-09 11:00] VITALS: BP 122/68
== END 2021-07-09 11:00 | disposition home or self-care (01) ==
LOC: INFUSION 09:16
PROVIDERS: ATTEND Nurse Practitioner Family
DX: U07.1 COVID-19 (principal)

== ENCOUNTER 2021-11-22 11:47 | Emergency (ER) | payer MEDICARE, MEDICAID ==
[~2021-11-22] VITALS: Ht 162 cm; Wt 97.0 kg
[~2021-11-22 11:47] MED LIST changes: -DEXT1TAB3 PO; +DEXT1TAB5 PO; -FEXO-46 PO; +NF-ALLE180 PO
[2021-11-22 12:48] LABS: BASOPHILS # (AUTO) 0.1 10^3/uL (0.0-0.1); BASOPHILS % (AUTO) 1 % (0-10); EOSINOPHILS # (AUTO) 0.4 10^3/uL (0.0-0.3); EOSINOPHILS % (AUTO) 4 % (0-10); HEMATOCRIT 41 % (35-52); HEMOGLOBIN 13.7 g/dL (11.5-16.0); LYMPHOCYTES # (AUTO) 1.9 10^3/uL (1.0-4.0); LYMPHOCYTES % (AUTO) 18 % (12-44); MEAN CORPUSCULAR HEMOGLOBIN 31 pg (25-34); MEAN CORPUSCULAR HGB CONC 33 g/dL (32-36); MEAN CORPUSCULAR VOLUME 92 fL (80-99); MEAN PLATELET VOLUME 9.2 fL (9.0-12.2); MONOCYTES # (AUTO) 0.6 10^3/uL (0.0-1.0); MONOCYTES % (AUTO) 6 % (0-12); NEUTROPHILS # (AUTO) 7.4 10^3/uL (1.8-7.8); NEUTROPHILS % (AUTO) 70 % (42-75); PLATELET COUNT 401 10^3/uL (130-400); WHITE BLOOD COUNT 10.6 10^3/uL (4.3-11.0)
[2021-11-22 12:53] LABS: CHLORIDE 98 MMOL/L (98-107); POTASSIUM 3.9 MMOL/L (3.6-5.0); SODIUM 135 MMOL/L (135-145)
[2021-11-22 12:54] LABS: CALCIUM 9.7 MG/DL (8.5-10.1)
[2021-11-22 12:55] LABS: GLUCOSE 150 MG/DL (70-105)
--- NOTE | 2021-11-22 12:55 | Diagnostic Imaging Report ---
EXAMINATION: Chest, one view. HISTORY: Left arm weakness, stroke activation. COMPARISON: 07/06/2021. FINDINGS: Heart size and pulmonary vasculature are normal. The lungs are clear without consolidation, pleural effusion, or pneumothorax. The osseous structures are intact. Left-sided cardiac device is unchanged. Surgical changes from right shoulder arthroplasty. IMPRESSION: 1. No acute radiographic abnormality in the chest. Dictated by: Dictated on workstation # [id number]
[2021-11-22 12:56] LABS: TOTAL PROTEIN 7.1 GM/DL (6.4-8.2)
[2021-11-22 12:57] LABS: BILIRUBIN,TOTAL 0.5 MG/DL (0.1-1.0); CARBON DIOXIDE 24 MMOL/L (21-32)
[2021-11-22 12:59] LABS: ALKALINE PHOSPHATASE 65 U/L (40-136); GFR ESTIMATED 65
[2021-11-22 13:00] LABS: BUN/CREATININE RATIO 13; FIBRIN DEGRADATION PRODUCTS 0.89 UG/ML (0.00-0.49); INR 0.9 (0.8-1.4); PROTHROMBIN TIME PATIENT 12.9 SEC (12.2-14.7)
--- NOTE | 2021-11-22 13:01 | Diagnostic Imaging Report ---
INDICATION: Left arm weakness. TECHNIQUE: Routine non contrast-enhanced axial images were obtained from the skull base to the vertex. Auto Exposure Controls were utilized during the CT exam to meet ALARA standards for radiation dose reduction COMPARISON: 04/01/2021. FINDINGS: The ventricles and cortical sulci are diffusely prominent, compatible with age-related volume loss. There are confluent areas of abnormal, low attenuation in the periventricular white matter. This is consistent with chronic small vessel ischemic changes. There is no midline shift or mass-effect. No acute intra-axial hemorrhage is seen. There are no abnormal areas of increased or decreased density to suggest acute hemorrhage or edema. No extra-axial masses or collections are present. The bony calvarium is intact. The visualized paranasal sinuses are unremarkable. The mastoid air cells are clear. IMPRESSION: 1. No acute intracranial abnormality. No CT evidence of mass, acute infarct or intracranial hemorrhage. 2. Chronic small vessel ischemic changes in the deep white matter. Results were called to Dr. Osborn by Dr. Almaraz at 1257 hours on 11/22/2021. Dictated by: Dictated on workstation # [id number]
[2021-11-22 13:02] LABS: ALANINE AMINOTRANSFERASE 15 U/L (0-55)
[2021-11-22 14:47] LABS: BILIRUBIN,URINE NEGATIVE (NEGATIVE); CLARITY,URINE CLEAR; COLOR,URINE YELLOW; GLUCOSE, URINE (UA) NEGATIVE (NEGATIVE); KETONES,URINE NEGATIVE (NEGATIVE); LEUKOCYTE ESTERASE ,URINE NEGATIVE (NEGATIVE); NITRITE,URINE NEGATIVE (NEGATIVE); PROTEIN,URINE NEGATIVE (NEGATIVE)
[2021-11-22 14:59] LABS: BACTERIA,URINE NEGATIVE /HPF
--- NOTE | 2021-11-22 15:50 | Diagnostic Imaging Report ---
INDICATION: Left arm pain and weakness. TIME OF EXAM: 3:27 p.m. FINDINGS: Two views of the left humerus were obtained. Alignment at the shoulder and elbow appears stable. There appears to be an old fracture deformity of the proximal humerus, similar to the humerus radiographs from 01/17/2021. No acute fracture is seen. Acromioclavicular alignment is normal. IMPRESSION: Old fracture deformity of the proximal left humerus. No acute bony abnormality is identified. Dictated by: Dictated on workstation # [id number]
--- NOTE | 2021-11-22 15:59 | Diagnostic Imaging Report ---
CLINICAL HISTORY: Left arm weakness. Left shoulder pain. COMPARISON: 04/01/2021. TECHNIQUE: Three views of the left shoulder. FINDINGS: Stable chronic deformity of the neck of the proximal left humerus. No acute fracture is identified. Advanced degenerative changes are seen in the left glenohumeral joint with loss of the joint space, marginal osteophytes, and subchondral sclerosis. No suspicious focal osseous lesions are seen. The included left lung is clear. IMPRESSION: 1. No acute fracture or dislocation in the left shoulder. 2. Stable chronic deformity of the neck of the proximal left humerus. 3. Severe degenerative changes in the left glenohumeral joint. These are similar to the prior exam. Dictated by: Dictated on workstation # [id number]
[2021-11-22] MEDS ORDERED: CATHETER FLUSH 10 ML SYR IV PRN (16:15)
[2021-11-22] MEDS ORDERED: IOHEXOL 350 MG/ML 100 ML (OMNIPAQUE 350) VIAL IV ONE (16:15)
[2021-11-22] MEDS ORDERED: HOLD METFORMIN - RECEIVED CONTRAST 20 ML VIAL IV SCH (16:15)
[2021-11-22] MEDS ORDERED: NS 100 ML (IVPB) BAG IV ONE (16:15)
--- NOTE | 2021-11-22 16:43 | Diagnostic Imaging Report ---
PROCEDURE: US venous upper extremity left. TECHNIQUE: Multiple realtime grayscale images were obtained of left upper extremity in various projections. Additional spectral analysis and color Doppler duplex images were also obtained. INDICATION: Left arm pain and elevated d-dimer Grayscale and color Doppler evaluation of left upper extremity deep veins reveal no intraluminal filling defect. There is normal venous flow. There is normal compressibility and response to augmentation. IMPRESSION: No ultrasound evidence of left upper extremity deep venous thrombosis. Dictated by: Dictated on workstation # [id number]
--- NOTE | 2021-11-22 17:10 | Diagnostic Imaging Report ---
EXAMINATION: CT angiography head and neck with and without contrast. TECHNIQUE: After intravenous administration of contrast, thin section axial CT angiography of the head and neck was performed. Source data was reformatted into 3D MIP projections. All CT scans use one or more of the following dose optimizing techniques: automated exposure control, MA and/or KvP adjustment based on a patient size and exam type, or iterative reconstruction. HISTORY: Syncope, Left arm weakness COMPARISON: CT brain 11/22/2021 FINDINGS: The middle cerebral arteries are normal. The posterior cerebral arteries are normal. The anterior cerebral arteries are normal. There is no large vessel occlusion. No aneurysm or vascular malformation seen. The origins of the carotid arteries are normal. There is atherosclerotic disease bilaterally at the carotid bulbs and proximal internal carotid arteries with no significant stenosis.. The origin of the right common carotid artery is not included. The internal carotid arteries appear normal without stenosis aneurysmal dilatation or dissection. Vertebral artery origins are normal. There is no significant stenosis or evidence for occlusion. No vertebral artery dissections. There is atherosclerotic disease within the intracranial aspect of the left vertebral artery with moderate stenosis. Rose-white matter differentiation is normal. There is no mass mass effect or midline shift. There is no hydrocephalus. No abnormal enhancement seen on delayed postcontrast imaging. No soft tissue abnormality is seen. No osseus lesions or fractures are seen. Limited views of the superior thorax are unremarkable. IMPRESSION: 1. Areas of atherosclerotic disease is noted above with no significant stenosis or aneurysmal dilatation. No evidence for occlusion.. Dictated by: Dictated on workstation # [id number]
--- NOTE | 2021-11-22 18:51 | ED Neurological Problem ---
General Chief Complaint: Neurological Problems Stated Complaint: L ARM WEAKNESS Nursing Triage Note: Pt here for what family perceived as left side arm weakness. EMS and pt both do not note any left arm weakness. Pt is moving all extremities equally. Source: patient Exam Limitations: no limitations History of Present Illness Date Seen by Provider: Nov 22, 2021 Time Seen by Provider: 12:30 Initial Comments This 81-year-old woman presents to the emergency room via EMS with a history that is somewhat difficult to sort out. Reportedly the patient was sitting at home and got up to use her walker. At that time it was noted that her left arm felt numb. Patient denies having weakness in the arm but family observed that the arm was very weak. Patient has developed a new pain in the left proximal upper arm. No trauma is recalled. After examining the patient and discussing more with patient and family, it is unclear if she had a true weakness in the arm or if this was an observed lack of use due to pain. After a few minutes of this episode, patient was assisted to the restroom by her family. While on the toilet she became lightheaded and had a syncopal episode. Family reports she had complete loss of consciousness and had to be propped up. Patient does not remember losing consciousness. On arrival she shows no focal deficits except for her minor dementia like memory issues. Patient reports feeling well at this time except for the left proximal arm pain. Ultimately a stroke activation was paged. NIH score was 0. Patient has a pacemaker. Unfortunately, we are unable to interrogate her brand of pacemaker. Family believes there is a device at home that downloads her pacemaker reports. Allergies and Home Medications Allergies Coded Allergies: Penicillins (Verified Allergy, Mild, 07/17/19) ketorolac (Verified Allergy, Mild, 07/17/19) morphine (Verified Allergy, Mild, 07/17/19) tetracycline (Verified Allergy, Mild, 07/17/19) paroxetine (Unverified Allergy, Unknown, 07/17/19) Patient Home Medication List Home Medication List Reviewed: Yes Acetaminophen (Tylenol Extra Strength) 500 Mg Tablet, 1,000 MG PO Q8H PRN for PAIN-MILD (1-4), (Reported) Entered as Reported by: MARIELLA PALMA on 10/03/16 0753 Amlodipine Besylate (Amlodipine Besylate) 5 Mg Tablet, 5 MG PO DAILY, (Reported) Entered as Reported by: DENNY HANLEY on 07/06/21 050 Benzonatate (Benzonatate) 100 Mg Capsule, 100 MG PO PRN, (Reported) Entered as Reported by: DENNY HANLEY on 07/06/21 050 Calcium Carbonate/Vitamin D3 (Calcium 600 + Vit D 200 Tablet) 1 Each Tablet, 1 TAB PO BID, (Reported) Entered as Reported by: BEAU MELGAR on 07/13/17 1603 Carvedilol (Carvedilol) 3.125 Mg Tablet, 3.125 MG PO BID, (Reported) Entered as Reported by: TERESA NAGEL on 05/01/20 1336 Ferrous Sulfate (Ferosul) 325 Mg Tablet, 325 MG PO, (Reported) Entered as Reported by: DENNY HANLEY on 07/06/21 050 Fexofenadine/Pseudoephedrine (Fexofenadine-Pse ER 180-240 Tb) 1 Each Tab.er.24h, 1 EACH PO DAILY, (Reported) Entered as Reported by: DENNY HANLEY on 07/06/21 050 Fluticasone Propionate (Fluticasone Propionate) 16 Gm Divide.susp, 1 SPRAY NS BID, (Reported) Entered as Reported by: BEAU MELGAR on 07/13/17 1603 Furosemide (Furosemide) 20 Mg Tablet, 20 MG PO DAILY PRN for EDEMA Prescribed by: LALA PULLIAM on 05/07/20 0900 Lorazepam (Ativan) 0.5 Mg Tablet, 0.5 MG PO BID, (Reported) Entered as Reported by: TERESA NAGEL on 05/01/20 1336 Mirtazapine (Mirtazapine) 15 Mg Tablet, 15 MG PO BID, (Reported) Entered as Reported by: DENNY HANLEY on 07/06/21 050 Montelukast Sodium (Montelukast Sodium) 10 Mg Tablet, 10 MG PO DAILY, (Reported) Entered as Reported by: MARIELLA PALMA on 10/03/16 0753 Omeprazole (Omeprazole) 20 Mg Capsule.dr, 20 MG PO DAILY, (Reported) Entered as Reported by: TERESA NAGEL on 07/18/19 1004 Oxybutynin Chloride (Oxybutynin Chloride ER) 10 Mg Tab.er.24, 10 MG PO DAILY, (Reported) Entered as Reported by: TERESA NAGEL on 07/18/19 1004 Pantoprazole Sodium (Pantoprazole Sodium) 40 Mg Tablet.dr, 40 MG PO DAILY, (Reported) Entered as Reported by: DENNY HANLEY on 07/06/21 0502 Potassium Chloride (Potassium Chloride) 10 Meq Tab.er.prt, 10 MEQ PO DAILY Prescribed by: LALA PULLIAM on 05/07/20 0900 Pravastatin Sodium (Pravastatin Sodium) 20 Mg Tablet, 40 MG PO HS, (Reported) Entered as Reported by: TERESA NAGEL on 05/01/20 1336 Quetiapine Fumarate (Quetiapine Fumarate) 100 Mg Tablet, 100 MG PO DAILY, (Reported) Entered as Reported by: TERESA NAGEL on 05/01/20 1336 Quetiapine Fumarate (Quetiapine Fumarate) 100 Mg Tablet, 50 MG PO HS, (Reported) Entered as Reported by: TERESA NAGEL on 05/01/20 1336 Rivastigmine Tartrate (Rivastigmine) 1.5 Mg Capsule, 1.5 MG PO BID, (Reported) Entered as Reported by: KAYLEN JAMIL on 09/02/18 1106 Tramadol HCl (Tramadol HCl) 50 Mg Tablet, 50 MG PO BID, (Reported) Entered as Reported by: DENNY HANLEY on 07/06/21 0502 Review of Systems Review of Systems Constitutional: No fever; other (Generalized weakness chronically) Eyes: No Symptoms Reported Ears, Nose, Mouth, Throat: no symptoms reported Respiratory: short of breath (Chronically) Cardiovascular: see HPI Gastrointestinal: no symptoms reported Genitourinary: no symptoms reported : No Musculoskeletal: no symptoms reported Skin: no symptoms reported Psychiatric/Neurological: See HPI Endocrine: No Symptoms Reported Hematologic/Lymphatic: No Symptoms Reported Past Tkurhgn-Kkzgtg-Munjgg Hx Patient Social History Tobacco Use?: No Use of E-Cig and/or Vaping dev: No Substance use?: No Alcohol Use?: No Pt feels they are or have been: No Immunizations Up To Date Tetanus Booster (TDap): Unknown PED Vaccines UTD: Yes First/Initial COVID19 Vaccinat: JUN Second COVID19 Vaccination Timmy: Jul COVID19 Vaccination Date: MODERMA Seasonal Allergies Seasonal Allergies: No Past Medical History Surgeries: Yes Abdominal, Appendectomy, Eye Surgery, Gallbladder, 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, Joint Replacement, Orthopedic, Pacemaker Respiratory: Yes COPD Currently Using CPAP: No Currently Using BIPAP: No Cardiac: Yes (Congestive heart failure with EF of 35 percent) Atrial Fibrillation, High Cholesterol, Hypertension Neurological: Yes Dementia 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 Disorders: No Female 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 Disorders: Denies, Endometriosis 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, Menopausal Sexually Transmitted Disease: No HIV/AIDS: No Genitourinary: No Gastrointestinal: Yes (BLEEDING ULCER X 3; PERFORATED ULCER 2006; 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) Gastrointestinal Bleed, Chronic Diarrhea, Polyps, Ulcer, Irritable Bowel Musculoskeletal: Yes Degenerate Disk Disease, Arthritis, Chronic Back Pain, Fractures Endocrine: No HEENT: No Cataract Loss of Vision: Denies Hearing Impairment: Hard of Hearing Cancer: No Psychosocial: Yes Anxiety Integumentary: No Blood Disorders: Yes (BILATERAL P.E.'S 04/2018) Adverse Reaction/Blood Tranf: No Family Medical History Blood clots (sister had a blood clot in the brain which caused her  in 2010) Physical Exam Vital Signs Vital Signs - First Documented 11/22/21 11:50 Temp 36.3 Pulse 66 Resp 18 B/P (MAP) 129/57 (81) Pulse Ox 95 O2 Delivery Room Air Capillary Refill : Less Than 3 Seconds Height, Weight, BMI Height: 5'3.00" Weight: 150lbs. 0.0oz. 68.751968hh; 36.00 BMI Method:Stated General Appearance: WD/WN, no apparent distress, obese HEENT: PERRL/EOMI, normal ENT inspection Neck: normal inspection, other (No JVD) Respiratory: normal breath sounds, no respiratory distress, other (No wheezing was heard but patient does sometimes pursed lips on expiratory phase and has increased expiratory effort) Cardiovascular: no edema, no murmur, irregularly irregular Gastrointestinal: normal bowel sounds, non tender, soft Extremities: non-tender, swelling Neurologic/Psychiatric: supervisory geographer II-XII nml as tested, no motor/sensory deficits, alert, normal mood/affect, oriented x 3 Crainal Nerves: normal hearing, normal speech, PERRL Coordination/Gait: normal finger to nose Motor/Sensory: no motor deficit, no sensory deficit Stroke NIH Stroke Scale Assessment Select: Initial Level of Consciousness: 0=Alert (0), Level of Consciousness- Questions: 0=Answers both month/age (0), LOC Commands: 0=Performs both tasks (0), Gaze: Normal (0), Visual Nova: 0=No visual loss (0), Facial Movement (Facial Paresis): 0=Normal symmetrical mnt (0), Motor Function-Arms Right: 0=No drift (0), Motor Function-Arms Left: 0=No drift (0), Motor Function-Legs Right: 0=No drift (0), Motor Function-Legs Left: 0=No drift (0), Limb Ataxia: 0=Absent (0), Sensory: 0=Normal:no loss (0), Best Language: 0=No aphasia (0), Dysarthria: 0=Normal (0), Extinction & Inattention: 0=No abnormality (0), Total: 0 Progress/Results/Core Measures Results/Orders Lab Results Laboratory Tests Test 11/22/21 12:32 11/22/21 13:00 11/22/21 14:27 Range/Units White Blood Count 10.6 4.3-11.0 10^3/uL Red Blood Count 4.47 3.80-5.11 10^6/uL Hemoglobin 13.7 11.5-16.0 g/dL Hematocrit 41 35-52 % Mean Corpuscular Volume 92 80-99 fL Mean Corpuscular Hemoglobin 31 25-34 pg Mean Corpuscular Hemoglobin Concent 33 32-36 g/dL Red Cell Distribution Width 12.9 10.0-14.5 % Platelet Count 401 H 130-400 10^3/uL Mean Platelet Volume 9.2 9.0-12.2 fL Immature Granulocyte % (Auto) 1 % Neutrophils (%) (Auto) 70 42-75 % Lymphocytes (%) (Auto) 18 12-44 % Monocytes (%) (Auto) 6 0-12 % Eosinophils (%) (Auto) 4 0-10 % Basophils (%) (Auto) 1 0-10 % Neutrophils # (Auto) 7.4 1.8-7.8 10^3/uL Lymphocytes # (Auto) 1.9 1.0-4.0 10^3/uL Monocytes # (Auto) 0.6 0.0-1.0 10^3/uL Eosinophils # (Auto) 0.4 H 0.0-0.3 10^3/uL Basophils # (Auto) 0.1 0.0-0.1 10^3/uL Immature Granulocyte # (Auto) 0.1 0.0-0.1 10^3/uL Prothrombin Time 12.9 12.2-14.7 SEC INR Comment 0.9 0.8-1.4 Activated Partial Thromboplast Time 28 24-35 SEC D-Dimer 0.89 H 0.00-0.49 UG/ML Sodium Level 135 135-145 MMOL/L Potassium Level 3.9 3.6-5.0 MMOL/L Chloride Level 98 98-107 MMOL/L Carbon Dioxide Level 24 21-32 MMOL/L Anion Gap 13 5-14 MMOL/L Blood Urea Nitrogen 12 7-18 MG/DL Creatinine 0.90 0.60-1.30 MG/DL Estimat Glomerular Filtration Rate 65 BUN/Creatinine Ratio 13 Glucose Level 150 H 70-105 MG/DL Calcium Level 9.7 8.5-10.1 MG/DL Corrected Calcium 9.7 8.5-10.1 MG/DL Total Bilirubin 0.5 0.1-1.0 MG/DL Aspartate Amino Transf (AST/SGOT) 18 5-34 U/L Alanine Aminotransferase (ALT/SGPT) 15 0-55 U/L Alkaline Phosphatase 65 40-136 U/L Total Creatine Kinase 47 29-168 U/L Troponin I < 0.028 <0.028 NG/ML Total Protein 7.1 6.4-8.2 GM/DL Albumin 4.0 3.2-4.5 GM/DL Glucometer 135 H 70-110 MG/DL Urine Color YELLOW Urine Clarity CLEAR Urine pH 6.0 5-9 Urine Specific [place] 1.010 L 1.016-1.022 Urine Protein NEGATIVE NEGATIVE Urine Glucose (UA) NEGATIVE NEGATIVE Urine Ketones NEGATIVE NEGATIVE Urine Nitrite NEGATIVE NEGATIVE Urine Bilirubin NEGATIVE NEGATIVE Urine Urobilinogen 0.2 < = 1.0 MG/DL Urine Leukocyte Esterase NEGATIVE NEGATIVE Urine RBC (Auto) NEGATIVE NEGATIVE Urine RBC NONE /HPF Urine WBC NONE /HPF Urine Crystals NONE /LPF Urine Bacteria NEGATIVE /HPF Urine Casts NONE /LPF Urine Mucus NEGATIVE /LPF Urine Culture Indicated NO My Orders Orders - SPIKE NIX MD Cbc With Automated Diff (11/22/21 12:40) Protime With Inr (11/22/21 12:40) Partial Thromboplastin Time (11/22/21 12:40) Comprehensive Metabolic Panel (11/22/21 12:40) Fibrin Degradation Products (11/22/21 12:40) Troponin I Donald (11/22/21 12:40) Ua Culture If Indicated (11/22/21 12:40) Chest 1 View, Ap/Pa Only (11/22/21 12:40) Ekg Tracing (11/22/21 12:40) Nothing By Mouth (11/22/21 Lunch) Accucheck Stat ONCE (11/22/21 12:40) Ed Iv/Invasive Line Start (11/22/21 12:40) Ed Iv/Invasive Line Start (11/22/21 12:40) Vital Signs Stroke Patient Q15M (11/22/21 12:40) Ct Head Wo-R/O Stroke (11/22/21 12:40) O2 (11/22/21 12:40) Intake & Output 06,14,22 (11/22/21 12:40) Monitor-Rhythm Ecg Trace Only (11/22/21 12:40) Dysphagia Screening Tool Q10MX1 (11/22/21 12:40) Post Thrombolytic Adminstratio (11/22/21 12:40) Creatine Kinase (11/22/21 15:01) Shoulder, Left, 3 Views (11/22/21 15:01) Humerus, Left, 2 Views (11/22/21 15:01) Ct Angio Head/Neck (11/22/21 15:54) Us Venous Upper Ext Lt (11/22/21 15:54) Iohexol Injection (Omnipaque 350 Mg/Ml 1 (11/22/21 16:15) Received Contrast (Hold Metformin- Contr (11/22/21 16:15) Sodium Chloride Flush (Catheter Flush Sy (11/22/21 16:15) Ns (Ivpb) (Sodium Chloride 0.9% Ivpb Bag (11/22/21 16:15) Amlodipine Tablet (Norvasc Tablet) (11/22/21 19:00) Medications Given in ED Vital Signs/I&O 11/22/21 11/22/21 11/22/21 11/22/21 11:50 14:57 18:38 19:23 Temp 36.3 36.3 Pulse 66 70 76 76 Resp 18 18 20 20 B/P (MAP) 129/57 (81) 144/96 173/95 173/95 Pulse Ox 95 96 94 94 O2 Delivery Room Air Room Air Room Air Room Air Blood Pressure Mean: 121 Progress Progress Note : Progress Note Stroke activation was paged. Ultimately, stroke syndrome seem very unlikely. The left arm deficit seems more likely due to the new pain she is experiencing. This pain is likely related to arthritic changes based on x-ray findings and the lack of an acute trauma. No acute neurologic deficits were ever found on exam or observation in the emergency room. Unfortunately, we were unable to interrogate her pacemaker. Family was encouraged to investigate if this can be done with the machine at home. They were encouraged to follow-up with the primary care provider and food inspector early next week. I did discuss this case with Dr. Ortiz regarding potential for any benefit to inpatient admission. He and I agree there is likely little benefit to an inpatient admission as the primary work-up was completed in the ER and there were no treatable conditions identified that required admission. Patient and family are agreeable to returning home with precautions. Patient was persistently hypertensive although it was difficult to obtain good blood pressure measurements. Measurements on the upper arms were difficult due to body habitus, pain in the right upper arm from prior connie placement, and new pain in the left upper arm. Forearm blood pressure cuffs are less reliable. Because the blood pressure measurements were so consistently elevated, she was given an additional amlodipine 5 mg to help control blood pressure. Initial ECG Impression Date: Nov 22, 2021 Initial ECG Impression Time: 12:57 Initial ECG Rate: 66 Comment Dual paced rhythm with no noticeable ST changes when compared with prior. Very similar to prior EKG. Diagnostic Imaging Diagonstic Imaging: Xray Plain Films/CT/US/NM/MRI: chest Comments NAME: [facility] REC#: [id number] PT STATUS: REG ER : 1940 PHYSICIAN: SPIKE NIX MD ADMIT DATE: 11/22/21/ER Signed Date of Exam:11/22/21 CHEST 1 VIEW, AP/PA ONLY EXAMINATION: Chest, one view. HISTORY: Left arm weakness, stroke activation. COMPARISON: 07/06/2021. FINDINGS: Heart size and pulmonary vasculature are normal. The lungs are clear without consolidation, pleural effusion, or pneumothorax. The osseous structures are intact. Left-sided cardiac device is unchanged. Surgical changes from right shoulder arthroplasty. IMPRESSION: 1. No acute radiographic abnormality in the chest. Dictated by: Dictated on workstation # [id number] Dict: 11/22/21 1253 Trans: 11/22/21 1259 [id number] Interpreted by: AMANDA STEELE DO Electronically signed by: AMANDA STEELE DO 11/22/21 1259 Diagonstic Imaging: CT Plain Films/CT/US/NM/MRI: head Comments NAME: [facility] REC#: [id number] PT STATUS: REG ER : 1940 PHYSICIAN: SPIKE NIX MD ADMIT DATE: 11/22/21/ER Signed Date of Exam:11/22/21 CT HEAD WO-R/O STROKE INDICATION: Left arm weakness. TECHNIQUE: Routine non contrast-enhanced axial images were obtained from the skull base to the vertex. Auto Exposure Controls were utilized during the CT exam to meet ALARA standards for radiation dose reduction COMPARISON: 04/01/2021. FINDINGS: The ventricles and cortical sulci are diffusely prominent, compatible with age-related volume loss. There are confluent areas of abnormal, low attenuation in the periventricular white matter. This is consistent with chronic small vessel ischemic changes. There is no midline shift or mass-effect. No acute intra-axial hemorrhage is seen. There are no abnormal areas of increased or decreased density to suggest acute hemorrhage or edema. No extra-axial masses or collections are present. The bony calvarium is intact. The visualized paranasal sinuses are unremarkable. The mastoid air cells are clear. IMPRESSION: 1. No acute intracranial abnormality. No CT evidence of mass, acute infarct or intracranial hemorrhage. 2. Chronic small vessel ischemic changes in the deep white matter. Results were called to Dr. Nix by Dr. Rodas at 1257 hours on 11/22/2021. Dictated by: Dictated on workstation # [id number] Dict: 11/22/21 1253 Trans: 11/22/21 1648 [id number] Interpreted by: LEO RODAS MD Electronically signed by: LEO RODAS MD 11/22/21 1648 Plain Films/CT/US/NM/MRI: other (Left humerus) Comments Left humerus x-ray viewed by me and compared with prior. Report reviewed. See report below: NAME: [facility] REC#: [id number] PT STATUS: REG ER : 1940 PHYSICIAN: SPIKE NIX MD ADMIT DATE: 11/22/21/ER Signed Date of Exam:11/22/21 HUMERUS, LEFT, 2 VIEWS INDICATION: Left arm pain and weakness. TIME OF EXAM: 3:27 p.m. FINDINGS: Two views of the left humerus were obtained. Alignment at the shoulder and elbow appears stable. There appears to be an old fracture deformity of the proximal humerus, similar to the humerus radiographs from 01/17/2021. No acute fracture is seen. Acromioclavicular alignment is normal. IMPRESSION: Old fracture deformity of the proximal left humerus. No acute bony abnormality is identified. Dictated by: Dictated on workstation # [id number] Dict: 11/22/21 1545 Trans: 11/22/21 1557 [id number] Interpreted by: JERMAINE CAMPOS MD Electronically signed by: JERMAINE CAMPOS MD 11/22/21 1557 Diagonstic Imaging: Xray Plain Films/CT/US/NM/MRI: other (Left shoulder) Comments Left shoulder x-ray viewed by me and report reviewed. Compared with prior. See report below: NAME: [facility] REC#: [id number] PT STATUS: REG ER : 1940 PHYSICIAN: SPIKE NIX MD ADMIT DATE: 11/22/21/ER Signed Date of Exam:11/22/21 SHOULDER, LEFT, 3 VIEWS CLINICAL HISTORY: Left arm weakness. Left shoulder pain. COMPARISON: 04/01/2021. TECHNIQUE: Three views of the left shoulder. FINDINGS: Stable chronic deformity of the neck of the proximal left humerus. No acute fracture is identified. Advanced degenerative changes are seen in the left glenohumeral joint with loss of the joint space, marginal osteophytes, and subchondral sclerosis. No suspicious focal osseous lesions are seen. The included left lung is clear. IMPRESSION: 1. No acute fracture or dislocation in the left shoulder. 2. Stable chronic deformity of the neck of the proximal left humerus. 3. Severe degenerative changes in the left glenohumeral joint. These are similar to the prior exam. Dictated by: Dictated on workstation # [id number] Dict: 11/22/21 1555 Trans: 11/22/21 1559 [id number] Interpreted by: DILMA RACHEL DO Electronically signed by: DILMA RACHEL DO 11/22/21 1559 Diagonstic Imaging: CT Plain Films/CT/US/NM/MRI: other (Angiogram head and neck) Comments NAME: [facility] REC#: [id number] PT STATUS: REG ER : 1940 PHYSICIAN: SPIKE NIX MD ADMIT DATE: 11/22/21/ER Signed Date of Exam:11/22/21 CT ANGIO HEAD/NECK EXAMINATION: CT angiography head and neck with and without contrast. TECHNIQUE: After intravenous administration of contrast, thin section axial CT angiography of the head and neck was performed. Source data was reformatted into 3D MIP projections. All CT scans use one or more of the following dose optimizing techniques: automated exposure control, MA and/or KvP adjustment based on a patient size and exam type, or iterative reconstruction. HISTORY: Syncope, Left arm weakness COMPARISON: CT brain 11/22/2021 FINDINGS: The middle cerebral arteries are normal. The posterior cerebral arteries are normal. The anterior cerebral arteries are normal. There is no large vessel occlusion. No aneurysm or vascular malformation seen. The origins of the carotid arteries are normal. There is atherosclerotic disease bilaterally at the carotid bulbs and proximal internal carotid arteries with no significant stenosis.. The origin of the right common carotid artery is not included. The internal carotid arteries appear normal without stenosis aneurysmal dilatation or dissection. Vertebral artery origins are normal. There is no significant stenosis or evidence for occlusion. No vertebral artery dissections. There is atherosclerotic disease within the intracranial aspect of the left vertebral artery with moderate stenosis. Rose-white matter differentiation is normal. There is no mass mass effect or midline shift. There is no hydrocephalus. No abnormal enhancement seen on delayed postcontrast imaging. No soft tissue abnormality is seen. No osseus lesions or fractures are seen. Limited views of the superior thorax are unremarkable. IMPRESSION: 1. Areas of atherosclerotic disease is noted above with no significant stenosis or aneurysmal dilatation. No evidence for occlusion.. Dictated by: Dictated on workstation # [id number] Dict: 11/22/21 1700 Trans: 11/22/211710 CVB [id number] Interpreted by: LUISA ESQUEDA MD Electronically signed by: LUISA ESQUEDA MD 11/22/211710 Diagonstic Imaging: Ultrasound Plain Films/CT/US/NM/MRI: other (Left upper extremity) Comments Ultrasound discussed with the master certified rv technician and report reviewed. See report below: NAME: [facility] REC#: [id number] PT STATUS: REG ER : 1940 PHYSICIAN: SPIKE NIX MD ADMIT DATE: 11/22/21/ER Signed Date of Exam:11/22/21 US VENOUS UPPER EXT LT PROCEDURE: US venous upper extremity left. TECHNIQUE: Multiple realtime grayscale images were obtained of left upper extremity in various projections. Additional spectral analysis and color Doppler duplex images were also obtained. INDICATION: Left arm pain and elevated d-dimer Grayscale and color Doppler evaluation of left upper extremity deep veins reveal no intraluminal filling defect. There is normal venous flow. There is normal compressibility and response to augmentation. IMPRESSION: No ultrasound evidence of left upper extremity deep venous thrombosis. Dictated by: Dictated on workstation # [id number] Dict: 11/22/21 164 Trans: 11/22/21 164 TF [id number] Interpreted by: DELMI MAYES MD Electronically signed by: DELMI MAYES MD 11/22/211641 CT Read Date: Nov 22, 2021 CT Read Time: 12:57 CT Results/Progress Notes No acute abnormalities on noncontrast CT Departure Impression Primary Impression: Left arm pain Additional Impressions: Syncope Qualified Codes: R55 - Syncope and collapse HTN (hypertension) Qualified Codes: I10 - Essential (primary) hypertension Disposition: 01 HOME, SELF-CARE Condition: Stable Departure-Patient Inst. Decision time for Depature: 18:53 Referrals: BRAD HDEZ MD (PCP/Family) Primary Care Physician Patient Instructions: Syncope (Fainting) Add. Discharge Instructions: Continue taking your medications as prescribed. If your blood pressure remains high, you may add an additional Norvasc (amlodipine) 5 mg in the evenings. The symptoms of the left arm seem to be related to pain based on physical examination and work-up in the ER today. You may use Tylenol (acetaminophen) up to 1000 mg every 6 hours as needed as well as your prescribed tramadol (Ultram). Please follow-up with the cardiology clinic on Thursday. If you have a way to interrogate the pacemaker through a home device and contact with the pacemaker company, that would be beneficial. Return to the ER if there are worsening or recurrent symptoms. Call with questions or concerns. All discharge instructions reviewed with patient and/or family. Voiced understanding. Copy Copies To 1: BRAD HDEZ MD Copies To 2: GRISEL DEL ACRUZ MD, JOSHUA T MD Nov 22, 2021 18:51
[2021-11-22] MEDS ORDERED: amLODIPine 5 MG (NORVASC) TAB PO ONE (19:00)
[2021-11-22 19:23] VITALS: BP 173/95
== END 2021-11-22 19:23 | disposition home or self-care (01) ==
LOC: EDUNIT# 11:47 → ER 11:48
DX: R55 Syncope and collapse (principal); I10 Essential (primary) hypertension; M79.605 Pain in left leg
CPT/HCPCS: 36415; 70450; 70496; 70498; 71045; 73030; 73060; 80053; 81000; 82550; 82947; 84484; 85025; 85379; 85610; 85730; 93005; 93041

== ENCOUNTER 2022-01-08 22:15 | Emergency (ER) | payer MEDICARE, MEDICAID ==
[2022-01-08 22:16] VITALS: BP 161/92
[2022-01-08 22:33] LABS: BASOPHILS # (AUTO) 0.1 10^3/uL (0.0-0.1); BASOPHILS % (AUTO) 1 % (0-10); EOSINOPHILS # (AUTO) 0.4 10^3/uL (0.0-0.3); EOSINOPHILS % (AUTO) 3 % (0-10); HEMATOCRIT 37 % (35-52); HEMOGLOBIN 12.3 g/dL (11.5-16.0); LYMPHOCYTES # (AUTO) 2.7 10^3/uL (1.0-4.0); LYMPHOCYTES % (AUTO) 22 % (12-44); MEAN CORPUSCULAR HEMOGLOBIN 30 pg (25-34); MEAN CORPUSCULAR HGB CONC 33 g/dL (32-36); MEAN CORPUSCULAR VOLUME 90 fL (80-99); MEAN PLATELET VOLUME 9.2 fL (9.0-12.2); MONOCYTES % (AUTO) 8 % (0-12); NEUTROPHILS # (AUTO) 8.2 10^3/uL (1.8-7.8); NEUTROPHILS % (AUTO) 66 % (42-75); PLATELET COUNT 349 10^3/uL (130-400); WHITE BLOOD COUNT 12.4 10^3/uL (4.3-11.0)
[2022-01-08 22:49] LABS: ALBUMIN 3.9 GM/DL (3.2-4.5)
[2022-01-08 22:50] LABS: BILIRUBIN,URINE NEGATIVE (NEGATIVE); CLARITY,URINE CLEAR; COLOR,URINE YELLOW; GLUCOSE, URINE (UA) NEGATIVE (NEGATIVE); KETONES,URINE NEGATIVE (NEGATIVE); LEUKOCYTE ESTERASE ,URINE 1+ (NEGATIVE); NITRITE,URINE NEGATIVE (NEGATIVE); PROTEIN,URINE NEGATIVE (NEGATIVE)
[2022-01-08 22:50] LABS: POTASSIUM 3.9 MMOL/L (3.6-5.0)
[2022-01-08 22:51] LABS: CALCIUM 9.4 MG/DL (8.5-10.1)
[2022-01-08 22:52] LABS: TOTAL PROTEIN 6.8 GM/DL (6.4-8.2)
[2022-01-08 22:54] LABS: BILIRUBIN,TOTAL 0.3 MG/DL (0.1-1.0)
[2022-01-08 22:56] LABS: CREATININE SERUM 0.95 MG/DL (0.60-1.30)
[2022-01-08 22:59] LABS: BACTERIA,URINE FEW /HPF
--- NOTE | 2022-01-08 23:00 | Diagnostic Imaging Report ---
INDICATION: Cough and congestion COMPARISON: 11/22/2021 FINDINGS: Pacemaker device is present. There is mild enlargement of the cardiac silhouette but no current findings to suggest edema or failure. There is no alveolar consolidation. There minimal blunting of the right costophrenic angle which could reflect a trace effusion. There is no pneumothorax. There has been prior right shoulder arthroplasty. IMPRESSION: 1. Mild prominence of the cardiac silhouette without current evidence of edema or failure. 2. No alveolar consolidation to suggest pneumonia. 3. Blunting of the right costophrenic angle may reflect atelectasis or trace effusion. Dictated by: Dictated on workstation # [id number]
--- NOTE | 2022-01-08 23:11 | ED Back Pain ---
General Chief Complaint: Back Problems Stated Complaint: HYPERTENSION Nursing Triage Note: pt presents via ems. reports right sided back pain that started earlier today. reports the pain wraps around her side into her chest. reports pain is worse with movement and deepbreathing. reports a cough for an unknown amount of time. Source of Information: Patient Exam Limitations: No Limitations History of Present Illness Date Seen by Provider: Jan 08, 2022 Time Seen by Provider: 22:17 Initial Comments This 81 year old woman presents to the ER with complaints of pain in the right upper back and cough. She was noted to be yelling out at home because of this pain. She states it is worse with deep breathing and movement. Symptoms have been present for unknown amount of time. She denies N/V/D or fever. She has TTP in the LUQ and the right chest on exam. Allergies and Home Medications Allergies Coded Allergies: Penicillins (Verified Allergy, Mild, 07/17/19) ketorolac (Verified Allergy, Mild, 07/17/19) morphine (Verified Allergy, Mild, 07/17/19) tetracycline (Verified Allergy, Mild, 07/17/19) paroxetine (Unverified Allergy, Unknown, 07/17/19) Patient Home Medication List Home Medication List Reviewed: Yes Acetaminophen (Tylenol Extra Strength) 500 Mg Tablet, 1,000 MG PO Q8H PRN for PAIN-MILD (1-4), (Reported) Entered as Reported by: MARIELLA PALMA on 10/03/16 0753 Amlodipine Besylate (Amlodipine Besylate) 5 Mg Tablet, 5 MG PO DAILY, (Reported) Entered as Reported by: DENNY HANLEY on 07/06/21 0502 Benzonatate (Benzonatate) 100 Mg Capsule, 100 MG PO PRN, (Reported) Entered as Reported by: DENNY HANLEY on 07/06/21 0502 Calcium Carbonate/Vitamin D3 (Calcium 600 + Vit D 200 Tablet) 1 Each Tablet, 1 TAB PO BID, (Reported) Entered as Reported by: BEAU MELGAR on 07/13/17 1603 Carvedilol (Carvedilol) 3.125 Mg Tablet, 3.125 MG PO BID, (Reported) Entered as Reported by: TERESA NAGEL on 05/01/20 1336 Ferrous Sulfate (Ferosul) 325 Mg Tablet, 325 MG PO, (Reported) Entered as Reported by: DENNY HANLEY on 07/06/21 0502 Fexofenadine/Pseudoephedrine (Fexofenadine-Pse ER 180-240 Tb) 1 Each Tab.er.24h, 1 EACH PO DAILY, (Reported) Entered as Reported by: DENNY HANLEY on 07/06/21 050 Fluticasone Propionate (Fluticasone Propionate) 16 Gm [place].susp, 1 SPRAY NS BID, (Reported) Entered as Reported by: BEAU MELGAR on 07/13/17 1603 Furosemide (Furosemide) 20 Mg Tablet, 20 MG PO DAILY PRN for EDEMA Prescribed by: LALA PULLIAM on 05/07/20 0900 Lorazepam (Ativan) 0.5 Mg Tablet, 0.5 MG PO BID, (Reported) Entered as Reported by: TERESA NAGEL on 05/01/20 1336 Mirtazapine (Mirtazapine) 15 Mg Tablet, 15 MG PO BID, (Reported) Entered as Reported by: DENNY HANLEY on 07/06/21 050 Montelukast Sodium (Montelukast Sodium) 10 Mg Tablet, 10 MG PO DAILY, (Reported) Entered as Reported by: MARIELLA PALMA on 10/03/16 0753 Omeprazole (Omeprazole) 20 Mg Capsule.dr, 20 MG PO DAILY, (Reported) Entered as Reported by: TERESA NAGEL on 07/18/19 1004 Oxybutynin Chloride (Oxybutynin Chloride ER) 10 Mg Tab.er.24, 10 MG PO DAILY, (Reported) Entered as Reported by: TERSEA NAGEL on 07/18/19 1004 Pantoprazole Sodium (Pantoprazole Sodium) 40 Mg Tablet.dr, 40 MG PO DAILY, (Reported) Entered as Reported by: DENNY HANLEY on 07/06/21 050 Potassium Chloride (Potassium Chloride) 10 Meq Tab.er.prt, 10 MEQ PO DAILY Prescribed by: LALA PULLIAM on 05/07/20 0900 Pravastatin Sodium (Pravastatin Sodium) 20 Mg Tablet, 40 MG PO HS, (Reported) Entered as Reported by: TERESA NAGEL on 05/01/20 1336 Quetiapine Fumarate (Quetiapine Fumarate) 100 Mg Tablet, 100 MG PO DAILY, (Reported) Entered as Reported by: TERESA NAGEL on 05/01/20 1336 Quetiapine Fumarate (Quetiapine Fumarate) 100 Mg Tablet, 50 MG PO HS, (Reported) Entered as Reported by: TERESA NAGEL on 05/01/20 1336 Rivastigmine Tartrate (Rivastigmine) 1.5 Mg Capsule, 1.5 MG PO BID, (Reported) Entered as Reported by: KAYLEN JAMLI on 09/02/18 1106 Tramadol HCl (Tramadol HCl) 50 Mg Tablet, 50 MG PO BID, (Reported) Entered as Reported by: DENNY HANLEY on 07/06/21 0502 Review of Systems Constitutional: no symptoms reported EENTM: no symptoms reported Respiratory: see HPI Cardiovascular: no symptoms reported Gastrointestinal: see HPI Genitourinary: no symptoms reported : No Musculoskeletal: see HPI Skin: no symptoms reported Psychiatric/Neurological: No Symptoms Reported Past Semzlij-Ytjcdn-Ufsmnw Hx Patient Social History Tobacco Use?: No Substance use?: No Alcohol Use?: No Pt feels they are or have been: No Immunizations Up To Date Tetanus Booster (TDap): Unknown PED Vaccines UTD: Yes First/Initial COVID19 Vaccinat: stated 'information is on file already" Second COVID19 Vaccination Timmy: JUL Third COVID19 Vaccination Date: MODER Seasonal Allergies Seasonal Allergies: No Past Medical History Surgery/Hospitalization HX: stated "information is on file already" Surgeries: Yes Abdominal, Appendectomy, Eye Surgery, Gallbladder, 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, Joint Replacement, Orthopedic, Pacemaker Respiratory: Yes COPD Currently Using CPAP: No Currently Using BIPAP: No Cardiac: Yes (Congestive heart failure with EF of 35 percent) Atrial Fibrillation, High Cholesterol, Hypertension Neurological: Yes Dementia 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 Disorders: No Female 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 Disorders: Denies, Endometriosis [employer] History: 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, Menopausal Sexually Transmitted Disease: No HIV/AIDS: No Genitourinary: No Gastrointestinal: Yes (BLEEDING ULCER X 3; PERFORATED ULCER 2006; 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) Gastrointestinal Bleed, Chronic Diarrhea, Polyps, Ulcer, Irritable Bowel Musculoskeletal: Yes Degenerate Disk Disease, Arthritis, Chronic Back Pain, Fractures Endocrine: No HEENT: No Cataract Loss of Vision: Denies Hearing Impairment: Hard of Hearing Cancer: No Psychosocial: Yes Anxiety Integumentary: No Blood Disorders: Yes (BILATERAL P.E.'S 04/2018) Adverse Reaction/Blood Tranf: No Family Medical History Blood clots (sister had a blood clot in the brain which caused her  in 2010) Physical Exam Vital Signs Vital Signs - First Documented 01/08/22 22:16 Temp 36.6 Pulse 74 Resp 18 B/P (MAP) 161/92 (115) Pulse Ox 93 O2 Delivery Room Air Capillary Refill : Height, Weight, BMI Height: 5'3.00" Weight: 150lbs. 0.0oz. 68.438375tn; 36.00 BMI Method:Stated General Appearance: No Apparent Distress, WD/WN HEENT: PERRL/EOMI, Normal ENT Inspection Neck: Normal Inspection Cardiovascular: Regular Rate, Rhythm, No Edema, No Murmur Respiratory: Lungs Clear, Normal Breath Sounds, No Accessory Muscle Use, Other (right anterior chest wall TTP) Gastrointestinal: Normal Bowel Sounds, Soft, Tenderness (Mild in the LUQ) Extremity: Normal Inspection, No Pedal Edema Neurologic/Psychiatric: Alert, No Motor/Sensory Deficits, Normal Mood/Affect Skin: Normal Color, Warm/Dry; No Rash Progress/Results/Core Measures Results/Orders Lab Results Laboratory Tests Test 01/08/22 22:27 01/08/22 22:29 01/08/22 22:31 01/08/22 22:44 Range/Units White Blood Count 12.4 H 4.3-11.0 10^3/uL Red Blood Count 4.13 3.80-5.11 10^6/uL Hemoglobin 12.3 11.5-16.0 g/dL Hematocrit 37 35-52 % Mean Corpuscular Volume 90 80-99 fL Mean Corpuscular Hemoglobin 30 25-34 pg Mean Corpuscular Hemoglobin Concent 33 32-36 g/dL Red Cell Distribution Width 13.0 10.0-14.5 % Platelet Count 349 130-400 10^3/uL Mean Platelet Volume 9.2 9.0-12.2 fL Immature Granulocyte % (Auto) 1 % Neutrophils (%) (Auto) 66 42-75 % Lymphocytes (%) (Auto) 22 12-44 % Monocytes (%) (Auto) 8 0-12 % Eosinophils (%) (Auto) 3 0-10 % Basophils (%) (Auto) 1 0-10 % Neutrophils # (Auto) 8.2 H 1.8-7.8 10^3/uL Lymphocytes # (Auto) 2.7 1.0-4.0 10^3/uL Monocytes # (Auto) 1.0 0.0-1.0 10^3/uL Eosinophils # (Auto) 0.4 H 0.0-0.3 10^3/uL Basophils # (Auto) 0.1 0.0-0.1 10^3/uL Immature Granulocyte # (Auto) 0.1 0.0-0.1 10^3/uL Sodium Level 130 L 135-145 MMOL/L Potassium Level 3.9 3.6-5.0 MMOL/L Chloride Level 97 L 98-107 MMOL/L Carbon Dioxide Level 21 21-32 MMOL/L Anion Gap 12 5-14 MMOL/L Blood Urea Nitrogen 13 7-18 MG/DL Creatinine 0.95 0.60-1.30 MG/DL Estimat Glomerular Filtration Rate 61 BUN/Creatinine Ratio 14 Glucose Level 112 H 70-105 MG/DL Calcium Level 9.4 8.5-10.1 MG/DL Corrected Calcium 9.5 8.5-10.1 MG/DL Total Bilirubin 0.3 0.1-1.0 MG/DL Aspartate Amino Transf (AST/SGOT) 16 5-34 U/L Alanine Aminotransferase (ALT/SGPT) 12 0-55 U/L Alkaline Phosphatase 68 40-136 U/L C-Reactive Protein High Sensitivity 0.91 H 0.00-0.50 MG/DL Total Protein 6.8 6.4-8.2 GM/DL Albumin 3.9 3.2-4.5 GM/DL Influenza Type A (RT-PCR) Not Detected Not Detecte Influenza Type B (RT-PCR) Not Detected Not Detecte SARS-CoV-2 RNA (RT-PCR) Not Detected Not Detecte Lipase 31 8-78 U/L Urine Color YELLOW Urine Clarity CLEAR Urine pH 6.0 5-9 Urine Specific [place] <=1.005 1.016-1.022 Urine Protein NEGATIVE NEGATIVE Urine Glucose (UA) NEGATIVE NEGATIVE Urine Ketones NEGATIVE NEGATIVE Urine Nitrite NEGATIVE NEGATIVE Urine Bilirubin NEGATIVE NEGATIVE Urine Urobilinogen 0.2 < = 1.0 MG/DL Urine Leukocyte Esterase 1+ H NEGATIVE Urine RBC (Auto) NEGATIVE NEGATIVE Urine RBC NONE /HPF Urine WBC 5-10 H /HPF Urine Squamous Epithelial Cells 2-5 /HPF Urine Crystals NONE /LPF Urine Bacteria FEW H /HPF Urine Casts NONE /LPF Urine Mucus NEGATIVE /LPF Urine Culture Indicated YES Micro Results Microbiology 01/08/22 Urine Culture - Final, Complete Mixed Bacterial Dionna My Orders Orders - SPIKE NIX MD Ed Iv/Invasive Line Start (01/08/22 22:23) Cbc With Automated Diff (01/08/22 22:24) Comprehensive Metabolic Panel (01/08/22 22:24) Hs C Reactive Protein (01/08/22 22:24) Ua Culture If Indicated (01/08/22 22:24) Chest 1 View, Ap/Pa Only (01/08/22 22:24) Covid 19 Inhouse Test (01/08/22 22:24) Influenza A And B By Pcr (01/08/22 22:24) Lipase (01/08/22 22:28) Urine Culture (01/08/22 22:44) Azithromycin Tablet (Zithromax Tablet) (01/09/22 00:21) Nitrofurantoin Capsule,Macro (Macrobid C (01/09/22 00:21) Hydrocodone/Apap 5/325 Tablet (Lortab 5 (01/09/22 00:21) Vital Signs/I&O 01/08/22 22:16 Temp 36.6 Pulse 74 Resp 18 B/P (MAP) 161/92 (115) Pulse Ox 93 O2 Delivery Room Air Blood Pressure Mean: 115 Progress Progress Note : Progress Note Hydrocodone was given for pain due to NSAID allergy. Work-up revealed slight pyuria and possible RLL pneumonia. Patient was given azithromycin and macrobid. Discharge and Rx were handwritten due to [facility] downtime. Diagnostic Imaging Diagonstic Imaging: Xray Plain Films/CT/US/NM/MRI: chest Comments Chest x-ray viewed by me and report reviewed. See report below: NAME: AILEEN DUMONT [facility] REC#: [id number] PT STATUS: REG ER : 1940 PHYSICIAN: SPIKE NIX MD ADMIT DATE: 01/08/22/ER Signed Date of Exam:01/08/22 CHEST 1 VIEW, AP/PA ONLY INDICATION: Cough and congestion COMPARISON: 11/22/2021 FINDINGS: Pacemaker device is present. There is mild enlargement of the cardiac silhouette but no current findings to suggest edema or failure. There is no alveolar consolidation. There minimal blunting of the right costophrenic angle which could reflect a trace effusion. There is no pneumothorax. There has been prior right shoulder arthroplasty. IMPRESSION: 1. Mild prominence of the cardiac silhouette without current evidence of edema or failure. 2. No alveolar consolidation to suggest pneumonia. 3. Blunting of the right costophrenic angle may reflect atelectasis or trace effusion. Dictated by: Dictated on workstation # [id number] Dict: 01/08/22 2254 Trans: 01/08/22 2187 [facility] [id number] Interpreted by: MADISYN CAMERON MD Electronically signed by: MADISYN CAMERON MD 01/08/22 6292 Departure Impression Primary Impression: Right lower lobe pneumonia Qualified Codes: J18.9 - Pneumonia, unspecified organism Additional Impressions: UTI (urinary tract infection) Qualified Codes: N39.0 - Urinary tract infection, site not specified Chest wall pain Disposition: 01 HOME, SELF-CARE Condition: Improved Departure-Patient Inst. Decision time for Depature: 00:21 Referrals: BRAD HDEZ MD (PCP/Family) Primary Care Physician Copy Copies To 1: BRAD HDEZ MD Copies To 2: BERNICE CLINE JOSHUA T MD Jan 08, 2022 23:11
[2022-01-09] MEDS ORDERED: AZITHROMYCIN 250 MG TAB (ZITHROMAX) PO ONE (00:21)
[2022-01-09] MEDS ORDERED: HYDROcodone/APAP 5 MG/325 MG (LORTAB) TAB ONE (00:21)
[2022-01-09] MEDS ORDERED: NITROFURANTOIN 100 MG (MACROBID) CAPSULE PO ONE (00:21)
== END 2022-01-09 00:30 | disposition home or self-care (01) ==
LOC: EDUNIT# 22:15 → ER 22:16
DX: N39.0 Urinary tract infection, site not specified (principal); J18.1 Lobar pneumonia, unspecified organism; Z20.822 Contact with and (suspected) exposure to COVID-19
CPT/HCPCS: 36415; 71045; 80053; 81000; 83690; 85025; 86141; 87088; 87636; 99283

== ENCOUNTER → 2022-04-10 | Outpatient (CLI) | payer MEDICARE, MEDICAID ==
[~2022-04-10] MED LIST changes: -MOME0.242 IH; +MOME220A5 IH; +POTA-177 PO; -POTA10TA37 PO
[2022-04-10 12:59] LABS: HEMATOCRIT 38 % (35-52); HEMOGLOBIN 12.5 g/dL (11.5-16.0); MEAN CORPUSCULAR HEMOGLOBIN 28 pg (25-34); MEAN CORPUSCULAR HGB CONC 33 g/dL (32-36); MEAN CORPUSCULAR VOLUME 87 fL (80-99); MEAN PLATELET VOLUME 8.9 fL (9.0-12.2); PLATELET COUNT 434 10^3/uL (130-400); WHITE BLOOD COUNT 16.1 10^3/uL (4.3-11.0)
[2022-04-10 13:23] LABS: BILIRUBIN,TOTAL 0.5 MG/DL (0.1-1.0); CALCIUM 10.2 MG/DL (8.5-10.1); CREATININE SERUM 0.83 MG/DL (0.60-1.30); POTASSIUM 3.8 MMOL/L (3.6-5.0); TOTAL PROTEIN 7.4 GM/DL (6.4-8.2)
--- NOTE | 2022-04-10 13:26 | Diagnostic Imaging Report ---
Clinical Indication: Patient with swelling about left thigh. Patient head hurts all over has trouble walking. Left parotiditis. Exam: Axial Head CT without IV contrast with sagittal and coronal reformations. Axial Maxillofacial CT scan without IV contrast with sagittal and coronal reformations. Auto Exposure Controls were utilized during the CT exam to meet ALARA standards for radiation dose reduction. Comparison: Head CT without contrast and CT angiogram of the head/neck dated 11/22/2021. Findings: Head and maxillofacial CT: There is stable appearance of brain parenchyma with no interval acute cerebral infarct, intracranial hemorrhage, brain herniation or midline shift. There is stable brain parenchymal volume loss with the frontal lobes affected the most. There is no hydrocephalus. Basal cisterns are unremarkable. The extracranial soft tissue, skull, and orbits are unremarkable. There is moderate to large amounts mucosal thickening involving the left maxillary sinus. The bilateral ostiomeatal unit regions are patent. The paranasal sinuses are otherwise patent without significant mucosal thickening. Nasal septum is midline. There is paradoxical curvature of the left middle nasal turbinate. There is audra bullosa of the vertical lamella of the right middle nasal turbinate. There is no bony erosive or destructive process. Impression: 1: Stable CT scan of the brain with no evidence of interval acute intracranial process. 2: There is moderate to large amounts of mucosal thickening involving left maxillary sinus. Otherwise there is no other significant paranasal sinus disease. Dictated by: Dictated on workstation # [id number]
[2022-04-10 13:39] LABS: ERYTHROCYTE SEDIMENTATION RATE 24 MM/HR (0-30)
== END ==
LOC: RAD 13:15
PROVIDERS: ATTEND Physician Assistant
DX: K11.20 Sialoadenitis, unspecified (principal); J34.89 Other specified disorders of nose and nasal sinuses
CPT/HCPCS: 36415; 70450; 70486; 80053; 85027; 85652; 86141; 86735; 87798

== ENCOUNTER 2022-04-15 05:47 | Observation (INO) | payer MEDICARE, MEDICAID ==
[~2022-04-15] VITALS: Ht 162.6 cm; Wt 99.6 kg
[2022-04-15] MEDS ORDERED: fentaNYL INJ 100 MCG/2 ML AMP IVP ONE ×3 (06:30→08:00)
[2022-04-15 06:53] LABS: BASOPHILS # (AUTO) 0.1 10^3/uL (0.0-0.1); BASOPHILS % (AUTO) 0 % (0-10); EOSINOPHILS # (AUTO) 0.1 10^3/uL (0.0-0.3); EOSINOPHILS % (AUTO) 1 % (0-10); HEMATOCRIT 36 % (35-52); HEMOGLOBIN 11.9 g/dL (11.5-16.0); LYMPHOCYTES # (AUTO) 1.4 10^3/uL (1.0-4.0); LYMPHOCYTES % (AUTO) 8 % (12-44); MEAN CORPUSCULAR HEMOGLOBIN 28 pg (25-34); MEAN CORPUSCULAR HGB CONC 33 g/dL (32-36); MEAN CORPUSCULAR VOLUME 86 fL (80-99); MEAN PLATELET VOLUME 8.7 fL (9.0-12.2); MONOCYTES # (AUTO) 0.9 10^3/uL (0.0-1.0); MONOCYTES % (AUTO) 5 % (0-12); NEUTROPHILS # (AUTO) 15.9 10^3/uL (1.8-7.8); NEUTROPHILS % (AUTO) 85 % (42-75); PLATELET COUNT 482 10^3/uL (130-400); WHITE BLOOD COUNT 18.7 10^3/uL (4.3-11.0)
[2022-04-15 07:04] LABS: POTASSIUM 4.3 MMOL/L (3.6-5.0)
[2022-04-15 07:05] LABS: CALCIUM 10.1 MG/DL (8.5-10.1)
[2022-04-15 07:09] LABS: CREATININE SERUM 1.02 MG/DL (0.60-1.30)
[2022-04-15 07:13] LABS: BAND NEUTROPHILS 1 %; BASOPHILS % (MANUAL) 1 %; EOSINOPHILS % (MANUAL) 2 %; LYMPHOCYTES % (MANUAL) 6 %; MONOCYTES % (MANUAL) 5 %; NEUTROPHILS % (MANUAL) 85 %; RBC MORPH NORMAL
--- NOTE | 2022-04-15 07:27 | ED Fall/Injury ---
General Chief Complaint: Trauma-Non Activation Stated Complaint: FALL Nursing Triage Note: PT ARRIVAL TO ER VIA [facility] FROM HOME WITH COMPLAINT OF FALL RIGHT ANKLE/FOOT PAIN. PT STATES THAT SHE GOT UP TO PEE, WENT TO TURN ON LAMP AND FELL WHILE IN THE DARK. PT HAS SOME SWELLING TO RIGHT ANKLE AREA. NO OTHER COMPLAINTS. Source: patient, EMS, old records Exam Limitations: no limitations History of Present Illness Date Seen by Provider: Apr 15, 2022 Time Seen by Provider: 06:03 Initial Comments This is 81-year-old woman presents emergency room via EMS after having a fall in her home and injuring her right ankle. She reports her ankle and foot were beneath her when she fell. She denies striking her head or neck or having any head or neck pain. There was no loss of consciousness. She did not notice any prodrome prior to the fall. She does not know the exact mechanism of the fall but notes she fell in the dark while trying to get to the lamp. She is alert and oriented. There is disfigurement and bruising of the right ankle. Distal pulses, sensation, movement and capillary refill intact. She has atrial fibrillation and a pacemaker but is not anticoagulated. Patient has been unable to get up and bear weight on the right foot. Allergies and Home Medications Allergies Coded Allergies: Penicillins (Verified Allergy, Mild, 04/15/22) ketorolac (Verified Allergy, Mild, 04/15/22) morphine (Verified Allergy, Mild, pt has received Lortab in the past, 04/16/22) tetracycline (Verified Allergy, Mild, 04/15/22) paroxetine (Verified Allergy, Unknown, 04/15/22) Patient Home Medication List Home Medication List Reviewed: Yes Acetaminophen (Tylenol Extra Strength) 500 Mg Tablet, 1,000 MG PO TID, (Reported) Entered as Reported by: MARIELLA PALMA on 10/03/16 7496 Last Action: Reviewed Albuterol Sulfate (Albuterol Sulfate) 1.25 Mg/3 Ml Vial.neb, 3 ML NEB Q8H PRN for SHORTNESS OF BREATH, (Reported) Entered as Reported by: TERESA NAGEL on 04/15/22 1641 Last Action: Reviewed Amlodipine Besylate (Amlodipine Besylate) 10 Mg Tablet, 10 MG PO DAILY Prescribed by: TRACEE FLETCHER on 04/23/22 1046 Benzonatate (Benzonatate) 200 Mg Capsule, 200 MG PO TID PRN for COUGH, (Reported) Entered as Reported by: TERESA NAGEL on 04/15/221640 Last Action: Reviewed Calcium Carbonate/Vitamin D3 (Calcium 600 + Vit D 200 Tablet) 1 Each Tablet, 1 TAB PO BID, (Reported) Entered as Reported by: BEAU MELGAR on 07/13/17 160 Last Action: Reviewed Carvedilol (Carvedilol) 6.25 Mg Tablet, 6.25 MG PO BID Prescribed by: TRACEE FLETCHER on 04/23/22 104 Ergocalciferol (Vitamin D2) (Vitamin D2) 1,250 Mcg (37199 Unit) Capsule, 1,250 MCG PO MON, (Reported) Entered as Reported by: TERESA NAGEL on 04/15/221640 Last Action: Reviewed Fexofenadine/Pseudoephedrine (Fexofenadine-Pse ER 180-240 Tb) 1 Each Tab.er.24h, 1 EACH PO DAILY, (Reported) Entered as Reported by: DENNY HANLEY on 07/06/21 0502 Last Action: Reviewed Fluticasone Propionate (Fluticasone Propionate) 50 Mcg/Actuation [place].susp, 1 SPRAY NS BID PRN for CONGESTION, (Reported) Entered as Reported by: BEAU MELGAR on 07/13/17 160 Last Action: Reviewed Fluticasone/Vilanterol (Breo Ellipta 200-25 Mcg INH) 200 Mcg-25 Mcg/Dose Blst.w.dev, 1 PUFF INH DAILY, (Reported) Entered as Reported by: TERESA NAGEL on 04/15/221640 Last Action: Reviewed Furosemide (Furosemide) 20 Mg Tablet, 20 MG PO DAILY PRN for SWELLING, (Reported) Entered as Reported by: TERESA NAGEL on 04/15/221640 Last Action: Reviewed Hydrocodone Bit/Acetaminophen (HYDROcodone/APAP 7.5/325 TAB) 1 Ea Tablet, 1 EA PO Q4H PRN for PAIN-MODERATE (5-7) Prescribed by: TRACEE FLETCHER on 04/23/22 1047 Hydrocodone/Acetaminophen (Hydrocodone-Acetamin 7.5-325) 7.5 Mg-325 Mg Tablet, 1 EACH PO Q4H PRN for prn pain Prescribed by: LES HUGHES on 04/16/22 1133 Loperamide HCl (Loperamide) 2 Mg Capsule, 2-4 MG PO UD PRN for DIARRHEA, (Reported) Entered as Reported by: TERESA NAGEL on 04/15/221640 Last Action: Reviewed Lorazepam (Ativan) 0.5 Mg Tablet, 0.5 MG PO BID, (Reported) Entered as Reported by: TERESA NAGEL on 04/15/221640 Last Action: Reviewed Melatonin (Melatonin) 5 Mg Tablet, 5 MG PO HS, (Reported) Entered as Reported by: TERESA NAGEL on 04/15/221640 Last Action: Reviewed Mirtazapine (Mirtazapine) 15 Mg Tablet, 15 MG PO HS, (Reported) Entered as Reported by: DENNY HANLEY on 07/06/21501 Last Action: Reviewed Montelukast Sodium (Montelukast Sodium) 10 Mg Tablet, 10 MG PO DAILY, (Reported) Entered as Reported by: MARIELLA PALMA on 10/03/16 0753 Last Action: Reviewed Mupirocin (Mupirocin) 2 % Oint...g., 1 APPLIC TOP TID, (Reported) Entered as Reported by: TERESA NAGEL on 04/15/221640 Last Action: Reviewed Oxybutynin Chloride (Oxybutynin Chloride ER) 10 Mg Tab.er.24, 10 MG PO DAILY, (Reported) Entered as Reported by: TERESA NAGEL on 07/18/19 1004 Last Action: Reviewed Pantoprazole Sodium (Pantoprazole Sodium) 40 Mg Tablet.dr, 40 MG PO DAILY, (Reported) Entered as Reported by: DENNY HANLEY on 07/06/21501 Last Action: Reviewed Potassium Chloride (K-Tab ER) 10 Meq Tablet.er, 10 MEQ PO DAILY, (Reported) Entered as Reported by: TERESA NAGEL on 04/15/221640 Last Action: Reviewed Pravastatin Sodium (Pravastatin Sodium) 40 Mg Tablet, 40 MG PO HS, (Reported) Entered as Reported by: TERESA NAGEL on 04/15/221640 Last Action: Reviewed Propylene Glycol/Peg 400 (Systane 0.3-0.4% Eye Drops) 0.3 %-0.4 % Drops, 1-2 DROP OU UD PRN for DRY EYES, (Reported) Entered as Reported by: TERESA NAGEL on 04/15/22 1641 Last Action: Reviewed Quetiapine Fumarate (Quetiapine Fumarate) 100 Mg Tablet, 100 MG PO DAILY, (Reported) Entered as Reported by: TERESA NAGEL on 05/01/201335 Last Action: Reviewed Quetiapine Fumarate (Quetiapine Fumarate) 100 Mg Tablet, 50 MG PO HS, (Reported) Entered as Reported by: TERESA NAGEL on 05/01/20 133 Last Action: Reviewed Rivastigmine Tartrate (Rivastigmine) 1.5 Mg Capsule, 1.5 MG PO BID, (Reported) Entered as Reported by: KAYLEN JAMIL on 09/02/18 1106 Last Action: Reviewed Sodium Chloride (Sodium Chloride) 1 Gram Tab, 1 GM PO BID Prescribed by: TRACEE FLETCHER on 04/23/22 1046 Discontinued Medications Amlodipine Besylate (Amlodipine Besylate) 5 Mg Tablet, 5 MG PO DAILY, (Reported) Entered as Reported by: DENNY HANLEY on 07/06/21 0502 Last Action: Reviewed Carvedilol (Carvedilol) 3.125 Mg Tablet, 3.125 MG PO BID, (Reported) Entered as Reported by: TERESA NAGEL on 05/01/201335 Last Action: Reviewed Cephalexin (Cephalexin) 500 Mg Capsule, 500 MG PO QID, (Reported) Entered as Reported by: TERESA NAGEL on 04/15/22 164 Last Action: Reviewed Tramadol HCl (Tramadol HCl) 50 Mg Tablet, 100 MG PO BID, (Reported) Entered as Reported by: DENNY HANLEY on 07/06/21 0502 Last Action: Reviewed Review of Systems Review of Systems Constitutional: no symptoms reported Eyes: No Symptoms Reported Ears, Nose, Mouth, Throat: no symptoms reported Respiratory: no symptoms reported Cardiovascular: no symptoms reported Gastrointestinal: no symptoms reported Genitourinary: no symptoms reported Musculoskeletal: see HPI Skin: see HPI Psychiatric/Neurological: No Symptoms Reported Past Aihtcbn-Xyptvx-Fubnaa Hx Patient Social History Tobacco Use?: No Use of E-Cig and/or Vaping dev: No Substance use?: No Alcohol Use?: No Pt feels they are or have been: No Immunizations Up To Date Tetanus Booster (TDap): Unknown PED Vaccines UTD: Yes Influenza Vaccine Up-to-Date: No; Not Current First/Initial COVID19 Vaccinat: stated 'information is on file already" Second COVID19 Vaccination Timmy: stated 'information is on file already" Third COVID19 Vaccination Date: stated 'information is on file already" Seasonal Allergies Seasonal Allergies: No Past Medical History Surgery/Hospitalization HX: stated "information is on file already" Surgeries: Yes Abdominal, Appendectomy, Eye Surgery, Gallbladder, 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, Joint Replacement, Orthopedic, Pacemaker Respiratory: Yes COPD Currently Using CPAP: No Currently Using BIPAP: No Cardiac: Yes (Congestive heart failure with EF of 35 percent) Atrial Fibrillation, High Cholesterol, Hypertension Neurological: Yes Dementia 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 Disorders: Yes Female 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 Disorders: Denies, 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, 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 Sexually Transmitted Disease: No HIV/AIDS: No Genitourinary: No Gastrointestinal: Yes (BLEEDING ULCER X 3; PERFORATED ULCER 2006; 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) Gastrointestinal Bleed, Chronic Diarrhea, Polyps, Ulcer, Irritable Bowel Musculoskeletal: Yes Degenerate Disk Disease, Arthritis, Chronic Back Pain, Fractures Endocrine: No HEENT: No Cataract Loss of Vision: Denies Hearing Impairment: Hard of Hearing Cancer: No Psychosocial: Yes Anxiety Integumentary: No Blood Disorders: Yes (BILATERAL P.E.'S 04/2018) Adverse Reaction/Blood Tranf: No Family Medical History Blood clots (sister had a blood clot in the brain which caused her  in 2010) Physical Exam Vital Signs Capillary Refill : Less Than 3 Seconds Height, Weight, BMI Height: 5'3.00" Weight: 150lbs. 0.0oz. 68.633124bd; 36.00 BMI Method:Stated General Appearance: WD/WN, mild distress HEENT: PERRL/EOMI, normal ENT inspection, other (Oropharynx somewhat dry) Neck: normal inspection Cardiovascular: regular rate, rhythm, no edema, no murmur Respiratory: lungs clear, normal breath sounds, no respiratory distress Gastrointestinal: normal bowel sounds, non tender, soft Extremities: pelvis stable, other (Tenderness over both malleoli of the right ankle and the lateral right foot. Pedal pulse, capillary refill, sensation, and movement of the toes intact. 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 Ack. Understanding Agreement on procedure with pt: Yes Breath Sounds per Auscultation: Clear Heart Sounds per Auscultation: Regular Airway Exam: Mouth opens >2 fingers Sedation Adminstration Time: 08:45 Total Time spent in CS 15 Ankle reduced and splint applied. No complications. Re-examination Time: 09:00 Splinting and Joint Reduction : Pre-Proc Neuro Vasc Exam: normal Post-Proc Neuro Vasc Exam: normal post joint reduction film: displacement of fracture improved Hand-Made Type: orthoglass Splint Application: Short Leg (three way splint) Progress/Results/Core Measures Results/Orders Lab Results Laboratory Tests Test 04/15/22 06:47 04/15/22 07:59 Range/Units White Blood Count 18.7 H 4.3-11.0 10^3/uL Red Blood Count 4.21 3.80-5.11 10^6/uL Hemoglobin 11.9 11.5-16.0 g/dL Hematocrit 36 35-52 % Mean Corpuscular Volume 86 80-99 fL Mean Corpuscular Hemoglobin 28 25-34 pg Mean Corpuscular Hemoglobin Concent 33 32-36 g/dL Red Cell Distribution Width 14.2 10.0-14.5 % Platelet Count 482 H 130-400 10^3/uL Mean Platelet Volume 8.7 L 9.0-12.2 fL Immature Granulocyte % (Auto) 1 % Neutrophils (%) (Auto) 85 H 42-75 % Lymphocytes (%) (Auto) 8 L 12-44 % Monocytes (%) (Auto) 5 0-12 % Eosinophils (%) (Auto) 1 0-10 % Basophils (%) (Auto) 0 0-10 % Neutrophils # (Auto) 15.9 H 1.8-7.8 10^3/uL Lymphocytes # (Auto) 1.4 1.0-4.0 10^3/uL Monocytes # (Auto) 0.9 0.0-1.0 10^3/uL Eosinophils # (Auto) 0.1 0.0-0.3 10^3/uL Basophils # (Auto) 0.1 0.0-0.1 10^3/uL Immature Granulocyte # (Auto) 0.2 H 0.0-0.1 10^3/uL Neutrophils % (Manual) 85 % Lymphocytes % (Manual) 6 % Monocytes % (Manual) 5 % Eosinophils % (Manual) 2 % Basophils % (Manual) 1 % Band Neutrophils 1 % Blood Morphology Comment NORMAL Sodium Level 131 L 135-145 MMOL/L Potassium Level 4.3 3.6-5.0 MMOL/L Chloride Level 99 98-107 MMOL/L Carbon Dioxide Level 19 L 21-32 MMOL/L Anion Gap 13 5-14 MMOL/L Blood Urea Nitrogen 12 7-18 MG/DL Creatinine 1.02 0.60-1.30 MG/DL Estimat Glomerular Filtration Rate 56 BUN/Creatinine Ratio 12 Glucose Level 138 H 70-105 MG/DL Calcium Level 10.1 8.5-10.1 MG/DL Magnesium Level 1.8 1.6-2.4 MG/DL C-Reactive Protein High Sensitivity 3.72 H 0.00-0.50 MG/DL B-Type Natriuretic Peptide 69.6 <100.0 PG/ML Urine Color YELLOW Urine Clarity CLEAR Urine pH 6.5 5-9 Urine Specific [place] <=1.005 1.016-1.022 Urine Protein NEGATIVE NEGATIVE Urine Glucose (UA) NEGATIVE NEGATIVE Urine Ketones NEGATIVE NEGATIVE Urine Nitrite NEGATIVE NEGATIVE Urine Bilirubin NEGATIVE NEGATIVE Urine Urobilinogen 0.2 < = 1.0 MG/DL Urine Leukocyte Esterase NEGATIVE NEGATIVE Urine RBC (Auto) NEGATIVE NEGATIVE Urine RBC NONE /HPF Urine WBC RARE /HPF Urine Squamous Epithelial Cells RARE /HPF Urine Crystals NONE /LPF Urine Bacteria NEGATIVE /HPF Urine Casts NONE /LPF Urine Mucus NEGATIVE /LPF Urine Culture Indicated NO My Orders Orders - SPIKE NIX MD Fentanyl Inj (Sublimaze Injection) (04/15/22 06:30) Ed Iv/Invasive Line Start (04/15/22 06:18) Basic Metabolic Panel (04/15/22 06:18) Cbc With Automated Diff (04/15/22 06:18) Ua Culture If Indicated (04/15/22 06:18) Foot, Right, 3 View (04/15/22 06:18) Ankle, Right, 3 Views (04/15/22 06:18) Manual Differential (04/15/22 06:47) Fentanyl Inj (Sublimaze Injection) (04/15/22 07:15) Hs C Reactive Protein (04/15/22 07:16) [place] Cath (04/15/22 07:16) Ekg Tracing (04/15/22 07:27) Monitor-Rhythm Ecg Trace Only (04/15/22 07:27) Magnesium (04/15/22 07:27) Fentanyl Inj (Sublimaze Injection) (04/15/22 08:00) Midazolam Injection (Versed Injection) (04/15/22 08:00) Chest 1 View, Ap/Pa Only (04/15/22 08:17) Ankle, Right, 3 Views (04/15/22 08:17) Ed Admission (Communication) (04/15/22 10:36) Medications Given in ED Vital Signs/I&O Blood Pressure Mean: 119 Progress Progress Note : Progress Note Pain was treated with fentanyl. Displaced trimalleolar fracture was identified. I discussed the situation with Dr. Horn who will be able to operate tomorrow. Consideration for discharge home with prompt outpatient follow-up was given. Patient does have support at home with family and a wheelchair. However, patient does not feel comfortable or confident returning home and is fearful of her ability to function without further falls. This is a rather unstable fracture and she would definitely benefit from inpatient care until surgery is performed for internal fixation. The ankle was reduced and splinted with a three-way splint and during conscious sedation with Versed and fentanyl. Patient tolerated the procedure well. She was neurovascularly intact after the procedure. Admission was eccepted by Dr. Ortiz with Dr. Horn consulted for orthopedics. I discussed CODE STATUS with patient and family and she is to be full code. Family was provided updates with plan of care. Patient would like her daughter Courtney to be the primary contact. Initial ECG Impression Date: Apr 15, 2022 Initial ECG Impression Time: 07:37 Initial ECG Rate: 75 Comment Ventricular paced rhythm. No ischemic ST elevation or depression appreciated. Diagnostic Imaging Diagonstic Imaging: Xray Plain Films/CT/US/NM/MRI: ankle (and right foot) Comments NAME: AILEEN DUMONT REC#: [id number] PT STATUS: REG ER : 1940 PHYSICIAN: SPIKE NIX MD ADMIT DATE: 04/15/22/ER Signed Date of Exam:04/15/22 ANKLE, RIGHT, 3 VIEWS EXAMINATION: Right foot radiographs, 3 views. Right ankle radiographs, 3 views. COMPARISON: None. HISTORY: 81-year-old female, right foot and ankle pain. FINDINGS: There is a transversely oriented significantly displaced fracture through the base of the medial malleolus. The medial malleolar fracture fragment is displaced laterally by 1.5 cm. There is also an obliquely oriented displaced distal fibular fracture extending upwards from the level of the tibial plafond. There are displaced fracture fragments adjacent to the posterior aspect of the distal tibia which may reflect a displaced posterior malleolus fracture. There is a calcaneal heel spur. There is minimal degenerative type enthesopathy at the Achilles tendon insertion. There is abnormal tilt of the talar dome relative to the tibial plafond and potential direct contact of the distal tibia with the talar dome seen on image 1 on the dedicated ankle radiographs series. 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 There is no additional identified acute fracture specifically the right foot. IMPRESSION: 1. Significantly displaced transversely oriented medial malleolar fracture as above. 2. Displaced fracture of the distal fibula extending upwards from the level of the tibial plafond. 3. Probable displaced posterior malleolus fracture. 4. Abnormal tilt of the talar dome relative to the tibial plafond and without eugenio tibiotalar dislocation. Dictated by: Dictated on workstation # [id number] Dict: 04/15/22720 Trans: 04/15/22907 [facility] [id number] Interpreted by: ZEINAB MORENO MD Electronically signed by: ZEINAB MORENO MD 04/15/22907 Diagonstic Imaging: Xray Plain Films/CT/US/NM/MRI: ankle Comments NAME: AILEEN DUMONT [facility] REC#: [id number] PT STATUS: ADM Tri : 1940 PHYSICIAN: SPIKE NIX MD ADMIT DATE: 04/15/22 Signed Date of Exam:04/15/22 ANKLE, RIGHT, 3 VIEWS CLINICAL INDICATION: Post reduction. EXAM: X-ray of the right ankle, 3 views. COMPARISON: X-ray of the right ankle dated 04/10/2022 FINDINGS AND IMPRESSION: There is interval reduction changes of the medial and lateral malleolar fractures which has improved anatomic alignment. There is probable posterior malleolar fracture. There is cast material overlying the right ankle. Dictated by: Dictated on workstation # [id number] Dict: 04/15/22942 Trans: 04/15/227 ENRI[place] [id number] Interpreted by: PIPPA MALLOY MD Electronically signed by: PIPPA MALLOY MD 04/15/221716 Diagonstic Imaging: Xray Plain Films/CT/US/NM/MRI: chest Comments NAME: AILEEN DUMONT [facility] REC#: [id number] PT STATUS: ADM Tri : 1940 PHYSICIAN: SPIKE NIX MD ADMIT DATE: 04/15/22 Signed Date of Exam:04/15/22 CHEST 1 VIEW, AP/PA ONLY INDICATION: Ankle fracture, preop. Frontal chest obtained at 9:12 a.m. and compared with 01/08/2022. Heart is mildly enlarged. There is a prominent hiatal hernia. There is a pacemaker device in place which is unchanged. There is no focal infiltrate or pneumothorax or pleural fluid. IMPRESSION: Cardiomegaly with hiatal hernia. No focal infiltrate or pneumothorax or pleural fluid. Dictated by: Dictated on workstation # [id number] Dict: 04/15/[id number] Trans: 04/15/22 1125 CVB [id number] Interpreted by: RHONDA OROZCO MD Electronically signed by: RHONDA OROZCO MD 04/15/22 1125 Departure Communication (Admissions) Time/Spoke to Admitting Phy: 10:28 Dr. Ortiz Time/Spoke to Consulting Phy: 07:30 Dr. Horn Impression Primary Impression: Closed displaced trimalleolar fracture of right ankle Qualified Codes: S82.851A - Displaced trimalleolar fracture of right lower leg, initial encounter for closed fracture Additional Impression: Fall on same level Qualified Codes: W18.30XA - Fall on same level, unspecified, initial encounter Disposition: ADMITTED INPATIENT Condition: Improved Admissions Decision to Admit Reason: Admit from ER (Trauma) Decision to Admit/Date: Apr 15, 2022 Time/Decision to Admit Time: 07:30 Departure-Patient Inst. Referrals: BRAD HDEZ MD (PCP/Family) Primary Care Physician Scripts Sodium Chloride (Sodium Chloride) 1 Gram Tab 1 GM PO BID, #30 TAB Prov: TRACEE FLETCHER MD 04/23/22 Hydrocodone Bit/Acetaminophen (HYDROcodone/APAP 7.5/325 TAB) 1 Ea Tablet 1 EA PO Q4H PRN for PAIN-MODERATE (5-7), #20 TAB Prov: TRACEE FLETCHER MD 04/23/22 Amlodipine Besylate (Amlodipine Besylate) 10 Mg Tablet 10 MG PO DAILY, #30 TAB Prov: TRACEE FLETCHER MD 04/23/22 Carvedilol (Carvedilol) 6.25 Mg Tablet 6.25 MG PO BID, #60 TAB Prov: TRACEE FLETCHER MD 04/23/22 Hydrocodone/Acetaminophen (Hydrocodone-Acetamin 7.5-325) 7.5 Mg-325 Mg Tablet 1 EACH PO Q4H PRN for prn pain for 7 Days, #30 TAB 0 Refills Prov: LES HUGHES 04/16/22 Copy Copies To 1: BRAD HDEZ MD Copies To 2: DARCI HORN MD, JOSHUA T MD Apr 15, 2022 07:27
[2022-04-15 07:44] LABS: MAGNESIUM 1.8 MG/DL (1.6-2.4)
--- NOTE | 2022-04-15 07:58 | Diagnostic Imaging Report ---
EXAMINATION: Right foot radiographs, 3 views. Right ankle radiographs, 3 views. COMPARISON: None. HISTORY: 81-year-old female, right foot and ankle pain. FINDINGS: There is a transversely oriented significantly displaced fracture through the base of the medial malleolus. The medial malleolar fracture fragment is displaced laterally by 1.5 cm. There is also an obliquely oriented displaced distal fibular fracture extending upwards from the level of the tibial plafond. There are displaced fracture fragments adjacent to the posterior aspect of the distal tibia which may reflect a displaced posterior malleolus fracture. There is a calcaneal heel spur. There is minimal degenerative type enthesopathy at the Achilles tendon insertion. There is abnormal tilt of the talar dome relative to the tibial plafond and potential direct contact of the distal tibia with the talar dome seen on image 1 on the dedicated ankle radiographs series. 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 There is no additional identified acute fracture specifically the right foot. IMPRESSION: 1. Significantly displaced transversely oriented medial malleolar fracture as above. 2. Displaced fracture of the distal fibula extending upwards from the level of the tibial plafond. 3. Probable displaced posterior malleolus fracture. 4. Abnormal tilt of the talar dome relative to the tibial plafond and without eugenio tibiotalar dislocation. Dictated by: Dictated on workstation # [id number]
[2022-04-15] MEDS ORDERED: MIDAZOLAM 5 MG/5 ML (VERSED) VIAL IVP ONE (08:00)
[2022-04-15 08:06] LABS: BILIRUBIN,URINE NEGATIVE (NEGATIVE); CLARITY,URINE CLEAR; COLOR,URINE YELLOW; GLUCOSE, URINE (UA) NEGATIVE (NEGATIVE); KETONES,URINE NEGATIVE (NEGATIVE); LEUKOCYTE ESTERASE ,URINE NEGATIVE (NEGATIVE); NITRITE,URINE NEGATIVE (NEGATIVE); PH,URINE 6.5 (5-9); PROTEIN,URINE NEGATIVE (NEGATIVE)
[2022-04-15 08:15] LABS: BACTERIA,URINE NEGATIVE /HPF; SQUAMOUS EPITHELIAL CELL,UR RARE /HPF; WBC,URINE RARE /HPF
--- NOTE | 2022-04-15 09:44 | Diagnostic Imaging Report ---
INDICATION: Ankle fracture, preop. Frontal chest obtained at 9:12 a.m. and compared with 01/08/2022. Heart is mildly enlarged. There is a prominent hiatal hernia. There is a pacemaker device in place which is unchanged. There is no focal infiltrate or pneumothorax or pleural fluid. IMPRESSION: Cardiomegaly with hiatal hernia. No focal infiltrate or pneumothorax or pleural fluid. Dictated by: Dictated on workstation # [id number]
--- NOTE | 2022-04-15 09:53 | Diagnostic Imaging Report ---
CLINICAL INDICATION: Post reduction. EXAM: X-ray of the right ankle, 3 views. COMPARISON: X-ray of the right ankle dated 04/10/2022 FINDINGS AND IMPRESSION: There is interval reduction changes of the medial and lateral malleolar fractures which has improved anatomic alignment. There is probable posterior malleolar fracture. There is cast material overlying the right ankle. Dictated by: Dictated on workstation # [id number]
[2022-04-15] MEDS ORDERED: MELATONIN 3 MG TABLET PO PRN (11:45)
[2022-04-15] MEDS ORDERED: polyethylene glycoL POWDER 17 GM (MIRALAX) PACK PO PRN (11:45)
[2022-04-15] MEDS ORDERED: LACTULOSE SYRUP 10GM/15ML (ENULOSE) 30ML UDC PO PRN (11:45)
[2022-04-15] MEDS ORDERED: ANTACID SUSP 30 ML UDC (MYLANTA) PO PRN (11:45)
[2022-04-15] MEDS ORDERED: BISACODYL 10 MG SUPP (DULCOLAX) PR PRN (11:45)
[2022-04-15] MEDS ORDERED: MILK OF MAGNESIA 400 MG/5 ML 30 ML UDC PO PRN (11:45)
[2022-04-15] MEDS ORDERED: ONDANSETRON 4 MG/2 ML (SDV) Z0FRAN IV PRN (11:45)
[2022-04-15] MEDS ORDERED: ONDANSETRON 4 MG (ZOFRAN) ORAL DISSOLVE TAB PO PRN (11:45)
[2022-04-15] MEDS ORDERED: CALCIUM CARBONATE 500 MG (TUMS) TAB.CHEW PO PRN (11:45)
[2022-04-15 12:15] VITALS: BP 170/84
--- NOTE | 2022-04-15 12:35 | History & Physical-Hospitalist ---
ISAMARCHUNGBECKY 04/15/22 1235: History of Present Illness HPI/Chief Complaint Vane Correia is a 81y/o F w/ a PMH of Afib w/ pacemaker, COPD, HTN, HLD, GI bleed who is being seen for right ankle pain. Pt reports that she fell this morning when she was getting out of bed and going to turn on a lamp. Her right foot got caught underneath her when she fell. Denies having any dizziness before the fall and states that "she just fell". Says that after the fall that she was unable to get up off the floor and had to yell for her daughter to come help her. EMS was called and pt was then transported to the ER. There she was found to have a closed displaced trimalleolar fracture. The fracture was reduced in the ER. Currently pt reports that pain is a 7-8/10. The pain increases w/ movement and when she gets pain medication the pain does decrease. Able to feel sensation in toes on right foot. Denies that she hit her head when she fell and does not have any head or neck pain. She does endorse a history of falls. Denies having any other concerns when asked. Source: patient Exam Limitations: no limitations Date Seen 04/15/22 Time Seen by a Provider: 11:31 Attending Physician Romeo Kent MD PCP Admitting Physician: Loni Noguera MD Attending Physician: Loni Noguera MD Referring Physician Date of Admission Apr 15, 2022 at 10:37 Home Medications & Allergies Home Medications Reviewed patient Home Medication Reconciliation performed by pharmacy medication reconciliations electroencephalograph technician and/or nursing. Patients Allergies have been reviewed. Allergies Allergies Coded Allergies Penicillins (Verified Allergy, Mild, 04/15/22) ketorolac (Verified Allergy, Mild, 04/15/22) morphine (Verified Allergy, Mild, 04/15/22) tetracycline (Verified Allergy, Mild, 04/15/22) paroxetine (Verified Allergy, Unknown, 04/15/22) Past Zzgrsqr-Cnisix-Krvgrb Hx Patient Social History Marrital Status: single Living Status: lives with 2 of her daughters Employed/Student: retired Tobacco Use?: No Use of E-Cig and/or Vaping dev: No Substance use?: No Alcohol Use?: No Pt feels they are or have been: No Immunizations Up To Date Date of Influenza Vaccine: Mar 27, 2020 First/Initial COVID19 Vaccinat: stated 'information is on file already" Second COVID19 Vaccination Timmy: stated 'information is on file already" Tetanus Booster (TDap): Unknown PED Vaccines UTD: Yes Date of Pneumonia Vaccine: Feb 10, 2015 Seasonal Allergies Seasonal Allergies: No Current Status Advance Directives: No Primary Language: Divehi Preferred Spoken Language: Divehi Implanted or Applied Medical D: None Past Medical History Surgeries: Abdominal, Appendectomy, Eye Surgery, Gallbladder, 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, Joint Replacement, Orthopedic, Pacemaker COPD Currently Using CPAP: No Currently Using BIPAP: No Atrial Fibrillation, High Cholesterol, Hypertension 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, Menopausal Sexually Transmitted Disease: No HIV/AIDS: No Gastrointestinal Bleed, Chronic Diarrhea, Polyps, Ulcer, Irritable Bowel Degenerate Disk Disease, Arthritis, Chronic Back Pain, Fractures Cataract Loss of Vision: Denies Hearing Impairment: Hard of Hearing Anxiety Blood Disorders: Yes (BILATERAL P.E.'S 04/2018) Adverse Reaction/Blood Tranf: No Family Medical History Blood clots (sister had a blood clot in the brain which caused her  in 2010) Review of Systems Constitutional: No chills, No fever EENTM: No blurred vision, No double vision Respiratory: cough (chronic); No short of breath Cardiovascular: No chest pain, No palpitations Gastrointestinal: No abdominal pain, No hematemesis, No nausea, No vomiting Genitourinary: No dysuria, No frequency, No hematuria Musculoskeletal: back pain (chronic), joint pain (rt ankle) Psychiatric/Neurological: Denies Headache, Denies Numbness, Denies Paresthesia Physical Exam Physical Exam Vital Signs Vital Signs - First Documented 04/15/22 04/15/22 05:55 08:44 Temp 36.1 Pulse 72 Resp 20 B/P (MAP) 134/112 (119) Pulse Ox 96 O2 Delivery Room Air O2 Flow Rate 4.00 Capillary Refill : Less Than 3 Seconds Height, Weight, BMI Height: 5'3.00" Weight: 150lbs. 0.0oz. [id number]; 36.00 BMI Method:Stated General Appearance: No Apparent Distress, WD/WN HEENT: PERRL/EOMI; No Photophobia Respiratory: Chest Non Tender, Lungs Clear, Normal Breath Sounds, No Accessory Muscle Use, No Respiratory Distress Cardiovascular: Regular Rate, Rhythm, No Murmur, Normal Peripheral Pulses Gastrointestinal: Non Tender, Soft Extremity: Normal Capillary Refill, Other (rt leg is wrapped and splinted, pain w/ movement) Neurologic/Psychiatric: Alert, Oriented x3, Normal Mood/Affect Skin: Normal Color, Warm/Dry Results Results/Procedures Labs Laboratory Tests 04/15/22 06:47 Patient resulted labs reviewed. Assessment/Plan Admission Diagnosis Closed displaced trimalleolar fracture of rt ankle -XR of rt foot and ankle done showing fracture -rt ankle reduced in ER -Pt will be having surgery tomorrow w/ Dr. Horn -Pain control -NPO after midnight -Monitor for signs of vascular or neurologic compromise of right foot HTN HLD CHF -Continue home medications COPD -Continue home medications Hyponatremia- chronic - Na of 131 today -Reviewing hx her normal seems to be around 130 Leukocytosis -WBC of 18.7 -UA and CXR not concerning -Pt denies any fevers, SIRS not meet -Continue to monitor for signs of infections DVT prophylaxis: SCDs Code status: Full code Diet: Low sodium and NPO after midnight LONI NOGUERA MD 04/15/22 1721: Past Hgtlfgc-Mmqrry-Qrswwa Hx Family Medical History Blood clots (sister had a blood clot in the brain which caused her  in 2010) Results Results/Procedures Imaging: Reviewed Imaging Report Assessment/Plan Admission Diagnosis Admission Status: Observation Assessment and Plan Admitted with ankle fracture. Ortho consulted, planning for surgery tomorrow. Chest xray with no acute abnormalities. Leukocytosis likely reactive. RCRI 1 (history of CHF), BNP within normal limits, no further evaluation indicated. Moderate risk patient, moderate risk surgery. Diagnosis/Problems Diagnosis/Problems (1) Closed displaced trimalleolar fracture of right ankle Qualifiers: Encounter type: initial encounter Qualified Codes: S82.851A - Displaced t rimalleolar fracture of right lower leg, initial encounter for closed fracture (2) Fall on same level Status: Acute Qualifiers: Encounter type: initial encounter Qualified Codes: W18.30XA - Fall on same level, unspecified, initial encounter (3) Hyponatremia Status: Chronic (4) HTN (hypertension) Status: Chronic (5) COPD (chronic obstructive pulmonary disease) Status: Chronic (6) HLD (hyperlipidemia) Status: Chronic (7) CAD (coronary artery disease) Status: Chronic (8) CHF (congestive heart failure) Status: Chronic Supervisory-Addendum Brief Verification & Attestation Participated in pt care: history, MDM, physical Personally performed: exam, history, MDM, supervision of care Care discussed with: Medical Student Procedures: n/a Results interpretation: Verified all documentation A medical student performed and documented this service in my presence. I re viewed and verified all information documented by the medical student and made modifications to such information, when appropriate. I personally performed the physical exam and medical decision making. BECKY LUNA Apr 15, 2022 12:35 LONI NOGUERA MD Apr 15, 2022 17:21
[2022-04-15] MEDS: ENOXAPARIN 40 MG/0.4 ML (LOVENOX) SYR SC SCH (12:51)
[2022-04-15] MEDS: fentaNYL INJ 100 MCG/2 ML AMP IVP PRN ×3 (13:11→23:02)
[2022-04-15 16:03] VITALS: BP 176/76
[2022-04-15] MEDS ORDERED: BENZ200C51 PO (16:41)
[2022-04-15] MEDS ORDERED: LOPE2CAP PO (16:41)
[2022-04-15] MEDS ORDERED: PROP15DR OU (16:41)
[2022-04-15] MEDS ORDERED: ALBU1.25 NEB (16:41)
[2022-04-15] MEDS ORDERED: CEPH500C PO (16:41)
[2022-04-15] MEDS ORDERED: MUPI22OI2 TOP (16:41)
[2022-04-15] MEDS ORDERED: FURO20TA4 PO (16:41)
[2022-04-15] MEDS ORDERED: POTA10TA PO (16:41)
[2022-04-15] MEDS ORDERED: ERGO1250 PO (16:41)
[2022-04-15] MEDS ORDERED: MELA5TAB14 PO (16:41)
[2022-04-15] MEDS ORDERED: PRAV40TA2 PO (16:41)
[2022-04-15] MEDS ORDERED: FLUT1BLS INH (16:41)
[2022-04-15] MEDS ORDERED: LORA-404 PO (16:41)
[2022-04-15] MEDS: RIVASTIGMINE 1.5 MG (EXELON) CAP PO SCH (18:11)
[2022-04-15 19:25] VITALS: BP 195/88
[2022-04-15] MEDS: MONTELUKAST 10 MG (SINGULAIR) TAB PO SCH (20:56)
[2022-04-15] MEDS: LORazepam 0.5 MG (ATIVAN) TABLET PO PRN (20:56)
[2022-04-15] MEDS: QUEtiapine 25 MG (SEROquel) TAB IMMEDIATE RELEASE PO SCH (20:56)
[2022-04-15] MEDS: OXYBUTYNIN (DITROPAN) 5 MG TAB PO SCH (20:56)
[2022-04-15] MEDS: MIRTAZAPINE 15 MG (REMERON) TAB PO SCH (20:56)
[2022-04-15] MEDS: DOCUSATE SODIUM 100 MG (COLACE) CAP PO SCH (20:56)
[2022-04-15] MEDS: SENNOSIDES 8.6 MG (SENOKOT) TAB PO SCH (20:56)
[2022-04-15 23:45] VITALS: BP 152/72
[2022-04-16] VITALS (13 sets, daily range): BP systolic 125–191; BP diastolic 66–89
[2022-04-16] MEDS: fentaNYL INJ 100 MCG/2 ML AMP IVP PRN (05:37)
[2022-04-16] MEDS: hydrALAZINE (APESOLINE) 20 MG/ML VIAL IV PRN (07:43)
[2022-04-16] MEDS ORDERED: FLUTICASONE/VILANTEROL 200 MCG 14'S (BREO) IH SCH (08:00)
[2022-04-16 08:09] LABS: BASOPHILS # (AUTO) 0.1 10^3/uL (0.0-0.1); BASOPHILS % (AUTO) 0 % (0-10); EOSINOPHILS # (AUTO) 0.2 10^3/uL (0.0-0.3); EOSINOPHILS % (AUTO) 1 % (0-10); HEMATOCRIT 36 % (35-52); HEMOGLOBIN 11.9 g/dL (11.5-16.0); LYMPHOCYTES # (AUTO) 2.1 10^3/uL (1.0-4.0); LYMPHOCYTES % (AUTO) 11 % (12-44); MEAN CORPUSCULAR HEMOGLOBIN 28 pg (25-34); MEAN CORPUSCULAR HGB CONC 33 g/dL (32-36); MEAN CORPUSCULAR VOLUME 85 fL (80-99); MEAN PLATELET VOLUME 8.4 fL (9.0-12.2); MONOCYTES # (AUTO) 1.4 10^3/uL (0.0-1.0); MONOCYTES % (AUTO) 7 % (0-12); NEUTROPHILS # (AUTO) 15.1 10^3/uL (1.8-7.8); NEUTROPHILS % (AUTO) 80 % (42-75); PLATELET COUNT 522 10^3/uL (130-400)
[2022-04-16 08:40] LABS: CREATININE SERUM 0.83 MG/DL (0.60-1.30); POTASSIUM 4.1 MMOL/L (3.6-5.0)
[2022-04-16] MEDS: RIVASTIGMINE 1.5 MG (EXELON) CAP PO SCH ×2 (09:57→18:28)
--- NOTE | 2022-04-16 10:17 | Physical Therapy Progress Note ---
Therapy Progress Note Order for evaluation received. Nurse states patient is not having surgery until sometime this afternoon. Will check back late afternoon or in the morning to start PT. REUBEN SEVERINO PT Apr 16, 2022 10:17
[2022-04-16] MEDS: LORazepam 0.5 MG (ATIVAN) TABLET PO PRN (10:31)
[2022-04-16] MEDS: SENNOSIDES 8.6 MG (SENOKOT) TAB PO SCH ×2 (10:32→20:55)
[2022-04-16] MEDS: FLUTICASONE NASAL SPRAY (FLONASE) 16 GM BTL NS SCH (10:32)
[2022-04-16] MEDS ORDERED: LACTATED RINGERS 1,000 ML IV PRN (10:45)
--- NOTE | 2022-04-16 10:45 | Progress Note-Pre Operative ---
Pre-Operative Progress Note Date of Available H&P: Apr 15, 2022 Date H&P Reviewed: Apr 16, 2022 Time H&P Reviewed: 07:11 Changes from last HP none Pre-Operative Diagnosis: right trimalleolar ankle fracture DARCI DAVID MD Apr 16, 2022 10:45
--- NOTE | 2022-04-16 10:46 | Progress Note-Post Operative ---
Post-Operative Progess Note Surgeon (s)/Dramatic Agent (s) Surgeon DARCI DAVID MD Dramatic Agent: Ramon Smith Pre-Operative Diagnosis right trimalleolar ankle fracture Post-Operative Diagnosis right trimalleolar ankle fracture Procedure & Operative Findings Date of Procedure 04/16/22 Procedure Performed/Findings ORIF right medial and lateral malleoli Anesthesia Type GETA Estimated Blood Loss Estimated blood loss (mL): minimal Specimens/Packing Specimens Removed none Packing: none DARCI DAVID MD Apr 16, 2022 10:46
--- NOTE | 2022-04-16 11:22 | Progress Note - Hospitalist ---
BECKY LUNA 04/16/22 1122: Subjective HPI/CC On Admission Date Seen by Provider: Apr 16, 2022 Time Seen by Provider: 09:01 Vane Correia is a 81y/o F w/ a PMH of Afib w/ pacemaker, COPD, HTN, HLD, GI bleed who is being seen for right ankle pain. Pt reports that she fell this morning when she was getting out of bed and going to turn on a lamp. Her right foot got caught underneath her when she fell. Denies having any dizziness before the fall and states that "she just fell". Says that after the fall that she was unable to get up off the floor and had to yell for her daughter to come help her. EMS was called and pt was then transported to the ER. There she was found to have a closed displaced trimalleolar fracture. The fracture was reduced in the ER. Currently pt reports that pain is a 7-8/10. The pain increases w/ movement and when she gets pain medication the pain does decrease. Able to feel sensation in toes on right foot. Denies that she hit her head when she fell and does not have any head or neck pain. She does endorse a history of falls. Denies having any other concerns when asked. Subjective/Events-last exam Pt reports that she is still having right ankle pain. Rates her pain as 8-9/10. Says that the pain does improve when she gets her pain medication. Says that she is currently fatigued. Complaining of a headache. Endorses being anxious about her upcoming surgery today but other has no other concerns when asked Review of Systems General: No Chills; Night Sweats; No Other (fever) HEENT: Head Aches; No Visual Changes Pulmonary: No Dyspnea; Cough Cardiovascular: No: Chest Pain, Palpitations Gastrointestinal: No: Nausea, Vomiting, Abdominal Pain Musculoskeletal: foot pain (rt); No: neck pain, back pain Neurological: No: Weakness, Numbness Objective Exam Vital Signs Vital Signs Date Time Temp Pulse Resp B/P (MAP) Pulse Ox O2 Delivery O2 Flow Rate FiO2 04/16/22 11:05 37.2 97 20 190/84 (119) 95 Room Air 04/15/22 08:44 4.00 Capillary Refill : Less Than 3 Seconds General Appearance: WD/WN, Anxious HEENT: PERRL/EOMI; No Photophobia Respiratory: Chest Non Tender, Lungs Clear, Normal Breath Sounds, No Accessory Muscle Use, No Respiratory Distress Cardiovascular: Regular Rate, Rhythm, No Murmur, Normal Peripheral Pulses Gastrointestinal: Non Tender, Soft Extremity: Normal Capillary Refill, No Calf Tenderness Neurologic/Psychiatric: Alert, Oriented x3, Normal Mood/Affect Skin: Normal Color, Warm/Dry Results/Procedures Lab Laboratory Tests 04/16/22 08:00 Patient resulted labs reviewed. Imaging: Reviewed Imaging Report Assessment/Plan Assessment and Plan Assess & Plan/Chief Complaint Closed displaced trimalleolar fracture of rt ankle -XR of rt foot and ankle done showing fracture -rt ankle reduced in ER -Pt will be having surgery this afternoon w/ Dr. Horn -RCRI 1 (history of CHF), BNP within normal limits, no further evaluation indicated. Moderate risk patient, moderate risk surgery. -Pain control -NPO -Monitor for signs of vascular or neurologic compromise of right foot -Evaluation for placement in Inpt rehab to be done after surgery HTN -BP in 180-190 systolic today, given hydralazine w/o improvement -Possibly due to anxiety, pt given ativan as she does take that BID at home -Also received Coreg -Continue to monitor HLD CHF -Continue home medications COPD -Continue home medications Hyponatremia- chronic -Na of 129 today -Reviewing hx her normal seems to be around 130 Leukocytosis -WBC of 18.7, likely reactive -UA and CXR not concerning -Pt denies any fevers, SIRS not meet -Continue to monitor for signs of infections DVT prophylaxis: SCDs and Lovenox Code status: Full code Diet: NPO LONI NOGUERA MD 04/16/22 1728: Subjective HPI/CC On Admission Time Seen by Provider: 10:30 Assessment/Plan Assessment and Plan Assess & Plan/Chief Complaint Surgery today with Dr. Horn. Discharge plan pending post-op evaluation. Diagnosis/Problems Diagnosis/Problems (1) Closed displaced trimalleolar fracture of right ankle Qualifiers: Qualified Codes: S82.851A - Displaced trimalleolar fracture of right lower leg, initial encounter for closed fracture (2) HTN (hypertension) Status: Chronic (3) HLD (hyperlipidemia) Status: Chronic (4) CAD (coronary artery disease) Status: Chronic (5) CHF (congestive heart failure) Status: Chronic (6) Hyponatremia Status: Chronic Supervisory-Addendum Brief Verification & Attestation Participated in pt care: history, MDM, physical Personally performed: exam, history, MDM, supervision of care Care discussed with: Medical Student Procedures: n/a Results interpretation: Verified all documentation A medical student performed and documented this service in my presence. I reviewed and verified all information documented by the medical student and made modifications to such information, when appropriate. I personally performed the physical exam and medical decision making. BECKY LUNA Apr 16, 2022 11:22 LONI NOGUERA MD Apr 16, 2022 17:28
[2022-04-16] MEDS ORDERED: HYDR-3817 PO (11:30)
[2022-04-16] MEDS ORDERED: HYDROcodone/APAP 7.5 MG/325 MG (LORTAB, LORCET PLUS) TABLET PO PRN (11:30)
[2022-04-16] MEDS: DOCUSATE SODIUM 100 MG (COLACE) CAP PO SCH ×2 (11:31→20:54)
[2022-04-16] MEDS: OXYBUTYNIN (DITROPAN) 5 MG TAB PO SCH ×2 (11:31→20:55)
[2022-04-16] MEDS ORDERED: BUPIVACAINE 0.5% 30 ML (SENSORCAINE) VIAL ONE (11:44)
[2022-04-16] MEDS ORDERED: fentaNYL INJ 100 MCG/2 ML AMP ONE (11:54)
[2022-04-16] MEDS ORDERED: HYDROmorphone 2 MG/ML VIAL (DILAUDID) ONE (12:27)
[2022-04-16] MEDS ORDERED: ONDANSETRON 4 MG/2 ML (SDV) Z0FRAN IVP PRN ×2 (12:30→13:45)
[2022-04-16] MEDS ORDERED: fentaNYL INJ 100 MCG/2 ML AMP IVP PRN (12:30)
[2022-04-16] MEDS ORDERED: ONDANSETRON 4 MG/2 ML (SDV) Z0FRAN ONE (13:19)
[2022-04-16] MEDS ORDERED: SEVOFLURANE (ULTANE) 15 ML INHAL SOLN ONE (13:20)
[2022-04-16] MEDS ORDERED: LIDOCAINE PF 2% 5 ML (XYLOCAINE) VIAL ONE (13:20)
[2022-04-16] MEDS ORDERED: proPOfol 200 MG/20 ML (DIPRIVAN) VIAL IV ONE (13:20)
[2022-04-16] MEDS ORDERED: HYDROmorphone 2 MG/ML VIAL (DILAUDID) IV ONE (13:45)
--- NOTE | 2022-04-16 13:56 | Occ Therapy Progress Note ---
Therapy Progress Note OT orders received. Pt had surgery on this date. OT will initiate evaluation/tx tomorrow. KENTRELL BRANTLEY OT Apr 16, 2022 13:56
[2022-04-16] MEDS ORDERED: CLINDAMYCIN 900 MG/50 ML IVPB 50 ML IV NR (14:00)
--- NOTE | 2022-04-16 14:04 | Physical Therapy Progress Note ---
Therapy Progress Note Patient still not back to room from surgery yet. Will start tomorrow. REUBEN SEVERINO PT Apr 16, 2022 14:04
[2022-04-16] MEDS: amLODIPine 5 MG (NORVASC) TAB PO SCH (14:48)
[2022-04-16] MEDS: QUEtiapine 100 MG (SEROquel) TAB IMMEDIATE RELEASE PO SCH (14:48)
[2022-04-16] MEDS: ENOXAPARIN 40 MG/0.4 ML (LOVENOX) SYR SC SCH (15:39)
--- NOTE | 2022-04-16 16:31 | Diagnostic Imaging Report ---
INDICATION: Right ankle fractures. FINDINGS: Intraoperative fluoroscopy views were obtained during ORIF of right ankle fractures. Three views were obtained with 33.1 seconds of fluoroscopy time used. Plate and screws are seen fusing the distal fibular fracture in anatomic alignment. There are two screws in place fusing the medial malleolar fracture of the distal tibia in anatomic alignment. The study is otherwise limited. IMPRESSION: Anatomic alignment of the distal tibial and fibular fractures status post ORIF. Dictated by: Dictated on workstation # [id number]
[2022-04-16] MEDS: SODIUM CHLORIDE 1 GM TABLET PO SCH (20:55)
[2022-04-16] MEDS: QUEtiapine 25 MG (SEROquel) TAB IMMEDIATE RELEASE PO SCH (20:55)
[2022-04-16] MEDS: MONTELUKAST 10 MG (SINGULAIR) TAB PO SCH (20:55)
[2022-04-16] MEDS: MIRTAZAPINE 15 MG (REMERON) TAB PO SCH (20:55)
[2022-04-16] MEDS: RT--FLUTICASONE/SALMETEROL 232-14 (AIRDUO RespiCLICK) IH SCH (23:16)
[2022-04-17] VITALS (7 sets, daily range): BP systolic 96–190; BP diastolic 50–80
--- NOTE | 2022-04-17 00:46 | OPERATIVE REPORT ---
DATE OF SERVICE: 04/16/2022 PREOPERATIVE DIAGNOSIS: Right ankle trimalleolar ankle fracture. POSTOPERATIVE DIAGNOSIS: Right ankle trimalleolar ankle fracture. PROCEDURES: 1. Open reduction and internal fixation of the right lateral malleolus. 2. Open reduction and internal fixation of the right medial malleolus. SURGEON: Terrence David MD HORSE RACER: BEKAH Guerin, who assisted throughout the procedure and closed the incisions. ANESTHESIA: General endotracheal by Venice Perez CRNA. TOURNIQUET TIME: Approximately 40 minutes at 300 mmHg. ESTIMATED BLOOD LOSS: Minimal. DRAINS: None. COMPLICATIONS: None. POSTOPERATIVE PLAN: Toe touch weightbearing for 2 weeks. The patient was transferred to the recovery room awake and stable condition. MATERIALS: Synthes distal fibular plate with two 4.0 partially threaded cancellous screws medially. STATEMENT OF MEDICAL NECESSITY: The patient is a 81-year-old female who fell yesterday and presented to the emergency department with a closed displaced trimalleolar ankle fracture. She underwent closed reduction in the emergency department and was splinted and admitted for definitive fixation. The patient was counseled regarding treatment options and elected to proceed with surgical intervention. DESCRIPTION OF PROCEDURE: After risks and benefits of procedure were discussed and questions were answered and informed consent was signed and placed on the chart. The operative site was confirmed preoperatively initialed by surgeon. The patient was then transferred to the operating room. After adequate levels of general endotracheal anesthetic was obtained, timeout was called, confirming the operative site. The right lower extremity was prepped and draped in the usual sterile fashion with the leg elevated, tourniquet was inflated to 300 mmHg. Standard lateral approach was made to the distal fibula. The underlying soft tissues were carefully dissected. The fracture site was identified and reduced anatomically. A 2.7 cortical screw was placed across the fracture site with excellent purchase obtained. A distal fibular plate was then placed with 4 cortical screws placed proximally and 5 placed distally, all with excellent purchase. Fluoroscopy with AP and lateral, oblique planes revealed well reduced fracture with well placed hardware. A longitudinal incision was then made medially. The fracture site was reduced anatomically and two guidewires were passed across the fracture site. These were then overdrilled. After ensuring that they were adequately placed, two 4.0 partially threaded cancellous screws were then placed with excellent purchase. Fluoroscopy with AP and lateral, oblique planes revealed anatomic reduction of the fracture with well placed hardware. The ankle was taken through range of motion and found to be stable. The wounds were copiously irrigated. A 3-0 Vicryl was used to reapproximate subcutaneous tissue medially, 2-0 Vicryl for the subcutaneous tissue laterally and both skin incisions were closed with 4-0 nylon horizontal mattress interrupted fashion. The incisions were infiltrated with plain Marcaine. A soft dressing and boot were applied and the patient was transferred to the recovery room awake and in stable condition. Job ID: [id number] DocumentID: [id number] Dictated Date: 04/16/2022 13:26:38 Business Management Analyst Date: 04/17/2022 00:44:00 Dictated By: TERRENCE DAVID MD
[2022-04-17 05:27] LABS: HEMOGLOBIN 12.4 g/dL (11.5-16.0)
--- NOTE | 2022-04-17 07:43 | Progress Note ---
Standard Progress Note Progress Notes/Assess & Plan Date Seen by a Provider: Apr 17, 2022 Time Seen by a Provider: 07:42 Progress/Assessment & Plan no complaints Vital Signs Date Time Temp Pulse Resp B/P (MAP) Pulse Ox O2 Delivery O2 Flow Rate FiO2 04/17/22 07:31 37.2 86 20 190/80 (116) 92 Room Air 04/17/22 03:28 37.0 70 18 170/72 (104) 92 Room Air 04/17/22 00:02 36.3 75 18 152/74 (100) 95 Nasal Cannula 2.00 04/16/22 20:00 Room Air 04/16/22 19:42 36.8 81 18 187/74 (111) 95 Nasal Cannula 2.00 04/16/22 15:35 36.0 82 22 145/89 (107) 90 Room Air 04/16/22 14:29 36.0 90 18 144/73 (96) 92 Nasal Cannula 2.00 04/16/22 14:20 Room Air 04/16/22 14:10 37.0 12 144/76 (98) 93 Room Air 04/16/22 14:00 17 134/66 (88) 94 Room Air 04/16/22 13:55 Room Air 04/16/22 13:50 12 127/73 (91) 98 OxyMask 10.00 04/16/22 13:40 OxyMask 10.00 04/16/22 13:40 16 143/68 (93) 97 OxyMask 10.00 04/16/22 13:30 18 125/67 (86) 98 OxyMask 10.00 04/16/22 13:25 37.0 21 153/70 (97) 98 OxyMask 10.00 04/16/22 13:25 OxyMask 10.00 04/16/22 11:05 37.2 97 20 190/84 (119) 95 Room Air 04/16/22 08:52 84 191/82 (118) 04/16/22 08:00 94 Room Air I & O 04/17/22 07:00 Intake Total 2210 ml Output Total 1830 ml Balance 380 ml Laboratory Tests Test 04/16/22 08:00 04/17/22 05:10 Range/Units White Blood Count 19.0 H 4.3-11.0 10^3/uL Red Blood Count 4.19 3.80-5.11 10^6/uL Hemoglobin 11.9 12.4 11.5-16.0 g/dL Hematocrit 36 37 35-52 % Mean Corpuscular Volume 85 80-99 fL Mean Corpuscular Hemoglobin 28 25-34 pg Mean Corpuscular Hemoglobin Concent 33 32-36 g/dL Red Cell Distribution Width 14.2 10.0-14.5 % Platelet Count 522 H 130-400 10^3/uL Mean Platelet Volume 8.4 L 9.0-12.2 fL Immature Granulocyte % (Auto) 1 % Neutrophils (%) (Auto) 80 H 42-75 % Lymphocytes (%) (Auto) 11 L 12-44 % Monocytes (%) (Auto) 7 0-12 % Eosinophils (%) (Auto) 1 0-10 % Basophils (%) (Auto) 0 0-10 % Neutrophils # (Auto) 15.1 H 1.8-7.8 10^3/uL Lymphocytes # (Auto) 2.1 1.0-4.0 10^3/uL Monocytes # (Auto) 1.4 H 0.0-1.0 10^3/uL Eosinophils # (Auto) 0.2 0.0-0.3 10^3/uL Basophils # (Auto) 0.1 0.0-0.1 10^3/uL Immature Granulocyte # (Auto) 0.2 H 0.0-0.1 10^3/uL Sodium Level 129 L 135-145 MMOL/L Potassium Level 4.1 3.6-5.0 MMOL/L Chloride Level 96 L 98-107 MMOL/L Carbon Dioxide Level 21 21-32 MMOL/L Anion Gap 12 5-14 MMOL/L Blood Urea Nitrogen 9 7-18 MG/DL Creatinine 0.83 0.60-1.30 MG/DL Estimat Glomerular Filtration Rate 72 BUN/Creatinine Ratio 11 Glucose Level 125 H 70-105 MG/DL Calcium Level 10.0 8.5-10.1 MG/DL RLE intact DF and PF of toes and ankle sensation intact to light touch throughout s/p R ankle ORIF reported that family considered about caring for her at home IRU eval mobilize as able DARCI Burks MD Apr 17, 2022 07:43
[2022-04-17] MEDS: RT--FLUTICASONE/SALMETEROL 232-14 (AIRDUO RespiCLICK) IH SCH ×2 (07:58→19:25)
[2022-04-17] MEDS: DOCUSATE SODIUM 100 MG (COLACE) CAP PO SCH ×2 (08:05→20:20)
[2022-04-17] MEDS: QUEtiapine 100 MG (SEROquel) TAB IMMEDIATE RELEASE PO SCH (08:05)
[2022-04-17] MEDS: OXYBUTYNIN (DITROPAN) 5 MG TAB PO SCH ×2 (08:05→20:20)
[2022-04-17] MEDS: SENNOSIDES 8.6 MG (SENOKOT) TAB PO SCH ×2 (08:05→20:20)
[2022-04-17] MEDS: RIVASTIGMINE 1.5 MG (EXELON) CAP PO SCH ×2 (08:05→17:35)
[2022-04-17] MEDS: HYDROcodone/APAP 7.5 MG/325 MG (LORTAB, LORCET PLUS) TABLET PO PRN ×2 (08:05→11:46)
[2022-04-17] MEDS: amLODIPine 5 MG (NORVASC) TAB PO SCH (08:05)
[2022-04-17] MEDS: FLUTICASONE NASAL SPRAY (FLONASE) 16 GM BTL NS SCH (08:06)
[2022-04-17] MEDS: SODIUM CHLORIDE 1 GM TABLET PO SCH ×2 (08:06→20:21)
[2022-04-17 08:37] LABS: CALCIUM 9.3 MG/DL (8.5-10.1); CREATININE SERUM 0.79 MG/DL (0.60-1.30)
--- NOTE | 2022-04-17 10:08 | Physical Therapy Evaluation ---
PT Evaluation-General Medical Diagnosis Admission Date Apr 15, 2022 at 10:37 Medical Diagnosis: Fall, Closed Trimalleolar Ankle Fx Onset Date: Apr 15, 2022 Therapy Diagnosis Therapy Diagnosis: Weakness, Impaired Mobility Height/Weight Height (Feet): 5 Height (Inches): 3.00 Weight (Pounds): 150 Weight (Ounces): 0.0 Precautions Precautions/Isolations: Fall Prevention, Standard Precautions Weight Bear Status Right Lower Extremity: Right Non Weight Bearing Left Lower Extremity: Left Full Weight Bearing Unable to comply with NWB R with verbal and tactile cues Referral Physician: Kory Reason for Referral: Evaluation/Treatment Medical History Pertinent Medical History: Atrial Fib, COPD, Dementia, HTN Additional Medical History Surgery/Hospitalization HX: stated "information is on file already" Surgeries: Yes Abdominal, Appendectomy, Eye Surgery, Gallbladder, 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, Joint Replacement, Orthopedic, Pacemaker Respiratory: Yes COPD Currently Using CPAP: No Currently Using BIPAP: No Cardiac: Yes (Congestive heart failure with EF of 35 percent) Atrial Fibrillation, High Cholesterol, Hypertension Neurological: Yes Dementia 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 Disorders: Yes Female 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 Disorders: Denies, 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, Menopausal Sexually Transmitted Disease: No HIV/AIDS: No Genitourinary: No Gastrointestinal: Yes (BLEEDING ULCER X 3; PERFORATED ULCER 2006; 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) Gastrointestinal Bleed, Chronic Diarrhea, Polyps, Ulcer, Irritable Bowel Musculoskeletal: Yes Degenerate Disk Disease, Arthritis, Chronic Back Pain, Fractures Endocrine: No HEENT: No Cataract Loss of Vision: Denies Hearing Impairment: Hard of Hearing Cancer: No Psychosocial: Yes Anxiety Integumentary: No Blood Disorders: Yes (BILATERAL P.E.'S 04/2018) Adverse Reaction/Blood Tranf: No Reviewed History: Yes Social History Home: Apartment Current Living Status: Alone Entry Into Home: Stairs Without Railing PT Steps Into Home: 2 Prior Prior Level of Function SCALE: Activities may be completed with or without assistive devices. 5-Dwmjaqsuyl-noarube completes the activity by him/herself with no assistance from a helper. 5-Set-up or Clean-up Assistance-helper sets up or cleans up; patient completes activity. [place] assists only prior to or following the activity. 4-Supervision or Touching Assistance-helper provides verbal cues and/or touch ing/steadying and/or contact guard assistance as patient completes activity. Assistance may be provided throughout the activity or intermittently. 3-Partial/Moderate Assistance-helper does LESS THAN HALF the effort. [place] lifts, holds or supports trunk or limbs, but provides less than half the effort. 2-Substantial/Maximal Assistance-helper does MORE THAN HALF the effort. [place] lifts or holds trunk or limbs and provides more than half the effort. 9-Sdehqbgbb-ghaonx does ALL the effort. Patient does none of the effort to complete the activity. Or, the assistance of 2 or more helpers is required for the patient to complete the activity. If activity was not attempted, code reason: 7-Patient Refused. 9-Not Applicable-not attempted and the patient did not perform the activity before the current illness, exacerbation or injury. 10-Not Attempted due to Environmental Limitations-(lack of equipment, weather restraints, etc.). 88-Not Attempted due to Medical Conditions or Safety Concerns. Unable to determine due to patient's cognitive status PT Evaluation-Current Subjective Patient in bed pre-tx, reported headache and had pain in ankle but unable to rate it, agrees to PT. Pain Numeric Pain Scale: 10-Worst Possible Pain Location: Right Location Body Site: Ankle Pain Description: Acute Comment: FLACC Objective Patient Orientation: Confused Attachments: [place] Catheter ROM/Strength ROM Lower Extremities CAM Boot RLE, LLE WNL Strength Lower Extremities no formal testing, LLE 3/5 grossly Integumentary/Posture Bladder Incontinence: [place] Cath Posture kyphotic Neuromuscular (Tone, Coordination, Reflexes) diminished with all/resistive with all mobility Sensory Vision: Functional Hearing: Impaired Transfers Roll Left to Right (QC): 1 Sit to Lying (QC): 1 Lying to Sitting/Side of Bed(Q: 1 Sit to Stand (QC): 1 Chair/Owu-fy-Xknzh Xfer(QC): 1 Gait Does the Patient Walk?: No and Walking Goal NOT indicated Balance Sitting Static: Fair Sitting Dynamic: Fair Standing Static: Poor Standing Dynamic: Poor Assessment/Needs Patient will benefit from skilled PT to address strength and mobility, however patient unable to comply with NWB restriction and will be restricted for approx 6-8 weeks and will require extended time to heal and return to full mobility at home. Rehab Potential: Fair PT Retirement Goals Primary Care Coordinator Goals PT Primary Care Coordinator Goals Time Frame: May 03, 2022 Roll Left & Right (QC): 2 Sit to Lying (QC): 2 Lying-Sitting on Side/Bed(QC): 2 Sit to Stand (QC): 2 Chair/Vqt-yt-Icjsd Xfer(QC): 2 with improved compliance with NWB R ankle PT Plan Problem List Problem List: Activity Tolerance, Functional Strength, Safety, Balance, Gait, Transfer, Bed Mobility, ROM Treatment/Plan Treatment Plan: Continue Plan of Care Treatment Plan: Bed Mobility, Education, Functional Activity Leonel, Functional Strength, Gait, Safety, Therapeutic Exercise, Transfers Treatment Duration: May 03, 2022 Frequency: 6 times per week (6-11 will determine later) Estimated Hrs Per Day: .25 hour per day Safety Risks/Education Patient Education: Transfer Techniques, Correct Positioning, Safety Issues Teaching Recipient: Patient Teaching Methods: Demonstration, Discussion Response to Teaching: Reinforcement Needed Discharge Recommendations Therapy Discharge Recommendati: Other, See Comments (extended care), Post Acute PT Time Time In: 904 Time Out: 917 DATE: Apr 17, 2022 Total Billed Treatment Time: 13 Total Billed Treatment 1 visit EVM 13min INDIRA PEREZ PT Apr 17, 2022 10:08
--- NOTE | 2022-04-17 11:23 | Occupational Therapy Eval ---
OT Evaluation-General/PLF Medical Diagnosis Admission Date Apr 15, 2022 at 10:37 Medical Diagnosis: Fall, Closed Trimalleolar Ankle Fx Onset Date: Apr 15, 2022 Therapy Diagnosis Therapy Diagnosis: decreased ADL status Height/Weight Height (Feet): 5 Height (Inches): 3.00 Weight (Pounds): 150 Weight (Ounces): 0.0 Precautions Precautions/Isolations: Fall Prevention, Standard Precautions Weight Bear Status Weight Bearing Restriction: Non Weight Bearing Location Restriction: R LE Referral Physician: Angel Referral Reason: Evaluation/Treatment Medical History Pertinent Medical History: Atrial Fib, COPD, Dementia, HTN Current History s/p ORIF R medial and lateral malleoli 04/16/22 Social History Home: Multilevel Current Living Status: Other Family (2 sisters) Entry Into Home: Stairs Without Railing Steps Into Home: 2 Pt lives in a multilevel duplex, only resides on the main level. Her sister lives upstairs. ADL-Prior Level of Function SCALE: Activities may be completed with or without assistive devices. 4-Zvrdsjycmq-vhspkcv completes the activity by him/herself with no assistance from a helper. 5-Set-up or Clean-up Assistance-helper sets up or cleans up; patient completes activity. [place] assists only prior to or following the activity. 4-Supervision or Touching Assistance-helper provides verbal cues and/or touching/steadying and/or contact guard assistance as patient completes activity. Assistance may be provided throughout the activity or intermittently. 3-Partial/Moderate Assistance-helper does LESS THAN HALF the effort. [place] lifts, holds or supports trunk or limbs, but provides less than half the effort. 2-Substantial/Maximal Assistance-helper does MORE THAN HALF the effort. [place] lifts or holds trunk or limbs and provides more than half the effort. 4-Gvsllbbhl-ffjgrl does ALL the effort. Patient does none of the effort to complete the activity. Or, the assistance of 2 or more helpers is required for the patient to complete the activity. If activity was not attempted, code reason: 7-Patient Refused. 9-Not Applicable-not attempted and the patient did not perform the activity be fore the current illness, exacerbation or injury. 10-Not Attempted due to Environmental Limitations-(lack of equipment, weather restraints, etc.). 88-Not Attempted due to Medical Conditions or Safety Concerns. ADL PLOF Comments Pt and caregiver report pt has total care at home. Her caregiver works Thursday through Thursday, 8 hours a day, 40hr/wk. Pt has assistance using 4WW around the house due to unsteadiness, and total assistance with ADLs. Pt's sister provides care in evenings and weekends when caregiver is not present. Caregiver/sister complete cooking/cleaning, assist pt to bathroom and hygine, complete shower and dressing tasks for pt. In the evening, pt lays in bed and hollers at her sister if she needs anything. Pt has a tub/shower with bath bench. Pt also has a w/c at home, but this is unable to get into bathroom. Pt's caregiver unclear on how often pt uses w/c. Self Care: Needed Some Help Functional Cognition: Needed Some Help DME/Equipment: Bath Bench, Tub/Shower OT Current Status Subjective Pt in recliner, hollering out in pain without any movement of RLE. Pt did not verbalize pain rating. Pt's caregiver present throughout tx. Mental Status/Objective Patient Orientation: Person, Confused Attachments: Other-See Comments (CAM boot RLE) Current Hand Dominance: Right Upper Extremity ROM WFL, BUE shoulder flexion to approx 150 degrees Upper Extremity Strength grossly 3/5 ADL-Treatment Eating (QC): 6 (Per nursing report.) On/Off Footwear (QC): 1 (Pt unable to doff/don L grpiper sock.) Toileting Hygiene (QC): 7 (Pt declines BM at this time, has chery catheter.) Other Treatments Pt in recliner, agreeable to OT Tx. Pt and caregiver provided information about PLOF and home set up. Pt's caregiver provides 40 hours a week assistance (assistance provided with all ADLS, IADLs, and mobility). Pt participated in UE screen, but declined further UE exercises due to RLE pain. Pt attempted to doff L gripper sock, able to bring foot up far enough for pt to tough top of the sock, but pt unable to don at this time. Pt required moderate encouragement to attempt to doff sock, due to pt stating she is unable to prior to attempting task. Pt's daughter arrived, OT educated daughter and caregiver on benefits of BSC, due to their report of w/c not being able to fit inside bathroom, they verbalize understanding. OT assisted pt with positioning RLE to comfort, as pt's RLE was close to edge of leg rest where it could easily slide off and onto the floor. Post tx, pt in recliner, call light in reach and all needs met. Education OT Patient Education: Correct positioning, Energy conservation, Modified ADL techniques, Progress toward Goal/Update tx plan, Purpose of tx/functional activities Teaching Recipient: Patient Teaching Methods: Discussion Response to Teaching: Verbalize Understanding OT Retirement Goals Retirement Goals 1=Demonstrate adherence to instructed precautions during ADL tasks. 2=Patient will verbalize/demonstrate understanding of assistive devices/modifications for ADL. 3=Patient will improve strength/tolerance for activity to enable patient to perform ADL's. OT Education/Plan Problem List/Assessment Assessment: No Skilled OT Needs ID'd Pt has a caregiver assistance 40 hours per week, and her sister assists pt when caregiver is not present. Pt has total care with I/ADLs (cooking, cleaning, bathing, dressing, toileting, meals), and they assist pt with mobility using 4WW. Due to pt having total care at home, no skilled OT services indicated at this time. D/C from OT. Discharge Recommendations Plan/Recommendations: Discharge/Goals Met Equpiment Recommendations-D/C: Bedside Commode Treatment Plan/Plan of Care Patient would benefit from OT for education, treatment and training to promote independence in ADL's, mobility, safety and/or upper extremity function for ADL's. Plan of Care: ADL Retraining, UE Funct Exercise/Act Treatment Duration: Apr 17, 2022 Frequency: 1 time per week Estimated Hrs Per Day: .25 hour per day Rehab Potential: Guarded Time Start Time: 10:52 Stop Time: 11:11 DATE: Apr 17, 2022 Total Time Billed (hr/min): 19 Billed Treatment Time 1, KENTRELL SAMUEL OT Apr 17, 2022 11:23
[2022-04-17] MEDS: ENOXAPARIN 40 MG/0.4 ML (LOVENOX) SYR SC SCH (11:50)
--- NOTE | 2022-04-17 12:30 | Anesthesia-General Post-Op ---
General Patient Condition Mental Status/LOC: Same as Preop Cardiovascular: Satisfactory Nausea/Vomiting: Absent Respiratory: Satisfactory Pain: Controlled Complications: Absent Post Op Complications Complications None Follow Up Care/Instructions Patient Instructions None needed. Anesthesia/Patient Condition Patient Condition Patient is doing well, no complaints, stable vital signs, no apparent adverse anesthesia problems. No complications reported per nursing. BHARAT CASTRO CRNA Apr 17, 2022 12:30
--- NOTE | 2022-04-17 13:18 | Progress Note - Hospitalist ---
Subjective HPI/CC On Admission Date Seen by Provider: Apr 17, 2022 Time Seen by Provider: 10:40 Vane Correia is a 81y/o F w/ a PMH of Afib w/ pacemaker, COPD, HTN, HLD, GI bleed who is being seen for right ankle pain. Pt reports that she fell this morning when she was getting out of bed and going to turn on a lamp. Her right foot got caught underneath her when she fell. Denies having any dizziness before the fall and states that "she just fell". Says that after the fall that she was unable to get up off the floor and had to yell for her daughter to come help her. EMS was called and pt was then transported to the ER. There she was found to have a closed displaced trimalleolar fracture. The fracture was reduced in the ER. Currently pt reports that pain is a 7-8/10. The pain increases w/ movement and when she gets pain medication the pain does decrease. Able to feel sensation in toes on right foot. Denies that she hit her head when she fell and does not have any head or neck pain. She does endorse a history of falls. Denies having any other concerns when asked. Subjective/Events-last exam She is sitting in her chair. She worked with therapy. She is having some pain in her foot. Objective Exam Vital Signs Vital Signs Date Time Temp Pulse Resp B/P (MAP) Pulse Ox O2 Delivery O2 Flow Rate FiO2 04/17/22 11:36 36.2 80 20 96/50 (65) 93 Room Air 04/17/22 00:02 2.00 Capillary Refill : Less Than 3 SecondsLess Than 3 Seconds General Appearance: No Apparent Distress, Obese Respiratory: Lungs Clear, No Respiratory Distress Cardiovascular: Regular Rate, Rhythm, No Murmur Gastrointestinal: Normal Bowel Sounds, Soft Extremity: Non Tender, No Pedal Edema Neurologic/Psychiatric: Alert, Normal Mood/Affect Skin: Normal Color, Warm/Dry Results/Procedures Lab Laboratory Tests 04/17/22 05:10 Patient resulted labs reviewed. Imaging: Reviewed Imaging Report Assessment/Plan Assessment and Plan Assess & Plan/Chief Complaint Closed displaced trimalleolar fracture of rt ankle s/p surgical repair 04/16 Pain regimen Bowel regimen PT/OT Incentive spirometry IRU evaluation Medically stable for discharge, recommend expedited insurance authorization HTN Continue home meds Hyrdalazine as needed HLD CHF COPD Continue home medications Hyponatremia Continue salt tabs DVT prophylaxis: Lovenox Diagnosis/Problems Diagnosis/Problems (1) Closed displaced trimalleolar fracture of right ankle Qualifiers: Encounter type: initial encounter Qualified Codes: S82.851A - Displaced trimalleolar fracture of right lower leg, initial encounter for closed fracture (2) HTN (hypertension) Status: Chronic (3) HLD (hyperlipidemia) Status: Chronic (4) CAD (coronary artery disease) Status: Chronic (5) CHF (congestive heart failure) Status: Chronic (6) Hyponatremia Status: Chronic LONI NOGUERA MD Apr 17, 2022 13:18
--- NOTE | 2022-04-17 15:10 | Physical Therapy Daily Note ---
PT Daily Note-Current Subjective Patient sitting in recliner upon PT arrival, agreeable to treatment. Rates current right ankle pain at 9-10/10. Pain Section J - Health Conditions 1. Rarely or not at all 2. Occasionally 3. Frequently 4. Almost constantly 8. Unable to answer Pain Effect on Sleep: 3 Pain Interference with Therapy: 3 Pain Interference w/Day-to-Day: 3 Mental Status Patient Orientation: Person, Place Transfers SCALE: Activities may be completed with or without assistive devices. 0-Prxfajrslm-kqldgob completes the activity by him/herself with no assistance from a helper. 5-Set-up or Clean-up Assistance-helper sets up or cleans up; patient completes activity. [place] assists only prior to or following the activity. 4-Supervision or Touching Assistance-helper provides verbal cues and/or touching/steadying and/or contact guard assistance as patient completes activity. Assistance may be provided throughout the activity or intermittently. 3-Partial/Moderate Assistance-helper does LESS THAN HALF the effort. [place] lifts, holds or supports trunk or limbs, but provides less than half the effort. 2-Substantial/Maximal Assistance-helper does MORE THAN HALF the effort. [place] lifts or holds trunk or limbs and provides more than half the effort. 1-Ljnlhgvox-rjcock does ALL the effort. Patient does none of the effort to complete the activity. Or, the assistance of 2 or more helpers is required for the patient to complete the activity. If activity was not attempted, code reason: 7-Patient Refused. 9-Not Applicable-not attempted and the patient did not perform the activity before the current illness, exacerbation or injury. 10-Not Attempted due to Environmental Limitations-(lack of equipment, weather restraints, etc.). 88-Not Attempted due to Medical Conditions or Safety Concerns. Roll Left & Right (QC): 2 Lying to Sitting/Side of Bed(Q: 2 Sit to Stand (QC): 2 Chair/Avq-ym-Yiqdy Xfer(QC): 1 Weight Bearing Right Lower Extremity: Right Non Weight Bearing Left Lower Extremity: Left Full Weight Bearing Unable to comply with NWB R with verbal and tactile cues Gait Training Does the Patient Walk?: No and Walking Goal IS indicated Assessment Current Status: Poor Progress Patient is [place] and gets confused frequently, either due to poor hearing, due to cognitive level or a combination of both. Patient requires max A for sit to stand, sit to supine and bed mobility. She requires total assistance for SPT to chair. Patients current cognitive level makes NWB for her difficult at this time. However, patient demonstrates potential to improve with skilled therapeutic intervention for overall strengthening and balance, transfers and bed mobility. Her inability to maintain NWB right LE potentially limits gait potential at this time, however if UE and core strength improvements are made, patient may be able to ambulate short distances with assistance. Patient would benefit from post acute placement for further skilled therapy to improve strength and mobility, as well as for her safety to avoid additional falls. Patient in bed post treatment with all needs met, nursing notified, call light in reach and bed alarm activated. PT Machine Set Up Operator Goals Machine Set Up Operator Goals PT Machine Set Up Operator Goals Time Frame: May 03, 2022 Roll Left & Right (QC): 2 Sit to Lying (QC): 2 Lying-Sitting on Side/Bed(QC): 2 Sit to Stand (QC): 2 Chair/Tau-sx-Pbmxw Xfer(QC): 2 PT Plan Treatment/Plan Treatment Plan: Continue Plan of Care Treatment Plan: Bed Mobility, Education, Functional Activity Leonel, Functional Strength, Gait, Safety, Therapeutic Exercise, Transfers Treatment Duration: May 03, 2022 Frequency: 6 times per week (6-11 will determine later) Estimated Hrs Per Day: .25 hour per day Safety Risks/Education Patient Education: Gait Training, Transfer Techniques Teaching Recipient: Patient Teaching Methods: Demonstration, Discussion Response to Teaching: Verbalize Understanding, Return Demonstration Time Time In: 1426 Time Out: 1450 DATE: Apr 17, 2022 Total Billed Treatment Time: 24 Total Billed Treatment Visit, FA (2) BRAD ROSA PT Apr 17, 2022 15:10
[2022-04-17] MEDS: MIRTAZAPINE 15 MG (REMERON) TAB PO SCH (20:20)
[2022-04-17] MEDS: MONTELUKAST 10 MG (SINGULAIR) TAB PO SCH (20:20)
[2022-04-17] MEDS: QUEtiapine 25 MG (SEROquel) TAB IMMEDIATE RELEASE PO SCH (20:20)
[2022-04-18 03:21] VITALS: BP 144/64
[2022-04-18 05:19] LABS: HEMOGLOBIN 10.3 g/dL (11.5-16.0)
[2022-04-18] MEDS: HYDROcodone/APAP 7.5 MG/325 MG (LORTAB, LORCET PLUS) TABLET PO PRN ×3 (05:35→20:06)
--- NOTE | 2022-04-18 06:56 | Progress Note ---
Standard Progress Note Progress Notes/Assess & Plan Date Seen by a Provider: Apr 18, 2022 Time Seen by a Provider: 06:55 Progress/Assessment & Plan no complaints Vital Signs Date Time Temp Pulse Resp B/P (MAP) Pulse Ox O2 Delivery O2 Flow Rate FiO2 04/17/22 07:31 37.2 86 20 190/80 (116) 92 Room Air 04/17/22 03:28 37.0 70 18 170/72 (104) 92 Room Air 04/17/22 00:02 36.3 75 18 152/74 (100) 95 Nasal Cannula 2.00 04/16/22 20:00 Room Air 04/16/22 19:42 36.8 81 18 187/74 (111) 95 Nasal Cannula 2.00 04/16/22 15:35 36.0 82 22 145/89 (107) 90 Room Air 04/16/22 14:29 36.0 90 18 144/73 (96) 92 Nasal Cannula 2.00 04/16/22 14:20 Room Air 04/16/22 14:10 37.0 12 144/76 (98) 93 Room Air 04/16/22 14:00 17 134/66 (88) 94 Room Air 04/16/22 13:55 Room Air 04/16/22 13:50 12 127/73 (91) 98 OxyMask 10.00 04/16/22 13:40 OxyMask 10.00 04/16/22 13:40 16 143/68 (93) 97 OxyMask 10.00 04/16/22 13:30 18 125/67 (86) 98 OxyMask 10.00 04/16/22 13:25 37.0 21 153/70 (97) 98 OxyMask 10.00 04/16/22 13:25 OxyMask 10.00 04/16/22 11:05 37.2 97 20 190/84 (119) 95 Room Air 04/16/22 08:52 84 191/82 (118) 04/16/22 08:00 94 Room Air I & O 04/17/22 07:00 Intake Total 2210 ml Output Total 1830 ml Balance 380 ml Laboratory Tests Test 04/16/22 08:00 04/17/22 05:10 Range/Units White Blood Count 19.0 H 4.3-11.0 10^3/uL Red Blood Count 4.19 3.80-5.11 10^6/uL Hemoglobin 11.9 12.4 11.5-16.0 g/dL Hematocrit 36 37 35-52 % Mean Corpuscular Volume 85 80-99 fL Mean Corpuscular Hemoglobin 28 25-34 pg Mean Corpuscular Hemoglobin Concent 33 32-36 g/dL Red Cell Distribution Width 14.2 10.0-14.5 % Platelet Count 522 H 130-400 10^3/uL Mean Platelet Volume 8.4 L 9.0-12.2 fL Immature Granulocyte % (Auto) 1 % Neutrophils (%) (Auto) 80 H 42-75 % Lymphocytes (%) (Auto) 11 L 12-44 % Monocytes (%) (Auto) 7 0-12 % Eosinophils (%) (Auto) 1 0-10 % Basophils (%) (Auto) 0 0-10 % Neutrophils # (Auto) 15.1 H 1.8-7.8 10^3/uL Lymphocytes # (Auto) 2.1 1.0-4.0 10^3/uL Monocytes # (Auto) 1.4 H 0.0-1.0 10^3/uL Eosinophils # (Auto) 0.2 0.0-0.3 10^3/uL Basophils # (Auto) 0.1 0.0-0.1 10^3/uL Immature Granulocyte # (Auto) 0.2 H 0.0-0.1 10^3/uL Sodium Level 129 L 135-145 MMOL/L Potassium Level 4.1 3.6-5.0 MMOL/L Chloride Level 96 L 98-107 MMOL/L Carbon Dioxide Level 21 21-32 MMOL/L Anion Gap 12 5-14 MMOL/L Blood Urea Nitrogen 9 7-18 MG/DL Creatinine 0.83 0.60-1.30 MG/DL Estimat Glomerular Filtration Rate 72 BUN/Creatinine Ratio 11 Glucose Level 125 H 70-105 MG/DL Calcium Level 10.0 8.5-10.1 MG/DL RLE intact DF and PF of toes and ankle sensation intact to light touch throughout s/p R ankle ORIF reported that family considered about caring for her at home IRU eval mobilize as able KILLIAN Woodson Final Diagnosis resting Vital Signs Date Time Temp Pulse Resp B/P (MAP) Pulse Ox O2 Delivery O2 Flow Rate FiO2 04/18/22 03:21 36.7 76 18 144/64 (90) 92 Room Air 04/17/22 23:25 36.8 77 18 145/67 (93) 92 Room Air 04/17/22 20:00 Room Air 04/17/22 19:26 92 Room Air 04/17/22 19:05 37.2 78 18 143/68 (93) 91 Room Air 04/17/22 15:22 37.5 72 18 125/60 (81) 93 Room Air 04/17/22 11:36 36.2 80 20 96/50 (65) 93 Room Air 04/17/22 08:00 92 Room Air 04/17/22 07:31 37.2 86 20 190/80 (116) 92 Room Air I & O 04/18/22 07:00 Intake Total 1315 ml Output Total 1350 ml Balance -35 ml Laboratory Tests Test 04/18/22 05:05 Range/Units Hemoglobin 10.3 L 11.5-16.0 g/dL Hematocrit 31 L 35-52 % RLE in boot brisk cap refill s/p R ankle ORIF await placement DARCI DAVID MD Apr 18, 2022 06:56
[2022-04-18 08:00] VITALS: BP 174/74
[2022-04-18] MEDS: SENNOSIDES 8.6 MG (SENOKOT) TAB PO SCH ×2 (08:42→20:06)
[2022-04-18] MEDS: amLODIPine 5 MG (NORVASC) TAB PO SCH (08:43)
[2022-04-18] MEDS: RIVASTIGMINE 1.5 MG (EXELON) CAP PO SCH ×2 (08:43→17:57)
[2022-04-18] MEDS: FLUTICASONE NASAL SPRAY (FLONASE) 16 GM BTL NS SCH (08:43)
[2022-04-18] MEDS: DOCUSATE SODIUM 100 MG (COLACE) CAP PO SCH ×2 (08:43→20:05)
[2022-04-18] MEDS: SODIUM CHLORIDE 1 GM TABLET PO SCH ×2 (08:43→20:06)
[2022-04-18] MEDS: OXYBUTYNIN (DITROPAN) 5 MG TAB PO SCH ×2 (08:43→20:06)
[2022-04-18] MEDS: QUEtiapine 100 MG (SEROquel) TAB IMMEDIATE RELEASE PO SCH (08:43)
[2022-04-18] MEDS: RT--FLUTICASONE/SALMETEROL 232-14 (AIRDUO RespiCLICK) IH SCH (09:16)
[2022-04-18] MEDS: ENOXAPARIN 40 MG/0.4 ML (LOVENOX) SYR SC SCH (10:38)
--- NOTE | 2022-04-18 10:51 | Physical Therapy Daily Note ---
PT Daily Note-Current Subjective Patient agrees to PT. Pain Section J - Health Conditions 1. Rarely or not at all 2. Occasionally 3. Frequently 4. Almost constantly 8. Unable to answer Pain Effect on Sleep: 8 Pain Interference with Therapy: 8 Pain Interference w/Day-to-Day: 8 Mental Status Patient Orientation: Confused Transfers SCALE: Activities may be completed with or without assistive devices. 7-Awehpacwwl-tyeinhm completes the activity by him/herself with no assistance from a helper. 5-Set-up or Clean-up Assistance-helper sets up or cleans up; patient completes activity. [place] assists only prior to or following the activity. 4-Supervision or Touching Assistance-helper provides verbal cues and/or touching/steadying and/or contact guard assistance as patient completes activity. Assistance may be provided throughout the activity or intermittently. 3-Partial/Moderate Assistance-helper does LESS THAN HALF the effort. [place] lifts, holds or supports trunk or limbs, but provides less than half the effort. 2-Substantial/Maximal Assistance-helper does MORE THAN HALF the effort. [place] lifts or holds trunk or limbs and provides more than half the effort. 2-Ujnkshsqj-zbwkox does ALL the effort. Patient does none of the effort to complete the activity. Or, the assistance of 2 or more helpers is required for the patient to complete the activity. If activity was not attempted, code reason: 7-Patient Refused. 9-Not Applicable-not attempted and the patient did not perform the activity before the current illness, exacerbation or injury. 10-Not Attempted due to Environmental Limitations-(lack of equipment, weather restraints, etc.). 88-Not Attempted due to Medical Conditions or Safety Concerns. Lying to Sitting/Side of Bed(Q: 2 Sit to Stand (QC): 2 Chair/Qov-rb-Lajcc Xfer(QC): 2 unable to comply with NWB right LE with CAM boot in place Weight Bearing Right Lower Extremity: Right Non Weight Bearing Left Lower Extremity: Left Full Weight Bearing Unable to comply with NWB R with verbal and tactile cues Exercises Seated Therapy Exercises: Long arc quads, Hip flexion Seated Reps: 12 (AAROM) Assessment Patient tolerates minimal activity and is up in recliner with breakfast in situ. Patient unable to comply with NWB right LE. PT Custodial Goals [employer] Engines Operating Engineer Goals PT Custodial Goals Time Frame: May 03, 2022 Roll Left & Right (QC): 2 Sit to Lying (QC): 2 Lying-Sitting on Side/Bed(QC): 2 Sit to Stand (QC): 2 Chair/Hjk-ep-Rlitq Xfer(QC): 2 PT Plan Treatment/Plan Treatment Plan: Continue Plan of Care Treatment Plan: Bed Mobility, Education, Functional Activity Leonel, Functional Strength, Gait, Safety, Therapeutic Exercise, Transfers Treatment Duration: May 03, 2022 Frequency: 6 times per week (6-11 will determine later) Estimated Hrs Per Day: .25 hour per day Time Time In: 812 Time Out: 822 DATE: Apr 18, 2022 Total Billed Treatment Time: 10 Total Billed Treatment 1 visit FA 10 min INDIRA PEREZ PT Apr 18, 2022 10:51
[2022-04-18 12:00] VITALS: BP 131/73
--- NOTE | 2022-04-18 13:32 | Physical Therapy Daily Note ---
PT Daily Note-Current Subjective Patient agrees to bed exercises only. Declined OOB. Pain Section J - Health Conditions 1. Rarely or not at all 2. Occasionally 3. Frequently 4. Almost constantly 8. Unable to answer Pain Effect on Sleep: 8 Pain Interference with Therapy: 8 Pain Interference w/Day-to-Day: 8 Mental Status Patient Orientation: Confused Transfers SCALE: Activities may be completed with or without assistive devices. 7-Heufikytny-vkgaqzt completes the activity by him/herself with no assistance from a helper. 5-Set-up or Clean-up Assistance-helper sets up or cleans up; patient completes activity. [place] assists only prior to or following the activity. 4-Supervision or Touching Assistance-helper provides verbal cues and/or touching/steadying and/or contact guard assistance as patient completes activity. Assistance may be provided throughout the activity or intermittently. 3-Partial/Moderate Assistance-helper does LESS THAN HALF the effort. [place] lifts, holds or supports trunk or limbs, but provides less than half the effort. 2-Substantial/Maximal Assistance-helper does MORE THAN HALF the effort. [place] lifts or holds trunk or limbs and provides more than half the effort. 4-Gshrkbajt-ztxmjv does ALL the effort. Patient does none of the effort to complete the activity. Or, the assistance of 2 or more helpers is required for the patient to complete the activity. If activity was not attempted, code reason: 7-Patient Refused. 9-Not Applicable-not attempted and the patient did not perform the activity before the current illness, exacerbation or injury. 10-Not Attempted due to Environmental Limitations-(lack of equipment, weather restraints, etc.). 88-Not Attempted due to Medical Conditions or Safety Concerns. Weight Bearing Right Lower Extremity: Right Non Weight Bearing Left Lower Extremity: Left Full Weight Bearing Unable to comply with NWB R with verbal and tactile cues Exercises Supine Ex: Ankle pumps (left LE only), Quad Set, Heel Slides, Straight leg raise, Hip abd/add Supine Reps: 12 (AAROM bilaterally) Assessment Patient continues to tolerated minimal activity and remains in bed with needs met. AAROM required due to patient cognation. Increase activity as tolerated by patient. PT Principal Consulting Engineer Goals Shelter Goals PT Principal Consulting Engineer Goals Time Frame: May 03, 2022 Roll Left & Right (QC): 2 Sit to Lying (QC): 2 Lying-Sitting on Side/Bed(QC): 2 Sit to Stand (QC): 2 Chair/Ncz-au-Xtsuw Xfer(QC): 2 PT Plan Treatment/Plan Treatment Plan: Continue Plan of Care Treatment Plan: Bed Mobility, Education, Functional Activity Leonel, Functional Strength, Gait, Safety, Therapeutic Exercise, Transfers Treatment Duration: May 03, 2022 Frequency: 6 times per week (6-11 will determine later) Estimated Hrs Per Day: .25 hour per day Time Time In: 1316 Time Out: 1325 DATE: Apr 18, 2022 Total Billed Treatment Time: 9 Total Billed Treatment 1 visit EX 9 min INDIRA PEREZ PT Apr 18, 2022 13:32
[2022-04-18 15:08] VITALS: BP 162/78
--- NOTE | 2022-04-18 17:28 | Progress Note - Hospitalist ---
Subjective HPI/CC On Admission Date Seen by Provider: Apr 18, 2022 Time Seen by Provider: 11:40 Vane Correia is a 81y/o F w/ a PMH of Afib w/ pacemaker, COPD, HTN, HLD, GI bleed who is being seen for right ankle pain. Pt reports that she fell this morning when she was getting out of bed and going to turn on a lamp. Her right foot got caught underneath her when she fell. Denies having any dizziness before the fall and states that "she just fell". Says that after the fall that she was unable to get up off the floor and had to yell for her daughter to come help her. EMS was called and pt was then transported to the ER. There she was found to have a closed displaced trimalleolar fracture. The fracture was reduced in the ER. Currently pt reports that pain is a 7-8/10. The pain increases w/ movement and when she gets pain medication the pain does decrease. Able to feel sensation in toes on right foot. Denies that she hit her head when she fell and does not have any head or neck pain. She does endorse a history of falls. Denies having any other concerns when asked. Subjective/Events-last exam She is sitting in bed with a drink. She is about to eat lunch. She has no complaints. She is hoping to leave the hospital today. Objective Exam Vital Signs Vital Signs Date Time Temp Pulse Resp B/P (MAP) Pulse Ox O2 Delivery O2 Flow Rate FiO2 04/18/22 15:08 35.9 67 18 162/78 (106) 91 Room Air 04/18/22 09:19 2.00 Capillary Refill : Less Than 3 SecondsLess Than 3 Seconds General Appearance: No Apparent Distress, Obese Respiratory: Lungs Clear, No Respiratory Distress Cardiovascular: Regular Rate, Rhythm, No Murmur Gastrointestinal: Normal Bowel Sounds, Soft Extremity: Non Tender, Pedal Edema Neurologic/Psychiatric: Alert, Normal Mood/Affect Skin: Normal Color, Warm/Dry Results/Procedures Lab Laboratory Tests 04/18/22 05:05 Patient resulted labs reviewed. Imaging: Reviewed Imaging Report Assessment/Plan Assessment and Plan Assess & Plan/Chief Complaint Closed displaced trimalleolar fracture of rt ankle s/p surgical repair 04/16 Pain regimen Bowel regimen PT/OT Incentive spirometry IRU denied by insurance SNF referral Medically stable for discharge, recommend expedited insurance authorization HTN Increase Amlodipine Continue Coreg Hyrdalazine as needed HLD CHF COPD Continue home medications Hyponatremia Continue salt tabs DVT prophylaxis: Lovenox Diagnosis/Problems Diagnosis/Problems (1) Closed displaced trimalleolar fracture of right ankle Qualifiers: Encounter type: initial encounter Qualified Codes: S82.851A - Displaced trimalleolar fracture of right lower leg, initial encounter for closed fracture (2) HTN (hypertension) Status: Chronic (3) HLD (hyperlipidemia) Status: Chronic (4) CAD (coronary artery disease) Status: Chronic (5) CHF (congestive heart failure) Status: Chronic (6) Hyponatremia Status: Chronic LONI NOGUERA MD Apr 18, 2022 17:28
[2022-04-18 19:02] VITALS: BP 178/78
[2022-04-18] MEDS: MIRTAZAPINE 15 MG (REMERON) TAB PO SCH (20:05)
[2022-04-18] MEDS: QUEtiapine 25 MG (SEROquel) TAB IMMEDIATE RELEASE PO SCH (20:06)
[2022-04-18] MEDS: MONTELUKAST 10 MG (SINGULAIR) TAB PO SCH (20:06)
[2022-04-18 23:16] VITALS: BP 137/74
[2022-04-19 03:30] VITALS: BP 151/74
[2022-04-19 07:22] VITALS: BP 180/71
[2022-04-19] MEDS: HYDROcodone/APAP 7.5 MG/325 MG (LORTAB, LORCET PLUS) TABLET PO PRN ×3 (07:45→20:32)
[2022-04-19] MEDS: RT--FLUTICASONE/SALMETEROL 232-14 (AIRDUO RespiCLICK) IH SCH ×2 (07:48→20:13)
--- NOTE | 2022-04-19 08:04 | Physical Therapy Daily Note ---
PT Daily Note-Current Subjective Patient agrees to PT. Pain Numeric Pain Scale: 8 Location: Right Location Body Site: Ankle Pain Description: Acute Section J - Health Conditions 1. Rarely or not at all 2. Occasionally 3. Frequently 4. Almost constantly 8. Unable to answer Pain Effect on Sleep: 2 Pain Interference with Therapy: 2 Pain Interference w/Day-to-Day: 2 Mental Status Patient Orientation: Person, Time, Situation Attachments: [place] Catheter Transfers SCALE: Activities may be completed with or without assistive devices. 2-Nbwbgvciyf-ltltyaa completes the activity by him/herself with no assistance from a helper. 5-Set-up or Clean-up Assistance-helper sets up or cleans up; patient completes activity. [place] assists only prior to or following the activity. 4-Supervision or Touching Assistance-helper provides verbal cues and/or touching/steadying and/or contact guard assistance as patient completes activity. Assistance may be provided throughout the activity or intermittently. 3-Partial/Moderate Assistance-helper does LESS THAN HALF the effort. [place] lifts, holds or supports trunk or limbs, but provides less than half the effort. 2-Substantial/Maximal Assistance-helper does MORE THAN HALF the effort. [place] lifts or holds trunk or limbs and provides more than half the effort. 3-Hsggkztaq-dvzpgi does ALL the effort. Patient does none of the effort to complete the activity. Or, the assistance of 2 or more helpers is required for the patient to complete the activity. If activity was not attempted, code reason: 7-Patient Refused. 9-Not Applicable-not attempted and the patient did not perform the activity before the current illness, exacerbation or injury. 10-Not Attempted due to Environmental Limitations-(lack of equipment, weather restraints, etc.). 88-Not Attempted due to Medical Conditions or Safety Concerns. Lying to Sitting/Side of Bed(Q: 2 Sit to Stand (QC): 2 Chair/Tck-lt-Czfdh Xfer(QC): 2 unable to comply with NWB right LE Weight Bearing Right Lower Extremity: Right Non Weight Bearing Left Lower Extremity: Left Full Weight Bearing Unable to comply with NWB R with verbal and tactile cues Exercises Supine Ex: Quad Set, Heel Slides, Straight leg raise Supine Reps: 10 Seated Therapy Exercises: Long arc quads, Hip flexion Seated Reps: 10 Assessment Patient up in recliner with bilateral LE elevated. PT to continue to increase activity as tolerated by patient. Patient continues to have difficulty with NWB right LE. PT Penitentiary Goals Penitentiary Goals PT [employer] Mounter Goals Time Frame: May 03, 2022 Roll Left & Right (QC): 2 Sit to Lying (QC): 2 Lying-Sitting on Side/Bed(QC): 2 Sit to Stand (QC): 2 Chair/Qel-by-Rsiqv Xfer(QC): 2 PT Plan Treatment/Plan Treatment Plan: Continue Plan of Care Treatment Plan: Bed Mobility, Education, Functional Activity Leonel, Functional Strength, Gait, Safety, Therapeutic Exercise, Transfers Treatment Duration: May 03, 2022 Frequency: 6 times per week (6-11 will determine later) Estimated Hrs Per Day: .25 hour per day Time Time In: 730 Time Out: 742 DATE: Apr 19, 2022 Total Billed Treatment Time: 12 Total Billed Treatment 1 visit FA 12 min INDIRA PEREZ PT Apr 19, 2022 08:04
[2022-04-19] MEDS: QUEtiapine 100 MG (SEROquel) TAB IMMEDIATE RELEASE PO SCH (08:06)
[2022-04-19] MEDS: SODIUM CHLORIDE 1 GM TABLET PO SCH ×2 (08:06→20:33)
[2022-04-19] MEDS: OXYBUTYNIN (DITROPAN) 5 MG TAB PO SCH ×2 (08:07→20:33)
[2022-04-19] MEDS: amLODIPine 5 MG (NORVASC) TAB PO SCH (08:07)
[2022-04-19] MEDS: SENNOSIDES 8.6 MG (SENOKOT) TAB PO SCH ×2 (08:08→20:33)
[2022-04-19] MEDS: FLUTICASONE NASAL SPRAY (FLONASE) 16 GM BTL NS SCH (08:08)
[2022-04-19] MEDS: RIVASTIGMINE 1.5 MG (EXELON) CAP PO SCH ×2 (08:08→17:38)
[2022-04-19] MEDS: DOCUSATE SODIUM 100 MG (COLACE) CAP PO SCH ×2 (08:08→20:33)
[2022-04-19 10:10] LABS: HEMOGLOBIN 10.3 g/dL (11.5-16.0)
[2022-04-19 10:19] LABS: POTASSIUM 4.4 MMOL/L (3.6-5.0)
[2022-04-19 10:21] LABS: CALCIUM 9.7 MG/DL (8.5-10.1)
[2022-04-19 10:25] LABS: CREATININE SERUM 0.91 MG/DL (0.60-1.30)
[2022-04-19] MEDS ORDERED: NS IV 500 ML 500 ML IV SCH (10:45)
[2022-04-19 11:09] VITALS: BP 121/70
[2022-04-19] MEDS: ENOXAPARIN 40 MG/0.4 ML (LOVENOX) SYR SC SCH (11:18)
[2022-04-19 15:32] VITALS: BP 145/63
--- NOTE | 2022-04-19 17:16 | Progress Note - Hospitalist ---
Subjective HPI/CC On Admission Date Seen by Provider: Apr 19, 2022 Time Seen by Provider: 10:35 Vane Correia is a 81y/o F w/ a PMH of Afib w/ pacemaker, COPD, HTN, HLD, GI bleed who is being seen for right ankle pain. Pt reports that she fell this morning when she was getting out of bed and going to turn on a lamp. Her right foot got caught underneath her when she fell. Denies having any dizziness before the fall and states that "she just fell". Says that after the fall that she was unable to get up off the floor and had to yell for her daughter to come help her. EMS was called and pt was then transported to the ER. There she was found to have a closed displaced trimalleolar fracture. The fracture was reduced in the ER. Currently pt reports that pain is a 7-8/10. The pain increases w/ movement and when she gets pain medication the pain does decrease. Able to feel sensation in toes on right foot. Denies that she hit her head when she fell and does not have any head or neck pain. She does endorse a history of falls. Denies having any other concerns when asked. Subjective/Events-last exam She is having some leg pain. She is eating and drinking. Her birthday is tomorrow. Objective Exam Vital Signs Vital Signs Date Time Temp Pulse Resp B/P (MAP) Pulse Ox O2 Delivery O2 Flow Rate FiO2 04/19/22 16:09 36.3 04/19/22 15:32 82 19 145/63 (90) Room Air 04/19/22 11:09 93 04/19/22 07:59 2.00 Capillary Refill : Less Than 3 SecondsLess Than 3 Seconds General Appearance: No Apparent Distress, Obese Respiratory: Lungs Clear, No Respiratory Distress Cardiovascular: Regular Rate, Rhythm, No Murmur Gastrointestinal: Normal Bowel Sounds, Soft Extremity: Normal Inspection, No Pedal Edema Neurologic/Psychiatric: Alert, Normal Mood/Affect Results/Procedures Lab Laboratory Tests 04/19/22 10:00 Patient resulted labs reviewed. Imaging: Reviewed Imaging Report Assessment/Plan Assessment and Plan Assess & Plan/Chief Complaint Closed displaced trimalleolar fracture of rt ankle s/p surgical repair 04/16 Pain regimen Bowel regimen PT/OT Incentive spirometry IRU denied by insurance SNF referral Medically stable for discharge, recommend expedited insurance authorization HTN Continue Amlodipine Continue Coreg Hyrdalazine as needed HLD CHF COPD Continue home medications Hyponatremia Continue salt tabs DVT prophylaxis: Lovenox Diagnosis/Problems Diagnosis/Problems (1) Closed displaced trimalleolar fracture of right ankle Qualifiers: Encounter type: initial encounter Qualified Codes: S82.851A - Displaced trimalleolar fracture of right lower leg, initial encounter for closed fracture (2) HTN (hypertension) Status: Chronic (3) HLD (hyperlipidemia) Status: Chronic (4) CAD (coronary artery disease) Status: Chronic (5) CHF (congestive heart failure) Status: Chronic (6) Hyponatremia Status: Chronic LONI NOGUERA MD Apr 19, 2022 17:16
[2022-04-19 20:30] VITALS: BP 151/83
[2022-04-19] MEDS: QUEtiapine 25 MG (SEROquel) TAB IMMEDIATE RELEASE PO SCH (20:32)
[2022-04-19] MEDS: MONTELUKAST 10 MG (SINGULAIR) TAB PO SCH (20:33)
[2022-04-19] MEDS: MIRTAZAPINE 15 MG (REMERON) TAB PO SCH (20:33)
[2022-04-19 23:21] VITALS: BP 128/71
[2022-04-20 03:58] VITALS: BP 148/68
[2022-04-20] MEDS: RT--FLUTICASONE/SALMETEROL 232-14 (AIRDUO RespiCLICK) IH SCH ×2 (07:14→18:54)
[2022-04-20 07:46] VITALS: BP 183/80
[2022-04-20] MEDS: amLODIPine 5 MG (NORVASC) TAB PO SCH (08:34)
[2022-04-20] MEDS: HYDROcodone/APAP 7.5 MG/325 MG (LORTAB, LORCET PLUS) TABLET PO PRN ×3 (08:34→23:35)
[2022-04-20] MEDS: QUEtiapine 100 MG (SEROquel) TAB IMMEDIATE RELEASE PO SCH (08:34)
[2022-04-20] MEDS: OXYBUTYNIN (DITROPAN) 5 MG TAB PO SCH ×2 (08:34→20:19)
[2022-04-20] MEDS: DOCUSATE SODIUM 100 MG (COLACE) CAP PO SCH ×2 (08:34→19:46)
[2022-04-20] MEDS: SENNOSIDES 8.6 MG (SENOKOT) TAB PO SCH ×2 (08:34→19:46)
[2022-04-20] MEDS: RIVASTIGMINE 1.5 MG (EXELON) CAP PO SCH ×2 (08:34→17:41)
[2022-04-20] MEDS: FLUTICASONE NASAL SPRAY (FLONASE) 16 GM BTL NS SCH (09:46)
[2022-04-20] MEDS: SODIUM CHLORIDE 1 GM TABLET PO SCH ×2 (09:46→20:19)
[2022-04-20] MEDS: ACETAMINOPHEN 325 MG TABLET PO PRN ×2 (09:47→18:19)
[2022-04-20 11:57] VITALS: BP 152/63
[2022-04-20] MEDS: ENOXAPARIN 40 MG/0.4 ML (LOVENOX) SYR SC SCH (12:23)
[2022-04-20 16:23] VITALS: BP 141/73
[2022-04-20] MEDS: LORazepam 0.5 MG (ATIVAN) TABLET PO PRN (18:18)
--- NOTE | 2022-04-20 18:44 | Progress Note - Hospitalist ---
Subjective HPI/CC On Admission Date Seen by Provider: Apr 20, 2022 Time Seen by Provider: 11:00 Vane Correia is a 81y/o F w/ a PMH of Afib w/ pacemaker, COPD, HTN, HLD, GI bleed who is being seen for right ankle pain. Pt reports that she fell this morning when she was getting out of bed and going to turn on a lamp. Her right foot got caught underneath her when she fell. Denies having any dizziness before the fall and states that "she just fell". Says that after the fall that she was unable to get up off the floor and had to yell for her daughter to come help her. EMS was called and pt was then transported to the ER. There she was found to have a closed displaced trimalleolar fracture. The fracture was reduced in the ER. Currently pt reports that pain is a 7-8/10. The pain increases w/ movement and when she gets pain medication the pain does decrease. Able to feel sensation in toes on right foot. Denies that she hit her head when she fell and does not have any head or neck pain. She does endorse a history of falls. Denies having any other concerns when asked. Subjective/Events-last exam She is feeling well. Today is her birthday. She is sitting in her chair watching cake decorating videos on her phone. She has no complaints. Objective Exam Vital Signs Vital Signs Date Time Temp Pulse Resp B/P (MAP) Pulse Ox O2 Delivery O2 Flow Rate FiO2 04/20/22 18:19 37.8 04/20/22 16:23 74 20 141/73 (95) 93 Room Air 04/20/22 08:29 0.00 Capillary Refill : Less Than 3 SecondsLess Than 3 Seconds General Appearance: No Apparent Distress, Obese Respiratory: Lungs Clear, No Respiratory Distress Cardiovascular: Regular Rate, Rhythm, No Murmur Gastrointestinal: Normal Bowel Sounds, Soft Extremity: Normal Inspection, Pedal Edema Neurologic/Psychiatric: Alert, Normal Mood/Affect Skin: Normal Color, Warm/Dry Results/Procedures Lab Patient resulted labs reviewed. Imaging: Reviewed Imaging Report Assessment/Plan Assessment and Plan Assess & Plan/Chief Complaint Closed displaced trimalleolar fracture of rt ankle s/p surgical repair 04/16 Pain regimen Bowel regimen PT/OT Incentive spirometry IRU denied by insurance SNF referral Medically stable for discharge, recommend expedited insurance authorization HTN Continue Amlodipine Continue Coreg Hyrdalazine as needed HLD CHF COPD Continue home medications Hyponatremia Continue salt tabs DVT prophylaxis: Lovenox Diagnosis/Problems Diagnosis/Problems (1) Closed displaced trimalleolar fracture of right ankle Qualifiers: Encounter type: initial encounter Qualified Codes: S82.851A - Displaced trimalleolar fracture of right lower leg, initial encounter for closed fracture (2) HTN (hypertension) Status: Chronic (3) HLD (hyperlipidemia) Status: Chronic (4) CAD (coronary artery disease) Status: Chronic (5) CHF (congestive heart failure) Status: Chronic (6) Hyponatremia Status: Chronic LONI NOGUERA MD Apr 20, 2022 18:44
[2022-04-20] MEDS: MIRTAZAPINE 15 MG (REMERON) TAB PO SCH (20:19)
[2022-04-20] MEDS: QUEtiapine 25 MG (SEROquel) TAB IMMEDIATE RELEASE PO SCH (20:19)
[2022-04-20] MEDS: MONTELUKAST 10 MG (SINGULAIR) TAB PO SCH (20:19)
[2022-04-20 20:40] VITALS: BP 135/61
[2022-04-20] MEDS ORDERED: PANTOPRAZOLE 40 MG (PROTONIX) VIAL IV ONE (21:00)
[2022-04-21 00:08] VITALS: BP 185/77
[2022-04-21 04:00] VITALS: BP 155/72
[2022-04-21 05:34] LABS: HEMOGLOBIN 9.2 g/dL (11.5-16.0)
[2022-04-21 05:52] LABS: CALCIUM 9.3 MG/DL (8.5-10.1); CREATININE SERUM 0.72 MG/DL (0.60-1.30); POTASSIUM 3.9 MMOL/L (3.6-5.0)
[2022-04-21 07:21] VITALS: BP 185/81
[2022-04-21] MEDS: OXYBUTYNIN (DITROPAN) 5 MG TAB PO SCH ×2 (08:03→20:04)
[2022-04-21] MEDS: SODIUM CHLORIDE 1 GM TABLET PO SCH ×2 (08:03→20:04)
[2022-04-21] MEDS: RIVASTIGMINE 1.5 MG (EXELON) CAP PO SCH ×2 (08:03→17:42)
[2022-04-21] MEDS: QUEtiapine 100 MG (SEROquel) TAB IMMEDIATE RELEASE PO SCH (08:03)
[2022-04-21] MEDS: amLODIPine 5 MG (NORVASC) TAB PO SCH (08:03)
[2022-04-21] MEDS: FLUTICASONE NASAL SPRAY (FLONASE) 16 GM BTL NS SCH (08:05)
[2022-04-21] MEDS: SENNOSIDES 8.6 MG (SENOKOT) TAB PO SCH ×2 (08:08→20:04)
[2022-04-21] MEDS: DOCUSATE SODIUM 100 MG (COLACE) CAP PO SCH ×2 (08:08→20:04)
[2022-04-21] MEDS: RT--FLUTICASONE/SALMETEROL 232-14 (AIRDUO RespiCLICK) IH SCH ×2 (08:49→21:58)
[2022-04-21] MEDS ORDERED: PANTOPRAZOLE 40 MG (PROTONIX) VIAL IV SCH (09:00)
--- NOTE | 2022-04-21 09:53 | Physical Therapy Daily Note ---
PT Daily Note-Current Subjective Patient initially declined PT due to "being tired". However, after much encouragement, patient agrees. Pain Numeric Pain Scale: 5-Moderate Pain Location: Right Location Body Site: Ankle Pain Description: Acute Section J - Health Conditions 1. Rarely or not at all 2. Occasionally 3. Frequently 4. Almost constantly 8. Unable to answer Pain Effect on Sleep: 2 Pain Interference with Therapy: 2 Pain Interference w/Day-to-Day: 2 Mental Status Patient Orientation: Person, Time, Situation Transfers SCALE: Activities may be completed with or without assistive devices. 6-Hqwwcpqrdj-cgzewob completes the activity by him/herself with no assistance from a helper. 5-Set-up or Clean-up Assistance-helper sets up or cleans up; patient completes activity. [place] assists only prior to or following the activity. 4-Supervision or Touching Assistance-helper provides verbal cues and/or touching/steadying and/or contact guard assistance as patient completes ac tivity. Assistance may be provided throughout the activity or intermittently. 3-Partial/Moderate Assistance-helper does LESS THAN HALF the effort. [place] lifts, holds or supports trunk or limbs, but provides less than half the effort. 2-Substantial/Maximal Assistance-helper does MORE THAN HALF the effort. [place] lifts or holds trunk or limbs and provides more than half the effort. 8-Trmqruyvn-iezibd does ALL the effort. Patient does none of the effort to complete the activity. Or, the assistance of 2 or more helpers is required for the patient to complete the activity. If activity was not attempted, code reason: 7-Patient Refused. 9-Not Applicable-not attempted and the patient did not perform the activity before the current illness, exacerbation or injury. 10-Not Attempted due to Environmental Limitations-(lack of equipment, weather restraints, etc.). 88-Not Attempted due to Medical Conditions or Safety Concerns. Lying to Sitting/Side of Bed(Q: 2 Sit to Stand (QC): 2 Chair/Bjt-ri-Svnjv Xfer(QC): 2 Patient unable to comply with NWB right LE with CAM boot in place. Weight Bearing Right Lower Extremity: Right Non Weight Bearing Left Lower Extremity: Left Full Weight Bearing Unable to comply with NWB R with verbal and tactile cues Exercises Supine Ex: Quad Set, Heel Slides, Straight leg raise, Hip abd/add Supine Reps: 12 (AAROM right LE due to weight of CAM boot) Seated Therapy Exercises: Long arc quads, Hip flexion Seated Reps: 12 Assessment Patient requires time to complete all functional tasks and is up in recliner with bilateral LE elevated. Patient continues to have difficulty with NWB right LE. PT Motor Mechanic Goals Motor Mechanic Goals PT Fdc Goals Time Frame: May 03, 2022 Roll Left & Right (QC): 2 Sit to Lying (QC): 2 Lying-Sitting on Side/Bed(QC): 2 Sit to Stand (QC): 2 Chair/Ecs-ly-Swkml Xfer(QC): 2 PT Plan Treatment/Plan Treatment Plan: Continue Plan of Care Treatment Plan: Bed Mobility, Education, Functional Activity Leonel, Functional Strength, Gait, Safety, Therapeutic Exercise, Transfers Treatment Duration: May 03, 2022 Frequency: 6 times per week (6-11 will determine later) Estimated Hrs Per Day: .25 hour per day Time Time In: 853 Time Out: 916 DATE: Apr 21, 2022 Total Billed Treatment Time: 23 Total Billed Treatment 1 visit FA 8 min EX 15 min INDIRA PEREZ PT Apr 21, 2022 09:53
[2022-04-21] MEDS: HYDROcodone/APAP 7.5 MG/325 MG (LORTAB, LORCET PLUS) TABLET PO PRN ×2 (10:53→20:06)
[2022-04-21 11:43] VITALS: BP 168/74
--- NOTE | 2022-04-21 11:54 | Progress Note - Hospitalist ---
Subjective HPI/CC On Admission Date Seen by Provider: Apr 21, 2022 Vane Correia is a 81y/o F w/ a PMH of Afib w/ pacemaker, COPD, HTN, HLD, GI bleed who is being seen for right ankle pain. Pt reports that she fell this morning when she was getting out of bed and going to turn on a lamp. Her right foot got caught underneath her when she fell. Denies having any dizziness before the fall and states that "she just fell". Says that after the fall that she was unable to get up off the floor and had to yell for her daughter to come help her. EMS was called and pt was then transported to the ER. There she was found to have a closed displaced trimalleolar fracture. The fracture was reduced in the ER. Currently pt reports that pain is a 7-8/10. The pain increases w/ movement and when she gets pain medication the pain does decrease. Able to feel sensation in toes on right foot. Denies that she hit her head when she fell and does not have any head or neck pain. She does endorse a history of falls. Denies having any other concerns when asked. Subjective/Events-last exam Pt reports doing well. Complains of leg pain. Had dark stool yesterday and FOBT+ but no further dark stools. On PPI. Hgb ~9 down a little from yesterday. Objective Exam Vital Signs Vital Signs Date Time Temp Pulse Resp B/P (MAP) Pulse Ox O2 Delivery O2 Flow Rate FiO2 04/21/22 11:43 36.8 73 18 168/74 (105) 94 Room Air 04/21/22 08:49 0.00 Capillary Refill : Less Than 3 SecondsLess Than 3 Seconds General Appearance: No Apparent Distress, Anxious, Chronically ill Respiratory: Lungs Clear, No Respiratory Distress Cardiovascular: Regular Rate, Rhythm, No Murmur Neurologic/Psychiatric: Alert, Other (oriented to person and place) Results/Procedures Lab Laboratory Tests 04/21/22 05:27 Patient resulted labs reviewed. Imaging: Reviewed Imaging Report Assessment/Plan Assessment and Plan Assess & Plan/Chief Complaint Closed displaced trimalleolar fracture of rt ankle s/p surgical repair 04/16 Pain regimen Bowel regimen PT/OT Incentive spirometry IRU denied by insurance SNF referral Dark stools HDS Hgb down slightly today, will trend Continue PPI HTN Continue Amlodipine Continue Coreg Hyrdalazine as needed HLD CHF COPD Continue home medications Hyponatremia Continue salt tabs DVT prophylaxis: SCDs as able TRACEE FLETCHER MD Apr 21, 2022 11:54 am
[2022-04-21] MEDS: ENOXAPARIN 40 MG/0.4 ML (LOVENOX) SYR SC SCH (11:56)
--- NOTE | 2022-04-21 14:02 | Physical Therapy Daily Note ---
PT Daily Note-Current Subjective Patient continues to c/o being tired. Declined OOB activity. Agrees to exercises. Pain Section J - Health Conditions 1. Rarely or not at all 2. Occasionally 3. Frequently 4. Almost constantly 8. Unable to answer Pain Effect on Sleep: 2 Pain Interference with Therapy: 2 Pain Interference w/Day-to-Day: 2 Transfers SCALE: Activities may be completed with or without assistive devices. 9-Fznggzdeof-spgzggp completes the activity by him/herself with no assistance from a helper. 5-Set-up or Clean-up Assistance-helper sets up or cleans up; patient completes activity. [place] assists only prior to or following the activity. 4-Supervision or Touching Assistance-helper provides verbal cues and/or touchi ng/steadying and/or contact guard assistance as patient completes activity. Assistance may be provided throughout the activity or intermittently. 3-Partial/Moderate Assistance-helper does LESS THAN HALF the effort. [place] lifts, holds or supports trunk or limbs, but provides less than half the effort. 2-Substantial/Maximal Assistance-helper does MORE THAN HALF the effort. [place] lifts or holds trunk or limbs and provides more than half the effort. 0-Qvxwtvydt-vuubwc does ALL the effort. Patient does none of the effort to complete the activity. Or, the assistance of 2 or more helpers is required for the patient to complete the activity. If activity was not attempted, code reason: 7-Patient Refused. 9-Not Applicable-not attempted and the patient did not perform the activity before the current illness, exacerbation or injury. 10-Not Attempted due to Environmental Limitations-(lack of equipment, weather restraints, etc.). 88-Not Attempted due to Medical Conditions or Safety Concerns. Weight Bearing Right Lower Extremity: Right Non Weight Bearing Left Lower Extremity: Left Full Weight Bearing Unable to comply with NWB R with verbal and tactile cues Exercises Supine Ex: Quad Set, Heel Slides, Straight leg raise, Hip abd/add Supine Reps: 12 (AAROM bilaterally) Assessment Patient tolerated treatment and remains in bed with needs met. PT to increase activity as tolerated by patient. PT Snf Goals Dry Primer Powder Blender Goals PT Dry Primer Powder Blender Goals Time Frame: May 03, 2022 Roll Left & Right (QC): 2 Sit to Lying (QC): 2 Lying-Sitting on Side/Bed(QC): 2 Sit to Stand (QC): 2 Chair/Qya-ul-Pukxe Xfer(QC): 2 PT Plan Treatment/Plan Treatment Plan: Continue Plan of Care Treatment Plan: Bed Mobility, Education, Functional Activity Leonel, Functional Strength, Gait, Safety, Therapeutic Exercise, Transfers Treatment Duration: May 03, 2022 Frequency: 6 times per week (6-11 will determine later) Estimated Hrs Per Day: .25 hour per day Time Time In: 1331 Time Out: 1341 DATE: Apr 21, 2022 Total Billed Treatment Time: 10 Total Billed Treatment 1 visit EX 10 min INDIRA PEREZ PT Apr 21, 2022 14:02
[2022-04-21 15:24] VITALS: BP 173/69
[2022-04-21] MEDS: QUEtiapine 25 MG (SEROquel) TAB IMMEDIATE RELEASE PO SCH (20:04)
[2022-04-21] MEDS: MIRTAZAPINE 15 MG (REMERON) TAB PO SCH (20:04)
[2022-04-21] MEDS: LORazepam 0.5 MG (ATIVAN) TABLET PO PRN (20:04)
[2022-04-21] MEDS: MONTELUKAST 10 MG (SINGULAIR) TAB PO SCH (20:04)
[2022-04-21 21:57] VITALS: BP 131/61
[2022-04-22] VITALS (9 sets, daily range): BP systolic 147–190; BP diastolic 68–83
[2022-04-22] MEDS: RT--FLUTICASONE/SALMETEROL 232-14 (AIRDUO RespiCLICK) IH SCH ×2 (07:36→21:09)
[2022-04-22] MEDS: RIVASTIGMINE 1.5 MG (EXELON) CAP PO SCH ×2 (08:12→17:53)
[2022-04-22] MEDS: FLUTICASONE NASAL SPRAY (FLONASE) 16 GM BTL NS SCH (08:13)
[2022-04-22] MEDS: SENNOSIDES 8.6 MG (SENOKOT) TAB PO SCH ×2 (08:13→20:03)
[2022-04-22] MEDS: amLODIPine 5 MG (NORVASC) TAB PO SCH (08:13)
[2022-04-22] MEDS: PANTOPRAZOLE 40 MG (PROTONIX) TAB PO SCH (08:13)
[2022-04-22] MEDS: OXYBUTYNIN (DITROPAN) 5 MG TAB PO SCH ×2 (08:13→20:01)
[2022-04-22] MEDS: DOCUSATE SODIUM 100 MG (COLACE) CAP PO SCH ×2 (08:13→20:02)
[2022-04-22] MEDS: QUEtiapine 100 MG (SEROquel) TAB IMMEDIATE RELEASE PO SCH (09:10)
[2022-04-22] MEDS: SODIUM CHLORIDE 1 GM TABLET PO SCH ×2 (09:10→20:01)
[2022-04-22 09:38] LABS: HEMATOCRIT 30 % (35-52); HEMOGLOBIN 9.9 g/dL (11.5-16.0); MEAN CORPUSCULAR HEMOGLOBIN 29 pg (25-34); MEAN CORPUSCULAR HGB CONC 33 g/dL (32-36); MEAN CORPUSCULAR VOLUME 88 fL (80-99); MEAN PLATELET VOLUME 8.6 fL (9.0-12.2); PLATELET COUNT 558 10^3/uL (130-400); WHITE BLOOD COUNT 11.4 10^3/uL (4.3-11.0)
--- NOTE | 2022-04-22 09:54 | Physical Therapy Daily Note ---
PT Daily Note-Current Subjective Patient is very confused but pleasant. Agrees to PT. Pain Section J - Health Conditions 1. Rarely or not at all 2. Occasionally 3. Frequently 4. Almost constantly 8. Unable to answer Pain Effect on Sleep: 2 Pain Interference with Therapy: 2 Pain Interference w/Day-to-Day: 2 Mental Status Patient Orientation: Confused Transfers SCALE: Activities may be completed with or without assistive devices. 8-Sejyupifbl-awjookg completes the activity by him/herself with no assistance from a helper. 5-Set-up or Clean-up Assistance-helper sets up or cleans up; patient completes activity. [place] assists only prior to or following the activity. 4-Supervision or Touching Assistance-helper provides verbal cues and/or touching/steadying and/or contact guard assistance as patient completes activity. Assistance may be provided throughout the activity or intermittently. 3-Partial/Moderate Assistance-helper does LESS THAN HALF the effort. [place] lifts, holds or supports trunk or limbs, but provides less than half the effort. 2-Substantial/Maximal Assistance-helper does MORE THAN HALF the effort. [place] lifts or holds trunk or limbs and provides more than half the effort. 1-Yxzpmmviu-bapgwh does ALL the effort. Patient does none of the effort to complete the activity. Or, the assistance of 2 or more helpers is required for the patient to complete the activity. If activity was not attempted, code reason: 7-Patient Refused. 9-Not Applicable-not attempted and the patient did not perform the activity before the current illness, exacerbation or injury. 10-Not Attempted due to Environmental Limitations-(lack of equipment, weather restraints, etc.). 88-Not Attempted due to Medical Conditions or Safety Concerns. Lying to Sitting/Side of Bed(Q: 2 Sit to Stand (QC): 2 Chair/Cib-xe-Qymar Xfer(QC): 2 Weight Bearing Right Lower Extremity: Right Non Weight Bearing Left Lower Extremity: Left Full Weight Bearing Unable to comply with NWB R with verbal and tactile cues Exercises Supine Ex: Heel Slides, Straight leg raise, Hip abd/add Supine Reps: 12 (AAROM) Seated Therapy Exercises: Long arc quads Seated Reps: 15 (AAROM) Assessment Patient up in recliner with needs met. Continues to be unable to comply with NWB right LE. PT Intermediate Goals Anime Designer Goals PT Anime Designer Goals Time Frame: May 03, 2022 Roll Left & Right (QC): 2 Sit to Lying (QC): 2 Lying-Sitting on Side/Bed(QC): 2 Sit to Stand (QC): 2 Chair/Juj-pi-Fxudd Xfer(QC): 2 PT Plan Treatment/Plan Treatment Plan: Continue Plan of Care Treatment Plan: Bed Mobility, Education, Functional Activity Leonel, Functional Strength, Gait, Safety, Therapeutic Exercise, Transfers Treatment Duration: May 03, 2022 Frequency: 6 times per week (6-11 will determine later) Estimated Hrs Per Day: .25 hour per day Time Time In: 915 Time Out: 925 DATE: Apr 22, 2022 Total Billed Treatment Time: 10 Total Billed Treatment 1 visit EX 10 min INDIRA PEREZ PT Apr 22, 2022 09:54
--- NOTE | 2022-04-22 13:31 | Progress Note - Hospitalist ---
Subjective HPI/CC On Admission Date Seen by Provider: Apr 22, 2022 Vane Correia is a 81y/o F w/ a PMH of Afib w/ pacemaker, COPD, HTN, HLD, GI bleed who is being seen for right ankle pain. Pt reports that she fell this morning when she was getting out of bed and going to turn on a lamp. Her right foot got caught underneath her when she fell. Denies having any dizziness before the fall and states that "she just fell". Says that after the fall that she was unable to get up off the floor and had to yell for her daughter to come help her. EMS was called and pt was then transported to the ER. There she was found to have a closed displaced trimalleolar fracture. The fracture was reduced in the ER. Currently pt reports that pain is a 7-8/10. The pain increases w/ movement and when she gets pain medication the pain does decrease. Able to feel sensation in toes on right foot. Denies that she hit her head when she fell and does not have any head or neck pain. She does endorse a history of falls. Denies having any other concerns when asked. Subjective/Events-last exam Pt reports doing well. No complaints. Looking at what to order for lunch. Discussed plan for DC to NH and she is agreeable. Objective Exam Vital Signs Vital Signs Date Time Temp Pulse Resp B/P (MAP) Pulse Ox O2 Delivery O2 Flow Rate FiO2 04/22/22 12:22 36.6 78 18 147/68 (94) 94 Room Air 04/22/22 08:00 0.00 Capillary Refill : Less Than 3 SecondsLess Than 3 Seconds General Appearance: No Apparent Distress, Chronically ill, Obese Respiratory: Lungs Clear, No Respiratory Distress Cardiovascular: Regular Rate, Rhythm, No Murmur Gastrointestinal: Normal Bowel Sounds, Non Tender, Soft Neurologic/Psychiatric: Alert, Oriented x3 Results/Procedures Lab Laboratory Tests 04/22/22 09:31 Patient resulted labs reviewed. Imaging: Reviewed Imaging Report Assessment/Plan Assessment and Plan Assess & Plan/Chief Complaint Closed displaced trimalleolar fracture of rt ankle s/p surgical repair 04/16 Pain regimen Bowel regimen PT/OT Incentive spirometry IRU denied by insurance SNF referral- awaiting authorization Dark stools Hgb up today- no further dark stools Continue PPI HTN Continue Amlodipine Continue Coreg Hyrdalazine as needed HLD CHF COPD Continue home medications Hyponatremia Continue salt tabs DVT prophylaxis: SCDs as able TRACEE FLETCHER MD Apr 22, 2022 13:31
--- NOTE | 2022-04-22 14:17 | Physical Therapy Progress Note ---
Therapy Progress Note Patient declined p.m. treatment due to extreme fatigue. Patient requests to just rest. PT to resume in a.m. 1 ref INDIRA PEREZ PT Apr 22, 2022 14:17
--- NOTE | 2022-04-22 14:19 | Discharge Inst-Skilled Nursing ---
Discharge Inst-Skilled NF Chief Complaint Vane Correia is a 81y/o F w/ a PMH of Afib w/ pacemaker, COPD, HTN, HLD, GI bleed who is being seen for right ankle pain. Pt reports that she fell this morning when she was getting out of bed and going to turn on a lamp. Her right foot got caught underneath her when she fell. Denies having any dizziness before the fall and states that "she just fell". Says that after the fall that she was unable to get up off the floor and had to yell for her daughter to come help her. EMS was called and pt was then transported to the ER. There she was found to have a closed displaced trimalleolar fracture. The fracture was reduced in the ER. Currently pt reports that pain is a 7-8/10. The pain increases w/ movement and when she gets pain medication the pain does decrease. Able to feel sensation in toes on right foot. Denies that she hit her head when she fell and does not have any head or neck pain. She does endorse a history of falls. Denies having any other concerns when asked. Consult/Follow Up/Orders Skilled NF Admit to: [facility] Certification (SNF) I certify that SNF services are required to be given on an inpatient basis mini use of the above named patient's need for correction care on a continuing basis for the conditions(s) for which he/she was receiving inpatient hospital services prior to his/her transfer to the SNF. Senior Living Facility Order: Nursing Services, Breaker Machine Operator-Evaluate & Treat, Physical Therapy-Evaluate & Treat Oxygen Delivery Method: Room Air Discharge Diet: Low Sodium Diet Daily Activity as Tolerated: Yes Resuscitation Status: Full Code New & Resume Previous Orders Leny Wright Apr 22, 2022 14:17 LENY WRIGHT MD Apr 22, 2022 14:18
[2022-04-22] MEDS: HYDROcodone/APAP 7.5 MG/325 MG (LORTAB, LORCET PLUS) TABLET PO PRN ×2 (15:51→20:02)
[2022-04-22] MEDS: hydrALAZINE (APESOLINE) 20 MG/ML VIAL IV PRN (17:51)
[2022-04-22] MEDS: QUEtiapine 25 MG (SEROquel) TAB IMMEDIATE RELEASE PO SCH (20:01)
[2022-04-22] MEDS: MIRTAZAPINE 15 MG (REMERON) TAB PO SCH (20:01)
[2022-04-22] MEDS: MONTELUKAST 10 MG (SINGULAIR) TAB PO SCH (20:01)
[2022-04-23 03:05] VITALS: BP 168/72
[2022-04-23] MEDS: amLODIPine 5 MG (NORVASC) TAB PO SCH (07:43)
[2022-04-23] MEDS: OXYBUTYNIN (DITROPAN) 5 MG TAB PO SCH (07:43)
[2022-04-23] MEDS: PANTOPRAZOLE 40 MG (PROTONIX) TAB PO SCH (07:43)
[2022-04-23] MEDS: RIVASTIGMINE 1.5 MG (EXELON) CAP PO SCH (07:43)
[2022-04-23] MEDS: DOCUSATE SODIUM 100 MG (COLACE) CAP PO SCH (07:43)
[2022-04-23] MEDS: QUEtiapine 100 MG (SEROquel) TAB IMMEDIATE RELEASE PO SCH (07:43)
[2022-04-23] MEDS: FLUTICASONE NASAL SPRAY (FLONASE) 16 GM BTL NS SCH (07:44)
[2022-04-23] MEDS: SENNOSIDES 8.6 MG (SENOKOT) TAB PO SCH (07:44)
[2022-04-23] MEDS: SODIUM CHLORIDE 1 GM TABLET PO SCH (07:44)
[2022-04-23] MEDS: hydrALAZINE (APESOLINE) 20 MG/ML VIAL IV PRN (07:48)
[2022-04-23] MEDS: RT--FLUTICASONE/SALMETEROL 232-14 (AIRDUO RespiCLICK) IH SCH (07:53)
[2022-04-23 07:56] VITALS: BP 188/88
--- NOTE | 2022-04-23 09:50 | Physical Therapy Daily Note ---
PT Daily Note-Current Subjective Patient in bed pre-tx, reports pain in R leg but did not score, agrees to PT after some encouragement. Pain Section J - Health Conditions 1. Rarely or not at all 2. Occasionally 3. Frequently 4. Almost constantly 8. Unable to answer Pain Effect on Sleep: 2 Pain Interference with Therapy: 2 Pain Interference w/Day-to-Day: 2 Appearance Patient in recliner post-tx with nurse in room giving covid test. Mental Status Patient Orientation: Person, Place, Situation Attachments: [place] Catheter Transfers SCALE: Activities may be completed with or without assistive devices. 8-Sevcsxptvt-qvzerzy completes the activity by him/herself with no assistance from a helper. 5-Set-up or Clean-up Assistance-helper sets up or cleans up; patient completes activity. [place] assists only prior to or following the activity. 4-Supervision or Touching Assistance-helper provides verbal cues and/or touching/steadying and/or contact guard assistance as patient completes activity. Assistance may be provided throughout the activity or intermittently. 3-Partial/Moderate Assistance-helper does LESS THAN HALF the effort. [place] lifts, holds or supports trunk or limbs, but provides less than half the effort. 2-Substantial/Maximal Assistance-helper does MORE THAN HALF the effort. [place] lifts or holds trunk or limbs and provides more than half the effort. 4-Cxiokkyca-qqpyxi does ALL the effort. Patient does none of the effort to complete the activity. Or, the assistance of 2 or more helpers is required for the patient to complete the activity. If activity was not attempted, code reason: 7-Patient Refused. 9-Not Applicable-not attempted and the patient did not perform the activity before the current illness, exacerbation or injury. 10-Not Attempted due to Environmental Limitations-(lack of equipment, weather restraints, etc.). 88-Not Attempted due to Medical Conditions or Safety Concerns. Roll Left & Right (QC): 3 Lying to Sitting/Side of Bed(Q: 3 Sit to Stand (QC): 3 Min A with bed mobility needing a hand to pull herself up, Min A for sit to stand with elevated bed. Weight Bearing Right Lower Extremity: Right Non Weight Bearing Left Lower Extremity: Left Full Weight Bearing Unable to comply with NWB R with verbal and tactile cues Treatments Transfer bed to recliner Assessment Current Status: Fair Progress Patient unable to ambulate with NWB L ankle, patient reports extremely exhausted and wants to get some sleep after transferring to recliner PT Cruller Maker Machine Goals Cruller Maker Machine Goals PT Longterm Goals Time Frame: May 03, 2022 Roll Left & Right (QC): 2 Sit to Lying (QC): 2 Lying-Sitting on Side/Bed(QC): 2 Sit to Stand (QC): 2 Chair/Gqb-hf-Twxgi Xfer(QC): 2 PT Plan Problem List Problem List: Activity Tolerance, Functional Strength, Safety, Balance, Gait, Transfer, Bed Mobility, ROM Treatment/Plan Treatment Plan: Continue Plan of Care Treatment Plan: Bed Mobility, Education, Functional Activity Leonel, Functional Strength, Gait, Safety, Therapeutic Exercise, Transfers Treatment Duration: May 03, 2022 Frequency: 6 times per week (6-11 will determine later) Estimated Hrs Per Day: .25 hour per day Safety Risks/Education Patient Education: Transfer Techniques, Correct Positioning, Safety Issues Teaching Recipient: Patient Teaching Methods: Demonstration, Discussion Response to Teaching: Reinforcement Needed Time Time In: 916 Time Out: 926 DATE: Apr 23, 2022 Total Billed Treatment Time: 10 Total Billed Treatment 1 visit FA 10min REUBEN SEVERINO PT Apr 23, 2022 09:50
[2022-04-23] MEDS ORDERED: AMLO-251 PO (10:46)
[2022-04-23] MEDS ORDERED: HYDR-34 PO (10:46)
[2022-04-23] MEDS ORDERED: CARV6.252 PO (10:46)
[2022-04-23] MEDS ORDERED: NF-NACL1GT PO (10:46)
--- NOTE | 2022-04-23 10:53 | Discharge Summary ---
Diagnosis/Chief Complaint Date of Admission Apr 15, 2022 at 10:37 Date of Discharge Discharge Date: Apr 23, 2022 Admission Diagnosis Primary Care Romeo Kent MD Discharge Diagnosis (1) Closed displaced trimalleolar fracture of right ankle (2) HTN (hypertension) Status: Chronic (3) HLD (hyperlipidemia) Status: Chronic (4) CAD (coronary artery disease) Status: Chronic (5) CHF (congestive heart failure) Status: Chronic (6) Hyponatremia Status: Chronic Discharge Summary Discharge Physical Exam Allergies: Coded Allergies: Penicillins (Verified Allergy, Mild, 04/15/22) ketorolac (Verified Allergy, Mild, 04/15/22) morphine (Verified Allergy, Mild, pt has received Lortab in the past, 04/16/22) tetracycline (Verified Allergy, Mild, 04/15/22) paroxetine (Verified Allergy, Unknown, 04/15/22) Vitals & I&Os Vital Signs Date Time Temp Pulse Resp B/P (MAP) Pulse Ox O2 Delivery O2 Flow Rate FiO2 04/23/22 12:10 37.4 76 20 188/88 94 Room Air 0.00 General Appearance: No Apparent Distress, Chronically ill Neurologic/Psychiatric: Alert, Oriented x3 Hospital Course Patient was admitted to the hospital secondary to a right trimalleolar ankle fracture. She underwent ORIF of right medial and lateral malleoli by Dr. Horn. She did very well and was referred to inpatient rehab but this was denied by insurance. Referral was then placed to custodial where she was accepted and discharged in stable and improved condition. She did have a drop in her hemoglobin following surgery but this stabilized and recommended outpatient follow-up with surgery at [facility] was positive. Labs (last 24 hrs) Microbiology 04/15/22 MRSA Screen - Final, Complete Patient resulted labs reviewed. Pending Labs Imaging: Reviewed Imaging Report Discussion & Recommendations Discharge Planning: >30 minutes discharge planning Discharge Home Medications: Active Scripts Active Sodium Chloride 1 Gram Tab 1 Gm PO BID HYDROcodone/APAP 7.5/325 TAB (Acetaminophen/Hydrocodone Bitart) 1 Ea Tablet 1 Ea PO Q4H PRN Amlodipine Besylate 10 Mg Tablet 10 Mg PO DAILY Carvedilol 6.25 Mg Tablet 6.25 Mg PO BID Hydrocodone-Acetamin 7.5-325 (Hydrocodone/Acetaminophen) 7.5 Mg-325 Mg Tablet 1 Each PO Q4H PRN 7 Days Reported Melatonin 5 Mg Tablet 5 Mg PO HS Systane 0.3-0.4% Eye Drops (Propylene Glycol/Peg 400) 0.3 %-0.4 % Drops 1-2 Drop OU UD PRN Albuterol Sulfate 1.25 Mg/3 Ml Vial.neb 3 Ml NEB Q8H PRN K-Tab ER (Potassium Chloride) 10 Meq Tablet.er 10 Meq PO DAILY Loperamide (Loperamide HCl) 2 Mg Capsule 2-4 Mg PO UD PRN Breo Ellipta 200-25 Mcg INH (Fluticasone/Vilanterol) 200 Mcg-25 Mcg/Dose Blst.w.dev 1 Puff INH DAILY Furosemide 20 Mg Tablet 20 Mg PO DAILY PRN Ativan (Lorazepam) 0.5 Mg Tablet 0.5 Mg PO BID Benzonatate 200 Mg Capsule 200 Mg PO TID PRN Vitamin D2 (Ergocalciferol (Vitamin D2)) 1,250 Mcg (57734 Unit) Capsule 1,250 Mcg PO MON Mupirocin 2 % Oint...g. 1 Applic TOP TID Pravastatin Sodium 40 Mg Tablet 40 Mg PO HS Pantoprazole Sodium 40 Mg Tablet.dr 40 Mg PO DAILY Mirtazapine 15 Mg Tablet 15 Mg PO HS Fexofenadine-Pse ER 180-240 Tb (Fexofenadine/Pseudoephedrine) 1 Each Tab.er.24h 1 Each PO DAILY Quetiapine Fumarate 100 Mg Tablet 50 Mg PO HS TAKES OF A 100MG Quetiapine Fumarate 100 Mg Tablet 100 Mg PO DAILY Oxybutynin Chloride ER (Oxybutynin Chloride) 10 Mg Tab.er.24 10 Mg PO DAILY Rivastigmine (Rivastigmine Tartrate) 1.5 Mg Capsule 1.5 Mg PO BID Fluticasone Propionate 50 Mcg/Actuation [place].susp 1 [place] NS BID PRN Calcium 600 + Vit D 200 Tablet (Calcium Carbonate/Vitamin D3) 1 Each Tablet 1 Tab PO BID Tylenol Extra Strength (Acetaminophen) 500 Mg Tablet 1,000 Mg PO TID TAKES 2 (500 MG) TABLETS Montelukast Sodium 10 Mg Tablet 10 Mg PO DAILY Instructions to patient/family Please see electronic discharge instructions given to patient. Problem Qualifiers (1) Closed displaced trimalleolar fracture of right ankle: Encounter type: initial encounter Qualified Codes: S82.851A - Displaced trimalleolar fracture of right lower leg, initial encounter for closed fracture TRACEE FLETCHER MD Apr 23, 2022 10:53
[2022-04-23 12:10] VITALS: BP 188/88
== END 2022-04-23 12:10 ==
LOC: EDUNIT# 05:47 → ER 05:47 → 4TH 10:37
PROVIDERS: ADMIT Internal Medicine; ATTEND Internal Medicine
DX: S82.851A Displaced trimalleolar fracture of right lower leg, initial encounter for closed fracture (principal); I11.0 Hypertensive heart disease with heart failure; E78.5 Hyperlipidemia, unspecified; I50.9 Heart failure, unspecified; J44.9 Chronic obstructive pulmonary disease, unspecified; E87.1 Hypo-osmolality and hyponatremia; D72.829 Elevated white blood cell count, unspecified; I25.10 Atherosclerotic heart disease of native coronary artery without angina pectoris; W18.30XA Fall on same level, unspecified, initial encounter; Z79.899 Other long term (current) drug therapy
CPT/HCPCS: 27822; 27842; 29515; 51702; 71045; 73610; 73630; 76000; 80048 ×5; 81000; 82274; 83735; 83880; 85007; 85014 ×4; 85018 ×4; 85025; 85027 ×2; 86141; 86850; 86900; 86901; 87081; 87636; 93005; 93041; 94640 ×7; 94664; 94760 ×7; 96372 ×6; 96374; 96375 ×4; 96376 ×6; 97110 ×3; 97162; 97165; 97530 ×5; 99285; C1713 ×7; G0378; 36415

== ENCOUNTER 2022-05-27 09:28 | Emergency (ER) | payer MEDICARE, MEDICAID ==
[~2022-05-27] VITALS: Ht 160 cm; Wt 97.5 kg
[~2022-05-27 09:28] MED LIST changes: +ALBU1.25 NEB; +BENZ200C51 PO; +CARV6.252 PO; +CEPH500C PO; +ERGO1250 PO; +FLUT1BLS INH; +HYDR-34 PO; +HYDR-3817 PO; +LOPE2CAP PO; +MELA5TAB14 PO; +MUPI22OI2 TOP; +NF-NACL1GT PO; +POTA10TA PO
--- NOTE | 2022-05-27 09:56 | ED General ---
General Chief Complaint: Altered Mental Status Stated Complaint: ALTERED MENTAL STATUS | CONFUSION Source of Information: Caregiver (daughter) Exam Limitations: Physical Impairments (patient is confused/childlike behavior/ almost delirious) History of Present Illness Date Seen by Provider: May 27, 2022 Time Seen by Provider: 09:38 Initial Comments Patient is an 82-year-old female with a history of dementia who lives at home with her daughter, 24-hour caregivers. Had a fall in April broke her right foot, ORIF per Dr. DAVID currently in a boot. Was in rehab for several weeks and [facility]. Now home. Had a catheter for quite a while. Finished Levaquin for urinary tract infection today. Daughter has noted increasing bizarre behavior, almost delirium over the last several days. Patient had a Zoom call with her mental health provider about a week ago and her Seroquel dosing schedule changed. Same milligrams however spaced over the course of 3 doses during the day instead of twice a day within the last week. No falls, head injury. No fevers or chills. Normal oral intake. Standing up to do transfers but not walking currently. No vomiting or diarrhea. No cough or other illness reported. Childlike in behavior and speech. Daughter states that it is most unlike her. They got scared this morning due to her behavior change and brought her to the emergency department for evaluation. Timing/Duration: 4-5 Days (worsening) Severity: Moderate Allergies and Home Medications Allergies Coded Allergies: Penicillins (Verified Allergy, Mild, 04/15/22) ketorolac (Verified Allergy, Mild, 04/15/22) morphine (Verified Allergy, Mild, pt has received Lortab in the past, 04/16/22) tetracycline (Verified Allergy, Mild, 04/15/22) paroxetine (Verified Allergy, Unknown, 04/15/22) Patient Home Medication List Home Medication List Reviewed: Yes Acetaminophen (Tylenol Extra Strength) 500 Mg Tablet, 1,000 MG PO TID, (Reported) Entered as Reported by: MARIELLA PALMA on 10/03/16 0553 Albuterol Sulfate (Albuterol Sulfate) 1.25 Mg/3 Ml Vial.neb, 3 ML NEB Q8H PRN for SHORTNESS OF BREATH, (Reported) Entered as Reported by: TERESA NAGEL on 04/15/22 1641 Amlodipine Besylate (Amlodipine Besylate) 10 Mg Tablet, 10 MG PO DAILY Prescribed by: TRACEE FLETCHER on 04/23/22 1046 Benzonatate (Benzonatate) 200 Mg Capsule, 200 MG PO TID PRN for COUGH, (Reported) Entered as Reported by: TERESA NAGEL on 04/15/22 164 Calcium Carbonate/Vitamin D3 (Calcium 600 + Vit D 200 Tablet) 1 Each Tablet, 1 TAB PO BID, (Reported) Entered as Reported by: BEAU MELGAR on 07/13/17 1603 Carvedilol (Carvedilol) 6.25 Mg Tablet, 6.25 MG PO BID Prescribed by: TRACEE FLETCHER on 04/23/22 1046 Ergocalciferol (Vitamin D2) (Vitamin D2) 1,250 Mcg (72025 Unit) Capsule, 1,250 MCG PO MON, (Reported) Entered as Reported by: TERESA NAGEL on 04/15/22 164 Fexofenadine/Pseudoephedrine (Fexofenadine-Pse ER 180-240 Tb) 1 Each Tab.er.24h, 1 EACH PO DAILY, (Reported) Entered as Reported by: DENNY HANLEY on 07/06/21 0502 Fluticasone Propionate (Fluticasone Propionate) 50 Mcg/Actuation [place].susp, 1 SPRAY NS BID PRN for CONGESTION, (Reported) Entered as Reported by: BEAU MELGAR on 07/13/17 1603 Fluticasone/Vilanterol (Breo Ellipta 200-25 Mcg INH) 200 Mcg-25 Mcg/Dose Blst.w.dev, 1 PUFF INH DAILY, (Reported) Entered as Reported by: TERESA NAGEL on 04/15/22 164 Furosemide (Furosemide) 20 Mg Tablet, 20 MG PO DAILY PRN for SWELLING, (Reported) Entered as Reported by: TERESA NAGEL on 04/15/22 1641 Hydrocodone Bit/Acetaminophen (HYDROcodone/APAP 7.5/325 TAB) 1 Ea Tablet, 1 EA PO Q4H PRN for PAIN-MODERATE (5-7) Prescribed by: TRACEE FLETCHER on 04/23/22 1047 Hydrocodone/Acetaminophen (Hydrocodone-Acetamin 7.5-325) 7.5 Mg-325 Mg Tablet, 1 EACH PO Q4H PRN for prn pain Prescribed by: LES HUGHES on 04/16/22 1133 Loperamide HCl (Loperamide) 2 Mg Capsule, 2-4 MG PO UD PRN for DIARRHEA, (Reported) Entered as Reported by: TERESA NAGEL on 04/15/221640 Lorazepam (Ativan) 0.5 Mg Tablet, 0.5 MG PO BID, (Reported) Entered as Reported by: TERESA NAGEL on 04/15/221640 Melatonin (Melatonin) 5 Mg Tablet, 5 MG PO HS, (Reported) Entered as Reported by: TERESA NAGEL on 04/15/221640 Mirtazapine (Mirtazapine) 15 Mg Tablet, 15 MG PO HS, (Reported) Entered as Reported by: DENNY HANLEY on 07/06/21 050 Montelukast Sodium (Montelukast Sodium) 10 Mg Tablet, 10 MG PO DAILY, (Reported) Entered as Reported by: MARIELLA PALMA on 10/03/16 0753 Mupirocin (Mupirocin) 2 % Oint...g., 1 APPLIC TOP TID, (Reported) Entered as Reported by: TERESA NAGEL on 04/15/221640 Oxybutynin Chloride (Oxybutynin Chloride ER) 10 Mg Tab.er.24, 10 MG PO DAILY, (Reported) Entered as Reported by: TERESA NAGEL on 07/18/19 1004 Pantoprazole Sodium (Pantoprazole Sodium) 40 Mg Tablet.dr, 40 MG PO DAILY, (Reported) Entered as Reported by: DENNY HANLEY on 07/06/21 050 Potassium Chloride (K-Tab ER) 10 Meq Tablet.er, 10 MEQ PO DAILY, (Reported) Entered as Reported by: TERESA NAGEL on 04/15/221640 Pravastatin Sodium (Pravastatin Sodium) 40 Mg Tablet, 40 MG PO HS, (Reported) Entered as Reported by: TERESA NAGEL on 04/15/221640 Propylene Glycol/Peg 400 (Systane 0.3-0.4% Eye Drops) 0.3 %-0.4 % Drops, 1-2 DROP OU UD PRN for DRY EYES, (Reported) Entered as Reported by: TERESA NAGEL on 11/8/22 1641 Quetiapine Fumarate (Quetiapine Fumarate) 100 Mg Tablet, 100 MG PO DAILY, (Reported) Entered as Reported by: TERESA NAGEL on 05/01/20 1336 Quetiapine Fumarate (Quetiapine Fumarate) 100 Mg Tablet, 50 MG PO HS, (Reported) Entered as Reported by: TERESA NAGEL on 05/01/20 1336 Rivastigmine Tartrate (Rivastigmine) 1.5 Mg Capsule, 1.5 MG PO BID, (Reported) Entered as Reported by: KAYLEN JAMIL on 09/02/18 1106 Sodium Chloride (Sodium Chloride) 1 Gram Tab, 1 GM PO BID Prescribed by: TRACEE FLETCHER on 04/23/22 1046 Review of Systems Review of Systems Constitutional: see HPI HPI/ROS unobtainable from patient due to clinical condition Past Jfoxied-Lvqier-Urfrna Hx Immunizations Up To Date Tetanus Booster (TDap): Unknown PED Vaccines UTD: Yes First/Initial COVID19 Vaccinat: stated 'information is on file already" Second COVID19 Vaccination Timmy: stated 'information is on file already" Third COVID19 Vaccination Date: stated 'information is on file already" Seasonal Allergies Seasonal Allergies: No Past Medical History Surgery/Hospitalization HX: stated "information is on file already" Surgeries: Yes Abdominal, Appendectomy, Eye Surgery, Gallbladder, 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, Joint Replacement, Orthopedic, Pacemaker Respiratory: Yes COPD Currently Using CPAP: No Currently Using BIPAP: No Cardiac: Yes (Congestive heart failure with EF of 35 percent) Atrial Fibrillation, High Cholesterol, Hypertension Neurological: Yes Dementia 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 Disorders: Yes Female 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 Disorders: Denies, Endometriosis 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, Menopausal Sexually Transmitted Disease: No HIV/AIDS: No Genitourinary: No Gastrointestinal: Yes (BLEEDING ULCER X 3; PERFORATED ULCER 2006; 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) Gastrointestinal Bleed, Chronic Diarrhea, Polyps, Ulcer, Irritable Bowel Musculoskeletal: Yes Degenerate Disk Disease, Arthritis, Chronic Back Pain, Fractures Endocrine: No HEENT: No Cataract Loss of Vision: Denies Hearing Impairment: Hard of Hearing Cancer: No Psychosocial: Yes Anxiety Integumentary: No Blood Disorders: Yes (BILATERAL P.E.'S 04/2018) Adverse Reaction/Blood Tranf: No Family Medical History Blood clots (sister had a blood clot in the brain which caused her  in 2010) Physical Exam Vital Signs Vital Signs - First Documented 05/27/22 09:31 Temp 36.9 Pulse 62 Resp 20 B/P (MAP) 151/88 (109) Pulse Ox 97 O2 Delivery Room Air Capillary Refill : Height, Weight, BMI Height: 5'3.00" Weight: 150lbs. 0.0oz. 68.955306xd; 37.33 BMI Method:Stated General Appearance: No Apparent Distress, WD/WN Eyes: Bilateral Eye Normal Inspection, Bilateral Eye PERRL, Bilateral Eye EOMI HEENT: Normal ENT Inspection, Other (slightly dry oral mucosa) Neck: Full Range of Motion, Normal Inspection Respiratory: Lungs Clear, Normal Breath Sounds, No Accessory Muscle Use, No Respiratory Distress Cardiovascular: Regular Rate, Rhythm, Normal Peripheral Pulses Gastrointestinal: Normal Bowel Sounds, Non Tender, Soft Extremity: Normal Capillary Refill, Normal Inspection, Normal Range of Motion, Non Tender, No Calf Tenderness Neurologic/Psychiatric: Alert, No Motor/Sensory Deficits Skin: Normal Color, Warm/Dry, Other (well healed surgical wounds over the right ankle. minimal swelling. no erythema or open wounds.) Procedures/Interventions Patient Education: Explained Benefits, Explained Risks, Pt. Ack. Understanding Breath Sounds per Auscultation: Clear Heart Sounds per Auscultation: Regular Airway Exam: Mouth opens >2 fingers Sedation Adminstration Time: 0845 Re-examination Time: 0900 Progress/Results/Core Measures Suspected Sepsis SIRS Temperature: Pulse: Respiratory Rate: Laboratory Tests 05/27/22 11:10: White Blood Count 12.4H Blood Pressure / Mean: Laboratory Tests 05/27/22 11:10: Creatinine 0.81, Platelet Count 486H, Total Bilirubin 0.5 Results/Orders Lab Results Laboratory Tests Test 05/27/22 10:05 05/27/22 11:10 Range/Units Urine Color YELLOW Urine Clarity CLEAR Urine pH 6.0 5-9 Urine Specific [place] <=1.005 1.016-1.022 Urine Protein NEGATIVE NEGATIVE Urine Glucose (UA) NEGATIVE NEGATIVE Urine Ketones NEGATIVE NEGATIVE Urine Nitrite NEGATIVE NEGATIVE Urine Bilirubin NEGATIVE NEGATIVE Urine Urobilinogen 0.2 < = 1.0 MG/DL Urine Leukocyte Esterase NEGATIVE NEGATIVE Urine RBC (Auto) NEGATIVE NEGATIVE Urine RBC NONE /HPF Urine WBC NONE /HPF Urine Squamous Epithelial Cells 0-2 /HPF Urine Crystals NONE /LPF Urine Bacteria NEGATIVE /HPF Urine Casts NONE /LPF Urine Mucus NEGATIVE /LPF Urine Culture Indicated NO White Blood Count 12.4 H 4.3-11.0 10^3/uL Red Blood Count 4.94 3.80-5.11 10^6/uL Hemoglobin 13.1 11.5-16.0 g/dL Hematocrit 41 35-52 % Mean Corpuscular Volume 83 80-99 fL Mean Corpuscular Hemoglobin 27 25-34 pg Mean Corpuscular Hemoglobin Concent 32 32-36 g/dL Red Cell Distribution Width 14.2 10.0-14.5 % Platelet Count 486 H 130-400 10^3/uL Mean Platelet Volume 8.7 L 9.0-12.2 fL Immature Granulocyte % (Auto) 1 % Neutrophils (%) (Auto) 72 42-75 % Lymphocytes (%) (Auto) 17 12-44 % Monocytes (%) (Auto) 6 0-12 % Eosinophils (%) (Auto) 4 0-10 % Basophils (%) (Auto) 1 0-10 % Neutrophils # (Auto) 8.9 H 1.8-7.8 10^3/uL Lymphocytes # (Auto) 2.1 1.0-4.0 10^3/uL Monocytes # (Auto) 0.7 0.0-1.0 10^3/uL Eosinophils # (Auto) 0.5 H 0.0-0.3 10^3/uL Basophils # (Auto) 0.1 0.0-0.1 10^3/uL Immature Granulocyte # (Auto) 0.1 0.0-0.1 10^3/uL Sodium Level 130 L 135-145 MMOL/L Potassium Level 4.0 3.6-5.0 MMOL/L Chloride Level 94 L 98-107 MMOL/L Carbon Dioxide Level 27 21-32 MMOL/L Anion Gap 9 5-14 MMOL/L Blood Urea Nitrogen 8 7-18 MG/DL Creatinine 0.81 0.60-1.30 MG/DL Estimat Glomerular Filtration Rate 73 BUN/Creatinine Ratio 10 Glucose Level 122 H 70-105 MG/DL Calcium Level 10.7 H 8.5-10.1 MG/DL Corrected Calcium 10.4 H 8.5-10.1 MG/DL Total Bilirubin 0.5 0.1-1.0 MG/DL Aspartate Amino Transf (AST/SGOT) 19 5-34 U/L Alanine Aminotransferase (ALT/SGPT) 14 0-55 U/L Alkaline Phosphatase 66 40-136 U/L Total Protein 8.1 6.4-8.2 GM/DL Albumin 4.4 3.2-4.5 GM/DL Salicylates Level < 5.0 L 5.0-20.0 MG/DL Acetaminophen Level < 10 L 10-30 UG/ML Serum Alcohol < 10 <10 MG/DL My Orders Orders - NICOLE ZALDIVAR MD Ua Culture If Indicated (05/27/22 09:56) Cbc With Automated Diff (05/27/22 10:48) Comprehensive Metabolic Panel (05/27/22 10:48) Alcohol (05/27/22 11:54) Salicylate (05/27/22 11:54) Acetaminophen (05/27/22 11:54) Vital Signs/I&O 05/27/22 09:31 Temp 36.9 Pulse 62 Resp 20 B/P (MAP) 151/88 (109) Pulse Ox 97 O2 Delivery Room Air Capillary Refill : Progress Note #1: Time: 11:30 Progress Note discussed with nurse for provider Stacey Correia NP. at [facility]. Discussed meds in her chart; recent change in seroquel to 3 times a day (50mg). Scheduled follow up on Jun 26. I am going to have daughter go back to the previous dosing of her seroquel for a week and see if it changes her behavior. Labs reviewed and WNL. VSS. no focal neuro deficits. No clinical indications for imaging of any kind (CT head or CXR). Nurse of Stacey said she will touch base with the daughter in a couple of days. I did offer screening for behavioral health. Daughter in interested. will make a phone call to [facility]. Progress Note #2: Time: 12:36 Progress Note I spoke with Saumya, the screener at [facility]. They are in the process of discharging patients as they do not have nursing staff this holiday weekend. They currently have no bed availability. I spoke with the patient's daughter, she is quite frustrated and concerned about a medical reason for her mother's deterioration in behavior. I reviewed her labs, CBC, chemistry, urinalysis again with her. No clinical or objective reasonings for medical admission at this time. I offered to search for further behavioral health beds, she declined at this time. We will give her a little Ativan to help calm her down here as she is on it at home. Vital signs are stable. All questions are sought and answered. Departure Impression Primary Impression: Altered behavior Additional Impression: History of dementia Disposition: HOME, SELF-CARE Condition: Stable Departure-Patient Inst. Decision time for Depature: 12:40 Referrals: BRAD HDEZ MD (PCP/Family) Primary Care Physician Patient Instructions: Delirium (Confusion) (DC) Add. Discharge Instructions: You may consider going back to the original dosing of the seroquel prior to May.15. Please call for a follow up with her primary care doctor. [facility] will consider her for admission on Thursday06/02/22. Phone number [phone] Return to the Emergency Department for any new, concerning or emergent compla ints. Copy Copies To 1: BRAD HDEZ MD, KATHRYN M MD May 27, 2022 09:56
[2022-05-27 10:10] LABS: BILIRUBIN,URINE NEGATIVE (NEGATIVE); CLARITY,URINE CLEAR; COLOR,URINE YELLOW; GLUCOSE, URINE (UA) NEGATIVE (NEGATIVE); KETONES,URINE NEGATIVE (NEGATIVE); LEUKOCYTE ESTERASE ,URINE NEGATIVE (NEGATIVE); NITRITE,URINE NEGATIVE (NEGATIVE); PROTEIN,URINE NEGATIVE (NEGATIVE)
[2022-05-27 10:17] LABS: BACTERIA,URINE NEGATIVE /HPF; SQUAMOUS EPITHELIAL CELL,UR 0-2 /HPF
[2022-05-27 11:17] LABS: BASOPHILS # (AUTO) 0.1 10^3/uL (0.0-0.1); BASOPHILS % (AUTO) 1 % (0-10); EOSINOPHILS # (AUTO) 0.5 10^3/uL (0.0-0.3); EOSINOPHILS % (AUTO) 4 % (0-10); HEMATOCRIT 41 % (35-52); HEMOGLOBIN 13.1 g/dL (11.5-16.0); LYMPHOCYTES # (AUTO) 2.1 10^3/uL (1.0-4.0); LYMPHOCYTES % (AUTO) 17 % (12-44); MEAN CORPUSCULAR HEMOGLOBIN 27 pg (25-34); MEAN CORPUSCULAR HGB CONC 32 g/dL (32-36); MEAN CORPUSCULAR VOLUME 83 fL (80-99); MEAN PLATELET VOLUME 8.7 fL (9.0-12.2); MONOCYTES # (AUTO) 0.7 10^3/uL (0.0-1.0); MONOCYTES % (AUTO) 6 % (0-12); NEUTROPHILS # (AUTO) 8.9 10^3/uL (1.8-7.8); NEUTROPHILS % (AUTO) 72 % (42-75); PLATELET COUNT 486 10^3/uL (130-400); WHITE BLOOD COUNT 12.4 10^3/uL (4.3-11.0)
[2022-05-27 11:27] LABS: ALBUMIN 4.4 GM/DL (3.2-4.5)
[2022-05-27 11:29] LABS: CALCIUM 10.7 MG/DL (8.5-10.1)
[2022-05-27 11:30] LABS: TOTAL PROTEIN 8.1 GM/DL (6.4-8.2)
[2022-05-27 11:32] LABS: BILIRUBIN,TOTAL 0.5 MG/DL (0.1-1.0)
[2022-05-27 11:34] LABS: CREATININE SERUM 0.81 MG/DL (0.60-1.30)
[2022-05-27 12:20] LABS: SALICYLATE < 5.0 MG/DL (5.0-20.0)
[2022-05-27 12:31] LABS: ACETAMINOPHEN < 10 UG/ML (10-30)
[2022-05-27] MEDS ORDERED: LORazepam 0.5 MG (ATIVAN) TABLET PO ONE (12:45)
[2022-05-27 12:53] VITALS: BP 148/99
== END 2022-05-27 12:53 | disposition home or self-care (01) ==
LOC: EDUNIT# 09:28 → ER 09:29
DX: R41.82 Altered mental status, unspecified (principal); Z86.59 Personal history of other mental and behavioral disorders
CPT/HCPCS: 36415; 80053; 80320; 80329; 81000; 85025

== ENCOUNTER 2022-11-23 13:51 | Emergency (ER) | payer MEDICARE, MEDICAID ==
[~2022-11-23] VITALS: Ht 160 cm; Wt 97.0 kg
[~2022-11-23 13:51] MED LIST changes: -FLUT16SP22 NS; +FLUT16SP22 NSEACH; -LIDO76.5 TP; +LIDO76.56 TP; -MOME13HF4 IH; +MOME13HF9 IH; +POTA-330 PO; -POTA-51 PO
--- NOTE | 2022-11-23 14:06 | ED Respiratory ---
General Chief Complaint: Respiratory Problems Stated Complaint: SOA Source: patient Exam Limitations: no limitations History of Present Illness Date Seen by Provider: Nov 23, 2022 Time Seen by Provider: 13:57 Initial Comments Patient is an 82-year-old female who lives at home with her daughter presents to the emergency room by ambulance with a chief complaint of feeling short of breath. Patient states she occasionally has episodes like this. She denies any associated chest pain, no abdominal pain, no nausea. She has not had any diarrhea or black or bloody stools. No problems with urination. She does occasionally use breathing treatments and had one this morning. She denies fevers or chills. She has had slight rhinorrhea. No sore throat. No cough. She does not use oxygen at home. Daughter reports that the patient has not been acting quite like herself for the last 2 or 3 days. She has had decreased appetite. She states that she checked her oxygen this afternoon and it was in the upper 80s. She became concerned and wanted her evaluated in the emergency department. No recent travel. No history of blood clot. On arrival the patient is alert and oriented to self. Her room air oxygen saturations are 93/94%. Patient tells me that she has a history of "airway issues". She does not smoke. Timing/Duration: this morning Severity: moderate Prior Episodes/Possible Cause: occasional episodes Modifying Factors: Improves With Albuterol Nebulizer Associated Symptoms: shortness of breath Allergies and Home Medications Allergies Coded Allergies: Penicillins (Verified Allergy, Mild, 04/15/22) ketorolac (Verified Allergy, Mild, 04/15/22) morphine (Verified Allergy, Mild, pt has received Lortab in the past, 04/16/22) tetracycline (Verified Allergy, Mild, 04/15/22) paroxetine (Verified Allergy, Unknown, 04/15/22) Patient Home Medication List Home Medication List Reviewed: Yes Acetaminophen (Tylenol Extra Strength) 500 Mg Tablet, 1,000 MG PO TID, (Reported) Entered as Reported by: MARIELLA PALMA on 10/03/16 0753 Albuterol Sulfate (Albuterol Sulfate) 1.25 Mg/3 Ml Vial.neb, 3 ML NEB Q8H PRN for SHORTNESS OF BREATH, (Reported) Entered as Reported by: TERESA NAGEL on 04/15/22 1641 Amlodipine Besylate (Amlodipine Besylate) 10 Mg Tablet, 10 MG PO DAILY Prescribed by: TRACEE FLETCHER on 04/23/22 1046 Azithromycin (Azithromycin) 250 Mg Tablet, 250 MG PO DAILY Prescribed by: NICOLE ZALDIVAR on 11/23/22 1514 Benzonatate (Benzonatate) 200 Mg Capsule, 200 MG PO TID PRN for COUGH, (Reported) Entered as Reported by: TERESA NAGEL on 04/15/22 1641 Calcium Carbonate/Vitamin D3 (Calcium 600 + Vit D 200 Tablet) 1 Each Tablet, 1 TAB PO BID, (Reported) Entered as Reported by: BEAU MELGAR on 07/13/17 1603 Carvedilol (Carvedilol) 6.25 Mg Tablet, 6.25 MG PO BID Prescribed by: TRACEE FLETCHER on 04/23/22 104 Cefdinir (Cefdinir) 300 Mg Capsule, 300 MG PO BID Prescribed by: NICOLE ZALDIVAR on 11/23/22 1514 Ergocalciferol (Vitamin D2) (Vitamin D2) 1,250 Mcg (70943 Unit) Capsule, 1,250 MCG PO MON, (Reported) Entered as Reported by: TERESA NAGEL on 04/15/22 164 Fexofenadine/Pseudoephedrine (Fexofenadine-Pse ER 180-240 Tb) 1 Each Tab.er.24h, 1 EACH PO DAILY, (Reported) Entered as Reported by: DENNY HANLEY on 07/06/21 0502 Fluticasone Propionate (Fluticasone Propionate) 50 Mcg/Actuation [place].susp, 1 SPRAY NS BID PRN for CONGESTION, (Reported) Entered as Reported by: BEAU MELGAR on 07/13/17 1603 Fluticasone/Vilanterol (Breo Ellipta 200-25 Mcg INH) 200 Mcg-25 Mcg/Dose Blst.w.dev, 1 PUFF INH DAILY, (Reported) Entered as Reported by: TERESA NAGEL on 04/15/22 1641 Furosemide (Furosemide) 20 Mg Tablet, 20 MG PO DAILY PRN for SWELLING, (Reported) Entered as Reported by: TERESA NAGEL on 04/15/22 1641 Hydrocodone Bit/Acetaminophen (HYDROcodone/APAP 7.5/325 TAB) 1 Ea Tablet, 1 EA PO Q4H PRN for PAIN-MODERATE (5-7) Prescribed by: TRACEE FLETCHER on 04/23/22 1047 Hydrocodone/Acetaminophen (Hydrocodone-Acetamin 7.5-325) 7.5 Mg-325 Mg Tablet, 1 EACH PO Q4H PRN for prn pain Prescribed by: LES HUGHES on 04/16/22 1133 Loperamide HCl (Loperamide) 2 Mg Capsule, 2-4 MG PO UD PRN for DIARRHEA, (Reported) Entered as Reported by: TERESA NAGEL on 04/15/221640 Lorazepam (Ativan) 0.5 Mg Tablet, 0.5 MG PO BID, (Reported) Entered as Reported by: TERESA NAGEL on 04/15/221640 Melatonin (Melatonin) 5 Mg Tablet, 5 MG PO HS, (Reported) Entered as Reported by: TERESA NAGEL on 04/15/221640 Mirtazapine (Mirtazapine) 15 Mg Tablet, 15 MG PO HS, (Reported) Entered as Reported by: DENNY HANLEY on 07/06/21 050 Montelukast Sodium (Montelukast Sodium) 10 Mg Tablet, 10 MG PO DAILY, (Reported) Entered as Reported by: MARIELLA PALMA on 10/03/16 0753 Mupirocin (Mupirocin) 2 % Oint...g., 1 APPLIC TOP TID, (Reported) Entered as Reported by: TERESA NGAEL on 04/15/221640 Oxybutynin Chloride (Oxybutynin Chloride ER) 10 Mg Tab.er.24, 10 MG PO DAILY, (Reported) Entered as Reported by: TERESA NAGEL on 07/18/19 1004 Pantoprazole Sodium (Pantoprazole Sodium) 40 Mg Tablet.dr, 40 MG PO DAILY, (Reported) Entered as Reported by: DENNY HANLEY on 07/06/21 050 Potassium Chloride (K-Tab ER) 10 Meq Tablet.er, 10 MEQ PO DAILY, (Reported) Entered as Reported by: TERESA NAGEL on 04/15/22 164 Pravastatin Sodium (Pravastatin Sodium) 40 Mg Tablet, 40 MG PO HS, (Reported) Entered as Reported by: TERESA NAGEL on 11/8/22 1641 Propylene Glycol/Peg 400 (Systane 0.3-0.4% Eye Drops) 0.3 %-0.4 % Drops, 1-2 DROP OU UD PRN for DRY EYES, (Reported) Entered as Reported by: TERESA NAGEL on 04/15/22 1641 Quetiapine Fumarate (Quetiapine Fumarate) 100 Mg Tablet, 100 MG PO DAILY, (Reported) Entered as Reported by: TERESA NAGEL on 05/01/20 1336 Quetiapine Fumarate (Quetiapine Fumarate) 100 Mg Tablet, 50 MG PO HS, (Reported) Entered as Reported by: TERESA NAGEL on 05/01/20 1336 Rivastigmine Tartrate (Rivastigmine) 1.5 Mg Capsule, 1.5 MG PO BID, (Reported) Entered as Reported by: KAYLEN JAMIL on 09/02/18 1106 Sodium Chloride (Sodium Chloride) 1 Gram Tab, 1 GM PO BID Prescribed by: TRACEE FLETCHER on 04/23/22 1046 Review of Systems Review of Systems Constitutional: see HPI EENTM: no symptoms reported Respiratory: short of breath Cardiovascular: no symptoms reported Gastrointestinal: no symptoms reported Genitourinary: no symptoms reported Musculoskeletal: no symptoms reported Skin: no symptoms reported All Other Systems Reviewed Negative Unless Noted: Yes Past Hbfuzju-Hhmuwd-Clooss Hx Patient Social History Tobacco Use?: No Smoking Status: Never a Smoker Substance use?: No Alcohol Use?: No Pt feels they are or have been: No Immunizations Up To Date Tetanus Booster (TDap): Unknown PED Vaccines UTD: Yes First/Initial COVID19 Vaccinat: stated 'information is on file already" Second COVID19 Vaccination Timmy: stated 'information is on file already" Third COVID19 Vaccination Date: stated 'information is on file already" Seasonal Allergies Seasonal Allergies: No Past Medical History Surgery/Hospitalization HX: FX RT ANKLE, RT SHOULDER, HYST, GALLBLADDER, NASAL SURGERY, EYE SURGERY restrictive airway Surgeries: Yes Abdominal, Appendectomy, Eye Surgery, Gallbladder, 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, Joint Replacement, Orthopedic, Pacemaker Respiratory: Yes COPD Currently Using CPAP: No Currently Using BIPAP: No Cardiac: Yes (Congestive heart failure with EF of 35 percent) Atrial Fibrillation, High Cholesterol, Hypertension Neurological: Yes Dementia 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 Disorders: Yes Female 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 Disorders: Denies, Endometriosis 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 ENTRY History: 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, Menopausal Sexually Transmitted Disease: No HIV/AIDS: No Genitourinary: No Gastrointestinal: Yes (BLEEDING ULCER X 3; PERFORATED ULCER 2006; 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) Gastrointestinal Bleed, Chronic Diarrhea, Polyps, Ulcer, Irritable Bowel Musculoskeletal: Yes Degenerate Disk Disease, Arthritis, Chronic Back Pain, Fractures Endocrine: No HEENT: No Cataract Loss of Vision: Denies Hearing Impairment: Hard of Hearing Cancer: No Psychosocial: Yes Anxiety Integumentary: No Blood Disorders: Yes (BILATERAL P.E.'S 04/2018) Adverse Reaction/Blood Tranf: No Family Medical History Blood clots (sister had a blood clot in the brain which caused her  in 2010) Physical Exam Vital Signs - First Documented 11/23/22 11/23/22 13:56 15:19 Temp 37.3 Pulse 61 Resp 18 B/P (MAP) 182/73 (109) Pulse Ox 93 O2 Delivery Nasal Cannula O2 Flow Rate 0 Capillary Refill : Height: 5'3.00" Weight: 150lbs. 0.0oz. 68.700203oh; 38.00 BMI Method:Stated General Appearance: WD/WN, no apparent distress, obese Eyes: Bilateral Eye Normal Inspection, Bilateral Eye PERRL, Bilateral Eye EOMI HEENT: PERRL/EOMI Respiratory: lungs clear, normal breath sounds, no respiratory distress, no accessory muscle use, decreased breath sounds (left base), other (slightly tachypneic; no wheezes or ronchi) Cardiovascular: regular rate, rhythm (60's) Gastrointestinal: normal bowel sounds, non tender, soft Extremities: normal range of motion, normal inspection Neurologic/Psychiatric: alert, normal mood/affect Skin: normal color, warm/dry, pallor (slightly pale) Procedures/Interventions Patient Education: Explained Benefits, Explained Risks, Pt. Ack. Understanding Breath Sounds per Auscultation: Clear Heart Sounds per Auscultation: Regular Airway Exam: Mouth opens >2 fingers Sedation Adminstration Time: 0845 Re-examination Time: 0900 Progress/Results/Core Measures Suspected Sepsis SIRS Temperature: Pulse: Respiratory Rate: Laboratory Tests 11/23/22 13:59: White Blood Count 19.2H Blood Pressure / Mean: Laboratory Tests 11/23/22 13:59: Creatinine 0.84, Platelet Count 587H Results/Orders Lab Results Laboratory Tests Test 11/23/22 13:59 Range/Units White Blood Count 19.2 H 4.3-11.0 10^3/uL Red Blood Count 4.09 3.80-5.11 10^6/uL Hemoglobin 9.0 L 11.5-16.0 g/dL Hematocrit 29 L 35-52 % Mean Corpuscular Volume 71 L 80-99 fL Mean Corpuscular Hemoglobin 22 L 25-34 pg Mean Corpuscular Hemoglobin Concent 31 L 32-36 g/dL Red Cell Distribution Width 16.7 H 10.0-14.5 % Platelet Count 587 H 130-400 10^3/uL Mean Platelet Volume 9.0 9.0-12.2 fL Immature Granulocyte % (Auto) 1 % Neutrophils (%) (Auto) 79 H 42-75 % Lymphocytes (%) (Auto) 10 L 12-44 % Monocytes (%) (Auto) 7 0-12 % Eosinophils (%) (Auto) 3 0-10 % Basophils (%) (Auto) 1 0-10 % Neutrophils # (Auto) 15.1 H 1.8-7.8 10^3/uL Lymphocytes # (Auto) 2.0 1.0-4.0 10^3/uL Monocytes # (Auto) 1.3 H 0.0-1.0 10^3/uL Eosinophils # (Auto) 0.6 H 0.0-0.3 10^3/uL Basophils # (Auto) 0.1 0.0-0.1 10^3/uL Immature Granulocyte # (Auto) 0.2 H 0.0-0.1 10^3/uL Neutrophils % (Manual) 80 % Lymphocytes % (Manual) 11 % Monocytes % (Manual) 7 % Eosinophils % (Manual) 1 % Basophils % (Manual) 0 % Band Neutrophils 1 % Poikilocytosis SLIGHT Anisocytosis SLIGHT Sodium Level 129 L 135-145 MMOL/L Potassium Level 4.2 3.6-5.0 MMOL/L Chloride Level 95 L 98-107 MMOL/L Carbon Dioxide Level 22 21-32 MMOL/L Anion Gap 12 5-14 MMOL/L Blood Urea Nitrogen 9 7-18 MG/DL Creatinine 0.84 0.60-1.30 MG/DL Estimat Glomerular Filtration Rate 70 BUN/Creatinine Ratio 11 Glucose Level 163 H 70-105 MG/DL Calcium Level 9.7 8.5-10.1 MG/DL My Orders Orders - NICOLE ZALDIVAR MD Ed Iv/Invasive Line Start (11/23/22 14:06) Cbc With Automated Diff (11/23/22 14:06) Basic Metabolic Panel (11/23/22 14:06) Chest 1 View, Ap/Pa Only (11/23/22 14:06) Manual Differential (11/23/22 13:59) Albuterol Pre-Mix Nebs (Rt) (Proventil (11/23/22 15:15) Svn Small Volume Nebulizer (11/23/22 15:04) Ceftriaxone Iv/Im (Rocephin Iv/Im) (11/23/22 15:15) Azithromycin Injection (Zithromax Inject (11/23/22 15:15) Medications Given in ED Current Medications Medications Dose Ordered Sig/Lee Route Start Time Stop Time Status Last Admin Dose Admin Albuterol Sulfate 2.5 mg ONCE ONCE INH 11/23/22 15:15 11/23/22 15:16 DC 11/23/22 15:17 2.5 MG Azithromycin 500 mg/Sodium Chloride 250 ml @ 250 mls/hr ONCE ONCE IV 11/23/22 15:15 11/23/22 16:14 DC 11/23/22 15:28 250 MLS/HR Ceftriaxone Sodium 1000 mg/ Sodium Chloride 50 ml @ 100 mls/hr ONCE ONCE IV 11/23/22 15:15 11/23/22 15:44 DC 11/23/22 15:13 100 MLS/HR Vital Signs/I&O 11/23/22 11/23/22 13:56 15:19 Temp 37.3 Pulse 61 Resp 18 B/P (MAP) 182/73 (109) Pulse Ox 93 93 O2 Delivery Nasal Cannula O2 Flow Rate 0 Capillary Refill : Progress Note : Time: 15:08 Progress Note Patient seen and evaluated by me. Evaluation today includes physical exam, CBC, basic metabolic panel, single view chest x-ray. Pertinent physical exam findings well-developed well-nourished mildly obese female slightly tachypneic. Diminished breath sounds at the bases left greater than right. No wheezes or rhonchi. Speaks in complete sentences. Room air saturations 93 to 94%. No calf tenderness. 1-2+ edema in the bilateral lower extremities. Abdominal exam is benign. Brisk capillary refill. No focal neurologic deficits. Differential diagnosis based on history and physical exam, bronchitis, pneumonia, reactive airway disease, anxiety. Labs and imaging independently reviewed and interpreted by me. Her CBC shows a total white blood cell count of 19.2 with 79% segs. Hemoglobin is 9 hematocrit 29 platelet count of 587. Basic metabolic panel shows a serum sodium of 129 slightly elevated glucose at 163. Chest x-ray shows concern for patchy developing infiltrate in the left lower lobe as read by radiology. Patient is resting comfortably in the emergency department. Treated with an albuterol breathing treatment as well as 1 g of Rocephin and 500 mg of azithromycin. Her daughter states that she only uses her breathing treatments on an as-needed basis. I recommended using these on a scheduled basis over the next 2 or 3 days. We will send her home with a prescription for cefdinir and azithromycin. remains at 94% on RA. Return precautions provided in both verbal and written format. No objective findings to warrant hospitalization at this time. Diagnostic Imaging Diagonstic Imaging: Xray Plain Films/CT/US/NM/MRI: chest Comments [facility], [place] NAME: AILEEN DUMONT [facility] REC#: [id number] PT STATUS: REG ER : 1940 PHYSICIAN: NICOLE ZALDIVAR MD ADMIT DATE: 11/23/22/ER Draft Date of Exam:11/23/22 CHEST 1 VIEW, AP/PA ONLY EXAMINATION: Chest 1 view HISTORY: SOB COMPARISON: 04/15/2022 FINDINGS: Heart size and pulmonary vasculature are normal. There are mild interstitial opacities in the left lung base. No pleural effusion or pneumothorax. Left sided cardiac device is unchanged. Right shoulder arthroplasty. Degenerative changes of the thoracic spine. Osseous structures are otherwise intact. IMPRESSION: 1. Mild left basilar opacities consistent with atelectasis, edema, or pneumonia. Dictated on workstation # [id number] Dict: 11/23/22 1442 Trans: 11/23/22 1443 [facility] [id number] Interpreted by: AMANDA STEELE DO Electronically signed by: Departure Impression Primary Impression: Left lower lobe pneumonia Qualified Codes: J18.9 - Pneumonia, unspecified organism Disposition: HOME, SELF-CARE Condition: Improved Departure-Patient Inst. Decision time for Depature: 15:12 Referrals: BRAD HDEZ MD (PCP/Family) Primary Care Physician Patient Instructions: Pneumonia, Adult (DC) Add. Discharge Instructions: Drink plenty of fluids to stay well hydrated. Take the antibiotics as scheduled for the next 5 and 7 days. Cefdinir 300mg twice a day for 6 days and Azithromycin 250mg once a day for 4 days. (start these tomorrow). Use your albuterol Nebulizer every 6 hours while awake the next 3-5 days. If you have worsening shortness of breath, fever over 101 or any other emergent, concerning symptoms, please return to the Emergency Department for re- evaluation. Please follow up with your primary care doctor this week. Scripts Cefdinir (Cefdinir) 300 Mg Capsule 300 MG PO BID, #12 CAP 0 Refills Prov: NICOLE ZALDIVAR MD 11/23/22 Azithromycin (Azithromycin) 250 Mg Tablet 250 MG PO DAILY, #4 TAB 0 Refills Prov: NICOLE ZALDIVAR MD 11/23/22 Copy Copies To 1: BRAD HDEZ MD, KATHRYN M MD Nov 23, 2022 14:06
[2022-11-23 14:12] LABS: BASOPHILS # (AUTO) 0.1 10^3/uL (0.0-0.1); BASOPHILS % (AUTO) 1 % (0-10); EOSINOPHILS # (AUTO) 0.6 10^3/uL (0.0-0.3); EOSINOPHILS % (AUTO) 3 % (0-10); HEMATOCRIT 29 % (35-52); LYMPHOCYTES % (AUTO) 10 % (12-44); MEAN CORPUSCULAR HEMOGLOBIN 22 pg (25-34); MEAN CORPUSCULAR HGB CONC 31 g/dL (32-36); MEAN CORPUSCULAR VOLUME 71 fL (80-99); MONOCYTES # (AUTO) 1.3 10^3/uL (0.0-1.0); MONOCYTES % (AUTO) 7 % (0-12); NEUTROPHILS # (AUTO) 15.1 10^3/uL (1.8-7.8); NEUTROPHILS % (AUTO) 79 % (42-75); PLATELET COUNT 587 10^3/uL (130-400); WHITE BLOOD COUNT 19.2 10^3/uL (4.3-11.0)
[2022-11-23 14:22] LABS: POTASSIUM 4.2 MMOL/L (3.6-5.0)
[2022-11-23 14:23] LABS: CALCIUM 9.7 MG/DL (8.5-10.1)
[2022-11-23 14:27] LABS: CREATININE SERUM 0.84 MG/DL (0.60-1.30)
--- NOTE | 2022-11-23 14:44 | Diagnostic Imaging Report ---
EXAMINATION: Chest 1 view HISTORY: SOB COMPARISON: 04/15/2022 FINDINGS: Heart size and pulmonary vasculature are normal. There are mild interstitial opacities in the left lung base. No pleural effusion or pneumothorax. Left sided cardiac device is unchanged. Right shoulder arthroplasty. Degenerative changes of the thoracic spine. Osseous structures are otherwise intact. IMPRESSION: 1. Mild left basilar opacities consistent with atelectasis, edema, or pneumonia. Dictated by: Dictated on workstation # [id number]
[2022-11-23 14:48] LABS: ANISOCYTOSIS SLIGHT; BAND NEUTROPHILS 1 %; BASOPHILS % (MANUAL) 0 %; EOSINOPHILS % (MANUAL) 1 %; LYMPHOCYTES % (MANUAL) 11 %; MONOCYTES % (MANUAL) 7 %; NEUTROPHILS % (MANUAL) 80 %; POIKILOCYTOSIS SLIGHT
[2022-11-23] MEDS ORDERED: AZIT250T12 PO ×2 (15:14→16:43)
[2022-11-23] MEDS ORDERED: CEFD300C3 PO ×2 (15:14→16:43)
[2022-11-23] MEDS ORDERED: RT-ALBUTEROL SULF 2.5 MG/3 ML PRE-MIX VIAL INH ONE (15:15)
[2022-11-23] MEDS ORDERED: cefTRIAXone IV/IM 1,000 MG in NS (IVPB) 50 ML IV ONE (15:15)
[2022-11-23] MEDS ORDERED: AZITHROMYCIN INJECTION 500 MG in NS (IVPB) 250 ML IV ONE (15:15)
[2022-11-23 16:52] VITALS: BP 149/69
== END 2022-11-23 16:51 | disposition home or self-care (01) ==
LOC: EDUNIT# 13:51 → ER 13:53
DX: J18.9 Pneumonia, unspecified organism (principal); R60.0 Localized edema; Z88.0 Allergy status to penicillin; Z88.1 Allergy status to other antibiotic agents
CPT/HCPCS: 36415; 71045; 80048; 85007; 85027; 94640

== ENCOUNTER 2022-11-24 22:26 | Observation (INO) | payer MEDICARE, MEDICAID ==
[~2022-11-24] VITALS: Ht 147.3 cm; Wt 95.6 kg
[~2022-11-24 22:26] MED LIST changes: +CEFD300C3 PO
[2022-11-24 22:43] LABS: BASOPHILS # (AUTO) 0.1 10^3/uL (0.0-0.1); BASOPHILS % (AUTO) 1 % (0-10); EOSINOPHILS # (AUTO) 0.8 10^3/uL (0.0-0.3); EOSINOPHILS % (AUTO) 5 % (0-10); HEMATOCRIT 26 % (35-52); HEMOGLOBIN 8.1 g/dL (11.5-16.0); LYMPHOCYTES # (AUTO) 2.8 10^3/uL (1.0-4.0); LYMPHOCYTES % (AUTO) 17 % (12-44); MEAN CORPUSCULAR HEMOGLOBIN 22 pg (25-34); MEAN CORPUSCULAR HGB CONC 31 g/dL (32-36); MEAN CORPUSCULAR VOLUME 70 fL (80-99); MEAN PLATELET VOLUME 8.8 fL (9.0-12.2); MONOCYTES # (AUTO) 1.2 10^3/uL (0.0-1.0); MONOCYTES % (AUTO) 7 % (0-12); NEUTROPHILS % (AUTO) 70 % (42-75); PLATELET COUNT 518 10^3/uL (130-400); WHITE BLOOD COUNT 17.1 10^3/uL (4.3-11.0)
--- NOTE | 2022-11-24 22:43 | ED Respiratory ---
General Chief Complaint: Respiratory Problems Stated Complaint: SOA Nursing Triage Note: PT TO [facility] FROM HOME W C/O HYPOXIA AT HOME, RECENT DX OF PNA, AND DIZZINESS. PT A&O. Source: patient Exam Limitations: no limitations History of Present Illness Date Seen by Provider: Nov 24, 2022 Time Seen by Provider: 22:24 Initial Comments 82-year-old female presents to the emergency department today for shortness of breath. She was seen here yesterday for the same and diagnosed with pneumonia. She has been taking antibiotics. Reportedly her oxygen saturations were in the upper 80s at home. On fire arrival they placed her on 3 L of oxygen via nasal cannula. EMS during transport states her oxygen saturation was 92 to 94%. He does endorse some increasing shortness of breath. No fevers but she has had chills. She has had some nausea without any vomiting. All other systems reviewed and negative except documented per HPI. Voice recognition software was used to help create this chart Allergies and Home Medications Allergies Coded Allergies: Penicillins (Verified Allergy, Mild, 04/15/22) ketorolac (Verified Allergy, Mild, 04/15/22) morphine (Verified Allergy, Mild, pt has received Lortab in the past, 04/16/22) tetracycline (Verified Allergy, Mild, 04/15/22) paroxetine (Verified Allergy, Unknown, 04/15/22) Patient Home Medication List Home Medication List Reviewed: Yes Acetaminophen (Tylenol Extra Strength) 500 Mg Tablet, 1,000 MG PO 1100,1600, (Reported) Entered as Reported by: MARIELLA PALMA on 10/03/16 0753 Last Action: Continued Amlodipine Besylate (Amlodipine Besylate) 5 Mg Tablet, 5 MG PO DAILY, (Reported) Entered as Reported by: TERESA NAGEL on 11/25/22 1403 Last Action: Continued Benzonatate (Benzonatate) 200 Mg Capsule, 200 MG PO Q8H PRN for COUGH, (Reported) Entered as Reported by: TERESA NAGEL on 11/25/221402 Last Action: Converted Calcium Carbonate/Vitamin D3 (Calcium 600 + Vit D 200 Tablet) 1 Each Tablet, 1 TAB PO BID, (Reported) Entered as Reported by: BEAU MELGAR on 07/13/17 1603 Last Action: Converted Carvedilol (Carvedilol) 3.125 Mg Tablet, 3.125 MG PO BID WITH MEALS, (Reported) Entered as Reported by: TERESA NAGEL on 11/25/221402 Last Action: Continued Diphenhydramine HCl (Benadryl) 25 Mg Capsule, 25-50 MG PO DAILY, (Reported) Entered as Reported by: TERESA NAGEL on 11/25/221402 Last Action: Converted Diphenhydramine HCl (Benadryl) 25 Mg Capsule, 25-50 MG PO HS PRN for ALLERGY SYMPTOMS, (Reported) Entered as Reported by: TERESA NAGEL on 11/25/221402 Last Action: Converted Fexofenadine HCl (Fexofenadine HCl) 180 Mg Tablet, 180 MG PO DAILY, (Reported) Entered as Reported by: TERESA NAGEL on 11/25/221402 Last Action: Converted Fluticasone Propionate (Fluticasone Propionate) 50 Mcg/Actuation [place].susp, 1 SPRAY NSEACH BID, (Reported) Entered as Reported by: BEAU MELGAR on 07/13/17 1603 Last Action: Continued Fluticasone/Vilanterol (Breo Ellipta 100-25 Mcg INH) 100 Mcg-25 Mcg/Dose Blst.w.dev, 1 PUFF INH DAILY, (Reported) Entered as Reported by: TERESA NAGEL on 11/25/221402 Last Action: Continued Furosemide (Furosemide) 20 Mg Tablet, 20 MG PO DAILY, (Reported) Entered as Reported by: TERESA NAGEL on 04/15/22 1641 Last Action: Continued Guaifenesin (Mucus Relief) 600 Mg Tab.er.12h, 600 MG PO Q12H PRN for CONGESTION, (Reported) Entered as Reported by: TERESA NAGEL on 11/25/221402 Last Action: Continued Ipratropium/Albuterol Sulfate (Iprat-Albut 0.5-3(2.5) mg/3 ml) 0.5 Mg-3 Mg (2.5 Mg Base)/3 Ml Ampul.neb, 3 ML INH RTQ4HR Prescribed by: KORI CREWS on 11/27/22 112 Levofloxacin (Levofloxacin) 500 Mg Tablet, 500 MG PO DAILY Prescribed by: KORI CREWS on 11/27/22 112 Lorazepam (Ativan) 0.5 Mg Tablet, 0.5 MG PO BID, (Reported) Entered as Reported by: TERESA NAGEL on 04/15/221640 Last Action: Continued Melatonin (Melatonin) 5 Mg Tablet, 5 MG PO HS, (Reported) Entered as Reported by: TERESA NAGEL on 04/15/221640 Last Action: Converted Mirtazapine (Mirtazapine) 15 Mg Tablet, 15 MG PO HS, (Reported) Entered as Reported by: DENNY HANLEY on 07/06/21 050 Last Action: Converted Montelukast Sodium (Montelukast Sodium) 10 Mg Tablet, 10 MG PO HS, (Reported) Entered as Reported by: MARIELLA PALMA on 10/03/16 0753 Last Action: Continued Oxybutynin Chloride (Oxybutynin Chloride ER) 10 Mg Tab.er.24, 10 MG PO DAILY, (Reported) Entered as Reported by: TERESA NAGEL on 07/18/19 1004 Last Action: Converted Pantoprazole Sodium (Pantoprazole Sodium) 40 Mg Tablet.dr, 40 MG PO DAILY, (Reported) Entered as Reported by: DENNY HANLEY on 07/06/21 050 Last Action: Continued Potassium Chloride (K-Tab ER) 10 Meq Tablet.er, 10 MEQ PO DAILY, (Reported) Entered as Reported by: TERESA NAGEL on 04/15/221640 Last Action: Continued Pravastatin Sodium (Pravastatin Sodium) 40 Mg Tablet, 40 MG PO HS, (Reported) Entered as Reported by: TERESA NAGEL on 04/15/221640 Last Action: Converted Quetiapine Fumarate (Quetiapine Fumarate) 100 Mg Tablet, 50 MG PO 0800,1600,2200, (Reported) Entered as Reported by: TERESA NAGEL on 11/25/22 1403 Last Action: Continued Rivastigmine Tartrate (Rivastigmine) 1.5 Mg Capsule, 1.5 MG PO BID, (Reported) Entered as Reported by: KAYLEN JAMIL on 09/02/18 1106 Last Action: Continued Discontinued Medications Albuterol Sulfate (Albuterol Sulfate) 1.25 Mg/3 Ml Vial.neb, 3 ML NEB Q8H PRN for SHORTNESS OF BREATH, (Reported) Discontinued Reason: Duplicate Order Entered as Reported by: TERESA NAGEL on 04/15/221640 Last Action: Discontinued Amlodipine Besylate (Amlodipine Besylate) 10 Mg Tablet, 10 MG PO DAILY Discontinued Reason: Duplicate Order Prescribed by: TRACEE FLETCHER on 04/23/22 104 Last Action: Discontinued Azithromycin (Azithromycin) 250 Mg Tablet, 250 MG PO DAILY Prescribed by: NICOLE ZALDIVAR on 11/23/22 151 Azithromycin (Azithromycin) 250 Mg Tablet, 250 MG PO DAILY Discontinued Reason: Duplicate Order Prescribed by: NICOLE ZALDIVAR on 11/23/221642 Last Action: Discontinued Azithromycin (Azithromycin) 250 Mg Tablet, 250 MG PO DAILY, (Reported) Entered as Reported by: TERESA NAGEL on 11/25/221402 Last Action: Held Benzonatate (Benzonatate) 200 Mg Capsule, 200 MG PO TID PRN for COUGH, (Reported) Discontinued Reason: Duplicate Order Entered as Reported by: TERESA NAGEL on 04/15/221640 Last Action: Discontinued Carvedilol (Carvedilol) 6.25 Mg Tablet, 6.25 MG PO BID Discontinued Reason: Duplicate Order Prescribed by: TRACEE FLETCHER on 04/23/221045 Last Action: Discontinued Cefdinir (Cefdinir) 300 Mg Capsule, 300 MG PO BID Prescribed by: NICOLE ZALDIVAR on 11/23/22 151 Cefdinir (Cefdinir) 300 Mg Capsule, 300 MG PO BID Discontinued Reason: Duplicate Order Prescribed by: NICOLE ZALDIVAR on 11/23/221642 Last Action: Discontinued Cefdinir (Cefdinir) 300 Mg Capsule, 300 MG PO BID, (Reported) Entered as Reported by: TERESA NAGEL on 11/25/221402 Last Action: Held Ergocalciferol (Vitamin D2) (Vitamin D2) 1,250 Mcg (39808 Unit) Capsule, 1,250 MCG PO MON, (Reported) Discontinued Reason: Duplicate Order Entered as Reported by: TERESA NAGEL on 04/15/221640 Last Action: Discontinued Fexofenadine/Pseudoephedrine (Fexofenadine-Pse ER 180-240 Tb) 1 Each Tab.er.24h, 1 EACH PO DAILY, (Reported) Discontinued Reason: Duplicate Order Entered as Reported by: DENNY HANLEY on 07/06/21 0502 Last Action: Discontinued Fluticasone/Vilanterol (Breo Ellipta 200-25 Mcg INH) 200 Mcg-25 Mcg/Dose Blst.w.dev, 1 PUFF INH DAILY, (Reported) Discontinued Reason: Duplicate Order Entered as Reported by: TERESA NAGEL on 04/15/221640 Last Action: Discontinued Hydrocodone Bit/Acetaminophen (HYDROcodone/APAP 7.5/325 TAB) 1 Ea Tablet, 1 EA PO Q4H PRN for PAIN-MODERATE (5-7) Discontinued Reason: Duplicate Order Prescribed by: TRACEE FLETCHER on 04/23/22 1047 Last Action: Discontinued Hydrocodone/Acetaminophen (Hydrocodone-Acetamin 7.5-325) 7.5 Mg-325 Mg Tablet, 1 EACH PO Q4H PRN for prn pain Discontinued Reason: Duplicate Order Prescribed by: LES HUGHES on 04/16/22 1133 Last Action: Discontinued Loperamide HCl (Loperamide) 2 Mg Capsule, 2-4 MG PO UD PRN for DIARRHEA, (Reported) Discontinued Reason: Duplicate Order Entered as Reported by: TERESA NAGEL on 04/15/221640 Last Action: Discontinued Mupirocin (Mupirocin) 2 % Oint...g., 1 APPLIC TOP TID, (Reported) Discontinued Reason: Duplicate Order Entered as Reported by: TERESA NAGEL on 04/15/221640 Last Action: Discontinued Propylene Glycol/Peg 400 (Systane 0.3-0.4% Eye Drops) 0.3 %-0.4 % Drops, 1-2 DROP OU UD PRN for DRY EYES, (Reported) Discontinued Reason: Duplicate Order Entered as Reported by: TERESA NAGEL on 04/15/221640 Last Action: Discontinued Quetiapine Fumarate (Quetiapine Fumarate) 100 Mg Tablet, 100 MG PO DAILY, (Reported) Discontinued Reason: Duplicate Order Entered as Reported by: TERESA NAGEL on 05/01/20 133 Last Action: Discontinued Quetiapine Fumarate (Quetiapine Fumarate) 100 Mg Tablet, 50 MG PO HS, (Reported) Discontinued Reason: Duplicate Order Entered as Reported by: TERESA NAGEL on 05/01/20 133 Last Action: Discontinued Sodium Chloride (Sodium Chloride) 1 Gram Tab, 1 GM PO BID Discontinued Reason: Duplicate Order Prescribed by: TRACEE FLETCHER on 04/23/22 1046 Last Action: Discontinued Review of Systems Review of Systems Constitutional: see HPI Past Saxqjtz-Qcigce-Reflnx Hx Patient Social History Tobacco Use?: No Use of E-Cig and/or Vaping dev: No Substance use?: No Alcohol Use?: No Immunizations Up To Date Tetanus Booster (TDap): Unknown PED Vaccines UTD: Yes First/Initial COVID19 Vaccinat: stated 'information is on file already" Second COVID19 Vaccination Timmy: stated 'information is on file already" Third COVID19 Vaccination Date: stated 'information is on file already" Seasonal Allergies Seasonal Allergies: No Past Medical History Surgery/Hospitalization HX: FX RT ANKLE, RT SHOULDER, HYST, GALLBLADDER, NASAL SURGERY, EYE SURGERY Surgeries: Yes Abdominal, Appendectomy, Eye Surgery, Gallbladder, 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, Joint Replacement, Orthopedic, Pacemaker Respiratory: Yes COPD Currently Using CPAP: No Currently Using BIPAP: No Cardiac: Yes (Congestive heart failure with EF of 35 percent) Atrial Fibrillation, High Cholesterol, Hypertension Neurological: Yes Dementia 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 Disorders: Yes Female 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 Disorders: Denies, 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, 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 Sexually Transmitted Disease: No HIV/AIDS: No Genitourinary: No Gastrointestinal: Yes (BLEEDING ULCER X 3; PERFORATED ULCER 2006; 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) Gastrointestinal Bleed, Chronic Diarrhea, Polyps, Ulcer, Irritable Bowel Musculoskeletal: Yes Degenerate Disk Disease, Arthritis, Chronic Back Pain, Fractures Endocrine: No HEENT: No Cataract Loss of Vision: Denies Hearing Impairment: Hard of Hearing Cancer: No Psychosocial: Yes Anxiety Integumentary: No Blood Disorders: Yes (BILATERAL P.E.'S 04/2018) Adverse Reaction/Blood Tranf: No Family Medical History Blood clots (sister had a blood clot in the brain which caused her  in 2010) Physical Exam Vital Signs - First Documented 11/24/22 22:26 Temp 36.9 Pulse 60 Resp 20 B/P (MAP) 150/74 (99) Pulse Ox 94 O2 Delivery Nasal Cannula O2 Flow Rate 2.00 Capillary Refill : Less Than 3 Seconds Height: 5'3.00" Weight: 150lbs. 0.0oz. 68.932846cn; 36.00 BMI Method:Stated General Appearance: WD/WN, no apparent distress HEENT: normal ENT inspection, pharynx normal Neck: non-tender, supple Respiratory: chest non-tender, normal breath sounds, no respiratory distress, no accessory muscle use, rales (ROS, worse) Cardiovascular: regular rate, rhythm, no murmur Gastrointestinal: normal bowel sounds, non tender, soft, no organomegaly Neurologic/Psychiatric: alert, normal mood/affect, oriented x 3 Skin: normal color, warm/dry Focused Exam Lactate Level 11/24/22 22:50: Lactic Acid Level 1.03 Lactic Acid Level Laboratory Tests Test 11/24/22 22:50 Lactic Acid Level 1.03 MMOL/L (0.50-2.00) Procedures/Interventions Patient Education: Explained Benefits, Explained Risks, Pt. Ack. Understanding Breath Sounds per Auscultation: Clear Heart Sounds per Auscultation: Regular Airway Exam: Mouth opens >2 fingers Sedation Adminstration Time: 0845 Re-examination Time: 0900 Progress/Results/Core Measures Suspected Sepsis SIRS Temperature: Pulse: 60 Respiratory Rate: 20 Laboratory Tests 11/24/22 22:32: White Blood Count 17.1H Blood Pressure 150 /74 Mean: 99 11/24/22 22:50: Lactic Acid Level 1.03 Laboratory Tests 11/24/22 22:32: Creatinine 0.81, Platelet Count 518H, Total Bilirubin 0.4 Results/Orders Lab Results Laboratory Tests Test 11/24/22 22:32 11/24/22 22:50 Range/Units White Blood Count 17.1 H 4.3-11.0 10^3/uL Red Blood Count 3.72 L 3.80-5.11 10^6/uL Hemoglobin 8.1 L 11.5-16.0 g/dL Hematocrit 26 L 35-52 % Mean Corpuscular Volume 70 L 80-99 fL Mean Corpuscular Hemoglobin 22 L 25-34 pg Mean Corpuscular Hemoglobin Concent 31 L 32-36 g/dL Red Cell Distribution Width 16.5 H 10.0-14.5 % Platelet Count 518 H 130-400 10^3/uL Mean Platelet Volume 8.8 L 9.0-12.2 fL Immature Granulocyte % (Auto) 1 % Neutrophils (%) (Auto) 70 42-75 % Lymphocytes (%) (Auto) 17 12-44 % Monocytes (%) (Auto) 7 0-12 % Eosinophils (%) (Auto) 5 0-10 % Basophils (%) (Auto) 1 0-10 % Neutrophils # (Auto) 12.0 H 1.8-7.8 10^3/uL Lymphocytes # (Auto) 2.8 1.0-4.0 10^3/uL Monocytes # (Auto) 1.2 H 0.0-1.0 10^3/uL Eosinophils # (Auto) 0.8 H 0.0-0.3 10^3/uL Basophils # (Auto) 0.1 0.0-0.1 10^3/uL Immature Granulocyte # (Auto) 0.2 H 0.0-0.1 10^3/uL Neutrophils % (Manual) 68 % Lymphocytes % (Manual) 15 % Monocytes % (Manual) 5 % Eosinophils % (Manual) 6 % Band Neutrophils 6 % Polychromasia SLIGHT Hypochromasia MODERATE Anisocytosis MODERATE Elliptocytes SLIGHT Schistocytes SLIGHT Sodium Level 124 *L 135-145 MMOL/L Potassium Level 3.4 L 3.6-5.0 MMOL/L Chloride Level 91 L 98-107 MMOL/L Carbon Dioxide Level 22 21-32 MMOL/L Anion Gap 11 5-14 MMOL/L Blood Urea Nitrogen 10 7-18 MG/DL Creatinine 0.81 0.60-1.30 MG/DL Estimat Glomerular Filtration Rate 73 BUN/Creatinine Ratio 12 Glucose Level 117 H 70-105 MG/DL Calcium Level 9.4 8.5-10.1 MG/DL Corrected Calcium 9.7 8.5-10.1 MG/DL Total Bilirubin 0.4 0.1-1.0 MG/DL Aspartate Amino Transf (AST/SGOT) 11 5-34 U/L Alanine Aminotransferase (ALT/SGPT) 8 0-55 U/L Alkaline Phosphatase 60 40-136 U/L Total Protein 6.5 6.4-8.2 GM/DL Albumin 3.6 3.2-4.5 GM/DL Lactic Acid Level 1.03 0.50-2.00 MMOL/L Micro Results Microbiology 11/24/22 Blood Culture - Preliminary, Resulted No growth 11/24/22 Blood Culture - Preliminary, Resulted No growth My Orders Orders - ASA MEALRA DO Cbc With Automated Diff (11/24/22 22:35) Comprehensive Metabolic Panel (11/24/22 22:35) Blood Culture (11/24/22 22:35) Chest 1 View, Ap/Pa Only (11/24/22 22:35) Ed Iv/Invasive Line Start (11/24/22 22:35) Vital Signs Adult Sepsis Patie Q15M (11/24/22 22:35) O2 (11/24/22 22:35) Lactic Acid Analyzer (11/24/22 22:35) Manual Differential (11/24/22 22:32) Azithromycin Injection (Zithromax Inject (11/24/22 23:30) Ceftriaxone Iv/Im (Rocephin Iv/Im) (11/24/22 23:30) Ed Admission (Communication) (11/25/22 00:09) Vital Signs/I&O 11/24/22 11/24/22 11/24/22 22:26 22:56 23:30 Temp 36.9 Pulse 60 Resp 20 B/P (MAP) 150/74 (99) Pulse Ox 94 95 O2 Delivery Nasal Cannula Nasal Cannula Nasal Cannula O2 Flow Rate 2.00 2.00 2.00 Capillary Refill : Less Than 3 Seconds Blood Pressure Mean: 99 Critical Care Note Critical Care Total Time (minutes) 45 Departure Communication (Admissions) Patient is hemodynamically stable outside of small hypoxia. This was relieved with oxygen via nasal cannula. Chest x-ray shows bilateral pneumonia, right greater than left. She started on broad-spectrum antibiotics after blood cultures were obtained. She does not meet criteria for septic shock and no indication for 30 cc/kg fluid bolus at this time. No evidence for pulmonary embolism, ACS. EKG is nonischemic troponin is negative. No evidence for pleural effusion, pulmonary edema, acute heart failure. She does have hyponatremia. Think this is likely related to volume depletion so started on IV fluids gently. She is admitted to hospitalist in stable condition. Impression Primary Impression: CAP (community acquired pneumonia) Qualified Codes: J18.9 - Pneumonia, unspecified organism Additional Impressions: Hyponatremia Hypoxia Disposition: ADMITTED INPATIENT Condition: Stable Departure-Patient Inst. Referrals: BRAD HDEZ MD (PCP/Family) Primary Care Physician Scripts Levofloxacin (Levofloxacin) 500 Mg Tablet 500 MG PO DAILY, #5 TAB Prov: KORI CREWS DO 11/27/22 Ipratropium/Albuterol Sulfate (Iprat-Albut 0.5-3(2.5) mg/3 ml) 0.5 Mg-3 Mg (2.5 Mg Base)/3 Ml Ampul.neb 3 ML INH RTQ4HR, #60 INHALER Prov: KORI CREWS DO 11/27/22 ASA MELARA DO Nov 24, 2022 22:43
[2022-11-24 23:02] LABS: ALBUMIN 3.6 GM/DL (3.2-4.5); BILIRUBIN,TOTAL 0.4 MG/DL (0.1-1.0); CALCIUM 9.4 MG/DL (8.5-10.1); CREATININE SERUM 0.81 MG/DL (0.60-1.30); POTASSIUM 3.4 MMOL/L (3.6-5.0); TOTAL PROTEIN 6.5 GM/DL (6.4-8.2)
[2022-11-24] MEDS ORDERED: AZITHROMYCIN INJECTION 500 MG in NS (IVPB) 250 ML IV ONE (23:30)
[2022-11-24] MEDS ORDERED: cefTRIAXone IV/IM 1,000 MG in NS (IVPB) 50 ML IV ONE (23:30)
[2022-11-24 23:49] LABS: BAND NEUTROPHILS 6 %; EOSINOPHILS % (MANUAL) 6 %; HYPOCHROMASIA MODERATE; LYMPHOCYTES % (MANUAL) 15 %; MONOCYTES % (MANUAL) 5 %; NEUTROPHILS % (MANUAL) 68 %; POLYCHROMASIA SLIGHT
[2022-11-24 23:50] LABS: ANISOCYTOSIS MODERATE; ELLIPT/OVALOCYTES SLIGHT; SCHISTOCYTES SLIGHT
[2022-11-25] VITALS (21 sets, daily range): BP systolic 103–146; BP diastolic 49–69
[2022-11-25] MEDS ORDERED: NS IV 1000 ML 1,000 ML IV SCH (01:30)
[2022-11-25] MEDS ORDERED: ONDANSETRON 4 MG/2 ML (SDV) Z0FRAN IV PRN ×2 (01:30→05:15)
[2022-11-25] MEDS: RT-ALBUTEROL/IPRATROPIUM 3 ML (DUONEB) VIAL INH SCH ×6 (02:41→21:49)
[2022-11-25] MEDS ORDERED: MILK OF MAGNESIA 400 MG/5 ML 30 ML UDC PO PRN (05:15)
[2022-11-25] MEDS ORDERED: ANTACID SUSP 30 ML UDC (MYLANTA) PO PRN (05:15)
[2022-11-25] MEDS ORDERED: diphenhydrAMINE 25 MG TAB (BENADRYL) PO PRN ×2 (05:15→15:00)
[2022-11-25] MEDS ORDERED: MELATONIN 3 MG TABLET PO PRN (05:15)
[2022-11-25] MEDS ORDERED: polyethylene glycoL POWDER 17 GM (MIRALAX) PACK PO PRN (05:15)
[2022-11-25] MEDS ORDERED: CALCIUM CARBONATE 500 MG (TUMS) TAB.CHEW PO PRN (05:15)
[2022-11-25] MEDS ORDERED: HYDROmorphone 2 MG/ML VIAL (DILAUDID) IV PRN (05:15)
[2022-11-25] MEDS ORDERED: ONDANSETRON 4 MG (ZOFRAN) ORAL DISSOLVE TAB PO PRN (05:15)
[2022-11-25] MEDS ORDERED: ACETAMINOPHEN 325 MG TABLET PO PRN (05:15)
[2022-11-25] MEDS ORDERED: diphenhydrAMINE 50 MG/ML INJ (BENADRYL) IVP PRN (05:15)
[2022-11-25] MEDS ORDERED: LACTULOSE SYRUP 10GM/15ML (ENULOSE) 30ML UDC PO PRN (05:15)
[2022-11-25] MEDS ORDERED: guaiFENesin/DM (ROBITUSSIN DM) 10 ML UDC PO PRN (05:15)
[2022-11-25] MEDS ORDERED: BISACODYL 10 MG SUPP (DULCOLAX) PR PRN (05:15)
[2022-11-25] MEDS ORDERED: ALPRAZolam 0.25 MG (XANAX) TAB PO PRN (05:15)
[2022-11-25] MEDS: NS IV 1000 ML 1,000 ML IV SCH ×2 (05:23→17:38)
[2022-11-25] MEDS: ENOXAPARIN 40 MG/0.4 ML (LOVENOX) SYR SC SCH (06:07)
--- NOTE | 2022-11-25 06:07 | Diagnostic Imaging Report ---
EXAMINATION: Chest 1 view HISTORY: dyspnea, hypoxia COMPARISON: 11/23/2022 FINDINGS: Heart size and pulmonary vasculature are stable. Mild interstitial opacities within the lung bases, slightly increased on the right. There is no significant pleural effusion or pneumothorax. Left-sided cardiac device is unchanged. The osseous structures are intact. Partially visualized right shoulder arthroplasty. IMPRESSION: 1. Mildly increased interstitial opacities within the right lung base. Stable left basilar opacities. Dictated by: Dictated on workstation # [id number]
--- NOTE | 2022-11-25 08:46 | History & Physical ---
History of Present Illness HPI/Chief Complaint Chief complaint hypoxia with hyponatremia HPI: This is an 82-year-old female clinic patient of Dr. Kent resides at home with caregivers who presented with hypoxia and hyponatremia with weakness. Fluid restriction initiated along with gentle IV fluids and IV antibiotics. Patient feels a little better. We will move down to fourth floor. Source: patient Exam Limitations: no limitations Date Seen 11/25/22 Time Seen by a Provider: 10:00 Attending Physician Romeo Kent MD PCP Admitting Physician: Lexi Hargrove DO Attending Physician: Lexi Hargrove DO Referring Physician Date of Admission Nov 25, 2022 at 00:38 Home Medications & Allergies Home Medications Reviewed patient Home Medication Reconciliation performed by pharmacy medication reconciliations microwave radio technician and/or nursing. Patients Allergies have been reviewed. Allergies Allergies Coded Allergies Penicillins (Verified Allergy, Mild, 04/15/22) ketorolac (Verified Allergy, Mild, 04/15/22) morphine (Verified Allergy, Mild, pt has received Lortab in the past, 04/16/22) tetracycline (Verified Allergy, Mild, 04/15/22) paroxetine (Verified Allergy, Unknown, 04/15/22) Past Chhrskq-Pwtuxx-Fhvebd Hx Past Med/Social Hx: Reviewed Nursing Past Med/Soc Hx, Reviewed and Corrections made Patient Social History Marrital Status: single Employed/Student: retired Alcohol Use: Denies Use Alcohol Beverage of Choice: Wine Smoking Status: Never a Smoker 2nd Hand Smoke Exposure: No Recent Hopitalizations: No Immunizations Up To Date Tetanus Booster (TDap): Unknown Pediatric: Yes Date of Pneumonia Vaccine: Feb 10, 2015 Date of Influenza Vaccine: Mar 27, 2020 Seasonal Allergies Seasonal Allergies: No Past Medical History Surgeries: Abdominal, Appendectomy, Eye Surgery, Gallbladder, 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, Joint Replacement, Orthopedic, Pacemaker Currently Using CPAP: No Currently Using BIPAP: No Cardiac: Atrial Fibrillation, High Cholesterol, Hypertension Neurological: Dementia 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: Yes Sexually Transmitted Disease: No HIV/AIDS: No Female 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 Disorders: Denies, Endometriosis 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, Menopausal Gastrointestinal: Gastrointestinal Bleed, Chronic Diarrhea, Polyps, Ulcer, Irritable Bowel Musculoskeletal: Degenerate Disk Disease, Arthritis, Chronic Back Pain, Fractures HEENT: Cataract Loss of Vision: Denies Hearing Impairment: Hard of Hearing Psychosocial: Anxiety History of Blood Disorders: Yes (BILATERAL P.E.'S 04/2018) Adverse Reaction to Blood Dominguez: No Family History Blood clots (sister had a blood clot in the brain which caused her  in 2010) Review of Systems Constitutional: see HPI, malaise, weakness Respiratory: cough Genitourinary: no symptoms reported Physical Exam Physical Exam Vital Signs Vital Signs - First Documented 11/24/22 11/25/22 22:26 01:37 Temp 36.9 Pulse 60 Resp 20 B/P (MAP) 150/74 (99) Pulse Ox 94 O2 Delivery Nasal Cannula O2 Flow Rate 2.00 FiO2 28 Capillary Refill : Less Than 3 Seconds Height, Weight, BMI Height: 5'3.00" Weight: 150lbs. 0.0oz. 68.190127zm; 43.76 BMI Method:Stated General Appearance: No Apparent Distress, WD/WN, Chronically ill, Obese Eyes: Bilateral Eye Normal Inspection, Bilateral Eye PERRL HEENT: PERRL/EOMI, Normal ENT Inspection, Pharynx Normal Neck: Full Range of Motion, Normal Inspection, Non Tender, Supple, Carotid Bruit Respiratory: Chest Non Tender, Lungs Clear, No Accessory Muscle Use, No Respiratory Distress, Decreased Breath Sounds Cardiovascular: Regular Rate, Rhythm, No Edema, No Gallop, No JVD, No Murmur, Normal Peripheral Pulses Gastrointestinal: Normal Bowel Sounds, No Organomegaly, No Pulsatile Mass, Non Tender, Soft Back: Normal Inspection, No CVA Tenderness, No Vertebral Tenderness Extremity: Normal Capillary Refill, Normal Inspection, Normal Range of Motion, Non Tender, No Calf Tenderness, No Pedal Edema Neurologic/Psychiatric: Alert, Oriented x3, No Motor/Sensory Deficits, Normal Mood/Affect Skin: Normal Color, Warm/Dry Lymphatic: No Adenopathy Results Results/Procedures Labs Laboratory Tests 11/24/22 22:32 Patient resulted labs reviewed. Assessment/Plan Admission Diagnosis Assessment: Acute respiratory failure Hyponatremia Pneumonia Debility chronic Plan: IV abx Move to 4th Home meds Admission Status: Observation LEXI HARGROVE DO Nov 25, 2022 08:45
[2022-11-25] MEDS: DOCUSATE SODIUM 100 MG (COLACE) CAP PO SCH ×2 (09:26→20:13)
[2022-11-25] MEDS: SENNOSIDES 8.6 MG (SENOKOT) TAB PO SCH ×2 (09:27→20:13)
[2022-11-25] MEDS ORDERED: CEFD300C3 PO (14:03)
[2022-11-25] MEDS ORDERED: CARV3.122 PO (14:03)
[2022-11-25] MEDS ORDERED: BENZ200C51 PO (14:03)
[2022-11-25] MEDS ORDERED: DIPH25CA79 PO ×2 (14:03)
[2022-11-25] MEDS ORDERED: FLUT1AER INH (14:03)
[2022-11-25] MEDS ORDERED: NF-ALLE180 PO (14:03)
[2022-11-25] MEDS ORDERED: GUAI-977 PO (14:03)
[2022-11-25] MEDS ORDERED: AZIT250T12 PO (14:03)
[2022-11-25] MEDS ORDERED: AMLO-250 PO (14:03)
[2022-11-25] MEDS ORDERED: QUET100T33 PO (14:03)
--- NOTE | 2022-11-25 14:32 | Physical Therapy Evaluation ---
PT Evaluation-General Medical Diagnosis Admission Date Nov 25, 2022 at 00:38 Medical Diagnosis: DICKENS, HYPOXIA, HYPONATREMIA Onset Date: Nov 25, 2022 Therapy Diagnosis Therapy Diagnosis: Gait deficit, strength deficit Height/Weight Height (Feet): 5 Height (Inches): 3.00 Weight (Pounds): 150 Weight (Ounces): 0.0 Precautions Precautions/Isolations: Fall Prevention, Standard Precautions Weight Bear Status Right Lower Extremity: Right Full Weight Bearing Left Lower Extremity: Left Full Weight Bearing Referral Physician: Dr. Hargrove Reason for Referral: Evaluation/Treatment Medical History Pertinent Medical History: Atrial Fib, COPD, Dementia, HTN Social History Home: Single Level Current Living Status: Children Entry Into Home: Stairs With Railing PT Steps Into Home: 3 Prior Prior Level of Function SCALE: Activities may be completed with or without assistive devices. 9-Klfwjqkqjy-vgkbvlx completes the activity by him/herself with no assistance from a helper. 5-Set-up or Clean-up Assistance-helper sets up or cleans up; patient completes activity. [place] assists only prior to or following the activity. 4-Supervision or Touching Assistance-helper provides verbal cues and/or touching/steadying and/or contact guard assistance as patient completes activity. Assistance may be provided throughout the activity or intermittently. 3-Partial/Moderate Assistance-helper does LESS THAN HALF the effort. [place] lifts, holds or supports trunk or limbs, but provides less than half the effort. 2-Substantial/Maximal Assistance-helper does MORE THAN HALF the effort. [place] lifts or holds trunk or limbs and provides more than half the effort. 5-Oftpftpdq-mxdiix does ALL the effort. Patient does none of the effort to complete the activity. Or, the assistance of 2 or more helpers is required for the patient to complete the activity. If activity was not attempted, code reason: 7-Patient Refused. 9-Not Applicable-not attempted and the patient did not perform the activity before the current illness, exacerbation or injury. 10-Not Attempted due to Environmental Limitations-(lack of equipment, weather restraints, etc.). 88-Not Attempted due to Medical Conditions or Safety Concerns. Bed Mobility: 6 Transfers (B,C,W/C): 6 Gait: 6 Stairs: 4 Indoor Mobility (Ambulation): Independent Stairs: Needed Some Help Prior Devices Use: Walker PT Evaluation-Current Subjective Patient lying supine in bed upon PT arrival, agreeable to treatment. Patient rates pain at 0/10. Objective Patient Orientation: Person, Place, Time, Situation Attachments: Oxygen, [place] Catheter, IV ROM/Strength ROM Lower Extremities WFLs BLEs all planes Strength Lower Extremities 3+/5 BLEs all planes Sensory Vision: Functional Hearing: Functional Sensation Right Lower Extremit: Intact Sensation Left Lower Extremity: Intact Transfers Roll Left to Right (QC): 4 Sit to Lying (QC): 4 Lying to Sitting/Side of Bed(Q: 4 Sit to Stand (QC): 4 Chair/Dsb-pa-Iwmvo Xfer(QC): 4 Gait Does the Patient Walk?: Yes Mode of Locomotion: Walk Anticipated Mode of Locomotion: Walk Walk 10 feet (QC): 4 Walk 50 ft with 2 Turns(QC): 3 Distance: 100 feet Gait Assistive Device: FWW Balance Sitting Static: Good Sitting Dynamic: Good Standing Static: Fair Standing Dynamic: Fair Assessment/Needs Patient tolerated treatment well. She performs all bed mobility and transfers with SBA/CGA. Patient ambulates 100 feet with FWW, with CGA and frequent verbal cues for posture, safety, and motivation. Patient ambulates with rounded shoulders, accentuated thoracic kyphosis, and head down posture. Requires moderate motivation as she wants to sit immediately after getting out of bed. Patient in transport chair with nurse post PT treatment as she is being transferred to 4th floor. 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 [facility] Goals Time Frame: Jan 03, 2023 Roll Left & Right (QC): 6 Sit to Lying (QC): 6 Lying-Sitting on Side/Bed(QC): 6 Sit to Stand (QC): 6 Chair/Lzn-ge-Debaj Xfer(QC): 6 Toilet Transfer (QC): 6 Does the Patient Walk: Yes Walk 10 feet (QC): 6 Walk 50ft with 2 Turns (QC): 4 Walk 150 ft (QC): 4 1 Step (curb) (QC): 3 4 Steps (QC): 3 PT Plan Problem List Problem List: Activity Tolerance, Functional Strength, Safety, Balance, Gait, Transfer, Bed Mobility, ROM Treatment/Plan Treatment Plan: Continue Plan of Care Treatment Plan: Bed Mobility, Education, Functional Activity Leonel, Functional Strength, Group Therapy, Gait, Safety, Therapeutic Exercise, Transfers Treatment Duration: Jan 03, 2023 Frequency: 6 times per week Estimated Hrs Per Day: .25 hour per day Patient and/or Family Agrees t: Yes Safety Risks/Education Patient Education: Gait Training, Transfer Techniques Teaching Recipient: Patient, Family Teaching Methods: Demonstration, Discussion Response to Teaching: Verbalize Understanding, Return Demonstration Time Time In: 1336 Time Out: 1351 DATE: Nov 25, 2022 Total Billed Treatment Time: 15 Total Billed Treatment Visit, BRAD JNOAS PT Nov 25, 2022 14:32
[2022-11-25] MEDS ORDERED: guaiFENesin (MUCINEX) 600 MG TAB PO PRN (14:45)
[2022-11-25] MEDS ORDERED: BENZONATATE 100 MG (TESSALON) CAPSULE PO PRN (14:45)
[2022-11-25] MEDS ORDERED: NON-FORMULARY MEDICATION 1 EA EA (Benzonatate 200 MG) PO PRN (14:45)
[2022-11-25] MEDS ORDERED: NON-FORMULARY MEDICATION 1 EA EA (Diphenhydramine HCl (Benadryl) 0 MG) PO PRN (14:45)
--- NOTE | 2022-11-25 15:27 | Occupational Therapy Eval ---
OT Evaluation-General/PLF Medical Diagnosis Admission Date Nov 25, 2022 at 00:38 Medical Diagnosis: DICKENS, HYPOXIA, HYPONATREMIA Onset Date: Nov 25, 2022 Therapy Diagnosis Therapy Diagnosis: Weakness, Decreased ADL skills Height/Weight Height (Feet): 5 Height (Inches): 3.00 Weight (Pounds): 150 Weight (Ounces): 0.0 Precautions Precautions/Isolations: Fall Prevention, Standard Precautions Weight Bear Status Weight Bearing Restriction: Weight Bearing/Tolerated Referral Physician: Dr. Hargrove Referral Reason: Activity Tolerance, Self Care, Evaluation/Treatment, Strengthening/ROM Medical History Pertinent Medical History: Atrial Fib, COPD, Dementia, HTN Additional Medical History Joint replacement, pacemaker, hysterectomy. Reviewed History: Yes Social History Home: Single Level Current Living Status: Children Entry Into Home: Stairs With Railing Steps Into Home: 2 Pt. states that she lives with her daughter. She has another daughter that has Parkinson's and lives at [facility]. ADL-Prior Level of Function SCALE: Activities may be completed with or without assistive devices. 4-Mpvgepjdyi-facleaj completes the activity by him/herself with no assistance from a helper. 5-Set-up or Clean-up Assistance-helper sets up or cleans up; patient completes activity. [place] assists only prior to or following the activity. 4-Supervision or Touching Assistance-helper provides verbal cues and/or touching/steadying and/or contact guard assistance as patient completes activity. Assistance may be provided throughout the activity or intermittently. 3-Partial/Moderate Assistance-helper does LESS THAN HALF the effort. [place] lifts, holds or supports trunk or limbs, but provides less than half the effort. 2-Substantial/Maximal Assistance-helper does MORE THAN HALF the effort. [place] lifts or holds trunk or limbs and provides more than half the effort. 3-Hwcrnyzkg-elhmic does ALL the effort. Patient does none of the effort to complete the activity. Or, the assistance of 2 or more helpers is required for the patient to complete the activity. If activity was not attempted, code reason: 7-Patient Refused. 9-Not Applicable-not attempted and the patient did not perform the activity before the current illness, exacerbation or injury. 10-Not Attempted due to Environmental Limitations-(lack of equipment, weather restraints, etc.). 88-Not Attempted due to Medical Conditions or Safety Concerns. ADL PLOF Comments Pt. reports that her daughter assists her, but that she also has a caregiver named Arabella. Her caregiver comes Mon-Fri, 7:20-3:15 each day. She helps her bathe and dress. However, when OT asks later what she does to help her, pt. states that she is able to bathe/dress herself. Pt. also indicates that she wears oxygen at home but that she does not know how much. Self Care: Needed Some Help Functional Cognition: Needed Some Help DME/Equipment: Bath Chair, Tub/Shower DME/Equipment Comments Pt. states that she does use a walker at home. OT Current Status Subjective Pt. reports that she does not feel very good. Does not report pain, just that she has a hard time catching her breath. When pt. is asked about this she reports that she is very allergic to cats. OT asks her if she had an allergic reaction to cats, prompting current situation, and she states, "no." Appearance Pt. in bed. Alert and agreeable to work with OT. Mental Status/Objective Patient Orientation: Person Attachments: Oxygen ADL-Treatment Eating (QC): 5 (Set up per pt.) Oral Hygiene (QC): 4 (Pt. is able to brush her teeth with supervision while seated on EOB. OT brushes her hair for her for thoroughness.) On/Off Footwear (QC): 1 (Pt. unable to reach her feet to doff/don slipper socks.) Other Treatments Pt. agrees to sit EOB. Transfers with min assist for supine-sit to EOB. Seems slightly wobbly at first, but is able to gain balance seated. After brushing teeth/hair, pt. requests to lay back down. She requires increased time to attempt to transfer, and once she does she requires mod assist to get her feet into bed. All needs met. Pt. with call light and tray. Education OT Patient Education: Correct positioning, Modified ADL techniques, Progress toward Goal/Update tx plan, Purpose of tx/functional activities, Reviewed precautions, Rehab process, Transfer techniques Teaching Recipient: Patient Teaching Methods: Demonstration, Discussion Response to Teaching: Verbalize Understanding, Return Demonstration, Reinforcement Needed OT [facility] Goals [facility] Goals Time Frame: Dec 09, 2022 Eating (QC): 6 Oral Hygiene (QC): 5 Toileting Hygiene (QC): 4 Upper Body Dressing (QC): 5 Lower Body Dressing (QC): 4 On/Off Footwear (QC): 4 Additional Goals: 1-Demonstrate ADL Tasks, 2-Verbalize Understanding, 3- ImproveStrength/Leonel 1=Demonstrate adherence to instructed precautions during ADL tasks. 2=Patient will verbalize/demonstrate understanding of assistive devices/modifications for ADL. 3=Patient will improve strength/tolerance for activity to enable patient to perform ADL's. Pt. does have assistance from her daughter and from caregiver for ADL needs. Wi ll work to increase overall strength/endurance with daily skills. OT Education/Plan Problem List/Assessment Assessment: Decreased Activ Tolerance, Decreased UE Strength, Dependent Transfers, Impaired Bed Mobility, Impaired I ADL's, Impaired Self-Care Skills Discharge Recommendations Plan/Recommendations: Continue POC Therapy Discharge Recommendati: Post Acute OT Treatment Plan/Plan of Care Treatment,Training & Education: Yes Patient would benefit from OT for education, treatment and training to promote independence in ADL's, mobility, safety and/or upper extremity function for ADL's. Plan of Care: ADL Retraining, Functional Mobility, UE Funct Exercise/Act Treatment Duration: Dec 09, 2022 Frequency: 3 times per week (3-5x/week) Estimated Hrs Per Day: .25 hour per day Agreement: Yes Rehab Potential: Fair Time Start Time: 14:25 Stop Time: 14:41 DATE: Nov 25, 2022 Total Time Billed (hr/min): 16 Billed Treatment Time 1, EVM x 16minutes YOSSI GUEVARA OT Nov 25, 2022 15:27
[2022-11-25] MEDS: QUEtiapine 100 MG (SEROquel) TAB IMMEDIATE RELEASE PO SCH ×2 (17:10→20:17)
[2022-11-25] MEDS: ACETAMINOPHEN 500 MG TAB (TYLENOL) PO SCH (17:10)
[2022-11-25] MEDS: CALCIUM CARB + VIT D 600 MG (CALCARB + D) TAB PO SCH (17:10)
[2022-11-25] MEDS: MIRTAZAPINE 15 MG (REMERON) TAB PO SCH (20:17)
[2022-11-25] MEDS: MELATONIN 10 MG TABLET PO SCH (20:17)
[2022-11-25] MEDS: MONTELUKAST 10 MG (SINGULAIR) TAB PO SCH (20:17)
[2022-11-25] MEDS: FLUTICASONE NASAL SPRAY (FLONASE) 16 GM BTL NS SCH (20:18)
[2022-11-25] MEDS: RIVASTIGMINE 1.5 MG (EXELON) CAP PO SCH (20:18)
[2022-11-25] MEDS: AtorvaSTATin TABLET 10 MG TABLET PO SCH (20:18)
[2022-11-25] MEDS ORDERED: NON-FORMULARY MEDICATION 1 EA EA (Calcium Carbonate/Vitamin D3 (Calcium 600 + Vit D 200 Ta PO SCH (21:00)
[2022-11-25] MEDS ORDERED: LORazepam 0.5 MG (ATIVAN) TABLET PO PRN (21:00)
[2022-11-25] MEDS ORDERED: NON-FORMULARY MEDICATION 1 EA EA (Pravastatin Sodium 40 MG) PO SCH (21:00)
[2022-11-25] MEDS ORDERED: NON-FORMULARY MEDICATION 1 EA EA (Mirtazapine 15 MG) PO SCH (21:00)
[2022-11-25] MEDS ORDERED: NON-FORMULARY MEDICATION 1 EA EA (Melatonin 5 MG) PO SCH (21:00)
[2022-11-26] MEDS ORDERED: cefTRIAXone IV/IM 1,000 MG in NS (IVPB) 50 ML IV SCH ×2
[2022-11-26] MEDS ORDERED: AZITHROMYCIN INJECTION 250 MG in NS (IVPB) 250 ML IV SCH ×2
[2022-11-26] MEDS: RT-ALBUTEROL/IPRATROPIUM 3 ML (DUONEB) VIAL INH SCH ×6 (02:52→22:04)
[2022-11-26 03:51] VITALS: BP 130/62
[2022-11-26 05:34] LABS: BASOPHILS # (AUTO) 0.1 10^3/uL (0.0-0.1); BASOPHILS % (AUTO) 0 % (0-10); EOSINOPHILS # (AUTO) 1.1 10^3/uL (0.0-0.3); EOSINOPHILS % (AUTO) 6 % (0-10); HEMATOCRIT 25 % (35-52); HEMOGLOBIN 7.6 g/dL (11.5-16.0); LYMPHOCYTES # (AUTO) 2.2 10^3/uL (1.0-4.0); LYMPHOCYTES % (AUTO) 12 % (12-44); MEAN CORPUSCULAR HEMOGLOBIN 22 pg (25-34); MEAN CORPUSCULAR HGB CONC 30 g/dL (32-36); MEAN CORPUSCULAR VOLUME 71 fL (80-99); MEAN PLATELET VOLUME 9.1 fL (9.0-12.2); MONOCYTES # (AUTO) 1.3 10^3/uL (0.0-1.0); MONOCYTES % (AUTO) 7 % (0-12); NEUTROPHILS # (AUTO) 13.7 10^3/uL (1.8-7.8); NEUTROPHILS % (AUTO) 74 % (42-75); PLATELET COUNT 470 10^3/uL (130-400); WHITE BLOOD COUNT 18.5 10^3/uL (4.3-11.0)
[2022-11-26 05:56] LABS: ALBUMIN 3.5 GM/DL (3.2-4.5); BILIRUBIN,TOTAL 0.3 MG/DL (0.1-1.0); CALCIUM 9.1 MG/DL (8.5-10.1); CREATININE SERUM 0.83 MG/DL (0.60-1.30); POTASSIUM 3.6 MMOL/L (3.6-5.0); TOTAL PROTEIN 6.1 GM/DL (6.4-8.2)
[2022-11-26] MEDS: ENOXAPARIN 40 MG/0.4 ML (LOVENOX) SYR SC SCH (06:16)
[2022-11-26] MEDS: FLUTICASONE/VILANTEROL 100 MCG 14'S (BREO) IH SCH (07:18)
[2022-11-26 07:40] VITALS: BP 181/73
[2022-11-26] MEDS: OXYBUTYNIN (DITROPAN) 5 MG TAB PO SCH ×2 (08:22→20:57)
[2022-11-26] MEDS: PANTOPRAZOLE 40 MG (PROTONIX) TAB PO SCH (08:24)
[2022-11-26] MEDS: KCL 10 MEQ TAB (MICRO K) PO SCH (08:24)
[2022-11-26] MEDS: RIVASTIGMINE 1.5 MG (EXELON) CAP PO SCH ×2 (08:24→20:57)
[2022-11-26] MEDS: SENNOSIDES 8.6 MG (SENOKOT) TAB PO SCH ×2 (08:24→21:19)
[2022-11-26] MEDS: DOCUSATE SODIUM 100 MG (COLACE) CAP PO SCH ×2 (08:24→21:19)
[2022-11-26] MEDS: amLODIPine 5 MG (NORVASC) TAB PO SCH (08:24)
[2022-11-26] MEDS: CALCIUM CARB + VIT D 600 MG (CALCARB + D) TAB PO SCH ×2 (08:24→16:20)
[2022-11-26] MEDS: FUROSEMIDE 20 MG (LASIX) TAB PO SCH (08:24)
[2022-11-26] MEDS: LORATADINE (CLARITIN) 10 MG TAB PO SCH (08:24)
[2022-11-26] MEDS: FLUTICASONE NASAL SPRAY (FLONASE) 16 GM BTL NS SCH ×2 (08:25→20:58)
[2022-11-26] MEDS: QUEtiapine 100 MG (SEROquel) TAB IMMEDIATE RELEASE PO SCH ×3 (08:26→21:43)
--- NOTE | 2022-11-26 08:54 | Progress Note ---
Subjective Date Seen by a Provider: Nov 26, 2022 Time Seen by a Provider: 10:00 Subjective/Events-last exam Patient doing a lot better Daughter at the bedside Patient has / caregiving at home We will wean oxygen off today Discharge plan for tomorrow Review of Systems General: Fatigue, Malaise Pulmonary: Dyspnea Focused Exam Lactate Level 11/24/22 22:50: Lactic Acid Level 1.03 Objective Exam Last Set of Vital Signs Vital Signs Date Time Temp Pulse Resp B/P (MAP) Pulse Ox O2 Delivery O2 Flow Rate FiO2 11/26/22 08:35 Nasal Cannula 2.00 11/26/22 07:40 36.6 60 18 181/73 (109) 92 11/25/22 01:37 28 Capillary Refill : Less Than 3 Seconds I&O Intake and Output 11/26/22 00:00 Intake Total 1356 ml Balance 1356 ml Intake Oral 772 ml IV Total 584 ml # Voids 1 Daily Weight Change No General: Alert, Oriented X3, Cooperative, No Acute Distress Lungs: Clear to Auscultation, Normal Air Movement Heart: Regular Rate, Normal S1, Normal S2, No Murmurs Psych/Mental Status: Mental Status NL, Mood NL Results Lab Laboratory Tests 11/26/22 04:57: White Blood Count 18.5H, Red Blood Count 3.52L, Hemoglobin 7.6L, Hematocrit 25L, Mean Corpuscular Volume 71L, Mean Corpuscular Hemoglobin 22L, Mean Corpuscular Hemoglobin Concent 30L, Red Cell Distribution Width 16.7H, Platelet Count 470H, Mean Platelet Volume 9.1, Immature Granulocyte % (Auto) 1, Neutrophils (%) (Auto) 74, Lymphocytes (%) (Auto) 12, Monocytes (%) (Auto) 7, Eosinophils (%) (Auto) 6, Basophils (%) (Auto) 0, Neutrophils # (Auto) 13.7H, Lymphocytes # (Auto) 2.2, Monocytes # (Auto) 1.3H, Eosinophils # (Auto) 1.1H, Basophils # (Auto) 0.1, Immature Granulocyte # (Auto) 0.2H, Sodium Level 125*L, Potassium Level 3.6, Chloride Level 93L, Carbon Dioxide Level 20L, Anion Gap 12, Blood Urea Nitrogen 11, Creatinine 0.83, Estimat Glomerular Filtration Rate 71, BUN/Creatinine Ratio 13, Glucose Level 125H, Calcium Level 9.1, Corrected Calcium 9.5, Total Bilirubin 0.3, Aspartate Amino Transf (AST/SGOT) 15, Alanine Aminotransferase (ALT/SGPT) 8, Alkaline Phosphatase 56, Total Protein 6.1L, Albumin 3.5 Microbiology 11/24/22 Blood Culture - Preliminary, Resulted No growth Assessment/Plan Assessment/Plan Assess & Plan/Chief Complaint Assessment: Acute respiratory failure Hyponatremia suspicious for SIADH and polydipsia Pneumonia Debility chronic Plan: IV abx Fluid restriction Home meds KORI RCEWS DO Nov 26, 2022 08:54
[2022-11-26] MEDS ORDERED: NON-FORMULARY MEDICATION 1 EA EA (Diphenhydramine HCl (Benadryl) 0 MG) PO SCH (09:00)
[2022-11-26] MEDS ORDERED: NON-FORMULARY MEDICATION 1 EA EA (Oxybutynin Chloride (Oxybutynin Chloride ER) 10 MG) PO SCH (09:00)
[2022-11-26] MEDS ORDERED: NON-FORMULARY MEDICATION 1 EA EA (Fexofenadine HCl 180 MG) PO SCH (09:00)
--- NOTE | 2022-11-26 09:36 | Diagnostic Imaging Report ---
INDICATION: Pneumonia, fatigue. COMPARISON: 11/24/2022. FINDINGS: Right shoulder prosthesis and pacemaker device stable. The heart size is upper limits but not substantially changed from prior exam. Some mild prominence of the central vascularity unchanged. Some streaky interstitial type densities and linear opacities in the left lung base have progressed morphologically suggestive of increased atelectasis, however pneumonia could not be excluded in the appropriate clinical scenario. IMPRESSION: Increased left basilar opacity favored to be atelectasis with unchanged upper limits heart size and venous distention. No pleural fluid or pneumothorax. Dictated by: Dictated on workstation # [id number]
[2022-11-26 11:23] VITALS: BP 140/67
[2022-11-26] MEDS: ACETAMINOPHEN 500 MG TAB (TYLENOL) PO SCH ×2 (11:31→16:21)
--- NOTE | 2022-11-26 12:54 | Occupational Ther Daily Note ---
OT Current Status-Daily Note Subjective Pt sleeping in bed, woke to name. Pt agrees to therapy. No c/o pain. Mental Status/Objective Patient Orientation: Person, Situation Attachments: IV, Oxygen (2L) ADL-Treatment Pt requests to use toileting. Min A for supine to EOB. CGA for ambulating using FWW to bathroom and to transfer onto toilet. Pt manipulated own clothing to hike down over hips with SBA then assist to thoroughly cleanse buttocks and hike pants up over hips. Ambulation to recliner to eat lunch. Pt able to co mplete own meal set up and use regular utensils to eat. After session, pt sitting in recliner with call light/phone in reach. Nrsg present in room. Therapy Code Descriptions/Definitions Functional [place] Measure: 0=Not Assessed/NA 4=Minimal Assistance 1=Total Assistance 5=Supervision or Setup 2=Maximal Assistance 6=Modified [place] 3=Moderate Assistance 7=Complete IndependenceSCALE: Activities may be completed with or without assistive devices. 1-Ieodycydgq-hncoosu completes the activity by him/herself with no assistance from a helper. 5-Set-up or Clean-up Assistance-helper sets up or cleans up; patient completes activity. [place] assists only prior to or following the activity. 4-Supervision or Touching Assistance-helper provides verbal cues and/or touching/steadying and/or contact guard assistance as patient completes activity. Assistance may be provided throughout the activity or intermittently. 3-Partial/Moderate Assistance-helper does LESS THAN HALF the effort. [place] lifts, holds or supports trunk or limbs, but provides less than half the effort. 2-Substantial/Maximal Assistance-helper does MORE THAN HALF the effort. [place] lifts or holds trunk or limbs and provides more than half the effort. 1-Enlctotzw-mlzxwh does ALL the effort. Patient does none of the effort to complete the activity. Or, the assistance of 2 or more helpers is required for the patient to complete the activity. If activity was not attempted, code reason: 7-Patient Refused. 9-Not Applicable-not attempted and the patient did not perform the activity before the current illness, exacerbation or injury. 10-Not Attempted due to Environmental Limitations-(lack of equipment, weather restraints, etc.). 88-Not Attempted due to Medical Conditions or Safety Concerns. 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 2=Patient will verbalize/demonstrate understanding of assistive devices/modifications for ADL. 3=Patient will improve strength/tolerance for activity to enable patient to perform ADL's. OT Education/Plan Problem List/Assessment Assessment: Decreased Activ Tolerance, Impaired Funct Balance, Impaired Self- Care Skills Discharge Recommendations Plan/Recommendations: Continue POC Treatment Plan/Plan of Care Patient would benefit from OT for education, treatment and training to promote independence in ADL's, mobility, safety and/or upper extremity function for ADL's. Plan of Care: ADL Retraining, Functional Mobility, UE Funct Exercise/Act Treatment Duration: Dec 09, 2022 Frequency: 3 times per week (3-5x/week) Estimated Hrs Per Day: .25 hour per day Agreement: Yes Rehab Potential: Fair Time Start Time: 12:35 Stop Time: 12:50 DATE: Nov 26, 2022 Total Time Billed (hr/min): 15 Billed Treatment Time 1 visit-ADL 1 (15 min) RITIKA GODINEZ Nov 26, 2022 12:54
[2022-11-26 15:26] VITALS: BP 136/61
--- NOTE | 2022-11-26 15:43 | Physical Therapy Daily Note ---
PT Daily Note-Current Subjective Patient lying supine in bed upon PT arrival, agreeable to treatment but states "I'm so tired." Patient reports 0/10 pain currently. RT performed walking O2 test simultaneously. Pain Section J - Health Conditions 1. Rarely or not at all 2. Occasionally 3. Frequently 4. Almost constantly 8. Unable to answer Pain Effect on Sleep: 1 Pain Interference with Therapy: 1 Pain Interference w/Day-to-Day: 1 Mental Status Patient Orientation: Person Transfers SCALE: Activities may be completed with or without assistive devices. 4-Gqxswqawzy-vuckuon completes the activity by him/herself with no assistance from a helper. 5-Set-up or Clean-up Assistance-helper sets up or cleans up; patient completes activity. [place] assists only prior to or following the activity. 4-Supervision or Touching Assistance-helper provides verbal cues and/or touching/steadying and/or contact guard assistance as patient completes activity. Assistance may be provided throughout the activity or intermittently. 3-Partial/Moderate Assistance-helper does LESS THAN HALF the effort. [place] lifts, holds or supports trunk or limbs, but provides less than half the effort. 2-Substantial/Maximal Assistance-helper does MORE THAN HALF the effort. [place] lifts or holds trunk or limbs and provides more than half the effort. 9-Xejybiscy-wssdfa does ALL the effort. Patient does none of the effort to complete the activity. Or, the assistance of 2 or more helpers is required for the patient to complete the activity. If activity was not attempted, code reason: 7-Patient Refused. 9-Not Applicable-not attempted and the patient did not perform the activity before the current illness, exacerbation or injury. 10-Not Attempted due to Environmental Limitations-(lack of equipment, weather restraints, etc.). 88-Not Attempted due to Medical Conditions or Safety Concerns. Roll Left & Right (QC): 3 Sit to Lying (QC): 3 Lying to Sitting/Side of Bed(Q: 3 Sit to Stand (QC): 3 Chair/Ljv-ij-Filow Xfer(QC): 3 Toilet Transfer (QC): 3 Weight Bearing Right Lower Extremity: Right Full Weight Bearing Left Lower Extremity: Left Full Weight Bearing Gait Training Does the Patient Walk?: Yes Distance: 60 Walk 10 feet (QC): 3 Walk 50 ft with 2 Turns(QC): 3 Gait Assistive Device: FWW Assessment Current Status: Poor Progress Patient verbally resistive to treatment, but once sitting on the side of the bed agreeable. Patient performs all bed mobility and transfers with min/mod A and verbal cues. Patient ambulates 60 feet with FWW, with min/mod A and verbal cues for safety, progression, posture and motivation. Patient in bed post treatment with all needs met, nursing notified, call light in reach and RT in the room administering a breathing treatment. PT Graduate Internship Goals [facility]sp Goals PT [facility]sp Goals Time Frame: Jan 03, 2023 Roll Left & Right (QC): 6 Sit to Lying (QC): 6 Lying-Sitting on Side/Bed(QC): 6 Sit to Stand (QC): 6 Chair/Jrl-sf-Jaezz Xfer(QC): 6 Toilet Transfer (QC): 6 Does the Patient Walk: Yes Walk 10 feet (QC): 6 Walk 50ft with 2 Turns (QC): 4 Walk 150 ft (QC): 4 1 Step (curb) (QC): 3 4 Steps (QC): 3 PT Plan Treatment/Plan Treatment Plan: Continue Plan of Care Treatment Plan: Bed Mobility, Education, Functional Activity Leonel, Functional Strength, Group Therapy, Gait, Safety, Therapeutic Exercise, Transfers Treatment Duration: Jan 03, 2023 Frequency: 6 times per week Estimated Hrs Per Day: .25 hour per day Patient and/or Family Agrees t: Yes Safety Risks/Education Patient Education: Gait Training, Transfer Techniques Teaching Recipient: Patient Teaching Methods: Demonstration, Discussion Response to Teaching: Reinforcement Needed Time Time In: 1310 Time Out: 1330 DATE: Nov 26, 2022 Total Billed Treatment Time: 20 Total Billed Treatment Visit, GT BRAD ROSA PT Nov 26, 2022 15:43
[2022-11-26 19:34] VITALS: BP 123/67
[2022-11-26] MEDS: MIRTAZAPINE 15 MG (REMERON) TAB PO SCH (20:57)
[2022-11-26] MEDS: AtorvaSTATin TABLET 10 MG TABLET PO SCH (20:57)
[2022-11-26] MEDS: MONTELUKAST 10 MG (SINGULAIR) TAB PO SCH (20:57)
[2022-11-26] MEDS: MELATONIN 10 MG TABLET PO SCH (20:57)
[2022-11-27] VITALS (7 sets, daily range): BP systolic 104–131; BP diastolic 62–80
[2022-11-27] MEDS: RT-ALBUTEROL/IPRATROPIUM 3 ML (DUONEB) VIAL INH SCH ×4 (03:25→14:53)
[2022-11-27 05:23] LABS: BASOPHILS # (AUTO) 0.1 10^3/uL (0.0-0.1); BASOPHILS % (AUTO) 0 % (0-10); EOSINOPHILS # (AUTO) 0.9 10^3/uL (0.0-0.3); EOSINOPHILS % (AUTO) 5 % (0-10); HEMATOCRIT 24 % (35-52); HEMOGLOBIN 7.3 g/dL (11.5-16.0); LYMPHOCYTES # (AUTO) 2.3 10^3/uL (1.0-4.0); LYMPHOCYTES % (AUTO) 13 % (12-44); MEAN CORPUSCULAR HEMOGLOBIN 22 pg (25-34); MEAN CORPUSCULAR HGB CONC 31 g/dL (32-36); MEAN CORPUSCULAR VOLUME 71 fL (80-99); MEAN PLATELET VOLUME 9.1 fL (9.0-12.2); MONOCYTES # (AUTO) 1.2 10^3/uL (0.0-1.0); MONOCYTES % (AUTO) 7 % (0-12); NEUTROPHILS # (AUTO) 13.2 10^3/uL (1.8-7.8); NEUTROPHILS % (AUTO) 74 % (42-75); PLATELET COUNT 455 10^3/uL (130-400); WHITE BLOOD COUNT 17.9 10^3/uL (4.3-11.0)
[2022-11-27 05:31] LABS: ALBUMIN 3.3 GM/DL (3.2-4.5)
[2022-11-27 05:32] LABS: POTASSIUM 3.6 MMOL/L (3.6-5.0)
[2022-11-27 05:33] LABS: CALCIUM 9.3 MG/DL (8.5-10.1)
[2022-11-27 05:36] LABS: BILIRUBIN,TOTAL 0.3 MG/DL (0.1-1.0)
[2022-11-27 05:37] LABS: CREATININE SERUM 0.72 MG/DL (0.60-1.30)
[2022-11-27] MEDS: ENOXAPARIN 40 MG/0.4 ML (LOVENOX) SYR SC SCH (05:37)
[2022-11-27] MEDS: SENNOSIDES 8.6 MG (SENOKOT) TAB PO SCH (08:20)
[2022-11-27] MEDS: PANTOPRAZOLE 40 MG (PROTONIX) TAB PO SCH (08:20)
[2022-11-27] MEDS: DOCUSATE SODIUM 100 MG (COLACE) CAP PO SCH (08:21)
[2022-11-27] MEDS: RIVASTIGMINE 1.5 MG (EXELON) CAP PO SCH (08:21)
[2022-11-27] MEDS: amLODIPine 5 MG (NORVASC) TAB PO SCH (08:21)
[2022-11-27] MEDS: OXYBUTYNIN (DITROPAN) 5 MG TAB PO SCH (08:21)
[2022-11-27] MEDS: CALCIUM CARB + VIT D 600 MG (CALCARB + D) TAB PO SCH (08:21)
[2022-11-27] MEDS: LORATADINE (CLARITIN) 10 MG TAB PO SCH (08:21)
[2022-11-27] MEDS: FUROSEMIDE 20 MG (LASIX) TAB PO SCH (08:21)
[2022-11-27] MEDS: KCL 10 MEQ TAB (MICRO K) PO SCH (08:21)
[2022-11-27] MEDS: FLUTICASONE NASAL SPRAY (FLONASE) 16 GM BTL NS SCH (08:22)
[2022-11-27] MEDS: FLUTICASONE/VILANTEROL 100 MCG 14'S (BREO) IH SCH (08:27)
[2022-11-27] MEDS: QUEtiapine 100 MG (SEROquel) TAB IMMEDIATE RELEASE PO SCH ×2 (08:27→16:28)
[2022-11-27] MEDS ORDERED: AZITHROMYCIN 250 MG TAB (ZITHROMAX) PO SCH (09:00)
[2022-11-27] MEDS ORDERED: cefTRIAXone IV/IM 1,000 MG in NS (IVPB) 50 ML IV SCH (09:00)
--- NOTE | 2022-11-27 10:31 | Physical Therapy Progress Note ---
Therapy Progress Note Patient is very confused and declined therapy. Will attempt tomorrow a.m. 1 ref INDIRA PEREZ PT Nov 27, 2022 10:31
--- NOTE | 2022-11-27 10:37 | Occ Therapy Progress Note ---
Therapy Progress Note Patient confused and reports she is in [place], she is 21. 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 OT will attempt next available opportunity PARVIZ HERRERA OT Nov 27, 2022 10:37
[2022-11-27] MEDS: ACETAMINOPHEN 500 MG TAB (TYLENOL) PO SCH ×2 (11:17→16:28)
[2022-11-27 11:19] LABS: ABSOLUTE RETIC # 74 10e9/uL (24-90); RETICULOCYTE % 2.21 % (0.50-2.40)
[2022-11-27] MEDS ORDERED: IPRA3AMP31 INH (11:27)
[2022-11-27] MEDS ORDERED: LEVO-55 PO (11:27)
--- NOTE | 2022-11-27 11:28 | D/C HH Face to Face Order ---
D/C Face to Face Orders Reconcile Patient Problems Problems Reviewed?: Yes Instructions for Patient Via [facility] [email or web address], Patient Instructions/FollowUp: PCP 1 week Physician to follow Patient: PCP Discharge Diet for Home: No Restrictions Patient Problems: PNA Debility Patient Data-Allergies,Ht & Wt Patient Allergies: Coded Allergies: Penicillins (Verified Allergy, Mild, 04/15/22) ketorolac (Verified Allergy, Mild, 04/15/22) morphine (Verified Allergy, Mild, pt has received Lortab in the past, 04/16/22) tetracycline (Verified Allergy, Mild, 04/15/22) paroxetine (Verified Allergy, Unknown, 04/15/22) Height (Feet): 5 Height (Inches): 3.00 Weight (Pounds): 150 Weight (Ounces): 0.0 Home Health Need/Face to Face Date of Face to Face: Nov 27, 2022 Clinical Findings: Generalized weakness and fatigue, Muscle weakness, Shortness of breath I have seen Pt [id number]: Yes Discharged To: Home Diagnosis/Conditions: PNA Hypoxia Patient is Homebound due to: CognItive deficits, Muscle weakness, Shortness of breath/distress Homebound Status Due to the above stated illness, injury or surgical procedure (medical condition or diagnosis) and associated clinical findings, the patient is homebound because of his/her inability to leave home except with aid of a supportive device and/or person AND leaving the home requires a considerable and taxing effort or is medically contraindicated. Pt req the following assistanc: [facility] Nursing Orders Home Health Services Order: Nursing Services, [facility]-Evaluate & Treat, Physical Therapy-Evaluate & Treat Home Health Infusion Therapy Line Start Date: Nov 24, 2022 Certify Stmt I certify that this patient is under my care and that I, a nurse practitioner or a physician; a internal medicine physician assistant working with me, had a face to face encounter that -meets the physician face to face encounter requirements with this patient as dated. KORI CREWS DO Nov 27, 2022 11:28
--- NOTE | 2022-11-27 11:29 | Discharge Summary ---
Diagnosis/Chief Complaint Date of Admission Nov 25, 2022 at 00:38 Date of Discharge Discharge Date: Nov 27, 2022 Discharge Diagnosis Assessment: Acute respiratory failure Hyponatremia suspicious for SIADH and polydipsia Pneumonia Debility chronic Dementia Discharge Summary Discharge Physical Examination Allergies: Coded Allergies: Penicillins (Verified Allergy, Mild, 04/15/22) ketorolac (Verified Allergy, Mild, 04/15/22) morphine (Verified Allergy, Mild, pt has received Lortab in the past, 04/16/22) tetracycline (Verified Allergy, Mild, 04/15/22) paroxetine (Verified Allergy, Unknown, 04/15/22) Vitals & I&Os Vital Signs Date Time Temp Pulse Resp B/P (MAP) Pulse Ox O2 Delivery O2 Flow Rate FiO2 11/27/22 16:29 36.1 60 20 131/62 97 Nasal Cannula 2.00 11/25/22 01:37 28 General Appearance: Alert, Cooperative Respiratory: Clear to Auscultation Cardiovascular: Regular Rate Hospital Course Was the Problem List Reviewed?: Yes Hospital course: Patient had an uneventful hospital course after he was admitted for pneumonia and failed outpatient treatment. Hyponatremia responded to fluid restriction. 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 Fluid restriction counseled. Patient responded to IV antibiotics although she was motivated to get out of bed doing much and places her at risk for recurrent pneumonia and I did tell her daughter this. Advanced Age and poor ambulation places her at risk for decompensation. Labs (last 24 hrs) Laboratory Tests 11/24/22 22:32: White Blood Count 17.1H, Red Blood Count 3.72L, Hemoglobin 8.1L, Hematocrit 26L, Mean Corpuscular Volume 70L, Mean Corpuscular Hemoglobin 22L, Mean Corpuscular Hemoglobin Concent 31L, Red Cell Distribution Width 16.5H, Platelet Count 518H, Mean Platelet Volume 8.8L, Immature Granulocyte % (Auto) 1, Neutrophils (%) (Auto) 70, Lymphocytes (%) (Auto) 17, Monocytes (%) (Auto) 7, Eosinophils (%) (Auto) 5, Basophils (%) (Auto) 1, Neutrophils # (Auto) 12.0H, Lymphocytes # (Auto) 2.8, Monocytes # (Auto) 1.2H, Eosinophils # (Auto) 0.8H, Basophils # (Auto) 0.1, Immature Granulocyte # (Auto) 0.2H, Neutrophils % (Manual) 68, Lymphocytes % (Manual) 15, Monocytes % (Manual) 5, Eosinophils % (Manual) 6, Band Neutrophils 6, Polychromasia SLIGHT, Hypochromasia MODERATE, Anisocytosis MODERATE, Elliptocytes SLIGHT, Schistocytes SLIGHT, Sodium Level 124*L, Potassium Level 3.4L, Chloride Level 91L, Carbon Dioxide Level 22, Anion Gap 11, Blood Urea Nitrogen 10, Creatinine 0.81, Estimat Glomerular Filtration Rate 73, BUN/Creatinine Ratio 12, Glucose Level 117H, Calcium Level 9.4, Corrected Calcium 9.7, Total Bilirubin 0.4, Aspartate Amino Transf (AST/SGOT) 11, Alanine Aminotransferase (ALT/SGPT) 8, Alkaline Phosphatase 60, Total Protein 6.5, Albumin 3.6 11/24/22 22:50: Lactic Acid Level 1.03 11/26/22 04:57: White Blood Count 18.5H, Red Blood Count 3.52L, Hemoglobin 7.6L, Hematocrit 25L, Mean Corpuscular Volume 71L, Mean Corpuscular Hemoglobin 22L, Mean Corpuscular Hemoglobin Concent 30L, Red Cell Distribution Width 16.7H, Platelet Count 470H, Mean Platelet Volume 9.1, Immature Granulocyte % (Auto) 1, Neutrophils (%) (Auto) 74, Lymphocytes (%) (Auto) 12, Monocytes (%) (Auto) 7, Eosinophils (%) (Auto) 6, Basophils (%) (Auto) 0, Neutrophils # (Auto) 13.7H, Lymphocytes # (Auto) 2.2, Monocytes # (Auto) 1.3H, Eosinophils # (Auto) 1.1H, Basophils # (Auto) 0.1, Immature Granulocyte # (Auto) 0.2H, Sodium Level 125*L, Potassium Level 3.6, Chloride Level 93L, Carbon Dioxide Level 20L, Anion Gap 12, Blood Urea Nitrogen 11, Creatinine 0.83, Estimat Glomerular Filtration Rate 71, BUN/Creatinine Ratio 13, Glucose Level 125H, Calcium Level 9.1, Corrected Calcium 9.5, Total Bilirubin 0.3, Aspartate Amino Transf (AST/SGOT) 15, Alanine Aminotransferase (ALT/SGPT) 8, Alkaline Phosphatase 56, Total Protein 6.1L, Albumin 3.5 11/27/22 05:08: White Blood Count 17.9H, Red Blood Count 3.36L, Hemoglobin 7.3L, Hematocrit 24L, Mean Corpuscular Volume 71L, Mean Corpuscular Hemoglobin 22L, Mean Corpuscular Hemoglobin Concent 31L, Red Cell Distribution Width 16.4H, Platelet Count 455H, Mean Platelet Volume 9.1, Immature Granulocyte % (Auto) 1, Neutrophils (%) (Auto) 74, Lymphocytes (%) (Auto) 13, Monocytes (%) (Auto) 7, Eosinophils (%) (Auto) 5, Basophils (%) (Auto) 0, Neutrophils # (Auto) 13.2H, Lymphocytes # (Auto) 2.3, Monocytes # (Auto) 1.2H, Eosinophils # (Auto) 0.9H, Basophils # (Auto) 0.1, Immature Granulocyte # (Auto) 0.2H, Neutrophils % (Manual) 69, Lymphocytes % (Manual) 16, Monocytes % (Manual) 9, Eosinophils % (Manual) 6, Band Neutrophils 0, Anisocytosis SLIGHT, Elliptocytes SLIGHT, Sodium Level 126L, Potassium Level 3.6, Chloride Level 93L, Carbon Dioxide Level 25, Anion Gap 8, Blood Urea Nitrogen 9, Creatinine 0.72, Estimat Glomerular Filtration Rate 84, BUN/Creatinine Ratio 13, Glucose Level 107H, Calcium Level 9.3, Corrected Calcium 9.9, Total Bilirubin 0.3, Aspartate Amino Transf (AST/SGOT) 19, Alanine Aminotransferase (ALT/SGPT) 8, Alkaline Phosphatase 58, Total Protein 6.0L, Albumin 3.3, Basophils % (Manual) 0, Percent Immature Platelet Fraction 2.5, Microcytosis SLIGHT, Absolute Reticulocyte Count 74, Percent Reticulocyte Count 2.21, Lactate Dehydrogenase 215 Microbiology 11/24/22 Blood Culture - Preliminary, Resulted No growth Pending Labs Microbiology Date/Time Source Procedure Growth Status 11/24/22 23:15 Peripheral Lt Hand Blood Culture - Preliminary No growth Resulted 11/24/22 22:50 Peripheral Not Otherwise Specified Blood Culture - Preliminary No growth Resulted Laboratory Tests 11/24/22 22:32: White Blood Count 17.1, Red Blood Count 3.72, Hemoglobin 8.1, Hematocrit 26, Mean Corpuscular Volume 70, Mean Corpuscular Hemoglobin 22, Mean Corpuscular Hemoglobin Concent 31, Red Cell Distribution Width 16.5, Platelet Count 518, Mean Platelet Volume 8.8, Immature Granulocyte % (Auto) 1, Neutrophils (%) (Auto) 70, Lymphocytes (%) (Auto) 17, Monocytes (%) (Auto) 7, Eosinophils (%) (Auto) 5, Basophils (%) (Auto) 1, Neutrophils # (Auto) 12.0, Lymphocytes # (Auto) 2.8, Monocytes # (Auto) 1.2, Eosinophils # (Auto) 0.8, Basophils # (Auto) 0.1, Immature Granulocyte # (Auto) 0.2, Neutrophils % (Manual) 68, Lymphocytes % (Manual) 15, Monocytes % (Manual) 5, Eosinophils % (Manual) 6, Band Neutrophils 6, Polychromasia SLIGHT, Hypochromasia MODERATE, Anisocytosis MODERATE, Elliptocytes SLIGHT, Schistocytes SLIGHT, Sodium Level 124, Potassium Level 3.4, Chloride Level 91, Carbon Dioxide Level 22, Anion Gap 11, Blood Urea Nitrogen 10, Creatinine 0.81, Estimat Glomerular Filtration Rate 73, BUN/Creatinine Ratio 12, Glucose Level 117, Calcium Level 9.4, Corrected Calcium 9.7, Total Bilirubin 0.4, Aspartate Amino Transf (AST/SGOT) 11, Alanine Aminotransferase (ALT/SGPT) 8, Alkaline Phosphatase 60, Total Protein 6.5, Albumin 3.6 11/24/22 22:50: Lactic Acid Level 1.03 11/26/22 04:57: White Blood Count 18.5, Red Blood Count 3.52, Hemoglobin 7.6, Hematocrit 25, Mean Corpuscular Volume 71, Mean Corpuscular Hemoglobin 22, Mean Corpuscular Hemoglobin Concent 30, Red Cell Distribution Width 16.7, Platelet Count 470, Mean Platelet Volume 9.1, Immature Granulocyte % (Auto) 1, Neutrophils (%) (Auto) 74, Lymphocytes (%) (Auto) 12, Monocytes (%) (Auto) 7, Eosinophils (%) (Auto) 6, Basophils (%) (Auto) 0, Neutrophils # (Auto) 13.7, Lymphocytes # (Auto) 2.2, Monocytes # (Auto) 1.3, Eosinophils # (Auto) 1.1, Basophils # (Auto) 0.1, Immature Granulocyte # (Auto) 0.2, Sodium Level 125, Potassium Level 3.6, Chloride Level 93, Carbon Dioxide Level 20, Anion Gap 12, Blood Urea Nitrogen 11, Creatinine 0.83, Estimat Glomerular Filtration Rate 71, BUN/Creatinine Ratio 13, Glucose Level 125, Calcium Level 9.1, Corrected Calcium 9.5, Total Bilirubin 0.3, Aspartate Amino Transf (AST/SGOT) 15, Alanine Aminotransferase (ALT/SGPT) 8, Alkaline Phosphatase 56, Total Protein 6.1, Albumin 3.5 11/27/22 05:08: White Blood Count 17.9, Red Blood Count 3.36, Hemoglobin 7.3, Hematocrit 24, Mean Corpuscular Volume 71, Mean Corpuscular Hemoglobin 22, Mean Corpuscular Hemoglobin Concent 31, Red Cell Distribution Width 16.4, Platelet Count 455, Mean Platelet Volume 9.1, Immature Granulocyte % (Auto) 1, Neutrophils (%) (Auto) 74, Lymphocytes (%) (Auto) 13, Monocytes (%) (Auto) 7, Eosinophils (%) (Auto) 5, Basophils (%) (Auto) 0, Neutrophils # (Auto) 13.2, Lymphocytes # (Auto) 2.3, Monocytes # (Auto) 1.2, Eosinophils # (Auto) 0.9, Basophils # (Auto) 0.1, Immature Granulocyte # (Auto) 0.2, Neutrophils % (Manual) 69, Lymphocytes % (Manual) 16, Monocytes % (Manual) 9, Eosinophils % (Manual) 6, Band Neutrophils 0, Anisocytosis SLIGHT, Elliptocytes SLIGHT, Sodium Level 126, Potassium Level 3.6, Chloride Level 93, Carbon Dioxide Level 25, Anion Gap 8, Blood Urea Nitrogen 9, Creatinine 0.72, Estimat Glomerular Filtration Rate 84, BUN/Cre atinine Ratio 13, Glucose Level 107, Calcium Level 9.3, Corrected Calcium 9.9, Total Bilirubin 0.3, Aspartate Amino Transf (AST/SGOT) 19, Alanine Aminotransferase (ALT/SGPT) 8, Alkaline Phosphatase 58, Total Protein 6.0, Albumin 3.3, Basophils % (Manual) 0, Percent Immature Platelet Fraction 2.5, Microcytosis SLIGHT, Absolute Reticulocyte Count 74, Percent Reticulocyte Count 2.21, Lactate Dehydrogenase 215 Discharge Home Medications: Active Scripts Active Levofloxacin 500 Mg Tablet 500 Mg PO DAILY Iprat-Albut 0.5-3(2.5) mg/3 ml (Ipratropium/Albuterol Sulfate) 0.5 Mg-3 Mg (2.5 Mg Base)/3 Ml Ampul.neb 3 Ml INH RTQ4HR Reported Benzonatate 200 Mg Capsule 200 Mg PO Q8H PRN Mucus Relief (Guaifenesin) 600 Mg Tab.er.12h 600 Mg PO Q12H PRN Benadryl (Diphenhydramine HCl) 25 Mg Capsule 25-50 Mg PO HS PRN Benadryl (Diphenhydramine HCl) 25 Mg Capsule 25-50 Mg PO DAILY Quetiapine Fumarate 100 Mg Tablet 50 Mg PO 0800,1600,2200 TAKES OF A 100MG TAB Fexofenadine HCl 180 Mg Tablet 180 Mg PO DAILY Carvedilol 3.125 Mg Tablet 3.125 Mg PO BID WITH MEALS Breo Ellipta 100-25 Mcg INH (Fluticasone/Vilanterol) 100 Mcg-25 Mcg/Dose Blst.w.dev 1 Puff INH DAILY Amlodipine Besylate 5 Mg Tablet 5 Mg PO DAILY Melatonin 5 Mg Tablet 5 Mg PO HS K-Tab ER (Potassium Chloride) 10 Meq Tablet.er 10 Meq PO DAILY Furosemide 20 Mg Tablet 20 Mg PO DAILY Ativan (Lorazepam) 0.5 Mg Tablet 0.5 Mg PO BID Pravastatin Sodium 40 Mg Tablet 40 Mg PO HS Pantoprazole Sodium 40 Mg Tablet.dr 40 Mg PO DAILY Mirtazapine 15 Mg Tablet 15 Mg PO HS Oxybutynin Chloride ER (Oxybutynin Chloride) 10 Mg Tab.er.24 10 Mg PO DAILY Rivastigmine (Rivastigmine Tartrate) 1.5 Mg Capsule 1.5 Mg PO BID Fluticasone Propionate 50 Mcg/Actuation Silas.susp 1 Silas NSEACH BID Calcium 600 + Vit D 200 Tablet (Calcium Carbonate/Vitamin D3) 1 Each Tablet 1 Tab PO BID Tylenol Extra Strength (Acetaminophen) 500 Mg Tablet 1,000 Mg PO 1100,1600 TAKES 2 (500 MG) TABLETS Montelukast Sodium 10 Mg Tablet 10 Mg PO HS Instructions to patient/family Please see electronic discharge instructions given to patient. KORI CREWS DO Nov 27, 2022 11:29
[2022-11-27 12:18] LABS: ANISOCYTOSIS SLIGHT; BAND NEUTROPHILS 0 %; BASOPHILS % (MANUAL) 0 %; ELLIPT/OVALOCYTES SLIGHT; EOSINOPHILS % (MANUAL) 6 %; LYMPHOCYTES % (MANUAL) 16 %; MICROCYTOSIS SLIGHT; MONOCYTES % (MANUAL) 9 %; NEUTROPHILS % (MANUAL) 69 %
== END 2022-11-27 16:56 | disposition home or self-care (01) ==
LOC: EDUNIT# 22:26 → ER 22:27 → ICU 11-25 00:38 → INTOOBSV 11-25 00:38 → 4TH 11-25 14:22
PROVIDERS: ADMIT Internal Medicine; ATTEND Internal Medicine
DX: J96.01 Acute respiratory failure with hypoxia (principal); E87.1 Hypo-osmolality and hyponatremia; J18.9 Pneumonia, unspecified organism; R53.81 Other malaise; F03.90 Unspecified dementia, unspecified severity, without behavioral disturbance, psychotic disturbance, mood disturbance, and anxiety
CPT/HCPCS: 36415; 71045; 80053; 83605; 83615; 85007; 85025; 85027; 85045; 85055; 87040; 94640; 94760; 94761; 96361; 96366; 96372; 96375; 96376; G0378

== ENCOUNTER 2022-11-30 15:02 | Inpatient (IN) | payer MEDICARE, MEDICAID ==
[~2022-11-30] VITALS: Ht 162 cm; Wt 99.9 kg
[~2022-11-30 15:02] MED LIST changes: +FLUT1AER INH; +GUAI-977 PO; +IPRA3AMP31 INH; +LEVO-55 PO
--- NOTE | 2022-11-30 15:08 | ED Respiratory ---
General Chief Complaint: Respiratory Problems Stated Complaint: SOA Source: patient, EMS Exam Limitations: no limitations History of Present Illness Date Seen by Provider: Nov 30, 2022 Time Seen by Provider: 14:58 Initial Comments 82-year-old female presents via EMS for shortness of breath, reported hypotension. She was recently discharged from our facility on Thursday where she was admitted for pneumonia. She does wear as needed oxygen at home and she did not have oxygen on EMS arrival. Initial oxygen saturations were 92% on 2 to 3 L of oxygen via nasal cannula. Home health had reported systolic blood pressures in the 80s which was the reason for calling the ambulance. On arrival patient complains of shortness of breath and midsternal chest pressure feeling like something is sitting on her chest. She denies any fevers or chills. She complains of some constipation without having a bowel movement for couple of days but denies any abdominal pain nausea or vomiting. She has no changes in urine. All other systems reviewed and negative except documented per HPI. Voice recognition software was used to help create this chart Allergies and Home Medications Allergies Coded Allergies: Penicillins (Verified Allergy, Mild, 04/15/22) ketorolac (Verified Allergy, Mild, 04/15/22) morphine (Verified Allergy, Mild, pt has received Lortab in the past, 04/16/22) tetracycline (Verified Allergy, Mild, 04/15/22) paroxetine (Verified Allergy, Unknown, 04/15/22) Patient Home Medication List Home Medication List Reviewed: Yes Acetaminophen (Tylenol Extra Strength) 500 Mg Tablet, 1,000 MG PO 1100,1600, (Reported) Entered as Reported by: MARIELLA PALMA on 10/03/16 0753 Amlodipine Besylate (Amlodipine Besylate) 5 Mg Tablet, 5 MG PO DAILY, (Reported) Entered as Reported by: TERESA NAGEL on 11/25/22 1403 Benzonatate (Benzonatate) 200 Mg Capsule, 200 MG PO Q8H PRN for COUGH, (Reported) Entered as Reported by: TERESA NAGEL on 11/25/22 1403 Calcium Carbonate/Vitamin D3 (Calcium 600 + Vit D 200 Tablet) 1 Each Tablet, 1 TAB PO BID, (Reported) Entered as Reported by: BEAU MELGAR on 07/13/17 1603 Carvedilol (Carvedilol) 3.125 Mg Tablet, 3.125 MG PO BID WITH MEALS, (Reported) Entered as Reported by: TERESA NAGEL on 11/25/22 140 Diphenhydramine HCl (Benadryl) 25 Mg Capsule, 25-50 MG PO DAILY, (Reported) Entered as Reported by: TERESA NAGEL on 11/25/22 140 Diphenhydramine HCl (Benadryl) 25 Mg Capsule, 25-50 MG PO HS PRN for ALLERGY SYMPTOMS, (Reported) Entered as Reported by: TERESA NAGEL on 11/25/22 140 Fexofenadine HCl (Fexofenadine HCl) 180 Mg Tablet, 180 MG PO DAILY, (Reported) Entered as Reported by: TERESA NAGEL on 11/25/22 140 Fluticasone Propionate (Fluticasone Propionate) 50 Mcg/Actuation Antoine.susp, 1 SPRAY NSEACH BID, (Reported) Entered as Reported by: BEAU MELGAR on 07/13/17 160 Fluticasone/Vilanterol (Breo Ellipta 100-25 Mcg INH) 100 Mcg-25 Mcg/Dose Blst.w.dev, 1 PUFF INH DAILY, (Reported) Entered as Reported by: TERESA NAGEL on 11/25/22 140 Furosemide (Furosemide) 20 Mg Tablet, 20 MG PO DAILY, (Reported) Entered as Reported by: TERESA NAGEL on 04/15/22 164 Guaifenesin (Mucus Relief) 600 Mg Tab.er.12h, 600 MG PO Q12H PRN for CONGESTION, (Reported) Entered as Reported by: TERESA NAGEL on 11/25/22 140 Ipratropium/Albuterol Sulfate (Iprat-Albut 0.5-3(2.5) mg/3 ml) 0.5 Mg-3 Mg (2.5 Mg Base)/3 Ml Ampul.neb, 3 ML INH RTQ4HR Prescribed by: KORI CREWS on 11/27/22 112 Levofloxacin (Levofloxacin) 500 Mg Tablet, 500 MG PO DAILY Prescribed by: KORI CREWS on 11/27/22 112 Lorazepam (Ativan) 0.5 Mg Tablet, 0.5 MG PO BID, (Reported) Entered as Reported by: TERESA NAGEL on 04/15/22 164 Melatonin (Melatonin) 5 Mg Tablet, 5 MG PO HS, (Reported) Entered as Reported by: TERESA NAGEL on 04/15/22 164 Mirtazapine (Mirtazapine) 15 Mg Tablet, 15 MG PO HS, (Reported) Entered as Reported by: DENNY HANLEY on 07/06/21 0502 Montelukast Sodium (Montelukast Sodium) 10 Mg Tablet, 10 MG PO HS, (Reported) Entered as Reported by: MARIELLA PALMA on 10/03/16 0753 Oxybutynin Chloride (Oxybutynin Chloride ER) 10 Mg Tab.er.24, 10 MG PO DAILY, (Reported) Entered as Reported by: TERESA NAGEL on 07/18/19 1004 Pantoprazole Sodium (Pantoprazole Sodium) 40 Mg Tablet.dr, 40 MG PO DAILY, (Reported) Entered as Reported by: DENNY HANLEY on 07/06/21 050 Potassium Chloride (K-Tab ER) 10 Meq Tablet.er, 10 MEQ PO DAILY, (Reported) Entered as Reported by: TERESA NAGEL on 04/15/221640 Pravastatin Sodium (Pravastatin Sodium) 40 Mg Tablet, 40 MG PO HS, (Reported) Entered as Reported by: TERESA NAGEL on 04/15/22 164 Quetiapine Fumarate (Quetiapine Fumarate) 100 Mg Tablet, 50 MG PO 0800,1600,2200, (Reported) Entered as Reported by: TERESA NAGEL on 11/25/22 1403 Rivastigmine Tartrate (Rivastigmine) 1.5 Mg Capsule, 1.5 MG PO BID, (Reported) Entered as Reported by: KAYLEN JAMIL on 09/02/18 1106 Discontinued Medications Albuterol Sulfate (Albuterol Sulfate) 1.25 Mg/3 Ml Vial.neb, 3 ML NEB Q8H PRN for SHORTNESS OF BREATH, (Reported) Discontinued Reason: Duplicate Order Entered as Reported by: TERESA NAGEL on 04/15/22 164 Amlodipine Besylate (Amlodipine Besylate) 10 Mg Tablet, 10 MG PO DAILY Discontinued Reason: Duplicate Order Prescribed by: TRACEE FLETCHER on 04/23/22 1046 Azithromycin (Azithromycin) 250 Mg Tablet, 250 MG PO DAILY Prescribed by: NICOLE ZALDIVAR on 11/23/22 1514 Azithromycin (Azithromycin) 250 Mg Tablet, 250 MG PO DAILY Discontinued Reason: Duplicate Order Prescribed by: NICOLE ZALDIVAR on 11/23/22 1643 Azithromycin (Azithromycin) 250 Mg Tablet, 250 MG PO DAILY, (Reported) Entered as Reported by: TERESA NAGEL on 11/25/22 1403 Benzonatate (Benzonatate) 200 Mg Capsule, 200 MG PO TID PRN for COUGH, (Reported) Discontinued Reason: Duplicate Order Entered as Reported by: TERESA NAGEL on 04/15/22 1641 Carvedilol (Carvedilol) 6.25 Mg Tablet, 6.25 MG PO BID Discontinued Reason: Duplicate Order Prescribed by: TRACEE FLETCHER on 04/23/22 1046 Cefdinir (Cefdinir) 300 Mg Capsule, 300 MG PO BID Prescribed by: NICOLE ZALDIVAR on 11/23/22 1514 Cefdinir (Cefdinir) 300 Mg Capsule, 300 MG PO BID Discontinued Reason: Duplicate Order Prescribed by: NICOLE ZALDIVAR on 11/23/22 1643 Cefdinir (Cefdinir) 300 Mg Capsule, 300 MG PO BID, (Reported) Entered as Reported by: TERESA NAGEL on 11/25/22 1403 Ergocalciferol (Vitamin D2) (Vitamin D2) 1,250 Mcg (99878 Unit) Capsule, 1,250 MCG PO MON, (Reported) Discontinued Reason: Duplicate Order Entered as Reported by: TERESA NAGEL on 04/15/22 1641 Fexofenadine/Pseudoephedrine (Fexofenadine-Pse ER 180-240 Tb) 1 Each Tab.er.24h, 1 EACH PO DAILY, (Reported) Discontinued Reason: Duplicate Order Entered as Reported by: DENNY HANLEY on 07/06/21 0502 Fluticasone/Vilanterol (Breo Ellipta 200-25 Mcg INH) 200 Mcg-25 Mcg/Dose Blst.w.dev, 1 PUFF INH DAILY, (Reported) Discontinued Reason: Duplicate Order Entered as Reported by: TERESA NAGEL on 04/15/22 1641 Hydrocodone Bit/Acetaminophen (HYDROcodone/APAP 7.5/325 TAB) 1 Ea Tablet, 1 EA PO Q4H PRN for PAIN-MODERATE (5-7) Discontinued Reason: Duplicate Order Prescribed by: TRACEE FLETCHER on 04/23/22 1047 Hydrocodone/Acetaminophen (Hydrocodone-Acetamin 7.5-325) 7.5 Mg-325 Mg Tablet, 1 EACH PO Q4H PRN for prn pain Discontinued Reason: Duplicate Order Prescribed by: LES HUGHES on 04/16/22 1133 Loperamide HCl (Loperamide) 2 Mg Capsule, 2-4 MG PO UD PRN for DIARRHEA, (Reported) Discontinued Reason: Duplicate Order Entered as Reported by: TERESA NAGEL on 04/15/22 1641 Mupirocin (Mupirocin) 2 % Oint...g., 1 APPLIC TOP TID, (Reported) Discontinued Reason: Duplicate Order Entered as Reported by: TERESA NAGEL on 04/15/22 1641 Propylene Glycol/Peg 400 (Systane 0.3-0.4% Eye Drops) 0.3 %-0.4 % Drops, 1-2 DROP OU UD PRN for DRY EYES, (Reported) Discontinued Reason: Duplicate Order Entered as Reported by: TERESA NAGEL on 04/15/22 1641 Quetiapine Fumarate (Quetiapine Fumarate) 100 Mg Tablet, 100 MG PO DAILY, (Reported) Discontinued Reason: Duplicate Order Entered as Reported by: TERESA NAGEL on 05/01/20 1336 Quetiapine Fumarate (Quetiapine Fumarate) 100 Mg Tablet, 50 MG PO HS, (Reported) Discontinued Reason: Duplicate Order Entered as Reported by: TERESA NAGEL on 05/01/20 1336 Sodium Chloride (Sodium Chloride) 1 Gram Tab, 1 GM PO BID Discontinued Reason: Duplicate Order Prescribed by: TRACEE FLETCHER on 04/23/22 1046 Review of Systems Review of Systems Constitutional: see HPI Past Vhabqdd-Inphne-Epnawq Hx Patient Social History Tobacco Use?: No Use of E-Cig and/or Vaping dev: No Substance use?: No Alcohol Use?: No Immunizations Up To Date Tetanus Booster (TDap): Unknown PED Vaccines UTD: Yes First/Initial COVID19 Vaccinat: stated 'information is on file already" Second COVID19 Vaccination Timmy: stated 'information is on file already" Third COVID19 Vaccination Date: stated 'information is on file already" Seasonal Allergies Seasonal Allergies: No Past Medical History Surgery/Hospitalization HX: FX RT ANKLE, RT SHOULDER, HYST, GALLBLADDER, NASAL SURGERY, EYE SURGERY Surgeries: Yes Abdominal, Appendectomy, Eye Surgery, Gallbladder, 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, Joint Replacement, Orthopedic, Pacemaker Respiratory: Yes COPD Currently Using CPAP: No Currently Using BIPAP: No Cardiac: Yes (Congestive heart failure with EF of 35 percent) Atrial Fibrillation, High Cholesterol, Hypertension Neurological: Yes Dementia 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 Disorders: Yes Female 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 Disorders: Denies, 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, 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 Sexually Transmitted Disease: No HIV/AIDS: No Genitourinary: No Gastrointestinal: Yes (BLEEDING ULCER X 3; PERFORATED ULCER 2006; 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) Gastrointestinal Bleed, Chronic Diarrhea, Polyps, Ulcer, Irritable Bowel Musculoskeletal: Yes Degenerate Disk Disease, Arthritis, Chronic Back Pain, Fractures Endocrine: No HEENT: No Cataract Loss of Vision: Denies Hearing Impairment: Hard of Hearing Cancer: No Psychosocial: Yes Anxiety Integumentary: No Blood Disorders: Yes (BILATERAL P.E.'S 04/2018) Adverse Reaction/Blood Tranf: No Family Medical History Blood clots (sister had a blood clot in the brain which caused her  in 2010) Physical Exam Vital Signs - First Documented 11/30/22 11/30/22 15:02 15:27 Pulse 77 Resp 18 B/P (MAP) 117/74 (88) Pulse Ox 95 O2 Delivery Nasal Cannula O2 Flow Rate 2.00 FiO2 97 Capillary Refill : Height: 5'3.00" Weight: 150lbs. 0.0oz. 68.887973zh; 44.06 BMI Method:Stated General Appearance: WD/WN, no apparent distress HEENT: normal ENT inspection, pharynx normal Neck: non-tender, full range of motion, supple Respiratory: chest non-tender, other (Expiratory wheezing bilaterally. She speaks in short sentences secondary to dyspnea. She has intermittent use of accessory muscles with mild respiratory distress.) Cardiovascular: regular rate, rhythm, no murmur Gastrointestinal: normal bowel sounds, non tender, soft, no organomegaly Neurologic/Psychiatric: alert, normal mood/affect, oriented x 3 Skin: normal color, warm/dry Focused Exam Lactate Level 11/30/22 15:30: Lactic Acid Level Laboratory Tests Test 11/30/22 15:30 Procedures/Interventions Patient Education: Explained Benefits, Explained Risks, Pt. Ack. Understanding Breath Sounds per Auscultation: Clear Heart Sounds per Auscultation: Regular Airway Exam: Mouth opens >2 fingers Sedation Adminstration Time: 0845 Re-examination Time: 0900 Progress/Results/Core Measures Suspected Sepsis SIRS Temperature: Pulse: Respiratory Rate: Laboratory Tests 11/30/22 15:30: White Blood Count 23.2H Blood Pressure / Mean: 11/30/22 15:30: Laboratory Tests 11/30/22 15:17: Creatinine 0.77, Total Bilirubin 0.3 11/30/22 15:30: Platelet Count 521H Results/Orders Lab Results Laboratory Tests Test 11/30/22 15:17 11/30/22 15:30 Range/Units Sodium Level 122 *L 135-145 MMOL/L Potassium Level 5.3 H 3.6-5.0 MMOL/L Chloride Level 90 L 98-107 MMOL/L Carbon Dioxide Level 21 21-32 MMOL/L Anion Gap 11 5-14 MMOL/L Blood Urea Nitrogen 9 7-18 MG/DL Creatinine 0.77 0.60-1.30 MG/DL Estimat Glomerular Filtration Rate 78 BUN/Creatinine Ratio 12 Glucose Level 129 H 70-105 MG/DL Calcium Level 8.9 8.5-10.1 MG/DL Corrected Calcium 9.4 8.5-10.1 MG/DL Total Bilirubin 0.3 0.1-1.0 MG/DL Aspartate Amino Transf (AST/SGOT) 31 5-34 U/L Alanine Aminotransferase (ALT/SGPT) 10 0-55 U/L Alkaline Phosphatase 67 40-136 U/L Troponin I 1.237 *H <0.028 NG/ML Total Protein 6.3 L 6.4-8.2 GM/DL Albumin 3.4 3.2-4.5 GM/DL White Blood Count 23.2 H 4.3-11.0 10^3/uL Red Blood Count 3.54 L 3.80-5.11 10^6/uL Hemoglobin 7.8 L 11.5-16.0 g/dL Hematocrit 25 L 35-52 % Mean Corpuscular Volume 71 L 80-99 fL Mean Corpuscular Hemoglobin 22 L 25-34 pg Mean Corpuscular Hemoglobin Concent 31 L 32-36 g/dL Red Cell Distribution Width 16.4 H 10.0-14.5 % Platelet Count 521 H 130-400 10^3/uL Mean Platelet Volume 9.0 9.0-12.2 fL Immature Granulocyte % (Auto) 1 % Neutrophils (%) (Auto) 83 H 42-75 % Lymphocytes (%) (Auto) 7 L 12-44 % Monocytes (%) (Auto) 7 0-12 % Eosinophils (%) (Auto) 2 0-10 % Basophils (%) (Auto) 0 0-10 % Neutrophils # (Auto) 19.2 H 1.8-7.8 10^3/uL Lymphocytes # (Auto) 1.6 1.0-4.0 10^3/uL Monocytes # (Auto) 1.6 H 0.0-1.0 10^3/uL Eosinophils # (Auto) 0.4 H 0.0-0.3 10^3/uL Basophils # (Auto) 0.1 0.0-0.1 10^3/uL Immature Granulocyte # (Auto) 0.3 H 0.0-0.1 10^3/uL My Orders Orders - ASA MELARA DO Cbc With Automated Diff (11/30/22 15:05) Comprehensive Metabolic Panel (11/30/22 15:05) Blood Culture (11/30/22 15:05) Urinalysis (11/30/22 15:05) Urine Culture (11/30/22 15:05) Chest 1 View, Ap/Pa Only (11/30/22 15:05) Ed Iv/Invasive Line Start (11/30/22 15:05) Vital Signs Adult Sepsis Patie Q15M (11/30/22 15:05) O2 (11/30/22 15:05) Remove Rings In Anticipation O (11/30/22 15:05) Lactic Acid Analyzer (11/30/22 15:05) Troponin I [place] (11/30/22 15:05) Covid 19 Inhouse Test (11/30/22 15:05) Ekg Tracing (11/30/22 15:08) Albuterol/Ipra Inhalation Soln (Duoneb I (11/30/22 15:15) Svn Small Volume Nebulizer (11/30/22 15:12) Piperacillin Sodium/Tazobactam (Zosyn Vi (11/30/22 15:45) Vancomycin Injection (Vancomycin Injecti (11/30/22 15:45) Manual Differential (11/30/22 15:30) Medications Given in ED Current Medications Medications Dose Ordered Sig/Lee Route Start Time Stop Time Status Last Admin Dose Admin Albuterol/ Ipratropium 3 ml ONCE ONCE INH 11/30/22 15:15 11/30/22 15:16 DC 11/30/22 15:25 3 ML Vital Signs/I&O 11/30/22 11/30/22 11/30/22 15:02 15:22 15:27 Pulse 77 Resp 18 B/P (MAP) 117/74 (88) Pulse Ox 95 O2 Delivery Nasal Cannula Nasal Cannula Nasal Cannula O2 Flow Rate 2.00 2.00 FiO2 97 Capillary Refill : ECG Comment Ventricular paced rhythm at 63 bpm. Critical Care Note Critical Care Total Time (minutes) 60 Departure Communication (Admissions) Patient has mild increased work of breathing with some wheezing. Wheezing improved with a DuoNeb she does have conversational dyspnea remaining has mild increased work of breathing. No respiratory distress. This x-ray shows worsening pneumonia in the right base. She also has some pretty significant hyponatremia. Looks like this may be a chronic issue for her but certainly her sodium levels are better upon discharge last admission. Start gentle IV hydration 75 cc/h normal saline. Have also resolved sending vancomycin for pneumonia given that she was recently in the hospital. 1540: Spoke to Dr ortiz. He would like to check with Dr Crews to see if she wants to admit her as she was the provider taking care of her last admit. 1550: Dr Ortiz called back and accepts the patient in admission. 1555: Spoke to Dr العراقي, requests ASA, plavix, lovenox and echo in the AM. Impression Primary Impression: Hyponatremia Additional Impressions: CAP (community acquired pneumonia) Qualified Codes: J18.9 - Pneumonia, unspecified organism Generalized weakness Elevated troponin Disposition: ADMITTED INPATIENT Condition: Stable Departure-Patient Inst. Referrals: BRAD HDEZ MD (PCP/Family) Primary Care Physician ASA MELARA DO Nov 30, 2022 15:08
[2022-11-30] MEDS ORDERED: RT-ALBUTEROL/IPRATROPIUM 3 ML (DUONEB) VIAL INH ONE (15:15)
[2022-11-30 15:29] LABS: ALBUMIN 3.4 GM/DL (3.2-4.5); POTASSIUM 5.3 MMOL/L (3.6-5.0)
[2022-11-30 15:31] LABS: CALCIUM 8.9 MG/DL (8.5-10.1)
[2022-11-30 15:32] LABS: TOTAL PROTEIN 6.3 GM/DL (6.4-8.2)
[2022-11-30 15:34] LABS: BILIRUBIN,TOTAL 0.3 MG/DL (0.1-1.0)
[2022-11-30 15:35] LABS: CREATININE SERUM 0.77 MG/DL (0.60-1.30)
--- NOTE | 2022-11-30 15:39 | Diagnostic Imaging Report ---
INDICATION: Dyspnea and chest pain. COMPARISON: 11/26/2022. DISCUSSION: Single portable upright view of the chest was obtained. Cardiomegaly is stable. Central venous congestion is again noted. No eugenio pulmonary edema. No obvious pleural fluid. Some new infiltrate within the right lung base could be seen with atelectasis or pneumonia. No pneumothorax. Left-sided pacemaker is stable. No osseous abnormality. IMPRESSION: 1. Stable cardiomegaly with central venous congestion. 2. New infiltrate within the right lung base, likely atelectasis or pneumonia. Dictated by: Dictated on workstation # [id number]
[2022-11-30 15:41] LABS: BASOPHILS # (AUTO) 0.1 10^3/uL (0.0-0.1); BASOPHILS % (AUTO) 0 % (0-10); EOSINOPHILS # (AUTO) 0.4 10^3/uL (0.0-0.3); EOSINOPHILS % (AUTO) 2 % (0-10); HEMATOCRIT 25 % (35-52); HEMOGLOBIN 7.8 g/dL (11.5-16.0); LYMPHOCYTES # (AUTO) 1.6 10^3/uL (1.0-4.0); LYMPHOCYTES % (AUTO) 7 % (12-44); MEAN CORPUSCULAR HEMOGLOBIN 22 pg (25-34); MEAN CORPUSCULAR HGB CONC 31 g/dL (32-36); MEAN CORPUSCULAR VOLUME 71 fL (80-99); MONOCYTES # (AUTO) 1.6 10^3/uL (0.0-1.0); MONOCYTES % (AUTO) 7 % (0-12); NEUTROPHILS # (AUTO) 19.2 10^3/uL (1.8-7.8); NEUTROPHILS % (AUTO) 83 % (42-75); PLATELET COUNT 521 10^3/uL (130-400); WHITE BLOOD COUNT 23.2 10^3/uL (4.3-11.0)
[2022-11-30] MEDS ORDERED: VANCOMYCIN INJECTION 1,000 MG in NS (IVPB) 250 ML IV ONE (15:45)
[2022-11-30] MEDS ORDERED: PIPERACILLIN SODIUM/TAZOBACTAM 4.5 GM in NS (IVPB) 100 ML IV ONE (15:45)
[2022-11-30] MEDS ORDERED: CLOPIDOGREL 300 MG (PLAVIX) TABLET PO ONE (16:00)
[2022-11-30] MEDS ORDERED: ASPIRIN 81 MG CHEW (CHILDREN'S ASA) PO ONE (16:00)
[2022-11-30 16:05] LABS: ANISOCYTOSIS SLIGHT; BAND NEUTROPHILS 0 %; BASOPHILS % (MANUAL) 0 %; EOSINOPHILS % (MANUAL) 0 %; HYPOCHROMASIA SLIGHT; LYMPHOCYTES % (MANUAL) 8 %; MICROCYTOSIS SLIGHT; MONOCYTES % (MANUAL) 6 %; NEUTROPHILS % (MANUAL) 86 %; POLYCHROMASIA SLIGHT
[2022-11-30] MEDS ORDERED: MILK OF MAGNESIA 400 MG/5 ML 30 ML UDC PO PRN (16:45)
[2022-11-30] MEDS ORDERED: PIPERACILLIN SODIUM/TAZOBACTAM 4.5 GM in NS (IVPB) 100 ML IV SCH (16:45)
[2022-11-30] MEDS ORDERED: VANCOMYCIN INJECTION 0.1 MG in NS (IVPB) 250 ML IV SCH (16:45)
[2022-11-30] MEDS ORDERED: ANTACID SUSP 30 ML UDC (MYLANTA) PO PRN (16:45)
[2022-11-30] MEDS ORDERED: MELATONIN 3 MG TABLET PO PRN (16:45)
[2022-11-30] MEDS ORDERED: ONDANSETRON 4 MG (ZOFRAN) ORAL DISSOLVE TAB PO PRN (16:45)
[2022-11-30] MEDS ORDERED: polyethylene glycoL POWDER 17 GM (MIRALAX) PACK PO PRN (16:45)
[2022-11-30] MEDS ORDERED: BISACODYL 10 MG SUPP (DULCOLAX) PR PRN (16:45)
[2022-11-30] MEDS ORDERED: LACTULOSE SYRUP 10GM/15ML (ENULOSE) 30ML UDC PO PRN (16:45)
[2022-11-30] MEDS ORDERED: NS IV 500 ML 500 ML IV PRN (16:45)
[2022-11-30] MEDS ORDERED: CALCIUM CARBONATE 500 MG (TUMS) TAB.CHEW PO PRN (16:45)
[2022-11-30] MEDS ORDERED: ONDANSETRON 4 MG/2 ML (SDV) Z0FRAN IV PRN (16:45)
[2022-11-30 16:58] VITALS: BP 128/119
[2022-11-30] MEDS: ENOXAPARIN 100 MG/1 ML (LOVENOX) SYR SC SCH (17:40)
[2022-11-30] MEDS ORDERED: VANCOMYCIN 1,750 MG/NS 500 ML IVPB IV NR ×2 (18:00)
[2022-11-30 20:00] VITALS: BP 119/73
[2022-11-30] MEDS: SENNOSIDES 8.6 MG (SENOKOT) TAB PO SCH (20:46)
[2022-11-30] MEDS: DOCUSATE SODIUM 100 MG (COLACE) CAP PO SCH (20:46)
[2022-11-30] MEDS: PIPERACILLIN SODIUM/TAZOBACTAM 4.5 GM in NS (IVPB) 100 ML IV SCH (20:55)
[2022-11-30] MEDS: ACETAMINOPHEN 325 MG TABLET PO PRN (20:56)
[2022-11-30] MEDS ORDERED: LORazepam 0.5 MG (ATIVAN) TABLET PO PRN (23:15)
[2022-11-30] MEDS ORDERED: LORazepam 0.5 MG (ATIVAN) TABLET ONE (23:17)
[2022-12-01] VITALS (8 sets, daily range): BP systolic 123–167; BP diastolic 62–88
[2022-12-01 04:05] LABS: BASOPHILS # (AUTO) 0.1 10^3/uL (0.0-0.1); BASOPHILS % (AUTO) 0 % (0-10); EOSINOPHILS # (AUTO) 0.6 10^3/uL (0.0-0.3); EOSINOPHILS % (AUTO) 3 % (0-10); HEMATOCRIT 24 % (35-52); HEMOGLOBIN 7.3 g/dL (11.5-16.0); LYMPHOCYTES # (AUTO) 2.4 10^3/uL (1.0-4.0); LYMPHOCYTES % (AUTO) 11 % (12-44); MEAN CORPUSCULAR HEMOGLOBIN 22 pg (25-34); MEAN CORPUSCULAR HGB CONC 31 g/dL (32-36); MEAN CORPUSCULAR VOLUME 71 fL (80-99); MEAN PLATELET VOLUME 8.9 fL (9.0-12.2); MONOCYTES # (AUTO) 1.4 10^3/uL (0.0-1.0); MONOCYTES % (AUTO) 6 % (0-12); NEUTROPHILS # (AUTO) 17.2 10^3/uL (1.8-7.8); NEUTROPHILS % (AUTO) 79 % (42-75); PLATELET COUNT 473 10^3/uL (130-400); WHITE BLOOD COUNT 21.8 10^3/uL (4.3-11.0)
[2022-12-01 04:19] LABS: ALBUMIN 3.4 GM/DL (3.2-4.5); BILIRUBIN,TOTAL 0.4 MG/DL (0.1-1.0); CALCIUM 8.9 MG/DL (8.5-10.1); CREATININE SERUM 0.79 MG/DL (0.60-1.30); POTASSIUM 3.8 MMOL/L (3.6-5.0)
[2022-12-01] MEDS: POTASSIUM CL 10MEQ/50ML IVPB 50 ML IV SCH (05:53)
[2022-12-01] MEDS: KCL 20 MEQ TAB (K-DUR) PO SCH (05:53)
[2022-12-01] MEDS: MAGNESIUM 1 GM/100 ML IVPB 100 ML IV SCH (05:53)
[2022-12-01] MEDS: PIPERACILLIN SODIUM/TAZOBACTAM 4.5 GM in NS (IVPB) 100 ML IV SCH ×3 (05:56→21:37)
[2022-12-01] MEDS: VANCOMYCIN 1 GM/NS 250 ML IVPB IV SCH ×4 (05:57→19:32)
[2022-12-01] MEDS: ENOXAPARIN 100 MG/1 ML (LOVENOX) SYR SC SCH ×2 (05:57→19:02)
[2022-12-01] MEDS: CLOPIDOGREL 75 MG (PLAVIX) TABLET PO SCH (08:20)
[2022-12-01] MEDS: DOCUSATE SODIUM 100 MG (COLACE) CAP PO SCH ×2 (08:20→21:35)
[2022-12-01] MEDS: ASPIRIN 81 MG CHEW (CHILDREN'S ASA) PO SCH (08:20)
[2022-12-01] MEDS: SENNOSIDES 8.6 MG (SENOKOT) TAB PO SCH ×2 (08:20→21:36)
[2022-12-01] MEDS ORDERED: RT-ALBUTEROL/IPRATROPIUM 3 ML (DUONEB) VIAL INH PRN (09:00)
--- NOTE | 2022-12-01 10:38 | History & Physical-Hospitalist ---
History of Present Illness HPI/Chief Complaint Pt is an 82yoCF with a PMH of recent admission for pneumonia, HTN, HLD, COPD, AFib, PE, GI bleed who presented to the ER due to SOB. She was discharged from the hospital on 11/28 after being treated for pneumonia, She was found to have sats of 92% by home health with some softer blood pressures by home health. She was found to have persistent pneumonia and elevated troponin. She was admitted for further management. This morning she reports she is feeling better and breathing better. Discussed her lab findings and need for further work up of her heart. Source: patient Date Seen 12/01/22 Time Seen by a Provider: 10:38 Attending Physician Romeo Kent MD PCP Admitting Physician: Norma Ortiz MD Attending Physician: Norma Ortiz MD Referring Physician Date of Admission Nov 30, 2022 at 16:36 Home Medications & Allergies Home Medications Reviewed patient Home Medication Reconciliation performed by pharmacy medication reconciliations injection molding process technician and/or nursing. Patients Allergies have been reviewed. Allergies Allergies Coded Allergies Penicillins (Verified Allergy, Mild, 04/15/22) ketorolac (Verified Allergy, Mild, 04/15/22) morphine (Verified Allergy, Mild, pt has received Lortab in the past, 04/16/22) tetracycline (Verified Allergy, Mild, 04/15/22) paroxetine (Verified Allergy, Unknown, 04/15/22) Past Mkggvhj-Bnefdk-Zzebsw Hx Patient Social History Employed/Student: retired Tobacco Use?: No Use of E-Cig and/or Vaping dev: No Substance use?: No Alcohol Use?: No Pt feels they are or have been: No Immunizations Up To Date Date of Influenza Vaccine: Mar 27, 2020 First/Initial COVID19 Vaccinat: stated 'information is on file already" Second COVID19 Vaccination Timmy: stated 'information is on file already" Tetanus Booster (TDap): Unknown Hepatitis A: No Hepatitis B: No PED Vaccines UTD: Yes Date of Pneumonia Vaccine: Feb 10, 2015 Seasonal Allergies Seasonal Allergies: No Current Status Advance Directives: No Communicates: Verbally Primary Language: Dutch Preferred Spoken Language: Dutch Is interpretation needed?: No Implanted or Applied Medical D: Orthopedic hardware Past Medical History Surgeries: Abdominal, Appendectomy, Eye Surgery, Gallbladder, 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, Joint Replacement, Orthopedic, Pacemaker COPD Currently Using CPAP: No Currently Using BIPAP: No Atrial Fibrillation, High Cholesterol, Hypertension 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, 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 Sexually Transmitted Disease: No HIV/AIDS: No Gastrointestinal Bleed, Chronic Diarrhea, Polyps, Ulcer, Irritable Bowel Degenerate Disk Disease, Arthritis, Chronic Back Pain, Fractures Cataract Loss of Vision: Denies Hearing Impairment: Hard of Hearing Anxiety Blood Disorders: Yes (BILATERAL P.E.'S 04/2018) Adverse Reaction/Blood Tranf: No Family Medical History Reviewed Nursing Family Hx Blood clots (sister had a blood clot in the brain which caused her  in 2010) Review of Systems Constitutional: see HPI Physical Exam Physical Exam Vital Signs Vital Signs - First Documented 11/30/22 11/30/22 11/30/22 15:02 15:27 16:25 Temp 36.3 Pulse 77 Resp 18 B/P (MAP) 117/74 (88) Pulse Ox 95 O2 Delivery Nasal Cannula O2 Flow Rate 2.00 FiO2 97 Capillary Refill : Less Than 3 Seconds Height, Weight, BMI Height: 5'3.00" Weight: 150lbs. 0.0oz. 68.673410st; 37.60 BMI Method:Stated General Appearance: No Apparent Distress, Chronically ill Respiratory: Lungs Clear, No Respiratory Distress Cardiovascular: Regular Rate, Rhythm, No Murmur Gastrointestinal: Normal Bowel Sounds, Soft Extremity: No Calf Tenderness, No Pedal Edema Neurologic/Psychiatric: Alert, Oriented x3, Normal Mood/Affect Results Results/Procedures Labs Laboratory Tests 11/30/22 15:17 11/30/22 15:30 11/30/22 21:09 12/01/22 03:52 12/02/22 05:34 Patient resulted labs reviewed. Imaging: Reviewed Imaging Report Imaging [facility] [place] NAME: AILEEN DUMONT Ruddy [facility] REC#: [id number] PT STATUS: ADM IN : 1940 PHYSICIAN: ASA MELARA DO ADMIT DATE: 11/30/22/[facility] Signed Date of Exam:11/30/22 CHEST 1 VIEW, AP/PA ONLY INDICATION: Dyspnea and chest pain. COMPARISON: 11/26/2022. DISCUSSION: Single portable upright view of the chest was obtained. Cardiomegaly is stable. Central venous congestion is again noted. No eugenio pulmonary edema. No obvious pleural fluid. Some new infiltrate within the right lung base could be seen with atelectasis or pneumonia. No pneumothorax. Left-sided pacemaker is stable. No osseous abnormality. IMPRESSION: 1. Stable cardiomegaly with central venous congestion. 2. New infiltrate within the right lung base, likely atelectasis or pneumonia. Dictated by: Dictated on workstation # [id number] Dict: 11/30/22 1536 Trans: 11/30/22 1650 [facility] [id number] Interpreted by: ESTEFANIA FISCHER MD Electronically signed by: ESTEFANIA FISCHER MD 11/30/22 1029 Assessment/Plan Admission Diagnosis Recurrent Pneumonia Admission Status: Inpatient Order (span 2 midnights) Reason for Inpatient Admission: see below Assessment and Plan Recurrent Pneumonia Acute on Chronic Respiratory Failure Continue IV abx Await cultures NSTEMI HTN A fib Cardiology consulted, appreciate recs Dr Logan recommended Lovenox, ASA, Plavix Monitor on Telemetry Hyponatremia Na 124 Baseline around 128-130 Fluid restriction Likely acutely worsened by SIADH from pneumonia trend Chronic anemia h/o GIB Baseline around 9 Trend Low threshold for transfusion TRACEE FLETCHER MD Dec 01, 2022 10:38
[2022-12-01] MEDS: RT-ALBUTEROL/IPRATROPIUM 3 ML (DUONEB) VIAL INH SCH ×4 (12:37→22:24)
[2022-12-01] MEDS ORDERED: IPRA3AMP31 IH (14:08)
[2022-12-01] MEDS ORDERED: LEVO-55 PO (14:08)
[2022-12-01] MEDS ORDERED: guaiFENesin (MUCINEX) 600 MG TAB PO PRN (16:15)
[2022-12-01] MEDS ORDERED: BENZONATATE 100 MG (TESSALON) CAPSULE PO PRN (17:00)
[2022-12-01] MEDS: MELATONIN 10 MG TABLET PO SCH (21:35)
[2022-12-01] MEDS: AtorvaSTATin TABLET 10 MG TABLET PO SCH (21:35)
[2022-12-01] MEDS: FLUTICASONE NASAL SPRAY (FLONASE) 16 GM BTL NS SCH (21:35)
[2022-12-01] MEDS: MIRTAZAPINE 15 MG (REMERON) TAB PO SCH (21:35)
[2022-12-01] MEDS: MONTELUKAST 10 MG (SINGULAIR) TAB PO SCH (21:35)
[2022-12-01] MEDS: OXYBUTYNIN (DITROPAN) 5 MG TAB PO SCH (21:36)
[2022-12-01] MEDS: QUEtiapine 100 MG (SEROquel) TAB IMMEDIATE RELEASE PO SCH (21:36)
[2022-12-01] MEDS: LORazepam 0.5 MG (ATIVAN) TABLET PO SCH (21:36)
[2022-12-01] MEDS: RIVASTIGMINE 1.5 MG (EXELON) CAP PO SCH (21:36)
[2022-12-02] VITALS (10 sets, daily range): BP systolic 114–186; BP diastolic 53–87
[2022-12-02] MEDS: RT-ALBUTEROL/IPRATROPIUM 3 ML (DUONEB) VIAL INH SCH ×6 (02:45→22:45)
[2022-12-02] MEDS ORDERED: TROUGH ORDER-PHARMACY XX ONE (05:00)
[2022-12-02] MEDS ORDERED: LORazepam INJ 2 MG/ML (ATIVAN) VIAL IVP PRN (05:15)
[2022-12-02 05:42] LABS: BASOPHILS # (AUTO) 0.1 10^3/uL (0.0-0.1); BASOPHILS % (AUTO) 0 % (0-10); EOSINOPHILS # (AUTO) 0.3 10^3/uL (0.0-0.3); EOSINOPHILS % (AUTO) 1 % (0-10); HEMATOCRIT 25 % (35-52); HEMOGLOBIN 7.6 g/dL (11.5-16.0); LYMPHOCYTES # (AUTO) 2.2 10^3/uL (1.0-4.0); LYMPHOCYTES % (AUTO) 11 % (12-44); MEAN CORPUSCULAR HEMOGLOBIN 22 pg (25-34); MEAN CORPUSCULAR HGB CONC 31 g/dL (32-36); MEAN CORPUSCULAR VOLUME 71 fL (80-99); MEAN PLATELET VOLUME 9.1 fL (9.0-12.2); MONOCYTES # (AUTO) 0.9 10^3/uL (0.0-1.0); MONOCYTES % (AUTO) 4 % (0-12); NEUTROPHILS # (AUTO) 17.1 10^3/uL (1.8-7.8); NEUTROPHILS % (AUTO) 82 % (42-75); PLATELET COUNT 564 10^3/uL (130-400)
[2022-12-02 05:46] LABS: ABG OXYGEN SATURATION 95 % (94-100); ABG PCO2 38 MMHG (35-45); ABG PH 7.42 (7.37-7.43); ABG PO2 67 MMHG (79-93); ABG TCO2 25.3 MMOL/L (21.0-31.0)
[2022-12-02 05:47] LABS: ALLENS TEST YES-POS; INSPIRED O2 3L; PATIENT TEMP 36.2; VENTILATOR NO
[2022-12-02 05:58] LABS: ALBUMIN 3.5 GM/DL (3.2-4.5); BILIRUBIN,TOTAL 0.5 MG/DL (0.1-1.0); CALCIUM 8.8 MG/DL (8.5-10.1); CREATININE SERUM 0.78 MG/DL (0.60-1.30); POTASSIUM 3.4 MMOL/L (3.6-5.0); TOTAL PROTEIN 6.4 GM/DL (6.4-8.2)
[2022-12-02 06:05] LABS: VANCOMYCIN,TROUGH 17.3 UG/ML (10.0-20.0)
[2022-12-02] MEDS: PIPERACILLIN SODIUM/TAZOBACTAM 4.5 GM in NS (IVPB) 100 ML IV SCH ×3 (06:46→22:19)
[2022-12-02] MEDS: KCL 20 MEQ TAB (K-DUR) PO SCH (06:46)
[2022-12-02] MEDS: POTASSIUM CL 10MEQ/50ML IVPB 50 ML IV SCH (06:47)
[2022-12-02] MEDS: MAGNESIUM 1 GM/100 ML IVPB 100 ML IV SCH (07:43)
[2022-12-02] MEDS: ENOXAPARIN 100 MG/1 ML (LOVENOX) SYR SC SCH ×2 (07:44→17:48)
[2022-12-02] MEDS: VANCOMYCIN 750 MG/NS 250 ML IVPB IV SCH ×4 (08:34→19:57)
[2022-12-02] MEDS: FLUTICASONE NASAL SPRAY (FLONASE) 16 GM BTL NS SCH ×2 (08:56→22:17)
[2022-12-02] MEDS: amLODIPine 5 MG (NORVASC) TAB PO SCH ×2 (08:56→09:59)
--- NOTE | 2022-12-02 09:20 | Physical Therapy Progress Note ---
Therapy Progress Note Patient currently sedated. PT will attempt in p.m. if time permits. INDIRA PEREZ PT Dec 02, 2022 09:20
--- NOTE | 2022-12-02 09:22 | Occ Therapy Progress Note ---
Therapy Progress Note Patient sedated, RN request OT return next available opportunity PARVIZ HERRERA OT Dec 02, 2022 09:22
[2022-12-02] MEDS: FLUTICASONE/VILANTEROL 100 MCG 14'S (BREO) IH SCH (09:35)
[2022-12-02] MEDS: FUROSEMIDE 20 MG (LASIX) TAB PO SCH (09:45)
[2022-12-02] MEDS: PANTOPRAZOLE 40 MG (PROTONIX) TAB PO SCH (09:45)
[2022-12-02] MEDS: ASPIRIN 81 MG CHEW (CHILDREN'S ASA) PO SCH (09:45)
[2022-12-02] MEDS: LORazepam 0.5 MG (ATIVAN) TABLET PO SCH ×2 (09:45→22:18)
[2022-12-02] MEDS: CLOPIDOGREL 75 MG (PLAVIX) TABLET PO SCH (09:46)
[2022-12-02] MEDS: OXYBUTYNIN (DITROPAN) 5 MG TAB PO SCH ×2 (09:46→22:18)
[2022-12-02] MEDS: LORATADINE (CLARITIN) 10 MG TAB PO SCH (09:46)
[2022-12-02] MEDS: QUEtiapine 100 MG (SEROquel) TAB IMMEDIATE RELEASE PO SCH ×3 (09:46→22:18)
[2022-12-02] MEDS: DOCUSATE SODIUM 100 MG (COLACE) CAP PO SCH ×2 (09:48→22:18)
[2022-12-02] MEDS: RIVASTIGMINE 1.5 MG (EXELON) CAP PO SCH ×2 (09:48→22:18)
[2022-12-02] MEDS: SENNOSIDES 8.6 MG (SENOKOT) TAB PO SCH ×2 (09:48→22:18)
[2022-12-02] MEDS: inSUlin ASPART (NovoLOG) 1 UNIT/0.01 ML (CHARGE PER UNIT) SC SCH ×3 (11:29→22:19)
--- NOTE | 2022-12-02 13:20 | Physical Therapy Progress Note ---
Therapy Progress Note Patient remains too sedated and unable to safely participate with skilled therapy on this date. INDIRA PEREZ PT Dec 02, 2022 13:20
--- NOTE | 2022-12-02 13:55 | Progress Note - Hospitalist ---
Subjective HPI/CC On Admission Date Seen by Provider: Dec 02, 2022 Pt is an 82yoCF with a PMH of recent admission for pneumonia, HTN, HLD, COPD, AFib, PE, GI bleed who presented to the ER due to SOB. She was discharged from the hospital on 11/28 after being treated for pneumonia, She was found to have sats of 92% by home health with some softer blood pressures by home health. She was found to have persistent pneumonia and elevated troponin. She was admitted for further management. This morning she reports she is feeling better and breathing better. Discussed her lab findings and need for further work up of her heart. Subjective/Events-last exam Pt is sleeping soundly. Received ativan not long before though. RN reports she got tachypneic overnight and they placed her breathly on BiPAP and then gave ativan and she has been sleeping soundly since and back off BiPAP. Focused Exam Lactate Level 11/30/22 15:30: Lactic Acid Level 1.37 Objective Exam Vital Signs Vital Signs Date Time Temp Pulse Resp B/P (MAP) Pulse Ox O2 Delivery O2 Flow Rate FiO2 12/02/22 14:27 100 Nasal Cannula 3.00 12/02/22 12:30 60 12/02/22 11:37 36.4 23 114/55 (74) 12/01/22 08:47 28 Capillary Refill : Less Than 3 Seconds General Appearance: No Apparent Distress, Chronically ill, Obese Respiratory: Lungs Clear, No Accessory Muscle Use Cardiovascular: Regular Rate, Rhythm Gastrointestinal: Normal Bowel Sounds, Soft Neurologic/Psychiatric: Other (nurse reposition patient and she roused and hollered a bit but otherwise slept) Results/Procedures Lab Laboratory Tests 12/02/22 05:34 Patient resulted labs reviewed. Imaging: Reviewed Imaging Report Assessment/Plan Assessment and Plan Assess & Plan/Chief Complaint Recurrent Pneumonia Acute on Chronic Respiratory Failure Continue IV abx Cultures with NGTD NSTEMI HTN A fib Cardiology consulted, appreciate recs Dr Logan recommended Lovenox, ASA, Plavix- Dr Park to see today Monitor on Telemetry Hyponatremia Na 124- stable Baseline around 128-130 Fluid restriction- hold off on salt tabs for now Likely acutely worsened by SIADH from pneumonia trend Chronic anemia h/o GIB Baseline around 9 Trend- stable in the 7s Low threshold for transfusion TRACEE FLETCHER MD Dec 02, 2022 13:55
[2022-12-02] MEDS: MELATONIN 10 MG TABLET PO SCH (22:18)
[2022-12-02] MEDS: AtorvaSTATin TABLET 10 MG TABLET PO SCH (22:18)
[2022-12-02] MEDS: MONTELUKAST 10 MG (SINGULAIR) TAB PO SCH (22:19)
[2022-12-02] MEDS: MIRTAZAPINE 15 MG (REMERON) TAB PO SCH (22:19)
[2022-12-03] VITALS (11 sets, daily range): BP systolic 101–138; BP diastolic 61–85
[2022-12-03] MEDS: RT-ALBUTEROL/IPRATROPIUM 3 ML (DUONEB) VIAL INH SCH ×6 (01:21→23:00)
[2022-12-03] MEDS: LORazepam INJ 2 MG/ML (ATIVAN) VIAL IVP PRN ×3 (03:05→22:09)
[2022-12-03 05:53] LABS: BASOPHILS # (AUTO) 0.1 10^3/uL (0.0-0.1); BASOPHILS % (AUTO) 1 % (0-10); EOSINOPHILS # (AUTO) 0.7 10^3/uL (0.0-0.3); EOSINOPHILS % (AUTO) 4 % (0-10); HEMATOCRIT 23 % (35-52); LYMPHOCYTES # (AUTO) 2.4 10^3/uL (1.0-4.0); LYMPHOCYTES % (AUTO) 12 % (12-44); MEAN CORPUSCULAR HEMOGLOBIN 22 pg (25-34); MEAN CORPUSCULAR HGB CONC 30 g/dL (32-36); MEAN CORPUSCULAR VOLUME 72 fL (80-99); MONOCYTES # (AUTO) 1.5 10^3/uL (0.0-1.0); MONOCYTES % (AUTO) 7 % (0-12); NEUTROPHILS # (AUTO) 14.8 10^3/uL (1.8-7.8); NEUTROPHILS % (AUTO) 75 % (42-75); PLATELET COUNT 480 10^3/uL (130-400); WHITE BLOOD COUNT 19.8 10^3/uL (4.3-11.0)
[2022-12-03 06:05] LABS: ALBUMIN 3.3 GM/DL (3.2-4.5); BILIRUBIN,TOTAL 0.4 MG/DL (0.1-1.0); CALCIUM 8.8 MG/DL (8.5-10.1); CREATININE SERUM 0.76 MG/DL (0.60-1.30); MAGNESIUM 1.6 MG/DL (1.6-2.4); POTASSIUM 3.9 MMOL/L (3.6-5.0); TOTAL PROTEIN 5.9 GM/DL (6.4-8.2)
[2022-12-03] MEDS: MAGNESIUM 1 GM/100 ML IVPB 100 ML IV SCH ×5 (06:08→12:15)
[2022-12-03] MEDS: POTASSIUM CL 10MEQ/50ML IVPB 50 ML IV SCH (06:08)
[2022-12-03] MEDS: KCL 20 MEQ TAB (K-DUR) PO SCH (06:09)
[2022-12-03] MEDS: inSUlin ASPART (NovoLOG) 1 UNIT/0.01 ML (CHARGE PER UNIT) SC SCH ×4 (06:10→20:40)
[2022-12-03] MEDS: PIPERACILLIN SODIUM/TAZOBACTAM 4.5 GM in NS (IVPB) 100 ML IV SCH ×3 (06:24→21:04)
[2022-12-03] MEDS: ENOXAPARIN 100 MG/1 ML (LOVENOX) SYR SC SCH (06:24)
[2022-12-03] MEDS: FLUTICASONE/VILANTEROL 100 MCG 14'S (BREO) IH SCH (06:55)
[2022-12-03] MEDS ORDERED: KCL 20 MEQ TAB (K-DUR) PO ONE (08:00)
[2022-12-03] MEDS: VANCOMYCIN 750 MG/NS 250 ML IVPB IV SCH ×2 (09:52)
[2022-12-03] MEDS: ASPIRIN 81 MG CHEW (CHILDREN'S ASA) PO SCH (09:54)
[2022-12-03] MEDS: LORATADINE (CLARITIN) 10 MG TAB PO SCH (09:55)
[2022-12-03] MEDS: PANTOPRAZOLE 40 MG (PROTONIX) TAB PO SCH (09:55)
[2022-12-03] MEDS: SENNOSIDES 8.6 MG (SENOKOT) TAB PO SCH ×2 (09:56→21:03)
[2022-12-03] MEDS: DOCUSATE SODIUM 100 MG (COLACE) CAP PO SCH ×2 (09:56→21:03)
[2022-12-03] MEDS: amLODIPine 5 MG (NORVASC) TAB PO SCH (09:56)
[2022-12-03] MEDS: RIVASTIGMINE 1.5 MG (EXELON) CAP PO SCH ×2 (09:56→21:03)
[2022-12-03] MEDS: LORazepam 0.5 MG (ATIVAN) TABLET PO SCH ×2 (09:57→21:03)
[2022-12-03] MEDS: FUROSEMIDE 20 MG (LASIX) TAB PO SCH (09:57)
[2022-12-03] MEDS: ACETAMINOPHEN 325 MG TABLET PO PRN (09:57)
[2022-12-03] MEDS: OXYBUTYNIN (DITROPAN) 5 MG TAB PO SCH ×2 (10:04→21:03)
[2022-12-03] MEDS: QUEtiapine 100 MG (SEROquel) TAB IMMEDIATE RELEASE PO SCH ×3 (10:05→21:03)
[2022-12-03] MEDS: CLOPIDOGREL 75 MG (PLAVIX) TABLET PO SCH (10:10)
--- NOTE | 2022-12-03 10:46 | Occupational Therapy Eval ---
OT Evaluation-General/PLF Medical Diagnosis Admission Date Nov 30, 2022 at 16:36 Medical Diagnosis: acute respiratory failure Onset Date: Nov 30, 2022 Therapy Diagnosis Therapy Diagnosis: Weakness, SOA Height/Weight Height (Feet): 5 Height (Inches): 3.00 Weight (Pounds): 150 Weight (Ounces): 0.0 Precautions Precautions/Isolations: Fall Prevention, Standard Precautions Referral Referral Reason: Evaluation/Treatment Medical History Pertinent Medical History: Atrial Fib, COPD, Dementia, HTN Additional Medical History 82yoCF with a PMH of recent admission for pneumonia, HTN, HLD, COPD, AFib, PE, GI bleed who presented to the ER due to SOB. She was [facility]/28 after being treated for pneumonia, She was found to have sats of 92% by home health with some softer blood pressures by home health. She was found to have persistent pneumonia and elevated troponin. She was admitted for further management. Reviewed History: Yes Social History Home: Single Level Current Living Status: Other Family (daughter) ADL-Prior Level of Function SCALE: Activities may be completed with or without assistive devices. 4-Yxervsteru-cwspylv completes the activity by him/herself with no assistance from a helper. 5-Set-up or Clean-up Assistance-helper sets up or cleans up; patient completes activity. [place] assists only prior to or following the activity. 4-Supervision or Touching Assistance-helper provides verbal cues and/or touching/steadying and/or contact guard assistance as patient completes activity. Assistance may be provided throughout the activity or intermittently. 3-Partial/Moderate Assistance-helper does LESS THAN HALF the effort. [place] lifts, holds or supports trunk or limbs, but provides less than half the effort. 2-Substantial/Maximal Assistance-helper does MORE THAN HALF the effort. [place] lifts or holds trunk or limbs and provides more than half the effort. 8-Virskjhqe-rgnuto does ALL the effort. Patient does none of the effort to complete the activity. Or, the assistance of 2 or more helpers is required for the patient to complete the activity. If activity was not attempted, code reason: 7-Patient Refused. 9-Not Applicable-not attempted and the patient did not perform the activity before the current illness, exacerbation or injury. 10-Not Attempted due to Environmental Limitations-(lack of equipment, weather restraints, etc.). 88-Not Attempted due to Medical Conditions or Safety Concerns. ADL PLOF Comments Has caregiver assist in addition to daughter that lives with her Self Care: Needed Some Help Functional Cognition: Needed Some Help Drive Self: No OT Current Status Subjective Patient in visible discomfort and SOA w/ 1 liter 02 sustained in 90's at rest and w/ mobility Pain Numeric Pain Scale: 3 Location Body Site: Foot (IV placement) Mental Status/Objective Patient Orientation: Person, Place, Eyes Open Attachments: Woodson Catheter, IV, Oxygen, Telemetry Current Upper Extremity ROM BUE WFLS Upper Extremity Strength +3/5, difficulty and weakness to roll R/L in bed, scoot self or prop self side lying. ADL-Treatment ADL-Current Patient has assistance with All ADLS, transfers and mobility in the home. Eating (QC): 7 (patient declned eatrng and drinking w/ OT) Oral Hygiene (QC): 4 Shower/Bathe Self (QC): 7 (declined) Upper Body Dressing (QC): 3 (gown change d/t unrelated instances of blood and BM) Lower Body Dressing (QC): 2 On/Off Footwear (QC): 1 Toileting Hygiene (QC): 1 (BM, assistance from nursing staff to performe toilet hygiene and linen changes,) Education OT Patient Education: Correct positioning, Exercise program, Modified ADL techniques, Progress toward Goal/Update tx plan, Purpose of tx/functional activities, Reviewed precautions, Rehab process, Safety issues Teaching Recipient: Patient Teaching Methods: Discussion Response to Teaching: Unable to Return Demonstration, Reinforcement Needed OT [facility] Goals Photography Editor Goals Eating (QC): 5 Oral Hygiene (QC): 5 Toileting Hygiene (QC): 3 Shower/Bathe Self (QC): 3 Upper Body Dressing (QC): 4 Lower Body Dressing (QC): 4 On/Off Footwear (QC): 3 1=Demonstrate adherence to instructed precautions during ADL tasks. 2=Patient will verbalize/demonstrate understanding of assistive devices/modifications for ADL. 3=Patient will improve strength/tolerance for activity to enable patient to perform ADL's. OT Education/Plan Problem List/Assessment Assessment: Decreased Activ Tolerance, Decreased Safety Aware, Decreased UE Strength, Impaired Bed Mobility, Impaired Coordination, Impaired Funct Balance, Impaired Self-Care Skills Discharge Recommendations Plan/Recommendations: Continue POC Therapy Discharge Recommendati: Post Acute OT Treatment Plan/Plan of Care Treatment,Training & Education: Yes Patient would benefit from OT for education, treatment and training to promote independence in ADL's, mobility, safety and/or upper extremity function for ADL's. Plan of Care: ADL Retraining, Concurrent Therapy, Functional Mobility, Group Exercise/Act as Ind, UE Funct Exercise/Act Treatment Duration: Dec 06, 2022 Frequency: 3 times per week (3-5 times per week) Estimated Hrs Per Day: .25 hour per day Agreement: Yes Rehab Potential: Fair Patient positioned left side supine following therapy. All needs met Time Start Time: 09:00 Stop Time: 09:19 DATE: Dec 03, 2022 Total Time Billed (hr/min): 19 Billed Treatment Time EVM 19 min PARVIZ HERRERA OT Dec 03, 2022 10:46
--- NOTE | 2022-12-03 11:41 | Physical Therapy Evaluation ---
PT Evaluation-General Medical Diagnosis Admission Date Nov 30, 2022 at 16:36 Medical Diagnosis: acute respiratory failure Onset Date: Nov 30, 2022 Therapy Diagnosis Therapy Diagnosis: Gait Deficit, strength deficit Height/Weight Height (Feet): 5 Height (Inches): 3.00 Weight (Pounds): 150 Weight (Ounces): 0.0 Precautions Precautions/Isolations: Fall Prevention, Standard Precautions Weight Bear Status Right Lower Extremity: Right Full Weight Bearing Left Lower Extremity: Left Full Weight Bearing Referral Physician: Dr. Wright Reason for Referral: Evaluation/Treatment Medical History Pertinent Medical History: Atrial Fib, COPD, Dementia, HTN Reviewed History: Yes Social History Home: Single Level Current Living Status: Other Family (daughter) Entry Into Home: Stairs With Railing PT Steps Into Home: 2 Prior Prior Level of Function SCALE: Activities may be completed with or without assistive devices. 1-Uappdyszsc-lsoweqs completes the activity by him/herself with no assistance from a helper. 5-Set-up or Clean-up Assistance-helper sets up or cleans up; patient completes activity. [place] assists only prior to or following the activity. 4-Supervision or Touching Assistance-helper provides verbal cues and/or touching/steadying and/or contact guard assistance as patient completes activity. Assistance may be provided throughout the activity or intermittently. 3-Partial/Moderate Assistance-helper does LESS THAN HALF the effort. [place] lifts, holds or supports trunk or limbs, but provides less than half the effort. 2-Substantial/Maximal Assistance-helper does MORE THAN HALF the effort. [place] lifts or holds trunk or limbs and provides more than half the effort. 6-Hvcwqlydm-vqtwtv does ALL the effort. Patient does none of the effort to complete the activity. Or, the assistance of 2 or more helpers is required for the patient to complete the activity. If activity was not attempted, code reason: 7-Patient Refused. 9-Not Applicable-not attempted and the patient did not perform the activity before the current illness, exacerbation or injury. 10-Not Attempted due to Environmental Limitations-(lack of equipment, weather restraints, etc.). 88-Not Attempted due to Medical Conditions or Safety Concerns. Bed Mobility: 6 Transfers (B,C,W/C): 6 Gait: 6 Stairs: 3 Indoor Mobility (Ambulation): Independent Stairs: Needed Some Help Prior Devices Use: Walker PT Evaluation-Current Subjective Patient lying supine in bed upon PT arrival, agreeable to treatment. Patient rates pain at 8-9/10 currently in chest. Objective Patient Orientation: Person Attachments: Oxygen, Woodson Catheter, IV ROM/Strength ROM Lower Extremities WFLs BLEs all planes Strength Lower Extremities 3/5 BLEs all planes. Sensory Vision: Functional Hearing: Functional Sensation Right Lower Extremit: Intact Sensation Left Lower Extremity: Intact Transfers Roll Left to Right (QC): 3 Sit to Lying (QC): 2 Lying to Sitting/Side of Bed(Q: 2 Gait Does the Patient Walk?: No and Walking Goal IS indicated Balance Sitting Static: Poor Sitting Dynamic: Poor Assessment/Needs Patient eager to get out of bed. Patient performs all bed mobility and transfers with mod/max A. Upon sitting to EOB, it was discovered patient was incontinent of BM. FUR PLUCKER notified, patient returned to bed to be cleaned. Patient supine in bed post PT evaluation with all needs met, nursing notified, call light in hand, FUR PLUCKER in room. Rehab Potential: Fair PT Channel Manager Goals Custodial Goals PT Custodial Goals Time Frame: Jan 03, 2023 Roll Left & Right (QC): 6 Sit to Lying (QC): 6 Lying-Sitting on Side/Bed(QC): 6 Sit to Stand (QC): 6 Chair/Tef-an-Vcbzm Xfer(QC): 4 Toilet Transfer (QC): 4 Does the Patient Walk: Yes Walk 10 feet (QC): 4 Walk 50ft with 2 Turns (QC): 3 Walk 150 ft (QC): 3 PT Plan Problem List Problem List: Activity Tolerance, Functional Strength, Safety, Balance, Gait, Transfer, Bed Mobility, ROM Treatment/Plan Treatment Plan: Continue Plan of Care Treatment Plan: Bed Mobility, Education, Functional Activity Leonel, Functional Strength, Group Therapy, Gait, Safety, Therapeutic Exercise, Transfers Treatment Duration: Jan 03, 2023 Frequency: 6 times per week Estimated Hrs Per Day: .25 hour per day Patient and/or Family Agrees t: Yes Safety Risks/Education Patient Education: Transfer Techniques Teaching Recipient: Patient Teaching Methods: Demonstration, Discussion Response to Teaching: Reinforcement Needed Time Time In: 1115 Time Out: 1130 DATE: Dec 03, 2022 Total Billed Treatment Time: 15 Total Billed Treatment Visit, BRAD JONAS PT Dec 03, 2022 11:41
--- NOTE | 2022-12-03 12:54 | Consultation-Cardiology ---
HPI-Cardiology Cardiology Consultation: Date of Consultation 12/03/22 Date of Admission Attending Physician Romeo Kent MD Admitting Physician Admitting Physician: Norma Ortiz MD Attending Physician: Norma Ortiz MD Consulting Physician AYANNA HRENANDEZ MD HPI: Time Seen by a Provider: 15:00 82CF with a PMH of recent admission for pneumonia, HTN, HLD, COPD with alpha 1 antitrypsin deficiency, AFib, sick sinus syndrome with permanent pacemaker placement, nonischemic cardiomyopathy PE, GI bleed, who presented to the ER due to SOB. She was discharged from the hospital on 11/28 after being treated for pneumonia, She was found to have sats of 92% by home health with some softer blood pressures by home health. She was found to have persistent pneumonia and elevated troponin. Troponin peaked to 1.5 and subsequently downtrending at 0.68. The only chest discomfort that she complains of is pleuritic consistent with her respiratory distress and diagnosis of pneumonia. EKG shows sinus versus atrial paced rhythm, with ventricular pacing. Unable to interpret the EKG further. She was admitted for further management. She continues to be in respiratory distress. This morning she appears more short of breath. ABGs from 12/02/2022 reviewed and are satisfactory. She is currently on nasal cannula. Chest x-ray 11/30/2022 As per my interpretation: Small bilateral pleural effusions Pulmonary vascular congestion Basilar infiltrates cannot be excluded TTE 12/03/2022 Left ventricular ejection fraction moderately reduced at 35 to 40% Paradoxical interventricular septal movement most likely due to right ventri cular pacing Pulmonary artery systolic pressure estimated at 50 to 55 mmHg IVC mildly dilated but with normal respirophasic changes No pericardial effusion TTE 01/2020 Left ventricular ejection fraction 55 to 65% Pulmonary artery systolic pressure estimated at 35 to 40 mmHg Cardiac catheterization July 2019 Mild coronary artery disease. Left ventricle ejection fraction estimated at 35%, with paradoxical septal motion noted Review of Systems-Cardiology All Other Systems Reviewed Negative Unless Noted: Yes CXP-[place]-Hmnaum Hx Patient Social History Employed/Student: retired 2[employer] Smoke Exposure: No Alcohol Use?: No Pt feels they are or have been: No Immunizations Up To Date Tetanus Booster (TDap): Unknown Date of Pneumonia Vaccine: Feb 10, 2015 Date of Influenza Vaccine: Mar 27, 2020 Past Medical History PMH As described under Assessment. Family Medical History Family History: Blood clots (sister had a blood clot in the brain which caused her  in 2 011) Allergies and Home Medications Allergies Coded Allergies: Penicillins (Verified Allergy, Mild, 04/15/22) ketorolac (Verified Allergy, Mild, 04/15/22) morphine (Verified Allergy, Mild, pt has received Lortab in the past, 04/16/22) tetracycline (Verified Allergy, Mild, 04/15/22) paroxetine (Verified Allergy, Unknown, 04/15/22) Patient Home Medication List Home Medication List Reviewed: Yes Acetaminophen (Tylenol Extra Strength) 500 Mg Tablet, 1,000 MG PO 1100,1600, (Reported) Entered as Reported by: MARIELLA PALMA on 10/03/16 0753 Last Action: Reviewed Amlodipine Besylate (Amlodipine Besylate) 5 Mg Tablet, 5 MG PO DAILY, (Reported) Entered as Reported by: TERESA NAGEL on 11/25/221402 Last Action: Continued Benzonatate (Benzonatate) 200 Mg Capsule, 200 MG PO Q8H PRN for COUGH, (Reported) Entered as Reported by: TERESA NAGEL on 11/25/221402 Last Action: Converted Calcium Carbonate/Vitamin D3 (Calcium 600 + Vit D 200 Tablet) 1 Each Tablet, 1 TAB PO BID, (Reported) Entered as Reported by: BEAU MELGAR on 07/13/171602 Last Action: Held Carvedilol (Carvedilol) 3.125 Mg Tablet, 3.125 MG PO BID WITH MEALS, (Reported) Entered as Reported by: TERESA NAGEL on 11/25/221402 Last Action: Continued Diphenhydramine HCl (Benadryl) 25 Mg Capsule, 25-50 MG PO DAILY, (Reported) Entered as Reported by: TERESA NAGEL on 11/25/221402 Last Action: Held Diphenhydramine HCl (Benadryl) 25 Mg Capsule, 25-50 MG PO HS PRN for ALLERGY SY MPTOMS, (Reported) Entered as Reported by: TERESA NAGEL on 11/25/221402 Last Action: Held Fexofenadine HCl (Fexofenadine HCl) 180 Mg Tablet, 180 MG PO DAILY, (Reported) Entered as Reported by: TERESA NAGEL on 11/25/221402 Last Action: Converted Fluticasone Propionate (Fluticasone Propionate) 50 Mcg/Actuation [place].susp, 1 SPRAY NSEACH BID, (Reported) Entered as Reported by: BEAU MELGAR on 07/13/17 160 Last Action: Continued Fluticasone/Vilanterol (Breo Ellipta 100-25 Mcg INH) 100 Mcg-25 Mcg/Dose Blst.w.dev, 1 PUFF INH DAILY, (Reported) Entered as Reported by: TERESA NAGEL on 11/25/221402 Last Action: Continued Furosemide (Furosemide) 20 Mg Tablet, 20 MG PO DAILY, (Reported) Entered as Reported by: TERESA NAGEL on 04/15/221640 Last Action: Continued Guaifenesin (Mucus Relief) 600 Mg Tab.er.12h, 600 MG PO Q12H PRN for CONGESTION, (Reported) Entered as Reported by: TERESA NAGEL on 11/25/221402 Last Action: Continued Ipratropium/Albuterol Sulfate (Iprat-Albut 0.5-3(2.5) mg/3 ml) 0.5 Mg-3 Mg (2.5 Mg Base)/3 Ml Ampul.neb, 3 ML IH Q4H, (Reported) Entered as Reported by: TOBIN STACY on 12/01/221407 Last Action: Held Levofloxacin (Levofloxacin) 500 Mg Tablet, 500 MG PO DAILY, (Reported) Entered as Reported by: TOBIN STACY on 12/01/221407 Last Action: Held Lorazepam (Ativan) 0.5 Mg Tablet, 0.5 MG PO BID, (Reported) Entered as Reported by: TERESA NAGEL on 04/15/221640 Last Action: Continued Melatonin (Melatonin) 5 Mg Tablet, 10 MG PO HS, (Reported) Entered as Reported by: TERESA NAGEL on 04/15/221640 Last Action: Converted Mirtazapine (Mirtazapine) 15 Mg Tablet, 15 MG PO HS, (Reported) Entered as Reported by: DENNY HANLEY on 07/06/21 0502 Last Action: Converted Montelukast Sodium (Montelukast Sodium) 10 Mg Tablet, 10 MG PO HS, (Reported) Entered as Reported by: MARIELLA PALMA on 10/03/16 0753 Last Action: Continued Oxybutynin Chloride (Oxybutynin Chloride ER) 10 Mg Tab.er.24, 10 MG PO DAILY, (Reported) Entered as Reported by: TERESA NAGEL on 07/18/19 1004 Last Action: Converted Pantoprazole Sodium (Pantoprazole Sodium) 40 Mg Tablet.dr, 40 MG PO DAILY, (Reported) Entered as Reported by: DENNY HANLEY on 07/06/21 0502 Last Action: Continued Potassium Chloride (K-Tab ER) 10 Meq Tablet.er, 10 MEQ PO DAILY, (Reported) Entered as Reported by: TERESA NAGEL on 04/15/22 164 Last Action: Held Pravastatin Sodium (Pravastatin Sodium) 40 Mg Tablet, 40 MG PO HS, (Reported) Entered as Reported by: TERESA NAGEL on 04/15/22 164 Last Action: Converted Quetiapine Fumarate (Quetiapine Fumarate) 100 Mg Tablet, 50 MG PO 0800,1600,2200, (Reported) Entered as Reported by: TERESA NAGEL on 11/25/22 1403 Last Action: Continued Rivastigmine Tartrate (Rivastigmine) 1.5 Mg Capsule, 1.5 MG PO BID, (Reported) Entered as Reported by: KAYLEN JAMIL on 09/02/18 1106 Last Action: Continued Discontinued Medications Azithromycin (Azithromycin) 250 Mg Tablet, 250 MG PO DAILY, (Reported) Entered as Reported by: TERESA NAGEL on 11/25/22 140 Cefdinir (Cefdinir) 300 Mg Capsule, 300 MG PO BID, (Reported) Entered as Reported by: TERESA NAGEL on 11/25/22 1403 Ipratropium/Albuterol Sulfate (Iprat-Albut 0.5-3(2.5) mg/3 ml) 0.5 Mg-3 Mg (2.5 Mg Base)/3 Ml Ampul.neb, 3 ML INH [id number] Discontinued Reason: Duplicate Order Prescribed by: KORI CREWS on 11/27/22 112 Last Action: Discontinued Levofloxacin (Levofloxacin) 500 Mg Tablet, 500 MG PO DAILY Discontinued Reason: Duplicate Order Prescribed by: KORI CREWS on 11/27/221126 Last Action: Discontinued Exam Vital Signs Vital Signs Date Time Temp Pulse Resp B/P (MAP) Pulse Ox O2 Delivery O2 Flow Rate FiO2 12/03/22 14:01 91 Nasal Cannula 0.50 12/03/22 12:51 60 12/03/22 11:55 36.0 24 109/63 (78) 12/01/22 08:47 28 Labs Laboratory Tests Test 12/02/22 15:37 12/02/22 20:25 12/03/22 05:05 12/03/22 06:06 Range/Units Glucometer 126 H 137 H 105 70-110 MG/DL White Blood Count 19.8 H 4.3-11.0 10^3/uL Red Blood Count 3.22 L 3.80-5.11 10^6/uL Hemoglobin 7.0 L 11.5-16.0 g/dL Hematocrit 23 L 35-52 % Mean Corpuscular Volume 72 L 80-99 fL Mean Corpuscular Hemoglobin 22 L 25-34 pg Mean Corpuscular Hemoglobin Concent 30 L 32-36 g/dL Red Cell Distribution Width 16.6 H 10.0-14.5 % Platelet Count 480 H 130-400 10^3/uL Mean Platelet Volume 9.0 9.0-12.2 fL Immature Granulocyte % (Auto) 1 % Neutrophils (%) (Auto) 75 42-75 % Lymphocytes (%) (Auto) 12 12-44 % Monocytes (%) (Auto) 7 0-12 % Eosinophils (%) (Auto) 4 0-10 % Basophils (%) (Auto) 1 0-10 % Neutrophils # (Auto) 14.8 H 1.8-7.8 10^3/uL Lymphocytes # (Auto) 2.4 1.0-4.0 10^3/uL Monocytes # (Auto) 1.5 H 0.0-1.0 10^3/uL Eosinophils # (Auto) 0.7 H 0.0-0.3 10^3/uL Basophils # (Auto) 0.1 0.0-0.1 10^3/uL Immature Granulocyte # (Auto) 0.3 H 0.0-0.1 10^3/uL Sodium Level 125 *L 135-145 MMOL/L Potassium Level 3.9 3.6-5.0 MMOL/L Chloride Level 96 L 98-107 MMOL/L Carbon Dioxide Level 21 21-32 MMOL/L Anion Gap 8 5-14 MMOL/L Blood Urea Nitrogen 10 7-18 MG/DL Creatinine 0.76 0.60-1.30 MG/DL Estimat Glomerular Filtration Rate 79 BUN/Creatinine Ratio 13 Glucose Level 102 70-105 MG/DL Calcium Level 8.8 8.5-10.1 MG/DL Corrected Calcium 9.4 8.5-10.1 MG/DL Magnesium Level 1.6 1.6-2.4 MG/DL Total Bilirubin 0.4 0.1-1.0 MG/DL Aspartate Amino Transf (AST/SGOT) 13 5-34 U/L Alanine Aminotransferase (ALT/SGPT) 8 0-55 U/L Alkaline Phosphatase 57 40-136 U/L Total Protein 5.9 L 6.4-8.2 GM/DL Albumin 3.3 3.2-4.5 GM/DL Sodium 125, potassium 3.5, BUN 10, creatinine 0.75. Hemoglobin 7.0 and drifting downwards, white cell count 19,800, platelet count 480,000. ECG Impression ECG Initial ECG Impression Date: Dec 03, 2022 A/P-Cardiology Assessment/Admission Diagnosis 1. Community-acquired pneumonia. This appears to be her main diagnosis. Continue antibiotics. Significant leukocytosis upon admission, now improving. Respiratory distress continues. Plan bilevel positive airway pressure ventilation intermittently for respiratory support. Mild CHF exacerbation suspected. Suggestion of volume overload by transthoracic echocardiography. Left ventricular ejection fraction 35 to 40% on transthoracic echo, with paradoxical septal motion consistent with right ventricular pacing. Cautious diuresis. 1 dose of IV furosemide 40 mg ordered. Continue low-dose p.o. f urosemide 20 mg p.o. daily 2. Elevated troponin. Type II non-ST elevation myocardial infarction due to supply/demand mismatch. Overall, picture not consistent with acute coronary syndrome. Noninvasive restratification with myocardial perfusion imaging will be considered prior to discharge. For now, do not treat as acute coronary syndrome 3. History of paroxysmal atrial fibrillation. Patient not on long-term anticoagulation by choice. In the past risk of stroke without anticoagulation has been discussed with the patient. 4. Anemia. Hemoglobin slowly drifting downwards. The patient has a history of anemia. In the past no blood loss source was identified on upper and lower GI endoscopy. Baseline hemoglobin around 9. Hold systemic anticoagulation in view of falling hematocrit. I am discontinuing therapeutic dose of subcutaneous enoxaparin. We will continue DVT prophylaxis with lower dose enoxaparin 5. 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 6. Dyslipidemia. 7. Hypertension 8. History of permanent pacemaker placement. 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 H/O alpha-1 antitrypsin deficiency-associated COPD, managed by Pulmonology 10. History of chronic kidney disease. Continue to monitor renal function AYANNA HERNANDEZ MD Dec 03, 2022 12:54
--- NOTE | 2022-12-03 14:10 | Progress Note - Hospitalist ---
Subjective HPI/CC On Admission Date Seen by Provider: Dec 03, 2022 Pt is an 82yoCF with a PMH of recent admission for pneumonia, HTN, HLD, COPD, AFib, PE, GI bleed who presented to the ER due to SOB. She was discharged from the hospital on 11/28 after being treated for pneumonia, She was found to have sats of 92% by home health with some softer blood pressures by home health. She was found to have persistent pneumonia and elevated troponin. She was admitted for further management. This morning she reports she is feeling better and breathing better. Discussed her lab findings and need for further work up of her heart. Subjective/Events-last exam Pt much more alert today. No complaints. Hoping to get out of bed. Eating breakfast. Focused Exam Lactate Level Objective Exam Vital Signs Vital Signs Date Time Temp Pulse Resp B/P (MAP) Pulse Ox O2 Delivery O2 Flow Rate FiO2 12/03/22 15:42 36.4 64 10 104/64 (77) 100 NIV Bilevel 40.00 12/01/22 08:47 28 Capillary Refill : Less Than 3 Seconds General Appearance: No Apparent Distress, Chronically ill Respiratory: Lungs Clear Cardiovascular: Regular Rate, Rhythm Neurologic/Psychiatric: Alert, Oriented x3 Results/Procedures Lab Laboratory Tests 12/03/22 05:05 Patient resulted labs reviewed. Imaging: Reviewed Imaging Report Assessment/Plan Assessment and Plan Assess & Plan/Chief Complaint Recurrent Pneumonia Acute on Chronic Respiratory Failure Continue IV abx Cultures with NGTD Wean oxygen as able NSTEMI HTN A fib CHF Cardiology consulted, appreciate recs Dr Logan recommended Lovenox, ASA, Plavix- Dr Park to see today Monitor on Telemetry IV lasix Hyponatremia Stable but remains low Baseline around 128-130 Fluid restriction- hold off on salt tabs for now due to CHF Likely acutely worsened by SIADH from pneumonia trend Chronic anemia h/o GIB Baseline around 9 Trend- stable in the 7s Low threshold for transfusion Decreased Lovenox to ppx dose TRACEE FLETCHER MD Dec 03, 2022 14:10
[2022-12-03] MEDS ORDERED: NS (IVPB) 100 ML ONE (15:09)
[2022-12-03] MEDS ORDERED: FUROSEMIDE 40 MG/4 ML INJ (LASIX) IVP NR (15:30)
[2022-12-03] MEDS ORDERED: ENOXAPARIN 40 MG/0.4 ML (LOVENOX) SYR SQ SCH (15:30)
[2022-12-03] MEDS: MIRTAZAPINE 15 MG (REMERON) TAB PO SCH (21:02)
[2022-12-03] MEDS: FLUTICASONE NASAL SPRAY (FLONASE) 16 GM BTL NS SCH ×2 (21:02→21:05)
[2022-12-03] MEDS: AtorvaSTATin TABLET 10 MG TABLET PO SCH (21:02)
[2022-12-03] MEDS: MONTELUKAST 10 MG (SINGULAIR) TAB PO SCH (21:03)
[2022-12-03] MEDS: MELATONIN 10 MG TABLET PO SCH (21:03)
[2022-12-03] MEDS ORDERED: VANCOMYCIN 750 MG/NS 250 ML IVPB IV SCH ×2 (22:00)
[2022-12-04] VITALS (13 sets, daily range): BP systolic 92–115; BP diastolic 50–76
[2022-12-04 04:09] LABS: BASOPHILS # (AUTO) 0.1 10^3/uL (0.0-0.1); BASOPHILS % (AUTO) 0 % (0-10); EOSINOPHILS # (AUTO) 0.9 10^3/uL (0.0-0.3); EOSINOPHILS % (AUTO) 6 % (0-10); HEMATOCRIT 21 % (35-52); LYMPHOCYTES # (AUTO) 2.3 10^3/uL (1.0-4.0); LYMPHOCYTES % (AUTO) 15 % (12-44); MEAN CORPUSCULAR HEMOGLOBIN 22 pg (25-34); MEAN CORPUSCULAR HGB CONC 30 g/dL (32-36); MEAN CORPUSCULAR VOLUME 71 fL (80-99); MEAN PLATELET VOLUME 9.2 fL (9.0-12.2); MONOCYTES # (AUTO) 1.2 10^3/uL (0.0-1.0); MONOCYTES % (AUTO) 8 % (0-12); NEUTROPHILS # (AUTO) 11.1 10^3/uL (1.8-7.8); NEUTROPHILS % (AUTO) 71 % (42-75); PLATELET COUNT 425 10^3/uL (130-400); WHITE BLOOD COUNT 15.7 10^3/uL (4.3-11.0)
[2022-12-04 04:33] LABS: POTASSIUM 3.4 MMOL/L (3.6-5.0)
[2022-12-04 04:34] LABS: CALCIUM 8.3 MG/DL (8.5-10.1)
[2022-12-04 04:35] LABS: TOTAL PROTEIN 5.4 GM/DL (6.4-8.2)
[2022-12-04 04:37] LABS: BILIRUBIN,TOTAL 0.4 MG/DL (0.1-1.0)
[2022-12-04 04:39] LABS: CREATININE SERUM 0.86 MG/DL (0.60-1.30)
[2022-12-04 04:42] LABS: HEMOGLOBIN 6.3 g/dL (11.5-16.0)
[2022-12-04] MEDS ORDERED: NS IV 500 ML 500 ML IV SCH ×2 (05:00→17:30)
[2022-12-04] MEDS: MAGNESIUM 1 GM/100 ML IVPB 100 ML IV SCH (06:06)
[2022-12-04] MEDS: POTASSIUM CL 10MEQ/50ML IVPB 50 ML IV SCH (06:06)
[2022-12-04] MEDS: inSUlin ASPART (NovoLOG) 1 UNIT/0.01 ML (CHARGE PER UNIT) SC SCH ×4 (06:06→22:33)
[2022-12-04] MEDS: KCL 20 MEQ TAB (K-DUR) PO SCH (06:06)
[2022-12-04] MEDS ORDERED: KCL 20 MEQ TAB (K-DUR) PO ONE (06:15)
[2022-12-04] MEDS: PIPERACILLIN SODIUM/TAZOBACTAM 4.5 GM in NS (IVPB) 100 ML IV SCH ×3 (06:50→22:33)
[2022-12-04] MEDS: RT-ALBUTEROL/IPRATROPIUM 3 ML (DUONEB) VIAL INH SCH ×5 (07:11→22:37)
[2022-12-04] MEDS: LORATADINE (CLARITIN) 10 MG TAB PO SCH (08:12)
[2022-12-04] MEDS: CLOPIDOGREL 75 MG (PLAVIX) TABLET PO SCH (08:12)
[2022-12-04] MEDS: QUEtiapine 100 MG (SEROquel) TAB IMMEDIATE RELEASE PO SCH ×3 (08:12→22:37)
[2022-12-04] MEDS: DOCUSATE SODIUM 100 MG (COLACE) CAP PO SCH ×2 (08:12→22:31)
[2022-12-04] MEDS: FUROSEMIDE 20 MG (LASIX) TAB PO SCH (08:12)
[2022-12-04] MEDS: PANTOPRAZOLE 40 MG (PROTONIX) TAB PO SCH (08:12)
[2022-12-04] MEDS: LORazepam 0.5 MG (ATIVAN) TABLET PO SCH ×2 (08:12→22:32)
[2022-12-04] MEDS: RIVASTIGMINE 1.5 MG (EXELON) CAP PO SCH ×2 (08:12→22:32)
[2022-12-04] MEDS: SENNOSIDES 8.6 MG (SENOKOT) TAB PO SCH ×2 (08:13→22:32)
[2022-12-04] MEDS: FLUTICASONE NASAL SPRAY (FLONASE) 16 GM BTL NS SCH ×2 (08:13→22:31)
[2022-12-04] MEDS: OXYBUTYNIN (DITROPAN) 5 MG TAB PO SCH ×2 (08:13→22:31)
[2022-12-04] MEDS: amLODIPine 5 MG (NORVASC) TAB PO SCH (08:13)
[2022-12-04] MEDS: ASPIRIN 81 MG CHEW (CHILDREN'S ASA) PO SCH (08:13)
[2022-12-04] MEDS: ENOXAPARIN 40 MG/0.4 ML (LOVENOX) SYR SQ SCH (08:14)
--- NOTE | 2022-12-04 08:47 | Diagnostic Imaging Report ---
History: Increased shortness of breath COMPARISON: 11/30/2022 TECHNIQUE: Frontal view the chest FINDINGS: There are airspace opacities in the lung bases bilaterally. There may be a small left pleural effusion. Overall aeration appears similar to the prior exam. There is mild cardiomegaly. No pneumothorax is seen. The right PICC line tip projects over the SVC, although the patient is rotated to the left. Pacemaker leads appear stable. IMPRESSION: 1. Bibasilar airspace opacities with likely small left pleural effusion. Aeration appears similar to the prior exam. 2. Mild cardiomegaly. Dictated by: Dictated on workstation # [id number]
--- NOTE | 2022-12-04 09:31 | Physical Therapy Daily Note ---
PT Daily Note-Current Subjective Patient requires encouragement to participate with therapy. Patient incontinent BM requiring dependent assist to cleanse and change. Pain Section J - Health Conditions 1. Rarely or not at all 2. Occasionally 3. Frequently 4. Almost constantly 8. Unable to answer Pain Effect on Sleep: 8 Pain Interference with Therapy: 8 Pain Interference w/Day-to-Day: 8 Transfers SCALE: Activities may be completed with or without assistive devices. 9-Crpuhfwjop-irkdeux completes the activity by him/herself with no assistance from a helper. 5-Set-up or Clean-up Assistance-helper sets up or cleans up; patient completes activity. [place] assists only prior to or following the activity. 4-Supervision or Touching Assistance-helper provides verbal cues and/or touching/steadying and/or contact guard assistance as patient completes activity. Assistance may be provided throughout the activity or intermittently. 3-Partial/Moderate Assistance-helper does LESS THAN HALF the effort. [place] lifts, holds or supports trunk or limbs, but provides less than half the effort. 2-Substantial/Maximal Assistance-helper does MORE THAN HALF the effort. [place] lifts or holds trunk or limbs and provides more than half the effort. 0-Wlorbfhih-usjfxg does ALL the effort. Patient does none of the effort to complete the activity. Or, the assistance of 2 or more helpers is required for the patient to complete the activity. If activity was not attempted, code reason: 7-Patient Refused. 9-Not Applicable-not attempted and the patient did not perform the activity before the current illness, exacerbation or injury. 10-Not Attempted due to Environmental Limitations-(lack of equipment, weather restraints, etc.). 88-Not Attempted due to Medical Conditions or Safety Concerns. Lying to Sitting/Side of Bed(Q: 3 Sit to Stand (QC): 3 Chair/Lrv-fc-Hzhpl Xfer(QC): 3 Toilet Transfer (QC): 3 Weight Bearing Right Lower Extremity: Right Full Weight Bearing Left Lower Extremity: Left Full Weight Bearing Assessment Patient requires time to complete all functional tasks. Patient moves very slow ly and requires encouragement to participate with therapy and complete tasks. Patient up in recliner with needs met. PT Senior Ui Developer Goals Skilled Nursing Goals PT Skilled Nursing Goals Time Frame: Jan 03, 2023 Roll Left & Right (QC): 6 Sit to Lying (QC): 6 Lying-Sitting on Side/Bed(QC): 6 Sit to Stand (QC): 6 Chair/Cen-pz-Tybki Xfer(QC): 4 Toilet Transfer (QC): 4 Does the Patient Walk: Yes Walk 10 feet (QC): 4 Walk 50ft with 2 Turns (QC): 3 Walk 150 ft (QC): 3 PT Plan Treatment/Plan Treatment Plan: Continue Plan of Care Treatment Plan: Bed Mobility, Education, Functional Activity Leonel, Functional Strength, Group Therapy, Gait, Safety, Therapeutic Exercise, Transfers Treatment Duration: Jan 03, 2023 Frequency: 6 times per week Estimated Hrs Per Day: .25 hour per day Patient and/or Family Agrees t: Yes Time Time In: 900 Time Out: 923 DATE: Dec 04, 2022 Total Billed Treatment Time: 23 Total Billed Treatment 1 visit FA x 2 23 min INDIRA PEREZ PT Dec 04, 2022 09:31
[2022-12-04] MEDS: FLUTICASONE/VILANTEROL 100 MCG 14'S (BREO) IH SCH (10:48)
--- NOTE | 2022-12-04 11:16 | Occupational Ther Daily Note ---
OT Current Status-Daily Note Subjective On arrival patient is incontinent in bed. NO BSC in room, 2 person assist to transfer and perform toilet task. Patient reports she tells staff. Mental Status/Objective Patient Orientation: Person, Confused, Place Attachments: Woodson Catheter, IV, Oxygen ADL-Treatment During toileting patient is donned w/ pull up breif and setup in recliner following session, supplies needed for BM and clean up /sanitation are not in room. Assistance is required to perform skill Therapy Code Descriptions/Definitions Functional [place] Measure: 0=Not Assessed/NA 4=Minimal Assistance 1=Total Assistance 5=Supervision or Setup 2=Maximal Assistance 6=Modified [place] 3=Moderate Assistance 7=Complete IndependenceSCALE: Activities may be completed with or without assistive devices. 4-Bfgqsysnhh-srsxzxd completes the activity by him/herself with no assistance from a helper. 5-Set-up or Clean-up Assistance-helper sets up or cleans up; patient completes activity. [place] assists only prior to or following the activity. 4-Supervision or Touching Assistance-helper provides verbal cues and/or touching/steadying and/or contact guard assistance as patient completes activity. Assistance may be provided throughout the activity or intermittently. 3-Partial/Moderate Assistance-helper does LESS THAN HALF the effort. [place] lifts, holds or supports trunk or limbs, but provides less than half the effort. 2-Substantial/Maximal Assistance-helper does MORE THAN HALF the effort. [place] lifts or holds trunk or limbs and provides more than half the effort. 3-Jltpeosue-csoxyj does ALL the effort. Patient does none of the effort to complete the activity. Or, the assistance of 2 or more helpers is required for the patient to complete the activity. If activity was not attempted, code reason: 7-Patient Refused. 9-Not Applicable-not attempted and the patient did not perform the activity before the current illness, exacerbation or injury. 10-Not Attempted due to Environmental Limitations-(lack of equipment, weather restraints, etc.). 88-Not Attempted due to Medical Conditions or Safety Concerns. Eating (QC): 5 (Fluid restriction, bottles of water placed out of patient reach) Oral Hygiene (QC): 4 Shower/Bathe Self (QC): 7 Upper Body Dressing (QC): 3 Lower Body Dressing (QC): 1 On/Off Footwear: 1 Toileting Hygiene (QC): 1 Toilet Transfer (QC): 1 (2 person w/ FWW/Gait belt an dpatient w/ poor safety awareness and resistive during transfer) Education OT Patient Education: Correct positioning, Instructions to caregiver (instruction to staff to physically check for incontience as patient does not accuratelly report issues), Modified ADL techniques, Progress toward Goal/Update tx plan, Purpose of tx/functional activities, Reviewed precautions, Rehab process, Use of adapted equipment Teaching Recipient: Patient Teaching Methods: Demonstration, Discussion Response to Teaching: Reinforcement Needed OT Fdc Goals Fdc Goals Eating (QC): 5 Oral Hygiene (QC): 5 Toileting Hygiene (QC): 3 Shower/Bathe Self (QC): 3 Upper Body Dressing (QC): 4 Lower Body Dressing (QC): 4 On/Off Footwear (QC): 3 1=Demonstrate adherence to instructed precautions during ADL tasks. 2=Patient will verbalize/demonstrate understanding of assistive devices/spencer fications for ADL. 3=Patient will improve strength/tolerance for activity to enable patient to perform ADL's. OT Education/Plan Problem List/Assessment Assessment: Decreased Activ Tolerance, Decreased Safety Aware, Decreased UE Strength, Dependent Transfers, Impaired Bed Mobility, Impaired Coordination, Impaired Funct Balance, Impaired Self-Care Skills Discharge Recommendations Plan/Recommendations: Continue POC Treatment Plan/Plan of Care Treatment,Training & Education: Yes Patient would benefit from OT for education, treatment and training to promote independence in ADL's, mobility, safety and/or upper extremity function for ADL's. Plan of Care: ADL Retraining, Concurrent Therapy, Functional Mobility, Group Exercise/Act as Ind, UE Funct Exercise/Act Treatment Duration: Dec 06, 2022 Frequency: 3 times per week (3-5 times per week) Estimated Hrs Per Day: .25 hour per day Agreement: Yes Rehab Potential: Fair Time Start Time: 09:00 Stop Time: 09:23 DATE: Dec 04, 2022 Total Time Billed (hr/min): 23 Billed Treatment Time ADL 23 min PARVIZ HERRERA OT Dec 04, 2022 11:16
--- NOTE | 2022-12-04 13:03 | Progress Note - Hospitalist ---
Subjective HPI/CC On Admission Date Seen by Provider: Dec 04, 2022 Pt is an 82yoCF with a PMH of recent admission for pneumonia, HTN, HLD, COPD, AFib, PE, GI bleed who presented to the ER due to SOB. She was discharged from the hospital on 11/28 after being treated for pneumonia, She was found to have sats of 92% by home health with some softer blood pressures by home health. She was found to have persistent pneumonia and elevated troponin. She was admitted for further management. This morning she reports she is feeling better and breathing better. Discussed her lab findings and need for further work up of her heart. Subjective/Events-last exam Pt reports feeling better today. No Complaints. About to get up with PT. Objective Exam Vital Signs Vital Signs Date Time Temp Pulse Resp B/P (MAP) Pulse Ox O2 Delivery O2 Flow Rate FiO2 12/04/22 12:00 36.5 80 26 111/66 98 Nasal Cannula 0.50 12/01/22 08:47 28 Capillary Refill : Less Than 3 Seconds General Appearance: No Apparent Distress, Chronically ill, Obese Respiratory: Lungs Clear, No Accessory Muscle Use Cardiovascular: Regular Rate, Rhythm, No Murmur Gastrointestinal: Normal Bowel Sounds, Soft Neurologic/Psychiatric: Alert, Oriented x3 Results/Procedures Lab Laboratory Tests 12/04/22 04:02 Patient resulted labs reviewed. Imaging: Reviewed Imaging Report Assessment/Plan Assessment and Plan Assess & Plan/Chief Complaint Recurrent Pneumonia Acute on Chronic Respiratory Failure Continue IV abx- DC Vanc Cultures with NGTD Wean oxygen as able NSTEMI HTN A fib CHF Cardiology consulted, appreciate recs Monitor on Telemetry IV lasix- negative 1830mL yesterday Hyponatremia Up to 130 today Baseline around 128-130 Fluid restriction- hold off on salt tabs for now due to CHF Likely acutely worsened by SIADH from pneumonia trend Chronic anemia h/o GIB Baseline around 9 Hgb down to 6.3- had some bleeding after PICC yesterday 1 unit pRBCs ordered Decreased Lovenox to ppx dose TRACEE FLETCHER MD Dec 04, 2022 13:03
--- NOTE | 2022-12-04 15:06 | Cardiology Progress Note ---
Subjective Time Seen by Provider: 16:00 Subjective/Events-last exam Ongoing dyspnea, even on minimal exertion. Visibly tachypneic. 82-year-old female with a PMH of recent admission for pneumonia, HTN, HLD, COPD with alpha 1 antitrypsin deficiency, AFib, sick sinus syndrome with permanent pacemaker placement, nonischemic cardiomyopathy PE, GI bleed, who presented to the ER due to SOB. She was discharged from the hospital on 11/28 after being treated for pneumonia, She was found to have sats of 92% by home health with some softer blood pressures by home health. She was found to have persistent pneumonia and elevated troponin. Troponin peaked to 1.5 and subsequently downtrending at 0.68. The only chest discomfort that she complains of is pleuritic consistent with her respiratory distress and diagnosis of pneumonia. EKG shows sinus versus atrial paced rhythm, with ventricular pacing. Unable to interpret the EKG further. Review of Systems As mentioned in history of present illness Exam Vital Signs Vital Signs Date Time Temp Pulse Resp B/P (MAP) Pulse Ox O2 Delivery O2 Flow Rate FiO2 12/04/22 15:00 93 Nasal Cannula 0.50 12/04/22 12:55 78 12/04/22 12:00 36.5 26 111/66 12/01/22 08:47 28 Physical Exam Patient awake and alert. Still complaining of shortness of breath. Dyspnea on minimal exertion. Hemoglobin continues to drift downwards and is 6.3 today. White cell count improving on antibiotics EXAMINATION: Crackles on lung exam and bronchospasm S1 and S2 are regular. No murmur 1+ bilateral lower extremity edema Jugular venous distention difficult to assess Nonfocal neurological examination IMAGING: Chest x-ray 12/04/2022 reviewed, and compared to chest x-ray from 11/30/2022 IMPRESSION: 1. Bibasilar airspace opacities with likely small left pleural effusion. Aeration appears similar to the prior exam. 2. Mild cardiomegaly. TTE 12/03/2022 Left ventricular ejection fraction moderately reduced at 35 to 40% Paradoxical interventricular septal movement most likely due to right ventricular pacing Pulmonary artery systolic pressure estimated at 50 to 55 mmHg IVC mildly dilated but with normal respirophasic changes No pericardial effusion TTE 01/2020 Left ventricular ejection fraction 55 to 65% Pulmonary artery systolic pressure estimated at 35 to 40 mmHg Cardiac catheterization July 2019 Mild coronary artery disease. Left ventricle ejection fraction estimated at 35%, with paradoxical septal motion noted Labs Laboratory Tests Test 12/03/22 15:24 12/03/22 20:27 12/04/22 04:02 12/04/22 10:57 Range/Units Glucometer 128 H 143 H 133 H 70-110 MG/DL White Blood Count 15.7 H 4.3-11.0 10^3/uL Red Blood Count 2.92 L 3.80-5.11 10^6/uL Hemoglobin 6.3 *L 11.5-16.0 g/dL Hematocrit 21 L 35-52 % Mean Corpuscular Volume 71 L 80-99 fL Mean Corpuscular Hemoglobin 22 L 25-34 pg Mean Corpuscular Hemoglobin Concent 30 L 32-36 g/dL Red Cell Distribution Width 16.8 H 10.0-14.5 % Platelet Count 425 H 130-400 10^3/uL Mean Platelet Volume 9.2 9.0-12.2 fL Immature Granulocyte % (Auto) 1 % Neutrophils (%) (Auto) 71 42-75 % Lymphocytes (%) (Auto) 15 12-44 % Monocytes (%) (Auto) 8 0-12 % Eosinophils (%) (Auto) 6 0-10 % Basophils (%) (Auto) 0 0-10 % Neutrophils # (Auto) 11.1 H 1.8-7.8 10^3/uL Lymphocytes # (Auto) 2.3 1.0-4.0 10^3/uL Monocytes # (Auto) 1.2 H 0.0-1.0 10^3/uL Eosinophils # (Auto) 0.9 H 0.0-0.3 10^3/uL Basophils # (Auto) 0.1 0.0-0.1 10^3/uL Immature Granulocyte # (Auto) 0.2 H 0.0-0.1 10^3/uL Sodium Level 130 L 135-145 MMOL/L Potassium Level 3.4 L 3.6-5.0 MMOL/L Chloride Level 96 L 98-107 MMOL/L Carbon Dioxide Level 25 21-32 MMOL/L Anion Gap 9 5-14 MMOL/L Blood Urea Nitrogen 9 7-18 MG/DL Creatinine 0.86 0.60-1.30 MG/DL Estimat Glomerular Filtration Rate 68 BUN/Creatinine Ratio 10 Glucose Level 105 70-105 MG/DL Calcium Level 8.3 L 8.5-10.1 MG/DL Corrected Calcium 9.1 8.5-10.1 MG/DL Total Bilirubin 0.4 0.1-1.0 MG/DL Aspartate Amino Transf (AST/SGOT) 11 5-34 U/L Alanine Aminotransferase (ALT/SGPT) 8 0-55 U/L Alkaline Phosphatase 53 40-136 U/L Total Protein 5.4 L 6.4-8.2 GM/DL Albumin 3.0 L 3.2-4.5 GM/DL A/P-Cardiology Admission Diagnosis 1. Community-acquired pneumonia. This appears to be her main diagnosis. Continue antibiotics. Significant leukocytosis upon admission, now improving. Respiratory distress continues. Plan bilevel positive airway pressure ventilation intermittently for respiratory support. Mild CHF exacerbation suspected. Suggestion of volume overload by transthoracic echocardiography. Left ventricular ejection fraction 35 to 40% on transthoracic echo, with par adoxical septal motion consistent with right ventricular pacing. Cautious diuresis. IV furosemide 40 mg twice a day ordered. 2. Elevated troponin. Type II non-ST elevation myocardial infarction due to supply/demand mismatch. Overall, picture not consistent with acute coronary syndrome. Noninvasive restratification with myocardial perfusion imaging will be considered prior to discharge. For now, do not treat as acute coronary syndrome. Continue aspirin, clopidogrel, statin, beta-erin 3. History of paroxysmal atrial fibrillation. Patient not on long-term anticoagulation by choice. In the past risk of stroke without anticoagulation has been discussed with the patient. 4. Anemia. Hemoglobin slowly drifting downwards. The patient has a history of anemia. In the past no blood loss source was identified on upper and lower GI endoscopy. Baseline hemoglobin around 9. Hold systemic anticoagulation in view of falling hematocrit. I am discontinuing therapeutic dose of subcutaneous enoxaparin. We will continue DVT prophylaxis with lower dose enoxaparin. Hemoglobin 6.3 g% today. 1 unit of packed red blood cells ordered 5. 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 6. Dyslipidemia. 7. Hypertension 8. History of permanent pacemaker placement. 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 H/O alpha-1 antitrypsin deficiency-associated COPD, managed by Pulmonology 10. History of chronic kidney disease. Continue to monitor renal function AYANNA HERNANDEZ MD Dec 04, 2022 15:06
[2022-12-04] MEDS ORDERED: ENOXAPARIN 40 MG/0.4 ML (LOVENOX) SYR SC SCH (15:30)
[2022-12-04] MEDS: FUROSEMIDE 40 MG/4 ML INJ (LASIX) IVP SCH (17:06)
[2022-12-04 18:26] LABS: ABG BASE EXCESS 2.4 MMOL/L (-2.5-2.5); ABG OXYGEN SATURATION 100 % (94-100); ABG PCO2 39 MMHG (35-45); ABG PH 7.44 (7.37-7.43); ABG PO2 105 MMHG (79-93); ABG TCO2 27.6 MMOL/L (21.0-31.0)
[2022-12-04 18:28] LABS: INSPIRED O2 40; VENTILATOR NO
[2022-12-04] MEDS: MELATONIN 10 MG TABLET PO SCH (22:31)
[2022-12-04] MEDS: MIRTAZAPINE 15 MG (REMERON) TAB PO SCH (22:32)
[2022-12-04] MEDS: AtorvaSTATin TABLET 10 MG TABLET PO SCH (22:32)
[2022-12-04] MEDS: MONTELUKAST 10 MG (SINGULAIR) TAB PO SCH (22:33)
[2022-12-05] VITALS (8 sets, daily range): BP systolic 104–125; BP diastolic 62–83
[2022-12-05] MEDS: RT-ALBUTEROL/IPRATROPIUM 3 ML (DUONEB) VIAL INH SCH ×6 (02:18→22:04)
[2022-12-05 04:22] LABS: BASOPHILS # (AUTO) 0.1 10^3/uL (0.0-0.1); BASOPHILS % (AUTO) 0 % (0-10); EOSINOPHILS # (AUTO) 0.3 10^3/uL (0.0-0.3); EOSINOPHILS % (AUTO) 1 % (0-10); HEMATOCRIT 27 % (35-52); HEMOGLOBIN 8.6 g/dL (11.5-16.0); LYMPHOCYTES # (AUTO) 2.1 10^3/uL (1.0-4.0); LYMPHOCYTES % (AUTO) 10 % (12-44); MEAN CORPUSCULAR HEMOGLOBIN 23 pg (25-34); MEAN CORPUSCULAR HGB CONC 31 g/dL (32-36); MEAN CORPUSCULAR VOLUME 74 fL (80-99); MONOCYTES # (AUTO) 1.4 10^3/uL (0.0-1.0); MONOCYTES % (AUTO) 7 % (0-12); NEUTROPHILS # (AUTO) 16.4 10^3/uL (1.8-7.8); NEUTROPHILS % (AUTO) 80 % (42-75); PLATELET COUNT 446 10^3/uL (130-400); WHITE BLOOD COUNT 20.5 10^3/uL (4.3-11.0)
[2022-12-05 04:35] LABS: ALBUMIN 3.3 GM/DL (3.2-4.5); POTASSIUM 3.3 MMOL/L (3.6-5.0)
[2022-12-05 04:36] LABS: CALCIUM 8.7 MG/DL (8.5-10.1)
[2022-12-05 04:39] LABS: BILIRUBIN,TOTAL 0.8 MG/DL (0.1-1.0)
[2022-12-05 04:41] LABS: CREATININE SERUM 0.83 MG/DL (0.60-1.30)
[2022-12-05] MEDS: inSUlin ASPART (NovoLOG) 1 UNIT/0.01 ML (CHARGE PER UNIT) SC SCH ×4 (05:58→20:41)
[2022-12-05] MEDS: PIPERACILLIN SODIUM/TAZOBACTAM 4.5 GM in NS (IVPB) 100 ML IV SCH ×3 (06:41→22:18)
[2022-12-05] MEDS: FUROSEMIDE 40 MG/4 ML INJ (LASIX) IVP SCH (06:41)
[2022-12-05] MEDS: KCL 20 MEQ TAB (K-DUR) PO SCH (07:43)
[2022-12-05] MEDS: POTASSIUM CL 10MEQ/50ML IVPB 50 ML IV SCH (07:43)
[2022-12-05] MEDS: MAGNESIUM 1 GM/100 ML IVPB 100 ML IV SCH ×3 (08:05→09:53)
[2022-12-05] MEDS ORDERED: KCL 20 MEQ TAB (K-DUR) PO NR ×3 (09:00→11:00)
[2022-12-05] MEDS: SENNOSIDES 8.6 MG (SENOKOT) TAB PO SCH ×2 (09:04→21:07)
[2022-12-05] MEDS: DOCUSATE SODIUM 100 MG (COLACE) CAP PO SCH ×2 (09:04→21:07)
[2022-12-05] MEDS: FLUTICASONE NASAL SPRAY (FLONASE) 16 GM BTL NS SCH ×2 (09:44→21:06)
[2022-12-05] MEDS: LORATADINE (CLARITIN) 10 MG TAB PO SCH (09:44)
[2022-12-05] MEDS: OXYBUTYNIN (DITROPAN) 5 MG TAB PO SCH ×2 (09:44→21:07)
[2022-12-05] MEDS: PANTOPRAZOLE 40 MG (PROTONIX) TAB PO SCH (09:44)
[2022-12-05] MEDS: LORazepam 0.5 MG (ATIVAN) TABLET PO SCH ×2 (09:44→21:07)
[2022-12-05] MEDS: ASPIRIN 81 MG CHEW (CHILDREN'S ASA) PO SCH (09:44)
[2022-12-05] MEDS: CLOPIDOGREL 75 MG (PLAVIX) TABLET PO SCH (09:44)
[2022-12-05] MEDS: RIVASTIGMINE 1.5 MG (EXELON) CAP PO SCH ×2 (09:53→21:07)
[2022-12-05] MEDS: QUEtiapine 100 MG (SEROquel) TAB IMMEDIATE RELEASE PO SCH ×3 (09:53→22:17)
--- NOTE | 2022-12-05 09:58 | Physical Therapy Daily Note ---
PT Daily Note-Current Subjective Patient incontinent BM requiring dependent assist to cleanse and change. Patient is unaware of her incontinence and then states she does this at home. RN was notified of patient's incontinence with therapy performing cleansing and changing of patient. Pain Section J - Health Conditions 1. Rarely or not at all 2. Occasionally 3. Frequently 4. Almost constantly 8. Unable to answer Pain Effect on Sleep: 8 Pain Interference with Therapy: 8 Pain Interference w/Day-to-Day: 8 Mental Status Patient Orientation: Confused Attachments: Central Line, Oxygen, Woodson Catheter Transfers SCALE: Activities may be completed with or without assistive devices. 5-Sfvnwypyao-qrvflqh completes the activity by him/herself with no assistance from a helper. 5-Set-up or Clean-up Assistance-helper sets up or cleans up; patient completes activity. [place] assists only prior to or following the activity. 4-Supervision or Touching Assistance-helper provides verbal cues and/or touching/steadying and/or contact guard assistance as patient completes activity. Assistance may be provided throughout the activity or intermittently. 3-Partial/Moderate Assistance-helper does LESS THAN HALF the effort. [place] lifts, holds or supports trunk or limbs, but provides less than half the effort. 2-Substantial/Maximal Assistance-helper does MORE THAN HALF the effort. [place] lifts or holds trunk or limbs and provides more than half the effort. 2-Fvmxuzojx-gvjbbd does ALL the effort. Patient does none of the effort to complete the activity. Or, the assistance of 2 or more helpers is required for the patient to complete the activity. If activity was not attempted, code reason: 7-Patient Refused. 9-Not Applicable-not attempted and the patient did not perform the activity before the current illness, exacerbation or injury. 10-Not Attempted due to Environmental Limitations-(lack of equipment, weather restraints, etc.). 88-Not Attempted due to Medical Conditions or Safety Concerns. Lying to Sitting/Side of Bed(Q: 4 Sit to Stand (QC): 3 Chair/Gei-nb-Dbkrc Xfer(QC): 3 Toilet Transfer (QC): 3 Weight Bearing Right Lower Extremity: Right Full Weight Bearing Left Lower Extremity: Left Full Weight Bearing Gait Training Distance: 10' Walk 10 feet (QC): 3 Gait Assistive Device: FWW slow shuffle gait sequence Assessment Patient up in recliner with breakfast in situ. Patient incontinent BM and, per patient, is unaware of BM urge. PT Senior Care Goals Senior Care Goals PT Veterinary Practice Manager Goals Time Frame: Jan 03, 2023 Roll Left & Right (QC): 6 Sit to Lying (QC): 6 Lying-Sitting on Side/Bed(QC): 6 Sit to Stand (QC): 6 Chair/Bqk-qq-Xrsvb Xfer(QC): 4 Toilet Transfer (QC): 4 Does the Patient Walk: Yes Walk 10 feet (QC): 4 Walk 50ft with 2 Turns (QC): 3 Walk 150 ft (QC): 3 PT Plan Treatment/Plan Treatment Plan: Continue Plan of Care Treatment Plan: Bed Mobility, Education, Functional Activity Leonel, Functional Strength, Group Therapy, Gait, Safety, Therapeutic Exercise, Transfers Treatment Duration: Jan 03, 2023 Frequency: 6 times per week Estimated Hrs Per Day: .25 hour per day Patient and/or Family Agrees t: Yes Time Time In: 920 Time Out: 935 DATE: Dec 05, 2022 Total Billed Treatment Time: 15 Total Billed Treatment 1 visit FA 15 min INDIRA PEREZ PT Dec 05, 2022 09:58
--- NOTE | 2022-12-05 10:10 | Occupational Ther Daily Note ---
OT Current Status-Daily Note Subjective OT arrived prior to 830 to complete session, Patient BM incont, OT notified nursing staff. OT arrived second time for session and patient again bowel incont. OT set up BSC and gathered toileting supplies and pad for recliner. Patient reports she wants a diaper and sometimes is incont at home. Pain Numeric Pain Scale: 3 Location Body Site: Genital Pain Description: Burning (with hygiene, RED areas) Mental Status/Objective Patient Orientation: Person, Place Attachments: [place]son Catheter, Oxygen, Telemetry Patient responses to OT in childlike voice and low volume ADL-Treatment Gown is changed and no brief is applied, red areas to keenan skin noted. Therapy Code Descriptions/Definitions Functional Assumption Measure: 0=Not Assessed/NA 4=Minimal Assistance 1=Total Assistance 5=Supervision or Setup 2=Maximal Assistance 6=Modified Assumption 3=Moderate Assistance 7=Complete IndependenceSCALE: Activities may be completed with or without assistive devices. 4-Nivdtnhsae-eehilvn completes the activity by him/herself with no assistance from a helper. 5-Set-up or Clean-up Assistance-helper sets up or cleans up; patient completes activity. [place] assists only prior to or following the activity. 4-Supervision or Touching Assistance-helper provides verbal cues and/or touching/steadying and/or contact guard assistance as patient completes activity. Assistance may be provided throughout the activity or intermittently. 3-Partial/Moderate Assistance-helper does LESS THAN HALF the effort. [place] lifts, holds or supports trunk or limbs, but provides less than half the effort. 2-Substantial/Maximal Assistance-helper does MORE THAN HALF the effort. [place] lifts or holds trunk or limbs and provides more than half the effort. 1-Utvcjbjuh-wxcgxt does ALL the effort. Patient does none of the effort to complete the activity. Or, the assistance of 2 or more helpers is required for the patient to complete the activity. If activity was not attempted, code reason: 7-Patient Refused. 9-Not Applicable-not attempted and the patient did not perform the activity bef ore the current illness, exacerbation or injury. 10-Not Attempted due to Environmental Limitations-(lack of equipment, weather r estraints, etc.). 88-Not Attempted due to Medical Conditions or Safety Concerns. 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 2=Patient will verbalize/demonstrate understanding of assistive devices/modifications for ADL. 3=Patient will improve strength/tolerance for activity to enable patient to perform ADL's. OT Education/Plan Discharge Recommendations Plan/Recommendations: Continue POC Therapy Discharge Recommendati: Post Acute OT Treatment Plan/Plan of Care Treatment,Training & Education: Yes Patient would benefit from OT for education, treatment and training to promote independence in ADL's, mobility, safety and/or upper extremity function for ADL's. Plan of Care: ADL Retraining, Concurrent Therapy, Functional Mobility, Group Exercise/Act as Ind, UE Funct Exercise/Act Treatment Duration: Dec 06, 2022 Frequency: 3 times per week (3-5 times per week) Estimated Hrs Per Day: .25 hour per day Agreement: Yes Rehab Potential: Fair Time Start Time: 09:14 Stop Time: 09:37 DATE: Dec 05, 2022 Total Time Billed (hr/min): 23 Billed Treatment Time ADL 23 min PARVIZ HERRERA OT Dec 05, 2022 10:10
--- NOTE | 2022-12-05 13:21 | Progress Note - Hospitalist ---
Subjective HPI/CC On Admission Date Seen by Provider: Dec 05, 2022 Pt is an 82yoCF with a PMH of recent admission for pneumonia, HTN, HLD, COPD, AFib, PE, GI bleed who presented to the ER due to SOB. She was discharged from the hospital on 11/28 after being treated for pneumonia, She was found to have sats of 92% by home health with some softer blood pressures by home health. She was found to have persistent pneumonia and elevated troponin. She was admitted for further management. This morning she reports she is feeling better and breathing better. Discussed her lab findings and need for further work up of her heart. Subjective/Events-last exam Pt reports feeling better today. Would like BiPAP off. Objective Exam Vital Signs Vital Signs Date Time Temp Pulse Resp B/P (MAP) Pulse Ox O2 Delivery O2 Flow Rate FiO2 12/05/22 12:51 73 12/05/22 11:48 36.1 20 105/74 (84) 96 12/05/22 08:18 Nasal Cannula 2.00 12/04/22 18:44 40 Capillary Refill : Less Than 3 Seconds General Appearance: No Apparent Distress, Anxious, Chronically ill, Obese Respiratory: No Accessory Muscle Use; No Crackles; Decreased Breath Sounds, Other (on BiPAP but wanting it off) Cardiovascular: Regular Rate, Rhythm, No Murmur Gastrointestinal: Normal Bowel Sounds, Non Tender, Soft Neurologic/Psychiatric: Alert, Oriented x3 Results/Procedures Lab Laboratory Tests 12/05/22 04:10 Patient resulted labs reviewed. Imaging: Reviewed Imaging Report Assessment/Plan Assessment and Plan Assess & Plan/Chief Complaint Recurrent Pneumonia Acute on Chronic Respiratory Failure Continue IV abx WBC up slightly today Cultures with NGTD Wean oxygen as able Pulm consulted, spoke with Dr Perry NSTEMI HTN A fib CHF Cardiology consulted, appreciate recs Monitor on Telemetry IV lasix- net neutral for yesterday Hyponatremia Up to 131 today Baseline around 128-130 Fluid restriction Likely acutely worsened by SIADH from pneumonia trend Chronic anemia h/o GIB Baseline around 9 Hgb up to 8.6 after 2 units Hold lovenox- resume tomorrow if stable TRACEE FLETCHER MD Dec 05, 2022 13:21
--- NOTE | 2022-12-05 14:24 | Cardiology Progress Note ---
Subjective Time Seen by Provider: 12:30 Subjective/Events-last exam More comfortable today. Less tachypneic. She was lying supine without oxygen at the time of my examination, saturating greater than 90%. Denies chest pain 82-year-old female with a PMH of recent admission for pneumonia, HTN, HLD, COPD with alpha 1 antitrypsin deficiency, AFib, sick sinus syndrome with permanent pacemaker placement, nonischemic cardiomyopathy PE, GI bleed, who presented to the ER due to SOB. She was discharged from the hospital on 11/28 after being treated for pneumonia, She was found to have sats of 92% by home health with some softer blood pressures by home health. She was found to have persistent pneumonia and elevated troponin. Troponin peaked to 1.5 and subsequently downtrending at 0.68. The only chest discomfort that she complained of was pleuritic consistent with her respiratory distress and diagnosis of pneumonia. This pain has resolved. EKG shows sinus versus atrial paced rhythm, with ventricular pacing. Unable to interpret the EKG further. Review of Systems As mentioned in history of present illness Exam Vital Signs Vital Signs Date Time Temp Pulse Resp B/P (MAP) Pulse Ox O2 Delivery O2 Flow Rate FiO2 12/05/22 12:51 73 12/05/22 11:48 36.1 20 105/74 (84) 96 12/05/22 08:18 Nasal Cannula 2.00 12/04/22 18:44 40 Physical Exam Improved air entry. Less bronchospasm noted today S1 and S2 are regular. No murmur Lower extremity edema resolved Jugular venous distention difficult to assess Nonfocal neurological examination IMAGING: Chest x-ray 12/04/2022 reviewed, and compared to chest x-ray from 11/30/2022 IMPRESSION: 1. Bibasilar airspace opacities with likely small left pleural effusion. Aeration appears similar to the prior exam. 2. Mild cardiomegaly. TTE 12/03/2022 Left ventricular ejection fraction moderately reduced at 35 to 40% Paradoxical interventricular septal movement most likely due to right ventricular pacing Pulmonary artery systolic pressure estimated at 50 to 55 mmHg IVC mildly dilated but with normal respirophasic changes No pericardial effusion TTE 01/2020 Left ventricular ejection fraction 55 to 65% Pulmonary artery systolic pressure estimated at 35 to 40 mmHg Cardiac catheterization July 2019 Mild coronary artery disease. Left ventricle ejection fraction estimated at 35%, with paradoxical septal motion noted Labs Laboratory Tests Test 12/04/22 16:08 12/04/22 18:05 12/04/22 20:46 12/05/22 04:10 Range/Units Glucometer 187 H 127 H 70-110 MG/DL Blood Gas Puncture Site RIGHT RADIAL Blood Gas Patient Temperature 36.0 Arterial Blood pH 7.44 H 7.37-7.43 Arterial Blood Partial Pressure CO2 39 35-45 MMHG Arterial Blood Partial Pressure O2 105 H 79-93 MMHG Arterial Blood HCO3 26 23-27 MMOL/L Arterial Blood Total CO2 27.6 21.0-31.0 MMOL/L Arterial Blood Oxygen Saturation 100 94-100 % Arterial Blood Base Excess 2.4 -2.5-2.5 MMOL/L Kushal Test NA Blood Gas Ventilator Setting NO Blood Gas Inspired Oxygen 40 White Blood Count 20.5 H 4.3-11.0 10^3/uL Red Blood Count 3.70 L 3.80-5.11 10^6/uL Hemoglobin 8.6 #L 11.5-16.0 g/dL Hematocrit 27 L 35-52 % Mean Corpuscular Volume 74 L 80-99 fL Mean Corpuscular Hemoglobin 23 L 25-34 pg Mean Corpuscular Hemoglobin Concent 31 L 32-36 g/dL Red Cell Distribution Width 19.1 H 10.0-14.5 % Platelet Count 446 H 130-400 10^3/uL Mean Platelet Volume 9.0 9.0-12.2 fL Immature Granulocyte % (Auto) 2 % Neutrophils (%) (Auto) 80 H 42-75 % Lymphocytes (%) (Auto) 10 L 12-44 % Monocytes (%) (Auto) 7 0-12 % Eosinophils (%) (Auto) 1 0-10 % Basophils (%) (Auto) 0 0-10 % Neutrophils # (Auto) 16.4 H 1.8-7.8 10^3/uL Lymphocytes # (Auto) 2.1 1.0-4.0 10^3/uL Monocytes # (Auto) 1.4 H 0.0-1.0 10^3/uL Eosinophils # (Auto) 0.3 0.0-0.3 10^3/uL Basophils # (Auto) 0.1 0.0-0.1 10^3/uL Immature Granulocyte # (Auto) 0.3 H 0.0-0.1 10^3/uL Sodium Level 131 L 135-145 MMOL/L Potassium Level 3.3 L 3.6-5.0 MMOL/L Chloride Level 96 L 98-107 MMOL/L Carbon Dioxide Level 25 21-32 MMOL/L Anion Gap 10 5-14 MMOL/L Blood Urea Nitrogen 8 7-18 MG/DL Creatinine 0.83 0.60-1.30 MG/DL Estimat Glomerular Filtration Rate 71 BUN/Creatinine Ratio 10 Glucose Level 104 70-105 MG/DL Calcium Level 8.7 8.5-10.1 MG/DL Corrected Calcium 9.3 8.5-10.1 MG/DL Total Bilirubin 0.8 0.1-1.0 MG/DL Aspartate Amino Transf (AST/SGOT) 24 5-34 U/L Alanine Aminotransferase (ALT/SGPT) 12 0-55 U/L Alkaline Phosphatase 57 40-136 U/L Total Protein 6.0 L 6.4-8.2 GM/DL Albumin 3.3 3.2-4.5 GM/DL Test 12/05/22 07:40 12/05/22 10:44 Range/Units Magnesium Level 1.9 1.6-2.4 MG/DL Glucometer 176 H 70-110 MG/DL A/P-Cardiology Admission Diagnosis 1. Community-acquired pneumonia. Improved. Continue antibiotics. Significant leukocytosis upon admission, initially improved, but now white cell count again at 20,000. She is on IV piperacillin/tazobactam. Antibiotics as per primary service. Respiratory distress improved. Needed bilevel positive airway pressure ventilation intermittently for respiratory support earlier during this admission. Mild CHF exacerbation suspected but this appears to be well compensated at present. Suggestion of volume overload by transthoracic echocardiography earlier during this admission. Left ventricular ejection fraction 35 to 40% on transthoracic echo, with paradoxical septal motion consistent with right ventricular pacing. Changed to oral maintenance diuretics. 2. Elevated troponin. Type II non-ST elevation myocardial infarction due to supply/demand mismatch. Overall, picture not consistent with acute coronary syndrome. Noninvasive restratification with myocardial perfusion imaging will be considered prior to discharge. For now, do not treat as acute coronary syndrome. Continue aspirin, clopidogrel, statin, beta-erin 3. History of paroxysmal atrial fibrillation. Patient not on long-term anticoagulation by choice. In the past risk of stroke without anticoagulation has been discussed with the patient. 4. Anemia. Hemoglobin slowly drifting downwards. The patient has a history of anemia. In the past no blood loss source was identified on upper and lower GI endoscopy. Baseline hemoglobin around 9. We will continue DVT prophylaxis with lower dose enoxaparin. Hemoglobin 6.3 g% on 12/04/2022. 2 units of packed red blood cells given. Hemoglobin will be followed 5. 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 6. Dyslipidemia. 7. Hypertension 8. H/O alpha-1 antitrypsin deficiency-associated COPD, managed by Pulmonology 9. History of chronic kidney disease. Continue to monitor renal function. BUN and creatinine stable during this admission AYANNA HERNANDEZ MD Dec 05, 2022 14:24
[2022-12-05] MEDS: FLUTICASONE/VILANTEROL 100 MCG 14'S (BREO) IH SCH (14:30)
--- NOTE | 2022-12-05 17:30 | Pulmonary Progress Note ---
Subjective Date Seen by a Provider: Dec 05, 2022 Time Seen by a Provider: 17:11 Subjective/Events-last exam (Tele-pulmonary Physician , consultation as per request of PCP Service provided via interactive audio and video telecommunications [employer] system to a patient admitted to [facility]. Available chart/ vitals / labs / Images reviewed H&P is from ER notes Patient's information available about PMH, Shx, Fhx allergy reviewed inEMR. ROS as per chart and RN report A/Plan Hypoxia/ resp insufficiency - multifactorial - cxr still looks " wet" with interstitial edema and effusion -patient has EF 40 % and somne degree of puln HTN on ECHO - agree with dieresis as per cards - very weak cough - might have small mucous plugging - start IS and cont nebs - discussed with RN - try off biapap tonight - will follow tomorrow h/o COPD - PFT from 2017 with mild onset defect and some restriction , and CT chest 2019 - no sign emphysema - cont nebs and ICS /LABA- no indication for steroids now Leukocytosis /PNA - clinically does not appears having a new infection - diarrhea most likely due to laxatives - to follow - would not change abx now - low risk for aspiration - nut will need to be cautious Dyspnea - will check CPK and phos level - muscular wekness is suspected with her weakness , also discussed po intale wit patient and RN Plans in collaboration with bedside consultants and IM MDs. Discussed with RN to reach out if any questions or concerns Sepsis Event Evaluation Height, Weight, BMI Height: 5'3.00" Weight: 150lbs. 0.0oz. [id number]; 37.91 BMI Method:Stated Exam Exam Patient acknowledged, consented, and participated in this virtual visit which was conducted using real time audio/video Vital Signs Date Time Temp Pulse Resp B/P (MAP) Pulse Ox O2 Delivery O2 Flow Rate FiO2 12/05/22 15:53 36.0 74 17 125/79 (94) 96 Room Air 12/05/22 12:51 73 12/05/22 11:48 36.1 72 20 105/74 (84) 96 12/05/22 08:18 Nasal Cannula 2.00 12/05/22 08:00 94 Nasal Cannula 2.00 12/05/22 07:45 36.0 79 17 122/68 (86) 100 NIV Bilevel 12/05/22 07:00 67 12/05/22 06:57 60 25 100 30.00 12/05/22 04:15 36.0 62 22 109/68 (82) 99 NIV Bilevel 40.00 12/05/22 02:19 62 23 100 30.00 12/05/22 01:00 64 12/05/22 00:00 36.0 60 26 116/62 (80) 98 NIV Bilevel 40.00 12/04/22 22:40 60 26 98 40.00 12/04/22 22:15 86 24 115/76 93 Nasal Cannula 1.00 12/04/22 21:00 98 Nasal Cannula 1.00 12/04/22 20:23 36.0 71 33 115/76 (89) 94 Nasal Cannula 1.00 12/04/22 19:01 36.4 68 27 115/70 100 Room Air 12/04/22 19:00 70 12/04/22 18:44 36.4 70 18 113/73 100 NIV Bilevel 40 12/04/22 17:57 81 28 100 40.00 I & O 12/05/22 07:00 Intake Total 1200 ml Output Total 951 ml Balance 249 ml Height & Weight Height: 5'3.00" Weight: 150lbs. 0.0oz. [id number]; 37.91 BMI Method:Stated General Appearance: No Apparent Distress, Anxious, Chronically ill, Obese Respiratory: No Accessory Muscle Use; No Crackles; Decreased Breath Sounds, Other (on BiPAP but wanting it off) Cardiovascular: Regular Rate, Rhythm, No Murmur Capillary Refill: Less Than 3 Seconds Gastrointestinal: normal bowel sounds, non tender, soft, no organomegaly Extremity: No Calf Tenderness, No Pedal Edema Neurologic/Psychiatric: Alert, Oriented x3 Results Lab Laboratory Tests 12/04/22 04:02 12/05/22 04:10 Assessment/Plan Assessment/Plan 1 MT STRONG MD Dec 05, 2022 17:30
[2022-12-05] MEDS: MIRTAZAPINE 15 MG (REMERON) TAB PO SCH (21:07)
[2022-12-05] MEDS: AtorvaSTATin TABLET 10 MG TABLET PO SCH (21:07)
[2022-12-05] MEDS: MONTELUKAST 10 MG (SINGULAIR) TAB PO SCH (21:07)
[2022-12-05] MEDS: MELATONIN 10 MG TABLET PO SCH (21:07)
[2022-12-05] MEDS: ACETAMINOPHEN 325 MG TABLET PO PRN (21:08)
[2022-12-06 00:05] VITALS: BP 118/70
[2022-12-06] MEDS: RT-ALBUTEROL/IPRATROPIUM 3 ML (DUONEB) VIAL INH SCH ×6 (02:08→22:29)
[2022-12-06] MEDS: ACETAMINOPHEN 325 MG TABLET PO PRN (03:48)
[2022-12-06 04:00] VITALS: BP 123/73
[2022-12-06 05:45] LABS: BASOPHILS # (AUTO) 0.1 10^3/uL (0.0-0.1); BASOPHILS % (AUTO) 0 % (0-10); EOSINOPHILS # (AUTO) 0.5 10^3/uL (0.0-0.3); EOSINOPHILS % (AUTO) 2 % (0-10); HEMATOCRIT 29 % (35-52); HEMOGLOBIN 8.9 g/dL (11.5-16.0); LYMPHOCYTES # (AUTO) 2.1 10^3/uL (1.0-4.0); LYMPHOCYTES % (AUTO) 9 % (12-44); MEAN CORPUSCULAR HEMOGLOBIN 23 pg (25-34); MEAN CORPUSCULAR HGB CONC 31 g/dL (32-36); MEAN CORPUSCULAR VOLUME 76 fL (80-99); MEAN PLATELET VOLUME 9.1 fL (9.0-12.2); MONOCYTES # (AUTO) 1.3 10^3/uL (0.0-1.0); MONOCYTES % (AUTO) 6 % (0-12); NEUTROPHILS # (AUTO) 19.8 10^3/uL (1.8-7.8); NEUTROPHILS % (AUTO) 82 % (42-75); PLATELET COUNT 474 10^3/uL (130-400); WHITE BLOOD COUNT 24.1 10^3/uL (4.3-11.0)
[2022-12-06] MEDS: inSUlin ASPART (NovoLOG) 1 UNIT/0.01 ML (CHARGE PER UNIT) SC SCH ×4 (06:00→22:43)
[2022-12-06] MEDS: MAGNESIUM 1 GM/100 ML IVPB 100 ML IV SCH (06:00)
[2022-12-06] MEDS: KCL 20 MEQ TAB (K-DUR) PO SCH (06:00)
[2022-12-06] MEDS: POTASSIUM CL 10MEQ/50ML IVPB 50 ML IV SCH (06:00)
[2022-12-06 06:01] LABS: ALBUMIN 3.5 GM/DL (3.2-4.5); POTASSIUM 3.6 MMOL/L (3.6-5.0)
[2022-12-06 06:03] LABS: CALCIUM 9.1 MG/DL (8.5-10.1)
[2022-12-06 06:04] LABS: TOTAL PROTEIN 6.2 GM/DL (6.4-8.2)
[2022-12-06 06:06] LABS: BILIRUBIN,TOTAL 0.7 MG/DL (0.1-1.0)
[2022-12-06 06:07] LABS: PHOSPHORUS 2.1 MG/DL (2.3-4.7)
[2022-12-06 06:08] LABS: CREATININE SERUM 0.77 MG/DL (0.60-1.30)
[2022-12-06] MEDS: PIPERACILLIN SODIUM/TAZOBACTAM 4.5 GM in NS (IVPB) 100 ML IV SCH ×2 (06:09→14:16)
[2022-12-06] MEDS ORDERED: KCL 20 MEQ TAB (K-DUR) PO ONE (06:30)
[2022-12-06 08:00] VITALS: BP 133/69
[2022-12-06] MEDS: PANTOPRAZOLE 40 MG (PROTONIX) TAB PO SCH (08:47)
[2022-12-06] MEDS: CLOPIDOGREL 75 MG (PLAVIX) TABLET PO SCH (08:47)
[2022-12-06] MEDS: OXYBUTYNIN (DITROPAN) 5 MG TAB PO SCH ×2 (08:47→22:41)
[2022-12-06] MEDS: LORATADINE (CLARITIN) 10 MG TAB PO SCH (08:48)
[2022-12-06] MEDS: LORazepam 0.5 MG (ATIVAN) TABLET PO SCH ×2 (08:48→22:42)
[2022-12-06] MEDS: FLUTICASONE NASAL SPRAY (FLONASE) 16 GM BTL NS SCH ×2 (08:48→22:44)
[2022-12-06] MEDS: ASPIRIN 81 MG CHEW (CHILDREN'S ASA) PO SCH (08:48)
[2022-12-06] MEDS: TORSEMIDE 10 MG (DEMADEX) TABLET PO SCH (08:51)
[2022-12-06] MEDS: RIVASTIGMINE 1.5 MG (EXELON) CAP PO SCH ×2 (08:51→22:41)
[2022-12-06] MEDS: QUEtiapine 100 MG (SEROquel) TAB IMMEDIATE RELEASE PO SCH ×3 (08:52→22:42)
[2022-12-06] MEDS: SENNOSIDES 8.6 MG (SENOKOT) TAB PO SCH ×2 (08:59→21:35)
[2022-12-06] MEDS: DOCUSATE SODIUM 100 MG (COLACE) CAP PO SCH ×2 (08:59→21:35)
--- NOTE | 2022-12-06 09:26 | Physical Therapy Daily Note ---
PT Daily Note-Current Subjective Pt supine in bed upon arrival to room, agreeable to PT treatment, reports she wants to go home. Pain Section J - Health Conditions 1. Rarely or not at all 2. Occasionally 3. Frequently 4. Almost constantly 8. Unable to answer Pain Effect on Sleep: 8 Pain Interference with Therapy: 8 Pain Interference w/Day-to-Day: 8 Appearance Following session, pt up in recliner with call light, tray table and phone in reach. Eating breakfast. All needs met Mental Status Patient Orientation: Person, Place Transfers SCALE: Activities may be completed with or without assistive devices. 8-Uabiczoogz-dqldgxh completes the activity by him/herself with no assistance from a helper. 5-Set-up or Clean-up Assistance-helper sets up or cleans up; patient completes activity. [place] assists only prior to or following the activity. 4-Supervision or Touching Assistance-helper provides verbal cues and/or touching/steadying and/or contact guard assistance as patient completes activity. Assistance may be provided throughout the activity or intermittently. 3-Partial/Moderate Assistance-helper does LESS THAN HALF the effort. [place] lifts, holds or supports trunk or limbs, but provides less than half the effort. 2-Substantial/Maximal Assistance-helper does MORE THAN HALF the effort. [place] lifts or holds trunk or limbs and provides more than half the effort. 4-Dquvdblml-avrqes does ALL the effort. Patient does none of the effort to complete the activity. Or, the assistance of 2 or more helpers is required for the patient to complete the activity. If activity was not attempted, code reason: 7-Patient Refused. 9-Not Applicable-not attempted and the patient did not perform the activity before the current illness, exacerbation or injury. 10-Not Attempted due to Environmental Limitations-(lack of equipment, weather restraints, etc.). 88-Not Attempted due to Medical Conditions or Safety Concerns. Roll Left & Right (QC): 3 Lying to Sitting/Side of Bed(Q: 3 Sit to Stand (QC): 3 Weight Bearing Right Lower Extremity: Right Full Weight Bearing Left Lower Extremity: Left Full Weight Bearing Gait Training Gait Assistive Device: FWW Pt ambulates few steps to sit in the chair with mod A, overall steady gait; however, poor safety awareness. Assessment Current Status: Fair Progress Pt demonstrated poor safety awareness with gait today, trying to park the walker and turn to sit pretty far from the chair PT Kitchen Operator Goals Senior Care Goals PT Senior Care Goals Time Frame: Jan 03, 2023 Roll Left & Right (QC): 6 Sit to Lying (QC): 6 Lying-Sitting on Side/Bed(QC): 6 Sit to Stand (QC): 6 Chair/Mzz-lz-Gasrd Xfer(QC): 4 Toilet Transfer (QC): 4 Does the Patient Walk: Yes Walk 10 feet (QC): 4 Walk 50ft with 2 Turns (QC): 3 Walk 150 ft (QC): 3 PT Plan Problem List Problem List: Activity Tolerance, Functional Strength, Safety, Balance, Gait, Transfer, Bed Mobility, ROM Treatment/Plan Treatment Plan: Continue Plan of Care Treatment Plan: Bed Mobility, Education, Functional Activity Leonel, Functional Strength, Group Therapy, Gait, Safety, Therapeutic Exercise, Transfers Treatment Duration: Jan 03, 2023 Frequency: 6 times per week Estimated Hrs Per Day: .25 hour per day Patient and/or Family Agrees t: Yes Time Time In: 828 Time Out: 842 DATE: Dec 06, 2022 Total Billed Treatment Time: 14 Total Billed Treatment 1 visit FA (14') LISETTE EGAN PT Dec 06, 2022 09:26
[2022-12-06] MEDS: FLUTICASONE/VILANTEROL 100 MCG 14'S (BREO) IH SCH (09:54)
--- NOTE | 2022-12-06 10:35 | Progress Note - Hospitalist ---
Subjective HPI/CC On Admission Date Seen by Provider: Dec 06, 2022 Pt is an 82yoCF with a PMH of recent admission for pneumonia, HTN, HLD, COPD, AFib, PE, GI bleed who presented to the ER due to SOB. She was discharged from the hospital on 11/28 after being treated for pneumonia, She was found to have sats of 92% by home health with some softer blood pressures by home health. She was found to have persistent pneumonia and elevated troponin. She was admitted for further management. This morning she reports she is feeling better and breathing better. Discussed her lab findings and need for further work up of her heart. Subjective/Events-last exam Pt reports doing better today. took oxygen off and hadn't put it back on but sats 95% so told her that was ok. She is frustrated with the fluid restriction. Discussed indication but that since labs are stable and near her baseline we will loosen it some. Mentation much improved today as she tells me to tell my parents hi (whom she knew briefly 4 years ago). Objective Exam Vital Signs Vital Signs Date Time Temp Pulse Resp B/P (MAP) Pulse Ox O2 Delivery O2 Flow Rate FiO2 12/06/22 08:00 36.0 60 24 133/69 (90) 95 Nasal Cannula 1.00 12/04/22 18:44 40 Capillary Refill : Less Than 3 Seconds General Appearance: No Apparent Distress, Chronically ill Respiratory: Lungs Clear, No Respiratory Distress, Other (off oxygen) Cardiovascular: Regular Rate, Rhythm Gastrointestinal: Normal Bowel Sounds, Soft Neurologic/Psychiatric: Alert, Oriented x3 Results/Procedures Lab Laboratory Tests 12/06/22 05:05 Patient resulted labs reviewed. Imaging: Reviewed Imaging Report Assessment/Plan Assessment and Plan Assess & Plan/Chief Complaint Recurrent Pneumonia Acute on Chronic Respiratory Failure Continue IV abx WBC further today so will repeat cultures but clinically appears much better so hesitant to much changes to abx regimen Cultures with NGTD Off oxygen today Pulm consulted, spoke with Dr Perry NSTEMI HTN A fib CHF Cardiology consulted, appreciate recs Monitor on Telemetry IV lasix DC-ed -510 yesterday Hyponatremia 129 today- as baseline Baseline around 128-130 Fluid restriction, increase restriction today per patient request as Na stable Likely acutely worsened by SIADH from pneumonia and CHF trend Chronic anemia h/o GIB Baseline around 9 Hgb up to 8.9 Resume lovenox DVT ppx: Loveponchox TRACEE FLETCHER MD Dec 06, 2022 10:34
--- NOTE | 2022-12-06 10:35 | Progress Note - Cardiology ---
Cardiology SOAP Progress Note Subjective: No cp or palp or syncope Shortness of breath improved but not resolved Gen weakness and malaise Denies focal weakness No n/v Objective: I&O/Vital Signs 12/06/22 12/06/22 12/06/22 12/06/22 00:05 01:00 02:09 04:00 Temp 36.0 36.0 Pulse 70 69 79 Resp 24 32 B/P (MAP) 118/70 (86) 123/73 (90) Pulse Ox 96 96 96 O2 Delivery Nasal Cannula Nasal Cannula Nasal Cannula O2 Flow Rate 1.00 1.00 1.00 12/06/22 12/06/22 12/06/22 12/06/22 07:00 07:08 08:00 08:00 Temp 36.0 Pulse 60 60 Resp 24 B/P (MAP) 133/69 (90) Pulse Ox 92 94 95 O2 Delivery Nasal Cannula Nasal Cannula Nasal Cannula O2 Flow Rate 1.00 1.00 1.00 12/06/22 00:00 Intake Total 1300 ml Output Total 2000 ml Balance -700 ml Weight (Pounds): 150 Weight (Ounces): 0.0 Weight (Calculated Kilograms): 68.813772 Constitutional: AAO x 3, well-developed, well-nourished Respiratory: No accessory muscle use; chest expansion is symmetric, chest is bilaterally symmetric, other (fair air entry, prolonged exp) Cardiovascular: regular rate-rhythm, S1 and S2, systolic murmur (soft FELIPA at card base) Gastrointestional: No tender; soft; No guarding, No rebound; audible bowel sounds Extremities: No clubbing, No cyanosis, No significant edema Neurologic/Psychiatric: oriented x 3, other (moves all limbs equally) Skin: normal color, warm/dry Results/Procedures: Labs Laboratory Tests 12/05/22 10:44: Glucometer 176H 12/05/22 16:02: Glucometer 157H 12/05/22 20:37: Glucometer 141H 12/06/22 05:05: White Blood Count 24.1H, Red Blood Count 3.84, Hemoglobin 8.9L, Hematocrit 29L, Mean Corpuscular Volume 76L, Mean Corpuscular Hemoglobin 23L, Mean Corpuscular Hemoglobin Concent 31L, Red Cell Distribution Width 19.7H, Platelet Count 474H, Mean Platelet Volume 9.1, Immature Granulocyte % (Auto) 1, Neutrophils (%) (Auto) 82H, Lymphocytes (%) (Auto) 9L, Monocytes (%) (Auto) 6, Eosinophils (%) (Auto) 2, Basophils (%) (Auto) 0, Neutrophils # (Auto) 19.8H, Lymphocytes # (Auto) 2.1, Monocytes # (Auto) 1.3H, Eosinophils # (Auto) 0.5H, Basophils # (Auto) 0.1, Immature Granulocyte # (Auto) 0.3H, Sodium Level 129L, Potassium Level 3.6, Chloride Level 94L, Carbon Dioxide Level 23, Anion Gap 12, Blood Urea Nitrogen 7, Creatinine 0.77, Estimat Glomerular Filtration Rate 78, BUN/Creatinine Ratio 9, Glucose Level 128H, Calcium Level 9.1, Corrected Calcium 9.5, Phosphorus Level 2.1L, Total Bilirubin 0.7, Aspartate Amino Transf (AST/SGOT) 16, Alanine Aminotransferase (ALT/SGPT) 9, Alkaline Phosphatase 59, Total Creatine Kinase 45, Total Protein 6.2L, Albumin 3.5 Microbiology 11/30/22 Blood Culture - Final, Complete No growth Laboratory Tests 12/05/22 04:10 12/06/22 05:05 A/P: Assessment: 1. Community-acquired pneumonia. Significant leukocytosis - managed by Dr Wright 2. Mild CHF exacerbation suspected but this appears to be well compensated at present. - Suggestion of volume overload by transthoracic echocardiography earlier during this admission. Left ventricular ejection fraction 35 to 40% on transthoracic echo, with paradoxical septal motion consistent with right ventricular pacing. Changed to oral maintenance diuretics. 3. Elevated troponin. Type II non-ST elevation myocardial infarction due to supply/demand mismatch. - Overall, picture not consistent with acute coronary syndrome. Noninvasive restratification with myocardial perfusion imaging will be considered prior to discharge. For now, do not treat as acute coronary syndrome. Continue aspirin, clopidogrel, statin, beta-erin 4. History of paroxysmal atrial fibrillation. Patient not on long-term anticoagulation by choice. The risk of stroke without anticoagulation has been discussed with the patient and she understands. 5. Anemia - Managed by Dr Wright - The patient has a history of anemia. In the past no blood loss source was identified on upper and lower GI endoscopy. Baseline hemoglobin around 9. Hemoglobin 6.3 g% on 12/04/2022. 2 units of packed red blood cells given. - We will continue DVT prophylaxis with lower dose enoxaparin 6. 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 Dyslipidemia 8. Hypertension 9. H/O alpha-1 antitrypsin deficiency-associated COPD, managed by Pulmonology 10. History of chronic kidney disease. Continue to monitor renal function. BUN and creatinine stable during this admission Plan: Recommendations as noted above. I interviewed and examined the patient and discussed her case with Dr Park and with Dr Wright. CHRISTY DELGADO MD FACP [facility] CCDS Dec 06, 2022 10:35
[2022-12-06 12:08] VITALS: BP 151/91
--- NOTE | 2022-12-06 13:02 | Pulmonary Progress Note ---
Subjective Date Seen by a Provider: Dec 06, 2022 Time Seen by a Provider: 12:57 Subjective/Events-last exam (Tele-pulmonary Physician , consultation as per request of PCP Service provided via interactive audio and video telecommunications [email or web address] system to a patient admitted to [facility]. Available chart/ vitals / labs / Images reviewed H&P is from ER notes Patient's information available about PMH, Shx, Fhx allergy reviewed inEMR. ROS as per chart and RN report A/Plan Hypoxia/ resp insufficiency - multifactorial - cxr still looks " wet" with interstitial edema and effusion -patient has EF 40 % and somne degree of puln HTN on ECHO - agree with dieresis as per cards - very weak cough - might have small mucous plugging - start IS and cont nebs - discussed with RN - was off biapap tonight -tolerating well h/o COPD - PFT from 2017 with mild onset defect and some restriction , and CT chest 2019 - no sign emphysema - cont nebs and ICS /LABA- no indication for steroids now Leukocytosis /PNA - clinically does not appears having a new infection - diarrhea most likely due to laxatives - to follow - would not change abx now - low risk for aspiration - but will need to be cautious Dyspnea - CPK and phos level WNL - muscular weakness is suspected with her generalized weakness , also discussed po marie deng patient and RN Plans in collaboration with bedside consultants and IM MDs. Discussed with RN to reach out if any questions or concerns Sepsis Event Evaluation Height, Weight, BMI Height: 5'3.00" Weight: 150lbs. 0.0oz. 68.726086ek; 37.91 BMI Method:Stated Exam Exam Patient acknowledged, consented, and participated in this virtual visit which was conducted using real time audio/video Vital Signs Date Time Temp Pulse Resp B/P (MAP) Pulse Ox O2 Delivery O2 Flow Rate FiO2 12/06/22 12:08 35.6 60 33 151/91 (111) 96 Room Air 1.00 12/06/22 08:00 36.0 60 24 133/69 (90) 95 Nasal Cannula 1.00 12/06/22 08:00 94 Nasal Cannula 1.00 12/06/22 07:08 92 Nasal Cannula 1.00 12/06/22 07:00 60 12/06/22 04:00 36.0 79 32 123/73 (90) 96 Nasal Cannula 1.00 12/06/22 02:09 96 Nasal Cannula 1.00 12/06/22 01:00 69 12/06/22 00:05 36.0 70 24 118/70 (86) 96 Nasal Cannula 1.00 12/05/22 22:04 94 Nasal Cannula 1.00 12/05/22 20:10 94 Room Air 12/05/22 19:42 35.9 67 93 12/05/22 19:35 35.9 76 33 125/83 (97) 93 Room Air 12/05/22 19:00 78 12/05/22 18:24 93 Room Air 12/05/22 15:53 36.0 74 17 125/79 (94) 96 Room Air I & O 12/06/22 07:00 Intake Total 2000 ml Output Total 2200 ml Balance -200 ml Height & Weight Height: 5'3.00" Weight: 150lbs. 0.0oz. 68.723013yy; 37.91 BMI Method:Stated General Appearance: No Apparent Distress, Chronically ill Respiratory: Lungs Clear, No Respiratory Distress, Other Cardiovascular: Regular Rate, Rhythm Capillary Refill: Less Than 3 Seconds Gastrointestinal: normal bowel sounds, non tender, soft, no organomegaly Extremity: No Calf Tenderness, No Pedal Edema Neurologic/Psychiatric: Alert, Oriented x3 Results Lab Laboratory Tests 12/05/22 04:10 12/06/22 05:05 Assessment/Plan Assessment/Plan 1 MT STRONG MD Dec 06, 2022 13:02
[2022-12-06 13:11] LABS: BILIRUBIN,URINE NEGATIVE (NEGATIVE); CLARITY,URINE CLOUDY; COLOR,URINE RED; GLUCOSE, URINE (UA) NEGATIVE (NEGATIVE); KETONES,URINE TRACE (NEGATIVE); LEUKOCYTE ESTERASE ,URINE 2+ (NEGATIVE); NITRITE,URINE POSITIVE (NEGATIVE); PROTEIN,URINE 3+ (NEGATIVE)
[2022-12-06 13:29] LABS: BACTERIA,URINE MODERATE /HPF; RBC,URINE TNTC /HPF; SQUAMOUS EPITHELIAL CELL,UR RARE /HPF; WBC,URINE >100 /HPF; YEAST,URINE MODERATE /HPF
[2022-12-06 16:00] VITALS: BP 146/93
[2022-12-06] MEDS ORDERED: MEROPENEM 1,000 MG in NS (IVPB) 100 ML IV SCH (20:00)
[2022-12-06] MEDS: MELATONIN 10 MG TABLET PO SCH (22:41)
[2022-12-06] MEDS: MEROPENEM 500 MG/NS 100 ML IVPB IV SCH ×2 (22:41)
[2022-12-06] MEDS: MONTELUKAST 10 MG (SINGULAIR) TAB PO SCH (22:42)
[2022-12-06] MEDS: MIRTAZAPINE 15 MG (REMERON) TAB PO SCH (22:43)
[2022-12-06] MEDS: AtorvaSTATin TABLET 10 MG TABLET PO SCH (22:43)
[2022-12-06 23:03] VITALS: BP 146/82
[2022-12-07] VITALS (10 sets, daily range): BP systolic 103–136; BP diastolic 66–86
[2022-12-07] MEDS: RT-ALBUTEROL/IPRATROPIUM 3 ML (DUONEB) VIAL INH SCH ×6 (02:34→22:30)
[2022-12-07] MEDS: LORazepam INJ 2 MG/ML (ATIVAN) VIAL IVP PRN (02:38)
[2022-12-07] MEDS: MEROPENEM 500 MG/NS 100 ML IVPB IV SCH ×8 (02:38→20:39)
[2022-12-07 05:34] LABS: BASOPHILS # (AUTO) 0.1 10^3/uL (0.0-0.1); BASOPHILS % (AUTO) 0 % (0-10); EOSINOPHILS # (AUTO) 0.1 10^3/uL (0.0-0.3); EOSINOPHILS % (AUTO) 1 % (0-10); HEMATOCRIT 28 % (35-52); HEMOGLOBIN 8.9 g/dL (11.5-16.0); LYMPHOCYTES # (AUTO) 1.7 10^3/uL (1.0-4.0); LYMPHOCYTES % (AUTO) 8 % (12-44); MEAN CORPUSCULAR HEMOGLOBIN 24 pg (25-34); MEAN CORPUSCULAR HGB CONC 32 g/dL (32-36); MEAN CORPUSCULAR VOLUME 76 fL (80-99); MEAN PLATELET VOLUME 9.1 fL (9.0-12.2); MONOCYTES # (AUTO) 1.3 10^3/uL (0.0-1.0); MONOCYTES % (AUTO) 6 % (0-12); NEUTROPHILS # (AUTO) 17.4 10^3/uL (1.8-7.8); NEUTROPHILS % (AUTO) 83 % (42-75); PLATELET COUNT 390 10^3/uL (130-400); WHITE BLOOD COUNT 20.9 10^3/uL (4.3-11.0)
[2022-12-07 05:44] LABS: ALBUMIN 3.4 GM/DL (3.2-4.5)
[2022-12-07 05:45] LABS: POTASSIUM 4.1 MMOL/L (3.6-5.0)
[2022-12-07 05:46] LABS: CALCIUM 9.2 MG/DL (8.5-10.1)
[2022-12-07 05:47] LABS: TOTAL PROTEIN 6.1 GM/DL (6.4-8.2)
[2022-12-07 05:49] LABS: BILIRUBIN,TOTAL 0.4 MG/DL (0.1-1.0)
[2022-12-07 05:51] LABS: CREATININE SERUM 0.79 MG/DL (0.60-1.30)
[2022-12-07] MEDS: inSUlin ASPART (NovoLOG) 1 UNIT/0.01 ML (CHARGE PER UNIT) SC SCH ×4 (06:20→20:56)
[2022-12-07] MEDS: KCL 20 MEQ TAB (K-DUR) PO SCH (06:47)
[2022-12-07] MEDS: POTASSIUM CL 10MEQ/50ML IVPB 50 ML IV SCH (06:47)
[2022-12-07] MEDS: MAGNESIUM 1 GM/100 ML IVPB 100 ML IV SCH (08:24)
[2022-12-07] MEDS: DOCUSATE SODIUM 100 MG (COLACE) CAP PO SCH ×2 (08:47→20:29)
[2022-12-07] MEDS: RIVASTIGMINE 1.5 MG (EXELON) CAP PO SCH ×2 (08:47→20:42)
[2022-12-07] MEDS: LORATADINE (CLARITIN) 10 MG TAB PO SCH (08:47)
[2022-12-07] MEDS: CLOPIDOGREL 75 MG (PLAVIX) TABLET PO SCH (08:47)
[2022-12-07] MEDS: LORazepam 0.5 MG (ATIVAN) TABLET PO SCH ×2 (08:47→20:42)
[2022-12-07] MEDS: PANTOPRAZOLE 40 MG (PROTONIX) TAB PO SCH (08:48)
[2022-12-07] MEDS: SENNOSIDES 8.6 MG (SENOKOT) TAB PO SCH ×2 (08:48→20:28)
[2022-12-07] MEDS: OXYBUTYNIN (DITROPAN) 5 MG TAB PO SCH ×2 (08:48→20:43)
[2022-12-07] MEDS: TORSEMIDE 10 MG (DEMADEX) TABLET PO SCH (08:48)
[2022-12-07] MEDS: ASPIRIN 81 MG CHEW (CHILDREN'S ASA) PO SCH (08:48)
[2022-12-07] MEDS: FLUTICASONE NASAL SPRAY (FLONASE) 16 GM BTL NS SCH ×2 (08:55→20:42)
[2022-12-07] MEDS: QUEtiapine 100 MG (SEROquel) TAB IMMEDIATE RELEASE PO SCH ×4 (08:55→21:03)
[2022-12-07] MEDS: ENOXAPARIN 40 MG/0.4 ML (LOVENOX) SYR SQ SCH (09:25)
[2022-12-07] MEDS: FLUTICASONE/VILANTEROL 100 MCG 14'S (BREO) IH SCH (10:39)
--- NOTE | 2022-12-07 12:04 | Progress Note - Hospitalist ---
Subjective HPI/CC On Admission Date Seen by Provider: Dec 07, 2022 Pt is an 82yoCF with a PMH of recent admission for pneumonia, HTN, HLD, COPD, AFib, PE, GI bleed who presented to the ER due to SOB. She was discharged from the hospital on 11/28 after being treated for pneumonia, She was found to have sats of 92% by home health with some softer blood pressures by home health. She was found to have persistent pneumonia and elevated troponin. She was admitted for further management. This morning she reports she is feeling better and breathing better. Discussed her lab findings and need for further work up of her heart. Subjective/Events-last exam Pt getting a bed kath and bedding changed. No complaints. On BiPAP but states she is doing well. Objective Exam Vital Signs Vital Signs Date Time Temp Pulse Resp B/P (MAP) Pulse Ox O2 Delivery O2 Flow Rate FiO2 12/07/22 11:29 35.5 73 26 119/79 (92) 99 NIV Bilevel 30.00 12/04/22 18:44 40 Capillary Refill : Less Than 3 Seconds General Appearance: No Apparent Distress, Chronically ill, Obese Respiratory: Lungs Clear, Other (on BiPAP) Cardiovascular: Regular Rate, Rhythm, No Murmur Neurologic/Psychiatric: Alert, Oriented x3 Results/Procedures Lab Laboratory Tests 12/07/22 05:20 Patient resulted labs reviewed. Imaging: Reviewed Imaging Report Assessment/Plan Assessment and Plan Assess & Plan/Chief Complaint Recurrent Pneumonia Acute on Chronic Respiratory Failure Continue Merrem- switched as she had increasing WBC and UA concerning for UTI on Zosyn- WBC now trending down urine culture growing yest so add Diflucan Blood cultures with NGTD BiPAP in place currently- placed overnight Pulm consulted, spoke with Dr Perry NSTEMI HTN A fib CHF Cardiology consulted, appreciate recs Monitor on Telemetry Slightly positive yesterday I/0- trend Hyponatremia 132 today- as baseline Baseline around 128-130 Fluid restriction Likely acutely worsened by SIADH from pneumonia and CHF trend Chronic anemia h/o GIB Baseline around 9 Hgb stable to 8.9 Resume lovenox DVT ppx: Lovenox TRACEE FLETCHER MD Dec 07, 2022 12:04
--- NOTE | 2022-12-07 13:53 | Progress Note - Cardiology ---
Cardiology SOAP Progress Note Subjective: Gives only minimal answers to questions Does not report any symptoms No cp or palp or syncope No focal weakness No swelling No n/v/d Objective: I&O/Vital Signs 12/07/22 12/07/22 12/07/22 12/07/22 02:46 04:00 06:44 07:00 Pulse 60 60 70 69 Resp 24 24 25 B/P (MAP) 136/82 (100) Pulse Ox 98 98 99 O2 Delivery NIV Bilevel O2 Flow Rate 30.00 30.00 12/07/22 12/07/22 12/07/22 12/07/22 08:26 10:35 11:29 12:51 Temp 36.2 35.5 Pulse 73 74 73 62 Resp 22 25 26 B/P (MAP) 123/78 (93) 119/79 (92) Pulse Ox 100 100 99 O2 Delivery NIV Bilevel NIV Bilevel O2 Flow Rate 30.00 30.00 12/07/22 00:00 Intake Total 770 ml Output Total 525 ml Balance 245 ml Weight (Pounds): 150 Weight (Ounces): 0.0 Weight (Calculated Kilograms): 68.798013 Constitutional: AAO x 3, well-developed, well-nourished Respiratory: No accessory muscle use; chest expansion is symmetric, chest is bilaterally symmetric, other (fair air entry, prolonged exp) Cardiovascular: regular rate-rhythm, S1 and S2, systolic murmur (soft FELIPA at card base) Gastrointestional: No tender; soft; No guarding, No rebound; audible bowel sounds Extremities: No clubbing, No cyanosis, No significant edema Neurologic/Psychiatric: oriented x 3, other (moves all limbs equally) Skin: normal color, warm/dry Results/Procedures: Labs Laboratory Tests 12/06/22 16:32: Glucometer 151H 12/06/22 22:14: Glucometer 175H 12/07/22 05:20: White Blood Count 20.9H, Red Blood Count 3.72L, Hemoglobin 8.9L, Hematocrit 28L, Mean Corpuscular Volume 76L, Mean Corpuscular Hemoglobin 24L, Mean Corpuscular Hemoglobin Concent 32, Red Cell Distribution Width 20.4H, Platelet Count 390, Mean Platelet Volume 9.1, Immature Granulocyte % (Auto) 1, Neutrophils (%) (Auto) 83H, Lymphocytes (%) (Auto) 8L, Monocytes (%) (Auto) 6, Eosinophils (%) (Auto) 1, Basophils (%) (Auto) 0, Neutrophils # (Auto) 17.4H, Lymphocytes # (Auto) 1.7, Monocytes # (Auto) 1.3H, Eosinophils # (Auto) 0.1, Basophils # (Auto) 0.1, Immature Granulocyte # (Auto) 0.3H, Sodium Level 132L, Potassium Level 4.1, Chloride Level 97L, Carbon Dioxide Level 24, Anion Gap 11, Blood Urea Nitrogen 10, Creatinine 0.79, Estimat Glomerular Filtration Rate 76, BUN/Creatinine Ratio 13, Glucose Level 114H, Calcium Level 9.2, Corrected Calcium 9.7, Total Bilirubin 0.4, Aspartate Amino Transf (AST/SGOT) 12, Alanine Aminotransferase (ALT/SGPT) 9, Alkaline Phosphatase 54, Total Protein 6.1L, Albumin 3.4 12/07/22 11:20: Glucometer 97 Microbiology 12/06/22 Urine Culture - Preliminary, Resulted YEAST 11/30/22 Blood Culture - Final, Complete No growth Laboratory Tests 12/06/22 05:05 12/07/22 05:20 A/P: Assessment: 1. Community-acquired pneumonia. Significant leukocytosis - managed by Dr Wright 2. Mild CHF exacerbation suspected but this appears to be well compensated at present. - Suggestion of volume overload by transthoracic echocardiography earlier during this admission. Left ventricular ejection fraction 35 to 40% on transthoracic echo, with paradoxical septal motion consistent with right ventricular pacing. Changed to oral maintenance diuretics. 3. Elevated troponin. Type II non-ST elevation myocardial infarction due to supply/demand mismatch. - Overall, picture not consistent with acute coronary syndrome. Noninvasive restratification with myocardial perfusion imaging will be considered prior to discharge. For now, do not treat as acute coronary syndrome. Continue aspirin, clopidogrel, statin, beta-erin 4. History of paroxysmal atrial fibrillation. Patient not on long-term anticoagulation by choice. The risk of stroke without anticoagulation has been discussed with the patient and she understands. 5. Anemia - Managed by Dr Wright - The patient has a history of anemia. In the past no blood loss source was identified on upper and lower GI endoscopy. Baseline hemoglobin around 9. Hemoglobin 6.3 g% on 12/04/2022. 2 units of packed red blood cells given. - We will continue DVT prophylaxis with lower dose enoxaparin 6. 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 Dyslipidemia 8. Hypertension 9. H/O alpha-1 antitrypsin deficiency-associated COPD, managed by Pulmonology 10. History of chronic kidney disease. Continue to monitor renal function. BUN and creatinine stable during this admission CHRISTY DELGADO MD FACP [facility] CCDS Dec 07, 2022 13:53
[2022-12-07] MEDS: fluCOnazole (DIFLUCAN) 100 MG TAB PO NR ×2 (14:16→15:44)
[2022-12-07 14:42] LABS: ABG BASE EXCESS 0.4 MMOL/L (-2.5-2.5); ABG OXYGEN SATURATION 75 % (94-100); ABG PCO2 37 MMHG (35-45); ABG PH 7.43 (7.37-7.43); ABG PO2 42 MMHG (79-93); ABG TCO2 25.3 MMOL/L (21.0-31.0)
[2022-12-07 14:44] LABS: ALLENS TEST Positive; INSPIRED O2 30%; PATIENT TEMP 37.2; VENTILATOR NO
[2022-12-07] MEDS: NYSTATIN ORAL SUSP 5 ML UDC PO SCH ×2 (17:41→23:21)
[2022-12-07] MEDS: MELATONIN 10 MG TABLET PO SCH (20:42)
[2022-12-07] MEDS: AtorvaSTATin TABLET 10 MG TABLET PO SCH (20:43)
[2022-12-07] MEDS: MIRTAZAPINE 15 MG (REMERON) TAB PO SCH (20:43)
[2022-12-07] MEDS: MONTELUKAST 10 MG (SINGULAIR) TAB PO SCH (20:43)
[2022-12-08] MEDS: RT-ALBUTEROL/IPRATROPIUM 3 ML (DUONEB) VIAL INH SCH (02:55)
[2022-12-08 03:02] VITALS: BP 115/49
[2022-12-08] MEDS: MEROPENEM 500 MG/NS 100 ML IVPB IV SCH ×4 (03:06→08:32)
[2022-12-08 04:12] VITALS: BP 115/49
[2022-12-08] MEDS: NYSTATIN ORAL SUSP 5 ML UDC PO SCH ×2 (05:19→11:16)
[2022-12-08 05:26] LABS: BASOPHILS # (AUTO) 0.1 10^3/uL (0.0-0.1); BASOPHILS % (AUTO) 1 % (0-10); EOSINOPHILS # (AUTO) 0.7 10^3/uL (0.0-0.3); EOSINOPHILS % (AUTO) 4 % (0-10); HEMATOCRIT 27 % (35-52); HEMOGLOBIN 8.4 g/dL (11.5-16.0); LYMPHOCYTES # (AUTO) 2.2 10^3/uL (1.0-4.0); LYMPHOCYTES % (AUTO) 12 % (12-44); MEAN CORPUSCULAR HEMOGLOBIN 24 pg (25-34); MEAN CORPUSCULAR HGB CONC 31 g/dL (32-36); MEAN CORPUSCULAR VOLUME 76 fL (80-99); MONOCYTES # (AUTO) 1.4 10^3/uL (0.0-1.0); MONOCYTES % (AUTO) 8 % (0-12); NEUTROPHILS # (AUTO) 13.5 10^3/uL (1.8-7.8); NEUTROPHILS % (AUTO) 75 % (42-75); PLATELET COUNT 427 10^3/uL (130-400)
[2022-12-08 05:34] LABS: ALBUMIN 3.1 GM/DL (3.2-4.5); POTASSIUM 3.4 MMOL/L (3.6-5.0)
[2022-12-08 05:35] LABS: CALCIUM 8.9 MG/DL (8.5-10.1)
[2022-12-08 05:36] LABS: TOTAL PROTEIN 5.7 GM/DL (6.4-8.2)
[2022-12-08 05:38] LABS: BILIRUBIN,TOTAL 0.5 MG/DL (0.1-1.0)
[2022-12-08 05:40] LABS: CREATININE SERUM 0.78 MG/DL (0.60-1.30)
[2022-12-08] MEDS: ACETAMINOPHEN 325 MG TABLET PO PRN ×2 (05:40→16:02)
[2022-12-08 05:43] LABS: MAGNESIUM 1.8 MG/DL (1.6-2.4)
[2022-12-08] MEDS: inSUlin ASPART (NovoLOG) 1 UNIT/0.01 ML (CHARGE PER UNIT) SC SCH ×2 (05:58→10:39)
[2022-12-08 06:22] LABS: LYMPHOCYTES % (MANUAL) 12 %; MONOCYTES % (MANUAL) 4 %; NEUTROPHILS % (MANUAL) 78 %
[2022-12-08] MEDS: MAGNESIUM 1 GM/100 ML IVPB 100 ML IV SCH ×3 (06:22→06:36)
[2022-12-08 06:23] LABS: ANISOCYTOSIS MODERATE; ELLIPT/OVALOCYTES SLIGHT; EOSINOPHILS % (MANUAL) 6 %; HYPOCHROMASIA MODERATE
[2022-12-08] MEDS: POTASSIUM CL 10MEQ/50ML IVPB 50 ML IV SCH (06:25)
[2022-12-08] MEDS: KCL 20 MEQ TAB (K-DUR) PO SCH (06:27)
[2022-12-08 07:31] VITALS: BP 111/69
[2022-12-08] MEDS: FLUTICASONE/VILANTEROL 100 MCG 14'S (BREO) IH SCH (07:41)
[2022-12-08] MEDS: RIVASTIGMINE 1.5 MG (EXELON) CAP PO SCH (08:30)
[2022-12-08] MEDS: TORSEMIDE 10 MG (DEMADEX) TABLET PO SCH (08:30)
[2022-12-08] MEDS: ASPIRIN 81 MG CHEW (CHILDREN'S ASA) PO SCH (08:30)
[2022-12-08] MEDS: PANTOPRAZOLE 40 MG (PROTONIX) TAB PO SCH (08:31)
[2022-12-08] MEDS: OXYBUTYNIN (DITROPAN) 5 MG TAB PO SCH (08:31)
[2022-12-08] MEDS: LORATADINE (CLARITIN) 10 MG TAB PO SCH (08:31)
[2022-12-08] MEDS: ENOXAPARIN 40 MG/0.4 ML (LOVENOX) SYR SQ SCH (08:31)
[2022-12-08] MEDS: CLOPIDOGREL 75 MG (PLAVIX) TABLET PO SCH (08:31)
[2022-12-08] MEDS: DOCUSATE SODIUM 100 MG (COLACE) CAP PO SCH (08:31)
[2022-12-08] MEDS: LORazepam 0.5 MG (ATIVAN) TABLET PO SCH (08:31)
[2022-12-08] MEDS: SENNOSIDES 8.6 MG (SENOKOT) TAB PO SCH (08:31)
[2022-12-08] MEDS: FLUTICASONE NASAL SPRAY (FLONASE) 16 GM BTL NS SCH (08:32)
[2022-12-08] MEDS: QUEtiapine 100 MG (SEROquel) TAB IMMEDIATE RELEASE PO SCH ×2 (08:38→16:01)
[2022-12-08] MEDS ORDERED: KCL 20 MEQ TAB (K-DUR) PO ONE (09:00)
[2022-12-08] MEDS ORDERED: RT-ALBUTEROL/IPRATROPIUM 3 ML (DUONEB) VIAL INH SCH (09:00)
[2022-12-08] MEDS ORDERED: fluCOnazole (DIFLUCAN) 100 MG TAB PO SCH (09:00)
--- NOTE | 2022-12-08 09:44 | Progress Note - Cardiology ---
Cardiology SOAP Progress Note Subjective: She feels that her chronic shortness of breath is now at its usual baseline and she wishes to go home No cp or palp or syncope Gen malaise and weakness present No focal weakness No n/v/d Objective: I&O/Vital Signs 12/07/22 12/07/22 12/08/22 12/08/22 22:30 23:21 01:00 02:55 Temp 36.2 Pulse 70 65 Resp 24 B/P (MAP) 112/66 (81) Pulse Ox 99 94 96 O2 Delivery Nasal Cannula Nasal Cannula Nasal Cannula O2 Flow Rate 2.00 2.00 2.00 12/08/22 12/08/22 12/08/22 12/08/22 03:02 04:12 07:17 07:31 Temp 36.1 36.1 36.3 Pulse 69 69 75 75 Resp 24 16 B/P (MAP) 115/49 (71) 111/69 (83) Pulse Ox 96 96 96 O2 Delivery Nasal Cannula Nasal Cannula O2 Flow Rate 2.00 2.00 12/07/22 23:59 Intake Total 300 ml Output Total 1250 ml Balance -950 ml Weight (Pounds): 150 Weight (Ounces): 0.0 Weight (Calculated Kilograms): 68.535874 Constitutional: AAO x 3, well-developed, well-nourished Respiratory: No accessory muscle use; chest expansion is symmetric, chest is bilaterally symmetric, other (fair air entry, prolonged exp) Cardiovascular: regular rate-rhythm, S1 and S2, systolic murmur (soft FELIPA at card base) Gastrointestional: No tender; soft; No guarding, No rebound; audible bowel sounds Extremities: No clubbing, No cyanosis, No significant edema Neurologic/Psychiatric: oriented x 3, other (moves all limbs equally) Skin: normal color, warm/dry Results/Procedures: Labs Laboratory Tests 12/07/22 11:20: Glucometer 97 12/07/22 14:35: Blood Gas Puncture Site R radial, Blood Gas Patient Temperature 37.2, Arterial Blood pH 7.43, Arterial Blood Partial Pressure CO2 37, Arterial Blood Partial Pressure O2 42L, Arterial Blood HCO3 24, Arterial Blood Total CO2 25.3, Arterial Blood Oxygen Saturation 75L, Arterial Blood Base Excess 0.4, Kushal Test Positive, Blood Gas Ventilator Setting NO, Blood Gas Inspired Oxygen 30% 12/07/22 15:37: Glucometer 116H 12/07/22 20:50: Glucometer 146H 12/08/22 04:58: White Blood Count 18.0H, Red Blood Count 3.57L, Hemoglobin 8.4L, Hematocrit 27L, Mean Corpuscular Volume 76L, Mean Corpuscular Hemoglobin 24L, Mean Corpuscular Hemoglobin Concent 31L, Red Cell Distribution Width 21.0H, Platelet Count 427H, Mean Platelet Volume 9.0, Immature Granulocyte % (Auto) 1, Neutrophils (%) (Auto) 75, Lymphocytes (%) (Auto) 12, Monocytes (%) (Auto) 8, Eosinophils (%) (Auto) 4, Basophils (%) (Auto) 1, Neutrophils # (Auto) 13.5H, Lymphocytes # (Auto) 2.2, Monocytes # (Auto) 1.4H, Eosinophils # (Auto) 0.7H, Basophils # (Auto) 0.1, Immature Granulocyte # (Auto) 0.2H, Neutrophils % (Manual) 78, Lymphocytes % (Manual) 12, Monocytes % (Manual) 4, Eosinophils % (Manual) 6, Hypochromasia MODERATE, Anisocytosis MODERATE, Elliptocytes SLIGHT, Sodium Level 133L, Potassium Level 3.4L, Chloride Level 96L, Carbon Dioxide Level 28, Anion Gap 9, Blood Urea Nitrogen 10, Creatinine 0.78, Estimat Glomerular Filtration Rate 77, BUN/Creatinine Ratio 13, Glucose Level 109H, Calcium Level 8.9, Corrected Calcium 9.6, Magnesium Level 1.8, Total Bilirubin 0.5, Aspartate Amino Transf (AST/SGOT) 16, Alanine Aminotransferase (ALT/SGPT) 11, Alkaline Phosphatase 48, Total Protein 5.7L, Albumin 3.1L Microbiology 12/06/22 Blood Culture - Preliminary, Resulted No growth 12/06/22 Urine Culture - Final, Complete YEAST Laboratory Tests 12/07/22 05:20 12/08/22 04:58 A/P: Assessment: 1. Community-acquired pneumonia. Significant leukocytosis - managed by Dr Wright 2. Mild CHF exacerbation suspected but this appears to be well compensated at present. - Suggestion of volume overload by transthoracic echocardiography earlier during this admission. Left ventricular ejection fraction 35 to 40% on transthoracic echo, with paradoxical septal motion consistent with right ventricular pacing. Changed to oral maintenance diuretics. 3. Elevated troponin. Type II non-ST elevation myocardial infarction due to supply/demand mismatch. - Overall, picture not consistent with acute coronary syndrome. Noninvasive restratification with myocardial perfusion imaging will be considered prior to discharge. For now, do not treat as acute coronary syndrome. Continue aspirin, clopidogrel, statin, beta-erin 4. History of paroxysmal atrial fibrillation. Patient not on long-term anticoagulation by choice. The risk of stroke without anticoagulation has been discussed with the patient and she understands. 5. Anemia - Managed by Dr Wright - The patient has a history of anemia. In the past no blood loss source was identified on upper and lower GI endoscopy. Baseline hemoglobin around 9. Hemoglobin 6.3 g% on 12/04/2022. 2 units of packed red blood cells given. - We will continue DVT prophylaxis with lower dose enoxaparin 6. History of permanent pacemaker placement 2017 for bradycardia 7. Dyslipidemia 8. Hypertension 9. H/O alpha-1 antitrypsin deficiency-associated COPD, managed by Pulmonology 10. History of chronic kidney disease. Continue to monitor renal function. BUN and creatinine stable during this admission 11. Mild hypokalemia on 12-08-22. We recommend correction with supplemental K CHRISTY DELGADO MD FACP [facility] CCDS Dec 08, 2022 09:44
[2022-12-08] MEDS ORDERED: CARV3.122 PO (11:22)
[2022-12-08] MEDS ORDERED: CALC1TAB84 PO (11:22)
[2022-12-08] MEDS ORDERED: PRAV40TA2 PO (11:22)
[2022-12-08] MEDS ORDERED: IPRA3AMP31 IH (11:22)
[2022-12-08] MEDS ORDERED: LORA-404 PO (11:22)
[2022-12-08] MEDS ORDERED: FLUC100T10 PO (11:22)
[2022-12-08] MEDS ORDERED: ASPI81TA64 PO (11:22)
[2022-12-08] MEDS ORDERED: MIRT-68 PO (11:22)
[2022-12-08] MEDS ORDERED: FLUT1AER INH (11:22)
[2022-12-08] MEDS ORDERED: OXYB5TAB13 PO (11:22)
[2022-12-08] MEDS ORDERED: MELA5TAB14 PO (11:22)
[2022-12-08] MEDS ORDERED: RIVA1.5C30 PO (11:22)
[2022-12-08] MEDS ORDERED: QUET100T33 PO (11:22)
[2022-12-08] MEDS ORDERED: PANT40TA52 PO (11:22)
[2022-12-08] MEDS ORDERED: CLOP75TA28 PO (11:22)
[2022-12-08] MEDS ORDERED: TORS10TA5 PO (11:22)
[2022-12-08] MEDS ORDERED: MONT-40 PO (11:22)
[2022-12-08] MEDS ORDERED: NF-ALLE180 PO (11:22)
[2022-12-08] MEDS ORDERED: POTA10TA PO (11:22)
[2022-12-08] MEDS ORDERED: FLUT16SP22 NSEACH (11:22)
--- NOTE | 2022-12-08 11:41 | Physical Therapy Daily Note ---
PT Daily Note-Current Subjective Pt found seated in recliner upon entry. Agreed to PT. States that she is not having any pain today. Pt requests to be transferred to bed. Pain Section J - Health Conditions 1. Rarely or not at all 2. Occasionally 3. Frequently 4. Almost constantly 8. Unable to answer Pain Effect on Sleep: 8 Pain Interference with Therapy: 8 Pain Interference w/Day-to-Day: 8 Mental Status Patient Orientation: Person, Place Attachments: Oxygen, [place]son Catheter Telemetry Transfers SCALE: Activities may be completed with or without assistive devices. 1-Ahjrnpueou-ufrhars completes the activity by him/herself with no assistance from a helper. 5-Set-up or Clean-up Assistance-helper sets up or cleans up; patient completes activity. [place] assists only prior to or following the activity. 4-Supervision or Touching Assistance-helper provides verbal cues and/or touching/steadying and/or contact guard assistance as patient completes activity. Assistance may be provided throughout the activity or intermittently. 3-Partial/Moderate Assistance-helper does LESS THAN HALF the effort. [place] lifts, holds or supports trunk or limbs, but provides less than half the effort. 2-Substantial/Maximal Assistance-helper does MORE THAN HALF the effort. [place] lifts or holds trunk or limbs and provides more than half the effort. 6-Ppeqmnpjg-lpxuws does ALL the effort. Patient does none of the effort to complete the activity. Or, the assistance of 2 or more helpers is required for the patient to complete the activity. If activity was not attempted, code reason: 7-Patient Refused. 9-Not Applicable-not attempted and the patient did not perform the activity before the current illness, exacerbation or injury. 10-Not Attempted due to Environmental Limitations-(lack of equipment, weather restraints, etc.). 88-Not Attempted due to Medical Conditions or Safety Concerns. Sit to Lying (QC): 3 Sit to Stand (QC): 3 Chair/Kbz-yo-Psgbs Xfer(QC): 3 Pt completes sit to stand transfer 3x from recliner /c MIN assist for lifting. Chair to bed transfer completed /c MIN lifting assistance. Pt able to pivot/step to complete transfer. MIN LE lifting assistance for completion of sitting to lying transfer. Weight Bearing Right Lower Extremity: Right Full Weight Bearing Left Lower Extremity: Left Full Weight Bearing Gait Training Does the Patient Walk?: No and Walking Goal IS indicated Treatments Seated Therapeutic Exercises (B): LAQs x 5 Marching x 5 Heel/toe raises x 5 Hip abd x 5 Hip add /c pillow x 5 Assessment Current Status: Fair Progress Pt completes sit to stand transfer 3x from recliner /c MIN lifting assistance. Able to stand for up to 10 seconds before requiring a seated rest break. Pt displays poor standing posture likely due to weakness and fatigue. Posture does not improve /c verbal cues. Pt completes seated therapeutic exercises from recliner. Chair to bed transfer completed /c MIN assist for lifting only. Sit to lying transfer completed /c MIN LE lifting assistance. Pt reports dizziness and fatigue post-treatment. Continue to progress per POC to improve strength, endurance, and functional ability. PT Correction Goals Correction Goals PT Correction Goals Time Frame: Jan 03, 2023 Roll Left & Right (QC): 6 Sit to Lying (QC): 6 Lying-Sitting on Side/Bed(QC): 6 Sit to Stand (QC): 6 Chair/Dto-kn-Yftos Xfer(QC): 4 Toilet Transfer (QC): 4 Does the Patient Walk: Yes Walk 10 feet (QC): 4 Walk 50ft with 2 Turns (QC): 3 Walk 150 ft (QC): 3 PT Plan Treatment/Plan Treatment Plan: Continue Plan of Care Treatment Plan: Bed Mobility, Education, Functional Activity Leonel, Functional Strength, Group Therapy, Gait, Safety, Therapeutic Exercise, Transfers Treatment Duration: Jan 03, 2023 Frequency: 6 times per week Estimated Hrs Per Day: .25 hour per day Patient and/or Family Agrees t: Yes Time Time In: 957 Time Out: 1019 DATE: Dec 08, 2022 Total Billed Treatment Time: 21 Total Billed Treatment 1 visit FA x 1 MARY BETH RUBIO [facility] Dec 08, 2022 11:41
[2022-12-08 12:00] VITALS: BP 109/78
--- NOTE | 2022-12-08 12:05 | Discharge Inst-Skilled Nursing ---
Discharge Inst-Skilled NF Consult/Follow Up/Orders Follow Up Appt.: one week with Dr. Kent Skilled NF Admit to: [facility] Certification ([facility]) I certify that SNF services are required to be given on an inpatient basis because of the above named patient's need for longterm care on a continuing basis for the conditions(s) for which he/she was receiving inpatient hospital services prior to his/her transfer to the SNF. Senior Living Facility Order: Nursing Services, [facility]ender-Evaluate & Treat, Physical Therapy-Evaluate & Treat Oxygen Delivery Method: Nasal Cannula Discharge Diet: Low Sodium Diet Daily Activity as Tolerated: Yes Resuscitation Status: Full Code New & Resume Previous Orders Norma Noguera Dec 08, 2022 12:04 NORMA NOGUERA MD Dec 08, 2022 12:05
[2022-12-08 15:45] VITALS: BP 127/74
--- NOTE | 2022-12-08 16:40 | Discharge Summary ---
Discharge Summary Hospital Course Problems/Dx: (1) CAP (community acquired pneumonia) Qualifiers: Qualified Codes: J18.9 - Pneumonia, unspecified organism (2) NSTEMI (non-ST elevation myocardial infarction) (3) Hyponatremia (4) Generalized weakness Status: Acute (5) Acute anemia Status: Acute Hospital Course Date of Admission: Nov 30, 2022 at 16:36 Admission Diagnosis : Pneumonia, NSTEMI Family Physician/Provider: Brad Hdez MD Date of Discharge: 12/08/22 Discharge Diagnosis: Pneumonia, NSTEMI Hospital Course: Vane Correia is an 82 year old female who was admitted with recurrent pneumonia. She was given a course of IV antibiotics and improved. She also had an elevated troponin and was treated for a type II NSTEMI. Cardiology was consulted and assisted with her care. She also had acute on chronic anemia. She required a blood transfusion. Her hemoglobin stabilized. She had hyponatremia which improved. She was debilitated and was discharged to [facility] in stable condition. Labs and Pending Lab Test: Laboratory Tests 12/07/22 20:50: Glucometer 146H 12/08/22 04:58: White Blood Count 18.0H, Red Blood Count 3.57L, Hemoglobin 8.4L, Hematocrit 27L, Mean Corpuscular Volume 76L, Mean Corpuscular Hemoglobin 24L, Mean Corpuscular Hemoglobin Concent 31L, Red Cell Distribution Width 21.0H, Platelet Count 427H, Mean Platelet Volume 9.0, Immature Granulocyte % (Auto) 1, Neutrophils (%) (Auto) 75, Lymphocytes (%) (Auto) 12, Monocytes (%) (Auto) 8, Eosinophils (%) (Auto) 4, Basophils (%) (Auto) 1, Neutrophils # (Auto) 13.5H, Lymphocytes # (Auto) 2.2, Monocytes # (Auto) 1.4H, Eosinophils # (Auto) 0.7H, Basophils # (Auto) 0.1, Immature Granulocyte # (Auto) 0.2H, Neutrophils % (Manual) 78, Lymphocytes % (Manual) 12, Monocytes % (Manual) 4, Eosinophils % (Manual) 6, Hypochromasia MODERATE, Anisocytosis MODERATE, Elliptocytes SLIGHT, Sodium Level 133L, Potassium Level 3.4L, Chloride Level 96L, Carbon Dioxide Level 28, Anion Gap 9, Blood Urea Nitrogen 10, Creatinine 0.78, Estimat Glomerular Filtration Rate 77, BUN/Creatinine Ratio 13, Glucose Level 109H, Calcium Level 8.9, Corrected Calcium 9.6, Magnesium Level 1.8, Total Bilirubin 0.5, Aspartate Amino Transf (AST/SGOT) 16, Alanine Aminotransferase (ALT/SGPT) 11, Alkaline Phosphatase 48, Total Protein 5.7L, Albumin 3.1L 12/08/22 10:32: Glucometer 128H 12/08/22 15:30: Glucometer 129H Microbiology 12/07/22 Blood Culture - Preliminary, Resulted No growth 12/06/22 Urine Culture - Final, Complete YEAST Home Meds Active Fluconazole 100 Mg Tablet 100 Mg PO DAILY 3 Days Oxybutynin Chloride 5 Mg Tablet 5 Mg PO BID 30 Days Torsemide 10 Mg Tablet 20 Mg PO DAILY 30 Days Children's Aspirin (Aspirin) 81 Mg Tab.chew 81 Mg PO DAILY 30 Days Clopidogrel (Clopidogrel Bisulfate) 75 Mg Tablet 75 Mg PO DAILY 30 Days Iprat-Albut 0.5-3(2.5) mg/3 ml (Ipratropium/Albuterol Sulfate) 0.5 Mg-3 Mg (2.5 Mg Base)/3 Ml Ampul.neb 3 Ml IH Q4H 30 Days Quetiapine Fumarate 100 Mg Tablet 50 Mg PO 0800,1600,2200 30 Days Fexofenadine HCl 180 Mg Tablet 180 Mg PO DAILY 30 Days Carvedilol 3.125 Mg Tablet 3.125 Mg PO BID WITH MEALS 30 Days Breo Ellipta 100-25 Mcg INH (Fluticasone/Vilanterol) 100 Mcg-25 Mcg/Dose Blst.w.dev 1 Puff INH DAILY 30 Days Melatonin 5 Mg Tablet 10 Mg PO HS 30 Days TAKES 2 TABLETS K-Tab ER (Potassium Chloride) 10 Meq Tablet.er 10 Meq PO DAILY 30 Days Ativan (Lorazepam) 0.5 Mg Tablet 0.5 Mg PO BID 30 Days Pravastatin Sodium 40 Mg Tablet 40 Mg PO HS 30 Days Pantoprazole Sodium 40 Mg Tablet.dr 40 Mg PO DAILY 30 Days Mirtazapine 15 Mg Tablet 15 Mg PO HS 30 Days Rivastigmine (Rivastigmine Tartrate) 1.5 Mg Capsule 1.5 Mg PO BID 30 Days Fluticasone Propionate 50 Mcg/Actuation [place].susp 1 [place] NSEACH BID 30 Days Calcium 600 + Vit D 200 Tablet (Calcium Carbonate/Vitamin D3) 600 Mg Calcium-5 Mcg (200 Unit) Tablet 1 Tab PO BID 30 Days Montelukast Sodium 10 Mg Tablet 10 Mg PO HS 30 Days Reported Levofloxacin 500 Mg Tablet 500 Mg PO DAILY 5 Days Benzonatate 200 Mg Capsule 200 Mg PO Q8H PRN Mucus Relief (Guaifenesin) 600 Mg Tab.er.12h 600 Mg PO Q12H PRN Benadryl (Diphenhydramine HCl) 25 Mg Capsule 25-50 Mg PO HS PRN Benadryl (Diphenhydramine HCl) 25 Mg Capsule 25-50 Mg PO DAILY Amlodipine Besylate 5 Mg Tablet 5 Mg PO DAILY Furosemide 20 Mg Tablet 20 Mg PO DAILY Oxybutynin Chloride ER (Oxybutynin Chloride) 10 Mg Tab.er.24 10 Mg PO DAILY Tylenol Extra Strength (Acetaminophen) 500 Mg Tablet 1,000 Mg PO 1100,1600 TAKES 2 (500 MG) TABLETS Assessment/Pt Instructions See instructions Discharge Planning: >30 minutes discharge planning Discharge Instructions Discharge Diet: Low Sodium Diet Activity as Tolerated: Yes Consultations Cardiology, TeleICU Discharge Physical Examination Vital Signs Vital Signs Date Time Temp Pulse Resp B/P (MAP) Pulse Ox O2 Delivery O2 Flow Rate FiO2 12/08/22 15:45 36.5 67 25 127/74 (91) 92 Nasal Cannula 1.50 12/04/22 18:44 40 General Appearance: No Apparent Distress, Obese Respiratory: No Respiratory Distress, Decreased Breath Sounds Cardiovascular: Regular Rate, Rhythm, No Murmur Gastrointestinal: Normal Bowel Sounds, Soft Extremity: No Inflammation; Pedal Edema Skin: Warm/Dry, Pallor Neurologic/Psychiatric: Alert, Normal Mood/Affect Allergies: Coded Allergies: ketorolac (Verified Allergy, Mild, 04/15/22) morphine (Verified Allergy, Mild, pt has received Lortab in the past, 04/16/22) tetracycline (Verified Allergy, Mild, 04/15/22) paroxetine (Verified Allergy, Unknown, 04/15/22) Penicillins (Verified Adverse Reaction, Mild, tolerates Zosyn, 12/06/22) Copy Copies To 1: BRAD HDEZ MD Discharge Summary Date of Admission Nov 30, 2022 at 16:36 Date of Discharge Discharge Date: Dec 08, 2022 Discharge Time: 16:39 Admission Diagnosis Recurrent Pneumonia Consults/Procedures Consulations Cardiology Discharge Diagnosis (1) CAP (community acquired pneumonia) Qualifiers: Qualified Codes: J18.9 - Pneumonia, unspecified organism (2) NSTEMI (non-ST elevation myocardial infarction) (3) Hyponatremia (4) Acute anemia Status: Acute (5) Generalized weakness Status: Acute LONI NOGUERA MD Dec 08, 2022 16:39
== END 2022-12-08 15:15 | DRG 193 ==
LOC: EDUNIT# 15:02 → ER 15:03 → CSD 16:36
PROVIDERS: ADMIT Internal Medicine; ATTEND Internal Medicine
PROC: 5A09357 Assistance with Respiratory Ventilation, Less than 24 Consecutive Hours, Continuous Positive Airway Pressure (ICD-10-PCS; principal; 2022-12-03)
DX: J18.9 Pneumonia, unspecified organism (principal); I21.A1 Myocardial infarction type 2; J96.21 Acute and chronic respiratory failure with hypoxia; E87.1 Hypo-osmolality and hyponatremia; J44.0 Chronic obstructive pulmonary disease with (acute) lower respiratory infection; I13.0 Hypertensive heart and chronic kidney disease with heart failure and stage 1 through stage 4 chronic kidney disease, or unspecified chronic kidney disease; I42.8 Other cardiomyopathies; Z95.0 Presence of cardiac pacemaker; D64.9 Anemia, unspecified; E78.00 Pure hypercholesterolemia, unspecified; F03.90 Unspecified dementia, unspecified severity, without behavioral disturbance, psychotic disturbance, mood disturbance, and anxiety; M19.90 Unspecified osteoarthritis, unspecified site; G89.29 Other chronic pain; M54.9 Dorsalgia, unspecified; F41.9 Anxiety disorder, unspecified; Z86.711 Personal history of pulmonary embolism; N18.9 Chronic kidney disease, unspecified; E87.6 Hypokalemia; I50.9 Heart failure, unspecified; I48.0 Paroxysmal atrial fibrillation; Z20.822 Contact with and (suspected) exposure to COVID-19
CPT/HCPCS: 36415; 36569; 36600; 71045; 76937; 80053; 80202; 81000; 82550; 82805; 82947; 83605; 83735; 84100; 84295; 84484; 85007; 85025; 85027; 86850; 86900; 86901; 86920; 87040; 87088; 87636; 93005; 93306; 94640; 94660; 94664; 94760

== ENCOUNTER 2022-12-15 14:21 | Inpatient (IN) | payer MEDICARE, MEDICAID ==
[~2022-12-15] VITALS: Ht 162 cm; Wt 90.5 kg
[~2022-12-15 14:21] MED LIST changes: +ASPI81TA64 PO; +CLOP75TA28 PO; +FLUC100T10 PO; +IPRA3AMP31 IH; +OXYB5TAB13 PO; +TORS10TA5 PO
[2022-12-15 15:09] LABS: BASOPHILS # (AUTO) 0.1 10^3/uL (0.0-0.1); BASOPHILS % (AUTO) 1 % (0-10); EOSINOPHILS # (AUTO) 0.2 10^3/uL (0.0-0.3); EOSINOPHILS % (AUTO) 1 % (0-10); HEMATOCRIT 30 % (35-52); HEMOGLOBIN 9.2 g/dL (11.5-16.0); LYMPHOCYTES # (AUTO) 2.2 10^3/uL (1.0-4.0); LYMPHOCYTES % (AUTO) 10 % (12-44); MEAN CORPUSCULAR HEMOGLOBIN 23 pg (25-34); MEAN CORPUSCULAR HGB CONC 30 g/dL (32-36); MEAN CORPUSCULAR VOLUME 76 fL (80-99); MEAN PLATELET VOLUME 9.8 fL (9.0-12.2); MONOCYTES # (AUTO) 1.8 10^3/uL (0.0-1.0); MONOCYTES % (AUTO) 8 % (0-12); NEUTROPHILS # (AUTO) 17.8 10^3/uL (1.8-7.8); NEUTROPHILS % (AUTO) 80 % (42-75); PLATELET COUNT 582 10^3/uL (130-400); WHITE BLOOD COUNT 22.3 10^3/uL (4.3-11.0)
[2022-12-15 15:13] LABS: ALBUMIN 3.6 GM/DL (3.2-4.5); POTASSIUM 4.1 MMOL/L (3.6-5.0)
[2022-12-15 15:15] LABS: CALCIUM 10.1 MG/DL (8.5-10.1)
[2022-12-15 15:18] LABS: BILIRUBIN,TOTAL 0.7 MG/DL (0.1-1.0)
[2022-12-15 15:19] LABS: CREATININE SERUM 1.08 MG/DL (0.60-1.30)
--- NOTE | 2022-12-15 15:22 | Diagnostic Imaging Report ---
Indication: Chest pain Portable chest at 3:05 PM There is a dual-chamber pacemaker. Heart size is normal. There is pulmonary vascular congestion. There are no effusions or pneumothoraces. IMPRESSION: Pulmonary vascular congestion. Dictated by: Dictated on workstation # [id number]
[2022-12-15 15:23] LABS: MAGNESIUM 1.8 MG/DL (1.6-2.4)
[2022-12-15 15:26] LABS: ANISOCYTOSIS MARKED; BAND NEUTROPHILS 1 %; BASOPHILS % (MANUAL) 0 %; EOSINOPHILS % (MANUAL) 0 %; HYPOCHROMASIA MARKED; LYMPHOCYTES % (MANUAL) 10 %; MICROCYTOSIS SLIGHT; MONOCYTES % (MANUAL) 5 %; NEUTROPHILS % (MANUAL) 84 %; POLYCHROMASIA MODERATE
[2022-12-15 15:34] LABS: INR 1.1 (0.8-1.4); PROTHROMBIN TIME PATIENT 14.7 SEC (12.2-14.7)
[2022-12-15] MEDS ORDERED: CLINDAMYCIN 900 MG/50 ML IVPB 50 ML IV ONE (17:30)
[2022-12-15] MEDS ORDERED: HOLD METFORMIN - RECEIVED CONTRAST 20 ML VIAL IV SCH (17:30)
[2022-12-15] MEDS ORDERED: NS IV 1000 ML 1,000 ML IV SCH (17:30)
[2022-12-15] MEDS ORDERED: CEFEPIME INJECTION 2,000 MG in NS (IVPB) 50 ML IV ONE (17:30)
[2022-12-15] MEDS ORDERED: IOHEXOL 350 MG/ML 100 ML (OMNIPAQUE 350) VIAL IV ONE (17:30)
[2022-12-15] MEDS ORDERED: NS 100 ML (IVPB) BAG IV ONE (17:30)
--- NOTE | 2022-12-15 17:33 | ED General ---
General Chief Complaint: Altered Mental Status Stated Complaint: AMS | WEAKNESS Nursing Triage Note: PT TO ED BY EMS FROM [facility] WITH C/O AMS BEGINNING YESTERDAY, WORSE TODAY. PT IS NORMALLY ORIENTED TO SELF AND FAMILY, BUT IS NOT TODAY. PT HAS HAD RASH SINCE THURSDAY. Source of Information: Patient Exam Limitations: No Limitations History of Present Illness Date Seen by Provider: Dec 15, 2022 Time Seen by Provider: 15:03 Initial Comments This 82-year-old woman presents to the emergency room from the halfway where she is noted to have altered mental status and increasing weakness. Family has also noticed she developed a rash. She is noted to have erythema, swelling, and tenderness along the right parotid gland. This is a new finding today. She is afebrile. Patient is normally talkative and able to have a conversation. She is unable to do so today. She was admitted to this hospital November 30 through December 08 for pneumonia, NSTEMI, hyponatremia, and weakness. Family is concerned about an apparent severe candidiasis of the perineum. Allergies and Home Medications Allergies Coded Allergies: ketorolac (Verified Allergy, Mild, 04/15/22) morphine (Verified Allergy, Mild, pt has received Lortab in the past, 04/16/22) tetracycline (Verified Allergy, Mild, 04/15/22) paroxetine (Verified Allergy, Unknown, 04/15/22) Penicillins (Verified Adverse Reaction, Mild, tolerates Zosyn, 12/06/22) Patient Home Medication List Home Medication List Reviewed: Yes Aspirin (Children's Aspirin) 81 Mg Tab.chew, 81 MG PO DAILY Prescribed by: LONI NOGUERA on 12/08/221121 Calcium Carbonate/Vitamin D3 (Calcium 600 + Vit D 200 Tablet) 600 Mg Calcium-5 Mcg (200 Unit) Tablet, 1 TAB PO BID Prescribed by: LONI NOGUERA on 12/08/22 112 Carvedilol (Carvedilol) 3.125 Mg Tablet, 3.125 MG PO BID WITH MEALS Prescribed by: LONI NOGUERA on 12/08/221121 Clopidogrel Bisulfate (Clopidogrel) 75 Mg Tablet, 75 MG PO DAILY Prescribed by: LONI NOGUERA on 12/08/221121 Fexofenadine HCl (Fexofenadine HCl) 180 Mg Tablet, 180 MG PO DAILY Prescribed by: LONI NOGUERA on 12/08/221121 Fluconazole (Fluconazole) 100 Mg Tablet, 100 MG PO DAILY Prescribed by: LONI NOGUERA on 12/08/221121 Fluticasone Propionate (Fluticasone Propionate) 50 Mcg/Actuation [place].susp, 1 SPRAY NSEACH BID Prescribed by: LONI NOGUERA on 12/08/221121 Fluticasone/Vilanterol (Breo Ellipta 100-25 Mcg INH) 100 Mcg-25 Mcg/Dose Blst.w.dev, 1 PUFF INH DAILY Prescribed by: LONI NOGUERA on 12/08/221121 Ipratropium/Albuterol Sulfate (Iprat-Albut 0.5-3(2.5) mg/3 ml) 0.5 Mg-3 Mg (2.5 Mg Base)/3 Ml Ampul.neb, 3 ML IH Q4H Prescribed by: LONI NOGUERA on 12/08/221121 Lorazepam (Ativan) 0.5 Mg Tablet, 0.5 MG PO BID Prescribed by: LONI NOGUERA 12/08/221122 Melatonin (Melatonin) 5 Mg Tablet, 10 MG PO HS Prescribed by: LONI NOGUERA on 12/08/221121 Mirtazapine (Mirtazapine) 15 Mg Tablet, 15 MG PO HS Prescribed by: LONI NOGUERA 12/08/221121 Montelukast Sodium (Montelukast Sodium) 10 Mg Tablet, 10 MG PO HS Prescribed by: LONI NOGUERA on 12/08/221121 Oxybutynin Chloride (Oxybutynin Chloride) 5 Mg Tablet, 5 MG PO BID Prescribed by: LONI NOGUERA 12/08/221121 Pantoprazole Sodium (Pantoprazole Sodium) 40 Mg Tablet.dr, 40 MG PO DAILY Prescribed by: LONI NOGUERA on 12/08/221121 Potassium Chloride (K-Tab ER) 10 Meq Tablet.er, 10 MEQ PO DAILY Prescribed by: LONI NOGUERA 12/08/221121 Pravastatin Sodium (Pravastatin Sodium) 40 Mg Tablet, 40 MG PO HS Prescribed by: LONI NOGUERA on 12/08/221121 Quetiapine Fumarate (Quetiapine Fumarate) 100 Mg Tablet, 50 MG PO 0800,1600,2200 Prescribed by: LONI NOGUERA on 12/08/221121 Rivastigmine Tartrate (Rivastigmine) 1.5 Mg Capsule, 1.5 MG PO BID Prescribed by: LONI NOGUERA on 12/08/22 1122 Torsemide (Torsemide) 10 Mg Tablet, 20 MG PO DAILY Prescribed by: LONI NOGUERA on 12/08/22 1122 Discontinued Medications Acetaminophen (Tylenol Extra Strength) 500 Mg Tablet, 1,000 MG PO 1100,1600, (Reported) Entered as Reported by: MARIELLA PALMA on 10/03/16 0753 Amlodipine Besylate (Amlodipine Besylate) 5 Mg Tablet, 5 MG PO DAILY, (Reported) Entered as Reported by: TERESA NAGEL on 11/25/22 1403 Benzonatate (Benzonatate) 200 Mg Capsule, 200 MG PO Q8H PRN for COUGH, (Rep orted) Entered as Reported by: TERESA NAGEL on 11/25/22 1403 Diphenhydramine HCl (Benadryl) 25 Mg Capsule, 25-50 MG PO DAILY, (Reported) Entered as Reported by: TERESA NAGEL on 11/25/22 1403 Diphenhydramine HCl (Benadryl) 25 Mg Capsule, 25-50 MG PO HS PRN for ALLERGY SYMPTOMS, (Reported) Entered as Reported by: TERESA NAGEL on 11/25/22 1403 Furosemide (Furosemide) 20 Mg Tablet, 20 MG PO DAILY, (Reported) Entered as Reported by: TERESA NAGEL on 04/15/22 1641 Guaifenesin (Mucus Relief) 600 Mg Tab.er.12h, 600 MG PO Q12H PRN for CONGESTION, (Reported) Entered as Reported by: TERESA NAGEL on 11/25/22 1403 Levofloxacin (Levofloxacin) 500 Mg Tablet, 500 MG PO DAILY, (Reported) Entered as Reported by: TOBIN STACY on 12/01/22 1408 Oxybutynin Chloride (Oxybutynin Chloride ER) 10 Mg Tab.er.24, 10 MG PO DAILY, (Reported) Entered as Reported by: TERESA NAGEL on 07/18/19 1004 Review of Systems Review of Systems Constitutional: see HPI EENTM: other (Dry mucous membranes) Respiratory: other (Dyspnea and tachypnea) Cardiovascular: see HPI Gastrointestinal: no symptoms reported Genitourinary: no symptoms reported : No Musculoskeletal: no symptoms reported Skin: see HPI Psychiatric/Neurological: See HPI Hematologic/Lymphatic: No Symptoms Reported Immunological/Allergic: no symptoms reported Past Anopgtp-Iiiwwr-Fonrjg Hx Patient Social History Use of E-Cig and/or Vaping dev: Unable to obtain Substance use?: Unable to obtain Alcohol Use?: Unable to obtain Pt feels they are or have been: Unable to obtain Immunizations Up To Date Tetanus Booster (TDap): Unknown PED Vaccines UTD: Yes First/Initial COVID19 Vaccinat: stated 'information is on file already" Second COVID19 Vaccination Timmy: stated 'information is on file already" Third COVID19 Vaccination Date: stated 'information is on file already" Seasonal Allergies Seasonal Allergies: No Past Medical History Surgery/Hospitalization HX: FX RT ANKLE, RT SHOULDER, HYST, GALLBLADDER, NASAL SURGERY, EYE SURGERY Surgeries: Yes Abdominal, Appendectomy, Eye Surgery, Gallbladder, 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, Joint Replacement, Orthopedic, Pacemaker Respiratory: Yes Pneumonia, COPD Currently Using CPAP: No Currently Using BIPAP: No Cardiac: Yes (Congestive heart failure with EF of 35 percent) Atrial Fibrillation, High Cholesterol, Hypertension Neurological: Yes Dementia 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 Disorders: Yes Female 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 Disorders: Denies, Endometriosis 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: 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, Menopausal Sexually Transmitted Disease: No HIV/AIDS: No Genitourinary: No Gastrointestinal: Yes (BLEEDING ULCER X 3; PERFORATED ULCER 2006; 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) Gastrointestinal Bleed, Chronic Diarrhea, Polyps, Ulcer, Irritable Bowel Musculoskeletal: Yes Degenerate Disk Disease, Arthritis, Chronic Back Pain, Fractures Endocrine: No HEENT: No Cataract Loss of Vision: Denies Hearing Impairment: Hard of Hearing Cancer: No Psychosocial: Yes Anxiety Integumentary: No Blood Disorders: Yes (BILATERAL P.E.'S 04/2018) Adverse Reaction/Blood Tranf: No Family Medical History Blood clots (sister had a blood clot in the brain which caused her  in 2010) Physical Exam-Suspected Sepsis Physical Exam Vital Signs Vital Signs - First Documented 12/15/22 14:23 Temp 36.9 Pulse 69 Resp 24 B/P (MAP) 103/89 (94) Pulse Ox 92 O2 Delivery Nasal Cannula O2 Flow Rate 3.00 Capillary Refill : Less Than 3 Seconds Blood Pressure Mean: 94 Height, Weight, BMI Height: 5'3.00" Weight: 150lbs. 0.0oz. 68.719480eq; 38.00 BMI Method:Stated General Appearance: WD/WN, Mild Distress HEENT: PERRL/EOMI, Normal ENT Inspection, Other (Dry mucous membranes. Warm, indurated, tender, right parotid gland) Neck: Normal Inspection Respiratory: Lungs Clear, Normal Breath Sounds, Other (Tachypnea and dyspnea observed) Cardiovascular: Regular Rate, Rhythm, No Murmur Gastrointestinal: Normal Bowel Sounds, Non Tender; No Distended Extremity: Normal Inspection, No Pedal Edema Neurologic/Psychiatric: Alert, Other (Disoriented, no discernible speech) Skin: warm/dry, rash Focused Exam Lactate Level 12/15/22 14:35: Lactic Acid Level 1.63 Lactic Acid Level Procedures/Interventions Patient Education: Explained Benefits, Explained Risks, Pt. Ack. Understanding Breath Sounds per Auscultation: Clear Heart Sounds per Auscultation: Regular Airway Exam: Mouth opens >2 fingers Sedation Adminstration Time: 0845 Re-examination Time: 0900 Progress/Results/Core Measures Suspected Sepsis SIRS Temperature: Pulse: 69 Respiratory Rate: 24 Laboratory Tests 12/15/22 14:35: White Blood Count 22.3H Blood Pressure 103 /89 Mean: 94 12/15/22 14:35: Lactic Acid Level 1.63 Laboratory Tests 12/15/22 14:35: Creatinine 1.08, INR Comment 1.1, Platelet Count 582H, Total Bilirubin 0.7 Results/Orders Lab Results Laboratory Tests Test 12/15/22 14:30 12/15/22 14:35 12/15/22 19:27 12/15/22 19:55 Range/Units Glucometer 167 H 70-110 MG/DL White Blood Count 22.3 H 4.3-11.0 10^3/uL Red Blood Count 4.01 3.80-5.11 10^6/uL Hemoglobin 9.2 L 11.5-16.0 g/dL Hematocrit 30 L 35-52 % Mean Corpuscular Volume 76 L 80-99 fL Mean Corpuscular Hemoglobin 23 L 25-34 pg Mean Corpuscular Hemoglobin Concent 30 L 32-36 g/dL Red Cell Distribution Width 21.3 H 10.0-14.5 % Platelet Count 582 H 130-400 10^3/uL Mean Platelet Volume 9.8 9.0-12.2 fL Immature Granulocyte % (Auto) 1 % Neutrophils (%) (Auto) 80 H 42-75 % Lymphocytes (%) (Auto) 10 L 12-44 % Monocytes (%) (Auto) 8 0-12 % Eosinophils (%) (Auto) 1 0-10 % Basophils (%) (Auto) 1 0-10 % Neutrophils # (Auto) 17.8 H 1.8-7.8 10^3/uL Lymphocytes # (Auto) 2.2 1.0-4.0 10^3/uL Monocytes # (Auto) 1.8 H 0.0-1.0 10^3/uL Eosinophils # (Auto) 0.2 0.0-0.3 10^3/uL Basophils # (Auto) 0.1 0.0-0.1 10^3/uL Immature Granulocyte # (Auto) 0.2 H 0.0-0.1 10^3/uL Neutrophils % (Manual) 84 % Lymphocytes % (Manual) 10 % Monocytes % (Manual) 5 % Eosinophils % (Manual) 0 % Basophils % (Manual) 0 % Band Neutrophils 1 % Polychromasia MODERATE Hypochromasia MARKED Anisocytosis MARKED Microcytosis SLIGHT Prothrombin Time 14.7 12.2-14.7 SEC INR Comment 1.1 0.8-1.4 Activated Partial Thromboplast Time 29 24-35 SEC Sodium Level 133 L 135-145 MMOL/L Potassium Level 4.1 3.6-5.0 MMOL/L Chloride Level 91 L 98-107 MMOL/L Carbon Dioxide Level 28 21-32 MMOL/L Anion Gap 14 5-14 MMOL/L Blood Urea Nitrogen 20 H 7-18 MG/DL Creatinine 1.08 0.60-1.30 MG/DL Estimat Glomerular Filtration Rate 52 BUN/Creatinine Ratio 19 Glucose Level 156 H 70-105 MG/DL Lactic Acid Level 1.63 0.50-2.00 MMOL/L Calcium Level 10.1 8.5-10.1 MG/DL Corrected Calcium 10.4 H 8.5-10.1 MG/DL Magnesium Level 1.8 1.6-2.4 MG/DL Total Bilirubin 0.7 0.1-1.0 MG/DL Aspartate Amino Transf (AST/SGOT) 21 5-34 U/L Alanine Aminotransferase (ALT/SGPT) 18 0-55 U/L Alkaline Phosphatase 58 40-136 U/L Myoglobin 45.9 10.0-92.0 NG/ML Troponin I 0.175 H <0.028 NG/ML C-Reactive Protein High Sensitivity 10.57 H 0.00-0.50 MG/DL B-Type Natriuretic Peptide 2880.7 H <100.0 PG/ML Total Protein 7.0 6.4-8.2 GM/DL Albumin 3.6 3.2-4.5 GM/DL Bedside Blood Gas pH (LAB) 7.446 H 7.310-7.410 Bedside Blood Gas pCO2 (LAB) 43.2 41.0-51.0 mmHg Bedside Blood Gas pO2 (LAB) 31 *L 80-105 mmHg Bedside Blood Gas HCO3 (LAB) 29.8 H 23.0-28.0 mmol/L POC Blood Gas Total CO2 Calc 31 H 24-29 mmol/L Bedside Bl Gas O2 Saturation (Calc) 63 L 95-98 % Bedside Arterial Blood Base Excess 6 H -2-3 mmol/L Urine Color YELLOW Urine Clarity SL CLOUDY Urine pH 6.0 5-9 Urine Specific [place] <=1.005 1.016-1.022 Urine Protein TRACE H NEGATIVE Urine Glucose (UA) NEGATIVE NEGATIVE Urine Ketones TRACE H NEGATIVE Urine Nitrite NEGATIVE NEGATIVE Urine Bilirubin NEGATIVE NEGATIVE Urine Urobilinogen 0.2 < = 1.0 MG/DL Urine Leukocyte Esterase TRACE H NEGATIVE Urine RBC (Auto) NEGATIVE NEGATIVE Urine RBC NONE /HPF Urine WBC 5-10 H /HPF Urine Squamous Epithelial Cells 10-25 H /HPF Urine Crystals NONE /LPF Urine Bacteria FEW H /HPF Urine Casts PRESENT /LPF Urine Hyaline Casts 0-2 H /LPF Urine Mucus NEGATIVE /LPF Urine Culture Indicated YES Test 12/15/22 19:59 Range/Units Influenza Type A (RT-PCR) Not Detected Not Detecte Influenza Type B (RT-PCR) Not Detected Not Detecte SARS-CoV-2 RNA (RT-PCR) Not Detected Not Detecte My Orders Orders - SPIKE NIX MD Cbc With Automated Diff (12/15/22 15:03) Comprehensive Metabolic Panel (12/15/22 15:03) Hs C Reactive Protein (12/15/22 15:03) Magnesium (12/15/22 15:03) Ua Culture If Indicated (12/15/22 15:03) Ed Iv/Invasive Line Start (12/15/22 15:03) Blood Culture (12/15/22 15:06) Sputum Culture (12/15/22 15:06) Protime With Inr (12/15/22 15:06) Partial Thromboplastin Time (12/15/22 15:06) Chest 1 View, Ap/Pa Only (12/15/22 15:06) Vital Signs Adult Sepsis Patie Q15M (12/15/22 15:06) O2 (12/15/22 15:06) Remove Rings In Anticipation O (12/15/22 15:06) Lactic Acid Analyzer (12/15/22 15:06) Manual Differential (12/15/22 14:35) Ct Head Wo-R/O Stroke (12/15/22 17:20) [place]son Cath (12/15/22 17:21) Ns Iv 1000 Ml (Sodium Chloride 0.9%) (12/15/22 17:30) Cefepime Injection (Maxipime Injection) (12/15/22 17:30) Ekg Tracing (12/15/22:24) Myoglobin Serum (12/15/22 17:24) Monitor-Rhythm Ecg Trace Only (12/15/22 17:24) Lipid Panel (12/16/22 06:00) Troponin I [place] (12/15/22 17:24) Bnp [place] (12/15/22 17:24) Clindamycin 900 Mg/50 Ml Ivpb (Cleocin P (12/15/22 17:30) Iohexol Injection (Omnipaque 350 Mg/Ml 1 (12/15/22 17:30) Received Contrast (Hold Metformin- Contr (12/15/22 17:30) Ns (Ivpb) (Sodium Chloride 0.9% Ivpb Bag (12/15/22 17:30) Fentanyl Inj (Sublimaze Injection) (12/15/22 17:45) Ct Angio Chest W (R/O Pe) (12/15/22 17:31) Ct Neck (Soft Tissue) W (12/15/22 17:20) Covid 19 Inhouse Test (12/15/22 19:14) Influenza A And B By Pcr (12/15/22 19:14) Arterial Blood Draw - Obtain (12/15/22 ) Furosemide Injection (Lasix Injection) (12/15/22 20:00) Urine Culture (12/15/22 19:55) Fluconazole 200 Mg/100 Ml (Diflucan Iv) (12/15/22 20:45) Medications Given in ED Current Medications Medications Dose Ordered Sig/Lee Route Start Time Stop Time Status Last Admin Dose Admin Cefepime HCl 2000 mg/Sodium Chloride 50 ml @ 100 mls/hr ONCE ONCE IV 12/15/22 17:30 12/15/22 17:59 DC 12/15/22 17:40 100 MLS/HR Clindamycin Phosphate/Dextrose 50 ml @ 100 mls/hr ONCE ONCE IV 12/15/22 17:30 12/15/22 17:59 DC 12/15/22 18:54 100 MLS/HR Fentanyl Citrate 50 mcg ONCE ONCE IVP 12/15/22 17:45 12/15/22 17:46 DC 12/15/22 17:40 50 MCG Furosemide 40 mg ONCE ONCE IVP 12/15/22 20:00 12/15/22 20:01 DC 12/15/22 20:25 40 MG Iohexol 100 ml ONCE ONCE IV 12/15/22 17:30 12/15/22 17:31 DC 12/15/22 18:02 100 ML Sodium Chloride 100 ml ONCE ONCE IV 12/15/22 17:30 12/15/22 17:31 DC 12/15/22 18:02 70 ML Vital Signs/I&O 12/15/22 14:23 Temp 36.9 Pulse 69 Resp 24 B/P (MAP) 103/89 (94) Pulse Ox 92 O2 Delivery Nasal Cannula O2 Flow Rate 3.00 Capillary Refill : Less Than 3 Seconds Blood Pressure Mean: 94 Progress Note : Progress Note Patient was examined. Notes from prior admission were reviewed. senior living papers were reviewed. Family was interviewed. Thorough work-up was pursued. Family was concerned about stroke. CT of the head was obtained. No intracranial hemorrhages, masses, or evidence of ischemia were noted on my interpretation. Radiologist's report concurred with this interpretation. Labs were obtained. Patient had notable leukocytosis on the CBC. CMP revealed mild hyperglycemia and slightly elevated CRP. CMP was otherwise grossly unremarkable. Urinalysis was suggestive of mild pyuria with a small amount of WBC and bacteria present. Chest x-ray was suggestive of infiltrate and/or congestion. Patient was known to have an ejection fraction of 35 to 40% on her most recent echocardiogram. Chest x-ray would suggest findings of congestive failure. CT soft tissues of the neck was viewed by me. No overt abscesses were noted on my interpretation. There were no stones found within the parotid gland. The right parotid gland was inflamed and enlarged. CT report was reviewed and concurred with these findings. CT angiogram of the chest revealed no pulmonary emboli. Pleural effusions were noted. There was questionable infiltrate along with the effusions. Report was reviewed as below. ABG was thought to be venous in nature due to the very low PaO2 when patient had oxygen saturations in the 90s on pulse oximeter. Due to concerns for possible pneumonia and urinary tract infection, empiric antibiotic therapy was given with cefepime. Clindamycin was added for treatment of the parotitis. Influenza and COVID swabs were obtained to evaluate for sources of the parotitis. Both were negative. Troponin was elevated at 0.175 but this was a downward trend from ann or. I discussed CODE STATUS with patient's niece and daughter who are co-POA. They agree that she should be DNR in her current state. Case was discussed with Dr. Neal, hospitalist, who agrees to admission. Dr. Louie was consulted and suggested diuretic therapy given the elevated BNP and evidence of congestion and pleural effusions. These findings would suggest congestive failure. Report was given to eICU. ECG Initial ECG Impression Date: Dec 15, 2022 Initial ECG Impression Time: 18:16 Initial ECG Rate: 69 Comment Paced rhythm with no evidence of ischemic changes. Diagnostic Imaging Diagonstic Imaging: Xray Plain Films/CT/US/NM/MRI: chest Comments NAME: AILEEN DUMONT [facility] REC#: [id number] PT STATUS: REG ER : 1940 PHYSICIAN: SPIKE NIX MD ADMIT DATE: 12/15/22/ER Signed Date of Exam:12/15/22 CHEST 1 VIEW, AP/PA ONLY Indication: Chest pain Portable chest at 3:05 PM There is a dual-chamber pacemaker. Heart size is normal. There is pulmonary vascular congestion. There are no effusions or pneumothoraces. IMPRESSION: Pulmonary vascular congestion. Dictated by: Dictated on workstation # [id number] Dict: 12/15/22 1520 Trans: 12/15/22 1726 ACB [id number] Interpreted by: BARBRA STEELE MD Electronically signed by: BARBRA STEELE MD 12/15/221725 Diagonstic Imaging: CT Plain Films/CT/US/NM/MRI: head Comments NAME: AILEEN DUMONT [facility] REC#: [id number] PT STATUS: REG ER : 1940 PHYSICIAN: SPIKE NIX MD ADMIT DATE: 12/15/22/ER Signed Date of Exam:12/15/22 CT HEAD WO-R/O STROKE INDICATION: Altered mental status. TECHNIQUE: Multiple contiguous axial images were obtained through the brain without the use of intravenous contrast. Auto Exposure Controls were utilized during the CT exam to meet ALARA standards for radiation dose reduction. COMPARISON: Comparison made with 04/10/2022. FINDINGS: There are diffuse atrophic changes. There is prominence of the extra-axial spaces which is probably secondary to volume loss and appears similar to the prior study. There is no acute hemorrhage. There are mild chronic changes in deep white matter. Ventricles are normal in size. Calvarial windows show no fractures. IMPRESSION: Atrophy with prominence of the extra-axial spaces, most likely secondary to volume loss. No hemorrhage or acute territorial ischemia is detected. Dictated by: Dictated on workstation # [id number] Dict: 12/15/22 1759 Trans: 12/15/22 180 [facility] [id number] Interpreted by: RHONDA OROZCO MD Electronically signed by: RHONDA OROZCO MD 12/15/221806 Diagonstic Imaging: CT Plain Films/CT/US/NM/MRI: other (soft tissues neck) Comments NAME: AILEEN DUMONT [facility] REC#: [id number] PT STATUS: REG ER : 1940 PHYSICIAN: SPIKE NIX MD ADMIT DATE: 12/15/22/ER Signed Date of Exam:12/15/22 CT NECK (SOFT TISSUE) W INDICATION: Altered mental status, rash, neck swelling. CT TECHNIQUE: Multiple contiguous axial images were obtained through the neck after the administration of contrast. Auto Exposure Controls were utilized during the CT exam to meet ALARA standards for radiation dose reduction. FINDINGS: CT neck soft tissue study performed. The visualized portions of the lung apices were clear. There is no bony abnormality detected. The right parotid gland appears asymmetrically prominent compared to the left with some edema, suggesting inflammatory change. There is no discrete abscess. There are no enlarged nodes in the neck soft tissues. Thyroid gland and submandibular glands appear unremarkable. IMPRESSION: There is asymmetric swelling of the right parotid gland with some edema, suggesting inflammatory process. There is no discrete abscess or adenopathy. Visualized portions of the lung apices are clear. Dictated by: Dictated on workstation # [id number] Dict: 12/15/221808 Trans: 12/15/221904 AS6 [id number] Interpreted by: RHONDA OROZCO MD Electronically signed by: RHONDA OROZCO MD 12/15/221904 Diagonstic Imaging: CT Plain Films/CT/US/NM/MRI: chest Comments NAME: AILEEN DUMONT [facility] REC#: [id number] PT STATUS: REG ER : 1940 PHYSICIAN: SPIKE NIX MD ADMIT DATE: 12/15/22/ER Signed Date of Exam:12/15/22 CT ANGIO CHEST W (R/O PE) CT angiogram of the chest with contrast. INDICATION: Hypoxia and chest pain. TECHNIQUE: After intravenous administration of contrast, thin section axial CT angiography of the chest was performed. Multiple reconstructions were provided including MIP reformats. FINDINGS: There is adequate opacification of the pulmonary arteries for diagnostic assessment. There is no filling defect present or evidence of pulmonary embolism. There are no features of right ventricular strain. There is cardiomegaly. There are bilateral pleural effusions, right greater than left, with some associated dependent atelectasis. The lungs otherwise appear clear. There is no pneumothorax. There is no suspicious nodule or mass. There are no findings of abnormal mediastinal adenopathy. There are coronary calcifications present. There is a pacemaker device in place. There is reflux of contrast into the hepatic veins. As there is no embolus or bowing of the ventricular septum, this may relate to right-sided heart dysfunction. Note is made of a moderate hiatal hernia. There is no acute osseous abnormality. There are background features of multilevel degenerative disc disease. IMPRESSION: 1. No CT angiographic evidence of a pulmonary artery filling defect or findings of embolism. 2. As there no embolism or bowing of the ventricular septum, the reflux of contrast into the hepatic veins may relate to right-sided heart dysfunction. There are no findings by CT felt suspect for right ventricular strain. 3. Right greater than left pleural effusions with bibasilar atelectasis. Dictated by: Dictated on workstation # [id number] Dict: 12/15/22 180 Trans: 12/15/221816 [facility] [id number] Interpreted by: MADISYN CAMERON MD Electronically signed by: MADISYN CAMERON MD 12/15/221816 Departure Communication (Admissions) Time/Spoke to Admitting Phy: 19:40 Dr. Neal Time/Spoke to Consulting Phy: 19:45 Dr. Louie Impression Primary Impression: Acute exacerbation of congestive heart failure Qualified Codes: I50.9 - Heart failure, unspecified Additional Impressions: Altered mental status Qualified Codes: R41.82 - Altered mental status, unspecified Parotitis UTI (urinary tract infection) Qualified Codes: N39.0 - Urinary tract infection, site not specified Candidiasis of perineum Disposition: ADMITTED INPATIENT Condition: Stable Admissions Decision to Admit Reason: Admit from ER (General) Decision to Admit/Date: Dec 15, 2022 Time/Decision to Admit Time: 19:40 Departure-Patient Inst. Referrals: BERNICE CLINE (PCP/Family) Primary Care Physician Copy Copies To 1: BERNICE CLINE JOSHUA T MD Dec 15, 2022 17:33
[2022-12-15] MEDS ORDERED: fentaNYL INJ 100 MCG/2 ML AMP IVP ONE (17:45)
--- NOTE | 2022-12-15 18:04 | Diagnostic Imaging Report ---
INDICATION: Altered mental status. TECHNIQUE: Multiple contiguous axial images were obtained through the brain without the use of intravenous contrast. Auto Exposure Controls were utilized during the CT exam to meet ALARA standards for radiation dose reduction. COMPARISON: Comparison made with 04/10/2022. FINDINGS: There are diffuse atrophic changes. There is prominence of the extra-axial spaces which is probably secondary to volume loss and appears similar to the prior study. There is no acute hemorrhage. There are mild chronic changes in deep white matter. Ventricles are normal in size. Calvarial windows show no fractures. IMPRESSION: Atrophy with prominence of the extra-axial spaces, most likely secondary to volume loss. No hemorrhage or acute territorial ischemia is detected. Dictated by: Dictated on workstation # [id number]
--- NOTE | 2022-12-15 18:17 | Diagnostic Imaging Report ---
CT angiogram of the chest with contrast. INDICATION: Hypoxia and chest pain. TECHNIQUE: After intravenous administration of contrast, thin section axial CT angiography of the chest was performed. Multiple reconstructions were provided including MIP reformats. FINDINGS: There is adequate opacification of the pulmonary arteries for diagnostic assessment. There is no filling defect present or evidence of pulmonary embolism. There are no features of right ventricular strain. There is cardiomegaly. There are bilateral pleural effusions, right greater than left, with some associated dependent atelectasis. The lungs otherwise appear clear. There is no pneumothorax. There is no suspicious nodule or mass. There are no findings of abnormal mediastinal adenopathy. There are coronary calcifications present. There is a pacemaker device in place. There is reflux of contrast into the hepatic veins. As there is no embolus or bowing of the ventricular septum, this may relate to right-sided heart dysfunction. Note is made of a moderate hiatal hernia. There is no acute osseous abnormality. There are background features of multilevel degenerative disc disease. IMPRESSION: 1. No CT angiographic evidence of a pulmonary artery filling defect or findings of embolism. 2. As there no embolism or bowing of the ventricular septum, the reflux of contrast into the hepatic veins may relate to right-sided heart dysfunction. There are no findings by CT felt suspect for right ventricular strain. 3. Right greater than left pleural effusions with bibasilar atelectasis. Dictated by: Dictated on workstation # [id number]
--- NOTE | 2022-12-15 18:19 | Diagnostic Imaging Report ---
INDICATION: Altered mental status, rash, neck swelling. CT TECHNIQUE: Multiple contiguous axial images were obtained through the neck after the administration of contrast. Auto Exposure Controls were utilized during the CT exam to meet ALARA standards for radiation dose reduction. FINDINGS: CT neck soft tissue study performed. The visualized portions of the lung apices were clear. There is no bony abnormality detected. The right parotid gland appears asymmetrically prominent compared to the left with some edema, suggesting inflammatory change. There is no discrete abscess. There are no enlarged nodes in the neck soft tissues. Thyroid gland and submandibular glands appear unremarkable. IMPRESSION: There is asymmetric swelling of the right parotid gland with some edema, suggesting inflammatory process. There is no discrete abscess or adenopathy. Visualized portions of the lung apices are clear. Dictated by: Dictated on workstation # [id number]
[2022-12-15] MEDS ORDERED: FUROSEMIDE 40 MG/4 ML INJ (LASIX) IVP ONE (20:00)
[2022-12-15 20:07] LABS: BILIRUBIN,URINE NEGATIVE (NEGATIVE); CLARITY,URINE SL CLOUDY; COLOR,URINE YELLOW; GLUCOSE, URINE (UA) NEGATIVE (NEGATIVE); KETONES,URINE TRACE (NEGATIVE); LEUKOCYTE ESTERASE ,URINE TRACE (NEGATIVE); NITRITE,URINE NEGATIVE (NEGATIVE); PROTEIN,URINE TRACE (NEGATIVE)
[2022-12-15 20:26] LABS: BACTERIA,URINE FEW /HPF; HYALINE CASTS, URINE 0-2 /LPF
[2022-12-15] MEDS ORDERED: FLUCONAZOLE 200 MG/100 ML 100 ML IV ONE (20:45)
[2022-12-15 21:35] VITALS: BP 119/96
[2022-12-15] MEDS ORDERED: ONDANSETRON 4 MG/2 ML (SDV) Z0FRAN IV PRN (23:30)
[2022-12-15] MEDS ORDERED: fentaNYL INJ 100 MCG/2 ML AMP IV PRN (23:30)
--- NOTE | 2022-12-15 23:34 | CONSULTATION REPORT ---
DATE OF SERVICE: 12/15/2022 ATTENDING PRIMARY CARE PHYSICIAN: Nabeel Neal MD HISTORY OF PRESENT ILLNESS: The patient is an 82-year-old female who presented to the Emergency Department from her extended care facility due to altered mental status and increased weakness. Family had also noticed the development of a rash as well as some swelling and tenderness along the right parotid region. The patient was evaluated in the Emergency Department. She does have a significant amount of dementia. The patient did have a history of a recent pneumonia and was also found to be hypotensive and elevated white count of 22,000. The patient will require a central venous catheter for continued IV fluids, IV antibiotics as well as other medications and vasopressors. PAST MEDICAL HISTORY: COPD, atrial fibrillation, hypercholesterolemia, hypertension, congestive heart failure, dementia, history of endometriosis, peptic ulcer disease, rectocele, irritable bowel syndrome, degenerative joint disease, cataracts, anxiety, history of bilateral pulmonary emboli, 04/2018. PAST SURGICAL HISTORY: Appendectomy, cholecystectomy, total hysterectomy, multiple orthopedic procedures, nasal surgery, laparoscopic cholecystectomy. ALLERGIES: TORADOL, MORPHINE, TETRACYCLINE, PAROXETINE, PENICILLIN. MEDICATIONS: Aspirin 81 mg daily, Plavix 75 mg daily, fexofenadine 100 mg daily, fluconazole 100 mg daily, fluticasone spray 50 mcg b.i.d., ipratropium/albuterol 5/2.5 mg q.4 hours, lorazepam 5 mg b.i.d., mirtazapine 15 mg daily, montelukast 10 mg daily, oxybutynin 5 mg b.i.d., Protonix 40 mg daily, potassium 10 mEq daily, pravastatin 40 mg daily, quetiapine 100 mg t.i.d., rivastigmine 1.5 mg b.i.d., torsemide 10 mg daily, benzonatate 200 mg p.o. q.8 hours p.r.n., diphenhydramine 25 mg daily, furosemide [ ] mg daily, levofloxacin 500 mg daily. SOCIAL HISTORY: Unsure of smoking and alcohol history. FAMILY HISTORY: Sister with a history of stroke. VITAL SIGNS: Temperature 36.9, blood pressure 103/89, pulse 69, respirations 24, pulse ox 92% on 3 liters nasal cannula. REVIEW OF SYSTEMS: Well-nourished female who is confused and will make sounds and respond to voice; however, incoherent. It does not appear that she is short of breath or using accessory muscles. No cough or sputum production. No nausea or vomiting. No diarrhea or constipation. No known fevers or chills or any recent inadvertent weight loss. All other review of systems negative. PHYSICAL EXAMINATION: CHEST: Scattered rales and rhonchi bilaterally. HEART: Regular. No murmurs. EXTREMITIES: No lower extremity edema. Negative Homans sign. HEENT: No scleral icterus. No cervical lymphadenopathy. ABDOMEN: Soft, nontender, nondistended. SKIN: Warm, dry. LABORATORY DATA: WBC 22.3, hemoglobin 9.2, hematocrit 30, platelets 582, BUN 20, creatinine 1.08. BNP 2880.7. Urinalysis: Trace leukocyte esterase, few bacteria. ASSESSMENT AND PLAN: An 82-year-old female with extensive past medical history with a urinary tract infection, history of congestive heart failure, possible parotitis, hypotension and sepsis. Due to her developing symptoms as well as extensive past medical history and likely hypotension and sepsis, she will require central venous catheter for ongoing IV resuscitation, antibiotics, other medications including vasopressors and we will proceed with placement of a central venous catheter. Job ID: [id number] DocumentID: [id number] Dictated Date: 12/15/2022 23:12:17 Community Service Director Date: 12/15/2022 23:33:00 Dictated By: SMITH SCHWARTZ MD
[2022-12-15] MEDS: fentaNYL INJ 100 MCG/2 ML AMP IVP PRN (23:55)
[2022-12-16] MEDS: LACTATED RINGERS 1,000 ML IV SCH ×2 (00:12→08:22)
[2022-12-16] MEDS ORDERED: LACTATED RINGERS 1,000 ML IV SCH (00:15)
--- NOTE | 2022-12-16 01:57 | OPERATIVE REPORT ---
DATE OF SERVICE: 12/15/2022 ATTENDING PRIMARY CARE PHYSICIAN: Dr. Nabeel Neal. PREOPERATIVE DIAGNOSES: Urinary tract infection, possible parotitis, congestive heart failure, hypotension and sepsis. POSTOPERATIVE DIAGNOSES: Urinary tract infection, possible parotitis, congestive heart failure, hypotension and sepsis. PROCEDURE: Placement of right subclavian central venous catheter. SURGEON: Smith Schwartz MD ANESTHESIA: Local. ESTIMATED BLOOD LOSS: Minimal. FINDINGS: Catheter tip at superior vena caval -- right atrial junction. DISPOSITION: The patient tolerated the procedure well. INDICATIONS: The patient is an 82-year-old female, resident of an [facility] care facility. The patient was brought to the Emergency Department due to altered mental status, weakness and generalized malaise. The patient had a history of bilateral pulmonary emboli in 2018. A CT scan did not show any signs of recurrent emboli. The patient was found to be hypotensive with an elevated white count of 22,000 urinary tract infection as well as a possible parotitis. Due to very poor peripheral venous circulation as well as a need for ongoing IV fluids, IV antibiotics and vasopressor, she will require a central venous catheter. DESCRIPTION OF PROCEDURE: The chest and neck were prepped and draped in standard surgical fashion. 1% lidocaine was then used to anesthetize the right subclavian region. The right subclavian vein was then cannulated with drawing of venous blood. The guidewire was then inserted without any resistance. The cannulating needle removed and a skin incision made using 11 blade. A tract was then created using a venous dilator and through this opening, a triple lumen central venous catheter was placed over the guidewire using the Seldinger technique. Guidewire was removed and all 3 ports yao venous blood and saline pushed in without any resistance. The catheter was then sutured to the skin using interrupted 3-0 silk sutures. Catheter was then cleaned and covered with Op-Site. The patient tolerated the procedure well. Chest x-ray did show good placement and the catheter may be accessed and used at any time. Job ID: [id number] DocumentID: [id number] Dictated Date: 12/15/2022 23:15:43 Death Claim Examiner Date: 12/16/2022 01:55:00 Dictated By: SMITH SCHWARTZ MD
[2022-12-16] MEDS: CEFEPIME 1,000 MG/NS 50 ML IVPB IV SCH ×6 (03:18→18:18)
[2022-12-16 03:50] LABS: BASOPHILS # (AUTO) 0.1 10^3/uL (0.0-0.1); BASOPHILS % (AUTO) 1 % (0-10); EOSINOPHILS # (AUTO) 0.1 10^3/uL (0.0-0.3); EOSINOPHILS % (AUTO) 0 % (0-10); HEMATOCRIT 30 % (35-52); HEMOGLOBIN 8.9 g/dL (11.5-16.0); LYMPHOCYTES # (AUTO) 1.6 10^3/uL (1.0-4.0); LYMPHOCYTES % (AUTO) 7 % (12-44); MEAN CORPUSCULAR HEMOGLOBIN 23 pg (25-34); MEAN CORPUSCULAR HGB CONC 30 g/dL (32-36); MEAN CORPUSCULAR VOLUME 76 fL (80-99); MONOCYTES # (AUTO) 1.9 10^3/uL (0.0-1.0); MONOCYTES % (AUTO) 8 % (0-12); NEUTROPHILS # (AUTO) 19.7 10^3/uL (1.8-7.8); NEUTROPHILS % (AUTO) 84 % (42-75); PLATELET COUNT 552 10^3/uL (130-400); WHITE BLOOD COUNT 23.6 10^3/uL (4.3-11.0)
[2022-12-16 04:13] LABS: ALBUMIN 3.4 GM/DL (3.2-4.5); BILIRUBIN,TOTAL 0.7 MG/DL (0.1-1.0); CALCIUM 9.5 MG/DL (8.5-10.1); CREATININE SERUM 1.11 MG/DL (0.60-1.30); MAGNESIUM 1.6 MG/DL (1.6-2.4); PHOSPHORUS 3.7 MG/DL (2.3-4.7); POTASSIUM 3.7 MMOL/L (3.6-5.0); TOTAL PROTEIN 6.4 GM/DL (6.4-8.2)
[2022-12-16] MEDS ORDERED: NS IV 500 ML 500 ML IV PRN (04:15)
[2022-12-16] MEDS: MAGNESIUM 1 GM/100 ML IVPB 100 ML IV SCH ×3 (04:55→07:10)
[2022-12-16] MEDS: POTASSIUM CL 10MEQ/50ML IVPB 50 ML IV SCH (04:55)
[2022-12-16] MEDS: CLINDAMYCIN 900 MG/50 ML IVPB 50 ML IV SCH ×2 (05:58→13:14)
[2022-12-16] MEDS ORDERED: POTASSIUM CL 10MEQ/50ML IVPB 50 ML IV SCH (06:00)
[2022-12-16] MEDS ORDERED: MAGNESIUM 1 GM/100 ML IVPB 100 ML IV SCH (06:00)
[2022-12-16] MEDS ORDERED: KCL 20 MEQ TAB (K-DUR) PO SCH (06:00)
--- NOTE | 2022-12-16 06:20 | Diagnostic Imaging Report ---
EXAMINATION: Chest 1 view HISTORY: Line placement COMPARISON: 12/15/2022 FINDINGS: Heart size and pulmonary vasculature are normal. Increasing patchy interstitial and airspace opacities seen within both lungs compared to 12/15/2022. No pneumothorax. There may be trace bilateral pleural effusions present. Right-sided central line placed with the tip projecting over the right atrium. The osseous structures are intact. IMPRESSION: 1. Right-sided central line placement with the tip projecting over the right atrium. No pneumothorax. 2. Increasing interstitial and airspace opacities within the lungs. Dictated by: Dictated on workstation # [id number]
--- NOTE | 2022-12-16 07:34 | Tele-ICU Consult ---
History of Present Illness History of Present Illness Date Seen by Provider: Dec 16, 2022 Time Seen by Provider: 07:32 Date of Admission eICU Critical Care Consult 82yo F brought from ED for AMS, found to be in CHF, known to have systolic dysfunction with LVER 35%, BNP 2596 given one dose of IV Lasix. Pt was hypotensive-now better. central line placed, thought to have parotid gland infection, WBC 22k Also has UIT, started on IV Cefepime, Clindamycin ABG 7.46/ on 4 lpm NC, not in resp distress Pt is DNR Pt is lethargic, moans, knows name and place On camera looks like Mahad-Salcedo breathing Allergies and Home Medications Allergies Coded Allergies: ketorolac (Verified Allergy, Mild, 04/15/22) morphine (Verified Allergy, Mild, pt has received Lortab in the past, 04/16/22) tetracycline (Verified Allergy, Mild, 04/15/22) paroxetine (Verified Allergy, Unknown, 04/15/22) Penicillins (Verified Adverse Reaction, Mild, tolerates Zosyn, 12/06/22) Home Medications Calcium Carbonate/Vitamin D3 600 Mg Calcium-5 Mcg (200 Unit) Tablet, 1 EACH PO Q12H, (Reported) Carvedilol 3.125 Mg Tablet, 3.125 MG PO Q12H, (Reported) Clopidogrel Bisulfate 75 Mg Tablet, 75 MG PO DAILY Prescribed by: LONI NOGUERA on 12/08/221121 Fexofenadine HCl 180 Mg Tablet, 180 MG PO DAILY Prescribed by: LONI NOGUERA on 12/08/221121 Fluticasone Propionate 50 Mcg/Actuation [place].susp, 1 SPRAY NSEACH DAILY, (Reported) Fluticasone/Vilanterol 100 Mcg-25 Mcg/Dose Blst.w.dev, 1 PUFF INH DAILY Prescribed by: LONI NOGUERA on 12/08/22 112 Ipratropium/Albuterol Sulfate 0.5 Mg-3 Mg (2.5 Mg Base)/3 Ml Ampul.neb, 3 ML IH Q4H Prescribed by: LONI NOGUERA on 12/08/22 112 Lorazepam 0.5 Mg Tablet, 0.5 MG PO Q12H, (Reported) Melatonin 5 Mg Tablet, 10 MG PO HS TAKES 2 TABLETS Prescribed by: LONI NOGUERA on 12/08/221121 Mirtazapine 15 Mg Tablet, 15 MG PO HS Prescribed by: LONI NOGUERA on 12/08/221121 Montelukast Sodium 10 Mg Tablet, 10 MG PO HS Prescribed by: LONI NOGUERA on 12/08/221121 Oxybutynin Chloride 5 Mg Tablet, 5 MG PO Q12H, (Reported) Pantoprazole Sodium 40 Mg Tablet.dr, 40 MG PO DAILY Prescribed by: LONI NOGUERA on 12/08/221121 Potassium Chloride 10 Meq Tablet.er, 10 MEQ PO DAILY Prescribed by: LONI NOGUERA on 12/08/221121 Pravastatin Sodium 40 Mg Tablet, 40 MG PO HS Prescribed by: LOIN NOGUERA on 12/08/221121 Quetiapine Fumarate 100 Mg Tablet, 50 MG PO 0800,1600,2200 Prescribed by: LONI NOGUERA on 12/08/221121 Rivastigmine Tartrate 1.5 Mg Capsule, 1.5 MG PO Q12H, (Reported) Torsemide 20 Mg Tablet, 20 MG PO DAILY, (Reported) Past Medical/Social/Family Hx Patient Social History Use of E-Cig and/or Vaping dev: Unable to obtain Substance use?: Unable to obtain Alcohol Use?: Unable to obtain Pt stated abuse/neglect: Unable to obtain Immunizations Up To Date Influenza Vaccine Up-to-Date: Yes; Up-to-Date First/Initial COVID19 Vaccinat: stated 'information is on file already" Second COVID19 Vaccination Timmy: stated 'information is on file already" Tetanus Booster (TDap): Unknown Hepatitis A: No Hepatitis B: No Date of Pneumonia Vaccine: Feb 10, 2015 Current Status status: No status: No Advance Directives: Yes Advance Directive Location: Family to bring in copy Communicates: Unable To Communicate Primary Language: Palestinian Preferred Spoken Language: Palestinian Is interpretation needed?: No Review of Systems Constitutional: see HPI EENTM: see HPI Respiratory: see HPI Cardiovascular: see HPI Gastrointestinal: see HPI Genitourinary: see HPI Musculoskeletal: see HPI Skin: see HPI Psychiatric/Neurological: See HPI Focused Exam Lactate Level 12/15/22 14:35: Lactic Acid Level 1.63 Height, Weight, BMI Height: 5'3.00" Weight: 150lbs. 0.0oz. 68.907045bq; 34.48 BMI Method:Stated Exam Exam Patient acknowledged, consented, and participated in this virtual visit which was conducted using real time audio/video Vital Signs Date Time Temp Pulse Resp B/P (MAP) Pulse Ox O2 Delivery O2 Flow Rate FiO2 12/16/22 07:00 69 12/16/22 06:00 69 36 135/79 (97) 96 Nasal Cannula 4.00 12/16/22 05:00 70 26 148/63 (105) 96 Nasal Cannula 4.00 12/16/22 04:00 69 136/76 (97) 96 Nasal Cannula 4.00 12/16/22 04:00 96 Nasal Cannula 4.00 12/16/22 03:00 69 133/87 (101) 96 Nasal Cannula 4.00 12/16/22 02:00 70 10 134/70 (87) 96 Nasal Cannula 4.00 12/16/22 01:00 69 26 138/70 (103) 97 Nasal Cannula 4.00 12/16/22 01:00 69 12/16/22 00:25 36.8 12/16/22 00:00 69 116/89 (98) 94 Nasal Cannula 4.00 12/16/22 00:00 95 Nasal Cannula 4.00 12/15/22 23:23 36.1 12/15/22 23:21 36.1 12/15/22 23:00 69 26 127/87 (100) 96 Nasal Cannula 4.00 12/15/22 22:45 71 24 137/92 (103) 97 Nasal Cannula 4.00 12/15/22 22:30 69 108/79 (84) 97 Nasal Cannula 4.00 12/15/22 22:15 69 34 119/58 (78) 94 Nasal Cannula 4.00 12/15/22 22:00 69 31 126/60 (80) 95 Nasal Cannula 4.00 12/15/22 21:48 69 12/15/22 21:44 36.9 70 130/83 (100) Nasal Cannula 4.00 12/15/22 21:36 94 Nasal Cannula 4.00 12/15/22 21:35 69 25 119/96 94 Nasal Cannula 4.00 12/15/22 14:23 36.9 69 24 103/89 (94) 92 Nasal Cannula 3.00 12/15/22 14:23 95 Nasal Cannula 2.00 I & O 7/11/23 07:00 Intake Total 1250 ml Output Total 850 ml Balance 400 ml Height & Weight Height: 5'3.00" Weight: 150lbs. 0.0oz. 68.081488sc; 34.48 BMI Method:Stated General Appearance: WD/WN, Mild Distress HEENT: PERRL/EOMI, Normal ENT Inspection, Other (Dry mucous membranes. Warm, indurated, tender, right parotid gland) Neck: Normal Inspection Respiratory: Lungs Clear, Normal Breath Sounds, Decreased Breath Sounds, Other (Tachypnea and dyspnea observed) Cardiovascular: Regular Rate, Rhythm, No Murmur, Other (has paced rhtym) Capillary Refill: Less Than 3 Seconds Gastrointestinal: normal bowel sounds, non tender, soft Extremity: Normal Inspection, No Pedal Edema Neurologic/Psychiatric: Alert, Other (Disoriented, no discernible speech, knows name, place) Skin: Other (has difuuse rash on arms, pannus, legs, got Diflucan IV in ED) Results Lab Laboratory Tests 12/15/22 14:35 12/16/22 03:25 Assessment/Plan Assessment/Plan Parotid gland infection, continue IV Cerepime, Clindamycin sepsis CHF, cardiology to see, Lasix 40 BID IV will continue on abx, has central line but may be able to d/c pt is DNRf/DNI Has subclavian central line, would like to remove, will continue with peripheral IV Critical Care: Critically Ill Patient Time spent with patient (mins): 25 BRANDON BARRERA MD Dec 16, 2022 07:34
--- NOTE | 2022-12-16 08:52 | Consultation-Cardiology ---
HPI-Cardiology Cardiology Consultation: Date of Consultation 12/16/22 Time Seen by a Provider: 08:30 Date of Admission 12-15-22 Attending Physician Kimberly Strauss Admitting Physician Admitting Physician: Lizzy Neal MD Attending Physician: Lizzy Neal MD Consulting Physician Raf Louie MD HPI: Chief Complaint: Progressive dyspnea Ms. Dumont is an 82 yr old female admitted to ICU 6 from the ED. She is oriented to herself, but does not answer any questions. She was brought to the ED with AMS and progressive weakness from the [facility] facility she currently resides at per ED records. Review of Systems-Cardiology Review of Systems : No Other comments Unable to obtain d/t AMS RYM-Vkigoj-Ykzdap Hx Patient Social History 2nd Hand Smoke Exposure: No Alcohol Use?: Unable to obtain Pt feels they are or have been: Unable to obtain Immunizations Up To Date Tetanus Booster (TDap): Unknown Date of Pneumonia Vaccine: Feb 10, 2015 Date of Influenza Vaccine: Mar 27, 2020 Past Medical History PMH As described under Assessment. Family Medical History Family Medical History: Unable to obtain d/t AMS Family History: Blood clots (sister had a blood clot in the brain which caused her  in 2010) Allergies and Home Medications Allergies Coded Allergies: ketorolac (Verified Allergy, Mild, 04/15/22) morphine (Verified Allergy, Mild, pt has received Lortab in the past, 04/16/22) tetracycline (Verified Allergy, Mild, 04/15/22) paroxetine (Verified Allergy, Unknown, 04/15/22) Penicillins (Verified Adverse Reaction, Mild, tolerates Zosyn, 12/06/22) Patient Home Medication List Calcium Carbonate/Vitamin D3 (Calcium 600 + Vit D 200 Tablet) 600 Mg Calcium-5 Mcg (200 Unit) Tablet, 1 EACH PO Q12H, (Reported) Entered as Reported by: TERESA NAGEL on 12/16/22 09 Last Action: Reviewed Carvedilol (Carvedilol) 3.125 Mg Tablet, 3.125 MG PO Q12H, (Reported) Entered as Reported by: TERESA NAGEL on 12/16/22 09 Last Action: Reviewed Clopidogrel Bisulfate (Clopidogrel) 75 Mg Tablet, 75 MG PO DAILY Prescribed by: LONI NOGUERA on 12/08/22 1122 Last Action: Reviewed Fexofenadine HCl (Fexofenadine HCl) 180 Mg Tablet, 180 MG PO DAILY Prescribed by: LONI NOGUERA on 12/08/221121 Last Action: Reviewed Fluticasone Propionate (Flonase Allergy Relief) 50 Mcg/Actuation [place].susp, 1 SPRAY NSEACH DAILY, (Reported) Entered as Reported by: TERESA NAGEL on 12/16/22956 Last Action: Reviewed Fluticasone/Vilanterol (Breo Ellipta 100-25 Mcg INH) 100 Mcg-25 Mcg/Dose Blst.w.dev, 1 PUFF INH DAILY Prescribed by: LONI NOGUERA on 12/08/221121 Last Action: Reviewed Ipratropium/Albuterol Sulfate (Iprat-Albut 0.5-3(2.5) mg/3 ml) 0.5 Mg-3 Mg (2.5 Mg Base)/3 Ml Ampul.neb, 3 ML IH Q4H Prescribed by: LONI NOGUERA on 12/08/221121 Last Action: Reviewed Lorazepam (Ativan) 0.5 Mg Tablet, 0.5 MG PO Q12H, (Reported) Entered as Reported by: TERESA NAGEL on 12/16/22956 Last Action: Reviewed Melatonin (Melatonin) 5 Mg Tablet, 10 MG PO HS Prescribed by: LONI NOGUERA on 12/08/221121 Last Action: Reviewed Mirtazapine (Mirtazapine) 15 Mg Tablet, 15 MG PO HS Prescribed by: LONI NOGUERA on 12/08/221121 Last Action: Reviewed Montelukast Sodium (Montelukast Sodium) 10 Mg Tablet, 10 MG PO HS Prescribed by: LONI NOGUERA on 12/08/221121 Last Action: Reviewed Oxybutynin Chloride (Oxybutynin Chloride) 5 Mg Tablet, 5 MG PO Q12H, (Reported) Entered as Reported by: TERESA NAGEL on 12/16/22956 Last Action: Reviewed Pantoprazole Sodium (Pantoprazole Sodium) 40 Mg Tablet.dr, 40 MG PO DAILY Prescribed by: LONI NOGUERA on 12/08/221121 Last Action: Reviewed Potassium Chloride (K-Tab ER) 10 Meq Tablet.er, 10 MEQ PO DAILY Prescribed by: LONI NOGUERA on 12/08/221121 Last Action: Reviewed Pravastatin Sodium (Pravastatin Sodium) 40 Mg Tablet, 40 MG PO HS Prescribed by: LONI NOGUERA on 12/08/221121 Last Action: Reviewed Quetiapine Fumarate (Quetiapine Fumarate) 100 Mg Tablet, 50 MG PO 0800,1600,2200 Prescribed by: LONI NGOUERA on 12/08/221121 Last Action: Reviewed Rivastigmine Tartrate (Rivastigmine) 1.5 Mg Capsule, 1.5 MG PO Q12H, (Reported) Entered as Reported by: TERESA NAGEL on 12/16/22956 Last Action: Reviewed Torsemide (Torsemide) 20 Mg Tablet, 20 MG PO DAILY, (Reported) Entered as Reported by: TERESA NAGEL on 12/16/22956 Last Action: Reviewed Discontinued Medications Aspirin (Children's Aspirin) 81 Mg Tab.chew, 81 MG PO DAILY Discontinued Reason: No Longer Taking Prescribed by: LONI NOGUERA on 12/08/221121 Last Action: Discontinued Calcium Carbonate/Vitamin D3 (Calcium 600 + Vit D 200 Tablet) 600 Mg Calcium-5 Mcg (200 Unit) Tablet, 1 TAB PO BID Discontinued Reason: Duplicate Order Prescribed by: LONI NOGUERA on 12/08/221121 Last Action: Discontinued Carvedilol (Carvedilol) 3.125 Mg Tablet, 3.125 MG PO BID WITH MEALS Discontinued Reason: No Longer Taking Prescribed by: LONI NOGUERA on 12/08/221121 Last Action: Discontinued Fluconazole (Fluconazole) 100 Mg Tablet, 100 MG PO DAILY Discontinued Reason: Duplicate Order Prescribed by: LONI NOGUERA on 12/08/221121 Last Action: Discontinued Fluticasone Propionate (Fluticasone Propionate) 50 Mcg/Actuation [place].susp, 1 SPRAY NSEACH BID Discontinued Reason: No Longer Taking Prescribed by: LONI NOGUERA on 12/08/221121 Last Action: Discontinued Lorazepam (Ativan) 0.5 Mg Tablet, 0.5 MG PO BID Discontinued Reason: Duplicate Order Prescribed by: LONI NOGUERA on 12/08/221122 Last Action: Discontinued Oxybutynin Chloride (Oxybutynin Chloride) 5 Mg Tablet, 5 MG PO BID Discontinued Reason: Duplicate Order Prescribed by: LONI NOGUERA on 12/08/221121 Last Action: Discontinued Rivastigmine Tartrate (Rivastigmine) 1.5 Mg Capsule, 1.5 MG PO BID Discontinued Reason: Duplicate Order Prescribed by: LONI NOGUERA on 12/08/221121 Last Action: Discontinued Torsemide (Torsemide) 10 Mg Tablet, 20 MG PO DAILY Discontinued Reason: No Longer Taking Prescribed by: LONI NOGUERA on 12/08/221121 Last Action: Discontinued Physical Exam-Cardiology Physical Exam Vital Signs/I&O 12/15/22 12/15/22 12/15/22 12/15/22 22:15 22:30 22:45 23:00 Pulse 69 69 71 69 Resp 34 24 26 B/P (MAP) 119/58 (78) 108/79 (84) 137/92 (103) 127/87 (100) Pulse Ox 94 97 97 96 O2 Delivery Nasal Cannula Nasal Cannula Nasal Cannula Nasal Cannula O2 Flow Rate 4.00 4.00 4.00 4.00 12/15/22 12/15/22 12/16/22 12/16/22 23:21 23:23 00:00 00:00 Temp 36.1 36.1 Pulse 69 B/P (MAP) 116/89 (98) Pulse Ox 95 94 O2 Delivery Nasal Cannula Nasal Cannula O2 Flow Rate 4.00 4.00 12/16/22 12/16/22 12/16/22 12/16/22 00:25 01:00 01:00 02:00 Temp 36.8 Pulse 69 69 70 Resp 26 10 B/P (MAP) 138/70 (103) 134/70 (87) Pulse Ox 97 96 O2 Delivery Nasal Cannula Nasal Cannula O2 Flow Rate 4.00 4.00 12/16/22 12/16/22 12/16/22 12/16/22 03:00 04:00 04:00 05:00 Pulse 69 69 70 Resp 26 B/P (MAP) 133/87 (101) 136/76 (97) 148/63 (105) Pulse Ox 96 96 96 96 O2 Delivery Nasal Cannula Nasal Cannula Nasal Cannula Nasal Cannula O2 Flow Rate 4.00 4.00 4.00 4.00 12/16/22 12/16/22 12/16/22 12/16/22 06:00 07:00 07:00 07:51 Temp 36.3 Pulse 69 69 69 Resp 36 24 B/P (MAP) 135/79 (97) 130/66 (87) Pulse Ox 96 98 O2 Delivery Nasal Cannula Nasal Cannula O2 Flow Rate 4.00 4.00 12/16/22 08:00 Pulse 69 Resp 20 B/P (MAP) 128/101 (110) Pulse Ox 96 O2 Delivery Nasal Cannula O2 Flow Rate 4.00 12/16/22 00:00 Intake Total 1100 ml Balance 1100 ml Capillary Refill : Less Than 3 Seconds Constitutional: other (oriented to self only; does not provide any information) HEENT: oral hygience is good Neck: No carotid bruit; carotid pulses are 2 + bilaterally Respiratory: No accessory muscle use, No respiratory distress; other (dimin ished lower lobes bilat) Cardiovascular: regular rate-rhythm; No JVD; S1 and S2 Gastrointestinal: soft; No guarding, No audible bowel sounds Extremities: no lower extremity edema bilateral Neurologic/Psychiatric: other (moves all extremities) Skin: warm/dry, rash Data Review Labs Laboratory Tests 12/15/22 14:30: Glucometer 167H 12/15/22 14:35: White Blood Count 22.3H, Red Blood Count 4.01, Hemoglobin 9.2L, Hematocrit 30L, Mean Corpuscular Volume 76L, Mean Corpuscular Hemoglobin 23L, Mean Corpuscular Hemoglobin Concent 30L, Red Cell Distribution Width 21.3H, Platelet Count 582H, Mean Platelet Volume 9.8, Immature Granulocyte % (Auto) 1, Neutrophils (%) (Auto) 80H, Lymphocytes (%) (Auto) 10L, Monocytes (%) (Auto) 8, Eosinophils (%) (Auto) 1, Basophils (%) (Auto) 1, Neutrophils # (Auto) 17.8H, Lymphocytes # (Auto) 2.2, Monocytes # (Auto) 1.8H, Eosinophils # (Auto) 0.2, Basophils # (Aut o) 0.1, Immature Granulocyte # (Auto) 0.2H, Neutrophils % (Manual) 84, Lymphocytes % (Manual) 10, Monocytes % (Manual) 5, Eosinophils % (Manual) 0, Basophils % (Manual) 0, Band Neutrophils 1, Polychromasia MODERATE, Hypochromasia MARKED, Anisocytosis MARKED, Microcytosis SLIGHT, Prothrombin Time 14.7, INR Comment 1.1, Activated Partial Thromboplast Time 29, Sodium Level 133L , Potassium Level 4.1, Chloride Level 91L, Carbon Dioxide Level 28, Anion Gap 14, Blood Urea Nitrogen 20H, Creatinine 1.08, Estimat Glomerular Filtration Rate 52, BUN/Creatinine Ratio 19, Glucose Level 156H, Lactic Acid Level 1.63, Calcium Level 10.1, Corrected Calcium 10.4H, Magnesium Level 1.8, Total Bilirubin 0.7, Aspartate Amino Transf (AST/SGOT) 21, Alanine Aminotransferase (ALT/SGPT) 18, Alkaline Phosphatase 58, Myoglobin 45.9, Troponin I 0.175H, C-Reactive Protein High Sensitivity 10.57H, B-Type Natriuretic Peptide 2880.7H, Total Protein 7.0, Albumin 3.6 12/15/22 19:27: Bedside Blood Gas pH (LAB) 7.446H, Bedside Blood Gas pCO2 (LAB) 43.2, Bedside Blood Gas pO2 (LAB) 31*L, Bedside Blood Gas HCO3 (LAB) 29.8H, POC Blood Gas Total CO2 Calc 31H, Bedside Bl Gas O2 Saturation (Calc) 63L, Bedside Arterial Blood Base Excess 6H 12/15/22 19:55: Urine Color YELLOW, Urine Clarity SL CLOUDY, Urine pH 6.0, Urine Specific [place] <=1.005, Urine Protein TRACEH, Urine Glucose (UA) NEGATIVE, Urine Ketones TRACEH, Urine Nitrite NEGATIVE, Urine Bilirubin NEGATIVE, Urine Urobilinogen 0.2, Urine Leukocyte Esterase TRACEH, Urine RBC (Auto) NEGATIVE, Urine RBC NONE, Urine WBC 5-10H, Urine Squamous Epithelial Cells 10-25H, Urine Crystals NONE, Urine Bacteria FEWH, Urine Casts PRESENT, Urine Hyaline Casts 0- 2H, Urine Mucus NEGATIVE, Urine Culture Indicated YES 12/15/22 19:59: Influenza Type A (RT-PCR) Not Detected, Influenza Type B (RT-PCR) Not Detected, SARS-CoV-2 RNA (RT-PCR) Not Detected 12/16/22 03:22: Bedside Blood Gas pH (LAB) 7.464H, Bedside Blood Gas pCO2 (LAB) 41.2, Bedside Blood Gas pO2 (LAB) 77L, Bedside Blood Gas HCO3 (LAB) 29.6H, POC Blood Gas Total CO2 Calc 31H, Bedside Bl Gas O2 Saturation (Calc) 96, Bedside Arterial Blood Base Excess 6H 12/16/22 03:25: White Blood Count 23.6H, Red Blood Count 3.91, Hemoglobin 8.9L, Hematocrit 30L, Mean Corpuscular Volume 76L, Mean Corpuscular Hemoglobin 23L, Mean Corpuscular Hemoglobin Concent 30L, Red Cell Distribution Width 21.4H, Platelet Count 552H, Mean Platelet Volume 10.0, Immature Granulocyte % (Auto) 1, Neutrophils (%) (Auto) 84H, Lymphocytes (%) (Auto) 7L, Monocytes (%) (Auto) 8, Eosinophils (%) ( Auto) 0, Basophils (%) (Auto) 1, Neutrophils # (Auto) 19.7H, Lymphocytes # (Auto) 1.6, Monocytes # (Auto) 1.9H, Eosinophils # (Auto) 0.1, Basophils # (Auto) 0.1, Immature Granulocyte # (Auto) 0.3H, Sodium Level 136, Potassium Level 3.7, Chloride Level 95L, Carbon Dioxide Level 28, Anion Gap 13, Blood Urea Nitrogen 20H, Creatinine 1.11, Estimat Glomerular Filtration Rate 50, BUN/Creatinine Ratio 18, Glucose Level 137H, Calcium Level 9.5, Corrected Calcium 10.0, Phosphorus Level 3.7, Magnesium Level 1.6, Total Bilirubin 0.7, Aspartate Amino Transf (AST/SGOT) 20, Alanine Aminotransferase (ALT/SGPT) 21, Alkaline Phosphatase 62, C-Reactive Protein High Sensitivity 12.27H, B-Type Natriuretic Peptide 2596.7H, Total Protein 6.4, Albumin 3.4, Triglycerides Level 86, Cholesterol Level 107, LDL Cholesterol Direct 49, VLDL Cholesterol 17, HDL Cholesterol 37L Radiology NAME: AILEEN DUMONT [facility] REC#: [id number] PT STATUS: REG ER : 1940 PHYSICIAN: SPIKE NIX MD ADMIT DATE: 12/15/22/ER Signed Date of Exam:12/15/22 CT ANGIO CHEST W (R/O PE) CT angiogram of the chest with contrast. INDICATION: Hypoxia and chest pain. TECHNIQUE: After intravenous administration of contrast, thin section axial CT angiography of the chest was performed. Multiple reconstructions were provided including MIP reformats. FINDINGS: There is adequate opacification of the pulmonary arteries for diagnostic assessment. There is no filling defect present or evidence of pulmonary embolism. There are no features of right ventricular strain. There is cardiomegaly. There are bilateral pleural effusions, right greater than left, with some associated dependent atelectasis. The lungs otherwise appear clear. There is no pneumothorax. There is no suspicious nodule or mass. There are no findings of abnormal mediastinal adenopathy. There are coronary calcifications present. There is a pacemaker device in place. There is reflux of contrast into the hepatic veins. As there is no embolus or bowing of the ventricular septum, this may relate to right-sided heart dysfunction. Note is made of a moderate hiatal hernia. There is no acute osseous abnormality. There are background features of multilevel degenerative disc disease. IMPRESSION: 1. No CT angiographic evidence of a pulmonary artery filling defect or findings of embolism. 2. As there no embolism or bowing of the ventricular septum, the reflux of contrast into the hepatic veins may relate to right-sided heart dysfunction. There are no findings by CT felt suspect for right ventricular strain. 3. Right greater than left pleural effusions with bibasilar atelectasis. Dictated by: Dictated on workstation # [id number] Dict: 12/15/221808 Trans: 12/15/221816 [facility] [id number] Interpreted by: MADISYN CAMERON MD Electronically signed by: MADISYN CAMERON MD 12/15/221816 NAME: AILEEN DUMONT [facility] REC#: [id number] PT STATUS: ADM IN : 1940 PHYSICIAN: LIZZY NEAL MD ADMIT DATE: 12/15/22/ICU Signed Date of Exam:12/15/22 CHEST 1 VIEW, AP/PA ONLY EXAMINATION: Chest 1 view HISTORY: Line placement COMPARISON: 12/15/2022 FINDINGS: Heart size and pulmonary vasculature are normal. Increasing patchy interstitial and airspace opacities seen within both lungs compared to 12/15/2022. No pneumothorax. There may be trace bilateral pleural effusions present. Right-sided central line placed with the tip projecting over the right atrium. The osseous structures are intact. IMPRESSION: 1. Right-sided central line placement with the tip projecting over the right atrium. No pneumothorax. 2. Increasing interstitial and airspace opacities within the lungs. Dictated by: Dictated on workstation # [id number] Dict: 12/16/22613 Trans: 12/16/22 0808 ENRIQUE [id number] Interpreted by: AMANDA STEELE DO Electronically signed by: AMANDA STEELE DO 12/16/22807 NAME: AILEEN DUMONT [facility] REC#: [id number] PT STATUS: REG ER : 1940 PHYSICIAN: SPIKE NIX MD ADMIT DATE: 12/15/22/ER Signed Date of Exam:12/15/22 CT NECK (SOFT TISSUE) W INDICATION: Altered mental status, rash, neck swelling. CT TECHNIQUE: Multiple contiguous axial images were obtained through the neck after the administration of contrast. Auto Exposure Controls were utilized during the CT exam to meet ALARA standards for radiation dose reduction. FINDINGS: CT neck soft tissue study performed. The visualized portions of the lung apices were clear. There is no bony abnormality detected. The right parotid gland appears asymmetrically prominent compared to the left with some edema, suggesting inflammatory change. There is no discrete abscess. There are no enlarged nodes in the neck soft tissues. Thyroid gland and submandibular glands appear unremarkable. IMPRESSION: There is asymmetric swelling of the right parotid gland with some edema, suggesting inflammatory process. There is no discrete abscess or adenopathy. Visualized portions of the lung apices are clear. Dictated by: Dictated on workstation # [id number] Dict: 12/15/221808 Trans: 12/15/221904 AS6 [id number] Interpreted by: RHONDA OROZCO MD Electronically signed by: RHONDA OROZCO MD 12/15/221904 NAME: AILEEN DUMONT [facility] REC#: [id number] PT STATUS: REG ER : 1940 PHYSICIAN: SPIKE NIX MD ADMIT DATE: 12/15/22/ER Signed Date of Exam:12/15/22 CT HEAD WO-R/O STROKE INDICATION: Altered mental status. TECHNIQUE: Multiple contiguous axial images were obtained through the brain without the use of intravenous contrast. Auto Exposure Controls were utilized during the CT exam to meet ALARA standards for radiation dose reduction. COMPARISON: Comparison made with 04/10/2022. FINDINGS: There are diffuse atrophic changes. There is prominence of the extra-axial spaces which is probably secondary to volume loss and appears similar to the prior study. There is no acute hemorrhage. There are mild chronic changes in deep white matter. Ventricles are normal in size. Calvarial windows show no fractures. IMPRESSION: Atrophy with prominence of the extra-axial spaces, most likely secondary to volume loss. No hemorrhage or acute territorial ischemia is detected. Dictated by: Dictated on workstation # [id number] Dict: 12/15/221758 Trans: 12/15/221806 AS6 [id number] Interpreted by: RHONDA OROZCO MD Electronically signed by: RHONDA OROZCO MD 12/15/221806 ECG Impression ECG Comment A-fib/flutter with v-pacing A/P-Cardiology Assessment/Admission Diagnosis AMS - management per medical services Acute on chronic exacerbation of systolic CHF - Left ventricular ejection fraction 35 to 40% on transthoracic echo, with paradoxical septal motion consistent with right ventricular pacing per Dr. Park on 12-03-22 History of paroxysmal atrial fibrillation - Patient not on long-term anticoagulation by choice. The risk of stroke without anticoagulation has been discussed with the patient in the past per documentation at time of last hospitalization and at time of office visit with Dr. 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 Clark CAD, Cardiac catheterization done Jul 2019 reported as sluggish coronary flow with no significant obstructive disease. Dyslipidemia Hypertension H/O alpha-1 antitrypsin deficiency-associated COPD, managed by Pulmonology History of chronic kidney disease Discussion and Recomendations AMS - management per medical services Parotitis - management per medical/surgical services UTI - management per medical services Acute on chronic systolic CHF - treat with diuretics - restart HF meds as tolerated CKD - monitor lab closely Further recs will be based on her hospital course I have spoken with Dr. Wright of medical services We would like to thank her for this consult VONDA LUTHER Dec 16, 2022 08:52
[2022-12-16] MEDS ORDERED: FUROSEMIDE 40 MG/4 ML INJ (LASIX) IVP NR (09:00)
[2022-12-16] MEDS ORDERED: CARV3.122 PO (09:57)
[2022-12-16] MEDS ORDERED: CALC1TAB84 PO (09:57)
[2022-12-16] MEDS ORDERED: RIVA1.5C30 PO (09:57)
[2022-12-16] MEDS ORDERED: FLUT9.9S NSEACH (09:57)
[2022-12-16] MEDS ORDERED: TORS20TA3 PO (09:57)
[2022-12-16] MEDS ORDERED: OXYB5TAB13 PO (09:57)
[2022-12-16] MEDS ORDERED: LORA-404 PO (09:57)
--- NOTE | 2022-12-16 11:14 | History & Physical-Hospitalist ---
History of Present Illness HPI/Chief Complaint Pt is an 82yoCF known to me from recent admissions who presented to the ER due to altered mental status. She was discharged from the hospital last week after being admitted for NSTEMI and pneumonia. She was discharged to [facility] and developed some confusion on 12/14 that continued to worsen. She was found in the ER to have a CHF exacerbation and parotitis. She was admitted to the ICU for further management. This morning she remains confused but is talking. I was able to meet with her family and discuss her current condition with her daughter and 2 only family members. Source: patient Date Seen 12/16/22 Time Seen by a Provider: 11:09 Attending Physician Kimberly Strauss PCP Admitting Physician: Nabeel Neal MD Attending Physician: Nabeel Neal MD Referring Physician Date of Admission Dec 15, 2022 at 21:45 Home Medications & Allergies Home Medications Reviewed patient Home Medication Reconciliation performed by pharmacy medication reconciliations combination technician and/or nursing. Patients Allergies have been reviewed. Allergies Allergies Coded Allergies ketorolac (Verified Allergy, Mild, 04/15/22) morphine (Verified Allergy, Mild, pt has received Lortab in the past, 04/16/22) tetracycline (Verified Allergy, Mild, 04/15/22) paroxetine (Verified Allergy, Unknown, 04/15/22) Penicillins (Verified Adverse Reaction, Mild, tolerates Zosyn, 12/06/22) Past Vbspkub-Tsshdm-Xmtyeg Hx Patient Social History Use of E-Cig and/or Vaping dev: Unable to obtain Substance use?: Unable to obtain Alcohol Use?: Unable to obtain Pt feels they are or have been: Unable to obtain Immunizations Up To Date Date of Influenza Vaccine: Mar 27, 2020 First/Initial COVID19 Vaccinat: stated 'information is on file already" Second COVID19 Vaccination Timmy: stated 'information is on file already" Tetanus Booster (TDap): Unknown Hepatitis A: No Hepatitis B: No PED Vaccines UTD: Yes Date of Pneumonia Vaccine: Feb 10, 2015 Seasonal Allergies Seasonal Allergies: No Current Status status: No status: No Advance Directives: Yes Advance Directive Location: Family to bring in copy Communicates: Unable To Communicate Primary Language: Lebanese Preferred Spoken Language: Lebanese Is interpretation needed?: No Past Medical History Surgeries: Abdominal, Appendectomy, Eye Surgery, Gallbladder, 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, Joint Replacement, Orthopedic, Pacemaker Pneumonia, COPD Currently Using CPAP: No Currently Using BIPAP: No Atrial Fibrillation, High Cholesterol, Hypertension 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, Menopausal Sexually Transmitted Disease: No HIV/AIDS: No Gastrointestinal Bleed, Chronic Diarrhea, Polyps, Ulcer, Irritable Bowel Degenerate Disk Disease, Arthritis, Chronic Back Pain, Fractures Cataract Loss of Vision: Denies Hearing Impairment: Hard of Hearing Anxiety Blood Disorders: Yes (BILATERAL P.E.'S 04/2018) Adverse Reaction/Blood Tranf: No Family Medical History Blood clots (sister had a blood clot in the brain which caused her  in 2010) Review of Systems Constitutional: see HPI Physical Exam Physical Exam Vital Signs Vital Signs - First Documented 12/15/22 14:23 Temp 36.9 Pulse 69 Resp 24 B/P (MAP) 103/89 (94) Pulse Ox 95 O2 Delivery Nasal Cannula O2 Flow Rate 2.00 Capillary Refill : Less Than 3 Seconds Height, Weight, BMI Height: 5'3.00" Weight: 150lbs. 0.0oz. 68.138381ia; 34.48 BMI Method:Stated General Appearance: Anxious, Chronically ill, Obese Respiratory: Decreased Breath Sounds, Other (tachypneic) Cardiovascular: Regular Rate, Rhythm, No Murmur Gastrointestinal: Normal Bowel Sounds, Non Tender, Soft Neurologic/Psychiatric: Alert, Other (oriented to self) Skin: No Mottled Results Results/Procedures Labs Laboratory Tests 12/16/22 03:25 Patient resulted labs reviewed. Imaging: Reviewed Imaging Report Imaging [facility], [place] NAME: AILEEN DUMONT Ruddy [facility] REC#: [id number] PT STATUS: REG ER : 1940 PHYSICIAN: SPIKE NIX MD ADMIT DATE: 12/15/22/ER Signed Date of Exam:12/15/22 CHEST 1 VIEW, AP/PA ONLY Indication: Chest pain Portable chest at 3:05 PM There is a dual-chamber pacemaker. Heart size is normal. There is pulmonary vascular congestion. There are no effusions or pneumothoraces. IMPRESSION: Pulmonary vascular congestion. Dictated by: Dictated on workstation # [id number] Dict: 12/15/22 1520 Trans: 12/15/221725 [facility] [id number] Interpreted by: BARBRA STEELE MD Electronically signed by: BARBRA STEELE MD 12/15/221725 [facility], [place] NAME: AILEEN DUMONT [facility] REC#: [id number] PT STATUS: REG ER : 1940 PHYSICIAN: SPIKE NIX MD ADMIT DATE: 12/15/22/ER Signed Date of Exam:12/15/22 CT HEAD WO-R/O STROKE INDICATION: Altered mental status. TECHNIQUE: Multiple contiguous axial images were obtained through the brain without the use of intravenous contrast. Auto Exposure Controls were utilized during the CT exam to meet ALARA standards for radiation dose reduction. COMPARISON: Comparison made with 04/10/2022. FINDINGS: There are diffuse atrophic changes. There is prominence of the extra-axial spaces which is probably secondary to volume loss and appears similar to the prior study. There is no acute hemorrhage. There are mild chronic changes in deep white matter. Ventricles are normal in size. Calvarial windows show no fractures. IMPRESSION: Atrophy with prominence of the extra-axial spaces, most likely secondary to volume loss. No hemorrhage or acute territorial ischemia is detected. Dictated by: Dictated on workstation # [id number] Dict: 12/15/221758 Trans: 12/15/221806 [facility] [id number] Interpreted by: RHONDA OROZCO MD Electronically signed by: RHONDA OROZCO MD 12/15/221806 [facility], [place] NAME: AILEEN DUMONT [facility] REC#: [id number] PT STATUS: REG ER : 1940 PHYSICIAN: SPIKE NIX MD ADMIT DATE: 12/15/22/ER Signed Date of Exam:12/15/22 CT NECK (SOFT TISSUE) W INDICATION: Altered mental status, rash, neck swelling. CT TECHNIQUE: Multiple contiguous axial images were obtained through the neck after the administration of contrast. Auto Exposure Controls were utilized during the CT exam to meet ALARA standards for radiation dose reduction. FINDINGS: CT neck soft tissue study performed. The visualized portions of the lung apices were clear. There is no bony abnormality detected. The right parotid gland appears asymmetrically prominent compared to the left with some edema, suggesting inflammatory change. There is no discrete abscess. There are no enlarged nodes in the neck soft tissues. Thyroid gland and submandibular glands appear unremarkable. IMPRESSION: There is asymmetric swelling of the right parotid gland with some edema, suggesting inflammatory process. There is no discrete abscess or adenopathy. Visualized portions of the lung apices are clear. Dictated by: Dictated on workstation # [id number] Dict: 12/15/221808 Trans: 12/15/221904 [facility] [id number] Interpreted by: RHONDA OROZCO MD Electronically signed by: RHONDA OROZCO MD 12/15/221904 [facility], [place] NAME: AILEEN DUMONT [facility] REC#: [id number] PT STATUS: REG ER : 1940 PHYSICIAN: SPIKE NIX MD ADMIT DATE: 12/15/22/ER Signed Date of Exam:12/15/22 CT ANGIO CHEST W (R/O PE) CT angiogram of the chest with contrast. INDICATION: Hypoxia and chest pain. TECHNIQUE: After intravenous administration of contrast, thin section axial CT angiography of the chest was performed. Multiple reconstructions were provided including MIP reformats. FINDINGS: There is adequate opacification of the pulmonary arteries for diagnostic assessment. There is no filling defect present or evidence of pulmonary embolism. There are no features of right ventricular strain. There is cardiomegaly. There are bilateral pleural effusions, right greater than left, with some associated dependent atelectasis. The lungs otherwise appear clear. There is no pneumothorax. There is no suspicious nodule or mass. There are no findings of abnormal mediastinal adenopathy. There are coronary calcifications present. There is a pacemaker device in place. There is reflux of contrast into the hepatic veins. As there is no embolus or bowing of the ventricular septum, this may relate to right-sided heart dysfunction. Note is made of a moderate hiatal hernia. There is no acute osseous abnormality. There are background features of multilevel degenerative disc disease. IMPRESSION: 1. No CT angiographic evidence of a pulmonary artery filling defect or findings of embolism. 2. As there no embolism or bowing of the ventricular septum, the reflux of contrast into the hepatic veins may relate to right-sided heart dysfunction. There are no findings by CT felt suspect for right ventricular strain. 3. Right greater than left pleural effusions with bibasilar atelectasis. Dictated by: Dictated on workstation # [id number] Dict: 12/15/221808 Trans: 12/15/221816 [facility] [id number] Interpreted by: MADISYN CAMERON MD Electronically signed by: MADISYN CAMERON MD 12/15/221816 Assessment/Plan Admission Diagnosis CHF Exacerbation Admission Status: Inpatient Order (span 2 midnights) Reason for Inpatient Admission: see below Assessment and Plan Patient admitted with multiple medical issues including CHF exacerbation and sepsis from parotitis. She has been treated with broad-spectrum antibiotics for her infection and despite this has had a worsening leukocytosis. She was also given IV Lasix for her vascular congestion. She was monitored in the ICU over night and appears to have worsened. I spoke with her daughter and 2 grandchildren regarding all of her medical issues including her multiple recent admissions for recurrent pneumonia. Daughter stated that patient had mentioned to her that she was ready to go, at peace with , and tired from her recent illnesses. Initially the plan was to give treatment another day to see if it improved her status but she continued to decompensate throughout the day and her family elected to make her comfort measures only. She passed peacefully at 2217. Diagnosis/Problems Diagnosis/Problems (1) Parotitis Status: Acute (2) Altered mental status Status: Acute Qualifiers: Altered mental status type: unspecified Qualified Codes: R41.82 - Altered mental status, unspecified (3) Acute exacerbation of congestive heart failure Status: Acute Qualifiers: Heart failure type: unspecified Qualified Codes: I50.9 - Heart failure, unspecified (4) HTN (hypertension) Status: Chronic (5) HLD (hyperlipidemia) Status: Chronic (6) CAD (coronary artery disease) Status: Chronic (7) Anxiety Status: Chronic (8) Afib Status: Chronic (9) Chronic hyponatremia Status: Acute (10) Dementia Status: Chronic TRACEE FLETCHER MD Dec 16, 2022 11:14
[2022-12-16] MEDS: fentaNYL INJ 100 MCG/2 ML AMP IVP PRN ×5 (12:49→20:41)
[2022-12-16] MEDS: MICONAZOLE 2% POWDER (DESENEX AF) 90 GM TOP SCH ×2 (13:54→21:11)
[2022-12-16] MEDS ORDERED: LORazepam INJ 2 MG/ML (ATIVAN) VIAL IVP PRN (15:15)
[2022-12-16] MEDS ORDERED: SALIVA SUBSTITUTE 60 ML SPRAY(MOUTHKOTE) MM PRN (15:15)
[2022-12-16] MEDS ORDERED: ATROPINE 1% OPHTHALMIC SOLN 2 ML SL PRN (15:15)
[2022-12-16] MEDS ORDERED: RT-ALBUTEROL/IPRATROPIUM 3 ML (DUONEB) VIAL INH PRN (15:15)
[2022-12-16] MEDS ORDERED: LORazepam 1 MG (ATIVAN) TAB SL PRN (15:15)
[2022-12-16] MEDS ORDERED: ARTIFICAL TEARS 0.4 ML UNIT DOSE (REFRESH PLUS) OU PRN (15:15)
[2022-12-16] MEDS ORDERED: GLYCOPYRROLATE 0.2 MG/ML (ROBINUL) 2 ML VIAL IV PRN (15:15)
[2022-12-16] MEDS ORDERED: VANCOMYCIN INJECTION 0.1 MG in NS (IVPB) 250 ML IV SCH (16:15)
[2022-12-16] MEDS ORDERED: VANCOMYCIN 1500MG/300ML PREMIX IV ONE (17:00)
[2022-12-16] MEDS ORDERED: FUROSEMIDE 40 MG/4 ML INJ (LASIX) IVP SCH (17:00)
[2022-12-16] MEDS ORDERED: LORazepam INJ 2 MG/ML (ATIVAN) VIAL ONE (17:08)
[2022-12-16] MEDS: LORazepam INJ 2 MG/ML (ATIVAN) VIAL IVP PRN ×4 (17:13→21:19)
--- NOTE | 2022-12-16 18:36 | Consultation-Cardiology ---
HPI-Cardiology Cardiology Consultation: Date of Consultation 12/16/22 Time Seen by a Provider: 17:00 Date of Admission Attending Physician Kimberly Strauss Admitting Physician Admitting Physician: Nabeel Neal MD Attending Physician: Nabeel Neal MD Consulting Physician CHRISTY DELGADO MD, MA, FACP, FACC, [facility], CCDS HPI: Chief Complaint: Progressive dyspnea Ms. Correia is an 82 yr old female admitted to ICU 6 from the ED. She is oriented to herself, but does not answer any questions. She was brought to the ED with AMS and progressive weakness from the [facility] facility she currently resides at per ED records. Review of Systems-Cardiology Review of Systems : No EBV-Jqbwpv-Txtjtz Hx Patient Social History 2nd Hand Smoke Exposure: No Alcohol Use?: Unable to obtain Pt feels they are or have been: Unable to obtain Immunizations Up To Date Tetanus Booster (TDap): Unknown Date of Pneumonia Vaccine: Feb 10, 2015 Date of Influenza Vaccine: Mar 27, 2020 Past Medical History PMH As described under Assessment. Family Medical History Family Medical History: Unable to obtain d/t AMS Family History: Blood clots (sister had a blood clot in the brain which caused her  in 2010) Allergies and Home Medications Allergies Coded Allergies: ketorolac (Verified Allergy, Mild, 04/15/22) morphine (Verified Allergy, Mild, pt has received Lortab in the past, 04/16/22) tetracycline (Verified Allergy, Mild, 04/15/22) paroxetine (Verified Allergy, Unknown, 04/15/22) Penicillins (Verified Adverse Reaction, Mild, tolerates Zosyn, 12/06/22) Patient Home Medication List Home Medication List Reviewed: Yes Calcium Carbonate/Vitamin D3 (Calcium 600 + Vit D 200 Tablet) 600 Mg Calcium-5 Mcg (200 Unit) Tablet, 1 EACH PO Q12H, (Reported) Entered as Reported by: TERESA NAGEL on 12/16/22 09 Last Action: Reviewed Carvedilol (Carvedilol) 3.125 Mg Tablet, 3.125 MG PO Q12H, (Reported) Entered as Reported by: TERESA NAGEL on 12/16/22 0957 Last Action: Reviewed Clopidogrel Bisulfate (Clopidogrel) 75 Mg Tablet, 75 MG PO DAILY Prescribed by: LONI NOGUERA on 7/3/23 1122 Last Action: Reviewed Fexofenadine HCl (Fexofenadine HCl) 180 Mg Tablet, 180 MG PO DAILY Prescribed by: LONI NOGUERA on 12/08/221121 Last Action: Reviewed Fluticasone Propionate (Flonase Allergy Relief) 50 Mcg/Actuation [place].susp, 1 SPRAY NSEACH DAILY, (Reported) Entered as Reported by: TERESA NAGEL on 12/16/22956 Last Action: Reviewed Fluticasone/Vilanterol (Breo Ellipta 100-25 Mcg INH) 100 Mcg-25 Mcg/Dose Blst.w.dev, 1 PUFF INH DAILY Prescribed by: LONI NOGUERA on 12/08/221121 Last Action: Reviewed Ipratropium/Albuterol Sulfate (Iprat-Albut 0.5-3(2.5) mg/3 ml) 0.5 Mg-3 Mg (2.5 Mg Base)/3 Ml Ampul.neb, 3 ML IH Q4H Prescribed by: LONI NOGUERA on 12/08/221121 Last Action: Reviewed Lorazepam (Ativan) 0.5 Mg Tablet, 0.5 MG PO Q12H, (Reported) Entered as Reported by: TERESA NAGEL on 12/16/22956 Last Action: Reviewed Melatonin (Melatonin) 5 Mg Tablet, 10 MG PO HS Prescribed by: LONI NOGUERA on 12/08/221121 Last Action: Reviewed Mirtazapine (Mirtazapine) 15 Mg Tablet, 15 MG PO HS Prescribed by: LONI NOGUERA on 12/08/221121 Last Action: Reviewed Montelukast Sodium (Montelukast Sodium) 10 Mg Tablet, 10 MG PO HS Prescribed by: LONI NOGUERA on 12/08/221121 Last Action: Reviewed Oxybutynin Chloride (Oxybutynin Chloride) 5 Mg Tablet, 5 MG PO Q12H, (Reported) Entered as Reported by: TERESA NAGEL on 12/16/22956 Last Action: Reviewed Pantoprazole Sodium (Pantoprazole Sodium) 40 Mg Tablet.dr, 40 MG PO DAILY Prescribed by: LONI NOGUERA on 12/08/221121 Last Action: Reviewed Potassium Chloride (K-Tab ER) 10 Meq Tablet.er, 10 MEQ PO DAILY Prescribed by: LONI NOGUERA on 12/08/221121 Last Action: Reviewed Pravastatin Sodium (Pravastatin Sodium) 40 Mg Tablet, 40 MG PO HS Prescribed by: LONI NOGUERA on 12/08/221121 Last Action: Reviewed Quetiapine Fumarate (Quetiapine Fumarate) 100 Mg Tablet, 50 MG PO 0800,1600,2200 Prescribed by: LONI NOGUERA on 12/08/221121 Last Action: Reviewed Rivastigmine Tartrate (Rivastigmine) 1.5 Mg Capsule, 1.5 MG PO Q12H, (Reported) Entered as Reported by: TERESA NAGEL on 12/16/22956 Last Action: Reviewed Torsemide (Torsemide) 20 Mg Tablet, 20 MG PO DAILY, (Reported) Entered as Reported by: TERESA NAGEL on 12/16/22956 Last Action: Reviewed Discontinued Medications Aspirin (Children's Aspirin) 81 Mg Tab.chew, 81 MG PO DAILY Discontinued Reason: No Longer Taking Prescribed by: LONI NOGUERA on 12/08/221121 Last Action: Discontinued Calcium Carbonate/Vitamin D3 (Calcium 600 + Vit D 200 Tablet) 600 Mg Calcium-5 Mcg (200 Unit) Tablet, 1 TAB PO BID Discontinued Reason: Duplicate Order Prescribed by: LONI NOGUERA on 12/08/221121 Last Action: Discontinued Carvedilol (Carvedilol) 3.125 Mg Tablet, 3.125 MG PO BID WITH MEALS Discontinued Reason: No Longer Taking Prescribed by: LONI NOGUERA on 12/08/221121 Last Action: Discontinued Fluconazole (Fluconazole) 100 Mg Tablet, 100 MG PO DAILY Discontinued Reason: Duplicate Order Prescribed by: LONI NOGUERA on 12/08/221121 Last Action: Discontinued Fluticasone Propionate (Fluticasone Propionate) 50 Mcg/Actuation [place].susp, 1 SPRAY NSEACH BID Discontinued Reason: No Longer Taking Prescribed by: LONI NOGUERA on 12/08/221121 Last Action: Discontinued Lorazepam (Ativan) 0.5 Mg Tablet, 0.5 MG PO BID Discontinued Reason: Duplicate Order Prescribed by: LONI NOGUERA on 12/08/221122 Last Action: Discontinued Oxybutynin Chloride (Oxybutynin Chloride) 5 Mg Tablet, 5 MG PO BID Discontinued Reason: Duplicate Order Prescribed by: LONI NOGUERA on 12/08/221121 Last Action: Discontinued Rivastigmine Tartrate (Rivastigmine) 1.5 Mg Capsule, 1.5 MG PO BID Discontinued Reason: Duplicate Order Prescribed by: LONI NOGUERA on 12/08/221121 Last Action: Discontinued Torsemide (Torsemide) 10 Mg Tablet, 20 MG PO DAILY Discontinued Reason: No Longer Taking Prescribed by: LONI NOGUERA on 12/08/221121 Last Action: Discontinued Physical Exam-Cardiology Physical Exam Vital Signs/I&O 12/16/22 12/16/22 12/16/22 12/16/22 07:00 07:00 07:51 08:00 Temp 36.3 Pulse 69 69 Resp 24 B/P (MAP) 130/66 (87) Pulse Ox 98 97 O2 Delivery Nasal Cannula Nasal Cannula O2 Flow Rate 4.00 4.00 12/16/22 12/16/22 12/16/22 12/16/22 08:00 09:00 10:00 11:00 Pulse 69 69 69 69 Resp 20 20 16 30 B/P (MAP) 128/101 (110) 115/76 (89) 119/79 (92) 140/72 (94) Pulse Ox 96 97 97 97 O2 Delivery Nasal Cannula Nasal Cannula Nasal Cannula Nasal Cannula O2 Flow Rate 4.00 4.00 4.00 4.00 12/16/22 12/16/22 12/16/22 12/16/22 11:48 12:00 12:16 13:00 Temp 36.9 Pulse 77 69 Resp 30 24 B/P (MAP) 123/64 (83) 112/59 (76) Pulse Ox 94 96 95 O2 Delivery Nasal Cannula Nasal Cannula Nasal Cannula O2 Flow Rate 4.00 4.00 4.00 12/16/22 12/16/22 12/16/22 12/16/22 13:00 14:00 15:00 15:35 Pulse 69 69 69 Resp 30 30 B/P (MAP) 101/60 (74) 111/70 (84) Pulse Ox 96 98 96 O2 Delivery OxyMask OxyMask OxyMask O2 Flow Rate 5.00 5.00 5.00 12/16/22 12/16/22 12/16/22 12/16/22 15:44 15:53 16:00 17:00 Temp 36.6 Pulse 69 69 Resp 30 45 B/P (MAP) 105/59 (74) 107/62 (77) Pulse Ox 94 97 96 O2 Delivery OxyMask OxyMask OxyMask O2 Flow Rate 5.00 5.00 5.00 12/16/22 18:00 Pulse 69 Resp 48 B/P (MAP) 102/64 (77) Pulse Ox 96 O2 Delivery OxyMask O2 Flow Rate 5.00 12/16/22 00:00 Intake Total 1100 ml Balance 1100 ml Capillary Refill : Less Than 3 Seconds Constitutional: other (unresponsive) HEENT: oral hygience is good Neck: carotid pulses are 2 + bilaterally Respiratory: other Cardiovascular: regular rate-rhythm, S1 and S2 Gastrointestinal: soft Extremities: no lower extremity edema bilateral Neurologic/Psychiatric: other Skin: warm/dry, rash Data Review Labs Laboratory Tests 12/15/22 19:27: Bedside Blood Gas pH (LAB) 7.446H, Bedside Blood Gas pCO2 (LAB) 43.2, Bedside Blood Gas pO2 (LAB) 31*L, Bedside Blood Gas HCO3 (LAB) 29.8H, POC Blood Gas Total CO2 Calc 31H, Bedside Bl Gas O2 Saturation (Calc) 63L, Bedside Arterial Blood Base Excess 6H 12/15/22 19:55: Urine Color YELLOW, Urine Clarity SL CLOUDY, Urine pH 6.0, Urine Specific [place] <=1.005, Urine Protein TRACEH, Urine Glucose (UA) NEGATIVE, Urine Ketones TRACEH, Urine Nitrite NEGATIVE, Urine Bilirubin NEGATIVE, Urine Urobilinogen 0.2, Urine Leukocyte Esterase TRACEH, Urine RBC (Auto) NEGATIVE, Urine RBC NONE, Urine WBC 5-10H, Urine Squamous Epithelial Cells 10-25H, Urine Crystals NONE, Urine Bacteria FEWH, Urine Casts PRESENT, Urine Hyaline Casts 0- 2H, Urine Mucus NEGATIVE, Urine Culture Indicated YES 12/15/22 19:59: Influenza Type A (RT-PCR) Not Detected, Influenza Type B (RT-PCR) Not Detected, SARS-CoV-2 RNA (RT-PCR) Not Detected 12/16/22 03:22: Bedside Blood Gas pH (LAB) 7.464H, Bedside Blood Gas pCO2 (LAB) 41.2, Bedside Blood Gas pO2 (LAB) 77L, Bedside Blood Gas HCO3 (LAB) 29.6H, POC Blood Gas Total CO2 Calc 31H, Bedside Bl Gas O2 Saturation (Calc) 96, Bedside Arterial Blood Base Excess 6H 12/16/22 03:25: White Blood Count 23.6H, Red Blood Count 3.91, Hemoglobin 8.9L, Hematocrit 30L, Mean Corpuscular Volume 76L, Mean Corpuscular Hemoglobin 23L, Mean Corpuscular Hemoglobin Concent 30L, Red Cell Distribution Width 21.4H, Platelet Count 552H, Mean Platelet Volume 10.0, Immature Granulocyte % (Auto) 1, Neutrophils (%) (Auto) 84H, Lymphocytes (%) (Auto) 7L, Monocytes (%) (Auto) 8, Eosinophils (%) (Auto) 0, Basophils (%) (Auto) 1, Neutrophils # (Auto) 19.7H, Lymphocytes # (Auto) 1.6, Monocytes # (Auto) 1.9H, Eosinophils # (Auto) 0.1, Basophils # (Auto) 0.1, Immature Granulocyte # (Auto) 0.3H, Sodium Level 136, Potassium Level 3.7, Chloride Level 95L, Carbon Dioxide Level 28, Anion Gap 13, Blood Urea Nitrogen 20H, Creatinine 1.11, Estimat Glomerular Filtration Rate 50, BUN/Creatinine Ratio 18, Glucose Level 137H, Calcium Level 9.5, Corrected Calcium 10.0, Phosphorus Level 3.7, Magnesium Level 1.6, Total Bilirubin 0.7, Aspartate Amino Transf (AST/SGOT) 20, Alanine Aminotransferase (ALT/SGPT) 21, Alkaline Phosphatase 62, C-Reactive Protein High Sensitivity 12.27H, B-Type Natriuretic Peptide 2596.7H, Total Protein 6.4, Albumin 3.4, Triglycerides Level 86, Cholesterol Level 107, LDL Cholesterol Direct 49, VLDL Cholesterol 17, HDL Cholesterol 37L 12/16/22 11:36: Glucometer 128H 12/16/22 17:53: Glucometer 130H Microbiology 12/15/22 MRSA Screen - Final, Complete 12/15/22 Urine Culture - Final, Complete NO GROWTH 12/15/22 Blood Culture - Preliminary, Resulted No growth A/P-Cardiology Assessment/Admission Diagnosis AMS - management per medical services Acute on chronic exacerbation of systolic CHF - Left ventricular ejection fraction 35 to 40% on transthoracic echo, with pa radoxical septal motion consistent with right ventricular pacing per Dr. Park on 12-03-22 History of paroxysmal atrial fibrillation - Patient not on long-term anticoagulation by choice. The risk of stroke without anticoagulation has been discussed with the patient in the past per documentation at time of last hospitalization and at time of office visit with Dr. 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 Clark CAD, Cardiac catheterization done Jul 2019 reported as sluggish coronary flow with no significant obstructive disease. Dyslipidemia Hypertension H/O alpha-1 antitrypsin deficiency-associated COPD, managed by Pulmonology History of chronic kidney disease Discussion and Recomendations * Pt was seen this morning by Paul Cabello APRN of our Cardiology Service. We discussed the case and made recommendations for treatment of heart failure * When I saw the the patient this evening, the patient was still unresponsive and family had decided on comfort care only. I spoke with her daughter who was by her bedside and answered CV-related questions CHRISTY DELGADO MD FACP FACC CCDS Dec 16, 2022 18:36
[2022-12-16] MEDS ORDERED: MUPIROCIN 2% OINT 22 GM (BACTROBAN) TUBE TOP SCH (21:00)
[2022-12-17] MEDS ORDERED: VANCOMYCIN 1250 MG/NS 250 ML PREMIX IV SCH (17:00)
== END 2022-12-16 23:32 | disposition expired | DRG 871 ==
LOC: EDUNIT# 14:21 → ER 14:23 → ICU 21:45 → 4TH 12-16 18:37
PROVIDERS: ADMIT Internal Medicine; ATTEND Internal Medicine
PROC: 02H633Z Insertion of Infusion Device into Right Atrium, Percutaneous Approach (ICD-10-PCS; principal; 2022-12-15)
DX: A41.9 Sepsis, unspecified organism (principal); I21.A1 Myocardial infarction type 2; I50.23 Acute on chronic systolic (congestive) heart failure; N39.0 Urinary tract infection, site not specified; I13.0 Hypertensive heart and chronic kidney disease with heart failure and stage 1 through stage 4 chronic kidney disease, or unspecified chronic kidney disease; I48.92 Unspecified atrial flutter; E87.1 Hypo-osmolality and hyponatremia; Z66 Do not resuscitate; Z51.5 Encounter for palliative care; Z20.822 Contact with and (suspected) exposure to COVID-19; K11.21 Acute sialoadenitis; N18.9 Chronic kidney disease, unspecified; B37.2 Candidiasis of skin and nail; I95.9 Hypotension, unspecified; J44.9 Chronic obstructive pulmonary disease, unspecified; I48.91 Unspecified atrial fibrillation; E78.00 Pure hypercholesterolemia, unspecified; F03.90 Unspecified dementia, unspecified severity, without behavioral disturbance, psychotic disturbance, mood disturbance, and anxiety; F41.9 Anxiety disorder, unspecified; H91.90 Unspecified hearing loss, unspecified ear; Z86.711 Personal history of pulmonary embolism; Z95.0 Presence of cardiac pacemaker; Z79.82 Long term (current) use of aspirin; Z79.899 Other long term (current) drug therapy; Z88.5 Allergy status to narcotic agent
CPT/HCPCS: 36415; 36600; 51702; 70450; 70491; 71045; 71275; 80053; 80061; 81000; 82805; 82947; 83605; 83735; 83874; 83880; 84100; 84484; 85007; 85025; 85027; 85610; 85730; 86141; 87040; 87077; 87081; 87088; 87186; 87636; 93005; 93041; 93306; 94760